=== PATIENT | male | born 1940 | race Caucasian/White ===

== ENCOUNTER → 2017-06-17 12:11 | Outpatient (CLI) | payer MEDICARE, OTHER, SELFPAY ==
--- NOTE | 2017-06-17 12:16 | RAD_ITS ---
STUDY: X-RAY - RIGHT HAND REASON FOR EXAM: Male, 76 years old. Swelling, redness TECHNIQUE: 3 view(s) of the hand. COMPARISON: None. FINDINGS: The bones are demineralized. Normal distal radioulnar joint. Normal visualized carpal bones. Normal carpal articulations Normal carpometacarpal articulation of the thumb. Normal second through fifth carpometacarpal joints. Normal metacarpi. There is soft tissue swelling at the metacarpal phalangeal joint of the thumb. Normal interphalangeal joint of the thumb. Normal proximal and distal phalanges of the thumb. Normal metacarpophalangeal joints of the second through fifth fingers. Normal proximal and distal interphalangeal joints of the second through fifth fingers. There is a small bony erosion at the base of the proximal third phalanx. There may be a small erosion along the radial and distal aspect of the proximal third phalanx. Mild joint space narrowing is seen within the interphalangeal joints. There is soft tissue swelling of the third digit. RAD/Hand Min 3 Views IMPRESSION: Osteopenia without acute fracture. Findings suggest erosive arthropathy within the third finger. Mild interphalangeal joint space narrowing. Electronically Signed: Trung Gonzalez DO at 11:37 EDT Tel , Service support ,
== END ==
PROVIDERS: Family Provider Internal Medicine; PCP Internal Medicine; Visit Provider Internal Medicine
DX: M79.641 Pain in right hand (principal)
CPT/HCPCS: 73130

== ENCOUNTER → 2017-06-24 09:52 | Outpatient (CLI) | payer MEDICARE, OTHER, SELFPAY ==
--- NOTE | 2017-06-24 09:54 | NM_ITS ---
CLINICAL: 76-year-old male with reported history of elevation of the serum parathyroid hormone level. 99m Tc SESTAMIBI DUAL PHASE PARATHYROID SCINTIGRAPHY COMPARISON: None available FINDINGS: Following the intravenous administration of 25.4 mCi of 99m Tc sestamibi, image acquisitions of the anterior neck at approximately 15 minutes and 2.0 hours post radiopharmaceutical provision reveal: 1. Immediate static blood pool acquisitions demonstrate visualization of the right-left thyroid colloid in a U-shaped thyroid gland. A focus of increased tracer concentration is noted in the region of the right superior mediastinum caudal to the thyroid isthmus. 2. Delayed images depict washout of the radiopharmaceutical from the previously defined right-left thyroid colloid. There is persistent uptake noted. NM/Parathyroid Scan IMPRESSION: 1. 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 2. No other definitive scintigraphic abnormalities are defined. Electronically Signed: Rickie Mcelroy DO at 11:28 EDT Tel , Service support ,
== END ==
PROVIDERS: Family Provider Internal Medicine; PCP Internal Medicine; Visit Provider Internal Medicine
DX: E34.9 Endocrine disorder, unspecified (principal)
CPT/HCPCS: 78070; A9500

== ENCOUNTER → 2017-07-21 15:19 | Outpatient (CLI) | payer MEDICARE, OTHER, SELFPAY ==
[2017-07-21 17:49] LABS: Absolute Neutrophil Count 6.5 X10^3/uL (2.0-7.7); Basophil# 0.03 X10^3/uL; Basophil% 0.3 % (0-1); Eosinophil# 0.19 X10^3/uL; Eosinophils% 2.1 % (0-5); Hematocrit 42.6 % (40-54); Hemoglobin 13.6 g/dl (13.0-16.5); Lymphocyte % 14.4 % (19-41); Mean Corp Hgb Conc 31.9 g/gl (32-36); Mean Corpuscular Hgb 29.3 pg (27.0-32.0); Mean Corpuscular Volume 91.8 fL (80-94); Monocyte# 0.92 X10^3/uL; Monocyte% 10.2 % (0-10); Neutrophil # 6.54 X10^3/uL (2.7-7.7); Neutrophil % 72.7 % (47-70); Platelet Count 221 K/mm3 (150-450); RBC Distribution Width CV 14.7 % (11.6-14.6); RBC Distribution Width SD 48.2 fl (35.1-43.9); Red Blood Count 4.64 M/mm3 (4.6-6.2)
[2017-07-21 17:56] LABS: POSITIVE COUNT NO; POSITIVE DIFFERENTIAL NO; POSITIVE MORPHOLOGY NO
[2017-07-21 18:12] LABS: ALB/GLOB Ratio 0.9 RATIO (0.9-2.4); AST(SGOT) 19 U/L (15-37); Alanine Aminotransfer ALT/SGPT 20 U/L (16-61); Albumin, Serum 3.6 g/dL (3.2-5.0); Alkaline Phosphatase 90 U/L (45-117); Anion Gap 9 (5-15); BUN 23 mg/dL (7-18); BUN/Creat Ratio 15.6 RATIO (10-20); Calcium,Total 8.8 mg/dL (8.5-10.1); Chloride 106 mmol/L (98-107); Creatinine, Serum 1.47 mg/dL (0.70-1.30); EST Glomerular Filtration Rate 50 mL/min (>60); Est Glom Filt Rate - Afr Amer 60 mL/min (>60); Globulin 3.9 g/dL (2.2-4.2); Glucose 104 mg/dL (74-106); Potassium 3.6 mmol/L (3.5-5.1); Protein, Total 7.5 g/dL (6.4-8.2); Rheumatoid Factor < 10.0 IU/mL (<15); Sodium Level 143 mmol/L (136-145); Uric Acid 10.7 mg/dL (3.5-7.2)
[2017-07-21 18:39] LABS: Erythrocyte Sedimentation Rate 18 mm/hr (0-20)
[2017-07-24 13:20] LABS: CCP IgG Antibodies 8 units (0-19); HEPATITIS B SURFACE AG Negative (Negative); Hep B Surface Antibodies Non Reactive (.); Hep C Antibodies <0.1 s/co ratio (0.0-0.9)
== END ==
PROVIDERS: Family Provider Internal Medicine; PCP Internal Medicine; Visit Provider Internal Medicine Rheumatology
DX: M06.4 Inflammatory polyarthropathy (principal); M1A.9XX1 Chronic gout, unspecified, with tophus (tophi); N18.9 Chronic kidney disease, unspecified; I25.10 Atherosclerotic heart disease of native coronary artery without angina pectoris; I50.20 Unspecified systolic (congestive) heart failure; I48.91 Unspecified atrial fibrillation; I12.9 Hypertensive chronic kidney disease with stage 1 through stage 4 chronic kidney disease, or unspecified chronic kidney disease; E78.5 Hyperlipidemia, unspecified; N40.1 Benign prostatic hyperplasia with lower urinary tract symptoms; I69.30 Unspecified sequelae of cerebral infarction; M15.9 Polyosteoarthritis, unspecified; M21.40 Flat foot [pes planus] (acquired), unspecified foot; Z95.1 Presence of aortocoronary bypass graft
CPT/HCPCS: 36415; 80053; 84550; 85025; 85652; 86140; 86200; 86431; 86706; 86803; 87340

== ENCOUNTER → 2017-08-20 15:21 | Outpatient (CLI) | payer MEDICARE, OTHER, SELFPAY ==
--- NOTE | 2017-08-20 15:25 | RAD_ITS ---
STUDY: X-RAY - RIGHT HAND REASON FOR EXAM: Male, 76 years old. Pain TECHNIQUE: 3 view(s) of the hand. COMPARISON: FINDINGS: The bones are demineralized. Normal distal radioulnar joint. Normal visualized carpal bones. Normal carpal articulations Normal carpometacarpal articulation of the thumb. Normal second through fifth carpometacarpal joints. Normal metacarpi. There is soft tissue swelling at the metacarpal phalangeal joint of the thumb. Normal interphalangeal joint of the thumb. Normal proximal and distal phalanges of the thumb. Normal metacarpophalangeal joints of the second through fifth fingers. Normal proximal and distal interphalangeal joints of the second through fifth fingers. There is a small bony erosion at the base of the proximal third phalanx. There may be a small erosion along the radial and distal aspect of the proximal third phalanx. Mild joint space narrowing is seen within the interphalangeal joints. There is soft tissue swelling of the third digit. There is little significant interval change since the previous study. The degenerative changes are slightly more severe in the left hand and wrist than the right. RAD/Hand Min 3 Views IMPRESSION: Osteopenia without acute fracture. Findings suggest erosive arthropathy within the third finger. Mild interphalangeal joint space narrowing. Electronically Signed: Lalo Crisostomo MD at 10:08 EDT , Service support ,
--- NOTE | 2017-08-20 15:25 | RAD_ITS ---
STUDY: X-RAY - LEFT HAND REASON FOR EXAM: Male, 76 years old. Pain and swelling, decreased range of motion TECHNIQUE: 3 view(s) of the hand. COMPARISON: None. FINDINGS: There is joint space narrowing of the radiocarpal articulation consistent with degenerative arthrosis. Normal distal radioulnar joint. There is diffuse demineralization of the carpal bones. There is mild intracarpal arthrosis. There is degenerative arthrosis of the carpometacarpal (CMC) articulation of the thumb. Normal second through fifth carpometacarpal joints. Normal metacarpi. There is degenerative arthrosis of the metacarpophalangeal (MCP) joints. There is moderate arthrosis of the interphalangeal joint of the thumb with subchondral erosions on both the proximal and distal phalanges. Moderate to severe PIP and DIP joint arthrosis in the second to the fifth fingers. All joint spaces show subchondral erosions on both sides of the joint space, most affected joint spaces include the DIP joint of the third digit, and PIP joint of the fifth digit. No demonstrated fracture, or suspicious soft tissue swelling. RAD/Hand Min 3 Views IMPRESSION: Polyarticular arthrosis as described, most affected joint spaces include the interphalangeal joint of the thumb, the DIP joint of the third digit, and PIP joint of the fifth finger. Electronically Signed: Lalo Crisostomo MD at 10:07 EDT , Service support ,
--- NOTE | 2017-08-20 15:25 | RAD_ITS ---
STUDY: X-RAY - RIGHT KNEE REASON FOR EXAM: Male, 76 years old. Pain TECHNIQUE: 4 view(s) of the knee. COMPARISON: None. FINDINGS: There is demineralization of the visualized distal femur. There is demineralization of the tibia and fibula. Normal proximal tibiofibular articulation. There is severe degenerative arthrosis of the medial femorotibial compartment with severe joint space narrowing. There is mild degenerative arthrosis of the lateral femorotibial compartment. There is moderate degenerative arthrosis of the patellofemoral articulation. Postsurgical changes noted in the medial soft tissues, likely from vein harvest. RAD/Knee 4 or More Views IMPRESSION: Degenerative arthrosis. Electronically Signed: Lalo Crisostomo MD at 10:09 EDT , Service support ,
--- NOTE | 2017-08-20 15:25 | RAD_ITS ---
STUDY: X-RAY - LEFT KNEE REASON FOR EXAM: Male, 76 years old. Pain, decreased range of motion TECHNIQUE: 4 view(s) of the knee. COMPARISON: 12/08/2016 FINDINGS: Normal visualized distal femur. Normal visualized proximal tibia and fibula. Normal proximal tibiofibular articulation. There is moderate to severe degenerative arthrosis of the medial femorotibial compartment with moderate joint space narrowing. There is mild degenerative arthrosis of the lateral femorotibial compartment. There is moderate degenerative arthrosis of the patellofemoral articulation. Mild soft tissue swelling. RAD/Knee 4 or More Views IMPRESSION: Degenerative arthrosis. Electronically Signed: Lalo Crisostomo MD at 10:12 EDT , Service support ,
== END ==
PROVIDERS: Family Provider Internal Medicine; PCP Internal Medicine; Visit Provider Internal Medicine Rheumatology
DX: M06.4 Inflammatory polyarthropathy (principal); M1A.9XX1 Chronic gout, unspecified, with tophus (tophi); I25.10 Atherosclerotic heart disease of native coronary artery without angina pectoris; Z95.1 Presence of aortocoronary bypass graft; I50.20 Unspecified systolic (congestive) heart failure; I48.91 Unspecified atrial fibrillation; I10 Essential (primary) hypertension; E78.5 Hyperlipidemia, unspecified; N40.1 Benign prostatic hyperplasia with lower urinary tract symptoms; I69.30 Unspecified sequelae of cerebral infarction; M15.9 Polyosteoarthritis, unspecified; M21.40 Flat foot [pes planus] (acquired), unspecified foot
CPT/HCPCS: 73130; 73564

== ENCOUNTER → 2017-10-19 15:36 | Outpatient (CLI) | payer MEDICARE, OTHER, SELFPAY ==
[2017-10-19 18:08] LABS: Basophil# 0.04 X10^3/uL; Basophil% 0.6 % (0-1); Eosinophil# 0.24 X10^3/uL; Eosinophils% 3.7 % (0-5); Hematocrit 40.1 % (40-54); Hemoglobin 13.1 g/dl (13.0-16.5); Lymphocyte % 21.8 % (19-41); Mean Corp Hgb Conc 32.7 g/gl (32-36); Mean Corpuscular Volume 91.8 fL (80-94); Monocyte# 0.69 X10^3/uL; Monocyte% 10.7 % (0-10); Neutrophil # 4.04 X10^3/uL (2.7-7.7); Platelet Count 167 K/mm3 (150-450); RBC Distribution Width CV 13.5 % (11.6-14.6); RBC Distribution Width SD 44.5 fl (35.1-43.9); Red Blood Count 4.37 M/mm3 (4.6-6.2); White Blood Count 6.4 K/mm3 (4.4-11.0)
[2017-10-19 18:17] LABS: ALB/GLOB Ratio 0.9 RATIO (0.9-2.4); AST(SGOT) 21 U/L (15-37); Alanine Aminotransfer ALT/SGPT 23 U/L (16-61); Albumin, Serum 3.5 g/dL (3.2-5.0); Alkaline Phosphatase 97 U/L (45-117); Anion Gap 8 (5-15); BUN 26 mg/dL (7-18); BUN/Creat Ratio 15.3 RATIO (10-20); Calcium,Total 8.5 mg/dL (8.5-10.1); Chloride 102 mmol/L (98-107); EST Glomerular Filtration Rate 42 mL/min (>60); Est Glom Filt Rate - Afr Amer 51 mL/min (>60); Globulin 3.8 g/dL (2.2-4.2); Glucose 145 mg/dL (74-106); Potassium 3.7 mmol/L (3.5-5.1); Protein, Total 7.3 g/dL (6.4-8.2); Sodium Level 140 mmol/L (136-145); Uric Acid 9.1 mg/dL (3.5-7.2)
[2017-10-19 18:20] LABS: POSITIVE COUNT NO; POSITIVE DIFFERENTIAL NO; POSITIVE MORPHOLOGY NO
== END ==
PROVIDERS: Family Provider Internal Medicine; PCP Internal Medicine; Visit Provider Internal Medicine Rheumatology
DX: M06.4 Inflammatory polyarthropathy (principal); M1A.9XX1 Chronic gout, unspecified, with tophus (tophi); I13.0 Hypertensive heart and chronic kidney disease with heart failure and stage 1 through stage 4 chronic kidney disease, or unspecified chronic kidney disease; N18.9 Chronic kidney disease, unspecified; I50.20 Unspecified systolic (congestive) heart failure; I25.10 Atherosclerotic heart disease of native coronary artery without angina pectoris; I48.91 Unspecified atrial fibrillation; E78.5 Hyperlipidemia, unspecified; N40.1 Benign prostatic hyperplasia with lower urinary tract symptoms; I69.30 Unspecified sequelae of cerebral infarction; M15.9 Polyosteoarthritis, unspecified; M21.40 Flat foot [pes planus] (acquired), unspecified foot
CPT/HCPCS: 36415; 80053; 84550; 85025

== ENCOUNTER → 2017-12-02 15:45 | Outpatient (CLI) | payer MEDICARE, OTHER, SELFPAY ==
[2017-12-02 17:39] LABS: Absolute Lymphocyte Count 1.37 X10^3/ul (0.83-4.51); Absolute Neutrophil Count 4.9 X10^3/uL (2.0-7.7); Basophil# 0.03 X10^3/uL; Basophil% 0.4 % (0-1); Eosinophil# 0.21 X10^3/uL; Eosinophils% 2.9 % (0-5); Hematocrit 40.5 % (40-54); Hemoglobin 12.9 g/dl (13.0-16.5); Lymphocyte # 1.37 X10^3/ul (4.0); Lymphocyte % 19.2 % (19-41); Mean Corp Hgb Conc 31.9 g/gl (32-36); Mean Corpuscular Hgb 29.7 pg (27.0-32.0); Mean Corpuscular Volume 93.3 fL (80-94); Mean Platelet Vol. 10.7 fl (6.2-12.0); Monocyte# 0.65 X10^3/uL; Monocyte% 9.1 % (0-10); Neutrophil # 4.86 X10^3/uL (2.7-7.7); Neutrophil % 68.1 % (47-70); Platelet Count 179 K/mm3 (150-450); RBC Distribution Width CV 14.7 % (11.6-14.6); RBC Distribution Width SD 50.5 fl (35.1-43.9); Red Blood Count 4.34 M/mm3 (4.6-6.2); White Blood Count 7.1 K/mm3 (4.4-11.0)
[2017-12-02 17:49] LABS: POSITIVE COUNT NO; POSITIVE DIFFERENTIAL NO; POSITIVE MORPHOLOGY NO
[2017-12-02 18:09] LABS: ALB/GLOB Ratio 0.9 RATIO (0.9-2.4); AST(SGOT) 20 U/L (15-37); Alanine Aminotransfer ALT/SGPT 21 U/L (16-61); Albumin, Serum 3.6 g/dL (3.2-5.0); Alkaline Phosphatase 108 U/L (45-117); Anion Gap 12 (5-15); BUN 27 mg/dL (7-18); BUN/Creat Ratio 16.6 RATIO (10-20); Calcium,Total 8.7 mg/dL (8.5-10.1); Chloride 104 mmol/L (98-107); Creatinine, Serum 1.63 mg/dL (0.70-1.30); EST Glomerular Filtration Rate 44 mL/min (>60); Est Glom Filt Rate - Afr Amer 53 mL/min (>60); Globulin 3.8 g/dL (2.2-4.2); Glucose 108 mg/dL (74-106); Potassium 3.6 mmol/L (3.5-5.1); Protein, Total 7.4 g/dL (6.4-8.2); Sodium Level 142 mmol/L (136-145); Uric Acid 9.2 mg/dL (3.5-7.2)
== END ==
PROVIDERS: Family Provider Internal Medicine; PCP Internal Medicine; Visit Provider Internal Medicine Rheumatology
DX: M06.4 Inflammatory polyarthropathy (principal); M1A.9XX1 Chronic gout, unspecified, with tophus (tophi); I25.10 Atherosclerotic heart disease of native coronary artery without angina pectoris; I50.20 Unspecified systolic (congestive) heart failure; I48.91 Unspecified atrial fibrillation; I10 Essential (primary) hypertension; E78.5 Hyperlipidemia, unspecified; N40.1 Benign prostatic hyperplasia with lower urinary tract symptoms; I69.30 Unspecified sequelae of cerebral infarction; M21.40 Flat foot [pes planus] (acquired), unspecified foot
CPT/HCPCS: 36415; 80053; 84550; 85025

== ENCOUNTER → 2018-03-04 16:10 | Outpatient (CLI) | payer MEDICARE, OTHER, SELFPAY ==
[2018-03-04 17:11] LABS: Absolute Lymphocyte Count 0.99 X10^3/ul (0.83-4.51); Absolute Neutrophil Count 4.4 X10^3/uL (2.0-7.7); Basophil# 0.02 X10^3/uL; Basophil% 0.3 % (0-1); Eosinophil# 0.25 X10^3/uL; Hemoglobin 13.7 g/dl (13.0-16.5); Lymphocyte # 0.99 X10^3/ul (4.0); Lymphocyte % 15.8 % (19-41); Mean Corp Hgb Conc 31.9 g/gl (32-36); Mean Corpuscular Hgb 30.7 pg (27.0-32.0); Mean Corpuscular Volume 96.4 fL (80-94); Mean Platelet Vol. 10.8 fl (6.2-12.0); Monocyte# 0.61 X10^3/uL; Monocyte% 9.7 % (0-10); Neutrophil # 4.37 X10^3/uL (2.7-7.7); Neutrophil % 69.7 % (47-70); POSITIVE COUNT NO; POSITIVE DIFFERENTIAL NO; POSITIVE MORPHOLOGY NO; Platelet Count 202 K/mm3 (150-450); RBC Distribution Width CV 14.3 % (11.6-14.6); RBC Distribution Width SD 48.9 fl (35.1-43.9); Red Blood Count 4.46 M/mm3 (4.6-6.2); White Blood Count 6.3 K/mm3 (4.4-11.0)
[2018-03-04 17:28] LABS: AST(SGOT) 25 U/L (15-37); Alanine Aminotransfer ALT/SGPT 34 U/L (16-61); Albumin, Serum 3.6 g/dL (3.2-5.0); Alkaline Phosphatase 113 U/L (45-117); Anion Gap 9 (5-15); BUN 26 mg/dL (7-18); Calcium,Total 8.2 mg/dL (8.5-10.1); Chloride 102 mmol/L (98-107); Creatinine, Serum 1.53 mg/dL (0.70-1.30); EST Glomerular Filtration Rate 47 mL/min (>60); Est Glom Filt Rate - Afr Amer 57 mL/min (>60); Globulin 3.7 g/dL (2.2-4.2); Glucose 147 mg/dL (74-106); Potassium 3.3 mmol/L (3.5-5.1); Protein, Total 7.3 g/dL (6.4-8.2); Sodium Level 141 mmol/L (136-145); Uric Acid 7.7 mg/dL (3.5-7.2)
[2018-03-04 17:31] LABS: PTHIN 156.2 pg/mL (18.4-80.1)
[2018-03-04 17:32] LABS: Vitamin D,25 Hydroxy 22.6 ng/mL (29.95-100.01)
--- OUTSIDE RECORDS SUMMARY | 2018-04-29 15:44 | XMS RPT_ITS | Continuity of Care Document ---
:1940 Author Organization [facility] Address [facility] [address] [place] [address] Phone Care Team Providers Name Role Phone Neil DO Vicki Unavailable Milagro PHAN, Dr. Mohsen Mckenna Unavailable Physical [facility], [facility] Unavailable Lesa Alvarado Unavailable Dr. Juan Sin DO Unavailable [facility] Unavailable Kimo Roger MD Unavailable Mata Leonard Unavailable [facility] Unavailable Kamaljit PHAN, Dr. Joan Arechiga Unavailable CARYL Fonseca Unavailable Unavailable Long Minda HUTSON Unavailable Unavailable Israel Nelson Unavailable Unavailable Michel Heredia Unavailable Unavailable Unavailable Unavailable Problems Name Dates Details Abnormal brain MRI (793.0) Comments: possible aneurysm // also possible TIA-- pt on BB watch blood pressure diaries Status: Active Abnormal lung sounds (R09.89, 786.7) Status: Active Actinic keratosis (L57.0, 702.0) Status: Active Acute on chronic systolic heart failure (I50.23, 428.23) Comments: with anasarcaCheck daily weights.I/O on fluiddry weight 220 lbs at homeweight is 223 lbs today, was 219 lbs 2 days ago(Per pt he was not weighed) Status: Active Acute systolic congestive heart failure (I50.21, 428.21) Comments: echo 04/20 -- EF 40% and mild mitral insufficiency Status: Active AK (actinic keratosis) (L57.0, 702.0) Status: Active Annual Medicare Phyiscal WITHOUT abnormal findings (Renamed from Encounter for general adult medical examination without abnormal findings) (Z00.00, V70.9) Status: Active Annual Medicare Physical WITH abnormal findings (Renamed from Encounter for general adult medical examination with abnormal findings) (Z00.01, V70.0) Status: Active Apnea (R06.81, 786.03) Status: Active Atherosclerosis of [place] coronary artery without angina pectoris, unspecified whether [place] or transplanted heart (I25.10, 414.01) Status: Active Atrial fibrillation, chronic (I48.2, 427.31) Comments: rate controlled Status: Active Atrial fibrillation, unspecified type (I48.91, 427.31) Comments: rate controlledCABGX3, dx 04/20, Admitted in hospital july for 2 weeks for Afib., Gin: cardiovereted X1 in 07/19 for fluid on legs. 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) Comments: 10/17 last visit with surgeon and stents doing well-- took him off plavix Status: Active BMI 32.0-32.9,adult (Z68.32, V85.32) Status: Active BMI 34.0-34.9,adult (Z68.34, V85.34) Status: Active BMI 35.0-35.9,adult (Z68.35, V85.35) Status: Active BMI 35.0-35.9,adult (Z68.35, V85.35) Status: Active BPH (benign prostatic hyperplasia) (600.90) Status: Active BPH associated with nocturia (N40.1, 600.01) Status: Active Bronchitis (J40, 490) Status: Active Calculus of kidney (N20.0, 592.0) Status: Active Chronic anticoagulation (Z79.01, V58.61) Status: Active Chronic kidney disease, stage 3 (N18.3, 585.3) Status: Active 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, without long-term current use of insulin (E11.8, 250.90) Status: Active COPD, 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, 496) Comments: alpha one antitrypin defic screened 02/18 Status: Active Coronary artery disease, occlusive (I25.10, 414.00) Status: Active CVA (cerebral infarction) (434.91) Status: Active Diabetes mellitus without complication (Renamed from Diabetes mellitus with no complication) (E11.9, 250.00) Status: Active 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, 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) Status: Active Edema (R60.9, 782.3) Status: Active Edema extremities (R60.0, 782.3) Status: Active Elevated parathyroid hormone (E34.9, 259.9) Status: Active Elevated PSA (R97.20, 790.93) Status: Active Elevated PSA (R97.20, 790.93) Status: Active Encounter for Medicare annual wellness exam (Z00.00, V70.0) Status: Active Encounter for routine history and physical exam for male (Z00.00, V70.0) Status: Active Encounter for screening for malignant neoplasm of colon (Renamed from Special screening for malignant neoplasms, colon) (Z12.11, V76.51) Status: Active 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 (I13.0, 403.00) Status: Active Memory impairment (R41.3, 780.93) Comments: pt didnt want medication to slow progression Status: Active Mixed hyperlipidemia (E78.2, 272.2) Comments: past h/o not tolerating statins so doenst want to try another Status: Active Need for prophylactic vaccination and inoculation against influenza (Renamed from Need for immunization against influenza) (Z23, V04.81) Status: Active Need for vaccination against Streptococcus pneumoniae (Z23, V03.82) Status: Active Non morbid obesity, unspecified obesity type (E66.9, 278.00) Status: Active Nonsmoker (Z78.9, V49.89) Status: Active Nonsmoker (Z78.9, V49.89) Status: Active Nutritional counseling (Z71.3, V65.3) Status: Active Obesity, morbid (E66.01, 278.01) Status: Active Osteoarthritis of both knees, unspecified osteoarthritis type (M17.0, 715.96) Status: Active Other specified abnormal findings of blood chemistry (R79.89, 790.6) Comments: abn chemistry Status: Active Other urinary incontinence (N39.498, 788.39) Status: Active Pain in both knees, unspecified chronicity (M25.561, 719.46) Status: Active 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 not sure if dx valid -- dry tap and erosive oa on x-raydx yrs ago on tap it was dry -- no crystals to confirm but family h/o and dr told him they were going to make assumptions since dry tap Status: Active Renal insufficiency (N28.9, 593.9) Comments: stable for his chronic Status: Active Screening for prostate cancer (Z12.5, V76.44) Comments: due to see urology - dr mast/celine-- due jan 2018 Status: Active Shortness of breath on exertion (R06.02, 786.05) Status: Active Snores (R06.83, 786.09) Status: Active Swollen joint (M25.40, 719.00) Status: Active Therapeutic drug monitoring (Z51.81, V58.83) Status: Active Tonsillectomy Status: Active Unspecified Diagnosis Status: Active Unspecified Diagnosis Status: Active Unspecified Diagnosis Status: Active URI, acute (J06.9, 465.9) Status: Active Ventricular tachycardia (I47.2, 427.1) Status: Active Vitamin D deficiency (E55.9, 268.9) Comments: take vit D with K2 Status: Active Vitamin D deficiency, unspecified (E55.9, 268.9) 31-Jul-2010 Status: Active Medications Name Dates Details Bethanechol Chloride 50 MG Oral Tablet 2 (two) Tablet bid for 30 days Refills: 0 Ordered:02-Dec-2015 Fabiola Styles DO, DO, Kathleen Start : 02-Dec-2015 Active Cardizem CD 180 MG Oral Capsule Extended Release 24 Hour 1 (one) Capsule ER 24HR bid for 0 days Quantity: 180 {Capsule} Refills: 3 Ordered:28-Dec-2017 Fabiola Styles DO, DO, Kathleen Start : 28-Dec-2017 Active Cardizem CD 180 MG Oral Capsule Extended Release 24 Hour 1 (one) Capsule ER 24HR bid for 0 days Quantity: 60 {Capsule} Refills: 2 Ordered:28-Dec-2017 Fabiola Styles DO, DO, Kathleen Start : 28-Dec-2017 Active Citrical one daily Active Colchicine 0.5 MG Oral Tablet one daily (0.5 MG) Active Eliquis 2.5 MG Oral Tablet 1 (one) Tablet bid for 90 days Quantity: 180 {Tablet} Refills: 0 Ordered:30-Nov-2016 Fabiola Styles DO, DO, Kathleen Start : 30-Nov-2016 Active Fluticasone Propionate 50 MCG/ACT Nasal Suspension 2 (two) Sprays Sprays each nostril qd for 0 days Quantity: 1 {Container} Refills: 3 Ordered:02-Dec-2015 Fabiola Styles DO, DO, Kathleen Start : 02-Dec-2015 Active Lasix 40 MG Oral Tablet 1 (one) Tablet bid for 90 days Quantity: 180 {Tablet} Refills: 3 Ordered:28-Feb-2018 Fabiola Styles DO, DO, Kathleen Start : 28-Feb-2018 Active Lasix 40 MG Oral Tablet 1 (one) Tablet bid for 7 days Quantity: 14 {Tablet} Refills: 0 Ordered:28-Feb-2018 Fabiola Styles DO, DO, Kathleen Start : 28-Feb-2018 Active Lopressor 100 MG Oral Tablet 1 Tablet bid for 90 days Quantity: 180 {Tablet} Refills: 2 Ordered:28-Feb-2018 Jennyfer Arcos Start : 28-Feb-2018 Active Lopressor 100 MG Oral Tablet 1 Tablet bid for 0 days Quantity: 60 {Tablet} Refills: 3 Ordered:28-Feb-2018 Jennyfer Arcos Start : 28-Feb-2018 Active MetFORMIN HCl ER 500 MG Oral Tablet Extended Release 24 Hour 1 Tablet ER 24HR bid for 0 days Quantity: 60 {Tablet} Refills: 3 Ordered:17-Jun-2017 Fabiola Styles DO, DO, Kathleen Start : 17-Jun-2017 Active PROSCAR, 5MG (Oral Tablet) 1 (one) Tablet qd for 30 days Refills: 0 Ordered:24-Apr-2015 Fabiola Styles DO, DO, Kathleen Start : 24-Apr-2015 Active Tamsulosin HCl 0.4 MG Oral Capsule one daily (0.4 MG) Active Comments:[facility] AUGMENTIN, 875-125MG (Oral Tablet) 1 (one) Tablet bid for 0 days Quantity: 20 {Tablet} Refills: 0 Ordered:24-Apr-2015 Leora Fonseca LPN Start : 18-Apr-2015 End : 24-Apr-2015 Inactive MARINA, 10-40MG (Oral Tablet) 1 Tablet qd for 0 days Quantity: 90 {Tablet} Refills: 3 Ordered:23-Sep-2015 Fide Bell Start : 03-Sep-2014 End : 23-Sep-2015 Inactive MARINA, 10-40MG (Oral Tablet) 1 Tablet qd for 0 days Quantity: 30 {Tablet} Refills: 6 Ordered:23-Sep-2015 Fide Bell Start : 03-Sep-2014 End : 23-Sep-2015 Inactive BETHANECHOL CHLORIDE, 25MG (Oral Tablet) 1 (one) Tablet tid for 30 days Refills: 0 Ordered:24-Apr-2015 Leora Fonseca LPN Start : 23-Nov-2013 End : 24-Apr-2015 Inactive BYSTOLIC, 20MG (Oral Tablet) 1 Tablet qd for 90 days Quantity: 90 {Tablet} Refills: 3 Ordered:22-Aug-2015 Leora Fonseca LPN Start : 06-May-2015 End : 22-Aug-2015 Inactive Cardura XL 4 MG Oral Tablet Extended Release 24 Hour 1 Tablet ER 24HR qd for 30 days Quantity: 30 {Tablet} Refills: 6 Ordered:17-Jun-2017 Fabiola Styles DO, DO, Kathleen Start : 17-Jun-2017 End : 17-Jun-2017 Inactive Comments:on national back order DRISDOL, [id number] (Oral Capsule) 1 Capsule uad for 0 days Quantity: 8 {Capsule} Refills: 4 Ordered:21-Jan-2012 Leora Fonseca LPN Start : 31-Jul-2010 End : 21-Jan-2012 Inactive Comments:2 tabs q week x 4 mo and then 1 tab weekly ERGOCALCIFEROL, [id number] (Oral Capsule) 1 (one) Capsule tad for 0 days Quantity: 12 {Capsule} Refills: 1 Ordered:16-Oct-2009 Crystal Reyes Start : 28-Dec-2007 Inactive Comments:1 tab 2 x week for 2 weeks then 1 tab weekly for 8 weeks FLOMAX, 0.4MG (Oral Capsule) 1 Capsule bid for 30 days Quantity: 60 {Capsule} Refills: 3 Ordered:22-Aug-2015 Leora Fonseca LPN Start : 31-May-2015 End : 22-Aug-2015 Inactive GUAIATUSSIN AC, 100-10MG/5ML (Oral Syrup) 1 Syrup QHS / HS for 0 days Quantity: 90 {Syrup} Refills: 0 Ordered:24-Mar-2007 Crystal Reyes Start : 24-Mar-2007 End : 04-May-2007 Inactive HYDRALAZINE-HCTZ, 25-25MG (PO Tab) for 0 days Refills: 0 Ordered:16-May-2008 Crystal Reyes End : 27-Jan-2007 Inactive GORDO, 0.5-0.4MG (Oral Capsule) 1 Capsule qd for 0 days Quantity: 30 {Capsule} Refills: 6 Ordered:24-Apr-2015 Leora Fonseca LPN Start : 14-Feb-2013 End : 24-Apr-2015 Inactive LASIX, 20MG (Oral Tablet) 1 Tablet qd prn only for 0 days Quantity: 15 {Tablet} Refills: 0 Ordered:18-Apr-2015 Leora Fonseca LPN Start : 15-May-2013 End : 18-Apr-2015 Inactive LEVAQUIN, 500MG (Oral Tablet) 1 Tablet daily for 0 days Quantity: 10 {Tablet} Refills: 0 Ordered:19-Oct-2013 Minda Rojas LPN Start : 24-Aug-2013 End : 19-Oct-2013 Inactive LEVAQUIN, 750MG (Oral Tablet) 1 (one) Tablet Daily for 0 days Quantity: 5 {Tablet} Refills: 0 Ordered:19-Mar-2009 Leora Fonseca LPN Start : 19-Mar-2009 End : 25-Mar-2009 Inactive LOSARTAN POTASSIUM, 100MG (Oral Tablet) 1 (one) Tablet qd for 30 days Refills: 0 Ordered:22-Aug-2015 Leora Fonseca LPN Start : 24-Apr-2015 End : 22-Aug-2015 Inactive NASONEX, 50MCG/ACT (Nasal Suspension) 2 (two) Suspension each nostril daily for 0 days Quantity: 1 {Container} Refills: 0 Ordered:26-Jun-2015 Yoly Whitfield MD Start : 26-Jun-2015 End : 26-Jun-2015 Inactive NORVASC, 10MG (Oral Tablet) 1 (one) Tablet daily for 0 days Quantity: 30 {Tablet} Refills: 3 Ordered:14-Feb-2013 REILLY Moya Start : 21-Jan-2012 End : 14-Feb-2013 Inactive PLAVIX, 75MG (Oral Tablet) 1 Tablet qd for 0 days Quantity: 30 {Tablet} Refills: 6 Ordered:18-Apr-2015 Leora Fonseca LPN Start : 20-Mar-2013 End : 18-Apr-2015 Inactive PredniSONE 20 MG Oral Tablet 1 Tablet uad for 0 days Quantity: 9 {Tablet} Refills: 0 Ordered:09-Jul-2017 Leora Fonseca LPN Start : 21-Jun-2017 End : 09-Jul-2017 Inactive Comments:1 bid x 3 days and then 1 qd PROVENTIL HFA, 108 (90 Base)MCG/ACT (Inhalation Aerosol Solution) 2 (two) Aerosol Soln Twice daily for 0 days Quantity: 1 {Inhaler} Refills: 0 Ordered:24-Apr-2015 Leora Fonseca LPN Start : 24-Aug-2013 End : 24-Apr-2015 Inactive TEKTURNA, 150MG (Oral Tablet) 1 (one) Tablet Daily for 0 days Quantity: 30 {Tablet} Refills: 3 Ordered:16-Oct-2009 Crystal Reyes Start : 28-Dec-2007 Inactive TOPROL XL, 100MG (Oral Tablet Extended Release 24 Hour) 1 (one) Tablet ER 24HR QD for 0 days Quantity: 30 {Tablet_ER_24HR} Refills: 3 Ordered:19-Mar-2008 Crystal Reyes Start : 19-Mar-2008 End : 14-May-2008 Inactive VICODIN, 5-500MG (Oral Tablet) 1 Tablet q4-6 for 0 days Refills: 0 Ordered:21-Aug-2008 REILLY Moya Start : 21-Aug-2008 Inactive VITAMIN D3, [id number] (Oral Capsule) 1 Capsule 2 x week for 2 months then qweek for 0 days Quantity: 8 {Capsule} Refills: 5 Ordered:18-Apr-2015 Leora Fonseca LPN Start : 24-Aug-2013 End : 18-Apr-2015 Inactive WELCHOL, 625MG (Oral Tablet) 3 (three) Tablet bid for 0 days Quantity: 180 {Tablet} Refills: 3 Ordered:14-Feb-2013 REILLY Moya Start : 21-Jan-2012 End : 14-Feb-2013 Inactive ZETIA, 10MG (Oral Tablet) 1 (one) Tablet daily for 0 days Quantity: 30 {Tablet} Refills: 6 Ordered:18-Apr-2015 Leora Fonseca LPN Start : 20-Mar-2013 End : 18-Apr-2015 Inactive Dispense as Written ZOCOR, 20MG (Oral Tablet) 1 (one) Tablet QD for 0 days Quantity: 30 {Tablet} Refills: 0 Ordered:14-Feb-2013 REILLY Moya Start : 18-Jul-2012 End : 14-Feb-2013 Inactive Advair HFA 115-21 MCG/ACT Inhalation Aerosol 1 (one) Aerosol Aerosol bid for 0 days Quantity: 1 {Inhaler} Refills: 3 Ordered:04-Jun-2017 Sharon Wong Start : 04-Mar-2016 End : 04-Jun-2017 Discontinued ATORVASTATIN CALCIUM, 80MG (Oral Tablet) 1 Tablet qd for 0 days Quantity: 30 {Tablet} Refills: 6 Ordered:20-Mar-2013 Fabiola Styles DO, DO, Kathleen Start : 20-Mar-2013 End : 20-Mar-2013 Discontinued Comments:muscle aches AVAPRO, 300MG (Oral Tablet) 1 (one) Tablet QD for 0 days Refills: 0 Ordered:16-May-2008 Crystal Reyes Start : 01-Jan-2006 End : 27-Jan-2007 Discontinued Cordarone 200 MG Oral Tablet 1 (one) Tablet Tablet qd for 30 days Quantity: 30 {Tablet} Refills: 3 Ordered:04-Mar-2016 Fabiola Styles DO, DO, Kathleen Start : 04-Mar-2016 End : 04-Jun-2017 Discontinued Comments:This order discontinued per [facility]. DIOVAN HCT, 320-25MG (Oral Tablet) 1 (one) Tablet daily for 0 days Quantity: 30 {Tablet} Refills: 3 Ordered:05-Aug-2011 Fabiola Styles DO, DO, Kathleen Start : 05-Aug-2011 End : 05-Aug-2011 Discontinued Comments:jt pain ELIQUIS, 5MG (Oral Tablet) 1 (one) Tablet bid for 30 days Refills: 0 Ordered:25-Jul-2015 Fabiola Styles DO, DO, Kathleen Start : 25-Jul-2015 End : 25-Jul-2015 Discontinued GlipiZIDE ER 2.5 MG Oral Tablet Extended Release 24 Hour 1 (one) Tablet ER 24HR Tablet ER 24HR qd for 0 days Quantity: 90 {Tablet} Refills: 3 Ordered:04-Jun-2017 Sharon Wong Start : 30-Apr-2016 End : 04-Jun-2017 Discontinued HYDROCHLOROTHIAZIDE, 25MG (Oral Tablet) 1 (one) Tablet daily for 0 days Quantity: 30 {Tablet} Refills: 6 Ordered:20-Mar-2013 Fabiola Styles DO, DO, Kathleen Start : 20-Mar-2013 End : 20-Mar-2013 Discontinued Jardiance 10 MG Oral Tablet 1 (one) Tablet qd for 0 days Quantity: 30 {Tablet} Refills: 3 Ordered:17-Jun-2017 Neil Fabiola NG DO, Kathleen Start : 17-Jun-2017 End : 17-Jun-2017 Discontinued K-DUR, 10MEQ (Oral Tablet Extended Release) 1 (one) Tablet ER Daily for 0 days Quantity: 30 {Tablet_ER} Refills: 6 Ordered:04-Jul-2015 Leora Fonseca LPN Start : 04-Jul-2015 End : 22-Aug-2015 Discontinued Comments:This order discontinued per [facility]. LOTREL, 10-20MG (Oral Capsule) 1 (one) Capsule QD for 0 days Refills: 0 Ordered:16-May-2008 Crystal Reyes Start : 11-Oct-2006 End : 27-Jan-2007 Discontinued Comments:hold for assessing cough LOVAZA, 1GM (Oral Capsule) 4 Capsule Daily for 0 days Quantity: 120 {Capsule} Refills: 4 Ordered:11-Jul-2009 Mast Darling KING Start : 11-Jul-2009 End : 11-Jul-2009 Discontinued MetOLazone 2.5 MG Oral Tablet 1 (one) Tablet Tablet qd for 0 days Quantity: 3 {Tablet} Refills: 0 Ordered:07-Jan-2016 Chely Smith LPN Start : 10-Oct-2015 End : 07-Jan-2016 Discontinued Comments:take 1/2 hr prior to lasix Nystatin [id number] UNIT/ML Mouth/Throat Suspension 5 cc cc swish and swallow 5times a day for 0 days Quantity: 250 {Milliliter} Refills: 0 Ordered:04-Jun-2017 Sharon Wong Start : 17-Jan-2016 End : 04-Jun-2017 Discontinued Spiriva Respimat 2.5 MCG/ACT Inhalation Aerosol Solution 1 (one) Aerosol Soln Aerosol Soln qd for 0 days Quantity: 1 {Inhaler} Refills: 3 Ordered:04-Jun-2017 Sharon Wong Start : 04-Mar-2016 End : 04-Jun-2017 Discontinued Allergies and Adverse Reactions Name Dates Details Aspirin (Salicylates) (Allergy) Status: Active Sulfa Drugs (Allergy) Status: Active Comments: joint pain, chills, fever, flu like sx. Vicodin-rash (Allergy) Status: Active Past Medical History Name Dates Details Abnormal blood chemistry (R79.9, 790.6) Comments: improving Status: Inactive as of 04-Mar-2016 Acute on chronic diastolic congestive heart failure (I50.33, 428.33) Status: Inactive as of 04-Mar-2016 Ascites (R18.8, 789.59) Status: Inactive as of 04-Jun-2016 Atrial fibrillation (I48.91, 427.31) Comments: rate controlled Status: Resolved as of 21-Jan-2012 Bilateral edema of lower extremity (R60.0, 782.3) Comments: chronic 0- wax and wane Status: Inactive as of 09-Nov-2016 BMI 33.0-33.9,adult (Z68.33, V85.33) Status: Inactive as of 09-Nov-2016 BMI 35.0-35.9,adult (Z68.35, V85.35) Status: Inactive as of 17-Jun-2017 BMI 36.0-36.9,adult (Z68.36, V85.36) Status: Inactive as of 09-Nov-2016 BMI 37.0-37.9, adult (Z68.37, V85.37) Status: Inactive as of 09-Nov-2016 Bradycardia (R00.1, 427.89) Status: Inactive as of 09-Nov-2016 Bronchitis, acute (J20.9, 466.0) Status: Resolved as of 17-Aug-2008 Calf pain (M79.669, 729.5) Comments: foot pain and swelling Status: Resolved as of 17-Aug-2008 Chest pain (R07.9, 786.59) Comments: sounds MS Status: Resolved as of 27-Sep-2006 Chronic obstructive pulmonary disease (J44.9, 496) Comments: 6 min walk test already set up for dec or january Status: Inactive as of 04-Mar-2016 Coronary atherosclerosis of [place]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 (I25.10, 414.01) Comments: other stent to be placed 6 mo after first one so that would be 10/16 Status: Inactive as of 04-Mar-2016 Cough (R05, 786.2) Status: Resolved as of 17-Aug-2008 Diabetes mellitus type 2, uncontrolled, without complications (E11.65, 250.02) Status: Inactive as of 04-Mar-2016 Elbow mass, left (R22.32, 719.62) Comments: Consider MRI left elbow,, pt is seeing Dr CANALES 10/25/15mass in left elbowX 10 years, getting bigger slightly.Doesnt hurt.Per pt has been evaluated by orthopedics 9 years ago and was told it bur sitis Status: Inactive as of 04-Jun-2016 Fluid overload (E87.70, 276.69) Status: Inactive as of 09-Nov-2016 Gout, unspecified (M10.9, 274.9) Status: Inactive as of 22-Apr-2012 Hand pain, right (M79.641, 729.5) Status: Inactive as of 06-Sep-2017 Hyperlipidemia (E78.5, 272.4) Status: Inactive as of 04-Mar-2016 Hypernatremia (E87.0, 276.0) Status: Inactive as of 09-Nov-2016 Hypertensive heart disease (I11.9, 402.90) Status: Inactive as of 18-Jul-2012 Irregular heart beat (I49.9, 427.9) Status: Inactive as of 09-Nov-2016 Knee pain (M25.569, 719.46) 07-Jan-2010 Status: Inactive as of 22-Apr-2012 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 (I13.0, 401.0) Comments: gave catapress today Status: Inactive as of 18-Apr-2015 Myalgia and myositis (729.1) Comments: THINKS SECONDARY TO ZOCORI THINK 2 PROB MAYBE ZOCOR AND OA WITH REACTIVE MUSCLE PULL- KNOWN KNEE PROBLEMS Status: Resolved as of 17-Aug-2008 Neoplasm of uncertain behavior of skin (D48.5, 238.2) Status: Inactive as of 22-Apr-2012 Pain of hand, unspecified laterality (M79.643, 729.5) Status: Inactive as of 14-Jun-2009 Post-nasal drainage (R09.82, 473.9) Status: Inactive as of 09-Nov-2016 Short of breath on exertion (R06.02, 786.05) Status: Inactive as of 09-Nov-2016 Shortness of breath at rest (R06.02, 786.05) Status: Inactive as of 22-Apr-2012 Therapeutic drug monitoring (Z51.81, V58.83) Status: Inactive as of 09-Nov-2016 Thrush (B37.0, 112.0) Status: Inactive as of 09-Nov-2016 Wheezing (R06.2, 786.07) Comments: reactive airways Status: Resolved as of 17-Aug-2008 Procedures Procedure Dates Details stent placement Completed Comments: 11/16 Date Value Details 13-Jan-2018 Cardiology Visit Report Result: Comments: See Note; NOTES: [facility] [address] [place] [address]. [address] [place] [address] OFFICE VISIT Date of Service: 01/13/18 MR#: [id number] Acct: [id number] Name: RAMU DEWITT Rep #: [id number] : 1940 Provider: Jimi Greenfield MD Age/Sex: 77/M Location: [facility] [place] Status: Signed HPI HPI Chief Complaint: Follow up visit Details: RAMU DEWITT, is a 77 M who presents to the [facility] today for a cardiovascular outpatient follow-up. Patient has a history of coronary artery disease with bypass surgery 2003. He had a VILLEDA to LAD, SVG to circumflex, and SVG to posterior descending artery. He also has a history of atrial fibrillation s/p unsuccessful cardioversion in 2016, ischemic cardiomyopathy, pulmonary hypertension, hyperlipidemia, congestive heart failure, and sleep apnea. H khoi says that overall this year he has been doing quite well his major problem is related to arthritis. He has had no neck arm or jaw discomfort suggest angina no dizziness or diaphoresis no near syncope or syncope. He has been compliant with all his medications. And his physical exam demonstrates clear lung mccann irregular regular heart rate and no pedal edema his blood pressure is under good control. Intake Vital Signs01/13/18 Height 5 ft 6 in 01/13/18 Weight: 224 lb 01/13/18 Body Mass Index (BMI) 36.1 01/13/18 Blood Pressure 128/70 H 01/13/18 Blood Pressure Location Lt brachial Intake Visit Re asons: 6 M FU Desk Top Publisher Required: No Accompanied by: none Is patient in pain?: No Allergies aspirin Allergy (Intermediate, Verified 01/13/18 09:57) Swelling around eyes acetaminophen [From Vicodin] Adverse Reaction (Severe, Verified 01/13/18 09:57) Rash hydrocodone [From Vicodin] Adverse Reaction (Severe, Verified 01/13/18 09:57) Rash pseudoephedrine [From Sudafed] Adverse Reaction (Severe, Verifi ed 01/13/18 09:57) Myalgias AND flu like symptoms simvastatin [From Zocor] Adverse Reaction (Severe, Verified 01/13/18 09:57) Myalgias Sulfa (Sulfonamide Antibiotics) Adverse Reaction (Mild, Verified 09:57) Severe Pain in joints Medications Finasteride [Proscar] 5 mg PO DAILY 04/18/15 [History Confirmed 06/14/17] Furosemide [Lasix] 40 mg PO BID 07/09/15 [History Confirmed 01/13/18] Acetami nophen [Tylenol Tablet] 650 mg PO Q6H PRN PRN #20 tab 07/16/15 [Rx Confirmed 01/13/18] Bethanechol Chloride [Urecholine] 50 mg PO BID 12/08/16 [History Confirmed 01/13/18] Metoprolol Tartrate [Lopressor (beta evelin)] 100 mg PO BID 12/08/16 [History Confirmed 01/13/18] Diltiazem CD [Cardizem CD] 180 mg PO Q12 #90 cap 12/12/16 [Rx Confirmed 01/13/18] apixaban 2.5 mg tablet 2.5 mg PO BID #14 tab [Rx Confirmed 01/13/18] allopurinol 300 mg tablet 300 mg PO DAILY 01/13/18 [History Confirmed 01/13/18] colchicine 0.6 mg tablet 0.6 mg PO .mwf tab 01/13/18 [History Confirmed 01/13/18] doxazosin 4 m g tablet 4 mg PO DAILY 01/13/18 [History Confirmed 01/13/18] PFSH Medical History Atherosclerosis of [place] coronary artery of [place] heart without ang hernán pectoris (Chronic) Mitral valve insufficiency (Chronic) Localized edema (Resolved) Bilateral pleural effusion (Resolved) History of stroke (Chronic) Acute on chronic systolic (congestive) heart fail ure (Chronic) Hyperlipidemia (Chronic) 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) Ischemic cardiomyopathy (Chronic) FH: sudden cardiac (SCD) (Chronic) 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 of premature coronary heart disease (Blogs Manager akhil) BPH with urinary obstruction (Chronic) Noncompliance (Chronic) Diabetes mellitus type 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 (Chronic) Venous insufficiency (Chronic) HTN (hypertension) (Chronic) Atrial fibrillation (Chronic) Cardiomyopathy, ischemic (Chronic) AUDRA (obstructive sleep apnea) (Chronic) Mitral regurgitation (Chronic) Morbid obesity (Chronic) Chronic renal failure, stage 3 (moderate) (Chronic) Left knee pain (Res olved) Old myocardial infarction (Resolved) Surgical History S/P CABG (coronary artery bypass graft) (Chronic) Family History (Reviewed 01/13/18 @ 10: 17 by Jimi Greenfield MD) Father Sudden cardiac Sister Heart disease Sudden cardiac Father Sudden cardiac Social History Smoking Status: Never smoker alcohol intake: current alcohol int rosalva frequency: a few times a week Alcohol type: beer, wine, hard liquor substance use type: does not use caffeine: Yes Type: coffee what type of physical activity do you participate in: none seatbelt us e: sometimes do you feel safe at home: Yes ROS Const Const: Negative for fatigue, weakness, night sweats, excessive sweating, frequent falls, headache(s) or daytime sleepiness Eyes Eyes: Negative fo r loss of peripheral vision, transient loss of vision, blind spots, double vision or blurry vision ENT ENT: Negative for headache(s), dizziness, balance problems, Nosebleed/epistaxis, tongue swelling or lip swelling Cardio Chest Pain: No Palpitations: No Edema: None Muscle aches with walking: None Resp Respiratory: Negative for SOB at rest, SOB orthopnea\SOB lying down, Cough, paroxysmal nocturnal dys pnea or SOB with activity GI GI: Negative nausea, vomiting, heartburn, black,tarry stools or bright, red blood in stools : Negative for hematuria Musc Musc: Negative for balance problems, muscle ac hes/ myalgia, muscle weakness or joint pain Skin Skin: Negative non-healing lesions, unusual bruising or rash Neuro Neuro: Negative for weakness, frequent falls, headache(s), double vision, dizziness, l ightheadedness, orthostatic symptoms, blurry vision or lack of coordination Chau Hematologic/Lymphatic: Negative for easy bruising or easy bleeding Endo Endo: Negative for fatigue, excessive sweating, c old intolerance, heat intolerance, increased thirst/drinking or hair loss Psych Psych: Negative for anxiety or depression Allergy Allergy/Immunology: Negative for throat swelling, Negative for tongue sw elling, Negative for hives, Negative for rash, Negative for lip swelling Cardiology Exam Const Appearance: cooperative, healthy appearing, well developed, well groomed and no acute distress Nutritiona l Appearance: well nourished and average body habitus Orientation: alert, awake and oriented x3 Head Head: normal to inspection, normocephalic and atraumatic Ears: hearing grossly normal bilaterally and external ears normal Nose: external nose normal, nasal mucous membranes and turbinates normal, nares normal, septum normal, no nasal discharge Face and Sinus: face symmetric Mouth: oral mucosae normal, tongue normal, oropharynx normal and moist mucous membranes Teeth and gingiva: dentition normal Throat: posterior oropharynx normal, tonsils normal and uvula midline Eyes General: appearance normal, scott th eyes and all related structures Eyelids: eyelids normal Conjunctivae: conjunctivae normal Pupils: PERRL, normal by confrontation and accommodation normal EOM: EOM intact bilaterally Neck Neck: normal visual inspection, trachea midline and no JVD JVD: +5 Carotids: normal carotid upstroke and bounding pulses Chest Chest inspection: normal inspection of the chest, symmetric chest movement and normal r espiratory effort Auscultation: Bilateral: Clear to Auscultation Cardio Palpation: normal PMI Rhythm: irregular rhythm Heart sounds: S1 normal and S2 normal GI GI: normal to inspection, soft, no hepatos plenomegaly and bowel sounds present Neuro General: alert, awake, oriented x3, no focal sensory deficit, gait normal and moves all extremities Skin Skin: no rashes or lesions noted Extremities Pulses: N ormal: Right Femoral Pulse, Left Femoral Pulse, Right Dorsalis Pedis Pulse, Left Dorsalis Pedis Pulse, Right Posterior Tibial Pulse, Left Posterior Tibial Pulse, Right Radial Pulse, Left Radial Pulse Lo wer Extremity Edema: None: Bilateral Musculoskel Musculoskeletal: No joint tenderness Psych Psychological: normal affect Assessment AND Plan 1. Ischemic cardiomyopathy I25.5 Plan He does have a histor y of ischemic cardiomyopathy with his last ejection fraction estimated at 40%. He does not appear to be in as much heart failure he remains on the beta- evelin as well as the diuretic which he seems to be tolerating quite well. No changes will be made. 2. Essential hypertension I10 Plan He does have a history of essential hypertension which appears to be well controlled on his current medical therapy I do not think that we need to make any changes at this particular time. 3. S/P CABG (coronary artery bypass graft) Z95.1 CABG X 3, VILLEDA to LAD, SVG to lateral CX, SVG to right PDA; Plan He is status post carotid bypass surgery. His most recent stress test in May 2015 was negative for stress-induced ischemia. My recommendation will be for us to continue him on the same medications without gina ng any changes. 4. Persistent atrial fibrillation I48.1 Plan He does have chronic persistent atrial for ablation with a controlled ventricular response rate he remains on beta-evelin and calcium chann el evelin which appears to be keeping him at an average heart rate and preventing him from going to heart failure. He remains anticoagulated on his factor X inhibitor. 5. Mixed hyperlipidemia E78.2 Pl an He does have a history of hyperlipidemia and will remain on no medications at this time. We will continue to monitor his lipid profile carefully. Plan Detail 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 (r) Coding Level of Care Code Off vis,est,level 3 Diagnoses Ischemic cardiomyopathy I25.5 Essential hypertension I10 Hypertension type: essential hypertension S/P CABG (coronary artery bypass graft) Z95.1 Persistent at rial fibrillation I48.1 Atrial fibrillation type: persistent Mixed hyperlipidemia E78.2 Hyperlipidemia type: mixed hyperlipidemia Coding Level of Care Code Off vis,est,level 3 Diagnoses Ischemic card iomyopathy I25.5 Essential hypertension I10 Hypertension type: essential hypertension S/P CABG (coronary artery bypass graft) Z95.1 Persistent atrial fibrillation I48.1 Atrial fibrillation type: persist ent Mixed hyperlipidemia E78.2 Hyperlipidemia type: mixed hyperlipidemia 01/13/18 1021 <Electronically signed by Jimi Greenfield MD> Date C marcie Greenfield MD Cosigner Signature: Date (if applicable) CC: Vicki Styles DO 20-Aug-2017 Hand Min 3 Views Result: Comments: See Note; NOTES: [facility] Imaging Services [address] [place] [address] Hand Min 3 Views MR#: [id number] Acct: [id number] Name: RAMU DEWITT Rep #: [id number] DO B: 1940 M 76 From: Andre Crisostomo MD PCP: Vicki Styles DO Status: REG CLI Study: Hand Min 3 Views Date of Exam: 08/20/17 Exam# [id number] Ordering Dr: Lesa Alvarado MD STUDY: X-RAY - LEFT HAND REASON FOR EXAM: Male, 76 years old. Pain and swelling, decreased range of motion TECHNIQUE: 3 view(s) of the hand. COMPARISON: None. FINDINGS: There is joint sp kameron narrowing of the radiocarpal articulation consistent with degenerative arthrosis. Normal distal radioulnar joint. There is diffuse demineralization of the carpal bones. There is mild intracarpal ar throsis. There is degenerative arthrosis of the carpometacarpal (CMC) articulation of the thumb. Normal second through fifth carpometacarpal joints. Normal metacarpi. There is degenerative arthrosis of the metacarpophalangeal (MCP) joints. There is moderate arthrosis of the interphalangeal joint of the thumb with subchondral erosions on both the proximal and distal phalanges. Moderate to severe PI P and DIP joint arthrosis in the second to the fifth fingers. All joint spaces show subchondral erosions on both sides of the joint space, most affected joint spaces include the DIP joint of the third d igit, and PIP joint of the fifth digit. No demonstrated fracture, or suspicious soft tissue swelling. RAD/Hand Min 3 Views IMPRESSION: Polyartic ular arthrosis as described, most affected joint spaces include the interphalangeal joint of the thumb, the DIP joint of the third digit, and PIP joint of the fifth finger. Electronically Signed: Daniel Crisostomo MD at 10:07 EDT , Service support , CC: Vicki Styles DO; Lesa Alvarado MD Hearing Aid Fitter: Signed 20-Aug-2017 Hand Min 3 Views Result: Comments: See Note; NOTES: [facility] Imaging Services [address] [place] [address] Hand Min 3 Views MR#: [id number] Acct: [id number] Name: RAMU DEWITT Rep #: [id number] DO B: 1940 M 76 From: Andre Crisostomo MD PCP: Vicki Styles DO Status: REG CLI Study: Hand Min 3 Views Date of Exam: 08/20/17 Exam# [id number] Ordering Dr: Lesa Alvarado MD STUDY: X-RAY - RIGHT CANO D REASON FOR EXAM: Male, 76 years old. Pain TECHNIQUE: 3 view(s) of the hand. COMPARISON: FINDINGS: The bones are demineralized. Normal distal radioulnar j oint. Normal visualized carpal bones. Normal carpal articulations Normal carpometacarpal articulation of the thumb. Normal second through fifth carpometacarpal joints. Normal metacarpi. There is sof t tissue swelling at the metacarpal phalangeal joint of the thumb. Normal interphalangeal joint of the thumb. Normal proximal and distal phalanges of the thumb. Normal metacarpophalangeal joints of the second through fifth fingers. Normal proximal and distal interphalangeal joints of the second through fifth fingers. There is a small bony erosion at the base of the proximal third phalanx. There may b e a small erosion along the radial and distal aspect of the proximal third phalanx. Mild joint space narrowing is seen within the interphalangeal joints. There is soft tissue swelling of the third digi t. There is little significant interval change since the previous study. The degenerative changes are slightly more severe in the left hand and wrist than the right. __ RAD/Hand Min 3 Views IMPRESSION: Osteopenia without acute fracture. Findings suggest erosive arthropathy within the third finger. Mild interphalangeal joint space narrowing. El ectronically Signed: Lalo Crisostomo MD at 10:08 EDT , Service support , CC: Vicki Styles DO; Lesa Alvarado MD Hearing Aid Fitter: Signed 20-Aug-2017 Knee 4 or More Views Result: Comments: See Note; NOTES: [facility] Imaging Services [address] [place] [address] Knee 4 or More Views MR#: [id number] Acct: [id number] Name: RAMU DEWITT Rep #: [id number] : 1940 [facility] From: Andre Crisostomo MD PCP: Vicki Styles DO Status: REG CLI Study: Knee 4 or More Views Date of Exam: 08/20/17 Exam# [id number] Ordering Dr: Lesa Alvarado MD STUDY: X-RAY - R IGHT KNEE REASON FOR EXAM: Male, 76 years old. Pain TECHNIQUE: 4 view(s) of the knee. COMPARISON: None. FINDINGS: There is demineralization of the visualized dist al femur. There is demineralization of the tibia and fibula. Normal proximal tibiofibular articulation. There is severe degenerative arthrosis of the medial femorotibial compartment with severe joint s pace narrowing. There is mild degenerative arthrosis of the lateral femorotibial compartment. There is moderate degenerative arthrosis of the patellofemoral articulation. Postsurgical changes noted in the medial soft tissues, likely from vein harvest. RAD/Knee 4 or More Views IMPRESSION: Degenerative arthrosis. Electronically Signed: Lalo Crisostomo MD at 10:09 EDT , Service support , CC: Vicki Styles DO; Lesa Alvarado MD Hearing Aid Fitter: Signed 20-Aug-2017 Knee 4 or More Views Result: Comments: See Note; NOTES: [facility] Imaging Services [address] [place] [address] Knee 4 or More Views MR#: [id number] Acct: [id number] Name: RAMU DEWITT Rep #: [id number] : 1940 M 76 From: Andre Crisostomo MD PCP: Vicki Styles DO Status: REG CLI Study: Knee 4 or More Views Date of Exam: 08/20/17 Exam# [id number] Ordering Dr: Lesa Alvarado MD STUDY: X-RAY - L EFT KNEE REASON FOR EXAM: Male, 76 years old. Pain, decreased range of motion TECHNIQUE: 4 view(s) of the knee. COMPARISON: 12/08/2016 FINDINGS: Normal visualized d istal femur. Normal visualized proximal tibia and fibula. Normal proximal tibiofibular articulation. There is moderate to severe degenerative arthrosis of the medial femorotibial compartment with moder ate joint space narrowing. There is mild degenerative arthrosis of the lateral femorotibial compartment. There is moderate degenerative arthrosis of the patellofemoral articulation. Mild soft tissue sw elling. RAD/Knee 4 or More Views IMPRESSION: Degenerative arthrosis. Electronically Signed: Lalo Crisostomo MD at 10:12 EDT Tel , Service support , CC: Vicki Styles DO; Lesa Alvarado MD Hearing Aid Fitter: Signed 24-Jun-2017 Parathyroid Scan Result: Comments: See Note; NOTES: [facility] Imaging Services [address] [place] [address] Parathyroid Scan MR#: [id number] Acct: [id number] Name: RAMU DEWITT Rep #: [id number] DO B: 1940 M 76 From: Rickie Mcelroy DO PCP: Vicki Styles DO Status: REG CLI Study: Parathyroid Scan Date of Exam: 06/24/17 Exam# [id number] Ordering Dr: Vicki Styles DO CLINICAL: 76-year-old male with reported history of elevation of the serum parathyroid hormone level. 99m Tc SESTAMIBI DUAL PHASE PARATHYROID SCINTIGRAPHY COMPARISON: None available FINDINGS: Following the intravenous ad ministration of 25.4 mCi of 99m Tc sestamibi, image acquisitions of the anterior neck at approximately 15 minutes and 2.0 hours post radiopharmaceutical provision reveal: 1. Immediate static blood pool acquisitions demonstrate visualization of the right-left thyroid colloid in a U-shaped thyroid gland. A focus of increased tracer concentration is noted in the region of the right superior mediastinum caudal to the thyroid isthmus. 2. Delayed images depict washout of the radiopharmaceutical from the previously defined right-left thyroid colloid. There is persistent uptake noted. NM/Parathyroid Scan IMPRESSION: 1. 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 2. No other d efinitive scintigraphic abnormalities are defined. Electronically Signed: Rickie Mcelroy DO at 11:28 EDT Tel , Service support , CC: Vicki Styles DO Hearing Aid Fitter: Signed 17-Jun-2017 Hand Min 3 Views Result: Comments: See Note; NOTES: [facility] Imaging Services [address] [place] [address] Hand Min 3 Views MR#: [id number] Acct: [id number] Name: DEWITTRAMU Rep #: [id number] DO B: 1940 M 76 From: Trung Gonzalez DO PCP: Vicki Styles DO Status: REG CLI Study: Hand Min 3 Views Date of Exam: 06/17/17 Exam# [id number] Ordering Dr: Vicki Styles DO STUDY: X-RAY - RIGH T HAND REASON FOR EXAM: Male, 76 years old. Swelling, redness TECHNIQUE: 3 view(s) of the hand. COMPARISON: None. FINDINGS: The bones are demineralized. Normal di stal radioulnar joint. Normal visualized carpal bones. Normal carpal articulations Normal carpometacarpal articulation of the thumb. Normal second through fifth carpometacarpal joints. Normal metacar pi. There is soft tissue swelling at the metacarpal phalangeal joint of the thumb. Normal interphalangeal joint of the thumb. Normal proximal and distal phalanges of the thumb. Normal metacarpophalang eal joints of the second through fifth fingers. Normal proximal and distal interphalangeal joints of the second through fifth fingers. There is a small bony erosion at the base of the proximal third pha lanx. There may be a small erosion along the radial and distal aspect of the proximal third phalanx. Mild joint space narrowing is seen within the interphalangeal joints. There is soft tissue swelling of the third digit. RAD/Hand Min 3 Views IMPRESSION: Osteopenia without acute fracture. Findings suggest erosive arthropathy within the third fi nger. Mild interphalangeal joint space narrowing. Electronically Signed: Trung Gonzalez DO at 11:37 EDT Tel , Service support , CC: Samira Styles DO Hearing Aid Fitter: Signed 16-Jun-2017 Cardiology Visit Report Result: Comments: See Note; NOTES: [facility] [address] [place] [address] OFFICE VISIT Date of Service: 06/16/17 MR#: [id number] Acct: [id number] Name: RAMU DEWITT Rep #: [id number] : 1940 Provider: LUIS Sanders Age/Sex: 76/M Location: [facility] [place] Status: Signed HPI HPI Details: RAMU DEWITT, is a 76 M who presents to the office today for a cardiovascular o utpatient follow-up. Patient has a history of coronary artery disease with bypass surgery 2003. He had a VILLEDA to LAD, SVG to circumflex, and SVG to posterior descending artery. He also has a history of atrial fibrillation s/p unsuccessful cardioversion in 2016, ischemic cardiomyopathy, pulmonary hypertension, hyperlipidemia, congestive heart failure, and sleep apnea. Pt. states he has been out of his cardura for the last two months d/t shortage of it from the pharmacy. Pt. denies chest, arm, jaw, or neck discomfort. His exercise tolerance is stable though limited d/t arthritis. Pt. denies symptoms of CHF, palpitations, lightheadedness, dizziness, near syncope, or syncopal episodes. Pt. denies edema or claudication issues. Pt. denies orthopnea, PND, fever, chills, blood in urine, blood in stool, myalgia, or unexplainable fatigue. He uses oxygen at night instead of CPAP and will be undergoing further evaluation by PCP for this. Intake Vital Signs06/16/17 Height 5 ft 6 in 06/16/17 Weight: 214 l b 06/16/17 Body Mass Index (BMI) 34.5 06/16/17 Blood Pressure 130/68 06/16/17 Blood Pressure Location Lt brachial Intake Visit Reasons: 3 M Desk Top Publisher Required: No Accompanied by: None Is patient in pain?: Yes (FELICITY hands, arthritis) Pain scale (1-10): 5 Allergies aspirin Allergy (Intermediate, Verified 06/16/17 09:18) Swelling around eyes acetaminophen [From Vicodin] Adverse Reaction (Severe, V erified 06/16/17 09:18) Rash hydrocodone [From Vicodin] Adverse Reaction (Severe, Verified 06/16/17 09:18) Rash pseudoephedrine [From Sudafed] Adverse Reaction (Severe, Verified 06/16/17 09:18) Myalgias AND flu like symptoms simvastatin [From Zocor] Adverse Reaction (Severe, Verified 06/16/17 09:18) Myalgias Sulfa (Sulfonamide Antibiotics) Adverse Reaction (Mild, Verified 06/16/17 09:18) Severe Pain i n joints Medications Finasteride [Proscar] 5 mg PO DAILY 04/18/15 [History Confirmed 06/14/17] Furosemide [Lasix] 40 mg PO BID 07/09/15 [History Confirmed 06/14/17] Acetaminophen [Tylenol Tablet] 650 mg PO Q6H PRN PRN #20 tab 07/16/15 [Rx Confirmed 06/14/17] Bethanechol Chloride [Urecholine] 50 mg PO BID 12/08/16 [History Confirmed 06/14/17] Metoprolol Tartrate [Lopressor (beta evelin)] 100 mg PO BID 12/08/16 [History Confirmed 06/14/17] Diltiazem CD [Cardizem CD] 180 mg PO Q12 #90 cap 12/12/16 [Rx Confirmed 06/14/17] Hydrocodone Bitart/Apap 5-325 [[place] 5/325] 1 tab PO Q6H PRN PRN #30 tab 12/12 [Rx Confirmed 06/14/17] apixaban 2.5 mg tablet 2.5 mg PO BID #14 tab 04/08/17 [Rx Confirmed 06/14/17] Ejection fraction %: 40 to 44 PFSH Medical History History of stroke (Chronic) Old myocardia l infarction (Chronic) Acute on chronic systolic (congestive) heart failure (Chronic) Hyperlipidemia (Chronic) retirement use of drug (Chronic) Ischemic cardiomyopathy (Chronic) FH: sudden cardiac (SCD) (Chronic) 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 of premature coronary heart disease (Chronic) Edema (Chronic) Pleural effusion (Chronic) Diabetes mellitus type 2 in obese (Chronic) Venous insufficiency (Chronic) HTN (hy pertension) (Chronic) CAD (coronary artery disease) (Chronic) Atrial fibrillation (Chronic) Cardiomyopathy, ischemic (Chronic) AUDRA (obstructive sleep apnea) (Chronic) Mitral regurgitation (Chronic) Morb id obesity (Chronic) Surgical History S/P CABG (coronary artery bypass graft) (Chronic) Family History Fa ther Sudden cardiac Sister Heart disease Sudden cardiac Father Sudden cardiac Social History Smoking Status: Never smoker alcohol intake: current alcohol intake frequency: a few jayjay es a week Alcohol type: beer, wine, hard liquor substance use type: does not use caffeine: Yes Type: coffee what type of physical activity do you participate in: none seatbelt use: sometimes do you feel safe at home: Yes ROS Const Const: Negative for fatigue, weakness, body ache, fever(s) or chills ENT ENT: Negative for dizziness Cardio Chest Pain: No Palpitations: No Edema: None Muscle ache s with walking: None Resp Respiratory: Negative for SOB with activity, SOB at rest, SOB orthopnea\SOB lying down or paroxysmal nocturnal dyspnea GI GI: Negative nausea, black,tarry stools, bright, red b lood in stools or vomiting blood/hematemesis : Positive for frequent nighttime urination/ nocturia; negative for hematuria Musc Musc: Negative for muscle aches/ myalgia Neuro Neuro: Negative for we akness, dizziness, lightheadedness, near syncope, syncope or orthostatic symptoms Endo Endo: Negative for fatigue Cardiology Exam Const Appearance: cooperative, healthy appearing, comfortable and no a cute distress Orientation: alert, awake and oriented x3 Head Head: normal to inspection Mouth: oral mucosae normal Neck Neck: no JVD and normal visual inspection Carotids: normal carotid upstroke Chest Chest inspection: normal inspection of the chest and normal respiratory effort Auscultation: Bilateral: Clear to Auscultation Cardio Rate: regular rate Rhythm: irregularly irregular Heart sounds: S1 nor mal and S2 normal; negative rub or gallop GI GI: normal to inspection Neuro General: alert, awake, oriented x3 and CN's II-XI intact bilaterally Skin Skin: no rashes or lesions noted Extremities Pulses: Normal: Right Posterior Tibial Pulse, Left Posterior Tibial Pulse, Right Radial Pulse, Left Radial Pulse Lower Extremity Edema: None: Bilateral Psych Psychological: normal affect Supplemental Info Ec hocardiogram from December 2016 showed an estimated ejection fraction of 40%, mild tricuspid valve insufficiency, moderately enlarged left atrium, moderately enlarged right atrium, and an RSVP of 26 mm Hg. Nuclear stress test from May 2015 was negative for stress-induced myocardial ischemia. Assessment AND Plan 1. Cardiomyopathy, ischemic I25.5 TF in November 2015 is 40%. Plan - LUIS Jay Patient's most recent echocardiogram from December 2016 showed an estimated ejection fraction of 40%. Patient denies any shortness of breath or worsening lower extremity pedal edema. Patient does no say improved edema since he has adjusted his diet. Patient will continue current medications which include beta-eveiln and diuretic. 2. Atherosclerosis of [place] coronary artery of [place] heart witho ut angina pectoris I25.10 S/P CABG in 2003 with VILLEDA to LAD, SVG to LXC, and SVG posterior descending; Plan - TARIQ Jay Patient's most recent stress test from May 2015 was negative for str ess-induced myocardial ischemia. Patient denies any chest pain, arm pain, jaw pain, neck pain, shortness of breath, or fatigue suggestive of angina at this time. We will continue to monitor this. We shadia l not make any medication regimen changes and will continue risk factor modification. 3. Persistent atrial fibrillation I48.1 Chidi - TARIQ Jay Patient states he has not been on amiodarone thera py since his discharge from hospital in December 2016. His heart rate is well- controlled today in office. He was asked to continue to monitor his heart rate at home and contact our office if he notices if it increases and at that time we can consider further adjustment with medication if needed. Patient will also continue with factor Xa inhibitor. 4. Essential hypertension I10 Plan - LUIS Jay Though patient has been out of his Cardura, his blood pressure been well controlled. If his blood pressure increases or remains elevated we can investigate if Cardura is available at a different dosa ge. Patient would like to stick to Cardura due to both blood pressure and prostate benefits. At this time we will not make any changes and patient was instructed to contact our office if any concerns re garding his blood pressure. 5. Mixed hyperlipidemia E78.2 Plan - TARIQ Jay This is being evaluated/monitored by primary care physician. Patient is not on any cholesterol lowering medication. 6 . 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 Plan Detail Other Medications Discontinued: Additional Comments - TARIQ Jay Discussed t he above patient with Dr. Greenfield, he agrees with the plan of care. Thank you for allowing us to participate in the patients plan of care, if you have any questions please do not hesitate to call. This note was generated using a voice recognition system and there may be incorrect words, spelling or punctuation that were not noted when reviewing the office note prior to saving. 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) Coding Level of Care Code Off vis,est,level 3 Diagnoses Cardiomyopathy, ischemic I25.5 Atherosclerosis of [place] coronary artery of [place] heart without angina pectoris I25.10 Persistent atrial fibr illation I48.1 Atrial fibrillation type: persistent Essential hypertension I10 Hypertension type: essential hypertension Mixed hyperlipidemia E78.2 Hyperlipidemia type: mixed hyperlipidemia lobsterman us e of drug Z79.899 Coding Level of Care Code Off vis,est,level 3 Diagnoses Cardiomyopathy, ischemic I25.5 Atherosclerosis of [place] coronary artery of [place] heart without angina pectoris I25.10 Persi stent atrial fibrillation I48.1 Atrial fibrillation type: persistent Essential hypertension I10 Hypertension type: essential hypertension Mixed hyperlipidemia E78.2 Hyperlipidemia type: mixed hyperlipid emia retirement use of drug Z79.899 06/16/17 1139 <Electronically signed by Ramu POTTER> Date Ramu POTTER 06/16/17 1417&am p;#60;Electronically signed by Jimi Greenfield MD> Cosigner Signature: Date (if applicable) Jimi Greenfield MD CC: Vicki Styles DO 08-Dec-2016 Emergency Department Summary Result: Comments: See Note; NOTES: [facility] Medical Records Department [address] [place] [address] Emergency Department Summary 12/08/16 1354 MR#: [id number] Acct: [id number] Name: RAMU DEWITT Rep #: [id number] : 1940 75 From: Robe Mary MD PCP: Vicki Styles DO Status: REG ER - ER Visit Summary Date of Service: 12/08/16 Chief Complaint: Shortness of breath, genera lized weakness and difficulty maneuvering his residence History of Present Illness: The patient is a 75 M who has history of A. fib, CHF, diabetes, hypertension, hypercholesteremia, end-stage renal dis ease, benign prostatic hypertrophy, gout and A. fib presents because of deterioration of status. He apparently had a mechanical fall on Wednesday. Is now been able to maneuver in his house. He does compl ain of palpitations and shortness of breath. He does complain of swelling of his extremities. He denies any fever, chills or night sweats. Denies any visual, ocular or auditory symptoms. He denies any c hest discomfort. He denies abdominal pain, nausea, vomiting or diarrhea. He denies any urologic symptoms. He does complain of myalgias arthralgias. He also complains of swelling and abrasion to his left knee. Does report generalized weakness. Physical Examination: Next field vital signs remarkable heart rate 145. Respiratory 24. He has a saturation 94% on oxygen. He is not well groomed he is obese. H ead is atraumatic normocephalic. Pupils are equal round reactive. Extraocular muscles are intact. TMs are pearly white with landmarks noted. Nares patent with no drainage. Posterior pharynx without eryt chau or exudate. Uvula is midline. There is no dysphonia or dysphasia. Trachea is midline. There is no stridor with auscultation of the neck. Heart is rapid and regular. Lungs reveal rales bilaterally. Abdomen distended slightly tympanitic nontender. He does have pitting edema of the lower extremities. There is swelling left knee compared to the right. He does have full active range of motion with dis comfort. There is no laxity varus valgus stress testing. Modified Noelle's test negative. Zenaida's test negative. There is an abrasion over the knee. He is alert and oriented 3. Test Results: EKG A. fib RVR with premature ventricular beats versus a [place] C. Computer is reading acute inferior [place]. I am in disagreement. Chest x-ray reveals CHF with mild cardiomegaly. X-ray of the knee reveals no frac ture. There is a small effusion with mild degenerative changes. Blood work is marked for an H AND H 10.0 and 33.1. Glucose is 144 with a BUN and creatinine at 24 1.38. Troponin 0 0.03. BNP 1319. Emerge ncy Department Course and Treatment: Initially patient received 5 metoprolol because he informed me that was his rate controlling that. After contact his PCP was determined he is also on Cardizem and he received a dose of Cardizem. Because he is fluid overloaded he did receive Lasix IV push. Treatment Plan: Patient will need further treatment in the hospital and hospitalist has been called for admiss ion Disposition: Admit to monitored unit Impression: 1. A. fib with RVR 2. Exacerbation of CHF secondary #1 3. Hyperglycemia type II diabetic 4. History of hypertension 5. History of hypercholesterole kulwinder 6. Anemia 7. End-stage renal disease, stage III ED Disposition - Plan for ED Patient: Chief Complaint: Weakness Referrals: Vicki Styles, [Primary Care Provider] - What to do if you have Problems For any increased pain, shortness of breath, bleeding, nausea or vomiting, chest pain, or any unexpected problems, contact your Primary Care Provider. Call [facility] ([phone]) or r bethanyrt to the closest Emergency Room. Call 911 if necessary. 12/08/16 1718 <Electronically signed by Robe Mary MD> Date Robe Mary MD Cosigner Signature (If Indicated): Date CC: Jimi Greenfield MD; Vicki Styles DO 08-Dec-2016 Knee 1 or 2 Views Result: Comments: See Note; NOTES: [facility] Imaging Services [address] [place] [address] Knee 1 or 2 Views MR#: [id number] Acct: [id number] Name: DEWITTRAMU Rep #: [id number] D OB: 1940 M 75 From: Shahab Carlos MD PCP: Vicki Styles DO Status: REG ER Study: Knee 1 or 2 Views Date of Exam: 12/08/16 Exam# [id number] Ordering Dr: Robe Mary MD STUDY: X-RAY - LEFT K NEE REASON FOR EXAM: Male, 75 years old. Pain. TECHNIQUE: AP and lateral view(s) of the knee. COMPARISON: None. FINDINGS: Normal visualized distal femur. Normal v isualized proximal tibia and fibula. Normal proximal tibiofibular articulation. There is severe degenerative arthrosis of the medial femorotibial compartment with severe joint space narrowing. Normal l ateral femorotibial compartment. There is moderate degenerative arthrosis of the patellofemoral articulation. Chondrocalcinosis. Soft tissue swelling. Small joint effusion. RAD/Knee 1 or 2 Views IMPRESSION: Degenerative arthrosis. Soft tissue swelling. Small joint effusion. Electronically Signed: Shahab Carlos MD at 12:57 EDT Tel [phone], Service support , CC: Vicki Styles DO; Robe Mary MD Hearing Aid Fitter: Signed 08-Dec-2016 Chest 1 View (Portable) Result: Comments: See Note; NOTES: [facility] Imaging Services [address] [place] [address] Chest 1 View (Portable) MR#: [id number] Acct: [id number] Name: RAMU DEWITT Rep #: [id number] : 1940 M 75 From: Shahab Carlos MD PCP: Vicki Styles DO Status: REG ER Study: Chest 1 View (Portable) Date of Exam: 12/08/16 Exam# [id number] Ordering Dr: Robe Mary MD STUDY: X- RAY CHEST REASON FOR EXAM: Male, 75 years old. Dyspnea. TECHNIQUE: Single AP portable view of the chest. COMPARISON: Comparison is made with prior study dated January 07, 2016. FINDINGS: EKG electrodes are seen. A mild degree of vascular congestion in keeping with mild degree of CHF. There is no demonstrated pleural abnormality. Sternal cerclage wires and vascu lar clips are present from a prior sternotomy and coronary artery bypass graft procedure (CABG). Moderate cardiomegaly. Normal mediastinum and kath. Normal visualized pulmonary arteries. There is athero sclerotic calcification of the aortic arch with tortuosity. There are diffuse degenerative changes of the visualized thoracic spine. Normal visualized ribs, clavicles, and shoulders. There is no demon strated abnormality of the visualized soft tissue structures of the upper abdomen. RAD/Chest 1 View (Portable) IMPRESSION: Megaly. Mild degree of CHF. Electronically Signed: Shahab Carlos MD at 12:58 EDT Tel [phone], Service support , CC: Vicki Styles DO; Robe Mary MD Hearing Aid Fitter: Signed 07-Jan-2016 Chest 1 View (Portable) Result: Comments: See Note; NOTES: [facility] Imaging Services [address] [place] [address] Verdana 4d Chest 1 View (Portable) MR#: [id number] Acct: [id number] Name: RAMU DEWITT Rep #: [id number] : 1940 M 75 From: Shahab Carlos MD PCP: Vicki Styles DO Status: [facility] Study: Chest 1 View (Portable) Date of Exam: 01/07/16 Exam# [id number] Ordering Dr: Ron Buchanan MD STUDY: X-RAY CHEST REASON FOR EXAM: Male, 75 years old. Shortness of breath with exertion. TECHNIQUE: Single AP portable view of the chest. COMPARISON: Comparison is made with prior study da vasiliy July 09, 2015. FINDINGS: There is evidence of vascular congestion and mild CHF. Small bilateral effusions worse on the right side with underlying atelectasis. Sternal cerclage wires and vascular clips are present from a prior sternotomy and coronary artery bypass graft procedure (CABG). Normal mediastinum and kath. Normal visualized pulmonary arteries. Normal visualized aortic arch and descending thoracic aorta. There are diffuse degenerative changes of the visualized thoracic spine. Mild dextroscoliosis. Normal visualized ribs, clavicles, and shoulders. There is no demonstrated abnormality of the visualized soft tissue structures of the upper abdomen. RAD/Chest 1 View (Portable) IMPRESSION: Mild CHF with small bilateral pleural effusions right greater than left and bibasilar atelectasis. Electronically Signed: Shahab Carlos MD at 15:38 EDT Tel [phone], Service support , CC: Vicki Styles DO; Jerle Buchanan MD Hearing Aid Fitter: Signed 13-Nov-2015 Echocardiogram Complete Result: Comments: See Note; NOTES: [facility] Cardiovascular Services [address] [place] [address] Echo Complete 11/13/15 1006 MR#: [id number] Acct: [id number] Name: RAMU DEWITT Rep #: [id number] : 1940 74 From: Jimi Greenfield MD Attending Dr: Precious Cole Status: REG CLI Ordering Dr: Precious Cole Date: 11/13/15 Location: [facility] Sex: M C Admitted: Reas on For Study: ASHD Procedure This was a 2D Doppler, Color Flow transthoracic echocardiogram. Exam performed in department. Left Ventricle Normal LV size. The estimated ejection fraction is 40 %. Mild to moderate segmental systolic dysfunction (see wall motion). Mid-Inferior: Hypokinetic. Infero-Basal: Hypokinetic. Mid- anteroseptal : Hypokinetic. Basal anteroseptal: Hypokinetic. Right Ventricle Nor mal RV size. Normal systolic function. Atria The left atrium is mildly enlarged. The right atrium is mildly enlarged. Mitral Valve Bileaflet diffuse mitral valve thickening. Mild-Moderate (1-2+) eccen tric mitral valve insufficiency. Tricuspid Valve Normal tricuspid valve. Aortic Valve The aortic valve is not well visualized. Pulmonic Valve The pulmonic valve is not well visualized. Great Vessels Normal aortic root. The pulmonary is not well visualized. Normal inferior vena cava. Pericardium/Pleural No pericardial effusion. MMode/2D Measurements & Calculations LVIDd: 5.0 cm IVSd: 1.2 c m Ao root diam: 3.3 cm LVIDs: 4.2 cm LVPWd: 1.2 cm LA dimension: 5.1 cm RVDd: 3.7 cm FS: 15.6 % LAV(MOD-bp): 96.8 ml LA A4 area: 23.9 cm2 RA A4 area: 22.0 cm2 LAV(MOD-bp) Indexed: 45.4 ml/m2 LAV(MOD- sp2): 110.8 ml LAV(MOD-sp4): 77.6 ml Doppler Measurements & Calculations MV E max dior: 133.3 cm/sec Ao V2 max: 141. 4 cm/sec LV V1 max: 98.5 cm/sec Ao max P.0 mmHg LV V1 max P.9 mmHg PA V2 max: 118.7 cm/sec Interpretation Summa ry Normal LV size. The estimated ejection fraction is 40 %. Mild to moderate segmental systolic dysfunction (see wall motion). Mild-Moderate (1-2+) eccentric mitral valve insufficiency. The left atrium is mildly enlarged. Compared to prior study, there is no significant change. Ordering Physician: Precious Romo/Jimi Greenfield Referring Physician: Vicki Styles M.D. Performed By: Karen Abernathy RDCS 11/13/15 1256 Date ___ Jimi Greenfield MD CC: Vicki Styles DO; Precious Cole Date Dictated: 11/13/15 1006 Date Transcribed: 11/13/15 1256 Hearing Aid Fitter: Signed 08-Oct-2015 ELECTROCARDIOGRAM, COMPLETE (ECG) ([id number]) Result: [MEASUREMENTS ANALYSIS] Date of Test: 10/08/2015 09:07:11; Heart Rate: 98; RI Interval: 0; QRS: 114; QT Interval: 372; Corrected QT Interval (QTc): 438; P Wave Union: -90; QRS Wave Union: -1; T Wave Union: -33; Blood Pressure: 142/86 [ECG DIAGNOSTIC STATEMENTS] Date of Test: 10/08/2015 09:07:11; Summary: Atrial fibrillation -Nonspecific ST depression + Nonspecific T-abnormality -Nondiagnostic. ABNORMAL 09-Jul-2015 Chest 1 View (Portable) Result: Comments: See Note; NOTES: [facility] Imaging Services [address] [place] [address] Verdana 4d Chest 1 View (Portable) MR#: [id number] Acct: [id number] Name: RAMU MARTIN Rep #: [id number] : 1940 M 74 From: Noa Buchanan MD PCP: Vicki Styles DO Status: REG ER Study: Chest 1 View (Portable) Date of Exam: 07/09/15 Exam# [id number] Ordering Dr: Jerel Buchanan MD STUDY: X-RAY CHEST REASON FOR EXAM: Male, 74 years old. edema in legs and groin TECHNIQUE: Single AP portable view of the chest. COMPARISON: April 18, 2015 FINDINGS: Small right-sided pleural effusion with adjacent compressive atelectasis noted. The remainder lungs are clear. There is severe cardiac enlargement. There is eviden ce of prior surgical intervention with sternal wire sutures. Normal mediastinum and kath. Normal visualized pulmonary arteries. Normal visualized aortic arch and descending thoracic aorta. There ar e diffuse degenerative changes of the visualized thoracic spine. Normal visualized ribs, clavicles, and shoulders. There is no demonstrated abnormality of the visualized soft tissue structures of th e upper abdomen. IMPRESSION: New small pleural effusion with right basilar lung consolidation. Persisting cardiomegaly. Electronically Signed: Noa Buchanan MD at 17:21 EDT Tel , Service support [phone], RAD/Chest 1 View (Portable) IMPRESSION: New small pleural effusion with right b asilar lung consolidation. Persisting cardiomegaly. Electronically Signed: Noa Buchanan MD at 17:21 EDT Tel , Service support [phone], C C: Vicki Styles DO; Jerel Buchanan MD Hearing Aid Fitter: Signed 24-May-2015 Nuclear Stress Test - Chemical Result: Comments: See Note; NOTES: [facility] Imaging Services [address] [place] [address] Lorie 4d Nuclear Stress Test - Chemical MR#: [id number] Acct: [id number] N ani: RAMU DEWITT Rep #: [id number] : 1940 74 From: Jimi Greenfield MD Primary Care: Vicki Styles DO Status: REG CLI Ordering Dr: Jimi Greenfield MD Sex: M C DATE OF SERVICE: A 74-year- old man with a history of ischemic cardiomyopathy, previous myocardial infarction and coronary artery bypass surgery and atrial fibrillation. The present stress test is undertaken to assess for any is chemia. Resting EKG demonstrates atrial fibrillation with a rate of 122 beats per minute. Resting blood pressure was 152/78. 0.4 mg of regadenoson was infused per usual protocol followed by rapid int ravenous saline flush injection. Continuous EKG monitoring was performed. The patient maintained atrial fibrillation throughout the recording. The maximum heart rate attained was 139 beats, which was 94% of maximum predicted heart rate. The maximum workload attained was 1 MET. At rest, there were no ST or T-wave changes noted to suggest abnormal flow reserve. At peak infusion, no ST or T-wave ynes nges noted to suggest abnormal flow reserve. Resting blood pressure was 152/78. Final blood pressure was 138/70. MYOCARDIAL PERFUSION PROTOCOL: 14.2 mCi of sestamibi was injected at rest. 0.4 mg of regadenoson was infused per usual protocol. At peak infusion 14.1 mCi of sestamibi was injected. Stress images were obtained. Stress and rest images were reconstructed and compared in the short axis, vertical long and horizontal long axes. Gated images were also obtained. PERFUSION SPECT ANALYSIS: Review of the images demonstrates a normal cardiac silhouette size. The septum, anterior wall, and lateral wall appear to be well perfused. The basal inferior wall has a defect at present extending to the inferolateral wall. This is present on the stress and resting images to a similar extent. The re is minimal improvement to suggest minimal/mild nilsa-infarct ischemia. No significant ischemia; however, is noted. GATED SPECT ANALYSIS: The gated ejection fraction could not be obtained due to th e atrial fibrillation. CONCLUSION: 1. Pharmacologic myocardial perfusion stress test with no obvious ischemia noted. 2. Atrial fibrillation present. Jimi Greenfield MD T: NTS JOB: [id number] <Electronically signed by Jimi Greenfield MD> Date Jimi Greenfield MD CC: Vicki Styles DO Date Dictated: 05/24/15 1253 D ate Transcribed: 05/24/151252 Hearing Aid Fitter: Signed 18-Apr-2015 Chest 1 View (Portable) Result: Comments: See Note; NOTES: [facility] Imaging Services [address] [place] [address] Verdana 4d Chest 1 View (Portable) MR#: [id number] Acct: [id number] Name: RAMU MARTIN Rep #: [id number] : 1940 M 74 From: Shahab Carlos MD PCP: Vicki Styles DO Status: REG ER Study: Chest 1 View (Portable) Date of Exam: 04/18/15 Exam# [id number] Ordering D r: Ros Zuniga STUDY: X-RAY CHEST REASON FOR EXAM: Male, 74 years old. Chest pain. Atrial fibrillation. TECHNIQUE: Single AP portable view of the chest. COMPARISON: Comparison is made with pr ior study dated August 29, 2013. FINDINGS: EKG electrodes are seen. There is evidence of vascular congestion in keeping with a mild degree of CHF. Mild increased markings at the lung bases suggestive of bibasilar atelectasis. There is focal pleural thickening along the lateral mid pleural space most likely secondary to prior injury. Sternal cerclage wires an d vascular clips are present from a prior sternotomy and coronary artery bypass graft procedure (CABG). Moderate cardiomegaly. Normal mediastinum and kath. Normal visualized pulmonary arteries. There is atherosclerotic tortuosity of the aortic arch and descending thoracic aorta. There are diffuse degenerative changes of the visualized thoracic spine. Normal visualized ribs, clavicles, and shoul ders. There is no demonstrated abnormality of the visualized soft tissue structures of the upper abdomen. IMPRESSION: Thyromegaly and mild degree of CHF with b ibasilar atelectasis. Electronically Signed: Shahab Carlos MD at 13:57 EST Tel [phone], Service support [phone], RAD/Chest 1 View (P ortable) IMPRESSION: Thyromegaly and mild degree of CHF with bibasilar atelectasis. Electronically Signed: Shahab Carlos MD at 13:57 EST Tel [phone], Service support [phone], CC: Ros Zuniga; Vicki Styles DO Hearing Aid Fitter: Signed 18-Apr-2015 EKG ([id number]) Comments: afib with RVR-- 150 -pt admits he hasnt taken bystolic >30 day Result: [MEASUREMENTS ANALYSIS] Date of Test: 04/18/2015 11:50:46; Heart Rate: 150; RI Interval: -612; QRS: 96; QT Interval: 302; Corrected QT Interval (QTc): 459; P Wave Union: 1; QRS Wave Union: 15; T Wave Union : -90; Blood Pressure: 124/82 [ECG DIAGNOSTIC STATEMENTS] Date of Test: 04/18/2015 11:50:46; Summary: Possible atrial fibrillation -Inferior infarct -age undetermined. -Nonspecific ST depression -Nondiagnostic. ABNORMAL -May-2014 Sleep Study Report Result: Comments: See Note; NOTES: [facility] [address] [place] [address] Polysomnography with NCPAP MR#: [id number] Acct: [id number] Name: RAMU DEWITT Rep #: [id number] : 1940 73 From: Cezar Escalante MD PCP: Vicki Styles DO Status: REG CLI Ordering Dr.: Dana Osborne NP-C Date: 05/01/14 Sex: M C REFERRING PHYSICIAN: COREY Shah SLEEP HISTORY: This is a CPAP titration study performed on this 73-year-old male with a body mass index of 36.5 and an [place] Sleepiness Scale score of 8. Diagnostic polysomnogram per formed March 08, 2014, and showed an overall AHI of 42.6/53.4 with a supine increase, but no REM sleep. MASK USED DURING THIS STUDY: AirFit F10 medium mask. Heated humidity was also used. SCORING RULES: Respiratory events were acquired and scored in accordance with the Recommended Standards and Specifications as outlined in the AASM Manual for the Scoring of Sleep and Associated Events (most recent version). Please note that a reference to [facility] AHI in this report is consistent with the current Hypopnea definition according to Medicare Criteria and an [facility] AHI reference is consistent with the current Hypopnea definition according to the AASM criteria. PROCEDURE: The study was attended continuously by a thermal technician. Monitored parameters included left and right EOG, frontal, cent ral, and occipital EEG, mental and submental EMG, left and right anterior tibialis EMG, signal ECG waveform, snore, continuous airflow with PAP device flow signal, chest and abdominal plethysmography efforts, oxygen saturation with heart rate, and body positioning with video monitoring. SUMMARY: Lights off occurred at 9:52 p.m. and lights on at 5:20 a.m. for a total recording time of 447.5 minut es and a total sleep time of 291.5 minutes. Calculated sleep efficiency was 65.1% and sleep latency was 4.4 minutes. There were 3 REM periods with a REM latency of 137.5 minutes. All sleep stages are identified during this study although slow wave sleep is under represented. RESPIRATORY DATA: The total AHI for the study was 32.3/39.5 with a REM index of 19.5/25.4 and a supine index of 53.3. The patient was supine for 2 hours and 33 minutes of sleep. Oxygen saturation ranged from 80% to 99% during sleep with a mean of 94.7% during sleep. Desaturations below 88% occurred for 1.3 minutes of total sleep time. Pulse rate ranged from 56-127 beats per minute with a mean of 77 beats per minute. An occasional PVC was identified. Leg movement index was 24.7 per hour, 1.9 per hour was associ ated with arousals. Nasal CPAP was initiated at 9 cm and titrated to 15 cm. Due to persistent apneic events, nasal BiPAP was initiated and titrated. The most efficacious setting appeared to be a BiP AP setting of 19/15, which was tested for 33 minutes of REM sleep and 31 minutes of nonREM sleep. This was associated with a total sleep time AHI of 9.2/17.5, supine AHI of 27.3/36.4 and REM AHI of 5.4 /10.7. Minimum oxygen saturation for this setting was 90%. IMPRESSION: Obstructive sleep apnea. RECOMMENDATIONS: 1. This setting appears to have suboptimally treated the patient's apneas. It is recommended that the patient be prescribed a bilevel setting of 19/15 with comfort controls as follows: Ti Max 1.0, Ti Min 0.3, Easy-Breathe on, trigger M , and cycle H. The patient should be acclimate d for approximately 2-4 weeks at this setting and then undergo repeat titration. The above described mask and heated humidity should be prescribed as well. 2. An occasional PVC was recorded during th is study. Further evaluation with formal electrocardiography is recommended if clinically indicated. 3. Periodic leg movements of sleep may improve with adequate CPAP therapy, however, if they persis t and are associated with excessive daytime somnolence, dopaminergic agents maybe of benefit. INTERPRETING PHYSICIAN: Cezar Escalante MD CC: Cezar Escalante MD 1210 DT: 5 1214 05/06/14 1231 <Electronically signed by Cezar Escalante MD > Date Cezar Escalante MD Co-signature (if applicable) Date Signed 13-Mar-2014 Sleep Study Report Result: Comments: See Note; NOTES: [facility] [address] [place] [address] Polysomnography MR#: [id number] Acct: [id number] Name: RAMU DEWITT Rep #: [id number] : 1940 73 From: Dillon Miner MD PCP: Vicki Styles DO Status: REG CLI Ordering Dr.: Vicki Styles DO Date: 03/08/14 Sex: M C REFERRING PHYSICIAN: Dr. Styles. SLEEP HIS TORY: The patient is a 73-year-old gentleman with a calculated body mass index of 36.5 and an [place] Sleepiness Scale score of 8/24. He complains of daytime sleepiness, dry mouth upon awaking, snorin g, nocturia, and is undergoing overnight polysomnogram to evaluate for possible sleep disordered breathing, or other primary sleep disorder. ADDITIONAL MEDICAL HISTORY: Significant for Gilbert dise ase, stroke, coronary artery disease status post bypass surgery in 2003, actinic keratosis, diabetes, COPD, obesity, hypokalemia. MEDICATIONS REPORTED AT TIME OF STUDY: Include Gordo, Marina, Plavix, Lasix, Cardura, vitamin D, Bystolic, Zetia, Proventil. SCORING RULES: Respiratory events were acquired and scored in accordance with the Recommended Standards and Specifications as outlined in the AASM Manual for the Scoring of Sleep and Associated Events (most recent version). Please note that a reference to [facility] AHI in this report is consistent with the current Hypopnea definition according t o Medicare Criteria and an AASM AHI reference is consistent with the current Hypopnea definition according to the AASM criteria. PROCEDURE: The study was attended continuously by a thermal technician. Monitored parameters included left and right EOG, frontal, central, and occipital EEG, mental and submental EMG, left and right anterior tibialis EMG, signal ECG waveform, snore, continuous airflow w ith thermistor and nasal pressure transducer, chest and abdominal plethysmography efforts, oxygen saturation with heart rate, and body positioning with video monitoring. SLEEP STUDY DATA: [facility] polysomnogram began at 0939:27 p.m. and ended at [id number] a.m. for a total recording time of 442.4 minutes of which the patient slept 307 minutes for a calculated sleep efficiency of 69.4%. Sleep lat ency was 3.9 minutes with a REM latency of 94 minutes. Sleep stage percentages were as follows: N1 27.9%, N2 66.9%, N3 0% and REM 5.2% of total sleep. There were a total of 232 arousals during the stephanie dy resulting in an overall arousal index of 45.3. Note the majority of arousals were secondary to respiratory events with a respiratory arousal index of 40.1. The spontaneous arousal index was 5.3. RESPIRATORY DATA: Snoring was present throughout the recording. The overall apnea/hypopnea index by CMS and AASM guidelines was 42.6 and 53.4 respectively. Note almost all respiratory events were of obstructive nature except for 5 central apneas recorded during the recording. This makes up less than 2% of total respiratory events. It should also be noted that during the recording the patient's bach pine index was worse than nonsupine with a supine index by AASM guidelines of 83.1 versus nonsupine of 52.0. However, REM sleep did not significantly influence the number of respiratory events that w ere occurring. However, REM sleep is when oxygen desaturations were at their worst. During REM sleep, desaturations fell as low as 80%. Mean oxygen saturation during the recording was 94.8% with a mi nimum of 80%. The patient spent 2.2 minutes with an oxygen saturation less than 88%. EKG DATA: Mean heart rate during sleep was 59 beats per minute with a range of 48-80 beats per minute. Note that PVCs were noted during the recording. LIMB MOVEMENT DATA: There were a total of 20 periodic limb movements during this recording resulting in a periodic limb movement index of 3.9. Note that none of these limb movements were associated with arousal. DIAGNOSIS: Obstructive sleep apnea syndrome. (327.23) IMPRESSION: 1. Severe obstructive sleep apnea syndrome that was further worse when the pa tient was supine. Respiratory events were associated with frequent arousal as well as oxygen desaturations as noted above. 2. Abnormal sleep architecture likely secondary to first night effect, possibl e medication effect, and respiratory events. RECOMMENDATIONS: 1. Due to subjective complaints, the patient having medical conditions that could be exacerbated by sleep disordered breathing including cardiac disease, diabetes, hypertension, and the findings of this recording, strongly recommend the patient be treated with positive airway pressure therapy. If this is the choice of therapy, the pa tient should undergo a positive airway pressure titration to determine appropriate positive airway pressure setting to normalize apnea/hypopnea index and attempt to maintain oxygen saturations greater than 90% . Due to medical history, this should be done in a sleep center/monitored setting. During the titration study, the patient should be encouraged to sleep in the supine position. 2. Encouraged weight loss to optimal body mass index. 3. Recommend the patient be advised to avoid activities or medications that could exacerbate sleep disorder breathing. 4. Recommend the patient be advised not to drive or operate heavy machinery when sleepy. INTERPRETING PHYSICIAN: Dillon Miner Jr., MD CC: Dillon Miner MD [id number] [id number] 03/13/14 1029 <Electronic ally signed by Dillon Miner MD> ELIAS Date Dillon Miner MD Co-signature (if applicable) Date Signed 28-Dec-2013 Spirometry (60883) Result: 29-Aug-2013 Chest PA and Lateral Result: Comments: See Note; NOTES: [facility] Imaging Services [address] [place] [id number] Radiology Report MR#: [id number] Acct: [id number] Name: RAMU DEWITT Rep #: [id number] : 1940 M 72 From: Shahab Carlos MD PCP: Vicki Styles DO Status: REG CLI Study: Chest PA and Lateral Date of Exam: 08/29/13 Exam# [id number] Ordering Dr: Vicki Styles DO STUDY: X-RAY CHEST REASON FOR EXAM: Male, 72 years old. Abnormal lung sounds. TECHNIQUE: PA and lateral views of the chest. COMPARISON: Comparison is made with prior study dated February 12, 2013. FINDINGS: The lungs are clear and expanded. Calcified old granulomatous disease. There is no demonstrated pleural abnormality. Sternal cerclage wires and vas cular clips are present from a prior sternotomy and coronary artery bypass graft procedure (CABG). Cardiomegaly. Normal mediastinum and kath. Normal visualized pulmonary arteries. There is atheroscle rotic calcification of the aortic arch with tortuosity. There are diffuse degenerative changes of the visualized thoracic spine. Normal visualized ribs, clavicles, and shoulders. There is no demons trated abnormality of the visualized soft tissue structures of the upper abdomen. IMPRESSION: Cardiomegaly. No acute abnormality is seen. Electronically Signed : Shahab Carlos MD at 15:06 EDT Tel [phone], Service support [phone], CC: Vicki Styles DO Hearing Aid Fitter: Signed 24-Aug-2013 Spirometry ([id number]) Comments: obstruction present Result: Social History Name Dates Details Alcohol Use Comments: Occasional alcohol use Status: Active Caffeine Use Comments: 6 - 8 Glasses per day Status: Active Non Smoker/No Tobacco Use Status: Active Tobacco use: Former smoker. Comments: 08/26/11 Status: Active Smoking Status Name Dates Details Former smoker Vital Signs Date Test Result Details [id number] Comments: [facility] and had a glaucoma test donehearing wn Pulse 50 /min Comments: Pattern: Regular Respiration Rate 18 /min Comments: Pattern: Unlabored O2 SAT 98 % Comments: Room air BP Systolic 124 mm[Hg] Comments: Patient Position: Sitting; Cuff Location: Left Arm; Cuff Size: Large BP Diastolic 78 mm[Hg] Comments: Patient Position: Sitting; Cuff Location: Left Arm; Cuff Size: Large Weight 219.375 lb Height 66 in Body Mass Index Calculated 35.41 kg/m2 Body Surface Area Calculated 2.08 m2 [id number] Pulse 68 /min Comments: Pattern: Regular Respiration Rate 18 /min Comments: Pattern: Unlabored O2 SAT 94 % Comments: Room air BP Systolic 118 mm[Hg] Comments: Patient Position: Sitting; Cuff Location: Left Arm; Cuff Size: Standard BP Diastolic 62 mm[Hg] Comments: Patient Position: Sitting; Cuff Location: Left Arm; Cuff Size: Standard Weight 220 lb Height 66 in Body Mass Index Calculated 35.51 kg/m2 Body Surface Area Calculated 2.08 m2 :08 Pulse 62 /min Comments: Pattern: Regular Respiration Rate 18 /min Comments: Pattern: Unlabored O2 SAT 95 % Comments: Room air BP Systolic 124 mm[Hg] Comments: Patient Position: Sitting; Cuff Location: Left Arm; Cuff Size: Large BP Diastolic 80 mm[Hg] Comments: Patient Position: Sitting; Cuff Location: Left Arm; Cuff Size: Large Weight 216 lb Height 66 in Body Mass Index Calculated 34.86 kg/m2 Body Surface Area Calculated 2.07 m2 :53 Pulse 73 /min Comments: Pattern: Regular Respiration Rate 18 /min Comments: Pattern: Unlabored O2 SAT 90 % Comments: Room air BP Systolic 122 mm[Hg] Comments: Patient Position: Sitting; Cuff Location: Left Arm; Cuff Size: Large BP Diastolic 76 mm[Hg] Comments: Patient Position: Sitting; Cuff Location: Left Arm; Cuff Size: Large Weight 214.5 lb Height 66 in Body Mass Index Calculated 34.62 kg/m2 Body Surface Area Calculated 2.06 m2 :20 Pulse 66 /min Comments: Pattern: Regular Respiration Rate 18 /min Comments: Pattern: Unlabored O2 SAT 98 % Comments: Room air BP Systolic 116 mm[Hg] Comments: Patient Position: Sitting; Cuff Location: Left Arm; Cuff Size: Standard BP Diastolic 82 mm[Hg] Comments: Patient Position: Sitting; Cuff Location: Left Arm; Cuff Size: Standard Weight 213 lb Height 66 in Body Mass Index Calculated 34.38 kg/m2 Body Surface Area Calculated 2.05 m2 :53 Pulse 57 /min Comments: Pattern: Regular Respiration Rate 18 /min Comments: Pattern: Unlabored O2 SAT 94 % Comments: Room air BP Systolic 128 mm[Hg] Comments: Patient Position: Sitting; Cuff Location: Left Arm; Cuff Size: Standard BP Diastolic 76 mm[Hg] Comments: Patient Position: Sitting; Cuff Location: Left Arm; Cuff Size: Standard Weight 218 lb Height 66 in Body Mass Index Calculated 35.19 kg/m2 Body Surface Area Calculated 2.07 m2 :58 Pulse 63 /min Comments: Pattern: Regular Respiration Rate 18 /min Comments: Pattern: Unlabored O2 SAT 97 % Comments: Room air BP Systolic 142 mm[Hg] Comments: Patient Position: Sitting; Cuff Location: Left Arm; Cuff Size: Standard BP Diastolic 80 mm[Hg] Comments: Patient Position: Sitting; Cuff Location: Left Arm; Cuff Size: Standard Weight 212.375 lb Height 66 in Body Mass Index Calculated 34.28 kg/m2 Body Surface Area Calculated 2.05 m2 :36 Comments: [facility] Pulse 62 /min Comments: Pattern: Regular Respiration Rate 18 /min Comments: Pattern: Unlabored O2 SAT 96 % Comments: Room air BP Systolic 122 mm[Hg] Comments: Patient Position: Sitting; Cuff Location: Left Arm; Cuff Size: Large BP Diastolic 68 mm[Hg] Comments: Patient Position: Sitting; Cuff Location: Left Arm; Cuff Size: Large Weight 221.125 lb Height 66 in Body Mass Index Calculated 35.69 kg/m2 Body Surface Area Calculated 2.09 m2 :21 Temperature 97.3 f Pulse 75 /min Comments: Pattern: Regular Respiration Rate 16 /min Comments: Pattern: Unlabored O2 SAT 98 % Comments: Room air BP Systolic 110 mm[Hg] Comments: Patient Position: Sitting; Cuff Location: Left Arm; Cuff Size: Standard BP Diastolic 76 mm[Hg] Comments: Patient Position: Sitting; Cuff Location: Left Arm; Cuff Size: Standard Weight 215.25 lb Height 66 in Body Mass Index Calculated 34.74 kg/m2 Body Surface Area Calculated 2.06 m2 :43 Pulse 61 /min Comments: Pattern: Regular Respiration Rate 18 /min Comments: Pattern: Unlabored O2 SAT 91 % Comments: Room air BP Systolic 108 mm[Hg] Comments: Patient Position: Sitting; Cuff Location: Left Arm; Cuff Size: Large BP Diastolic 68 mm[Hg] Comments: Patient Position: Sitting; Cuff Location: Left Arm; Cuff Size: Large Weight 209.25 lb Height 66 in Body Mass Index Calculated 33.77 kg/m2 Body Surface Area Calculated 2.04 m2 :17 Temperature 98 f Pulse 115 /min Comments: Pattern: Regular Respiration Rate 16 /min Comments: Pattern: Unlabored O2 SAT 92 % Comments: Room air BP Systolic 118 mm[Hg] Comments: Patient Position: Sitting; Cuff Location: Left Arm; Cuff Size: Standard BP Diastolic 64 mm[Hg] Comments: Patient Position: Sitting; Cuff Location: Left Arm; Cuff Size: Standard Weight 214 lb Height 66 in Body Mass Index Calculated 34.54 kg/m2 Body Surface Area Calculated 2.06 m2 :25 Pulse 104 /min Comments: Pattern: Regular Respiration Rate 18 /min Comments: Pattern: Unlabored O2 SAT 93 % Comments: Room air BP Systolic 106 mm[Hg] Comments: Patient Position: Sitting; Cuff Location: Left Arm; Cuff Size: Large BP Diastolic 72 mm[Hg] Comments: Patient Position: Sitting; Cuff Location: Left Arm; Cuff Size: Large Weight 224 lb Height 66 in Body Mass Index Calculated 36.15 kg/m2 Body Surface Area Calculated 2.1 m2 :05 Temperature 98.2 f Pulse 85 /min Comments: Pattern: Regular Respiration Rate 17 /min Comments: Pattern: Unlabored O2 SAT 94 % Comments: Room air BP Systolic 116 mm[Hg] Comments: Patient Position: Sitting; Cuff Location: Left Arm; Cuff Size: Standard BP Diastolic 76 mm[Hg] Comments: Patient Position: Sitting; Cuff Location: Left Arm; Cuff Size: Standard Weight 243.125 lb Height 66 in Body Mass Index Calculated 39.24 kg/m2 Body Surface Area Calculated 2.17 m2 :03 Pulse 61 /min Comments: Pattern: Regular Respiration Rate 18 /min Comments: Pattern: Unlabored O2 SAT 94 % Comments: Room air BP Systolic 118 mm[Hg] Comments: Patient Position: Sitting; Cuff Location: Left Arm; Cuff Size: Standard BP Diastolic 64 mm[Hg] Comments: Patient Position: Sitting; Cuff Location: Left Arm; Cuff Size: Standard Weight 231.375 lb Height 66 in Body Mass Index Calculated 37.34 kg/m2 Body Surface Area Calculated 2.13 m2 :47 Comments: [facility] had [facility] glaucoma test donehearing w[facility] Pulse 88 /min Comments: Pattern: Regular Respiration Rate 18 /min Comments: Pattern: Unlabored O2 SAT 89 % Comments: Room air BP Systolic 138 mm[Hg] Comments: Patient Position: Sitting; Cuff Location: Left Arm; Cuff Size: Large BP Diastolic 82 mm[Hg] Comments: Patient Position: Sitting; Cuff Location: Left Arm; Cuff Size: Large Weight 233.125 lb Height 66 in Body Mass Index Calculated 37.63 kg/m2 Body Surface Area Calculated 2.13 m2 [id number] Pulse 60 /min Comments: Pattern: Regular Respiration Rate 18 /min Comments: Pattern: Unlabored O2 SAT 89 % Comments: Room air BP Systolic 140 mm[Hg] Comments: Patient Position: Sitting; Cuff Location: Left Arm; Cuff Size: Large BP Diastolic 72 mm[Hg] Comments: Patient Position: Sitting; Cuff Location: Left Arm; Cuff Size: Large Weight 223 lb Height 66 in Body Mass Index Calculated 35.99 kg/m2 Body Surface Area Calculated 2.1 m2 :28 Temperature 98.1 f Comments: Method: Temporal Pulse 94 /min Comments: Pattern: Regular Respiration Rate 16 /min Comments: Pattern: Unlabored O2 SAT 97 % Comments: Room air BP Systolic 126 mm[Hg] Comments: Patient Position: Sitting; Cuff Location: Left Arm; Cuff Size: Standard BP Diastolic 76 mm[Hg] Comments: Patient Position: Sitting; Cuff Location: Left Arm; Cuff Size: Standard Weight 223 lb Height 66 in Body Mass Index Calculated 35.99 kg/m2 Body Surface Area Calculated 2.1 m2 :00 Pulse 116 /min Comments: Pattern: Irregular Respiration Rate 18 /min Comments: Pattern: Unlabored O2 SAT 96 % Comments: Room air BP Systolic 142 mm[Hg] Comments: Patient Position: Sitting; Cuff Location: Left Arm; Cuff Size: Standard BP Diastolic 86 mm[Hg] Comments: Patient Position: Sitting; Cuff Location: Left Arm; Cuff Size: Standard Weight 219.125 lb Height 66 in Body Mass Index Calculated 35.37 kg/m2 Body Surface Area Calculated 2.08 m2 :05 Temperature 98.4 f Comments: Method: Temporal Pulse 58 /min Comments: Pattern: Regular Respiration Rate 17 /min Comments: Pattern: Unlabored O2 SAT 92 % Comments: Room air BP Systolic 126 mm[Hg] Comments: Patient Position: Sitting; Cuff Location: Left Arm; Cuff Size: Standard BP Diastolic 78 mm[Hg] Comments: Patient Position: Sitting; Cuff Location: Left Arm; Cuff Size: Standard Weight 219.125 lb Height 66 in Body Mass Index Calculated 35.37 kg/m2 Body Surface Area Calculated 2.08 m2 :30 Pulse 53 /min Comments: Pattern: Regular Respiration Rate 18 /min Comments: Pattern: Unlabored O2 SAT 95 % Comments: Room air BP Systolic 128 mm[Hg] Comments: Patient Position: Sitting; Cuff Location: Left Arm; Cuff Size: Large BP Diastolic 82 mm[Hg] Comments: Patient Position: Sitting; Cuff Location: Left Arm; Cuff Size: Large Weight 213.125 lb Height 66 in Body Mass Index Calculated 34.4 kg/m2 Body Surface Area Calculated 2.06 m2 :20 Pulse 73 /min Comments: Pattern: Regular Respiration Rate 18 /min Comments: Pattern: Unlabored O2 SAT 96 % Comments: Room air BP Systolic 150 mm[Hg] Comments: Patient Position: Sitting; Cuff Location: Left Arm; Cuff Size: Large BP Diastolic 84 mm[Hg] Comments: Patient Position: Sitting; Cuff Location: Left Arm; Cuff Size: Large Weight 208.375 lb Height 66 in Body Mass Index Calculated 33.63 kg/m2 Body Surface Area Calculated 2.04 m2 :14 Pulse 92 /min Comments: Pattern: Regular Respiration Rate 20 /min Comments: Pattern: Unlabored O2 SAT 94 % Comments: Room air BP Systolic 122 mm[Hg] Comments: Patient Position: Sitting; Cuff Location: Left Arm; Cuff Size: Large BP Diastolic 76 mm[Hg] Comments: Patient Position: Sitting; Cuff Location: Left Arm; Cuff Size: Large Weight 240.5 lb Height 66 in Body Mass Index Calculated 38.82 kg/m2 Body Surface Area Calculated 2.16 m2 :47 Pulse 88 /min Comments: Pattern: Regular Respiration Rate 18 /min Comments: Pattern: Unlabored O2 SAT 94 % Comments: Room air BP Systolic 122 mm[Hg] Comments: Patient Position: Sitting; Cuff Location: Left Arm; Cuff Size: Large BP Diastolic 68 mm[Hg] Comments: Patient Position: Sitting; Cuff Location: Left Arm; Cuff Size: Large Weight 246.5 lb Height 66 in Body Mass Index Calculated 39.79 kg/m2 Body Surface Area Calculated 2.19 m2 :12 Pulse 117 /min Comments: Pattern: Regular Respiration Rate 18 /min Comments: Pattern: Unlabored O2 SAT 94 % Comments: Room air BP Systolic 100 mm[Hg] Comments: Patient Position: Sitting; Cuff Location: Left Arm; Cuff Size: Standard BP Diastolic 68 mm[Hg] Comments: Patient Position: Sitting; Cuff Location: Left Arm; Cuff Size: Standard Weight 248 lb Height 66 in Body Mass Index Calculated 40.03 kg/m2 Body Surface Area Calculated 2.19 m2 :01 Temperature 97.6 f Comments: Method: Temporal Pulse 81 /min Comments: Pattern: Regular Respiration Rate 16 /min Comments: Pattern: Unlabored O2 SAT 96 % Comments: Room air BP Systolic 102 mm[Hg] Comments: Patient Position: Sitting; Cuff Location: Left Arm; Cuff Size: Large BP Diastolic 58 mm[Hg] Comments: Patient Position: Sitting; Cuff Location: Left Arm; Cuff Size: Large Weight 248 lb Height 66 in Body Mass Index Calculated 40.03 kg/m2 Body Surface Area Calculated 2.19 m2 :28 Temperature 97.4 f Comments: Method: Tympanic Pulse 63 /min Comments: Pattern: Regular Respiration Rate 18 /min Comments: Pattern: Unlabored O2 SAT 90 % Comments: Room air BP Systolic 138 mm[Hg] Comments: Patient Position: Sitting; Cuff Location: Left Arm; Cuff Size: Standard BP Diastolic 78 mm[Hg] Comments: Patient Position: Sitting; Cuff Location: Left Arm; Cuff Size: Standard Weight 248 lb Height 66 in Body Mass Index Calculated 40.03 kg/m2 Body Surface Area Calculated 2.19 m2 :53 Pulse 68 /min Comments: Pattern: Regular Respiration Rate 20 /min Comments: Pattern: Unlabored O2 SAT 89 % Comments: Room air BP Systolic 142 mm[Hg] Comments: Patient Position: Sitting; Cuff Location: Left Arm; Cuff Size: Large BP Diastolic 60 mm[Hg] Comments: Patient Position: Sitting; Cuff Location: Left Arm; Cuff Size: Large Weight 244.8125 lb Height 66 in Body Mass Index Calculated 39.51 kg/m2 Body Surface Area Calculated 2.18 m2 :17 Pulse 77 /min Comments: Pattern: Regular Respiration Rate 20 /min Comments: Pattern: Unlabored O2 SAT 92 % Comments: Room air BP Systolic 122 mm[Hg] Comments: Patient Position: Sitting; Cuff Location: Left Arm; Cuff Size: Large BP Diastolic 70 mm[Hg] Comments: Patient Position: Sitting; Cuff Location: Left Arm; Cuff Size: Large Weight 239.125 lb Height 66 in Body Mass Index Calculated 38.6 kg/m2 Body Surface Area Calculated 2.16 m2 :07 Pulse 62 /min Comments: Pattern: Regular Respiration Rate 18 /min Comments: Pattern: Unlabored O2 SAT 97 % Comments: Room air BP Systolic 138 mm[Hg] Comments: Patient Position: Sitting; Cuff Location: Left Arm; Cuff Size: Large BP Diastolic 78 mm[Hg] Comments: Patient Position: Sitting; Cuff Location: Left Arm; Cuff Size: Large Weight 237.125 lb Height 66 in Body Mass Index Calculated 38.27 kg/m2 Body Surface Area Calculated 2.15 m2 :02 Pulse 62 /min Comments: Pattern: Regular Respiration Rate 20 /min Comments: Pattern: Unlabored O2 SAT 91 % Comments: Room air BP Systolic 122 mm[Hg] Comments: Patient Position: Sitting; Cuff Location: Left Arm; Cuff Size: Large BP Diastolic 62 mm[Hg] Comments: Patient Position: Sitting; Cuff Location: Left Arm; Cuff Size: Large Weight 245.125 lb Height 66 in Body Mass Index Calculated 39.56 kg/m2 Body Surface Area Calculated 2.18 m2 :15 Pulse 85 /min Comments: Pattern: Regular Respiration Rate 18 /min Comments: Pattern: Unlabored O2 SAT 93 % Comments: Room air BP Systolic 124 mm[Hg] Comments: Patient Position: Sitting; Cuff Location: Left Arm; Cuff Size: Large BP Diastolic 82 mm[Hg] Comments: Patient Position: Sitting; Cuff Location: Left Arm; Cuff Size: Large Weight 249.125 lb Height 66 in Body Mass Index Calculated 40.21 kg/m2 Body Surface Area Calculated 2.2 m2 :36 Pulse 67 /min Comments: Pattern: Regular Respiration Rate 18 /min Comments: Pattern: Unlabored O2 SAT 97 % Comments: Room air BP Systolic 124 mm[Hg] Comments: Patient Position: Sitting; Cuff Location: Left Arm; Cuff Size: Large BP Diastolic 78 mm[Hg] Comments: Patient Position: Sitting; Cuff Location: Left Arm; Cuff Size: Large Weight 236 lb Height 66 in Body Mass Index Calculated 38.09 kg/m2 Body Surface Area Calculated 2.15 m2 :17 Pulse 60 /min Comments: Pattern: Regular Respiration Rate 18 /min BP Systolic 118 mm[Hg] Comments: Patient Position: Sitting; Cuff Location: Left Arm; Cuff Size: Standard BP Diastolic 70 mm[Hg] Comments: Patient Position: Sitting; Cuff Location: Left Arm; Cuff Size: Standard Weight 236 lb Height 66 in Body Mass Index Calculated 38.09 kg/m2 Body Surface Area Calculated 2.15 m2 :45 Pulse 55 /min Comments: Pattern: Regular O2 SAT 98 % Comments: Room air BP Systolic 132 mm[Hg] Comments: Patient Position: Sitting; Cuff Location: Left Arm; Cuff Size: Standard BP Diastolic 82 mm[Hg] Comments: Patient Position: Sitting; Cuff Location: Left Arm; Cuff Size: Standard [id number] Temperature 97 f Comments: Method: Tympanic Pulse 71 /min Comments: Pattern: Regular Respiration Rate 18 /min Comments: Pattern: Unlabored O2 SAT 98 % Comments: Room air BP Systolic 162 mm[Hg] Comments: Patient Position: Sitting; Cuff Location: Left Arm; Cuff Size: Large BP Diastolic 90 mm[Hg] Comments: Patient Position: Sitting; Cuff Location: Left Arm; Cuff Size: Large Weight 236 lb Height 66 in Body Mass Index Calculated 38.09 kg/m2 Body Surface Area Calculated 2.15 m2 :27 Temperature 96.8 f Comments: Method: Temporal Pulse 71 /min Comments: Pattern: Regular Respiration Rate 16 /min Comments: Pattern: Unlabored O2 SAT 97 % Comments: Room air BP Systolic 130 mm[Hg] Comments: Patient Position: Sitting; Cuff Location: Left Arm; Cuff Size: Standard BP Diastolic 74 mm[Hg] Comments: Patient Position: Sitting; Cuff Location: Left Arm; Cuff Size: Standard Weight 233 lb Height 66 in Body Mass Index Calculated 37.61 kg/m2 Body Surface Area Calculated 2.13 m2 [id number] Temperature 96 f Comments: Method: Oral Pulse 62 /min Comments: Pattern: Regular Respiration Rate 20 /min Comments: Pattern: Wheezing O2 SAT 97 % Comments: Room air BP Systolic 140 mm[Hg] Comments: Patient Position: Sitting; Cuff Location: Left Arm; Cuff Size: Large BP Diastolic 82 mm[Hg] Comments: Patient Position: Sitting; Cuff Location: Left Arm; Cuff Size: Large Weight 229.125 lb Height 66 in Body Mass Index Calculated 36.98 kg/m2 Body Surface Area Calculated 2.12 m2 [id number] Pulse 58 /min Comments: Pattern: Regular Respiration Rate 18 /min Comments: Pattern: Unlabored O2 SAT 97 % Comments: Room air BP Systolic 128 mm[Hg] Comments: Patient Position: Sitting; Cuff Location: Left Arm; Cuff Size: Large BP Diastolic 84 mm[Hg] Comments: Patient Position: Sitting; Cuff Location: Left Arm; Cuff Size: Large Weight 231.1875 lb Height 66 in Body Mass Index Calculated 37.31 kg/m2 Body Surface Area Calculated 2.13 m2 :06 Pulse 72 /min Comments: Pattern: Regular Respiration Rate 20 /min Comments: Pattern: Unlabored BP Systolic 128 mm[Hg] Comments: Patient Position: Sitting; Cuff Location: Left Arm; Cuff Size: Large BP Diastolic 82 mm[Hg] Comments: Patient Position: Sitting; Cuff Location: Left Arm; Cuff Size: Large Weight 227.375 lb Height 66 in Body Mass Index Calculated 36.7 kg/m2 Body Surface Area Calculated 2.11 m2 :36 Temperature 97.5 f Comments: Method: Oral Pulse 64 /min Comments: Pattern: Regular Respiration Rate 20 /min Comments: Pattern: Unlabored BP Systolic 142 mm[Hg] Comments: Patient Position: Sitting; Cuff Location: Left Arm; Cuff Size: Standard BP Diastolic 82 mm[Hg] Comments: Patient Position: Sitting; Cuff Location: Left Arm; Cuff Size: Standard Weight 218.3125 lb Height 66 in Body Mass Index Calculated 35.24 kg/m2 Body Surface Area Calculated 2.08 m2 :34 Temperature 97.3 f Comments: Method: Oral Pulse 72 /min Comments: Pattern: Regular Respiration Rate 20 /min Comments: Pattern: Unlabored O2 SAT 96 % Comments: Room air BP Systolic 128 mm[Hg] Comments: Patient Position: Sitting; Cuff Location: Left Arm; Cuff Size: Large BP Diastolic 82 mm[Hg] Comments: Patient Position: Sitting; Cuff Location: Left Arm; Cuff Size: Large Weight 223.0625 lb Height 66 in Body Mass Index Calculated 36 kg/m2 Body Surface Area Calculated 2.1 m2 :48 Pulse 76 /min Comments: Pattern: Regular Respiration Rate 16 /min O2 SAT 97 % Comments: Room air BP Systolic 136 mm[Hg] Comments: Patient Position: Sitting; Cuff Location: Left Arm; Cuff Size: Standard BP Diastolic 80 mm[Hg] Comments: Patient Position: Sitting; Cuff Location: Left Arm; Cuff Size: Standard Weight 224.3125 lb Height 66 in Body Mass Index Calculated 36.2 kg/m2 Body Surface Area Calculated 2.1 m2 :48 Temperature 97.5 f Comments: Method: Oral Pulse 64 /min Comments: Pattern: Regular Respiration Rate 16 /min Comments: Pattern: Unlabored BP Systolic 130 mm[Hg] Comments: Patient Position: Sitting; Cuff Location: Left Arm; Cuff Size: Standard BP Diastolic 78 mm[Hg] Comments: Patient Position: Sitting; Cuff Location: Left Arm; Cuff Size: Standard Weight 224.3125 lb Height 66 in Body Mass Index Calculated 36.2 kg/m2 Body Surface Area Calculated 2.1 m2 :23 Temperature 97.6 f Comments: Method: Oral Pulse 72 /min Comments: Pattern: Regular Respiration Rate 18 /min Comments: Pattern: Unlabored BP Systolic 148 mm[Hg] Comments: Patient Position: Sitting; Cuff Location: Left Arm; Cuff Size: Large BP Diastolic 90 mm[Hg] Comments: Patient Position: Sitting; Cuff Location: Left Arm; Cuff Size: Large Weight 225.3125 lb Height 66 in Body Mass Index Calculated 36.37 kg/m2 Body Surface Area Calculated 2.1 m2 :56 Temperature 97.3 f Comments: Method: Oral Pulse 56 /min Comments: Pattern: Regular Respiration Rate 16 /min Comments: Pattern: Unlabored BP Systolic 132 mm[Hg] Comments: Patient Position: Sitting; Cuff Location: Left Arm; Cuff Size: Large BP Diastolic 78 mm[Hg] Comments: Patient Position: Sitting; Cuff Location: Left Arm; Cuff Size: Large Weight 223.4375 lb Height 66 in Body Mass Index Calculated 36.06 kg/m2 Body Surface Area Calculated 2.1 m2 :07 Pulse 60 /min Comments: Pattern: Regular Respiration Rate 20 /min Comments: Pattern: Unlabored BP Systolic 128 mm[Hg] Comments: Patient Position: Sitting; Cuff Location: Left Arm; Cuff Size: Large BP Diastolic 78 mm[Hg] Comments: Patient Position: Sitting; Cuff Location: Left Arm; Cuff Size: Large Weight 225.3125 lb Height 66 in Body Mass Index Calculated 36.37 kg/m2 Body Surface Area Calculated 2.1 m2 :26 Pulse 80 /min Comments: Pattern: Regular Respiration Rate 20 /min Comments: Pattern: Unlabored BP Systolic 142 mm[Hg] Comments: Patient Position: Sitting; Cuff Location: Left Arm; Cuff Size: Standard BP Diastolic 80 mm[Hg] Comments: Patient Position: Sitting; Cuff Location: Left Arm; Cuff Size: Standard Weight 223.125 lb Height 66 in Body Mass Index Calculated 36.01 kg/m2 Body Surface Area Calculated 2.1 m2 :08 Comments: rechecked bp 140/76 Temperature 97.8 f Comments: Method: Oral Pulse 64 /min Comments: Pattern: Regular Respiration Rate 20 /min Comments: Pattern: Unlabored BP Systolic 150 mm[Hg] Comments: Patient Position: Sitting; Cuff Location: Left Arm; Cuff Size: Large BP Diastolic 82 mm[Hg] Comments: Patient Position: Sitting; Cuff Location: Left Arm; Cuff Size: Large Weight 223.125 lb Height 66 in Body Mass Index Calculated 36.01 kg/m2 Body Surface Area Calculated 2.1 m2 :27 Pulse 68 /min Comments: Pattern: Regular Respiration Rate 20 /min Comments: Pattern: Unlabored BP Systolic 122 mm[Hg] Comments: Patient Position: Sitting; Cuff Location: Left Arm; Cuff Size: Large BP Diastolic 80 mm[Hg] Comments: Patient Position: Sitting; Cuff Location: Left Arm; Cuff Size: Large Weight 221.5 lb Height 66 in Body Mass Index Calculated 35.75 kg/m2 Body Surface Area Calculated 2.09 m2 :44 Pulse 60 /min Comments: Pattern: Regular Respiration Rate 20 /min Comments: Pattern: Unlabored BP Systolic 122 mm[Hg] Comments: Patient Position: Sitting; Cuff Location: Left Arm; Cuff Size: Large BP Diastolic 88 mm[Hg] Comments: Patient Position: Sitting; Cuff Location: Left Arm; Cuff Size: Large Weight 221.5 lb Height 66 in Body Mass Index Calculated 35.75 kg/m2 Body Surface Area Calculated 2.09 m2 :25 Temperature 97 f Pulse 56 /min Comments: Pattern: Regular Respiration Rate 16 /min Comments: Pattern: Unlabored BP Systolic 128 mm[Hg] Comments: Patient Position: Sitting; Cuff Location: Left Arm; Cuff Size: Large BP Diastolic 90 mm[Hg] Comments: Patient Position: Sitting; Cuff Location: Left Arm; Cuff Size: Large Weight 221.5 lb Height 66 in Body Mass Index Calculated 35.75 kg/m2 Body Surface Area Calculated 2.09 m2 :02 Temperature 97.6 f Comments: Method: Oral Pulse 68 /min Comments: Pattern: Regular Respiration Rate 20 /min Comments: Pattern: Unlabored BP Systolic 122 mm[Hg] Comments: Patient Position: Sitting; Cuff Location: Left Arm; Cuff Size: Large BP Diastolic 78 mm[Hg] Comments: Patient Position: Sitting; Cuff Location: Left Arm; Cuff Size: Large Weight 219 lb Height 66 in Body Mass Index Calculated 35.35 kg/m2 Body Surface Area Calculated 2.08 m2 :19 Comments: before- BP 142/89 Sp02- 98% M-[id number]-FY 150/84 Sp02 97% P-60 Temperature 97.9 f Pulse 58 /min Comments: Pattern: Regular Respiration Rate 18 /min Comments: Pattern: Unlabored O2 SAT 98 % Comments: Room air BP Systolic 142 mm[Hg] Comments: Patient Position: Sitting; Cuff Location: Left Arm; Cuff Size: Standard BP Diastolic 89 mm[Hg] Comments: Patient Position: Sitting; Cuff Location: Left Arm; Cuff Size: Standard Weight 217.0625 lb Height 66 in Body Mass Index Calculated 35.03 kg/m2 Body Surface Area Calculated 2.07 m2 :20 Pulse 68 /min Comments: Pattern: Regular Respiration Rate 20 /min Comments: Pattern: Unlabored BP Systolic 162 mm[Hg] Comments: Patient Position: Sitting; Cuff Location: Left Arm; Cuff Size: Standard BP Diastolic 98 mm[Hg] Comments: Patient Position: Sitting; Cuff Location: Left Arm; Cuff Size: Standard Weight 218.1875 lb Height 66 in Body Mass Index Calculated 35.22 kg/m2 Body Surface Area Calculated 2.08 m2 :28 Temperature 98.1 f Pulse 68 /min Comments: Pattern: Regular Respiration Rate 20 /min Comments: Pattern: Unlabored BP Systolic 122 mm[Hg] Comments: Patient Position: Sitting; Cuff Location: Left Arm; Cuff Size: Large BP Diastolic 70 mm[Hg] Comments: Patient Position: Sitting; Cuff Location: Left Arm; Cuff Size: Large Weight 218.1875 lb Height 66 in Body Mass Index Calculated 35.22 kg/m2 Body Surface Area Calculated 2.08 m2 :34 Pulse 68 /min Comments: Pattern: Regular Respiration Rate 20 /min Comments: Pattern: Unlabored BP Systolic 122 mm[Hg] Comments: Patient Position: Sitting; Cuff Location: Left Arm; Cuff Size: Large BP Diastolic 78 mm[Hg] Comments: Patient Position: Sitting; Cuff Location: Left Arm; Cuff Size: Large Weight 218.125 lb Height 66 in Body Mass Index Calculated 35.21 kg/m2 Body Surface Area Calculated 2.08 m2 :44 Pulse 60 /min Comments: Pattern: Regular Respiration Rate 20 /min Comments: Pattern: Unlabored BP Systolic 128 mm[Hg] Comments: Patient Position: Sitting; Cuff Location: Left Arm; Cuff Size: Large BP Diastolic 78 mm[Hg] Comments: Patient Position: Sitting; Cuff Location: Left Arm; Cuff Size: Large Weight 215.375 lb Height 66 in Body Mass Index Calculated 34.76 kg/m2 Body Surface Area Calculated 2.06 m2 :38 Pulse 60 /min Comments: Pattern: Regular Respiration Rate 20 /min Comments: Pattern: Unlabored BP Systolic 138 mm[Hg] Comments: Patient Position: Sitting; Cuff Location: Left Arm; Cuff Size: Large BP Diastolic 82 mm[Hg] Comments: Patient Position: Sitting; Cuff Location: Left Arm; Cuff Size: Large Weight 215.375 lb Height 66 in Body Mass Index Calculated 34.76 kg/m2 Body Surface Area Calculated 2.06 m2 :19 Temperature 96.7 f Comments: Method: Oral Pulse 68 /min Comments: Pattern: Regular Respiration Rate 17 /min Comments: Pattern: Unlabored BP Systolic 142 mm[Hg] Comments: Patient Position: Sitting; Cuff Location: Left Arm; Cuff Size: Standard BP Diastolic 84 mm[Hg] Comments: Patient Position: Sitting; Cuff Location: Left Arm; Cuff Size: Standard Weight 214.25 lb :24 Temperature 95.4 f Comments: Method: Oral Pulse 68 /min Comments: Pattern: Regular Respiration Rate 18 /min Comments: Pattern: Unlabored BP Systolic 134 mm[Hg] Comments: Patient Position: Sitting; Cuff Location: Left Arm; Cuff Size: Standard BP Diastolic 82 mm[Hg] Comments: Patient Position: Sitting; Cuff Location: Left Arm; Cuff Size: Standard Weight 213 lb Height 66 in Body Mass Index Calculated 34.38 kg/m2 Body Surface Area Calculated 2.05 m2 :59 Temperature 97.2 f Comments: Method: Oral Pulse 66 /min Comments: Pattern: Regular Respiration Rate 17 /min Comments: Pattern: Unlabored BP Systolic 130 mm[Hg] Comments: Patient Position: Sitting; Cuff Location: Left Arm; Cuff Size: Standard BP Diastolic 78 mm[Hg] Comments: Patient Position: Sitting; Cuff Location: Left Arm; Cuff Size: Standard Weight 213 lb Height 66 in Body Mass Index Calculated 34.38 kg/m2 Body Surface Area Calculated 2.05 m2 :28 Pulse 60 /min Comments: Pattern: Regular Respiration Rate 20 /min Comments: Pattern: Unlabored BP Systolic 122 mm[Hg] Comments: Patient Position: Sitting; Cuff Location: Left Arm; Cuff Size: Large BP Diastolic 78 mm[Hg] Comments: Patient Position: Sitting; Cuff Location: Left Arm; Cuff Size: Large Weight 213 lb Height 66 in Body Mass Index Calculated 34.38 kg/m2 Body Surface Area Calculated 2.05 m2 :41 Temperature 98.3 f Comments: Method: Oral Pulse 60 /min Comments: Pattern: Regular Respiration Rate 18 /min Comments: Pattern: Unlabored BP Systolic 138 mm[Hg] Comments: Patient Position: Sitting; Cuff Location: Left Arm; Cuff Size: Large BP Diastolic 84 mm[Hg] Comments: Patient Position: Sitting; Cuff Location: Left Arm; Cuff Size: Large Weight 217.375 lb :10 Temperature 97.2 f Comments: Method: Oral Pulse 60 /min Comments: Pattern: Regular Respiration Rate 16 /min Comments: Pattern: Unlabored BP Systolic 134 mm[Hg] Comments: Patient Position: Sitting; Cuff Location: Left Arm; Cuff Size: Standard BP Diastolic 84 mm[Hg] Comments: Patient Position: Sitting; Cuff Location: Left Arm; Cuff Size: Standard Weight 218 lb :40 Pulse 88 /min Comments: Pattern: Regular Respiration Rate 20 /min Comments: Pattern: Unlabored BP Systolic 142 mm[Hg] Comments: Patient Position: Sitting; Cuff Location: Left Arm; Cuff Size: Standard BP Diastolic 90 mm[Hg] Comments: Patient Position: Sitting; Cuff Location: Left Arm; Cuff Size: Standard Weight 218.4375 lb Height 66 in Body Mass Index Calculated 35.26 kg/m2 Body Surface Area Calculated 2.08 m2 :24 Pulse 88 /min Comments: Pattern: Regular Respiration Rate 20 /min Comments: Pattern: Unlabored BP Systolic 144 mm[Hg] Comments: Patient Position: Sitting; Cuff Location: Left Arm; Cuff Size: Large BP Diastolic 98 mm[Hg] Comments: Patient Position: Sitting; Cuff Location: Left Arm; Cuff Size: Large Weight 222.5625 lb Height 66 in Body Mass Index Calculated 35.92 kg/m2 Body Surface Area Calculated 2.09 m2 Head Circumference 0.00 cm :11 Temperature 99 f Comments: Method: Oral Pulse 64 /min Comments: Pattern: Regular Respiration Rate 20 /min Comments: Pattern: Unlabored O2 SAT 96 % Comments: Room air BP Systolic 140 mm[Hg] Comments: Patient Position: Sitting; Cuff Location: Right Arm; Cuff Size: Large BP Diastolic 82 mm[Hg] Comments: Patient Position: Sitting; Cuff Location: Right Arm; Cuff Size: Large Weight 0 lb Height 0 in Head Circumference 0.00 cm :45 Pulse 80 /min Comments: Pattern: Regular Respiration Rate 20 /min Comments: Pattern: Unlabored BP Systolic 132 mm[Hg] Comments: Patient Position: Sitting; Cuff Location: Left Arm; Cuff Size: Large BP Diastolic 78 mm[Hg] Comments: Patient Position: Sitting; Cuff Location: Left Arm; Cuff Size: Large Weight 222.5625 lb Height 66 in Body Mass Index Calculated 35.92 kg/m2 Body Surface Area Calculated 2.09 m2 Head Circumference 0.00 cm :08 Pulse 72 /min Comments: Pattern: Regular Respiration Rate 20 /min Comments: Pattern: Unlabored O2 SAT 96 % Comments: Room air BP Systolic 138 mm[Hg] Comments: Patient Position: Sitting; Cuff Location: Left Arm; Cuff Size: Large BP Diastolic 72 mm[Hg] Comments: Patient Position: Sitting; Cuff Location: Left Arm; Cuff Size: Large Weight 0 lb Height 0 in Head Circumference 0.00 cm :56 Temperature 97.8 f Comments: Method: Oral Pulse 64 /min Comments: Pattern: Regular Respiration Rate 18 /min Comments: Pattern: Unlabored O2 SAT 97 % Comments: Room air BP Systolic 118 mm[Hg] Comments: Patient Position: Sitting; Cuff Location: Left Arm; Cuff Size: Large BP Diastolic 68 mm[Hg] Comments: Patient Position: Sitting; Cuff Location: Left Arm; Cuff Size: Large Weight 0 lb Height 66 in Head Circumference 0.00 cm :55 Pulse 64 /min Comments: Pattern: Regular Respiration Rate 20 /min Comments: Pattern: Unlabored BP Systolic 122 mm[Hg] Comments: Patient Position: Sitting; Cuff Location: Left Arm; Cuff Size: Large BP Diastolic 80 mm[Hg] Comments: Patient Position: Sitting; Cuff Location: Left Arm; Cuff Size: Large Weight 218.375 lb Height 0 in Head Circumference 0.00 cm :08 Temperature 95.8 f Comments: Method: Oral Pulse 80 /min Comments: Pattern: Regular Respiration Rate 20 /min Comments: Pattern: Unlabored BP Systolic 130 mm[Hg] Comments: Patient Position: Sitting; Cuff Location: Left Arm; Cuff Size: Large BP Diastolic 82 mm[Hg] Comments: Patient Position: Sitting; Cuff Location: Left Arm; Cuff Size: Large Weight 218.375 lb Height 0 in Head Circumference 0.00 cm :39 Pulse 72 /min Comments: Pattern: Regular Respiration Rate 20 /min Comments: Pattern: Unlabored BP Systolic 138 mm[Hg] Comments: Patient Position: Sitting; Cuff Location: Left Arm; Cuff Size: Large BP Diastolic 90 mm[Hg] Comments: Patient Position: Sitting; Cuff Location: Left Arm; Cuff Size: Large Weight 218.375 lb Height 0 in Head Circumference 0.00 cm :30 Pulse 64 /min Comments: Pattern: Regular Respiration Rate 20 /min Comments: Pattern: Unlabored BP Systolic 132 mm[Hg] Comments: Patient Position: Sitting; Cuff Location: Left Arm; Cuff Size: Standard BP Diastolic 80 mm[Hg] Comments: Patient Position: Sitting; Cuff Location: Left Arm; Cuff Size: Standard Weight 220.25 lb Height 0 in Head Circumference 0.00 cm :00 Pulse 80 /min Comments: Pattern: Regular Respiration Rate 20 /min Comments: Pattern: Unlabored BP Systolic 118 mm[Hg] Comments: Patient Position: Sitting; Cuff Location: Right Arm; Cuff Size: Large BP Diastolic 78 mm[Hg] Comments: Patient Position: Sitting; Cuff Location: Right Arm; Cuff Size: Large Weight 220.4375 lb Height 0 in Head Circumference 0.00 cm :37 Pulse 72 /min Comments: Pattern: Regular Respiration Rate 16 /min Comments: Pattern: Unlabored BP Systolic 138 mm[Hg] Comments: Patient Position: Sitting; Cuff Location: Left Arm; Cuff Size: Large BP Diastolic 88 mm[Hg] Comments: Patient Position: Sitting; Cuff Location: Left Arm; Cuff Size: Large Weight 220.4375 lb Height 0 in Head Circumference 0.00 cm :22 Pulse 72 /min Comments: Pattern: Regular Respiration Rate 20 /min Comments: Pattern: Unlabored BP Systolic 148 mm[Hg] Comments: Patient Position: Sitting; Cuff Location: Right Arm; Cuff Size: Standard BP Diastolic 88 mm[Hg] Comments: Patient Position: Sitting; Cuff Location: Right Arm; Cuff Size: Standard Weight 220.5625 lb Height 0 in Head Circumference 0.00 cm :16 Pulse 80 /min Comments: Pattern: Regular Respiration Rate 20 /min Comments: Pattern: Unlabored BP Systolic 142 mm[Hg] Comments: Patient Position: Sitting; Cuff Location: Right Arm; Cuff Size: Large BP Diastolic 70 mm[Hg] Comments: Patient Position: Sitting; Cuff Location: Right Arm; Cuff Size: Large Weight 220.5625 lb Height 0 in Head Circumference 0.00 cm :48 Temperature 97.7 f Comments: Method: Oral Pulse 60 /min Comments: Pattern: Regular Respiration Rate 20 /min Comments: Pattern: Unlabored BP Systolic 128 mm[Hg] Comments: Patient Position: Sitting; Cuff Location: Left Arm; Cuff Size: Standard BP Diastolic 82 mm[Hg] Comments: Patient Position: Sitting; Cuff Location: Left Arm; Cuff Size: Standard Weight 220.5625 lb Height 0 in Head Circumference 0.00 cm :55 Pulse 88 /min Comments: Pattern: Regular Respiration Rate 20 /min Comments: Pattern: Unlabored BP Systolic 162 mm[Hg] Comments: Patient Position: Sitting; Cuff Location: Right Arm; Cuff Size: Standard BP Diastolic 90 mm[Hg] Comments: Patient Position: Sitting; Cuff Location: Right Arm; Cuff Size: Standard Weight 220.5625 lb Height 0 in Head Circumference 0.00 cm :04 Pulse 88 /min Comments: Pattern: Regular Respiration Rate 16 /min Comments: Pattern: Unlabored BP Systolic 158 mm[Hg] Comments: Patient Position: Sitting; Cuff Location: Left Arm; Cuff Size: Standard BP Diastolic 88 mm[Hg] Comments: Patient Position: Sitting; Cuff Location: Left Arm; Cuff Size: Standard Weight 220.5625 lb Height 0 in Head Circumference 0.00 cm :46 Pulse 64 /min Comments: Pattern: Regular Respiration Rate 20 /min Comments: Pattern: Unlabored BP Systolic 140 mm[Hg] Comments: Patient Position: Sitting; Cuff Location: Left Arm; Cuff Size: Large BP Diastolic 88 mm[Hg] Comments: Patient Position: Sitting; Cuff Location: Left Arm; Cuff Size: Large Weight 221.0625 lb Height 0 in Head Circumference 0.00 cm :20 Temperature 98.1 f Comments: Method: Oral Pulse 60 /min Comments: Pattern: Regular Respiration Rate 20 /min Comments: Pattern: Unlabored BP Systolic 144 mm[Hg] Comments: Patient Position: Sitting; Cuff Location: Left Arm; Cuff Size: Standard BP Diastolic 90 mm[Hg] Comments: Patient Position: Sitting; Cuff Location: Left Arm; Cuff Size: Standard Weight 223 lb Height 0 in Head Circumference 0.00 cm :34 Pulse 72 /min Comments: Pattern: Regular Respiration Rate 17 /min Comments: Pattern: Unlabored BP Systolic 142 mm[Hg] Comments: Patient Position: Sitting; Cuff Location: Left Arm; Cuff Size: Standard BP Diastolic 80 mm[Hg] Comments: Patient Position: Sitting; Cuff Location: Left Arm; Cuff Size: Standard Weight 223.0625 lb Height 0 in Head Circumference 0.00 cm :50 Temperature 97.9 f Comments: Method: Undefined Pulse 76 /min Comments: Pattern: Regular Respiration Rate 16 /min Comments: Pattern: Undefined BP Systolic 132 mm[Hg] Comments: Patient Position: Sitting; Cuff Location: Left Arm; Cuff Size: Standard BP Diastolic 70 mm[Hg] Comments: Patient Position: Sitting; Cuff Location: Left Arm; Cuff Size: Standard Weight 0 lb Height 0 in Head Circumference 0.00 cm :47 Temperature 98 f Comments: Method: Oral Pulse 72 /min Comments: Pattern: Regular Respiration Rate 18 /min Comments: Pattern: Unlabored BP Systolic 132 mm[Hg] Comments: Patient Position: Sitting; Cuff Location: Left Arm; Cuff Size: Standard BP Diastolic 76 mm[Hg] Comments: Patient Position: Sitting; Cuff Location: Left Arm; Cuff Size: Standard Weight 0 lb Height 0 in Head Circumference 0.00 cm Results Date Description Value Details :06 CBC W/Diff, Automated Comments: [facility] [id number] [place], [place], [id number] Absolute Lymph 1.37 {X10_3/ul} (Normal) Range: 0.83-4.51 Absolute Neut 4.9 {X10_3/uL} (Normal) Range: 2.0-7.7 IM GRAN % 0.300 % (Normal) Range: 0.0-0.9 Comments: IG% - Immature Granulocytes (promyelocytes, myelocytes andmetamyelocytes) > 1% indicates that a LEFT SHIFT is Present. BASO% 0.4 % (Normal) Range: 0-1 EO% 2.9 % (Normal) Range: 0-5 MONO% 9.1 % (Normal) Range: 0-10 LY% 19.2 % (Normal) Range: 19-41 NEUT% 68.1 % (Normal) Range: 47-70 MPV 10.7 fL (Normal) Range: 6.2-12.0 PLT 179 K/mm3 (Normal) Range: 150-450 RDW SD 50.5 fL (Abnormal) Range: 35.1-43.9 RDW CV 14.7 % (Abnormal) Range: 11.6-14.6 MCHC 31.9 {g/gl} (Abnormal) Range: 32-36 MCH 29.7 pg (Normal) Range: 27.0-32.0 MCV 93.3 fL (Normal) Range: 80-94 HCT 40.5 % (Normal) Range: 40-54 HGB 12.9 g/dL (Abnormal) Range: 13.0-16.5 RBC 4.34 {M/mm3} (Abnormal) Range: 4.6-6.2 WBC 7.1 K/mm3 (Normal) Range: 4.4-11.0 [id number] Comprehensive Metabolic Profil Comments: [facility] [id number] [place], [place], [id number] GAP 12 (Normal) Range: 5-15 CO2 26.0 mmol/L (Normal) Range: 21.0-32.0 CL 104 mmol/L (Normal) Range: 98-107 K 3.6 mmol/L (Normal) Range: 3.5-5.1 NA 142 mmol/L (Normal) Range: 136-145 T BILI 1.20 mg/dL (Abnormal) Range: 0.20-1.00 ALT 21 U/L (Normal) Range: 16-61 ALK P 108 U/L (Normal) Range: 45-117 AST 20 U/L (Normal) Range: 15-37 CA 8.7 mg/dL (Normal) Range: 8.5-10.1 A/G 0.9 {RATIO} (Normal) Range: 0.9-2.4 GLOB 3.8 g/dL (Normal) Range: 2.2-4.2 ALB 3.6 g/dL (Normal) Range: 3.2-5.0 T PROT 7.4 g/dL (Normal) Range: 6.4-8.2 BUN/CRE 16.6 {RATIO} (Normal) Range: 10-20 EST GFR - AA 53 mL/min (Abnormal) Comments: GFR Calc EST GFR 44 mL/min (Abnormal) Comments: Non- GFR Calc CREAT,SERUM 1.63 mg/dL (Abnormal) Range: 0.70-1.30 Comments: The validity of the calculated GFR AND GFRAA in patients over70 years has not been determined. Clinical correlation isessential. BUN 27 mg/dL (Abnormal) Range: 7-18 GLU 108 mg/dL (Abnormal) Range: 74-106 Comments: Fasting Glucose result from 100 to 125 mg/dLsuggests IMPAIRED HOMEOSTASIS per A.D.A. criteria.Please note revised GLUCOSE reference range [id number]. [id number] Uric Acid Comments: [facility] [id number] [facility]. [place], [place], [address] URIC 9.2 mg/dL (Abnormal) Range: 3.5-7.2 Comments: The drugs N-Acetylcysteine and Metamizole may falselydepress this assay. [id number] CBC W/Diff, Automated Comments: [facility] [address] [place], [place], [address] Absolute Lymph 1.40 {X10_3/ul} (Normal) Range: 0.83-4.51 Absolute Neut 4.0 {X10_3/uL} (Normal) Range: 2.0-7.7 IM GRAN % 0.200 % (Normal) Range: 0.0-0.9 Comments: IG% - Immature Granulocytes (promyelocytes, myelocytes andmetamyelocytes) > 1% indicates that a LEFT SHIFT is Present. BASO% 0.6 % (Normal) Range: 0-1 EO% 3.7 % (Normal) Range: 0-5 MONO% 10.7 % (Abnormal) Range: 0-10 LY% 21.8 % (Normal) Range: 19-41 NEUT% 63.0 % (Normal) Range: 47-70 MPV 11.0 fL (Normal) Range: 6.2-12.0 PLT 167 K/mm3 (Normal) Range: 150-450 RDW SD 44.5 fL (Abnormal) Range: 35.1-43.9 RDW CV 13.5 % (Normal) Range: 11.6-14.6 MCHC 32.7 {g/gl} (Normal) Range: 32-36 MCH 30.0 pg (Normal) Range: 27.0-32.0 MCV 91.8 fL (Normal) Range: 80-94 HCT 40.1 % (Normal) Range: 40-54 HGB 13.1 g/dL (Normal) Range: 13.0-16.5 RBC 4.37 {M/mm3} (Abnormal) Range: 4.6-6.2 WBC 6.4 K/mm3 (Normal) Range: 4.4-11.0 18-Kbq-254562:39 Comprehensive Metabolic Profil Comments: [facility] [address] [place], [place], [address] GAP 8 (Normal) Range: 5-15 CO2 30.0 mmol/L (Normal) Range: 21.0-32.0 CL 102 mmol/L (Normal) Range: 98-107 K 3.7 mmol/L (Normal) Range: 3.5-5.1 NA 140 mmol/L (Normal) Range: 136-145 T BILI 1.50 mg/dL (Abnormal) Range: 0.20-1.00 ALT 23 U/L (Normal) Range: 16-61 ALK P 97 U/L (Normal) Range: 45-117 AST 21 U/L (Normal) Range: 15-37 CA 8.5 mg/dL (Normal) Range: 8.5-10.1 A/G 0.9 {RATIO} (Normal) Range: 0.9-2.4 GLOB 3.8 g/dL (Normal) Range: 2.2-4.2 ALB 3.5 g/dL (Normal) Range: 3.2-5.0 T PROT 7.3 g/dL (Normal) Range: 6.4-8.2 BUN/CRE 15.3 {RATIO} (Normal) Range: 10-20 EST GFR - AA 51 mL/min (Abnormal) Comments: GFR Calc EST GFR 42 mL/min (Abnormal) Comments: Non- GFR Calc CREAT,SERUM 1.70 mg/dL (Abnormal) Range: 0.70-1.30 Comments: The validity of the calculated GFR AND GFRAA in patients over70 years has not been determined. Clinical correlation isessential. BUN 26 mg/dL (Abnormal) Range: 7-18 GLU 145 mg/dL (Abnormal) Range: 74-106 Comments: Fasting Glucose result greater than or equal to 126 mg/dLsuggests DIABETES MELLITUS per A.D.A. criteria.Please note revised GLUCOSE reference range /02/2018. 43-Scy-028632:39 Uric Acid Comments: [facility] [address] [place], [place], [id number] URIC 9.1 mg/dL (Abnormal) Range: 3.5-7.2 Comments: The drugs N-Acetylcysteine and Metamizole may falselydepress this assay. 9-Ahm-485915:57 HgA1C , Office (60942) HgA1C , Office 6.9 % (Normal) Range: 4.6 - 7.1 3-Cto-057977:57 Blood Glucose , Office (80404) Blood Glucose , Office 173 (Normal) 41-Jmz-611849:26 CBC W/Diff, Automated Comments: [facility] [address] [place], [place], [address] Absolute Lymph 1.30 {X10_3/ul} (Normal) Range: 0.83-4.51 Absolute Neut 6.5 {X10_3/uL} (Normal) Range: 2.0-7.7 IM GRAN % 0.300 % (Normal) Range: 0.0-0.9 Comments: IG% - Immature Granulocytes (promyelocytes, myelocytes andmetamyelocytes) > 1% indicates that a LEFT SHIFT is Present. BASO% 0.3 % (Normal) Range: 0-1 EO% 2.1 % (Normal) Range: 0-5 MONO% 10.2 % (Abnormal) Range: 0-10 LY% 14.4 % (Abnormal) Range: 19-41 NEUT% 72.7 % (Abnormal) Range: 47-70 MPV 11.0 fL (Normal) Range: 6.2-12.0 PLT 221 K/mm3 (Normal) Range: 150-450 RDW SD 48.2 fL (Abnormal) Range: 35.1-43.9 RDW CV 14.7 % (Abnormal) Range: 11.6-14.6 MCHC 31.9 {g/gl} (Abnormal) Range: 32-36 MCH 29.3 pg (Normal) Range: 27.0-32.0 MCV 91.8 fL (Normal) Range: 80-94 HCT 42.6 % (Normal) Range: 40-54 HGB 13.6 g/dL (Normal) Range: 13.0-16.5 RBC 4.64 {M/mm3} (Normal) Range: 4.6-6.2 WBC 9.0 K/mm3 (Normal) Range: 4.4-11.0 06-Ndw-580741:26 CCP IgG Antibodies Comments: [facility] (refer to report for specific site)refer to report for address and phone number ANTI-CCP 713410 8 {units} (Normal) Range: 0-19 Comments: Negative <20 Weak positive 20 - 39 Moderate positive 40 - 59 Strong positive >59 62-You-425969:26 Comprehensive Metabolic Profil Comments: [facility] [address] [place], [address] GAP 9 (Normal) Range: 5-15 CO2 28.0 mmol/L (Normal) Range: 21.0-32.0 CL 106 mmol/L (Normal) Range: 98-107 K 3.6 mmol/L (Normal) Range: 3.5-5.1 NA 143 mmol/L (Normal) Range: 136-145 T BILI 1.60 mg/dL (Abnormal) Range: 0.20-1.00 ALT 20 U/L (Normal) Range: 16-61 ALK P 90 U/L (Normal) Range: 45-117 AST 19 U/L (Normal) Range: 15-37 CA 8.8 mg/dL (Normal) Range: 8.5-10.1 A/G 0.9 {RATIO} (Normal) Range: 0.9-2.4 GLOB 3.9 g/dL (Normal) Range: 2.2-4.2 ALB 3.6 g/dL (Normal) Range: 3.2-5.0 T PROT 7.5 g/dL (Normal) Range: 6.4-8.2 BUN/CRE 15.6 {RATIO} (Normal) Range: 10-20 EST GFR - AA 60 mL/min (Normal) Comments: GFR Calc EST GFR 50 mL/min (Abnormal) Comments: Non- GFR Calc CREAT,SERUM 1.47 mg/dL (Abnormal) Range: 0.70-1.30 Comments: The validity of the calculated GFR AND GFRAA in patients over70 years has not been determined. Clinical correlation isessential. BUN 23 mg/dL (Abnormal) Range: 7-18 GLU 104 mg/dL (Normal) Range: 74-106 Comments: Fasting Glucose result from 100 to 125 mg/dLsuggests IMPAIRED HOMEOSTASIS per A.D.A. criteria.Please note revised GLUCOSE reference range zjmcooixs44/02/2018. 15-Pww-830718:26 CRP Comments: [facility] [address] [place], [address] C-REACTIVE PROT 8.60 mg/L (Abnormal) Range: 0.0-3.0 Comments: C-Reactive Protein (CRP) provides useful information for thediagnosis, therapy and monitoring of inflammatory processesand associated diseases. For the evaluation of Relative Riskfor Cardiovascular Dise ase, a High Sensitivity CRP (HSCRP)should be ordered. 29-Ond-886277:26 Erythrocyte Sed Rate Comments: [facility] [address] [place], [place], [address] SED RATE 18 mm/h (Normal) Range: 0-20 33-Iqs-665556:26 Hep B Surface Antibodies Comments: [facility] (refer to report for specific site)refer to report for address and phone number Hep B Patricia AB Non Reactive (Normal) Comments: Non Reactive: Inconsistent with immunity, less than 10 mIU/mL Reactive: Consistent with immunity, greater than 9.9 mIU/ mL 05-Czl-110322:26 Hepatitis B Surface Ag Comments: [facility] (refer to report for specific site)refer to report for address and phone number HB SURF AG Negative (Normal) Comments: Performed at: - [facility] [id number] Director: Christopher Molina PhD, Phone: [phone] at: [id number] Director: Dillon Falk MD, Phone: [phone] 06-Poo-603347:26 Hepatitis C Antibodies Comments: [facility] (refer to report for specific site)refer to report for address and phone number HEP C AB <0.1 {s/co_ratio} (Normal) Range: 0.0-0.9 Comments: Negative: < 0.8 Indeterminate: 0.8 - 0.9 Positive: > 0.9 The CDC recommends that a positive HCV antibody result be followed up with a HCV Nucleic Acid Amplification test (871505). 93-Zzv-052423:26 Rheumatoid Factor Comments: [facility] [address] [place], [place], [id number] RHEUMATOID FAC < 10.0 {IU/mL} (Normal) 83-Tca-006716:26 Uric Acid Comments: [facility] [address] [facility] [place], [place], [address] URIC 10.7 mg/dL (Abnormal) Range: 3.5-7.2 Comments: The drugs N-Acetylcysteine and Metamizole may falselydepress this assay. 59-Plv-467268:20 CCP ANTIBODY (69661) Comments: PATIENT NOT FASTINGPERFORMED BY: [employer] [id number] BY: [address] [id number] CCP Antibodies IgG/IgA 8 {units} (Normal) Range: 0-19 Comments: Negative <20 Weak positive 20 - 39 Moderate positive 40 - 59 Strong positive >59 11-Kch-740117:20 SED RATE ERYTHROCYTE Comments: PATIENT NOT FASTINGPERFORMED BY: [address] [id number] BY: [address] [id number] ([address]) Sedimentation Rate-Westergren 32 mm/h (Abnormal) Range: 0-30 83-Pla-188584:20 C-REACTIVE PROTEIN Comments: PATIENT NOT FASTINGPERFORMED BY: LabCoBristol-My[facility] Squibb Children's HospitalEnnsdh8341 [facility] Hospital[facility] [place] [id number] BY: [address] [id number] ([address]) C-Reactive Protein, Quant 24.6 mg/L (Abnormal) Range: 0.0-4.9 32-Grt-635242:20 RHEUMATOID FACTOR-QUANT Comments: PATIENT NOT FASTINGPERFORMED BY: CodeshipBristol-Myers Squibb Children's HospitalAeesje5186 [facility] [id number] BY: [address] [id number] (08[address]) RA Latex Turbid. <10.0 {IU/mL} (Normal) Range: 0.0-13.9 44-Azn-210912:20 THAIS (ANTINUCLEAR ANTIBODY) Comments: PATIENT NOT FASTINGPERFORMED BY: [employer] Rnxjww9944 [facility] [id number] BY: [address] [id number] (91733) THAIS Direct Negative (Normal) 7-Zng-789628:59 MAGNESIUM (28537) Comments: PATIENT WAS FASTINGPERFORMED BY: [facility] Cgtgca4567 [facility] [place] [id number] Magnesium, Serum 2.1 mg/dL (Normal) Range: 1.6-2.3 3-Nio-280938:59 PHOSPHORUS (19761) Comments: PATIENT WAS FASTINGPERFORMED BY: [facility] Lfjwyt9140 [facility] Hospital[facility] [place] [id number] Phosphorus, Serum 3.1 mg/dL (Normal) Range: 2.5-4.5 3-Pjs-545487:59 PARATHORMONE (68277) Comments: PATIENT WAS FASTINGPERFORMED BY: [facility] Dmomjf5760 [facility] Hospital[facility] [place] [id number] PTH, Intact 67 pg/mL (Abnormal) Range: 15-65 3-Mmh-582353:59 CALCIFEDIOL (77751) Comments: PATIENT WAS FASTINGPERFORMED BY: LabCoBristol-Myers Squibb Children's HospitalKvquov4372 [facility] [id number] Vitamin D, 25-Hydroxy 21.5 ng/mL (Abnormal) Range: 30.0-100.0 Comments: Vitamin D deficiency has been defined by the [place] ofTri[facility] Hospitalcine and an Endocrine Society practice guideline as alevel of serum 25-OH vitamin D less than 20 ng/mL (1,2).The Endocrine Society went on to further define vitamin Dinsufficiency as a level between 21 and 29 ng/mL (2).1. IOM ([place] of Medicine). 2010. Dietary reference intakes for calcium and D. [place]: The National Academies Press.2. Marcelle MF, Justin PURCELL, Amira ELIAS, et al. Evaluation, treatment, and prevention of vitamin D deficiency: an Endocrine Society clinical practice guideline. JCEM. 2010; 96(7):1911-30. 8-Wxp-593809:59 TSH (22932) Comments: PATIENT WAS FASTINGPERFORMED BY: [facility] Irglpp4411 [facility] [id number] TSH 3.200 {uIU/mL} (Normal) Range: 0.450-4.500 0-Huj-078205:59 METABOLIC PANEL, COMPREHENSIVE Comments: PATIENT WAS FASTINGPERFORMED BY: LabCoBristol-Myers Squibb Children's HospitalYorjmf9990 [facility] [id number] (95388) ALT (SGPT) 13 [iU]/L (Normal) Range: 0-44 AST (SGOT) 13 [iU]/L (Normal) Range: 0-40 Alkaline Phosphatase, S 87 [iU]/L (Normal) Range: 39-117 Bilirubin, Total 1.5 mg/dL (Abnormal) Range: 0.0-1.2 A/G Ratio 1.5 (Normal) Range: 1.2-2.2 Globulin, Total 2.7 g/dL (Normal) Range: 1.5-4.5 Albumin, Serum 4.1 g/dL (Normal) Range: 3.5-4.8 Protein, Total, Serum 6.8 g/dL (Normal) Range: 6.0-8.5 Calcium, Serum 9.2 mg/dL (Normal) Range: 8.6-10.2 Carbon Dioxide, Total 23 mmol/L (Normal) Range: 18-29 Chloride, Serum 101 mmol/L (Normal) Range: 96-106 Potassium, Serum 3.7 mmol/L (Normal) Range: 3.5-5.2 Sodium, Serum 144 mmol/L (Normal) Range: 134-144 BUN/Creatinine Ratio 15 (Normal) Range: 10-24 eGFR If Africn Am 58 mL/min/1.73 (Abnormal) eGFR If NonAfricn Am 51 mL/min/1.73 (Abnormal) Creatinine, Serum 1.36 mg/dL (Abnormal) Range: 0.76-1.27 BUN 21 mg/dL (Normal) Range: 8-27 Glucose, Serum 166 mg/dL (Abnormal) Range: 65-99 4-Wqe-349119:59 LIPID PANEL (28088) Comments: PATIENT WAS FASTINGPERFORMED BY: [employer] [place] [id number] LDL/HDL Ratio 2.4 {ratio_units} (Normal) Range: 0.0-3.6 Comments: LDL/HDL Ratio Men Women 1/2 Avg.Risk 1.0 1.5 Av g.Risk 3.6 3.2 2X Avg.Risk 6.2 5.0 3X Avg.Risk 8.0 6.1 LDL Cholesterol Calc 101 mg/dL (Abnormal) Range: 0-99 VLDL Cholesterol Bharat 28 mg/dL (Normal) Range: 5-40 HDL Cholesterol 42 mg/dL (Normal) Triglycerides 139 mg/dL (Normal) Range: 0-149 Cholesterol, Total 171 mg/dL (Normal) Range: 100-199 0-Djx-311502:59 CBC W/AUTO DIFF WBC (26100) Comments: PATIENT WAS FASTINGPERFORMED BY: [employer]70 [facility] [id number] Immature Grans (Abs) 0.0 {x10E3/uL} (Normal) Range: 0.0-0.1 Immature Granulocytes 0 % (Normal) Baso (Absolute) 0.0 {x10E3/uL} (Normal) Range: 0.0-0.2 Eos (Absolute) 0.2 {x10E3/uL} (Normal) Range: 0.0-0.4 Monocytes(Absolute) 1.1 {x10E3/uL} (Abnormal) Range: 0.1-0.9 Lymphs (Absolute) 1.5 {x10E3/uL} (Normal) Range: 0.7-3.1 Neutrophils (Absolute) 6.7 {x10E3/uL} (Normal) Range: 1.4-7.0 Basos 0 % (Normal) Eos 3 % (Normal) Monocytes 11 % (Normal) Lymphs 15 % (Normal) Neutrophils 71 % (Normal) Platelets 281 {x10E3/uL} (Normal) Range: 150-379 RDW 14.7 % (Normal) Range: 12.3-15.4 MCHC 32.7 g/dL (Normal) Range: 31.5-35.7 MCH 29.3 pg (Normal) Range: 26.6-33.0 MCV 90 fL (Normal) Range: 79-97 Hematocrit 44.0 % (Normal) Range: 37.5-51.0 Hemoglobin 14.4 g/dL (Normal) Range: 13.0-17.7 RBC 4.91 {x10E6/uL} (Normal) Range: 4.14-5.80 WBC 9.6 {x10E3/uL} (Normal) Range: 3.4-10.8 :51 HgA1C , Office (68029) HgA1C , Office 7.0 % (Normal) Range: 4.6 - 7.1 :51 Blood Glucose , Office (31635) Blood Glucose , Office 197 (Normal) 3-Ckp-808696:35 Basic Metabolic Profile (BMP) Comments: 'TROP' Serial specimen #1, #2, #3, or #4: [facility] [address] [place], [place], [address] GAP 11 (Normal) Range: 5-15 CO2 25.0 mmol/L (Normal) Range: 21.0-32.0 CL 103 mmol/L (Normal) Range: 98-107 K 3.3 mmol/L (Abnormal) Range: 3.5-5.1 NA 139 mmol/L (Normal) Range: 136-145 CA 9.2 mg/dL (Normal) Range: 8.5-10.1 BUN/CRE 17.4 {RATIO} (Normal) Range: 10-20 Estimated CRCL 37.80 ml/min (Normal) EST GFR - AA 65 mL/min (Normal) Comments: GFR Calc EST GFR 53 mL/min (Abnormal) Comments: Non- GFR Calc CREAT,SERUM 1.38 mg/dL (Abnormal) Range: 0.70-1.30 Comments: The validity of the calculated GFR AND GFRAA in patients over70 years has not been determined. Clinical correlation isessential. BUN 24 mg/dL (Abnormal) Range: 7-18 GLU 144 mg/dL (Abnormal) Range: 70-110 Comments: Fasting Glucose result greater than or equal to 126 mg/dLsuggests DIABETES MELLITUS per A.D.A. criteria. 6-Svd-121124:35 BNP,B-Type NATRIURETIC PEPTIDE Comments: [facility] [address] [place], [place], [address] B-TYPE KAE PEP 1319.4 pg/mL (Abnormal) Range: 0-100 :35 CBC W/Diff, Automated Comments: [facility] [address] [place], [place], [address] Absolute Lymph 0.87 {X10_3/ul} (Normal) Range: 0.83-4.51 Absolute Neut 10.2 {X10_3/uL} (Abnormal) Range: 2.0-7.7 IM GRAN % 0.200 % (Normal) Range: 0.0-0.9 Comments: IG% - Immature Granulocytes (promyelocytes, myelocytes andmetamyelocytes) > 1% indicates that a LEFT SHIFT is Present. BASO% 0.2 % (Normal) Range: 0-1 EO% 0.0 % (Normal) Range: 0-5 MONO% 11.8 % (Abnormal) Range: 0-10 LY% 6.9 % (Abnormal) Range: 19-41 NEUT% 80.9 % (Abnormal) Range: 47-70 MPV 10.4 fL (Normal) Range: 6.2-12.0 PLT 222 K/mm3 (Normal) Range: 150-450 RDW SD 45.0 fL (Abnormal) Range: 35.1-43.9 RDW CV 13.9 % (Normal) Range: 11.6-14.6 MCHC 32.3 {g/gl} (Normal) Range: 32-36 MCH 29.3 pg (Normal) Range: 27.0-32.0 MCV 90.6 fL (Normal) Range: 80-94 HCT 33.7 % (Abnormal) Range: 40-54 HGB 10.9 g/dL (Abnormal) Range: 13.0-16.5 RBC 3.72 {M/mm3} (Abnormal) Range: 4.6-6.2 WBC 12.7 K/mm3 (Abnormal) Range: 4.4-11.0 2-Kpe-871266:35 Troponin-I Comments: 'TROP' Serial specimen #1, #2, #3, or #4: [address] [place] [address] [address] [place], [place], [address] TROPONIN-I 0.03 ng/mL (Normal) Comments: TROPONIN-I EXPECTED VALUES <0.05 NEGATIVE 0.06 - 0.59 AT RISK OF [place] > OR = 0.60 SUGGEST [place] 4-Exm-549739:35 Microscopic Examination Comments: PATIENT WAS FASTINGPERFORMED BY: [email or web address].[facility] [id number] Bacteria Few (Normal) Mucus Threads Present (Normal) Cast Type Hyaline casts (Normal) Casts Present {/lpf} (Abnormal) Epithelial Cells (non renal) None seen {/hpf} (Normal) Range: 0 - 10 RBC 0-2 {/hpf} (Normal) Range: 0 - 2 WBC 0-5 {/hpf} (Normal) Range: 0 - 5 6-Yui-840200:00 PSA (PROSTATE SPECIFIC Comments: send copy to dr bianchi; PATIENT NOT FASTINGPERFORMED BY: [employer] [place] [facility] [id number] ANTIGEN) (V76.44) Prostate Specific Ag, 2.1 ng/mL (Normal) Range: 0.0-4.0 Serum Comments: Temo ECLIA methodology. .According to the [place] [employer], Serum PSA shoulddecrease and remain at undetectable levels after radicalprostatectomy. The AUA defines biochemical recurrence as an initialPSA value 0.2 ng/mL or greater followed by a subsequent confirmatoryPSA value 0.2 ng/mL or greater.Values obtained with d ifferent assay methods or kits cannot be usedinterchangeably. Results cannot be interpreted as absolute evidenceof the presence or absence of malignant disease. :35 TSH (84247) Comments: PATIENT WAS FASTINGPERFORMED BY: [facility] [id number] TSH 4.070 {uIU/mL} (Normal) Range: 0.450-4.500 :35 URINALYSIS, W/ MICRO (64918) Comments: PATIENT WAS FASTINGPERFORMED BY: [facility] [id number]; can review at next appt Microscopic Examination See below: (Normal) Comments: Microscopic was indicated and was performed. Nitrite, Urine Negative (Normal) Urobilinogen,Semi-Qn 1.0 mg/dL (Normal) Range: 0.2-1.0 Bilirubin Negative (Normal) Occult Blood Negative (Normal) Ketones Negative (Normal) Glucose Negative (Normal) Protein 1+ (Abnormal) WBC Esterase Negative (Normal) Appearance Clear (Normal) Urine-Color Yellow (Normal) pH 7.0 (Normal) Range: 5.0-7.5 Specific Twilight 1.013 (Normal) Range: 1.005-1.030 :35 MICROALBUMIN: CREATININE RATIO Comments: PATIENT WAS FASTINGPERFORMED BY: [facility] [id number] (35606) AND (84301) Microalb/Creat Ratio 136.1 {mg/g_creat} (Abnormal) Range: 0.0-30.0 Microalbumin, Urine 118.3 ug/mL (Normal) Creatinine, Urine 86.9 mg/dL (Normal) :35 METABOLIC PANEL, COMPREHENSIVE Comments: PATIENT WAS FASTINGPERFORMED BY: [facility] [id number] (16850) ALT (SGPT) 10 [iU]/L (Normal) Range: 0-44 AST (SGOT) 15 [iU]/L (Normal) Range: 0-40 Alkaline Phosphatase, S 80 [iU]/L (Normal) Range: 39-117 Bilirubin, Total 1.4 mg/dL (Abnormal) Range: 0.0-1.2 A/G Ratio 1.3 (Normal) Range: 1.2-2.2 Globulin, Total 2.9 g/dL (Normal) Range: 1.5-4.5 Albumin, Serum 3.7 g/dL (Normal) Range: 3.5-4.8 Protein, Total, Serum 6.6 g/dL (Normal) Range: 6.0-8.5 Calcium, Serum 8.9 mg/dL (Normal) Range: 8.6-10.2 Carbon Dioxide, Total 26 mmol/L (Normal) Range: 18-29 Chloride, Serum 100 mmol/L (Normal) Range: 96-106 Potassium, Serum 4.0 mmol/L (Normal) Range: 3.5-5.2 Sodium, Serum 144 mmol/L (Normal) Range: 134-144 BUN/Creatinine Ratio 15 (Normal) Range: 10-24 eGFR If Africn Am 58 mL/min/1.73 (Abnormal) eGFR If NonAfricn Am 50 mL/min/1.73 (Abnormal) Creatinine, Serum 1.37 mg/dL (Abnormal) Range: 0.76-1.27 BUN 21 mg/dL (Normal) Range: 8-27 Glucose, Serum 126 mg/dL (Abnormal) Range: 65-99 0-Lan-874036:35 LIPID PANEL (65096) Comments: PATIENT WAS FASTINGPERFORMED BY: [facility]Asc[facility]6370 [facility] [id number] LDL/HDL Ratio 2.4 {ratio_units} (Normal) Range: 0.0-3.6 Comments: LDL/HDL Ratio Men Women 1/2 Avg.Risk 1.0 1.5 Av g.Risk 3.6 3.2 2X Avg.Risk 6.2 5.0 3X Avg.Risk 8.0 6.1 LDL Cholesterol Calc 99 mg/dL (Normal) Range: 0-99 VLDL Cholesterol Bharat 25 mg/dL (Normal) Range: 5-40 HDL Cholesterol 41 mg/dL (Normal) Triglycerides 123 mg/dL (Normal) Range: 0-149 Cholesterol, Total 165 mg/dL (Normal) Range: 100-199 1-Dwi-436577:35 CBC W/AUTO DIFF WBC (24530) Comments: PATIENT WAS FASTINGPERFORMED BY: [employer] [facility] [id number] Immature Grans (Abs) 0.0 {x10E3/uL} (Normal) Range: 0.0-0.1 Immature Granulocytes 0 % (Normal) Baso (Absolute) 0.0 {x10E3/uL} (Normal) Range: 0.0-0.2 Eos (Absolute) 0.2 {x10E3/uL} (Normal) Range: 0.0-0.4 Monocytes(Absolute) 0.8 {x10E3/uL} (Normal) Range: 0.1-0.9 Lymphs (Absolute) 1.0 {x10E3/uL} (Normal) Range: 0.7-3.1 Neutrophils (Absolute) 4.7 {x10E3/uL} (Normal) Range: 1.4-7.0 Basos 1 % (Normal) Eos 4 % (Normal) Monocytes 12 % (Normal) Lymphs 14 % (Normal) Neutrophils 69 % (Normal) Platelets 181 {x10E3/uL} (Normal) Range: 150-379 RDW 14.4 % (Normal) Range: 12.3-15.4 MCHC 31.9 g/dL (Normal) Range: 31.5-35.7 MCH 29.0 pg (Normal) Range: 26.6-33.0 MCV 91 fL (Normal) Range: 79-97 Hematocrit 37.3 % (Abnormal) Range: 37.5-51.0 Hemoglobin 11.9 g/dL (Abnormal) Range: 12.6-17.7 RBC 4.11 {x10E6/uL} (Abnormal) Range: 4.14-5.80 WBC 6.7 {x10E3/uL} (Normal) Range: 3.4-10.8 4-Eox-261810:35 CALCIFIDIOL (18686) VIT D 25 Comments: PATIENT WAS FASTINGPERFORMED BY: [employer] Wsiamk1900 [facility] [id number] Vitamin D, 25-Hydroxy 37.2 ng/mL (Normal) Range: 30.0-100.0 Comments: Vitamin D deficiency has been defined by the [place] ofMedicine and an Endocrine Society practice guideline as alevel of serum 25-OH vitamin D less than 20 ng/mL (1,2).The Endocrine Society went on to further define vitamin Dinsufficiency as a level between 21 and 29 ng/mL (2).1. IOM ([place] of Medicine). 2010. Dietary reference intakes for calcium and D. [place]: The National Academies Press.2. Marcelle MF, Justin PURCELL, Amira ELIAS, et al. Evaluation, treatment, and prevention of vitamin D deficiency: an Endocrine Society clinical practice guideline. JCEM. 2010; 96(7):1911-30. 5-Dzu-236556:21 HgA1C , Office (83819) HgA1C , Office 6.2 % (Normal) Range: 4.6 - 7.1 :21 Blood Glucose , Office (90782) Blood Glucose , Office 162 (Normal) 5-Sva-289226:56 Microscopic Examination Comments: PATIENT WAS FASTINGPERFORMED BY: [employer] LabCoNir[facility]ix Ycrpmh8225 [facility] [place] [id number] Bacteria None seen (Normal) Mucus Threads Present (Normal) Cast Type Hyaline casts (Normal) Casts Present {/lpf} (Abnormal) Epithelial Cells (non renal) 0-10 {/hpf} (Normal) Range: 0 - 10 RBC 0-2 {/hpf} (Normal) Range: 0 - 2 WBC None seen {/hpf} (Normal) Range: 0 - 5 :56 CALCIFIDIOL ([id number]) VIT D 25 Comments: PATIENT WAS FASTINGPERFORMED BY: [facility] [employer] [facility] [id number] [facility] [place] [id number] Vitamin D, 25-Hydroxy 34.6 ng/mL (Normal) Range: 30.0-100.0 Comments: Vitamin D deficiency has been defined by the [place] of[place] and an Endocrine Society practice guideline as alevel of serum 25-OH vitamin D less than 20 ng/mL (1,2).The Endocrine Society went on to further define vitamin Dinsufficiency as a level between 21 and 29 ng/mL (2).1. IOM ([place] [employer]). 2010. Dietary reference intakes for calcium and D. [place]: The National Academies Press.2. Marcelle MF, Justin NC, Amira ELIAS, et al. Evaluation, treatment, and prevention of vitamin D deficiency: an Endocrine Society clinical practice guideline. JCEM. 2010; 96(7):1911-30. 5-Cbc-328000:56 TSH ([id number]) Comments: PATIENT WAS FASTINGPERFORMED BY: [employer] [facility] [id number] TSH 5.530 {uIU/mL} (Abnormal) Range: 0.450-4.500 :56 URINALYSIS, W/ MICRO ([id number]) Comments: PATIENT WAS FASTINGPERFORMED BY: [employer] [facility] [id number] Microscopic Examination See below: (Normal) Comments: Microscopic was indicated and was performed. Microscopic Examination MICRON (Normal) Comments: Microscopic follows if indicated. Nitrite, Urine Negative (Normal) Urobilinogen,Semi-Qn 1.0 mg/dL (Normal) Range: 0.2-1.0 Bilirubin Negative (Normal) Occult Blood Negative (Normal) Ketones Negative (Normal) Glucose Negative (Normal) Protein Negative (Normal) WBC Esterase Negative (Normal) Appearance Clear (Normal) Urine-Color Yellow (Normal) pH 7.0 (Normal) Range: 5.0-7.5 Specific Twilight 1.009 (Normal) Range: 1.005-1.030 :56 MICROALBUMIN: CREATININE RATIO Comments: PATIENT WAS FASTINGPERFORMED BY: [employer] [id number] [facility] [id number] ([id number]) AND ([id number]) Microalb/Creat Ratio <12.1 {mg/g_creat} (Normal) Range: 0.0-30.0 Microalbumin, Urine <3.0 ug/mL (Normal) Creatinine, Urine 24.7 mg/dL (Normal) :56 METABOLIC PANEL, COMPREHENSIVE Comments: PATIENT WAS FASTINGPERFORMED BY: [employer] Xaquwu1989 [facility] [id number] ([id number]) ALT (SGPT) 8 [iU]/L (Normal) Range: 0-44 AST (SGOT) 15 [iU]/L (Normal) Range: 0-40 Alkaline Phosphatase, S 85 [iU]/L (Normal) Range: 39-117 Bilirubin, Total 1.1 mg/dL (Normal) Range: 0.0-1.2 A/G Ratio 1.4 (Normal) Range: 1.1-2.5 Comments: Effective June 15, 2016 the reference interval for A/G Ratio will be changing to: Age Male Female 0 - 7 d ays 1.1 - 2.3 1.1 - 2.3 8 - 30 days 1.2 - 2.8 1.2 - 2.8 1 - 6 months 1.3 - 3.6 1.3 - 3.6 7 months - 5 years 1.5 - 2.6 1.5 - 2.6 > 5 years 1.2 - 2.2 1.2 - 2.2 Globulin, Total 2.9 g/dL (Normal) Range: 1.5-4.5 Albumin, Serum 4.1 g/dL (Normal) Range: 3.5-4.8 Protein, Total, Serum 7.0 g/dL (Normal) Range: 6.0-8.5 Calcium, Serum 9.1 mg/dL (Normal) Range: 8.6-10.2 Carbon Dioxide, Total 26 mmol/L (Normal) Range: 18-29 Chloride, Serum 98 mmol/L (Normal) Range: 96-106 Potassium, Serum 3.6 mmol/L (Normal) Range: 3.5-5.2 Sodium, Serum 146 mmol/L (Abnormal) Range: 134-144 BUN/Creatinine Ratio 15 (Normal) Range: 10-22 eGFR If Africn Am 51 mL/min/1.73 (Abnormal) eGFR If NonAfricn Am 44 mL/min/1.73 (Abnormal) Creatinine, Serum 1.53 mg/dL (Abnormal) Range: 0.76-1.27 BUN 23 mg/dL (Normal) Range: 8-27 Glucose, Serum 109 mg/dL (Abnormal) Range: 65-99 2-Tve-956341:56 CBC W/AUTO DIFF WBC (11026) Comments: PATIENT WAS FASTINGPERFORMED BY: [facility]CoB[facility] Children's HospitalXldivr0793 [facility] [id number] Immature Grans (Abs) 0.0 {x10E3/uL} (Normal) Range: 0.0-0.1 Immature Granulocytes 0 % (Normal) Baso (Absolute) 0.0 {x10E3/uL} (Normal) Range: 0.0-0.2 Eos (Absolute) 0.2 {x10E3/uL} (Normal) Range: 0.0-0.4 Monocytes(Absolute) 0.8 {x10E3/uL} (Normal) Range: 0.1-0.9 Lymphs (Absolute) 1.1 {x10E3/uL} (Normal) Range: 0.7-3.1 Neutrophils (Absolute) 4.7 {x10E3/uL} (Normal) Range: 1.4-7.0 Basos 0 % (Normal) Eos 3 % (Normal) Monocytes 12 % (Normal) Lymphs 16 % (Normal) Neutrophils 69 % (Normal) Platelets 230 {x10E3/uL} (Normal) Range: 150-379 RDW 14.4 % (Normal) Range: 12.3-15.4 MCHC 32.6 g/dL (Normal) Range: 31.5-35.7 MCH 29.2 pg (Normal) Range: 26.6-33.0 MCV 90 fL (Normal) Range: 79-97 Hematocrit 39.3 % (Normal) Range: 37.5-51.0 Hemoglobin 12.8 g/dL (Normal) Range: 12.6-17.7 RBC 4.39 {x10E6/uL} (Normal) Range: 4.14-5.80 WBC 6.9 {x10E3/uL} (Normal) Range: 3.4-10.8 6-Cvq-489612:56 LIPID PANEL (99901) Comments: PATIENT WAS FASTINGPERFORMED BY: [facility] Oacvyp7108 [facility] [id number] LDL/HDL Ratio 2.3 {ratio_units} (Normal) Range: 0.0-3.6 Comments: LDL/HDL Ratio Men Women 1/2 Avg.Risk 1.0 1.5 Av g.Risk 3.6 3.2 2X Avg.Risk 6.2 5.0 3X Avg.Risk 8.0 6.1 LDL Cholesterol Calc 106 mg/dL (Abnormal) Range: 0-99 VLDL Cholesterol Bharat 25 mg/dL (Normal) Range: 5-40 HDL Cholesterol 46 mg/dL (Normal) Triglycerides 127 mg/dL (Normal) Range: 0-149 Cholesterol, Total 177 mg/dL (Normal) Range: 100-199 :36 HgA1C , Office (51681) HgA1C , Office 6.4 % (Normal) Range: 4.6 - 7.1 :36 Blood Glucose , Office (35229) Blood Glucose , Office 129 (Normal) :20 Blood Glucose , Office (50342) Blood Glucose , Office 111 (Normal) 56-Aaj-304469:20 HgA1C , Office (57075) HgA1C , Office 6.4 % (Normal) Range: 4.6 - 7.1 :25 CBC W/AUTO DIFF WBC (11683) Comments: PATIENT NOT FASTINGPERFORMED BY: [facility]CoB[facility] Children's HospitalLwovld0167 [facility] [id number] Immature Grans (Abs) 0.0 {x10E3/uL} (Normal) Range: 0.0-0.1 Immature Granulocytes 0 % (Normal) Baso (Absolute) 0.0 {x10E3/uL} (Normal) Range: 0.0-0.2 Eos (Absolute) 0.2 {x10E3/uL} (Normal) Range: 0.0-0.4 Monocytes(Absolute) 0.7 {x10E3/uL} (Normal) Range: 0.1-0.9 Lymphs (Absolute) 0.8 {x10E3/uL} (Normal) Range: 0.7-3.1 Neutrophils (Absolute) 4.3 {x10E3/uL} (Normal) Range: 1.4-7.0 Basos 0 % (Normal) Eos 3 % (Normal) Monocytes 11 % (Normal) Lymphs 13 % (Normal) Neutrophils 73 % (Normal) Platelets 293 {x10E3/uL} (Normal) Range: 150-379 RDW 14.9 % (Normal) Range: 12.3-15.4 MCHC 30.3 g/dL (Abnormal) Range: 31.5-35.7 MCH 27.5 pg (Normal) Range: 26.6-33.0 MCV 91 fL (Normal) Range: 79-97 Hematocrit 42.2 % (Normal) Range: 37.5-51.0 Hemoglobin 12.8 g/dL (Normal) Range: 12.6-17.7 RBC 4.65 {x10E6/uL} (Normal) Range: 4.14-5.80 WBC 6.0 {x10E3/uL} (Normal) Range: 3.4-10.8 64-Gvs-087172:25 METABOLIC PANEL, COMPREHENSIVE Comments: PATIENT NOT FASTINGPERFORMED BY: [facility]CoB[facility] Children's HospitalUxbrfl0126 [facility] [id number] (70297) ALT (SGPT) 13 [iU]/L (Normal) Range: 0-44 AST (SGOT) 16 [iU]/L (Normal) Range: 0-40 Alkaline Phosphatase, S 82 [iU]/L (Normal) Range: 39-117 Bilirubin, Total 0.9 mg/dL (Normal) Range: 0.0-1.2 A/G Ratio 1.3 (Normal) Range: 1.1-2.5 Globulin, Total 2.7 g/dL (Normal) Range: 1.5-4.5 Albumin, Serum 3.6 g/dL (Normal) Range: 3.5-4.8 Protein, Total, Serum 6.3 g/dL (Normal) Range: 6.0-8.5 Calcium, Serum 9.2 mg/dL (Normal) Range: 8.6-10.2 Carbon Dioxide, Total 28 mmol/L (Normal) Range: 18-29 Chloride, Serum 98 mmol/L (Normal) Range: 97-108 Comments: Effective January 20, 2016 the reference interval for Chloride, Serum will be changing to: 97 - 106 Potassium, Serum 4.8 mmol/L (Normal) Range: 3.5-5.2 Comments: Effective January 20, 2016 the reference interval for Potassium, Serum will be changing to: 0 - 7 days 3.7 - 5.2 8 - 30 days 3.7 - 6.4 1 - 6 months 3.8 - 6.0 7 months - 1 year 3.8 - 5.3 >1 year 3.5 - 5.2 Sodium, Serum 146 mmol/L (Abnormal) Range: 134-144 Comments: Effective January 20, 2016 the reference interval for Sodium, Serum will be changing to: 136 - 144 BUN/Creatinine Ratio 14 (Normal) Range: 10-22 eGFR If Africn Am 45 mL/min/1.73 (Abnormal) eGFR If NonAfricn Am 39 mL/min/1.73 (Abnormal) Creatinine, Serum 1.70 mg/dL (Abnormal) Range: 0.76-1.27 BUN 23 mg/dL (Normal) Range: 8-27 Glucose, Serum 158 mg/dL (Abnormal) Range: 65-99 6-Bng-789612:03 Basic Metabolic Profile (BMP) Comments: 'TROP' Serial specimen #1, #2, #3, or #4: [facility] [address] [place], [address] GAP 6 (Normal) Range: 5-15 CO2 35.0 mmol/L (Abnormal) Range: 21.0-32.0 CL 104 mmol/L (Normal) Range: 98-107 K 3.6 mmol/L (Normal) Range: 3.5-5.1 NA 145 mmol/L (Normal) Range: 136-145 CA 8.6 mg/dL (Normal) Range: 8.5-10.1 BUN/CRE 12.6 {RATIO} (Normal) Range: 10-20 Estimated CRCL 36.78 ml/min (Normal) EST GFR - AA 55 mL/min (Abnormal) Comments: GFR Calc EST GFR 46 mL/min (Abnormal) Comments: Non- GFR Calc CREAT,SERUM 1.59 mg/dL (Abnormal) Range: 0.70-1.30 Comments: The validity of the calculated GFR AND GFRAA in patients over70 years has not been determined. Clinical correlation isessential. BUN 20 mg/dL (Abnormal) Range: 7-18 GLU 127 mg/dL (Abnormal) Range: 70-110 Comments: Fasting Glucose result greater than or equal to 126 mg/dLsuggests DIABETES MELLITUS per A.D.A. criteria. 3-Rxi-720320:03 BNP,B-Type NATRIURETIC PEPTIDE Comments: [facility] [address] [place], [address] B-TYPE KAE PEP 732.8 pg/mL (Abnormal) Range: 0-100 :03 CBC W/Diff, Automated Comments: [facility] [address] [place], [address] Absolute Lymph 0.93 {X10_3/ul} (Normal) Range: 0.83-4.51 Absolute Neut 4.9 {X10_3/uL} (Normal) Range: 2.0-7.7 IM GRAN % 0.300 % (Normal) Range: 0.0-0.9 Comments: IG% - Immature Granulocytes (promyelocytes, myelocytes andmetamyelocytes) > 1% indicates that a LEFT SHIFT is Present. BASO% 0.3 % (Normal) Range: 0-1 EO% 1.2 % (Normal) Range: 0-5 MONO% 11.8 % (Abnormal) Range: 0-10 LY% 13.8 % (Abnormal) Range: 19-41 NEUT% 72.6 % (Abnormal) Range: 47-70 MPV 10.3 fL (Normal) Range: 6.2-12.0 PLT 179 K/mm3 (Normal) Range: 150-450 RDW SD 50.8 fL (Abnormal) Range: 35.1-43.9 RDW CV 15.4 % (Abnormal) Range: 11.6-14.6 MCHC 31.2 {g/gl} (Abnormal) Range: 32-36 MCH 28.7 pg (Normal) Range: 27.0-32.0 MCV 91.8 fL (Normal) Range: 80-94 HCT 44.5 % (Normal) Range: 40-54 HGB 13.9 g/dL (Normal) Range: 13.0-16.5 RBC 4.85 {M/mm3} (Normal) Range: 4.6-6.2 WBC 6.8 K/mm3 (Normal) Range: 4.4-11.0 7-Huj-784764:03 Liver Profile Comments: 'TROP' Serial specimen #1, #2, #3, or #4: [facility] [address] [place], [place], [id number] D BILI 0.39 mg/dL (Abnormal) Range: 0.00-0.30 T BILI 1.40 mg/dL (Abnormal) Range: 0.20-1.00 ALT 16 U/L (Normal) Range: 12-78 ALK P 90 U/L (Normal) Range: 50-136 AST 18 U/L (Normal) Range: 15-37 GLOB 3.7 g/dL (Abnormal) Range: 2.3-3.5 ALB 3.4 g/dL (Normal) Range: 3.4-5.0 T PROT 7.1 g/dL (Normal) Range: 6.4-8.2 1-Wfm-057092:03 Troponin-I Comments: 'TROP' Serial specimen #1, #2, #3, or #4: [facility] [address] [place], [address] TROPONIN-I < 0.02 ng/mL (Normal) Comments: TROPONIN-I EXPECTED VALUES <0.05 NEGATIVE 0.06 - 0.59 AT RISK OF [place] > OR = 0.60 SUGGEST [place] 8-Dtp-367970:07 Urinalysis, Office (66975) UA - LEUKOCYTE ESTERASE Negative (Normal) UA - NITRITE Negative (Normal) URINE UROBILINGN KATELIN TIMED 4 mg/dL (Normal) UA - PROTEIN 30 mg/dL (Normal) UA - PH 7 (Normal) UA - BLOOD Negative (Normal) UA - SPECIFIC GRAVITY 1.020 (Normal) UA - KETONES Negative mg/dL (Normal) UA - BILIRUBIN Negative (Normal) UA - GLUCOSE Negative (Normal) 46-Jab-819193:59 HgA1C , Office (14226) HgA1C , Office 6.3 % (Normal) Range: 4.6 - 7.1 31-Odt-803280:59 Blood Glucose , Office (77492) Blood Glucose , Office 177 (Normal) 60-Ypt-83931:44 Basic Metabolic Profile (BMP) Comments: [facility] [address], [address] GAP 7 (Normal) Range: 5-15 CO2 32.0 mmol/L (Normal) Range: 21.0-32.0 CL 101 mmol/L (Normal) Range: 98-107 K 3.5 mmol/L (Normal) Range: 3.5-5.1 NA 140 mmol/L (Normal) Range: 136-145 CA 8.5 mg/dL (Normal) Range: 8.5-10.1 BUN/CRE 14.4 {RATIO} (Normal) Range: 10-20 EST GFR - AA 55 mL/min (Abnormal) Comments: GFR Calc EST GFR 45 mL/min (Abnormal) Comments: Non- GFR Calc CREAT,SERUM 1.60 mg/dL (Abnormal) Range: 0.70-1.30 Comments: The validity of the calculated GFR AND GFRAA in patients over70 years has not been determined. Clinical correlation isessential. BUN 23 mg/dL (Abnormal) Range: 7-18 GLU 138 mg/dL (Abnormal) Range: 70-110 Comments: Fasting Glucose result greater than or equal to 126 mg/dLsuggests DIABETES MELLITUS per A.D.A. criteria. 4-Hkv-420210:32 Microscopic Examination Comments: PATIENT NOT FASTINGPERFORMED BY: [employer] Ddjrjn7207 [facility] [id number] Bacteria None seen (Normal) Mucus Threads Present (Normal) Cast Type Hyaline casts (Normal) Casts Present {/lpf} (Abnormal) Epithelial Cells (non renal) 0-10 {/hpf} (Normal) Range: 0 - 10 RBC 0-2 {/hpf} (Normal) Range: 0 - 2 WBC 0-5 {/hpf} (Normal) Range: 0 - 5 8-Xhg-871351:32 CALCIFIDIOL (54649) VIT D 25 Comments: PATIENT NOT FASTINGPERFORMED BY: [facility] Hqimjv9317 [facility] [id number] Vitamin D, 25-Hydroxy 34.1 ng/mL (Normal) Range: 30.0-100.0 Comments: Vitamin D deficiency has been defined by the [place] of[place] and an Endocrine Society practice guideline as alevel of serum 25-OH vitamin D less than 20 ng/mL (1,2).The Endocrine Society went on to further define vitamin Dinsufficiency as a level between 21 and 29 ng/mL (2).1. IOM ([place] [employer]). 2010. Dietary reference intakes for calcium and D. [place]: The National Academies Press.2. Marcelle MF, Justin PURCELL, Amira ELIAS, et al. Evaluation, treatment, and prevention of vitamin D deficiency: an Endocrine Society clinical practice guideline. JCEM. 2010; 96(7):1911-30. :32 TSH (95424) Comments: PATIENT NOT FASTINGPERFORMED BY: [facility] Semi ConductorsAscension Borgess-Pipp Hospital6370 [facility] [id number] TSH 5.190 {uIU/mL} (Abnormal) Range: 0.450-4.500 :32 URINALYSIS, W/ MICRO (15597) Comments: PATIENT NOT FASTINGPERFORMED BY: [facility] Semi ConductorsAsc[facility] Hospital6370 [facility] [id number] Microscopic Examination See below: (Normal) Comments: Microscopic was indicated and was performed. Microscopic Examination MICRON (Normal) Comments: Microscopic follows if indicated. Nitrite, Urine Negative (Normal) Urobilinogen,Semi-Qn 1.0 mg/dL (Normal) Range: 0.2-1.0 Bilirubin Negative (Normal) Occult Blood Negative (Normal) Ketones Negative (Normal) Glucose Negative (Normal) Protein Trace (Normal) WBC Esterase Negative (Normal) Appearance Clear (Normal) Urine-Color Yellow (Normal) pH 6.5 (Normal) Range: 5.0-7.5 Specific Twilight 1.019 (Normal) Range: 1.005-1.030 :32 MICROALBUMIN: CREATININE RATIO Comments: PATIENT NOT FASTINGPERFORMED BY: [facility] ConductorsAsc[facility] Hospital6370 [facility] [id number] (42159) AND (57770) Microalb/Creat Ratio 43.8 {mg/g_creat} (Abnormal) Range: 0.0-30.0 Microalbumin, Urine 51.0 ug/mL (Normal) Creatinine, Urine 116.5 mg/dL (Normal) :32 METABOLIC PANEL, COMPREHENSIVE Comments: PATIENT NOT FASTINGPERFORMED BY: [facility] ConductorsAsc[facility] Hospital6370 [facility] [id number] (56134) ALT (SGPT) 13 [iU]/L (Normal) Range: 0-44 AST (SGOT) 17 [iU]/L (Normal) Range: 0-40 Alkaline Phosphatase, S 68 [iU]/L (Normal) Range: 39-117 Bilirubin, Total 1.3 mg/dL (Abnormal) Range: 0.0-1.2 A/G Ratio 1.7 (Normal) Range: 1.1-2.5 Globulin, Total 2.2 g/dL (Normal) Range: 1.5-4.5 Albumin, Serum 3.8 g/dL (Normal) Range: 3.5-4.8 Protein, Total, Serum 6.0 g/dL (Normal) Range: 6.0-8.5 Calcium, Serum 8.9 mg/dL (Normal) Range: 8.6-10.2 Carbon Dioxide, Total 27 mmol/L (Normal) Range: 18-29 Chloride, Serum 102 mmol/L (Normal) Range: 97-108 Potassium, Serum 4.1 mmol/L (Normal) Range: 3.5-5.2 Sodium, Serum 147 mmol/L (Abnormal) Range: 134-144 BUN/Creatinine Ratio 18 (Normal) Range: 10-22 eGFR If Africn Am 54 mL/min/1.73 (Abnormal) eGFR If NonAfricn Am 47 mL/min/1.73 (Abnormal) Creatinine, Serum 1.47 mg/dL (Abnormal) Range: 0.76-1.27 BUN 26 mg/dL (Normal) Range: 8-27 Glucose, Serum 122 mg/dL (Abnormal) Range: 65-99 8-Seb-726769:32 LIPID PANEL (28629) Comments: PATIENT NOT FASTINGPERFORMED BY: [facility]CoB[facility] Children's HospitalAjqxhs4445 [facility] [id number] LDL/HDL Ratio 1.9 {ratio_units} (Normal) Range: 0.0-3.6 Comments: LDL/HDL Ratio Men Women 1/2 Avg.Risk 1.0 1.5 Av g.Risk 3.6 3.2 2X Avg.Risk 6.2 5.0 3X Avg.Risk 8.0 6.1 LDL Cholesterol Calc 80 mg/dL (Normal) Range: 0-99 VLDL Cholesterol Bharat 22 mg/dL (Normal) Range: 5-40 HDL Cholesterol 43 mg/dL (Normal) Comments: According to ATP-III Guidelines, HDL-C >59 mg/dL is considered anegative risk factor for CHD. Triglycerides 108 mg/dL (Normal) Range: 0-149 Cholesterol, Total 145 mg/dL (Normal) Range: 100-199 9-Loi-593595:32 CBC W/AUTO DIFF WBC Comments: PATIENT NOT FASTINGPERFORMED BY: [employer] Ljvyvy9175 [facility] [id number] Information: [id number] (53726) Immature Grans (Abs) 0.0 {x10E3/uL} (Normal) Range: 0.0-0.1 Immature Granulocytes 0 % (Normal) Baso (Absolute) 0.0 {x10E3/uL} (Normal) Range: 0.0-0.2 Eos (Absolute) 0.1 {x10E3/uL} (Normal) Range: 0.0-0.4 Monocytes(Absolute) 0.8 {x10E3/uL} (Normal) Range: 0.1-0.9 Lymphs (Absolute) 1.1 {x10E3/uL} (Normal) Range: 0.7-3.1 Neutrophils (Absolute) 4.5 {x10E3/uL} (Normal) Range: 1.4-7.0 Basos 1 % (Normal) Eos 2 % (Normal) Monocytes 12 % (Normal) Lymphs 16 % (Normal) Neutrophils 69 % (Normal) Platelets 203 {x10E3/uL} (Normal) Range: 150-379 RDW 15.3 % (Normal) Range: 12.3-15.4 MCHC 30.5 g/dL (Abnormal) Range: 31.5-35.7 MCH 28.7 pg (Normal) Range: 26.6-33.0 MCV 94 fL (Normal) Range: 79-97 Hematocrit 41.6 % (Normal) Range: 37.5-51.0 Hemoglobin 12.7 g/dL (Normal) Range: 12.6-17.7 RBC 4.42 {x10E6/uL} (Normal) Range: 4.14-5.80 WBC 6.5 {x10E3/uL} (Normal) Range: 3.4-10.8 0-Trm-724167:32 PSA (PROSTATE SPECIFIC Comments: send copy to dr mast; PATIENT NOT FASTINGPERFORMED BY: [employer] Xemote0702 [facility] [id number] ANTIGEN) (V76.44) Prostate Specific Ag, 2.1 ng/mL (Normal) Range: 0.0-4.0 Serum Comments: Temo ECLIA methodology. .According to the [place] [employer], Serum PSA shoulddecrease and remain at undetectable levels after radicalprostatectomy. The AUA defines biochemical recurrence as an initialPSA value 0.2 ng/mL or greater followed by a subsequent confirmatoryPSA value 0.2 ng/mL or greater.Values obtained with d ifferent assay methods or kits cannot be usedinterchangeably. Results cannot be interpreted as absolute evidenceof the presence or absence of malignant disease. 71-Pti-436592:20 Metabolic Panel, Basic Comments: PATIENT NOT FASTINGPERFORMED BY: [facility]CoB[facility] Squ[facility] Children's HospitalTmgikt8054 [facility] [id number] Information: [id number] ([id number]) Calcium, Serum 9.0 mg/dL (Normal) Range: 8.6-10.2 Carbon Dioxide, Total 24 mmol/L (Normal) Range: 18-29 Chloride, Serum 96 mmol/L (Abnormal) Range: 97-108 Potassium, Serum 4.2 mmol/L (Normal) Range: 3.5-5.2 Sodium, Serum 139 mmol/L (Normal) Range: 134-144 BUN/Creatinine Ratio 14 (Normal) Range: 10-22 eGFR If Africn Am 62 mL/min/1.73 (Normal) eGFR If NonAfricn Am 54 mL/min/1.73 (Abnormal) Creatinine, Serum 1.31 mg/dL (Abnormal) Range: 0.76-1.27 BUN 18 mg/dL (Normal) Range: 8-27 Glucose, Serum 90 mg/dL (Normal) Range: 65-99 7-Wmz-595172:26 BNP,B-Type NATRIURETIC PEPTIDE Comments: [facility] [address] [place], [address] B-TYPE KAE PEP 247.5 pg/mL (Abnormal) Range: 0-100 2-Mxq-623991:26 CBC W/Diff, Automated Comments: [facility] [address] [place], [address] Absolute Lymph 0.87 {X10_3/ul} (Normal) Range: 0.83-4.51 Absolute Neut 6.4 {X10_3/uL} (Normal) Range: 2.0-7.7 IM GRAN % 0.100 % (Normal) Range: 0.0-0.9 Comments: IG% - Immature Granulocytes (promyelocytes, myelocytes andmetamyelocytes) > 1% indicates that a LEFT SHIFT is Present. BASO% 0.1 % (Normal) Range: 0-1 EO% 0.9 % (Normal) Range: 0-5 MONO% 10.3 % (Abnormal) Range: 0-10 LY% 10.6 % (Abnormal) Range: 19-41 NEUT% 78.0 % (Abnormal) Range: 47-70 MPV 11.8 fL (Normal) Range: 6.2-12.0 PLT 227 K/mm3 (Normal) Range: 150-450 RDW SD 48.9 fL (Abnormal) Range: 35.1-43.9 RDW CV 15.5 % (Abnormal) Range: 11.6-14.6 MCHC 31.9 {g/gl} (Abnormal) Range: 32-36 MCH 28.4 pg (Normal) Range: 27.0-32.0 MCV 89.2 fL (Normal) Range: 80-94 HCT 41.1 % (Normal) Range: 40-54 HGB 13.1 g/dL (Normal) Range: 13.0-16.5 RBC 4.61 {M/mm3} (Normal) Range: 4.6-6.2 WBC 8.2 K/mm3 (Normal) Range: 4.4-11.0 5-Wzy-377121:08 Basic Metabolic Profile (BMP) Comments: [facility] [address] [place], [address] GAP 11 (Normal) Range: 5-15 CO2 30.0 mmol/L (Normal) Range: 21.0-32.0 CL 100 mmol/L (Normal) Range: 98-107 K 3.5 mmol/L (Normal) Range: 3.5-5.1 NA 141 mmol/L (Normal) Range: 136-145 CA 9.0 mg/dL (Normal) Range: 8.5-10.1 BUN/CRE 18.2 {RATIO} (Normal) Range: 10-20 EST GFR - AA 34 mL/min (Abnormal) Comments: GFR Calc EST GFR 28 mL/min (Abnormal) Comments: Non- GFR Calc CREAT,SERUM 2.42 mg/dL (Abnormal) Range: 0.70-1.30 Comments: The validity of the calculated GFR AND GFRAA in patients over70 years has not been determined. Clinical correlation isessential. BUN 44 mg/dL (Abnormal) Range: 7-18 GLU 120 mg/dL (Abnormal) Range: 70-110 Comments: Fasting Glucose result from 110 to <126 mg/dLsuggests IMPAIRED HOMEOSTASIS per A.D.A. criteria. 4-Npg-070889:00 Basic Metabolic Profile (BMP) Comments: [facility] [address] [place], [place], [phone]([phone] GAP 12 (Normal) Range: 5-15 CO2 26.0 mmol/L (Normal) Range: 21.0-32.0 CL 101 mmol/L (Normal) Range: 98-107 K 3.7 mmol/L (Normal) Range: 3.5-5.1 NA 139 mmol/L (Normal) Range: 136-145 CA 8.8 mg/dL (Normal) Range: 8.5-10.1 BUN/CRE 14.4 {RATIO} (Normal) Range: 10-20 EST GFR - AA 27 mL/min (Abnormal) Comments: GFR Calc EST GFR 23 mL/min (Abnormal) Comments: Non- GFR Calc CREAT,SERUM 2.91 mg/dL (Abnormal) Range: 0.70-1.30 Comments: The validity of the calculated GFR AND GFRAA in patients over70 years has not been determined. Clinical correlation isessential. BUN 42 mg/dL (Abnormal) Range: 7-18 GLU 134 mg/dL (Abnormal) Range: 70-110 Comments: Fasting Glucose result greater than or equal to 126 mg/dLsuggests DIABETES MELLITUS per A.D.A. criteria. 72-Vco-485755:33 Basic Metabolic Profile (BMP) Comments: [facility] [address] [place], [place], [id number] GAP 5 (Normal) Range: 5-15 CO2 26.0 mmol/L (Normal) Range: 21.0-32.0 CL 105 mmol/L (Normal) Range: 98-107 K 3.8 mmol/L (Normal) Range: 3.5-5.1 NA 136 mmol/L (Normal) Range: 136-145 CA 8.9 mg/dL (Normal) Range: 8.5-10.1 BUN/CRE 14.8 {RATIO} (Normal) Range: 10-20 EST GFR - AA 34 mL/min (Abnormal) Comments: GFR Calc EST GFR 28 mL/min (Abnormal) Comments: Non- GFR Calc CREAT,SERUM 2.43 mg/dL (Abnormal) Range: 0.70-1.30 Comments: The validity of the calculated GFR AND GFRAA in patients over70 years has not been determined. Clinical correlation isessential. BUN 36 mg/dL (Abnormal) Range: 7-18 GLU 128 mg/dL (Abnormal) Range: 70-110 Comments: Fasting Glucose result greater than or equal to 126 mg/dLsuggests DIABETES MELLITUS per A.D.A. criteria. 22-Ozh-365015:07 Basic Metabolic Profile (BMP) Comments: [facility] [address] [facility] [place], [address] GAP 0 (Abnormal) Range: 5-15 CO2 30.0 mmol/L (Normal) Range: 21.0-32.0 CL 114 mmol/L (Abnormal) Range: 98-107 K 3.7 mmol/L (Normal) Range: 3.5-5.1 NA 144 mmol/L (Normal) Range: 136-145 CA 8.6 mg/dL (Normal) Range: 8.5-10.1 BUN/CRE 17.2 {RATIO} (Normal) Range: 10-20 EST GFR - AA 54 mL/min (Abnormal) Comments: GFR Calc EST GFR 44 mL/min (Abnormal) Comments: Non- GFR Calc CREAT,SERUM 1.63 mg/dL (Abnormal) Range: 0.70-1.30 Comments: The validity of the calculated GFR AND GFRAA in patients over70 years has not been determined. Clinical correlation isessential. BUN 28 mg/dL (Abnormal) Range: 7-18 GLU 101 mg/dL (Normal) Range: 70-110 28-Fef-616812:07 BNP,B-Type NATRIURETIC PEPTIDE Comments: [facility] [id number] [facility]. [place], [place], [id number] B-TYPE KAE PEP 560.9 pg/mL (Abnormal) Range: 0-100 :04 ALBUMIN SERUM (25190) Comments: PATIENT NOT FASTINGPERFORMED BY: [facility] HospitalIhwvue4989 [facility] [id number] Albumin, Serum 3.4 g/dL (Abnormal) Range: 3.5-4.8 24-Ufv-275765:04 BASIC METABOLIC w/Ionized Comments: PATIENT NOT FASTINGPERFORMED BY: [facility] HospitalYjzfcp3193 [facility] [id number] Information: [id number] Ca++ (03958) Calcium, Serum 8.5 mg/dL (Abnormal) Range: 8.6-10.2 Carbon Dioxide, Total 24 mmol/L (Normal) Range: 18-29 Chloride, Serum 102 mmol/L (Normal) Range: 97-108 Potassium, Serum 4.0 mmol/L (Normal) Range: 3.5-5.2 Sodium, Serum 144 mmol/L (Normal) Range: 134-144 BUN/Creatinine Ratio 16 (Normal) Range: 10-22 eGFR If Africn Am 48 mL/min/1.73 (Abnormal) eGFR If NonAfricn Am 42 mL/min/1.73 (Abnormal) Creatinine, Serum 1.61 mg/dL (Abnormal) Range: 0.76-1.27 BUN 25 mg/dL (Normal) Range: 8-27 Glucose, Serum 171 mg/dL (Abnormal) Range: 65-99 [id number]-Ywq-[id number]:34 Calcium Ionized Comments: [facility] (refer to report for specific site)refer to report for address [place] [address] Test not performed (Normal) Comments: Patient has been credited for testing not performed. Pleasehave patient return if testing is still required. :36 Anion Gap Comments: [facility] [id number] [place], [place], [id number] GAP 3 (Abnormal) Range: 5-15 1-Oye-141464:36 BUN 18 mg/dL (Normal) Comments: [facility] [id number]. [place], [place], [address] Range: 7-18 4-Pgk-105249:36 BUN/Creat Ratio Comments: [place] [address] [address] [id number] BUN/CRE 11.0 {RATIO} (Normal) Range: 10-20 6-Otk-727419:36 Carbon Dioxide Comments: [address] [address] CO2 30.0 mmol/L (Normal) Range: 21.0-32.0 6-Mvm-563317:36 Chloride Comments: [address] StreetCATHY Jackson [address] CL 109 mmol/L (Abnormal) Range: 98-107 :36 Creatinine, Serum Comments: [address] [address] CREAT,SERUM 1.64 mg/dL (Abnormal) Range: 0.70-1.30 Comments: The validity of the calculated GFR AND GFRAA in patients over70 years has not been determined. Clinical correlation isessential. :36 Glucose Comments: [address], [id number]([phone] GLU 157 mg/dL (Abnormal) Range: 70-110 Comments: Fasting Glucose result greater than or equal to 126 mg/dLsuggests DIABETES MELLITUS per A.D.A. criteria. :36 Potassium Comments: [address] [place] [id number] K 4.3 mmol/L (Normal) Range: 3.5-5.1 8-Htb-646410:36 Sodium Level Comments: [address], [id number](064 NA 142 mmol/L (Normal) Range: 136-145 01-Lcv-509947:36 Urinalysis, Office (35930) UA - LEUKOCYTE ESTERASE Negative (Normal) UA - NITRITE Negative (Normal) URINE UROBILINGN KATELIN TIMED Normal mg/dL (Normal) UA - PROTEIN Negative mg/dL (Normal) UA - PH 6.0 (Normal) Comments: 5.5 UA - BLOOD Hemolyzed Trace (Normal) UA - SPECIFIC GRAVITY 1.005 (Normal) UA - KETONES Negative mg/dL (Normal) UA - BILIRUBIN Negative (Normal) UA - GLUCOSE Negative (Normal) 74-Igl-623665:06 Metabolic Panel, Basic Comments: PATIENT NOT FASTINGPERFORMED BY: [employer] Live Zerply [facility] [id number] Information: [id number]; will review at next appt. (55148) Calcium, Serum 9.3 mg/dL (Normal) Range: 8.6-10.2 Carbon Dioxide, Total 26 mmol/L (Normal) Range: 18-29 Chloride, Serum 107 mmol/L (Normal) Range: 97-108 Potassium, Serum 4.5 mmol/L (Normal) Range: 3.5-5.2 Sodium, Serum 150 mmol/L (Abnormal) Range: 134-144 BUN/Creatinine Ratio 23 (Abnormal) Range: 10-22 eGFR If Africn Am 45 mL/min/1.73 (Abnormal) eGFR If NonAfricn Am 39 mL/min/1.73 (Abnormal) Creatinine, Serum 1.71 mg/dL (Abnormal) Range: 0.76-1.27 BUN 39 mg/dL (Abnormal) Range: 8-27 Glucose, Serum 111 mg/dL (Abnormal) Range: 65-99 14-Zko-229883:07 URINE DAWIT CULTURE-IDENTIFICATN Comments: PATIENT NOT FASTINGPERFORMED BY: [employer] Live [employer]erply [facility] [id number] ([id number]) Result 1 MUG (Normal) Comments: Mixed urogenital flora1,000 Colonies/mL Urine Culture,Comprehensive Final report (Normal) 79-Bti-732509:07 URINALYSIS (44696) Comments: PATIENT NOT FASTINGPERFORMED BY: CodeshipBristol-Myers Squibb Children's HospitalAigxft2725 [facility] [id number] Information: [id number] Microscopic Examination MICNIP (Normal) Comments: Microscopic not indicated and not performed. Nitrite, Urine Negative (Normal) Urobilinogen,Semi-Qn 0.2 mg/dL (Normal) Range: 0.2-1.0 Bilirubin Negative (Normal) Occult Blood Negative (Normal) Ketones Negative (Normal) Glucose Negative (Normal) Protein Negative (Normal) WBC Esterase Negative (Normal) Appearance Clear (Normal) Urine-Color Yellow (Normal) pH 6.0 (Normal) Range: 5.0-7.5 Specific Twilight 1.010 (Normal) Range: 1.005-1.030 6-Nzj-960028:02 Basic Metabolic Profile (BMP) Comments: [facility] [address] [place], [address] GAP 9 (Normal) Range: 5-15 CO2 33.0 mmol/L (Abnormal) Range: 21.0-32.0 CL 103 mmol/L (Normal) Range: 98-107 K 3.8 mmol/L (Normal) Range: 3.5-5.1 NA 145 mmol/L (Normal) Range: 136-145 CA 8.6 mg/dL (Normal) Range: 8.5-10.1 BUN/CRE 13.2 {RATIO} (Normal) Range: 10-20 EST GFR - AA 52 mL/min (Abnormal) Comments: GFR Calc EST GFR 43 mL/min (Abnormal) Comments: Non- GFR Calc CREAT,SERUM 1.67 mg/dL (Abnormal) Range: 0.70-1.30 Comments: The validity of the calculated GFR AND GFRAA in patients over70 years has not been determined. Clinical correlation isessential. BUN 22 mg/dL (Abnormal) Range: 7-18 GLU 143 mg/dL (Abnormal) Range: 70-110 Comments: Fasting Glucose result greater than or equal to 126 mg/dLsuggests DIABETES MELLITUS per A.D.A. criteria. 3-Vno-888313:02 BNP,B-Type NATRIURETIC PEPTIDE Comments: [facility] [address] [place], [address] B-TYPE KAE PEP 202.1 pg/mL (Abnormal) Range: 0-100 82-Gyr-254213:55 BNP,B-Type NATRIURETIC PEPTIDE Comments: [facility] [address] [place], [address] B-TYPE KAE PEP 288.3 pg/mL (Abnormal) Range: 0-100 89-Xzg-714310:48 BNP,B-Type NATRIURETIC PEPTIDE Comments: [facility] [address] [place], [place], [address] B-TYPE KAE PEP 231.4 pg/mL (Abnormal) Range: 0-100 92-Vtm-409216:33 ASSAY, NATIURETIC PEPTIDE Comments: PATIENT NOT FASTINGPERFORMED BY: [facility] Ywvldx6552 [facility] [id number] Information: [id number] (40903) B-Type Natriuretic Peptide 296.5 pg/mL (Abnormal) Range: 0.0-100.0 47-Kma-942172:15 Basic Metabolic Profile (BMP) Comments: Serial Specimen #1, #2 or #3? 1'TROP' Serial specimen #1, #2, #3, or #4: [facility] [address] [place], [place], [id number] GAP 7 (Normal) Range: 5-15 CO2 24.0 mmol/L (Normal) Range: 21.0-32.0 CL 111 mmol/L (Abnormal) Range: 98-107 K 3.8 mmol/L (Normal) Range: 3.5-5.1 NA 142 mmol/L (Normal) Range: 136-145 CA 8.3 mg/dL (Abnormal) Range: 8.5-10.1 BUN/CRE 10.6 {RATIO} (Normal) Range: 10-20 Estimated CRCL 44.98 ml/min (Normal) EST GFR - AA 68 mL/min (Normal) Comments: GFR Calc EST GFR 57 mL/min (Abnormal) Comments: Non- GFR Calc CREAT,SERUM 1.32 mg/dL (Abnormal) Range: 0.70-1.30 Comments: The validity of the calculated GFR AND GFRAA in patients over70 years has not been determined. Clinical correlation isessential. BUN 14 mg/dL (Normal) Range: 7-18 GLU 168 mg/dL (Abnormal) Range: 70-110 Comments: Fasting Glucose result greater than or equal to 126 mg/dLsuggests DIABETES MELLITUS per A.D.A. criteria. 30-Ict-843412:15 BNP,B-Type NATRIURETIC PEPTIDE Comments: [facility] [address] [place], [place], [id number] B-TYPE KAE PEP 200.1 pg/mL (Abnormal) Range: 0-100 29-Tih-038497:15 CBC W/Diff, Automated Comments: [facility] [address] [place], [place], [id number] Absolute Lymph 1.42 {X10_3/ul} (Normal) Range: 0.83-4.51 Absolute Neut 5.3 {X10_3/uL} (Normal) Range: 2.0-7.7 IM GRAN % 0.300 % (Normal) Range: 0.0-0.9 Comments: IG% - Immature Granulocytes (promyelocytes, myelocytes andmetamyelocytes) > 1% indicates that a LEFT SHIFT is Present. BASO% 0.3 % (Normal) Range: 0-1 EO% 1.1 % (Normal) Range: 0-5 MONO% 9.9 % (Normal) Range: 0-10 LY% 18.7 % (Abnormal) Range: 19-41 NEUT% 69.7 % (Normal) Range: 47-70 MPV 10.4 fL (Normal) Range: 6.2-12.0 PLT 221 K/mm3 (Normal) Range: 150-450 RDW SD 44.8 fL (Abnormal) Range: 35.1-43.9 RDW CV 13.6 % (Normal) Range: 11.6-14.6 MCHC 32.5 {g/gl} (Normal) Range: 32-36 MCH 29.2 pg (Normal) Range: 27.0-32.0 MCV 89.8 fL (Normal) Range: 80-94 HCT 43.1 % (Normal) Range: 40-54 HGB 14.0 g/dL (Normal) Range: 13.0-16.5 RBC 4.80 {M/mm3} (Normal) Range: 4.6-6.2 WBC 7.6 K/mm3 (Normal) Range: 4.4-11.0 27-Opw-184841:15 CK-MB Quantitative and Index Comments: Serial Specimen #1, #2 or #3? 1'TROP' Serial specimen #1, #2, #3, or #4: [address] [place] [address] [address] [place], [address] CKRI 1.6 % (Abnormal) Range: 0.0-1.4 Comments: RELATIVE INDEX >1.5% IS PRESUMPTIVELY POSITIVE CPKMB 3.3 ng/mL (Normal) Range: 0.0-5.0 Comments: CK-MB and RI Interpretation MB Relative Index Non-AMI <or= 5 NA Indeterminate > 5 <or= 4 AMI > 5 > 4 CPK TOTAL 208 U/L (Normal) Range: 39-308 22-Wya-826938:15 Troponin-I Comments: Serial Specimen #1, #2 or #3? 1'TROP' Serial specimen #1, #2, #3, or #4: [address] [place] [address] [address] [place], [address] TROPONIN-I 0.03 ng/mL (Normal) Comments: TROPONIN-I EXPECTED VALUES <0.05 NEGATIVE 0.06 - 0.59 AT RISK OF [place] > OR = 0.60 SUGGEST [place] 15-Lzx-083870:06 HgA1C , Office (74198) HgA1C , Office 8.0 % (Abnormal) Range: 4.6 - 7.1 29-Lqa-558575:06 Blood Glucose , Office (38022) Blood Glucose , Office 143 (Normal) 2-Fst-715405:12 BUN 15 mg/dL (Normal) Comments: Test performed at:[facility] [address] [place] [address] Range: 7-18 5-Hle-431987:12 Partial Thromboplast Time Comments: Test performed at:[facility] [address] [place] [address] PTT 25.9 s (Normal) Range: 24.1-36.2 6-Yqv-514896:12 Platelet Count Comments: Test performed at:[facility] [address] [place] [address] PLT 243 K/mm3 (Normal) Range: 150-450 2-Wod-128471:12 Prothrombin Time w/INR Comments: Test performed at:[facility] [address] [place] [address] INR 0.9 (Normal) PROTIME 12.3 s (Normal) Range: 11.7-14.9 6-Jmb-390996:12 Serum Creatinine AND GFR Comments: Test performed at:[facility] [address] [place] [address] CREAT,SERUM 1.3 mg/dL (Normal) Range: 0.8-1.3 :09 HgA1C , Office (12921) HgA1C , Office 7.1 % (Normal) Range: 4.6 - 7.1 :09 Blood Glucose , Office (84117) Blood Glucose , Office 141 (Normal) :43 BUN 14 mg/dL (Normal) Range: 7-18 :43 CRE CREAT 1.1 mg/dL (Normal) Range: 0.8-1.3 :43 PLT 184 K/mm3 (Normal) Range: 150-450 :43 PT INR 0.9 (Normal) PTP 12.4 s (Normal) Range: 11.7-14.9 Comments: Please note revised PROTIME reference range ehggmhwre57/14/15. :43 PTT 26.3 s (Normal) Range: 24.1-36.2 76-Elu-482628:25 HgA1C , Office (11419) HgA1C , Office 6.7 % (Normal) Range: 4.6 - 7.1 95-Aao-051182:25 Blood Glucose , Office (95690) Blood Glucose , Office 140 (Normal) 93-Mxh-858120:25 Microscopic Examination Comments: PATIENT WAS FASTINGPERFORMED BY: LabCoBristol-Myers Squibb Children's HospitalLqmbxq0080 [facility] [id number] Bacteria None seen (Normal) Mucus Threads Present (Normal) Epithelial Cells (non renal) None seen {/hpf} (Normal) Range: 0 - 10 RBC 0-3 {/hpf} (Normal) Range: 0 - 3 Comments: Effective September 04, 2013 the reference interval for RBC will be changing to: 0 - 2 /hpf. WBC 0-5 {/hpf} (Normal) Range: 0 - 5 89-Ikr-202482:47 LIPID PANEL (92789) Comments: PATIENT WAS FASTINGPERFORMED BY: [employer] Zerply [facility] [id number] LDL/HDL Ratio 2.7 {ratio_units} (Normal) Range: 0.0-3.6 LDL Cholesterol Calc 90 mg/dL (Normal) Range: 0-99 HDL Cholesterol 33 mg/dL (Abnormal) Comments: According to ATP-III Guidelines, HDL-C >59 mg/dL is considered anegative risk factor for CHD. VLDL Cholesterol Bharat 27 mg/dL (Normal) Range: 5-40 Triglycerides 133 mg/dL (Normal) Range: 0-149 Cholesterol, Total 150 mg/dL (Normal) Range: 100-199 :47 Vitamin D Hydroxy (97467) Comments: PATIENT WAS FASTINGPERFORMED BY: [employer] Ogzlhw1629 [facility] [id number] Vitamin D, 25-Hydroxy 28.7 ng/mL (Abnormal) Range: 30.0-100.0 Comments: Vitamin D deficiency has been defined by the [place] of[employer] and an Endocrine Society practice guideline as alevel of serum 25-OH vitamin D less than 20 ng/mL (1,2).The Endocrine Society went on to further define vitamin Dinsufficiency as a level between 21 and 29 ng/mL (2).1. IOM ([place] of [employer]). 2010. Dietary reference intakes for calcium and D. [place]: The National Academies Press.2. Marcelle MF, Justin NC, Amira ELIAS, et al. Evaluation, treatment, and prevention of vitamin D deficiency: an Endocrine Society clinical practice guideline. JCEM. 2010; 96(7):1911-30.; ADDENDA: appt 21-Aug-201311:47 TSH (43914) Comments: PATIENT WAS FASTINGPERFORMED BY: [employer] Mhjwkd2313 [facility] [id number] TSH 1.700 {uIU/mL} (Normal) Range: 0.450-4.500 61-Baw-657525:47 URINALYSIS, W/ MICRO (23376) Comments: PATIENT WAS FASTINGPERFORMED BY: CodeshipBristol-Myers Squib[facility] Children's HospitalTcwbtm9732 [facility] [id number] Microscopic Examination See below: (Normal) Microscopic Examination MICRON (Normal) Comments: Microscopic follows if indicated. Nitrite, Urine Negative (Normal) Urobilinogen,Semi-Qn 1.0 mg/dL (Normal) Range: 0.0-1.9 Bilirubin Negative (Normal) Occult Blood Negative (Normal) Ketones Negative (Normal) Glucose Negative (Normal) Protein Negative (Normal) WBC Esterase Negative (Normal) Appearance Clear (Normal) Urine-Color Yellow (Normal) pH 6.0 (Normal) Range: 5.0-7.5 Specific Twilight 1.019 (Normal) Range: 1.005-1.030 69-Zdo-861658:47 MICROALBUMIN: CREATININE RATIO Comments: PATIENT WAS FASTINGPERFORMED BY: Attune LiveBristol-Myers Squibb Children's HospitalFzjhwq8109 [facility] [id number] (03378) AND (55366) Microalb/Creat Ratio 5.9 {mg/g_creat} (Normal) Range: 0.0-30.0 Microalbumin, Urine 10.0 ug/mL (Normal) Range: 0.0-17.0 Creatinine, Urine 169.3 mg/dL (Normal) Range: 22.0-328.0 66-Lka-032523:47 METABOLIC PANEL, COMPREHENSIVE Comments: PATIENT WAS FASTINGPERFORMED BY: CodeshipBristol-Myers Squibb Children's HospitalRofupz9214 [facility] [id number] (90406) ALT (SGPT) 13 [iU]/L (Normal) Range: 0-44 AST (SGOT) 23 [iU]/L (Normal) Range: 0-40 Alkaline Phosphatase, S 57 [iU]/L (Normal) Range: 39-117 Bilirubin, Total 1.2 mg/dL (Normal) Range: 0.0-1.2 A/G Ratio 1.8 (Normal) Range: 1.1-2.5 Globulin, Total 2.1 g/dL (Normal) Range: 1.5-4.5 Albumin, Serum 3.8 g/dL (Normal) Range: 3.5-4.8 Protein, Total, Serum 5.9 g/dL (Abnormal) Range: 6.0-8.5 Calcium, Serum 8.8 mg/dL (Normal) Range: 8.6-10.2 Carbon Dioxide, Total 24 mmol/L (Normal) Range: 19-28 Chloride, Serum 103 mmol/L (Normal) Range: 97-108 Potassium, Serum 4.1 mmol/L (Normal) Range: 3.5-5.2 Sodium, Serum 141 mmol/L (Normal) Range: 134-144 BUN/Creatinine Ratio 13 (Normal) Range: 10-22 eGFR If Africn Am 74 mL/min/1.73 (Normal) eGFR If NonAfricn Am 64 mL/min/1.73 (Normal) Creatinine, Serum 1.15 mg/dL (Normal) Range: 0.76-1.27 BUN 15 mg/dL (Normal) Range: 8-27 Glucose, Serum 118 mg/dL (Abnormal) Range: 65-99 54-Xxw-891469:47 CBC WITH MANUAL DIFF Comments: PATIENT WAS FASTINGPERFORMED BY: [facility] Expjxm0109 [facility] [id number] Information: [id number] (86253) Immature Grans (Abs) 0.0 {x10E3/uL} (Normal) Range: 0.0-0.1 Immature Granulocytes 0 % (Normal) Range: 0-2 Baso (Absolute) 0.0 {x10E3/uL} (Normal) Range: 0.0-0.2 Eos (Absolute) 0.2 {x10E3/uL} (Normal) Range: 0.0-0.4 Monocytes(Absolute) 0.8 {x10E3/uL} (Normal) Range: 0.1-0.9 Lymphs (Absolute) 1.6 {x10E3/uL} (Normal) Range: 0.7-3.1 Neutrophils (Absolute) 4.4 {x10E3/uL} (Normal) Range: 1.4-7.0 Basos 1 % (Normal) Range: 0-3 Eos 3 % (Normal) Range: 0-5 Monocytes 11 % (Normal) Range: 4-12 Lymphs 22 % (Normal) Range: 14-46 Neutrophils 63 % (Normal) Range: 40-74 Platelets 233 {x10E3/uL} (Normal) Range: 155-379 RDW 14.1 % (Normal) Range: 12.3-15.4 MCHC 33.7 g/dL (Normal) Range: 31.5-35.7 MCH 28.7 pg (Normal) Range: 26.6-33.0 MCV 85 fL (Normal) Range: 79-97 Hematocrit 41.6 % (Normal) Range: 37.5-51.0 Hemoglobin 14.0 g/dL (Normal) Range: 12.6-17.7 RBC 4.87 {x10E6/uL} (Normal) Range: 4.14-5.80 WBC 7.0 {x10E3/uL} (Normal) Range: 3.4-10.8 :38 HgA1C , Office (65478) HgA1C , Office 6.2 % (Normal) Range: 4.6 - 7.1 23-Iey-965849:38 Blood Glucose , Office (08384) Blood Glucose , Office 119 (Normal) 48-Wzk-156905:28 HgA1C , Office (75335) HgA1C , Office 6.7 % (Normal) Range: 4.6 - 7.1 20-Nmj-447121:28 Blood Glucose , Office (15693) Blood Glucose , Office 131 (Normal) 16-Zyp-723354:08 MICROALBUMIN: CREATININE RATIO Comments: PATIENT WAS FASTINGPERFORMED BY: Xcelaero70 [facility] FeedD[facility] Hospital [id number] (58938) AND (37534) Microalb/Creat Ratio 14.3 {mg/g_creat} (Normal) Range: 0.0-30.0 Microalbumin, Urine 24.5 ug/mL (Abnormal) Range: 0.0-17.0 Creatinine, Urine 171.3 mg/dL (Normal) Range: 22.0-328.0 30-Zoe-889017:46 Microscopic Examination Comments: PATIENT NOT FASTINGPERFORMED BY: MailMeNetworkDuke [facility] Hospital [id number] Bacteria Few (Normal) Mucus Threads Present (Normal) Epithelial Cells (non renal) 0-10 {/hpf} (Normal) Range: 0 - 10 RBC 0-3 {/hpf} (Normal) Range: 0 - 3 WBC 0-5 {/hpf} (Normal) Range: 0 - 5 :46 TSH (89618) Comments: PATIENT NOT FASTINGPERFORMED BY: CodeshipArtesia General HospitalImhgxm2680 [facility] [id number] TSH 2.720 {uIU/mL} (Normal) Range: 0.450-4.500 :46 URINALYSIS, W/ MICRO (80363) Comments: PATIENT NOT FASTINGPERFORMED BY: [employer] Semi ConductorsAscension Borgess-Pipp Hospital6370 [facility] [id number] Microscopic Examination See below: (Normal) Microscopic Examination MICRON (Normal) Comments: Microscopic follows if indicated. Nitrite, Urine Negative (Normal) Urobilinogen,Semi-Qn 1.0 mg/dL (Normal) Range: 0.0-1.9 Bilirubin Negative (Normal) Occult Blood Negative (Normal) Ketones Negative (Normal) Glucose Negative (Normal) Protein Negative (Normal) WBC Esterase Negative (Normal) Appearance Clear (Normal) Urine-Color Yellow (Normal) pH 6.0 (Normal) Range: 5.0-7.5 Specific Twilight 1.015 (Normal) Range: 1.005-1.030 :46 MICROALBUMIN: CREATININE RATIO Comments: PATIENT NOT FASTINGPERFORMED BY: CodeshipBristol-Myers Squibb Children's HospitalKqogtb2530 [facility] [id number] (72570) AND (61117) Microalb/Creat Ratio 10.0 {mg/g_creat} (Normal) Range: 0.0-30.0 Microalbumin, Urine 12.6 ug/mL (Normal) Range: 0.0-17.0 Creatinine, Urine 125.8 mg/dL (Normal) Range: 22.0-328.0 :46 METABOLIC PANEL, COMPREHENSIVE Comments: PATIENT NOT FASTINGPERFORMED BY: CodeshipBristol-Myers Squibb Children's HospitalEtfqdz6808 [facility] [id number] (32505) ALT (SGPT) 18 [iU]/L (Normal) Range: 0-44 AST (SGOT) 20 [iU]/L (Normal) Range: 0-40 Alkaline Phosphatase, S 66 [iU]/L (Normal) Range: 25-160 Bilirubin, Total 1.6 mg/dL (Abnormal) Range: 0.0-1.2 A/G Ratio 1.6 (Normal) Range: 1.1-2.5 Globulin, Total 2.6 g/dL (Normal) Range: 1.5-4.5 Albumin, Serum 4.2 g/dL (Normal) Range: 3.5-4.8 Protein, Total, Serum 6.8 g/dL (Normal) Range: 6.0-8.5 Calcium, Serum 9.1 mg/dL (Normal) Range: 8.6-10.2 Carbon Dioxide, Total 22 mmol/L (Normal) Range: 20-32 Chloride, Serum 101 mmol/L (Normal) Range: 97-108 Potassium, Serum 3.9 mmol/L (Normal) Range: 3.5-5.2 Sodium, Serum 140 mmol/L (Normal) Range: 134-144 BUN/Creatinine Ratio 12 (Normal) Range: 10-22 eGFR If Africn Am 82 mL/min/1.73 (Normal) eGFR If NonAfricn Am 71 mL/min/1.73 (Normal) Creatinine, Serum 1.06 mg/dL (Normal) Range: 0.76-1.27 BUN 13 mg/dL (Normal) Range: 8-27 Glucose, Serum 116 mg/dL (Abnormal) Range: 65-99 86-Tze-720070:46 LIPID PANEL (39736) Comments: PATIENT NOT FASTINGPERFORMED BY: [employer]6370 [facility] FeedD[facility] [id number] LDL/HDL Ratio 2.1 {ratio_units} (Normal) Range: 0.0-3.6 LDL Cholesterol Calc 94 mg/dL (Normal) Range: 0-99 VLDL Cholesterol Bharat 31 mg/dL (Normal) Range: 5-40 HDL Cholesterol 44 mg/dL (Normal) Comments: According to ATP-III Guidelines, HDL-C >59 mg/dL is considered anegative risk factor for CHD. Triglycerides 155 mg/dL (Abnormal) Range: 0-149 Cholesterol, Total 169 mg/dL (Normal) Range: 100-199 23-Ktr-370274:46 CBC WITH MANUAL DIFF Comments: PATIENT NOT FASTINGPERFORMED BY: [employer]6370 [facility]SourceCritical [facility] hospital [id number] Information: [id number] (47851) Immature Grans (Abs) 0.0 {x10E3/uL} (Normal) Range: 0.0-0.1 Immature Granulocytes 0 % (Normal) Range: 0-2 Baso (Absolute) 0.1 {x10E3/uL} (Normal) Range: 0.0-0.2 Eos (Absolute) 0.3 {x10E3/uL} (Normal) Range: 0.0-0.4 Monocytes(Absolute) 0.8 {x10E3/uL} (Normal) Range: 0.1-1.0 Lymphs (Absolute) 2.2 {x10E3/uL} (Normal) Range: 0.7-4.5 Neutrophils (Absolute) 4.7 {x10E3/uL} (Normal) Range: 1.8-7.8 Basos 1 % (Normal) Range: 0-3 Eos 4 % (Normal) Range: 0-7 Monocytes 10 % (Normal) Range: 4-13 Lymphs 28 % (Normal) Range: 14-46 Neutrophils 57 % (Normal) Range: 40-74 Platelets 233 {x10E3/uL} (Normal) Range: 140-415 RDW 13.9 % (Normal) Range: 12.3-15.4 MCHC 32.6 g/dL (Normal) Range: 31.5-35.7 MCH 28.2 pg (Normal) Range: 26.6-33.0 MCV 87 fL (Normal) Range: 79-97 Hematocrit 49.1 % (Normal) Range: 37.5-51.0 Hemoglobin 16.0 g/dL (Normal) Range: 12.6-17.7 RBC 5.67 {x10E6/uL} (Normal) Range: 4.14-5.80 WBC 8.1 {x10E3/uL} (Normal) Range: 4.0-10.5 :38 HgA1C , Office (34243) HgA1C , Office 6.9 % (Normal) Range: 4.6 - 7.1 :38 Blood Glucose , Office (36804) Blood Glucose , Office 124 (Normal) :08 HgA1C , Office (03160) HgA1C , Office 6.5 % (Normal) Range: 4.6 - 7.1 :10 Blood Glucose , Office (05593) Blood Glucose , Office 129 (Normal) 32-Bvm-623737:08 LIPID PANEL (33341) Comments: PATIENT WAS FASTINGPERFORMED BY: CodeshipBristol-Myers Squibb Children's HospitalAskesp5041 [facility] [id number] LDL/HDL Ratio 2.2 {ratio_units} (Normal) Range: 0.0-3.6 LDL Cholesterol Calc 97 mg/dL (Normal) Range: 0-99 VLDL Cholesterol Bharat 28 mg/dL (Normal) Range: 5-40 HDL Cholesterol 45 mg/dL (Normal) Comments: According to ATP-III Guidelines, HDL-C >59 mg/dL is considered anegative risk factor for CHD. Triglycerides 140 mg/dL (Normal) Range: 0-149 Cholesterol, Total 170 mg/dL (Normal) Range: 100-199 99-Mrf-100053:08 HEPATIC FUNCTION PANEL Comments: PATIENT WAS FASTINGPERFORMED BY: X[employer] Semi ConductorsAscension Borgess-Pipp Hospital6370 [facility] [id number] Information: [id number] (31819) ALT (SGPT) 25 [iU]/L (Normal) Range: 0-55 Comments: Effective February 01, 2012 the reference interval for ALT (SGPT) will be changing to: Male Female 0 - 11 years 0 - 29 0 - 28 12 - 17 years 0 - 30 0 - 24 > 17 years 0 - 44 0 - 32 AST (SGOT) 22 [iU]/L (Normal) Range: 0-40 Alkaline Phosphatase, S 65 [iU]/L (Normal) Range: 25-160 Bilirubin, Direct 0.32 mg/dL (Normal) Range: 0.00-0.40 Bilirubin, Total 1.4 mg/dL (Abnormal) Range: 0.0-1.2 Albumin, Serum 4.0 g/dL (Normal) Range: 3.5-4.8 Protein, Total, Serum 6.1 g/dL (Normal) Range: 6.0-8.5 :55 HgA1C , Office (05135) HgA1C , Office 6.9 % (Normal) Range: 4.6 - 7.1 :55 Blood Glucose , Office (49422) Blood Glucose , Office 126 (Normal) 41-Dwz-842529:07 Hemoglobin Glyclated (HGB Comments: PATIENT NOT FASTINGPERFORMED BY: [place] 9137070 [facility] [id number] Information: [id number] A1C) (42921) Hemoglobin A1c 6.8 % (Abnormal) Range: 4.8-5.6 Comments: . Increased risk for diabetes: 5.7 - 6.4 Diabetes: >6.4 Glycemic control for adults with diabetes: <7.0 [id number] Microscopic Examination Comments: PATIENT WAS FASTINGPERFORMED BY: LabHe[place] [id number] [facility] [id number] Bacteria Few (Normal) Mucus Threads Present (Normal) Epithelial Cells (non renal) None seen {/hpf} (Normal) Range: 0 - 10 RBC 0-3 {/hpf} (Normal) Range: 0 - 3 WBC 0-5 {/hpf} (Normal) Range: 0 - 5 [id number] PSA Total+% Free Comments: PATIENT WAS FASTINGPERFORMED BY: [facility] [id number] Information: [id number] % Free PSA 16.3 % (Normal) Comments: The table below lists the probability of prostate cancer formen with non-suspicious COLTEN results and total PSA between4 and 10 ng/mL, by patient age (Prashant et al, CHUY 1998,279:1542). % Free PSA 50-64 yr 65-75 yr 0.00-10.00% 56% 55% 10.01-15.00% 24% 35% 15.01-20.00% 17% 23% 20.01-25.00% 10% 20% >25.00% 5% 9%Please note: Prashant et al did not make specific recommendations regarding the use of percent free PSA for any other population of men. PSA, Free 1.34 ng/mL Comments: [employer] ECLIA methodology. (Normal) Prostate Specific Ag, 8.2 ng/mL Range: 0.0-4.0 Serum (Abnormal) Comments: [employer] ECLIA methodology. .According to the [employer], Serum PSA shoulddecrease and remain at undetectable levels after radicalprostatectomy. The AUA defines biochemical recurrence as an initialPSA value 0.2 ng/mL or greater followed by a subsequent confirmatoryPSA value 0.2 ng/mL or greater.Values obtained with d ifferent assay methods or kits cannot be usedinterchangeably. Results cannot be interpreted as absolute evidenceof the presence or absence of malignant disease. Written Authorization WAR (Normal) Comments: PATIENT WAS FASTINGPERFORMED BY: [facility] [id number] [facility] [id number] 3:58 Comments: Written Authorization Received.Authorization received from DR. STYLES [id number] by Machelle Trejo [id number]-Tyq-[id number]:07 ASSAY, PSA, FREE ([id number]) Comments: PATIENT NOT FASTINGPERFORMED BY: [employer] Ilsgck0357 [place] [facility] [id number] Information: [id number],2ND ORDER NO DRAW F EE % Free PSA 17.6 % (Normal) Comments: The table below lists the probability of prostate cancer formen with non-suspicious COLTEN results and total PSA between4 and 10 ng/mL, by patient age (Catalona et al, CHUY 1998,279:1542). % Free PSA 50-64 yr 65-75 yr 0.00-10.00% 56% 55% 10.01-15.00% 24% 35% 15.01-20.00% 17% 23% 20.01-25.00% 10% 20% >25.00% 5% 9%Please note: Prashant et al did not make specific recommendations regarding the use of percent free PSA for any other population of men. PSA, Free 2.01 ng/mL (Normal) Comments: Temo Aeryon LabsIA methodology. Prostate Specific Ag, Serum 11.4 ng/mL (Abnormal) Range: 0.0-4.0 Comments: Temo ECLIA methodology. .According to the [place] [employer], Serum PSA shoulddecrease and remain at undetectable levels after radicalprostatectomy. The AUA defines biochemical recurrence as an initialPSA value 0.2 ng/mL or greater followed by a subsequent confirmatoryPSA value 0.2 ng/mL or greater.Values obtained with d ifferent assay methods or kits cannot be usedinterchangeably. Results cannot be interpreted as absolute evidenceof the presence or absence of malignant disease. :17 Bilirubin, Total/Direct, Serum Comments: PATIENT NOT FASTINGPERFORMED BY: [employer] Semi ConductorsCo Brazry6339 [facility] [id number] Bilirubin, Indirect 1.53 mg/dL (Abnormal) Range: 0.10-0.80 Bilirubin, Direct 0.37 mg/dL (Normal) Range: 0.00-0.40 Bilirubin, Total 1.9 mg/dL (Abnormal) Range: 0.0-1.2 :17 Prostate-Specific Ag, Serum Comments: PATIENT NOT FASTINGPERFORMED BY: [facility] Cbcmbc3791 [facility] [id number] Prostate Specific Ag, 11.5 ng/mL (Abnormal) Range: 0.0-4.0 Serum Comments: BergIA methodology. .According to the [place] [employer], Serum PSA shoulddecrease and remain at undetectable levels after radicalprostatectomy. The AUA defines biochemical recurrence as an initialPSA value 0.2 ng/mL or greater followed by a subsequent confirmatoryPSA value 0.2 ng/mL or greater.Values obtained with d ifferent assay methods or kits cannot be usedinterchangeably. Results cannot be interpreted as absolute evidenceof the presence or absence of malignant disease. :17 PSA Total+% Free Comments: PATIENT NOT FASTINGPERFORMED BY: [employer] Zfdvdb2522 [facility] [id number] % Free PSA 19.7 % (Normal) Comments: The table below lists the probability of prostate cancer formen with non-suspicious COLTEN results and total PSA between4 and 10 ng/mL, by patient age (Prashant et al, CHUY 1998,279:1542). % Free PSA 50-64 yr 65-75 yr 0.00-10.00% 56% 55% 10.01-15.00% 24% 35% 15.01-20.00% 17% 23% 20.01-25.00% 10% 20% >25.00% 5% 9%Please note: Prashant et al did not make specific recommendations regarding the use of percent free PSA for any other population of men. PSA, Free 2.27 ng/mL Comments: Temo ECLIA methodology. (Normal) Prostate Specific Ag, 11.5 ng/mL Range: 0.0-4.0 Serum (Abnormal) Comments: Temo ECLIA methodology. .According to the [place] [employer], Serum PSA shoulddecrease and remain at undetectable levels after radicalprostatectomy. The AUA defines biochemical recurrence as an initialPSA value 0.2 ng/mL or greater followed by a subsequent confirmatoryPSA value 0.2 ng/mL or greater.Values obtained with d ifferent assay methods or kits cannot be usedinterchangeably. Results cannot be interpreted as absolute evidenceof the presence or absence of malignant disease. Verbal Add-on SPRCS (Normal) Comments: PATIENT NOT FASTINGPERFORMED BY: Attune Liverp Xqaaoa9866 [place] [facility] [id number] :17 Comments: This report has been generated by your request for additional testing.The additional request may have required some testing to be repeated.Because of analytic variability, the results may not correspond exactly to the previous report. Interpret these results appropriately. Written Authorization WAR (Normal) Comments: PATIENT NOT FASTINGPERFORMED BY: [employer] [facility] Vusvqk7069 [place] NexantDublin [place] [id number] :17 Comments: Written Authorization Received.Authorization received from VICKI STYLES DO [id number] by Candi Salazar :01 Microscopic Examination Comments: PATIENT WAS FASTINGPERFORMED BY: CB [facility] Uphatq8287 [place] NexantDublin [place] [id number] Bacteria None seen (Normal) Mucus Threads Present (Normal) Epithelial Cells (non renal) None seen {/hpf} (Normal) Range: 0 - 10 RBC None seen {/hpf} (Normal) Range: 0 - 3 WBC 0-5 {/hpf} (Normal) Range: 0 - 5 :01 Vitamin D Hydroxy (67851) Comments: PATIENT WAS FASTINGPERFORMED BY: CB [facility] Lyltco0009 Madison RoadDublin [place] [id number] Vitamin D, 25-Hydroxy 17.2 ng/mL (Abnormal) Range: 30.0-100.0 Comments: Vitamin D deficiency has been defined by the [place] of[place]icine and an Endocrine Society practice guideline as alevel of serum 25-OH vitamin D less than 20 ng/mL (1,2).The Endocrine Society went on to further define vitamin Dinsufficiency as a level between 21 and 29 ng/mL (2).1. IOM ([place] of Medicine). 2010. Dietary reference intakes for calcium and D. [place]: The National Academies Press.2. Marcelle MF, Justin PURCELL, Amira ELIAS, et al. Evaluation, treatment, and prevention of vitamin D deficiency: an Endocrine Society clinical practice guideline. JCEM. 2010; 96(7):1911-30. :01 PSA (PROSTATE SPECIFIC Comments: PATIENT WAS FASTINGPERFORMED BY: ExtendCredit.comU[facility] [id number] ANTIGEN) (V76.44) Prostate Specific Ag, 7.6 ng/mL (Abnormal) Range: 0.0-4.0 Serum Comments: [email or web address] ECLIA methodology. .According to the [place] [employer], Serum PSA shoulddecrease and remain at undetectable levels after radicalprostatectomy. The AUA defines biochemical recurrence as an initialPSA value 0.2 ng/mL or greater followed by a subsequent confirmatoryPSA value 0.2 ng/mL or greater.Values obtained with d ifferent assay methods or kits cannot be usedinterchangeably. Results cannot be interpreted as absolute evidenceof the presence or absence of malignant disease. :01 TSH (52664) Comments: PATIENT WAS FASTINGPERFORMED BY: [employer]up Arts6370 [facility] [id number] TSH 2.530 {uIU/mL} (Normal) Range: 0.450-4.500 :01 URINALYSIS, W/ MICRO (59812) Comments: PATIENT WAS FASTINGPERFORMED BY: Xcelaero70 [facility] [id number] Microscopic Examination See below: (Normal) Microscopic Examination MICRON (Normal) Comments: Microscopic follows if indicated. Nitrite, Urine Negative (Normal) Urobilinogen,Semi-Qn 0.2 mg/dL (Normal) Range: 0.0-1.9 Bilirubin Negative (Normal) Occult Blood Negative (Normal) Ketones Negative (Normal) Glucose Negative (Normal) Protein Negative (Normal) WBC Esterase Negative (Normal) Appearance Clear (Normal) Urine-Color Yellow (Normal) pH 6.5 (Normal) Range: 5.0-7.5 Specific Twilight 1.015 (Normal) Range: 1.005-1.030 :01 MICROALBUMIN: CREATININE RATIO Comments: PATIENT WAS FASTINGPERFORMED BY: Attune Live Esthbg0938 [facility] [id number] (83555) AND (36498) Microalb/Creat Ratio 30.3 {mg/g_creat} (Abnormal) Range: 0.0-30.0 Microalbumin, Urine 33.5 ug/mL (Abnormal) Range: 0.0-17.0 Creatinine, Urine 110.7 mg/dL (Normal) Range: 22.0-328.0 : METABOLIC PANEL, COMPREHENSIVE Comments: PATIENT WAS FASTINGPERFORMED BY: [employer]6370 [facility] [id number] (80793) ALT (SGPT) 23 [iU]/L (Normal) Range: 0-55 AST (SGOT) 23 [iU]/L (Normal) Range: 0-40 Alkaline Phosphatase, S 72 [iU]/L (Normal) Range: 25-160 Bilirubin, Total 1.7 mg/dL (Abnormal) Range: 0.0-1.2 A/G Ratio 1.6 (Normal) Range: 1.1-2.5 Globulin, Total 2.5 g/dL (Normal) Range: 1.5-4.5 Albumin, Serum 4.1 g/dL (Normal) Range: 3.6-4.8 Protein, Total, Serum 6.6 g/dL (Normal) Range: 6.0-8.5 Calcium, Serum 8.9 mg/dL (Normal) Range: 8.6-10.2 Carbon Dioxide, Total 21 mmol/L (Normal) Range: 20-32 Chloride, Serum 104 mmol/L (Normal) Range: 97-108 Potassium, Serum 3.5 mmol/L (Normal) Range: 3.5-5.2 Sodium, Serum 143 mmol/L (Normal) Range: 134-144 BUN/Creatinine Ratio 12 (Normal) Range: 10-22 eGFR If Africn Am 92 mL/min/1.73 (Normal) Comments: Note: A persistent eGFR <60 mL/min/1.73 m2 (3 months or more) mayindicate chronic kidney disease. An eGFR >59 mL/min/1.73 m2 with anelevated urine protein also may indicate chronic kidney disease.Calculated using CKD-EPI formula. eGFR If NonAfricn Am 79 mL/min/1.73 (Normal) Creatinine, Serum 0.97 mg/dL (Normal) Range: 0.76-1.27 BUN 12 mg/dL (Normal) Range: 8-27 Glucose, Serum 133 mg/dL (Abnormal) Range: 65-99 :01 LIPID PANEL (43923) Comments: PATIENT WAS FASTINGPERFORMED BY: [facility] MagneticsI[facility] [id number] LDL/HDL Ratio 2.5 {ratio_units} (Normal) Range: 0.0-3.6 LDL Cholesterol Calc 103 mg/dL (Abnormal) Range: 0-99 VLDL Cholesterol Bharat 40 mg/dL (Normal) Range: 5-40 HDL Cholesterol 42 mg/dL (Normal) Comments: According to ATP-III Guidelines, HDL-C >59 mg/dL is considered anegative risk factor for CHD. Triglycerides 201 mg/dL (Abnormal) Range: 0-149 Cholesterol, Total 185 mg/dL (Normal) Range: 100-199 :01 CBC WITH MANUAL DIFF Comments: PATIENT WAS FASTINGPERFORMED BY: Xcelaero70 [facility] [id number] Information: [id number] (11327) Immature Grans (Abs) 0.0 {x10E3/uL} (Normal) Range: 0.0-0.1 Immature Granulocytes 0 % (Normal) Range: 0-2 Baso (Absolute) 0.0 {x10E3/uL} (Normal) Range: 0.0-0.2 Eos (Absolute) 0.2 {x10E3/uL} (Normal) Range: 0.0-0.4 Monocytes(Absolute) 0.8 {x10E3/uL} (Normal) Range: 0.1-1.0 Lymphs (Absolute) 1.7 {x10E3/uL} (Normal) Range: 0.7-4.5 Neutrophils (Absolute) 4.5 {x10E3/uL} (Normal) Range: 1.8-7.8 Basos 1 % (Normal) Range: 0-3 Eos 3 % (Normal) Range: 0-7 Monocytes 11 % (Normal) Range: 4-13 Lymphs 24 % (Normal) Range: 14-46 Neutrophils 61 % (Normal) Range: 40-74 Platelets 219 {x10E3/uL} (Normal) Range: 140-415 RDW 13.4 % (Normal) Range: 11.7-15.0 MCHC 34.9 g/dL (Normal) Range: 32.0-36.0 MCH 29.7 pg (Normal) Range: 27.0-34.0 MCV 85 fL (Normal) Range: 80-98 Hematocrit 47.6 % (Normal) Range: 36.0-50.0 Hemoglobin 16.6 g/dL (Normal) Range: 12.5-17.0 RBC 5.58 {x10E6/uL} (Normal) Range: 4.10-5.60 WBC 7.2 {x10E3/uL} (Normal) Range: 4.0-10.5 :24 HgA1C , Office (47633) HgA1C , Office 6.7 % (Normal) Range: 4.6 - 7.1 :24 Blood Glucose , Office (86634) Blood Glucose , Office 131 (Normal) :50 HgA1C , Office (90887) HgA1C , Office 6.3 % (Normal) Range: 4.6 - 7.1 :50 Blood Glucose , Office (85483) Blood Glucose , Office 116 (Normal) :05 HgA1C , Office (89662) HgA1C , Office 6.7 % (Normal) Range: 4.6 - 7.1 :58 URINALYSIS, W/ MICRO (42486) Comments: PATIENT WAS FASTINGPERFORMED BY: LabCoBristol-Myers Squibb Children's HospitalKepbfe0468 [facility] [id number] Microscopic Examination See below: (Normal) Microscopic Examination MICRON (Normal) Comments: Microscopic follows if indicated. Nitrite, Urine Negative (Normal) Urobilinogen,Semi-Qn 0.2 mg/dL (Normal) Range: 0.0-1.9 Bilirubin Negative (Normal) Occult Blood Negative (Normal) Ketones Negative (Normal) Glucose Negative (Normal) Protein Negative (Normal) WBC Esterase Negative (Normal) Appearance Clear (Normal) Urine-Color Yellow (Normal) pH 6.5 (Normal) Range: 5.0-7.5 Specific Twilight 1.015 (Normal) Range: 1.005-1.030 78-Lsr-506689:58 METABOLIC PANEL, COMPREHENSIVE Comments: PATIENT WAS FASTINGPERFORMED BY: [facility] Jnhydw6897 [facility] [id number] (65001) ALT (SGPT) 23 [iU]/L (Normal) Range: 0-55 AST (SGOT) 9 [iU]/L (Normal) Range: 0-40 Alkaline Phosphatase, S 67 [iU]/L (Normal) Range: 25-160 Bilirubin, Total 2.0 mg/dL (Abnormal) Range: 0.0-1.2 A/G Ratio 1.1 (Normal) Range: 1.1-2.5 Globulin, Total 3.2 g/dL (Normal) Range: 1.5-4.5 Albumin, Serum 3.4 g/dL (Abnormal) Range: 3.6-4.8 Protein, Total, Serum 6.6 g/dL (Normal) Range: 6.0-8.5 Calcium, Serum 9.1 mg/dL (Normal) Range: 8.6-10.2 Carbon Dioxide, Total 21 mmol/L (Normal) Range: 20-32 Chloride, Serum 103 mmol/L (Normal) Range: 97-108 Potassium, Serum 3.8 mmol/L (Normal) Range: 3.5-5.2 Sodium, Serum 140 mmol/L (Normal) Range: 134-144 BUN/Creatinine Ratio 12 (Normal) Range: 10-22 eGFR If Africn Am 83 mL/min/1.73 (Normal) eGFR If NonAfricn Am 72 mL/min/1.73 (Normal) Creatinine, Serum 1.05 mg/dL (Normal) Range: 0.76-1.27 BUN 13 mg/dL (Normal) Range: 8-27 Glucose, Serum 126 mg/dL (Abnormal) Range: 65-99 :58 CBC WITH MANUAL DIFF Comments: PATIENT WAS FASTINGPERFORMED BY: LabCoBristol-Myers Squibb Children's HospitalHommke8977 [facility] [id number] Information: [id number] (45165) Immature Grans (Abs) 0.0 {x10E3/uL} (Normal) Range: 0.0-0.1 Immature Granulocytes 0 % (Normal) Range: 0-2 Baso (Absolute) 0.0 {x10E3/uL} (Normal) Range: 0.0-0.2 Eos (Absolute) 0.2 {x10E3/uL} (Normal) Range: 0.0-0.4 Monocytes(Absolute) 0.9 {x10E3/uL} (Normal) Range: 0.1-1.0 Lymphs (Absolute) 2.1 {x10E3/uL} (Normal) Range: 0.7-4.5 Neutrophils (Absolute) 4.9 {x10E3/uL} (Normal) Range: 1.8-7.8 Basos 1 % (Normal) Range: 0-3 Eos 3 % (Normal) Range: 0-7 Monocytes 11 % (Normal) Range: 4-13 Lymphs 26 % (Normal) Range: 14-46 Neutrophils 59 % (Normal) Range: 40-74 Platelets 225 {x10E3/uL} (Normal) Range: 140-415 RDW 13.5 % (Normal) Range: 12.3-15.4 MCHC 34.0 g/dL (Normal) Range: 31.5-35.7 MCH 29.3 pg (Normal) Range: 26.6-33.0 MCV 86 fL (Normal) Range: 79-97 Hematocrit 48.0 % (Normal) Range: 37.5-51.0 Hemoglobin 16.3 g/dL (Normal) Range: 12.6-17.7 RBC 5.56 {x10E6/uL} (Normal) Range: 4.14-5.80 WBC 8.3 {x10E3/uL} (Normal) Range: 4.0-10.5 :58 LIPID PANEL (32436) Comments: PATIENT WAS FASTINGPERFORMED BY: [facility]6370 [facility] [id number] LDL/HDL Ratio 2.7 {ratio_units} (Normal) Range: 0.0-3.6 LDL Cholesterol Calc 116 mg/dL (Abnormal) Range: 0-99 VLDL Cholesterol Bharat 45 mg/dL (Abnormal) Range: 5-40 HDL Cholesterol 43 mg/dL (Normal) Comments: According to ATP-III Guidelines, HDL-C >59 mg/dL is considered anegative risk factor for CHD. Triglycerides 225 mg/dL (Abnormal) Range: 0-149 Cholesterol, Total 204 mg/dL (Abnormal) Range: 100-199 :58 MICROALBUMIN: CREATININE RATIO Comments: PATIENT WAS FASTINGPERFORMED BY: [place] 9137070 [facility] [id number] (21771) AND (28238) Microalb/Creat Ratio 16.0 {mg/g_creat} (Normal) Range: 0.0-30.0 Microalbumin, Urine 22.3 ug/mL (Abnormal) Range: 0.0-17.0 Creatinine, Urine 139.1 mg/dL (Normal) Range: 22.0-328.0 :58 TSH (10780) Comments: PATIENT WAS FASTINGPERFORMED BY: [facility]6370 [facility] [id number] TSH 3.200 {uIU/mL} (Normal) Range: 0.450-4.500 :44 TSH (62208) Comments: PATIENT WAS FASTINGPERFORMED BY: [facility]6370 [facility] [id number] TSH 2.540 {uIU/mL} (Normal) Range: 0.450-4.500 :44 MICROALBUMIN: CREATININE RATIO Comments: PATIENT WAS FASTINGPERFORMED BY: [place] 9137070 [facility] [id number] (18901) AND (84897) Microalb/Creat Ratio 22.8 {mg/g_creat} (Normal) Range: 0.0-30.0 Microalbumin, Urine 47.4 ug/mL (Abnormal) Range: 0.0-17.0 Creatinine, Urine 207.7 mg/dL (Normal) Range: 22.0-328.0 :44 CBC with manual diff Comments: PATIENT WAS FASTINGPERFORMED BY: LabCoBristol-Myers Squibb Children's HospitalZqtiry1470 [facility] [id number] Information: ADD [id number] AND DRAW FEE 99 6440 (61021) Immature Grans (Abs) 0.0 {x10E3/uL} (Normal) Range: 0.0-0.1 Immature Granulocytes 0 % (Normal) Range: 0-2 Comments: Please note reference interval change Baso (Absolute) 0.1 {x10E3/uL} (Normal) Range: 0.0-0.2 Eos (Absolute) 0.3 {x10E3/uL} (Normal) Range: 0.0-0.4 Monocytes(Absolute) 0.7 {x10E3/uL} (Normal) Range: 0.1-1.0 Lymphs (Absolute) 2.0 {x10E3/uL} (Normal) Range: 0.7-4.5 Neutrophils (Absolute) 3.9 {x10E3/uL} (Normal) Range: 1.8-7.8 Basos 1 % (Normal) Range: 0-3 Eos 4 % (Normal) Range: 0-7 Monocytes 10 % (Normal) Range: 4-13 Lymphs 28 % (Normal) Range: 14-46 Neutrophils 57 % (Normal) Range: 40-74 Platelets 266 {x10E3/uL} (Normal) Range: 140-415 RDW 13.3 % (Normal) Range: 11.7-15.0 MCHC 33.4 g/dL (Normal) Range: 32.0-36.0 MCH 29.3 pg (Normal) Range: 27.0-34.0 MCV 88 fL (Normal) Range: 80-98 Hematocrit 48.8 % (Normal) Range: 36.0-50.0 Hemoglobin 16.3 g/dL (Normal) Range: 12.5-17.0 RBC 5.56 {x10E6/uL} (Normal) Range: 4.10-5.60 WBC 6.9 {x10E3/uL} (Normal) Range: 4.0-10.5 :44 Metabolic Panel, Comprehensive Comments: PATIENT WAS FASTINGPERFORMED BY: [employer] Zerply [facility] [id number] (18750) ALT (SGPT) 22 [iU]/L (Normal) Range: 0-55 AST (SGOT) 19 [iU]/L (Normal) Range: 0-40 Alkaline Phosphatase, S 69 [iU]/L (Normal) Range: 25-160 Bilirubin, Total 1.9 mg/dL (Abnormal) Range: 0.0-1.2 A/G Ratio 1.6 (Normal) Range: 1.1-2.5 Globulin, Total 2.6 g/dL (Normal) Range: 1.5-4.5 Albumin, Serum 4.1 g/dL (Normal) Range: 3.6-4.8 Protein, Total, Serum 6.7 g/dL (Normal) Range: 6.0-8.5 Calcium, Serum 8.9 mg/dL (Normal) Range: 8.6-10.2 Carbon Dioxide, Total 24 mmol/L (Normal) Range: 20-32 Chloride, Serum 104 mmol/L (Normal) Range: 97-108 Potassium, Serum 3.5 mmol/L (Normal) Range: 3.5-5.2 Sodium, Serum 142 mmol/L (Normal) Range: 135-145 BUN/Creatinine Ratio 13 (Normal) Range: 10-22 eGFR If Africn Am 82 mL/min/1.73 (Normal) Comments: Note: A persistent eGFR <60 mL/min/1.73 m2 (3 months or more) mayindicate chronic kidney disease. An eGFR >59 mL/min/1.73 m2 with anelevated urine protein also may indicate chronic kidney disease.Calculated using CKD-EPI formula. eGFR If NonAfricn Am 71 mL/min/1.73 (Normal) Creatinine, Serum 1.07 mg/dL (Normal) Range: 0.76-1.27 BUN 14 mg/dL (Normal) Range: 8-27 Glucose, Serum 146 mg/dL (Abnormal) Range: 65-99 :44 Lipid Panel (92146) Comments: PATIENT WAS FASTINGPERFORMED BY: CodeshipArtesia General HospitalHtfdoa2102 [facility] [id number]; appt 11/26/10 LDL Cholesterol Calc 109 mg/dL (Abnormal) Range: 0-99 LDL/HDL Ratio 2.4 {ratio_units} (Normal) Range: 0.0-3.6 HDL Cholesterol 46 mg/dL (Normal) Comments: According to ATP-III Guidelines, HDL-C >59 mg/dL is considered anegative risk factor for CHD. VLDL Cholesterol Bharat 37 mg/dL (Normal) Range: 5-40 Triglycerides 183 mg/dL (Abnormal) Range: 0-149 Cholesterol, Total 192 mg/dL (Normal) Range: 100-199 44-Wuq-091699:56 Vitamin D Hydroxy Comments: PATIENT NOT FASTINGPERFORMED BY: [employer] Semi ConductorsAscension Borgess-Pipp Hospital6370 [facility] [id number] Information: [id number] (76883) Vitamin D, 25-Hydroxy 19.4 ng/mL (Abnormal) Range: 32.0-100.0 Comments: Recent studies consider the lower limit of 32.0 ng/mL to be athreshold for optimal health.Ashu JIMENEZ. J Nutr. 2004;135(2):317-22. :03 HEPATIC FUNCTION PANEL Comments: PATIENT WAS FASTINGPERFORMED BY: [facility] Semi ConductorsAscension Borgess-Pipp Hospital6370 [facility] [id number] Information: [id number] (49739) Alkaline Phosphatase, S 72 [iU]/L (Normal) Range: 25-160 ALT (SGPT) 24 [iU]/L (Normal) Range: 0-55 AST (SGOT) 21 [iU]/L (Normal) Range: 0-40 Bilirubin, Direct 0.38 mg/dL (Normal) Range: 0.00-0.40 Albumin, Serum 4.0 g/dL (Normal) Range: 3.6-4.8 Bilirubin, Total 1.6 mg/dL (Abnormal) Range: 0.0-1.2 Protein, Total, Serum 6.9 g/dL (Normal) Range: 6.0-8.5 :03 LIPID PANEL (99849) Comments: PATIENT WAS FASTINGPERFORMED BY: [facility]6370 [facility] [id number] LDL/HDL Ratio 1.7 {ratio_units} (Normal) Range: 0.0-3.6 LDL Cholesterol Calc 66 mg/dL (Normal) Range: 0-99 VLDL Cholesterol Bharat 36 mg/dL (Normal) Range: 5-40 Cholesterol, Total 141 mg/dL (Normal) Range: 100-199 HDL Cholesterol 39 mg/dL (Abnormal) Comments: According to ATP-III Guidelines, HDL-C >59 mg/dL is considered anegative risk factor for CHD. Triglycerides 179 mg/dL (Abnormal) Range: 0-149 83-Fkp-28775:55 CBC WITH MANUAL DIFF Comments: PATIENT NOT FASTINGPERFORMED BY: [facility] Wjhomj1166 [facility] [id number] Information: [id number] (51714) Immature Grans (Abs) 0.0 {x10E3/uL} (Normal) Range: 0.0-0.1 Immature Granulocytes 0 % (Normal) Range: 0-1 Baso (Absolute) 0.1 {x10E3/uL} (Normal) Range: 0.0-0.2 Eos (Absolute) 0.3 {x10E3/uL} (Normal) Range: 0.0-0.4 Monocytes(Absolute) 0.9 {x10E3/uL} (Normal) Range: 0.1-1.0 Lymphs (Absolute) 2.4 {x10E3/uL} (Normal) Range: 0.7-4.5 Neutrophils (Absolute) 5.2 {x10E3/uL} (Normal) Range: 1.8-7.8 Basos 1 % (Normal) Range: 0-3 Eos 4 % (Normal) Range: 0-7 Monocytes 10 % (Normal) Range: 4-13 Lymphs 27 % (Normal) Range: 14-46 Neutrophils 58 % (Normal) Range: 40-74 Platelets 227 {x10E3/uL} (Normal) Range: 140-415 RDW 14.0 % (Normal) Range: 11.7-15.0 MCH 30.4 pg (Normal) Range: 27.0-34.0 MCHC 34.6 g/dL (Normal) Range: 32.0-36.0 MCV 88 fL (Normal) Range: 80-98 Hematocrit 48.5 % (Normal) Range: 36.0-50.0 Hemoglobin 16.8 g/dL (Normal) Range: 12.5-17.0 RBC 5.52 {x10E6/uL} (Normal) Range: 4.10-5.60 WBC 9.0 {x10E3/uL} (Normal) Range: 4.0-10.5 :55 Magnesium (99150) Comments: PATIENT NOT FASTINGPERFORMED BY: [facility]NetworkD[facility] [id number] Magnesium, Serum 2.1 mg/dL (Normal) Range: 1.6-2.6 :55 Metabolic Panel, Basic (59371) Comments: PATIENT NOT FASTINGPERFORMED BY: [facility]NetworkD[facility] [id number] Calcium, Serum 9.3 mg/dL (Normal) Range: 8.6-10.2 Carbon Dioxide, Total 23 mmol/L (Normal) Range: 20-32 Chloride, Serum 102 mmol/L (Normal) Range: 97-108 Potassium, Serum 3.9 mmol/L (Normal) Range: 3.5-5.2 BUN/Creatinine Ratio 14 (Normal) Range: 10-22 eGFR >59 mL/min/1.73 (Normal) eGFR AfricanAmerican >59 mL/min/1.73 Comments: Note: Persistent reduction for 3 months or more in an eGFR<60 mL/min/1.73 m2 defines CKD. Patients with eGFR values>/=60 mL/min/1.73 m2 may also have CKD if evidence of persistentproteinuria is (Normal) present. Additional information may be found [email or web address]. Sodium, Serum 142 mmol/L (Normal) Range: 135-145 Creatinine, Serum 1.14 mg/dL (Normal) Range: 0.76-1.27 BUN 16 mg/dL (Normal) Range: 8-27 Glucose, Serum 115 mg/dL (Abnormal) Range: 65-99 :42 Microscopic Examination Comments: PATIENT WAS FASTINGPERFORMED BY: Xcelaero70 [facility] [id number] Bacteria None seen (Normal) Cast Type Hyaline casts (Normal) Casts Present {/lpf} (Abnormal) Epithelial Cells (non renal) 0-10 {/hpf} (Normal) Range: 0 - 10 Mucus Threads Present (Normal) RBC 0-3 {/hpf} (Normal) Range: 0 - 3 WBC 0-5 {/hpf} (Normal) Range: 0 - 5 :42 TSH (83066) Comments: PATIENT WAS FASTINGPERFORMED BY: [employer] Zerply [facility] [id number] TSH 3.120 {uIU/mL} (Normal) Range: 0.450-4.500 :42 URINALYSIS, W/ MICRO (43870) Comments: PATIENT WAS FASTINGPERFORMED BY: [employer] [facility] [id number] Microscopic Examination See below: (Normal) Bilirubin Negative (Normal) Glucose Negative (Normal) Ketones Negative (Normal) Nitrite, Urine Negative (Normal) Occult Blood Negative (Normal) Urobilinogen,Semi-Qn 0.2 mg/dL (Normal) Range: 0.0-1.9 Appearance Clear (Normal) pH 6.0 (Normal) Range: 5.0-7.5 Protein Negative (Normal) Urine-Color Yellow (Normal) WBC Esterase Trace (Abnormal) Specific Twilight 1.020 (Normal) Range: 1.005-1.030 :42 MICROALBUMIN: CREATININE RATIO Comments: PATIENT WAS FASTINGPERFORMED BY: [employer] [id number] [facility] [id number] ([id number]) AND ([id number]) Microalb/Creat Ratio 14.6 {mg/g_creat} (Normal) Range: 0.0-30.0 Microalbumin, Urine 26.0 ug/mL (Abnormal) Range: 0.0-17.0 Creatinine, Urine 178.3 mg/dL (Normal) Range: 22.0-328.0 :42 METABOLIC PANEL, COMPREHENSIVE Comments: PATIENT WAS FASTINGPERFORMED BY: [employer] [id number] [facility] [id number] ([id number]) Alkaline Phosphatase, S 68 [iU]/L (Normal) Range: 25-160 ALT (SGPT) 19 [iU]/L (Normal) Range: 0-55 AST (SGOT) 18 [iU]/L (Normal) Range: 0-40 A/G Ratio 1.6 (Normal) Range: 1.1-2.5 Bilirubin, Total 2.3 mg/dL (Abnormal) Range: 0.0-1.2 Globulin, Total 2.6 g/dL (Normal) Range: 1.5-4.5 Albumin, Serum 4.2 g/dL (Normal) Range: 3.6-4.8 Calcium, Serum 9.5 mg/dL (Normal) Range: 8.6-10.2 Carbon Dioxide, Total 27 mmol/L (Normal) Range: 20-32 Chloride, Serum 103 mmol/L (Normal) Range: 97-108 Protein, Total, Serum 6.8 g/dL (Normal) Range: 6.0-8.5 Potassium, Serum 3.4 mmol/L (Abnormal) Range: 3.5-5.2 Comments: Client Requested Flag Sodium, Serum 142 mmol/L (Normal) Range: 135-145 BUN/Creatinine Ratio 12 (Normal) Range: 10-22 eGFR AfricanAmerican >59 mL/min/1.73 Comments: Note: Persistent reduction for 3 months or more in an eGFR<60 mL/min/1.73 m2 defines CKD. Patients with eGFR values>/=60 mL/min/1.73 m2 may also have CKD if evidence of persistentproteinuria is (Normal) present. Additional information may be found [email or web address]. eGFR 55 mL/min/1.73 (Abnormal) Creatinine, Serum 1.30 mg/dL (Abnormal) Range: 0.76-1.27 BUN 16 mg/dL (Normal) Range: 8-27 Glucose, Serum 129 mg/dL (Abnormal) Range: 65-99 25-Doo-54202:42 LIPID PANEL ([id number]) Comments: PATIENT WAS FASTINGPERFORMED BY: [facility] Hpzsnm1695 [facility] [id number] LDL/HDL Ratio 2.5 {ratio_units} (Normal) Range: 0.0-3.6 LDL Cholesterol Calc 103 mg/dL (Abnormal) Range: 0-99 HDL Cholesterol 42 mg/dL (Normal) Comments: According to ATP-III Guidelines, HDL-C >59 mg/dL is considered anegative risk factor for CHD. Triglycerides 147 mg/dL (Normal) Range: 0-149 VLDL Cholesterol Bharat 29 mg/dL (Normal) Range: 5-40 Cholesterol, Total 174 mg/dL (Normal) Range: 100-199 17-Ojg-41889:42 CBC WITH MANUAL DIFF Comments: PATIENT WAS FASTINGPERFORMED BY: [facility]6370 [facility] [id number] Information: ADD [id number] AND DRAW FEE [id number] ([id number]) Immature Grans (Abs) 0.0 {x10E3/uL} (Normal) Range: 0.0-0.1 Baso (Absolute) 0.1 {x10E3/uL} (Normal) Range: 0.0-0.2 Eos (Absolute) 0.3 {x10E3/uL} (Normal) Range: 0.0-0.4 Immature Granulocytes 0 % (Normal) Range: 0-1 Monocytes(Absolute) 1.1 {x10E3/uL} (Abnormal) Range: 0.1-1.0 Lymphs (Absolute) 2.5 {x10E3/uL} (Normal) Range: 0.7-4.5 Neutrophils (Absolute) 5.3 {x10E3/uL} (Normal) Range: 1.8-7.8 Basos 1 % (Normal) Range: 0-3 Eos 3 % (Normal) Range: 0-7 Monocytes 12 % (Normal) Range: 4-13 Lymphs 27 % (Normal) Range: 14-46 MCHC 33.1 g/dL (Normal) Range: 32.0-36.0 Neutrophils 57 % (Normal) Range: 40-74 Platelets 273 {x10E3/uL} (Normal) Range: 140-415 RDW 14.1 % (Normal) Range: 11.7-15.0 Hematocrit 51.7 % (Abnormal) Range: 36.0-50.0 MCH 29.3 pg (Normal) Range: 27.0-34.0 MCV 89 fL (Normal) Range: 80-98 Hemoglobin 17.1 g/dL (Abnormal) Range: 12.5-17.0 RBC 5.84 {x10E6/uL} (Abnormal) Range: 4.10-5.60 WBC 9.2 {x10E3/uL} (Normal) Range: 4.0-10.5 :04 KNEE,4 OR MORE VIEWS (MT) Radiology See Note Comments: Exam Number: [id number] LINICAL:69-year-old man with pain in the left knee. X-RAY EXAMINATION LEFT KNEE TECHNIQUE:Four views of the knee. Weight-bearing. COMPARISON:None. FINDINGS:Normal visualized dista Report (Normal) l femur. Normal visualized proximal tibia. Normal visualized proximal fibula. Medial compartment moderate narrowing. Normal lateral femorotibial compartment. Normal patellofemoral articulation. Small ef fusion. Soft tissues are otherwise unremarkable. IMPRESSION:Moderate medial joint space narrowing. Small effusion may be present. ADDENDUM The study is 4 views, weight-bearing, of the left knee, not the right knee. The patient's symptoms are in the left knee. Reported By: KARMA MAN M.D. :32 LIPID HDL 36 mg/dL (Abnormal) Comments: Reference RangeHDL <40 mg/dL Low HDL CholesterolHDL >or= 60 mg/dL High HDL Cholesterol LDL 113 mg/dL (Normal) Range: 0-130 VLDL 45 mg/dL (Abnormal) Range: 5-40 TRIG 227 mg/dL (Abnormal) Comments: Serum Triglycerides Reference IntervalNormal <150 mg/dLBorderline high 150 - 199 mg/dLHigh 200 - 499 mg/ dLVery High > or = 500 mg/dL CHOL 194 mg/dL (Normal) Comments: <200 mg/dL Zkaxdnqcp316-057 mg/dL Borderline>240 mg/dL High Risk :32 PSA, SCREEN 6.3 ng/mL (Abnormal) Range: 0.0-4.0 :54 CBCD,SMEAR DIFF PLT EST SeeNote (Normal) Comments: Result: ADEQUATE RED CELL MORPH SeeNote {NORMAL} (Normal) Comments: Result: NORM C+C ABSOLUTE NEUT 4.4 3/uL (Normal) Range: 2.0-7.7 BAND 1 % (Normal) Range: 0-5 CELLS COUNTED 100 (Normal) EOS 7 % (Abnormal) Range: 0-5 HCT 45.9 % (Normal) Range: 40-54 HGB 15.4 g/dL (Normal) Range: 14.0-18.0 LYMPH 27 % (Normal) Range: 19-41 MCH 29.2 pg (Normal) Range: 27.0-32.0 MCHC 33.4 g/dL (Normal) Range: 32-36 MCV 87.3 fL (Normal) Range: 80-94 MONOCYTE 9 % (Normal) Range: 0-10 PLT 222 K/mm3 (Normal) Range: 150-450 RBC 5.26 {M/mm3} (Normal) Range: 4.6-6.2 RDW 12.9 % (Normal) Range: 11.6-14.6 SEGS 56 % (Normal) Range: 47-70 WBC 7.5 K/mm3 (Normal) Range: 4.4-11.0 :54 COMP METABOLIC A/G 0.9 {RATIO} (Normal) Range: 0.9-2.4 ALB 3.3 g/dL (Abnormal) Range: 3.4-5.0 ALK P 70 U/L (Normal) Range: 50-136 ALT 28 U/L (Normal) Range: 12-78 AST 13 U/L (Abnormal) Range: 15-37 CA 8.2 mg/dL (Abnormal) Range: 8.5-10.1 CL 106 mmol/L (Normal) Range: 98-107 CO2 25.0 mmol/L (Normal) Range: 21.0-32.0 GAP 9 (Normal) Range: 5-15 GLOB 3.7 g/dL (Normal) Range: 2.7-4.2 K 3.6 mmol/L (Normal) Range: 3.5-5.1 NA 140 mmol/L (Normal) Range: 136-145 T BILI 1.50 mg/dL (Abnormal) Range: 0.00-1.00 BUN 12 mg/dL (Normal) Range: 7-18 BUN/CRE 10.0 {RATIO} (Normal) Range: 10-20 CREAT,SERUM 1.2 mg/dL (Normal) Range: 0.8-1.3 EST GFR 64 mL/min (Normal) EST GFR - AA 78 mL/min (Normal) T PROT 7.0 g/dL (Normal) Range: 6.4-8.2 GLU 110 mg/dL (Normal) Range: 70-110 Comments: Fasting Glucose result from 110 to <126 mg/dLsuggests IMPAIRED HOMEOSTASIS per A.D.A. criteria. :54 LIPID HDL 35 mg/dL (Normal) Comments: Reference RangeHDL <40 mg/dL Low HDL CholesterolHDL >or= 60 mg/dL High HDL Cholesterol LDL 84 mg/dL (Normal) Range: 0-130 VLDL 38 mg/dL (Normal) Range: 5-40 TRIG 191 mg/dL (Normal) Comments: Serum Triglycerides Reference IntervalNormal <150 mg/dLBorderline high 150 - 199 mg/dLHigh 200 - 499 mg/ dLVery High > or = 500 mg/dL CHOL 157 mg/dL (Normal) Comments: <200 mg/dL Mxbmwawbm131-758 mg/dL Borderline>240 mg/dL High Risk :54 MICROALB:CRE UR MALB:CREAT 10.3 {mg/g_CRE} (Normal) MICROALBUMIN,UR 19.7 mg/L (Normal) UR CREAT 189.9 mg/dL (Normal) :54 TSH 2.03 {uIU/mL} (Normal) Range: 0.358-3.74 :57 WRIST,MIN 3 VIEWS Radiology Report See Note (Normal) Comments: Exam Number: [id number] LEFT HAND Three views of the left hand were obtained. There is good alignment. No acute abnormality is seen. LEFT WRIST Three views were obtained. There is good ali gnment. No significantabnormality is seen. Reported By: SHAHAB CARLOS :56 CHEST, PA AND LATERAL Radiology Report See Note (Normal) Comments: Exam Number: [id number] CHEST, PA AND LATERAL PA and lateral chest radiographs were obtained. Comparison is madewith the prior examination dated March 24, 2007. The patient is status-post midline amadou rnotomy and coronary arterybypass surgery. There is a mild degree of cardiomegaly. The lungs are clear. Thereis evidence of joint space narrowing with osteophyte formationthroughout the dorsal spine . IMPRESSION1. Cardiomegaly. 2. No acute infiltration. Reported By: SHAHAB CARLOS :56 HAND,MIN 3 VIEWS Radiology Report See Note (Normal) Comments: Exam Number: [id number] LEFT HAND Three views of the left hand were obtained. There is good alignment. No acute abnormality is seen. LEFT WRIST Three views were obtained. There is good ali gnment. No significantabnormality is seen. Reported By: SHAHAB CARLOS :41 BMP BUN 14 mg/dL (Normal) Range: 7-18 BUN/CRE 12.7 {RATIO} (Normal) Range: 10-20 CA 9.3 mg/dL (Normal) Range: 8.5-10.1 CL 103 mmol/L (Normal) Range: 98-107 CO2 28.0 mmol/L (Normal) Range: 21.0-32.0 CREAT,SERUM 1.1 mg/dL (Normal) Range: 0.8-1.3 EST GFR 71 mL/min (Normal) EST GFR - AA 86 mL/min (Normal) GAP 10 (Normal) Range: 5-15 GLU 125 mg/dL (Abnormal) Range: 70-110 Comments: Fasting Glucose result from 110 to <126 mg/dL suggests IMPAIRED HOMEOSTASIS per A.D.A. criteria. K 3.7 mmol/L (Normal) Range: 3.5-5.1 NA 141 mmol/L (Normal) Range: 136-145 71-Zym-121986:41 C-REACTIVE PROT 71.80 mg/L (Abnormal) Range: 0.0-3.0 Comments: C-Reactive Protein (CRP) provides useful information for thediagnosis, therapy and monitoring of inflammatory processesand associated diseases. For the evaluation of Relative Riskfor Cardiovascular Dise ase, a High Sensitivity CRP (HSCRP)should be ordered. :41 CBCD,SMEAR DIFF BAND 1 % (Normal) Range: 0-5 CELLS COUNTED 100 (Normal) EOS 4 % (Normal) Range: 0-5 HCT 50.1 % (Normal) Range: 40-54 HGB 16.5 g/dL (Normal) Range: 14.0-18.0 LYMPH 16 % (Abnormal) Range: 19-41 MCH 29.3 pg (Normal) Range: 27.0-32.0 MCHC 33.0 g/dL (Normal) Range: 32-36 MCV 88.8 fL (Normal) Range: 80-94 MONOCYTE 9 % (Normal) Range: 0-10 PLT 232 K/mm3 (Normal) Range: 150-450 PLT EST SeeNote (Normal) Comments: Result: ADEQUATE RBC 5.65 {M/mm3} (Normal) Range: 4.6-6.2 RDW 13.7 % (Normal) Range: 11.6-14.6 RED CELL MORPH SeeNote {NORMAL} (Normal) Comments: Result: NORM C+C SEGS 70 % (Normal) Range: 47-70 WBC 10.8 K/mm3 (Normal) Range: 4.4-11.0 :41 ESR SED RATE 7 mm/h (Normal) Range: 0-20 :41 URIC 8.8 mg/dL (Abnormal) Range: 3.5-7.2 :32 CBCD,SMEAR DIFF EOS 1 % (Normal) Range: 0-5 LYMPH 30 % (Normal) Range: 19-41 MONOCYTE 14 % (Abnormal) Range: 0-10 PLT EST SeeNote (Normal) Comments: Result: ADEQUATE RED CELL MORPH SeeNote {NORMAL} (Normal) Comments: Result: NORM C+C SEGS 55 % (Normal) Range: 47-70 CELLS COUNTED 100 (Normal) HCT 42.8 % (Normal) Range: 40-54 HGB 14.8 g/dL (Normal) Range: 14.0-18.0 MCH 29.5 pg (Normal) Range: 27.0-32.0 MCHC 34.6 g/dL (Normal) Range: 32-36 MCV 85.3 fL (Normal) Range: 80-94 PLT 229 K/mm3 (Normal) Range: 150-450 RBC 5.01 {M/mm3} (Normal) Range: 4.6-6.2 RDW 13.0 % (Normal) Range: 11.6-14.6 WBC 6.0 K/mm3 (Normal) Range: 4.4-11.0 :32 COMP METABOLIC A/G 1.0 {RATIO} (Normal) Range: 0.9-2.4 ALB 3.4 g/dL (Normal) Range: 3.4-5.0 ALK P 64 U/L (Normal) Range: 50-136 ALT 37 U/L (Normal) Range: 30-65 AST 20 U/L (Normal) Range: 15-37 BUN 15 mg/dL (Normal) Range: 7-18 BUN/CRE 12.5 {RATIO} (Normal) Range: 10-20 CA 8.7 mg/dL (Normal) Range: 8.5-10.1 CL 106 mmol/L (Normal) Range: 98-107 CO2 29.8 mmol/L (Normal) Range: 21.0-32.0 CREAT,SERUM 1.2 mg/dL (Normal) Range: 0.8-1.3 EST GFR 64 mL/min (Normal) EST GFR - AA 78 mL/min (Normal) GAP 6 (Normal) Range: 5-15 GLOB 3.3 g/dL (Normal) Range: 2.7-4.2 GLU 109 mg/dL (Normal) Range: 70-110 K 3.3 mmol/L (Abnormal) Range: 3.5-5.1 NA 142 mmol/L (Normal) Range: 136-145 T BILI 1.29 mg/dL (Abnormal) Range: 0.00-1.00 T PROT 6.7 g/dL (Normal) Range: 6.4-8.2 :32 MICROALB:CRE UR MALB:CREAT 7.8 {mg/g_CRE} (Normal) MICROALBUMIN,UR 12.0 mg/L (Normal) UR CREAT 153.1 mg/dL (Normal) :32 PSA,TOT SCREEN 9.85 ng/mL (Abnormal) Range: 0.00-4.00 Comments: This test was performed using the TPSA method for the[facility] chemistry system.Values obtained with different assay methods cannot be usedinterchangably.When changing PSA assays in the course of monito ring apatient, additional sequential testing should be carriedout to confirm baseline values. :32 TSH 1.81 {uIU/mL} (Normal) Range: 0.34-4.82 93-Wwu-894577:46 Vitamin D Hydroxy (70450) Comments: PATIENT NOT FASTINGClinical Information: ADD DRAW FEE [id number] ADD [id number] PERFORMED BY: [facility] [address] [id number] Vitamin D, 25-Hydroxy 56.3 ng/mL (Normal) Range: 32.0-100.0 Comments: Recent studies consider the lower limit of 32.0 ng/mL to be athreshold for optimal health.Ashu JIMENEZ. J Nutr. 2004;135(2):317-22. 90-Mvl-859006:46 VITAMIN D, 1, 25-DIHYDROXY Comments: PATIENT NOT FASTINGPERFORMED BY: better. [facility] [address] [id number] ([id number]) Vitamin D, 1,25 Dihydroxy 31.0 pg/mL (Normal) Range: 15.9-55.6 03-Dey-304132:28 CBCD,SMEAR DIFF Comments: GETS LIPID,LIVER,CBCMD,MICROAB.JOANNE VÁZQUEZ GETS CMP,PHOS,MG,VITD,CBC, BAND 1 % (Normal) Range: 0-5 CELLS COUNTED 100 (Normal) EOS 2 % (Normal) Range: 0-5 HCT 44.1 % (Normal) Range: 40-54 HGB 15.2 g/dL (Normal) Range: 14.0-18.0 LYMPH 33 % (Normal) Range: 19-41 MCH 30.0 pg (Normal) Range: 27.0-32.0 MCHC 34.5 g/dL (Normal) Range: 32-36 MCV 86.7 fL (Normal) Range: 80-94 MONOCYTE 11 % (Abnormal) Range: 0-10 PLT 247 K/mm3 (Normal) Range: 150-450 PLT EST SeeNote (Normal) Comments: Result: ADEQUATE RBC 5.08 {M/mm3} (Normal) Range: 4.6-6.2 RDW 12.8 % (Normal) Range: 11.6-14.6 RED CELL MORPH SeeNote {NORMAL} (Normal) Comments: Result: NORM C+C SEGS 53 % (Normal) Range: 47-70 WBC 7.3 K/mm3 (Normal) Range: 4.4-11.0 :28 COMP METABOLIC Comments: GETS LIPID,LIVER,CBCMD,MICROAB.JOANNE VÁZQUEZ GETS CMP,PHOS,MG,VITD,CBC, A/G 1.1 {RATIO} (Normal) Range: 0.9-2.4 ALB 3.7 g/dL (Normal) Range: 3.4-5.0 ALK P 62 U/L (Normal) Range: 50-136 ALT 40 U/L (Normal) Range: 30-65 AST 20 U/L (Normal) Range: 15-37 BUN 19 mg/dL (Abnormal) Range: 7-18 BUN/CRE 15.8 {RATIO} (Normal) Range: 10-20 CA 9.3 mg/dL (Normal) Range: 8.5-10.1 CL 102 mmol/L (Normal) Range: 98-107 CO2 29.8 mmol/L (Normal) Range: 21.0-32.0 CREAT,SERUM 1.2 mg/dL (Normal) Range: 0.8-1.3 GAP 9 (Normal) Range: 5-15 GLOB 3.5 g/dL (Normal) Range: 2.7-4.2 GLU 107 mg/dL (Normal) Range: 70-110 K 3.5 mmol/L (Normal) Range: 3.5-5.1 NA 141 mmol/L (Normal) Range: 136-145 T BILI 1.59 mg/dL (Abnormal) Range: 0.00-1.00 T PROT 7.2 g/dL (Normal) Range: 6.4-8.2 :28 D BILI 0.17 mg/dL (Normal) Comments: GETS LIPID,LIVER,CBCMD,MICROAB.JAZMIN VÁZQUEZ GETS CMP,PHOS,MG,VITD,CBC, Range: 0.00-0.30 :28 LIPID Comments: GETS LIPID,LIVER,CBCMD,MICROAB.JOANNE VÁZQUEZ GETS CMP,PHOS,MG,VITD,CBC, CHOL 158 mg/dL (Normal) Comments: <200 mg/dL Desirable 200-240 mg/dL Borderline >240 mg/dL High Risk HDL 35 mg/dL (Normal) Comments: Reference Range HDL <40 mg/dL Low HDL Cholesterol HDL >or= 60 mg/dL High HDL Cholesterol LDL 82 mg/dL (Normal) Range: 0-130 TRIG 204 mg/dL (Abnormal) Comments: Serum Triglycerides Reference Interval Normal <150 mg/dL Borderline high 150 - 199 mg/dL High 200 - 499 mg/dL Very High > or = 500 mg/dL VLDL 41 mg/dL (Abnormal) Range: 5-40 06-Gbz-821344:28 MG 1.7 mg/dL (Normal) Comments: GETS LIPID,LIVER,CBCMD,MICROAB.JOANNE VÁZQUEZ GETS CMP,PHOS,MG,VITD,CBC, Range: 1.5-2.2 69-Old-037044:28 MICROALBUMIN,UR 6.9 mg/L (Normal) Comments: GETS LIPID,LIVER,CBCMD,MICROAB.JOANNE VÁZQUEZ GETS CMP,PHOS,MG,VITD,CBC, 85-Hni-409654:28 PHOS 3.2 mg/dL (Normal) Comments: GETS LIPID,LIVER,CBCMD,MICROAB.JOANNE VÁZQUEZ GETS CMP,PHOS,MG,VITD,CBC, Range: 2.5-4.9 93-Lqi-142821:28 VIT D,25 33191 29.9 ng/mL (Abnormal) Comments: GETS LIPID,LIVER,CBCMD,MICROAB.JOANNE VÁZQUEZ GETS CMP,PHOS,MG,VITD,CBC, Range: 32.0-100.0 Comments: Recent studies consider the lower limit of 32.0 ng/mL to binta threshold for optimal health.Ashu JIMENEZ. J Nutr. 2004;135(2):317-22.Performed At: [facility] [place], [place] [id number] 05-Nzo-990481:57 VITAMIN D, 1, 25-DIHYDROXY Comments: PATIENT NOT FASTINGClinical Information: ADD DRAW FEE [id number] ADD J [id number] PERFORMED BY: [facility] [id number] ([id number]) Vitamin D, 1,25 Dihydroxy 38.4 pg/mL (Normal) Range: 15.9-55.6 98-Nos-232147:30 LIPID CHOL 176 mg/dL (Normal) Comments: <200 mg/dL Desirable 200-240 mg/dL Borderline >240 mg/dL High Risk HDL 34 mg/dL (Abnormal) Comments: Reference Range HDL <40 mg/dL Low HDL Cholesterol HDL >or= 60 mg/dL High HDL Cholesterol LDL 101 mg/dL (Normal) Range: 0-130 TRIG 207 mg/dL (Abnormal) Comments: Serum Triglycerides Reference Interval Normal <150 mg/dL Borderline high 150 - 199 mg/dL High 200 - 499 mg/dL Very High > or = 500 mg/dL VLDL 41 mg/dL (Abnormal) Range: 5-40 38-Amn-555741:30 LIVER ALB 3.7 g/dL (Normal) Range: 3.4-5.0 ALK P 57 U/L (Normal) Range: 50-136 ALT 41 U/L (Normal) Range: 30-65 AST 23 U/L (Normal) Range: 15-37 D BILI 0.16 mg/dL (Normal) Range: 0.00-0.30 T BILI 1.63 mg/dL (Abnormal) Range: 0.00-1.00 T PROT 6.9 g/dL (Normal) Range: 6.4-8.2 :46 CHEST, PA AND LATERAL Radiology Report See Note (Normal) Comments: Exam Number: [id number] PA AND LATERAL CHEST CLINICAL STATEMENTCough for 4 days. There is thickening of the pleural space along the right mid chestwall that is not visible on the previous portable of [employer]. There has been interval sternotomy and heart surgery.The overlying ribs show no lytic destruction. There is some inwardbowing of the lateral right 6th rib in the area. Most likely thi srelates to trauma or the surgery. Within the lungs the vasculature isnormal and no infiltrate is found. There is no pleural fluid in thesulci. Heart size is upper normal and stable from the previous study. IMPRESSIONPleural thickening along the lateral right chest wall is newsince 2003. Most likely this relates to interval trauma or heartsurgery, although extra pleural lesions such as lipoma or m yeloma in arib would not be excludable. Otherwise, no acute cardiopulmonaryabnormality is found. Reported By: RAMU CHRISTINE M.D. :52 LIPID Comments: PATIENT IS 10 HOURS FASTING CHOL 182 mg/dL (Normal) Comments: <200 mg/dL Desirable 200-240 mg/dL Borderline >240 mg/dL High Risk HDL 37 mg/dL (Normal) Comments: Reference Range HDL <40 mg/dL Low HDL Cholesterol HDL >or= 60 mg/dL High HDL Cholesterol LDL 110 mg/dL (Normal) Range: 0-130 TRIG 176 mg/dL (Normal) Comments: Serum Triglycerides Reference Interval Normal <150 mg/dL Borderline high 150 - 199 mg/dL High 200 - 499 mg/dL Very High > or = 500 mg/dL VLDL 35 mg/dL (Normal) Range: 5-40 :34 ALDOSTERON 4374 18.3 ng/dL (Abnormal) Comments: PLASMA ALDOSTERONE Range: 1.0-16.0 Comments: 0- 1 yr. 5.0 - 132.0 1- 3 yrs. 5.0 - 60.0 4- 7 yrs. 4.0 - 76.0 8-11 yrs. 3.0 - 28.0 12-16 yrs. 1.0 - 18.0 Adult ( Supine ) 1.0 - 16.0 Adult (Upright ) 4.0 - 31.0 :34 CBC HCT 46.2 % (Normal) Range: 40-54 HGB 15.9 g/dL (Normal) Range: 14.0-18.0 MCH 30.1 pg (Normal) Range: 27.0-32.0 MCHC 34.5 g/dL (Normal) Range: 32-36 MCV 87.3 fL (Normal) Range: 80-94 PLT 267 K/mm3 (Normal) Range: 150-450 RBC 5.29 {M/mm3} (Normal) Range: 4.6-6.2 RDW 13.3 % (Normal) Range: 11.6-14.6 WBC 6.8 K/mm3 (Normal) Range: 4.4-11.0 :34 COMP METABOLIC A/G 1.1 {RATIO} (Normal) Range: 0.9-2.4 ALB 3.7 g/dL (Normal) Range: 3.4-5.0 ALK P 71 U/L (Normal) Range: 50-136 ALT 38 [iU]/L (Normal) Range: 30-65 AST 18 U/L (Normal) Range: 15-37 BUN 17 mg/dL (Normal) Range: 7-18 BUN/CRE 15.5 {RATIO} (Normal) Range: 10-20 CA 8.6 mg/dL (Normal) Range: 8.5-10.1 CL 104 mmol/L (Normal) Range: 98-107 CO2 27.4 mmol/L (Normal) Range: 21.0-32.0 Comments: Please Note Reference Interval Change CREAT,SERUM 1.1 mg/dL (Normal) Range: 0.8-1.3 GAP 9 (Normal) Range: 5-15 GLOB 3.5 g/dL (Normal) Range: 2.7-4.2 Comments: Please Note Reference Interval Change GLU 100 mg/dL (Normal) Range: 70-110 K 3.7 mmol/L (Normal) Range: 3.5-5.1 NA 140 mmol/L (Normal) Range: 136-145 T BILI 1.22 mg/dL (Abnormal) Range: 0.00-1.00 T PROT 7.2 g/dL (Normal) Range: 6.4-8.2 :34 MICROALBUMIN,UR 14.3 mg/L (Normal) :34 PTH,[id number] Comments: PLASMA ALDOSTERONE PTH,Intact 63 pg/mL (Normal) Range: 12-65 Comments: Performed At: [address] [id number] At: [address] [id number] :34 RENIN,PL 2006 0.38 {ng/mL/hr} Comments: PLASMA ALDOSTERONE (Normal) Comments: Adult Normal Salt Intake: Upright 1.31 - 3.95 Supine 0.15 - 2. 33 . Salt Excretion (Na mEq/24 hr): Na= 0 - 30 8.82 - 23.86 Na= 30 - 75 4.09 - 7.73 Na= 75 - 150 1.44 - 2.80 Na= >150 0.39 - 1.31 :34 T3UP T3 UPTAKE 33 % (Normal) Range: 33-40 T7 (FTI) <TEST NOT PERFORMED> Range: 1.4-4.5 (Normal) :34 T4 FREE,DIRECT 1.5 ng/dL (Normal) Range: 0.89-1.76 :34 TSH 1.74 {uIU/mL} (Normal) Range: 0.34-4.82 :34 VIT D,25 73253 20.2 ng/mL (Abnormal) Comments: PLASMA ALDOSTERONE Range: 32.0-100.0 Comments: Recent studies consider the lower limit of 32.0 ng/mL to binta threshold for optimal health.Ashu JIMENEZ. J Nutr. 2004;135(2):317-22. 37-Hjc-50324:00 PROST BX P-PROSB (Normal) Comments: OPERATION Needle bx prostate PRE-OPERATIVE DIAGNOSIS Elevated PSA 5-7 POST-OPERATIVE DIAGNOSIS B-9 exam TISSUE SUBMITTED A- Right prostate, B- Left prostate MICROSCOPIC DIAGNOSIS A. Right prostate , core biopsy: Prostatic tissue, negative for malignancy in the available specimen. Focal chronic inflammation. B. Left prostate, core biopsy: Prostatic tissue, negative for malignancy in the avail able specimen. Focal acute and chronic inflammation. SJ:yanique 11/24/06 GROSS DESCRIPTION A - Received is one container designated right prostate. The specimen consists of four filamentous fragment s of light vázquez-white soft tissue. Each fragment has an average length of 2 cm and a maximal diameter of less than 0.1 cm. The specimen is totally submitted in two cassettes. B - Received is one con tainer designated left prostate. The specimen consists of four filamentous fragments of light vázquez-white soft tissue. Each fragment has an average length of 1.5 to 2 cm and a maximal diameter of le ss than 0.1 cm. The specimen is totally submitted in two cassettes. / RICCI:yanique 11/23/06 TC:3 REPORT SIGNED: TRINI DIAMOND 11/24/0623-Sep-200629-Jvr-157866:35 LIPID CHOL 135 mg/dL (Normal) Comments: <200 mg/dL Desirable 200-240 mg/dL Borderline >240 mg/dL High Risk HDL 33 mg/dL (Abnormal) Comments: Reference Range HDL <40 mg/dL Low HDL Cholesterol HDL >or= 60 mg/dL High HDL Cholesterol LDL 66 mg/dL (Normal) Range: 0-130 TRIG 180 mg/dL (Normal) Comments: Serum Triglycerides Reference Interval Normal <150 mg/dL Borderline high 150 - 199 mg/dL High 200 - 499 mg/dL Very High > or = 500 mg/dL VLDL 36 mg/dL (Normal) Range: 5-40 :35 LIVER ALB 3.5 g/dL (Normal) Range: 3.4-5.0 ALK P 65 U/L (Normal) Range: 50-136 ALT 40 [iU]/L (Normal) Range: 30-65 AST 25 U/L (Normal) Range: 15-37 D BILI 0.17 mg/dL (Normal) Range: 0.00-0.30 T BILI 1.83 mg/dL (Abnormal) Range: 0.00-1.00 T PROT 6.6 g/dL (Normal) Range: 6.4-8.2 :34 PSA, DIAGNOSTIC 5.3 ng/mL (Abnormal) Range: 0.0-4.0 Comments: This test was performed using the TPSA method for the[employer] chemistry system.Values obtained with different assay methods cannot be usedinterchangably.When changing PSA assays in the course of monito ring apatient, additionaly sequential testing should be carriedout to confirm baseline values. :54 BMP BUN 14 mg/dL (Normal) Range: 7-18 BUN/CRE 11.7 {RATIO} (Normal) Range: 10-20 CA 8.8 mg/dL (Normal) Range: 8.5-10.1 CL 101 mmol/L (Normal) Range: 98-107 CO2 26.2 mmol/L (Normal) Range: 22.0-29.0 CREAT,SERUM 1.2 mg/dL (Normal) Range: 0.8-1.3 GAP 10 (Normal) Range: 5-15 GLU 190 mg/dL (Abnormal) Range: 70-110 Comments: Fasting Glucose result greater than or equal to 126 mg/dL suggests DIABETES MELLITUS per A.D.A. criteria. K 3.5 mmol/L (Normal) Range: 3.5-5.1 NA 137 mmol/L (Normal) Range: 136-145 :14 PSA [id number] COMMENT Comment (Normal) Comments: The percent free PSA is performed on a reflex basis onlywhen the total PSA is between 4.0 and 10.0 ng/mL.Performed At: [address], [place] [id number] At: [facility] [place], [place] [id number] PSA, FREE 0.77 ng/mL (Normal) PSA, FREE % 17.5 % (Normal) Comments: The table below lists the probability of prostate cancer formen with non-suspicious COLTEN results and total PSA between4 and 10 ng/mL, by patient age (Prashant et al, CHUY 1998,[id number]). % Free PSA 50-64 yr 65-75 yr 0.00-10.00% 56% 55% 10.01-15.00% 24% 35% 15.01-20.00% 17% 23% 20.01-25.00% 10% 20% >25.00% 5% 9%Please note: Prashant et al did not make specific recommendations regarding the use of percent free PSA for any other population of men. PSA, TOTAL 4.4 ng/mL (Abnormal) Range: 0.0-4.0 Comments: [employer] (formerly [employer] [facility] methodology Plan of Care Name Dates Details Instructions Annual Medicare Physical WITH abnormal findings (Renamed from Encounter for general adult medical examination with abnormal findings) : fall reduction handout Indication: Annual Medicare Physical WITH abnormal findings (Renamed from Encounter for general adult medical examination with abnormal findings) Annual Medicare Physical WITH abnormal findings (Renamed from Encounter for general adult medical examination with abnormal findings) : elderly packet given Indication: Annual Medicare Physical WITH abnormal findings (Renamed from Encounter for general adult medical examination with abnormal findings) Annual Medicare Physical WITH abnormal findings (Renamed from Encounter for general adult medical examination with abnormal findings) : *Weight Loss Discussion Indication: Annual Medicare Physical WITH abnormal findings (Renamed from Encounter for general adult medical examination with abnormal findings) Annual Medicare Physical WITH abnormal findings (Renamed from Encounter for general adult medical examination with abnormal findings) : advance planning information Indication: Annual Medicare Physical WITH abnormal findings (Renamed from Encounter for general adult medical examination with abnormal findings) COPD, mild : Follow up in 6 weeks- repeat spiromettry Indication: COPD, 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 : HTN/CAD Red Flags Indication: 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 Elevated parathyroid hormone : Reviewed [employer]er Letter Indication: Elevated parathyroid hormone Elevated parathyroid hormone : Reviewed Diagnostic Tests Indication: Elevated parathyroid hormone 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, without long-term current use of insulin : Follow up in 3 months Indication: 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, without long- term current use of insulin 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 : Continue Current Prescription(s) Indication: 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 Coronary artery disease, occlusive : Reviewed [employer]er Letter Indication: Coronary artery disease, occlusive Coronary artery disease, occlusive : Continue Current Prescription(s) Indication: Coronary artery disease, occlusive Osteoarthritis of both knees, unspecified osteoarthritis type : Reviewed Lab Indication: Osteoarthritis of both knees, unspecified osteoarthritis type Osteoarthritis of both knees, unspecified osteoarthritis type : Reviewed Diagnostic Tests Indication: Osteoarthritis of both knees, unspecified osteoarthritis type Elevated parathyroid hormone : Reviewed Lab Indication: Elevated parathyroid hormone Parathyroid adenoma : Reviewed Diagnostic Tests Indication: Parathyroid adenoma Swollen joint : Reviewed Lab Indication: Swollen joint Hand pain, right : Reviewed Diagnostic Tests Indication: Hand pain, right Elevated parathyroid hormone : Reviewed Lab Indication: Elevated parathyroid hormone Mixed hyperlipidemia : Reviewed Lab Indication: Mixed hyperlipidemia Nonsmoker : Eprescribed prescriptions (G8553) Indication: Nonsmoker BPH associated with nocturia : Continue Current Prescription(s) Indication: BPH associated with nocturia Coronary artery disease, occlusive : Continue Current Prescription(s) Indication: Coronary artery disease, occlusive Coronary artery disease, occlusive : Reviewed [employer]er Letter Indication: Coronary artery disease, occlusive 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 : Continue Current Prescription(s) Indication: 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 : Diet, Exercise, and Wt loss Indication: 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 : HTN/CAD Red Flags Indication: 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 Mixed hyperlipidemia : Cholesterol mgmt Indication: Mixed hyperlipidemia Diabetes mellitus without complication (Renamed from Diabetes mellitus with no complication) : *Diabetes Education Indication: Diabetes mellitus without complication (Renamed from Diabetes mellitus with no complication) Diabetes mellitus without complication (Renamed from Diabetes mellitus with no complication) : Follow up in 3 months Indication: Diabetes mellitus without complication (Renamed from Diabetes mellitus with no complication) Diabetes mellitus without complication (Renamed from Diabetes mellitus with no complication) : Eprescribed prescriptions (G8553) Indication: Diabetes mellitus without complication (Renamed from Diabetes mellitus with no complication) Pain in both knees, unspecified chronicity : Reviewed Diagnostic Tests Indication: Pain in both knees, unspecified chronicity Pain in both knees, unspecified chronicity : Reviewed [employer]er Letter Indication: Pain in both knees, unspecified chronicity Annual Medicare Phyiscal WITHOUT abnormal findings (Renamed from Encounter for general adult medical examination without abnormal findings) : advance planning information Indication: Annual Medicare Phyiscal WITHOUT abnormal findings (Renamed from Encounter for general adult medical examination without abnormal findings) Annual Medicare Phyiscal WITHOUT abnormal findings (Renamed from Encounter for general adult medical examination without abnormal findings) : elderly packet given Indication: Annual Medicare Phyiscal WITHOUT abnormal findings (Renamed from Encounter for general adult medical examination without abnormal findings) Annual Medicare Phyiscal WITHOUT abnormal findings (Renamed from Encounter for general adult medical examination without abnormal findings) : fall reduction handout Indication: Annual Medicare Phyiscal WITHOUT abnormal findings (Renamed from Encounter for general adult medical examination without abnormal findings) Encounter for screening for malignant neoplasm of colon (Renamed from Special screening for malignant neoplasms, colon) : *Colon Cancer Screening Indication: Encounter for screening for malignant neoplasm of colon (Renamed from Special screening for malignant neoplasms, colon) 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, without long-term current use of insulin : Follow up in 3 months Indication: 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, without long- term current use of insulin Mixed hyperlipidemia : Cholesterol mgmt Indication: Mixed hyperlipidemia Coronary artery disease, occlusive : Reviewed [employer]er Letter Indication: Coronary artery disease, occlusive 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 : Diet, Exercise, and Wt loss Indication: 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 : HTN/CAD Red Flags Indication: 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, without long-term current use of insulin : Eprescribed prescriptions (G8553) Indication: 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, without long- term current use of insulin Coronary artery disease, occlusive : Reviewed [employer]er Letter Indication: Coronary artery disease, occlusive 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 : HTN/CAD Red Flags Indication: 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 Mixed hyperlipidemia : Cholesterol mgmt Indication: Mixed hyperlipidemia 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, without long-term current use of insulin : Follow up in 3 months Indication: 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, without long- term current use of insulin 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, without long-term current use of insulin : Eprescribed prescriptions (G8553) Indication: 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, without long- term current use of insulin 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, without long-term current use of insulin : Diabetes and Exercise: Preventing Low Blood Sugar: blood sugar Indication: 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, without long- term current use of insulin COPD, mild : Follow up in 1 month Indication: COPD, mild 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, without long-term current use of insulin : Follow up in 3 months Indication: 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, without long- term current use of insulin Mixed hyperlipidemia : Cholesterol mgmt Indication: Mixed hyperlipidemia 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 : Diet, Exercise, and Wt loss Indication: 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 : HTN/CAD Red Flags Indication: 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 Coronary artery disease, occlusive : Reviewed [employer]er Letter Indication: Coronary artery disease, occlusive 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, without long-term current use of insulin : Diet, Exercise, and Wt loss Indication: 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, without long- term current use of insulin 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, without long-term current use of insulin : *Diabetes Education Indication: 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, without long- term current use of insulin 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, without long-term current use of insulin : Reviewed Lab Indication: 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, without long- term current use of insulin Atrial fibrillation, unspecified type : Reviewed [employer]er Letter Indication: Atrial fibrillation, unspecified type Nonsmoker : Eprescribed prescriptions (G8553) Indication: Nonsmoker Acute on chronic diastolic congestive heart failure : Eprescribed prescriptions (G8553) Indication: Acute on chronic diastolic congestive heart failure Acute on chronic diastolic congestive heart failure : Reviewed Lab Indication: Acute on chronic diastolic congestive heart failure Acute on chronic diastolic congestive heart failure : Reviewed Diagnostic Tests Indication: Acute on chronic diastolic congestive heart failure Acute on chronic diastolic congestive heart failure : Reviewed [employer]er Letter Indication: Acute on chronic diastolic congestive heart failure Fluid overload : Reviewed Lab Indication: Fluid overload Fluid overload : Reviewed Diagnostic Tests Indication: Fluid overload Atrial fibrillation, unspecified type : Reviewed [employer]er Letter Indication: Atrial fibrillation, unspecified type Hypertensive heart disease : Continue Current Prescription(s) Indication: Hypertensive heart disease Diabetes mellitus type 2, uncontrolled, without complications : Diabetes and Exercise: Preventing Low Blood Sugar: blood sugar Indication: Diabetes mellitus type 2, uncontrolled, without complications Encounter for Medicare annual wellness exam : fall reduction handout Indication: Encounter for Medicare annual wellness exam Encounter for Medicare annual wellness exam : elderly packet given Indication: Encounter for Medicare annual wellness exam Encounter for Medicare annual wellness exam : advance planning information Indication: Encounter for Medicare annual wellness exam Encounter for screening for malignant neoplasm of colon (Renamed from Special screening for malignant neoplasms, colon) : *Colon Cancer Screening Indication: Encounter for screening for malignant neoplasm of colon (Renamed from Special screening for malignant neoplasms, colon) Hypertension with renal disease : BP MONITORING - SELF Indication: Hypertension with renal disease Hypertension with renal disease : Continue Current Prescription(s) Indication: Hypertension with renal disease Atrial fibrillation, unspecified type : Eprescribed prescriptions (G8553) Indication: Atrial fibrillation, unspecified type Atrial fibrillation, unspecified type : Follow up in 2 days Indication: Atrial fibrillation, unspecified type Irregular heart beat : Eprescribed prescriptions (G8553) Indication: Irregular heart beat AK (actinic keratosis) : Cryotherapy Indication: AK (actinic keratosis) Hypertension with renal disease : Continue Current Prescription(s) Indication: Hypertension with renal disease Hypertension with renal disease : Eprescribed prescriptions (G8553) Indication: Hypertension with renal disease Hypertension with renal disease : Follow up in 2-3 weeks- gen med visit Indication: Hypertension with renal disease Hypertension with renal disease : Continue Current Prescription(s) Indication: Hypertension with renal disease Hypertension with renal disease : HTN/CAD Red Flags Indication: Hypertension with renal disease Chronic kidney disease, stage 3 : Eprescribed prescriptions (G8553) Indication: Chronic kidney disease, stage 3 Chronic kidney disease, stage 3 : Eprescribed prescriptions (G8553) Indication: Chronic kidney disease, stage 3 Acute on chronic systolic heart failure : Follow up in 4 weeks- general medical Indication: Acute on chronic systolic heart failure Acute on chronic systolic heart failure : Reviewed Lab Indication: Acute on chronic systolic heart failure Acute on chronic systolic heart failure : Reviewed Diagnostic Tests Indication: Acute on chronic systolic heart failure Acute on chronic systolic heart failure : Reviewed [employer]er Letter Indication: Acute on chronic systolic heart failure Bilateral edema of lower extremity : Reviewed Lab Indication: Bilateral edema of lower extremity Acute on chronic systolic heart failure : Reviewed [employer]er Letter Indication: Acute on chronic systolic heart failure Renal insufficiency : Follow up in 1 week- one day after lab draw Indication: Renal insufficiency Renal insufficiency : Lymphedema: swelling Indication: Renal insufficiency Renal insufficiency : Eprescribed prescriptions (G8553) Indication: Renal insufficiency Bilateral edema of lower extremity : Follow up wednesday of next week Indication: Bilateral edema of lower extremity Short of breath on exertion : Follow up in 1 week- fu on lab and wt and sob Indication: Short of breath on exertion Therapeutic drug monitoring : Reviewed Lab Indication: Therapeutic drug monitoring Short of breath on exertion : Follow up next - yessenia Indication: Short of breath on exertion Coronary atherosclerosis of [place]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 : Reviewed [employer]er Letter Indication: Coronary atherosclerosis of [place]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 Coronary atherosclerosis of [place]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 : Reviewed Diagnostic Tests Indication: Coronary atherosclerosis of [place]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 Acute systolic congestive heart failure : Follow up in 3 weeks- fu on chf and edema and std process Indication: Acute systolic congestive heart failure Bilateral edema of lower extremity : Follow up in wednesday - quick yessenia Indication: Bilateral edema of lower extremity Coronary atherosclerosis of [place]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 : Eprescribed prescriptions (G8553) Indication: Coronary atherosclerosis of [place]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 Acute systolic congestive heart failure : Reviewed Diagnostic Tests Indication: Acute systolic congestive heart failure Acute systolic congestive heart failure : Continue Current Prescription(s) Indication: Acute systolic congestive heart failure Acute systolic congestive heart failure : Reviewed [employer]er Letter Indication: Acute systolic congestive heart failure Shortness of breath on exertion : Follow up wednesday for yessenia on lower extrem edema- and sob & lab Indication: Shortness of breath on exertion Atherosclerosis of [place] coronary artery without angina pectoris, unspecified whether [place] or transplanted heart : Reviewed [employer]er Letter Indication: Atherosclerosis of [place] coronary artery without angina pectoris, unspecified whether [place] or transplanted heart Mixed hyperlipidemia : Cholesterol mgmt Indication: Mixed hyperlipidemia Diabetes mellitus type 2, uncontrolled, without complications : Follow up in 3 months- gen med Indication: Diabetes mellitus type 2, uncontrolled, without complications Hypertension with renal disease : Diet, Exercise, and Wt loss Indication: Hypertension with renal disease Hypertension with renal disease : HTN/CAD Red Flags Indication: Hypertension with renal disease Diabetes mellitus type 2, uncontrolled, without complications : Eprescribed prescriptions (G8553) Indication: Diabetes mellitus type 2, uncontrolled, without complications Diabetes mellitus type 2, uncontrolled, without complications : Diabetes and Exercise: Preventing Low Blood Sugar: blood sugar Indication: Diabetes mellitus type 2, uncontrolled, without complications Hypoxia : Reviewed Diagnostic Tests Indication: Hypoxia Chronic obstructive pulmonary disease : Continue Current Prescription(s) Indication: Chronic obstructive pulmonary disease 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 : Follow up in 2 weeks 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 : HTN/CAD Red Flags 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 Hyperlipidemia : Cholesterol mgmt Indication: Hyperlipidemia Coronary atherosclerosis of [place]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 : Reviewed [employer]er Letter Indication: Coronary atherosclerosis of [place]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 Diabetes mellitus type 2, uncontrolled, without complications : Eprescribed prescriptions (G8553) Indication: Diabetes mellitus type 2, uncontrolled, without complications Diabetes mellitus type 2, uncontrolled, without complications : Diabetes and Exercise: Preventing Low Blood Sugar: blood sugar Indication: Diabetes mellitus type 2, uncontrolled, without complications Encounter for Medicare annual wellness exam : *Colon Cancer Screening Indication: Encounter for Medicare annual wellness exam Encounter for Medicare annual wellness exam : *Weight Loss Discussion Indication: Encounter for Medicare annual wellness exam Encounter for Medicare annual wellness exam : fall reduction handout Indication: Encounter for Medicare annual wellness exam Encounter for Medicare annual wellness exam : elderly packet given Indication: Encounter for Medicare annual wellness exam Encounter for Medicare annual wellness exam : advance planning information Indication: Encounter for Medicare annual wellness exam Encounter for Medicare annual wellness exam : Eprescribed prescriptions (G8553) Indication: Encounter for Medicare annual wellness exam Elevated PSA : Reviewed [employer]er Letter: milagro neal Indication: Elevated PSA 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 : Continue Current Prescription(s) 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 Coronary atherosclerosis of [place]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 : Reviewed Lab Indication: Coronary atherosclerosis of [place]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 Hyperlipidemia : Cholesterol mgmt Indication: Hyperlipidemia 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 : HTN/CAD Red Flags 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 Diabetes mellitus without complication (Renamed from Diabetes mellitus with no complication) : Follow up in 3 months Indication: Diabetes mellitus without complication (Renamed from Diabetes mellitus with no complication) Diabetes mellitus without complication (Renamed from Diabetes mellitus with no complication) : Diabetes and Exercise: Preventing Low Blood Sugar: blood sugar Indication: Diabetes mellitus without complication (Renamed from Diabetes mellitus with no complication) Diabetes mellitus without complication (Renamed from Diabetes mellitus with no complication) : Follow up in 3 months Indication: Diabetes mellitus without complication (Renamed from Diabetes mellitus with no complication) Hyperlipidemia : Cholesterol mgmt Indication: Hyperlipidemia 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 : Continue Current Prescription(s) 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 : HTN/CAD Red Flags 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 Coronary atherosclerosis of [place]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 : Reviewed [employer]er Letter Indication: Coronary atherosclerosis of [place]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 Diabetes mellitus without complication (Renamed from Diabetes mellitus with no complication) : Diabetes Mellitus: Type 2 *: diabetes type 2 Indication: Diabetes mellitus without complication (Renamed from Diabetes mellitus with no complication) CVA (cerebral infarction) : Reviewed [employer]er Letter: neuro wants to do a brain cath Indication: CVA (cerebral infarction) 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 : HTN/CAD Red Flags 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 Abnormal brain MRI : Follow up in 4 weeks: general med plus bl pressure ck and consulttant rev Indication: Abnormal brain MRI Abnormal brain MRI : Reviewed Diagnostic Tests Indication: Abnormal brain MRI Abnormal brain MRI : Reviewed [employer]er Letter Indication: Abnormal brain MRI 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 : HTN/CAD Red Flags 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 Encounter for routine history and physical exam for male : *Colon Cancer Screening Indication: Encounter for routine history and physical exam for male Encounter for routine history and physical exam for male : fall reduction handout Indication: Encounter for routine history and physical exam for male Encounter for routine history and physical exam for male : elderly packet given Indication: Encounter for routine history and physical exam for male Encounter for routine history and physical exam for male : advance planning information Indication: Encounter for routine history and physical exam for male Encounter for routine history and physical exam for male : *Weight Loss Discussion Indication: Encounter for routine history and physical exam for male Vitamin D deficiency, unspecified : Continue Current Prescription(s) Indication: Vitamin D deficiency, unspecified Coronary atherosclerosis of [place]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 : Reviewed [employer]er Letter Indication: Coronary atherosclerosis of [place]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 Hyperlipidemia : Cholesterol mgmt Indication: Hyperlipidemia 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 : HTN/CAD Red Flags 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 Diabetes mellitus without complication (Renamed from Diabetes mellitus with no complication) : Follow up in 3 months Indication: Diabetes mellitus without complication (Renamed from Diabetes mellitus with no complication) Diabetes mellitus without complication (Renamed from Diabetes mellitus with no complication) : Diabetes Overview (Living with Diabetes): diabetes mellitus Indication: Diabetes mellitus without complication (Renamed from Diabetes mellitus with no complication) Coronary atherosclerosis of [place]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 : Reviewed [employer]er Letter Indication: Coronary atherosclerosis of [place]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 Diabetes mellitus type 2, uncontrolled, without complications : Follow up in 3 months Indication: Diabetes mellitus type 2, uncontrolled, without complications Hyperlipidemia : Cholesterol mgmt Indication: Hyperlipidemia Diabetes mellitus type 2, uncontrolled, without complications : Follow up in 3 months gen med and combine with medicare physical Indication: Diabetes mellitus type 2, uncontrolled, without complications 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 : Diet, Exercise, and Wt loss 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 : HTN/CAD Red Flags 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 Diabetes mellitus type 2, uncontrolled, without complications : Diet, Exercise, and Wt loss Indication: Diabetes mellitus type 2, uncontrolled, without complications Diabetes mellitus type 2, uncontrolled, without complications : *Diabetes Education Indication: Diabetes mellitus type 2, uncontrolled, without complications Diabetes mellitus without complication (Renamed from Diabetes mellitus with no complication) : Follow up in 3 months Indication: Diabetes mellitus without complication (Renamed from Diabetes mellitus with no complication) Coronary atherosclerosis of [place]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 : Reviewed Rail Signal [employer]er Letter Indication: Coronary atherosclerosis of [place]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 : HTN/CAD Red Flags 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 Mixed hyperlipidemia : *Cholesterol - Nonprescription Treatment Indication: Mixed hyperlipidemia Mixed hyperlipidemia : Cholesterol mgmt Indication: Mixed hyperlipidemia Diabetes mellitus without complication (Renamed from Diabetes mellitus with no complication) : Diabetes Mellitus: Type 1 *: diabetes Indication: Diabetes mellitus without complication (Renamed from Diabetes mellitus with no complication) Diabetes mellitus type 2, uncontrolled, without complications : Follow up in 3 months Indication: Diabetes mellitus type 2, uncontrolled, without complications Coronary atherosclerosis of [place]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 : Reviewed Rail Signal Designer Letter Indication: Coronary atherosclerosis of [place]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 Hyperlipidemia : Cholesterol mgmt Indication: Hyperlipidemia Hypertension with renal disease : High Blood Pressure (Essential Hypertension) *: blood pressure problems Indication: Hypertension with renal disease Diabetes mellitus without complication (Renamed from Diabetes mellitus with no complication) : Follow up in 3 months Indication: Diabetes mellitus without complication (Renamed from Diabetes mellitus with no complication) Hyperlipidemia : Reviewed Lab Indication: Hyperlipidemia Hypertensive heart disease : Continue Current Prescription(s) Indication: Hypertensive heart disease Diabetes mellitus without complication (Renamed from Diabetes mellitus with no complication) : Diet, Exercise, and Wt loss Indication: Diabetes mellitus without complication (Renamed from Diabetes mellitus with no complication) Diabetes mellitus without complication (Renamed from Diabetes mellitus with no complication) : *Diabetes Education Indication: Diabetes mellitus without complication (Renamed from Diabetes mellitus with no complication) Hypertensive heart disease : HTN/CAD Red Flags Indication: Hypertensive heart disease Hyperlipidemia : *Cholesterol - Nonprescription Treatment Indication: Hyperlipidemia Hyperlipidemia : Cholesterol mgmt Indication: Hyperlipidemia Diabetes mellitus without complication (Renamed from Diabetes mellitus with no complication) : Diabetes Overview (Living with Diabetes): high blood sugar Indication: Diabetes mellitus without complication (Renamed from Diabetes mellitus with no complication) Hypertensive heart disease : High Blood Pressure (Essential Hypertension) *: blood Indication: Hypertensive heart disease Hypertension with renal disease : Follow up in 3 weeks Indication: Hypertension with renal disease Elevated PSA : Reviewed Lab Indication: Elevated PSA Hypertension with renal disease : Follow up in 1 month Indication: Hypertension with renal disease Hypertension with renal disease : BP MONITORING - SELF Indication: Hypertension with renal disease Elevated PSA : Reviewed [employer]er Letter Indication: Elevated PSA Vitamin D deficiency, unspecified : *ERGOCALCIFEROL DOSAGE PER [place] Indication: Vitamin D deficiency, unspecified Hypertension with renal disease : Continue Current Prescription(s) Indication: Hypertension with renal disease Diabetes mellitus without complication (Renamed from Diabetes mellitus with no complication) : Follow up in 3 months Indication: Diabetes mellitus without complication (Renamed from Diabetes mellitus with no complication) Mixed hyperlipidemia : *Cholesterol - Nonprescription Treatment Indication: Mixed hyperlipidemia Mixed hyperlipidemia : Cholesterol mgmt Indication: Mixed hyperlipidemia Coronary atherosclerosis of [place]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 : Reviewed Rail Signal [employer]er Letter Indication: Coronary atherosclerosis of [place]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 Hypertensive heart disease : Diet, Exercise, and Wt loss Indication: Hypertensive heart disease Hypertensive heart disease : HTN/CAD Red Flags Indication: Hypertensive heart disease Diabetes mellitus without complication (Renamed from Diabetes mellitus with no complication) : Diet, Exercise, and Wt loss Indication: Diabetes mellitus without complication (Renamed from Diabetes mellitus with no complication) Diabetes mellitus without complication (Renamed from Diabetes mellitus with no complication) : *Diabetes Education Indication: Diabetes mellitus without complication (Renamed from Diabetes mellitus with no complication) Diabetes mellitus without complication (Renamed from Diabetes mellitus with no complication) : Follow up in 3 months Indication: Diabetes mellitus without complication (Renamed from Diabetes mellitus with no complication) Mixed hyperlipidemia : *Cholesterol - Nonprescription Treatment Indication: Mixed hyperlipidemia Mixed hyperlipidemia : Cholesterol mgmt Indication: Mixed hyperlipidemia Coronary atherosclerosis of [place]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 : Reviewed [employer] Signal [employer]er Letter Indication: Coronary atherosclerosis of [place]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 Hypertensive heart disease : HTN/CAD Red Flags Indication: Hypertensive heart disease Hypertensive heart disease : Diet, Exercise, and Wt loss Indication: Hypertensive heart disease Diabetes mellitus without complication (Renamed from Diabetes mellitus with no complication) : Diet, Exercise, and Wt loss Indication: Diabetes mellitus without complication (Renamed from Diabetes mellitus with no complication) Diabetes mellitus without complication (Renamed from Diabetes mellitus with no complication) : *Diabetes Education Indication: Diabetes mellitus without complication (Renamed from Diabetes mellitus with no complication) Diabetes mellitus without complication (Renamed from Diabetes mellitus with no complication) : Follow up in 3 months Indication: Diabetes mellitus without complication (Renamed from Diabetes mellitus with no complication) Actinic keratosis : Cryotherapy Indication: Actinic keratosis Hypertensive heart disease : Follow up in 4 months Indication: Hypertensive heart disease Obesity, morbid : Diet, Exercise, and Wt loss Indication: Obesity, morbid Hypertensive heart disease : Diet, Exercise, and Wt loss Indication: Hypertensive heart disease Hypertensive heart disease : HTN/CAD Red Flags Indication: Hypertensive heart disease Hypertensive heart disease : Reviewed Lab Indication: Hypertensive heart disease Mixed hyperlipidemia : *Cholesterol - Nonprescription Treatment Indication: Mixed hyperlipidemia Mixed hyperlipidemia : Cholesterol mgmt Indication: Mixed hyperlipidemia Mixed hyperlipidemia : Reviewed Lab Indication: Mixed hyperlipidemia Mixed hyperlipidemia : FOLLOW UP IN 4 MONTHS Indication: Mixed hyperlipidemia Obesity, morbid : Diet, Exercise, and Wt loss Indication: Obesity, morbid Atherosclerosis of [place] coronary artery without angina pectoris, unspecified whether [place] or transplanted heart : Reviewed [employer]er Letter Indication: Atherosclerosis of [place] coronary artery without angina pectoris, unspecified whether [place] or transplanted heart Hypertensive heart disease : HTN/CAD Red Flags Indication: Hypertensive heart disease Hypertensive heart disease : Diet, Exercise, and Wt loss Indication: Hypertensive heart disease Mixed hyperlipidemia : *Cholesterol - Medication Side Effects Indication: Mixed hyperlipidemia Mixed hyperlipidemia : *Cholesterol - Nonprescription Treatment Indication: Mixed hyperlipidemia Mixed hyperlipidemia : CHOLESTEROL MGMT. Indication: Mixed hyperlipidemia Hypertensive heart disease : HTN/CAD Red Flags Indication: Hypertensive heart disease Mixed hyperlipidemia : CHOLESTEROL MGMT. Indication: Mixed hyperlipidemia Mixed hyperlipidemia : *Cholesterol - Nonprescription Treatment Indication: Mixed hyperlipidemia Hypertensive heart disease : Reviewed Lab Indication: Hypertensive heart disease Hypertensive heart disease : FOLLOW UP IN 6 MONTHS Indication: Hypertensive heart disease Hypertensive heart disease : FOLLOW UP IN 3 WEEKS Indication: Hypertensive heart disease Hypertensive heart disease : BP MONITORING - SELF Indication: Hypertensive heart disease Hyperlipidemia : *Cholesterol - Nonprescription Treatment Indication: Hyperlipidemia Hyperlipidemia : CHOLESTEROL MGMT. Indication: Hyperlipidemia Hypertensive heart disease : Diet, Exercise, and Wt loss Indication: Hypertensive heart disease Hypertensive heart disease : HTN/CAD Red Flags Indication: Hypertensive heart disease Knee pain : FOLLOW UP IN 4 WEEKS Indication: Knee pain Knee pain : FOLLOW UP IN 2 WEEKS [facility] Indication: Knee pain Obesity, morbid : Diet, Exercise, and Wt loss Indication: Obesity, morbid Mixed hyperlipidemia : CHOLESTEROL MGMT. Indication: Mixed hyperlipidemia Mixed hyperlipidemia : *Cholesterol - Nonprescription Treatment Indication: Mixed hyperlipidemia Hypertensive heart disease : FOLLOW UP IN 5 MONTHS for gen med Indication: Hypertensive heart disease Hyperlipidemia : CHOLESTEROL MGMT. Indication: Hyperlipidemia Hyperlipidemia : *Cholesterol - Medication Side Effects Indication: Hyperlipidemia Hyperlipidemia : *Cholesterol - Nonprescription Treatment Indication: Hyperlipidemia Coronary atherosclerosis of [place]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 : Reviewed [employer] Signal [employer]er Letter Indication: Coronary atherosclerosis of [place]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 Hypertensive heart disease : Diet, Exercise, and Wt loss Indication: Hypertensive heart disease Hypertensive heart disease : HTN/CAD Red Flags Indication: Hypertensive heart disease Hypertensive heart disease : Continue Current Prescription(s) Indication: Hypertensive heart disease Hypertensive heart disease : Diet, Exercise, and Wt loss Indication: Hypertensive heart disease Hypertensive heart disease : HTN/CAD Red Flags Indication: Hypertensive heart disease Hypertensive heart disease : Continue Current Prescription(s) Indication: Hypertensive heart disease Hyperlipidemia : Continue Current Prescription(s) Indication: Hyperlipidemia Hypertensive heart disease : FOLLOW UP IN 4 MONTHS gen med Indication: Hypertensive heart disease Hypertensive heart disease : FOLLOW UP IN 3 WEEKS yessenia bp and go over renal duplex Indication: Hypertensive heart disease Hypertensive heart disease : BP MONITORING - SELF Indication: Hypertensive heart disease Hyperlipidemia : CHOLESTEROL MGMT. Indication: Hyperlipidemia Hyperlipidemia : *Cholesterol - Nonprescription Treatment Indication: Hyperlipidemia Hyperlipidemia : *Cholesterol - Medication Side Effects Indication: Hyperlipidemia Hypertensive heart disease : Diet, Exercise, and Wt loss Indication: Hypertensive heart disease Hypertensive heart disease : HTN/CAD Red Flags Indication: Hypertensive heart disease Gout, unspecified : Reviewed Lab Indication: Gout, unspecified Shortness of breath at rest : FOLLOW UP IN 1 WEEK Indication: Shortness of breath at rest Coronary atherosclerosis of [place]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 : Reviewed [employer] Signal [employer]er Letter Indication: Coronary atherosclerosis of [place]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 Hypertensive heart disease : Diet, Exercise, and Wt loss Indication: Hypertensive heart disease Hypertensive heart disease : HTN/CAD Red Flags Indication: Hypertensive heart disease Hyperlipidemia : CHOLESTEROL MGMT. Indication: Hyperlipidemia Hyperlipidemia : Cholesterol - Medication Side Effects Indication: Hyperlipidemia Hyperlipidemia : Cholesterol - Nonprescription Treatment Indication: Hyperlipidemia Hypertensive heart disease : FOLLOW UP IN 4 MONTHS Indication: Hypertensive heart disease Hypertensive heart disease : Continue Current Prescription(s) Indication: Hypertensive heart disease Mixed hyperlipidemia : Cholesterol - Nonprescription Treatment Indication: Mixed hyperlipidemia Mixed hyperlipidemia : CHOLESTEROL MGMT. Indication: Mixed hyperlipidemia Mixed hyperlipidemia : Cholesterol - Medication Side Effects Indication: Mixed hyperlipidemia Hypertensive heart disease : Diet, Exercise, and Wt loss Indication: Hypertensive heart disease Hypertensive heart disease : HTN/CAD Red Flags Indication: Hypertensive heart disease Bronchitis : *URI Treatment Indication: Bronchitis Bronchitis : URI Symptoms Indication: Bronchitis Mixed hyperlipidemia : Continue Current Prescription(s) Indication: Mixed hyperlipidemia Mixed hyperlipidemia : Cholesterol - Nonprescription Treatment Indication: Mixed hyperlipidemia Mixed hyperlipidemia : CHOLESTEROL MGMT. Indication: Mixed hyperlipidemia Mixed hyperlipidemia : Cholesterol - Medication Side Effects Indication: Mixed hyperlipidemia Atherosclerosis of [place] coronary artery without angina pectoris, unspecified whether [place] or transplanted heart : Reviewed [employer] Signal [employer]er Letter Indication: Atherosclerosis of [place] coronary artery without angina pectoris, unspecified whether [place] or transplanted heart Hypertensive heart disease : Diet, Exercise, and Wt loss Indication: Hypertensive heart disease Hypertensive heart disease : HTN/CAD Red Flags Indication: Hypertensive heart disease Non morbid obesity, unspecified obesity type : Diet, Exercise, and Wt loss Indication: Non morbid obesity, unspecified obesity type Hypertensive heart disease : Diet, Exercise, and Wt loss Indication: Hypertensive heart disease Hypertensive heart disease : HTN/CAD Red Flags Indication: Hypertensive heart disease Hyperlipidemia : CHOLESTEROL MGMT. Indication: Hyperlipidemia Hyperlipidemia : Cholesterol - Nonprescription Treatment Indication: Hyperlipidemia Hyperlipidemia : Cholesterol - Medication Side Effects Indication: Hyperlipidemia Benign essential hypertension : Continue Current Prescription(s) Indication: Benign essential hypertension Benign essential hypertension : HTN/CAD Red Flags Indication: Benign essential hypertension Benign essential hypertension : Diet, Exercise, and Wt loss Indication: Benign essential hypertension Benign essential hypertension : FOLLOW UP IN 3 WEEKS Indication: Benign essential hypertension Benign essential hypertension : BP MONITORING - SELF Indication: Benign essential hypertension Vitamin D deficiency, unspecified : Reviewed Lab Indication: Vitamin D deficiency, unspecified Benign essential hypertension : FOLLOW UP IN 3 WEEKS Indication: Benign essential hypertension Hypertensive heart disease : BP MONITORING - SELF Indication: Hypertensive heart disease Non morbid obesity, unspecified obesity type : Diet, Exercise, and Wt loss Indication: Non morbid obesity, unspecified obesity type Hyperlipidemia : CHOLESTEROL MGMT. Indication: Hyperlipidemia Hyperlipidemia : Cholesterol - Nonprescription Treatment Indication: Hyperlipidemia Hyperlipidemia : Cholesterol - Medication Side Effects Indication: Hyperlipidemia Wheezing : Solu Medrol Injection/ Education Indication: Wheezing Bronchitis, acute : *URI Treatment Indication: Bronchitis, acute Bronchitis, acute : URI Symptoms Indication: Bronchitis, acute Calf pain : exercises Indication: Calf pain Hypertensive heart disease : FOLLOW UP IN 1 WEEK- 2week Indication: Hypertensive heart disease Hypertensive heart disease : BP MONITORING - SELF Indication: Hypertensive heart disease Chronic obstructive pulmonary disease : MDI Education Indication: Chronic obstructive pulmonary disease Elevated PSA : Reviewed [employer] Signal [employer]er Letter prostate bx negative Indication: Elevated PSA Hypertensive heart disease : Reviewed [employer] Signal [employer]er Letter Indication: Hypertensive heart disease Hyperlipidemia : CHOLESTEROL MGMT. Indication: Hyperlipidemia Hyperlipidemia : Cholesterol - Nonprescription Treatment Indication: Hyperlipidemia Hyperlipidemia : Cholesterol - Medication Side Effects Indication: Hyperlipidemia Hypertensive heart disease : FOLLOW UP IN 4 MONTHS gen med Indication: Hypertensive heart disease Cough : FOLLOW UP IN 3 WEEKS Indication: Cough Hypertensive heart disease : FOLLOW UP IN 3 WEEKS Indication: Hypertensive heart disease Hypertensive heart disease : BP MONITORING - SELF Indication: Hypertensive heart disease Hypertensive heart disease : BP MONITORING - SELF Indication: Hypertensive heart disease Hypertensive heart disease : HTN/CAD Red Flags Indication: Hypertensive heart disease Hyperlipidemia : Cholesterol - Nonprescription Treatment Indication: Hyperlipidemia Hyperlipidemia : Cholesterol - Medication Side Effects Indication: Hyperlipidemia Mixed hyperlipidemia : Diet and Exercise Indication: Mixed hyperlipidemia Ventricular tachycardia : Reviewed Diagnostic Tests: 24hr holter Indication: Ventricular tachycardia Planned Observations Cologuard - Strool Based DNA Test, CRC SCREEN ([id number])Indication: Encounter for screening for malignant neoplasm of colon (Renamed from Special screening for malignant neoplasms, colon) On: 43-Wde-996391:47 Request TSH ([id number])Indication: 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, without long-term current use of insulin On: 6-Tyv-904504:20 Request URINALYSIS, W/ MICRO ([id number])Indication: 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 On: 7-Uzw-350976:19 Request MICROALBUMIN: CREATININE RATIO ([id number]) AND ([id number])Indication: 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 On: 0-Jnn-878420:19 Request METABOLIC PANEL, COMPREHENSIVE ([id number])Indication: 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 On: :19 Request LIPID PANEL ([id number])Indication: 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 On: :19 Request CBC with auto diff ([id number])Indication: 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 On: :19 Request CALCIFEDIOL ([id number])Indication: Vitamin D deficiency On: :19 Request CALCIFEDIOL ([id number])Indication: Vitamin D deficiency On: 16-Dhr-395756:51 Request PARATHORMONE ([id number])Indication: Elevated parathyroid hormone On: 96-Fbx-520834:51 Request URINALYSIS, W/ MICRO ([id number])Indication: Diabetes mellitus without complication (Renamed from Diabetes mellitus with no complication) On: :17 Request MICROALBUMIN: CREATININE RATIO ([id number]) AND ([id number])Indication: Diabetes mellitus without complication (Renamed from Diabetes mellitus with no complication) On: :17 Request CALCIFIDIOL ([id number]) VIT D 25Indication: Vitamin D deficiency, unspecified On: :39 Request TSH ([id number])Indication: 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, without long-term current use of insulin On: :39 Request URINALYSIS, W/ MICRO ([id number])Indication: 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, without long-term current use of insulin On: :39 Request MICROALBUMIN: CREATININE RATIO ([id number]) AND ([id number])Indication: 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, without long-term current use of insulin On: :39 Request METABOLIC PANEL, COMPREHENSIVE ([id number])Indication: 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, without long-term current use of insulin On: :39 Request LIPID PANEL ([id number])Indication: 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, without long-term current use of insulin On: :39 Request CBC W/AUTO DIFF WBC ([id number])Indication: 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, without long-term current use of insulin On: :39 Request TSH ([id number])Indication: Diabetes mellitus type 2, uncontrolled, without complications On: 58-Qjr-292987:04 Request URINALYSIS, W/ MICRO ([id number])Indication: Diabetes mellitus type 2, uncontrolled, without complications On: 91-Ezf-275394:04 Request MICROALBUMIN: CREATININE RATIO ([id number]) AND ([id number])Indication: Diabetes mellitus type 2, uncontrolled, without complications On: 05-Pgy-426150:04 Request METABOLIC PANEL, COMPREHENSIVE ([id number])Indication: Diabetes mellitus type 2, uncontrolled, without complications On: :04 Request LIPID PANEL ([id number])Indication: Mixed hyperlipidemia On: : Request CBC W/AUTO DIFF WBC ([id number])Indication: Diabetes mellitus type 2, uncontrolled, without complications On: :03 Request FECAL OCCULT- Tubes sent home ([id number])Indication: Encounter for screening for malignant neoplasm of colon (Renamed from Special screening for malignant neoplasms, colon) On: 0-Afd-361536:21 Request Metabolic Panel, Basic ([id number])Indication: Renal insufficiency On: 2-Clt-635870:41 Request Comments: wednesday Metabolic Panel, Basic ([id number])Indication: Renal insufficiency On: 05-Jul-2015 Request Metabolic Panel, Basic ([id number])Indication: Renal insufficiency On: 47-Mcx-519279:41 Request BASIC METABOLIC w/Ionized Ca++ ([id number])Indication: Short of breath on exertion On: 5-Pxi-611375:31 Request METABOLIC PANEL, BASIC ([id number])Indication: Abnormal blood chemistry On: 3-Fax-982528:23 Request Metabolic Panel, Basic ([id number])Indication: Acute systolic congestive heart failure On: 1-Ood-410936:54 Request Metabolic Panel, Basic ([id number])Indication: Atrial fibrillation, unspecified type On: 06-Bhh-269071:04 Request ASSAY, NATIURETIC PEPTIDE ([id number])Indication: Atrial fibrillation, unspecified type On: 65-Ekd-580090:04 Request ASSAY, NATIURETIC PEPTIDE ([id number])Indication: Bilateral edema of lower extremity On: 95-Exs-235895:13 Request ASSAY, NATIURETIC PEPTIDE ([id number])Indication: Acute systolic congestive heart failure On: 96-Lmt-567632:39 Request Comments: re check in 1-2 weeks PSA (Medicare - [id number]) ([id number])Indication: Elevated PSA On: :17 Request TSH ([id number])Indication: Diabetes mellitus type 2, uncontrolled, without complications On: :16 Request URINALYSIS, W/ MICRO ([id number])Indication: Diabetes mellitus type 2, uncontrolled, without complications On: :16 Request MICROALBUMIN: CREATININE RATIO ([id number]) AND ([id number])Indication: Diabetes mellitus type 2, uncontrolled, without complications On: :16 Request METABOLIC PANEL, COMPREHENSIVE ([id number])Indication: Diabetes mellitus type 2, uncontrolled, without complications On: :16 Request LIPID PANEL ([id number])Indication: Diabetes mellitus type 2, uncontrolled, without complications On: :16 Request CBC with auto diff ([id number])Indication: Diabetes mellitus type 2, uncontrolled, without complications On: :16 Request CALCIFIDIOL ([id number]) VIT D 25Indication: Vitamin D deficiency, unspecified On: :16 Request Vitamin D Hydroxy ([id number])Indication: Vitamin D deficiency, unspecified On: 9-Tha-872060:05 Request URINALYSIS, W/ MICRO ([id number])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 On: 4-Tnu-138793:04 Request MICROALBUMIN: CREATININE RATIO ([id number]) AND ([id number])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 On: 4-Lhj-800527:04 Request METABOLIC PANEL, COMPREHENSIVE ([id number])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 On: 3-Lmd-877242:04 Request LIPID PANEL ([id number])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 On: :04 Request CBC WITH MANUAL DIFF ([id number])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 On: 5-Cbc-951824:04 Request FECAL OCCULT- Tubes sent home ([id number])Indication: Encounter for routine history and physical exam for male On: 86-Hlx-071304:09 Request CALCIFIDIOL ([id number]) VIT D 25Indication: Vitamin D deficiency, unspecified On: :11 Request PSA TOTAL +%FREE [id number] ([id number])Indication: Elevated PSA On: 6-Ojk-785991:14 Request BILIRUBIN, TOTAL & DIRECT ([id number])Indication: Other specified abnormal findings of blood chemistry On: 9-Ufr-882574:14 Request Glucose, PP/2 Hour ([id number])Indication: Other specified abnormal findings of blood chemistry On: 95-Ngv-984901:03 Request CALCIFIDIOL ([id number]) VIT D 25Indication: Vitamin D deficiency, unspecified On: 51-Sbq-601257:31 Request TSH ([id number])Indication: Hypertensive heart disease On: : Request URINALYSIS, W/ MICRO ([id number])Indication: Hypertensive heart disease On: :28 Request MICROALBUMIN: CREATININE RATIO ([id number]) AND ([id number])Indication: Hypertensive heart disease On: : Request METABOLIC PANEL, COMPREHENSIVE ([id number])Indication: Hypertensive heart disease On: : Request CBC WITH MANUAL DIFF ([id number])Indication: Hypertensive heart disease On: : Request PSA (PROSTATE SPECIFIC ANTIGEN) (V76.44)Indication: Elevated PSA On: :25 Request LIPID PANEL ([id number])Indication: Hyperlipidemia On: 12-Ubn-244440:23 Request Comments: do for next appt- 4mo Metabolic Panel, Basic ([id number])Indication: Pain of hand, unspecified laterality On: 29-Jgx-064129:42 Request URIC ACID BLOOD ([id number])Indication: Pain of hand, unspecified laterality On: 53-Ozv-092885:42 Request C-REACTIVE PROTEIN ([id number])Indication: Pain of hand, unspecified laterality On: 62-Mvi-513733:52 Request SED RATE ERYTHROCYTE ([id number])Indication: Pain of hand, unspecified laterality On: 41-Cwu-345920:52 Request CBC WITH MANUAL DIFF ([id number])Indication: Pain of hand, unspecified laterality On: 78-Wic-834915:51 Request Magnesium ([id number])Indication: Hypokalemia On: :25 Request Potassium Serum ([id number])Indication: Hypokalemia On: 41-Fik-989965:25 Request Comments: do in 2 weeks Vitamin D Hydroxy ([id number])Indication: Vitamin D deficiency, unspecified On: 64-Vjy-761001:23 Request Glucose, PP/2 Hour ([id number])Indication: Other specified abnormal findings of blood chemistry On: 60-Ahd-635901:18 Request LIPID PANEL ([id number])Indication: Hyperlipidemia On: 27-Wtx-879556:45 Request Comments: DO IN 3 MONTHS HEPATIC FUNCTION PANEL ([id number])Indication: Hyperlipidemia On: 45-Fqh-756107:45 Request HEPATIC FUNCTION PANEL ([id number])Indication: Hyperlipidemia On: 06-Lwl-647845:54 Request LIPID PANEL ([id number])Indication: Hyperlipidemia On: 13-Vzb-897979:54 Request Comments: do in 3 months PARATHORMONE ([id number])Indication: Vitamin D deficiency, unspecified On: 32-Ghg-465374:45 Request CALCIUM SERUM ([id number])Indication: Vitamin D deficiency, unspecified On: 41-Rry-661350:45 Request VITAMIN D, 1, 25-DIHYDROXY ([id number])Indication: Vitamin D deficiency, unspecified On: 59-Qhr-270975:45 Request VITAMIN D, 25-DIHYDROXY ([id number])Indication: Vitamin D deficiency, unspecified On: 17-Qwn-877160:45 Request LIPID PANEL ([id number])Indication: Hyperlipidemia On: 96-Dnw-325241:44 Request Planned Procedures INTENSIVE BEHAVIORAL THERAPY TO On: 15-Nov-2017 Intent REDUCE CARDIOVASCULAR DISEASE RISK, INDIVIDUAL, [id number]-[id number], ANNUAL, 15 MINUTES (G0446)By: Vicki Styles DO, DO, Kathleen [id number] BEHAVIORAL COUNSELING On: 15-Nov-2017 Intent FOR OBESITY, 15 MINUTES (G0447)By: Vicki Styles DO, DO, Kathleen Spirometry ([id number])By: Neil NG, On: 06-Sep-2017 Intent Vicki Nichols DO Comments: severe obsstyuction and good effort on curve-- addeed dulera - ELECTROCARDIOGRAM, COMPLETE (ECG) On: 06-Sep-2017 Intent ([id number])By: Vicki Styles DO Comments: a fib- rate controlled - no acute findings Vicki Styles DO X-RAY OF HAND, THREE VIEWS On: 17-Jun-2017 Intent ([id number])By: Vicki Styles DO Comments: Right hand Vicki Styles DO PARATHYROID SCAN ([id number])By: Neil On: 17-Jun-2017 Intent Vicki NG DO Vicki Overnight Pulse OX ([id number])By: On: 04-Jun-2017 Intent Vicki Styles DO DOVicki [id number] BEHAVIORAL COUNSELING On: 09-Nov-2016 Intent FOR OBESITY, 15 MINUTES (G0447)By: Vicki Styles DO NeilVicki santos DO INTENSIVE BEHAVIORAL THERAPY TO On: 09-Nov-2016 Intent REDUCE CARDIOVASCULAR DISEASE RISK, INDIVIDUAL, [id number], ANNUAL, 15 MINUTES (G0446)By: Vicki Styles DO, DO, Kathleen ELECTROCARDIOGRAM, COMPLETE (ECG) On: 10-Sep-2016 Intent ([id number])By: Vicki Styles DO Comments: chronic chg - afib/flutter - rate controlled Vicki Styles DO SIX MINUTE WALK TEST ([id number])By: On: 26-Mar-2016 Intent Vicki Styles DO DOVicki Overnight Pulse OX ([id number])By: On: 09-Mar-2016 Intent Vicki Styles DO DO, Vicki Overnight Pulse OX ([id number])By: On: 04-Mar-2016 Intent Vicki Styles DO, DO, Kathleen Spirometry ([id number])By: Neil NG, On: 04-Mar-2016 Intent Vicki Nichols DO Comments: pt admits not using inhalers - restrictive pattern - refilled inhalers - symbicort nad spiriva and will yessenia in one month INTENSIVE BEHAVIORAL THERAPY TO On: 07-Nov-2015 Intent REDUCE CARDIOVASCULAR DISEASE RISK, INDIVIDUAL, [id number]-DERP, ANNUAL, 15 MINUTES (G0446)By: Vicki Styles DO Neil DOVicki [id number] BEHAVIORAL COUNSELING On: 07-Nov-2015 Intent FOR OBESITY, 15 MINUTES (G0447)By: Vicki Styles DO, DO, Kathleen Radiology - Chest- PA and LatBy: On: 18-Apr-2015 Intent Vicki Styles DO, DO, Kathleen Echo CompleteBy: Neil NG, On: 18-Apr-2015 Intent Vicki Nichols DO Prevnar 13 ([id number])By: Neil NG, On: 16-Jan-2014 Intent Vicki Nichols DO Prevnar 13 ([id number])By: Neil NG, On: 16-Jan-2014 Intent Vicki Nichols DO Comments: 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, 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, 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 Overnight Pulse OX ([id number])By: On: 03-Jan-2014 Intent Vicki Styles DO, DO, Kathleen Six Minute Walk Assessment On: 28-Dec-2013 Intent ([id number])By: Vicki Styles DO DO, Vicki [id number] BEHAVIORAL COUNSELING On: 23-Nov-2013 Intent FOR OBESITY, 15 MINUTES (G0447)By: Vicki Styles DO, DO, Vicki INTENSIVE BEHAVIORAL THERAPY TO On: 19-Oct-2013 Intent REDUCE CARDIOVASCULAR DISEASE RISK, INDIVIDUAL, [id number]-GZHA, ANNUAL, 15 MINUTES (G0446)By: Vicki Styles DO, DO, Vicki UOND-MA-IWRV BEHAVIORAL COUNSELING On: 19-Oct-2013 Intent FOR OBESITY, 15 MINUTES (G0447)By: Vicki Styles DO, DO, Kathleen Radiology - Chest- PA and LatBy: On: 24-Aug-2013 Intent Vicki Styles DO, DO, Vicki Aerosol Treatment ([id number])By: On: 24-Aug-2013 Intent Vicki Styles DO Neil DO, Comments: no wheeze and much more a/e Vicki Eprescribed prescriptions On: 15-May-2013 Intent (G8553)By: Leora Fonseca LPN Eprescribed prescriptions On: 20-Mar-2013 Intent (G8553)By: Vicki Styles DO Neil DO, Vicki INTENSIVE BEHAVIORAL THERAPY TO On: 17-Oct-2012 Intent REDUCE CARDIOVASCULAR DISEASE RISK, INDIVIDUAL, [id number]-[id number], ANNUAL, 15 MINUTES (G0446)By: Vicki Styles DO DO, Vicki [id number]-[id number] BEHAVIORAL COUNSELING On: 17-Oct-2012 Intent FOR OBESITY, 15 MINUTES (G0447)By: Vicki Styles DO, DO, Kathleen EKG ([id number])By: Neil NG, On: 17-Oct-2012 Intent Vicki Neil DO, Vicki Eprescribed prescriptions On: 17-Oct-2012 Intent (G8553)By: Leora Fonseca LPN Six Minute Walk Assessment On: 28-Jul-2012 Intent ([id number])By: Aleksandr HUTSON, Gay Bio Z ([id number])By: Neil DO, On: 18-Jul-2012 Intent Vicki Neil DOJonathanVicki Comments: unable to connect and perform Six Minute Walk Assessment On: 18-Jul-2012 Intent ([id number])By: Vicki Styles DO Comments: set up Neil DO, Vicki Eprescribed prescriptions On: 22-Apr-2012 Intent (G8553)By: Leora Fonseca LPN Spirometry ([id number])By: Neil NG, On: 21-Jan-2012 Intent Vicki Neil DO Vicki Comments: poor effort Eprescribed prescriptions On: 21-Jan-2012 Intent (G8553)By: Leora Fonseca LPN PFT - CompleteBy: Neil NG, On: 21-Oct-2011 Intent Vicki Neil DO, Vicki EKG ([id number])By: Neil NG, On: 21-Oct-2011 Intent VickiVicki Jones DO Comments: nsr no acute chg Eprescribed prescriptions On: 05-Aug-2011 Intent (G8553)By: Leora Fonseca LPN Six Minute Walk Assessment On: 06-Feb-2011 Intent ([id number])By: Naomi Mendez Comments: see scanned documents Six Minute Walk Assessment On: 26-Nov-2010 Intent ([id number])By: Vicki Styles DO Comments: set up Neil DO, Vicki Bio Z ([id number])By: Neil NG, On: 26-Nov-2010 Intent VickiVicki Hernandez DO Comments: norrmal parameters no chg in rx EKG ([id number])By: Neil NG, On: 26-Nov-2010 Intent Vicki NeilVicki santos DO Comments: nsr no acute chgn TDAP VACCINE >7 IM ([id number])By: On: 30-Jul-2010 Intent Vicki Styles DO, DO, Comments: Lot:[id number]:06/26/12Amt:prefilledRoute:IMSite: left deltGiven By: CARYL Edwards Eprescribed prescriptions On: 30-Jul-2010 Intent (G8553)By: Vicki Styles DO, DO, Vicki Bio Z ([id number])By: Neil NG, On: 30-Jul-2010 Intent Vicki Nichols DO Comments: STABLE SEE SCANNED DOC -NO CHG IN MEDS EKG ([id number])By: Neil NG, On: 26-Mar-2010 Intent Vicki Styles DO, Vicki Bio Z ([id number])By: Neil NG, On: 26-Mar-2010 Intent Vicki Nichols DO PHYSICAL THERAPY EVALUATION On: 07-Jan-2010 Intent ([id number])By: Elisabet Matos CNP Radiology - Knee - Left - Weight On: 07-Jan-2010 Intent BearingBy: Elisabet Matos CNP Radiology - Knee - LeftBy: Ciesa On: 07-Jan-2010 Intent Elisabet HIRSCH Renal Duplex ScanBy: Neil NG, On: 14-Jun-2009 Intent Vicki Styles DO, Vicki Radiology - Wrist - LeftBy: Neil On: 19-Mar-2009 Intent DO, Vicki Neil DO, Vicki Radiology - Hand - LeftBy: Neil On: 19-Mar-2009 Intent DO, Vicki Styles DO, Vicki Radiology - Chest- PA and LatBy: On: 19-Mar-2009 Intent Vicki Styles DO Neil DO, Vicki Bio Z ([id number])By: Neil NG, On: 19-Mar-2009 Intent Vicki Nichols DO Comments: ok co and svr EKG ([id number])By: Neil NG, On: 19-Mar-2009 Intent Vicki Nichols DO Comments: nsr no acute changes Spirometry ([id number])By: Neil NG, On: 19-Mar-2009 Intent Vicki Nichols DO Comments: mild obstructive pattern - Pulse Oximetry ([id number])By: Mast RN, On: 19-Mar-2009 Intent Darling EKG ([id number])By: Neil NG, On: 25-Jul-2008 Intent Vicki Nichols DO Comments: no acute stable Bio Z ([id number])By: Neil NG, On: 25-Jul-2008 Intent Vicki Nichols DO Comments: stable no changes Six Minute Walk Assessment On: 16-May-2008 Intent ([id number])By: Crystal Reyes Six Minute Walk Assessment On: 23-Mar-2008 Intent ([id number])By: Vicki Styles DO, DO, Kathleen Bio Z ([id number])By: Neil NG, On: 23-Mar-2008 Intent Vicki Nichols DO Comments: normal svr and co Radiology - Knee - LeftBy: Neil On: 28-Dec-2007 Intent Vicki NG DO, Kathleen Radiology - Knee - RightBy: Neil On: 28-Dec-2007 Intent Vicki NG DO, Kathleen Bio Z ([id number])By: Neil NG, On: 28-Dec-2007 Intent Vicki Nichols DO Comments: normal svr and co Bio Z ([id number])By: Neil NG, On: 01-Sep-2007 Intent Vicki Nichols DO Comments: HYPERDYNAMIC HEART-- HI CO AND LO SVR Holter Moniter ([id number])By: Neil On: 04-May-2007 Intent Vicki NG DO, Kathleen Comments: set up Bio Z ([id number])By: Neil NG, On: 04-May-2007 Intent Vicki Nichols DO Comments: normal svr and co EKG ([id number])By: Neil NG, On: 04-May-2007 Intent Vicki Nichols DO Comments: nsr some pvc-- no acute ischemic changes Radiology - Chest- PA and LatBy: On: 24-Mar-2007 Intent Vicki Styles DO, DO, Kathleen Aerosol Treatment ([id number])By: On: 24-Mar-2007 Intent Vicki Styles DO, DO, Comments: better air exchange less wheeze and less irritability with cough Vicki Solu- Medrol Injection, 125mg On: 24-Mar-2007 Intent ([id number])By: Vicki Styles DO Comments: given in right hip, 125mg, lot#[id number], exp.-- Vicki Styles DO Spirometry ([id number])By: Neil NG, On: 24-Mar-2007 Intent Vicki Nichols DO Comments: severe airway obstruction Pulse Oximetry ([id number])By: Neil On: 24-Mar-2007 Vicki Coates DO, DO, Kathleen Comments: 94% Doppler Ultrasound OtherBy: Neil On: 02-Mar-2007 Vicki Coates DO, DO, Kathleen Comments: R Inhaler Demo ([id number])By: Neil NG, On: 27-Jan-2007 Intent Vicki Nichols DO Bio Z ([id number])By: Neil NG, On: 27-Jan-2007 Intent Vicki Nichols DO Comments: normal svr and co Spirometry ([id number])By: Neil NG, On: 27-Jan-2007 Intent Vciki Nichols DO Comments: mild obstruction Bio Z ([id number])By: Neil NG, On: 11-Oct-2006 Intent Vicki Nichols DO Comments: normal svr and co EKG ([id number])By: Neil NG, On: 26-Apr-2006 Intent Vicki Nichols DO Comments: nsr intraventricular conduction delay no acute ischemic changes Holter Moniter ([id number])By: On: 26-Mar-2006 Intent REILLY Moya Instructions Name Dates Details Coronary artery disease, occlusive : cardiovascular counseling Indication: Coronary artery disease, occlusive 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, without long-term current use of insulin : obesity counseling Indication: 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, without long- term current use of insulin Nonsmoker : How to access health information online Indication: Nonsmoker Nonsmoker : How to access health information online - Detail Indication: Nonsmoker Nonsmoker : Patient Instructions Indication: Nonsmoker 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, without long-term current use of insulin : How to access health information online Indication: 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, without long- term current use of insulin 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, without long-term current use of insulin : How to access health information online - Detail Indication: 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, without long- term current use of insulin 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, without long-term current use of insulin : Patient Instructions Indication: 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, without long- term current use of insulin BMI 34.0-34.9,adult : How to access health information online Indication: BMI 34.0-34.9,adult BMI 34.0-34.9,adult : How to access health information online - Detail Indication: BMI 34.0-34.9,adult BMI 34.0-34.9,adult : Patient Instructions Indication: BMI 34.0-34.9,adult Nonsmoker : Patient Instructions Indication: Nonsmoker Nonsmoker : How to access health information online - Detail Indication: Nonsmoker Nonsmoker : How to access health information online Indication: Nonsmoker Nonsmoker : How to access health information online Indication: Nonsmoker Nonsmoker : How to access health information online - Detail Indication: Nonsmoker Nonsmoker : Patient Instructions Indication: Nonsmoker Diabetes mellitus without complication (Renamed from Diabetes mellitus with no complication) : How to access health information online Indication: Diabetes mellitus without complication (Renamed from Diabetes mellitus with no complication) Diabetes mellitus without complication (Renamed from Diabetes mellitus with no complication) : How to access health information online - Detail Indication: Diabetes mellitus without complication (Renamed from Diabetes mellitus with no complication) Diabetes mellitus without complication (Renamed from Diabetes mellitus with no complication) : Patient Instructions Indication: Diabetes mellitus without complication (Renamed from Diabetes mellitus with no complication) Nonsmoker : How to access health information online Indication: Nonsmoker Nonsmoker : How to access health information online - Detail Indication: Nonsmoker Nonsmoker : Patient Instructions Indication: Nonsmoker 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, without long-term current use of insulin : obesity counseling Indication: 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, without long- term current use of insulin Coronary artery disease, occlusive : cardiovascular counseling Indication: Coronary artery disease, occlusive BMI 35.0-35.9,adult : How to access health information online Indication: BMI 35.0-35.9,adult BMI 35.0-35.9,adult : How to access health information online - Detail Indication: BMI 35.0-35.9,adult BMI 35.0-35.9,adult : Patient Instructions Indication: BMI 35.0-35.9,adult 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, without long-term current use of insulin : How to access health information online Indication: 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, without long- term current use of insulin 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, without long-term current use of insulin : How to access health information online - Detail Indication: 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, without long- term current use of insulin 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, without long-term current use of insulin : Patient Instructions Indication: 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, without long- term current use of insulin 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, without long-term current use of insulin : How to access health information online Indication: 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, without long- term current use of insulin 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, without long-term current use of insulin : How to access health information online - Detail Indication: 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, without long- term current use of insulin 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, without long-term current use of insulin : Patient Instructions Indication: 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, without long- term current use of insulin Nonsmoker : How to access health information online Indication: Nonsmoker Nonsmoker : How to access health information online - Detail Indication: Nonsmoker Nonsmoker : Patient Instructions Indication: Nonsmoker Acute on chronic diastolic congestive heart failure : How to access health information online Indication: Acute on chronic diastolic congestive heart failure Acute on chronic diastolic congestive heart failure : How to access health information online - Detail Indication: Acute on chronic diastolic congestive heart failure Diabetes mellitus type 2, uncontrolled, without complications : Patient Instructions Indication: Diabetes mellitus type 2, uncontrolled, without complications Diabetes mellitus type 2, uncontrolled, without complications : Patient Instructions Indication: Diabetes mellitus type 2, uncontrolled, without complications Acute systolic congestive heart failure : cardiovascular counseling Indication: Acute systolic congestive heart failure Diabetes mellitus type 2, uncontrolled, without complications : obesity counseling Indication: Diabetes mellitus type 2, uncontrolled, without complications Atrial fibrillation, unspecified type : How to access health information online Indication: Atrial fibrillation, unspecified type Atrial fibrillation, unspecified type : How to access health information online - Detail Indication: Atrial fibrillation, unspecified type Atrial fibrillation, unspecified type : Patient Instructions Indication: Atrial fibrillation, unspecified type Irregular heart beat : How to access health information online Indication: Irregular heart beat Irregular heart beat : How to access health information online - Detail Indication: Irregular heart beat Irregular heart beat : Patient Instructions Indication: Irregular heart beat Hypertension with renal disease : How to access health information online Indication: Hypertension with renal disease Hypertension with renal disease : How to access health information online - Detail Indication: Hypertension with renal disease Hypertension with renal disease : Patient Instructions Indication: Hypertension with renal disease Chronic kidney disease, stage 3 : How to access health information online Indication: Chronic kidney disease, stage 3 Chronic kidney disease, stage 3 : How to access health information online - Detail Indication: Chronic kidney disease, stage 3 Chronic kidney disease, stage 3 : Patient Instructions Indication: Chronic kidney disease, stage 3 Chronic kidney disease, stage 3 : How to access health information online Indication: Chronic kidney disease, stage 3 Chronic kidney disease, stage 3 : How to access health information online - Detail Indication: Chronic kidney disease, stage 3 Chronic kidney disease, stage 3 : Patient Instructions Indication: Chronic kidney disease, stage 3 Bilateral edema of lower extremity : Patient Instructions Indication: Bilateral edema of lower extremity Renal insufficiency : How to access health information online Indication: Renal insufficiency Renal insufficiency : How to access health information online - Detail Indication: Renal insufficiency Renal insufficiency : Patient Instructions Indication: Renal insufficiency Bilateral edema of lower extremity : How to access health information online Indication: Bilateral edema of lower extremity Bilateral edema of lower extremity : How to access health information online - Detail Indication: Bilateral edema of lower extremity Bilateral edema of lower extremity : Patient Instructions Indication: Bilateral edema of lower extremity Short of breath on exertion : How to access health information online - Detail Indication: Short of breath on exertion Short of breath on exertion : Patient Instructions Indication: Short of breath on exertion Short of breath on exertion : Patient Instructions Indication: Short of breath on exertion Acute systolic congestive heart failure : How to access health information online Indication: Acute systolic congestive heart failure Acute systolic congestive heart failure : How to access health information online - Detail Indication: Acute systolic congestive heart failure Acute systolic congestive heart failure : Patient Instructions Indication: Acute systolic congestive heart failure Coronary atherosclerosis of [place]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 : How to access health information online Indication: Coronary atherosclerosis of [place]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 Coronary atherosclerosis of [place]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 : How to access health information online - Detail Indication: Coronary atherosclerosis of [place]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 Bilateral edema of lower extremity : Patient Instructions Indication: Bilateral edema of lower extremity Diabetes mellitus type 2, uncontrolled, without complications : Patient Instructions Indication: Diabetes mellitus type 2, uncontrolled, without complications Diabetes mellitus type 2, uncontrolled, without complications : How to access health information online Indication: Diabetes mellitus type 2, uncontrolled, without complications Diabetes mellitus type 2, uncontrolled, without complications : How to access health information online - Detail Indication: Diabetes mellitus type 2, uncontrolled, without complications Diabetes mellitus type 2, uncontrolled, without complications : Patient Instructions Indication: Diabetes mellitus type 2, uncontrolled, without complications BMI 37.0-37.9, adult : obesity counseling Indication: BMI 37.0-37.9, adult Diabetes mellitus type 2, uncontrolled, without complications : Patient Instructions Indication: Diabetes mellitus type 2, uncontrolled, without complications Coronary atherosclerosis of [place]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 : cardiovascular counseling Indication: Coronary atherosclerosis of [place]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 BMI 37.0-37.9, adult : obesity counseling Indication: BMI 37.0-37.9, adult Encounter for Medicare annual wellness exam : Patient Instructions Indication: Encounter for Medicare annual wellness exam Diabetes mellitus without complication (Renamed from Diabetes mellitus with no complication) : Patient Instructions Indication: Diabetes mellitus without complication (Renamed from Diabetes mellitus with no complication) Diabetes mellitus without complication (Renamed from Diabetes mellitus with no complication) : Patient Instructions Indication: Diabetes mellitus without complication (Renamed from Diabetes mellitus with no complication) 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 : Patient Instructions 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 Abnormal brain MRI : Patient Instructions Indication: Abnormal brain MRI Coronary atherosclerosis of [place]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 : cardiovascular counseling Indication: Coronary atherosclerosis of [place]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 BMI 36.0-36.9,adult : obesity counseling Indication: BMI 36.0-36.9,adult Diabetes mellitus without complication (Renamed from Diabetes mellitus with no complication) : Patient Instructions Indication: Diabetes mellitus without complication (Renamed from Diabetes mellitus with no complication) Diabetes mellitus without complication (Renamed from Diabetes mellitus with no complication) : Patient Instructions Indication: Diabetes mellitus without complication (Renamed from Diabetes mellitus with no complication) Hypertension with renal disease : Patient Instructions Indication: Hypertension with renal disease Encounters Office Visit On: 15-Nov-2017 10:02 Encounter Reason: Annual Medicare Exam - The patient had reviewed and updated the family history, medication/s, past medical history and social history. Yes the patient did have a mini mental status exam done today. The End: 15-Nov-2017 11:45 activities of daily living the patient needs help with are none. The patient has driven in past 6 months, fallen in the past 6 months and put area rugs through house, but the patient has not had fecal i ncontinence, had urinary incontinence, missed or ran out of medications to soon, gotten lost, has a medalert necklace or bracelet or put handrails in bathroom. The patient has completed the following pr eventative measures: PSA testing (2016) and colonoscopy (2001). The patient does have durable power of employee benefits attorney and living will. The patient has noticed nothing from the geriatic depression scale. Other providers contributing to the patient's care are beef ribber, mechanic helper, urologist and other: (endo).Encounter Diagnosis: Nonsmoker, BMI 35.0-35.9,adult, Annual Medicare Physical WITH abnormal findings (Renamed from Encounter for general adult medical examination with abnormal findings), Encounter for screening for malignant neoplasm of colon (Renamed from Special screening for malignant neoplasms, colon), Screening for prostate cancer, 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, without long-term current use of insulin, Coronary artery disease, occlusive, Memory impairment, Nutritional counseling [facility] Office Visit On: 06-Sep-2017 10:54 Encounter Reason: Follow up for chronic medical issues - The medical issues the patient is following up for include All identified problems below, blood sugar issues, cardiac issues, COPD, high blood pressure, high cholesterol and kidney problems. 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, Elevated parathyroid hormone, Parathyroid adenoma, COPD, mild, Hypoxia, Mixed hyperlipidemia (272.2), Vitamin D deficiency [facility] Review On: 10-Aug-2017 10:08 [facility] Office Visit On: 09-Jul-2017 10:03 Encounter Reason: Follow up tests - Date: (06/21/17 scan and labs).Encounter Diagnosis: Nonsmoker, BMI 34.0-34.9,adult, Osteoarthritis of both knees, unspecified osteoarthritis type, Erosive osteoarthritis of hand, Pseudogout, Parathyroid adenoma, End: 09-Jul-2017 11:15 Elevated parathyroid hormone [facility] Office Visit On: 21-Jun-2017 10:49 Encounter Diagnosis: BMI 34.0-34.9,adult, Nonsmoker, Hand pain, right, Swollen joint, 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, without long-term current use of insulin, Nutritional counseling End: 21-Jun-2017 11:54 [facility] Office Visit On: 17-Jun-2017 10:55 Encounter Reason: Follow up tests - Date: (06/07/17 labs).Encounter Diagnosis: BMI 32.0-32.9,adult, Nonsmoker, Elevated parathyroid hormone, Vitamin D deficiency, Pseudogout, BPH associated with nocturia, Coronary artery disease, occlusive, End: 17-Jun-2017 12:05 Mixed hyperlipidemia (272.2), 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, without long-term current use of insulin, Hand pain, right [facility] Office Visit On: 04-Jun-2017 9:39 Encounter Reason: Follow up for chronic medical issues - The patient feels well with minor complaints, has good energy level and is sleeping well. Patient has been compliant with instructions. Current medication use: no End: 04-Jun-2017 10:30 side effects and compliant with dosing regimen. Patient sleeps 7 hours per night. Nutrition: balanced diet and no supplemental vitamins & iron. The medical issues the patient is following up for shelli davis All identified problems below, blood sugar issues, cardiac issues, high blood pressure and high cholesterol. 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, Coronary artery disease, occlusive, Hypoxia, BPH associated with nocturia, Pseudogout [facility] Office Visit On: 06-Jan-2017 9:56 Encounter Reason: Transition into care - The patient is transitioning into care from a hospital (I fell and messup knee and I could not move so I called squad and I was at [facility] and then I went to [facility] for End: 06-Jan-2017 11:01 heraphy) and a summary of care was reviewed.Encounter Diagnosis: BMI 34.0-34.9,adult, Nonsmoker, Chronic anticoagulation, Osteoarthritis of both knees, unspecified osteoarthritis type, Pain in both knees, unspecified chronicity, Atrial fibrillation, chronic, Nutritional counseling, Influenza vaccination declined (Renamed from Refused influenza vaccine) [facility] Office Visit On: 09-Nov-2016 10:26 Encounter Reason: Annual Medicare Exam - The patient had reviewed and updated the family history, medication/s, past medical history and social history. Yes the patient did have a mini mental status exam done today. The End: 09-Nov-2016 11:14 activities of daily living the patient needs help with are none. The patient has driven in past 6 months and put area rugs through house, but the patient has not had fecal incontinence, had urinary inco ntinence, missed or ran out of medications to soon, fallen in the past 6 months, gotten lost, has a medalert necklace or bracelet or put handrails in bathroom. The patient has completed the following pr eventative measures: PSA testing (2015) and colonoscopy (2001). The patient does have durable power of employee benefits attorney and living will. The patient has noticed nothing from the geriatic depression scale. Other providers contributing to the patient's care are beef ribber, urologist and other:.Encounter Diagnosis: Nonsmoker, BMI 35.0-35.9,adult, Annual Medicare Phyiscal WITHOUT abnormal findings (Renamed from Encounter for general adult medical examination without abnormal findings), Screening for prostate cancer, Encounter for screening for malignant neoplasm of colon (Renamed from Special screening for malignant neoplasms, colon), Coronary artery disease, occlusive, 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, without long-term current use of insulin [facility] Office Visit On: 10-Sep-2016 10:19 Encounter Reason: Follow up for chronic medical issues - The patient feels well with minor complaints, has good energy level and is sleeping well. Patient has been compliant with instructions. Current medication use: no End: 10-Sep-2016 15:01 side effects and compliant with dosing regimen. Patient sleeps 7 hours per night. Nutrition: balanced diet and no supplemental vitamins & iron. The medical issues the patient is following up for inc lude All identified problems below, blood sugar issues, cardiac issues, high blood pressure and high cholesterol. 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 Patient has been compliant with instructions. Current medication use: no End: 04-Jun-2016 11:23 side effects and compliant with dosing regimen. Patient sleeps 7 hours per night. Nutrition: balanced diet and no supplemental vitamins & iron. The medical issues the patient is following up for inc lude All identified problems below, blood sugar issues, cardiac issues, high blood pressure and high cholesterol. 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, 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, without long-term current use of insulin, Coronary artery disease, occlusive, Hypoxia, Vitamin D deficiency, unspecified, BPH (benign prostatic hyperplasia) (600.90) [facility] Annotation/Addendum On: 26-Mar-2016 12:22 Encounter Diagnosis: COPD, mild End: 26-Mar-2016 12:29 [facility] Office Visit On: 09-Mar-2016 13:27 Encounter Reason: Nurse procedure visit - Reason for visit: overnight pulse oximetry.Encounter Diagnosis: COPD, mild End: 09-Mar-2016 15:07 [facility] Office Visit On: 04-Mar-2016 10:09 Encounter Reason: Follow up for chronic medical issues - The patient feels well with minor complaints (came home from hospital with oxygen, but doesn't undestand why during the day he needs it because he doesn't need it, End: 04-Mar-2016 12:42 but he does use it at night.....may need a new rxwas on potassium but it ran out but do you want him on it still?), has good energy level and is sleeping well. Patient has been compliant with instructi ons. Current medication use: compliant with dosing regimen. Patient sleeps 7 hours per night. Nutrition: balanced diet. The medical issues the patient is following up for include blood sugar issues, high blood pressure and high cholesterol. weight :. 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, Mixed hyperlipidemia (272.2), 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, without long-term current use of insulin [facility] Office Visit On: 17-Jan-2016 13:20 Encounter Reason: Transition into care - The patient is transitioning into care from a hospital and a summary of care was reviewed .Encounter Diagnosis: Chronic kidney disease, stage 3, Fluid overload, Ascites, Atrial fibrillation, unspecified type, End: 17-Jan-2016 13:48 Nonsmoker, Acute on chronic diastolic congestive heart failure, BPH (benign prostatic hyperplasia) (600.90), Thrush, Therapeutic drug monitoring [facility] Office Visit On: 07-Jan-2016 9:55 Encounter Reason: Edema - Symptoms include edema and weight gain. The edema involves the entire body. Onset was gradual. The symptoms occur constantly. The episodes occur daily. The patient describes this as worsening. A End: 07-Jan-2016 10:50 ssociated symptoms include dyspnea and ascites. Previous presentation included bilateral lower extremity edema, scrotal edema, generalized edema, weight gain and dyspnea. Note for Edema: Was in hospit al around , had afib and wt gain. Only taking 40mg lasix bid. Noted increase abdominal girth, increased lower extremity edema, increase SOB. Recent trip to [place] Encounter Diagnosis: Edema extremities, Fluid overload, Atrial fibrillation, unspecified type, Ascites, Chronic kidney disease, stage 3 [facility] Office Visit On: 02-Dec-2015 10:55 Encounter Reason: Follow up tests - Date: (11/07/15 labs)., [ADDITIONAL REASON] Follow up for chronic medical issues - The patient does not feel well, has decre End: 02-Dec-2015 18:18 ased energy level and is sleeping poorly. Patient has been compliant with instructions. Current medication use: no side effects and compliant with dosing regimen. Patient sleeps 6 hours per night. Nutri tion: inappropriate diet and no supplemental vitamins & iron. The medical issues the patient is following up for include All identified problems below, blood sugar issues, cardiac issues, high blood pressure and high cholesterol. weight :. Encounter Diagnosis: Diabetes mellitus type 2, uncontrolled, without complications, Renal insufficiency, Bilateral carotid artery occlusion, Chronic anticoagulation, Mixed hyperlipidemia (272.2), Hypertensive heart disease (402.90), Atrial fibrillation, unspecified type, Nonsmoker, BMI 37.0-37.9, adult, Vitamin D deficiency, unspecified [facility] Office Visit On: 07-Nov-2015 10:47 Encounter Reason: Annual Medicare Exam - The patient had reviewed and updated the family history, medication/s, past medical history and social history. Yes the patient did have a mini mental status exam done today. The End: 07-Nov-2015 11:30 activities of daily living the patient needs help with are none. The patient has driven in past 6 months and put area rugs through house, but the patient has not had fecal incontinence, had urinary inco ntinence, missed or ran out of medications to soon, fallen in the past 6 months, gotten lost, has a medalert necklace or bracelet or put handrails in bathroom. The patient has completed the following pr eventative measures: PSA testing (1yr) and colonoscopy (1yr). The patient does have durable power of employee benefits attorney and living will. The patient has noticed lack of energy. Other providers contributing to the patient's care are beef ribber and urologist. Encounter Diagnosis: Encounter for Medicare annual wellness exam, Screening for prostate cancer, Encounter for screening for malignant neoplasm of colon (Renamed from Special screening for malignant neoplasms, colon), BMI 37.0-37.9, adult, Nonsmoker , Diabetes mellitus type 2, uncontrolled, without complications, Acute systolic congestive heart failure [facility] Office Visit On: 25-Oct-2015 10:01 Encounter Reason: Follow up Hypertension - blood pressure range : (120's to 130's /70's).Encounter Diagnosis: Hypertension with renal disease, Atrial fibrillation, unspecified type, Non morbid obesity, unspecified obesity type End: 25-Oct-2015 10:53 [facility] Office Visit On: 10-Oct-2015 7:26 Encounter Reason: Follow up for chronic medical issues - The patient does not feel well, has decreased energy level and is sleeping poorly. Patient has been compliant with instructions. Current medication use: no side ef End: 10-Oct-2015 15:38 fects and compliant with dosing regimen. Patient sleeps 6 hours per night. Nutrition: balanced diet and no supplemental vitamins & iron. The medical issues the patient is following up for include Al l identified problems below, blood sugar issues, cardiac issues, depression, high blood pressure and high cholesterol.Encounter Diagnosis: Atrial fibrillation, unspecified type, Hypertension with renal disease, Acute on chronic systolic heart failure , Elbow mass, left [facility] Office Visit On: 08-Oct-2015 8:55 Encounter Reason: Hypertension - Symptoms do not include headache, confusion, visual disturbance, dizziness or shortness of breath. Recent blood pressure has been mostly > 150. Associated symptoms do not include chest End: 09-Oct-2015 0:07 pain, claudication, near syncope, syncope, weakness, paresthesias or edema. Previous presentation included an elevated blood pressure during the examination and an elevated blood pressure from an outside reading.Encounter Diagnosis: Irregular heart beat, Atrial fibrillation, unspecified type, Acute on chronic systolic heart failure, Hypertension with renal disease [facility] Phone Encounter On: 23-Sep-2015 14:48 Encounter Diagnosis: Unspecified Diagnosis End: 23-Sep-2015 14:57 [facility] Office Visit On: 05-Sep-2015 10:04 Encounter Reason: Follow up Hypertension - blood pressure range : (I check them on/off and they seem to be in normal range for the most part).Encounter Diagnosis: Hypertension with renal disease, Atrial fibrillation, unspecified type, End: 05-Sep-2015 11:06 AK (actinic keratosis) [facility] Office Visit On: 22-Aug-2015 10:09 Encounter Reason: Follow up Hypertension - blood pressure range : (been good at home).Encounter Diagnosis: Chronic kidney disease, stage 3, Hypertension with renal disease, Bilateral edema of lower extremity End: 22-Aug-2015 11:18 [facility] Office Visit On: 25-Jul-2015 10:18 Encounter Reason: Transition into care - The patient is transitioning into care from a hospital and a summary of care was reviewed . Note for Transition into care: was in [facility] 2 weeks for fluid and afibEncounter Diagnosis: End: 25-Jul-2015 11:17 Atrial fibrillation, unspecified type, Bilateral edema of lower extremity, Acute on chronic systolic heart failure, Hypertension with renal disease, Coronary atherosclerosis of [place]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, Chronic kidney disease, stage 3 [facility] Office Visit On: 08-Jul-2015 15:00 Encounter Reason: Testicular Pain - No changes in management were made at the last visit. Symptoms include testicular pain, urinary frequency and dysuria. Pain is located in the symmetrically. The patient describes the p End: 08-Jul-2015 17:35 ain as aching. There is no known event that preceded symptom onset. The symptoms occur constantly., [ADDITIONAL REASON] Follow up tests - Date: (07/08/15). Encounter Diagnosis: Acute on chronic systolic heart failure, Short of breath on exertion, Bilateral edema of lower extremity, Atrial fibrillation, unspecified type [facility] Phone Encounter On: 05-Jul-2015 13:41 Encounter Diagnosis: Renal insufficiency End: 05-Jul-2015 13:42 [facility] Office Visit On: 04-Jul-2015 9:47 Encounter Reason: Urinary problems - The onset of the urinary problems has been sudden and they have been occurring in a persistent pattern for weeks. The course has been recurrent. The urinary problems are described as End: 04-Jul-2015 14:28 severe. The urinary problem is characterized as frequency, hesitancy and urgency., [ADDITIONAL REASON] Testicular Pain - No changes in management were made at the last visit. Symptoms include testicular pain, urinary frequency and dysuria. Pain is located in the symmetrically. The patient describes the pain as aching. There is no known event that preceded symptom onset. The symptoms occur constantly. Encounter Diagnosis: Hypertension with renal disease, Atrial fibrillation, unspecified type, Bilateral edema of lower extremity, Short of breath on exertion, Renal insufficiency, Acute on chronic systolic heart failure [facility] Phone Encounter On: 26-Jun-2015 14:12 Encounter Diagnosis: Hypertension with renal disease End: 26-Jun-2015 14:14 [facility] Office Visit On: 26-Jun-2015 11:12 Encounter Reason: Follow up tests - Date: (06/25/15 blood work).Encounter Diagnosis: Renal insufficiency, Short of breath on exertion, Bilateral edema of lower extremity, Atrial fibrillation, unspecified type, Hypotension due to drugs End: 26-Jun-2015 12:36 [facility] Refill Request On: 26-Jun-2015 9:09 Encounter Diagnosis: Post-nasal drainage End: 26-Jun-2015 9:21 [facility] Office Visit On: 13-Jun-2015 12:00 Encounter Reason: Follow up tests - Date: (06/12/15 labs).Encounter Diagnosis: Bilateral edema of lower extremity, Short of breath on exertion, Renal insufficiency, Hypernatremia, Post-nasal drainage End: 13-Jun-2015 12:33 [facility] Office Visit On: 07-Jun-2015 10:20 Encounter Reason: Follow up acute care visit - The patient feeling better since last seen. Patient has been compliant with instructions. Current medication use: no side effects and compliant with dosing regimen. Patient End: 07-Jun-2015 11:34 sleeps 7 hours per night. Nutrition: inadequate caloric intake (says decreased appitite)., [ADDITIONAL REASON] Follow up tests - Date: (05/31/15). Encounter Diagnosis: Short of breath on exertion, Therapeutic drug monitoring, Non morbid obesity, unspecified obesity type, Bilateral edema of lower extremity, Renal insufficiency, Hypernatremia [facility] Office Visit On: 31-May-2015 11:18 Encounter Reason: Incontinence - No changes in management were made at the last visit. Symptoms include urinary incontinence. The patient describes the incontinence as moderate volume. Onset was sudden week(s) ago. The p End: 31-May-2015 16:31 atient describes this as severe and worsening., [ADDITIONAL REASON] Difficulty breathing - The difficulty breathing has been occurring in a persistent pattern for weeks. The course has been recurrent. The difficulty breathing is mild to moderate. Th e difficulty breathing occurs when lying down. , [ADDITIONAL REASON] Sleep Disturbance - The onset of the sleep disturbance has been sudden and has b een occurring in a persistent pattern. The course has been constant. The sleep disturbance is described as moderate. The menstrual problem is characterized as restlessness and vivid dreams. Encounter Diagnosis: Coronary atherosclerosis of [place]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, Apnea, BPH (benign prostatic hyperplasia) (600.90), Other urinary incontinence, Bilateral edema of lower extremity, Short of breath on exertion, Non morbid obesity, unspecified obesity type, Therapeutic drug monitoring [facility] Office Visit On: 10-May-2015 10:16 Encounter Diagnosis: Atrial fibrillation, unspecified type, Coronary atherosclerosis of [place]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 (414.01), Acute systolic congestive heart failure, Bilateral edema of lower extremity, Abnormal blood chemistry, Renal insufficiency End: 10-May-2015 11:39 [facility] Phone Encounter On: 06-May-2015 16:20 Encounter Diagnosis: Abnormal blood chemistry End: 06-May-2015 16:23 [facility] Office Visit On: 06-May-2015 10:06 Encounter Diagnosis: Bilateral edema of lower extremity, Acute systolic congestive heart failure, Atrial fibrillation, unspecified type, Abnormal blood chemistry, Coronary atherosclerosis of [place]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 (414.01) End: 06-May-2015 10:58 [facility] Phone Encounter On: 03-May-2015 17:03 Encounter Diagnosis: Atrial fibrillation, unspecified type End: 03-May-2015 17:04 [facility] Phone Encounter On: 02-May-2015 15:12 Encounter Diagnosis: Bilateral edema of lower extremity End: 02-May-2015 15:13 [facility] Lab Order On: 25-Apr-2015 17:38 Encounter Diagnosis: Acute systolic congestive heart failure End: 25-Apr-2015 17:39 [facility] Office Visit On: 24-Apr-2015 10:54 Encounter Reason: Follow up hospital - Reason for ER visit: note: (afib and chf was there 2 days). The patient feels well with minor complaints, has decreased energy level and is sleeping well. Patient has been compliant End: 24-Apr-2015 15:15 with instructions. Current medication use: no side effects and compliant with dosing regimen. Patient sleeps 8 hours per night. Nutrition: poor nutrition.Encounter Diagnosis: Ventricular tachycardia (427.1), Bilateral edema of lower extremity, Atrial fibrillation, unspecified type, Chronic anticoagulation, Acute systolic congestive heart failure, Diabetes mellitus type 2, uncontrolled, without complications [facility] Office Visit On: 18-Apr-2015 10:05 Encounter Reason: Follow up for chronic medical issues - The patient does not feel well, has decreased energy level and is sleeping poorly. Patient has been compliant with instructions. Current medication use: no side ef End: 18-Apr-2015 12:15 fects and compliant with dosing regimen. Patient sleeps 6 hours per night. Nutrition: balanced diet and no supplemental vitamins & iron. The medical issues the patient is following up for include Al l identified problems below, blood sugar issues, cardiac issues, depression, high blood pressure and high cholesterol.Encounter Diagnosis: Diabetes mellitus type 2, uncontrolled, without complications, Hypertension with renal disease, Vitamin D deficiency, unspecified, Mixed hyperlipidemia (272.2), Atherosclerosis of [place] coronary artery without angina pectoris, unspecified whether [place] or transplanted heart, History of CVA in adulthood, Shortness of breath on exertion, Bilateral edema of lower extremity, Elevated PSA, Apnea, Bilateral carotid artery occlusion, URI, acute [facility] Office Visit On: 16-Jan-2014 10:50 Encounter Reason: Follow up tests - Date: (01/16/14 over night pusle ox).Encounter Diagnosis: Hypoxia, Snores, Apnea, Need for vaccination against Streptococcus pneumoniae End: 17-Jan-2014 21:02 [facility] Office Visit On: 03-Jan-2014 13:28 Encounter Diagnosis: COPD (496.) End: 08-Jan-2014 18:29 [facility] Office Visit On: 28-Dec-2013 8:37 Encounter Reason: Nurse procedure visit - Reason for visit: six minute walk test.Encounter Diagnosis: COPD (496.) End: 28-Dec-2013 10:40 [facility] Office Visit On: 23-Nov-2013 10:08 Encounter Reason: Follow up tests - Date: (10/23/13 labs)., [ADDITIONAL REASON] Follow up for chronic medical issues - The patient feels well with minor complai End: 23-Nov-2013 15:24 nts, has decreased energy level and is sleeping well. Patient has been compliant with instructions. Current medication use: no side effects and compliant with dosing regimen. Patient sleeps 6 hours per night. Nutrition: inappropriate diet and no supplemental vitamins & iron. The medical issues the patient is following up for include All identified problems below, blood sugar issues, cardiac issues , high blood pressure and high cholesterol. blood pressure range :, fasting blood sugars : and weight :. Encounter Diagnosis: Coronary atherosclerosis of [place]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 (414.01), BMI 37.0-37.9, ADULT (V85.37), Hypertension with Heart and Renal Disease (404.93), Hyperlipidemia (272.4), Diabetes type II,uncontrolled, no comp (250.02), Gilbert's disease (277.4), COPD (496.) [facility] Office Visit On: 19-Oct-2013 10:22 Encounter Reason: Annual Medicare Exam - The patient had reviewed and updated the family history, medication/s, past medical history and social history. Yes the patient did have a mini mental status exam done today. The End: 19-Oct-2013 11:11 patient would like education and information on weight loss and exercise programs. The activities of daily living the patient needs help with are none. The patient has had fecal incontinence, had urinar y incontinence, driven in past 6 months, fallen in the past 6 months (tripped on cat food) and put area rugs through house, but the patient has not missed or ran out of medications to soon, gotten lost, has a medalert necklace or bracelet or put handrails in bathroom. The patient has completed the following preventative measures: PSA testing (september 2012) and colonoscopy (around 10 years). The patient d oes have durable power of employee benefits attorney and living will. The patient has noticed feeling situation is hopeless (recently). Other providers contributing to the patient's care are [facility] (Dr. Greenfield), uro logist and other: ([facility] - [facility] - Dr Quezada).Encounter Diagnosis: Annual Medicare Physical (V70.0), BMI 37.0-37.9, ADULT (V85.37), Coronary atherosclerosis of [place]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 (414.01) [facility] Office Visit On: 24-Aug-2013 11:12 Encounter Reason: Follow up for chronic medical issues - The patient does not feel well, has decreased energy level and is sleeping poorly. Patient has been compliant with instructions. Current medication use: no side ef End: 24-Aug-2013 12:41 fects and compliant with dosing regimen. Patient sleeps 5 hours per night. Nutrition: inappropriate diet. The medical issues the patient is following up for include All identified problems below, cardia c issues, COPD, high blood pressure, high cholesterol and other., [ADDITIONAL REASON] Follow up tests - Date: (08/21/13 labs). Encounter Diagnosis: Diabetes mellitus without complication (Renamed from Diabetes mellitus with no complication), Coronary atherosclerosis of [place]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 (414.01), Hyperlipidemia (272.4), Hypertension with Heart and Renal Disease (404.93), BRONCHITIS, NOT SPECIFIED ACUTE OR CHRONIC (490.), Abnormal Lung Sounds/Rales (786.7), Gilbert's disease (277.4), Unspecified vitamin D deficiency (268.9), Elavated PSA (790.93) [facility] Office Visit On: 15-May-2013 10:10 Encounter Reason: Follow up for chronic medical issues - The patient feels well with minor complaints, has decreased energy level and is sleeping poorly. Patient has been compliant with instructions. Current medication u End: 15-May-2013 11:34 se: no side effects and compliant with dosing regimen. Patient sleeps 7 hours per night. Nutrition: balanced diet. The medical issues the patient is following up for include All identified problems belo w, blood sugar issues, high blood pressure and high cholesterol. blood pressure range :.Encounter Diagnosis: Coronary atherosclerosis of [place]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 (414.01), Hypertension with Heart and Renal Disease (404.93), Diabetes mellitus without complication (Renamed from Diabetes mellitus with no complication), Hyperlipidemia (272.4), Edema (782.3) [facility] Office Visit On: 20-Mar-2013 10:40 Encounter Diagnosis: Hypertension with Heart and Renal Disease (404.93), CVA (cerebral infarction) (434.91), Coronary atherosclerosis of [place]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 (414.01) End: 20-Mar-2013 11:53 [facility] Office Visit On: 15-Feb-2013 14:36 Encounter Reason: Transition into care - The patient most recently received care from a hospital (in hosp from 02/12/13 to 02/14/13 for a minor stroke.).Encounter Diagnosis: Abnormal brain MRI (793.0), End: 15-Feb-2013 15:50 Hypertension with Heart and Renal Disease (404.93), Coronary atherosclerosis of [place]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 (414.01), CVA (cerebral infarction) (434.91), Mixed hyperlipidemia (272.2), Diabetes mellitus without complication (250.00) [facility] Refill Request On: 14-Feb-2013 16:01 Encounter Diagnosis: CVA (cerebral infarction) (434.91), BPH (benign prostatic hyperplasia) (600.90), Hyperlipidemia (272.4) End: 14-Feb-2013 16:07 [facility] Office Visit On: 17-Oct-2012 10:28 Encounter Reason: Follow up for chronic medical issues - The patient feels well with minor complaints, has decreased energy level and is sleeping well. Patient has been compliant with instructions. Current medication use End: 17-Oct-2012 11:52 : no side effects and compliant with dosing regimen. Patient sleeps 6 hours per night. Nutrition: inappropriate diet and no supplemental vitamins & iron. The medical issues the patient is following up for include All identified problems below, blood sugar issues, high blood pressure and high cholesterol., [ADDITIONAL REASON] Annual Medicare Exam - The patient had reviewed and updated the family history, medication/s, past medical history and social history. Yes the patient did have a mini mental status exam done today. The patient would like education and information on weight loss and exercise program s. The activities of daily living the patient needs help with are none. The patient has had fecal incontinence, had urinary incontinence, driven in past 6 months and put area rugs through house, but the patient has not missed or ran out of medications to soon, fallen in the past 6 months, gotten lost, has a medalert necklace or bracelet or put handrails in bathroom. The patient has completed the [facility] preventative measures: PSA testing (september 2012) and colonoscopy (around 10 years). The patient does have durable power of employee benefits attorney and living will. The patient has noticed nothing from the geriatic depression scale. Other providers contributing to the patient's care are beef ribber (Dr. Greenfield) and urologist. 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 Patient has been compliant with instructions. Current medication use: no side effects. Patient sleeps 7 (not solid sl End: 18-Jul-2012 14:45 eep, cats wake him up ) hours per night. Impact of disease: no overall impact. 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 Patient has been compliant with instructions. Current End: 22-Apr-2012 10:10 medication use: no side effects and compliant with dosing regimen. Patient sleeps 7 hours per night. Nutrition: inappropriate diet and no supplemental vitamins & iron. 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 Patient has been compliant with instructions. Current medication use: no side ef End: 21-Jan-2012 14:35 fects and compliant with dosing regimen. Patient sleeps 6 hours per night. Nutrition: inadequate caloric intake and no supplemental vitamins & iron. The medical issues the patient is following up fo r include All identified problems below, blood sugar issues, high blood pressure and high cholesterol. blood pressure range : and weight :., [ADDITIONAL REASON] Follow up tests - Date: (01/18/12 labs). Encounter Diagnosis: Hyperlipidemia (272.4), Unspecified vitamin D deficiency (268.9), Hypertension with Renal Disease (403.90), Diabetes type II,uncontrolled, no comp (250.02), Coronary atherosclerosis of [place]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 (414.01), Atrial fibrillation (427.31), Benign essential hypertension (401.1), COPD (496.), Lesion-Unknown behavior (238.2) [facility] Office Visit On: 21-Oct-2011 15:05 Encounter Reason: Follow up for chronic medical issues - The patient feels well with minor complaints, has good energy level and is sleeping well. Patient has been compliant with instructions. Current medication use: no End: 23-Oct-2011 10:56 side effects and compliant with dosing regimen. Patient sleeps 7 hours per night. Nutrition: balanced diet and supplemental vitamins. The medical issues the patient is following up for include All ident ified problems below, blood sugar issues, high blood pressure and high cholesterol. blood pressure range :, fasting blood sugars : and weight :., [ADDITIONAL REASON] Follow up tests - Date: (10/15/11 labs). Encounter Diagnosis: Diabetes mellitus without complication (250.00), Hypertensive heart disease (402.90), Hypertension with Renal Disease (403.90), Benign essential hypertension (401.1), Gilbert's disease (277.4), Hyperlipidemia (272.4), Atrial fibrillation (427.31), COPD (496.), Coronary atherosclerosis of [place]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 (414.01) [facility] Phone Encounter On: 12-Oct-2011 16:58 Encounter Diagnosis: Well Male Exam (V70.0) End: 12-Oct-2011 17:00 [facility] Office Visit On: 26-Aug-2011 15:19 Encounter Reason: Follow up Hypertension - blood pressure range : (not checking at home)., [ADDITIONAL REASON] Follow up Meds - The patient feels well with minor complaints, has good energy l End: 26-Aug-2011 16:12 evel and is sleeping well. Patient has been compliant with instructions. Current medication use: no side effects and compliant with dosing regimen. Patient sleeps 7 hours per night. Nutrition: balanced diet. Encounter Diagnosis: Hypertensive heart disease (402.90), Obesity, unspecified (278.00) [facility] Office Visit On: 05-Aug-2011 15:02 Encounter Reason: Follow up Hypertension - The patient has experienced follow up hypertension for years.Encounter Diagnosis: Hypertension with Renal Disease (403.90) End: 05-Aug-2011 16:18 [facility] Office Visit On: 15-Jul-2011 15:10 Encounter Reason: Follow up tests - Date: (07/06/11 labs).Encounter Diagnosis: Elavated PSA (790.93), Gilbert's disease (277.4) End: 15-Jul-2011 15:55 [facility] Office Visit On: 06-Jul-2011 15:35 Encounter Reason: Follow up tests - Date: (06/24/11 labs).Encounter Diagnosis: Hypertension with Renal Disease (403.90), Elavated PSA (790.93), Unspecified vitamin D deficiency (268.9), Hyperglycemia (790.29) End: 06-Jul-2011 17:56 [facility] Office Visit On: 18-Jun-2011 11:17 Encounter Reason: Follow up for chronic medical issues - The patient feels well with minor complaints, has good energy level and is sleeping poorly. Patient has been compliant with instructions. Current medication use: n End: 18-Jun-2011 12:00 o side effects and compliant with dosing regimen. Patient sleeps 6 hours per night. Nutrition: inappropriate diet and no supplemental vitamins & iron. The medical issues the patient is following up for include All identified problems below, blood sugar issues, high blood pressure and high cholesterol.Encounter Diagnosis: Diabetes mellitus without complication (250.00), Atrial fibrillation (427.31), COPD (496.), Coronary atherosclerosis of [place]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 (414.01), Mixed hyperlipidemia (272.2), Hypertensive heart disease (402.90), SCREENING FOR CANCER OF THE PROSTATE (V76.44), Obesity, unspecified (278.00), Unspecified vitamin D deficiency (268.9) [facility] Office Visit On: 09-Mar-2011 15:48 Encounter Reason: Follow up for chronic medical issues - The patient feels well with minor complaints, has good energy level and is sleeping well. Patient has been compliant with instructions. Current medication use: no End: 09-Mar-2011 16:52 side effects and compliant with dosing regimen. Patient sleeps 6 hours per night. Nutrition: inappropriate diet and no supplemental vitamins & iron. The medical issues the patient is following up fo r include All identified problems below, blood sugar issues, high blood pressure and high cholesterol.Encounter Diagnosis: Diabetes mellitus without complication (250.00), Hypertensive heart disease (402.90), COPD (496.), Mixed hyperlipidemia (272.2) , Atrial fibrillation (427.31), Coronary atherosclerosis of [place]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 (414.01) [facility] Office Visit On: 06-Feb-2011 9:18 Encounter Reason: Nurse procedure visit - The symptoms have been associated with other (6 min walk assessment).Encounter Diagnosis: COPD (496.) End: 06-Feb-2011 13:21 [facility] Office Visit On: 03-Dec-2010 14:20 Encounter Diagnosis: Actinic keratosis (702.0), Diabetes mellitus without complication (250.00) End: 03-Dec-2010 15:21 [facility] Office Visit On: 26-Nov-2010 15:19 Encounter Reason: Follow up for chronic medical issues - The patient does not feel well, has decreased energy level and is sleeping poorly. Patient has been compliant with instructions. Current medication use: no side ef End: 27-Nov-2010 8:43 fects and compliant with dosing regimen. Patient sleeps 6 hours per night. Nutrition: inappropriate diet and no supplemental vitamins & iron. The medical issues the patient is following up for inclu de All identified problems below, high blood pressure and high cholesterol. blood pressure range : and weight :., [ADDITIONAL REASON] Follow up tests - Date: (11/24/10 labs). Encounter Diagnosis: Hypertensive heart disease (402.90), Mixed hyperlipidemia (272.2), Obesity, morbid (278.01), Atrial fibrillation (427.31), Coronary atherosclerosis of unspecified type of vessel, [place] or graft (414.00), COPD (496.), Hyperglycemia (790.29), 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 of diabetes mellitus (V18.0) [facility] Annotation/Addendum On: 24-Oct-2010 15:56 Encounter Diagnosis: Hypertensive heart disease (402.90) End: 24-Oct-2010 15:59 [facility] Phone Encounter On: 31-Jul-2010 15:30 Encounter Diagnosis: Unspecified vitamin D deficiency (268.9) End: 31-Jul-2010 15:33 [facility] Office Visit On: 30-Jul-2010 14:33 Encounter Reason: Follow up for chronic medical issues - The patient feels well with minor complaints, has decreased energy level and is sleeping poorly. Patient has been compliant with instructions. Current medication u End: 31-Jul-2010 7:52 se: no side effects and compliant with dosing regimen. Patient sleeps 7 hours per night. Nutrition: inappropriate diet and no supplemental vitamins & iron. The medical issues the patient is followin g up for include All identified problems below, COPD, high blood pressure and high cholesterol. blood pressure range : and weight :.Encounter Diagnosis: Benign essential hypertension (401.1), Hypertensive heart disease (402.90), Unspecified vitamin D deficiency (268.9), Coronary atherosclerosis of unspecified type of vessel, [place] or graft (414.00), Atrial fibrillation (427.31), Obesity, morbid (278.01), Mixed hyperlipidemia (272.2) [facility] Erroneous Entry On: 23-Jul-2010 9:02 Encounter Diagnosis: Mixed hyperlipidemia (272.2) End: 23-Jul-2010 9:03 [facility] Office Visit On: 01-May-2010 12:37 Encounter Reason: Follow up Hypertension, [ADDITIONAL REASON] Follow up, Laboratory Test Results - Lab results: other. Date: (apr 2010). Current symptoms/reason for visit include/s Follow up visit with no current symptoms. Encounter Diagnosis: End: 01-May-2010 13:29 Hypokalemia (276.8), Hypertensive heart disease (402.90), Mixed hyperlipidemia (272.2), Hyperglycemia (790.29) [facility] Office Visit On: 26-Mar-2010 10:35 Encounter Reason: Follow up for chronic medical issues - The patient feels well with minor complaints (feels a little off and not sure why), has decreased energy level and has good energy level. Patient has been complian End: 26-Mar-2010 11:18 t with instructions. Current medication use: no side effects and compliant with dosing regimen. Patient sleeps 6 hours per night. Nutrition: inappropriate diet and no supplemental vitamins & iron. T he medical issues the patient is following up for include All identified problems below, high blood pressure and high cholesterol.Encounter Diagnosis: Hyperlipidemia (272.4), Atrial fibrillation (427.31), Coronary atherosclerosis of unspecified type of vessel, [place] or graft (414.00), Hypertensive heart disease (402.90) [facility] Office Visit On: 25-Feb-2010 9:13 Encounter Reason: Follow up acute care visit - The patient feeling better since last seen and improving. Patient has been compliant (PT helped to strengthen but doesnt tell me what was going on) with instructions. Patien End: 25-Feb-2010 9:35 t sleeps 7 hours per night. The medical issues the patient is following up for include All identified problems below and other (knee pain).Encounter Diagnosis: Knee pain (719.46) [facility] Office Visit On: 20-Jan-2010 10:01 Encounter Reason: Follow up, Diagnostic Procedure Results - Diagnostic tests include X-Ray (knee). Date: (01/09/10). Follow up visit with no current symptoms. There is no family history of breast cancer, cardiovascular di End: 20-Jan-2010 10:46 sease, cystic fibrosis, Down's syndrome, mental retardation or myocardial infarction before age 55. Past medical history includes chronic obstructive lung disease, hypertension and other (cholesterol).Encounter Diagnosis: Knee pain (719.46) [facility] Office Visit On: 07-Jan-2010 8:52 Encounter Reason: Knee Pain - The onset of the knee pain has been sudden and has been occurring in a persistent pattern for 6 days. The course has been constant. The knee pain is moderate. The knee pain is characterized End: 07-Jan-2010 9:32 as a dull aching. The knee pain is described as being located in the entire knee. The knee pain is aggravated by physical activity and any movement. There were no relieving factors. The symptoms have be en associated with painful ROM ,warmth and difficulty arising from chair, while the symptoms have not been associated with pain under patella ,popping/crepitus or fever. There were no previous diagnosti c tests. There has been no previous physical therapy. Assistive devices include cane. Encounter Diagnosis: Knee pain (719.46) [facility] Office Visit On: 27-Nov-2009 11:27 Encounter Diagnosis: Mixed hyperlipidemia (272.2), Hypertensive heart disease (402.90), Obesity, morbid (278.01) End: 27-Nov-2009 11:38 [facility] Office Visit On: 16-Oct-2009 11:32 Encounter Reason: Follow up for chronic medical issues - The patient feels well with minor complaints (said he has a cold-) ,has decreased energy level and is sleeping poorly. Patient has been compliant with instructions End: 16-Oct-2009 12:32 . Current medication use: no side effects and non-compliant with dosing regimen (has not had his diovan for last couple of days per pt.). Patient sleeps 6 hours per night. Nutrition: inappropriate diet and no supplemental vitamins & iron. The medical issues the patient is following up for include All identified problems below ,cardiac issues ,COPD ,high blood pressure and high cholesterol. , [ADDITIONAL REASON] Follow up, Laboratory Test Results - Date: (10/11/11). Encounter Diagnosis: Hypertensive heart disease (402.90), Coronary atherosclerosis of [place]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 (414.01), Atrial fibrillation (427.31), Hyperlipidemia (272.4), COPD (496.) [facility] Office Visit On: 11-Jul-2009 11:02 Encounter Reason: Follow up tests - Diagnostic tests include other (renal dopplers). Date: (06/20/09). Follow up visit with no current symptoms. , [ADDITIONAL REASON] Follow up Hypertension - The patient has experienced follow up hypertension for End: 11-Jul-2009 11:35 25 years. The symptoms have been associated with excessive caffeine intake (coffee and iced tea) and family history of hypertension. Note for Follow up Hypertension: Pt does not keep home bp diaries Encounter Diagnosis: Hypertensive heart disease (402.90), Obesity, unspecified (278.00) [facility] Office Visit On: 14-Jun-2009 10:37 Encounter Reason: Follow up for chronic medical issues - The patient feels well with minor complaints ,has decreased energy level and is sleeping poorly. Patient has been compliant with instructions. Current medication u End: 14-Jun-2009 11:27 se: no side effects and compliant with dosing regimen. Patient sleeps 6 hours per night. Nutrition: inappropriate diet and no supplemental vitamins & iron. The medical issues the patient is followin g up for include All identified problems below ,cardiac issues ,COPD ,high blood pressure and high cholesterol. Encounter Diagnosis: Hyperlipidemia (272.4), Hypertensive heart disease (402.90), Coronary atherosclerosis of unspecified type of vessel, [place] or graft (414.00), Atrial fibrillation (427.31), Hypocalcemia (275.41), COPD (496.), Elavated PSA (790.93), Ventricular tachycardia (427.1), Grieving Reaction (309.0) [facility] Office Visit On: 25-Mar-2009 10:20 Encounter Reason: Follow up, Diagnostic Procedure Results - Diagnostic tests include chest X-ray (03-19-09). , [ADDITIONAL REASON] Follow up, Laboratory Test Results - Date: (03-19-09). , End: 25-Mar-2009 10:39 [ADDITIONAL REASON] Follow up acute care visit - The patient feeling better since last seen. Patient has been compliant with instructions. Current medication use: no side effects and compliant with dos ing regimen. Patient sleeps 7 hours per night. The medical issues the patient is following up for include All identified problems below. Encounter Diagnosis: Hand Pain (719.44), Gout, unspecified (274.9) [facility] Office Visit On: 19-Mar-2009 10:01 Encounter Reason: Hand Pain - The onset of the hand pain has been acute and has been occurring in a persistent pattern for 3 days. The course has been worsening. The hand pain is moderate to severe. The hand pain is joy End: 19-Mar-2009 12:43 acterized as a dull aching (when relaxed, but sharp pain when doing ADL's.). The hand pain is described as being located in the entire hand. The hand pain is aggravated by physical activity and any move ment. The pain has been relieved by medication (has tried Advil and Theragesic- both with minimal relief). The symptoms have been associated with muscle cramps. , [ADDITIONAL REASON] Shortness of breath - The onset of the shortness of breath has been acute and has been occurring in a persistent pattern for 4 days. The course has been recurrent. The shortness of breath is mild. The shortness of breath occurs with normal activities and occurs on exertion. There has been no associated coughing ,fever / chills ,mucoid/mucopurulent sputum or wheezing. Encounter Diagnosis: SHORTNESS OF BREATH (786.09), Hand Pain (719.44) [facility] Phone Encounter On: 21-Aug-2008 11:55 [facility] End: 21-Aug-2008 11:58 Historical Summary On: 17-Aug-2008 13:10 [facility] End: 17-Aug-2008 14:14 Office Visit On: 25-Jul-2008 9:42 Encounter Reason: Follow up for chronic medical issues - The patient feels well with minor complaints ,has decreased energy level and is sleeping well. Patient has been compliant with instructions. Current medication use End: 25-Jul-2008 12:39 : no side effects and compliant with dosing regimen. Patient sleeps 6 hours per night. Nutrition: inappropriate diet and no supplemental vitamins & iron. The medical issues the patient is following up for include All identified problems below ,gastric reflux ,high blood pressure and high cholesterol. Encounter Diagnosis: Hypertensive heart disease (402.90), Coronary atherosclerosis of [place]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 (414.01), Hyperlipidemia (272.4), COPD (496.), Atrial fibrillation (427.31), Calf pain (729.5), Unspecified vitamin D deficiency (268.9), Elavated PSA (790.93), Hypokalemia (276.8) [facility] Historical Summary On: 13-Jun-2008 12:21 [facility] End: 13-Jun-2008 12:22 Nurse Visit On: 16-May-2008 9:53 Encounter Diagnosis: COPD (496.) End: 16-May-2008 16:07 [facility] Historical Summary On: 14-May-2008 16:50 [facility] End: 14-May-2008 16:51 Office Visit On: 23-Mar-2008 9:55 Encounter Reason: Follow up for chronic medical issues - The patient feels well with minor complaints ,has good energy level and is sleeping well. Patient has been compliant with instructions. Current medication use: no End: 23-Mar-2008 10:30 side effects and compliant with dosing regimen. Patient sleeps 6 hours per night. Nutrition: inappropriate diet and supplemental vitamins. The medical issues the patient is following up for include All identified problems below ,high blood pressure and high cholesterol. Encounter Diagnosis: Hypertensive heart disease (402.90), Coronary atherosclerosis of unspecified type of vessel, [place] or graft (414.00), Atrial fibrillation (427.31), Mixed hyperlipidemia (272.2), COPD (496.) [facility] Office Visit On: 13-Mar-2008 10:08 Encounter Reason: Cough - The onset of the cough has been gradual and 2 weeks ago. The cough is characterized as productive of mucoid sputum. The amount of sputum produced is copious. The cough occurs all the time. The s End: 13-Mar-2008 13:17 ymptoms are aggravated by supine posture and particular position, but not by meals. The symptoms have been associated with headache ,hoarseness and runny nose, while the symptoms have not been associate d with fever ,sore throat or wheezing. the color of the sputum is clear. Encounter Diagnosis: BRONCHITIS, NOT SPECIFIED ACUTE OR CHRONIC (490.) [facility] Office Visit On: 28-Dec-2007 9:37 Encounter Reason: Follow up for chronic medical issues - The patient feels well with minor complaints (knee pain) ,has good energy level and is sleeping well. Patient has been compliant with instructions. Current medicat End: 28-Dec-2007 11:46 ion use: no side effects and compliant with dosing regimen. Patient sleeps 7 hours per night. Nutrition: inappropriate diet and supplemental vitamins. The medical issues the patient is following up for include All identified problems below ,high blood pressure and high cholesterol. blood pressure range : and weight :. Encounter Diagnosis: Hypertensive heart disease (402.90), Coronary atherosclerosis of unspecified type of vessel, [place] or graft (414.00), Atrial fibrillation (427.31), Mixed hyperlipidemia (272.2), Hyperglycemia (790.29), Unspecified vitamin D deficiency (268.9), Knee pain (719.46) [facility] Office Visit On: 01-Sep-2007 10:30 Encounter Reason: Follow up for chronic medical issues - The patient feels well with minor complaints ,has good energy level and is sleeping well. Patient has been compliant with instructions. Current medication use: no End: 01-Sep-2007 11:09 side effects and compliant with dosing regimen. Patient sleeps 6 hours per night. Nutrition: inappropriate diet and supplemental vitamins. The medical issues the patient is following up for include All identified problems below and high blood pressure. Encounter Diagnosis: Hypertensive heart disease (402.90), Hyperlipidemia (272.4), Coronary atherosclerosis of unspecified type of vessel, [place] or graft (414.00), Atrial fibrillation (427.31), Coronary atherosclerosis of [place]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 (414.01), Unspecified vitamin D deficiency (268.9), Obesity, unspecified (278.00), COPD (496.) [facility] Office Visit On: 13-Jul-2007 9:57 Encounter Reason: Follow up Hypertension - The symptoms have been associated with family history of hypertension and obesity, while the symptoms have not been associated with excessive caffeine intake. , End: 13-Jul-2007 10:40 [ADDITIONAL REASON] Muscle pain - The onset of the pain has been sudden and has been occurring in an intermittent pattern for hours. The course has been recurrent. The pain is described as a mild dull aching and cramping. The pain is located in the leg. The symptoms have no aggravating factors. The symptoms have been associated with arthralgia (STIFF--WALKING IT WILL GO AWAY BUT-- IN PAST WHEN STOPPED ZOCOR IT WENT AWAY). Encounter Diagnosis: Benign essential hypertension (401.1), Myalgia(729.1) [facility] Office Visit On: 22-Jun-2007 10:37 Encounter Reason: Follow up Meds - The patient feels well with minor complaints ,has good energy level and is sleeping well. Patient has been compliant with instructions. Current medication use: no side effects and compl End: 22-Jun-2007 11:07 iant with dosing regimen. Patient sleeps 6 hours per night. Nutrition: inadequate caloric intake ,inappropriate diet ,no supplemental vitamins & iron ,poor nutrition and supplemental vitamins. Encounter Diagnosis: Benign essential hypertension (401.1) [facility] Office Visit On: 25-May-2007 11:17 Encounter Reason: Follow up, Diagnostic Procedure Results - Diagnostic tests include other (holtor). Date: (05-16-07 on face sheet). Encounter Diagnosis: Benign essential hypertension (401.1), Unspecified vitamin D deficiency (268.9) End: 25-May-2007 11:59 [facility] Office Visit On: 04-May-2007 10:11 Encounter Reason: Follow up for chronic medical issues - The patient feels well with minor complaints ,has good energy level and is sleeping well. Patient has been compliant with instructions. Current medication use: no End: 04-May-2007 11:41 side effects and compliant with dosing regimen. Patient sleeps 7 hours per night. Nutrition: inappropriate diet and supplemental vitamins. The medical issues the patient is following up for include All identified problems below ,high blood pressure and high cholesterol. Encounter Diagnosis: Atrial fibrillation (427.31), Coronary atherosclerosis of [place]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 (414.01), Hypertensive heart disease (402.90), Unspecified vitamin D deficiency (268.9), Hyperlipidemia (272.4), COPD (496.), Ventricular tachycardia (427.1), Obesity, unspecified (278.00) [facility] Office Visit On: 24-Mar-2007 8:48 Encounter Reason: Cough - The onset of the cough has been sudden. The cough is characterized as productive of mucoid sputum. The amount of sputum produced is copious. The cough occurs all the time. The symptoms are aggra End: 24-Mar-2007 9:42 vated by supine posture and particular position, but not by meals. The symptoms have been associated with fever ,hoarseness ,runny nose and sore throat, while the symptoms have not been associated with headache. Encounter Diagnosis: Bronchitis,Acute (466.0), Wheezing (786.07), Cough (786.2) [facility] Office Visit On: 10-Mar-2007 14:55 Encounter Reason: Follow up Hypertension - blood pressure range : (130's/70's to 150's/80's). Encounter Diagnosis: Hypertensive heart disease (402.90), Calf pain (729.5) End: 10-Mar-2007 15:38 [facility] Office Visit On: 02-Mar-2007 14:04 Encounter Reason: Follow up Meds - The patient feels well with minor complaints. Patient has been compliant with instructions. Current medication use: no side effects and compliant with dosing regimen. Patient sleeps 7 h End: 02-Mar-2007 14:50 ours per night. Nutrition: balanced diet and supplemental vitamins. , [ADDITIONAL REASON] Follow up, Laboratory Test Results - Date: (02-12-07). Encounter Diagnosis: Hypertensive heart disease (402.90), Unspecified vitamin D deficiency (268.9), Calf pain (729.5), Edema (782.3) [facility] Office Visit On: 27-Jan-2007 10:46 Encounter Reason: Follow up for chronic medical issues - The patient feels well with minor complaints ,has decreased energy level and is sleeping well. Patient has been compliant with instructions. Current medication use End: 27-Jan-2007 13:25 : no side effects and experiencing side effects (a cough off and on with mucus). Patient sleeps 6 hours per night. Nutrition: balanced diet and no supplemental vitamins & iron. The medical issues th e patient is following up for include All identified problems below ,high blood pressure and high cholesterol. Encounter Diagnosis: Hypertensive heart disease (402.90), Atrial fibrillation (427.31), Coronary atherosclerosis of [place]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 (414.01), Hyperlipidemia (272.4), Cough (786.2), Unspecified vitamin D deficiency (268.9), Elavated PSA (790.93), COPD (496.) [facility] Office Visit On: 11-Oct-2006 11:20 Encounter Reason: Follow up Hypertension - The patient has experienced follow up hypertension for years. The symptoms have been associated with family history of hypertension. blood pressure range : (140/80). Encounter Diagnosis: End: 11-Oct-2006 12:07 Hypertensive heart disease (402.90) [facility] Office Visit On: 27-Sep-2006 13:29 Encounter Reason: Follow up for chronic medical issues - The patient feels well with no complaints and has good energy level (walked for hour this morning). Patient has been compliant with instructions. Current medicatio End: 27-Sep-2006 14:07 n use: experiencing side effects (edema, toprol/lotrel ?, zocor-muscle cramps) ,compliant with dosing regimen and considered effective by patient. Patient sleeps 7 hours per night. Impact of disease: no overall impact. Nutrition: balanced diet. The medical issues the patient is following up for include All identified problems below ,cardiac issues (A FIB) ,high blood pressure and high cholesterol. , [ADDITIONAL REASON] Follow up, Laboratory Test Results - Date: (09-23-06). Current symptoms/reason for visit include/s Follow up visit with no current symptoms. There is a family history of cardiovascul ar disease (father) and myocardial infarction before age 55 (father) , while there is no family history of breast cancer ,cystic fibrosis ,Down's syndrome or mental retardation. Past medical history inc ludes elevated cholesterol ,hypertension and other (AFIB). Encounter Diagnosis: Hypertensive heart disease (402.90), Coronary atherosclerosis of [place]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 (414.01), Atrial fibrillation (427.31), Hyperlipidemia (272.4), Low HDL (272.5) [facility] Office Visit On: 26-Apr-2006 10:50 Encounter Reason: Follow up, Laboratory Test Results - Current symptoms/reason for visit include/s Symptoms include chest pain (does not feel this is heart related feels like it is achey). Past medical history includes c End: 26-Apr-2006 11:58 ardiovascular disease and hypertension. , [ADDITIONAL REASON] Follow up, Diagnostic Procedure Results - Diagnostic tests include other (24 hour holter). , [ADDITIONAL REASON] Chest pain - The onset of the pain has been gradual and has been occurring in a recurrent pattern for days. The pain is described as a mild (ache -surface chest pain hand washed [place]iott ndry room and thats when pain started-- very postion related) dull ache. The pain is described as being located in the substernal area (incision area). The pain does not radiate. The pain is precipitate d by exercise. The symptoms are aggravated by exertion (movement involving chest wall or cleaning). Encounter Diagnosis: Hypertensive heart disease (402.90), Ventricular tachycardia (427.1), Chest pain (786.59), Mixed hyperlipidemia (272.2), Elavated PSA (790.93) [facility] Nurse Visit On: 26-Mar-2006 15:03 Encounter Diagnosis: Atrial fibrillation (427.31) End: 26-Mar-2006 15:48 [facility] Historical Summary On: 11-Mar-2006 12:35 Encounter Diagnosis: Unspecified Diagnosis End: 11-Mar-2006 12:36 [facility] Historical Summary On: 19-Jan-2006 21:56 [facility] End: 12-Feb-2006 15:55 Historical Summary On: 01-Jan-2006 12:08 [facility] End: 01-Jan-2006 12:10 Payers MedicareTRICARE FOR LIFE, [facility]; a guarantor
--- OUTSIDE RECORDS SUMMARY | 2018-04-29 15:47 | XMS RPT_ITS | Continuity of Care Document ---
:1940 Author Organization [facility] Address [facility]7 [facility] [address] [place] [address] Phone Care Team Providers Name Role Phone Neil DO Vicki Unavailable Milagro PHAN, Dr. Mohsen Mckenna Unavailable Physical Therapy, [facility] Unavailable Lesa Alvarado Unavailable Dr. Juan Sin DO Unavailable [facility], Diagnostic Services Unavailable Kimo Roger MD Unavailable Mata Leonard Unavailable [facility] Unavailable Kamaljit PHAN, Dr. 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) Status: Active Hypoxia (R09.02, 799.02) Comments: sleep related and wears at nightmanaged by [employer] Status: Active Influenza vaccination declined (Renamed from [...] 17-Jun-2017 Inactive Comments:on national back order DRISDOL, 66868HDZW (Oral Capsule) 1 Capsule uad for 0 days Quantity: 8 {Capsule} Refills: 4 Ordered:21-Jan-2012 Leora Fonseca LPN Start : 31-Jul-2010 End : 21-Jan-2012 Inactive Comments:2 tabs q week x 4 mo and then 1 tab weekly ERGOCALCIFEROL, 81914DOZL (Oral Capsule) 1 (one) Capsule tad for [...] Moya Start : 21-Aug-2008 Inactive VITAMIN D3, 28171YNNK (Oral Capsule) 1 Capsule 2 x week [...] : 04-Jun-2017 Discontinued Comments:This order discontinued per [facility]. DIOVAN HCT, 320-25MG (Oral Tablet) 1 (one) [...] Comments:take 1/2 hr prior to lasix Nystatin 579844 UNIT/ML Mouth/Throat Suspension 5 cc cc swish [...] Inactive as of 04-Mar-2016 Coronary atherosclerosis of hughes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 (I25.10, 414.01) Comments: other stent [...] Visit Report Result: Comments: See Note; NOTES: [facility] [address] [place] [address]. [address] [place] [address] OFFICE VISIT Date of Service: 01/13/18 MR#: [id number] Acct: [id number] Name: RAMU DEIWTT Rep #: [id number] : 1940 Provider: Jimi Greenfield MD Age/Sex: 77/M Location: [facility] Status: Signed HPI HPI Chief Complaint: Follow up visit Details: RAMU DEWITT, is a 77 M who presents to the [facility] today for a cardiovascular outpatient follow-up. 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..] CC: Vicki Styles DO; Lesa Alvarado MD Quill Reamer: Signed 20-Aug-2017 Hand Min 3 Views Result: Comments: See Note; NOTES: [facility] Imaging Services [address] [place] [address] Hand Min 3 Views MR#: [id number] Acct: [id number] Name: RAMU DEWITT Rep #: [id number] DO B: 1940 M 76 From: Andre Crisostomo MD PCP: Vicki Styles DO Status: REG CLI Study: Hand Min 3 Views Date of Exam: 08/20/17 Exam# [id number] Ordering Dr: Lesa Alvarado MD STUDY: X-RAY [...] CC: Vicki Styles DO; Lesa Alvarado MD Quill Reamer: Signed 20-Aug-2017 Knee 4 or More Views Result: Comments: See Note; NOTES: [facility] Imaging Services [address] [place] [address] Knee 4 or More Views MR#: [id number] Acct: [id number] Name: RAMU DEWITT Rep #: [id number] : 1940 [facility] From: Andre Crisostomo MD PCP: Vicki Styles DO Status: REG CLI Study: Knee 4 or More Views Date of Exam: 08/20/17 Exam# [id number] Ordering Dr: Lesa Alvarado MD STUDY: X-RAY [...] CC: Vicki Styles DO; Lesa Alvarado MD Quill Reamer: Signed 20-Aug-2017 Knee 4 or More Views Result: Comments: See Note; NOTES: [facility] Imaging Services [address] [address] Knee 4 or More Views MR#: [id number] Acct: [id number] Name: RAMU DEWITT Rep #: [id number] : 1940 M 76 From: Andre Crisostomo MD PCP: Vicki Styles DO Status: REG CLI Study: Knee 4 or More Views Date of Exam: 08/20/17 Exam# [id number] Ordering Dr: Lesa Alvarado MD STUDY: X-RAY [...] CC: Vicki Styles DO; Lesa Alvarado MD Quill Reamer: Signed 24-Jun-2017 Parathyroid Scan Result: Comments: See Note; NOTES: [facility] Imaging Services [address] [place] [address] Parathyroid Scan MR#: [id number] Acct: [id number] Name: RAMU DEWITT Rep #: [id number] DO B: 1940 M 76 From: Rickie Mcelroy DO PCP: Vicki Styles DO Status: REG CLI Study: Parathyroid Scan Date of Exam: 06/24/17 Exam# [id number] Ordering Dr: Vicki Styles DO CLINICAL: 76-year-old [...] Service support , CC: Vicki Styles DO Quill Reamer: Signed 17-Jun-2017 Hand Min 3 Views Result: Comments: See Note; NOTES: [facility] Imaging Services [address] [place] [address] Hand Min 3 Views MR#: [id number] Acct: [id number] Name: DEWITTRAMU Rep #: [id number] DO B: 1940 M 76 From: Trung Gonzalez DO PCP: Vicki Styles DO Status: REG CLI Study: Hand Min 3 Views Date of Exam: 06/17/17 Exam# [id number] Ordering Dr: Vicki Styles DO STUDY: X-RAY [...] Service support , CC: Samira Styles DO Quill Reamer: Signed 16-Jun-2017 Cardiology Visit Report Result: Comments: See Note; NOTES: [facility] [address] [place] [address] OFFICE VISIT Date of Service: 06/16/17 MR#: [id number] Acct: [id number] Name: RAMU DEWITT Rep #: [id number] : 1940 Provider: LUIS Sanders Age/Sex: 76/M Location: [facility] [place] Status: Signed HPI HPI Details: RAMU DEWITT, [...] Lt brachial Intake Visit Reasons: 3 M Oracle Architect Required: No Accompanied by: None Is patient [...] 12/12/16 [Rx Confirmed 06/14/17] Hydrocodone Bitart/Apap 5-325 [Parkman 5/325] 1 tab PO Q6H PRN PRN #30 tab 12/12 [Rx Confirmed 06/14/17] apixaban 2.5 mg tablet 2.5 mg PO BID #14 tab 04/08/17 [Rx Confirmed 06/14/17] Ejection fraction %: 40 to 44 PFSH Medical History History of stroke (Chronic) 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 2. Atherosclerosis of hughes coronary artery of hughes heart witho ut angina pectoris I25.10 S/P [...] on any cholesterol lowering medication. 6 . 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) Coding Level of Care Code Off vis,est,level 3 Diagnoses Cardiomyopathy, ischemic I25.5 Atherosclerosis of hughes coronary artery of hughes heart without angina pectoris I25.10 Persistent atrial fibr illation I48.1 Atrial fibrillation type: persistent Essential hypertension I10 Hypertension type: essential hypertension Mixed hyperlipidemia E78.2 Hyperlipidemia type: mixed hyperlipidemia adjunct faculty for medical terminology us e of drug Z79.899 Coding Level of Care Code Off vis,est,level 3 Diagnoses Cardiomyopathy, ischemic I25.5 Atherosclerosis of hughes coronary artery of hughes heart without angina pectoris I25.10 Persi stent atrial fibrillation I48.1 Atrial fibrillation type: persistent Essential hypertension I10 Hypertension type: essential hypertension Mixed hyperlipidemia E78.2 Hyperlipidemia type: mixed hyperlipid [facility] use of drug Z79.899 06/16/17 1139 <Electronically signed by Ramu POTTER> Date Ramu POTTER 06/16/17 1417&am p;#60;Electronically signed by Jimi Greenfield MD> Cosigner Signature: Date (if applicable) Jimi Greenfield MD CC: Vicki Styles DO 08-Dec-2016 Emergency Department Summary Result: Comments: See Note; NOTES: [facility] Medical Records Department [address] [place] [address] Emergency Department Summary 12/08/16 1354 MR#: [id number] Acct: [id number] Name: RAMU DEWITT Rep #: [id number] : 1940 75 From: Robe Mary MD [...] Angeles C. Computer is reading acute inferior ME. I am in disagreement. Chest x-ray reveals [...] problems, contact your Primary Care Provider. Call [facility] ([phone]) or r bethanyrt to the closest Emergency Room. Call 911 if necessary. 12/08/16 3721 <Electronically signed by Robe Mary MD> Date Robe Mary MD Cosigner Signature (If Indicated): Date CC: Jimi Greenfield MD; Vicki Styles DO 08-Dec-2016 Knee 1 or 2 Views Result: Comments: See Note; NOTES: [facility] Imaging Services [address] [place] [address] Knee 1 or 2 Views MR#: [id number] Acct: [id number] Name: DEWITTRAMU Rep #: [id number] D OB: 1940 M 75 From: Shahab Carlos MD PCP: Vicki Styles DO Status: REG ER Study: Knee 1 or 2 Views Date of Exam: 12/08/16 Exam# [id number] Ordering Dr: Robe Mary MD STUDY: X-RAY [...] Shahab Carlos MD at 12:57 EDT Tel [phone], Service support , CC: Vicki Styles DO; Robe Mary MD Quill Reamer: Signed 08-Dec-2016 Chest 1 View (Portable) Result: Comments: See Note; NOTES: [facility] Imaging Services [address] [place] [address] Chest 1 View (Portable) MR#: [id number] Acct: [id number] Name: RAMU DEWITT Rep #: [id number] : 1940 M 75 From: Shahab Carlos MD PCP: Vicki Styles DO Status: REG ER Study: Chest 1 View (Portable) Date of Exam: 12/08/16 Exam# [id number] Ordering Dr: Robe Mary MD STUDY: X- [...] Shahab Carlos MD at 12:58 EDT Tel [phone], Service support , CC: Vicki Styles DO; Robe Mary MD Quill Reamer: Signed 07-Jan-2016 Chest 1 View (Portable) Result: Comments: See Note; NOTES: [facility] Imaging Services [address] [place] [address] Verdana 4d Chest 1 View (Portable) MR#: [id number] Acct: [id number] Name: RAMU DEWITT Rep #: [id number] : 1940 M 75 From: Shahab Carlos MD PCP: Vicki Styles DO Status: [facility] Study: Chest 1 View (Portable) Date of Exam: 01/07/16 Exam# [id number] Ordering Dr: Ron Buchanan MD STUDY: X-RAY [...] Shahab Carlos MD at 15:38 EDT Tel [phone], Service support , CC: Vicki Styles DO; Jerel Buchanan MD Quill Reamer: Signed 13-Nov-2015 Echocardiogram Complete Result: Comments: See Note; NOTES: [facility] Cardiovascular Services [address] [place] [address] Echo Complete 11/13/15 1006 MR#: [id number] Acct: [id number] Name: RAMU DEWITT Rep #: [id number] : 1940 74 From: Jimi Greenfield MD Attending Dr: Precious Cloe Status: REG CLI Ordering Dr: Precious Cole Date: 11/13/15 Location: [facility] Sex: M C Admitted: Reas on For [...] Dictated: 11/13/15 1006 Date Transcribed: 11/13/15 1256 Quill Reamer: Signed 08-Oct-2015 ELECTROCARDIOGRAM, COMPLETE (ECG) (38591) Result: [MEASUREMENTS ANALYSIS] Date of Test: 10/08/2015 09:07:11; Heart Rate: 98; MI Interval: 0; QRS: 114; QT Interval: 372; Corrected QT Interval (QTc): 438; P Wave Kaufman: -90; QRS Wave Kaufman: -1; T Wave Kaufman: -33; Blood Pressure: 142/86 [ECG DIAGNOSTIC STATEMENTS] Date of Test: 10/08/2015 09:07:11; Summary: Atrial fibrillation -Nonspecific ST depression + Nonspecific T-abnormality -Nondiagnostic. ABNORMAL 09-Jul-2015 Chest 1 View (Portable) Result: Comments: See Note; NOTES: [facility] Imaging Services [address] [place] [address] Verdana 4d Chest 1 View (Portable) MR#: [id number] Acct: [id number] Name: RAMU MARTIN Rep #: [id number] : 1940 M 74 From: Noa Buchanan MD PCP: Vicki Styles DO Status: REG ER Study: Chest 1 View (Portable) Date of Exam: 07/09/15 Exam# [id number] Ordering Dr: Jerel Buchanan MD STUDY: X-RAY [...] at 17:21 EDT Tel , Service support [phone], RAD/Chest 1 View (Portable) IMPRESSION: New small pleural effusion with right b asilar lung consolidation. Persisting cardiomegaly. Electronically Signed: Noa Buchanan MD at 17:21 EDT Tel , Service support [phone], C C: Vicki Styles DO; Jerel Buchanan MD Quill Reamer: Signed 24-May-2015 Nuclear Stress Test - Chemical Result: Comments: See Note; NOTES: [facility] Imaging Services [address] [place] [address] Lorie 4d Nuclear Stress Test - Chemical MR#: [id number] Acct: [id number] N ani: RAMU DEWITT Rep #: [id number] : 1940 74 From: Jimi Greenfield MD [...] present. Jimi Greenfield MD T: NTS JOB: [id number] <Electronically signed by Jimi Greenfield MD> Date Jimi Greenfield MD CC: Vicki Styles DO Date Dictated: 05/24/15 1253 D ate Transcribed: 05/24/151252 Quill Reamer: Signed 18-Apr-2015 Chest 1 View (Portable) Result: Comments: See Note; NOTES: [facility] Imaging Services [address] [place] [address] Verdana 4d Chest 1 View (Portable) MR#: [id number] Acct: [id number] Name: RAMU MARTIN Rep #: [id number] : 1940 M 74 From: Shahab Carlos MD PCP: Vicki Styles DO Status: REG ER Study: Chest 1 View (Portable) Date of Exam: 04/18/15 Exam# [id number] Ordering D r: Ros Zuniga STUDY: X-RAY [...] Shahab Carlos MD at 13:57 EST Tel [phone], Service support [phone], RAD/Chest 1 View (P ortable) IMPRESSION: Thyromegaly and mild degree of CHF with bibasilar atelectasis. Electronically Signed: Shahab Carlos MD at 13:57 EST Tel [phone], Service support , CC: Ros Zuniga; Vicki Styles DO Quill Reamer: Signed 18-Apr-2015 EKG (96939) Comments: afib with RVR-- 150 -pt admits he hasnt taken bystolic >30 day Result: [MEASUREMENTS ANALYSIS] Date of Test: 04/18/2015 11:50:46; Heart Rate: 150; MI Interval: -612; QRS: 96; QT Interval: 302; Corrected QT Interval (QTc): 459; P Wave Kaufman: 1; QRS Wave Kaufman: 15; T Wave Kaufman : -90; Blood Pressure: 124/82 [ECG DIAGNOSTIC STATEMENTS] Date of Test: 04/18/2015 11:50:46; Summary: Possible atrial fibrillation -Inferior infarct -age undetermined. -Nonspecific ST depression -Nondiagnostic. ABNORMAL -May-2014 Sleep Study Report Result: Comments: See Note; NOTES: [facility] [address] [place] [address] Polysomnography with NCPAP MR#: [id number] Acct: [id number] Name: RAMU DEWITT Rep #: [id number] : 1940 73 From: Cezar Escalante MD PCP: Vicki Styles DO Status: REG CLI Ordering Dr.: Dana Osborne NP-C Date: 05/01/14 Sex: M C REFERRING PHYSICIAN: COREY Shah SLEEP HISTORY: This is a CPAP titration study performed on this 73-year-old male with a body mass index of 36.5 and an Crapo Sleepiness Scale score of 8. Diagnostic polysomnogram [...] version). Please note that a reference to [facility] AHI in this report is consistent with the current Hypopnea definition according to Medicare Criteria and an [facility] AHI reference is consistent with the current Hypopnea definition according to the AASM criteria. PROCEDURE: The study was attended continuously by a instructor adjunct surgical technician. Monitored parameters included left and right [...] Study Report Result: Comments: See Note; NOTES: [facility] [address] [place] [address] Polysomnography MR#: [id number] Acct: [id number] Name: RAMU DEWITT Rep #: [id number] : 1940 73 From: Dillon Miner MD PCP: Vicki Styles DO Status: REG CLI Ordering Dr.: Vikci Styles DO Date: 03/08/14 Sex: M C REFERRING PHYSICIAN: Dr. Styles. SLEEP HIS TORY: The patient is a 73-year-old gentleman with a calculated body mass index of 36.5 and an Crapo Sleepiness Scale score of 8/24. He complains [...] version). Please note that a reference to [facility] AHI in this report is consistent with the current Hypopnea definition according t o Medicare Criteria and an [facility]ASM AHI reference is consistent with the current Hypopnea definition according to the AASM criteria. PROCEDURE: The study was attended continuously by a instructor adjunct surgical technician. Monitored parameters included left and right EOG, frontal, central, and occipital EEG, mental and submental EMG, left and right anterior tibialis EMG, signal ECG waveform, snore, continuous airflow w ith thermistor and nasal pressure transducer, chest and abdominal plethysmography efforts, oxygen saturation with heart rate, and body positioning with video monitoring. SLEEP STUDY DATA: [facility] polysomnogram began at 0939:27 p.m. and ended at 554262 a.m. for a total recording time of [...] Co-signature (if applicable) Date Signed 28-Dec-2013 Spirometry (64138) Result: 29-Aug-2013 Chest PA and Lateral Result: Comments: See Note; NOTES: [facility] Imaging Services [address] [place] [address] Radiology Report MR#: [id number] Acct: [id number] Name: RAMU DEWITT Rep #: [id number] : 1940 M 72 From: Shahab Carlos MD PCP: Vicki Styles DO Status: REG CLI Study: Chest PA and Lateral Date of Exam: 08/29/13 Exam# [id number] Ordering Dr: Vicki Styles DO STUDY: X-RAY [...] Shahab Carlos MD at 15:06 EDT Tel [phone], Service support [phone], CC: Vicki Styles DO Quill Reamer: Signed 24-Aug-2013 Spirometry (44361) Comments: obstruction present Result: Social History Name Dates Details Alcohol Use Comments: Occasional alcohol use Status: Active Caffeine Use Comments: 6 - 8 Glasses per day Status: Active Non Smoker/No Tobacco Use Status: Active Tobacco use: Former smoker. Comments: 08/26/11 Status: Active Smoking Status Name Dates Details Former smoker Vital Signs Date Test Result Details 04-Kcf-516771:13 Comments: [facility] and had a glaucoma test donehearing wn [...] kg/m2 Body Surface Area Calculated 2.08 m2 1-Bqq-575707:19 Pulse 68 /min Comments: Pattern: Regular Respiration [...] Area Calculated 2.05 m2 :36 Comments: hearing [facility] and had glaucoma test done Pulse [...] kg/m2 Body Surface Area Calculated 2.13 m2 33-Ozw-014966:09 Pulse 60 /min Comments: Pattern: Regular Respiration [...] Cuff Location: Left Arm; Cuff Size: Standard 29-Fhi-344419:16 Temperature 97 f Comments: Method: Tympanic Pulse [...] kg/m2 Body Surface Area Calculated 2.13 m2 95-Qyb-311572:23 Temperature 96 f Comments: Method: Oral Pulse [...] kg/m2 Body Surface Area Calculated 2.12 m2 53-Mzk-172879:44 Pulse 58 /min Comments: Pattern: Regular Respiration [...] :19 Comments: before- BP 142/89 Sp02- 98% N-95yhfto-KI 150/84 Sp02 97% P-60 Temperature 97.9 f [...] Value Details :06 CBC W/Diff, Automated Comments: [facility] [address] [place], [place], [address] Absolute Lymph 1.37 {X10_3/ul} (Normal) Range: 0.83-4.51 [...] 4.6-6.2 WBC 7.1 K/mm3 (Normal) Range: 4.4-11.0 95-Ppo-831104:06 Comprehensive Metabolic Profil Comments: [facility] [address] [place], [place], [address] GAP 12 (Normal) Range: 5-15 CO2 26.0 [...] A.D.A. criteria.Please note revised GLUCOSE reference range shtjivstm59/02/2018. 87-Qkv-890348:06 Uric Acid Comments: [facility] [address] [facility] [place], [place], [address] URIC 9.2 mg/dL (Abnormal) Range: 3.5-7.2 Comments: The drugs N-Acetylcysteine and Metamizole may falselydepress this assay. 39-Fbi-519155:39 CBC W/Diff, Automated Comments: [facility] [address] [facility] [address] [place], [place], [address] Absolute Lymph 1.40 {X10_3/ul} (Normal) Range: 0.83-4.51 [...] 4.6-6.2 WBC 6.4 K/mm3 (Normal) Range: 4.4-11.0 19-Jrh-948874:39 Comprehensive Metabolic Profil Comments: [facility] [address] [place], [place], [address] GAP 8 (Normal) Range: 5-15 CO2 30.0 [...] A.D.A. criteria.Please note revised GLUCOSE reference range dnkmkuedx38/02/2018. 41-Svn-856085:39 Uric Acid Comments: [facility] [address] [place], [place], [address] URIC 9.1 mg/dL (Abnormal) Range: 3.5-7.2 Comments: The drugs N-Acetylcysteine and Metamizole may falselydepress this assay. 5-Gdp-148027:57 HgA1C , Office (77370) HgA1C , Office 6.9 % (Normal) Range: 4.6 - 7.1 5-Aus-830364:57 Blood Glucose , Office (00186) Blood Glucose , Office 173 (Normal) 18-Owu-017379:26 CBC W/Diff, Automated Comments: [facility] [address] [place], [place], [address] Absolute Lymph 1.30 {X10_3/ul} (Normal) Range: 0.83-4.51 [...] 4.6-6.2 WBC 9.0 K/mm3 (Normal) Range: 4.4-11.0 54-Umz-878105:26 CCP IgG Antibodies Comments: [facility] (refer to report for specific site)refer to report for address and phone number ANTI-CCP 256590 8 {units} (Normal) Range: 0-19 Comments: Negative <20 Weak positive 20 - 39 Moderate positive 40 - 59 Strong positive >59 35-Ohj-408680:26 Comprehensive Metabolic Profil Comments: [facility] [address] [place], [address] GAP 9 (Normal) Range: 5-15 CO2 28.0 [...] A.D.A. criteria.Please note revised GLUCOSE reference range ifnsraexe89/02/2018. 41-Nyj-540097:26 CRP Comments: [facility] [address] [facility] [place], [address] C-REACTIVE PROT 8.60 mg/L (Abnormal) Range: 0.0-3.0 Comments: C-Reactive Protein (CRP) provides useful information for thediagnosis, therapy and monitoring of inflammatory processesand associated diseases. For the evaluation of Relative Riskfor Cardiovascular Dise ase, a High Sensitivity CRP (HSCRP)should be ordered. 79-Peh-691344:26 Erythrocyte Sed Rate Comments: [facility] [address] [facility] [address] [place], [place], [address] SED RATE 18 mm/h (Normal) Range: 0-20 47-Tbu-306418:26 Hep B Surface Antibodies Comments: [facility] (refer to report for specific site)refer to report for address and phone number Hep B Patricia AB Non Reactive (Normal) Comments: Non Reactive: Inconsistent with immunity, less than 10 mIU/mL Reactive: Consistent with immunity, greater than 9.9 mIU/ mL 15-Vhe-989793:26 Hepatitis B Surface Ag Comments: [facility] (refer to report for specific site)refer to report for address and phone number HB SURF AG Negative (Normal) Comments: Performed at: - [facility] [id number] Director: Christopher Molina PhD, Phone: [phone] at: [address] [id number] Director: Dillon Falk MD, Phone: [phone] 04-Csv-531820:26 Hepatitis C Antibodies Comments: [facility] (refer to report for specific site)refer to report for address and phone number HEP C AB <0.1 {s/co_ratio} (Normal) Range: 0.0-0.9 Comments: Negative: < 0.8 Indeterminate: 0.8 - 0.9 Positive: > 0.9 The CDC recommends that a positive HCV antibody result be followed up with a HCV Nucleic Acid Amplification test (129915). 09-Jih-326955:26 Rheumatoid Factor Comments: [facility] [address] [facility] [address] [place], [place], [address] RHEUMATOID FAC < 10.0 {IU/mL} (Normal) 71-Fbl-403912:26 Uric Acid Comments: [facility] [address] [facility]. [place], [place], [address] URIC 10.7 mg/dL (Abnormal) Range: 3.5-7.2 Comments: The drugs N-Acetylcysteine and Metamizole may falselydepress this assay. 23-Ypa-811556:20 CCP ANTIBODY (77158) Comments: PATIENT NOT FASTINGPERFORMED BY: M[address] [id number] BY: [address] [id number] CCP Antibodies IgG/IgA 8 {units} (Normal) Range: 0-19 Comments: Negative <20 Weak positive 20 - 39 Moderate positive 40 - 59 Strong positive >59 85-Rvq-960351:20 SED RATE ERYTHROCYTE Comments: PATIENT NOT FASTINGPERFORMED BY: [address] [id number] BY: [address] [id number] (00907) Sedimentation Rate-Westergren 32 mm/h (Abnormal) Range: 0-30 55-Cyw-668106:20 C-REACTIVE PROTEIN Comments: PATIENT NOT FASTINGPERFORMED BY: LabCoKessler Institute for RehabilitationFythfe4929 [place] [facility] [place] [id number] BY: [address] [id number] (96096) C-Reactive Protein, Quant 24.6 mg/L (Abnormal) Range: 0.0-4.9 02-Ycy-303291:20 RHEUMATOID FACTOR-QUANT Comments: PATIENT NOT FASTINGPERFORMED BY: Global Data SolutionsKessler Institute for RehabilitationUmbllz8446 [place] [facility] [id number] BY: [address] [id number] (19234) RA Latex Turbid. <10.0 {IU/mL} (Normal) Range: 0.0-13.9 62-Sdu-861613:20 THAIS (ANTINUCLEAR ANTIBODY) Comments: PATIENT NOT FASTINGPERFORMED BY: [employer] Vnwskb3787 [place] [facility] [id number] BY: [address] [id number] (52800) THAIS Direct Negative (Normal) 3-Jgc-923697:59 MAGNESIUM (25903) Comments: PATIENT WAS FASTINGPERFORMED BY: [facility] Ydehqi8949 [place] [facility] [place] [id number] Magnesium, Serum 2.1 mg/dL (Normal) Range: 1.6-2.3 1-Phy-597129:59 PHOSPHORUS (79814) Comments: PATIENT WAS FASTINGPERFORMED BY: [facility] Vssfrv8291 [place] [facility] [place] [id number] Phosphorus, Serum 3.1 mg/dL (Normal) Range: 2.5-4.5 0-Jgt-234104:59 PARATHORMONE (90721) Comments: PATIENT WAS FASTINGPERFORMED BY: [facility] Xsdbsk0608 [place] [facility] [place] [id number] PTH, Intact 67 pg/mL (Abnormal) Range: 15-65 8-Ujq-359711:59 CALCIFEDIOL (01744) Comments: PATIENT WAS FASTINGPERFORMED BY: LabCoKessler Institute for RehabilitationZlnyap5978 [facility] [id number] Vitamin D, 25-Hydroxy 21.5 ng/mL (Abnormal) Range: 30.0-100.0 Comments: Vitamin D deficiency has been defined by the Kimberly ofGal[facility] Community Hospitalcine and an Endocrine Society practice guideline as alevel of serum 25-OH vitamin D less than 20 ng/mL (1,2).The Endocrine Society went on to further define vitamin Dinsufficiency as a level between 21 and 29 ng/mL (2).1. IOM (Kimberly of Medicine). 2010. Dietary reference intakes for calcium and D. [place]: The National Academies Press.2. Marcelle MF, Justin PURCELL, Amira ELIAS, et al. Evaluation, treatment, and prevention of vitamin D deficiency: an Endocrine Society clinical practice guideline. JCEM. 2010; 96(7):1911-30. 3-Adb-759580:59 TSH (84659) Comments: PATIENT WAS FASTINGPERFORMED BY: [facility] Vdzldg8324 [facility] [id number] TSH 3.200 {uIU/mL} (Normal) Range: 0.450-4.500 5-Ncp-046238:59 METABOLIC PANEL, COMPREHENSIVE Comments: PATIENT WAS FASTINGPERFORMED BY: LabCoKessler Institute for RehabilitationDojgqf7654 [facility] [id number] (96182) ALT (SGPT) 13 [iU]/L (Normal) Range: 0-44 [...] Glucose, Serum 166 mg/dL (Abnormal) Range: 65-99 2-Veq-825111:59 LIPID PANEL (79457) Comments: PATIENT WAS FASTINGPERFORMED BY: [employer] [employer] [place] [id number] LDL/HDL Ratio 2.4 {ratio_units} (Normal) Range: 0.0-3.6 Comments: LDL/HDL Ratio Men Women 1/2 Avg.Risk 1.0 1.5 Av g.Risk 3.6 3.2 2X Avg.Risk 6.2 5.0 3X Avg.Risk 8.0 6.1 LDL Cholesterol Calc 101 mg/dL (Abnormal) Range: 0-99 VLDL Cholesterol Bharat 28 mg/dL (Normal) Range: 5-40 HDL Cholesterol 42 mg/dL (Normal) Triglycerides 139 mg/dL (Normal) Range: 0-149 Cholesterol, Total 171 mg/dL (Normal) Range: 100-199 0-Zqz-291047:59 CBC W/AUTO DIFF WBC (47961) Comments: PATIENT WAS FASTINGPERFORMED BY: [employer]70 [facility]ible[facility]ainsAd[facility] [id number] Immature Grans (Abs) 0.0 {x10E3/uL} (Normal) Range: [...] (Normal) Range: 3.4-10.8 :51 HgA1C , Office (20671) HgA1C , Office 7.0 % (Normal) Range: 4.6 - 7.1 :51 Blood Glucose , Office (68848) Blood Glucose , Office 197 (Normal) 1-Yvu-637538:35 Basic Metabolic Profile (BMP) Comments: 'TROP' Serial specimen #1, #2, #3, or #4: [facility] Bddtcooviv10[address] [place], [place], [address] GAP 11 (Normal) Range: 5-15 CO2 25.0 [...] 126 mg/dLsuggests DIABETES MELLITUS per A.D.A. criteria. 8-Cuq-710915:35 BNP,B-Type NATRIURETIC PEPTIDE Comments: [facility] [address] [place], [place], [address] B-TYPE KAE PEP 1319.4 pg/mL (Abnormal) Range: 0-100 :35 CBC W/Diff, Automated Comments: [facility] [address] [place], [place], [address] Absolute Lymph 0.87 {X10_3/ul} (Normal) Range: 0.83-4.51 [...] 4.6-6.2 WBC 12.7 K/mm3 (Abnormal) Range: 4.4-11.0 9-Kox-420623:35 Troponin-I Comments: 'TROP' Serial specimen #1, #2, #3, or #4: [address] [place] [address] Mcndpwgfpb1195 [address] JackLaquita [place], [place], [address] TROPONIN-I 0.03 ng/mL (Normal) Comments: TROPONIN-I EXPECTED VALUES <0.05 NEGATIVE 0.06 - 0.59 AT RISK OF ME > OR = 0.60 SUGGEST ME 8-Dty-471303:35 Microscopic Examination Comments: PATIENT WAS FASTINGPERFORMED BY: [facility] [id number] Bacteria Few (Normal) Mucus Threads Present (Normal) Cast Type Hyaline casts (Normal) Casts Present {/lpf} (Abnormal) Epithelial Cells (non renal) None seen {/hpf} (Normal) Range: 0 - 10 RBC 0-2 {/hpf} (Normal) Range: 0 - 2 WBC 0-5 {/hpf} (Normal) Range: 0 - 5 0-Jql-979437:00 PSA (PROSTATE SPECIFIC Comments: send copy to dr bianchi; PATIENT NOT FASTINGPERFORMED BY: [employer] [place] [facility] GuardAdventHealth [facility]ville [id number] ANTIGEN) (V76.44) Prostate Specific Ag, 2.1 ng/mL (Normal) Range: 0.0-4.0 Serum Comments: Temo ECLIA methodology. .According to the [place] Urological Association, Serum PSA shoulddecrease and remain at undetectable levels after radicalprostatectomy. The AUA defines biochemical recurrence as an initialPSA value 0.2 ng/mL or greater followed by a subsequent confirmatoryPSA value 0.2 ng/mL or greater.Values obtained with d ifferent assay methods or kits cannot be usedinterchangeably. Results cannot be interpreted as absolute evidenceof the presence or absence of malignant disease. :35 TSH (61727) Comments: PATIENT WAS FASTINGPERFORMED BY: VarVeeCaroMont [facility] [id number] TSH 4.070 {uIU/mL} (Normal) Range: 0.450-4.500 :35 URINALYSIS, W/ MICRO (99105) Comments: PATIENT WAS FASTINGPERFORMED BY: Anywhere.FMAdventHealth Hendersonville [id number]; can review at next appt Microscopic Examination See below: (Normal) Comments: Microscopic was indicated and was performed. Nitrite, Urine Negative (Normal) Urobilinogen,Semi-Qn 1.0 mg/dL (Normal) Range: 0.2-1.0 Bilirubin Negative (Normal) Occult Blood Negative (Normal) Ketones Negative (Normal) Glucose Negative (Normal) Protein 1+ (Abnormal) WBC Esterase Negative (Normal) Appearance Clear (Normal) Urine-Color Yellow (Normal) pH 7.0 (Normal) Range: 5.0-7.5 Specific [place] 1.013 (Normal) Range: 1.005-1.030 :35 MICROALBUMIN: CREATININE RATIO Comments: PATIENT WAS FASTINGPERFORMED BY: VarVeeCaroMont [facility] [id number] (83817) AND (44076) Microalb/Creat Ratio 136.1 {mg/g_creat} (Abnormal) Range: 0.0-30.0 Microalbumin, Urine 118.3 ug/mL (Normal) Creatinine, Urine 86.9 mg/dL (Normal) :35 METABOLIC PANEL, COMPREHENSIVE Comments: PATIENT WAS FASTINGPERFORMED BY: VarVeeCaroMont [facility] [id number] (59325) ALT (SGPT) 10 [iU]/L (Normal) Range: 0-44 [...] Glucose, Serum 126 mg/dL (Abnormal) Range: 65-99 4-Zjt-301620:35 LIPID PANEL (54905) Comments: PATIENT WAS FASTINGPERFORMED BY: LabMary Free Bed Rehabilitation Hospital6370 [facility] [id number] LDL/HDL Ratio 2.4 {ratio_units} (Normal) Range: 0.0-3.6 Comments: LDL/HDL Ratio Men Women 1/2 Avg.Risk 1.0 1.5 Av g.Risk 3.6 3.2 2X Avg.Risk 6.2 5.0 3X Avg.Risk 8.0 6.1 LDL Cholesterol Calc 99 mg/dL (Normal) Range: 0-99 VLDL Cholesterol Bharat 25 mg/dL (Normal) Range: 5-40 HDL Cholesterol 41 mg/dL (Normal) Triglycerides 123 mg/dL (Normal) Range: 0-149 Cholesterol, Total 165 mg/dL (Normal) Range: 100-199 8-Ybz-237067:35 CBC W/AUTO DIFF WBC (37183) Comments: PATIENT WAS FASTINGPERFORMED BY: [employer] [facility] [id number] Immature Grans (Abs) 0.0 {x10E3/uL} (Normal) Range: [...] 4.14-5.80 WBC 6.7 {x10E3/uL} (Normal) Range: 3.4-10.8 2-Ctm-480324:35 CALCIFIDIOL (14057) VIT D 25 Comments: PATIENT WAS FASTINGPERFORMED BY: [employer] Bsyapv1039 [facility] [id number] Vitamin D, 25-Hydroxy 37.2 ng/mL (Normal) Range: 30.0-100.0 Comments: Vitamin D deficiency has been defined by the Kimberly ofMedicine and an Endocrine Society practice guideline as alevel of serum 25-OH vitamin D less than 20 ng/mL (1,2).The Endocrine Society went on to further define vitamin Dinsufficiency as a level between 21 and 29 ng/mL (2).1. IOM (Kimberly of Medicine). 2010. Dietary reference intakes for calcium and D. [place]: The National Academies Press.2. Marcelle MF, Justin PURCELL, Amira ELIAS, et al. Evaluation, treatment, and prevention of vitamin D deficiency: an Endocrine Society clinical practice guideline. JCEM. 2010; 96(7):1911-30. 9-Oeo-165071:21 HgA1C , Office (95591) HgA1C , Office 6.2 % (Normal) Range: 4.6 - 7.1 :21 Blood Glucose , Office (51748) Blood Glucose , Office 162 (Normal) 6-Aqy-376556:56 Microscopic Examination Comments: PATIENT WAS FASTINGPERFORMED BY: [employer] LabCoNewswired Kxjwks7972 [facility] [place] [id number] Bacteria None seen (Normal) Mucus Threads Present (Normal) Cast Type Hyaline casts (Normal) Casts Present {/lpf} (Abnormal) Epithelial Cells (non renal) 0-10 {/hpf} (Normal) Range: 0 - 10 RBC 0-2 {/hpf} (Normal) Range: 0 - 2 WBC None seen {/hpf} (Normal) Range: 0 - 5 :56 CALCIFIDIOL (80780) VIT D 25 Comments: PATIENT WAS FASTINGPERFORMED BY: [employer] LabCoNewswired Uhaswj5926 [place] [facility] [place] [id number] Vitamin D, 25-Hydroxy 34.6 ng/mL (Normal) Range: 30.0-100.0 Comments: Vitamin D deficiency has been defined by the Kimberly ofMedicine and an Endocrine Society practice guideline as alevel of serum 25-OH vitamin D less than 20 ng/mL (1,2).The Endocrine Society went on to further define vitamin Dinsufficiency as a level between 21 and 29 ng/mL (2).1. IOM (Kimberly of Medicine). 2010. Dietary reference intakes for calcium and D. [place]: The National Academies Press.2. Marcelle MF, Justin [place], Amira ELIAS, et al. Evaluation, treatment, and prevention of vitamin D deficiency: an Endocrine Society clinical practice guideline. JCEM. 2010; 96(7):1911-30. 4-Jcr-452266:56 TSH (94392) Comments: PATIENT WAS FASTINGPERFORMED BY: [employer] [facility] [id number] TSH 5.530 {uIU/mL} (Abnormal) Range: 0.450-4.500 :56 URINALYSIS, W/ MICRO (27250) Comments: PATIENT WAS FASTINGPERFORMED BY: [employer] [facility] [id number] Microscopic Examination See below: (Normal) Comments: Microscopic was indicated and was performed. Microscopic Examination MICRON (Normal) Comments: Microscopic follows if indicated. Nitrite, Urine Negative (Normal) Urobilinogen,Semi-Qn 1.0 mg/dL (Normal) Range: 0.2-1.0 Bilirubin Negative (Normal) Occult Blood Negative (Normal) Ketones Negative (Normal) Glucose Negative (Normal) Protein Negative (Normal) WBC Esterase Negative (Normal) Appearance Clear (Normal) Urine-Color Yellow (Normal) pH 7.0 (Normal) Range: 5.0-7.5 Specific [place] 1.009 (Normal) Range: 1.005-1.030 :56 MICROALBUMIN: CREATININE RATIO Comments: PATIENT WAS FASTINGPERFORMED BY: [employer] Pwbpiz9395 [facility] [id number] (61767) AND (48672) Microalb/Creat Ratio <12.1 {mg/g_creat} (Normal) Range: 0.0-30.0 Microalbumin, Urine <3.0 ug/mL (Normal) Creatinine, Urine 24.7 mg/dL (Normal) :56 METABOLIC PANEL, COMPREHENSIVE Comments: PATIENT WAS FASTINGPERFORMED BY: [employer] Txgkyp4696 [facility] [id number] (36179) ALT (SGPT) 8 [iU]/L (Normal) Range: 0-44 [...] Glucose, Serum 109 mg/dL (Abnormal) Range: 65-99 6-Jbk-067062:56 CBC W/AUTO DIFF WBC (20667) Comments: PATIENT WAS FASTINGPERFORMED BY: LabCoKessler Institute for RehabilitationPuzjfz5449 [facility] [id number] Immature Grans (Abs) 0.0 {x10E3/uL} (Normal) Range: [...] 4.14-5.80 WBC 6.9 {x10E3/uL} (Normal) Range: 3.4-10.8 7-Puq-043080:56 LIPID PANEL (12423) Comments: PATIENT WAS FASTINGPERFORMED BY: [facility] Dsgzaj1214 [facility] [id number] LDL/HDL Ratio 2.3 {ratio_units} (Normal) Range: 0.0-3.6 [...] (Normal) Range: 100-199 :36 HgA1C , Office (59642) HgA1C , Office 6.4 % (Normal) Range: 4.6 - 7.1 :36 Blood Glucose , Office (94105) Blood Glucose , Office 129 (Normal) :20 Blood Glucose , Office (12835) Blood Glucose , Office 111 (Normal) 57-Pzi-095786:20 HgA1C , Office (02046) HgA1C , Office 6.4 % (Normal) Range: 4.6 - 7.1 :25 CBC W/AUTO DIFF WBC (69195) Comments: PATIENT NOT FASTINGPERFORMED BY: LabCoKessler Institute for RehabilitationLbpoek5967 [facility] [id number] Immature Grans (Abs) 0.0 {x10E3/uL} (Normal) Range: [...] 4.14-5.80 WBC 6.0 {x10E3/uL} (Normal) Range: 3.4-10.8 11-Rbf-530646:25 METABOLIC PANEL, COMPREHENSIVE Comments: PATIENT NOT FASTINGPERFORMED BY: LabCoKessler Institute for RehabilitationDbofbl5541 [facility] [id number] (76402) ALT (SGPT) 13 [iU]/L (Normal) Range: 0-44 [...] Glucose, Serum 158 mg/dL (Abnormal) Range: 65-99 5-Aly-242482:03 Basic Metabolic Profile (BMP) Comments: 'TROP' Serial specimen #1, #2, #3, or #4: [facility] Ysrodcuxdq89[address] [place], [address] GAP 6 (Normal) Range: 5-15 [...] 126 mg/dLsuggests DIABETES MELLITUS per A.D.A. criteria. 1-Nug-070258:03 BNP,B-Type NATRIURETIC PEPTIDE Comments: [facility] Zqopvtdevl[address] [place], [address] B-TYPE KAE PEP 732.8 pg/mL (Abnormal) Range: 0-100 :03 CBC W/Diff, Automated Comments: [facility] Idedgnnfhb8190 [place], [address] Absolute Lymph 0.93 {X10_3/ul} (Normal) [...] 4.6-6.2 WBC 6.8 K/mm3 (Normal) Range: 4.4-11.0 0-Fnh-994016:03 Liver Profile Comments: 'TROP' Serial specimen #1, #2, #3, or #4: 1WTuscar[facility] Lwrfeekaqg8372 [address] [place], [place], [address] D BILI 0.39 mg/dL (Abnormal) Range: 0.00-0.30 T BILI 1.40 mg/dL (Abnormal) Range: 0.20-1.00 ALT 16 U/L (Normal) Range: 12-78 ALK P 90 U/L (Normal) Range: 50-136 AST 18 U/L (Normal) Range: 15-37 GLOB 3.7 g/dL (Abnormal) Range: 2.3-3.5 ALB 3.4 g/dL (Normal) Range: 3.4-5.0 T PROT 7.1 g/dL (Normal) Range: 6.4-8.2 5-Sul-108734:03 Troponin-I Comments: 'TROP' Serial specimen #1, #2, #3, or #4: 1WTuscar[facility] Lkrphemydf5655 [place], [address] TROPONIN-I < 0.02 ng/mL (Normal) Comments: TROPONIN-I EXPECTED VALUES <0.05 NEGATIVE 0.06 - 0.59 AT RISK OF ME > OR = 0.60 SUGGEST ME 1-Yuu-812376:07 Urinalysis, Office (72169) UA - LEUKOCYTE ESTERASE Negative (Normal) UA - NITRITE Negative (Normal) URINE UROBILINGN KATELIN TIMED 4 mg/dL (Normal) UA - PROTEIN 30 mg/dL (Normal) UA - PH 7 (Normal) UA - BLOOD Negative (Normal) UA - SPECIFIC GRAVITY 1.020 (Normal) UA - KETONES Negative mg/dL (Normal) UA - BILIRUBIN Negative (Normal) UA - GLUCOSE Negative (Normal) 37-Nhd-520197:59 HgA1C , Office (91629) HgA1C , Office 6.3 % (Normal) Range: 4.6 - 7.1 05-Wcx-847721:59 Blood Glucose , Office (94573) Blood Glucose , Office 177 (Normal) 91-Kbx-25910:44 Basic Metabolic Profile (BMP) Comments: [facility] Yjxgndliku[address] [place], [address] GAP 7 (Normal) Range: 5-15 [...] 126 mg/dLsuggests DIABETES MELLITUS per A.D.A. criteria. 1-Ndr-451307:32 Microscopic Examination Comments: PATIENT NOT FASTINGPERFORMED BY: [employer] Vztazx1526 [facility] [id number] Bacteria None seen (Normal) Mucus Threads Present (Normal) Cast Type Hyaline casts (Normal) Casts Present {/lpf} (Abnormal) Epithelial Cells (non renal) 0-10 {/hpf} (Normal) Range: 0 - 10 RBC 0-2 {/hpf} (Normal) Range: 0 - 2 WBC 0-5 {/hpf} (Normal) Range: 0 - 5 4-Lew-403678:32 CALCIFIDIOL (47210) VIT D 25 Comments: PATIENT NOT FASTINGPERFORMED BY: [facility] Dzdzyh9380 [facility] [id number] Vitamin D, 25-Hydroxy 34.1 ng/mL (Normal) Range: 30.0-100.0 Comments: Vitamin D deficiency has been defined by the Kimberly ofMedicine and an Endocrine Society practice guideline as alevel of serum 25-OH vitamin D less than 20 ng/mL (1,2).The Endocrine Society went on to further define vitamin Dinsufficiency as a level between 21 and 29 ng/mL (2).1. IOM (Kimberly of Medicine). 2010. Dietary reference intakes for calcium and D. [place]: The National Academies Press.2. Marcelle MF, Justin PURCELL, Amira ELIAS, et al. Evaluation, treatment, and prevention of vitamin D deficiency: an Endocrine Society clinical practice guideline. JCEM. 2010; 96(7):1911-30. :32 TSH (80899) Comments: PATIENT NOT FASTINGPERFORMED BY: M2GMary [facility] Hospital6370 [facility] [id number] TSH 5.190 {uIU/mL} (Abnormal) Range: 0.450-4.500 :32 URINALYSIS, W/ MICRO (06286) Comments: PATIENT NOT FASTINGPERFORMED BY: M2GMary [facility] Bed Rehabilitation Hospital6370 [facility] [id number] Microscopic Examination See below: (Normal) Comments: Microscopic was indicated and was performed. Microscopic Examination MICRON (Normal) Comments: Microscopic follows if indicated. Nitrite, Urine Negative (Normal) Urobilinogen,Semi-Qn 1.0 mg/dL (Normal) Range: 0.2-1.0 Bilirubin Negative (Normal) Occult Blood Negative (Normal) Ketones Negative (Normal) Glucose Negative (Normal) Protein Trace (Normal) WBC Esterase Negative (Normal) Appearance Clear (Normal) Urine-Color Yellow (Normal) pH 6.5 (Normal) Range: 5.0-7.5 Specific [place] 1.019 (Normal) Range: 1.005-1.030 :32 MICROALBUMIN: CREATININE RATIO Comments: PATIENT NOT FASTINGPERFORMED BY: M2GMary [facility] Hospital6370 [facility] [id number] (51612) AND (52936) Microalb/Creat Ratio 43.8 {mg/g_creat} (Abnormal) Range: 0.0-30.0 Microalbumin, Urine 51.0 ug/mL (Normal) Creatinine, Urine 116.5 mg/dL (Normal) :32 METABOLIC PANEL, COMPREHENSIVE Comments: PATIENT NOT FASTINGPERFORMED BY: M2GMary [facility]6370 [facility] [id number] (07296) ALT (SGPT) 13 [iU]/L (Normal) Range: 0-44 [...] Glucose, Serum 122 mg/dL (Abnormal) Range: 65-99 7-Auv-622173:32 LIPID PANEL (80360) Comments: PATIENT NOT FASTINGPERFORMED BY: LabCoKessler Institute for RehabilitationYbjdmo2083 [facility] [id number] LDL/HDL Ratio 1.9 {ratio_units} (Normal) Range: 0.0-3.6 [...] Cholesterol, Total 145 mg/dL (Normal) Range: 100-199 5-Hcg-623545:32 CBC W/AUTO DIFF WBC Comments: PATIENT NOT FASTINGPERFORMED BY: [employer] Hbmwsd2233 [facility] [id number] Information: [id number] (28785) Immature Grans (Abs) 0.0 {x10E3/uL} (Normal) Range: [...] 4.14-5.80 WBC 6.5 {x10E3/uL} (Normal) Range: 3.4-10.8 8-Tvu-160884:32 PSA (PROSTATE SPECIFIC Comments: send copy to dr mast; PATIENT NOT FASTINGPERFORMED BY: [employer] Nbekqc2827 [facility] [id number] ANTIGEN) (V76.44) Prostate Specific Ag, 2.1 ng/mL (Normal) Range: 0.0-4.0 Serum Comments: Temo ECLIA methodology. .According to the [place] U[employer] Association, Serum PSA shoulddecrease and remain at undetectable levels after radicalprostatectomy. The AUA defines biochemical recurrence as an initialPSA value 0.2 ng/mL or greater followed by a subsequent confirmatoryPSA value 0.2 ng/mL or greater.Values obtained with d ifferent assay methods or kits cannot be usedinterchangeably. Results cannot be interpreted as absolute evidenceof the presence or absence of malignant disease. 16-Zcr-422330:20 Metabolic Panel, Basic Comments: PATIENT NOT FASTINGPERFORMED BY: LabCoKessler Institute for RehabilitationInshol4743 [facility] [id number] Information: [id number] (93186) Calcium, Serum 9.0 mg/dL (Normal) Range: 8.6-10.2 [...] Glucose, Serum 90 mg/dL (Normal) Range: 65-99 8-Vwd-639921:26 BNP,B-Type NATRIURETIC PEPTIDE Comments: [facility] [address] [place], [address] B-TYPE KAE PEP 247.5 pg/mL (Abnormal) Range: 0-100 7-Cns-560002:26 CBC W/Diff, Automated Comments: [facility] [address] [place], [address] Absolute Lymph 0.87 {X10_3/ul} (Normal) [...] 4.6-6.2 WBC 8.2 K/mm3 (Normal) Range: 4.4-11.0 5-Ngf-194594:08 Basic Metabolic Profile (BMP) Comments: [facility] Fmpxcfhlfi5350 [place], [address] GAP 11 (Normal) Range: 5-15 CO2 30.0 [...] <126 mg/dLsuggests IMPAIRED HOMEOSTASIS per A.D.A. criteria. 9-Ylw-210893:00 Basic Metabolic Profile (BMP) Comments: [facility] [address] [place], [place], [phone]) GAP 12 (Normal) Range: 5-15 CO2 26.0 [...] 126 mg/dLsuggests DIABETES MELLITUS per A.D.A. criteria. 77-Uek-514216:33 Basic Metabolic Profile (BMP) Comments: [facility] [address] [place], [place], [address] GAP 5 (Normal) Range: 5-15 CO2 26.0 [...] 126 mg/dLsuggests DIABETES MELLITUS per A.D.A. criteria. 13-Rgr-113882:07 Basic Metabolic Profile (BMP) Comments: [facility] Zloejspghq9201 [facility] [place], [address] GAP 0 (Abnormal) Range: 5-15 CO2 30.0 [...] 7-18 GLU 101 mg/dL (Normal) Range: 70-110 64-Zqa-908760:07 BNP,B-Type NATRIURETIC PEPTIDE Comments: [facility] Rttzzypmap1883 [facility]. [place], [place], [address] B-TYPE KAE PEP 560.9 pg/mL (Abnormal) Range: 0-100 :04 ALBUMIN SERUM (48224) Comments: PATIENT NOT FASTINGPERFORMED BY: LabCoKessler Institute for RehabilitationCelmad7535 [facility] [id number] Albumin, Serum 3.4 g/dL (Abnormal) Range: 3.5-4.8 45-Xoo-235008:04 BASIC METABOLIC w/Ionized Comments: PATIENT NOT FASTINGPERFORMED BY: LabCoKessler Institute for RehabilitationEnskeu1033 [facility] [id number] Information: [id number] Ca++ (12804) Calcium, Serum 8.5 mg/dL (Abnormal) Range: 8.6-10.2 [...] Glucose, Serum 171 mg/dL (Abnormal) Range: 65-99 6-Xwi-782034:34 Calcium Ionized Comments: [facility] (refer to report for specific site)refer to report for address and phone number [place]ED [place] 4800 Test not performed (Normal) Comments: Patient has been credited for testing not performed. Pleasehave patient return if testing is still required. :36 Anion Gap Comments: [facility] B[address]ruhaovd[address] [place], [place], [address] GAP 3 (Abnormal) Range: 5-15 8-Dvt-727138:36 BUN 18 mg/dL (Normal) Comments: [facility] Eabdwexgll[address] [place], [place], [address] Range: 7-18 6-Nmu-307692:36 BUN/Creat Ratio Comments: [place] [address] [address] [id number] BUN/CRE 11.0 {RATIO} (Normal) Range: 10-20 1-Hfx-771905:[id number] Carbon Dioxide Comments: [address] [address] CO2 30.0 mmol/L (Normal) Range: 21.0-32.0 [id number]-[id number] Chloride Comments: [address] [address] CL 109 mmol/L (Abnormal) Range: 98-107 :36 Creatinine, Serum Comments: [address] [address] CREAT,SERUM 1.64 mg/dL (Abnormal) Range: 0.70-1.30 Comments: The validity of the calculated GFR AND GFRAA in patients over70 years has not been determined. Clinical correlation isessential. :36 Glucose Comments: [address], [id number](733 GLU 157 mg/dL (Abnormal) Range: 70-110 Comments: Fasting Glucose result greater than or equal to 126 mg/dLsuggests DIABETES MELLITUS per A.D.A. criteria. :36 Potassium Comments: [address] [place] [id number] K 4.3 mmol/L (Normal) Range: 3.5-5.1 3-Vwm-439392:36 Sodium Level Comments: [address] [place], [id number](210 NA 142 mmol/L (Normal) Range: 136-145 55-Hlw-817134:36 Urinalysis, Office (74151) UA - LEUKOCYTE ESTERASE Negative (Normal) UA - NITRITE Negative (Normal) URINE UROBILINGN KATELIN TIMED Normal mg/dL (Normal) UA - PROTEIN Negative mg/dL (Normal) UA - PH 6.0 (Normal) Comments: 5.5 UA - BLOOD Hemolyzed Trace (Normal) UA - SPECIFIC GRAVITY 1.005 (Normal) UA - KETONES Negative mg/dL (Normal) UA - BILIRUBIN Negative (Normal) UA - GLUCOSE Negative (Normal) 97-Aai-433202:06 Metabolic Panel, Basic Comments: PATIENT NOT FASTINGPERFORMED BY: [employer] [facility] [id number] Information: [id number]; will review at next appt. (61788) Calcium, Serum 9.3 mg/dL (Normal) Range: 8.6-10.2 [...] Glucose, Serum 111 mg/dL (Abnormal) Range: 65-99 38-Dly-010949:07 URINE DAWIT CULTURE-IDENTIFICATN Comments: PATIENT NOT FASTINGPERFORMED BY: [employer] [facility] [id number] (07809) Result 1 MUG (Normal) Comments: Mixed urogenital flora1,000 Colonies/mL Urine Culture,Comprehensive Final report (Normal) 48-Pjs-941678:07 URINALYSIS (90276) Comments: PATIENT NOT FASTINGPERFORMED BY: Global Data SolutionsKessler Institute for RehabilitationDwxqij0617 [facility] [id number] Information: [id number] Microscopic Examination MICNIP (Normal) Comments: Microscopic not indicated and not performed. Nitrite, Urine Negative (Normal) Urobilinogen,Semi-Qn 0.2 mg/dL (Normal) Range: 0.2-1.0 Bilirubin Negative (Normal) Occult Blood Negative (Normal) Ketones Negative (Normal) Glucose Negative (Normal) Protein Negative (Normal) WBC Esterase Negative (Normal) Appearance Clear (Normal) Urine-Color Yellow (Normal) pH 6.0 (Normal) Range: 5.0-7.5 Specific [place] 1.010 (Normal) Range: 1.005-1.030 4-Elm-258502:02 Basic Metabolic Profile (BMP) Comments: [facility] [address] [place], [address] GAP 9 (Normal) Range: 5-15 [...] 126 mg/dLsuggests DIABETES MELLITUS per A.D.A. criteria. 7-Bvg-952950:02 BNP,B-Type NATRIURETIC PEPTIDE Comments: [facility] [address] [place], [address] B-TYPE KAE PEP 202.1 pg/mL (Abnormal) Range: 0-100 53-Djb-479094:55 BNP,B-Type NATRIURETIC PEPTIDE Comments: [facility] [address] [place], [address] B-TYPE KAE PEP 288.3 pg/mL (Abnormal) Range: 0-100 44-Fek-324473:48 BNP,B-Type NATRIURETIC PEPTIDE Comments: [facility] [address] [place], [place], [address] B-TYPE KAE PEP 231.4 pg/mL (Abnormal) Range: 0-100 11-Zxa-072000:33 ASSAY, NATIURETIC PEPTIDE Comments: PATIENT NOT FASTINGPERFORMED BY: [facility] Qifpdq9255 [facility] [id number] Information: [id number] (40428) B-Type Natriuretic Peptide 296.5 pg/mL (Abnormal) Range: 0.0-100.0 21-Rqd-525677:15 Basic Metabolic Profile (BMP) Comments: Serial Specimen #1, #2 or #3? 1'TROP' Serial specimen #1, #2, #3, or #4: [facility] [address]mdnn[address] [place], [place], [address] GAP 7 (Normal) Range: 5-15 CO2 24.0 [...] 126 mg/dLsuggests DIABETES MELLITUS per A.D.A. criteria. 43-Ogw-036540:15 BNP,B-Type NATRIURETIC PEPTIDE Comments: [facility] [address] [place], [place], [address] B-TYPE KAE PEP 200.1 pg/mL (Abnormal) Range: 0-100 33-Qec-107979:15 CBC W/Diff, Automated Comments: [facility] [address] [place], [place], [id number] Absolute Lymph 1.42 {X10_3/ul} (Normal) Range: 0.83-4.51 [...] 4.6-6.2 WBC 7.6 K/mm3 (Normal) Range: 4.4-11.0 98-Psn-884240:15 CK-MB Quantitative and Index Comments: Serial Specimen #1, #2 or #3? 1'TROP' Serial specimen #1, #2, #3, or #4: [address] [place] [address] [address] [place], [address] CKRI 1.6 % (Abnormal) Range: 0.0-1.4 Comments: RELATIVE INDEX >1.5% IS PRESUMPTIVELY POSITIVE CPKMB 3.3 ng/mL (Normal) Range: 0.0-5.0 Comments: CK-MB and RI Interpretation MB Relative Index Non-AMI <or= 5 NA Indeterminate > 5 <or= 4 AMI > 5 > 4 CPK TOTAL 208 U/L (Normal) Range: 39-308 64-Ige-099723:15 Troponin-I Comments: Serial Specimen #1, #2 or #3? 1'TROP' Serial specimen #1, #2, #3, or #4: [address] [place] [address] [address] [place], [address] TROPONIN-I 0.03 ng/mL (Normal) Comments: TROPONIN-I EXPECTED VALUES <0.05 NEGATIVE 0.06 - 0.59 AT RISK OF ME > OR = 0.60 SUGGEST ME 74-Rma-626180:06 HgA1C , Office (03892) HgA1C , Office 8.0 % (Abnormal) Range: 4.6 - 7.1 47-Rog-762009:06 Blood Glucose , Office (25565) Blood Glucose , Office 143 (Normal) 4-Xby-154657:12 BUN 15 mg/dL (Normal) Comments: Test performed at:[facility] [address] [place] [address] Range: 7-18 5-Kdk-182771:12 Partial Thromboplast Time Comments: Test performed at:[facility] [address] [place] [address] PTT 25.9 s (Normal) Range: 24.1-36.2 1-Rbz-772072:12 Platelet Count Comments: Test performed at:[facility] [address] [place] [address] PLT 243 K/mm3 (Normal) Range: 150-450 8-Wyd-718589:12 Prothrombin Time w/INR Comments: Test performed at:[facility] [address] [place] [address] INR 0.9 (Normal) PROTIME 12.3 s (Normal) Range: 11.7-14.9 5-Pow-128704:12 Serum Creatinine AND GFR Comments: Test performed at:[facility] [address] [place] [address] CREAT,SERUM 1.3 mg/dL (Normal) Range: 0.8-1.3 :09 HgA1C , Office (58214) HgA1C , Office 7.1 % (Normal) Range: 4.6 - 7.1 :09 Blood Glucose , Office (05122) Blood Glucose , Office 141 (Normal) :43 BUN 14 mg/dL (Normal) Range: 7-18 :43 CRE CREAT 1.1 mg/dL (Normal) Range: 0.8-1.3 :43 PLT 184 K/mm3 (Normal) Range: 150-450 :43 PT INR 0.9 (Normal) PTP 12.4 s (Normal) Range: 11.7-14.9 Comments: Please note revised PROTIME reference range qohbnnjin20/14/15. :43 PTT 26.3 s (Normal) Range: 24.1-36.2 47-Osv-429408:25 HgA1C , Office (94232) HgA1C , Office 6.7 % (Normal) Range: 4.6 - 7.1 26-Ova-788004:25 Blood Glucose , Office (15164) Blood Glucose , Office 140 (Normal) 51-Jvd-293283:25 Microscopic Examination Comments: PATIENT WAS FASTINGPERFORMED BY: LabCoKessler Institute for RehabilitationThorac1025 [facility] [id number] Bacteria None seen (Normal) Mucus Threads Present (Normal) Epithelial Cells (non renal) None seen {/hpf} (Normal) Range: 0 - 10 RBC 0-3 {/hpf} (Normal) Range: 0 - 3 Comments: Effective September 04, 2013 the reference interval for RBC will be changing to: 0 - 2 /hpf. WBC 0-5 {/hpf} (Normal) Range: 0 - 5 43-Dqx-197306:47 LIPID PANEL (72985) Comments: PATIENT WAS FASTINGPERFORMED BY: [employer] [facility] [id number] LDL/HDL Ratio 2.7 {ratio_units} (Normal) Range: 0.0-3.6 LDL Cholesterol Calc 90 mg/dL (Normal) Range: 0-99 HDL Cholesterol 33 mg/dL (Abnormal) Comments: According to ATP-III Guidelines, HDL-C >59 mg/dL is considered anegative risk factor for CHD. VLDL Cholesterol Bharat 27 mg/dL (Normal) Range: 5-40 Triglycerides 133 mg/dL (Normal) Range: 0-149 Cholesterol, Total 150 mg/dL (Normal) Range: 100-199 :47 Vitamin D Hydroxy (95421) Comments: PATIENT WAS FASTINGPERFORMED BY: [employer] Ddmgdy5176 [facility] [id number] Vitamin D, 25-Hydroxy 28.7 ng/mL (Abnormal) Range: 30.0-100.0 Comments: Vitamin D deficiency has been defined by the Kimberly ofMedicine and an Endocrine Society practice guideline as alevel of serum 25-OH vitamin D less than 20 ng/mL (1,2).The Endocrine Society went on to further define vitamin Dinsufficiency as a level between 21 and 29 ng/mL (2).1. IOM (Kimberly of Medicine). 2010. Dietary reference intakes for calcium and D. [place]: The National Academies Press.2. Marcelle MF, Justin NC, Amira ELIAS, et al. Evaluation, treatment, and prevention of vitamin D deficiency: an Endocrine Society clinical practice guideline. JCEM. 2010; 96(7):1911-30.; ADDENDA: appt 21-Aug-201311:47 TSH (10193) Comments: PATIENT WAS FASTINGPERFORMED BY: [employer] Zdqjnv8779 [facility] [id number] TSH 1.700 {uIU/mL} (Normal) Range: 0.450-4.500 27-Yoi-387028:47 URINALYSIS, W/ MICRO (93224) Comments: PATIENT WAS FASTINGPERFORMED BY: Global Data SolutionsKessler Institute for RehabilitationVspkni1711 [facility] [id number] Microscopic Examination See below: (Normal) Microscopic Examination MICRON (Normal) Comments: Microscopic follows if indicated. Nitrite, Urine Negative (Normal) Urobilinogen,Semi-Qn 1.0 mg/dL (Normal) Range: 0.0-1.9 Bilirubin Negative (Normal) Occult Blood Negative (Normal) Ketones Negative (Normal) Glucose Negative (Normal) Protein Negative (Normal) WBC Esterase Negative (Normal) Appearance Clear (Normal) Urine-Color Yellow (Normal) pH 6.0 (Normal) Range: 5.0-7.5 Specific [place] 1.019 (Normal) Range: 1.005-1.030 59-Cbd-703853:47 MICROALBUMIN: CREATININE RATIO Comments: PATIENT WAS FASTINGPERFORMED BY: VoyageByMeKessler Institute for RehabilitationYdxioh4208 [facility] [id number] (66032) AND (82172) Microalb/Creat Ratio 5.9 {mg/g_creat} (Normal) Range: 0.0-30.0 Microalbumin, Urine 10.0 ug/mL (Normal) Range: 0.0-17.0 Creatinine, Urine 169.3 mg/dL (Normal) Range: 22.0-328.0 25-Cll-507961:47 METABOLIC PANEL, COMPREHENSIVE Comments: PATIENT WAS FASTINGPERFORMED BY: Global Data SolutionsKessler Institute for RehabilitationFaehri5125 [facility] [id number] (95476) ALT (SGPT) 13 [iU]/L (Normal) Range: 0-44 [...] Glucose, Serum 118 mg/dL (Abnormal) Range: 65-99 83-Wxh-625071:47 CBC WITH MANUAL DIFF Comments: PATIENT WAS FASTINGPERFORMED BY: LabMober[facility] Tonfed3769 [facility] [id number] Information: [id number] (94152) Immature Grans (Abs) 0.0 {x10E3/uL} (Normal) Range: [...] (Normal) Range: 3.4-10.8 :38 HgA1C , Office (53856) HgA1C , Office 6.2 % (Normal) Range: 4.6 - 7.1 60-Siz-389691:38 Blood Glucose , Office (69218) Blood Glucose , Office 119 (Normal) 52-Ojg-200092:28 HgA1C , Office (40490) HgA1C , Office 6.7 % (Normal) Range: 4.6 - 7.1 33-Fha-565504:28 Blood Glucose , Office (97034) Blood Glucose , Office 131 (Normal) 80-Via-834635:08 MICROALBUMIN: CREATININE RATIO Comments: PATIENT WAS FASTINGPERFORMED BY: Tour Desk70 [facility]ibleGainsAdvent[facility]ville [id number] (46531) AND (05417) Microalb/Creat Ratio 14.3 {mg/g_creat} (Normal) Range: 0.0-30.0 Microalbumin, Urine 24.5 ug/mL (Abnormal) Range: 0.0-17.0 Creatinine, Urine 171.3 mg/dL (Normal) Range: 22.0-328.0 28-Qlx-038092:46 Microscopic Examination Comments: PATIENT NOT FASTINGPERFORMED BY: Anywhere.FMAdventHealth [facility]ville [id number] Bacteria Few (Normal) Mucus Threads Present (Normal) Epithelial Cells (non renal) 0-10 {/hpf} (Normal) Range: 0 - 10 RBC 0-3 {/hpf} (Normal) Range: 0 - 3 WBC 0-5 {/hpf} (Normal) Range: 0 - 5 :46 TSH (33806) Comments: PATIENT NOT FASTINGPERFORMED BY: [employer] Data SolutionsMiners' Colfax Medical CenterGvrlat5850 [facility] [id number] TSH 2.720 {uIU/mL} (Normal) Range: 0.450-4.500 :46 URINALYSIS, W/ MICRO (12165) Comments: PATIENT NOT FASTINGPERFORMED BY: M2GMary [facility] Hospital6370 [facility] [id number] Microscopic Examination See below: (Normal) Microscopic Examination MICRON (Normal) Comments: Microscopic follows if indicated. Nitrite, Urine Negative (Normal) Urobilinogen,Semi-Qn 1.0 mg/dL (Normal) Range: 0.0-1.9 Bilirubin Negative (Normal) Occult Blood Negative (Normal) Ketones Negative (Normal) Glucose Negative (Normal) Protein Negative (Normal) WBC Esterase Negative (Normal) Appearance Clear (Normal) Urine-Color Yellow (Normal) pH 6.0 (Normal) Range: 5.0-7.5 Specific [place] 1.015 (Normal) Range: 1.005-1.030 :46 MICROALBUMIN: CREATININE RATIO Comments: PATIENT NOT FASTINGPERFORMED BY: Global Data SolutionsKessler Institute for RehabilitationNzyfvo6903 [facility] [id number] (02690) AND (19006) Microalb/Creat Ratio 10.0 {mg/g_creat} (Normal) Range: 0.0-30.0 Microalbumin, Urine 12.6 ug/mL (Normal) Range: 0.0-17.0 Creatinine, Urine 125.8 mg/dL (Normal) Range: 22.0-328.0 :46 METABOLIC PANEL, COMPREHENSIVE Comments: PATIENT NOT FASTINGPERFORMED BY: Global Data SolutionsKessler Institute for RehabilitationKnxnsy7432 [facility] [id number] (10293) ALT (SGPT) 18 [iU]/L (Normal) Range: 0-44 [...] Glucose, Serum 116 mg/dL (Abnormal) Range: 65-99 05-Uvo-677950:46 LIPID PANEL (78294) Comments: PATIENT NOT FASTINGPERFORMED BY: Arachnys6370 VisibleGainsAdventHealth Hendersonville [id number] LDL/HDL Ratio 2.1 {ratio_units} (Normal) Range: 0.0-3.6 LDL Cholesterol Calc 94 mg/dL (Normal) Range: 0-99 VLDL Cholesterol Bharat 31 mg/dL (Normal) Range: 5-40 HDL Cholesterol 44 mg/dL (Normal) Comments: According to ATP-III Guidelines, HDL-C >59 mg/dL is considered anegative risk factor for CHD. Triglycerides 155 mg/dL (Abnormal) Range: 0-149 Cholesterol, Total 169 mg/dL (Normal) Range: 100-199 24-Zie-691528:46 CBC WITH MANUAL DIFF Comments: PATIENT NOT FASTINGPERFORMED BY: Arachnys6370 [facility] BiomedicalCaroMont [facility] [id number] Information: [id number] (72178) Immature Grans (Abs) 0.0 {x10E3/uL} (Normal) Range: [...] (Normal) Range: 4.0-10.5 :38 HgA1C , Office (41344) HgA1C , Office 6.9 % (Normal) Range: 4.6 - 7.1 :38 Blood Glucose , Office (20259) Blood Glucose , Office 124 (Normal) :08 HgA1C , Office (92271) HgA1C , Office 6.5 % (Normal) Range: 4.6 - 7.1 :10 Blood Glucose , Office (67722) Blood Glucose , Office 129 (Normal) 48-Ltk-665103:08 LIPID PANEL (74836) Comments: PATIENT WAS FASTINGPERFORMED BY: Global Data SolutionsKessler Institute for RehabilitationRsdiqe8638 [facility] [id number] LDL/HDL Ratio 2.2 {ratio_units} (Normal) Range: 0.0-3.6 LDL Cholesterol Calc 97 mg/dL (Normal) Range: 0-99 VLDL Cholesterol Bharat 28 mg/dL (Normal) Range: 5-40 HDL Cholesterol 45 mg/dL (Normal) Comments: According to ATP-III Guidelines, HDL-C >59 mg/dL is considered anegative risk factor for CHD. Triglycerides 140 mg/dL (Normal) Range: 0-149 Cholesterol, Total 170 mg/dL (Normal) Range: 100-199 74-Jom-169690:08 HEPATIC FUNCTION PANEL Comments: PATIENT WAS FASTINGPERFORMED BY: M2GMary [facility] Hospital6370 [facility] [id number] Information: [id number] (35261) ALT (SGPT) 25 [iU]/L (Normal) Range: 0-55 [...] (Normal) Range: 6.0-8.5 :55 HgA1C , Office (30120) HgA1C , Office 6.9 % (Normal) Range: 4.6 - 7.1 :55 Blood Glucose , Office (15354) Blood Glucose , Office 126 (Normal) 79-Rms-260619:07 Hemoglobin Glyclated (HGB Comments: PATIENT NOT FASTINGPERFORMED BY: [place] 2807970 [facility] [id number] Information: [id number] A1C) (12018) Hemoglobin A1c 6.8 % (Abnormal) Range: 4.8-5.6 Comments: . Increased risk for diabetes: 5.7 - 6.4 Diabetes: >6.4 Glycemic control for adults with diabetes: <7.0 92-Vht-725982:58 Microscopic Examination Comments: PATIENT WAS FASTINGPERFORMED BY: LabPeter Ville 1722770 [facility] [id number] Bacteria Few (Normal) Mucus Threads Present (Normal) Epithelial Cells (non renal) None seen {/hpf} (Normal) Range: 0 - 10 RBC 0-3 {/hpf} (Normal) Range: 0 - 3 WBC 0-5 {/hpf} (Normal) Range: 0 - 5 11-Tct-705123:58 PSA Total+% Free Comments: PATIENT WAS FASTINGPERFORMED BY: LabMary [facility] Bed Rehabilitation Hospital6370 [facility] [id number] Information: [id number] % Free PSA 16.3 % (Normal) Comments: [...] Comments: Temo ECLIA methodology. .According to the [place] U[employer] Association, Serum PSA shoulddecrease and remain [...] WAR (Normal) Comments: PATIENT WAS FASTINGPERFORMED BY: [employer] Griwth9762 [place] SunpremeCaroMont [facility] [id number] 3:58 Comments: Written Authorization Received.Authorization received from DR. STYLES [id number] by Machelle Trejo 49-Xbx-009689:07 ASSAY, PSA, FREE (49116) Comments: PATIENT NOT FASTINGPERFORMED BY: [employer] Ztzwjz7315 [place] SunpremeCaroMont Regional [facility] [id number] Information: [id number],2ND ORDER NO DRAW F EE % Free [...] PSA, Free 2.01 ng/mL (Normal) Comments: Temo 3Pillar GlobalIA methodology. Prostate Specific Ag, Serum 11.4 ng/mL (Abnormal) Range: 0.0-4.0 Comments: Temo ECLIA methodology. .According to the [place] U[employer] Association, Serum PSA shoulddecrease and remain [...] Total/Direct, Serum Comments: PATIENT NOT FASTINGPERFORMED BY: M2GCo Sgnwli[address] [facility] [id number] Bilirubin, Indirect 1.53 mg/dL (Abnormal) Range: 0.10-0.80 Bilirubin, Direct 0.37 mg/dL (Normal) Range: 0.00-0.40 Bilirubin, Total 1.9 mg/dL (Abnormal) Range: 0.0-1.2 :17 Prostate-Specific Ag, Serum Comments: PATIENT NOT FASTINGPERFORMED BY: LabCo Gluyya5715 [facility] [id number] Prostate Specific Ag, 11.5 ng/mL (Abnormal) Range: 0.0-4.0 Serum Comments: Sherpa Digital MediaIA methodology. .According to the [place] Urological Association, Serum PSA shoulddecrease and remain [...] Total+% Free Comments: PATIENT NOT FASTINGPERFORMED BY: [employer] Iuvrou9132 [facility] [id number] % Free PSA 19.7 % (Normal) Comments: [...] Comments: Temo ECLIA methodology. .According to the [place] U[employer] Association, Serum PSA shoulddecrease and remain [...] SPRCS (Normal) Comments: PATIENT NOT FASTINGPERFORMED BY: [employer] Ojjpmt0636 [address] [place] [id number] :17 Comments: This report has been generated by your request for additional testing.The additional request may have required some testing to be repeated.Because of analytic variability, the results may not correspond exactly to the previous report. Interpret these results appropriately. Written Authorization WAR (Normal) Comments: PATIENT NOT FASTINGPERFORMED BY: [employer] [facility] Ptmvfy4482 [place] SunpremeDublin [place] [id number] :17 Comments: Written Authorization Received.Authorization received from VICKI STYLES DO [id number] by Candi Salazar :01 Microscopic Examination Comments: PATIENT WAS FASTINGPERFORMED BY: CB [facility] Bdfvtg9625 [address] SunpremeDublin [place] [id number] Bacteria None seen (Normal) Mucus Threads Present (Normal) Epithelial Cells (non renal) None seen {/hpf} (Normal) Range: 0 - 10 RBC None seen {/hpf} (Normal) Range: 0 - 3 WBC 0-5 {/hpf} (Normal) Range: 0 - 5 :01 Vitamin D Hydroxy (05385) Comments: PATIENT WAS FASTINGPERFORMED BY: CB [facility] Hkhqju6638 [address] RoadDublin [place] [id number] Vitamin D, 25-Hydroxy 17.2 ng/mL (Abnormal) Range: 30.0-100.0 Comments: Vitamin D deficiency has been defined by the Kimberly ofMedicine and an Endocrine Society practice guideline as alevel of serum 25-OH vitamin D less than 20 ng/mL (1,2).The Endocrine Society went on to further define vitamin Dinsufficiency as a level between 21 and 29 ng/mL (2).1. IOM (Kimberly of Medicine). 2010. Dietary reference intakes for calcium and D. [place]: The National Academies Press.2. Marcelle MF, Justin PURCELL, Amira ELAIS, et al. Evaluation, treatment, and prevention of vitamin D deficiency: an Endocrine Society clinical practice guideline. JCEM. 2010; 96(7):1911-30. :01 PSA (PROSTATE SPECIFIC Comments: PATIENT WAS FASTINGPERFORMED BY: [facility]aloUofL [facility] [id number] ANTIGEN) (V76.44) Prostate Specific Ag, 7.6 ng/mL (Abnormal) Range: 0.0-4.0 Serum Comments: [employer] ECLIA methodology. .According to the [place] Urological Association, Serum PSA shoulddecrease and remain at undetectable levels after radicalprostatectomy. The AUA defines biochemical recurrence as an initialPSA value 0.2 ng/mL or greater followed by a subsequent confirmatoryPSA value 0.2 ng/mL or greater.Values obtained with d ifferent assay methods or kits cannot be usedinterchangeably. Results cannot be interpreted as absolute evidenceof the presence or absence of malignant disease. :01 TSH (78025) Comments: PATIENT WAS FASTINGPERFORMED BY: Arachnys6370 VisibleGainsAdventHealth Hendersonville [id number] TSH 2.530 {uIU/mL} (Normal) Range: 0.450-4.500 :01 URINALYSIS, W/ MICRO (47611) Comments: PATIENT WAS FASTINGPERFORMED BY: Tour Desk70 VisibleGainsAdventHealth Hendersonville [id number] Microscopic Examination See below: (Normal) Microscopic Examination MICRON (Normal) Comments: Microscopic follows if indicated. Nitrite, Urine Negative (Normal) Urobilinogen,Semi-Qn 0.2 mg/dL (Normal) Range: 0.0-1.9 Bilirubin Negative (Normal) Occult Blood Negative (Normal) Ketones Negative (Normal) Glucose Negative (Normal) Protein Negative (Normal) WBC Esterase Negative (Normal) Appearance Clear (Normal) Urine-Color Yellow (Normal) pH 6.5 (Normal) Range: 5.0-7.5 Specific [place] 1.015 (Normal) Range: 1.005-1.030 :01 MICROALBUMIN: CREATININE RATIO Comments: PATIENT WAS FASTINGPERFORMED BY: [employer] Hwmthi6992 [facility] [id number] (90248) AND (08329) Microalb/Creat Ratio 30.3 {mg/g_creat} (Abnormal) Range: 0.0-30.0 Microalbumin, Urine 33.5 ug/mL (Abnormal) Range: 0.0-17.0 Creatinine, Urine 110.7 mg/dL (Normal) Range: 22.0-328.0 : METABOLIC PANEL, COMPREHENSIVE Comments: PATIENT WAS FASTINGPERFORMED BY: Arachnys6370 [facility] [id number] (12959) ALT (SGPT) 23 [iU]/L (Normal) Range: 0-55 [...] mg/dL (Abnormal) Range: 65-99 :01 LIPID PANEL (53472) Comments: PATIENT WAS FASTINGPERFORMED BY: [facility] [id number] LDL/HDL Ratio 2.5 {ratio_units} (Normal) Range: 0.0-3.6 [...] MANUAL DIFF Comments: PATIENT WAS FASTINGPERFORMED BY: Tour Desk70 [facility] [id number] Information: [id number] (39519) Immature Grans (Abs) 0.0 {x10E3/uL} (Normal) Range: [...] (Normal) Range: 4.0-10.5 :24 HgA1C , Office (85423) HgA1C , Office 6.7 % (Normal) Range: 4.6 - 7.1 :24 Blood Glucose , Office (55470) Blood Glucose , Office 131 (Normal) :50 HgA1C , Office (38582) HgA1C , Office 6.3 % (Normal) Range: 4.6 - 7.1 :50 Blood Glucose , Office (26884) Blood Glucose , Office 116 (Normal) :05 HgA1C , Office (79849) HgA1C , Office 6.7 % (Normal) Range: 4.6 - 7.1 :58 URINALYSIS, W/ MICRO (38208) Comments: PATIENT WAS FASTINGPERFORMED BY: LabCoKessler Institute for RehabilitationKcgcgs0460 [facility] [id number] Microscopic Examination See below: (Normal) Microscopic Examination MICRON (Normal) Comments: Microscopic follows if indicated. Nitrite, Urine Negative (Normal) Urobilinogen,Semi-Qn 0.2 mg/dL (Normal) Range: 0.0-1.9 Bilirubin Negative (Normal) Occult Blood Negative (Normal) Ketones Negative (Normal) Glucose Negative (Normal) Protein Negative (Normal) WBC Esterase Negative (Normal) Appearance Clear (Normal) Urine-Color Yellow (Normal) pH 6.5 (Normal) Range: 5.0-7.5 Specific [place] 1.015 (Normal) Range: 1.005-1.030 56-Xjf-498469:58 METABOLIC PANEL, COMPREHENSIVE Comments: PATIENT WAS FASTINGPERFORMED BY: [facility] Ppdqay4826 [facility] [id number] (20099) ALT (SGPT) 23 [iU]/L (Normal) Range: 0-55 [...] MANUAL DIFF Comments: PATIENT WAS FASTINGPERFORMED BY: LabCoKessler Institute for RehabilitationNjfmrt7908 [place] [facility] [id number] Information: [id number] (68395) Immature Grans (Abs) 0.0 {x10E3/uL} (Normal) Range: [...] {x10E3/uL} (Normal) Range: 4.0-10.5 :58 LIPID PANEL (78996) Comments: PATIENT WAS FASTINGPERFORMED BY: [facility]6370 [facility] [id number] LDL/HDL Ratio 2.7 {ratio_units} (Normal) Range: 0.0-3.6 [...] CREATININE RATIO Comments: PATIENT WAS FASTINGPERFORMED BY: [place] [id number] [facility] [id number] ([id number]) AND (30265) Microalb/Creat Ratio 16.0 {mg/g_creat} (Normal) Range: 0.0-30.0 Microalbumin, Urine 22.3 ug/mL (Abnormal) Range: 0.0-17.0 Creatinine, Urine 139.1 mg/dL (Normal) Range: 22.0-328.0 :58 TSH (80754) Comments: PATIENT WAS FASTINGPERFORMED BY: [facility] [id number] TSH 3.200 {uIU/mL} (Normal) Range: 0.450-4.500 :44 TSH (87094) Comments: PATIENT WAS FASTINGPERFORMED BY: [facility] [id number] TSH 2.540 {uIU/mL} (Normal) Range: 0.450-4.500 :44 MICROALBUMIN: CREATININE RATIO Comments: PATIENT WAS FASTINGPERFORMED BY: [place] [id number] [facility] [id number] (36291) AND (45172) Microalb/Creat Ratio 22.8 {mg/g_creat} (Normal) Range: 0.0-30.0 Microalbumin, Urine 47.4 ug/mL (Abnormal) Range: 0.0-17.0 Creatinine, Urine 207.7 mg/dL (Normal) Range: 22.0-328.0 :44 CBC with manual diff Comments: PATIENT WAS FASTINGPERFORMED BY: [facility]CoK[facility] RehabilitationRblojf6313 [facility]Ad[facility] [id number] Information: ADD [id number] AND DRAW FEE 99 1426 (68508) Immature Grans (Abs) 0.0 {x10E3/uL} (Normal) Range: [...] Panel, Comprehensive Comments: PATIENT WAS FASTINGPERFORMED BY: [employer] [facility] [id number] (35543) ALT (SGPT) 22 [iU]/L (Normal) Range: 0-55 [...] mg/dL (Abnormal) Range: 65-99 :44 Lipid Panel (98199) Comments: PATIENT WAS FASTINGPERFORMED BY: [employer] [facility] SolutionsMiners' Colfax Medical CenterIpvdlk8751 [facility] [id number]; appt 11/26/10 LDL Cholesterol Calc 109 mg/dL (Abnormal) Range: 0-99 LDL/HDL Ratio 2.4 {ratio_units} (Normal) Range: 0.0-3.6 HDL Cholesterol 46 mg/dL (Normal) Comments: According to ATP-III Guidelines, HDL-C >59 mg/dL is considered anegative risk factor for CHD. VLDL Cholesterol Bharat 37 mg/dL (Normal) Range: 5-40 Triglycerides 183 mg/dL (Abnormal) Range: 0-149 Cholesterol, Total 192 mg/dL (Normal) Range: 100-199 45-Pkc-420060:56 Vitamin D Hydroxy Comments: PATIENT NOT FASTINGPERFORMED BY: [facility] [id number] Information: [id number] (99034) Vitamin D, 25-Hydroxy 19.4 ng/mL (Abnormal) Range: 32.0-100.0 Comments: Recent studies consider the lower limit of 32.0 ng/mL to be athreshold for optimal health.Ashu JIMENEZ. J Nutr. 2004;135(2):317-22. :03 HEPATIC FUNCTION PANEL Comments: PATIENT WAS FASTINGPERFORMED BY: [facility]6370 [facility] [id number] Information: [id number] (76305) Alkaline Phosphatase, S 72 [iU]/L (Normal) Range: 25-160 ALT (SGPT) 24 [iU]/L (Normal) Range: 0-55 AST (SGOT) 21 [iU]/L (Normal) Range: 0-40 Bilirubin, Direct 0.38 mg/dL (Normal) Range: 0.00-0.40 Albumin, Serum 4.0 g/dL (Normal) Range: 3.6-4.8 Bilirubin, Total 1.6 mg/dL (Abnormal) Range: 0.0-1.2 Protein, Total, Serum 6.9 g/dL (Normal) Range: 6.0-8.5 :03 LIPID PANEL (30763) Comments: PATIENT WAS FASTINGPERFORMED BY: [facility] [id number] LDL/HDL Ratio 1.7 {ratio_units} (Normal) Range: 0.0-3.6 LDL Cholesterol Calc 66 mg/dL (Normal) Range: 0-99 VLDL Cholesterol Bharat 36 mg/dL (Normal) Range: 5-40 Cholesterol, Total 141 mg/dL (Normal) Range: 100-199 HDL Cholesterol 39 mg/dL (Abnormal) Comments: According to ATP-III Guidelines, HDL-C >59 mg/dL is considered anegative risk factor for CHD. Triglycerides 179 mg/dL (Abnormal) Range: 0-149 12-Svh-59172:55 CBC WITH MANUAL DIFF Comments: PATIENT NOT FASTINGPERFORMED BY: [facility] Potccj0533 [facility] [id number] Information: [id number] (45940) Immature Grans (Abs) 0.0 {x10E3/uL} (Normal) Range: [...] 9.0 {x10E3/uL} (Normal) Range: 4.0-10.5 :55 Magnesium (06059) Comments: PATIENT NOT FASTINGPERFORMED BY: [facility]MA[facility]vent[facility] [id number] Magnesium, Serum 2.1 mg/dL (Normal) Range: 1.6-2.6 :55 Metabolic Panel, Basic (29519) Comments: PATIENT NOT FASTINGPERFORMED BY: [facility]MA[facility] [id number] Calcium, Serum 9.3 mg/dL (Normal) Range: 8.6-10.2 [...] Microscopic Examination Comments: PATIENT WAS FASTINGPERFORMED BY: [employer]70 [employer] BiomedicalCaroMont [facility] [id number] Bacteria None seen (Normal) Cast Type Hyaline casts (Normal) Casts Present {/lpf} (Abnormal) Epithelial Cells (non renal) 0-10 {/hpf} (Normal) Range: 0 - 10 Mucus Threads Present (Normal) RBC 0-3 {/hpf} (Normal) Range: 0 - 3 WBC 0-5 {/hpf} (Normal) Range: 0 - 5 :42 TSH (11673) Comments: PATIENT WAS FASTINGPERFORMED BY: [employer] [facility] [id number] TSH 3.120 {uIU/mL} (Normal) Range: 0.450-4.500 :42 URINALYSIS, W/ MICRO (86456) Comments: PATIENT WAS FASTINGPERFORMED BY: [employer] [facility] [id number] Microscopic Examination See below: (Normal) Bilirubin Negative (Normal) Glucose Negative (Normal) Ketones Negative (Normal) Nitrite, Urine Negative (Normal) Occult Blood Negative (Normal) Urobilinogen,Semi-Qn 0.2 mg/dL (Normal) Range: 0.0-1.9 Appearance Clear (Normal) pH 6.0 (Normal) Range: 5.0-7.5 Protein Negative (Normal) Urine-Color Yellow (Normal) WBC Esterase Trace (Abnormal) Specific [place] 1.020 (Normal) Range: 1.005-1.030 :42 MICROALBUMIN: CREATININE RATIO Comments: PATIENT WAS FASTINGPERFORMED BY: [employer] Zisnjq4750 [facility] [id number] (76008) AND (85190) Microalb/Creat Ratio 14.6 {mg/g_creat} (Normal) Range: 0.0-30.0 Microalbumin, Urine 26.0 ug/mL (Abnormal) Range: 0.0-17.0 Creatinine, Urine 178.3 mg/dL (Normal) Range: 22.0-328.0 :42 METABOLIC PANEL, COMPREHENSIVE Comments: PATIENT WAS FASTINGPERFORMED BY: [employer] Tdsryw9944 [facility] [id number] ([id number]) Alkaline Phosphatase, S 68 [iU]/L (Normal) Range: [...] Glucose, Serum 129 mg/dL (Abnormal) Range: 65-99 72-Wjk-08909:42 LIPID PANEL (61970) Comments: PATIENT WAS FASTINGPERFORMED BY: [employer] Fpoeyd6134 [facility] [id number] LDL/HDL Ratio 2.5 {ratio_units} (Normal) Range: 0.0-3.6 LDL Cholesterol Calc 103 mg/dL (Abnormal) Range: 0-99 HDL Cholesterol 42 mg/dL (Normal) Comments: According to ATP-III Guidelines, HDL-C >59 mg/dL is considered anegative risk factor for CHD. Triglycerides 147 mg/dL (Normal) Range: 0-149 VLDL Cholesterol Bharat 29 mg/dL (Normal) Range: 5-40 Cholesterol, Total 174 mg/dL (Normal) Range: 100-199 26-Yxj-44837:42 CBC WITH MANUAL DIFF Comments: PATIENT WAS FASTINGPERFORMED BY: [facility] [id number] Information: ADD [id number] AND DRAW FEE 99 3411 (40250) Immature Grans (Abs) 0.0 {x10E3/uL} (Normal) Range: [...] (MT) Radiology See Note Comments: Exam Number: [id number] LINICAL:69-year-old man with pain in the left [...] CHOL 194 mg/dL (Normal) Comments: <200 mg/dL Njzplphie495-140 mg/dL Borderline>240 mg/dL High Risk :32 PSA, [...] CHOL 157 mg/dL (Normal) Comments: <200 mg/dL Tlsxqlisy059-362 mg/dL Borderline>240 mg/dL High Risk :54 MICROALB:CRE UR MALB:CREAT 10.3 {mg/g_CRE} (Normal) MICROALBUMIN,UR 19.7 mg/L (Normal) UR CREAT 189.9 mg/dL (Normal) :54 TSH 2.03 {uIU/mL} (Normal) Range: 0.358-3.74 :57 WRIST,MIN 3 VIEWS Radiology Report See Note (Normal) Comments: Exam Number: [id number] LEFT HAND Three views of the left hand were obtained. There is good alignment. No acute abnormality is seen. LEFT WRIST Three views were obtained. There is good ali gnment. No significantabnormality is seen. Reported By: SHAHAB CARLOS :56 CHEST, PA AND LATERAL Radiology Report See Note (Normal) Comments: Exam Number: [id number] CHEST, PA AND LATERAL PA and lateral [...] Report See Note (Normal) Comments: Exam Number: [id number] LEFT HAND Three views of the left [...] 3.5-5.1 NA 141 mmol/L (Normal) Range: 136-145 90-Vkq-851882:41 C-REACTIVE PROT 71.80 mg/L (Abnormal) Range: 0.0-3.0 [...] was performed using the TPSA method for the[facility] chemistry system.Values obtained with different assay methods cannot be usedinterchangably.When changing PSA assays in the course of monito ring apatient, additional sequential testing should be carriedout to confirm baseline values. :32 TSH 1.81 {uIU/mL} (Normal) Range: 0.34-4.82 31-Dkq-621675:46 Vitamin D Hydroxy (06084) Comments: PATIENT NOT FASTINGClinical Information: ADD DRAW FEE 501001 ADD [id number] PERFORMED BY: [employer] [address] [id number] Vitamin D, 25-Hydroxy 56.3 ng/mL (Normal) Range: 32.0-100.0 Comments: Recent studies consider the lower limit of 32.0 ng/mL to be athreshold for optimal health.Ashu JIMENEZ. J Nutr. 2004;135(2):317-22. 49-Aqu-581454:46 VITAMIN D, 1, 25-DIHYDROXY Comments: PATIENT NOT FASTINGPERFORMED BY: [employer] [address] [id number] ([id number]) Vitamin D, 1,25 Dihydroxy 31.0 pg/mL (Normal) Range: 15.9-55.6 44-Efl-212852:28 CBCD,SMEAR DIFF Comments: GETS LIPID,LIVER,CBCMD,MICROAB.JOANNE VÁZQUEZ GETS [...] mg/dL VLDL 41 mg/dL (Abnormal) Range: 5-40 97-Imj-396952:28 MG 1.7 mg/dL (Normal) Comments: GETS LIPID,LIVER,CBCMD,MICROAB.JOANNE VÁZQUEZ GETS CMP,PHOS,MG,VITD,CBC, Range: 1.5-2.2 15-Vrj-769624:28 MICROALBUMIN,UR 6.9 mg/L (Normal) Comments: GETS LIPID,LIVER,CBCMD,MICROAB.JOANNE VÁZQUEZ GETS CMP,PHOS,MG,VITD,CBC, 51-Tfq-879648:28 PHOS 3.2 mg/dL (Normal) Comments: GETS LIPID,LIVER,CBCMD,MICROAB.JOANNE VÁZQUEZ GETS CMP,PHOS,MG,VITD,CBC, Range: 2.5-4.9 64-Otk-220482:28 VIT D,25 03543 29.9 ng/mL (Abnormal) Comments: GETS LIPID,LIVER,CBCMD,MICROAB.JOANNE VÁZQUEZ GETS CMP,PHOS,MG,VITD,CBC, Range: 32.0-100.0 Comments: Recent studies consider the lower limit of 32.0 ng/mL to binta threshold for optimal health.Ashu JIMENEZ. J Nutr. 2004;135(2):317-22.Performed At: [facility]6[address] [place], [place] [id number] 20-Jqb-565217:57 VITAMIN D, 1, 25-DIHYDROXY Comments: PATIENT NOT FASTINGClinical Information: ADD DRAW FEE [id number] ADD J [id number] PERFORMED BY: [facility] [id number] ([id number]) Vitamin D, 1,25 Dihydroxy 38.4 pg/mL (Normal) Range: 15.9-55.6 90-Tpl-660610:30 LIPID CHOL 176 mg/dL (Normal) Comments: <200 [...] mg/dL VLDL 41 mg/dL (Abnormal) Range: 5-40 53-Wcn-579780:30 LIVER ALB 3.7 g/dL (Normal) Range: 3.4-5.0 ALK P 57 U/L (Normal) Range: 50-136 ALT 41 U/L (Normal) Range: 30-65 AST 23 U/L (Normal) Range: 15-37 D BILI 0.16 mg/dL (Normal) Range: 0.00-0.30 T BILI 1.63 mg/dL (Abnormal) Range: 0.00-1.00 T PROT 6.9 g/dL (Normal) Range: 6.4-8.2 :46 CHEST, PA AND LATERAL Radiology Report See Note (Normal) Comments: Exam Number: [id number] PA AND LATERAL CHEST CLINICAL STATEMENTCough for [...] 6.4-8.2 :34 MICROALBUMIN,UR 14.3 mg/L (Normal) :34 PTH,[id number] Comments: PLASMA ALDOSTERONE PTH,Intact 63 pg/mL (Normal) Range: 12-65 Comments: Performed At: [address] [id number] At: [address] [id number] :34 RENIN,PL 2006 0.38 {ng/mL/hr} Comments: PLASMA [...] {uIU/mL} (Normal) Range: 0.34-4.82 :34 VIT D,25 69740 20.2 ng/mL (Abnormal) Comments: PLASMA ALDOSTERONE Range: 32.0-100.0 Comments: Recent studies consider the lower limit of 32.0 ng/mL to binta threshold for optimal health.Ashu JIMENEZ. J Nutr. 2004;135(2):317-22. 50-Kpo-45419:00 PROST BX P-PROSB (Normal) Comments: OPERATION Needle [...] RICCI:yanique 11/23/06 TC:3 REPORT SIGNED: TRINI DIAMOND 11/24/0623-Sep-200691-Ogo-514034:35 LIPID CHOL 135 mg/dL (Normal) Comments: <200 [...] was performed using the TPSA method for the[employer] chemistry system.Values obtained with different assay methods [...] 137 mmol/L (Normal) Range: 136-145 :14 PSA [id number] COMMENT Comment (Normal) Comments: The percent free PSA is performed on a reflex basis onlywhen the total PSA is between 4.0 and 10.0 ng/mL.Performed At: [address]ox [address]Dublin, [place] [id number] At: [facility]NL[facility] [place], [place] [id number] PSA, FREE 0.77 ng/mL (Normal) PSA, FREE [...] ng/mL (Abnormal) Range: 0.0-4.0 Comments: Alex (formerly [employer] [facility] methodology Plan of Care Name Dates [...] kidney disease Elevated parathyroid hormone : Reviewed Cook Fruit Letter Indication: Elevated parathyroid hormone Elevated parathyroid [...] disease Coronary artery disease, occlusive : Reviewed [employer] Letter Indication: Coronary artery disease, occlusive Coronary [...] occlusive Coronary artery disease, occlusive : Reviewed [employer] Fruit Letter Indication: Coronary artery disease, occlusive Malignant [...] in both knees, unspecified chronicity : Reviewed [employer] Letter Indication: Pain in both knees, unspecified [...] hyperlipidemia Coronary artery disease, occlusive : Reviewed [employer] Fruit Letter Indication: Coronary artery disease, occlusive Malignant [...] insulin Coronary artery disease, occlusive : Reviewed [employer] Fruit Letter Indication: Coronary artery disease, occlusive Malignant [...] disease Coronary artery disease, occlusive : Reviewed [employer] Fruit Letter Indication: Coronary artery disease, occlusive Controlled [...] insulin Atrial fibrillation, unspecified type : Reviewed [employer] Fruit Letter Indication: Atrial fibrillation, unspecified type Nonsmoker [...] chronic diastolic congestive heart failure : Reviewed [employer] Fruit Letter Indication: Acute on chronic diastolic congestive heart failure Fluid overload : Reviewed Lab Indication: Fluid overload Fluid overload : Reviewed Diagnostic Tests Indication: Fluid overload Atrial fibrillation, unspecified type : Reviewed Cook Fruit Letter Indication: Atrial fibrillation, unspecified type Hypertensive [...] on chronic systolic heart failure : Reviewed Cook Fruit Letter Indication: Acute on chronic systolic heart failure Bilateral edema of lower extremity : Reviewed Lab Indication: Bilateral edema of lower extremity Acute on chronic systolic heart failure : Reviewed Cook Fruit Letter Indication: Acute on chronic systolic heart [...] of breath on exertion Coronary atherosclerosis of hughes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 : Reviewed Cook Fruit Letter Indication: 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 : Reviewed Diagnostic Tests Indication: Coronary atherosclerosis of hughes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 Acute systolic congestive heart failure : Follow up in 3 weeks- fu on chf and edema and std process Indication: Acute systolic congestive heart failure Bilateral edema of lower extremity : Follow up in wednesday - quick yessenia Indication: Bilateral edema of lower extremity Coronary atherosclerosis of hughes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 : Eprescribed prescriptions (G8553) Indication: Coronary atherosclerosis of hughes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 Acute systolic congestive heart failure : Reviewed Diagnostic Tests Indication: Acute systolic congestive heart failure Acute systolic congestive heart failure : Continue Current Prescription(s) Indication: Acute systolic congestive heart failure Acute systolic congestive heart failure : Reviewed Cook Fruit Letter Indication: Acute systolic congestive heart failure Shortness of breath on exertion : Follow up wednesday for yessenia on lower extrem edema- and sob & lab Indication: Shortness of breath on exertion Atherosclerosis of hughes coronary artery without angina pectoris, unspecified whether hughes or transplanted heart : Reviewed [employer] Fruit Letter Indication: Atherosclerosis of hughes coronary artery without angina pectoris, unspecified whether hughes or transplanted heart Mixed hyperlipidemia : Cholesterol [...] Cholesterol mgmt Indication: Hyperlipidemia Coronary atherosclerosis of hughes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 : Reviewed Cook Fruit Letter Indication: Coronary atherosclerosis of hughes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 Diabetes mellitus type 2, uncontrolled, [...] annual wellness exam Elevated PSA : Reviewed Cook Fruit Letter: milagro neal Indication: Elevated PSA 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 : Continue Current Prescription(s) 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 : Reviewed Lab Indication: Coronary atherosclerosis of hughes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 Hyperlipidemia : Cholesterol mgmt Indication: [...] and congestive heart failure Coronary atherosclerosis of hughes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 : Reviewed Cook Fruit Letter Indication: Coronary atherosclerosis of hughes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 Diabetes mellitus without complication (Renamed from Diabetes mellitus with no complication) : Diabetes Mellitus: Type 2 *: diabetes type 2 Indication: Diabetes mellitus without complication (Renamed from Diabetes mellitus with no complication) CVA (cerebral infarction) : Reviewed Cook Fruit Letter: neuro wants to do a brain [...] brain MRI Abnormal brain MRI : Reviewed Cook Fruit Letter Indication: Abnormal brain MRI Malignant hypertension [...] Vitamin D deficiency, unspecified Coronary atherosclerosis of hughes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 : Reviewed Cook Fruit Letter Indication: Coronary atherosclerosis of hughes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 Hyperlipidemia : Cholesterol mgmt Indication: [...] mellitus with no complication) Coronary atherosclerosis of hughes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 : Reviewed Cook Fruit Letter Indication: Coronary atherosclerosis of hughes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 Diabetes mellitus type 2, uncontrolled, [...] mellitus with no complication) Coronary atherosclerosis of hughes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 : Reviewed Cook Fruit Letter Indication: Coronary atherosclerosis of hughes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 Malignant hypertension with renal disease [...] 2, uncontrolled, without complications Coronary atherosclerosis of hughes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 : Reviewed Cook Fruit Letter Indication: Coronary atherosclerosis of hughes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 Hyperlipidemia : Cholesterol mgmt Indication: [...] with renal disease Elevated PSA : Reviewed Cook Fruit Letter Indication: Elevated PSA Vitamin D deficiency, [...] mgmt Indication: Mixed 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 : Reviewed Cook Fruit Letter Indication: Coronary atherosclerosis of hughes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 Hypertensive heart disease : Diet, [...] mgmt Indication: Mixed 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 : Reviewed [employer] Fruit Letter Indication: Coronary atherosclerosis of hughes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 Hypertensive heart disease : HTN/CAD [...] Wt loss Indication: Obesity, morbid Atherosclerosis of hughes coronary artery without angina pectoris, unspecified whether hughes or transplanted heart : Reviewed Cook Fruit Letter Indication: Atherosclerosis of hughes coronary artery without angina pectoris, unspecified whether hughes or transplanted heart Hypertensive heart disease : [...] pain : FOLLOW UP IN 2 WEEKS [facility] Indication: Knee pain Obesity, morbid : [...] Nonprescription Treatment Indication: Hyperlipidemia Coronary atherosclerosis of hughes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 : Reviewed Cook Fruit Letter Indication: Coronary atherosclerosis of hughes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 Hypertensive heart disease : Diet, [...] of breath at rest Coronary atherosclerosis of hughes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 : Reviewed [employer] Letter Indication: Coronary atherosclerosis of hughes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 Hypertensive heart disease : Diet, [...] Side Effects Indication: Mixed hyperlipidemia Atherosclerosis of hughes coronary artery without angina pectoris, unspecified whether hughes or transplanted heart : Reviewed [employer] Letter Indication: Atherosclerosis of hughes coronary artery without angina pectoris, unspecified whether hughes or transplanted heart Hypertensive heart disease : [...] obstructive pulmonary disease Elevated PSA : Reviewed Cook Fruit Letter prostate bx negative Indication: Elevated PSA Hypertensive heart disease : Reviewed Cook Fruit Letter Indication: Hypertensive heart disease Hyperlipidemia : [...] - Strool Based DNA Test, CRC SCREEN (81973)Indication: Encounter for screening for malignant neoplasm of colon (Renamed from Special screening for malignant neoplasms, colon) On: 27-Gls-682867:47 Request TSH (23591)Indication: 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, without long-term current use of insulin On: 3-Gvm-741007:20 Request URINALYSIS, W/ MICRO (88958)Indication: 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 On: 2-Ggk-892783:19 Request MICROALBUMIN: CREATININE RATIO (07846) AND (38411)Indication: 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 On: 1-Rqa-978365:19 Request METABOLIC PANEL, COMPREHENSIVE (84460)Indication: 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 On: :19 Request LIPID PANEL (07801)Indication: 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 On: :19 Request CBC with auto diff (75614)Indication: 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 On: :19 Request CALCIFEDIOL (32638)Indication: Vitamin D deficiency On: :19 Request CALCIFEDIOL (55875)Indication: Vitamin D deficiency On: 51-Ikp-347476:51 Request PARATHORMONE (64418)Indication: Elevated parathyroid hormone On: 00-Bwf-435264:51 Request URINALYSIS, W/ MICRO (03662)Indication: Diabetes mellitus without complication (Renamed from Diabetes mellitus with no complication) On: :17 Request MICROALBUMIN: CREATININE RATIO (73760) AND (58348)Indication: Diabetes mellitus without complication (Renamed from Diabetes mellitus with no complication) On: :17 Request CALCIFIDIOL (91869) VIT D 25Indication: Vitamin D deficiency, unspecified On: :39 Request TSH (91498)Indication: 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, without long-term current use of insulin On: :39 Request URINALYSIS, W/ MICRO (22832)Indication: 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, without long-term current use of insulin On: :39 Request MICROALBUMIN: CREATININE RATIO (78431) AND (83590)Indication: 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, without long-term current use of insulin On: :39 Request METABOLIC PANEL, COMPREHENSIVE (02892)Indication: 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, without long-term current use of insulin On: :39 Request LIPID PANEL (38111)Indication: 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, without long-term current use of insulin On: :39 Request CBC W/AUTO DIFF WBC (83324)Indication: 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, without long-term current use of insulin On: :39 Request TSH (93393)Indication: Diabetes mellitus type 2, uncontrolled, without complications On: 76-Icq-863436:04 Request URINALYSIS, W/ MICRO (29621)Indication: Diabetes mellitus type 2, uncontrolled, without complications On: 54-Qea-048243:04 Request MICROALBUMIN: CREATININE RATIO (43479) AND (03238)Indication: Diabetes mellitus type 2, uncontrolled, without complications On: 01-Exf-576668:04 Request METABOLIC PANEL, COMPREHENSIVE (92604)Indication: Diabetes mellitus type 2, uncontrolled, without complications On: :04 Request LIPID PANEL (84045)Indication: Mixed hyperlipidemia On: : Request CBC W/AUTO DIFF WBC (41395)Indication: Diabetes mellitus type 2, uncontrolled, without complications On: :03 Request FECAL OCCULT- Tubes sent home (18076)Indication: Encounter for screening for malignant neoplasm of colon (Renamed from Special screening for malignant neoplasms, colon) On: 8-Yky-516394:21 Request Metabolic Panel, Basic (79385)Indication: Renal insufficiency On: 8-Dmh-712971:41 Request Comments: wednesday Metabolic Panel, Basic (78976)Indication: Renal insufficiency On: 05-Jul-2015 Request Metabolic Panel, Basic (38854)Indication: Renal insufficiency On: 03-Wta-096145:41 Request BASIC METABOLIC w/Ionized Ca++ (50950)Indication: Short of breath on exertion On: 9-Psu-274844:31 Request METABOLIC PANEL, BASIC (64970)Indication: Abnormal blood chemistry On: 9-Zqh-147562:23 Request Metabolic Panel, Basic (45426)Indication: Acute systolic congestive heart failure On: 6-Rqw-006771:54 Request Metabolic Panel, Basic (35721)Indication: Atrial fibrillation, unspecified type On: 46-Ffv-956044:04 Request ASSAY, NATIURETIC PEPTIDE ([id number])Indication: Atrial fibrillation, unspecified type On: 68-Ojg-661274:04 Request ASSAY, NATIURETIC PEPTIDE ([id number])Indication: Bilateral edema of lower extremity On: 11-Ogf-196738:13 Request ASSAY, NATIURETIC PEPTIDE ([id number])Indication: Acute systolic congestive heart failure On: 74-Sys-696595:39 Request Comments: re check in 1-2 weeks PSA (Medicare - G0103) ([id number])Indication: Elevated PSA On: :17 Request TSH ([id number])Indication: Diabetes mellitus type 2, uncontrolled, without complications On: :16 Request URINALYSIS, W/ MICRO ([id number])Indication: Diabetes mellitus type 2, uncontrolled, without complications On: :16 Request MICROALBUMIN: CREATININE RATIO ([id number]) AND ([id number])Indication: Diabetes mellitus type 2, uncontrolled, without complications On: :16 Request METABOLIC PANEL, COMPREHENSIVE ([id number])Indication: Diabetes mellitus type 2, uncontrolled, without complications On: :16 Request LIPID PANEL ([id number])Indication: Diabetes mellitus type 2, uncontrolled, without complications On: :16 Request CBC with auto diff ([id number])Indication: Diabetes mellitus type 2, uncontrolled, without complications On: :16 Request CALCIFIDIOL ([id number]) VIT D 25Indication: Vitamin D deficiency, unspecified On: :16 Request Vitamin D Hydroxy ([id number])Indication: Vitamin D deficiency, unspecified On: 5-Szg-454010:05 Request URINALYSIS, W/ MICRO ([id number])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 On: 3-Ybk-473829:04 Request MICROALBUMIN: CREATININE RATIO ([id number]) AND ([id number])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 On: 4-Uxv-812292:04 Request METABOLIC PANEL, COMPREHENSIVE ([id number])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 On: 9-Gfq-478125:04 Request LIPID PANEL ([id number])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 On: :04 Request CBC WITH MANUAL DIFF ([id number])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 On: 8-Fsh-471731:04 Request FECAL OCCULT- Tubes sent home ([id number])Indication: Encounter for routine history and physical exam for male On: 71-Cpe-394460:09 Request CALCIFIDIOL (44343) VIT D 25Indication: Vitamin D deficiency, unspecified On: :11 Request PSA TOTAL +%FREE [id number] ([id number])Indication: Elevated PSA On: 1-Iha-122052:14 Request BILIRUBIN, TOTAL & DIRECT ([id number])Indication: Other specified abnormal findings of blood chemistry On: 6-Ncd-990982:14 Request Glucose, PP/2 Hour (40034)Indication: Other specified abnormal findings of blood chemistry On: 65-Wei-754528:03 Request CALCIFIDIOL ([id number]) VIT D 25Indication: Vitamin D deficiency, unspecified On: 25-Cup-486504:31 Request TSH ([id number])Indication: Hypertensive heart disease On: : Request URINALYSIS, W/ MICRO ([id number])Indication: Hypertensive heart disease On: :28 Request MICROALBUMIN: CREATININE RATIO ([id number]) AND ([id number])Indication: Hypertensive heart disease On: : Request METABOLIC PANEL, COMPREHENSIVE ([id number])Indication: Hypertensive heart disease On: : Request CBC WITH MANUAL DIFF ([id number])Indication: Hypertensive heart disease On: : Request PSA (PROSTATE SPECIFIC ANTIGEN) (V76.44)Indication: Elevated PSA On: :25 Request LIPID PANEL ([id number])Indication: Hyperlipidemia On: 77-Kif-971257:23 Request Comments: do for next appt- 4mo Metabolic Panel, Basic ([id number])Indication: Pain of hand, unspecified laterality On: 46-Muq-912560:42 Request URIC ACID BLOOD (40049)Indication: Pain of hand, unspecified laterality On: 58-Yav-416456:42 Request C-REACTIVE PROTEIN ([id number])Indication: Pain of hand, unspecified laterality On: 63-Rfd-989122:52 Request SED RATE ERYTHROCYTE ([id number])Indication: Pain of hand, unspecified laterality On: 10-Lgs-047071:52 Request CBC WITH MANUAL DIFF ([id number])Indication: Pain of hand, unspecified laterality On: 33-Cmw-820960:51 Request Magnesium ([id number])Indication: Hypokalemia On: :25 Request Potassium Serum (99105)Indication: Hypokalemia On: 65-Oki-489089:25 Request Comments: do in 2 weeks Vitamin D Hydroxy ([id number])Indication: Vitamin D deficiency, unspecified On: 91-Kph-249037:23 Request Glucose, PP/2 Hour (01866)Indication: Other specified abnormal findings of blood chemistry On: 09-Nei-250309:18 Request LIPID PANEL ([id number])Indication: Hyperlipidemia On: 73-Jwm-656860:45 Request Comments: DO IN 3 MONTHS HEPATIC FUNCTION PANEL (22748)Indication: Hyperlipidemia On: 92-Qld-758063:45 Request HEPATIC FUNCTION PANEL (02612)Indication: Hyperlipidemia On: 46-Mqn-632365:54 Request LIPID PANEL ([id number])Indication: Hyperlipidemia On: 86-Ltu-438363:54 Request Comments: do in 3 months PARATHORMONE ([id number])Indication: Vitamin D deficiency, unspecified On: 96-Afq-467388:45 Request CALCIUM SERUM ([id number])Indication: Vitamin D deficiency, unspecified On: 43-Kwq-643620:45 Request VITAMIN D, 1, 25-DIHYDROXY ([id number])Indication: Vitamin D deficiency, unspecified On: 68-Tvj-817716:45 Request VITAMIN D, 25-DIHYDROXY ([id number])Indication: Vitamin D deficiency, unspecified On: 17-Hrk-049301:45 Request LIPID PANEL ([id number])Indication: Hyperlipidemia On: 02-Zys-242329:44 Request Planned Procedures INTENSIVE BEHAVIORAL THERAPY TO On: 15-Nov-2017 Intent REDUCE CARDIOVASCULAR DISEASE RISK, INDIVIDUAL, [id number], ANNUAL, 15 MINUTES ([id number])By: Vicki Styles DO, DO, Kathleen HJZE-JI-ZMJK BEHAVIORAL COUNSELING On: 15-Nov-2017 Intent FOR OBESITY, 15 MINUTES (G0447)By: Vicki Styles DO, DO, Kathleen Spirometry ([id number])By: Neil NG, On: 06-Sep-2017 Intent Vicki Nichols DO Comments: severe obsstyuction and good effort on curve-- addeed dulera - ELECTROCARDIOGRAM, COMPLETE (ECG) On: 06-Sep-2017 Intent ([id number])By: Vicki Styles DO Comments: a fib- rate controlled - no acute findings Vicki Styles DO X-RAY OF HAND, THREE VIEWS On: 17-Jun-2017 Intent ([id number])By: Vicki Styles DO Comments: Right hand Vicki Styles DO PARATHYROID SCAN ([id number])By: Neil On: 17-Jun-2017 Intent Vicki NG DO Vicki Overnight Pulse OX ([id number])By: On: 04-Jun-2017 Intent Vicki Styles DO DOVicki OGJC-IA-UVND BEHAVIORAL COUNSELING On: 09-Nov-2016 Intent FOR OBESITY, 15 MINUTES (G0447)By: Vicki Styles DO NeilVicki santos DO INTENSIVE BEHAVIORAL THERAPY TO On: 09-Nov-2016 Intent REDUCE CARDIOVASCULAR DISEASE RISK, INDIVIDUAL, [id number]-MC-[id number], ANNUAL, 15 MINUTES (G0446)By: Vicki Styles DO, DO, Kathleen ELECTROCARDIOGRAM, COMPLETE (ECG) On: 10-Sep-2016 Intent ([id number])By: Vicki Styles DO Comments: chronic chg - afib/flutter - rate controlled Vicki Styles DO SIX MINUTE WALK TEST ([id number])By: On: 26-Mar-2016 Intent Vicki Styles DO DOVicki Overnight Pulse OX ([id number])By: On: 09-Mar-2016 Intent Vicki Styles DO DO, Vicki Overnight Pulse OX ([id number])By: On: 04-Mar-2016 Intent Vicki Styles DO, DO, Kathleen Spirometry (24066)By: Neil NG, On: 04-Mar-2016 Intent Vicki Nichols DO Comments: pt admits not using inhalers - restrictive pattern - refilled inhalers - symbicort nad spiriva and will yessenia in one month INTENSIVE BEHAVIORAL THERAPY TO On: 07-Nov-2015 Intent REDUCE CARDIOVASCULAR DISEASE RISK, INDIVIDUAL, DARV-BC-UAYM, ANNUAL, 15 MINUTES (G0446)By: Vicki Styles DO Neil DOVicki RCFT-ZT-BMOD BEHAVIORAL COUNSELING On: 07-Nov-2015 Intent FOR OBESITY, 15 MINUTES (G0447)By: Vicki Styles DO, DO, Kathleen Radiology - Chest- PA and LatBy: On: 18-Apr-2015 Intent Vicki Styles DO, DO, Kathleen Echo CompleteBy: Neil NG, On: 18-Apr-2015 Intent Vicki Nichols DO Prevnar 13 ([id number])By: Neil NG, On: 16-Jan-2014 Intent Vicki Nichols DO Prevnar 13 ([id number])By: Neil NG, On: 16-Jan-2014 Intent Vicki Nichols DO Comments: [id number] arm, 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, 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 Overnight Pulse OX ([id number])By: On: 03-Jan-2014 Intent Vicki Styles DO, DO, Kathleen Six Minute Walk Assessment On: 28-Dec-2013 Intent ([id number])By: Vicki Styles DO DO, Vicki HUAL-CP-KGKY BEHAVIORAL COUNSELING On: 23-Nov-2013 Intent FOR OBESITY, 15 MINUTES (G0447)By: Vicki Styles DO, DO, Vicki INTENSIVE BEHAVIORAL THERAPY TO On: 19-Oct-2013 Intent REDUCE CARDIOVASCULAR DISEASE RISK, INDIVIDUAL, ZXSU-QF-[id number], ANNUAL, 15 MINUTES (G0446)By: Vicki Styles DO, DO, Vicki JKBZ-ZZ-NPCO BEHAVIORAL COUNSELING On: 19-Oct-2013 Intent FOR OBESITY, 15 MINUTES (G0447)By: Vicki Styles DO, DO, Kathleen Radiology - Chest- PA and LatBy: On: 24-Aug-2013 Intent Vicki Styles DO, DO, Vicki Aerosol Treatment ([id number])By: On: 24-Aug-2013 Intent Vicki Styles DO Neil DO, Comments: no wheeze and much more a/e Vicki Eprescribed prescriptions On: 15-May-2013 Intent (G8553)By: Leora Fnoseca LPN Eprescribed prescriptions On: 20-Mar-2013 Intent (G8553)By: Vicki Styles DO Neil DO, Vicki INTENSIVE BEHAVIORAL THERAPY TO On: 17-Oct-2012 Intent REDUCE CARDIOVASCULAR DISEASE RISK, INDIVIDUAL, [id number]-NF-XVGN, ANNUAL, 15 MINUTES (G0446)By: Vicki Styles DO DO, Vicki LLFN-HE-MFGI BEHAVIORAL COUNSELING On: 17-Oct-2012 Intent FOR OBESITY, 15 MINUTES (G0447)By: Vicki Styles DO, DO, Kathleen EKG ([id number])By: Neil NG, On: 17-Oct-2012 Intent Vicki Neil DO, Vicki Eprescribed prescriptions On: 17-Oct-2012 Intent (G8553)By: Leora Fonseca LPN Six Minute Walk Assessment On: 28-Jul-2012 Intent ([id number])By: Aleksandr HUTSON, Gay Bio Z (30184)By: Neil DO, On: 18-Jul-2012 Intent Vicki Neil DOJonathanVicki Comments: unable to connect and perform Six Minute Walk Assessment On: 18-Jul-2012 Intent ([id number])By: Vicki Styles DO Comments: set up Neil DO, Vicki Eprescribed prescriptions On: 22-Apr-2012 Intent (G8553)By: Leora Fonseca LPN Spirometry ([id number])By: Neil NG, On: 21-Jan-2012 Intent Vicki Neil DO Vicki Comments: poor effort Eprescribed prescriptions On: 21-Jan-2012 Intent (G8553)By: Leora Fonseca LPN PFT - CompleteBy: Neil NG, On: 21-Oct-2011 Intent Vicki Neil DO, Vicki EKG ([id number])By: Neil NG, On: 21-Oct-2011 Intent VickiVicki Jones DO Comments: nsr no acute chg Eprescribed prescriptions On: 05-Aug-2011 Intent (G8553)By: Leora Fonseca LPN Six Minute Walk Assessment On: 06-Feb-2011 Intent ([id number])By: Naomi Mendez Comments: see scanned documents Six Minute Walk Assessment On: 26-Nov-2010 Intent ([id number])By: Vicki Styles DO Comments: set up Neil DO, Vicki Bio Z ([id number])By: Neil NG, On: 26-Nov-2010 Intent VickiVicki Hernandez DO Comments: norrmal parameters no chg in rx EKG ([id number])By: Neil NG, On: 26-Nov-2010 Intent Vicki NeilVicki santos DO Comments: nsr no acute chgn TDAP VACCINE >7 IM ([id number])By: On: 30-Jul-2010 Intent Vicki Styles DO, DO, Comments: Lot:[id number]:06/26/12Amt:prefilledRoute:IMSite: left deltGiven By: CARYL Edwards Eprescribed prescriptions On: 30-Jul-2010 Intent (G8553)By: Vicki Styles DO, DO, Vicki Bio Z (27823)By: Neil NG, On: 30-Jul-2010 Intent Vicki Nichols DO Comments: STABLE SEE SCANNED DOC -NO CHG IN MEDS EKG ([id number])By: Neil NG, On: 26-Mar-2010 Intent Vicki Styles DO, Vicki Bio Z ([id number])By: Neil NG, On: 26-Mar-2010 Intent Vicki Nichols DO PHYSICAL THERAPY EVALUATION On: 07-Jan-2010 Intent ([id number])By: Elisabet Matos CNP Radiology - Knee - [...] Styles DO Neil DO, Vicki Bio Z ([id number])By: Neil NG, On: 19-Mar-2009 Intent Vicki Nichols DO Comments: ok co and svr EKG (06956)By: Neil NG, On: 19-Mar-2009 Intent Vicki Nichols DO Comments: nsr no acute changes Spirometry (42657)By: Neil NG, On: 19-Mar-2009 Intent Vicki Nichols DO Comments: mild obstructive pattern - Pulse Oximetry (52671)By: Mast RN, On: 19-Mar-2009 Intent Darling EKG (19511)By: Neil NG, On: 25-Jul-2008 Intent Vicki Nichols DO Comments: no acute stable Bio Z ([id number])By: Neil NG, On: 25-Jul-2008 Intent Vicki Nichols DO Comments: stable no changes Six Minute Walk Assessment On: 16-May-2008 Intent ([id number])By: Crystal Reyes Six Minute Walk Assessment On: 23-Mar-2008 Intent ([id number])By: Vicki Styles DO, DO, Kathleen Bio Z (65134)By: Neil NG, On: 23-Mar-2008 Intent Vicki Nichols DO Comments: normal svr and co Radiology - Knee - LeftBy: Neil On: 28-Dec-2007 Intent Vicki NG DO, Kathleen Radiology - Knee - RightBy: Neil On: 28-Dec-2007 Intent Vicki NG DO, Kathleen Bio Z ([id number])By: Neil NG, On: 28-Dec-2007 Intent Vicki Nichols DO Comments: normal svr and co Bio Z ([id number])By: Neil NG, On: 01-Sep-2007 Intent Vicki Nichols DO Comments: HYPERDYNAMIC HEART-- HI CO AND LO SVR Holter Moniter ([id number])By: Neil On: 04-May-2007 Intent Vicki NG DO, Kathleen Comments: set up Bio Z ([id number])By: Neil NG, On: 04-May-2007 Intent Vicki Nichols DO Comments: normal svr and co EKG ([id number])By: Neil NG, On: 04-May-2007 Intent Vicki Nichols DO Comments: nsr some pvc-- no acute ischemic changes Radiology - Chest- PA and LatBy: On: 24-Mar-2007 Intent Vicki Styles DO, DO, Kathleen Aerosol Treatment ([id number])By: On: 24-Mar-2007 Intent Vicki Styles DO, DO, Comments: better air exchange less wheeze and less irritability with cough Vicki Solu- Medrol Injection, 125mg On: 24-Mar-2007 Intent ([id number])By: Vicki Styles DO Comments: given in right hip, 125mg, lot#[id number], exp.-- Vicki Styles DO Spirometry (10273)By: Neil NG, On: 24-Mar-2007 Intent Vicki Nichols DO Comments: severe airway obstruction Pulse Oximetry ([id number])By: Neil On: 24-Mar-2007 Vicki Coates DO, DO, Kathleen Comments: 94% Doppler Ultrasound OtherBy: Neil On: 02-Mar-2007 Vicki Coates DO, DO, Kathleen Comments: R Inhaler Demo (40963)By: Neil NG, On: 27-Jan-2007 Intent Vicki Nichols DO Bio Z ([id number])By: Neil NG, On: 27-Jan-2007 Intent Vicki Nichols DO Comments: normal svr and co Spirometry (79025)By: Neil NG, On: 27-Jan-2007 Intent Vicki Nichols DO Comments: mild obstruction Bio Z (30554)By: Neil NG, On: 11-Oct-2006 Intent Vicki Nichols DO Comments: normal svr and co EKG (16508)By: Neil NG, On: 26-Apr-2006 Intent Vicki Nichols DO Comments: nsr intraventricular conduction delay no acute ischemic changes Holter Moniter ([id number])By: On: 26-Mar-2006 Intent REILLY Moya Instructions Name [...] systolic congestive heart failure Coronary atherosclerosis of hughes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 : How to access health information online Indication: 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 : How to access health information online - Detail Indication: Coronary atherosclerosis of hughes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 Bilateral edema of lower extremity [...] 2, uncontrolled, without complications Coronary atherosclerosis of hughes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 : cardiovascular counseling Indication: Coronary atherosclerosis of hughes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 BMI 37.0-37.9, adult : obesity [...] Indication: Abnormal brain MRI Coronary atherosclerosis of hughes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 : cardiovascular counseling Indication: Coronary atherosclerosis of hughes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 BMI 36.0-36.9,adult : obesity counseling [...] The patient does have durable power of sports attorney and living will. The patient has noticed nothing from the geriatic depression scale. Other providers contributing to the patient's care are elevator constructor electric, banana loader, urologist and other: (endo).Encounter Diagnosis: Nonsmoker, BMI [...] I called squad and I was at [facility] and then I went to [facility] for End: 06-Jan-2017 11:01 heraphy) and a [...] The patient does have durable power of sports attorney and living will. The patient has noticed nothing from the geriatic depression scale. Other providers contributing to the patient's care are elevator constructor electric, urologist and other:.Encounter Diagnosis: Nonsmoker, BMI 35.0-35.9,adult, [...] extremity edema, increase SOB. Recent trip to [place] Encounter Diagnosis: Edema extremities, Fluid overload, Atrial [...] The patient does have durable power of sports attorney and living will. The patient has noticed lack of energy. Other providers contributing to the patient's care are elevator constructor electric and urologist. Encounter Diagnosis: Encounter for Medicare [...] Hypertension with renal disease, Coronary atherosclerosis of hughes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, Chronic kidney disease, stage 3 [...] vivid dreams. Encounter Diagnosis: Coronary atherosclerosis of hughes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, Apnea, BPH (benign prostatic hyperplasia) (600.90), Other urinary incontinence, Bilateral edema of lower extremity, Short of breath on exertion, Non morbid obesity, unspecified obesity type, Therapeutic drug monitoring [facility] Office Visit On: 10-May-2015 10:16 Encounter Diagnosis: Atrial fibrillation, unspecified type, Coronary atherosclerosis of hughes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 (414.01), Acute systolic congestive heart [...] type, Abnormal blood chemistry, Coronary atherosclerosis of hughes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 (414.01) End: 06-May-2015 10:58 Comprehensive [...] deficiency, unspecified, Mixed hyperlipidemia (272.2), Atherosclerosis of hughes coronary artery without angina pectoris, unspecified whether hughes or transplanted heart, History of CVA in [...] weight :. Encounter Diagnosis: Coronary atherosclerosis of hughes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 (414.01), BMI 37.0-37.9, ADULT (V85.37), [...] patient d oes have durable power of sports attorney and living will. The patient has noticed feeling situation is hopeless (recently). Other providers contributing to the patient's care are elevator constructor electric (Dr. 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.93), Diabetes mellitus without complication (Renamed from Diabetes mellitus with no complication), Hyperlipidemia (272.4), Edema (782.3) [facility] Office Visit On: 20-Mar-2013 10:40 Encounter Diagnosis: Hypertension with Heart and Renal Disease (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 The patient has completed the [facility] preventative measures: PSA testing (september 2012) and colonoscopy (around 10 years). The patient does have durable power of sports attorney and living will. The patient has noticed nothing from the geriatic depression scale. Other providers contributing to the patient's care are elevator constructor electric (Dr. Greenfield) and urologist. 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), Hyperlipidemia (272.4), Coronary atherosclerosis of hughes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 (414.01), Unspecified vitamin D deficiency [...] disease (402.90), Hyperlipidemia (272.4), Coronary atherosclerosis of hughes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 (414.01), Edema (782.3) [facility] [...] mellitus without complication (250.00), Coronary atherosclerosis of hughes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 (414.01), Hypertension with Renal Disease [...] II,uncontrolled, no comp (250.02), Coronary atherosclerosis of hughes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 (414.01), Atrial fibrillation (427.31), Benign [...] fibrillation (427.31), COPD (496.), Coronary atherosclerosis of hughes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 (414.01) [facility] Phone [...] fibrillation (427.31), COPD (496.), Coronary atherosclerosis of hughes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 (414.01), Mixed hyperlipidemia (272.2), Hypertensive [...] , Atrial fibrillation (427.31), Coronary atherosclerosis of hughes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 (414.01) [facility] Office [...] Coronary atherosclerosis of unspecified type of vessel, hughes or graft (414.00), COPD (496.), Hyperglycemia (790.29), [...] Coronary atherosclerosis of unspecified type of vessel, hughes or graft (414.00), Atrial fibrillation (427.31), Obesity, [...] Coronary atherosclerosis of unspecified type of vessel, hughes or graft (414.00), Hypertensive heart disease (402.90) [...] Hypertensive heart disease (402.90), Coronary atherosclerosis of hughes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 (414.01), Atrial fibrillation (427.31), Hyperlipidemia [...] Coronary atherosclerosis of unspecified type of vessel, hughes or graft (414.00), Atrial fibrillation (427.31), Hypocalcemia [...] Hypertensive heart disease (402.90), Coronary atherosclerosis of hughes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 (414.01), Hyperlipidemia (272.4), COPD (496.), [...] Coronary atherosclerosis of unspecified type of vessel, hughes or graft (414.00), Atrial fibrillation (427.31), Mixed [...] Coronary atherosclerosis of unspecified type of vessel, hughes or graft (414.00), Atrial fibrillation (427.31), Mixed [...] Coronary atherosclerosis of unspecified type of vessel, hughes or graft (414.00), Atrial fibrillation (427.31), Coronary atherosclerosis of hughes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 (414.01), Unspecified vitamin D deficiency [...] Diagnosis: Atrial fibrillation (427.31), Coronary atherosclerosis of hughes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 (414.01), Hypertensive heart disease (402.90), [...] (402.90), Atrial fibrillation (427.31), Coronary atherosclerosis of hughes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 (414.01), Hyperlipidemia (272.4), Cough (786.2), [...] Hypertensive heart disease (402.90), Coronary atherosclerosis of hughes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 (414.01), Atrial fibrillation (427.31), Hyperlipidemia [...] End: 01-Jan-2006 12:10 Payers Medicare[facility]ICARE FOR LIFE, [facility] [employer]; a guarantor
--- OUTSIDE RECORDS SUMMARY | 2018-04-29 15:50 | XMS RPT_ITS | Continuity of Care Document ---
:1940 Author Organization [facility] Address [facility]7 [facility] [address] [place] [address] Phone Care Team Providers Name Role Phone Neil DO Vicki Unavailable Milagro PHAN, Dr. Mohsen Mckenna Unavailable Physical Therapy, [facility] Unavailable Lesa Alvarado Unavailable Dr. Juan Sin DO Unavailable [facility], Diagnostic Services Unavailable Kimo Roger MD Unavailable Mata Leonard Unavailable [facility] Unavailable Kamaljit PHAN, Dr. Joan Arechiga Unavailable [...] Apnea (R06.81, 786.03) Status: Active Atherosclerosis of [place] coronary artery without angina pectoris, unspecified whether [place] or transplanted heart (I25.10, 414.01) Status: Active [...] as advised by Gin.BP improved at home: 116-135/78-70403/88, 116/78, 125/76, 128/84, 129/77, 140/80.[facility] [employer] palpitations, LH, dizziness, chest pain. 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) Status: Active Hypoxia (R09.02, 799.02) Comments: sleep related and wears at nightmanaged by [employer] Status: Active Influenza vaccination declined (Renamed from [...] tid for 30 days Refills: 0 Ordered:24-Apr-2015 Loera Fonseca LPN Start : 23-Nov-2013 End : [...] 17-Jun-2017 Inactive Comments:on national back order DRISDOL, 85289WWPE (Oral Capsule) 1 Capsule uad for 0 days Quantity: 8 {Capsule} Refills: 4 Ordered:21-Jan-2012 Leora Fosneca LPN Start : 31-Jul-2010 End : 21-Jan-2012 Inactive Comments:2 tabs q week x 4 mo and then 1 tab weekly ERGOCALCIFEROL, 04656SMLP (Oral Capsule) 1 (one) Capsule tad for [...] Moya Start : 21-Aug-2008 Inactive VITAMIN D3, 71234OQPO (Oral Capsule) 1 Capsule 2 x week [...] : 04-Jun-2017 Discontinued Comments:This order discontinued per [facility]. DIOVAN HCT, 320-25MG (Oral Tablet) 1 (one) [...] Comments:take 1/2 hr prior to lasix Nystatin 281769 UNIT/ML Mouth/Throat Suspension 5 cc cc swish [...] Inactive as of 04-Mar-2016 Coronary atherosclerosis of [place]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 (I25.10, 414.01) Comments: other stent [...] Visit Report Result: Comments: See Note; NOTES: [facility] [address] [place] [address]. [address] [place] [address] OFFICE VISIT Date of Service: 01/13/18 MR#: [id number] Acct: [id number] Name: RAMU DEWITT Rep #: [id number] : 1940 Provider: Jimi Greenfield MD Age/Sex: 77/M Location: [facility] Status: Signed HPI HPI Chief Complaint: Follow up visit Details: RAMU DEWITT, is a 77 M who [facility] today for a cardiovascular outpatient follow-up. Patient [...] Intake Visit Re asons: 6 M FU Licensed Massage Therapist Required: No Accompanied by: none Is patient [...] Confirmed 01/13/18] PFSH Medical History Atherosclerosis of k[place] coronary artery of [place] heart without ang hernán pectoris (Chronic) Mitral valve insufficiency (Chronic) Localized edema (Resolved) Bilateral pleural effusion (Resolved) History of stroke (Chronic) Acute on chronic systolic (congestive) heart fail ure (Chronic) Hyperlipidemia (Chronic) terminal gauger use of drug (Chronic) Ischemic cardiomyopathy (Chronic) FH: sudden cardiac (SCD) (Chronic) 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 of premature coronary heart disease (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) BPH with urinary obstruction (Chronic) Noncompliance [...] 3 Views Result: Comments: See Note; NOTES: [facility] Imaging Services [address] [place] [address] Hand Min 3 Views MR#: [id number] Acct: [id number] Name: RAMU DEWITT Rep #: [id number] DO B: 1940 M 76 From: Andre Crisostomo MD PCP: Vicki Styles DO Status: REG CLI Study: Hand Min 3 Views Date of Exam: 08/20/17 Exam# [id number] Ordering Dr: Lesa Alvarado MD STUDY: X-RAY [...] CC: Vicki Styles DO; Lesa Alvarado MD Destination Specialist: Signed 20-Aug-2017 Hand Min 3 Views Result: Comments: See Note; NOTES: [facility] Imaging Services [address] [place] [address] Hand Min 3 Views MR#: [id number] Acct: [id number] Name: RAMU DEWITT Rep #: [id number] DO B: 1940 M 76 From: Andre Crisostomo MD PCP: Vicki Styles DO Status: REG CLI Study: Hand Min 3 Views Date of Exam: 08/20/17 Exam# [id number] Ordering Dr: Lesa Alvarado MD STUDY: X-RAY [...] CC: Vicki Styles DO; Lesa Alvarado MD Destination Specialist: Signed 20-Aug-2017 Knee 4 or More Views Result: Comments: See Note; NOTES: [facility] Imaging Services [address] [facility] [place] [address] Knee 4 or More Views MR#: [id number] Acct: [id number] Name: RAMU DEWITT Rep #: [id number] : 1940 [facility] From: Andre Crisostomo MD PCP: Vicki Styles DO Status: REG CLI Study: Knee 4 or More Views Date of Exam: 08/20/17 Exam# [id number] Ordering Dr: Lesa Alvarado MD STUDY: X-RAY [...] CC: Vicki Styles DO; Lesa Alvarado MD Destination Specialist: Signed 20-Aug-2017 Knee 4 or More Views Result: Comments: See Note; NOTES: [facility] Imaging Services [address] [address] Knee 4 or More Views MR#: [id number] Acct: [id number] Name: RAMU DEWITT Rep #: [id number] : 1940 M 76 From: Andre Crisostomo MD PCP: Vicki Styles DO Status: REG CLI Study: Knee 4 or More Views Date of Exam: 08/20/17 Exam# [id number] Ordering Dr: Lesa Alvarado MD STUDY: X-RAY [...] CC: Vicki Styles DO; Lesa Alvarado MD Destination Specialist: Signed 24-Jun-2017 Parathyroid Scan Result: Comments: See Note; NOTES: [facility] Imaging Services [address] [place] [address] Parathyroid Scan MR#: [id number] Acct: [id number] Name: RAMU DEWITT Rep #: [id number] DO B: 1940 M 76 From: Rickie Mcelroy DO PCP: Vicki Styles DO Status: REG CLI Study: Parathyroid Scan Date of Exam: 06/24/17 Exam# [id number] Ordering Dr: Vicki Styles DO CLINICAL: 76-year-old [...] efinitive scintigraphic abnormalities are defined. Electronically Signed: Rcikie Mcelroy DO at 11:28 EDT Tel , Service support , CC: Vicki Styles DO Destination Specialist: Signed 17-Jun-2017 Hand Min 3 Views Result: Comments: See Note; NOTES: [facility] Imaging Services [address] [place] [address] Hand Min 3 Views MR#: [id number] Acct: [id number] Name: DEWITTRAMU Rep #: [id number] DO B: 1940 M 76 From: Trung Gonzalez DO PCP: Vicki Styles DO Status: REG CLI Study: Hand Min 3 Views Date of Exam: 06/17/17 Exam# [id number] Ordering Dr: Vicki Styles DO STUDY: X-RAY [...] Service support , CC: Samira Styles DO Destination Specialist: Signed 16-Jun-2017 Cardiology Visit Report Result: Comments: See Note; NOTES: [facility] [place] [address] OFFICE VISIT Date of Service: 06/16/17 MR#: [id number] Acct: [id number] Name: RAMU DEWITT Rep #: [id number] : 1940 Provider: LUIS Sanders Age/Sex: 76/M Location: [facility] Status: Signed HPI HPI Details: RAMU [...] Lt brachial Intake Visit Reasons: 3 M Licensed Massage Therapist Required: No Accompanied by: None Is patient [...] 12/12/16 [Rx Confirmed 06/14/17] Hydrocodone Bitart/Apap 5-325 [[place] 5/325] 1 tab PO Q6H PRN PRN #30 tab 12/12 [Rx Confirmed 06/14/17] apixaban 2.5 mg tablet 2.5 mg PO BID #14 tab 04/08/17 [Rx Confirmed 06/14/17] Ejection fraction %: 40 to 44 PFSH Medical History History of stroke (Chronic) 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 2. Atherosclerosis of [place] coronary artery of [place] heart witho ut angina pectoris I25.10 S/P [...] on any cholesterol lowering medication. 6 . terminal gauger use of drug Z79.899 Plan - TARIQ [...] prior to saving. 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) Coding Level of Care Code Off vis,est,level 3 Diagnoses Cardiomyopathy, ischemic I25.5 Atherosclerosis of [place] coronary artery of [place] heart without angina pectoris I25.10 Persistent atrial fibr illation I48.1 Atrial fibrillation type: persistent Essential hypertension I10 Hypertension type: essential hypertension Mixed hyperlipidemia E78.2 Hyperlipidemia type: mixed hyperlipidemia terminal gauger us e of drug Z79.899 Coding Level of Care Code Off vis,est,level 3 Diagnoses Cardiomyopathy, ischemic I25.5 Atherosclerosis of [place] coronary artery of [place] heart without angina pectoris I25.10 Persi stent atrial fibrillation I48.1 Atrial fibrillation type: persistent Essential hypertension I10 Hypertension type: essential hypertension Mixed hyperlipidemia E78.2 Hyperlipidemia type: mixed hyperlipid emia MCFP use of drug Z79.899 06/16/17 1139 <Electronically signed by Ramu POTTER> Date Ramu POTTER 06/16/17 1417&am p;#60;Electronically signed by Jimi Greenfield MD> Cosigner Signature: Date (if applicable) Jimi Greenfield MD CC: Vicki Styles DO 08-Dec-2016 Emergency Department Summary Result: Comments: See Note; NOTES: [facility] Medical Records Department [address] [place] [address] Emergency Department Summary 12/08/16 1354 MR#: [id number] Acct: [id number] Name: RAMU DEWITT Rep #: [id number] : 1940 75 From: Robe Mary MD [...] [place] [employer] is reading acute inferior NH. I am in disagreement. Chest x-ray reveals [...] problems, contact your Primary Care Provider. Call [employer] [facility] ([phone]) or r bethanyrt to the closest Emergency Room. Call 911 if necessary. 12/08/16 4045 <Electronically signed by Robe Mary MD> Date Robe Mary MD Cosigner Signature (If Indicated): Date CC: Jimi Greenfield MD; Vicki Styles DO 08-Dec-2016 Knee 1 or 2 Views Result: Comments: See Note; NOTES: [facility] Imaging Services [address] [facility] [place] [address] Knee 1 or 2 Views MR#: [id number] Acct: [id number] Name: DEWITTRAMU Rep #: [id number] D OB: 1940 M 75 From: Shahab Carlos MD PCP: Vicki Sytles DO Status: REG ER Study: Knee 1 or 2 Views Date of Exam: 12/08/16 Exam# [id number] Ordering Dr: Robe Mary MD STUDY: X-RAY [...] Shahab Carlos MD at 12:57 EDT Tel [phone], Service support , CC: Vicki Styles DO; Robe Mary MD Destination Specialist: Signed 08-Dec-2016 Chest 1 View (Portable) Result: Comments: See Note; NOTES: [facility] Imaging Services [address] [place] [address] Chest 1 View (Portable) MR#: [id number] Acct: [id number] Name: RAMU DEWITT Rep #: [id number] : 1940 M 75 From: Shahab Carlos MD PCP: Vicki Styles DO Status: REG ER Study: Chest 1 View (Portable) Date of Exam: 12/08/16 Exam# [id number] Ordering Dr: Robe Mary MD STUDY: X- [...] Shahab Carlos MD at 12:58 EDT Tel [phone], Service support , CC: Vicki Styles DO; Robe Mary MD Destination Specialist: Signed 07-Jan-2016 Chest 1 View (Portable) Result: Comments: See Note; NOTES: [facility] Imaging Services [address] [place] [address] Verdana 4d Chest 1 View (Portable) MR#: [id number] Acct: [id number] Name: RAMU DEWITT Rep #: [id number] : 1940 M 75 From: Shahab Carlos MD PCP: Vicki Styles DO Status: [facility] Study: Chest 1 View (Portable) Date of Exam: 01/07/16 Exam# [id number] Ordering Dr: Ron Buchanan MD STUDY: X-RAY [...] Shahab Carlos MD at 15:38 EDT Tel [phone], Service support [phone], CC: Vicki Styles DO; Jerel Buchanan MD Destination Specialist: Signed 13-Nov-2015 Echocardiogram Complete Result: Comments: See Note; NOTES: [facility] Cardiovascular Services [address] [place] [address] Echo Complete 11/13/15 1006 MR#: [id number] Acct: [id number] Name: RAMU DEWITT Rep #: [id number] : 1940 74 From: Jimi Greenfield MD Attending Dr: Precious Cole Status: REG CLI Ordering Dr: Precious Cole Date: 11/13/15 Location: [facility] Sex: M C Admitted: Reas on For [...] Dictated: 11/13/15 1006 Date Transcribed: 11/13/15 1256 Destination Specialist: Signed 08-Oct-2015 ELECTROCARDIOGRAM, COMPLETE (ECG) (30803) Result: [MEASUREMENTS ANALYSIS] Date of Test: 10/08/2015 09:07:11; Heart Rate: 98; KS Interval: 0; QRS: 114; QT Interval: 372; Corrected QT Interval (QTc): 438; P [place]: -90; QRS [place]: -1; T [place]: -33; Blood Pressure: 142/86 [ECG DIAGNOSTIC STATEMENTS] Date of Test: 10/08/2015 09:07:11; Summary: Atrial fibrillation -Nonspecific ST depression + Nonspecific T-abnormality -Nondiagnostic. ABNORMAL 09-Jul-2015 Chest 1 View (Portable) Result: Comments: See Note; NOTES: [facility] Imaging Services [address] [place] [address] Verdana 4d Chest 1 View (Portable) MR#: [id number] Acct: [id number] Name: RAMU MARTIN Rep #: [id number] : 1940 M 74 From: Noa Buchanan MD PCP: Vicki Styles DO Status: REG ER Study: Chest 1 View (Portable) Date of Exam: 07/09/15 Exam# [id number] Ordering Dr: Jerel Buchanan MD STUDY: X-RAY [...] at 17:21 EDT Tel , Service support [phone], RAD/Chest 1 View (Portable) IMPRESSION: New small pleural effusion with right b asilar lung consolidation. Persisting cardiomegaly. Electronically Signed: Noa Buchanan MD at 17:21 EDT Tel , Service support [phone], C C: Vicki Styles DO; Jerel Buchanan MD Destination Specialist: Signed 24-May-2015 Nuclear Stress Test - Chemical Result: Comments: See Note; NOTES: [facility] Imaging Services [address] [place] [address] Lorie 4d Nuclear Stress Test - Chemical MR#: [id number] Acct: [id number] N ani: RAMU DEWITT Rep #: [id number] : 1940 74 From: Jimi Greenfield MD [...] present. Jimi Greenfield MD T: NTS JOB: [id number] <Electronically signed by Jimi Greenfield MD> Date iJmi Greenfield MD CC: Vicki Styles DO Date Dictated: 05/24/15 1253 D ate Transcribed: 05/24/151252 Destination Specialist: Signed 18-Apr-2015 Chest 1 View (Portable) Result: Comments: See Note; NOTES: [facility] Imaging Services [address] [place] [address] Verdana 4d Chest 1 View (Portable) MR#: [id number] Acct: [id number] Name: RAMU MARTIN Rep #: [id number] : 1940 M 74 From: Shahab Carlos MD PCP: Vicki Styles DO Status: REG ER Study: Chest 1 View (Portable) Date of Exam: 04/18/15 Exam# [id number] Ordering D r: Ros Zuniga STUDY: X-RAY [...] Shahab Carlos MD at 13:57 EST Tel [phone], Service support [phone], RAD/Chest 1 View (P ortable) IMPRESSION: Thyromegaly and mild degree of CHF with bibasilar atelectasis. Electronically Signed: Shahab Carlos MD at 13:57 EST Tel [phone], Service support , CC: Ros Zuniga; Vicki Styles DO Destination Specialist: Signed 18-Apr-2015 EKG (56133) Comments: afib with RVR-- 150 -pt admits he hasnt taken bystolic >30 day Result: [MEASUREMENTS ANALYSIS] Date of Test: 04/18/2015 11:50:46; Heart Rate: 150; KS Interval: -612; QRS: 96; QT Interval: 302; Corrected QT Interval (QTc): 459; P [place]: 1; QRS [place]: 15; T [place] : -90; Blood Pressure: 124/82 [ECG DIAGNOSTIC STATEMENTS] Date of Test: 04/18/2015 11:50:46; Summary: Possible atrial fibrillation -Inferior infarct -age undetermined. -Nonspecific ST depression -Nondiagnostic. ABNORMAL -May-2014 Sleep Study Report Result: Comments: See Note; NOTES: [facility] [address] [place] [address] Polysomnography with NCPAP MR#: [id number] Acct: [id number] Name: RAMU DEWITT Rep #: [id number] : 1940 73 From: Cezar Escalante MD PCP: Vicki Styles DO Status: REG CLI Ordering Dr.: Dana Osborne NP-C Date: 05/01/14 Sex: M C REFERRING PHYSICIAN: COREY Shah SLEEP HISTORY: This is a CPAP titration study performed on this 73-year-old male with a body mass index of 36.5 and an [place] Sleepiness Scale score of 8. Diagnostic polysomnogram [...] version). Please note that a reference to [facility] AHI in this report is consistent with the current Hypopnea definition according to Medicare Criteria and an [facility] AHI reference is consistent with the current Hypopnea definition according to the AASM criteria. PROCEDURE: The study was attended continuously by a vacuum technician. Monitored parameters included left and right [...] Study Report Result: Comments: See Note; NOTES: [facility] [address] [place] [address] Polysomnography MR#: [id number] Acct: [id number] Name: RAMU DEWITT Rep #: [id number] : 1940 73 From: Dillon Miner MD PCP: Vicki Styles DO Status: REG CLI Ordering Dr.: Vicki Styles DO Date: 03/08/14 Sex: M C REFERRING PHYSICIAN: Dr. Styles. SLEEP HIS TORY: The patient is a 73-year-old gentleman with a calculated body mass index of 36.5 and an [place] Sleepiness Scale score of 8/24. He complains [...] version). Please note that a reference to [facility] AHI in this report is consistent with the current Hypopnea definition according t o Medicare Criteria and an [facility] AHI reference is consistent with the current Hypopnea definition according to the AASM criteria. PROCEDURE: The study was attended continuously by a vacuum technician. Monitored parameters included left and right EOG, frontal, central, and occipital EEG, mental and submental EMG, left and right anterior tibialis EMG, signal ECG waveform, snore, continuous airflow w ith thermistor and nasal pressure transducer, chest and abdominal plethysmography efforts, oxygen saturation with heart rate, and body positioning with video monitoring. SLEEP STUDY DATA: [facility] began at 0939:27 p.m. and ended at 156634 a.m. for a total recording time of [...] Co-signature (if applicable) Date Signed 28-Dec-2013 Spirometry (23194) Result: 29-Aug-2013 Chest PA and Lateral Result: Comments: See Note; NOTES: [facility] Imaging Services [address] [place] [address] Radiology Report MR#: [id number] Acct: [id number] Name: RAMU DEWITT Rep #: [id number] : 1940 M 72 From: Shahab Carlos MD PCP: Vicki Styles DO Status: REG CLI Study: Chest PA and Lateral Date of Exam: 08/29/13 Exam# [id number] Ordering Dr: Vicki Styles DO STUDY: X-RAY [...] Shahab Carlos MD at 15:06 EDT Tel [phone], Service support [phone], CC: Vicki Styles DO Destination Specialist: Signed 24-Aug-2013 Spirometry (23720) Comments: obstruction present Result: Social History Name Dates Details Alcohol Use Comments: Occasional alcohol use Status: Active Caffeine Use Comments: 6 - 8 Glasses per day Status: Active Non Smoker/No Tobacco Use Status: Active Tobacco use: Former smoker. Comments: 08/26/11 Status: Active Smoking Status Name Dates Details Former smoker Vital Signs Date Test Result Details 36-Hay-384636:13 Comments: [facility] and had a glaucoma test donehearing wn [...] kg/m2 Body Surface Area Calculated 2.08 m2 8-Xjp-718413:19 Pulse 68 /min Comments: Pattern: Regular Respiration [...] Area Calculated 2.05 m2 :36 Comments: hearing [facility] and had glaucoma test done Pulse 62 [...] kg/m2 Body Surface Area Calculated 2.13 m2 88-Oju-353620:09 Pulse 60 /min Comments: Pattern: Regular Respiration [...] Cuff Location: Left Arm; Cuff Size: Standard 37-Bmd-070877:16 Temperature 97 f Comments: Method: Tympanic Pulse [...] kg/m2 Body Surface Area Calculated 2.13 m2 83-Mlz-788355:23 Temperature 96 f Comments: Method: Oral Pulse [...] kg/m2 Body Surface Area Calculated 2.12 m2 30-Rxc-118545:44 Pulse 58 /min Comments: Pattern: Regular Respiration [...] :19 Comments: before- BP 142/89 Sp02- 98% T-20qafwm-YM 150/84 Sp02 97% P-60 Temperature 97.9 f [...] Details :06 CBC W/Diff, Automated Comments: [facility] [address] [place], [place], [address] Absolute Lymph 1.37 {X10_3/ul} (Normal) Range: 0.83-4.51 [...] 4.6-6.2 WBC 7.1 K/mm3 (Normal) Range: 4.4-11.0 48-Rhm-805743:06 Comprehensive Metabolic Profil Comments: [facility] [address] [place], [place], [address] GAP 12 (Normal) Range: 5-15 CO2 26.0 [...] A.D.A. criteria.Please note revised GLUCOSE reference range qmvmtskod45/02/2018. 29-Aor-277279:06 Uric Acid Comments: [facility] [address] [facility] [place], [place], [address] URIC 9.2 mg/dL (Abnormal) Range: 3.5-7.2 Comments: The drugs N-Acetylcysteine and Metamizole may falselydepress this assay. 74-Nxv-318079:39 CBC W/Diff, Automated Comments: [facility] [address] [facility] [address] [place], [place], [address] Absolute Lymph 1.40 {X10_3/ul} (Normal) Range: 0.83-4.51 [...] 4.6-6.2 WBC 6.4 K/mm3 (Normal) Range: 4.4-11.0 75-Gho-216515:39 Comprehensive Metabolic Profil Comments: [facility] [address] [place], [place], [address] GAP 8 (Normal) Range: 5-15 CO2 30.0 [...] A.D.A. criteria.Please note revised GLUCOSE reference range ijjorzvea45/02/2018. 21-Lcs-832607:39 Uric Acid Comments: [facility] [address] [place], [place], [address] URIC 9.1 mg/dL (Abnormal) Range: 3.5-7.2 Comments: The drugs N-Acetylcysteine and Metamizole may falselydepress this assay. 8-Kqv-750906:57 HgA1C , Office (76985) HgA1C , Office 6.9 % (Normal) Range: 4.6 - 7.1 0-Knx-769106:57 Blood Glucose , Office (47774) Blood Glucose , Office 173 (Normal) 42-Woa-462254:26 CBC W/Diff, Automated Comments: [facility] [address] [place], [place], [address] Absolute Lymph 1.30 {X10_3/ul} (Normal) Range: 0.83-4.51 [...] 4.6-6.2 WBC 9.0 K/mm3 (Normal) Range: 4.4-11.0 35-Pew-780033:26 CCP IgG Antibodies Comments: [facility] (refer to report for specific site)refer to report for address and phone number ANTI-CCP 291926 8 {units} (Normal) Range: 0-19 Comments: Negative <20 Weak positive 20 - 39 Moderate positive 40 - 59 Strong positive >59 41-Xiv-178925:26 Comprehensive Metabolic Profil Comments: [facility] [address] [place], [address] GAP 9 (Normal) Range: 5-15 CO2 28.0 [...] A.D.A. criteria.Please note revised GLUCOSE reference range qfexuxdeq31/02/2018. 51-Jhc-390805:26 CRP Comments: [facility] [address] [facility] [place], [address] C-REACTIVE PROT 8.60 mg/L (Abnormal) Range: 0.0-3.0 Comments: C-Reactive Protein (CRP) provides useful information for thediagnosis, therapy and monitoring of inflammatory processesand associated diseases. For the evaluation of Relative Riskfor Cardiovascular Dise ase, a High Sensitivity CRP (HSCRP)should be ordered. 43-Flx-101240:26 Erythrocyte Sed Rate Comments: [facility] [address] [facility] [address] [place], [place], [address] SED RATE 18 mm/h (Normal) Range: 0-20 84-Yom-868537:26 Hep B Surface Antibodies Comments: [facility] (refer to report for specific site)refer to report for address and phone number Hep B Patricia AB Non Reactive (Normal) Comments: Non Reactive: Inconsistent with immunity, less than 10 mIU/mL Reactive: Consistent with immunity, greater than 9.9 mIU/ mL 60-Trp-682669:26 Hepatitis B Surface Ag Comments: [facility] (refer to report for specific site)refer to report for address and phone number HB SURF AG Negative (Normal) Comments: Performed at: - [facility] [id number] Director: Christopher Molina PhD, Phone: [phone] at: [address] [id number] Director: Dillon Falk MD, Phone: [phone] 23-Onw-497207:26 Hepatitis C Antibodies Comments: [facility] (refer to report for specific site)refer to report for address and phone number HEP C AB <0.1 {s/co_ratio} (Normal) Range: 0.0-0.9 Comments: Negative: < 0.8 Indeterminate: 0.8 - 0.9 Positive: > 0.9 The CDC recommends that a positive HCV antibody result be followed up with a HCV Nucleic Acid Amplification test (382323). 28-Rwn-366833:26 Rheumatoid Factor Comments: [facility] [address] [facility] [address] [place], [place], [id number] RHEUMATOID FAC < 10.0 {IU/mL} (Normal) 46-Jwo-917570:26 Uric Acid Comments: [facility] Woggjpmnwp2476 [facility]. [place], [place], [id number] URIC 10.7 mg/dL (Abnormal) Range: 3.5-7.2 Comments: The drugs N-Acetylcysteine and Metamizole may falselydepress this assay. 79-Egy-480370:20 CCP ANTIBODY (39482) Comments: PATIENT NOT FASTINGPERFORMED BY: Minted[address] [id number] BY: [address] [id number] CCP Antibodies IgG/IgA 8 {units} (Normal) Range: 0-19 Comments: Negative <20 Weak positive 20 - 39 Moderate positive 40 - 59 Strong positive >59 24-Iue-208078:20 SED RATE ERYTHROCYTE Comments: PATIENT NOT FASTINGPERFORMED BY: [address] [id number] BY: [address] [id number] (96575) Sedimentation Rate-Westergren 32 mm/h (Abnormal) Range: 0-30 31-Yxw-660036:20 C-REACTIVE PROTEIN Comments: PATIENT NOT FASTINGPERFORMED BY: LabCoClara [facility] CenterAlbpxp4416 [place] [facility] [place] [id number] BY: [address] [id number] (31097) C-Reactive Protein, Quant 24.6 mg/L (Abnormal) Range: 0.0-4.9 97-Ylu-598114:20 RHEUMATOID FACTOR-QUANT Comments: PATIENT NOT FASTINGPERFORMED BY: StrongSteamClara Maass Medical CenterBbsvxh3704 [place] [facility] [id number] BY: [address] [id number] (21130) RA Latex Turbid. <10.0 {IU/mL} (Normal) Range: 0.0-13.9 67-Jrn-853979:20 THAIS (ANTINUCLEAR ANTIBODY) Comments: PATIENT NOT FASTINGPERFORMED BY: [employer] Bhvqhw2884 [facility] [id number] BY: [address] [id number] (07748) THAIS Direct Negative (Normal) 3-Btz-378913:59 MAGNESIUM (57432) Comments: PATIENT WAS FASTINGPERFORMED BY: [facility] Fzkyak7556 [place] [facility] [place] [id number] Magnesium, Serum 2.1 mg/dL (Normal) Range: 1.6-2.3 1-Mwu-945754:59 PHOSPHORUS (45258) Comments: PATIENT WAS FASTINGPERFORMED BY: [facility] Prnzlc0774 [place] [facility] [place] [id number] Phosphorus, Serum 3.1 mg/dL (Normal) Range: 2.5-4.5 9-Xce-757334:59 PARATHORMONE (17318) Comments: PATIENT WAS FASTINGPERFORMED BY: [facility] Hbeklj0742 [place] [facility] [place] [id number] PTH, Intact 67 pg/mL (Abnormal) Range: 15-65 4-Qkq-222454:59 CALCIFEDIOL (66171) Comments: PATIENT WAS FASTINGPERFORMED BY: LabCoClara Maass Medical CenterWjxwkd5462 [facility] [id number] Vitamin D, 25-Hydroxy 21.5 ng/mL (Abnormal) Range: 30.0-100.0 Comments: Vitamin D deficiency has been defined by the [place] [facility] and an Endocrine Society practice guideline as alevel of serum 25-OH vitamin D less than 20 ng/mL (1,2).The Endocrine Society went on to further define vitamin Dinsufficiency as a level between 21 and 29 ng/mL (2).1. IOM ([place] of Medicine). 2010. Dietary reference intakes for calcium and D. [place]: The National Academies Press.2. Marcelle MF, Justin PURCELL, Amira ELIAS, et al. Evaluation, treatment, and prevention of vitamin D deficiency: an Endocrine Society clinical practice guideline. JCEM. 2010; 96(7):1911-30. 7-Bdj-567761:59 TSH (22548) Comments: PATIENT WAS FASTINGPERFORMED BY: [facility] Iwumnd8055 [facility] [id number] TSH 3.200 {uIU/mL} (Normal) Range: 0.450-4.500 0-Xvs-539949:59 METABOLIC PANEL, COMPREHENSIVE Comments: PATIENT WAS FASTINGPERFORMED BY: LabCoClara Maass Medical CenterIgcemk0717 [facility] [id number] (61013) ALT (SGPT) 13 [iU]/L (Normal) Range: 0-44 [...] Glucose, Serum 166 mg/dL (Abnormal) Range: 65-99 6-Kxp-204835:59 LIPID PANEL (92952) Comments: PATIENT WAS FASTINGPERFORMED BY: Avillion70 [employer] [place] [id number] LDL/HDL Ratio 2.4 {ratio_units} (Normal) Range: 0.0-3.6 Comments: LDL/HDL Ratio Men Women 1/2 Avg.Risk 1.0 1.5 Av g.Risk 3.6 3.2 2X Avg.Risk 6.2 5.0 3X Avg.Risk 8.0 6.1 LDL Cholesterol Calc 101 mg/dL (Abnormal) Range: 0-99 VLDL Cholesterol Bharat 28 mg/dL (Normal) Range: 5-40 HDL Cholesterol 42 mg/dL (Normal) Triglycerides 139 mg/dL (Normal) Range: 0-149 Cholesterol, Total 171 mg/dL (Normal) Range: 100-199 0-Lyl-807630:59 CBC W/AUTO DIFF WBC (62434) Comments: PATIENT WAS FASTINGPERFORMED BY: Avillion70 miCabAt[facility] Health [id number] Immature Grans (Abs) 0.0 {x10E3/uL} (Normal) Range: [...] (Normal) Range: 3.4-10.8 :51 HgA1C , Office (85250) HgA1C , Office 7.0 % (Normal) Range: 4.6 - 7.1 :51 Blood Glucose , Office (78516) Blood Glucose , Office 197 (Normal) 4-Nsx-285018:35 Basic Metabolic Profile (BMP) Comments: 'TROP' Serial specimen #1, #2, #3, or #4: [facility] Fbglcxonfl[address] [place], [place], [address] GAP 11 (Normal) Range: 5-15 CO2 25.0 [...] 126 mg/dLsuggests DIABETES MELLITUS per A.D.A. criteria. 8-Zii-084367:35 BNP,B-Type NATRIURETIC PEPTIDE Comments: [facility] [address] [place], [place], [address] B-TYPE KAE PEP 1319.4 pg/mL (Abnormal) Range: 0-100 :35 CBC W/Diff, Automated Comments: [facility] [address] [place], [place], [address] Absolute Lymph 0.87 {X10_3/ul} (Normal) Range: 0.83-4.51 [...] 4.6-6.2 WBC 12.7 K/mm3 (Abnormal) Range: 4.4-11.0 6-Lgj-197865:35 Troponin-I Comments: 'TROP' Serial specimen #1, #2, #3, or #4: [address] [place] [address] Dwpcsxoemd7787 [address] [place], [place], [address] TROPONIN-I 0.03 ng/mL (Normal) Comments: TROPONIN-I EXPECTED VALUES <0.05 NEGATIVE 0.06 - 0.59 AT RISK OF NH > OR = 0.60 SUGGEST NH 7-Tfh-801914:35 Microscopic Examination Comments: PATIENT WAS FASTINGPERFORMED BY: Prismic PharmaceuticalsKosair Children[facility] Hospital [id number] Bacteria Few (Normal) Mucus Threads Present (Normal) Cast Type Hyaline casts (Normal) Casts Present {/lpf} (Abnormal) Epithelial Cells (non renal) None seen {/hpf} (Normal) Range: 0 - 10 RBC 0-2 {/hpf} (Normal) Range: 0 - 2 WBC 0-5 {/hpf} (Normal) Range: 0 - 5 7-Vsk-392124:00 PSA (PROSTATE SPECIFIC Comments: send copy to dr bianchi; PATIENT NOT FASTINGPERFORMED BY: Hallspot [place] PearlChain.netAtrium Health [id number] ANTIGEN) (V76.44) Prostate Specific Ag, 2.1 ng/mL (Normal) Range: 0.0-4.0 Serum Comments: Temo ECLIA methodology. .According to the [place] [employer], Serum PSA shoulddecrease and remain at undetectable levels after radicalprostatectomy. The AUA defines biochemical recurrence as an initialPSA value 0.2 ng/mL or greater followed by a subsequent confirmatoryPSA value 0.2 ng/mL or greater.Values obtained with d ifferent assay methods or kits cannot be usedinterchangeably. Results cannot be interpreted as absolute evidenceof the presence or absence of malignant disease. :35 TSH (61112) Comments: PATIENT WAS FASTINGPERFORMED BY: MotionDSPFormerly [facility] [id number] TSH 4.070 {uIU/mL} (Normal) Range: 0.450-4.500 :35 URINALYSIS, W/ MICRO (68087) Comments: PATIENT WAS FASTINGPERFORMED BY: TotalHouseholdAtrium Health [id number]; can review at next appt Microscopic Examination See below: (Normal) Comments: Microscopic was indicated and was performed. Nitrite, Urine Negative (Normal) Urobilinogen,Semi-Qn 1.0 mg/dL (Normal) Range: 0.2-1.0 Bilirubin Negative (Normal) Occult Blood Negative (Normal) Ketones Negative (Normal) Glucose Negative (Normal) Protein 1+ (Abnormal) WBC Esterase Negative (Normal) Appearance Clear (Normal) Urine-Color Yellow (Normal) pH 7.0 (Normal) Range: 5.0-7.5 Specific [place] 1.013 (Normal) Range: 1.005-1.030 :35 MICROALBUMIN: CREATININE RATIO Comments: PATIENT WAS FASTINGPERFORMED BY: MotionDSPFormerly [facility] [id number] (69120) AND (83152) Microalb/Creat Ratio 136.1 {mg/g_creat} (Abnormal) Range: 0.0-30.0 Microalbumin, Urine 118.3 ug/mL (Normal) Creatinine, Urine 86.9 mg/dL (Normal) :35 METABOLIC PANEL, COMPREHENSIVE Comments: PATIENT WAS FASTINGPERFORMED BY: MotionDSPFormerly [facility] [id number] (08450) ALT (SGPT) 10 [iU]/L (Normal) Range: 0-44 [...] Glucose, Serum 126 mg/dL (Abnormal) Range: 65-99 2-Ena-898924:35 LIPID PANEL (43043) Comments: PATIENT WAS FASTINGPERFORMED BY: LabFormerly [facility]6370 [facility] [id number] LDL/HDL Ratio 2.4 {ratio_units} (Normal) Range: 0.0-3.6 Comments: LDL/HDL Ratio Men Women 1/2 Avg.Risk 1.0 1.5 Av g.Risk 3.6 3.2 2X Avg.Risk 6.2 5.0 3X Avg.Risk 8.0 6.1 LDL Cholesterol Calc 99 mg/dL (Normal) Range: 0-99 VLDL Cholesterol Bharat 25 mg/dL (Normal) Range: 5-40 HDL Cholesterol 41 mg/dL (Normal) Triglycerides 123 mg/dL (Normal) Range: 0-149 Cholesterol, Total 165 mg/dL (Normal) Range: 100-199 6-Qrt-768267:35 CBC W/AUTO DIFF WBC (63838) Comments: PATIENT WAS FASTINGPERFORMED BY: StrongSteam [employer] [facility] [id number] Immature Grans (Abs) 0.0 {x10E3/uL} (Normal) Range: [...] 4.14-5.80 WBC 6.7 {x10E3/uL} (Normal) Range: 3.4-10.8 6-Yxl-658396:35 CALCIFIDIOL (48350) VIT D 25 Comments: PATIENT WAS FASTINGPERFORMED BY: StrongSteam Bewgqt5772 [facility] [id number] Vitamin D, 25-Hydroxy 37.2 ng/mL (Normal) Range: 30.0-100.0 Comments: Vitamin D deficiency has been defined by the [place] of[place]icine and an Endocrine Society practice guideline as alevel of serum 25-OH vitamin D less than 20 ng/mL (1,2).The Endocrine Society went on to further define vitamin Dinsufficiency as a level between 21 and 29 ng/mL (2).1. IOM ([place] of Medicine). 2010. Dietary reference intakes for calcium and D. [place]: The National Academies Press.2. Marcelle MF, Justin PURCELL, Amira ELIAS, et al. Evaluation, treatment, and prevention of vitamin D deficiency: an Endocrine Society clinical practice guideline. JCEM. 2010; 96(7):1911-30. 4-Pwa-599336:21 HgA1C , Office (82055) HgA1C , Office 6.2 % (Normal) Range: 4.6 - 7.1 :21 Blood Glucose , Office (43935) Blood Glucose , Office 162 (Normal) 1-Epg-475851:56 Microscopic Examination Comments: PATIENT WAS FASTINGPERFORMED BY: Manomasa [facility] Yrgnhq5076 [facility] [place] [id number] Bacteria None seen (Normal) Mucus Threads Present (Normal) Cast Type Hyaline casts (Normal) Casts Present {/lpf} (Abnormal) Epithelial Cells (non renal) 0-10 {/hpf} (Normal) Range: 0 - 10 RBC 0-2 {/hpf} (Normal) Range: 0 - 2 WBC None seen {/hpf} (Normal) Range: 0 - 5 :56 CALCIFIDIOL (97700) VIT D 25 Comments: PATIENT WAS FASTINGPERFORMED BY: Manomasa [facility] Vobfdo0792 [place] [facility] [place] [id number] Vitamin D, 25-Hydroxy 34.6 ng/mL (Normal) Range: 30.0-100.0 Comments: Vitamin D deficiency has been defined by the [place] of[place]icine and an Endocrine Society practice guideline as alevel of serum 25-OH vitamin D less than 20 ng/mL (1,2).The Endocrine Society went on to further define vitamin Dinsufficiency as a level between 21 and 29 ng/mL (2).1. IOM ([place] of Medicine). 2010. Dietary reference intakes for calcium and D. [place]: The National Academies Press.2. Marcelle MF, Justin [place], Amira ELIAS, et al. Evaluation, treatment, and prevention of vitamin D deficiency: an Endocrine Society clinical practice guideline. JCEM. 2010; 96(7):1911-30. 6-Woa-185019:56 TSH (66196) Comments: PATIENT WAS FASTINGPERFORMED BY: StrongSteam [employer] [facility] [id number] TSH 5.530 {uIU/mL} (Abnormal) Range: 0.450-4.500 :56 URINALYSIS, W/ MICRO (25382) Comments: PATIENT WAS FASTINGPERFORMED BY: [employer]Ste[employer] [facility] [id number] Microscopic Examination See below: (Normal) Comments: Microscopic was indicated and was performed. Microscopic Examination MICRON (Normal) Comments: Microscopic follows if indicated. Nitrite, Urine Negative (Normal) Urobilinogen,Semi-Qn 1.0 mg/dL (Normal) Range: 0.2-1.0 Bilirubin Negative (Normal) Occult Blood Negative (Normal) Ketones Negative (Normal) Glucose Negative (Normal) Protein Negative (Normal) WBC Esterase Negative (Normal) Appearance Clear (Normal) Urine-Color Yellow (Normal) pH 7.0 (Normal) Range: 5.0-7.5 Specific [place] 1.009 (Normal) Range: 1.005-1.030 :56 MICROALBUMIN: CREATININE RATIO Comments: PATIENT WAS FASTINGPERFORMED BY: [employer]Steam Vxzgad2556 [facility] [id number] (54898) AND (33460) Microalb/Creat Ratio <12.1 {mg/g_creat} (Normal) Range: 0.0-30.0 Microalbumin, Urine <3.0 ug/mL (Normal) Creatinine, Urine 24.7 mg/dL (Normal) :56 METABOLIC PANEL, COMPREHENSIVE Comments: PATIENT WAS FASTINGPERFORMED BY: StrongSteam Ydibns9839 [facility] [id number] (06112) ALT (SGPT) 8 [iU]/L (Normal) Range: 0-44 [...] Glucose, Serum 109 mg/dL (Abnormal) Range: 65-99 7-Vae-785963:56 CBC W/AUTO DIFF WBC (04487) Comments: PATIENT WAS FASTINGPERFORMED BY: LabCoClara Maass Medical CenterHmwxpw6257 [facility] [id number] Immature Grans (Abs) 0.0 {x10E3/uL} (Normal) Range: [...] 4.14-5.80 WBC 6.9 {x10E3/uL} (Normal) Range: 3.4-10.8 7-Kll-541764:56 LIPID PANEL (43121) Comments: PATIENT WAS FASTINGPERFORMED BY: [facility] Yfnqns0295 [facility] [id number] LDL/HDL Ratio 2.3 {ratio_units} (Normal) Range: 0.0-3.6 [...] (Normal) Range: 100-199 :36 HgA1C , Office (92541) HgA1C , Office 6.4 % (Normal) Range: 4.6 - 7.1 :36 Blood Glucose , Office (79538) Blood Glucose , Office 129 (Normal) :20 Blood Glucose , Office (11531) Blood Glucose , Office 111 (Normal) 52-Cvw-896917:20 HgA1C , Office (54223) HgA1C , Office 6.4 % (Normal) Range: 4.6 - 7.1 :25 CBC W/AUTO DIFF WBC (21691) Comments: PATIENT NOT FASTINGPERFORMED BY: LabCoClara Maass Medical CenterFuozmn7836 [facility] [id number] Immature Grans (Abs) 0.0 {x10E3/uL} (Normal) Range: [...] 4.14-5.80 WBC 6.0 {x10E3/uL} (Normal) Range: 3.4-10.8 60-Drc-497373:25 METABOLIC PANEL, COMPREHENSIVE Comments: PATIENT NOT FASTINGPERFORMED BY: LabCoClara Maass Medical CenterLdvnjr0127 [facility] [id number] (34649) ALT (SGPT) 13 [iU]/L (Normal) Range: 0-44 [...] Glucose, Serum 158 mg/dL (Abnormal) Range: 65-99 3-Ntx-577851:03 Basic Metabolic Profile (BMP) Comments: 'TROP' Serial specimen #1, #2, #3, or #4: [facility] U[address]mpagiuz[address] [place], [address] GAP 6 (Normal) Range: 5-15 [...] 126 mg/dLsuggests DIABETES MELLITUS per A.D.A. criteria. 9-Grb-664440:03 BNP,B-Type NATRIURETIC PEPTIDE Comments: [facility] Udkxluppbp99[address] [place], [address] B-TYPE KAE PEP 732.8 pg/mL (Abnormal) Range: 0-100 :03 CBC W/Diff, Automated Comments: [facility] Kiwvxvosfc9076 [place], [address] Absolute Lymph 0.93 {X10_3/ul} (Normal) [...] 4.6-6.2 WBC 6.8 K/mm3 (Normal) Range: 4.4-11.0 8-Veu-203996:03 Liver Profile Comments: 'TROP' Serial specimen #1, #2, #3, or #4: [facility] Xrnjgckgil475[address] [place], [place], [address] D BILI 0.39 mg/dL (Abnormal) Range: 0.00-0.30 T BILI 1.40 mg/dL (Abnormal) Range: 0.20-1.00 ALT 16 U/L (Normal) Range: 12-78 ALK P 90 U/L (Normal) Range: 50-136 AST 18 U/L (Normal) Range: 15-37 GLOB 3.7 g/dL (Abnormal) Range: 2.3-3.5 ALB 3.4 g/dL (Normal) Range: 3.4-5.0 T PROT 7.1 g/dL (Normal) Range: 6.4-8.2 9-Ifs-785453:03 Troponin-I Comments: 'TROP' Serial specimen #1, #2, #3, or #4: [facility] [address]fnjdhshu[address] [place], [address] TROPONIN-I < 0.02 ng/mL (Normal) Comments: TROPONIN-I EXPECTED VALUES <0.05 NEGATIVE 0.06 - 0.59 AT RISK OF NH > OR = 0.60 SUGGEST NH 5-Ges-327746:07 Urinalysis, Office (48243) UA - LEUKOCYTE ESTERASE Negative (Normal) UA - NITRITE Negative (Normal) URINE UROBILINGN KATELIN TIMED 4 mg/dL (Normal) UA - PROTEIN 30 mg/dL (Normal) UA - PH 7 (Normal) UA - BLOOD Negative (Normal) UA - SPECIFIC GRAVITY 1.020 (Normal) UA - KETONES Negative mg/dL (Normal) UA - BILIRUBIN Negative (Normal) UA - GLUCOSE Negative (Normal) 16-Gwq-659127:59 HgA1C , Office (11276) HgA1C , Office 6.3 % (Normal) Range: 4.6 - 7.1 23-Lvq-399407:59 Blood Glucose , Office (64691) Blood Glucose , Office 177 (Normal) 30-Xnx-93006:44 Basic Metabolic Profile (BMP) Comments: [facility] [address] [place], [address] GAP 7 (Normal) Range: 5-15 [...] 126 mg/dLsuggests DIABETES MELLITUS per A.D.A. criteria. 2-Gns-519472:32 Microscopic Examination Comments: PATIENT NOT FASTINGPERFORMED BY: [employer]Ste[employer] Wwlwgb0281 [facility] [id number] Bacteria None seen (Normal) Mucus Threads Present (Normal) Cast Type Hyaline casts (Normal) Casts Present {/lpf} (Abnormal) Epithelial Cells (non renal) 0-10 {/hpf} (Normal) Range: 0 - 10 RBC 0-2 {/hpf} (Normal) Range: 0 - 2 WBC 0-5 {/hpf} (Normal) Range: 0 - 5 3-Uti-573987:32 CALCIFIDIOL (96953) VIT D 25 Comments: PATIENT NOT FASTINGPERFORMED BY: [facility] Kdhyxn8017 [facility] [id number] Vitamin D, 25-Hydroxy 34.1 ng/mL (Normal) Range: 30.0-100.0 Comments: Vitamin D deficiency has been defined by the [place] of[place]icine and an Endocrine Society practice guideline as alevel of serum 25-OH vitamin D less than 20 ng/mL (1,2).The Endocrine Society went on to further define vitamin Dinsufficiency as a level between 21 and 29 ng/mL (2).1. IOM ([place] of Medicine). 2010. Dietary reference intakes for calcium and D. [place]: The National Academies Press.2. Marcelle MF, Justin PURCELL, Amira ELIAS, et al. Evaluation, treatment, and prevention of vitamin D deficiency: an Endocrine Society clinical practice guideline. JCEM. 2010; 96(7):1911-30. :32 TSH (16014) Comments: PATIENT NOT FASTINGPERFORMED BY: MintedFormerly [facility]6370 [facility] [id number] TSH 5.190 {uIU/mL} (Abnormal) Range: 0.450-4.500 :32 URINALYSIS, W/ MICRO (48409) Comments: PATIENT NOT FASTINGPERFORMED BY: MintedFormerly [facility]6370 [facility] [id number] Microscopic Examination See below: (Normal) Comments: Microscopic was indicated and was performed. Microscopic Examination MICRON (Normal) Comments: Microscopic follows if indicated. Nitrite, Urine Negative (Normal) Urobilinogen,Semi-Qn 1.0 mg/dL (Normal) Range: 0.2-1.0 Bilirubin Negative (Normal) Occult Blood Negative (Normal) Ketones Negative (Normal) Glucose Negative (Normal) Protein Trace (Normal) WBC Esterase Negative (Normal) Appearance Clear (Normal) Urine-Color Yellow (Normal) pH 6.5 (Normal) Range: 5.0-7.5 Specific [place] 1.019 (Normal) Range: 1.005-1.030 :32 MICROALBUMIN: CREATININE RATIO Comments: PATIENT NOT FASTINGPERFORMED BY: MintedFormerly [facility]6370 [facility] [id number] (09868) AND (32861) Microalb/Creat Ratio 43.8 {mg/g_creat} (Abnormal) Range: 0.0-30.0 Microalbumin, Urine 51.0 ug/mL (Normal) Creatinine, Urine 116.5 mg/dL (Normal) :32 METABOLIC PANEL, COMPREHENSIVE Comments: PATIENT NOT FASTINGPERFORMED BY: MintedFormerly [facility]6370 [facility] [id number] (89972) ALT (SGPT) 13 [iU]/L (Normal) Range: 0-44 [...] Glucose, Serum 122 mg/dL (Abnormal) Range: 65-99 4-Iep-919281:32 LIPID PANEL (08160) Comments: PATIENT NOT FASTINGPERFORMED BY: LabCoClara Maass Medical CenterEjobig9946 [facility] [id number] LDL/HDL Ratio 1.9 {ratio_units} (Normal) Range: 0.0-3.6 [...] Cholesterol, Total 145 mg/dL (Normal) Range: 100-199 1-Mbq-545544:32 CBC W/AUTO DIFF WBC Comments: PATIENT NOT FASTINGPERFORMED BY: [employer] Qctdqu8307 [facility] [id number] Information: [id number] (67301) Immature Grans (Abs) 0.0 {x10E3/uL} (Normal) Range: [...] 4.14-5.80 WBC 6.5 {x10E3/uL} (Normal) Range: 3.4-10.8 1-Xlb-810127:32 PSA (PROSTATE SPECIFIC Comments: send copy to dr mast; PATIENT NOT FASTINGPERFORMED BY: [employer] Mjcdsn9903 [facility] [id number] ANTIGEN) (V76.44) Prostate Specific Ag, 2.1 ng/mL (Normal) Range: 0.0-4.0 Serum Comments: Temo ECLIA methodology. .According to the [place] [employer], Serum PSA shoulddecrease and remain at undetectable levels after radicalprostatectomy. The AUA defines biochemical recurrence as an initialPSA value 0.2 ng/mL or greater followed by a subsequent confirmatoryPSA value 0.2 ng/mL or greater.Values obtained with d ifferent assay methods or kits cannot be usedinterchangeably. Results cannot be interpreted as absolute evidenceof the presence or absence of malignant disease. 99-Bpr-588434:20 Metabolic Panel, Basic Comments: PATIENT NOT FASTINGPERFORMED BY: LabCoClara Maass Medical CenterBvlawh3551 [facility] [id number] Information: [id number] (87034) Calcium, Serum 9.0 mg/dL (Normal) Range: 8.6-10.2 [...] Glucose, Serum 90 mg/dL (Normal) Range: 65-99 2-Hri-511907:26 BNP,B-Type NATRIURETIC PEPTIDE Comments: [facility] [address] [place], [address] B-TYPE KAE PEP 247.5 pg/mL (Abnormal) Range: 0-100 9-Ags-915859:26 CBC W/Diff, Automated Comments: [facility] [address] [place], [address] Absolute Lymph 0.87 {X10_3/ul} (Normal) [...] 4.6-6.2 WBC 8.2 K/mm3 (Normal) Range: 4.4-11.0 7-Jjw-335514:08 Basic Metabolic Profile (BMP) Comments: [facility] [address]elxgiif[address] [place], [address] GAP 11 (Normal) Range: 5-15 CO2 30.0 [...] <126 mg/dLsuggests IMPAIRED HOMEOSTASIS per A.D.A. criteria. 8-Ivc-328858:00 Basic Metabolic Profile (BMP) Comments: [facility] [address] [facility] [address] [place], [place], [id number]) GAP 12 (Normal) Range: 5-15 CO2 26.0 [...] 126 mg/dLsuggests DIABETES MELLITUS per A.D.A. criteria. 11-Qxc-760170:33 Basic Metabolic Profile (BMP) Comments: [facility] [address] [place], [place], [address] GAP 5 (Normal) Range: 5-15 CO2 26.0 [...] 126 mg/dLsuggests DIABETES MELLITUS per A.D.A. criteria. 21-Chu-791365:07 Basic Metabolic Profile (BMP) Comments: [facility] Pthjlponfm2813 [facility] [place], [address] GAP 0 (Abnormal) Range: 5-15 CO2 30.0 [...] 7-18 GLU 101 mg/dL (Normal) Range: 70-110 22-Xcv-332744:07 BNP,B-Type NATRIURETIC PEPTIDE Comments: [facility] Ayrodkhler78[address] [facility] [place], [place], [address] B-TYPE KAE PEP 560.9 pg/mL (Abnormal) Range: 0-100 :04 ALBUMIN SERUM (85724) Comments: PATIENT NOT FASTINGPERFORMED BY: LabCoClara [facility] Medical CenterXpxwoz6072 [facility] [id number] Albumin, Serum 3.4 g/dL (Abnormal) Range: 3.5-4.8 29-Uln-752107:04 BASIC METABOLIC w/Ionized Comments: PATIENT NOT FASTINGPERFORMED BY: LabCoClara [facility] Medical CenterJnbmcf6233 [facility] [id number] Information: [id number] Ca++ (13912) Calcium, Serum 8.5 mg/dL (Abnormal) Range: 8.6-10.2 [...] Glucose, Serum 171 mg/dL (Abnormal) Range: 65-99 9-Bnn-869994:34 Calcium Ionized Comments: [facility] (refer to report for specific site)refer to report for address and phone number [place] [address] Test not performed (Normal) Comments: Patient has been credited for testing not performed. Pleasehave patient return if testing is still required. :36 Anion Gap Comments: [facility] [address]ds[address] [place], [place], [id number] GAP 3 (Abnormal) Range: 5-15 [id number] BUN 18 mg/dL (Normal) Comments: [facility] [id number] [place], [place], [address] Range: 7-18 [id number] BUN/Creat Ratio Comments: [place] [address] [address] [id number] BUN/CRE 11.0 {RATIO} (Normal) Range: 10-20 [id number] Carbon Dioxide Comments: [address] [address] CO2 30.0 mmol/L (Normal) Range: 21.0-32.0 5-Gbs-991699:36 Chloride Comments: [address] [address] CL 109 mmol/L (Abnormal) Range: 98-107 :36 Creatinine, Serum Comments: [address] [address] CREAT,SERUM 1.64 mg/dL (Abnormal) Range: 0.70-1.30 Comments: The validity of the calculated GFR AND GFRAA in patients over70 years has not been determined. Clinical correlation isessential. :36 Glucose Comments: [address] Jakcson, [id number](116 GLU 157 mg/dL (Abnormal) Range: 70-110 Comments: Fasting Glucose result greater than or equal to 126 mg/dLsuggests DIABETES MELLITUS per A.D.A. criteria. :36 Potassium Comments: [address] [place] [id number] K 4.3 mmol/L (Normal) Range: 3.5-5.1 9-Etr-611732:36 Sodium Level Comments: [address], [id number] NA 142 mmol/L (Normal) Range: 136-145 04-Mao-747501:36 Urinalysis, Office (30663) UA - LEUKOCYTE ESTERASE Negative (Normal) UA - NITRITE Negative (Normal) URINE UROBILINGN KATELIN TIMED Normal mg/dL (Normal) UA - PROTEIN Negative mg/dL (Normal) UA - PH 6.0 (Normal) Comments: 5.5 UA - BLOOD Hemolyzed Trace (Normal) UA - SPECIFIC GRAVITY 1.005 (Normal) UA - KETONES Negative mg/dL (Normal) UA - BILIRUBIN Negative (Normal) UA - GLUCOSE Negative (Normal) 54-Mrf-367035:06 Metabolic Panel, Basic Comments: PATIENT NOT FASTINGPERFORMED BY: Ulaola [employer] [facility] [id number] Information: [id number]; will review at next appt. (15091) Calcium, Serum 9.3 mg/dL (Normal) Range: 8.6-10.2 [...] Glucose, Serum 111 mg/dL (Abnormal) Range: 65-99 99-Flw-021556:07 URINE DAWIT CULTURE-IDENTIFICATN Comments: PATIENT NOT FASTINGPERFORMED BY: Ulaola [employer] [facility] [id number] (65910) Result 1 MUG (Normal) Comments: Mixed urogenital flora1,000 Colonies/mL Urine Culture,Comprehensive Final report (Normal) 46-Qps-203990:07 URINALYSIS (12170) Comments: PATIENT NOT FASTINGPERFORMED BY: StrongSteamClara Maass Medical CenterNbjago7447 [facility] [id number] Information: [id number] Microscopic Examination MICNIP (Normal) Comments: Microscopic not indicated and not performed. Nitrite, Urine Negative (Normal) Urobilinogen,Semi-Qn 0.2 mg/dL (Normal) Range: 0.2-1.0 Bilirubin Negative (Normal) Occult Blood Negative (Normal) Ketones Negative (Normal) Glucose Negative (Normal) Protein Negative (Normal) WBC Esterase Negative (Normal) Appearance Clear (Normal) Urine-Color Yellow (Normal) pH 6.0 (Normal) Range: 5.0-7.5 Specific [place] 1.010 (Normal) Range: 1.005-1.030 7-Ron-721477:02 Basic Metabolic Profile (BMP) Comments: [facility] [address] [place], [address] GAP 9 (Normal) Range: 5-15 [...] 126 mg/dLsuggests DIABETES MELLITUS per A.D.A. criteria. 4-Ife-725281:02 BNP,B-Type NATRIURETIC PEPTIDE Comments: [facility] [address] [place], [address] B-TYPE KAE PEP 202.1 pg/mL (Abnormal) Range: 0-100 24-Sjz-107152:55 BNP,B-Type NATRIURETIC PEPTIDE Comments: [facility] [address] [place], [address] B-TYPE KAE PEP 288.3 pg/mL (Abnormal) Range: 0-100 28-Xwx-623859:48 BNP,B-Type NATRIURETIC PEPTIDE Comments: [facility] [address] [place], [place], [address] B-TYPE KAE PEP 231.4 pg/mL (Abnormal) Range: 0-100 68-Dsx-706994:33 ASSAY, NATIURETIC PEPTIDE Comments: PATIENT NOT FASTINGPERFORMED BY: [facility] Alsrjm2708 [facility] [id number] Information: [id number] (23980) B-Type Natriuretic Peptide 296.5 pg/mL (Abnormal) Range: 0.0-100.0 42-Sbv-341293:15 Basic Metabolic Profile (BMP) Comments: Serial Specimen #1, #2 or #3? 1'TROP' Serial specimen #1, #2, #3, or #4: [facility] [address] [place], [place], [address] GAP 7 (Normal) Range: 5-15 CO2 24.0 [...] 126 mg/dLsuggests DIABETES MELLITUS per A.D.A. criteria. 08-Dej-746256:15 BNP,B-Type NATRIURETIC PEPTIDE Comments: [facility] [address] [place], [place], [id number] B-TYPE KAE PEP 200.1 pg/mL (Abnormal) Range: 0-100 20-Gkh-183287:15 CBC W/Diff, Automated Comments: [facility] [address] [place], [place], [address] Absolute Lymph 1.42 {X10_3/ul} (Normal) Range: 0.83-4.51 [...] 4.6-6.2 WBC 7.6 K/mm3 (Normal) Range: 4.4-11.0 96-Xdf-230411:15 CK-MB Quantitative and Index Comments: Serial Specimen #1, #2 or #3? 1'TROP' Serial specimen #1, #2, #3, or #4: [address] [place] [address] [address] [place], [address] CKRI 1.6 % (Abnormal) Range: 0.0-1.4 Comments: RELATIVE INDEX >1.5% IS PRESUMPTIVELY POSITIVE CPKMB 3.3 ng/mL (Normal) Range: 0.0-5.0 Comments: CK-MB and RI Interpretation MB Relative Index Non-AMI <or= 5 NA Indeterminate > 5 <or= 4 AMI > 5 > 4 CPK TOTAL 208 U/L (Normal) Range: 39-308 62-Zni-391966:15 Troponin-I Comments: Serial Specimen #1, #2 or #3? 1'TROP' Serial specimen #1, #2, #3, or #4: [address] [place] [address] [address] [place], [address] TROPONIN-I 0.03 ng/mL (Normal) Comments: TROPONIN-I EXPECTED VALUES <0.05 NEGATIVE 0.06 - 0.59 AT RISK OF NH > OR = 0.60 SUGGEST NH 94-Hxt-686851:06 HgA1C , Office (78917) HgA1C , Office 8.0 % (Abnormal) Range: 4.6 - 7.1 92-Bvj-390049:06 Blood Glucose , Office (00583) Blood Glucose , Office 143 (Normal) 8-Kzy-136582:12 BUN 15 mg/dL (Normal) Comments: Test performed at:[facility] [address] [place] [address] Range: 7-18 0-Kfe-490522:12 Partial Thromboplast Time Comments: Test performed at:[facility] [address] [place] [address] PTT 25.9 s (Normal) Range: 24.1-36.2 8-Rzv-657504:12 Platelet Count Comments: Test performed at:[facility] [address] [place] [address] PLT 243 K/mm3 (Normal) Range: 150-450 8-Vcp-174494:12 Prothrombin Time w/INR Comments: Test performed at:[facility] [address] [place] [address] INR 0.9 (Normal) PROTIME 12.3 s (Normal) Range: 11.7-14.9 6-Klc-907792:12 Serum Creatinine AND GFR Comments: Test performed at:[facility] [address] [place] [address] CREAT,SERUM 1.3 mg/dL (Normal) Range: 0.8-1.3 :09 HgA1C , Office (21838) HgA1C , Office 7.1 % (Normal) Range: 4.6 - 7.1 :09 Blood Glucose , Office (03190) Blood Glucose , Office 141 (Normal) :43 BUN 14 mg/dL (Normal) Range: 7-18 :43 CRE CREAT 1.1 mg/dL (Normal) Range: 0.8-1.3 :43 PLT 184 K/mm3 (Normal) Range: 150-450 :43 PT INR 0.9 (Normal) PTP 12.4 s (Normal) Range: 11.7-14.9 Comments: Please note revised PROTIME reference range rtweugcol57/14/15. :43 PTT 26.3 s (Normal) Range: 24.1-36.2 00-Cud-979924:25 HgA1C , Office (55289) HgA1C , Office 6.7 % (Normal) Range: 4.6 - 7.1 10-Vwo-646057:25 Blood Glucose , Office (07802) Blood Glucose , Office 140 (Normal) 53-Bpl-153621:25 Microscopic Examination Comments: PATIENT WAS FASTINGPERFORMED BY: LabCoClara Maass Medical CenterVlmrmz7123 [facility] [id number] Bacteria None seen (Normal) Mucus Threads Present (Normal) Epithelial Cells (non renal) None seen {/hpf} (Normal) Range: 0 - 10 RBC 0-3 {/hpf} (Normal) Range: 0 - 3 Comments: Effective September 04, 2013 the reference interval for RBC will be changing to: 0 - 2 /hpf. WBC 0-5 {/hpf} (Normal) Range: 0 - 5 60-Hzn-071868:47 LIPID PANEL (84888) Comments: PATIENT WAS FASTINGPERFORMED BY: [employer] [facility] [id number] LDL/HDL Ratio 2.7 {ratio_units} (Normal) Range: 0.0-3.6 LDL Cholesterol Calc 90 mg/dL (Normal) Range: 0-99 HDL Cholesterol 33 mg/dL (Abnormal) Comments: According to ATP-III Guidelines, HDL-C >59 mg/dL is considered anegative risk factor for CHD. VLDL Cholesterol Bharat 27 mg/dL (Normal) Range: 5-40 Triglycerides 133 mg/dL (Normal) Range: 0-149 Cholesterol, Total 150 mg/dL (Normal) Range: 100-199 :47 Vitamin D Hydroxy (22418) Comments: PATIENT WAS FASTINGPERFORMED BY: [employer] Tekaaz2394 [facility] [id number] Vitamin D, 25-Hydroxy 28.7 ng/mL (Abnormal) Range: 30.0-100.0 Comments: Vitamin D deficiency has been defined by the [place] of[place] and an Endocrine Society practice guideline as alevel of serum 25-OH vitamin D less than 20 ng/mL (1,2).The Endocrine Society went on to further define vitamin Dinsufficiency as a level between 21 and 29 ng/mL (2).1. IOM ([place] of [employer]). 2010. Dietary reference intakes for calcium and D. [place]: The National Academies Press.2. Marcelle MF, Justin NC, Amira ELIAS, et al. Evaluation, treatment, and prevention of vitamin D deficiency: an Endocrine Society clinical practice guideline. JCEM. 2010; 96(7):1911-30.; ADDENDA: appt 21-Aug-201311:47 TSH (35339) Comments: PATIENT WAS FASTINGPERFORMED BY: [employer] Bujyrd6852 [facility] [id number] TSH 1.700 {uIU/mL} (Normal) Range: 0.450-4.500 29-Drr-180637:47 URINALYSIS, W/ MICRO (24094) Comments: PATIENT WAS FASTINGPERFORMED BY: StrongSteamClara Maass Medical CenterVckfjm8758 [facility] [id number] Microscopic Examination See below: (Normal) Microscopic Examination MICRON (Normal) Comments: Microscopic follows if indicated. Nitrite, Urine Negative (Normal) Urobilinogen,Semi-Qn 1.0 mg/dL (Normal) Range: 0.0-1.9 Bilirubin Negative (Normal) Occult Blood Negative (Normal) Ketones Negative (Normal) Glucose Negative (Normal) Protein Negative (Normal) WBC Esterase Negative (Normal) Appearance Clear (Normal) Urine-Color Yellow (Normal) pH 6.0 (Normal) Range: 5.0-7.5 Specific [place] 1.019 (Normal) Range: 1.005-1.030 53-Dvx-664166:47 MICROALBUMIN: CREATININE RATIO Comments: PATIENT WAS FASTINGPERFORMED BY: UlaolaClara Maass Medical CenterSmogfr2771 [facility] [id number] (62270) AND (92201) Microalb/Creat Ratio 5.9 {mg/g_creat} (Normal) Range: 0.0-30.0 Microalbumin, Urine 10.0 ug/mL (Normal) Range: 0.0-17.0 Creatinine, Urine 169.3 mg/dL (Normal) Range: 22.0-328.0 84-Wdr-638476:47 METABOLIC PANEL, COMPREHENSIVE Comments: PATIENT WAS FASTINGPERFORMED BY: StrongSteamClara Maass Medical CenterIhveos6851 [facility] [id number] (77868) ALT (SGPT) 13 [iU]/L (Normal) Range: 0-44 [...] Glucose, Serum 118 mg/dL (Abnormal) Range: 65-99 83-Zrn-521981:47 CBC WITH MANUAL DIFF Comments: PATIENT WAS FASTINGPERFORMED BY: [facility] Cdsacr9495 [facility] [id number] Information: [id number] (84827) Immature Grans (Abs) 0.0 {x10E3/uL} (Normal) Range: [...] (Normal) Range: 3.4-10.8 :38 HgA1C , Office (44933) HgA1C , Office 6.2 % (Normal) Range: 4.6 - 7.1 88-Ohc-896636:38 Blood Glucose , Office (50497) Blood Glucose , Office 119 (Normal) 59-Mne-469812:28 HgA1C , Office (49354) HgA1C , Office 6.7 % (Normal) Range: 4.6 - 7.1 11-Mta-086604:28 Blood Glucose , Office (59754) Blood Glucose , Office 131 (Normal) 65-Qrk-309074:08 MICROALBUMIN: CREATININE RATIO Comments: PATIENT WAS FASTINGPERFORMED BY: Avillion70 miCabAtrium Health [id number] (72512) AND (87994) Microalb/Creat Ratio 14.3 {mg/g_creat} (Normal) Range: 0.0-30.0 Microalbumin, Urine 24.5 ug/mL (Abnormal) Range: 0.0-17.0 Creatinine, Urine 171.3 mg/dL (Normal) Range: 22.0-328.0 90-Tpx-589009:46 Microscopic Examination Comments: PATIENT NOT FASTINGPERFORMED BY: TotalHouseholdAtrium Health [id number] Bacteria Few (Normal) Mucus Threads Present (Normal) Epithelial Cells (non renal) 0-10 {/hpf} (Normal) Range: 0 - 10 RBC 0-3 {/hpf} (Normal) Range: 0 - 3 WBC 0-5 {/hpf} (Normal) Range: 0 - 5 :46 TSH (46002) Comments: PATIENT NOT FASTINGPERFORMED BY: StrongSteamRoosevelt General HospitalNucgvp3455 [facility] [id number] TSH 2.720 {uIU/mL} (Normal) Range: 0.450-4.500 :46 URINALYSIS, W/ MICRO (65065) Comments: PATIENT NOT FASTINGPERFORMED BY: MintedFormer[facility]6370 [facility] [id number] Microscopic Examination See below: (Normal) Microscopic Examination MICRON (Normal) Comments: Microscopic follows if indicated. Nitrite, Urine Negative (Normal) Urobilinogen,Semi-Qn 1.0 mg/dL (Normal) Range: 0.0-1.9 Bilirubin Negative (Normal) Occult Blood Negative (Normal) Ketones Negative (Normal) Glucose Negative (Normal) Protein Negative (Normal) WBC Esterase Negative (Normal) Appearance Clear (Normal) Urine-Color Yellow (Normal) pH 6.0 (Normal) Range: 5.0-7.5 Specific [place] 1.015 (Normal) Range: 1.005-1.030 :46 MICROALBUMIN: CREATININE RATIO Comments: PATIENT NOT FASTINGPERFORMED BY: StrongSteamClara Maass Medical CenterYyzqxy0705 [facility] [id number] (29243) AND (71941) Microalb/Creat Ratio 10.0 {mg/g_creat} (Normal) Range: 0.0-30.0 Microalbumin, Urine 12.6 ug/mL (Normal) Range: 0.0-17.0 Creatinine, Urine 125.8 mg/dL (Normal) Range: 22.0-328.0 :46 METABOLIC PANEL, COMPREHENSIVE Comments: PATIENT NOT FASTINGPERFORMED BY: StrongSteamClara Maass Medical CenterGjkoem9336 [facility] [id number] (68251) ALT (SGPT) 18 [iU]/L (Normal) Range: 0-44 [...] Glucose, Serum 116 mg/dL (Abnormal) Range: 65-99 88-Dcy-803318:46 LIPID PANEL (68386) Comments: PATIENT NOT FASTINGPERFORMED BY: Roamer6370 miCabAtrium Health [id number] LDL/HDL Ratio 2.1 {ratio_units} (Normal) Range: 0.0-3.6 LDL Cholesterol Calc 94 mg/dL (Normal) Range: 0-99 VLDL Cholesterol Bharta 31 mg/dL (Normal) Range: 5-40 HDL Cholesterol 44 mg/dL (Normal) Comments: According to ATP-III Guidelines, HDL-C >59 mg/dL is considered anegative risk factor for CHD. Triglycerides 155 mg/dL (Abnormal) Range: 0-149 Cholesterol, Total 169 mg/dL (Normal) Range: 100-199 77-Qcv-575692:46 CBC WITH MANUAL DIFF Comments: PATIENT NOT FASTINGPERFORMED BY: Roamer6370 WoldmeFormerly [facility] [id number] Information: [id number] (04589) Immature Grans (Abs) 0.0 {x10E3/uL} (Normal) Range: [...] (Normal) Range: 4.0-10.5 :38 HgA1C , Office (88337) HgA1C , Office 6.9 % (Normal) Range: 4.6 - 7.1 :38 Blood Glucose , Office (20714) Blood Glucose , Office 124 (Normal) :08 HgA1C , Office (33024) HgA1C , Office 6.5 % (Normal) Range: 4.6 - 7.1 :10 Blood Glucose , Office (42256) Blood Glucose , Office 129 (Normal) 73-Cte-607289:08 LIPID PANEL (37481) Comments: PATIENT WAS FASTINGPERFORMED BY: StrongSteamClara Maass Medical CenterMandvo2925 [facility] [id number] LDL/HDL Ratio 2.2 {ratio_units} (Normal) Range: 0.0-3.6 LDL Cholesterol Calc 97 mg/dL (Normal) Range: 0-99 VLDL Cholesterol Bharat 28 mg/dL (Normal) Range: 5-40 HDL Cholesterol 45 mg/dL (Normal) Comments: According to ATP-III Guidelines, HDL-C >59 mg/dL is considered anegative risk factor for CHD. Triglycerides 140 mg/dL (Normal) Range: 0-149 Cholesterol, Total 170 mg/dL (Normal) Range: 100-199 44-Hul-394215:08 HEPATIC FUNCTION PANEL Comments: PATIENT WAS FASTINGPERFORMED BY: MintedFormerly [facility]6370 [facility] [id number] Information: [id number] (26281) ALT (SGPT) 25 [iU]/L (Normal) Range: 0-55 [...] (Normal) Range: 6.0-8.5 :55 HgA1C , Office (49487) HgA1C , Office 6.9 % (Normal) Range: 4.6 - 7.1 :55 Blood Glucose , Office (00184) Blood Glucose , Office 126 (Normal) 04-Nez-319173:07 Hemoglobin Glyclated (HGB Comments: PATIENT NOT FASTINGPERFORMED BY: [place] 5222270 [facility] [id number] Information: [id number] A1C) (64026) Hemoglobin A1c 6.8 % (Abnormal) Range: 4.8-5.6 Comments: . Increased risk for diabetes: 5.7 - 6.4 Diabetes: >6.4 Glycemic control for adults with diabetes: <7.0 09-Uoq-314046:58 Microscopic Examination Comments: PATIENT WAS FASTINGPERFORMED BY: LabJose Ville 7824470 [facility] [id number] Bacteria Few (Normal) Mucus Threads Present (Normal) Epithelial Cells (non renal) None seen {/hpf} (Normal) Range: 0 - 10 RBC 0-3 {/hpf} (Normal) Range: 0 - 3 WBC 0-5 {/hpf} (Normal) Range: 0 - 5 17-Qtd-350243:58 PSA Total+% Free Comments: PATIENT WAS FASTINGPERFORMED BY: LabFormer[facility]6370 [facility] [id number] Information: [id number] % Free PSA 16.3 % (Normal) Comments: The table below lists the probability of prostate cancer formen with non-suspicious CLOTEN results and total PSA between4 and 10 [...] Comments: Temo ECLIA methodology. .According to the [place] [employer], Serum PSA shoulddecrease and remain [...] WAR (Normal) Comments: PATIENT WAS FASTINGPERFORMED BY: [employer]Ste[employer] Ykfsbb9252 [place] PlistenFormerly [facility] [id number] 3:58 Comments: Written Authorization Received.Authorization received from DR. STYLES [id number] by Machelle Trejo 82-Bkr-564672:07 ASSAY, PSA, FREE (80538) Comments: PATIENT NOT FASTINGPERFORMED BY: StrongSte[employer] Yjbptg5669 [place] PlistenFormerly [facility] [id number] Information: [id number],2ND ORDER NO DRAW F EE % Free [...] PSA, Free 2.01 ng/mL (Normal) Comments: Temo ZtailIA methodology. Prostate Specific Ag, Serum 11.4 ng/mL (Abnormal) Range: 0.0-4.0 Comments: Temo ECLIA methodology. .According to the [place] [employer], Serum PSA shoulddecrease and remain [...] Total/Direct, Serum Comments: PATIENT NOT FASTINGPERFORMED BY: [employer]intedCo Nintvw5600 MadisonMid [facility] [id number] Bilirubin, Indirect 1.53 mg/dL (Abnormal) Range: 0.10-0.80 Bilirubin, Direct 0.37 mg/dL (Normal) Range: 0.00-0.40 Bilirubin, Total 1.9 mg/dL (Abnormal) Range: 0.0-1.2 :17 Prostate-Specific Ag, Serum Comments: PATIENT NOT FASTINGPERFORMED BY: LabCo Ztzsxh3778 [facility] [id number] Prostate Specific Ag, 11.5 ng/mL (Abnormal) Range: 0.0-4.0 Serum Comments: ZokosIA methodology. .According to the [place] [employer], Serum PSA shoulddecrease and remain [...] Total+% Free Comments: PATIENT NOT FASTINGPERFORMED BY: StrongSteam Odjdqm5698 [facility] [id number] % Free PSA 19.7 % (Normal) Comments: [...] Comments: Temo ECLIA methodology. .According to the [place] [employer], Serum PSA shoulddecrease and remain [...] SPRCS (Normal) Comments: PATIENT NOT FASTINGPERFORMED BY: Ulaolarp Hemfgl0987 [address] PearlChain.netblin [place] [id number] :17 Comments: This report has been generated by your request for additional testing.The additional request may have required some testing to be repeated.Because of analytic variability, the results may not correspond exactly to the previous report. Interpret these results appropriately. Written Authorization WAR (Normal) Comments: PATIENT NOT FASTINGPERFORMED BY: Manomasa [facility] Fcelcp4544 [address] PlistenDublin [place] [id number] :17 Comments: Written Authorization Received.Authorization received from VICKI STYLES DO [id number] by Candi Salazar :01 Microscopic Examination Comments: PATIENT WAS FASTINGPERFORMED BY: CB [facility] Ukhpnq6198 [address] PlistenDublin [place] [id number] Bacteria None seen (Normal) Mucus Threads Present (Normal) Epithelial Cells (non renal) None seen {/hpf} (Normal) Range: 0 - 10 RBC None seen {/hpf} (Normal) Range: 0 - 3 WBC 0-5 {/hpf} (Normal) Range: 0 - 5 :01 Vitamin D Hydroxy (23413) Comments: PATIENT WAS FASTINGPERFORMED BY: CB [facility] Odzytb3412 Madison RoadDublin [place] [id number] Vitamin D, 25-Hydroxy 17.2 ng/mL (Abnormal) Range: 30.0-100.0 Comments: Vitamin D deficiency has been defined by the [place] of[place] and an Endocrine Society practice guideline as alevel of serum 25-OH vitamin D less than 20 ng/mL (1,2).The Endocrine Society went on to further define vitamin Dinsufficiency as a level between 21 and 29 ng/mL (2).1. IOM ([place] of [employer]). 2010. Dietary reference intakes for calcium and D. [place]: The National Academies Press.2. Marcelle MF, Justin PURCELL, Amira ELIAS, et al. Evaluation, treatment, and prevention of vitamin D deficiency: an Endocrine Society clinical practice guideline. JCEM. 2010; 96(7):1911-30. :01 PSA (PROSTATE SPECIFIC Comments: PATIENT WAS FASTINGPERFORMED BY: Prismic PharmaceuticalsKosair Children's Hospital [id number] ANTIGEN) (V76.44) Prostate Specific Ag, 7.6 ng/mL (Abnormal) Range: 0.0-4.0 Serum Comments: [employer] ECLIA methodology. .According to the [place] [employer], Serum PSA shoulddecrease and remain at undetectable levels after radicalprostatectomy. The AUA defines biochemical recurrence as an initialPSA value 0.2 ng/mL or greater followed by a subsequent confirmatoryPSA value 0.2 ng/mL or greater.Values obtained with d ifferent assay methods or kits cannot be usedinterchangeably. Results cannot be interpreted as absolute evidenceof the presence or absence of malignant disease. :01 TSH (39792) Comments: PATIENT WAS FASTINGPERFORMED BY: Roamer6370 miCabAtrium Health [id number] TSH 2.530 {uIU/mL} (Normal) Range: 0.450-4.500 :01 URINALYSIS, W/ MICRO (06066) Comments: PATIENT WAS FASTINGPERFORMED BY: Avillion70 miCabAtrium Health [id number] Microscopic Examination See below: (Normal) Microscopic Examination MICRON (Normal) Comments: Microscopic follows if indicated. Nitrite, Urine Negative (Normal) Urobilinogen,Semi-Qn 0.2 mg/dL (Normal) Range: 0.0-1.9 Bilirubin Negative (Normal) Occult Blood Negative (Normal) Ketones Negative (Normal) Glucose Negative (Normal) Protein Negative (Normal) WBC Esterase Negative (Normal) Appearance Clear (Normal) Urine-Color Yellow (Normal) pH 6.5 (Normal) Range: 5.0-7.5 Specific [place] 1.015 (Normal) Range: 1.005-1.030 :01 MICROALBUMIN: CREATININE RATIO Comments: PATIENT WAS FASTINGPERFORMED BY: Ulaola Anvdxi8635 [facility] [id number] (57117) AND (41422) Microalb/Creat Ratio 30.3 {mg/g_creat} (Abnormal) Range: 0.0-30.0 Microalbumin, Urine 33.5 ug/mL (Abnormal) Range: 0.0-17.0 Creatinine, Urine 110.7 mg/dL (Normal) Range: 22.0-328.0 : METABOLIC PANEL, COMPREHENSIVE Comments: PATIENT WAS FASTINGPERFORMED BY: Roamer6370 [facility] [id number] (26263) ALT (SGPT) 23 [iU]/L (Normal) Range: 0-55 [...] mg/dL (Abnormal) Range: 65-99 :01 LIPID PANEL (56792) Comments: PATIENT WAS FASTINGPERFORMED BY: Autology WorldMid [facility] [id number] LDL/HDL Ratio 2.5 {ratio_units} (Normal) Range: 0.0-3.6 [...] MANUAL DIFF Comments: PATIENT WAS FASTINGPERFORMED BY: Avillion70 [facility] [id number] Information: [id number] (81290) Immature Grans (Abs) 0.0 {x10E3/uL} (Normal) Range: [...] (Normal) Range: 4.0-10.5 :24 HgA1C , Office (77108) HgA1C , Office 6.7 % (Normal) Range: 4.6 - 7.1 :24 Blood Glucose , Office (31796) Blood Glucose , Office 131 (Normal) :50 HgA1C , Office (90362) HgA1C , Office 6.3 % (Normal) Range: 4.6 - 7.1 :50 Blood Glucose , Office (83863) Blood Glucose , Office 116 (Normal) :05 HgA1C , Office (39755) HgA1C , Office 6.7 % (Normal) Range: 4.6 - 7.1 :58 URINALYSIS, W/ MICRO (99652) Comments: PATIENT WAS FASTINGPERFORMED BY: LabCoClara Maass Medical CenterNusgll7947 [facility] [id number] Microscopic Examination See below: (Normal) Microscopic Examination MICRON (Normal) Comments: Microscopic follows if indicated. Nitrite, Urine Negative (Normal) Urobilinogen,Semi-Qn 0.2 mg/dL (Normal) Range: 0.0-1.9 Bilirubin Negative (Normal) Occult Blood Negative (Normal) Ketones Negative (Normal) Glucose Negative (Normal) Protein Negative (Normal) WBC Esterase Negative (Normal) Appearance Clear (Normal) Urine-Color Yellow (Normal) pH 6.5 (Normal) Range: 5.0-7.5 Specific [place] 1.015 (Normal) Range: 1.005-1.030 78-Eyp-799597:58 METABOLIC PANEL, COMPREHENSIVE Comments: PATIENT WAS FASTINGPERFORMED BY: [facility] Lvngmb8639 [facility] [id number] ([id number]) ALT (SGPT) 23 [iU]/L (Normal) Range: 0-55 [...] MANUAL DIFF Comments: PATIENT WAS FASTINGPERFORMED BY: [facility] CenterLzccbb8799 [facility] [id number] Information: [id number] ([id number]) Immature Grans (Abs) 0.0 {x10E3/uL} (Normal) Range: [...] {x10E3/uL} (Normal) Range: 4.0-10.5 :58 LIPID PANEL (32451) Comments: PATIENT WAS FASTINGPERFORMED BY: [facility]6370 [facility] [id number] LDL/HDL Ratio 2.7 {ratio_units} (Normal) Range: 0.0-3.6 LDL Cholesterol Calc 116 mg/dL (Abnormal) Range: 0-99 VLDL Cholesterol Bhraat 45 mg/dL (Abnormal) Range: 5-40 HDL Cholesterol 43 mg/dL (Normal) Comments: According to ATP-III Guidelines, HDL-C >59 mg/dL is considered anegative risk factor for CHD. Triglycerides 225 mg/dL (Abnormal) Range: 0-149 Cholesterol, Total 204 mg/dL (Abnormal) Range: 100-199 :58 MICROALBUMIN: CREATININE RATIO Comments: PATIENT WAS FASTINGPERFORMED BY: [place] [id number] [facility] [id number] ([id number]) AND (12889) Microalb/Creat Ratio 16.0 {mg/g_creat} (Normal) Range: 0.0-30.0 Microalbumin, Urine 22.3 ug/mL (Abnormal) Range: 0.0-17.0 Creatinine, Urine 139.1 mg/dL (Normal) Range: 22.0-328.0 :58 TSH (04535) Comments: PATIENT WAS FASTINGPERFORMED BY: [facility]6370 [facility] [id number] TSH 3.200 {uIU/mL} (Normal) Range: 0.450-4.500 :44 TSH (58646) Comments: PATIENT WAS FASTINGPERFORMED BY: [facility]6370 [facility] [id number] TSH 2.540 {uIU/mL} (Normal) Range: 0.450-4.500 :44 MICROALBUMIN: CREATININE RATIO Comments: PATIENT WAS FASTINGPERFORMED BY: [place] [id number] [facility] [id number] (90013) AND (90341) Microalb/Creat Ratio 22.8 {mg/g_creat} (Normal) Range: 0.0-30.0 Microalbumin, Urine 47.4 ug/mL (Abnormal) Range: 0.0-17.0 Creatinine, Urine 207.7 mg/dL (Normal) Range: 22.0-328.0 :44 CBC with manual diff Comments: PATIENT WAS FASTINGPERFORMED BY: [facility]CoCl[facility] CenterXlchwk1590 [facility] [id number] Information: ADD [id number] AND DRAW FEE [id number] (13810) Immature Grans (Abs) 0.0 {x10E3/uL} (Normal) Range: [...] Panel, Comprehensive Comments: PATIENT WAS FASTINGPERFORMED BY: [employer] [facility] [id number] (85315) ALT (SGPT) 22 [iU]/L (Normal) Range: 0-55 [...] mg/dL (Abnormal) Range: 65-99 :44 Lipid Panel (33158) Comments: PATIENT WAS FASTINGPERFORMED BY: [facility]amRo[facility] HospitalRfguob7359 [facility] [id number]; appt 11/26/10 LDL Cholesterol Calc 109 mg/dL (Abnormal) Range: 0-99 LDL/HDL Ratio 2.4 {ratio_units} (Normal) Range: 0.0-3.6 HDL Cholesterol 46 mg/dL (Normal) Comments: According to ATP-III Guidelines, HDL-C >59 mg/dL is considered anegative risk factor for CHD. VLDL Cholesterol Bharat 37 mg/dL (Normal) Range: 5-40 Triglycerides 183 mg/dL (Abnormal) Range: 0-149 Cholesterol, Total 192 mg/dL (Normal) Range: 100-199 63-Vga-590865:56 Vitamin D Hydroxy Comments: PATIENT NOT FASTINGPERFORMED BY: [facility]6370 [facility] [id number] Information: [id number] (39014) Vitamin D, 25-Hydroxy 19.4 ng/mL (Abnormal) Range: 32.0-100.0 Comments: Recent studies consider the lower limit of 32.0 ng/mL to be athreshold for optimal health.Ashu JIMENEZ. J Nutr. 2004;135(2):317-22. :03 HEPATIC FUNCTION PANEL Comments: PATIENT WAS FASTINGPERFORMED BY: [facility]6370 [facility] [id number] Information: [id number] (77469) Alkaline Phosphatase, S 72 [iU]/L (Normal) Range: 25-160 ALT (SGPT) 24 [iU]/L (Normal) Range: 0-55 AST (SGOT) 21 [iU]/L (Normal) Range: 0-40 Bilirubin, Direct 0.38 mg/dL (Normal) Range: 0.00-0.40 Albumin, Serum 4.0 g/dL (Normal) Range: 3.6-4.8 Bilirubin, Total 1.6 mg/dL (Abnormal) Range: 0.0-1.2 Protein, Total, Serum 6.9 g/dL (Normal) Range: 6.0-8.5 :03 LIPID PANEL (74362) Comments: PATIENT WAS FASTINGPERFORMED BY: [facility]6370 [facility] [id number] LDL/HDL Ratio 1.7 {ratio_units} (Normal) Range: 0.0-3.6 LDL Cholesterol Calc 66 mg/dL (Normal) Range: 0-99 VLDL Cholesterol Bharat 36 mg/dL (Normal) Range: 5-40 Cholesterol, Total 141 mg/dL (Normal) Range: 100-199 HDL Cholesterol 39 mg/dL (Abnormal) Comments: According to ATP-III Guidelines, HDL-C >59 mg/dL is considered anegative risk factor for CHD. Triglycerides 179 mg/dL (Abnormal) Range: 0-149 20-Gxg-72496:55 CBC WITH MANUAL DIFF Comments: PATIENT NOT FASTINGPERFORMED BY: [facility] Qxlbvv4482 [facility] [id number] Information: [id number] (80826) Immature Grans (Abs) 0.0 {x10E3/uL} (Normal) Range: [...] 9.0 {x10E3/uL} (Normal) Range: 4.0-10.5 :55 Magnesium (53780) Comments: PATIENT NOT FASTINGPERFORMED BY: [facility] [id number] Magnesium, Serum 2.1 mg/dL (Normal) Range: 1.6-2.6 :55 Metabolic Panel, Basic (38696) Comments: PATIENT NOT FASTINGPERFORMED BY: [facility] [id number] Calcium, Serum 9.3 mg/dL (Normal) Range: 8.6-10.2 [...] Microscopic Examination Comments: PATIENT WAS FASTINGPERFORMED BY: [employer]70 WoldmeFormerly [facility] [id number] Bacteria None seen (Normal) Cast Type Hyaline casts (Normal) Casts Present {/lpf} (Abnormal) Epithelial Cells (non renal) 0-10 {/hpf} (Normal) Range: 0 - 10 Mucus Threads Present (Normal) RBC 0-3 {/hpf} (Normal) Range: 0 - 3 WBC 0-5 {/hpf} (Normal) Range: 0 - 5 :42 TSH (50889) Comments: PATIENT WAS FASTINGPERFORMED BY: [employer] [facility] [id number] TSH 3.120 {uIU/mL} (Normal) Range: 0.450-4.500 :42 URINALYSIS, W/ MICRO (94859) Comments: PATIENT WAS FASTINGPERFORMED BY: [employer] [facility] [id number] Microscopic Examination See below: (Normal) Bilirubin Negative (Normal) Glucose Negative (Normal) Ketones Negative (Normal) Nitrite, Urine Negative (Normal) Occult Blood Negative (Normal) Urobilinogen,Semi-Qn 0.2 mg/dL (Normal) Range: 0.0-1.9 Appearance Clear (Normal) pH 6.0 (Normal) Range: 5.0-7.5 Protein Negative (Normal) Urine-Color Yellow (Normal) WBC Esterase Trace (Abnormal) Specific [place] 1.020 (Normal) Range: 1.005-1.030 :42 MICROALBUMIN: CREATININE RATIO Comments: PATIENT WAS FASTINGPERFORMED BY: Ulaola Ducjve8085 [facility] [id number] (46534) AND (94736) Microalb/Creat Ratio 14.6 {mg/g_creat} (Normal) Range: 0.0-30.0 Microalbumin, Urine 26.0 ug/mL (Abnormal) Range: 0.0-17.0 Creatinine, Urine 178.3 mg/dL (Normal) Range: 22.0-328.0 :42 METABOLIC PANEL, COMPREHENSIVE Comments: PATIENT WAS FASTINGPERFORMED BY: Ulaola Uabjvi0193 [facility] [id number] (97774) Alkaline Phosphatase, S 68 [iU]/L (Normal) Range: [...] Glucose, Serum 129 mg/dL (Abnormal) Range: 65-99 60-Kgz-23654:42 LIPID PANEL (43999) Comments: PATIENT WAS FASTINGPERFORMED BY: [facility] Cmuwke2494 [facility] [id number] LDL/HDL Ratio 2.5 {ratio_units} (Normal) Range: 0.0-3.6 LDL Cholesterol Calc 103 mg/dL (Abnormal) Range: 0-99 HDL Cholesterol 42 mg/dL (Normal) Comments: According to ATP-III Guidelines, HDL-C >59 mg/dL is considered anegative risk factor for CHD. Triglycerides 147 mg/dL (Normal) Range: 0-149 VLDL Cholesterol Bharat 29 mg/dL (Normal) Range: 5-40 Cholesterol, Total 174 mg/dL (Normal) Range: 100-199 75-Wgl-52293:42 CBC WITH MANUAL DIFF Comments: PATIENT WAS FASTINGPERFORMED BY: [facility]6370 [facility] [id number] Information: ADD [id number] AND DRAW FEE [id number] (45554) Immature Grans (Abs) 0.0 {x10E3/uL} (Normal) Range: [...] (MT) Radiology See Note Comments: Exam Number: [id number] LINICAL:69-year-old man with pain in the left [...] CHOL 194 mg/dL (Normal) Comments: <200 mg/dL Eoqvghpig030-698 mg/dL Borderline>240 mg/dL High Risk :32 PSA, [...] CHOL 157 mg/dL (Normal) Comments: <200 mg/dL Lfthrqdqe292-615 mg/dL Borderline>240 mg/dL High Risk :54 MICROALB:CRE UR MALB:CREAT 10.3 {mg/g_CRE} (Normal) MICROALBUMIN,UR 19.7 mg/L (Normal) UR CREAT 189.9 mg/dL (Normal) :54 TSH 2.03 {uIU/mL} (Normal) Range: 0.358-3.74 :57 WRIST,MIN 3 VIEWS Radiology Report See Note (Normal) Comments: Exam Number: [id number] LEFT HAND Three views of the left hand were obtained. There is good alignment. No acute abnormality is seen. LEFT WRIST Three views were obtained. There is good ali gnment. No significantabnormality is seen. Reported By: SHAHAB CARLOS :56 CHEST, PA AND LATERAL Radiology Report See Note (Normal) Comments: Exam Number: [id number] CHEST, PA AND LATERAL PA and lateral [...] Cardiomegaly. 2. No acute infiltration. Reported By: SHAAHB CARLOS :56 HAND,MIN 3 VIEWS Radiology Report See Note (Normal) Comments: Exam Number: [id number] LEFT HAND Three views of the left [...] 3.5-5.1 NA 141 mmol/L (Normal) Range: 136-145 26-Tkw-109980:41 C-REACTIVE PROT 71.80 mg/L (Abnormal) Range: 0.0-3.0 [...] was performed using the TPSA method for the[facility] chemistry system.Values obtained with different assay methods cannot be usedinterchangably.When changing PSA assays in the course of monito ring apatient, additional sequential testing should be carriedout to confirm baseline values. :32 TSH 1.81 {uIU/mL} (Normal) Range: 0.34-4.82 20-Lbs-858073:46 Vitamin D Hydroxy (58146) Comments: PATIENT NOT FASTINGClinical Information: ADD DRAW FEE [id number] ADD [id number] PERFORMED BY: [employer] [address] [id number] Vitamin D, 25-Hydroxy 56.3 ng/mL (Normal) Range: 32.0-100.0 Comments: Recent studies consider the lower limit of 32.0 ng/mL to be athreshold for optimal health.Ashu JIMENEZ. J Nutr. 2004;135(2):317-22. 38-Crk-039072:46 VITAMIN D, 1, 25-DIHYDROXY Comments: PATIENT NOT FASTINGPERFORMED BY: [employer] [facility] [address] [id number] ([id number]) Vitamin D, 1,25 Dihydroxy 31.0 pg/mL (Normal) Range: 15.9-55.6 14-Xgz-517036:28 CBCD,SMEAR DIFF Comments: GETS LIPID,LIVER,CBCMD,MICROAB.JOANNE VÁZQUEZ GETS [...] mg/dL VLDL 41 mg/dL (Abnormal) Range: 5-40 17-Nin-062871:28 MG 1.7 mg/dL (Normal) Comments: GETS LIPID,LIVER,CBCMD,MICROAB.JOANNE VÁZQUEZ GETS CMP,PHOS,MG,VITD,CBC, Range: 1.5-2.2 02-Flj-230264:28 MICROALBUMIN,UR 6.9 mg/L (Normal) Comments: GETS LIPID,LIVER,CBCMD,MICROAB.JOANNE VÁZQUEZ GETS CMP,PHOS,MG,VITD,CBC, 79-Zgw-221711:28 PHOS 3.2 mg/dL (Normal) Comments: GETS LIPID,LIVER,CBCMD,MICROAB.JOANNE VÁZQUEZ GETS CMP,PHOS,MG,VITD,CBC, Range: 2.5-4.9 24-Wln-624963:28 VIT D,25 94188 29.9 ng/mL (Abnormal) Comments: GETS LIPID,LIVER,CBCMD,MICROAB.JOANNE VÁZQUEZ GETS CMP,PHOS,MG,VITD,CBC, Range: 32.0-100.0 Comments: Recent studies consider the lower limit of 32.0 ng/mL to binta threshold for optimal health.Ashu JIMENEZ. J Nutr. 2004;135(2):317-22.Performed At: [facility]6[address] [place], [place] [id number] 12-Woc-720714:57 VITAMIN D, 1, 25-DIHYDROXY Comments: PATIENT NOT FASTINGClinical Information: ADD DRAW FEE [id number] ADD J [id number] PERFORMED BY: [facility] [id number] ([id number]) Vitamin D, 1,25 Dihydroxy 38.4 pg/mL (Normal) Range: 15.9-55.6 24-Lzw-477060:30 LIPID CHOL 176 mg/dL (Normal) Comments: <200 [...] mg/dL VLDL 41 mg/dL (Abnormal) Range: 5-40 56-Uac-009729:30 LIVER ALB 3.7 g/dL (Normal) Range: 3.4-5.0 ALK P 57 U/L (Normal) Range: 50-136 ALT 41 U/L (Normal) Range: 30-65 AST 23 U/L (Normal) Range: 15-37 D BILI 0.16 mg/dL (Normal) Range: 0.00-0.30 T BILI 1.63 mg/dL (Abnormal) Range: 0.00-1.00 T PROT 6.9 g/dL (Normal) Range: 6.4-8.2 :46 CHEST, PA AND LATERAL Radiology Report See Note (Normal) Comments: Exam Number: [id number] PA AND LATERAL CHEST CLINICAL STATEMENTCough for [...] 6.4-8.2 :34 MICROALBUMIN,UR 14.3 mg/L (Normal) :34 PTH,[id number] Comments: PLASMA ALDOSTERONE PTH,Intact 63 pg/mL (Normal) Range: 12-65 Comments: Performed At: [address] [id number] At: [address] [id number] :34 RENIN,PL 2006 0.38 {ng/mL/hr} Comments: PLASMA [...] {uIU/mL} (Normal) Range: 0.34-4.82 :34 VIT D,25 41949 20.2 ng/mL (Abnormal) Comments: PLASMA ALDOSTERONE Range: 32.0-100.0 Comments: Recent studies consider the lower limit of 32.0 ng/mL to binta threshold for optimal health.Ashu JIMENEZ. J Nutr. 2004;135(2):317-22. 79-Uss-03858:00 PROST BX P-PROSB (Normal) Comments: OPERATION Needle [...] RICCI:yanique 11/23/06 TC:3 REPORT SIGNED: TRINI DIAMOND 11/24/0623-Sep-200613-Yba-259961:35 LIPID CHOL 135 mg/dL (Normal) Comments: <200 [...] was performed using the TPSA method for the[employer] chemistry system.Values obtained with different assay methods [...] 137 mmol/L (Normal) Range: 136-145 :14 PSA [id number] COMMENT Comment (Normal) Comments: The percent free PSA is performed on a reflex basis onlywhen the total PSA is between 4.0 and 10.0 ng/mL.Performed At: [address]ox [address]Dublin, [place] [id number] At: [facility]NL[facility] [place], [place] [id number] PSA, FREE 0.77 ng/mL (Normal) PSA, FREE [...] ng/mL (Abnormal) Range: 0.0-4.0 Comments: [employer] FOR[facility]LY [facility] methodology Plan of Care Name Dates [...] kidney disease Elevated parathyroid hormone : Reviewed Pbx Manager Letter Indication: Elevated parathyroid hormone Elevated parathyroid [...] disease Coronary artery disease, occlusive : Reviewed Pbx Manager Letter Indication: Coronary artery disease, occlusive Coronary [...] occlusive Coronary artery disease, occlusive : Reviewed Pbx Manager Letter Indication: Coronary artery disease, occlusive Malignant [...] in both knees, unspecified chronicity : Reviewed Pbx Manager Letter Indication: Pain in both knees, unspecified [...] hyperlipidemia Coronary artery disease, occlusive : Reviewed Pbx Manager Letter Indication: Coronary artery disease, occlusive Malignant [...] insulin Coronary artery disease, occlusive : Reviewed Pbx Manager Letter Indication: Coronary artery disease, occlusive Malignant [...] disease Coronary artery disease, occlusive : Reviewed Pbx Manager Letter Indication: Coronary artery disease, occlusive Controlled [...] insulin Atrial fibrillation, unspecified type : Reviewed Pbx Manager Letter Indication: Atrial fibrillation, unspecified type Nonsmoker [...] chronic diastolic congestive heart failure : Reviewed Pbx Manager Letter Indication: Acute on chronic diastolic congestive heart failure Fluid overload : Reviewed Lab Indication: Fluid overload Fluid overload : Reviewed Diagnostic Tests Indication: Fluid overload Atrial fibrillation, unspecified type : Reviewed Pbx Manager Letter Indication: Atrial fibrillation, unspecified type Hypertensive [...] on chronic systolic heart failure : Reviewed Pbx Manager Letter Indication: Acute on chronic systolic heart failure Bilateral edema of lower extremity : Reviewed Lab Indication: Bilateral edema of lower extremity Acute on chronic systolic heart failure : Reviewed Pbx Manager Letter Indication: Acute on chronic systolic heart [...] of breath on exertion Coronary atherosclerosis of [place]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 : Reviewed Pbx Manager Letter Indication: 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 : Reviewed Diagnostic Tests Indication: Coronary atherosclerosis of [place]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 Acute systolic congestive heart failure : Follow up in 3 weeks- fu on chf and edema and std process Indication: Acute systolic congestive heart failure Bilateral edema of lower extremity : Follow up in wednesday - quick yessenia Indication: Bilateral edema of lower extremity Coronary atherosclerosis of [place]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 : Eprescribed prescriptions (G8553) Indication: Coronary atherosclerosis of [place]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 Acute systolic congestive heart failure : Reviewed Diagnostic Tests Indication: Acute systolic congestive heart failure Acute systolic congestive heart failure : Continue Current Prescription(s) Indication: Acute systolic congestive heart failure Acute systolic congestive heart failure : Reviewed Pbx Manager Letter Indication: Acute systolic congestive heart failure Shortness of breath on exertion : Follow up wednesday for yessenia on lower extrem edema- and sob & lab Indication: Shortness of breath on exertion Atherosclerosis of [place] coronary artery without angina pectoris, unspecified whether [place] or transplanted heart : Reviewed Pbx Manager Letter Indication: Atherosclerosis of [place] coronary artery without angina pectoris, unspecified whether [place] or transplanted heart Mixed hyperlipidemia : Cholesterol [...] Cholesterol mgmt Indication: Hyperlipidemia Coronary atherosclerosis of [place]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 : Reviewed Pbx Manager Letter Indication: Coronary atherosclerosis of [place]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 Diabetes mellitus type 2, uncontrolled, [...] annual wellness exam Elevated PSA : Reviewed Pbx Manager Letter: milagro neal Indication: Elevated PSA 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 : Continue Current Prescription(s) 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 : Reviewed Lab Indication: Coronary atherosclerosis of [place]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 Hyperlipidemia : Cholesterol mgmt Indication: [...] and congestive heart failure Coronary atherosclerosis of [place]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 : Reviewed Pbx Manager Letter Indication: Coronary atherosclerosis of [place]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 Diabetes mellitus without complication (Renamed from Diabetes mellitus with no complication) : Diabetes Mellitus: Type 2 *: diabetes type 2 Indication: Diabetes mellitus without complication (Renamed from Diabetes mellitus with no complication) CVA (cerebral infarction) : Reviewed Pbx Manager Letter: neuro wants to do a brain [...] brain MRI Abnormal brain MRI : Reviewed Pbx Manager Letter Indication: Abnormal brain MRI Malignant hypertension [...] Vitamin D deficiency, unspecified Coronary atherosclerosis of [place]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 : Reviewed Pbx Manager Letter Indication: Coronary atherosclerosis of [place]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 Hyperlipidemia : Cholesterol mgmt Indication: [...] mellitus with no complication) Coronary atherosclerosis of [place]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 : Reviewed Pbx Manager Letter Indication: Coronary atherosclerosis of [place]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 Diabetes mellitus type 2, uncontrolled, [...] mellitus with no complication) Coronary atherosclerosis of [place]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 : Reviewed Pbx Manager Letter Indication: Coronary atherosclerosis of [place]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 Malignant hypertension with renal disease [...] 2, uncontrolled, without complications Coronary atherosclerosis of [place]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 : Reviewed Pbx Manager Letter Indication: Coronary atherosclerosis of [place]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 Hyperlipidemia : Cholesterol mgmt Indication: [...] with renal disease Elevated PSA : Reviewed Pbx Manager Letter Indication: Elevated PSA Vitamin D deficiency, [...] mgmt Indication: Mixed hyperlipidemia Coronary atherosclerosis of [place]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 : Reviewed Pbx Manager Letter Indication: Coronary atherosclerosis of [place]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 Hypertensive heart disease : Diet, [...] mgmt Indication: Mixed hyperlipidemia Coronary atherosclerosis of [place]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 : Reviewed Pbx Manager Letter Indication: Coronary atherosclerosis of [place]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 Hypertensive heart disease : HTN/CAD [...] Wt loss Indication: Obesity, morbid Atherosclerosis of [place] coronary artery without angina pectoris, unspecified whether [place] or transplanted heart : Reviewed Pbx Manager Letter Indication: Atherosclerosis of [place] coronary artery without angina pectoris, unspecified whether [place] or transplanted heart Hypertensive heart disease : [...] pain : FOLLOW UP IN 2 WEEKS [facility] Indication: Knee pain Obesity, morbid : [...] Nonprescription Treatment Indication: Hyperlipidemia Coronary atherosclerosis of [place]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 : Reviewed Pbx Manager Letter Indication: Coronary atherosclerosis of [place]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 Hypertensive heart disease : Diet, [...] of breath at rest Coronary atherosclerosis of [place]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 : Reviewed Pbx Manager Letter Indication: Coronary atherosclerosis of [place]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 Hypertensive heart disease : Diet, [...] Side Effects Indication: Mixed hyperlipidemia Atherosclerosis of [place] coronary artery without angina pectoris, unspecified whether [place] or transplanted heart : Reviewed Pbx Manager Letter Indication: Atherosclerosis of [place] coronary artery without angina pectoris, unspecified whether [place] or transplanted heart Hypertensive heart disease : [...] obstructive pulmonary disease Elevated PSA : Reviewed Pbx Manager Letter prostate bx negative Indication: Elevated PSA Hypertensive heart disease : Reviewed Pbx Manager Letter Indication: Hypertensive heart disease Hyperlipidemia : [...] - Strool Based DNA Test, CRC SCREEN (32497)Indication: Encounter for screening for malignant neoplasm of colon (Renamed from Special screening for malignant neoplasms, colon) On: 50-Mjk-614052:47 Request TSH (64570)Indication: 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, without long-term current use of insulin On: 5-Ccl-383503:20 Request URINALYSIS, W/ MICRO (85138)Indication: 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 On: 0-Ijn-842421:19 Request MICROALBUMIN: CREATININE RATIO (52006) AND (53520)Indication: 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 On: 9-Gwr-713787:19 Request METABOLIC PANEL, COMPREHENSIVE (31724)Indication: 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 On: :19 Request LIPID PANEL (63462)Indication: 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 On: :19 Request CBC with auto diff (81511)Indication: 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 On: :19 Request CALCIFEDIOL (97133)Indication: Vitamin D deficiency On: :19 Request CALCIFEDIOL (98975)Indication: Vitamin D deficiency On: 34-Xdn-865617:51 Request PARATHORMONE (55349)Indication: Elevated parathyroid hormone On: 07-Gog-850325:51 Request URINALYSIS, W/ MICRO (95460)Indication: Diabetes mellitus without complication (Renamed from Diabetes mellitus with no complication) On: :17 Request MICROALBUMIN: CREATININE RATIO (78362) AND (80624)Indication: Diabetes mellitus without complication (Renamed from Diabetes mellitus with no complication) On: :17 Request CALCIFIDIOL (74768) VIT D 25Indication: Vitamin D deficiency, unspecified On: :39 Request TSH (19973)Indication: 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, without long-term current use of insulin On: :39 Request URINALYSIS, W/ MICRO (09672)Indication: 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, without long-term current use of insulin On: :39 Request MICROALBUMIN: CREATININE RATIO (93610) AND (97909)Indication: 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, without long-term current use of insulin On: :39 Request METABOLIC PANEL, COMPREHENSIVE (94872)Indication: 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, without long-term current use of insulin On: :39 Request LIPID PANEL (88356)Indication: 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, without long-term current use of insulin On: :39 Request CBC W/AUTO DIFF WBC (99623)Indication: 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, without long-term current use of insulin On: :39 Request TSH (44741)Indication: Diabetes mellitus type 2, uncontrolled, without complications On: 93-Hgh-673787:04 Request URINALYSIS, W/ MICRO (92595)Indication: Diabetes mellitus type 2, uncontrolled, without complications On: 17-Hsg-360540:04 Request MICROALBUMIN: CREATININE RATIO (42968) AND (47232)Indication: Diabetes mellitus type 2, uncontrolled, without complications On: 71-Eji-066827:04 Request METABOLIC PANEL, COMPREHENSIVE ([id number])Indication: Diabetes mellitus type 2, uncontrolled, without complications On: :04 Request LIPID PANEL ([id number])Indication: Mixed hyperlipidemia On: : Request CBC W/AUTO DIFF WBC ([id number])Indication: Diabetes mellitus type 2, uncontrolled, without complications On: :03 Request FECAL OCCULT- Tubes sent home ([id number])Indication: Encounter for screening for malignant neoplasm of colon (Renamed from Special screening for malignant neoplasms, colon) On: 2-Pwg-097215:21 Request Metabolic Panel, Basic (85294)Indication: Renal insufficiency On: 5-Mqb-689720:41 Request Comments: wednesday Metabolic Panel, Basic ([id number])Indication: Renal insufficiency On: 05-Jul-2015 Request Metabolic Panel, Basic ([id number])Indication: Renal insufficiency On: 70-Wtu-369154:41 Request BASIC METABOLIC w/Ionized Ca++ (80671)Indication: Short of breath on exertion On: 2-Pwo-117360:31 Request METABOLIC PANEL, BASIC (55525)Indication: Abnormal blood chemistry On: 8-Blk-890130:23 Request Metabolic Panel, Basic ([id number])Indication: Acute systolic congestive heart failure On: 3-Zcn-662646:54 Request Metabolic Panel, Basic ([id number])Indication: Atrial fibrillation, unspecified type On: 53-Nvg-237837:04 Request ASSAY, NATIURETIC PEPTIDE ([id number])Indication: Atrial fibrillation, unspecified type On: 58-Ucu-814219:04 Request ASSAY, NATIURETIC PEPTIDE ([id number])Indication: Bilateral edema of lower extremity On: 73-Chl-705943:13 Request ASSAY, NATIURETIC PEPTIDE ([id number])Indication: Acute systolic congestive heart failure On: 79-Quo-955915:39 Request Comments: re check in 1-2 weeks PSA (Medicare - G0103) ([id number])Indication: Elevated PSA On: :17 Request TSH ([id number])Indication: Diabetes mellitus type 2, uncontrolled, without complications On: :16 Request URINALYSIS, W/ MICRO ([id number])Indication: Diabetes mellitus type 2, uncontrolled, without complications On: :16 Request MICROALBUMIN: CREATININE RATIO ([id number]) AND ([id number])Indication: Diabetes mellitus type 2, uncontrolled, without complications On: :16 Request METABOLIC PANEL, COMPREHENSIVE ([id number])Indication: Diabetes mellitus type 2, uncontrolled, without complications On: :16 Request LIPID PANEL ([id number])Indication: Diabetes mellitus type 2, uncontrolled, without complications On: :16 Request CBC with auto diff ([id number])Indication: Diabetes mellitus type 2, uncontrolled, without complications On: :16 Request CALCIFIDIOL ([id number]) VIT D 25Indication: Vitamin D deficiency, unspecified On: :16 Request Vitamin D Hydroxy (00529)Indication: Vitamin D deficiency, unspecified On: 5-Qhv-568472:05 Request URINALYSIS, W/ MICRO ([id number])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 On: 2-Rui-226493:04 Request MICROALBUMIN: CREATININE RATIO ([id number]) AND ([id number])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 On: 1-Wfb-880556:04 Request METABOLIC PANEL, COMPREHENSIVE ([id number])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 On: 6-Edz-534641:04 Request LIPID PANEL ([id number])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 On: :04 Request CBC WITH MANUAL DIFF ([id number])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 On: 1-Rjv-523838:04 Request FECAL OCCULT- Tubes sent home ([id number])Indication: Encounter for routine history and physical exam for male On: 40-Uey-685231:09 Request CALCIFIDIOL ([id number]) VIT D 25Indication: Vitamin D deficiency, unspecified On: :11 Request PSA TOTAL +%FREE [id number] ([id number])Indication: Elevated PSA On: 1-Aff-874063:14 Request BILIRUBIN, TOTAL & DIRECT ([id number])Indication: Other specified abnormal findings of blood chemistry On: 8-Ojq-210448:14 Request Glucose, PP/2 Hour (60121)Indication: Other specified abnormal findings of blood chemistry On: 35-Ppk-099225:03 Request CALCIFIDIOL (52558) VIT D 25Indication: Vitamin D deficiency, unspecified On: 13-Rml-223787:31 Request TSH ([id number])Indication: Hypertensive heart disease On: : Request URINALYSIS, W/ MICRO ([id number])Indication: Hypertensive heart disease On: :28 Request MICROALBUMIN: CREATININE RATIO ([id number]) AND ([id number])Indication: Hypertensive heart disease On: : Request METABOLIC PANEL, COMPREHENSIVE ([id number])Indication: Hypertensive heart disease On: : Request CBC WITH MANUAL DIFF ([id number])Indication: Hypertensive heart disease On: : Request PSA (PROSTATE SPECIFIC ANTIGEN) (V76.44)Indication: Elevated PSA On: :25 Request LIPID PANEL ([id number])Indication: Hyperlipidemia On: 49-Wex-300824:23 Request Comments: do for next appt- 4mo Metabolic Panel, Basic ([id number])Indication: Pain of hand, unspecified laterality On: 56-Ypn-407568:42 Request URIC ACID BLOOD ([id number])Indication: Pain of hand, unspecified laterality On: 20-Vfc-352405:42 Request C-REACTIVE PROTEIN ([id number])Indication: Pain of hand, unspecified laterality On: 92-Eno-149798:52 Request SED RATE ERYTHROCYTE ([id number])Indication: Pain of hand, unspecified laterality On: 74-Dbb-981500:52 Request CBC WITH MANUAL DIFF ([id number])Indication: Pain of hand, unspecified laterality On: 28-Pwd-608770:51 Request Magnesium (05472)Indication: Hypokalemia On: :25 Request Potassium Serum (28616)Indication: Hypokalemia On: 35-Gnw-257512:25 Request Comments: do in 2 weeks Vitamin D Hydroxy (65321)Indication: Vitamin D deficiency, unspecified On: 53-Nik-996953:23 Request Glucose, PP/2 Hour (65674)Indication: Other specified abnormal findings of blood chemistry On: 94-Cfj-907645:18 Request LIPID PANEL (03875)Indication: Hyperlipidemia On: 76-Qre-013132:45 Request Comments: DO IN 3 MONTHS HEPATIC FUNCTION PANEL ([id number])Indication: Hyperlipidemia On: 73-Cmj-467264:45 Request HEPATIC FUNCTION PANEL ([id number])Indication: Hyperlipidemia On: 76-Fjs-833459:54 Request LIPID PANEL ([id number])Indication: Hyperlipidemia On: 50-Lkd-066254:54 Request Comments: do in 3 months PARATHORMONE (49062)Indication: Vitamin D deficiency, unspecified On: 06-Csj-898444:45 Request CALCIUM SERUM ([id number])Indication: Vitamin D deficiency, unspecified On: 06-Zks-491598:45 Request VITAMIN D, 1, 25-DIHYDROXY ([id number])Indication: Vitamin D deficiency, unspecified On: 37-Nrc-341807:45 Request VITAMIN D, 25-DIHYDROXY ([id number])Indication: Vitamin D deficiency, unspecified On: 08-Uet-874006:45 Request LIPID PANEL ([id number])Indication: Hyperlipidemia On: 97-Uhh-602338:44 Request Planned Procedures INTENSIVE BEHAVIORAL THERAPY TO On: 15-Nov-2017 Intent REDUCE CARDIOVASCULAR DISEASE RISK, INDIVIDUAL, [id number], ANNUAL, 15 MINUTES ([id number])By: Vicki Styles DO, DO, Kathleen [id number] BEHAVIORAL COUNSELING On: 15-Nov-2017 Intent FOR OBESITY, 15 MINUTES (G0447)By: Vicki Styles DO, DO, Kathleen Spirometry ([id number])By: Neil NG, On: 06-Sep-2017 Intent Vicki Nichols DO Comments: severe obsstyuction and good effort on curve-- addeed dulera - ELECTROCARDIOGRAM, COMPLETE (ECG) On: 06-Sep-2017 Intent ([id number])By: Vicki Styles DO Comments: a fib- rate controlled - no acute findings Vicki Styles DO X-RAY OF HAND, THREE VIEWS On: 17-Jun-2017 Intent ([id number])By: Vicki Styles DO Comments: Right hand Vicki Styles DO PARATHYROID SCAN ([id number])By: Neil On: 17-Jun-2017 Intent Vicki NG DO Vicki Overnight Pulse OX ([id number])By: On: 04-Jun-2017 Intent Vicki Styles DO DOVicki IJZL-VN-IRNC BEHAVIORAL COUNSELING On: 09-Nov-2016 Intent FOR OBESITY, 15 MINUTES (G0447)By: Vicki Styles DO NeilVicki santos DO INTENSIVE BEHAVIORAL THERAPY TO On: 09-Nov-2016 Intent REDUCE CARDIOVASCULAR DISEASE RISK, INDIVIDUAL, [id number], ANNUAL, 15 MINUTES (G0446)By: Vicki Styles DO, DO, Kathleen ELECTROCARDIOGRAM, COMPLETE (ECG) On: 10-Sep-2016 Intent (21441)By: Vicki Styles DO Comments: chronic chg - afib/flutter - rate controlled Vicki Styles DO SIX MINUTE WALK TEST (59001)By: On: 26-Mar-2016 Intent Vicki Styles DO DOVicki Overnight Pulse OX (54489)By: On: 09-Mar-2016 Intent Vicki Styles DO DO, Vicki Overnight Pulse OX (85781)By: On: 04-Mar-2016 Intent Vicki Styles DO, DO, Kathleen Spirometry ([id number])By: Neil NG, On: 04-Mar-2016 Intent Vicki Nichols DO Comments: pt admits not using inhalers - restrictive pattern - refilled inhalers - symbicort nad spiriva and will yessenia in one month INTENSIVE BEHAVIORAL THERAPY TO On: 07-Nov-2015 Intent REDUCE CARDIOVASCULAR DISEASE RISK, INDIVIDUAL, [id number]-[id number], ANNUAL, 15 MINUTES (G0446)By: Vicki Styles DO Neil DOVicki [id number] BEHAVIORAL COUNSELING On: 07-Nov-2015 Intent FOR OBESITY, 15 MINUTES (G0447)By: Vicki Styles DO, DO, Kathleen Radiology - Chest- PA and LatBy: On: 18-Apr-2015 Intent Vicki Styles DO, DO, Kathleen Echo CompleteBy: Neil NG, On: 18-Apr-2015 Intent Vicki Nichols DO Prevnar 13 ([id number])By: Neil NG, On: 16-Jan-2014 Intent Vicki Nichols DO Prevnar 13 (57210)By: Neil NG, On: 16-Jan-2014 Intent Vicki Nichols DO Comments: [id number] 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, 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, 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 Overnight Pulse OX ([id number])By: On: 03-Jan-2014 Intent Vicki Styles DO, DO, Kathleen Six Minute Walk Assessment On: 28-Dec-2013 Intent (53032)By: Vicki Styles DO DO, Vicki [id number] BEHAVIORAL COUNSELING On: 23-Nov-2013 Intent FOR OBESITY, 15 MINUTES (G0447)By: Vicki Styles DO, DO, Vicki INTENSIVE BEHAVIORAL THERAPY TO On: 19-Oct-2013 Intent REDUCE CARDIOVASCULAR DISEASE RISK, INDIVIDUAL, [id number], ANNUAL, 15 MINUTES (G0446)By: Vicki Styles DO, DO, Vicki [id number]-LP-[id number] BEHAVIORAL COUNSELING On: 19-Oct-2013 Intent FOR OBESITY, 15 MINUTES (G0447)By: Vicki Styles DO, DO, Kathleen Radiology - Chest- PA and LatBy: On: 24-Aug-2013 Intent Vicki Styles DO, DO, Vicki Aerosol Treatment ([id number])By: On: 24-Aug-2013 Intent Vicki Styles DO Neil DO, Comments: no wheeze and much more a/e Vicki Eprescribed prescriptions On: 15-May-2013 Intent (G8553)By: Leora Fonseca LPN Eprescribed prescriptions On: 20-Mar-2013 Intent (G8553)By: Vicki Styles DO Neil DO, Vicki INTENSIVE BEHAVIORAL THERAPY TO On: 17-Oct-2012 Intent REDUCE CARDIOVASCULAR DISEASE RISK, INDIVIDUAL, [id number], ANNUAL, 15 MINUTES (G0446)By: Vicki Styles DO DO, Vicki [id number]-[id number] BEHAVIORAL COUNSELING On: 17-Oct-2012 Intent FOR OBESITY, 15 MINUTES (G0447)By: Vicki Styles DO, DO, Kathleen EKG ([id number])By: Neli NG, On: 17-Oct-2012 Intent Vicki Neil DO, Vicki Eprescribed prescriptions On: 17-Oct-2012 Intent (G8553)By: Leora Fonseca LPN Six Minute Walk Assessment On: 28-Jul-2012 Intent ([id number])By: Aleksandr HUTSON, Gay Bio Z (51456)By: Neil DO, On: 18-Jul-2012 Intent Vicki Neil DOJonathanVicki Comments: unable to connect and perform Six Minute Walk Assessment On: 18-Jul-2012 Intent ([id number])By: Vicki Styles DO Comments: set up Neil DO, Vicki Eprescribed prescriptions On: 22-Apr-2012 Intent (G8553)By: Leora Fonseca LPN Spirometry (52594)By: Neil NG, On: 21-Jan-2012 Intent Vicki Neil DO Vicki Comments: poor effort Eprescribed prescriptions On: 21-Jan-2012 Intent (G8553)By: Leora Fonseca LPN PFT - CompleteBy: Neil NG, On: 21-Oct-2011 Intent Vicki Neil DO, Vicki EKG ([id number])By: Neil NG, On: 21-Oct-2011 Intent VickiVicki Jones DO Comments: nsr no acute chg Eprescribed prescriptions On: 05-Aug-2011 Intent (G8553)By: Leora Fonseca LPN Six Minute Walk Assessment On: 06-Feb-2011 Intent ([id number])By: Naomi Mendez Comments: see scanned documents Six Minute Walk Assessment On: 26-Nov-2010 Intent ([id number])By: Vicki Styles DO Comments: set up Neil DO, Vicki Bio Z (66222)By: Neil NG, On: 26-Nov-2010 Intent VickiVicki Hernandez DO Comments: norrmal parameters no chg in rx EKG ([id number])By: Neil NG, On: 26-Nov-2010 Intent Vicki NeilVicki santos DO Comments: nsr no acute chgn TDAP VACCINE >7 IM (16239)By: On: 30-Jul-2010 Intent Vicki Styles DO, DO, Comments: Lot:[id number]:06/26/12Amt:prefilledRoute:IMSite: left deltGiven By: CARYL Edwards Eprescribed prescriptions On: 30-Jul-2010 Intent (G8553)By: Vicki Styles DO, DO, Vicki Bio Z (01795)By: Neil NG, On: 30-Jul-2010 Intent Vicki Nichols DO Comments: STABLE SEE SCANNED DOC -NO CHG IN MEDS EKG (26120)By: Neil NG, On: 26-Mar-2010 Intent Vicki Styles DO, Vicki Bio Z ([id number])By: Neil NG, On: 26-Mar-2010 Intent Vicki Nichols DO PHYSICAL THERAPY EVALUATION On: 07-Jan-2010 Intent ([id number])By: Elisabet Matos CNP Radiology - Knee - [...] Styles DO Neil DO, Vicki Bio Z ([id number])By: Neil NG, On: 19-Mar-2009 Intent Vicki Nichols DO Comments: ok co and svr EKG (68627)By: Neil NG, On: 19-Mar-2009 Intent Vicki Nichols DO Comments: nsr no acute changes Spirometry (57668)By: Neil NG, On: 19-Mar-2009 Intent Vicki Nichols DO Comments: mild obstructive pattern - Pulse Oximetry (72211)By: Mast RN, On: 19-Mar-2009 Intent Darling EKG (60852)By: Neil NG, On: 25-Jul-2008 Intent Vicki Nichols DO Comments: no acute stable Bio Z ([id number])By: Neil NG, On: 25-Jul-2008 Intent Vicki Nichols DO Comments: stable no changes Six Minute Walk Assessment On: 16-May-2008 Intent (13229)By: Crystal Reyes Six Minute Walk Assessment On: 23-Mar-2008 Intent (23809)By: Vicki Styles DO, DO, Kathleen Bio Z (96132)By: Neil NG, On: 23-Mar-2008 Intent Vicki Nichols DO Comments: normal svr and co Radiology - Knee - LeftBy: Neil On: 28-Dec-2007 Intent Vicki NG DO, Kathleen Radiology - Knee - RightBy: Neil On: 28-Dec-2007 Intent Vicki NG DO, Kathleen Bio Z ([id number])By: Neil NG, On: 28-Dec-2007 Intent Vicki Nichols DO Comments: normal svr and co Bio Z ([id number])By: Neil NG, On: 01-Sep-2007 Intent Vicki Nichols DO Comments: HYPERDYNAMIC HEART-- HI CO AND LO SVR Holter Moniter (43792)By: Neil On: 04-May-2007 Intent Vicki NG DO, Kathleen Comments: set up Bio Z ([id number])By: Neil NG, On: 04-May-2007 Intent Vicki Nichols DO Comments: normal svr and co EKG (39240)By: Neil NG, On: 04-May-2007 Intent Vicki Nichols DO Comments: nsr some pvc-- no acute ischemic changes Radiology - Chest- PA and LatBy: On: 24-Mar-2007 Intent Vicki Styles DO, DO, Kathleen Aerosol Treatment (23734)By: On: 24-Mar-2007 Intent Vicki Styles DO, DO, Comments: better air exchange less wheeze and less irritability with cough Vicki Solu- Medrol Injection, 125mg On: 24-Mar-2007 Intent ([id number])By: Vicki Styles DO Comments: given in right hip, 125mg, lot#[id number], exp.-- Vicki Styles DO Spirometry (40158)By: Neil NG, On: 24-Mar-2007 Intent Vicki Nichols DO Comments: severe airway obstruction Pulse Oximetry (54412)By: Neil On: 24-Mar-2007 Vicki Coates DO, DO, Kathleen Comments: 94% Doppler Ultrasound OtherBy: Neil On: 02-Mar-2007 Vicki Coates DO, DO, Kathleen Comments: R Inhaler Demo (65213)By: Neil NG, On: 27-Jan-2007 Intent Vicki Nichols DO Bio Z (02437)By: Neil NG, On: 27-Jan-2007 Intent Vicki Nichols DO Comments: normal svr and co Spirometry (39428)By: Neil NG, On: 27-Jan-2007 Intent Vicki Nichols DO Comments: mild obstruction Bio Z ([id number])By: Neil NG, On: 11-Oct-2006 Intent Vicki Nichols DO Comments: normal svr and co EKG (42102)By: Neil NG, On: 26-Apr-2006 Intent Vicki Nichols DO Comments: nsr intraventricular conduction delay no acute ischemic changes Holter Moniter ([id number])By: On: 26-Mar-2006 Intent REILLY Moya Instructions Name [...] systolic congestive heart failure Coronary atherosclerosis of [place]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 : How to access health information online Indication: 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 : How to access health information online - Detail Indication: Coronary atherosclerosis of [place]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 Bilateral edema of lower extremity [...] 2, uncontrolled, without complications Coronary atherosclerosis of [place]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 : cardiovascular counseling Indication: Coronary atherosclerosis of [place]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 BMI 37.0-37.9, adult : obesity [...] Indication: Abnormal brain MRI Coronary atherosclerosis of [place]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 : cardiovascular counseling Indication: Coronary atherosclerosis of [place]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 BMI 36.0-36.9,adult : obesity counseling [...] The patient does have durable power of estate planning attorney and living will. The patient has noticed nothing from the geriatic depression scale. Other providers contributing to the patient's care are real estate services administrator, audio visual facilities engineer, urologist and other: (endo).Encounter Diagnosis: Nonsmoker, BMI [...] I called squad and I was at [facility] and then I went to [facility] for End: 06-Jan-2017 11:01 heraphy) and a [...] The patient does have durable power of estate planning attorney and living will. The patient has noticed nothing from the geriatic depression scale. Other providers contributing to the patient's care are real estate services administrator, urologist and other:.Encounter Diagnosis: Nonsmoker, BMI 35.0-35.9,adult, [...] extremity edema, increase SOB. Recent trip to [place] Encounter Diagnosis: Edema extremities, Fluid overload, Atrial [...] The patient does have durable power of estate planning attorney and living will. The patient has noticed lack of energy. Other providers contributing to the patient's care are real estate services administrator and urologist. Encounter Diagnosis: Encounter for Medicare [...] Hypertension with renal disease, Coronary atherosclerosis of [place]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, Chronic kidney disease, stage 3 [...] vivid dreams. Encounter Diagnosis: Coronary atherosclerosis of [place]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, Apnea, BPH (benign prostatic hyperplasia) (600.90), Other urinary incontinence, Bilateral edema of lower extremity, Short of breath on exertion, Non morbid obesity, unspecified obesity type, Therapeutic drug monitoring [facility] Visit On: 10-May-2015 10:16 Encounter Diagnosis: Atrial fibrillation, unspecified type, Coronary atherosclerosis of [place]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 (414.01), Acute systolic congestive heart [...] type, Abnormal blood chemistry, Coronary atherosclerosis of [place]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 (414.01) End: 06-May-2015 10:58 Comprehensive [...] deficiency, unspecified, Mixed hyperlipidemia (272.2), Atherosclerosis of [place] coronary artery without angina pectoris, unspecified whether [place] or transplanted heart, History of CVA in [...] weight :. Encounter Diagnosis: Coronary atherosclerosis of [place]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 (414.01), BMI 37.0-37.9, ADULT (V85.37), [...] patient d oes have durable power of estate planning attorney and living will. The patient has noticed feeling situation is hopeless (recently). Other providers contributing to the patient's care are real estate services administrator (Dr. 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), Diabetes mellitus without complication (Renamed from Diabetes mellitus with no complication), Hyperlipidemia (272.4), Edema (782.3) [facility] Office Visit On: 20-Mar-2013 10:40 Encounter Diagnosis: Hypertension with Heart and 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 The patient has completed the [facility], an acute care hospital preventative measures: PSA testing (september 2012) and colonoscopy (around 10 years). The patient does have durable power of estate planning attorney and living will. The patient has noticed nothing from the geriatic depression scale. Other providers contributing to the patient's care are real estate services administrator (Dr. Greenfield) and urologist. 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), Hyperlipidemia (272.4), Coronary atherosclerosis of [place]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 (414.01), Unspecified vitamin D deficiency [...] disease (402.90), Hyperlipidemia (272.4), Coronary atherosclerosis of [place]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 (414.01), Edema (782.3) [facility] [...] mellitus without complication (250.00), Coronary atherosclerosis of [place]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 (414.01), Hypertension with Renal Disease [...] II,uncontrolled, no comp (250.02), Coronary atherosclerosis of [place]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 (414.01), Atrial fibrillation (427.31), Benign [...] fibrillation (427.31), COPD (496.), Coronary atherosclerosis of [place]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 (414.01) [facility] Phone [...] fibrillation (427.31), COPD (496.), Coronary atherosclerosis of [place]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 (414.01), Mixed hyperlipidemia (272.2), Hypertensive [...] , Atrial fibrillation (427.31), Coronary atherosclerosis of [place]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 (414.01) [facility] Office [...] Coronary atherosclerosis of unspecified type of vessel, [place] or graft (414.00), COPD (496.), Hyperglycemia (790.29), [...] Coronary atherosclerosis of unspecified type of vessel, [place] or graft (414.00), Atrial fibrillation (427.31), Obesity, [...] Coronary atherosclerosis of unspecified type of vessel, [place] or graft (414.00), Hypertensive heart disease (402.90) [...] Hypertensive heart disease (402.90), Coronary atherosclerosis of [place]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 (414.01), Atrial fibrillation (427.31), Hyperlipidemia [...] Coronary atherosclerosis of unspecified type of vessel, [place] or graft (414.00), Atrial fibrillation (427.31), Hypocalcemia [...] Hypertensive heart disease (402.90), Coronary atherosclerosis of [place]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 (414.01), Hyperlipidemia (272.4), COPD (496.), [...] Coronary atherosclerosis of unspecified type of vessel, [place] or graft (414.00), Atrial fibrillation (427.31), Mixed [...] Coronary atherosclerosis of unspecified type of vessel, [place] or graft (414.00), Atrial fibrillation (427.31), Mixed [...] Coronary atherosclerosis of unspecified type of vessel, [place] or graft (414.00), Atrial fibrillation (427.31), Coronary atherosclerosis of [place]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 (414.01), Unspecified vitamin D deficiency [...] Diagnosis: Atrial fibrillation (427.31), Coronary atherosclerosis of [place]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 (414.01), Hypertensive heart disease (402.90), [...] (402.90), Atrial fibrillation (427.31), Coronary atherosclerosis of [place]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 (414.01), Hyperlipidemia (272.4), Cough (786.2), [...] Hypertensive heart disease (402.90), Coronary atherosclerosis of [place]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 (414.01), Atrial fibrillation (427.31), Hyperlipidemia [...] End: 01-Jan-2006 12:10 Payers MedicareTRICARE FOR LIFE, [facility] [employer]; a guarantor
--- OUTSIDE RECORDS SUMMARY | 2018-04-29 15:53 | XMS RPT_ITS | Continuity of Care Document ---
:1940 Author Organization [facility] Address [facility]7 [facility] [address] [place] [address] Phone Care Team Providers Name Role Phone Neil DO Vicki Unavailable Milagro PHAN, Dr. Mohsen Mckenna Unavailable Physical Therapy, [facility] Unavailable Lesa Alvarado Unavailable Dr. Juan Sin DO Unavailable [facility], Diagnostic Services Unavailable Kimo Roger MD Unavailable Mata Leonard Unavailable [facility] Unavailable Kamaljit PHAN, Dr. 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) Status: Active Hypoxia (R09.02, 799.02) Comments: sleep related and wears at nightmanaged by [employer] Status: Active Influenza vaccination declined (Renamed from [...] 90 days Quantity: 180 {Tablet} Refills: 3 Ordered:21-Feb-2018 Fabiola Styles DO, DO, Kathleen Start : 21-Feb-2018 Active Lopressor 100 MG Oral Tablet 1 Tablet bid for 90 days Quantity: 180 {Tablet} Refills: 2 Ordered:28-Feb-2018 Jennyefr Arcos Start : 28-Feb-2018 Active Lopressor 100 [...] 17-Jun-2017 Inactive Comments:on national back order DRISDOL, 02420ZTFJ (Oral Capsule) 1 Capsule uad for 0 days Quantity: 8 {Capsule} Refills: 4 Ordered:21-Jan-2012 Leora Fonseca LPN Start : 31-Jul-2010 End : 21-Jan-2012 Inactive Comments:2 tabs q week x 4 mo and then 1 tab weekly ERGOCALCIFEROL, 98919DLRN (Oral Capsule) 1 (one) Capsule tad for [...] Moya Start : 21-Aug-2008 Inactive VITAMIN D3, 67839JYSU (Oral Capsule) 1 Capsule 2 x week [...] : 04-Jun-2017 Discontinued Comments:This order discontinued per [facility]. DIOVAN HCT, 320-25MG (Oral Tablet) 1 (one) [...] days Quantity: 30 {Tablet} Refills: 3 Ordered:17-Jun-2017 Fabiola Styles DO, DO Vicki Start : 17-Jun-2017 End : 17-Jun-2017 Discontinued [...] Comments:take 1/2 hr prior to lasix Nystatin 237890 UNIT/ML Mouth/Throat Suspension 5 cc cc swish [...] Inactive as of 04-Mar-2016 Coronary atherosclerosis of [place]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 (I25.10, 414.01) Comments: other stent [...] Visit Report Result: Comments: See Note; NOTES: [facility] [place] [address] OFFICE VISIT Date of Service: 01/13/18 MR#: [id number] Acct: [id number] Name: RAMU DEWITT Rep #: [id number] : 1940 Provider: Jimi Greenfield MD Age/Sex: 77/M Location: [facility] Status: Signed HPI HPI Chief Complaint: Follow up visit Details: RAMU DEWITT, is a 77 M who presents to the [facility] today for a cardiovascular outpatient follow-up. Patient has a history of coronary artery disease with bypass surgery 2003. He had a VILLEDA to LAD, SVG to circumflex, and SVG to posterior descending artery. He also has a history of atrial fibrillation s/p unsuccessful cardioversion in 2015, ischemic cardiomyopathy, pulmonary hypertension, hyperlipidemia, congestive heart failure, and sleep apnea. 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 4. Persistent atrial fibrillation I48.1 [...] 3 Views Result: Comments: See Note; NOTES: [facility] Imaging Services [address] [place] [address] Hand Min 3 Views MR#: [id number] Acct: [id number] Name: RAMU DEWITT Rep #: [id number] DO B: 1940 M 76 From: Andre Crisostomo MD PCP: Vicki Styles DO Status: REG CLI Study: Hand Min 3 Views Date of Exam: 08/20/17 Exam# [id number] Ordering Dr: Lesa Alvarado MD STUDY: X-RAY [...] CC: Vicki Styles DO; Lesa Alvarado MD Trailer Driver: Signed 20-Aug-2017 Hand Min 3 Views Result: Comments: See Note; NOTES: [facility] Imaging Services [address] [place] [address] Hand Min 3 Views MR#: [id number] Acct: [id number] Name: RAMU DEWITT Rep #: [id number] DO B: 1940 M 76 From: Andre Crisostomo MD PCP: Vicki Styles DO Status: REG CLI Study: Hand Min 3 Views Date of Exam: 08/20/17 Exam# [id number] Ordering Dr: Lesa Alvarado MD STUDY: X-RAY [...] CC: Vicki Styles DO; Lesa Alvarado MD Trailer Driver: Signed 20-Aug-2017 Knee 4 or More Views Result: Comments: See Note; NOTES: [facility] Imaging Services [address] [place] [place] [address] Knee 4 or More Views MR#: [id number] Acct: [id number] Name: RAMU DEWITT Rep #: [id number] : 1940 76 From: Andre Crisostomo MD PCP: Vicki Styles DO Status: REG CLI Study: Knee 4 or More Views Date of Exam: 08/20/17 Exam# [id number] Ordering Dr: Lesa Alvarado MD STUDY: X-RAY [...] CC: Vicki Styles DO; Lesa Alvarado MD Trailer Driver: Signed 20-Aug-2017 Knee 4 or More Views Result: Comments: See Note; NOTES: [facility] Imaging Services [address] [place] [address] Knee 4 or More Views MR#: [id number] Acct: [id number] Name: RAMU DEWITT Rep #: [id number] : 1940 M 76 From: Andre Crisostomo MD PCP: Vicki Styles DO Status: REG CLI Study: Knee 4 or More Views Date of Exam: 08/20/17 Exam# [id number] Ordering Dr: Lesa Alvarado MD STUDY: X-RAY [...] CC: Vicki Styles DO; Lesa Alvarado MD Trailer Driver: Signed 24-Jun-2017 Parathyroid Scan Result: Comments: See Note; NOTES: [facility] Imaging Services [address] [place] [address] Parathyroid Scan MR#: [id number] Acct: [id number] Name: RAMU DEWITT Rep #: [id number] DO B: 1940 M 76 From: Rickie Navi NG PCP: Vicki Styles DO Status: REG CLI Study: Parathyroid Scan Date of Exam: 06/24/17 Exam# [id number] Ordering Dr: Vicki Styles DO CLINICAL: 76-year-old [...] Service support , CC: Vicki Styles DO Trailer Driver: Signed 17-Jun-2017 Hand Min 3 Views Result: Comments: See Note; NOTES: [facility] Imaging Services [address] [place] [address] Hand Min 3 Views MR#: [id number] Acct: [id number] Name: RAMU DEWITT Rep #: [id number] DO B: 1940 M 76 From: Trung Gonzalez DO PCP: Vicki Styles DO Status: REG CLI Study: Hand Min 3 Views Date of Exam: 06/17/17 Exam# [id number] Ordering Dr: Vicki Styles DO STUDY: X-RAY [...] Service support , CC: Samira Styles DO Trailer Driver: Signed 16-Jun-2017 Cardiology Visit Report Result: Comments: See Note; NOTES: [facility] [address] [place], [place] [address] [place] [address] OFFICE VISIT Date of Service: 06/16/17 MR#: [id number] Acct: [id number] Name: RAMU DEWITT Rep #: [id number] : 1940 Provider: LUIS Sanders Age/Sex: 76/M [place] [facility] Status: Signed HPI HPI Details: [...] Lt brachial Intake Visit Reasons: 3 M FU Application Software Developer Required: No Accompanied by: None Is patient [...] 12/12/16 [Rx Confirmed 06/14/17] Hydrocodone Bitart/Apap 5-325 [Half Way 5/325] 1 tab PO Q6H PRN PRN #30 tab 12/12 [Rx Confirmed 06/14/17] apixaban 2.5 mg tablet 2.5 mg PO BID #14 tab 04/08/17 [Rx Confirmed 06/14/17] Ejection fraction %: 40 to 44 PFSH Medical History History of stroke (Chronic) 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 2. Atherosclerosis of [place] coronary artery of [place] heart witho ut angina pectoris I25.10 S/P [...] on any cholesterol lowering medication. 6 . termite control technician use of drug Z79.899 Plan - TARIQ [...] prior to saving. 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) Coding Level of Care Code Off vis,est,level 3 Diagnoses Cardiomyopathy, ischemic I25.5 Atherosclerosis of [place] coronary artery of [place] heart without angina pectoris I25.10 Persistent atrial fibr illation I48.1 Atrial fibrillation type: persistent Essential hypertension I10 Hypertension type: essential hypertension Mixed hyperlipidemia E78.2 Hyperlipidemia type: mixed hyperlipidemia MCFP us e of drug Z79.899 Coding Level of Care Code Off vis,est,level 3 Diagnoses Cardiomyopathy, ischemic I25.5 Atherosclerosis of [place] coronary artery of [place] heart without angina pectoris I25.10 Persi stent atrial fibrillation I48.1 Atrial fibrillation type: persistent Essential hypertension I10 Hypertension type: essential hypertension Mixed hyperlipidemia E78.2 Hyperlipidemia type: mixed hyperlipid emia MCFP use of drug Z79.899 06/16/17 1139 <Electronically signed by Ramu POTTER> Date Ramu Sanders NP-C 06/16/17 1417&am p;#60;Electronically signed by Jimi Greenfield MD> Cosigner Signature: Date (if applicable) Jimi Greenfield MD CC: Vicki Styles DO 08-Dec-2016 Emergency Department Summary Result: Comments: See Note; NOTES: [facility] Medical Records Department [address] [place] [address] Emergency Department Summary 12/08/16 1354 MR#: [id number] Acct: [id number] Name: RAMU DEWITT Rep #: [id number] : 1940 75 From: Robe Mary MD [...] [place] C. Computer is reading acute inferior IA. I am in disagreement. Chest x-ray reveals [...] ED Patient: Chief Complaint: Weakness Referrals: Vicki Styles DO [Primary Care Provider] - What to do if you have Problems For any increased pain, shortness of breath, bleeding, nausea or vomiting, chest pain, or any unexpected problems, contact your Primary Care Provider. Call [facility] ([phone]) or r bethanyrt to the closest Emergency Room. Call 911 if necessary. 12/08/16 1359 <Electronically signed by Robe Mary MD> Date Robe Mary MD Cosigner Signature (If Indicated): Date CC: Jimi Greenfield MD; Vicki Styles DO 08-Dec-2016 Knee 1 or 2 Views Result: Comments: See Note; NOTES: [facility] Imaging Services [address] [place] [address] Knee 1 or 2 Views MR#: [id number] Acct: [id number] Name: RAMU DEWITT Rep #: [id number] D OB: 1940 M 75 From: Shahab Carlos MD PCP: Vicki Styles DO Status: REG ER Study: Knee 1 or 2 Views Date of Exam: 12/08/16 Exam# [id number] Ordering Dr: Robe Mary MD STUDY: X-RAY [...] Shahab Carlos MD at 12:57 EDT Tel [phone], Service support , CC: Vicki Styles DO; Robe Mary MD Trailer Driver: Signed 08-Dec-2016 Chest 1 View (Portable) Result: Comments: See Note; NOTES: [facility] Imaging Services [address] [place] [address] Chest 1 View (Portable) MR#: [id number] Acct: [id number] Name: RAMU DEWITT Rep #: [id number] : 1940 75 From: Shahab Carlos MD PCP: Vicki Styles DO Status: [facility] ER Study: Chest 1 View (Portable) Date of Exam: 12/08/16 Exam# [id number] Ordering Dr: Robe Mary MD STUDY: X- [...] Shahab Carlos MD at 12:58 EDT Tel [phone], Service support , CC: Vicki Styles DO; Robe Mary MD Trailer Driver: Signed 07-Jan-2016 Chest 1 View (Portable) Result: Comments: See Note; NOTES: [facility] Imaging Services [address] [place] [address] Verda 4d Chest 1 View (Portable) MR#: [id number] Acct: [id number] Name: RAMU DEWITT Rep #: [id number] : 1940 75 From: Shahab Carlos MD PCP: Vicki Styles DO Status: REG ER Study: Chest 1 View (Portable) Date of Exam: 01/07/16 Exam# [id number] Ordering Dr: Ron Buchanan MD STUDY: X-RAY CHEST REASON FOR EXAM: Male, 75 years old. Shortness of breath with exertion. TECHNIQUE: Single AP portable view of the chest. COMPARISON: Comparison is made with prior study donald amanda July 09, 2015. FINDINGS: There is evidence [...] Shahab Carlos MD at 15:38 EDT Tel [phone], Service support [phone], CC: Vicki Styles DO; Jerel Buchanan MD Trailer Driver: Signed 13-Nov-2015 Echocardiogram Complete Result: Comments: See Note; NOTES: [facility] Cardiovascular Services [address] [place] [address] Echo Complete 11/13/15 1006 MR#: [id number] Acct: [id number] Name: RAMU DEWITT Rep #: [id number] : 1940 74 From: Jimi Greenfield MD Attending Dr: Precious Cole Status: REG I Ordering Dr: Precious Cole Date: 11/13/15 Location: [facility] Sex: M C Admitted: Reas on For [...] Dictated: 11/13/15 1006 Date Transcribed: 11/13/15 1256 Trailer Driver: Signed 08-Oct-2015 ELECTROCARDIOGRAM, COMPLETE (ECG) (84251) Result: [MEASUREMENTS ANALYSIS] Date of Test: 10/08/2015 09:07:11; Heart Rate: 98; IA Interval: 0; QRS: 114; QT Interval: 372; Corrected QT Interval (QTc): 438; P Wave [place]: -90; QRS [place]: -1; T Wave [place]: -33; Blood Pressure: 142/86 [ECG DIAGNOSTIC STATEMENTS] Date of Test: 10/08/2015 09:07:11; Summary: Atrial fibrillation -Nonspecific ST depression + Nonspecific T-abnormality -Nondiagnostic. ABNORMAL 09-Jul-2015 Chest 1 View (Portable) Result: Comments: See Note; NOTES: [facility] Imaging Services [address] [place] [address] Verdana 4d Chest 1 View (Portable) MR#: [id number] Acct: [id number] Name: RAMU MARTIN Rep #: [id number] : 1940 M 74 From: Noa Buchanan MD PCP: Vicki Styles DO Status: REG ER Study: Chest 1 View (Portable) Date of Exam: 07/09/15 Exam# [id number] Ordering Dr: Jerel Buchanan MD STUDY: X-RAY [...] at 17:21 EDT Tel , Service support [phone], RAD/Chest 1 View (Portable) IMPRESSION: New small pleural effusion with right b asilar lung consolidation. Persisting cardiomegaly. Electronically Signed: Noa Buchanan MD at 17:21 EDT Tel , Service support [phone], C C: Vicki Styles DO; Jerel Buchanan MD Trailer Driver: Signed 24-May-2015 Nuclear Stress Test - Chemical Result: Comments: See Note; NOTES: [facility] Imaging Services [address] [place] [address] Verdana 4d Nuclear Stress Test - Chemical MR#: [id number] Acct: [id number] N ani: RAMU DEWITT Rep #: [id number] : 1940 74 From: Jiim Greenfield MD Primary Care: Neil NGVicki Status: REG CLI Ordering Dr: Jimi Greenfield [...] present. Jimi Greenfield MD T: NTS JOB: [id number] <Electronically signed by Jimi Greenfield MD> Date Jimi Greenfield MD CC: Vicki Styles DO Date Dictated: 05/24/15 1253 D ate Transcribed: 05/24/153 Trailer Driver: Signed 18-Apr-2015 Chest 1 View (Portable) Result: Comments: See Note; NOTES: [facility] Imaging Services [address] [place] [address] Verdana 4d Chest 1 View (Portable) MR#: [id number] Acct: [id number] Name: RAMU MARTIN Rep #: [id number] : 1940 74 From: Shahab Carlos MD PCP: Vicki Styles DO Status: REG ER Study: Chest 1 View (Portable) Date of Exam: 04/18/15 Exam# [id number] Ordering D r: Ros Zuniga STUDY: X-RAY [...] Shahab Carlos MD at 13:57 EST Tel [phone], Service support [phone], RAD/Chest 1 View (P ortable) IMPRESSION: Thyromegaly and mild degree of CHF with bibasilar atelectasis. Electronically Signed: Shahab Carlos MD at 13:57 EST Tel [phone], Service support , CC: Ros Zuniga; Vicki Styles DO Trailer Driver: Signed 18-Apr-2015 EKG (79432) Comments: afib with RVR-- 150 -pt admits he hasnt taken bystolic >30 day Result: [MEASUREMENTS ANALYSIS] Date of Test: 04/18/2015 11:50:46; Heart Rate: 150; IA Interval: -612; QRS: 96; QT Interval: 302; Corrected QT Interval (QTc): 459; P Wave [place]: 1; QRS Wave [place]: 15; T Wave [place] : -90; Blood Pressure: 124/82 [ECG DIAGNOSTIC STATEMENTS] Date of Test: 04/18/2015 11:50:46; Summary: Possible atrial fibrillation -Inferior infarct -age undetermined. -Nonspecific ST depression -Nondiagnostic. ABNORMAL 06-May-2014 Sleep Study Report Result: Comments: See Note; NOTES: [facility] [address] [place] [address] Polysomnography with NCPAP MR#: [id number] Acct: [id number] Name: RAMU DEWITT Rep #: [id number] : 1940 73 From: Cezar Escalante MD PCP: Vicki Styles DO Status: REG CLI Ordering DrLaquita: Dana Osborne CROP PEST CONTROL SPECIALIST-C Date: 05/01/14 Sex: M C REFERRING PHYSICIAN: COREY Shah SLEEP HISTORY: This is a CPAP titration study performed on this 73-year-old male with a body mass index of 36.5 and an [place] Sleepiness Scale score of 8. Diagnostic polysomnogram [...] version). Please note that a reference to [facility] AHI in this report is consistent with the current Hypopnea definition according to Medicare Criteria and an AAS AHI reference is consistent with the current Hypopnea definition according to the AASM criteria. PROCEDURE: The study was attended continuously by a injection mold technician. Monitored parameters included left and right [...] patient be prescribed a bilevel setting of /15 with comfort controls as follows: Ti Max [...] <Electronically signed by Cezar Escalante MD > ELIAS Date Cezar Escalante MD Co-signature (if applicable) Date Signed 13-Mar-2014 Sleep Study Report Result: Comments: See Note; NOTES: [facility] [address] [facility] [place] [address] Polysomnography MR#: [id number] Acct: [id number] Name: RAMU DEWITT Rep #: [id number] : 1940 73 From: Dillon Miner MD PCP: Vicki Styles DO Status: REG CLI Ordering Dr.: Vicki Styles DO Date: 03/08/14 Sex: M C REFERRING PHYSICIAN: Dr. Styles. SLEEP HIS TORY: The patient is a 73-year-old gentleman with a calculated body mass index of 36.5 and an [place] Sleepiness Scale score of 8/24. He complains [...] version). Please note that a reference to [facility] AHI in this report is consistent with the current Hypopnea definition according t o Medicare Criteria and an AASM AHI reference is consistent with the current Hypopnea definition according to the AASM criteria. PROCEDURE: The study was attended continuously by a injection mold technician. Monitored parameters included left and right EOG, frontal, central, and occipital EEG, mental and submental EMG, left and right anterior tibialis EMG, signal ECG waveform, snore, continuous airflow w ith thermistor and nasal pressure transducer, chest and abdominal plethysmography efforts, oxygen saturation with heart rate, and body positioning with video monitoring. SLEEP STUDY DATA: The [facility] polysomnogram began at 0939:27 p.m. and ended at 567922 a.m. for a total recording time of [...] Co-signature (if applicable) Date Signed 28-Dec-2013 Spirometry (17615) Result: 29-Aug-2013 Chest PA and Lateral Result: Comments: See Note; NOTES: [facility] Imaging Services [address] [place] [address] Radiology Report MR#: [id number] Acct: [id number] Name: RAMU DEWITT Rep #: [id number] : 1940 M 72 From: Shahab Carlos MD PCP: Vicki Styles DO Status: [facility] CLI Study: Chest PA and Lateral Date of Exam: 08/29/13 Exam# [id number] Ordering Dr: Vicki Styles DO STUDY: X-RAY [...] Shahab Carlos MD at 15:06 EDT Tel [phone], Service support [phone], CC: Vicki Styles DO Trailer Driver: Signed 24-Aug-2013 Spirometry (10804) Comments: obstruction present Result: Social History Name Dates Details Alcohol Use Comments: Occasional alcohol use Status: Active Caffeine Use Comments: 6 - 8 Glasses per day Status: Active Non Smoker/No Tobacco Use Status: Active Tobacco use: Former smoker. Comments: 08/26/11 Status: Active Smoking Status Name Dates Details Former smoker Vital Signs Date Test Result Details 07-Nbx-410008:13 Comments: [facility] and had a glaucoma test donehearing wn [...] kg/m2 Body Surface Area Calculated 2.08 m2 4-Drg-438741:19 Pulse 68 /min Comments: Pattern: Regular Respiration [...] kg/m2 Body Surface Area Calculated 2.08 m2 7-Vvl-485470:08 Pulse 62 /min Comments: Pattern: Regular Respiration [...] Area Calculated 2.05 m2 :36 Comments: hearing [facility] and had glaucoma test done Pulse [...] kg/m2 Body Surface Area Calculated 2.13 m2 :09 Pulse 60 /min Comments: Pattern: Regular Respiration [...] kg/m2 Body Surface Area Calculated 2.18 m2 57-Bzk-607848:15 Pulse 85 /min Comments: Pattern: Regular Respiration [...] kg/m2 Body Surface Area Calculated 2.2 m2 57-Dzv-140637:36 Pulse 67 /min Comments: Pattern: Regular Respiration [...] Cuff Location: Left Arm; Cuff Size: Standard 05-Ozo-502499:16 Temperature 97 f Comments: Method: Tympanic Pulse [...] kg/m2 Body Surface Area Calculated 2.13 m2 :23 Temperature 96 f Comments: Method: Oral Pulse [...] kg/m2 Body Surface Area Calculated 2.12 m2 :44 Pulse 58 /min Comments: Pattern: Regular Respiration [...] kg/m2 Body Surface Area Calculated 2.13 m2 07-Mex-399914:06 Pulse 72 /min Comments: Pattern: Regular Respiration [...] kg/m2 Body Surface Area Calculated 2.1 m2 77-Glo-421301:26 Pulse 80 /min Comments: Pattern: Regular Respiration [...] :19 Comments: before- BP 142/89 Sp02- 98% H-10zwnuu-RU 150/84 Sp02 97% P-60 Temperature 97.9 f [...] 0.00 cm Results Date Description Value Details 80-Ojk-432411:06 CBC W/Diff, Automated Comments: [facility] [address] [place], [address] Absolute Lymph 1.37 {X10_3/ul} (Normal) Range: 0.83-4.51 [...] 4.6-6.2 WBC 7.1 K/mm3 (Normal) Range: 4.4-11.0 32-Olb-529975:06 Comprehensive Metabolic Profil Comments: [facility] [address] [place], [place], [address] GAP 12 (Normal) Range: 5-15 CO2 26.0 [...] A.D.A. criteria.Please note revised GLUCOSE reference range ayhiakxtm73/02/2018. 42-Fnr-138322:06 Uric Acid Comments: [facility] [address] [place], [address] URIC 9.2 mg/dL (Abnormal) Range: 3.5-7.2 Comments: The drugs N-Acetylcysteine and Metamizole may falselydepress this assay. 04-Zkf-193357:39 CBC W/Diff, Automated Comments: [facility] [address] [place], [place], [address](366) Absolute Lymph 1.40 {X10_3/ul} (Normal) Range: 0.83-4.51 [...] 4.6-6.2 WBC 6.4 K/mm3 (Normal) Range: 4.4-11.0 53-Ubb-383918:39 Comprehensive Metabolic Profil Comments: [facility] [address] [place], [place], [address] GAP 8 (Normal) Range: 5-15 CO2 30.0 [...] A.D.A. criteria.Please note revised GLUCOSE reference range nlnublclt80/02/2018. 63-Eij-448179:39 Uric Acid Comments: [facility] [address] [place], [place], [address] URIC 9.1 mg/dL (Abnormal) Range: 3.5-7.2 Comments: The drugs N-Acetylcysteine and Metamizole may falselydepress this assay. 6-Kfz-683946:57 HgA1C , Office (02809) HgA1C , Office 6.9 % (Normal) Range: 4.6 - 7.1 7-Blt-996164:57 Blood Glucose , Office (87415) Blood Glucose , Office 173 (Normal) 52-Own-334732:26 CBC W/Diff, Automated Comments: [facility] [address] [place], [place], [address] Absolute Lymph 1.30 {X10_3/ul} (Normal) Range: 0.83-4.51 [...] 4.6-6.2 WBC 9.0 K/mm3 (Normal) Range: 4.4-11.0 :26 CCP IgG Antibodies Comments: [facility] (refer to report for specific site)refer to report for address and phone number ANTI-CCP 204743 8 {units} (Normal) Range: 0-19 Comments: Negative <20 Weak positive 20 - 39 Moderate positive 40 - 59 Strong positive >59 39-Ozk-733562:26 Comprehensive Metabolic Profil Comments: [facility] [address] [place], [place], [address] GAP 9 (Normal) Range: 5-15 CO2 28.0 [...] A.D.A. criteria.Please note revised GLUCOSE reference range iexwxtfkh82/02/2018. 09-Kme-432981:26 CRP Comments: [facility] [address] [facility] [address] [place], [place], [id number]([phone] C-REACTIVE PROT 8.60 mg/L (Abnormal) Range: 0.0-3.0 Comments: C-Reactive Protein (CRP) provides useful information for thediagnosis, therapy and monitoring of inflammatory processesand associated diseases. For the evaluation of Relative Riskfor Cardiovascular Dise ase, a High Sensitivity CRP (HSCRP)should be ordered. 81-Osd-197783:26 Erythrocyte Sed Rate Comments: [facility] [address] [place], [place], [address] SED RATE 18 mm/h (Normal) Range: 0-20 83-Mep-595428:26 Hep B Surface Antibodies Comments: [facility] (refer to report for specific site)refer to report for address and phone number Hep B Patricia AB Non Reactive (Normal) Comments: Non Reactive: Inconsistent with immunity, less than 10 mIU/mL Reactive: Consistent with immunity, greater than 9.9 mIU/ mL 93-Nvw-295533:26 Hepatitis B Surface Ag Comments: [facility] (refer to report for specific site)refer to report for address and phone number HB SURF AG Negative (Normal) Comments: Performed at: - [facility] [id number] Director: Christopher Molina PhD, Phone: [phone] at: BN - [facility] [id number] Director: Dillon Falk MD, Phone: [phone] 31-Oqt-597789:26 Hepatitis C Antibodies Comments: [facility] (refer to report for specific site)refer to report for address and phone number HEP C AB <0.1 {s/co_ratio} (Normal) Range: 0.0-0.9 Comments: Negative: < 0.8 Indeterminate: 0.8 - 0.9 Positive: > 0.9 The CDC recommends that a positive HCV antibody result be followed up with a HCV Nucleic Acid Amplification test (768613). 15-Ujr-707480:26 Rheumatoid Factor Comments: [facility] [address] [facility]. [place], [place], [address] RHEUMATOID FAC < 10.0 {IU/mL} (Normal) 95-Wsu-208919:26 Uric Acid Comments: [facility] K[address]ui[address] [facility] [place], [place], [address] URIC 10.7 mg/dL (Abnormal) Range: 3.5-7.2 Comments: The drugs N-Acetylcysteine and Metamizole may falselydepress this assay. 44-Ejn-234288:20 CCP ANTIBODY (90696) Comments: PATIENT NOT FASTINGPERFORMED BY: [facility] Fytioc3897 [facility] [id number] BY: IMedExchange[address] [id number] CCP Antibodies IgG/IgA 8 {units} (Normal) Range: 0-19 Comments: Negative <20 Weak positive 20 - 39 Moderate positive 40 - 59 Strong positive >59 56-Tta-649954:20 SED RATE ERYTHROCYTE Comments: PATIENT NOT FASTINGPERFORMED BY: [employer] [address] [place] [address] [id number] BY: [facility]VPN[address] [id number] (50839) Sedimentation Rate-Westergren 32 mm/h (Abnormal) Range: 0-30 56-Kpp-611657:20 C-REACTIVE PROTEIN Comments: PATIENT NOT FASTINGPERFORMED BY: [facility] [facility] Hospital[facility] [place] [id number] BY: [address] [id number] ([address]) C-Reactive Protein, Quant 24.6 mg/L (Abnormal) Range: 0.0-4.9 52-Piw-567360:20 RHEUMATOID FACTOR-QUANT Comments: PATIENT NOT FASTINGPERFORMED BY: [place] [address]75[address] [facility] Hospital[facility] [place] [id number] BY: [address] [id number] (92971) RA Latex Turbid. <10.0 {IU/mL} (Normal) Range: 0.0-13.9 47-Pep-684791:20 THAIS (ANTINUCLEAR ANTIBODY) Comments: PATIENT NOT FASTINGPERFORMED BY: [facility] [facility] Hospitalbl[facility] [place] [id number] BY: [address] [id number] (67484) THAIS Direct Negative (Normal) 9-Hld-531267:59 MAGNESIUM (21402) Comments: PATIENT WAS FASTINGPERFORMED BY: [facility] [facility] Hospital[facility] [place] [id number] Magnesium, Serum 2.1 mg/dL (Normal) Range: 1.6-2.3 0-Bdi-036515:59 PHOSPHORUS (55569) Comments: PATIENT WAS FASTINGPERFORMED BY: [facility] [facility] Hospital[facility] [place] [id number] Phosphorus, Serum 3.1 mg/dL (Normal) Range: 2.5-4.5 8-Qxk-859688:59 PARATHORMONE (09944) Comments: PATIENT WAS FASTINGPERFORMED BY: [facility] [facility] Hospital[facility] [place] [id number] PTH, Intact 67 pg/mL (Abnormal) Range: 15-65 8-Qvu-757529:59 CALCIFEDIOL (39369) Comments: PATIENT WAS FASTINGPERFORMED BY: [facility] [facility] Hospital[facility] [place] [id number] Vitamin D, 25-Hydroxy 21.5 ng/mL (Abnormal) Range: 30.0-100.0 Comments: Vitamin D deficiency has been defined by the Mobile ofMedicine and an Endocrine Society practice guideline as alevel of serum 25-OH vitamin D less than 20 ng/mL (1,2).The Endocrine Society went on to further define vitamin Dinsufficiency as a level between 21 and 29 ng/mL (2).1. IOM (Mobile of Medicine). 2010. Dietary reference intakes for calcium and D. [place]: The National Academies Press.2. Marcelle MF, Justin PURCELL, Amira ELIAS, et al. Evaluation, treatment, and prevention of vitamin D deficiency: an Endocrine Society clinical practice guideline. JCEM. 2010; 96(7):1911-30. 9-Pvn-582467:59 TSH (17489) Comments: PATIENT WAS FASTINGPERFORMED BY: [employer] LabSoldAlbuquerque Indian Health CenterUjsyvc4041 [facility] [id number] TSH 3.200 {uIU/mL} (Normal) Range: 0.450-4.500 4-Usd-406844:59 METABOLIC PANEL, COMPREHENSIVE Comments: PATIENT WAS FASTINGPERFORMED BY: [employer] LabSoldHunterdon Medical CenterKagxer5311 [facility] [id number] (26860) ALT (SGPT) 13 [iU]/L (Normal) Range: 0-44 [...] Glucose, Serum 166 mg/dL (Abnormal) Range: 65-99 4-Awr-416744:59 LIPID PANEL (78601) Comments: PATIENT WAS FASTINGPERFORMED BY: LawPalCaroMont [facility] [id number] LDL/HDL Ratio 2.4 {ratio_units} (Normal) Range: 0.0-3.6 Comments: LDL/HDL Ratio Men Women 1/2 Avg.Risk 1.0 1.5 Av g.Risk 3.6 3.2 2X Avg.Risk 6.2 5.0 3X Avg.Risk 8.0 6.1 LDL Cholesterol Calc 101 mg/dL (Abnormal) Range: 0-99 VLDL Cholesterol Bharat 28 mg/dL (Normal) Range: 5-40 HDL Cholesterol 42 mg/dL (Normal) Triglycerides 139 mg/dL (Normal) Range: 0-149 Cholesterol, Total 171 mg/dL (Normal) Range: 100-199 0-Bjj-491007:59 CBC W/AUTO DIFF WBC (98273) Comments: PATIENT WAS FASTINGPERFORMED BY: [facility]ero6370 [facility] [id number] Immature Grans (Abs) 0.0 {x10E3/uL} (Normal) Range: [...] (Normal) Range: 3.4-10.8 :51 HgA1C , Office (10918) HgA1C , Office 7.0 % (Normal) Range: 4.6 - 7.1 :51 Blood Glucose , Office (62875) Blood Glucose , Office 197 (Normal) 7-Ldn-303759:35 Basic Metabolic Profile (BMP) Comments: 'TROP' Serial specimen #1, #2, #3, or #4: 1[facility] [address] [place], [address] GAP 11 (Normal) Range: 5-15 CO2 25.0 [...] 126 mg/dLsuggests DIABETES MELLITUS per A.D.A. criteria. 7-Emx-833913:35 BNP,B-Type NATRIURETIC PEPTIDE Comments: [facility] Off[address]igs[address] [place], [place], [address] B-TYPE KAE PEP 1319.4 pg/mL (Abnormal) Range: 0-100 :35 CBC W/Diff, Automated Comments: [facility] [address] [place], [place], [address] Absolute Lymph 0.87 {X10_3/ul} (Normal) Range: 0.83-4.51 [...] 4.6-6.2 WBC 12.7 K/mm3 (Abnormal) Range: 4.4-11.0 0-Xad-104289:35 Troponin-I Comments: 'TROP' Serial specimen #1, #2, #3, or #4: [address] [place] [address] [address] [place], [place], [address] TROPONIN-I 0.03 ng/mL (Normal) Comments: TROPONIN-I EXPECTED VALUES <0.05 NEGATIVE 0.06 - 0.59 AT RISK OF IA > OR = 0.60 SUGGEST IA 9-Qcm-408935:35 Microscopic Examination Comments: PATIENT WAS FASTINGPERFORMED BY: swabr70 [facility]erN[facility] [id number] Bacteria Few (Normal) Mucus Threads Present (Normal) Cast Type Hyaline casts (Normal) Casts Present {/lpf} (Abnormal) Epithelial Cells (non renal) None seen {/hpf} (Normal) Range: 0 - 10 RBC 0-2 {/hpf} (Normal) Range: 0 - 2 WBC 0-5 {/hpf} (Normal) Range: 0 - 5 3-Vqs-903447:00 PSA (PROSTATE SPECIFIC Comments: send copy to dr bianchi; PATIENT NOT FASTINGPERFORMED BY: swabr70 [facility] [id number] ANTIGEN) (V76.44) Prostate Specific Ag, 2.1 ng/mL (Normal) Range: 0.0-4.0 Serum Comments: Temo ECLIA methodology. .According to the [place] [employer] Association, Serum PSA shoulddecrease and remain at undetectable levels after radicalprostatectomy. The AUA defines biochemical recurrence as an initialPSA value 0.2 ng/mL or greater followed by a subsequent confirmatoryPSA value 0.2 ng/mL or greater.Values obtained with d ifferent assay methods or kits cannot be usedinterchangeably. Results cannot be interpreted as absolute evidenceof the presence or absence of malignant disease. :35 TSH (57869) Comments: PATIENT WAS FASTINGPERFORMED BY: OpenVPNAlbuquerque Indian Health CenterObbajv1487 [facility] [id number] TSH 4.070 {uIU/mL} (Normal) Range: 0.450-4.500 :35 URINALYSIS, W/ MICRO (47145) Comments: PATIENT WAS FASTINGPERFORMED BY: OpenVPNAlbuquerque Indian Health CenterAdofej6591 [facility] [id number]; can review at next appt Microscopic Examination See below: (Normal) Comments: Microscopic was indicated and was performed. Nitrite, Urine Negative (Normal) Urobilinogen,Semi-Qn 1.0 mg/dL (Normal) Range: 0.2-1.0 Bilirubin Negative (Normal) Occult Blood Negative (Normal) Ketones Negative (Normal) Glucose Negative (Normal) Protein 1+ (Abnormal) WBC Esterase Negative (Normal) Appearance Clear (Normal) Urine-Color Yellow (Normal) pH 7.0 (Normal) Range: 5.0-7.5 Specific [place] 1.013 (Normal) Range: 1.005-1.030 :35 MICROALBUMIN: CREATININE RATIO Comments: PATIENT WAS FASTINGPERFORMED BY: OpenVPNAlbuquerque Indian Health CenterSdzccg5478 [facility] [id number] (85048) AND (11036) Microalb/Creat Ratio 136.1 {mg/g_creat} (Abnormal) Range: 0.0-30.0 Microalbumin, Urine 118.3 ug/mL (Normal) Creatinine, Urine 86.9 mg/dL (Normal) :35 METABOLIC PANEL, COMPREHENSIVE Comments: PATIENT WAS FASTINGPERFORMED BY: PayUsLessRx.comHeartland Behavioral Health ServicesRfprap1882 [facility] [id number] (29139) ALT (SGPT) 10 [iU]/L (Normal) Range: 0-44 [...] Glucose, Serum 126 mg/dL (Abnormal) Range: 65-99 7-Dpi-300660:35 LIPID PANEL (23578) Comments: PATIENT WAS FASTINGPERFORMED BY: [employer] [facility] [id number] LDL/HDL Ratio 2.4 {ratio_units} (Normal) Range: 0.0-3.6 Comments: LDL/HDL Ratio Men Women 1/2 Avg.Risk 1.0 1.5 Av g.Risk 3.6 3.2 2X Avg.Risk 6.2 5.0 3X Avg.Risk 8.0 6.1 LDL Cholesterol Calc 99 mg/dL (Normal) Range: 0-99 VLDL Cholesterol Bharat 25 mg/dL (Normal) Range: 5-40 HDL Cholesterol 41 mg/dL (Normal) Triglycerides 123 mg/dL (Normal) Range: 0-149 Cholesterol, Total 165 mg/dL (Normal) Range: 100-199 7-Try-806388:35 CBC W/AUTO DIFF WBC (23419) Comments: PATIENT WAS FASTINGPERFORMED BY: [employer] [facility] [place] [id number] Immature Grans (Abs) 0.0 {x10E3/uL} (Normal) Range: [...] 4.14-5.80 WBC 6.7 {x10E3/uL} (Normal) Range: 3.4-10.8 8-Ghc-331515:35 CALCIFIDIOL (92099) VIT D 25 Comments: PATIENT WAS FASTINGPERFORMED BY: [facility] Joldbn9790 [facility] [id number] Vitamin D, 25-Hydroxy 37.2 ng/mL (Normal) Range: 30.0-100.0 Comments: Vitamin D deficiency has been defined by the Mobile ofMedicine and an Endocrine Society practice guideline as alevel of serum 25-OH vitamin D less than 20 ng/mL (1,2).The Endocrine Society went on to further define vitamin Dinsufficiency as a level between 21 and 29 ng/mL (2).1. IOM (Mobile of Medicine). 2010. Dietary reference intakes for calcium and D. [place]: The National Academies Press.2. Justin Berkowitz, Amira ELIAS, et al. Evaluation, treatment, and prevention of vitamin D deficiency: an Endocrine Society clinical practice guideline. JCEM. 2010; 96(7):1911-30. 4-Grg-224755:21 HgA1C , Office (91997) HgA1C , Office 6.2 % (Normal) Range: 4.6 - 7.1 :21 Blood Glucose , Office (22409) Blood Glucose , Office 162 (Normal) :56 Microscopic Examination Comments: PATIENT WAS FASTINGPERFORMED BY: [employer] Rvvnir9617 [facility] [id number] Bacteria None seen (Normal) Mucus Threads Present (Normal) Cast Type Hyaline casts (Normal) Casts Present {/lpf} (Abnormal) Epithelial Cells (non renal) 0-10 {/hpf} (Normal) Range: 0 - 10 RBC 0-2 {/hpf} (Normal) Range: 0 - 2 WBC None seen {/hpf} (Normal) Range: 0 - 5 :56 CALCIFIDIOL (54668) VIT D 25 Comments: PATIENT WAS FASTINGPERFORMED BY: [employer] LabSold Mqdext8710 [facility] [id number] Vitamin D, 25-Hydroxy 34.6 ng/mL (Normal) Range: 30.0-100.0 Comments: Vitamin D deficiency has been defined by the Mobile ofMedicine and an Endocrine Society practice guideline as alevel of serum 25-OH vitamin D less than 20 ng/mL (1,2).The Endocrine Society went on to further define vitamin Dinsufficiency as a level between 21 and 29 ng/mL (2).1. IOM (Mobile of Medicine). 2010. Dietary reference intakes for calcium and D. [place]: The National Academies Press.2. Justin Berkowitz, Amira ELIAS, et al. Evaluation, treatment, and prevention of vitamin D deficiency: an Endocrine Society clinical practice guideline. JCEM. 2010; 96(7):1911-30. 3-Apo-004207:56 TSH (93965) Comments: PATIENT WAS FASTINGPERFORMED BY: OpenVPNAlbuquerque Indian Health CenterXbisrh3795 [facility] [id number] TSH 5.530 {uIU/mL} (Abnormal) Range: 0.450-4.500 0-Fgx-253726:56 URINALYSIS, W/ MICRO (97613) Comments: PATIENT WAS FASTINGPERFORMED BY: [employer] Krkxda7549 [facility] [id number] Microscopic Examination See below: (Normal) Comments: Microscopic was indicated and was performed. Microscopic Examination MICRON (Normal) Comments: Microscopic follows if indicated. Nitrite, Urine Negative (Normal) Urobilinogen,Semi-Qn 1.0 mg/dL (Normal) Range: 0.2-1.0 Bilirubin Negative (Normal) Occult Blood Negative (Normal) Ketones Negative (Normal) Glucose Negative (Normal) Protein Negative (Normal) WBC Esterase Negative (Normal) Appearance Clear (Normal) Urine-Color Yellow (Normal) pH 7.0 (Normal) Range: 5.0-7.5 Specific [place] 1.009 (Normal) Range: 1.005-1.030 9-Tln-467680:56 MICROALBUMIN: CREATININE RATIO Comments: PATIENT WAS FASTINGPERFORMED BY: [employer] Zhxcye8695 [facility] [id number] (97975) AND (95278) Microalb/Creat Ratio <12.1 {mg/g_creat} (Normal) Range: 0.0-30.0 Microalbumin, Urine <3.0 ug/mL (Normal) Creatinine, Urine 24.7 mg/dL (Normal) :56 METABOLIC PANEL, COMPREHENSIVE Comments: PATIENT WAS FASTINGPERFORMED BY: OpenV[employer] Five9 [facility] [id number] (04590) ALT (SGPT) 8 [iU]/L (Normal) Range: 0-44 [...] Glucose, Serum 109 mg/dL (Abnormal) Range: 65-99 3-Rpt-273120:56 CBC W/AUTO DIFF WBC (47815) Comments: PATIENT WAS FASTINGPERFORMED BY: LabCoHunterdon Medical CenterGmibky0838 [facility] [id number] Immature Grans (Abs) 0.0 {x10E3/uL} (Normal) Range: [...] 4.14-5.80 WBC 6.9 {x10E3/uL} (Normal) Range: 3.4-10.8 3-Nsg-934696:56 LIPID PANEL (11759) Comments: PATIENT WAS FASTINGPERFORMED BY: LabVeterans Affairs Medical Center6370 [facility] [id number] LDL/HDL Ratio 2.3 {ratio_units} (Normal) Range: 0.0-3.6 [...] (Normal) Range: 100-199 :36 HgA1C , Office (39446) HgA1C , Office 6.4 % (Normal) Range: 4.6 - 7.1 :36 Blood Glucose , Office (24686) Blood Glucose , Office 129 (Normal) :20 Blood Glucose , Office (13793) Blood Glucose , Office 111 (Normal) 82-Rer-846362:20 HgA1C , Office (97392) HgA1C , Office 6.4 % (Normal) Range: 4.6 - 7.1 :25 CBC W/AUTO DIFF WBC (99918) Comments: PATIENT NOT FASTINGPERFORMED BY: LabCoHunterdon Medical CenterRbvteq6690 [facility] [id number] Immature Grans (Abs) 0.0 {x10E3/uL} (Normal) Range: [...] 4.14-5.80 WBC 6.0 {x10E3/uL} (Normal) Range: 3.4-10.8 75-Dyf-935426:25 METABOLIC PANEL, COMPREHENSIVE Comments: PATIENT NOT FASTINGPERFORMED BY: TERRIE [facility] Ushick4448 [facility] [id number] (45862) ALT (SGPT) 13 [iU]/L (Normal) Range: 0-44 [...] Glucose, Serum 158 mg/dL (Abnormal) Range: 65-99 3-Grg-286534:03 Basic Metabolic Profile (BMP) Comments: 'TROP' Serial specimen #1, #2, #3, or #4: 1[facility] [address] [place], [address] GAP 6 (Normal) Range: 5-15 [...] 126 mg/dLsuggests DIABETES MELLITUS per A.D.A. criteria. 4-Ubr-358827:03 BNP,B-Type NATRIURETIC PEPTIDE Comments: [facility] [address] [place], [address] B-TYPE KAE PEP 732.8 pg/mL (Abnormal) Range: 0-100 4-Aur-237340:03 CBC W/Diff, Automated Comments: [facility] [address] [place], [address] Absolute Lymph 0.93 {X10_3/ul} (Normal) [...] 4.6-6.2 WBC 6.8 K/mm3 (Normal) Range: 4.4-11.0 0-Gau-365506:03 Liver Profile Comments: 'TROP' Serial specimen #1, #2, #3, or #4: [facility] [address]orbpa[address] [place], [address] D BILI 0.39 mg/dL (Abnormal) Range: 0.00-0.30 T BILI 1.40 mg/dL (Abnormal) Range: 0.20-1.00 ALT 16 U/L (Normal) Range: 12-78 ALK P 90 U/L (Normal) Range: 50-136 AST 18 U/L (Normal) Range: 15-37 GLOB 3.7 g/dL (Abnormal) Range: 2.3-3.5 ALB 3.4 g/dL (Normal) Range: 3.4-5.0 T PROT 7.1 g/dL (Normal) Range: 6.4-8.2 5-Kzp-422413:03 Troponin-I Comments: 'TROP' Serial specimen #1, #2, #3, or #4: 1[facility] Mzznmndrid[address] [facility] [address] [place], [place], [address] TROPONIN-I < 0.02 ng/mL (Normal) Comments: TROPONIN-I EXPECTED VALUES <0.05 NEGATIVE 0.06 - 0.59 AT RISK OF IA > OR = 0.60 SUGGEST IA 0-Svc-895426:07 Urinalysis, Office (68080) UA - LEUKOCYTE ESTERASE Negative (Normal) UA - NITRITE Negative (Normal) URINE UROBILINGN KATELIN TIMED 4 mg/dL (Normal) UA - PROTEIN 30 mg/dL (Normal) UA - PH 7 (Normal) UA - BLOOD Negative (Normal) UA - SPECIFIC GRAVITY 1.020 (Normal) UA - KETONES Negative mg/dL (Normal) UA - BILIRUBIN Negative (Normal) UA - GLUCOSE Negative (Normal) 87-Vka-319617:59 HgA1C , Office (64641) HgA1C , Office 6.3 % (Normal) Range: 4.6 - 7.1 93-Vtp-489806:59 Blood Glucose , Office (00382) Blood Glucose , Office 177 (Normal) 03-Eey-91242:44 Basic Metabolic Profile (BMP) Comments: [facility] Amnolhadmc[address] [facility] [address] [place], [place], [address] GAP 7 (Normal) Range: 5-15 CO2 32.0 [...] 126 mg/dLsuggests DIABETES MELLITUS per A.D.A. criteria. 1-Hgz-133732:32 Microscopic Examination Comments: PATIENT NOT FASTINGPERFORMED BY: LawPalCaroMont [facility] Medical Center [id number] Bacteria None seen (Normal) Mucus Threads Present (Normal) Cast Type Hyaline casts (Normal) Casts Present {/lpf} (Abnormal) Epithelial Cells (non renal) 0-10 {/hpf} (Normal) Range: 0 - 10 RBC 0-2 {/hpf} (Normal) Range: 0 - 2 WBC 0-5 {/hpf} (Normal) Range: 0 - 5 :32 CALCIFIDIOL (97394) VIT D 25 Comments: PATIENT NOT FASTINGPERFORMED BY: [employer] Uulzwz5070 [facility] [id number] Vitamin D, 25-Hydroxy 34.1 ng/mL (Normal) Range: 30.0-100.0 Comments: Vitamin D deficiency has been defined by the Mobile ofMedicine and an Endocrine Society practice guideline as alevel of serum 25-OH vitamin D less than 20 ng/mL (1,2).The Endocrine Society went on to further define vitamin Dinsufficiency as a level between 21 and 29 ng/mL (2).1. IOM (Mobile of Medicine). 2010. Dietary reference intakes for calcium and D. [place]: The National Academies Press.2. Marcelle MF, Justin NC, Amira ELIAS, et al. Evaluation, treatment, and prevention of vitamin D deficiency: an Endocrine Society clinical practice guideline. JCEM. 2010; 96(7):1911-30. :32 TSH (42127) Comments: PATIENT NOT FASTINGPERFORMED BY: [facility]6370 [facility] [id number] TSH 5.190 {uIU/mL} (Abnormal) Range: 0.450-4.500 5-Css-648269:32 URINALYSIS, W/ MICRO (83511) Comments: PATIENT NOT FASTINGPERFORMED BY: [facility]6370 [facility] [id number] Microscopic Examination See below: (Normal) Comments: Microscopic was indicated and was performed. Microscopic Examination MICRON (Normal) Comments: Microscopic follows if indicated. Nitrite, Urine Negative (Normal) Urobilinogen,Semi-Qn 1.0 mg/dL (Normal) Range: 0.2-1.0 Bilirubin Negative (Normal) Occult Blood Negative (Normal) Ketones Negative (Normal) Glucose Negative (Normal) Protein Trace (Normal) WBC Esterase Negative (Normal) Appearance Clear (Normal) Urine-Color Yellow (Normal) pH 6.5 (Normal) Range: 5.0-7.5 Specific [place] 1.019 (Normal) Range: 1.005-1.030 2-Fxm-267711:32 MICROALBUMIN: CREATININE RATIO Comments: PATIENT NOT FASTINGPERFORMED BY: [place] [id number] [facility] [id number] (68124) AND (79427) Microalb/Creat Ratio 43.8 {mg/g_creat} (Abnormal) Range: 0.0-30.0 Microalbumin, Urine 51.0 ug/mL (Normal) Creatinine, Urine 116.5 mg/dL (Normal) 8-Dac-155300:32 METABOLIC PANEL, COMPREHENSIVE Comments: PATIENT NOT FASTINGPERFORMED BY: [facility]6370 [facility] [id number] (52736) ALT (SGPT) 13 [iU]/L (Normal) Range: 0-44 [...] Glucose, Serum 122 mg/dL (Abnormal) Range: 65-99 3-Oqm-647690:32 LIPID PANEL (05420) Comments: PATIENT NOT FASTINGPERFORMED BY: [employer]ero6370 [facility] [id number] LDL/HDL Ratio 1.9 {ratio_units} (Normal) Range: 0.0-3.6 [...] Cholesterol, Total 145 mg/dL (Normal) Range: 100-199 3-Qht-421719:32 CBC W/AUTO DIFF WBC Comments: PATIENT NOT FASTINGPERFORMED BY: swabr70 [facility] [id number] Information: [id number] (05252) Immature Grans (Abs) 0.0 {x10E3/uL} (Normal) Range: [...] 4.14-5.80 WBC 6.5 {x10E3/uL} (Normal) Range: 3.4-10.8 5-Igu-362598:32 PSA (PROSTATE SPECIFIC Comments: send copy to dr mast; PATIENT NOT FASTINGPERFORMED BY: LabVeterans Affairs [facility] Center6370 [facility] [id number] ANTIGEN) (V76.44) Prostate Specific Ag, 2.1 ng/mL (Normal) Range: 0.0-4.0 Serum Comments: AppsFlyerIA methodology. .According to the [place] [employer], Serum PSA shoulddecrease and remain at undetectable levels after radicalprostatectomy. The AUA defines biochemical recurrence as an initialPSA value 0.2 ng/mL or greater followed by a subsequent confirmatoryPSA value 0.2 ng/mL or greater.Values obtained with d ifferent assay methods or kits cannot be usedinterchangeably. Results cannot be interpreted as absolute evidenceof the presence or absence of malignant disease. 48-Yas-343494:20 Metabolic Panel, Basic Comments: PATIENT NOT FASTINGPERFORMED BY: LabCoHunterdon Medical CenterXcycwu4142 [facility] [id number] Information: [id number] (56551) Calcium, Serum 9.0 mg/dL (Normal) Range: 8.6-10.2 [...] Glucose, Serum 90 mg/dL (Normal) Range: 65-99 5-Leg-332537:26 BNP,B-Type NATRIURETIC PEPTIDE Comments: [facility] [address] [facility] [place], [address] B-TYPE KAE PEP 247.5 pg/mL (Abnormal) Range: 0-100 2-Fir-156274:26 CBC W/Diff, Automated Comments: [facility] [address]ulfxcy[address] [place], [address] Absolute Lymph 0.87 {X10_3/ul} (Normal) [...] 4.6-6.2 WBC 8.2 K/mm3 (Normal) Range: 4.4-11.0 6-Qdh-504772:08 Basic Metabolic Profile (BMP) Comments: [facility] [address] [place], [address] GAP 11 (Normal) Range: 5-15 CO2 30.0 [...] <126 mg/dLsuggests IMPAIRED HOMEOSTASIS per A.D.A. criteria. 8-Ipd-658629:00 Basic Metabolic Profile (BMP) Comments: [facility] [address]ph[address] [place], [place], [id number]) GAP 12 (Normal) Range: 5-15 CO2 26.0 [...] 126 mg/dLsuggests DIABETES MELLITUS per A.D.A. criteria. 96-Vbs-498847:33 Basic Metabolic Profile (BMP) Comments: [facility] [address]rg[address] [place], [place], [id number](054) GAP 5 (Normal) Range: 5-15 CO2 26.0 [...] 126 mg/dLsuggests DIABETES MELLITUS per A.D.A. criteria. 48-Kvj-599743:07 Basic Metabolic Profile (BMP) Comments: [facility] [address] [facility] [place], [place], [id number] GAP 0 (Abnormal) Range: 5-15 CO2 30.0 [...] 7-18 GLU 101 mg/dL (Normal) Range: 70-110 49-Uyv-454840:07 BNP,B-Type NATRIURETIC PEPTIDE Comments: [facility] [address] [place], [place], [id number] B-TYPE KAE PEP 560.9 pg/mL (Abnormal) Range: 0-100 22-Vcz-513447:04 ALBUMIN SERUM (14271) Comments: PATIENT NOT FASTINGPERFORMED BY: LabCoHunterdon Medical CenterDikisi1800 [facility] [id number] Albumin, Serum 3.4 g/dL (Abnormal) Range: 3.5-4.8 49-Oym-326076:04 BASIC METABOLIC w/Ionized Comments: PATIENT NOT FASTINGPERFORMED BY: LabCoHunterdon Medical CenterJqsypf3322 [facility] [id number] Information: [id number] Ca++ (53742) Calcium, Serum 8.5 mg/dL (Abnormal) Range: 8.6-10.2 [...] Glucose, Serum 171 mg/dL (Abnormal) Range: 65-99 9-Ylh-468325:34 Calcium Ionized Comments: [facility] (refer to report for specific site)refer to report for address and phone [place] [address] Test not performed (Normal) Comments: Patient has been credited for testing not performed. Pleasehave patient return if testing is still required. 0-Whg-939773:36 Anion Gap Comments: [facility] [address] [place], [place], [address] GAP 3 (Abnormal) Range: 5-15 2-Ljo-676547:36 BUN 18 mg/dL (Normal) Comments: [facility] [address] [place], [place], [address] Range: 7-18 8-Gyy-131890:36 BUN/Creat Ratio Comments: [facility] [address] [place], [place], [address](239) BUN/CRE 11.0 {RATIO} (Normal) Range: 10-20 0-Wdh-224180:36 Carbon Dioxide Comments: [address] [place], [id number] CO2 30.0 mmol/L (Normal) Range: 21.0-32.0 6-Lat-925574:36 Chloride Comments: [address] [place], [address] CL 109 mmol/L (Abnormal) Range: 98-107 :36 Creatinine, Serum Comments: [address] [place] [address] CREAT,SERUM 1.64 mg/dL (Abnormal) Range: 0.70-1.30 Comments: The validity of the calculated GFR AND GFRAA in patients over70 years has not been determined. Clinical correlation isessential. :36 Glucose Comments: [address] [place], [phone] GLU 157 mg/dL (Abnormal) Range: 70-110 Comments: Fasting Glucose result greater than or equal to 126 mg/dLsuggests DIABETES MELLITUS per A.D.A. criteria. :36 Potassium Comments: [address] [place], [id number] K 4.3 mmol/L (Normal) Range: 3.5-5.1 4-Bwl-573003:36 Sodium Level Comments: [address] [place], [id number] NA 142 mmol/L (Normal) Range: 136-145 72-Tsp-860468:36 Urinalysis, Office (32500) UA - LEUKOCYTE ESTERASE Negative (Normal) UA - NITRITE Negative (Normal) URINE UROBILINGN KATELIN TIMED Normal mg/dL (Normal) UA - PROTEIN Negative mg/dL (Normal) UA - PH 6.0 (Normal) Comments: 5.5 UA - BLOOD Hemolyzed Trace (Normal) UA - SPECIFIC GRAVITY 1.005 (Normal) UA - KETONES Negative mg/dL (Normal) UA - BILIRUBIN Negative (Normal) UA - GLUCOSE Negative (Normal) 01-Wgf-085754:06 Metabolic Panel, Basic Comments: PATIENT NOT FASTINGPERFORMED BY: PayUsLessRx.comFrederick Ville [id number] [facility] [id number] Information: [id number]; will review at next appt. (14099) Calcium, Serum 9.3 mg/dL (Normal) Range: 8.6-10.2 [...] Glucose, Serum 111 mg/dL (Abnormal) Range: 65-99 23-Doo-337001:07 URINE DAWIT CULTURE-IDENTIFICATN Comments: PATIENT NOT FASTINGPERFORMED BY: PayUsLessRx.comVeterans Affairs Medical Center6370 [facility] [id number] (56598) Result 1 MUG (Normal) Comments: Mixed urogenital flora1,000 Colonies/mL Urine Culture,Comprehensive Final report (Normal) 54-Cmc-137223:07 URINALYSIS (15046) Comments: PATIENT NOT FASTINGPERFORMED BY: [place] [id number] [facility] [id number] Information: [id number] Microscopic Examination MICNIP (Normal) Comments: Microscopic not indicated and not performed. Nitrite, Urine Negative (Normal) Urobilinogen,Semi-Qn 0.2 mg/dL (Normal) Range: 0.2-1.0 Bilirubin Negative (Normal) Occult Blood Negative (Normal) Ketones Negative (Normal) Glucose Negative (Normal) Protein Negative (Normal) WBC Esterase Negative (Normal) Appearance Clear (Normal) Urine-Color Yellow (Normal) pH 6.0 (Normal) Range: 5.0-7.5 Specific [place] 1.010 (Normal) Range: 1.005-1.030 3-Bxv-543032:02 Basic Metabolic Profile (BMP) Comments: [facility] [address] [place], [place], [address] GAP 9 (Normal) Range: 5-15 CO2 33.0 [...] 126 mg/dLsuggests DIABETES MELLITUS per A.D.A. criteria. 2-Wcu-353209:02 BNP,B-Type NATRIURETIC PEPTIDE Comments: [facility] [address] [place], [place], [phone] B-TYPE KAE PEP 202.1 pg/mL (Abnormal) Range: 0-100 53-Jqf-417955:55 BNP,B-Type NATRIURETIC PEPTIDE Comments: [facility] [address] [place], [place], [address] B-TYPE KAE PEP 288.3 pg/mL (Abnormal) Range: 0-100 34-Pji-366969:48 BNP,B-Type NATRIURETIC PEPTIDE Comments: [facility] [address] [place], [place], [address] B-TYPE KAE PEP 231.4 pg/mL (Abnormal) Range: 0-100 87-Wya-503250:33 ASSAY, NATIURETIC PEPTIDE Comments: PATIENT NOT FASTINGPERFORMED BY: [facility] [address]wa[address] [place] [id number] Information: [id number] (01148) B-Type Natriuretic Peptide 296.5 pg/mL (Abnormal) Range: 0.0-100.0 10-Zzo-422528:15 Basic Metabolic Profile (BMP) Comments: Serial Specimen #1, #2 or #3? 1'TROP' Serial specimen #1, #2, #3, or #4: 1[facility] [address] [place], [address] GAP 7 (Normal) Range: 5-15 CO2 24.0 [...] 126 mg/dLsuggests DIABETES MELLITUS per A.D.A. criteria. 53-Mlq-902964:15 BNP,B-Type NATRIURETIC PEPTIDE Comments: [facility] [address] [place], [address] B-TYPE KAE PEP 200.1 pg/mL (Abnormal) Range: 0-100 84-Ujp-919383:15 CBC W/Diff, Automated Comments: [facility] [address] [place], [address] Absolute Lymph 1.42 {X10_3/ul} (Normal) Range: 0.83-4.51 [...] 4.6-6.2 WBC 7.6 K/mm3 (Normal) Range: 4.4-11.0 58-Tdx-717395:15 CK-MB Quantitative and Index Comments: Serial Specimen #1, #2 or #3? 1'TROP' Serial specimen #1, #2, #3, or #4: [facility] [address] [place], [address] CKRI 1.6 % (Abnormal) Range: 0.0-1.4 Comments: RELATIVE INDEX >1.5% IS PRESUMPTIVELY POSITIVE CPKMB 3.3 ng/mL (Normal) Range: 0.0-5.0 Comments: CK-MB and RI Interpretation MB Relative Index Non-AMI <or= 5 NA Indeterminate > 5 <or= 4 AMI > 5 > 4 CPK TOTAL 208 U/L (Normal) Range: 39-308 47-Xaz-482428:15 Troponin-I Comments: Serial Specimen #1, #2 or #3? 1'TROP' Serial specimen #1, #2, #3, or #4: [facility] [address]hma[address] [place], [address] TROPONIN-I 0.03 ng/mL (Normal) Comments: TROPONIN-I EXPECTED VALUES <0.05 NEGATIVE 0.06 - 0.59 AT RISK OF IA > OR = 0.60 SUGGEST IA 77-Xpd-010795:06 HgA1C , Office (10590) HgA1C , Office 8.0 % (Abnormal) Range: 4.6 - 7.1 09-Cww-464589:06 Blood Glucose , Office (51862) Blood Glucose , Office 143 (Normal) 8-Rpo-376049:12 BUN 15 mg/dL (Normal) Comments: Test performed at:[facility] [address] [place] [address] Range: 7-18 5-Lgt-959287:12 Partial Thromboplast Time Comments: Test performed at:[facility] [address] [place] [address] PTT 25.9 s (Normal) Range: 24.1-36.2 0-Zwa-146449:12 Platelet Count Comments: Test performed at:[facility] [address] [place] [address] PLT 243 K/mm3 (Normal) Range: 150-450 9-Bhf-073151:12 Prothrombin Time w/INR Comments: Test performed at:[facility] [address] [place] [address] INR 0.9 (Normal) PROTIME 12.3 s (Normal) Range: 11.7-14.9 9-Jho-656250:12 Serum Creatinine AND GFR Comments: Test performed at:[facility] [address] [place], [place] [address] CREAT,SERUM 1.3 mg/dL (Normal) Range: 0.8-1.3 59-Akw-228022:09 HgA1C , Office (57843) HgA1C , Office 7.1 % (Normal) Range: 4.6 - 7.1 48-Ryg-514276:09 Blood Glucose , Office (83829) Blood Glucose , Office 141 (Normal) :43 BUN 14 mg/dL (Normal) Range: 7-18 :43 CRE CREAT 1.1 mg/dL (Normal) Range: 0.8-1.3 :43 PLT 184 K/mm3 (Normal) Range: 150-450 :43 PT INR 0.9 (Normal) PTP 12.4 s (Normal) Range: 11.7-14.9 Comments: Please note revised PROTIME reference range mxuncqnhb19/14/15. :43 PTT 26.3 s (Normal) Range: 24.1-36.2 15-Prq-672200:25 HgA1C , Office (33654) HgA1C , Office 6.7 % (Normal) Range: 4.6 - 7.1 42-Vmw-628811:25 Blood Glucose , Office (25024) Blood Glucose , Office 140 (Normal) 29-Sxg-176838:25 Microscopic Examination Comments: PATIENT WAS FASTINGPERFORMED BY: swabr70 MadisonMomentCamCaroMont [facility] [id number] Bacteria None seen (Normal) Mucus Threads Present (Normal) Epithelial Cells (non renal) None seen {/hpf} (Normal) Range: 0 - 10 RBC 0-3 {/hpf} (Normal) Range: 0 - 3 Comments: Effective September 04, 2013 the reference interval for RBC will be changing to: 0 - 2 /hpf. WBC 0-5 {/hpf} (Normal) Range: 0 - 5 10-Nkp-497721:47 LIPID PANEL (34258) Comments: PATIENT WAS FASTINGPERFORMED BY: [employer] [facility] [id number] LDL/HDL Ratio 2.7 {ratio_units} (Normal) Range: 0.0-3.6 LDL Cholesterol Calc 90 mg/dL (Normal) Range: 0-99 HDL Cholesterol 33 mg/dL (Abnormal) Comments: According to ATP-III Guidelines, HDL-C >59 mg/dL is considered anegative risk factor for CHD. VLDL Cholesterol Bharat 27 mg/dL (Normal) Range: 5-40 Triglycerides 133 mg/dL (Normal) Range: 0-149 Cholesterol, Total 150 mg/dL (Normal) Range: 100-199 21-Ezs-125273:47 Vitamin D Hydroxy (23191) Comments: PATIENT WAS FASTINGPERFORMED BY: [employer] Twlojg7828 [facility] [id number] Vitamin D, 25-Hydroxy 28.7 ng/mL (Abnormal) Range: 30.0-100.0 Comments: Vitamin D deficiency has been defined by the Mobile ofFisher-Titus Medical Centercine and an Endocrine Society practice guideline as alevel of serum 25-OH vitamin D less than 20 ng/mL (1,2).The Endocrine Society went on to further define vitamin Dinsufficiency as a level between 21 and 29 ng/mL (2).1. IOM (Mobile of Medicine). 2010. Dietary reference intakes for calcium and D. [place]: The National Academies Press.2. Marcelle MF, Justin PURCELL, Amira ELIAS, et al. Evaluation, treatment, and prevention of vitamin D deficiency: an Endocrine Society clinical practice guideline. JCEM. 2010; 96(7):1911-30.; ADDENDA: appt 21-Aug-201311:47 TSH (42985) Comments: PATIENT WAS FASTINGPERFORMED BY: [facility] Qjgkca4537 [facility] [id number] TSH 1.700 {uIU/mL} (Normal) Range: 0.450-4.500 24-Fdd-453838:47 URINALYSIS, W/ MICRO (16658) Comments: PATIENT WAS FASTINGPERFORMED BY: [facility] Ynmtmf1105 [facility] [id number] Microscopic Examination See below: (Normal) Microscopic Examination MICRON (Normal) Comments: Microscopic follows if indicated. Nitrite, Urine Negative (Normal) Urobilinogen,Semi-Qn 1.0 mg/dL (Normal) Range: 0.0-1.9 Bilirubin Negative (Normal) Occult Blood Negative (Normal) Ketones Negative (Normal) Glucose Negative (Normal) Protein Negative (Normal) WBC Esterase Negative (Normal) Appearance Clear (Normal) Urine-Color Yellow (Normal) pH 6.0 (Normal) Range: 5.0-7.5 Specific [place] 1.019 (Normal) Range: 1.005-1.030 23-Swb-836497:47 MICROALBUMIN: CREATININE RATIO Comments: PATIENT WAS FASTINGPERFORMED BY: weave energyAlbuquerque Indian Health CenterZvuuhu[address] [facility] HospitalEncisionCaroMont [facility] Center [id number] (13096) AND (45243) Microalb/Creat Ratio 5.9 {mg/g_creat} (Normal) Range: 0.0-30.0 Microalbumin, Urine 10.0 ug/mL (Normal) Range: 0.0-17.0 Creatinine, Urine 169.3 mg/dL (Normal) Range: 22.0-328.0 09-Kmg-497433:47 METABOLIC PANEL, COMPREHENSIVE Comments: PATIENT WAS FASTINGPERFORMED BY: weave energyAlbuquerque Indian Health CenterWphzgj5077 [address] [facility] [id number] (15552) ALT (SGPT) 13 [iU]/L (Normal) Range: 0-44 [...] Glucose, Serum 118 mg/dL (Abnormal) Range: 65-99 95-Sot-694640:47 CBC WITH MANUAL DIFF Comments: PATIENT WAS FASTINGPERFORMED BY: LabCoHunterdon Medical CenterLwoocv2078 [facility] [id number] Information: [id number] (50324) Immature Grans (Abs) 0.0 {x10E3/uL} (Normal) Range: [...] (Normal) Range: 3.4-10.8 :38 HgA1C , Office (77223) HgA1C , Office 6.2 % (Normal) Range: 4.6 - 7.1 36-Sai-819935:38 Blood Glucose , Office (75874) Blood Glucose , Office 119 (Normal) :28 HgA1C , Office (92297) HgA1C , Office 6.7 % (Normal) Range: 4.6 - 7.1 59-Slq-112610:28 Blood Glucose , Office (97558) Blood Glucose , Office 131 (Normal) 28-Woi-943593:08 MICROALBUMIN: CREATININE RATIO Comments: PATIENT WAS FASTINGPERFORMED BY: swabr70 COCCCaroMont Regional Medical Center [id number] (61655) AND (43822) Microalb/Creat Ratio 14.3 {mg/g_creat} (Normal) Range: 0.0-30.0 Microalbumin, Urine 24.5 ug/mL (Abnormal) Range: 0.0-17.0 Creatinine, Urine 171.3 mg/dL (Normal) Range: 22.0-328.0 24-Iby-832233:46 Microscopic Examination Comments: PATIENT NOT FASTINGPERFORMED BY: swabr70 [facility] [id number] Bacteria Few (Normal) Mucus Threads Present (Normal) Epithelial Cells (non renal) 0-10 {/hpf} (Normal) Range: 0 - 10 RBC 0-3 {/hpf} (Normal) Range: 0 - 3 WBC 0-5 {/hpf} (Normal) Range: 0 - 5 :46 TSH (02409) Comments: PATIENT NOT FASTINGPERFORMED BY: swabr70 [facility] [id number] TSH 2.720 {uIU/mL} (Normal) Range: 0.450-4.500 :46 URINALYSIS, W/ MICRO (49469) Comments: PATIENT NOT FASTINGPERFORMED BY: PayUsLessRx.comVeterans Affairs Medical Center6370 [facility] [id number] Microscopic Examination See below: (Normal) Microscopic Examination MICRON (Normal) Comments: Microscopic follows if indicated. Nitrite, Urine Negative (Normal) Urobilinogen,Semi-Qn 1.0 mg/dL (Normal) Range: 0.0-1.9 Bilirubin Negative (Normal) Occult Blood Negative (Normal) Ketones Negative (Normal) Glucose Negative (Normal) Protein Negative (Normal) WBC Esterase Negative (Normal) Appearance Clear (Normal) Urine-Color Yellow (Normal) pH 6.0 (Normal) Range: 5.0-7.5 Specific [place] 1.015 (Normal) Range: 1.005-1.030 :46 MICROALBUMIN: CREATININE RATIO Comments: PATIENT NOT FASTINGPERFORMED BY: PayUsLessRx.comVeterans Affairs Medical Center6370 [facility] [id number] (54218) AND (12140) Microalb/Creat Ratio 10.0 {mg/g_creat} (Normal) Range: 0.0-30.0 Microalbumin, Urine 12.6 ug/mL (Normal) Range: 0.0-17.0 Creatinine, Urine 125.8 mg/dL (Normal) Range: 22.0-328.0 :46 METABOLIC PANEL, COMPREHENSIVE Comments: PATIENT NOT FASTINGPERFORMED BY: PayUsLessRx.comVeterans Affairs Medical Center6370 [facility] [id number] (33660) ALT (SGPT) 18 [iU]/L (Normal) Range: 0-44 [...] Glucose, Serum 116 mg/dL (Abnormal) Range: 65-99 31-Hhz-648627:46 LIPID PANEL (09598) Comments: PATIENT NOT FASTINGPERFORMED BY: [employer] [facility] [id number] LDL/HDL Ratio 2.1 {ratio_units} (Normal) Range: 0.0-3.6 LDL Cholesterol Calc 94 mg/dL (Normal) Range: 0-99 VLDL Cholesterol Bharat 31 mg/dL (Normal) Range: 5-40 HDL Cholesterol 44 mg/dL (Normal) Comments: According to ATP-III Guidelines, HDL-C >59 mg/dL is considered anegative risk factor for CHD. Triglycerides 155 mg/dL (Abnormal) Range: 0-149 Cholesterol, Total 169 mg/dL (Normal) Range: 100-199 86-Tns-398794:46 CBC WITH MANUAL DIFF Comments: PATIENT NOT FASTINGPERFORMED BY: weave energyHunterdon Medical CenterSbxlbf0212 [facility] [id number] Information: [id number] (84862) Immature Grans (Abs) 0.0 {x10E3/uL} (Normal) Range: [...] (Normal) Range: 4.0-10.5 :38 HgA1C , Office (38617) HgA1C , Office 6.9 % (Normal) Range: 4.6 - 7.1 :38 Blood Glucose , Office (67744) Blood Glucose , Office 124 (Normal) 32-Vtu-612364:08 HgA1C , Office (06304) HgA1C , Office 6.5 % (Normal) Range: 4.6 - 7.1 :10 Blood Glucose , Office (85482) Blood Glucose , Office 129 (Normal) 10-Gbs-628434:08 LIPID PANEL (80707) Comments: PATIENT WAS FASTINGPERFORMED BY: Lab79 Underwood StreetDublin [place] [id number] LDL/HDL Ratio 2.2 {ratio_units} (Normal) Range: 0.0-3.6 LDL Cholesterol Calc 97 mg/dL (Normal) Range: 0-99 VLDL Cholesterol Bharat 28 mg/dL (Normal) Range: 5-40 HDL Cholesterol 45 mg/dL (Normal) Comments: According to ATP-III Guidelines, HDL-C >59 mg/dL is considered anegative risk factor for CHD. Triglycerides 140 mg/dL (Normal) Range: 0-149 Cholesterol, Total 170 mg/dL (Normal) Range: 100-199 07-Roh-852940:08 HEPATIC FUNCTION PANEL Comments: PATIENT WAS FASTINGPERFORMED BY: TERRIE [facility]6370 [facility] [id number] Information: [id number] (56082) ALT (SGPT) 25 [iU]/L (Normal) Range: 0-55 [...] (Normal) Range: 6.0-8.5 :55 HgA1C , Office (69756) HgA1C , Office 6.9 % (Normal) Range: 4.6 - 7.1 :55 Blood Glucose , Office (86275) Blood Glucose , Office 126 (Normal) 40-Qwp-704398:07 Hemoglobin Glyclated (HGB Comments: PATIENT NOT FASTINGPERFORMED BY: [facility]6370 [facility] [id number] Information: [id number] A1C) (99696) Hemoglobin A1c 6.8 % (Abnormal) Range: 4.8-5.6 Comments: . Increased risk for diabetes: 5.7 - 6.4 Diabetes: >6.4 Glycemic control for adults with diabetes: <7.0 :58 Microscopic Examination Comments: PATIENT WAS FASTINGPERFORMED BY: [facility] Tnusqm6862 [facility] [id number] Bacteria Few (Normal) Mucus Threads Present (Normal) Epithelial Cells (non renal) None seen {/hpf} (Normal) Range: 0 - 10 RBC 0-3 {/hpf} (Normal) Range: 0 - 3 WBC 0-5 {/hpf} (Normal) Range: 0 - 5 :58 PSA Total+% Free Comments: PATIENT WAS FASTINGPERFORMED BY: [facility] Jfefcj4472 [facility] [id number] Information: [id number] % Free PSA 16.3 % (Normal) Comments: [...] Comments: Temo ECLIA methodology. .According to the [place] [employer], Serum PSA shoulddecrease and remain [...] WAR (Normal) Comments: PATIENT WAS FASTINGPERFORMED BY: [employer] Hfvhsy5816 [facility] [id number] 3:58 Comments: Written Authorization Received.Authorization received from DR. STYLES [id number] by Machelle Trejo 56-Kux-956368:07 ASSAY, PSA, FREE (22924) Comments: PATIENT NOT FASTINGPERFORMED BY: [employer] Ebczlz8134 [facility] [id number] Information: [id number],2ND ORDER NO DRAW F EE % Free [...] PSA, Free 2.01 ng/mL (Normal) Comments: Temo ECLIA methodology. Prostate Specific Ag, Serum 11.4 ng/mL (Abnormal) Range: 0.0-4.0 Comments: Temo ECLIA methodology. .According to the [place] [employer], Serum PSA shoulddecrease and remain at undetectable levels after radicalprostatectomy. The AUA defines biochemical recurrence as an initialPSA value 0.2 ng/mL or greater followed by a subsequent confirmatoryPSA value 0.2 ng/mL or greater.Values obtained with d ifferent assay methods or kits cannot be usedinterchangeably. Results cannot be interpreted as absolute evidenceof the presence or absence of malignant disease. 6-Gzv-290251:17 Bilirubin, Total/Direct, Serum Comments: PATIENT NOT FASTINGPERFORMED BY: [facility]6370 [facility] [id number] Bilirubin, Indirect 1.53 mg/dL (Abnormal) Range: 0.10-0.80 Bilirubin, Direct 0.37 mg/dL (Normal) Range: 0.00-0.40 Bilirubin, Total 1.9 mg/dL (Abnormal) Range: 0.0-1.2 :17 Prostate-Specific Ag, Serum Comments: PATIENT NOT FASTINGPERFORMED BY: [facility]6370 [facility] [id number] Prostate Specific Ag, 11.5 ng/mL (Abnormal) Range: 0.0-4.0 Serum Comments: Temo AmorelieIA methodology. .According to the [place] [employer], Serum PSA shoulddecrease and remain [...] Total+% Free Comments: PATIENT NOT FASTINGPERFORMED BY: [facility]6370 [facility] [id number] % Free PSA 19.7 % (Normal) Comments: [...] Comments: Temo ECLIA methodology. .According to the [place] [employer], Serum PSA shoulddecrease and remain [...] SPRCS (Normal) Comments: PATIENT NOT FASTINGPERFORMED BY: [employer] LabSoldrp Ayckch5637 [address] RoadDublin [place] [id number] :17 Comments: This report has been generated by your request for additional testing.The additional request may have required some testing to be repeated.Because of analytic variability, the results may not correspond exactly to the previous report. Interpret these results appropriately. Written Authorization WAR (Normal) Comments: PATIENT NOT FASTINGPERFORMED BY: [employer] [facility] Cgxohm7262 [address] RoadDublin [place] [id number] :17 Comments: Written Authorization Received.Authorization received from VICKI STYLES DO [id number] by Candi Salazar :01 Microscopic Examination Comments: PATIENT WAS FASTINGPERFORMED BY: [facility] Rsvwsh2094 [address] RoadDublin [place] [id number] Bacteria None seen (Normal) Mucus Threads Present (Normal) Epithelial Cells (non renal) None seen {/hpf} (Normal) Range: 0 - 10 RBC None seen {/hpf} (Normal) Range: 0 - 3 WBC 0-5 {/hpf} (Normal) Range: 0 - 5 :01 Vitamin D Hydroxy (35417) Comments: PATIENT WAS FASTINGPERFORMED BY: [facility] Zngfcx6182 [address] RoadDublin [place] [id number] Vitamin D, 25-Hydroxy 17.2 ng/mL (Abnormal) Range: 30.0-100.0 Comments: Vitamin D deficiency has been defined by the Mobile ofMedicine and an Endocrine Society practice guideline as alevel of serum 25-OH vitamin D less than 20 ng/mL (1,2).The Endocrine Society went on to further define vitamin Dinsufficiency as a level between 21 and 29 ng/mL (2).1. IOM (Mobile of Medicine). 2010. Dietary reference intakes for calcium and D. [place]: The National Academies Press.2. Marcelle MF, Justin PURCELL, Amira ELIAS, et al. Evaluation, treatment, and prevention of vitamin D deficiency: an Endocrine Society clinical practice guideline. JCEM. 2010; 96(7):1911-30. :01 PSA (PROSTATE SPECIFIC Comments: PATIENT WAS FASTINGPERFORMED BY: [employer] [place] [id number] ANTIGEN) (V76.44) Prostate Specific Ag, 7.6 ng/mL (Abnormal) Range: 0.0-4.0 Serum Comments: AppsFlyerIA methodology. .According to the [place] [employer], Serum PSA shoulddecrease and remain at undetectable levels after radicalprostatectomy. The AUA defines biochemical recurrence as an initialPSA value 0.2 ng/mL or greater followed by a subsequent confirmatoryPSA value 0.2 ng/mL or greater.Values obtained with d ifferent assay methods or kits cannot be usedinterchangeably. Results cannot be interpreted as absolute evidenceof the presence or absence of malignant disease. :01 TSH (50440) Comments: PATIENT WAS FASTINGPERFORMED BY: [employer] [place] [id number] TSH 2.530 {uIU/mL} (Normal) Range: 0.450-4.500 :01 URINALYSIS, W/ MICRO (90036) Comments: PATIENT WAS FASTINGPERFORMED BY: [employer] [place] [id number] Microscopic Examination See below: (Normal) Microscopic Examination MICRON (Normal) Comments: Microscopic follows if indicated. Nitrite, Urine Negative (Normal) Urobilinogen,Semi-Qn 0.2 mg/dL (Normal) Range: 0.0-1.9 Bilirubin Negative (Normal) Occult Blood Negative (Normal) Ketones Negative (Normal) Glucose Negative (Normal) Protein Negative (Normal) WBC Esterase Negative (Normal) Appearance Clear (Normal) Urine-Color Yellow (Normal) pH 6.5 (Normal) Range: 5.0-7.5 Specific [place] 1.015 (Normal) Range: 1.005-1.030 : MICROALBUMIN: CREATININE RATIO Comments: PATIENT WAS FASTINGPERFORMED BY: OpenVPNHunterdon Medical CenterYlvhfu2047 [facility] [id number] (43631) AND (05456) Microalb/Creat Ratio 30.3 {mg/g_creat} (Abnormal) Range: 0.0-30.0 Microalbumin, Urine 33.5 ug/mL (Abnormal) Range: 0.0-17.0 Creatinine, Urine 110.7 mg/dL (Normal) Range: 22.0-328.0 : METABOLIC PANEL, COMPREHENSIVE Comments: PATIENT WAS FASTINGPERFORMED BY: OpenVPNAlbuquerque Indian Health CenterCuzrps7251 [facility] [id number] (19501) ALT (SGPT) 23 [iU]/L (Normal) Range: 0-55 [...] mg/dL (Abnormal) Range: 65-99 :01 LIPID PANEL (08160) Comments: PATIENT WAS FASTINGPERFORMED BY: weave energyHunterdon Medical CenterXdywqb7070 [facility] [id number] LDL/HDL Ratio 2.5 {ratio_units} (Normal) Range: 0.0-3.6 [...] MANUAL DIFF Comments: PATIENT WAS FASTINGPERFORMED BY: weave energyHunterdon Medical CenterBfdmom4995 [facility] [id number] Information: [id number] (73891) Immature Grans (Abs) 0.0 {x10E3/uL} (Normal) Range: [...] (Normal) Range: 4.0-10.5 :24 HgA1C , Office (44563) HgA1C , Office 6.7 % (Normal) Range: 4.6 - 7.1 :24 Blood Glucose , Office (51434) Blood Glucose , Office 131 (Normal) :50 HgA1C , Office (61638) HgA1C , Office 6.3 % (Normal) Range: 4.6 - 7.1 :50 Blood Glucose , Office (25411) Blood Glucose , Office 116 (Normal) :05 HgA1C , Office (70973) HgA1C , Office 6.7 % (Normal) Range: 4.6 - 7.1 :58 URINALYSIS, W/ MICRO (69270) Comments: PATIENT WAS FASTINGPERFORMED BY: LabCoHunterdon Medical CenterGfwlhw5729 [facility] [id number] Microscopic Examination See below: (Normal) Microscopic Examination MICRON (Normal) Comments: Microscopic follows if indicated. Nitrite, Urine Negative (Normal) Urobilinogen,Semi-Qn 0.2 mg/dL (Normal) Range: 0.0-1.9 Bilirubin Negative (Normal) Occult Blood Negative (Normal) Ketones Negative (Normal) Glucose Negative (Normal) Protein Negative (Normal) WBC Esterase Negative (Normal) Appearance Clear (Normal) Urine-Color Yellow (Normal) pH 6.5 (Normal) Range: 5.0-7.5 Specific [place] 1.015 (Normal) Range: 1.005-1.030 :58 METABOLIC PANEL, COMPREHENSIVE Comments: PATIENT WAS FASTINGPERFORMED BY: [employer] [facility] [id number] (28770) ALT (SGPT) 23 [iU]/L (Normal) Range: 0-55 [...] Glucose, Serum 126 mg/dL (Abnormal) Range: 65-99 12-Qrb-598582:58 CBC WITH MANUAL DIFF Comments: PATIENT WAS FASTINGPERFORMED BY: Advanced Cardiac TherapeuticsDublin [place] [id number] Information: [id number] (84346) Immature Grans (Abs) 0.0 {x10E3/uL} (Normal) Range: [...] {x10E3/uL} (Normal) Range: 4.0-10.5 :58 LIPID PANEL (25752) Comments: PATIENT WAS FASTINGPERFORMED BY: TERRIE LabCoHunterdon Medical CenterDaswcg8526 [facility] [id number] LDL/HDL Ratio 2.7 {ratio_units} (Normal) Range: 0.0-3.6 [...] CREATININE RATIO Comments: PATIENT WAS FASTINGPERFORMED BY: OpenVPNHunterdon Medical CenterGmnzmn4787 [facility] [id number] (51703) AND (31963) Microalb/Creat Ratio 16.0 {mg/g_creat} (Normal) Range: 0.0-30.0 Microalbumin, Urine 22.3 ug/mL (Abnormal) Range: 0.0-17.0 Creatinine, Urine 139.1 mg/dL (Normal) Range: 22.0-328.0 :58 TSH (48375) Comments: PATIENT WAS FASTINGPERFORMED BY: PayUsLessRx.comVeterans Affairs Medical Center6370 [facility] [id number] TSH 3.200 {uIU/mL} (Normal) Range: 0.450-4.500 :44 TSH (62608) Comments: PATIENT WAS FASTINGPERFORMED BY: PayUsLessRx.comVeterans Affairs Medical Center6370 [facility] [id number] TSH 2.540 {uIU/mL} (Normal) Range: 0.450-4.500 :44 MICROALBUMIN: CREATININE RATIO Comments: PATIENT WAS FASTINGPERFORMED BY: PayUsLessRx.comVeterans Affairs Medical Center6370 [facility] [id number] (24854) AND (57192) Microalb/Creat Ratio 22.8 {mg/g_creat} (Normal) Range: 0.0-30.0 Microalbumin, Urine 47.4 ug/mL (Abnormal) Range: 0.0-17.0 Creatinine, Urine 207.7 mg/dL (Normal) Range: 22.0-328.0 :44 CBC with manual diff Comments: PATIENT WAS FASTINGPERFORMED BY: TERRIE LabCo Mwwfsc9884 [facility] [id number] Information: ADD [id number] AND DRAW FEE 99 [id number] (42660) Immature Grans (Abs) 0.0 {x10E3/uL} (Normal) Range: [...] 4.10-5.60 WBC 6.9 {x10E3/uL} (Normal) Range: 4.0-10.5 14-Gyx-64870:44 Metabolic Panel, Comprehensive Comments: PATIENT WAS FASTINGPERFORMED BY: LabCoHunterdon Medical CenterCmugxd6455 [facility] [id number] (43618) ALT (SGPT) 22 [iU]/L (Normal) Range: 0-55 [...] Glucose, Serum 146 mg/dL (Abnormal) Range: 65-99 32-Mwr-33346:44 Lipid Panel (19075) Comments: PATIENT WAS FASTINGPERFORMED BY: LabCoHunterdon Medical CenterBpxroo1578 [facility] [id number]; appt 11/26/10 LDL Cholesterol Calc 109 mg/dL (Abnormal) Range: 0-99 LDL/HDL Ratio 2.4 {ratio_units} (Normal) Range: 0.0-3.6 HDL Cholesterol 46 mg/dL (Normal) Comments: According to ATP-III Guidelines, HDL-C >59 mg/dL is considered anegative risk factor for CHD. VLDL Cholesterol Bharat 37 mg/dL (Normal) Range: 5-40 Triglycerides 183 mg/dL (Abnormal) Range: 0-149 Cholesterol, Total 192 mg/dL (Normal) Range: 100-199 20-Dty-961568:56 Vitamin D Hydroxy Comments: PATIENT NOT FASTINGPERFORMED BY: swabr70 [facility] [id number] Information: [id number] (10715) Vitamin D, 25-Hydroxy 19.4 ng/mL (Abnormal) Range: 32.0-100.0 Comments: Recent studies consider the lower limit of 32.0 ng/mL to be athreshold for optimal health.Ashu JIMENEZ. J Nutr. 2004;135(2):317-22. :03 HEPATIC FUNCTION PANEL Comments: PATIENT WAS FASTINGPERFORMED BY: swabr70 [facility] [id number] Information: [id number] (55968) Alkaline Phosphatase, S 72 [iU]/L (Normal) Range: 25-160 ALT (SGPT) 24 [iU]/L (Normal) Range: 0-55 AST (SGOT) 21 [iU]/L (Normal) Range: 0-40 Bilirubin, Direct 0.38 mg/dL (Normal) Range: 0.00-0.40 Albumin, Serum 4.0 g/dL (Normal) Range: 3.6-4.8 Bilirubin, Total 1.6 mg/dL (Abnormal) Range: 0.0-1.2 Protein, Total, Serum 6.9 g/dL (Normal) Range: 6.0-8.5 :03 LIPID PANEL (24628) Comments: PATIENT WAS FASTINGPERFORMED BY: swabr70 [facility] [id number] LDL/HDL Ratio 1.7 {ratio_units} (Normal) Range: 0.0-3.6 LDL Cholesterol Calc 66 mg/dL (Normal) Range: 0-99 VLDL Cholesterol Bharat 36 mg/dL (Normal) Range: 5-40 Cholesterol, Total 141 mg/dL (Normal) Range: 100-199 HDL Cholesterol 39 mg/dL (Abnormal) Comments: According to ATP-III Guidelines, HDL-C >59 mg/dL is considered anegative risk factor for CHD. Triglycerides 179 mg/dL (Abnormal) Range: 0-149 :55 CBC WITH MANUAL DIFF Comments: PATIENT NOT FASTINGPERFORMED BY: LabCoHunterdon Medical CenterReonzj6878 [facility] [id number] Information: [id number] (50070) Immature Grans (Abs) 0.0 {x10E3/uL} (Normal) Range: [...] 9.0 {x10E3/uL} (Normal) Range: 4.0-10.5 :55 Magnesium (91583) Comments: PATIENT NOT FASTINGPERFORMED BY: [facility]6370 [facility] [id number] Magnesium, Serum 2.1 mg/dL (Normal) Range: 1.6-2.6 :55 Metabolic Panel, Basic (58099) Comments: PATIENT NOT FASTINGPERFORMED BY: [facility]6370 [facility] [id number] Calcium, Serum 9.3 mg/dL (Normal) Range: 8.6-10.2 [...] Microscopic Examination Comments: PATIENT WAS FASTINGPERFORMED BY: [facility]6370 [facility] [id number] Bacteria None seen (Normal) Cast Type Hyaline casts (Normal) Casts Present {/lpf} (Abnormal) Epithelial Cells (non renal) 0-10 {/hpf} (Normal) Range: 0 - 10 Mucus Threads Present (Normal) RBC 0-3 {/hpf} (Normal) Range: 0 - 3 WBC 0-5 {/hpf} (Normal) Range: 0 - 5 :42 TSH (85055) Comments: PATIENT WAS FASTINGPERFORMED BY: [facility]6370 [facility] [id number] TSH 3.120 {uIU/mL} (Normal) Range: 0.450-4.500 :42 URINALYSIS, W/ MICRO (27542) Comments: PATIENT WAS FASTINGPERFORMED BY: [facility]6370 [facility] [id number] Microscopic Examination See below: (Normal) Bilirubin Negative (Normal) Glucose Negative (Normal) Ketones Negative (Normal) Nitrite, Urine Negative (Normal) Occult Blood Negative (Normal) Urobilinogen,Semi-Qn 0.2 mg/dL (Normal) Range: 0.0-1.9 Appearance Clear (Normal) pH 6.0 (Normal) Range: 5.0-7.5 Protein Negative (Normal) Urine-Color Yellow (Normal) WBC Esterase Trace (Abnormal) Specific [place] 1.020 (Normal) Range: 1.005-1.030 :42 MICROALBUMIN: CREATININE RATIO Comments: PATIENT WAS FASTINGPERFORMED BY: [facility]6370 [facility] [id number] (33631) AND (65020) Microalb/Creat Ratio 14.6 {mg/g_creat} (Normal) Range: 0.0-30.0 Microalbumin, Urine 26.0 ug/mL (Abnormal) Range: 0.0-17.0 Creatinine, Urine 178.3 mg/dL (Normal) Range: 22.0-328.0 :42 METABOLIC PANEL, COMPREHENSIVE Comments: PATIENT WAS FASTINGPERFORMED BY: [facility]6370 [facility] [id number] (15552) Alkaline Phosphatase, S 68 [iU]/L (Normal) Range: [...] Glucose, Serum 129 mg/dL (Abnormal) Range: 65-99 60-Xbu-68852:42 LIPID PANEL (42058) Comments: PATIENT WAS FASTINGPERFORMED BY: LabCoHunterdon Medical CenterBgvfpj0555 [facility] [id number] LDL/HDL Ratio 2.5 {ratio_units} (Normal) Range: 0.0-3.6 LDL Cholesterol Calc 103 mg/dL (Abnormal) Range: 0-99 HDL Cholesterol 42 mg/dL (Normal) Comments: According to ATP-III Guidelines, HDL-C >59 mg/dL is considered anegative risk factor for CHD. Triglycerides 147 mg/dL (Normal) Range: 0-149 VLDL Cholesterol Bharat 29 mg/dL (Normal) Range: 5-40 Cholesterol, Total 174 mg/dL (Normal) Range: 100-199 :42 CBC WITH MANUAL DIFF Comments: PATIENT WAS FASTINGPERFORMED BY: LabCoHunterdon Medical CenterHxcvwa8024 [facility] [id number] Information: ADD [id number] AND DRAW FEE 99 [id number] (87062) Immature Grans (Abs) 0.0 {x10E3/uL} (Normal) Range: [...] (MT) Radiology See Note Comments: Exam Number: [id number] LINICAL:69-year-old man with pain in the left [...] CHOL 194 mg/dL (Normal) Comments: <200 mg/dL Dkhkqisib575-052 mg/dL Borderline>240 mg/dL High Risk :32 PSA, [...] CHOL 157 mg/dL (Normal) Comments: <200 mg/dL Aplolaqho540-164 mg/dL Borderline>240 mg/dL High Risk :54 MICROALB:CRE UR MALB:CREAT 10.3 {mg/g_CRE} (Normal) MICROALBUMIN,UR 19.7 mg/L (Normal) UR CREAT 189.9 mg/dL (Normal) :54 TSH 2.03 {uIU/mL} (Normal) Range: 0.358-3.74 90-Fni-589670:57 WRIST,MIN 3 VIEWS Radiology Report See Note (Normal) Comments: Exam Number: [id number] LEFT HAND Three views of the left hand were obtained. There is good alignment. No acute abnormality is seen. LEFT WRIST Three views were obtained. There is good ali gnment. No significantabnormality is seen. Reported By: SHAHAB CARLOS 79-Lgg-668913:56 CHEST, PA AND LATERAL Radiology Report See Note (Normal) Comments: Exam Number: [id number] CHEST, PA AND LATERAL PA and lateral [...] Report See Note (Normal) Comments: Exam Number: [id number] LEFT HAND Three views of the left [...] 3.5-5.1 NA 141 mmol/L (Normal) Range: 136-145 :41 C-REACTIVE PROT 71.80 mg/L (Abnormal) Range: 0.0-3.0 [...] was performed using the TPSA method for the[facility] chemistry system.Values obtained with different assay methods cannot be usedinterchangably.When changing PSA assays in the course of monito ring apatient, additional sequential testing should be carriedout to confirm baseline values. :32 TSH 1.81 {uIU/mL} (Normal) Range: 0.34-4.82 :46 Vitamin D Hydroxy (17993) Comments: PATIENT NOT FASTINGClinical Information: ADD DRAW FEE [id number] ADD [id number] PERFORMED BY: [address] [id number] Vitamin D, 25-Hydroxy 56.3 ng/mL (Normal) Range: 32.0-100.0 Comments: Recent studies consider the lower limit of 32.0 ng/mL to be athreshold for optimal health.[place] TONY. J Nutr. 2004;135(2):317-22. 23-Nzo-525995:46 VITAMIN D, 1, 25-DIHYDROXY Comments: PATIENT NOT FASTINGPERFORMED BY: [facility] Jfjxtnwfkd4198 [facility] [id number] (75439) Vitamin D, 1,25 Dihydroxy 31.0 pg/mL (Normal) Range: 15.9-55.6 69-Zfh-066985:28 CBCD,SMEAR DIFF Comments: GETS LIPID,LIVER,CBCMD,MICROAB.JOANNE VÁZQUEZ GETS [...] 47-70 WBC 7.3 K/mm3 (Normal) Range: 4.4-11.0 52-Keq-446489:28 COMP METABOLIC Comments: GETS LIPID,LIVER,CBCMD,MICROAB.JOANNE VÁZQUEZ GETS [...] T PROT 7.2 g/dL (Normal) Range: 6.4-8.2 91-Xbo-730329:28 D BILI 0.17 mg/dL (Normal) Comments: GETS LIPID,LIVER,CBCMD,MICROAB.JOANNE VÁZQUEZ GETS CMP,PHOS,MG,VITD,CBC, Range: 0.00-0.30 63-Hwp-044011:28 LIPID Comments: GETS LIPID,LIVER,CBCMD,MICROAB.JOANNE VÁZQUEZ GETS CMP,PHOS,MG,VITD,CBC, [...] mg/dL VLDL 41 mg/dL (Abnormal) Range: 5-40 34-Ysl-372952:28 MG 1.7 mg/dL (Normal) Comments: GETS LIPID,LIVER,CBCMD,MICROAB.JOANNE VÁZQUEZ GETS CMP,PHOS,MG,VITD,CBC, Range: 1.5-2.2 30-Hnv-719635:28 MICROALBUMIN,UR 6.9 mg/L (Normal) Comments: GETS LIPID,LIVER,CBCMD,MICROAB.JOANNE VÁZQUEZ GETS CMP,PHOS,MG,VITD,CBC, 73-Zrf-598123:28 PHOS 3.2 mg/dL (Normal) Comments: GETS LIPID,LIVER,CBCMD,MICROAB.JOANNE VÁZQUEZ GETS CMP,PHOS,MG,VITD,CBC, Range: 2.5-4.9 49-Hrp-943694:28 VIT D,25 86187 29.9 ng/mL (Abnormal) Comments: GETS LIPID,LIVER,CBCMD,MICROAB.JOANNE VÁZQUEZ GETS CMP,PHOS,MG,VITD,CBC, Range: 32.0-100.0 Comments: Recent studies consider the lower limit of 32.0 ng/mL to binta threshold for optimal health.Ashu JIMENEZ. J Nutr. 2004;135(2):317-22.Performed At: [facility]6[address] [place], [place] [id number] 76-Dom-899862:57 VITAMIN D, 1, 25-DIHYDROXY Comments: PATIENT NOT FASTINGClinical Information: ADD DRAW FEE [id number] ADD J 96710 PERFORMED BY: [facility] [address] [id number] (68016) Vitamin D, 1,25 Dihydroxy 38.4 pg/mL (Normal) Range: 15.9-55.6 57-Wua-065212:30 LIPID CHOL 176 mg/dL (Normal) Comments: <200 [...] mg/dL VLDL 41 mg/dL (Abnormal) Range: 5-40 59-Jzc-519300:30 LIVER ALB 3.7 g/dL (Normal) Range: 3.4-5.0 ALK P 57 U/L (Normal) Range: 50-136 ALT 41 U/L (Normal) Range: 30-65 AST 23 U/L (Normal) Range: 15-37 D BILI 0.16 mg/dL (Normal) Range: 0.00-0.30 T BILI 1.63 mg/dL (Abnormal) Range: 0.00-1.00 T PROT 6.9 g/dL (Normal) Range: 6.4-8.2 :46 CHEST, PA AND LATERAL Radiology Report See Note (Normal) Comments: Exam Number: [id number] PA AND LATERAL CHEST CLINICAL STATEMENTCough for [...] 6.4-8.2 :34 MICROALBUMIN,UR 14.3 mg/L (Normal) :34 PTH,[id number] Comments: PLASMA ALDOSTERONE PTH,Intact 63 pg/mL (Normal) Range: 12-65 Comments: Performed At: [facility] [id number] At: [address] [phone] RENIN,PL 2006 0.38 {ng/mL/hr} Comments: PLASMA [...] {uIU/mL} (Normal) Range: 0.34-4.82 :34 VIT D,25 41446 20.2 ng/mL (Abnormal) Comments: PLASMA ALDOSTERONE Range: 32.0-100.0 Comments: Recent studies consider the lower limit of 32.0 ng/mL to binta threshold for optimal health.Ashu JIMENEZ. J Nutr. 2004;135(2):317-22. 12-Epi-22840:00 PROST BX P-PROSB (Normal) Comments: OPERATION Needle [...] RICCI:yanique 11/23/06 TC:3 REPORT SIGNED: TRINI DIAMOND 11/24/0623-Sep-200640-Ixq-166776:35 LIPID CHOL 135 mg/dL (Normal) Comments: <200 [...] mg/dL VLDL 36 mg/dL (Normal) Range: 5-40 23-Kga-675387:35 LIVER ALB 3.5 g/dL (Normal) Range: 3.4-5.0 [...] was performed using the TPSA method for theVIAP chemistry system.Values obtained with different assay methods [...] 137 mmol/L (Normal) Range: 136-145 :14 PSA [id number] COMMENT Comment (Normal) Comments: The percent free PSA is performed on a reflex basis onlywhen the total PSA is between 4.0 and 10.0 ng/mL.Performed At: [facility] [place], [place] [id number] At: [address] [phone] PSA, FREE 0.77 ng/mL (Normal) PSA, FREE [...] ng/mL (Abnormal) Range: 0.0-4.0 Comments: Alex (formerly Gabrielle) [facility] methodology Plan of Care Name Dates [...] kidney disease Elevated parathyroid hormone : Reviewed Student Success Advisor Letter Indication: Elevated parathyroid hormone Elevated parathyroid [...] disease Coronary artery disease, occlusive : Reviewed Student Success Advisor Letter Indication: Coronary artery disease, occlusive Coronary [...] occlusive Coronary artery disease, occlusive : Reviewed Student Success Advisor Letter Indication: Coronary artery disease, occlusive Malignant [...] in both knees, unspecified chronicity : Reviewed Student Success Advisor Letter Indication: Pain in both knees, unspecified [...] hyperlipidemia Coronary artery disease, occlusive : Reviewed Student Success Advisor Letter Indication: Coronary artery disease, occlusive Malignant [...] insulin Coronary artery disease, occlusive : Reviewed Student Success Advisor Letter Indication: Coronary artery disease, occlusive Malignant [...] disease Coronary artery disease, occlusive : Reviewed Student Success Advisor Letter Indication: Coronary artery disease, occlusive Controlled [...] insulin Atrial fibrillation, unspecified type : Reviewed Student Success Advisor Letter Indication: Atrial fibrillation, unspecified type Nonsmoker [...] chronic diastolic congestive heart failure : Reviewed Student Success Advisor Letter Indication: Acute on chronic diastolic congestive heart failure Fluid overload : Reviewed Lab Indication: Fluid overload Fluid overload : Reviewed Diagnostic Tests Indication: Fluid overload Atrial fibrillation, unspecified type : Reviewed Student Success Advisor Letter Indication: Atrial fibrillation, unspecified type Hypertensive [...] on chronic systolic heart failure : Reviewed Student Success Advisor Letter Indication: Acute on chronic systolic heart failure Bilateral edema of lower extremity : Reviewed Lab Indication: Bilateral edema of lower extremity Acute on chronic systolic heart failure : Reviewed Student Success Advisor Letter Indication: Acute on chronic systolic heart [...] of breath on exertion : Follow up - yessenia Indication: Short of breath on exertion Coronary atherosclerosis of [place]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 : Reviewed Student Success Advisor Letter Indication: 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 : Reviewed Diagnostic Tests Indication: Coronary atherosclerosis of [place]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 Acute systolic congestive heart failure : Follow up in 3 weeks- fu on chf and edema and std process Indication: Acute systolic congestive heart failure Bilateral edema of lower extremity : Follow up in wednesday - quick yessenia Indication: Bilateral edema of lower extremity Coronary atherosclerosis of [place]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 : Eprescribed prescriptions (G8553) Indication: Coronary atherosclerosis of [place]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 Acute systolic congestive heart failure : Reviewed Diagnostic Tests Indication: Acute systolic congestive heart failure Acute systolic congestive heart failure : Continue Current Prescription(s) Indication: Acute systolic congestive heart failure Acute systolic congestive heart failure : Reviewed Student Success Advisor Letter Indication: Acute systolic congestive heart failure Shortness of breath on exertion : Follow up wednesday for yessenia on lower extrem edema- and sob & lab Indication: Shortness of breath on exertion Atherosclerosis of [place] coronary artery without angina pectoris, unspecified whether [place] or transplanted heart : Reviewed Student Success Advisor Letter Indication: Atherosclerosis of [place] coronary artery without angina pectoris, unspecified whether [place] or transplanted heart Mixed hyperlipidemia : Cholesterol [...] Cholesterol mgmt Indication: Hyperlipidemia Coronary atherosclerosis of [place]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 : Reviewed Student Success Advisor Letter Indication: Coronary atherosclerosis of [place]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 Diabetes mellitus type 2, uncontrolled, [...] annual wellness exam Elevated PSA : Reviewed Student Success Advisor Letter: milagro neal Indication: Elevated PSA 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 : Continue Current Prescription(s) 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 : Reviewed Lab Indication: Coronary atherosclerosis of [place]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 Hyperlipidemia : Cholesterol mgmt Indication: [...] and congestive heart failure Coronary atherosclerosis of [place]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 : Reviewed Student Success Advisor Letter Indication: Coronary atherosclerosis of [place]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 Diabetes mellitus without complication (Renamed from Diabetes mellitus with no complication) : Diabetes Mellitus: Type 2 *: diabetes type 2 Indication: Diabetes mellitus without complication (Renamed from Diabetes mellitus with no complication) CVA (cerebral infarction) : Reviewed Student Success Advisor Letter: neuro wants to do a brain [...] brain MRI Abnormal brain MRI : Reviewed Student Success Advisor Letter Indication: Abnormal brain MRI Malignant hypertension [...] Vitamin D deficiency, unspecified Coronary atherosclerosis of [place]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 : Reviewed Student Success Advisor Letter Indication: Coronary atherosclerosis of [place]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 Hyperlipidemia : Cholesterol mgmt Indication: [...] mellitus with no complication) Coronary atherosclerosis of [place]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 : Reviewed Student Success Advisor Letter Indication: Coronary atherosclerosis of [place]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 Diabetes mellitus type 2, uncontrolled, [...] mellitus with no complication) Coronary atherosclerosis of [place]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 : Reviewed Student Success Advisor Letter Indication: Coronary atherosclerosis of [place]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 Malignant hypertension with renal disease [...] 2, uncontrolled, without complications Coronary atherosclerosis of [place]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 : Reviewed Student Success Advisor Letter Indication: Coronary atherosclerosis of [place] coronary vessel Hyperlipidemia : Cholesterol mgmt Indication: [...] with renal disease Elevated PSA : Reviewed Student Success Advisor Letter Indication: Elevated PSA Vitamin D deficiency, [...] mgmt Indication: Mixed hyperlipidemia Coronary atherosclerosis of [place] coronary vessel : Reviewed Student Success Advisor Letter Indication: Coronary atherosclerosis of [place] coronary vessel Hypertensive heart disease : Diet, [...] mgmt Indication: Mixed hyperlipidemia Coronary atherosclerosis of [place] coronary vessel : Reviewed Student Success Advisor Letter Indication: Coronary atherosclerosis of [place] coronary vessel Hypertensive heart disease : HTN/CAD [...] Wt loss Indication: Obesity, morbid Atherosclerosis of [place] coronary artery without angina pectoris, unspecified whether [place] or transplanted heart : Reviewed Student Success Advisor Letter Indication: Atherosclerosis of [place] coronary artery without angina pectoris, unspecified whether [place] or transplanted heart Hypertensive heart disease : [...] FOLLOW UP IN 2 WEEKS [facility] Indication: Knee pain Obesity, morbid : Diet, [...] Nonprescription Treatment Indication: Hyperlipidemia Coronary atherosclerosis of [place] coronary vessel : Reviewed Student Success Advisor Letter Indication: Coronary atherosclerosis of [place] coronary vessel Hypertensive heart disease : Diet, [...] of breath at rest Coronary atherosclerosis of [place] coronary vessel : Reviewed Student Success Advisor Letter Indication: Coronary atherosclerosis of [place] coronary vessel Hypertensive heart disease : Diet, [...] Side Effects Indication: Mixed hyperlipidemia Atherosclerosis of [place] coronary artery without angina pectoris, unspecified whether [place] or transplanted heart : Reviewed Student Success Advisor Letter Indication: Atherosclerosis of [place] coronary artery without angina pectoris, unspecified whether [place] or transplanted heart Hypertensive heart disease : [...] obstructive pulmonary disease Elevated PSA : Reviewed Student Success Advisor Letter prostate bx negative Indication: Elevated PSA Hypertensive heart disease : Reviewed Student Success Advisor Letter Indication: Hypertensive heart disease Hyperlipidemia : [...] - Strool Based DNA Test, CRC SCREEN ([id number])Indication: Encounter for screening for malignant neoplasm of colon (Renamed from Special screening for malignant neoplasms, colon) On: 30-Djk-266811:47 Request TSH ([id number])Indication: 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, without long-term current use of insulin On: 8-Ogd-231580:20 Request URINALYSIS, W/ MICRO ([id number])Indication: 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 On: 6-Gls-962187:19 Request MICROALBUMIN: CREATININE RATIO ([id number]) AND ([id number])Indication: 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 On: 4-Gxn-320197:19 Request METABOLIC PANEL, COMPREHENSIVE ([id number])Indication: 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 On: 5-Pzy-996796:19 Request LIPID PANEL ([id number])Indication: 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 On: 2-Sbw-753397:19 Request CBC with auto diff ([id number])Indication: 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 On: :19 Request CALCIFEDIOL ([id number])Indication: Vitamin D deficiency On: 1-Fqc-836216:19 Request CALCIFEDIOL ([id number])Indication: Vitamin D deficiency On: 25-Sya-140433:51 Request PARATHORMONE ([id number])Indication: Elevated parathyroid hormone On: 82-Nyn-074578:51 Request URINALYSIS, W/ MICRO ([id number])Indication: Diabetes mellitus without complication (Renamed from Diabetes mellitus with no complication) On: 7-Ugz-564107:17 Request MICROALBUMIN: CREATININE RATIO ([id number]) AND ([id number])Indication: Diabetes mellitus without complication (Renamed from Diabetes mellitus with no complication) On: :17 Request CALCIFIDIOL ([id number]) VIT D 25Indication: Vitamin D deficiency, unspecified On: :39 Request TSH ([id number])Indication: 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, without long-term current use of insulin On: :39 Request URINALYSIS, W/ MICRO ([id number])Indication: 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, without long-term current use of insulin On: :39 Request MICROALBUMIN: CREATININE RATIO ([id number]) AND ([id number])Indication: 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, without long-term current use of insulin On: :39 Request METABOLIC PANEL, COMPREHENSIVE ([id number])Indication: 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, without long-term current use of insulin On: :39 Request LIPID PANEL ([id number])Indication: 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, without long-term current use of insulin On: :39 Request CBC W/AUTO DIFF WBC ([id number])Indication: 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, without long-term current use of insulin On: :39 Request TSH ([id number])Indication: Diabetes mellitus type 2, uncontrolled, without complications On: :04 Request URINALYSIS, W/ MICRO ([id number])Indication: Diabetes mellitus type 2, uncontrolled, without complications On: :04 Request MICROALBUMIN: CREATININE RATIO ([id number]) AND ([id number])Indication: Diabetes mellitus type 2, uncontrolled, without complications On: 56-Hzz-160945:04 Request METABOLIC PANEL, COMPREHENSIVE (94751)Indication: Diabetes mellitus type 2, uncontrolled, without complications On: :04 Request LIPID PANEL ([id number])Indication: Mixed hyperlipidemia On: :04 Request CBC W/AUTO DIFF WBC ([id number])Indication: Diabetes mellitus type 2, uncontrolled, without complications On: :03 Request FECAL OCCULT- Tubes sent home ([id number])Indication: Encounter for screening for malignant neoplasm of colon (Renamed from Special screening for malignant neoplasms, colon) On: 6-Aqg-467184:21 Request Metabolic Panel, Basic ([id number])Indication: Renal insufficiency On: 8-Xrb-288614:41 Request Comments: wednesday Metabolic Panel, Basic ([id number])Indication: Renal insufficiency On: 05-Jul-2015 Request Metabolic Panel, Basic ([id number])Indication: Renal insufficiency On: 28-Psy-539391:41 Request BASIC METABOLIC w/Ionized Ca++ (30438)Indication: Short of breath on exertion On: 0-Fqo-177572:31 Request METABOLIC PANEL, BASIC ([id number])Indication: Abnormal blood chemistry On: 5-Ere-401831:23 Request Metabolic Panel, Basic ([id number])Indication: Acute systolic congestive heart failure On: 6-Vtp-503678:54 Request Metabolic Panel, Basic ([id number])Indication: Atrial fibrillation, unspecified type On: 13-Ynf-836820:04 Request ASSAY, NATIURETIC PEPTIDE ([id number])Indication: Atrial fibrillation, unspecified type On: 06-Odo-975827:04 Request ASSAY, NATIURETIC PEPTIDE ([id number])Indication: Bilateral edema of lower extremity On: 71-Amv-825514:13 Request ASSAY, NATIURETIC PEPTIDE ([id number])Indication: Acute systolic congestive heart failure On: 41-Bcp-237500:39 Request Comments: re check in 1-2 weeks PSA (Medicare - G0103) ([id number])Indication: Elevated PSA On: 26-Kqn-973330:17 Request TSH ([id number])Indication: Diabetes mellitus type 2, uncontrolled, without complications On: 33-Dmg-495829:16 Request URINALYSIS, W/ MICRO ([id number])Indication: Diabetes mellitus type 2, uncontrolled, without complications On: :16 Request MICROALBUMIN: CREATININE RATIO ([id number]) AND ([id number])Indication: Diabetes mellitus type 2, uncontrolled, without complications On: :16 Request METABOLIC PANEL, COMPREHENSIVE ([id number])Indication: Diabetes mellitus type 2, uncontrolled, without complications On: :16 Request LIPID PANEL ([id number])Indication: Diabetes mellitus type 2, uncontrolled, without complications On: : Request CBC with auto diff ([id number])Indication: Diabetes mellitus type 2, uncontrolled, without complications On: :16 Request CALCIFIDIOL ([id number]) VIT D 25Indication: Vitamin D deficiency, unspecified On: :16 Request Vitamin D Hydroxy ([id number])Indication: Vitamin D deficiency, unspecified On: 5-Vux-255320:05 Request URINALYSIS, W/ MICRO ([id number])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 On: :04 Request MICROALBUMIN: CREATININE RATIO ([id number]) AND ([id number])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 On: 2-Xak-823560:04 Request METABOLIC PANEL, COMPREHENSIVE ([id number])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 On: :04 Request LIPID PANEL ([id number])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 On: :04 Request CBC WITH MANUAL DIFF ([id number])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 On: 2-Yis-140070:04 Request FECAL OCCULT- Tubes sent home ([id number])Indication: Encounter for routine history and physical exam for male On: :09 Request CALCIFIDIOL (32053) VIT D 25Indication: Vitamin D deficiency, unspecified On: 4-Qxq-715963:11 Request PSA TOTAL +%FREE 790117 ([id number])Indication: Elevated PSA On: :14 Request BILIRUBIN, TOTAL & DIRECT ([id number])Indication: Other specified abnormal findings of blood chemistry On: :14 Request Glucose, PP/2 Hour (87061)Indication: Other specified abnormal findings of blood chemistry On: 33-Xqx-158245:03 Request CALCIFIDIOL ([id number]) VIT D 25Indication: Vitamin D deficiency, unspecified On: 61-Duq-766832:31 Request TSH ([id number])Indication: Hypertensive heart disease On: :28 Request URINALYSIS, W/ MICRO ([id number])Indication: Hypertensive heart disease On: :28 Request MICROALBUMIN: CREATININE RATIO ([id number]) AND ([id number])Indication: Hypertensive heart disease On: :28 Request METABOLIC PANEL, COMPREHENSIVE ([id number])Indication: Hypertensive heart disease On: : Request CBC WITH MANUAL DIFF ([id number])Indication: Hypertensive heart disease On: : Request PSA (PROSTATE SPECIFIC ANTIGEN) (V76.44)Indication: Elevated PSA On: 39-Iam-935742:25 Request LIPID PANEL ([id number])Indication: Hyperlipidemia On: 20-Vcc-349092:23 Request Comments: do for next appt- 4mo Metabolic Panel, Basic ([id number])Indication: Pain of hand, unspecified laterality On: 76-Wlf-534974:42 Request URIC ACID BLOOD ([id number])Indication: Pain of hand, unspecified laterality On: 47-Zcs-454476:42 Request C-REACTIVE PROTEIN ([id number])Indication: Pain of hand, unspecified laterality On: 57-Htq-617028:52 Request SED RATE ERYTHROCYTE ([id number])Indication: Pain of hand, unspecified laterality On: 94-Xqb-163835:52 Request CBC WITH MANUAL DIFF ([id number])Indication: Pain of hand, unspecified laterality On: 83-Wjd-002114:51 Request Magnesium ([id number])Indication: Hypokalemia On: 26-Ltk-334504:25 Request Potassium Serum (82149)Indication: Hypokalemia On: 61-Kmd-973387:25 Request Comments: do in 2 weeks Vitamin D Hydroxy (74614)Indication: Vitamin D deficiency, unspecified On: 14-Rcd-505085:23 Request Glucose, PP/2 Hour (14631)Indication: Other specified abnormal findings of blood chemistry On: 50-Lrx-252098:18 Request LIPID PANEL ([id number])Indication: Hyperlipidemia On: 46-Kvn-510664:45 Request Comments: DO IN 3 MONTHS HEPATIC FUNCTION PANEL (79809)Indication: Hyperlipidemia On: 13-Dtb-167338:45 Request HEPATIC FUNCTION PANEL ([id number])Indication: Hyperlipidemia On: 33-Jly-153081:54 Request LIPID PANEL ([id number])Indication: Hyperlipidemia On: 50-Pnv-708942:54 Request Comments: do in 3 months PARATHORMONE ([id number])Indication: Vitamin D deficiency, unspecified On: 23-Znt-399005:45 Request CALCIUM SERUM ([id number])Indication: Vitamin D deficiency, unspecified On: 17-Bst-832241:45 Request VITAMIN D, 1, 25-DIHYDROXY (32106)Indication: Vitamin D deficiency, unspecified On: 95-Wqa-395486:45 Request VITAMIN D, 25-DIHYDROXY ([id number])Indication: Vitamin D deficiency, unspecified On: 93-Ana-898258:45 Request LIPID PANEL ([id number])Indication: Hyperlipidemia On: 53-Mnf-355660:44 Request Planned Procedures INTENSIVE BEHAVIORAL THERAPY TO On: 15-Nov-2017 Intent REDUCE CARDIOVASCULAR DISEASE RISK, INDIVIDUAL, [id number], ANNUAL, 15 MINUTES (G0446)By: Vicki Styles DO, DO, Kathleen [id number] BEHAVIORAL COUNSELING On: 15-Nov-2017 Intent FOR OBESITY, 15 MINUTES (G0447)By: Vicki Styles DO, DO, Kathleen Spirometry (25301)By: Neil NG, On: 06-Sep-2017 Intent Vicki Nichols DO Comments: severe obsstyuction and good effort on curve-- addeed dulera - ELECTROCARDIOGRAM, COMPLETE (ECG) On: 06-Sep-2017 Intent ([id number])By: Vicki Styles DO Comments: a fib- rate controlled - no acute findings Vicki Styles DO X-RAY OF HAND, THREE VIEWS On: 17-Jun-2017 Intent ([id number])By: Vicki Styles DO Comments: Right hand Vicki Styles DO PARATHYROID SCAN ([id number])By: Neil On: 17-Jun-2017 Vicki Coates DO, DO, Kathleen Overnight Pulse OX ([id number])By: On: 04-Jun-2017 Intent Vicki Styles DO, DO, Kathleen GFMV-KJ-YXDE BEHAVIORAL COUNSELING On: 09-Nov-2016 Intent FOR OBESITY, 15 MINUTES (G0447)By: Vicki Styles DO, DO, Kathleen INTENSIVE BEHAVIORAL THERAPY TO On: 09-Nov-2016 Intent REDUCE CARDIOVASCULAR DISEASE RISK, INDIVIDUAL, NRBN-IV-NZNT, ANNUAL, 15 MINUTES (G0446)By: Vicki Styles DO, DO, Kathleen ELECTROCARDIOGRAM, COMPLETE (ECG) On: 10-Sep-2016 Intent ([id number])By: Vicki Styles DO Comments: chronic chg - afib/flutter - rate controlled Vicki Styles DO SIX MINUTE WALK TEST ([id number])By: On: 26-Mar-2016 Intent Vicki Styles DO, DO, Kathleen Overnight Pulse OX (46558)By: On: 09-Mar-2016 Intent Vicki Styles DO, DO, Kathleen Overnight Pulse OX ([id number])By: On: 04-Mar-2016 Intent Vicki Styles DO, DO, Kathleen Spirometry (43662)By: Neil NG, On: 04-Mar-2016 Intent Vicki Nichols DO Comments: pt admits not using inhalers - restrictive pattern - refilled inhalers - symbicort nad spiriva and will yessenia in one month INTENSIVE BEHAVIORAL THERAPY TO On: 07-Nov-2015 Intent REDUCE CARDIOVASCULAR DISEASE RISK, INDIVIDUAL, [id number], ANNUAL, 15 MINUTES (G0446)By: Vicki Styles DO, DO, Kathleen [id number]-[id number] BEHAVIORAL COUNSELING On: 07-Nov-2015 Intent FOR OBESITY, 15 MINUTES (G0447)By: Vicki Styles DO, DO, Kathleen Radiology - Chest- PA and LatBy: On: 18-Apr-2015 Intent Vicki Styles DO, DO, Kathleen Echo CompleteBy: Neil NG, On: 18-Apr-2015 Intent Vicki Styles DOJonathanVicki Prevnar 13 ([id number])By: Neil NG, On: 16-Jan-2014 Intent Vicki Styles DO, Vicki Prevnar 13 ([id number])By: Neil NG, On: 16-Jan-2014 Intent Vicki Neil DO, Vicki Comments: [id number] arm, 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, FELTER TENNIS [employer]ALLS Overnight Pulse OX ([id number])By: On: 03-Jan-2014 Intent Jonathan Styles DOeen Neil DO, Vicki Six Minute Walk Assessment On: 28-Dec-2013 Intent ([id number])By: Neil DO, Vicki Neil DO, Vicki CCHE-YX-JETM BEHAVIORAL COUNSELING On: 23-Nov-2013 Intent FOR OBESITY, 15 MINUTES (G0447)By: Neil DO, Vicki Neil DO, Vicki INTENSIVE BEHAVIORAL THERAPY TO On: 19-Oct-2013 Intent REDUCE CARDIOVASCULAR DISEASE RISK, INDIVIDUAL, [id number]-[id number], ANNUAL, 15 MINUTES (G0446)By: Neil DO, Vicki Neil DO, Vicki [id number] BEHAVIORAL COUNSELING On: 19-Oct-2013 Intent FOR OBESITY, 15 MINUTES (G0447)By: Samira Styles DOhleen Neil DO, Vicki Radiology - Chest- PA and LatBy: On: 24-Aug-2013 Intent Neil DO, Vicki Neil DO, Vicki Aerosol Treatment ([id number])By: On: 24-Aug-2013 Intent Neil DO, Vicki Neil DO, Comments: no wheeze and much more a/e Vicki Eprescribed prescriptions On: 15-May-2013 Intent (G8553)By: Leora Fonseca LPN Eprescribed prescriptions On: 20-Mar-2013 Intent (G8553)By: Neil DO, Vicki Neil DO, Vicki INTENSIVE BEHAVIORAL THERAPY TO On: 17-Oct-2012 Intent REDUCE CARDIOVASCULAR DISEASE RISK, INDIVIDUAL, QMCV-GK-[id number], ANNUAL, 15 MINUTES (G0446)By: Neil DO, Vicki Neil DO, Vicki [id number]-TX-[id number] BEHAVIORAL COUNSELING On: 17-Oct-2012 Intent FOR OBESITY, 15 MINUTES (G0447)By: Vicki Styles DO Neil DO, Vicki EKG ([id number])By: Neil NG, On: 17-Oct-2012 Intent Vicki Neil DO, Vicki Eprescribed prescriptions On: 17-Oct-2012 Intent (G8553)By: Leora Fonseca LPN Six Minute Walk Assessment On: 28-Jul-2012 Intent ([id number])By: Gay Brandon LPN Bio Z (03490)By: Neil , On: 18-Jul-2012 Intent Vicki Nichols DO Comments: unable to connect and perform Six Minute Walk Assessment On: 18-Jul-2012 Intent (38158)By: Vicki Styles DO Comments: set up Neil DO Vicki Eprescribed prescriptions On: 22-Apr-2012 Intent (G8553)By: Leora Fonseca LPN Spirometry ([id number])By: Neil NG, On: 21-Jan-2012 Intent Vicki Nichols DO Comments: poor effort Eprescribed prescriptions On: 21-Jan-2012 Intent (G8553)By: Leora Fonseca LPN PFT - CompleteBy: Neil NG, On: 21-Oct-2011 Intent Vicki Nichols DO EKG ([id number])By: Neil NG, On: 21-Oct-2011 Intent Vicki Nichols DO Comments: nsr no acute chg Eprescribed prescriptions On: 05-Aug-2011 Intent (G8553)By: Leora Fonseca LPN Six Minute Walk Assessment On: 06-Feb-2011 Intent ([id number])By: Naomi Mendez Comments: see scanned documents Six Minute Walk Assessment On: 26-Nov-2010 Intent ([id number])By: Vicki Styles DO Comments: set up Neil DO, Vicki Bio Z ([id number])By: Neil NG, On: 26-Nov-2010 Intent Vicki Nichols DO Comments: norrmal parameters no chg in rx EKG ([id number])By: Neil NG, On: 26-Nov-2010 Intent VickiVicki Jones DO Comments: nsr no acute chgn TDAP VACCINE >7 IM (73057)By: On: 30-Jul-2010 Intent Vicki Styles DO, DO, Comments: Lot:[id number]:06/26/12Amt:prefilledRoute:IMSite: left deltGiven By: CARYL Edwards Vicki Eprescribed prescriptions On: 30-Jul-2010 Intent (G8553)By: Neil DO, Vicki Neil DO, Vicki Bio Z ([id number])By: Neil DO, On: 30-Jul-2010 Intent Vicki Styles DOVicki Comments: STABLE SEE SCANNED DOC -NO CHG IN MEDS EKG (30533)By: Neil DO, On: 26-Mar-2010 Intent Vicki Neil DO, Vicki Bio Z ([id number])By: Neil DO, On: 26-Mar-2010 Intent Vicki Styles DOVicki PHYSICAL THERAPY EVALUATION On: 07-Jan-2010 Intent ([id number])By: Elisabet Matos CNP Radiology - Knee - Left - Weight On: 07-Jan-2010 Intent BearingBy: Ciesa Elisabet HIRSCH E Radiology - Knee - LeftBy: Ciesa On: 07-Jan-2010 Intent Elisabet HIRSCH E Renal Duplex ScanBy: Neil NG, On: 14-Jun-2009 Intent Vicki Neil DO, Vicki Radiology - Wrist - LeftBy: Neil On: 19-Mar-2009 Intent DO, Vicki Neil DO, Vicki Radiology - Hand - LeftBy: Neil On: 19-Mar-2009 Intent DO, Vicki Neil DO, Vicki Radiology - Chest- PA and LatBy: On: 19-Mar-2009 Intent Neil DO, Vicki Neil DO, Vicki Bio Z ([id number])By: Neil DO, On: 19-Mar-2009 Intent Vicki Neil DOVicki Comments: ok co and svr EKG ([id number])By: Neil NG, On: 19-Mar-2009 Intent Vicki Neil DOVicki Comments: nsr no acute changes Spirometry (98457)By: Neil NG, On: 19-Mar-2009 Intent Vicki Nichols DO Comments: mild obstructive pattern - Pulse Oximetry (74143)By: Mast RN, On: 19-Mar-2009 Intent Darling EKG (14213)By: Neil NG, On: 25-Jul-2008 Intent Vicki Neil DOVicki Comments: no acute stable Bio Z ([id number])By: Neil DO, On: 25-Jul-2008 Intent Vicki Nichols DO Comments: stable no changes Six Minute Walk Assessment On: 16-May-2008 Intent ([id number])By: Crystal Reyes Six Minute Walk Assessment On: 23-Mar-2008 Intent (50623)By: Vicki Styles DO, DO, Kathleen Bio Z (10532)By: Neil NG, On: 23-Mar-2008 Intent Vicki Nichols DO Comments: normal svr and co Radiology - Knee - LeftBy: Neil On: 28-Dec-2007 Intent DO, Vicki Neil DO, Vicki Radiology - Knee - RightBy: Neil On: 28-Dec-2007 Intent DO, Vicki Neil DO Vicki Bio Z ([id number])By: Neil NG, On: 28-Dec-2007 Intent Vicki Nichols DO Comments: normal svr and co Bio Z ([id number])By: Neil NG, On: 01-Sep-2007 Intent Vicki Nichols DO Comments: HYPERDYNAMIC HEART-- HI CO AND LO SVR Holter Moniter ([id number])By: Neil On: 04-May-2007 Intent Vicki NG DO, Kathleen Comments: set up Bio Z ([id number])By: Neil NG, On: 04-May-2007 Intent Vicki Nichols DO Comments: normal svr and co EKG (13212)By: Neil NG, On: 04-May-2007 Intent Vicki iNchols DO Comments: nsr some pvc-- no acute ischemic changes Radiology - Chest- PA and LatBy: On: 24-Mar-2007 Intent Vicki Styles DO, DO, Kathleen Aerosol Treatment (34472)By: On: 24-Mar-2007 Intent Vicki Styles DO, DO, Comments: better air exchange less wheeze and less irritability with cough Vicki Solu- Medrol Injection, 125mg On: 24-Mar-2007 Intent ([id number])By: Vicki Styles DO Comments: given in right hip, 125mg, lot#[id number], exp.--WF Vicki Styles DO Spirometry ([id number])By: Neil NG, On: 24-Mar-2007 Intent Vicki Nichols DO Comments: severe airway obstruction Pulse Oximetry ([id number])By: Neil On: 24-Mar-2007 Intent Vicki NG DO, Kathleen Comments: 94% Doppler Ultrasound OtherBy: Neil On: 02-Mar-2007 Intent Vicki NG DO, Kathleen Comments: R Inhaler Demo ([id number])By: Neil NG, On: 27-Jan-2007 Intent Vicki Nichols DO Bio Z ([id number])By: Neil NG, On: 27-Jan-2007 Intent Vicki Nichols DO Comments: normal svr and co Spirometry (10540)By: Neil NG, On: 27-Jan-2007 Intent Vicki Nichols DO Comments: mild obstruction Bio Z ([id number])By: Neil NG, On: 11-Oct-2006 Intent Vicki Nichols DO Comments: normal svr and co EKG ([id number])By: Neil NG, On: 26-Apr-2006 Intent Vicki Nichols DO Comments: nsr intraventricular conduction delay no acute ischemic changes Holter Moniter ([id number])By: On: 26-Mar-2006 Intent REILLY Moya Instructions Name [...] systolic congestive heart failure Coronary atherosclerosis of [place] coronary vessel : How to access health information online Indication: 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 : How to access health information online - Detail Indication: Coronary atherosclerosis of [place] coronary vessel Bilateral edema of lower extremity [...] 2, uncontrolled, without complications Coronary atherosclerosis of [place] coronary vessel : cardiovascular counseling Indication: Coronary atherosclerosis of [place] coronary vessel BMI 37.0-37.9, adult : obesity [...] Indication: Abnormal brain MRI Coronary atherosclerosis of [place] coronary vessel : cardiovascular counseling Indication: Coronary atherosclerosis of [place] coronary vessel BMI 36.0-36.9,adult : obesity counseling [...] The patient does have durable power of immigration attorney and living will. The patient has noticed nothing from the geriatic depression scale. Other providers contributing to the patient's care are manager application, forest fire fighters dispatcher, urologist and other: (endo).Encounter Diagnosis: Nonsmoker, BMI [...] the patient is following up for inc susan All identified problems below, blood sugar issues, [...] I called squad and I was at [facility] and then I went to [facility] for End: 06-Jan-2017 11:01 heraphy) and a [...] The patient does have durable power of immigration attorney and living will. The patient has noticed nothing from the geriatic depression scale. Other providers contributing to the patient's care are manager application, urologist and other:.Encounter Diagnosis: Nonsmoker, BMI 35.0-35.9,adult, [...] extremity edema, increase SOB. Recent trip to [place] Encounter Diagnosis: Edema extremities, Fluid overload, Atrial [...] The patient does have durable power of immigration attorney and living will. The patient has noticed lack of energy. Other providers contributing to the patient's care are manager application and urologist. Encounter Diagnosis: Encounter for Medicare [...] Hypertension with renal disease, Coronary atherosclerosis of [place] coronary vessel, Chronic kidney disease, stage 3 [...] vivid dreams. Encounter Diagnosis: Coronary atherosclerosis of [place] coronary vessel, Apnea, BPH (benign prostatic hyperplasia) (600.90), Other urinary incontinence, Bilateral edema of lower extremity, Short of breath on exertion, Non morbid obesity, unspecified obesity type, Therapeutic drug monitoring [facility] Office Visit On: 10-May-2015 10:16 Encounter Diagnosis: Atrial fibrillation, unspecified type, Coronary atherosclerosis of [place] coronary vessel (414.01), Acute systolic congestive heart [...] type, Abnormal blood chemistry, Coronary atherosclerosis of [place] coronary vessel (414.01) End: 06-May-2015 10:58 Comprehensive [...] deficiency, unspecified, Mixed hyperlipidemia (272.2), Atherosclerosis of [place] coronary artery without angina pectoris, unspecified whether [place] or transplanted heart, History of CVA in [...] weight :. Encounter Diagnosis: Coronary atherosclerosis of [place] coronary vessel (414.01), BMI 37.0-37.9, ADULT (V85.37), [...] patient d oes have durable power of immigration attorney and living will. The patient has noticed feeling situation is hopeless (recently). Other providers contributing to the patient's care are manager application (Dr. Greenfield), uro logist and other: ([facility] - [facility] - Dr Quezada).Encounter Diagnosis: Annual Medicare Physical (V70.0), BMI 37.0-37.9, ADULT (V85.37), Coronary atherosclerosis of [place] coronary vessel (414.01) [facility] [...] mellitus with no complication), Coronary atherosclerosis of [place] coronary vessel (414.01), Hyperlipidemia (272.4), Hypertension with [...] pressure range :.Encounter Diagnosis: Coronary atherosclerosis of [place] coronary vessel (414.01), Hypertension with Heart and Renal Disease (404.93), Diabetes mellitus without complication (Renamed from Diabetes mellitus with no complication), Hyperlipidemia (272.4), Edema (782.3) [facility] Office Visit On: 20-Mar-2013 10:40 Encounter Diagnosis: Hypertension with Heart and Renal Disease (404.93), CVA (cerebral infarction) (434.91), Coronary atherosclerosis of [place] coronary vessel (414.01) End: 20-Mar-2013 11:53 [facility] Office Visit On: 15-Feb-2013 14:36 Encounter Reason: Transition into care - The patient most recently received care from a hospital (in hosp from 02/12/13 to 02/14/13 for a minor stroke.).Encounter Diagnosis: Abnormal brain MRI (793.0), End: 15-Feb-2013 15:50 Hypertension with Heart and Renal Disease (404.93), Coronary atherosclerosis of [place] coronary vessel (414.01), CVA (cerebral infarction) (434.91), [...] in bathroom. The patient has completed the [facility] preventative measures: PSA testing (september 2012) and colonoscopy (around 10 years). The patient does have durable power of immigration attorney and living will. The patient has noticed nothing from the geriatic depression scale. Other providers contributing to the patient's care are manager application (Dr. Greenfield) and urologist. 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), Hyperlipidemia (272.4), Coronary atherosclerosis of [place] coronary vessel (414.01), Unspecified vitamin D deficiency [...] disease (402.90), Hyperlipidemia (272.4), Coronary atherosclerosis of [place] coronary vessel (414.01), Edema (782.3) [facility] [...] mellitus without complication (250.00), Coronary atherosclerosis of [place] coronary vessel (414.01), Hypertension with Renal Disease [...] II,uncontrolled, no comp (250.02), Coronary atherosclerosis of [place] coronary vessel (414.01), Atrial fibrillation (427.31), Benign [...] fibrillation (427.31), COPD (496.), Coronary atherosclerosis of [place] coronary vessel (414.01) [facility] Phone [...] fibrillation (427.31), COPD (496.), Coronary atherosclerosis of [place] coronary vessel (414.01), Mixed hyperlipidemia (272.2), Hypertensive [...] , Atrial fibrillation (427.31), Coronary atherosclerosis of [place] coronary vessel (414.01) [facility] Office [...] Coronary atherosclerosis of unspecified type of vessel, [place] or graft (414.00), COPD (496.), Hyperglycemia (790.29), [...] Coronary atherosclerosis of unspecified type of vessel, [place] or graft (414.00), Atrial fibrillation (427.31), Obesity, [...] Coronary atherosclerosis of unspecified type of vessel, [place] or graft (414.00), Hypertensive heart disease (402.90) [...] Hypertensive heart disease (402.90), Coronary atherosclerosis of [place] coronary vessel (414.01), Atrial fibrillation (427.31), Hyperlipidemia [...] Coronary atherosclerosis of unspecified type of vessel, [place] or graft (414.00), Atrial fibrillation (427.31), Hypocalcemia [...] Hypertensive heart disease (402.90), Coronary atherosclerosis of [place] coronary vessel (414.01), Hyperlipidemia (272.4), COPD (496.), [...] Coronary atherosclerosis of unspecified type of vessel, [place] or graft (414.00), Atrial fibrillation (427.31), Mixed [...] Coronary atherosclerosis of unspecified type of vessel, [place] or graft (414.00), Atrial fibrillation (427.31), Mixed [...] Coronary atherosclerosis of unspecified type of vessel, [place] or graft (414.00), Atrial fibrillation (427.31), Coronary atherosclerosis of [place] coronary vessel (414.01), Unspecified vitamin D deficiency [...] Diagnosis: Atrial fibrillation (427.31), Coronary atherosclerosis of [place] coronary vessel (414.01), Hypertensive heart disease (402.90), [...] (402.90), Atrial fibrillation (427.31), Coronary atherosclerosis of [place] coronary vessel (414.01), Hyperlipidemia (272.4), Cough (786.2), [...] Hypertensive heart disease (402.90), Coronary atherosclerosis of [place] coronary vessel (414.01), Atrial fibrillation (427.31), Hyperlipidemia [...] End: 01-Jan-2006 12:10 Payers MedicareTRICARE FOR LIFE, [facility] [employer]; a guarantor
--- OUTSIDE RECORDS SUMMARY | 2018-04-29 15:56 | XMS RPT_ITS | Continuity of Care Document ---
:1940 Author Organization [facility] Address [facility] [place] [address] Phone Care Team Providers Name Role Phone Neil DO Vicki Unavailable Milagro PHAN, Dr. Mohsen Mckenna Unavailable Physical Therapy, [facility] Unavailable Lesa Alvarado Unavailable Dr. Juan Sin DO Unavailable [facility], Diagnostic Services Unavailable Kimo Roger MD Unavailable Mata Leonard Unavailable [facility] Unavailable Kamaljit PHAN, Dr. Joan Arechiga Unavailable [...] Apnea (R06.81, 786.03) Status: Active Atherosclerosis of andreafski coronary artery without angina pectoris, unspecified whether andreafski or transplanted heart (I25.10, 414.01) Status: Active [...] as advised by Gin.BP improved at home: 116-135/78-57276/88, 116/78, 125/76, 128/84, 129/77, 140/80.Digital Marketing Intern palpitations, LH, dizziness, chest pain. 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) Status: Active Hypoxia (R09.02, 799.02) Comments: sleep related and wears at nightmanaged by [employer] Status: Active Influenza vaccination declined (Renamed from [...] 90 days Quantity: 180 {Tablet} Refills: 2 Ordered:31-May-2017 Fabiola Styels DO, DO, Kathleen Start : 31-May-2017 Active Lopressor 100 MG Oral Tablet 1 Tablet bid for 0 days Quantity: 60 {Tablet} Refills: 3 Ordered:31-May-2017 Fabiola Styles DO, DO, Kathleen Start : 31-May-2017 Active MetFORMIN HCl ER 500 MG Oral [...] 17-Jun-2017 Inactive Comments:on national back order DRISDOL, 48671VECH (Oral Capsule) 1 Capsule uad for 0 days Quantity: 8 {Capsule} Refills: 4 Ordered:21-Jan-2012 Leora Fonseca LPN Start : 31-Jul-2010 End : 21-Jan-2012 Inactive Comments:2 tabs q week x 4 mo and then 1 tab weekly ERGOCALCIFEROL, 15612SAOV (Oral Capsule) 1 (one) Capsule tad for [...] Moya Start : 21-Aug-2008 Inactive VITAMIN D3, 30350VELS (Oral Capsule) 1 Capsule 2 x week [...] Comments:take 1/2 hr prior to lasix Nystatin 021080 UNIT/ML Mouth/Throat Suspension 5 cc cc swish [...] Inactive as of 04-Mar-2016 Coronary atherosclerosis of andreafski coronary vessel (I25.10, 414.01) Comments: other stent [...] Visit Report Result: Comments: See Note; NOTES: [facility] [address] [place] [address] OFFICE VISIT Date of Service: 01/13/18 MR#: [id number] Acct: [id number] Name: RAMU DEWITT Rep #: [id number] : 1940 Provider: Jimi Greenfield MD Age/Sex: 77/M Location: [facility] Status: Signed HPI HPI Chief Complaint: Follow up visit Details: RAMU DEWITT, is a 77 M who presents to the [facility] today for a cardiovascular outpatient follow-up. [...] Intake Visit Re asons: 6 M FU Liquor Commissioner Required: No Accompanied by: none Is patient [...] mg PO DAILY 01/13/18 [History Confirmed 01/13/18] PFS Medical History Atherosclerosis of andreafski coronary artery of andreafski heart without ang hernán pectoris (Chronic) Mitral valve insufficiency (Chronic) Localized edema (Resolved) Bilateral pleural effusion (Resolved) History of stroke (Chronic) Acute on chronic systolic (congestive) heart fail ure (Chronic) Hyperlipidemia (Chronic) group home use of drug (Chronic) Ischemic cardiomyopathy (Chronic) FH: sudden cardiac (SCD) (Chronic) 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 of premature coronary heart disease (Director 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 Plan Detail 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 ([facility]) Coding Level of Care Code Off vis,est,level [...] Greenfield MD> Date C marcie Greenfield MD [facility] Signature: Date (if applicable) CC: Vicki Styles DO 20-Aug-2017 Hand Min 3 Views Result: Comments: See Note; NOTES: [facility] Imaging Services [address] [place] [address] Hand Min 3 Views MR#: [id number] Acct: [id number] Name: RAMU DEWITT Rep #: [id number] B: 1940 M 76 From: Andre Crisostomo MD PCP: Vicki Styles DO Status: REG CLI Study: Hand Min 3 Views Date of Exam: 08/20/17 Exam# [id number] Ordering Dr: Lesa Alvarado MD STUDY: X-RAY [...] CC: Vicki Styles DO; Lesa Alvarado MD Casting Room Operator: Signed 20-Aug-2017 Hand Min 3 Views Result: Comments: See Note; NOTES: [facility] Imaging Services [address] [place] [address] Hand Min 3 Views MR#: [id number] Acct: [id number] Name: RAMU DEWITT Rep #: [id number] DO B: 1940 M 76 From: Andre Crisostomo MD PCP: Vicki Styles DO Status: REG CLI Study: Hand Min 3 Views Date of Exam: 08/20/17 Exam# [id number] Ordering Dr: Lesa Alavrado MD STUDY: X-RAY - RIGHT CANO D [...] CC: Vicki Styles DO; Lesa Alvarado MD Casting Room Operator: Signed 20-Aug-2017 Knee 4 or More Views Result: Comments: See Note; NOTES: [facility] Imaging Services [address] [place] [address] Knee 4 or More Views MR#: [id number] Acct: [id number] Name: RAMU DEWITT Rep #: [id number] : 1940 M 76 From: Andre Crisostomo MD PCP: Vicki Styles DO Status: REG CLI Study: Knee 4 or More Views Date of Exam: 08/20/17 Exam# [id number] Ordering Dr: Lesa Alvarado MD STUDY: X-RAY [...] CC: Vicki Styles DO; Lesa Alvarado MD Casting Room Operator: Signed 20-Aug-2017 Knee 4 or More Views Result: Comments: See Note; NOTES: [facility] Imaging Services [address] [place] [address] Knee 4 or More Views MR#: [id number] Acct: [id number] Name: RAMU DEWITT Rep #: [id number] : 1940 M 76 From: Andre Crisostomo MD PCP: Vicki Styles DO Status: REG CLI Study: Knee 4 or More Views Date of Exam: 08/20/17 Exam# [id number] Ordering Dr: Lesa Alvarado MD STUDY: X-RAY [...] CC: Vicki Styles DO; Lesa Alvarado MD Casting Room Operator: Signed 24-Jun-2017 Parathyroid Scan Result: Comments: See Note; NOTES: [facility] Imaging Services [address] [place] [address] Parathyroid Scan MR#: [id number] Acct: [id number] Name: RAMU DEWITT Rep #: [id number] DO B: 1940 M 76 From: Rickie Mcelroy PCP: Vicki Styles DO Status: REG CLI Study: Parathyroid Scan Date of Exam: 06/24/17 Exam# [id number] Ordering Dr: Vicki Styles DO CLINICAL: 76-year-old [...] Service support , CC: Vicki Styles DO Casting Room Operator: Signed 17-Jun-2017 Hand Min 3 Views Result: Comments: See Note; NOTES: [facility] Imaging Services [address] [place] [address] Hand Min 3 Views MR#: [id number] Acct: [id number] Name: RAMU DEWITT Rep #: [id number] DO B: 1940 M 76 From: Trung Gonzalez DO PCP: Vicki Styles DO Status: REG CLI Study: Hand Min 3 Views Date of Exam: 06/17/17 Exam# [id number] Ordering Dr: Vicki Styles DO STUDY: X-RAY [...] Service support , CC: Samira Styles DO Casting Room Operator: Signed 16-Jun-2017 Cardiology Visit Report Result: Comments: See Note; NOTES: [facility] [address] [place] [address] OFFICE VISIT Date of Service: 06/16/17 MR#: [id number] Acct: [id number] Name: RAMU DEWITT Rep #: [id number] : 1940 Provider: LUIS Sanders Age/Sex: 76/M Location: [facility] Status: Signed HPI HPI Details: RAMU [...] brachial Intake Visit Reasons: 3 M FU Liquor Commissioner Required: No Accompanied by: None Is patient [...] 12/12/16 [Rx Confirmed 06/14/17] Hydrocodone Bitart/Apap 5-325 [Latah 5/325] 1 tab PO Q6H PRN PRN #30 tab 12/12 [Rx Confirmed 06/14/17] apixaban 2.5 mg tablet 2.5 mg PO BID #14 tab 04/08/17 [Rx Confirmed 06/14/17] Ejection fraction %: 40 to 44 PFSH Medical History History of stroke (Chronic) 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 2. Atherosclerosis of andreafski coronary artery of andreafski heart witho ut angina pectoris I25.10 S/P [...] on any cholesterol lowering medication. 6 . section maintainer use of drug Z79.899 Plan - TARIQ [...] prior to saving. 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 COUNSELOR) Coding Level of Care Code Off vis,est,level 3 Diagnoses Cardiomyopathy, ischemic I25.5 Atherosclerosis of andreafski coronary artery of andreafski heart without angina pectoris I25.10 Persistent atrial fibr illation I48.1 Atrial fibrillation type: persistent Essential hypertension I10 Hypertension type: essential hypertension Mixed hyperlipidemia E78.2 Hyperlipidemia type: mixed hyperlipidemia group home us e of drug Z79.899 Coding Level of Care Code Off vis,est,level 3 Diagnoses Cardiomyopathy, ischemic I25.5 Atherosclerosis of andreafski coronary artery of andreafski heart without angina pectoris I25.10 Persi stent atrial fibrillation I48.1 Atrial fibrillation type: persistent Essential hypertension I10 Hypertension type: essential hypertension Mixed hyperlipidemia E78.2 Hyperlipidemia type: mixed hyperlipid emia section maintainer use of drug Z79.899 06/16/17 1139 <Electronically signed by Ramu NUNNC> Date Ramu Sanders NP-C 06/16/17 1417&am p;#60;Electronically signed by Jimi Greenfield MD> Cosigner Signature: Date (if applicable) Jimi Greenfield MD CC: Vicki Styles DO 08-Dec-2016 Emergency Department Summary Result: Comments: See Note; NOTES: [facility] Medical Records Department [address] [place] [address] Emergency Department Summary 12/08/16 1354 MR#: [id number] Acct: [id number] Name: RAMU DEWITT Rep #: [id number] : 1940 75 From: Robe Mary MD [...] problems, contact your Primary Care Provider. Call [facility] ([phone]) or r mayur to the closest Emergency Room. Call 911 if necessary. 12/08/16 1359 <Electronically signed by Robe Mary MD> Date Robe Mary MD Cosigner Signature (If Indicated): Date CC: Jimi Greenfield MD; Vicki Styles DO 08-Dec-2016 Knee 1 or 2 Views Result: Comments: See Note; NOTES: [facility] Imaging Services [address] [place] [address] Knee 1 or 2 Views MR#: [id number] Acct: [id number] Name: RAMU DEWITT Rep #: [id number] D OB: 1940 M 75 From: Shahab Carlos MD PCP: Vicki Styles DO Status: REG ER Study: Knee 1 or 2 Views Date of Exam: 12/08/16 Exam# [id number] Ordering Dr: Robe Mary MD STUDY: X-RAY [...] Shahab Carlos MD at 12:57 EDT Tel [phone], Service support , CC: Vicki Styles DO; Robe Mary MD Casting Room Operator: Signed 08-Dec-2016 Chest 1 View (Portable) Result: Comments: See Note; NOTES: [facility] Imaging Services [address] [place] [address] Chest 1 View (Portable) MR#: [id number] Acct: [id number] Name: RAMU DEWITT Rep #: [id number] : 1940 M 75 From: Shahab Carlos MD PCP: Vicki Styles DO Status: [facility] ER Study: Chest 1 View (Portable) Date of Exam: 12/08/16 Exam# [id number] Ordering Dr: Robe Mary MD STUDY: X- [...] Shahab Carlos MD at 12:58 EDT Tel [phone], Service support , CC: Vicki Styles DO; Robe Mary MD Casting Room Operator: Signed 07-Jan-2016 Chest 1 View (Portable) Result: Comments: See Note; NOTES: [facility] Imaging Services [address] [place] [address] Verdana 4d Chest 1 View (Portable) MR#: [id number] Acct: [id number] Name: RAMU DEWITT Rep #: [id number] : 1940 75 From: Shahab Carlos MD PCP: Vicki Styles DO Status: REG ER Study: Chest 1 View (Portable) Date of Exam: 01/07/16 Exam# [id number] Ordering Dr: Ron Buchanan MD STUDY: X-RAY [...] Shahab Carlos MD at 15:38 EDT Tel [phone], Service support [phone], CC: Vicki Styles DO; Jerel Buchanan MD Casting Room Operator: Signed 13-Nov-2015 Echocardiogram Complete Result: Comments: See Note; NOTES: [facility] Cardiovascular Services [address] [place] [address] Echo Complete 11/13/15 1006 MR#: [id number] Acct: [id number] Name: RAMU DEWITT Rep #: [id number] : 1940 74 From: Jimi Greenfield MD Attending Dr: Precious Cole Status: REG CLI Ordering Dr: Precious Cole Date: 11/13/15 Location: [facility] Sex: M C Admitted: Reas on For [...] Dictated: 11/13/15 1006 Date Transcribed: 11/13/15 1256 Casting Room Operator: Signed 08-Oct-2015 ELECTROCARDIOGRAM, COMPLETE (ECG) (87277) Result: [MEASUREMENTS ANALYSIS] Date of Test: 10/08/2015 09:07:11; Heart Rate: 98; [place] Interval: 0; QRS: 114; QT Interval: 372; Corrected QT Interval (QTc): 438; P Wave [place]: -90; QRS Wave [place]: -1; T Wave [place]: -33; Blood Pressure: 142/86 [ECG DIAGNOSTIC STATEMENTS] Date of Test: 10/08/2015 09:07:11; Summary: Atrial fibrillation -Nonspecific ST depression + Nonspecific T-abnormality -Nondiagnostic. ABNORMAL 09-Jul-2015 Chest 1 View (Portable) Result: Comments: See Note; NOTES: [facility] Imaging Services [address] [place] [address] Verdana 4d Chest 1 View (Portable) MR#: [id number] Acct: [id number] Name: RAMU MARTIN Rep #: [id number] : 1940 M 74 From: Noa Buchanan MD PCP: Vicki Styles DO Status: REG ER Study: Chest 1 View (Portable) Date of Exam: 07/09/15 Exam# [id number] Ordering Dr: Jerel Buchanan MD STUDY: X-RAY [...] at 17:21 EDT Tel , Service support [phone], RAD/Chest 1 View (Portable) IMPRESSION: New small pleural effusion with right b asilar lung consolidation. Persisting cardiomegaly. Electronically Signed: Noa Buchanan MD at 17:21 EDT Tel , Service support [phone], C C: Vicki Styles DO; Jerel Buchanan MD Casting Room Operator: Signed 24-May-2015 Nuclear Stress Test - Chemical Result: Comments: See Note; NOTES: [facility] Imaging Services [address] [place] [address] Verdana 4d Nuclear Stress Test - Chemical MR#: [id number] Acct: [id number] N ani: RAMU DEWITT Rep #: [id number] : 1940 74 From: Jimi Greenfield MD [...] present. Jimi Greenfield MD T: NTS JOB: [id number] <Electronically signed by Jimi Greenfield MD> Date Jimi Greenfield MD CC: Vicki Neil NG Date Dictated: 05/24/15 1253 D ate Transcribed: 05/24/15 1253 Casting Room Operator: Signed 18-Apr-2015 Chest 1 View (Portable) Result: Comments: See Note; NOTES: [facility] Imaging Services [address] [place] [address] Verdana 4d Chest 1 View (Portable) MR#: [id number] Acct: [id number] Name: RAMU MARTIN Rep #: [id number] : 1940 M 74 From: Shahab Carlos MD PCP: Vicki Styles DO Status: REG ER Study: Chest 1 View (Portable) Date of Exam: 04/18/15 Exam# [id number] Ordering D r: Ros Zuniga STUDY: X-RAY [...] Shahab Carlos MD at 13:57 EST Tel [phone], Service support [phone], RAD/Chest 1 View (P ortable) IMPRESSION: Thyromegaly and mild degree of CHF with bibasilar atelectasis. Electronically Signed: Shahab Carlos MD at 13:57 EST Tel [phone], Service support [phone], CC: Ros Zuniga; Vicki Styles DO Casting Room Operator: Signed 18-Apr-2015 EKG (33469) Comments: afib with RVR-- 150 -pt admits he hasnt taken bystolic >30 day Result: [MEASUREMENTS ANALYSIS] Date of Test: 04/18/2015 11:50:46; Heart Rate: 150; [place] Interval: -612; QRS: 96; QT Interval: 302; Corrected QT Interval (QTc): 459; P Wave [place]: 1; QRS Wave [place]: 15; T Wave [place] : -90; Blood Pressure: 124/82 [ECG DIAGNOSTIC STATEMENTS] Date of Test: 04/18/2015 11:50:46; Summary: Possible atrial fibrillation -Inferior infarct -age undetermined. -Nonspecific ST depression -Nondiagnostic. ABNORMAL -May-2014 Sleep Study Report Result: Comments: See Note; NOTES: [facility] SLEEP DISORDER CENTER [address] [place] [address] Polysomnography with NCPAP MR#: [id number] Acct: [id number] Name: RAMU DEWITT Rep #: [id number] : 1940 73 From: Cezar Escalante MD PCP: Vicki Styles DO Status: REG CLI Ordering DrLaquita: Dana Osborne VARNISH DIPPER-C Date: 05/01/14 Sex: M C REFERRING PHYSICIAN: COREY Shah SLEEP HISTORY: This is a CPAP titration study performed on this 73-year-old male with a body mass index of 36.5 and an [place] Sleepiness Scale score of 8. Diagnostic polysomnogram [...] version). Please note that a reference to [facility] AHI in this report is consistent with the current Hypopnea definition according to Medicare Criteria and an [facility] AHI reference is consistent with the current Hypopnea definition according to the AASM criteria. PROCEDURE: The study was attended continuously by a certification technician. Monitored parameters included left and right [...] Study Report Result: Comments: See Note; NOTES: [facility] SLEEP DISORDER CENTER [address] [place] [address] Polysomnography MR#: [id number] Acct: [id number] Name: RAMU DEWITT Rep #: [id number] : 1940 73 From: Dillon Miner MD PCP: Vicki Styles DO Status: REG CLI Ordering DrLaquita: Vicki Styles DO Date: 03/08/14 Sex: M C REFERRING PHYSICIAN: Dr. Styles. SLEEP HIS TORY: The patient is a 73-year-old gentleman with a calculated body mass index of 36.5 and an [place] Sleepiness Scale score of 8/24. He complains [...] version). Please note that a reference to [facility] AHI in this report is consistent with the current Hypopnea definition according t o Medicare Criteria and an [facility]AS AHI reference is consistent with the current Hypopnea definition according to the AASM criteria. PROCEDURE: The study was attended continuously by a certification technician. Monitored parameters included left and right EOG, frontal, central, and occipital EEG, mental and submental EMG, left and right anterior tibialis EMG, signal ECG waveform, snore, continuous airflow w ith thermistor and nasal pressure transducer, chest and abdominal plethysmography efforts, oxygen saturation with heart rate, and body positioning with video monitoring. SLEEP STUDY DATA: The [facility] polysomnogram began at 0939:27 p.m. and ended at 147719 a.m. for a total recording time of [...] Co-signature (if applicable) Date Signed 28-Dec-2013 Spirometry (28861) Result: 29-Aug-2013 Chest PA and Lateral Result: Comments: See Note; NOTES: [facility] Imaging Services [address] [place] [address] Radiology Report MR#: [id number] Acct: [id number] Name: RAMU DEWITT Rep #: [id number] : 1940 M 72 From: Shahab Carlos MD PCP: Vicki Styles DO Status: [facility] CLI Study: Chest PA and Lateral Date of Exam: 08/29/13 Exam# [id number] Ordering Dr: Vicki Styles DO STUDY: X-RAY [...] Shahab Carlos MD at 15:06 EDT Tel [phone], Service support [phone], CC: Vicki Styles DO Casting Room Operator: Signed 24-Aug-2013 Spirometry (74735) Comments: obstruction present Result: Social History Name Dates Details Alcohol Use Comments: Occasional alcohol use Status: Active Caffeine Use Comments: 6 - 8 Glasses per day Status: Active Non Smoker/No Tobacco Use Status: Active Tobacco use: Former smoker. Comments: 08/26/11 Status: Active Smoking Status Name Dates Details Former smoker Vital Signs Date Test Result Details 81-Ygb-916556:13 Comments: [facility] and had a glaucoma test donehearing wnl Pulse 50 /min Comments: Pattern: Regular Respiration [...] kg/m2 Body Surface Area Calculated 2.08 m2 1-Uri-391163:19 Pulse 68 /min Comments: Pattern: Regular Respiration [...] kg/m2 Body Surface Area Calculated 2.08 m2 3-Kxk-540681:08 Pulse 62 /min Comments: Pattern: Regular Respiration [...] kg/m2 Body Surface Area Calculated 2.06 m2 08-Uqx-525923:25 Pulse 104 /min Comments: Pattern: Regular Respiration [...] kg/m2 Body Surface Area Calculated 2.17 m2 25-Lep-996965:03 Pulse 61 /min Comments: Pattern: Regular Respiration [...] Surface Area Calculated 2.13 m2 :47 Comments: [facility] and had a glaucoma test [...] kg/m2 Body Surface Area Calculated 2.13 m2 61-Lnw-718712:09 Pulse 60 /min Comments: Pattern: Regular Respiration [...] kg/m2 Body Surface Area Calculated 2.18 m2 86-Urg-314905:15 Pulse 85 /min Comments: Pattern: Regular Respiration [...] Cuff Location: Left Arm; Cuff Size: Standard :16 Temperature 97 f Comments: Method: Tympanic Pulse [...] :19 Comments: before- BP 142/89 Sp02- 98% X-65vbrpy-OT 150/84 Sp02 97% P-60 Temperature 97.9 f [...] 0.00 cm Results Date Description Value Details 96-Ven-510168:06 CBC W/Diff, Automated Comments: [facility] [address] [place], [place], [id number] Absolute Lymph 1.37 {X10_3/ul} (Normal) Range: 0.83-4.51 [...] 4.6-6.2 WBC 7.1 K/mm3 (Normal) Range: 4.4-11.0 43-Srt-815192:06 Comprehensive Metabolic Profil Comments: [facility] [address] [place], [address] GAP 12 (Normal) Range: 5-15 CO2 26.0 [...] A.D.A. criteria.Please note revised GLUCOSE reference range zgoqyhgad11/02/2018. 28-Zzm-978304:06 Uric Acid Comments: [facility] [address] [place], [place], [address] URIC 9.2 mg/dL (Abnormal) Range: 3.5-7.2 Comments: The drugs N-Acetylcysteine and Metamizole may falselydepress this assay. 49-Lvs-119457:39 CBC W/Diff, Automated Comments: [facility] [address] [place], [place], [address] Absolute Lymph 1.40 {X10_3/ul} (Normal) Range: 0.83-4.51 [...] 4.6-6.2 WBC 6.4 K/mm3 (Normal) Range: 4.4-11.0 74-Zjv-866684:39 Comprehensive Metabolic Profil Comments: [facility] [address], [place], [address] GAP 8 (Normal) Range: 5-15 CO2 30.0 [...] A.D.A. criteria.Please note revised GLUCOSE reference range kghraoxau15/02/2018. 47-Xgg-553059:39 Uric Acid Comments: [facility] [address] [place], [place], [address] URIC 9.1 mg/dL (Abnormal) Range: 3.5-7.2 Comments: The drugs N-Acetylcysteine and Metamizole may falselydepress this assay. 2-Fsd-315748:57 HgA1C , Office (87688) HgA1C , Office 6.9 % (Normal) Range: 4.6 - 7.1 9-Jpe-918929:57 Blood Glucose , Office (48808) Blood Glucose , Office 173 (Normal) 66-Ebf-447668:26 CBC W/Diff, Automated Comments: [facility] [address] [place], [place], [address] Absolute Lymph 1.30 {X10_3/ul} (Normal) Range: 0.83-4.51 [...] 4.6-6.2 WBC 9.0 K/mm3 (Normal) Range: 4.4-11.0 62-Inx-303265:26 CCP IgG Antibodies Comments: [facility] (refer to report for specific site)refer to report for address and phone number ANTI-CCP 295722 8 {units} (Normal) Range: 0-19 Comments: Negative <20 Weak positive 20 - 39 Moderate positive 40 - 59 Strong positive >59 98-Mne-032794:26 Comprehensive Metabolic Profil Comments: [facility] [address] [place], [place], [address] GAP 9 (Normal) Range: 5-15 CO2 28.0 [...] A.D.A. criteria.Please note revised GLUCOSE reference range fjxmzeqbo39/02/2018. 90-Fgb-481711:26 CRP Comments: [facility] [address] [place], [place], [address] C-REACTIVE PROT 8.60 mg/L (Abnormal) Range: 0.0-3.0 Comments: C-Reactive Protein (CRP) provides useful information for thediagnosis, therapy and monitoring of inflammatory processesand associated diseases. For the evaluation of Relative Riskfor Cardiovascular Dise ase, a High Sensitivity CRP (HSCRP)should be ordered. 89-Tbl-384180:26 Erythrocyte Sed Rate Comments: [facility] [address] [place], [place], [address] SED RATE 18 mm/h (Normal) Range: 0-20 48-Sbl-654529:26 Hep B Surface Antibodies Comments: [facility] (refer to report for specific site)refer to report for address and phone number Hep B Patricia AB Non Reactive (Normal) Comments: Non Reactive: Inconsistent with immunity, less than 10 mIU/mL Reactive: Consistent with immunity, greater than 9.9 mIU/ mL 71-Pqz-452247:26 Hepatitis B Surface Ag Comments: [facility] (refer to report for specific site)refer to report for address and phone number HB SURF AG Negative (Normal) Comments: Performed at: [facility] [address] [id number] Director: Christopher Molina PhD, Phone: [phone] at: [address] [address]Edw Director: Dillon Falk MD, Phone: [phone] 64-Ovd-543922:26 Hepatitis C Antibodies Comments: [facility] (refer to report for specific site)refer to report for address and phone number HEP C AB <0.1 {s/co_ratio} (Normal) Range: 0.0-0.9 Comments: Negative: < 0.8 Indeterminate: 0.8 - 0.9 Positive: > 0.9 The CDC recommends that a positive HCV antibody result be followed up with a HCV Nucleic Acid Amplification test (768977). 71-Glj-481325:26 Rheumatoid Factor Comments: [facility] Nmhfonukpk5614 [place], [place], [address] RHEUMATOID FAC < 10.0 {IU/mL} (Normal) 61-Cja-846401:26 Uric Acid Comments: [facility] Ksjyrhqcni0423 [place], [place], [address] URIC 10.7 mg/dL (Abnormal) Range: 3.5-7.2 Comments: The drugs N-Acetylcysteine and Metamizole may falselydepress this assay. 48-Bou-782459:20 CCP ANTIBODY (79798) Comments: PATIENT NOT FASTINGPERFORMED BY: [facility] Aalchf5487 [facility] [id number] BY: [address] [id number] CCP Antibodies IgG/IgA 8 {units} (Normal) Range: 0-19 Comments: Negative <20 Weak positive 20 - 39 Moderate positive 40 - 59 Strong positive >59 14-Vnk-992346:20 SED RATE ERYTHROCYTE Comments: PATIENT NOT FASTINGPERFORMED BY: [facility] [place] [address] [id number] BY: [address] [id number] (51158) Sedimentation Rate-Westergren 32 mm/h (Abnormal) Range: 0-30 39-Xxm-002870:20 C-REACTIVE PROTEIN Comments: PATIENT NOT FASTINGPERFORMED BY: [place] 0848270 [facility] [id number] BY: [address] [id number] (16324) C-Reactive Protein, Quant 24.6 mg/L (Abnormal) Range: 0.0-4.9 98-Iox-460363:20 RHEUMATOID FACTOR-QUANT Comments: PATIENT NOT FASTINGPERFORMED BY: [place] 0848270 [facility] [place] [id number] BY: [address] [id number] ([id number]) RA Latex Turbid. <10.0 {IU/mL} (Normal) Range: 0.0-13.9 99-Ept-166735:20 THAIS (ANTINUCLEAR ANTIBODY) Comments: PATIENT NOT FASTINGPERFORMED BY: [address] [id number] BY: [address] [id number] (76583) THAIS Direct Negative (Normal) 7-Vay-643954:59 MAGNESIUM (56626) Comments: PATIENT WAS FASTINGPERFORMED BY: [place] 0848270 [facility] [id number] Magnesium, Serum 2.1 mg/dL (Normal) Range: 1.6-2.3 5-Msf-568990:59 PHOSPHORUS (63404) Comments: PATIENT WAS FASTINGPERFORMED BY: [facility]6370 [facility] [id number] Phosphorus, Serum 3.1 mg/dL (Normal) Range: 2.5-4.5 6-Jbz-863585:59 PARATHORMONE (97506) Comments: PATIENT WAS FASTINGPERFORMED BY: [facility]6370 [facility] [id number] PTH, Intact 67 pg/mL (Abnormal) Range: 15-65 6-Bse-115193:59 CALCIFEDIOL (45205) Comments: PATIENT WAS FASTINGPERFORMED BY: [facility]6370 [facility] [id number] Vitamin D, 25-Hydroxy 21.5 ng/mL (Abnormal) Range: 30.0-100.0 Comments: Vitamin D deficiency has been defined by the [place] of[place]icine and an Endocrine Society practice guideline as alevel of serum 25-OH vitamin D less than 20 ng/mL (1,2).The Endocrine Society went on to further define vitamin Dinsufficiency as a level between 21 and 29 ng/mL (2).1. IOM ([place] of [employer]). 2010. Dietary reference intakes for calcium and D. [place]: The National Academies Press.2. Marcelle MF, Justin NC, Amira ELIAS, et al. Evaluation, treatment, and prevention of vitamin D deficiency: an Endocrine Society clinical practice guideline. JCEM. 2010; 96(7):1911-30. 1-Jth-642696:59 TSH (48549) Comments: PATIENT WAS FASTINGPERFORMED BY: [employer] Sqkecp5531 [facility] [id number] TSH 3.200 {uIU/mL} (Normal) Range: 0.450-4.500 9-Pks-104052:59 METABOLIC PANEL, COMPREHENSIVE Comments: PATIENT WAS FASTINGPERFORMED BY: iStorezBristol-Myers Squibb Children's HospitalHcpzzq4056 [facility] [id number] (52509) ALT (SGPT) 13 [iU]/L (Normal) Range: 0-44 [...] Glucose, Serum 166 mg/dL (Abnormal) Range: 65-99 8-Krz-017926:59 LIPID PANEL (94410) Comments: PATIENT WAS FASTINGPERFORMED BY: [facility] Chic70 [facility]Car[facility] [id number] LDL/HDL Ratio 2.4 {ratio_units} (Normal) Range: 0.0-3.6 Comments: LDL/HDL Ratio Men Women 1/2 Avg.Risk 1.0 1.5 Av g.Risk 3.6 3.2 2X Avg.Risk 6.2 5.0 3X Avg.Risk 8.0 6.1 LDL Cholesterol Calc 101 mg/dL (Abnormal) Range: 0-99 VLDL Cholesterol Bharat 28 mg/dL (Normal) Range: 5-40 HDL Cholesterol 42 mg/dL (Normal) Triglycerides 139 mg/dL (Normal) Range: 0-149 Cholesterol, Total 171 mg/dL (Normal) Range: 100-199 0-Upz-242993:59 CBC W/AUTO DIFF WBC (71361) Comments: PATIENT WAS FASTINGPERFORMED BY: [facility]ic70 [facility]CowUNC Health [facility] [id number] Immature Grans (Abs) 0.0 {x10E3/uL} (Normal) Range: [...] (Normal) Range: 3.4-10.8 :51 HgA1C , Office (99245) HgA1C , Office 7.0 % (Normal) Range: 4.6 - 7.1 :51 Blood Glucose , Office (97630) Blood Glucose , Office 197 (Normal) 7-Fxz-592781:35 Basic Metabolic Profile (BMP) Comments: 'TROP' Serial specimen #1, #2, #3, or #4: 1[facility] Enowsibxkf0088 [place], [place], [address] GAP 11 (Normal) Range: 5-15 CO2 25.0 [...] 126 mg/dLsuggests DIABETES MELLITUS per A.D.A. criteria. 8-Fea-657530:35 BNP,B-Type NATRIURETIC PEPTIDE Comments: [facility] Fcigmpircd3272 [facility] [place], [place], [address] B-TYPE KAE PEP 1319.4 pg/mL (Abnormal) Range: 0-100 :35 CBC W/Diff, Automated Comments: [facility] Crbofgilji9918 [facility] [place], [place], [address] Absolute Lymph 0.87 {X10_3/ul} (Normal) Range: 0.83-4.51 [...] 4.6-6.2 WBC 12.7 K/mm3 (Abnormal) Range: 4.4-11.0 6-Vrl-410361:35 Troponin-I Comments: 'TROP' Serial specimen #1, #2, #3, or #4: [address] [place] [address] [address]qz[address] [place], [address] TROPONIN-I 0.03 ng/mL (Normal) Comments: TROPONIN-I EXPECTED VALUES <0.05 NEGATIVE 0.06 - 0.59 AT RISK OF ME > OR = 0.60 SUGGEST ME 7-Mhf-506040:35 Microscopic Examination Comments: PATIENT WAS FASTINGPERFORMED BY: [facility] Chic70 [facility]sterCar[facility] [id number] Bacteria Few (Normal) Mucus Threads Present (Normal) Cast Type Hyaline casts (Normal) Casts Present {/lpf} (Abnormal) Epithelial Cells (non renal) None seen {/hpf} (Normal) Range: 0 - 10 RBC 0-2 {/hpf} (Normal) Range: 0 - 2 WBC 0-5 {/hpf} (Normal) Range: 0 - 5 9-Jdn-282562:00 PSA (PROSTATE SPECIFIC Comments: send copy to dr bianchi; PATIENT NOT FASTINGPERFORMED BY: [facility] Chic70 PurpleCowUNC Health Southeastern [id number] ANTIGEN) (V76.44) Prostate Specific Ag, 2.1 ng/mL (Normal) Range: 0.0-4.0 Serum Comments: Temo ECLIA methodology. .According to the [place] [employer], Serum PSA shoulddecrease and remain at undetectable levels after radicalprostatectomy. The AUA defines biochemical recurrence as an initialPSA value 0.2 ng/mL or greater followed by a subsequent confirmatoryPSA value 0.2 ng/mL or greater.Values obtained with shun lentzent assay methods or kits cannot be usedinterchangeably. Results cannot be interpreted as absolute evidenceof the presence or absence of malignant disease. :35 TSH (96036) Comments: PATIENT WAS FASTINGPERFORMED BY: [facility]etAsp[facility] Hospital6370 [facility] [id number] TSH 4.070 {uIU/mL} (Normal) Range: 0.450-4.500 :35 URINALYSIS, W/ MICRO (91434) Comments: PATIENT WAS FASTINGPERFORMED BY: iStorezBristol-Myers Squibb Children's HospitalTpxmyo4101 [facility] [id number]; can review at next appt Microscopic Examination See below: (Normal) Comments: Microscopic was indicated and was performed. Nitrite, Urine Negative (Normal) Urobilinogen,Semi-Qn 1.0 mg/dL (Normal) Range: 0.2-1.0 Bilirubin Negative (Normal) Occult Blood Negative (Normal) Ketones Negative (Normal) Glucose Negative (Normal) Protein 1+ (Abnormal) WBC Esterase Negative (Normal) Appearance Clear (Normal) Urine-Color Yellow (Normal) pH 7.0 (Normal) Range: 5.0-7.5 Specific [place] 1.013 (Normal) Range: 1.005-1.030 :35 MICROALBUMIN: CREATININE RATIO Comments: PATIENT WAS FASTINGPERFORMED BY: iStorezCHRISTUS St. Vincent Physicians Medical CenterEjrewu8525 [facility] [id number] (49015) AND (09416) Microalb/Creat Ratio 136.1 {mg/g_creat} (Abnormal) Range: 0.0-30.0 Microalbumin, Urine 118.3 ug/mL (Normal) Creatinine, Urine 86.9 mg/dL (Normal) :35 METABOLIC PANEL, COMPREHENSIVE Comments: PATIENT WAS FASTINGPERFORMED BY: iStorezBristol-Myers Squibb Children's HospitalUvlrso2283 [facility] [id number] (92482) ALT (SGPT) 10 [iU]/L (Normal) Range: 0-44 [...] Glucose, Serum 126 mg/dL (Abnormal) Range: 65-99 8-Qfi-170935:35 LIPID PANEL (97730) Comments: PATIENT WAS FASTINGPERFORMED BY: LabCoBristol-Myers Squibb Children's HospitalKrdttd0240 [facility] [id number] LDL/HDL Ratio 2.4 {ratio_units} (Normal) Range: 0.0-3.6 Comments: LDL/HDL Ratio Men Women 1/2 Avg.Risk 1.0 1.5 Av g.Risk 3.6 3.2 2X Avg.Risk 6.2 5.0 3X Avg.Risk 8.0 6.1 LDL Cholesterol Calc 99 mg/dL (Normal) Range: 0-99 VLDL Cholesterol Bharat 25 mg/dL (Normal) Range: 5-40 HDL Cholesterol 41 mg/dL (Normal) Triglycerides 123 mg/dL (Normal) Range: 0-149 Cholesterol, Total 165 mg/dL (Normal) Range: 100-199 3-Aqj-023235:35 CBC W/AUTO DIFF WBC (79726) Comments: PATIENT WAS FASTINGPERFORMED BY: [facility] Hhcewb2071 [facility] [id number] Immature Grans (Abs) 0.0 {x10E3/uL} (Normal) Range: [...] 4.14-5.80 WBC 6.7 {x10E3/uL} (Normal) Range: 3.4-10.8 7-Jgi-966547:35 CALCIFIDIOL (90549) VIT D 25 Comments: PATIENT WAS FASTINGPERFORMED BY: LabCoBristol-Myers Squibb Children's HospitalZnnxda2724 [facility] [id number] Vitamin D, 25-Hydroxy 37.2 ng/mL (Normal) Range: 30.0-100.0 Comments: Vitamin D deficiency has been defined by the [place] of[place] and an Endocrine Society practice guideline as alevel of serum 25-OH vitamin D less than 20 ng/mL (1,2).The Endocrine Society went on to further define vitamin Dinsufficiency as a level between 21 and 29 ng/mL (2).1. IOM ([place] [employer]). 2010. Dietary reference intakes for calcium and D. [place]: The National [employer] Press.2. Justin Berkowitz, Amira ELIAS, et al. Evaluation, treatment, and prevention of vitamin D deficiency: an Endocrine Society clinical practice guideline. JCEM. 2010; 96(7):1911-30. 2-Nmy-975861:21 HgA1C , Office (01572) HgA1C , Office 6.2 % (Normal) Range: 4.6 - 7.1 :21 Blood Glucose , Office (53137) Blood Glucose , Office 162 (Normal) :56 Microscopic Examination Comments: PATIENT WAS FASTINGPERFORMED BY: [employer]6370 [facility] [id number] Bacteria None seen (Normal) Mucus Threads Present (Normal) Cast Type Hyaline casts (Normal) Casts Present {/lpf} (Abnormal) Epithelial Cells (non renal) 0-10 {/hpf} (Normal) Range: 0 - 10 RBC 0-2 {/hpf} (Normal) Range: 0 - 2 WBC None seen {/hpf} (Normal) Range: 0 - 5 :56 CALCIFIDIOL (97066) VIT D 25 Comments: PATIENT WAS FASTINGPERFORMED BY: Prestodiag Dzhidy0733 [facility] [id number] Vitamin D, 25-Hydroxy 34.6 ng/mL (Normal) Range: 30.0-100.0 Comments: Vitamin D deficiency has been defined by the [place] of[place] and an Endocrine Society practice guideline as alevel of serum 25-OH vitamin D less than 20 ng/mL (1,2).The Endocrine Society went on to further define vitamin Dinsufficiency as a level between 21 and 29 ng/mL (2).1. IOM ([place] [employer]). 2010. Dietary reference intakes for calcium and D. [place]: The National Academies Press.2. Justin Berkowitz, Maxim-Yong ELIAS, et al. Evaluation, treatment, and prevention of vitamin D deficiency: an Endocrine Society clinical practice guideline. JCEM. 2010; 96(7):5591-30. 1-Ffm-609613:56 TSH (97987) Comments: PATIENT WAS FASTINGPERFORMED BY: CourtanetSsm Saint Mary'S Health CenterWdznuv4355 [facility] [place] [id number] TSH 5.530 {uIU/mL} (Abnormal) Range: 0.450-4.500 2-Axc-935541:56 URINALYSIS, W/ MICRO (55875) Comments: PATIENT WAS FASTINGPERFORMED BY: [facility]etAsp[facility] Hospital6370 [facility] [id number] Microscopic Examination See below: (Normal) Comments: Microscopic was indicated and was performed. Microscopic Examination MICRON (Normal) Comments: Microscopic follows if indicated. Nitrite, Urine Negative (Normal) Urobilinogen,Semi-Qn 1.0 mg/dL (Normal) Range: 0.2-1.0 Bilirubin Negative (Normal) Occult Blood Negative (Normal) Ketones Negative (Normal) Glucose Negative (Normal) Protein Negative (Normal) WBC Esterase Negative (Normal) Appearance Clear (Normal) Urine-Color Yellow (Normal) pH 7.0 (Normal) Range: 5.0-7.5 Specific [place] 1.009 (Normal) Range: 1.005-1.030 5-Tsx-838854:56 MICROALBUMIN: CREATININE RATIO Comments: PATIENT WAS FASTINGPERFORMED BY: [facility] Zkzdow5911 [facility] [id number] (93467) AND (07869) Microalb/Creat Ratio <12.1 {mg/g_creat} (Normal) Range: 0.0-30.0 Microalbumin, Urine <3.0 ug/mL (Normal) Creatinine, Urine 24.7 mg/dL (Normal) :56 METABOLIC PANEL, COMPREHENSIVE Comments: PATIENT WAS FASTINGPERFORMED BY: [employer] Utcdlx8053 [facility] [id number] (34757) ALT (SGPT) 8 [iU]/L (Normal) Range: 0-44 [...] Glucose, Serum 109 mg/dL (Abnormal) Range: 65-99 1-Gzv-351214:56 CBC W/AUTO DIFF WBC (67750) Comments: PATIENT WAS FASTINGPERFORMED BY: LabCoBristol-Myers Squibb Children's HospitalIpmvzr7233 [facility] [id number] Immature Grans (Abs) 0.0 {x10E3/uL} (Normal) Range: [...] 4.14-5.80 WBC 6.9 {x10E3/uL} (Normal) Range: 3.4-10.8 4-Mrv-388139:56 LIPID PANEL (13727) Comments: PATIENT WAS FASTINGPERFORMED BY: LabCoBristol-Myers Squibb Children's HospitalWixlkv9324 [facility] [id number] LDL/HDL Ratio 2.3 {ratio_units} (Normal) Range: 0.0-3.6 [...] (Normal) Range: 100-199 :36 HgA1C , Office (48400) HgA1C , Office 6.4 % (Normal) Range: 4.6 - 7.1 :36 Blood Glucose , Office (33089) Blood Glucose , Office 129 (Normal) :20 Blood Glucose , Office (61006) Blood Glucose , Office 111 (Normal) 13-Fir-159133:20 HgA1C , Office (39521) HgA1C , Office 6.4 % (Normal) Range: 4.6 - 7.1 :25 CBC W/AUTO DIFF WBC (21165) Comments: PATIENT NOT FASTINGPERFORMED BY: [facility] Blfcpw1107 [facility] [id number] Immature Grans (Abs) 0.0 {x10E3/uL} (Normal) Range: [...] 4.14-5.80 WBC 6.0 {x10E3/uL} (Normal) Range: 3.4-10.8 08-Eke-817497:25 METABOLIC PANEL, COMPREHENSIVE Comments: PATIENT NOT FASTINGPERFORMED BY: LabCoBristol-Myers Squib[facility] Children's HospitalHzsgjm0384 [facility] [id number] (64201) ALT (SGPT) 13 [iU]/L (Normal) Range: 0-44 [...] Glucose, Serum 158 mg/dL (Abnormal) Range: 65-99 5-Pyh-623060:03 Basic Metabolic Profile (BMP) Comments: 'TROP' Serial specimen #1, #2, #3, or #4: 1[facility] Eofumppsrb[address] [place], [address] GAP 6 (Normal) Range: 5-15 [...] 126 mg/dLsuggests DIABETES MELLITUS per A.D.A. criteria. 2-Ebb-574543:03 BNP,B-Type NATRIURETIC PEPTIDE Comments: [facility] J[address] [place], [address] B-TYPE KAE PEP 732.8 pg/mL (Abnormal) Range: 0-100 0-Lpj-191456:03 CBC W/Diff, Automated Comments: [facility] Objnulctuk[address] [place], [place], [address] Absolute Lymph 0.93 {X10_3/ul} (Normal) Range: 0.83-4.51 [...] 4.6-6.2 WBC 6.8 K/mm3 (Normal) Range: 4.4-11.0 8-Vjl-295871:03 Liver Profile Comments: 'TROP' Serial specimen #1, #2, #3, or #4: 1[facility] Iiipatrfhi[address] [place], [place], [address] D BILI 0.39 mg/dL (Abnormal) Range: 0.00-0.30 T BILI 1.40 mg/dL (Abnormal) Range: 0.20-1.00 ALT 16 U/L (Normal) Range: 12-78 ALK P 90 U/L (Normal) Range: 50-136 AST 18 U/L (Normal) Range: 15-37 GLOB 3.7 g/dL (Abnormal) Range: 2.3-3.5 ALB 3.4 g/dL (Normal) Range: 3.4-5.0 T PROT 7.1 g/dL (Normal) Range: 6.4-8.2 8-Cmf-332436:03 Troponin-I Comments: 'TROP' Serial specimen #1, #2, #3, or #4: 1[facility] Ozpvxfwpyo7270 [facility] [place], [place], [address] TROPONIN-I < 0.02 ng/mL (Normal) Comments: TROPONIN-I EXPECTED VALUES <0.05 NEGATIVE 0.06 - 0.59 AT RISK OF ME > OR = 0.60 SUGGEST ME 9-Bdv-194914:07 Urinalysis, Office (31270) UA - LEUKOCYTE ESTERASE Negative (Normal) UA - NITRITE Negative (Normal) URINE UROBILINGN KATELIN TIMED 4 mg/dL (Normal) UA - PROTEIN 30 mg/dL (Normal) UA - PH 7 (Normal) UA - BLOOD Negative (Normal) UA - SPECIFIC GRAVITY 1.020 (Normal) UA - KETONES Negative mg/dL (Normal) UA - BILIRUBIN Negative (Normal) UA - GLUCOSE Negative (Normal) 54-Vgc-317861:59 HgA1C , Office (07437) HgA1C , Office 6.3 % (Normal) Range: 4.6 - 7.1 00-Sbr-455171:59 Blood Glucose , Office (26733) Blood Glucose , Office 177 (Normal) 32-Zed-75215:44 Basic Metabolic Profile (BMP) Comments: [facility] Ebufrhemyv0892 [facility] [place], [address] GAP 7 (Normal) Range: 5-15 [...] 126 mg/dLsuggests DIABETES MELLITUS per A.D.A. criteria. 6-Uap-448885:32 Microscopic Examination Comments: PATIENT NOT FASTINGPERFORMED BY: Prestodiag Etfzwa4999 [facility] [id number] Bacteria None seen (Normal) Mucus Threads Present (Normal) Cast Type Hyaline casts (Normal) Casts Present {/lpf} (Abnormal) Epithelial Cells (non renal) 0-10 {/hpf} (Normal) Range: 0 - 10 RBC 0-2 {/hpf} (Normal) Range: 0 - 2 WBC 0-5 {/hpf} (Normal) Range: 0 - 5 7-Lod-797206:32 CALCIFIDIOL (40226) VIT D 25 Comments: PATIENT NOT FASTINGPERFORMED BY: [employer] Arqoma9319 [facility] [id number] Vitamin D, 25-Hydroxy 34.1 ng/mL (Normal) Range: 30.0-100.0 Comments: Vitamin D deficiency has been defined by the [place] of[place] and an Endocrine Society practice guideline as alevel of serum 25-OH vitamin D less than 20 ng/mL (1,2).The Endocrine Society went on to further define vitamin Dinsufficiency as a level between 21 and 29 ng/mL (2).1. IOM ([place] of [employer]). 2010. Dietary reference intakes for calcium and D. [place]: The National Academies Press.2. Marcelle SEQUEIRA, Justin PURCELL, Amira ELIAS, et al. Evaluation, treatment, and prevention of vitamin D deficiency: an Endocrine Society clinical practice guideline. JCEM. 2010; 96(7):1911-30. 8-Xct-179082:32 TSH (36985) Comments: PATIENT NOT FASTINGPERFORMED BY: [facility]6370 [facility] [id number] TSH 5.190 {uIU/mL} (Abnormal) Range: 0.450-4.500 0-Vsh-669981:32 URINALYSIS, W/ MICRO (27825) Comments: PATIENT NOT FASTINGPERFORMED BY: [facility]6370 [facility] [id number] Microscopic Examination See below: (Normal) Comments: Microscopic was indicated and was performed. Microscopic Examination MICRON (Normal) Comments: Microscopic follows if indicated. Nitrite, Urine Negative (Normal) Urobilinogen,Semi-Qn 1.0 mg/dL (Normal) Range: 0.2-1.0 Bilirubin Negative (Normal) Occult Blood Negative (Normal) Ketones Negative (Normal) Glucose Negative (Normal) Protein Trace (Normal) WBC Esterase Negative (Normal) Appearance Clear (Normal) Urine-Color Yellow (Normal) pH 6.5 (Normal) Range: 5.0-7.5 Specific [place] 1.019 (Normal) Range: 1.005-1.030 :32 MICROALBUMIN: CREATININE RATIO Comments: PATIENT NOT FASTINGPERFORMED BY: [facility]6370 [facility] [id number] (62850) AND (11152) Microalb/Creat Ratio 43.8 {mg/g_creat} (Abnormal) Range: 0.0-30.0 Microalbumin, Urine 51.0 ug/mL (Normal) Creatinine, Urine 116.5 mg/dL (Normal) :32 METABOLIC PANEL, COMPREHENSIVE Comments: PATIENT NOT FASTINGPERFORMED BY: [facility]6370 [facility] [id number] (02879) ALT (SGPT) 13 [iU]/L (Normal) Range: 0-44 [...] Glucose, Serum 122 mg/dL (Abnormal) Range: 65-99 3-Cre-558642:32 LIPID PANEL (76139) Comments: PATIENT NOT FASTINGPERFORMED BY: LabCoBristol-Myers Squibb Children's HospitalFquevl9169 [facility] [id number] LDL/HDL Ratio 1.9 {ratio_units} (Normal) Range: 0.0-3.6 [...] Cholesterol, Total 145 mg/dL (Normal) Range: 100-199 :32 CBC W/AUTO DIFF WBC Comments: PATIENT NOT FASTINGPERFORMED BY: [facility]6370 [facility] [id number] Information: [id number] (85272) Immature Grans (Abs) 0.0 {x10E3/uL} (Normal) Range: [...] 4.14-5.80 WBC 6.5 {x10E3/uL} (Normal) Range: 3.4-10.8 1-Sba-033142:32 PSA (PROSTATE SPECIFIC Comments: send copy to dr mast; PATIENT NOT FASTINGPERFORMED BY: [facility]6370 [facility] [id number] ANTIGEN) (V76.44) Prostate Specific Ag, 2.1 ng/mL (Normal) Range: 0.0-4.0 Serum Comments: Temo ECLIA methodology. .According to the [place] [employer], Serum PSA shoulddecrease and remain at undetectable levels after radicalprostatectomy. The AUA defines biochemical recurrence as an initialPSA value 0.2 ng/mL or greater followed by a subsequent confirmatoryPSA value 0.2 ng/mL or greater.Values obtained with d ifferent assay methods or kits cannot be usedinterchangeably. Results cannot be interpreted as absolute evidenceof the presence or absence of malignant disease. 22-Tlc-483628:20 Metabolic Panel, Basic Comments: PATIENT NOT FASTINGPERFORMED BY: LabCoBristol-Myers Squibb Children's HospitalZmqhgh0697 [facility] [id number] Information: [id number] (09465) Calcium, Serum 9.0 mg/dL (Normal) Range: 8.6-10.2 [...] Glucose, Serum 90 mg/dL (Normal) Range: 65-99 8-Snz-941855:26 BNP,B-Type NATRIURETIC PEPTIDE Comments: [facility] Tbcsirnhuo[address] [facility] [address] [place], [place], [address] B-TYPE KAE PEP 247.5 pg/mL (Abnormal) Range: 0-100 0-Ruf-606084:26 CBC W/Diff, Automated Comments: [facility] Bkajtgqnfg[address] [facility] [place], [address] Absolute Lymph 0.87 {X10_3/ul} (Normal) [...] 4.6-6.2 WBC 8.2 K/mm3 (Normal) Range: 4.4-11.0 3-Qis-035890:08 Basic Metabolic Profile (BMP) Comments: [facility] Thuwpwtpsv3033 [place], [place], [address] GAP 11 (Normal) Range: 5-15 CO2 30.0 [...] <126 mg/dLsuggests IMPAIRED HOMEOSTASIS per A.D.A. criteria. 0-Mob-816974:00 Basic Metabolic Profile (BMP) Comments: [facility] [address]ex[address]ueuuv[address] [place], [place], [address] GAP 12 (Normal) Range: 5-15 CO2 26.0 [...] 126 mg/dLsuggests DIABETES MELLITUS per A.D.A. criteria. 79-Zyw-692407:33 Basic Metabolic Profile (BMP) Comments: [facility] [address] [place], [place], [address] GAP 5 (Normal) Range: 5-15 CO2 26.0 [...] 126 mg/dLsuggests DIABETES MELLITUS per A.D.A. criteria. 12-Fne-641218:07 Basic Metabolic Profile (BMP) Comments: [facility] S[address]ucdktkp[address] [facility] [address] [place], [place], [address] GAP 0 (Abnormal) Range: 5-15 CO2 30.0 [...] 7-18 GLU 101 mg/dL (Normal) Range: 70-110 42-Oux-384292:07 BNP,B-Type NATRIURETIC PEPTIDE Comments: [facility] E[address]je[address] [place], [place], [id number] B-TYPE KAE PEP 560.9 pg/mL (Abnormal) Range: 0-100 [id number]-Wyf-[id number]:04 ALBUMIN SERUM (58753) Comments: PATIENT NOT FASTINGPERFORMED BY: [facility] Hospital[facility]nysnl7821 [facility] [id number] Albumin, Serum 3.4 g/dL (Abnormal) Range: 3.5-4.8 85-Qcn-287258:04 BASIC METABOLIC w/Ionized Comments: PATIENT NOT FASTINGPERFORMED BY: [facility] HospitalXtxgss9921 [facility] [id number] Information: [id number] Ca++ (13565) Calcium, Serum 8.5 mg/dL (Abnormal) Range: 8.6-10.2 [...] Glucose, Serum 171 mg/dL (Abnormal) Range: 65-99 5-Ero-466573:34 Calcium Ionized Comments: [facility] (refer to report for specific site)refer to report for address and phone number [place] [address] Test not performed (Normal) Comments: Patient has been credited for testing not performed. Pleasehave patient return if testing is still required. 5-Tou-034801:36 Anion Gap Comments: [facility] [address] [place], [place], [id number] GAP 3 (Abnormal) Range: 5-15 9-Rrl-172096:36 BUN 18 mg/dL (Normal) Comments: [facility] [address] [place], [place], [id number] Range: 7-18 0-Dxc-880205:36 BUN/Creat Ratio Comments: [place] [place], [id number] BUN/CRE 11.0 {RATIO} (Normal) Range: 10-20 2-Jhw-939519:36 Carbon Dioxide Comments: [address] [place], [address] CO2 30.0 mmol/L (Normal) Range: 21.0-32.0 8-Cte-885386:36 Chloride Comments: [address] [place], [address] CL 109 mmol/L (Abnormal) Range: 98-107 :36 Creatinine, Serum Comments: [address] [place], [address] CREAT,SERUM 1.64 mg/dL (Abnormal) Range: 0.70-1.30 Comments: The validity of the calculated GFR AND GFRAA in patients over70 years has not been determined. Clinical correlation isessential. 6-Oir-800025:36 Glucose Comments: [address] [place], [address] GLU 157 mg/dL (Abnormal) Range: 70-110 Comments: Fasting Glucose result greater than or equal to 126 mg/dLsuggests DIABETES MELLITUS per A.D.A. criteria. :36 Potassium Comments: [address] [place] [address] FloresRember[address] [place], [id number] K 4.3 mmol/L (Normal) Range: 3.5-5.1 1-Kja-343560:36 Sodium Level Comments: [address] [place], [id number]71 NA 142 mmol/L (Normal) Range: 136-145 44-Lvl-767828:36 Urinalysis, Office (79934) UA - LEUKOCYTE ESTERASE Negative (Normal) UA - NITRITE Negative (Normal) URINE UROBILINGN KATELIN TIMED Normal mg/dL (Normal) UA - PROTEIN Negative mg/dL (Normal) UA - PH 6.0 (Normal) Comments: 5.5 UA - BLOOD Hemolyzed Trace (Normal) UA - SPECIFIC GRAVITY 1.005 (Normal) UA - KETONES Negative mg/dL (Normal) UA - BILIRUBIN Negative (Normal) UA - GLUCOSE Negative (Normal) 60-Jcn-483096:06 Metabolic Panel, Basic Comments: PATIENT NOT FASTINGPERFORMED BY: iStorezBristol-My[facility] Squib[facility] Children's HospitalKdllgd9117 [facility] [id number] Information: [id number]; will review at next appt. (10274) Calcium, Serum 9.3 mg/dL (Normal) Range: 8.6-10.2 [...] Glucose, Serum 111 mg/dL (Abnormal) Range: 65-99 27-Aip-296864:07 URINE DAWIT CULTURE-IDENTIFICATN Comments: PATIENT NOT FASTINGPERFORMED BY: iStorezCar[place] [id number] [facility] [id number] (90806) Result 1 MUG (Normal) Comments: Mixed urogenital flora1,000 Colonies/mL Urine Culture,Comprehensive Final report (Normal) 07-Znj-801699:07 URINALYSIS (88528) Comments: PATIENT NOT FASTINGPERFORMED BY: [place] [id number] [facility] [id number] Information: [id number] Microscopic Examination MICNIP (Normal) Comments: Microscopic not indicated and not performed. Nitrite, Urine Negative (Normal) Urobilinogen,Semi-Qn 0.2 mg/dL (Normal) Range: 0.2-1.0 Bilirubin Negative (Normal) Occult Blood Negative (Normal) Ketones Negative (Normal) Glucose Negative (Normal) Protein Negative (Normal) WBC Esterase Negative (Normal) Appearance Clear (Normal) Urine-Color Yellow (Normal) pH 6.0 (Normal) Range: 5.0-7.5 Specific [place] 1.010 (Normal) Range: 1.005-1.030 7-Uvf-360149:02 Basic Metabolic Profile (BMP) Comments: [facility] [address] [place], [place], [address] GAP 9 (Normal) Range: 5-15 CO2 33.0 [...] 126 mg/dLsuggests DIABETES MELLITUS per A.D.A. criteria. 1-Not-559919:02 BNP,B-Type NATRIURETIC PEPTIDE Comments: [facility] [address] [place], [place], [id number] B-TYPE KAE PEP 202.1 pg/mL (Abnormal) Range: 0-100 95-Scq-119534:55 BNP,B-Type NATRIURETIC PEPTIDE Comments: [facility] [address] [place], [place], [id number] B-TYPE KAE PEP 288.3 pg/mL (Abnormal) Range: 0-100 47-Hpl-412031:48 BNP,B-Type NATRIURETIC PEPTIDE Comments: [facility] K[address]9638 [facility] [place], [address] B-TYPE KAE PEP 231.4 pg/mL (Abnormal) Range: 0-100 91-Hej-424262:33 ASSAY, NATIURETIC PEPTIDE Comments: PATIENT NOT FASTINGPERFORMED BY: [facility] Gnaysa6172 [facility]UNC [facility] [id number] Information: [id number] (63802) B-Type Natriuretic Peptide 296.5 pg/mL (Abnormal) Range: 0.0-100.0 89-Adq-576131:15 Basic Metabolic Profile (BMP) Comments: Serial Specimen #1, #2 or #3? 1'TROP' Serial specimen #1, #2, #3, or #4: 1[facility] Jysmbdzyzz9688 [facility] [place], [address] GAP 7 (Normal) Range: 5-15 [...] 126 mg/dLsuggests DIABETES MELLITUS per A.D.A. criteria. 28-Ojd-773487:15 BNP,B-Type NATRIURETIC PEPTIDE Comments: [facility] Nmbquclhap3376 [facility] [place], [address] B-TYPE KAE PEP 200.1 pg/mL (Abnormal) Range: 0-100 45-Akx-971629:15 CBC W/Diff, Automated Comments: [facility] [address] [place], [address] Absolute Lymph 1.42 {X10_3/ul} (Normal) [...] 4.6-6.2 WBC 7.6 K/mm3 (Normal) Range: 4.4-11.0 34-Own-943129:15 CK-MB Quantitative and Index Comments: Serial Specimen #1, #2 or #3? 1'TROP' Serial specimen #1, #2, #3, or #4: [facility] [address]sts[address] [place], [address] CKRI 1.6 % (Abnormal) Range: 0.0-1.4 Comments: RELATIVE INDEX >1.5% IS PRESUMPTIVELY POSITIVE CPKMB 3.3 ng/mL (Normal) Range: 0.0-5.0 Comments: CK-MB and RI Interpretation MB Relative Index Non-AMI <or= 5 NA Indeterminate > 5 <or= 4 AMI > 5 > 4 CPK TOTAL 208 U/L (Normal) Range: 39-308 95-Jnr-075259:15 Troponin-I Comments: Serial Specimen #1, #2 or #3? 1'TROP' Serial specimen #1, #2, #3, or #4: 1[facility] [address] [place], [address] TROPONIN-I 0.03 ng/mL (Normal) Comments: TROPONIN-I EXPECTED VALUES <0.05 NEGATIVE 0.06 - 0.59 AT RISK OF ME > OR = 0.60 SUGGEST ME 93-Zuc-398420:06 HgA1C , Office (90271) HgA1C , Office 8.0 % (Abnormal) Range: 4.6 - 7.1 40-Wmk-967312:06 Blood Glucose , Office (66746) Blood Glucose , Office 143 (Normal) 1-Apo-226947:12 BUN 15 mg/dL (Normal) Comments: Test performed at:[facility] [address] [place] [address] Range: 7-18 9-Xuf-305547:12 Partial Thromboplast Time Comments: Test performed at:[facility] [address] [place], [place] [address] PTT 25.9 s (Normal) Range: 24.1-36.2 7-Grj-983122:12 Platelet Count Comments: Test performed at:[facility] [address] [place] [address] PLT 243 K/mm3 (Normal) Range: 150-450 3-Byk-058445:12 Prothrombin Time w/INR Comments: Test performed at:[facility] [address] [place] [address] INR 0.9 (Normal) PROTIME 12.3 s (Normal) Range: 11.7-14.9 1-Ntw-644281:12 Serum Creatinine AND GFR Comments: Test performed at:[facility] [address] [place], [place] [address] CREAT,SERUM 1.3 mg/dL (Normal) Range: 0.8-1.3 :09 HgA1C , Office (41352) HgA1C , Office 7.1 % (Normal) Range: 4.6 - 7.1 16-Guk-224029:09 Blood Glucose , Office (13700) Blood Glucose , Office 141 (Normal) :43 BUN 14 mg/dL (Normal) Range: 7-18 :43 CRE CREAT 1.1 mg/dL (Normal) Range: 0.8-1.3 :43 PLT 184 K/mm3 (Normal) Range: 150-450 :43 PT INR 0.9 (Normal) PTP 12.4 s (Normal) Range: 11.7-14.9 Comments: Please note revised PROTIME reference range lknsnijgb44/14/15. :43 PTT 26.3 s (Normal) Range: 24.1-36.2 99-Lnt-613846:25 HgA1C , Office (30698) HgA1C , Office 6.7 % (Normal) Range: 4.6 - 7.1 12-Nil-106883:25 Blood Glucose , Office (42051) Blood Glucose , Office 140 (Normal) 47-Gpn-560232:25 Microscopic Examination Comments: PATIENT WAS FASTINGPERFORMED BY: LabCoBristol-My[facility] Squ[facility] Children's HospitalZkktxc9314 [facility] [id number] Bacteria None seen (Normal) Mucus Threads Present (Normal) Epithelial Cells (non renal) None seen {/hpf} (Normal) Range: 0 - 10 RBC 0-3 {/hpf} (Normal) Range: 0 - 3 Comments: Effective September 04, 2013 the reference interval for RBC will be changing to: 0 - 2 /hpf. WBC 0-5 {/hpf} (Normal) Range: 0 - 5 75-Khn-923782:47 LIPID PANEL (21352) Comments: PATIENT WAS FASTINGPERFORMED BY: [facility] Bdzzps5029 [facility] [id number] LDL/HDL Ratio 2.7 {ratio_units} (Normal) Range: 0.0-3.6 LDL Cholesterol Calc 90 mg/dL (Normal) Range: 0-99 HDL Cholesterol 33 mg/dL (Abnormal) Comments: According to ATP-III Guidelines, HDL-C >59 mg/dL is considered anegative risk factor for CHD. VLDL Cholesterol Bharat 27 mg/dL (Normal) Range: 5-40 Triglycerides 133 mg/dL (Normal) Range: 0-149 Cholesterol, Total 150 mg/dL (Normal) Range: 100-199 32-Mha-241826:47 Vitamin D Hydroxy (42112) Comments: PATIENT WAS FASTINGPERFORMED BY: [facility] Lwwfgv5495 [facility] [id number] Vitamin D, 25-Hydroxy 28.7 ng/mL (Abnormal) Range: 30.0-100.0 Comments: Vitamin D deficiency has been defined by the [place] [employer] and an Endocrine Society practice guideline as alevel of serum 25-OH vitamin D less than 20 ng/mL (1,2).The Endocrine Society went on to further define vitamin Dinsufficiency as a level between 21 and 29 ng/mL (2).1. IOM ([place] [employer]). 2010. Dietary reference intakes for calcium and D. [place]: The National Academies Press.2. Marcelle MF, Justin NC, Amira ELIAS, et al. Evaluation, treatment, and prevention of vitamin D deficiency: an Endocrine Society clinical practice guideline. JCEM. 2010; 96(7):1911-30.; ADDENDA: appt 21-Aug-201311:47 TSH (97054) Comments: PATIENT WAS FASTINGPERFORMED BY: [facility] Ppoohj6190 [facility] [id number] TSH 1.700 {uIU/mL} (Normal) Range: 0.450-4.500 52-Eyo-788309:47 URINALYSIS, W/ MICRO (84451) Comments: PATIENT WAS FASTINGPERFORMED BY: [facility] Rqwkdp4648 [facility] [id number] Microscopic Examination See below: (Normal) Microscopic Examination MICRON (Normal) Comments: Microscopic follows if indicated. Nitrite, Urine Negative (Normal) Urobilinogen,Semi-Qn 1.0 mg/dL (Normal) Range: 0.0-1.9 Bilirubin Negative (Normal) Occult Blood Negative (Normal) Ketones Negative (Normal) Glucose Negative (Normal) Protein Negative (Normal) WBC Esterase Negative (Normal) Appearance Clear (Normal) Urine-Color Yellow (Normal) pH 6.0 (Normal) Range: 5.0-7.5 Specific [place] 1.019 (Normal) Range: 1.005-1.030 :47 MICROALBUMIN: CREATININE RATIO Comments: PATIENT WAS FASTINGPERFORMED BY: [facility]70 [facility] [id number] (65830) AND (50663) Microalb/Creat Ratio 5.9 {mg/g_creat} (Normal) Range: 0.0-30.0 Microalbumin, Urine 10.0 ug/mL (Normal) Range: 0.0-17.0 Creatinine, Urine 169.3 mg/dL (Normal) Range: 22.0-328.0 10-Rjr-084615:47 METABOLIC PANEL, COMPREHENSIVE Comments: PATIENT WAS FASTINGPERFORMED BY: [facility]70 [facility] [id number] (04312) ALT (SGPT) 13 [iU]/L (Normal) Range: 0-44 [...] Glucose, Serum 118 mg/dL (Abnormal) Range: 65-99 29-Ixf-953756:47 CBC WITH MANUAL DIFF Comments: PATIENT WAS FASTINGPERFORMED BY: [facility]CoBristol-My[facility] Squ[facility] Children's HospitalYfkcdz1007 [facility] [id number] Information: [id number] (29391) Immature Grans (Abs) 0.0 {x10E3/uL} (Normal) Range: [...] 4.14-5.80 WBC 7.0 {x10E3/uL} (Normal) Range: 3.4-10.8 98-Zbu-388879:38 HgA1C , Office (51385) HgA1C , Office 6.2 % (Normal) Range: 4.6 - 7.1 12-Llp-438899:38 Blood Glucose , Office (32956) Blood Glucose , Office 119 (Normal) 71-Jze-356233:28 HgA1C , Office (12271) HgA1C , Office 6.7 % (Normal) Range: 4.6 - 7.1 40-Ukf-156441:28 Blood Glucose , Office (51022) Blood Glucose , Office 131 (Normal) 28-Knu-458243:08 MICROALBUMIN: CREATININE RATIO Comments: PATIENT WAS FASTINGPERFORMED BY: Prestodiag Mtjmcd7960 [facility] [id number] (78405) AND (01603) Microalb/Creat Ratio 14.3 {mg/g_creat} (Normal) Range: 0.0-30.0 Microalbumin, Urine 24.5 ug/mL (Abnormal) Range: 0.0-17.0 Creatinine, Urine 171.3 mg/dL (Normal) Range: 22.0-328.0 44-Gga-588895:46 Microscopic Examination Comments: PATIENT NOT FASTINGPERFORMED BY: iStorezBristol-My[facility] Squ[facility] Children's HospitalUimmnr6296 [facility] [id number] Bacteria Few (Normal) Mucus Threads Present (Normal) Epithelial Cells (non renal) 0-10 {/hpf} (Normal) Range: 0 - 10 RBC 0-3 {/hpf} (Normal) Range: 0 - 3 WBC 0-5 {/hpf} (Normal) Range: 0 - 5 55-Mfn-404852:46 TSH (69441) Comments: PATIENT NOT FASTINGPERFORMED BY: [facility]6370 [facility] [id number] TSH 2.720 {uIU/mL} (Normal) Range: 0.450-4.500 :46 URINALYSIS, W/ MICRO (60168) Comments: PATIENT NOT FASTINGPERFORMED BY: [facility]6370 [facility] [id number] Microscopic Examination See below: (Normal) Microscopic Examination MICRON (Normal) Comments: Microscopic follows if indicated. Nitrite, Urine Negative (Normal) Urobilinogen,Semi-Qn 1.0 mg/dL (Normal) Range: 0.0-1.9 Bilirubin Negative (Normal) Occult Blood Negative (Normal) Ketones Negative (Normal) Glucose Negative (Normal) Protein Negative (Normal) WBC Esterase Negative (Normal) Appearance Clear (Normal) Urine-Color Yellow (Normal) pH 6.0 (Normal) Range: 5.0-7.5 Specific [place] 1.015 (Normal) Range: 1.005-1.030 :46 MICROALBUMIN: CREATININE RATIO Comments: PATIENT NOT FASTINGPERFORMED BY: [facility]6370 [facility] [id number] (54686) AND (02272) Microalb/Creat Ratio 10.0 {mg/g_creat} (Normal) Range: 0.0-30.0 Microalbumin, Urine 12.6 ug/mL (Normal) Range: 0.0-17.0 Creatinine, Urine 125.8 mg/dL (Normal) Range: 22.0-328.0 37-Idt-764349:46 METABOLIC PANEL, COMPREHENSIVE Comments: PATIENT NOT FASTINGPERFORMED BY: [facility]6370 [facility] [id number] (12238) ALT (SGPT) 18 [iU]/L (Normal) Range: 0-44 [...] Glucose, Serum 116 mg/dL (Abnormal) Range: 65-99 00-Qqs-320243:46 LIPID PANEL (29280) Comments: PATIENT NOT FASTINGPERFORMED BY: [facility]Finderly70 [facility] [id number] LDL/HDL Ratio 2.1 {ratio_units} (Normal) Range: 0.0-3.6 LDL Cholesterol Calc 94 mg/dL (Normal) Range: 0-99 VLDL Cholesterol Bharat 31 mg/dL (Normal) Range: 5-40 HDL Cholesterol 44 mg/dL (Normal) Comments: According to ATP-III Guidelines, HDL-C >59 mg/dL is considered anegative risk factor for CHD. Triglycerides 155 mg/dL (Abnormal) Range: 0-149 Cholesterol, Total 169 mg/dL (Normal) Range: 100-199 :46 CBC WITH MANUAL DIFF Comments: PATIENT NOT FASTINGPERFORMED BY: LabCoBristol-My[facility] Squ[facility] Children's HospitalPhfmfm9146 [facility] [id number] Information: [id number] (82353) Immature Grans (Abs) 0.0 {x10E3/uL} (Normal) Range: [...] (Normal) Range: 4.0-10.5 :38 HgA1C , Office (08797) HgA1C , Office 6.9 % (Normal) Range: 4.6 - 7.1 :38 Blood Glucose , Office (85113) Blood Glucose , Office 124 (Normal) :08 HgA1C , Office (14440) HgA1C , Office 6.5 % (Normal) Range: 4.6 - 7.1 :10 Blood Glucose , Office (41216) Blood Glucose , Office 129 (Normal) 88-Vgn-472479:08 LIPID PANEL (99751) Comments: PATIENT WAS FASTINGPERFORMED BY: TERRIE iStorezBristol-Myers Squibb Children's HospitalOsnftr8126 [facility] [id number] LDL/HDL Ratio 2.2 {ratio_units} (Normal) Range: 0.0-3.6 LDL Cholesterol Calc 97 mg/dL (Normal) Range: 0-99 VLDL Cholesterol Bharat 28 mg/dL (Normal) Range: 5-40 HDL Cholesterol 45 mg/dL (Normal) Comments: According to ATP-III Guidelines, HDL-C >59 mg/dL is considered anegative risk factor for CHD. Triglycerides 140 mg/dL (Normal) Range: 0-149 Cholesterol, Total 170 mg/dL (Normal) Range: 100-199 43-Mde-101642:08 HEPATIC FUNCTION PANEL Comments: PATIENT WAS FASTINGPERFORMED BY: TERRIE [employer]70 [facility] [id number] Information: [id number] (09647) ALT (SGPT) 25 [iU]/L (Normal) Range: 0-55 [...] (Normal) Range: 6.0-8.5 :55 HgA1C , Office (02234) HgA1C , Office 6.9 % (Normal) Range: 4.6 - 7.1 :55 Blood Glucose , Office (29746) Blood Glucose , Office 126 (Normal) 63-Fmk-444782:07 Hemoglobin Glyclated (HGB Comments: PATIENT NOT FASTINGPERFORMED BY: [facility]6370 [facility] [id number] Information: [id number] A1C) (53801) Hemoglobin A1c 6.8 % (Abnormal) Range: 4.8-5.6 Comments: . Increased risk for diabetes: 5.7 - 6.4 Diabetes: >6.4 Glycemic control for adults with diabetes: <7.0 92-Fzi-047947:58 Microscopic Examination Comments: PATIENT WAS FASTINGPERFORMED BY: [facility]6370 [facility] [id number] Bacteria Few (Normal) Mucus Threads Present (Normal) Epithelial Cells (non renal) None seen {/hpf} (Normal) Range: 0 - 10 RBC 0-3 {/hpf} (Normal) Range: 0 - 3 WBC 0-5 {/hpf} (Normal) Range: 0 - 5 :58 PSA Total+% Free Comments: PATIENT WAS FASTINGPERFORMED BY: [facility]6370 [facility] [id number] Information: [id number] % Free PSA 16.3 % (Normal) Comments: [...] Comments: Temo ECLIA methodology. .According to the [place] [employer], Serum PSA shoulddecrease and remain [...] WAR (Normal) Comments: PATIENT WAS FASTINGPERFORMED BY: [facility] Unlmui0925 [address] SpinPunchFormerly [facility] [id number] 3:58 Comments: Written Authorization Received.Authorization received from DR. STYLES [id number] by Machelle Trejo 34-Iby-127518:07 ASSAY, PSA, FREE (52875) Comments: PATIENT NOT FASTINGPERFORMED BY: [facility] Zorgni1443 [facility] [id number] Information: [id number],2ND ORDER NO DRAW F EE % Free [...] Comments: Temo ECLIA methodology. .According to the [place] [employer], Serum PSA shoulddecrease and remain at undetectable levels after radicalprostatectomy. The AUA defines biochemical recurrence as an initialPSA value 0.2 ng/mL or greater followed by a subsequent confirmatoryPSA value 0.2 ng/mL or greater.Values obtained with d ifferent assay methods or kits cannot be usedinterchangeably. Results cannot be interpreted as absolute evidenceof the presence or absence of malignant disease. 3-Zho-625402:17 Bilirubin, Total/Direct, Serum Comments: PATIENT NOT FASTINGPERFORMED BY: [facility]6370 [facility] [id number] Bilirubin, Indirect 1.53 mg/dL (Abnormal) Range: 0.10-0.80 Bilirubin, Direct 0.37 mg/dL (Normal) Range: 0.00-0.40 Bilirubin, Total 1.9 mg/dL (Abnormal) Range: 0.0-1.2 2-Swe-434992:17 Prostate-Specific Ag, Serum Comments: PATIENT NOT FASTINGPERFORMED BY: [facility]6370 [facility] [id number] Prostate Specific Ag, 11.5 ng/mL (Abnormal) Range: 0.0-4.0 Serum Comments: NetIQIA methodology. .According to the [place] [employer], Serum PSA shoulddecrease and remain at undetectable levels after radicalprostatectomy. The AUA defines biochemical recurrence as an initialPSA value 0.2 ng/mL or greater followed by a subsequent confirmatoryPSA value 0.2 ng/mL or greater.Values obtained with d ifferent assay methods or kits cannot be usedinterchangeably. Results cannot be interpreted as absolute evidenceof the presence or absence of malignant disease. 5-Nya-463305:17 PSA Total+% Free Comments: PATIENT NOT FASTINGPERFORMED BY: [facility]6370 [facility] [id number] % Free PSA 19.7 % (Normal) Comments: [...] of men. PSA, Free 2.27 ng/mL Comments: Musicshake ECLIA methodology. (Normal) Prostate Specific Ag, 11.5 ng/mL Range: 0.0-4.0 Serum (Abnormal) Comments: Temo ECLIA methodology. .According to the [place] [employer], Serum PSA shoulddecrease and remain [...] SPRCS (Normal) Comments: PATIENT NOT FASTINGPERFORMED BY: [facility] [employer] Hjigda3835 [address] SpinPunchDublin [place] [id number] :17 Comments: This report has been generated by your request for additional testing.The additional request may have required some testing to be repeated.Because of analytic variability, the results may not correspond exactly to the previous report. Interpret these results appropriately. Written Authorization WAR (Normal) Comments: PATIENT NOT FASTINGPERFORMED BY: CB [facility] Vdktwk3037 Madison RoadDublin [place] [id number] :17 Comments: Written Authorization Received.Authorization received from VICKI STYLES DO [id number] by Candi Salazar :01 Microscopic Examination Comments: PATIENT WAS FASTINGPERFORMED BY: [facility] Bxnwlq1537 Madison RoadDublin [place] [id number] Bacteria None seen (Normal) Mucus Threads Present (Normal) Epithelial Cells (non renal) None seen {/hpf} (Normal) Range: 0 - 10 RBC None seen {/hpf} (Normal) Range: 0 - 3 WBC 0-5 {/hpf} (Normal) Range: 0 - 5 :01 Vitamin D Hydroxy (45054) Comments: PATIENT WAS FASTINGPERFORMED BY: [facility] Lzujkb9447 Madison RoadDublin [place] [id number] Vitamin D, 25-Hydroxy 17.2 ng/mL (Abnormal) Range: 30.0-100.0 Comments: Vitamin D deficiency has been defined by the [place] [employer] and an Endocrine Society practice guideline as alevel of serum 25-OH vitamin D less than 20 ng/mL (1,2).The Endocrine Society went on to further define vitamin Dinsufficiency as a level between 21 and 29 ng/mL (2).1. IOM ([place] [employer]). 2010. Dietary reference intakes for calcium and D. [place]: The National Academies Press.2. Marcelle MF, Justin PURCELL, Amira ELIAS, et al. Evaluation, treatment, and prevention of vitamin D deficiency: an Endocrine Society clinical practice guideline. JCEM. 2010; 96(7):1911-30. :01 PSA (PROSTATE SPECIFIC Comments: PATIENT WAS FASTINGPERFORMED BY: [employer] [place] [id number] ANTIGEN) (V76.44) Prostate Specific Ag, 7.6 ng/mL (Abnormal) Range: 0.0-4.0 Serum Comments: Mus[employer] ECLIA methodology. .According to the [place] [employer], Serum PSA shoulddecrease and remain at undetectable levels after radicalprostatectomy. The AUA defines biochemical recurrence as an initialPSA value 0.2 ng/mL or greater followed by a subsequent confirmatoryPSA value 0.2 ng/mL or greater.Values obtained with d ifferent assay methods or kits cannot be usedinterchangeably. Results cannot be interpreted as absolute evidenceof the presence or absence of malignant disease. :01 TSH (65783) Comments: PATIENT WAS FASTINGPERFORMED BY: [employer]6370 [facility]UNC [facility] [id number] TSH 2.530 {uIU/mL} (Normal) Range: 0.450-4.500 :01 URINALYSIS, W/ MICRO (68123) Comments: PATIENT WAS FASTINGPERFORMED BY: [employer]6370 [facility]CowUNC [facility] [id number] Microscopic Examination See below: (Normal) Microscopic Examination MICRON (Normal) Comments: Microscopic follows if indicated. Nitrite, Urine Negative (Normal) Urobilinogen,Semi-Qn 0.2 mg/dL (Normal) Range: 0.0-1.9 Bilirubin Negative (Normal) Occult Blood Negative (Normal) Ketones Negative (Normal) Glucose Negative (Normal) Protein Negative (Normal) WBC Esterase Negative (Normal) Appearance Clear (Normal) Urine-Color Yellow (Normal) pH 6.5 (Normal) Range: 5.0-7.5 Specific [place] 1.015 (Normal) Range: 1.005-1.030 : MICROALBUMIN: CREATININE RATIO Comments: PATIENT WAS FASTINGPERFORMED BY: Prest[employer]ag Wxkeeb0308 [facility] [id number] (87380) AND (17789) Microalb/Creat Ratio 30.3 {mg/g_creat} (Abnormal) Range: 0.0-30.0 Microalbumin, Urine 33.5 ug/mL (Abnormal) Range: 0.0-17.0 Creatinine, Urine 110.7 mg/dL (Normal) Range: 22.0-328.0 : METABOLIC PANEL, COMPREHENSIVE Comments: PATIENT WAS FASTINGPERFORMED BY: [employer]6370 [facility] [id number] (55812) ALT (SGPT) 23 [iU]/L (Normal) Range: 0-55 [...] mg/dL (Abnormal) Range: 65-99 :01 LIPID PANEL (67898) Comments: PATIENT WAS FASTINGPERFORMED BY: [employer] [facility] [id number] LDL/HDL Ratio 2.5 {ratio_units} (Normal) Range: 0.0-3.6 [...] MANUAL DIFF Comments: PATIENT WAS FASTINGPERFORMED BY: [facility] LabRoamler6370 [facility] [id number] Information: [id number] (67533) Immature Grans (Abs) 0.0 {x10E3/uL} (Normal) Range: [...] (Normal) Range: 4.0-10.5 :24 HgA1C , Office (39691) HgA1C , Office 6.7 % (Normal) Range: 4.6 - 7.1 :24 Blood Glucose , Office (79455) Blood Glucose , Office 131 (Normal) :50 HgA1C , Office (83841) HgA1C , Office 6.3 % (Normal) Range: 4.6 - 7.1 :50 Blood Glucose , Office (07514) Blood Glucose , Office 116 (Normal) :05 HgA1C , Office (75962) HgA1C , Office 6.7 % (Normal) Range: 4.6 - 7.1 :58 URINALYSIS, W/ MICRO (14096) Comments: PATIENT WAS FASTINGPERFORMED BY: [facility]CoB[facility] HospitalUmlijw0467 [facility] [id number] Microscopic Examination See below: (Normal) Microscopic Examination MICRON (Normal) Comments: Microscopic follows if indicated. Nitrite, Urine Negative (Normal) Urobilinogen,Semi-Qn 0.2 mg/dL (Normal) Range: 0.0-1.9 Bilirubin Negative (Normal) Occult Blood Negative (Normal) Ketones Negative (Normal) Glucose Negative (Normal) Protein Negative (Normal) WBC Esterase Negative (Normal) Appearance Clear (Normal) Urine-Color Yellow (Normal) pH 6.5 (Normal) Range: 5.0-7.5 Specific [place] 1.015 (Normal) Range: 1.005-1.030 :58 METABOLIC PANEL, COMPREHENSIVE Comments: PATIENT WAS FASTINGPERFORMED BY: [facility]Co[facility] HospitalHjggni9473 [facility] [id number] (17252) ALT (SGPT) 23 [iU]/L (Normal) Range: 0-55 [...] PATIENT WAS FASTINGPERFORMED BY: [facility]CoB[facility] Children's HospitalJetcfn3799 [facility] [id number] Information: [id number] (08188) Immature Grans (Abs) 0.0 {x10E3/uL} (Normal) Range: [...] {x10E3/uL} (Normal) Range: 4.0-10.5 :58 LIPID PANEL (06706) Comments: PATIENT WAS FASTINGPERFORMED BY: [facility] HospitalUqjfij5781 [facility] [id number] LDL/HDL Ratio 2.7 {ratio_units} (Normal) Range: 0.0-3.6 [...] CREATININE RATIO Comments: PATIENT WAS FASTINGPERFORMED BY: [facility]6370 [facility] [id number] (74904) AND (89404) Microalb/Creat Ratio 16.0 {mg/g_creat} (Normal) Range: 0.0-30.0 Microalbumin, Urine 22.3 ug/mL (Abnormal) Range: 0.0-17.0 Creatinine, Urine 139.1 mg/dL (Normal) Range: 22.0-328.0 :58 TSH (35765) Comments: PATIENT WAS FASTINGPERFORMED BY: [facility]6370 [facility] [id number] TSH 3.200 {uIU/mL} (Normal) Range: 0.450-4.500 :44 TSH (06751) Comments: PATIENT WAS FASTINGPERFORMED BY: [facility]6370 [facility] [id number] TSH 2.540 {uIU/mL} (Normal) Range: 0.450-4.500 :44 MICROALBUMIN: CREATININE RATIO Comments: PATIENT WAS FASTINGPERFORMED BY: [facility]6370 [facility] [id number] (98340) AND (28616) Microalb/Creat Ratio 22.8 {mg/g_creat} (Normal) Range: 0.0-30.0 Microalbumin, Urine 47.4 ug/mL (Abnormal) Range: 0.0-17.0 Creatinine, Urine 207.7 mg/dL (Normal) Range: 22.0-328.0 :44 CBC with manual diff Comments: PATIENT WAS FASTINGPERFORMED BY: TERRIE iStorezscottie RodriguezRqazsq4413 [facility] [id number] Information: ADD [id number] AND DRAW FEE 99 0120 (25626) Immature Grans (Abs) 0.0 {x10E3/uL} (Normal) Range: [...] Panel, Comprehensive Comments: PATIENT WAS FASTINGPERFORMED BY: TERRIE [facility]Co[facility] HospitalZnfvun3172 [facility] [id number] (49479) ALT (SGPT) 22 [iU]/L (Normal) Range: 0-55 [...] Glucose, Serum 146 mg/dL (Abnormal) Range: 65-99 17-Kvw-56751:44 Lipid Panel (70718) Comments: PATIENT WAS FASTINGPERFORMED BY: TERRIE [facility]CoB[facility]'s HospitalLjkpmv9819 [facility] [id number]; appt 11/26/10 LDL Cholesterol Calc 109 mg/dL (Abnormal) Range: 0-99 LDL/HDL Ratio 2.4 {ratio_units} (Normal) Range: 0.0-3.6 HDL Cholesterol 46 mg/dL (Normal) Comments: According to ATP-III Guidelines, HDL-C >59 mg/dL is considered anegative risk factor for CHD. VLDL Cholesterol Bharat 37 mg/dL (Normal) Range: 5-40 Triglycerides 183 mg/dL (Abnormal) Range: 0-149 Cholesterol, Total 192 mg/dL (Normal) Range: 100-199 68-Asc-577858:56 Vitamin D Hydroxy Comments: PATIENT NOT FASTINGPERFORMED BY: [employer]6370 [facility] [id number] Information: [id number] (05546) Vitamin D, 25-Hydroxy 19.4 ng/mL (Abnormal) Range: 32.0-100.0 Comments: Recent studies consider the lower limit of 32.0 ng/mL to be athreshold for optimal health.Ashu JIMENEZ. J Nutr. 2004;135(2):317-22. :03 HEPATIC FUNCTION PANEL Comments: PATIENT WAS FASTINGPERFORMED BY: [employer]6370 [facility] [id number] Information: [id number] (07485) Alkaline Phosphatase, S 72 [iU]/L (Normal) Range: 25-160 ALT (SGPT) 24 [iU]/L (Normal) Range: 0-55 AST (SGOT) 21 [iU]/L (Normal) Range: 0-40 Bilirubin, Direct 0.38 mg/dL (Normal) Range: 0.00-0.40 Albumin, Serum 4.0 g/dL (Normal) Range: 3.6-4.8 Bilirubin, Total 1.6 mg/dL (Abnormal) Range: 0.0-1.2 Protein, Total, Serum 6.9 g/dL (Normal) Range: 6.0-8.5 :03 LIPID PANEL (61955) Comments: PATIENT WAS FASTINGPERFORMED BY: Prestodiag Goczvi9089 [facility] [id number] LDL/HDL Ratio 1.7 {ratio_units} (Normal) Range: 0.0-3.6 LDL Cholesterol Calc 66 mg/dL (Normal) Range: 0-99 VLDL Cholesterol Bharat 36 mg/dL (Normal) Range: 5-40 Cholesterol, Total 141 mg/dL (Normal) Range: 100-199 HDL Cholesterol 39 mg/dL (Abnormal) Comments: According to ATP-III Guidelines, HDL-C >59 mg/dL is considered anegative risk factor for CHD. Triglycerides 179 mg/dL (Abnormal) Range: 0-149 53-Fcy-27929:55 CBC WITH MANUAL DIFF Comments: PATIENT NOT FASTINGPERFORMED BY: TERRIE [facility] Iiblen2690 [facility] [id number] Information: [id number] (00541) Immature Grans (Abs) 0.0 {x10E3/uL} (Normal) Range: [...] 9.0 {x10E3/uL} (Normal) Range: 4.0-10.5 :55 Magnesium (16312) Comments: PATIENT NOT FASTINGPERFORMED BY: [facility]6370 [facility] [id number] Magnesium, Serum 2.1 mg/dL (Normal) Range: 1.6-2.6 :55 Metabolic Panel, Basic (04918) Comments: PATIENT NOT FASTINGPERFORMED BY: [facility] [place] [address] [id number] Calcium, Serum 9.3 mg/dL (Normal) Range: 8.6-10.2 [...] Microscopic Examination Comments: PATIENT WAS FASTINGPERFORMED BY: [facility]6370 [facility] [id number] Bacteria None seen (Normal) Cast Type Hyaline casts (Normal) Casts Present {/lpf} (Abnormal) Epithelial Cells (non renal) 0-10 {/hpf} (Normal) Range: 0 - 10 Mucus Threads Present (Normal) RBC 0-3 {/hpf} (Normal) Range: 0 - 3 WBC 0-5 {/hpf} (Normal) Range: 0 - 5 :42 TSH (63119) Comments: PATIENT WAS FASTINGPERFORMED BY: [facility]6370 [facility] [id number] TSH 3.120 {uIU/mL} (Normal) Range: 0.450-4.500 :42 URINALYSIS, W/ MICRO (44011) Comments: PATIENT WAS FASTINGPERFORMED BY: [address] [id number] Microscopic Examination See below: (Normal) Bilirubin Negative (Normal) Glucose Negative (Normal) Ketones Negative (Normal) Nitrite, Urine Negative (Normal) Occult Blood Negative (Normal) Urobilinogen,Semi-Qn 0.2 mg/dL (Normal) Range: 0.0-1.9 Appearance Clear (Normal) pH 6.0 (Normal) Range: 5.0-7.5 Protein Negative (Normal) Urine-Color Yellow (Normal) WBC Esterase Trace (Abnormal) Specific [place] 1.020 (Normal) Range: 1.005-1.030 :42 MICROALBUMIN: CREATININE RATIO Comments: PATIENT WAS FASTINGPERFORMED BY: [place] [id number] [facility] [id number] (38635) AND (64612) Microalb/Creat Ratio 14.6 {mg/g_creat} (Normal) Range: 0.0-30.0 Microalbumin, Urine 26.0 ug/mL (Abnormal) Range: 0.0-17.0 Creatinine, Urine 178.3 mg/dL (Normal) Range: 22.0-328.0 :42 METABOLIC PANEL, COMPREHENSIVE Comments: PATIENT WAS FASTINGPERFORMED BY: [place] [id number] [facility] [id number] (18428) Alkaline Phosphatase, S 68 [iU]/L (Normal) Range: [...] Glucose, Serum 129 mg/dL (Abnormal) Range: 65-99 08-Hjb-17840:42 LIPID PANEL (99919) Comments: PATIENT WAS FASTINGPERFORMED BY: [facility]Co[facility]'s HospitalLgrbto4794 [facility] [id number] LDL/HDL Ratio 2.5 {ratio_units} (Normal) Range: 0.0-3.6 [...] PATIENT WAS FASTINGPERFORMED BY: [facility]CoB[facility]'s HospitalIgnene8953 [facility] [id number] Information: ADD [id number] AND DRAW FEE 99 5446 (68874) Immature Grans (Abs) 0.0 {x10E3/uL} (Normal) Range: [...] 4.10-5.60 WBC 9.2 {x10E3/uL} (Normal) Range: 4.0-10.5 0-Hsa-667799:04 KNEE,4 OR MORE VIEWS (MT) Radiology See Note Comments: Exam Number: [id number] LINICAL:69-year-old man with pain in the left [...] CHOL 194 mg/dL (Normal) Comments: <200 mg/dL Vfydsfsyo322-255 mg/dL Borderline>240 mg/dL High Risk :32 PSA, [...] CHOL 157 mg/dL (Normal) Comments: <200 mg/dL Wufswdfcx457-774 mg/dL Borderline>240 mg/dL High Risk :54 MICROALB:CRE UR MALB:CREAT 10.3 {mg/g_CRE} (Normal) MICROALBUMIN,UR 19.7 mg/L (Normal) UR CREAT 189.9 mg/dL (Normal) :54 TSH 2.03 {uIU/mL} (Normal) Range: 0.358-3.74 12-Dlv-835530:57 WRIST,MIN 3 VIEWS Radiology Report See Note (Normal) Comments: Exam Number: [id number] LEFT HAND Three views of the left hand were obtained. There is good alignment. No acute abnormality is seen. LEFT WRIST Three views were obtained. There is good ali gnment. No significantabnormality is seen. Reported By: SHAHAB CARLOS 98-Jdk-004123:56 CHEST, PA AND LATERAL Radiology Report See Note (Normal) Comments: Exam Number: [id number] CHEST, PA AND LATERAL PA and lateral [...] Report See Note (Normal) Comments: Exam Number: [id number] LEFT HAND Three views of the left [...] was performed using the TPSA method for theCommunities for CausebTendo chemistry system.Values obtained with different assay methods cannot be usedinterchangably.When changing PSA assays in the course of monito ring apatient, additional sequential testing should be carriedout to confirm baseline values. :32 TSH 1.81 {uIU/mL} (Normal) Range: 0.34-4.82 :46 Vitamin D Hydroxy (33982) Comments: PATIENT NOT FASTINGClinical Information: ADD DRAW FEE [id number] ADD [id number] PERFORMED BY: [facility] Tevikhrtpb9394 [facility] [id number] Vitamin D, 25-Hydroxy 56.3 ng/mL (Normal) Range: 32.0-100.0 Comments: Recent studies consider the lower limit of 32.0 ng/mL to be athreshold for optimal health.[place] TONY. J Nutr. 2004;135(2):317-22. 36-Nad-335016:46 VITAMIN D, 1, 25-DIHYDROXY Comments: PATIENT NOT FASTINGPERFORMED BY: [facility] Wlpwfddpiw4009 [facility] [id number] (58597) Vitamin D, 1,25 Dihydroxy 31.0 pg/mL (Normal) Range: 15.9-55.6 21-Dmc-806213:28 CBCD,SMEAR DIFF Comments: GETS LIPID,LIVER,CBCMD,MICROAB.JOANNE VÁZQUEZ GETS [...] 47-70 WBC 7.3 K/mm3 (Normal) Range: 4.4-11.0 15-Qao-824379:28 COMP METABOLIC Comments: GETS LIPID,LIVER,CBCMD,MICROAB.JOANNE VÁZQUEZ GETS [...] T PROT 7.2 g/dL (Normal) Range: 6.4-8.2 86-Mtb-683616:28 D BILI 0.17 mg/dL (Normal) Comments: GETS LIPID,LIVER,CBCMD,MICROAB.JOANNE VÁZQUEZ GETS CMP,PHOS,MG,VITD,CBC, Range: 0.00-0.30 57-Sjh-574818:28 LIPID Comments: GETS LIPID,LIVER,CBCMD,MICROAB.JOANNE VÁZQUEZ GETS CMP,PHOS,MG,VITD,CBC, [...] mg/dL VLDL 41 mg/dL (Abnormal) Range: 5-40 02-Jan-314781:28 MG 1.7 mg/dL (Normal) Comments: GETS LIPID,LIVER,CBCMD,MICROAB.JOANNE VÁZQUEZ GETS CMP,PHOS,MG,VITD,CBC, Range: 1.5-2.2 55-Mgn-922980:28 MICROALBUMIN,UR 6.9 mg/L (Normal) Comments: GETS LIPID,LIVER,CBCMD,MICROAB.JOANNE VÁZQUEZ GETS CMP,PHOS,MG,VITD,CBC, 94-Rrs-656158:28 PHOS 3.2 mg/dL (Normal) Comments: GETS LIPID,LIVER,CBCMD,MICROAB.JOANNE VÁZQUEZ GETS CMP,PHOS,MG,VITD,CBC, Range: 2.5-4.9 41-Ljl-381909:28 VIT D,25 17379 29.9 ng/mL (Abnormal) Comments: GETS LIPID,LIVER,CBCMD,MICROAB.JOANNE ÁVZQUEZ GETS CMP,PHOS,MG,VITD,CBC, Range: 32.0-100.0 Comments: Recent studies consider the lower limit of 32.0 ng/mL to binta threshold for optimal health.Ashu JIMENEZ. J Nutr. 2004;135(2):317-22.Performed At: [address] [id number] [address]-286885:57 VITAMIN D, 1, 25-DIHYDROXY Comments: PATIENT NOT FASTINGClinical Information: ADD DRAW FEE [id number] ADD J 28041 PERFORMED BY: [facility] [address] [id number] (19311) Vitamin D, 1,25 Dihydroxy 38.4 pg/mL (Normal) Range: 15.9-55.6 57-Epg-163904:30 LIPID CHOL 176 mg/dL (Normal) Comments: <200 [...] mg/dL VLDL 41 mg/dL (Abnormal) Range: 5-40 10-Xle-448458:30 LIVER ALB 3.7 g/dL (Normal) Range: 3.4-5.0 ALK P 57 U/L (Normal) Range: 50-136 ALT 41 U/L (Normal) Range: 30-65 AST 23 U/L (Normal) Range: 15-37 D BILI 0.16 mg/dL (Normal) Range: 0.00-0.30 T BILI 1.63 mg/dL (Abnormal) Range: 0.00-1.00 T PROT 6.9 g/dL (Normal) Range: 6.4-8.2 :46 CHEST, PA AND LATERAL Radiology Report See Note (Normal) Comments: Exam Number: [id number] PA AND LATERAL CHEST CLINICAL STATEMENTCough for [...] 6.4-8.2 :34 MICROALBUMIN,UR 14.3 mg/L (Normal) :34 PTH,[id number] Comments: PLASMA ALDOSTERONE PTH,Intact 63 pg/mL (Normal) Range: 12-65 Comments: Performed At: [facility] [id number] At: [address] [id number] RENIN,PL 2005 0.38 {ng/mL/hr} Comments: PLASMA ALDOSTERONE (Normal) Comments: [...] {uIU/mL} (Normal) Range: 0.34-4.82 :34 VIT D,25 69565 20.2 ng/mL (Abnormal) Comments: PLASMA ALDOSTERONE Range: 32.0-100.0 Comments: Recent studies consider the lower limit of 32.0 ng/mL to binta threshold for optimal health.Ashu JIMENEZ. J Nutr. 2004;135(2):317-22. :00 PROST BX P-PROSB (Normal) Comments: OPERATION Needle [...] is totally submitted in two cassettes. / RICCI: 11/23/06 TC:3 REPORT SIGNED: TRINI DIAMOND 11/24/0623-Sep-200655-Zjc-056117:35 LIPID CHOL 135 mg/dL (Normal) Comments: <200 [...] mg/dL VLDL 36 mg/dL (Normal) Range: 5-40 12-Imd-462487:35 LIVER ALB 3.5 g/dL (Normal) Range: 3.4-5.0 ALK P 65 U/L (Normal) Range: 50-136 ALT 40 [iU]/L (Normal) Range: 30-65 AST 25 U/L (Normal) Range: 15-37 D BILI 0.17 mg/dL (Normal) Range: 0.00-0.30 T BILI 1.83 mg/dL (Abnormal) Range: 0.00-1.00 T PROT 6.6 g/dL (Normal) Range: 6.4-8.2 70-Dfj-153927:34 PSA, DIAGNOSTIC 5.3 ng/mL (Abnormal) Range: 0.0-4.0 Comments: This test was performed using the TPSA method for theEasyaula chemistry system.Values obtained with different assay methods cannot be usedinterchangably.When changing PSA assays in the course of monito ring apatient, additionaly sequential testing should be carriedout to confirm baseline values. 97-Baz-994075:54 BMP BUN 14 mg/dL (Normal) Range: 7-18 [...] 3.5-5.1 NA 137 mmol/L (Normal) Range: 136-145 15-Sdf-904901:14 PSA [id number] COMMENT Comment (Normal) Comments: The percent free PSA is performed on a reflex basis onlywhen the total PSA is between 4.0 and 10.0 ng/mL.Performed At: [facility]6[address] [place], [place] [id number] At: [address] [id number] PSA, FREE 0.77 ng/mL (Normal) PSA, FREE % 17.5 % (Normal) Comments: The table below lists the probability of prostate cancer formen with non-suspicious COLTEN results and total PSA between4 and 10 ng/mL, by patient age (Prashant et jennifer, CHUY 1998,279:1542). % Free PSA 50-64 yr 65-75 yr 0.00-10.00% 56% 55% 10.01-15.00% 24% 35% 15.01-20.00% 17% 23% 20.01-25.00% 10% 20% >25.00% 5% 9%Please note: Prashant et al did not make specific recommendations regarding the use of percent free PSA for any other population of men. PSA, TOTAL 4.4 ng/mL (Abnormal) Range: 0.0-4.0 Comments: [facility]formerly [employer] Plan of Care Name Dates Details [...] kidney disease Elevated parathyroid hormone : Reviewed Executive Pastry [employer] Letter Indication: Elevated parathyroid hormone Elevated parathyroid [...] disease Coronary artery disease, occlusive : Reviewed [employer] Letter Indication: Coronary artery disease, occlusive Coronary [...] occlusive Coronary artery disease, occlusive : Reviewed [employer] Letter Indication: Coronary artery disease, occlusive Malignant [...] in both knees, unspecified chronicity : Reviewed [employer] Letter Indication: Pain in both knees, unspecified [...] hyperlipidemia Coronary artery disease, occlusive : Reviewed [employer] Letter Indication: Coronary artery disease, occlusive Malignant [...] insulin Coronary artery disease, occlusive : Reviewed [employer] Letter Indication: Coronary artery disease, occlusive Malignant [...] disease Coronary artery disease, occlusive : Reviewed [employer] Letter Indication: Coronary artery disease, occlusive Controlled [...] insulin Atrial fibrillation, unspecified type : Reviewed [employer] Letter Indication: Atrial fibrillation, unspecified type Nonsmoker [...] chronic diastolic congestive heart failure : Reviewed Executive [employer] Chef Letter Indication: Acute on chronic diastolic congestive heart failure Fluid overload : Reviewed Lab Indication: Fluid overload Fluid overload : Reviewed Diagnostic Tests Indication: Fluid overload Atrial fibrillation, unspecified type : Reviewed [employer] Letter Indication: Atrial fibrillation, unspecified type Hypertensive [...] on chronic systolic heart failure : Reviewed Executive [employer] Letter Indication: Acute on chronic systolic heart failure Bilateral edema of lower extremity : Reviewed Lab Indication: Bilateral edema of lower extremity Acute on chronic systolic heart failure : Reviewed [employer] Letter Indication: Acute on chronic systolic heart [...] breath on exertion : Follow up - Indication: Short of breath on exertion Coronary atherosclerosis of andreafski coronary vessel : Reviewed Executive [employer] Letter Indication: 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 : Reviewed Diagnostic Tests Indication: Coronary atherosclerosis of andreafski coronary vessel Acute systolic congestive heart failure : Follow up in 3 weeks- fu on chf and edema and std process Indication: Acute systolic congestive heart failure Bilateral edema of lower extremity : Follow up in wednesday - yessenia Indication: Bilateral edema of lower extremity Coronary atherosclerosis of andreafski coronary vessel : Eprescribed prescriptions ([id number]) Indication: Coronary atherosclerosis of andreafski coronary vessel Acute systolic congestive heart failure : Reviewed Diagnostic Tests Indication: Acute systolic congestive heart failure Acute systolic congestive heart failure : Continue Current Prescription(s) Indication: Acute systolic congestive heart failure Acute systolic congestive heart failure : Reviewed Executive [employer] Letter Indication: Acute systolic congestive heart failure Shortness of breath on exertion : Follow up wednesday for yessenia on lower extrem edema- and sob & lab Indication: Shortness of breath on exertion Atherosclerosis of andreafski coronary artery without angina pectoris, unspecified whether andreafski or transplanted heart : Reviewed Executive [employer] Letter Indication: Atherosclerosis of andreafski coronary artery without angina pectoris, unspecified whether andreafski or transplanted heart Mixed hyperlipidemia : Cholesterol [...] Cholesterol mgmt Indication: Hyperlipidemia Coronary atherosclerosis of andreafski coronary vessel : Reviewed Executive [employer] Letter Indication: Coronary atherosclerosis of andreafski coronary vessel Diabetes mellitus type 2, uncontrolled, [...] annual wellness exam Elevated PSA : Reviewed Executive [employer]ry Chef Letter: milagro neal Indication: Elevated PSA 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 : Continue Current Prescription(s) 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 : Reviewed Lab Indication: Coronary atherosclerosis of andreafski coronary vessel Hyperlipidemia : Cholesterol mgmt Indication: [...] and congestive heart failure Coronary atherosclerosis of andreafski coronary vessel : Reviewed Executive [employer] Letter Indication: Coronary atherosclerosis of andreafski coronary vessel Diabetes mellitus without complication (Renamed from Diabetes mellitus with no complication) : Diabetes Mellitus: Type 2 *: diabetes type 2 Indication: Diabetes mellitus without complication (Renamed from Diabetes mellitus with no complication) CVA (cerebral infarction) : Reviewed [employer] Letter: neuro wants to do a brain [...] brain MRI Abnormal brain MRI : Reviewed [employer] Letter Indication: Abnormal brain MRI Malignant hypertension [...] Vitamin D deficiency, unspecified Coronary atherosclerosis of andreafski coronary vessel : Reviewed Executive [employer] Chef Letter Indication: Coronary atherosclerosis of andreafski coronary vessel Hyperlipidemia : Cholesterol mgmt Indication: [...] mellitus with no complication) Coronary atherosclerosis of andreafski coronary vessel : Reviewed [employer] Letter Indication: Coronary atherosclerosis of andreafski coronary vessel Diabetes mellitus type 2, uncontrolled, [...] mellitus with no complication) Coronary atherosclerosis of andreafski coronary vessel : Reviewed Executive [employer] Chef Letter Indication: Coronary atherosclerosis of andreafski coronary vessel Malignant hypertension with renal disease [...] 2, uncontrolled, without complications Coronary atherosclerosis of andreafski coronary vessel : Reviewed Executive [employer]ry Chef Letter Indication: Coronary atherosclerosis of andreafski coronary vessel Hyperlipidemia : Cholesterol mgmt Indication: [...] with renal disease Elevated PSA : Reviewed Executive [employer] Letter Indication: Elevated PSA Vitamin D deficiency, [...] mgmt Indication: Mixed hyperlipidemia Coronary atherosclerosis of andreafski coronary vessel : Reviewed [employer] Letter Indication: Coronary atherosclerosis of andreafski coronary vessel Hypertensive heart disease : Diet, [...] mgmt Indication: Mixed hyperlipidemia Coronary atherosclerosis of andreafski coronary vessel : Reviewed Executive [employer]ry Chef Letter Indication: Coronary atherosclerosis of andreafski coronary vessel Hypertensive heart disease : HTN/CAD [...] Wt loss Indication: Obesity, morbid Atherosclerosis of andreafski coronary artery without angina pectoris, unspecified whether andreafski or transplanted heart : Reviewed Executive [employer] Chef Letter Indication: Atherosclerosis of andreafski coronary artery without angina pectoris, unspecified whether andreafski or transplanted heart Hypertensive heart disease : [...] pain : FOLLOW UP IN 2 WEEKS [facility] Indication: Knee pain Obesity, morbid : Diet, [...] Nonprescription Treatment Indication: Hyperlipidemia Coronary atherosclerosis of andreafski coronary vessel : Reviewed Executive [employer]ry Chef Letter Indication: Coronary atherosclerosis of andreafski coronary vessel Hypertensive heart disease : Diet, [...] of breath at rest Coronary atherosclerosis of andreafski coronary vessel : Reviewed Executive [employer] Chef Letter Indication: Coronary atherosclerosis of andreafski coronary vessel Hypertensive heart disease : Diet, [...] Side Effects Indication: Mixed hyperlipidemia Atherosclerosis of andreafski coronary artery without angina pectoris, unspecified whether andreafski or transplanted heart : Reviewed Executive [employer]ry Chef Letter Indication: Atherosclerosis of andreafski coronary artery without angina pectoris, unspecified whether andreafski or transplanted heart Hypertensive heart disease : [...] obstructive pulmonary disease Elevated PSA : Reviewed Executive [employer] Chef Letter prostate bx negative Indication: Elevated PSA Hypertensive heart disease : Reviewed Executive [employer] Chef Letter Indication: Hypertensive heart disease Hyperlipidemia : [...] - Strool Based DNA Test, CRC SCREEN (06654)Indication: Encounter for screening for malignant neoplasm of colon (Renamed from Special screening for malignant neoplasms, colon) On: 70-Osh-267902:47 Request TSH (52379)Indication: 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, without long-term current use of insulin On: 1-Jec-608657:20 Request URINALYSIS, W/ MICRO ([id number])Indication: 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 On: 3-Mcb-331258:19 Request MICROALBUMIN: CREATININE RATIO ([id number]) AND (39152)Indication: 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 On: 1-Kyf-073892:19 Request METABOLIC PANEL, COMPREHENSIVE (94473)Indication: 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 On: 1-Sus-039610:19 Request LIPID PANEL (80872)Indication: 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 On: 4-Rwv-883556:19 Request CBC with auto diff (93781)Indication: 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 On: 5-Vat-514428:19 Request CALCIFEDIOL (06044)Indication: Vitamin D deficiency On: :19 Request CALCIFEDIOL (64568)Indication: Vitamin D deficiency On: 86-Vgn-584221:51 Request PARATHORMONE (40515)Indication: Elevated parathyroid hormone On: 53-Lic-603431:51 Request URINALYSIS, W/ MICRO (99888)Indication: Diabetes mellitus without complication (Renamed from Diabetes mellitus with no complication) On: 3-Psw-615065:17 Request MICROALBUMIN: CREATININE RATIO (62989) AND (32081)Indication: Diabetes mellitus without complication (Renamed from Diabetes mellitus with no complication) On: 3-Nzt-250044:17 Request CALCIFIDIOL (54557) VIT D 25Indication: Vitamin D deficiency, unspecified On: :39 Request TSH ([id number])Indication: 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, without long-term current use of insulin On: :39 Request URINALYSIS, W/ MICRO (06711)Indication: 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, without long-term current use of insulin On: :39 Request MICROALBUMIN: CREATININE RATIO (88225) AND ([id number])Indication: 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, without long-term current use of insulin On: :39 Request METABOLIC PANEL, COMPREHENSIVE (39114)Indication: 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, without long-term current use of insulin On: :39 Request LIPID PANEL (88562)Indication: 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, without long-term current use of insulin On: :39 Request CBC W/AUTO DIFF WBC ([id number])Indication: 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, without long-term current use of insulin On: :39 Request TSH (40386)Indication: Diabetes mellitus type 2, uncontrolled, without complications On: 71-Zts-962976:04 Request URINALYSIS, W/ MICRO (47907)Indication: Diabetes mellitus type 2, uncontrolled, without complications On: 92-Boq-952149:04 Request MICROALBUMIN: CREATININE RATIO (12138) AND (35802)Indication: Diabetes mellitus type 2, uncontrolled, without complications On: :04 Request METABOLIC PANEL, COMPREHENSIVE ([id number])Indication: Diabetes mellitus type 2, uncontrolled, without complications On: 74-Emo-272310:04 Request LIPID PANEL (44354)Indication: Mixed hyperlipidemia On: :04 Request CBC W/AUTO DIFF WBC (99604)Indication: Diabetes mellitus type 2, uncontrolled, without complications On: 31-Ppt-845143:03 Request FECAL OCCULT- Tubes sent home (21915)Indication: Encounter for screening for malignant neoplasm of colon (Renamed from Special screening for malignant neoplasms, colon) On: 9-Ddr-156254:21 Request Metabolic Panel, Basic (24047)Indication: Renal insufficiency On: 0-Jln-942102:41 Request Comments: wednesday Metabolic Panel, Basic (35463)Indication: Renal insufficiency On: 05-Jul-2015 Request Metabolic Panel, Basic (49994)Indication: Renal insufficiency On: 00-Swj-196983:41 Request BASIC METABOLIC w/Ionized Ca++ (19352)Indication: Short of breath on exertion On: 8-Rqk-182040:31 Request METABOLIC PANEL, BASIC (73832)Indication: Abnormal blood chemistry On: 7-Pal-375796:23 Request Metabolic Panel, Basic (64718)Indication: Acute systolic congestive heart failure On: 2-Rbe-310610:54 Request Metabolic Panel, Basic (47687)Indication: Atrial fibrillation, unspecified type On: 04-Kdt-087236:04 Request ASSAY, NATIURETIC PEPTIDE (04975)Indication: Atrial fibrillation, unspecified type On: 43-Eop-090754:04 Request ASSAY, NATIURETIC PEPTIDE (77115)Indication: Bilateral edema of lower extremity On: 66-Aau-353530:13 Request ASSAY, NATIURETIC PEPTIDE (11662)Indication: Acute systolic congestive heart failure On: 49-Nsi-186199:39 Request Comments: re check in 1-2 weeks PSA (Medicare - G0103) (14098)Indication: Elevated PSA On: 94-Kqj-213401:17 Request TSH ([id number])Indication: Diabetes mellitus type 2, uncontrolled, without complications On: 86-Lde-678090:16 Request URINALYSIS, W/ MICRO (99123)Indication: Diabetes mellitus type 2, uncontrolled, without complications On: :16 Request MICROALBUMIN: CREATININE RATIO ([id number]) AND (35054)Indication: Diabetes mellitus type 2, uncontrolled, without complications On: :16 Request METABOLIC PANEL, COMPREHENSIVE (27083)Indication: Diabetes mellitus type 2, uncontrolled, without complications On: :16 Request LIPID PANEL ([id number])Indication: Diabetes mellitus type 2, uncontrolled, without complications On: :16 Request CBC with auto diff (86505)Indication: Diabetes mellitus type 2, uncontrolled, without complications On: :16 Request CALCIFIDIOL (39644) VIT D 25Indication: Vitamin D deficiency, unspecified On: :16 Request Vitamin D Hydroxy (30207)Indication: Vitamin D deficiency, unspecified On: 9-Ruh-531315:05 Request URINALYSIS, W/ MICRO (91587)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 On: 2-Mon-398446:04 Request MICROALBUMIN: CREATININE RATIO (93691) AND ([id number])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 On: :04 Request METABOLIC PANEL, COMPREHENSIVE (22782)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 On: 1-Rli-261971:04 Request LIPID PANEL ([id number])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 On: : Request CBC WITH MANUAL DIFF ([id number])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 On: 9-Npy-624712:04 Request FECAL OCCULT- Tubes sent home ([id number])Indication: Encounter for routine history and physical exam for male On: :09 Request CALCIFIDIOL (40316) VIT D 25Indication: Vitamin D deficiency, unspecified On: 7-Qpk-866885:11 Request PSA TOTAL +%FREE 926011 (86206)Indication: Elevated PSA On: 5-Ekc-230341:14 Request BILIRUBIN, TOTAL & DIRECT (75214)Indication: Other specified abnormal findings of blood chemistry On: 8-Iot-974782:14 Request Glucose, PP/2 Hour (48307)Indication: Other specified abnormal findings of blood chemistry On: 63-Zot-126614:03 Request CALCIFIDIOL (04361) VIT D 25Indication: Vitamin D deficiency, unspecified On: 01-Tze-310986:31 Request TSH ([id number])Indication: Hypertensive heart disease On: :28 Request URINALYSIS, W/ MICRO ([id number])Indication: Hypertensive heart disease On: : Request MICROALBUMIN: CREATININE RATIO (39356) AND ([id number])Indication: Hypertensive heart disease On: :28 Request METABOLIC PANEL, COMPREHENSIVE (16676)Indication: Hypertensive heart disease On: : Request CBC WITH MANUAL DIFF (52458)Indication: Hypertensive heart disease On: : Request PSA (PROSTATE SPECIFIC ANTIGEN) (V76.44)Indication: Elevated PSA On: 23-Ryw-451107:25 Request LIPID PANEL (87884)Indication: Hyperlipidemia On: 90-Tpn-592282:23 Request Comments: do for next appt- 4mo Metabolic Panel, Basic (00577)Indication: Pain of hand, unspecified laterality On: 98-Obw-230633:42 Request URIC ACID BLOOD (75027)Indication: Pain of hand, unspecified laterality On: 08-Zzg-198989:42 Request C-REACTIVE PROTEIN (26755)Indication: Pain of hand, unspecified laterality On: 05-Eko-986844:52 Request SED RATE ERYTHROCYTE (79491)Indication: Pain of hand, unspecified laterality On: 35-Xrh-979488:52 Request CBC WITH MANUAL DIFF ([id number])Indication: Pain of hand, unspecified laterality On: 49-Roq-816849:51 Request Magnesium (49481)Indication: Hypokalemia On: 60-Noi-609558:25 Request Potassium Serum (10753)Indication: Hypokalemia On: 07-Bfu-583125:25 Request Comments: do in 2 weeks Vitamin D Hydroxy (12333)Indication: Vitamin D deficiency, unspecified On: 24-Wmu-934423:23 Request Glucose, PP/2 Hour (56289)Indication: Other specified abnormal findings of blood chemistry On: 06-Mil-235654:18 Request LIPID PANEL (07904)Indication: Hyperlipidemia On: 31-Wct-980464:45 Request Comments: DO IN 3 MONTHS HEPATIC FUNCTION PANEL (87010)Indication: Hyperlipidemia On: 94-Dxh-122635:45 Request HEPATIC FUNCTION PANEL (41539)Indication: Hyperlipidemia On: 38-Huo-341496:54 Request LIPID PANEL (93447)Indication: Hyperlipidemia On: 93-Jwq-662833:54 Request Comments: do in 3 months PARATHORMONE (23695)Indication: Vitamin D deficiency, unspecified On: 93-Fkx-043151:45 Request CALCIUM SERUM (95925)Indication: Vitamin D deficiency, unspecified On: 40-Kvs-183772:45 Request VITAMIN D, 1, 25-DIHYDROXY (46648)Indication: Vitamin D deficiency, unspecified On: 82-Bec-784889:45 Request VITAMIN D, 25-DIHYDROXY (07260)Indication: Vitamin D deficiency, unspecified On: 71-Skb-192335:45 Request LIPID PANEL (67401)Indication: Hyperlipidemia On: 47-Okb-335559:44 Request Planned Procedures INTENSIVE BEHAVIORAL THERAPY TO On: 15-Nov-2017 Intent REDUCE CARDIOVASCULAR DISEASE RISK, INDIVIDUAL, WENN-YM-NQIH, ANNUAL, 15 MINUTES (G0446)By: Vicki Styles DO, DO, Kathleen POGW-ZT-FIQC BEHAVIORAL COUNSELING On: 15-Nov-2017 Intent FOR OBESITY, 15 MINUTES (G0447)By: Vicki Styles DO, DO, Kathleen Spirometry (68323)By: Neil NG, On: 06-Sep-2017 Intent Vicki Nichols DO Comments: severe obsstyuction and good effort on curve-- addeed dulera - ELECTROCARDIOGRAM, COMPLETE (ECG) On: 06-Sep-2017 Intent (97647)By: Vicki Styles DO Comments: a fib- rate controlled - no acute findings Vicki Styels DO X-RAY OF HAND, THREE VIEWS On: 17-Jun-2017 Intent (94123)By: Vicki Styles DO Comments: Right hand Vicki Styles DO PARATHYROID SCAN (71594)By: Neil On: 17-Jun-2017 Vicki Coates DO, DO, Kathleen Overnight Pulse OX (34417)By: On: 04-Jun-2017 Intent Vicki Styles DO, DO, Kathleen CDYY-UA-XQBJ BEHAVIORAL COUNSELING On: 09-Nov-2016 Intent FOR OBESITY, 15 MINUTES (G0447)By: Vicki Styles DO, DO, Kathleen INTENSIVE BEHAVIORAL THERAPY TO On: 09-Nov-2016 Intent REDUCE CARDIOVASCULAR DISEASE RISK, INDIVIDUAL, [id number]-JF-MUKD, ANNUAL, 15 MINUTES (G0446)By: Vicki Styles DO, DO, Kathleen ELECTROCARDIOGRAM, COMPLETE (ECG) On: 10-Sep-2016 Intent (17977)By: Vicki Styles DO Comments: chronic chg - afib/flutter - rate controlled Vicki Styles DO SIX MINUTE WALK TEST (46807)By: On: 26-Mar-2016 Intent Vicki Styles DO, DO, Kathleen Overnight Pulse OX (43468)By: On: 09-Mar-2016 Intent Vicki Styles DO, DO, Kathleen Overnight Pulse OX (04813)By: On: 04-Mar-2016 Intent Vicki Styles DO, DO, Kathleen Spirometry ([id number])By: Neil NG, On: 04-Mar-2016 Intent Vicki Nichols DO Comments: pt admits not using inhalers - restrictive pattern - refilled inhalers - symbicort nad spiriva and will yessenia in one month INTENSIVE BEHAVIORAL THERAPY TO On: 07-Nov-2015 Intent REDUCE CARDIOVASCULAR DISEASE RISK, INDIVIDUAL, DCOW-KL-LVST, ANNUAL, 15 MINUTES (G0446)By: Vicki Styles DO, DO, Kathleen OAMG-UW-CJQL BEHAVIORAL COUNSELING On: 07-Nov-2015 Intent FOR OBESITY, 15 MINUTES (G0447)By: Vicki Styles DO, DO, Kathleen Radiology - Chest- PA and LatBy: On: 18-Apr-2015 Intent Vicki Styles DO, DO, Kathleen Echo CompleteBy: Neil NG, On: 18-Apr-2015 Intent Vicki Styles DOVicki Prevnar 13 (20650)By: Neil NG, On: 16-Jan-2014 Intent Vicki Styles DOVicki Prevnar 13 ([id number])By: Neil NG, On: 16-Jan-2014 Intent Vicki Nichols DO Comments: [id number] arm, 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, [employer] Overnight Pulse OX ([id number])By: On: 03-Jan-2014 Intent Vicki Styles DO Neil DO, Vicki Six Minute Walk Assessment On: 28-Dec-2013 Intent (21817)By: Neil NG, Vicki Neil DO, Vicki SPAL-FF-ENZR BEHAVIORAL COUNSELING On: 23-Nov-2013 Intent FOR OBESITY, 15 MINUTES (G0447)By: Vicki Styles DO Neil DO, Vicki INTENSIVE BEHAVIORAL THERAPY TO On: 19-Oct-2013 Intent REDUCE CARDIOVASCULAR DISEASE RISK, INDIVIDUAL, ERVD-KF-MPIF, ANNUAL, 15 MINUTES (G0446)By: Neil NG, Vicki Niel DO, Vicki OOAV-KT-OQXO BEHAVIORAL COUNSELING On: 19-Oct-2013 Intent FOR OBESITY, 15 MINUTES (G0447)By: Vicki Styles DO, DO, Vicki Radiology - Chest- PA and LatBy: On: 24-Aug-2013 Intent Neil NG, Vicki Neil DO, Vicki Aerosol Treatment ([id number])By: On: 24-Aug-2013 Intent Neil NG, Vicki Styles DO, Comments: no wheeze and much more a/e Vicki Eprescribed prescriptions On: 15-May-2013 Intent (G8553)By: Leora Fonseca LPN Eprescribed prescriptions On: 20-Mar-2013 Intent (G8553)By: Vicik Styles DO Neil DO, Vicki INTENSIVE BEHAVIORAL THERAPY TO On: 17-Oct-2012 Intent REDUCE CARDIOVASCULAR DISEASE RISK, INDIVIDUAL, DLEJ-CO-BQCM, ANNUAL, 15 MINUTES (G0446)By: Vicki Styles DO Neil DO, Vicki ENIN-OO-DNTV BEHAVIORAL COUNSELING On: 17-Oct-2012 Intent FOR OBESITY, 15 MINUTES (G0447)By: Vicki Styles DO DO, Vicki EKG (03851)By: Neil NG, On: 17-Oct-2012 Intent Vicki Neil DO, Vicki Eprescribed prescriptions On: 17-Oct-2012 Intent (G8553)By: Leora Fonseca LPN Six Minute Walk Assessment On: 28-Jul-2012 Intent (15792)By: Gay Brandon LPN Bio Z (38452)By: Neil DO, On: 18-Jul-2012 Intent Vicki Nichols DO Comments: unable to connect and perform Six Minute Walk Assessment On: 18-Jul-2012 Intent (96442)By: Vicki Styles DO Comments: set up Neil DOVicki Eprescribed prescriptions On: 22-Apr-2012 Intent (G8553)By: Leora Fonseca LPN Spirometry (23555)By: Neil DO, On: 21-Jan-2012 Intent Vicki Nichols DO Comments: poor effort Eprescribed prescriptions On: 21-Jan-2012 Intent (G8553)By: Leora Fonseca LPN PFT - CompleteBy: Neil NG, On: 21-Oct-2011 Intent Vicki Nichols DO EKG ([id number])By: Neil NG, On: 21-Oct-2011 Intent Vicki Nichols DO Comments: nsr no acute chg Eprescribed prescriptions On: 05-Aug-2011 Intent (G8553)By: Leora Fonseca LPN Six Minute Walk Assessment On: 06-Feb-2011 Intent (46038)By: Naomi Mendez Comments: see scanned documents Six Minute Walk Assessment On: 26-Nov-2010 Intent (44548)By: Vicki Styles DO Comments: set up Neil DO, Vicki Bio Z (92236)By: Neil NG, On: 26-Nov-2010 Intent Vicki Nichols DO Comments: norrmal parameters no chg in rx EKG (83164)By: Neil NG, On: 26-Nov-2010 Intent Vicki Nichols DO Comments: nsr no acute chgn TDAP VACCINE >7 IM (73253)By: On: 30-Jul-2010 Intent Vicki Styles DO, DO, Comments: Lot:[id number]:06/26/12Amt:prefilledRoute:IMSite: left deltGiven By: CARYL Edwards Eprescribed prescriptions On: 30-Jul-2010 Intent (G8553)By: Neil DO, Vicki Neil , Vicki Bio Z (60209)By: Neil , On: 30-Jul-2010 Intent Vicki Nichols DO Comments: STABLE SEE SCANNED DOC -NO CHG IN MEDS EKG (16210)By: Neil NG, On: 26-Mar-2010 Intent Vicki Neil DO Vicki Bio Z (57612)By: Neil DO, On: 26-Mar-2010 Intent Vicki Nichols DO PHYSICAL THERAPY EVALUATION On: 07-Jan-2010 Intent ([id number])By: Elisabet Matos CNP Radiology - Knee - [...] DO, Vicki Neil DO, Vicki Bio Z (23552)By: Neil NG, On: 19-Mar-2009 Intent Vicki Nichols DO Comments: ok co and svr EKG (22600)By: Neil DO, On: 19-Mar-2009 Intent Vicki Neil DOVicki Comments: nsr no acute changes Spirometry (71474)By: Neil NG, On: 19-Mar-2009 Intent Vicki Nichols DO Comments: mild obstructive pattern - Pulse Oximetry (39120)By: Mast RN, On: 19-Mar-2009 Intent Darling EKG (54465)By: Neil NG, On: 25-Jul-2008 Intent Vicki Nichols DO Comments: no acute stable Bio Z ([id number])By: Neil NG, On: 25-Jul-2008 Intent Vicki Nichols DO Comments: stable no changes Six Minute Walk Assessment On: 16-May-2008 Intent (52087)By: Crystal Reyes Six Minute Walk Assessment On: 23-Mar-2008 Intent (08694)By: Vicki Styles DO, DO, Kathleen Bio Z (01858)By: Neil NG, On: 23-Mar-2008 Intent Vicki Nichols DO Comments: normal svr and co Radiology - Knee - LeftBy: Neil On: 28-Dec-2007 Intent Vicki NG Neil DO, Vicki Radiology - Knee - RightBy: Neil On: 28-Dec-2007 Intent Vicki NG DO, Kathleen Bio Z (48161)By: Neil NG, On: 28-Dec-2007 Intent Vicki Nichols DO Comments: normal svr and co Bio Z (95109)By: Neil NG, On: 01-Sep-2007 Intent Vicki Nichols DO Comments: HYPERDYNAMIC HEART-- HI CO AND LO SVR Holter Moniter (59974)By: Neil On: 04-May-2007 Intent Vicki NG DO, Kathleen Comments: set up Bio Z (79005)By: Neil NG, On: 04-May-2007 Intent Vicki Nichols DO Comments: normal svr and co EKG (91195)By: Neil NG, On: 04-May-2007 Intent Vicki Nichols DO Comments: nsr some pvc-- no acute ischemic changes Radiology - Chest- PA and LatBy: On: 24-Mar-2007 Intent Vicki Styles DO, DO, Kathleen Aerosol Treatment (93350)By: On: 24-Mar-2007 Intent Vicki Styles DO, DO, Comments: better air exchange less wheeze and less irritability with cough Vicki Solu- Medrol Injection, 125mg On: 24-Mar-2007 Intent ([id number])By: Vicki Styles DO Comments: given in right hip, 125mg, lot#[id number], exp.5.2010--WF Vicki Styles DO Spirometry (86709)By: Neil NG, On: 24-Mar-2007 Intent Vicki Nichols DO Comments: severe airway obstruction Pulse Oximetry (50807)By: Neil On: 24-Mar-2007 Vicki Coates DO, DO, Kathleen Comments: 94% Doppler Ultrasound OtherBy: Neil On: 02-Mar-2007 Vicki Coates DO, DO, Kathleen Comments: R Inhaler Demo (30125)By: Neil NG, On: 27-Jan-2007 Intent Vicki Nichols DO Bio Z (03313)By: Neil NG, On: 27-Jan-2007 Intent Vicki Nichols DO Comments: normal svr and co Spirometry (75592)By: Neil NG, On: 27-Jan-2007 Intent Vicki Nichols DO Comments: mild obstruction Bio Z (86172)By: Neil NG, On: 11-Oct-2006 Intent Vicki Nichols DO Comments: normal svr and co EKG (57188)By: Neil NG, On: 26-Apr-2006 Intent Vicki Nichols DO Comments: nsr intraventricular conduction delay no acute ischemic changes Holter Moniter (31654)By: On: 26-Mar-2006 Intent REILLY Moya Instructions Name [...] systolic congestive heart failure Coronary atherosclerosis of andreafski coronary vessel : How to access health information online Indication: 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 : How to access health information online - Detail Indication: Coronary atherosclerosis of andreafski coronary vessel Bilateral edema of lower extremity [...] 2, uncontrolled, without complications Coronary atherosclerosis of andreafski coronary vessel : cardiovascular counseling Indication: Coronary atherosclerosis of andreafski coronary vessel BMI 37.0-37.9, adult : obesity [...] Indication: Abnormal brain MRI Coronary atherosclerosis of andreafski coronary vessel : cardiovascular counseling Indication: Coronary atherosclerosis of andreafski coronary vessel BMI 36.0-36.9,adult : obesity counseling [...] medications to soon, gotten lost, [facility] or put handrails in bathroom. The patient has completed the following pr eventative measures: PSA testing (2016) and colonoscopy (2001). The patient does have durable power of senior attorney and living will. The patient has noticed nothing from the geriatic depression scale. Other providers contributing to the patient's care are psychologist experimental, air compressor mechanic, urologist and other: (endo).Encounter Diagnosis: Nonsmoker, BMI [...] I could not move so I called [facility] and I was at [facility] and then I went to [facility] for End: 06-Jan-2017 11:01 heraphy) and a [...] The patient does have durable power of senior attorney and living will. The patient has noticed nothing from the geriatic depression scale. Other providers contributing to the patient's care are psychologist experimental, urologist and other:.Encounter Diagnosis: Nonsmoker, BMI 35.0-35.9,adult, [...] extremity edema, increase SOB. Recent trip to [place] Encounter Diagnosis: Edema extremities, Fluid overload, Atrial [...] The patient does have durable power of senior attorney and living will. The patient has noticed lack of energy. Other providers contributing to the patient's care are psychologist experimental and urologist. Encounter Diagnosis: Encounter for Medicare [...] Hypertension with renal disease, Coronary atherosclerosis of andreafski coronary vessel, Chronic kidney disease, stage 3 [...] vivid dreams. Encounter Diagnosis: Coronary atherosclerosis of andreafski coronary vessel, Apnea, BPH (benign prostatic hyperplasia) (600.90), Other urinary incontinence, Bilateral edema of lower extremity, Short of breath on exertion, Non morbid obesity, unspecified obesity type, Therapeutic drug monitoring [facility] Office Visit On: 10-May-2015 10:16 Encounter Diagnosis: Atrial fibrillation, unspecified type, Coronary atherosclerosis of andreafski coronary vessel (414.01), Acute systolic congestive heart [...] type, Abnormal blood chemistry, Coronary atherosclerosis of andreafski coronary vessel (414.01) End: 06-May-2015 10:58 Comprehensive [...] deficiency, unspecified, Mixed hyperlipidemia (272.2), Atherosclerosis of andreafski coronary artery without angina pectoris, unspecified whether andreafski or transplanted heart, History of CVA in [...] weight :. Encounter Diagnosis: Coronary atherosclerosis of andreafski coronary vessel (414.01), BMI 37.0-37.9, ADULT (V85.37), [...] patient d oes have durable power of senior attorney and living will. The patient has noticed feeling situation is hopeless (recently). Other providers contributing to the patient's care are psychologist experimental (Dr. Greenfield), uro logist and other: ([facility] - Dr Quezada).Encounter Diagnosis: Annual Medicare Physical (V70.0), BMI 37.0-37.9, ADULT (V85.37), Coronary atherosclerosis of andreafski coronary vessel (414.01) [facility] [...] mellitus with no complication), Coronary atherosclerosis of andreafski coronary vessel (414.01), Hyperlipidemia (272.4), Hypertension with [...] pressure range :.Encounter Diagnosis: Coronary atherosclerosis of andreafski coronary vessel (414.01), Hypertension with Heart and Renal Disease (404.93), Diabetes mellitus without complication (Renamed from Diabetes mellitus with no complication), Hyperlipidemia (272.4), Edema (782.3) [facility] Office Visit On: 20-Mar-2013 10:40 Encounter Diagnosis: Hypertension with Heart and Renal Disease (404.93), CVA (cerebral infarction) (434.91), Coronary atherosclerosis of andreafski coronary vessel (414.01) End: 20-Mar-2013 11:53 [facility] Office Visit On: 15-Feb-2013 14:36 Encounter Reason: Transition into care - The patient most recently received care from a hospital (in hosp from 02/12/13 to 02/14/13 for a minor stroke.).Encounter Diagnosis: Abnormal brain MRI (793.0), End: 15-Feb-2013 15:50 Hypertension with Heart and Renal Disease (404.93), Coronary atherosclerosis of andreafski coronary vessel (414.01), CVA (cerebral infarction) (434.91), [...] in bathroom. The patient has completed the [facility] preventative measures: PSA testing (september 2012) and colonoscopy (around 10 years). The patient does have durable power of senior attorney and living will. The patient has noticed nothing from the geriatic depression scale. Other providers contributing to the patient's care are psychologist experimental (Dr. Greenfield) and urologist. 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), Hyperlipidemia (272.4), Coronary atherosclerosis of andreafski coronary vessel (414.01), Unspecified vitamin D deficiency [...] disease (402.90), Hyperlipidemia (272.4), Coronary atherosclerosis of andreafski coronary vessel (414.01), Edema (782.3) [facility] [...] mellitus without complication (250.00), Coronary atherosclerosis of andreafski coronary vessel (414.01), Hypertension with Renal Disease [...] II,uncontrolled, no comp (250.02), Coronary atherosclerosis of andreafski coronary vessel (414.01), Atrial fibrillation (427.31), Benign [...] fibrillation (427.31), COPD (496.), Coronary atherosclerosis of andreafski coronary vessel (414.01) [facility] Phone [...] fibrillation (427.31), COPD (496.), Coronary atherosclerosis of [place] coronary vessel (414.01), Mixed hyperlipidemia (272.2), Hypertensive [...] , Atrial fibrillation (427.31), Coronary atherosclerosis of [place] coronary vessel (414.01) [facility] [...] Coronary atherosclerosis of unspecified type of vessel, [place] or graft (414.00), COPD (496.), Hyperglycemia (790.29), [...] Coronary atherosclerosis of unspecified type of vessel, [place] or graft (414.00), Atrial fibrillation (427.31), Obesity, [...] Coronary atherosclerosis of unspecified type of vessel, [place] or graft (414.00), Hypertensive heart disease (402.90) [...] Hypertensive heart disease (402.90), Coronary atherosclerosis of [place] coronary vessel (414.01), Atrial fibrillation (427.31), Hyperlipidemia [...] Coronary atherosclerosis of unspecified type of vessel, [place] or graft (414.00), Atrial fibrillation (427.31), Hypocalcemia [...] Hypertensive heart disease (402.90), Coronary atherosclerosis of [place] coronary vessel (414.01), Hyperlipidemia (272.4), COPD (496.), [...] Coronary atherosclerosis of unspecified type of vessel, [place] or graft (414.00), Atrial fibrillation (427.31), Mixed [...] Coronary atherosclerosis of unspecified type of vessel, [place] or graft (414.00), Atrial fibrillation (427.31), Mixed [...] Coronary atherosclerosis of unspecified type of vessel, [place] or graft (414.00), Atrial fibrillation (427.31), Coronary atherosclerosis of [place] coronary vessel (414.01), Unspecified vitamin D deficiency [...] Diagnosis: Atrial fibrillation (427.31), Coronary atherosclerosis of [place] coronary vessel (414.01), Hypertensive heart disease (402.90), [...] (402.90), Atrial fibrillation (427.31), Coronary atherosclerosis of [place] coronary vessel (414.01), Hyperlipidemia (272.4), Cough (786.2), [...] Hypertensive heart disease (402.90), Coronary atherosclerosis of [place] coronary vessel (414.01), Atrial fibrillation (427.31), Hyperlipidemia [...] End: 01-Jan-2006 12:10 Payers MedicareTRICARE FOR LIFE, S/JUAN PABLO Dewitt; a guarantor
--- OUTSIDE RECORDS SUMMARY | 2018-04-29 15:59 | XMS RPT_ITS | Continuity of Care Document ---
:1940 Author Organization [facility] Address [facility] [facility] [address] [place] [address] Phone Care Team Providers Name Role Phone Neil DO Vicki Unavailable Milagro PHAN, Dr. Mohsen Mckenna Unavailable Physical Therapy, [facility] Unavailable Lesa Alvarado Unavailable Dr. Juan Sin DO Unavailable [facility], Diagnostic Services Unavailable Kimo Roger MD Unavailable Mata Leonard Unavailable [facility] Unavailable Kamaljit PHAN, Dr. 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) Status: Active Hypoxia (R09.02, 799.02) Comments: sleep related and wears at nightmanaged by [email or web address] Status: Active Influenza vaccination declined (Renamed from [...] DO, DO, Kathleen Start : 28-Dec-2017 Active Cardura XL 4 MG Oral Tablet Extended Release 24 Hour 1 Tablet ER 24HR qd for 0 days Quantity: 90 {Tablet} Refills: 0 Ordered:16-Mar-2018 Fabiola Styles DO, DO, Kathleen Start : 16-Mar-2018 End : 17-Jun-2017 Active Cardura XL 4 MG Oral Tablet Extended Release 24 Hour 1 Tablet ER 24HR qd for 30 days Quantity: 30 {Tablet} Refills: 6 Ordered:16-Mar-2018 Fabiola Styles DO, DO, Kathleen Start : 16-Mar-2018 End : 17-Jun-2017 Active Comments:on national back order Citrical one daily Active Colchicine 0.5 MG [...] Start : 06-May-2015 End : 22-Aug-2015 Inactive DRISDOL, 10179SIXR (Oral Capsule) 1 Capsule uad for 0 days Quantity: 8 {Capsule} Refills: 4 Ordered:21-Jan-2012 Leora Fonseca LPN Start : 31-Jul-2010 End : 21-Jan-2012 Inactive Comments:2 tabs q week x 4 mo and then 1 tab weekly ERGOCALCIFEROL, 31378PLIP (Oral Capsule) 1 (one) Capsule tad for [...] Quantity: 1 {Inhaler} Refills: 0 Ordered:24-Apr-2015 Leora Fonscea LPN Start : 24-Aug-2013 End : 24-Apr-2015 [...] Moya Start : 21-Aug-2008 Inactive VITAMIN D3, 63904NUTH (Oral Capsule) 1 Capsule 2 x week [...] Comments:take 1/2 hr prior to lasix Nystatin 546031 UNIT/ML Mouth/Throat Suspension 5 cc cc swish [...] Inactive as of 04-Mar-2016 Coronary 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 (I25.10, 414.01) Comments: other stent [...] Visit Report Result: Comments: See Note; NOTES: [facility] [address] [place] [address] OFFICE VISIT Date of Service: 01/13/18 MR#: [id number] Acct: [id number] Name: RAMU DEWITT Rep #: [id number] : 1940 Provider: Jimi Greenfield MD Age/Sex: 77/M Location: [facility] Status: Signed HPI HPI Chief Complaint: Follow up visit Details: RAMU DEWITT, is a 77 M who presents to the [facility] today for a cardiovascular outpatient follow-up. 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) Ischemic cardiomyopathy (Chronic) FH: sudden cardiac (SCD) (Chronic) 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 of premature coronary heart disease (Environmental Director akhil) BPH with urinary obstruction (Chronic) Noncompliance [...] 3 Views Result: Comments: See Note; NOTES: [facility] Imaging Services [address] [place] [address] Hand Min 3 Views MR#: [id number] Acct: [id number] Name: RAMU DEWITT Rep #: [id number] DO B: 1940 M 76 From: Andre Crisostomo MD PCP: Vicki Styles DO Status: REG CLI Study: Hand Min 3 Views Date of Exam: 08/20/17 Exam# [id number] Ordering Dr: Lesa Alvarado MD STUDY: X-RAY [...] CC: Vicki Styles DO; Lesa Alvarado MD Recycle Worker: Signed 20-Aug-2017 Hand Min 3 Views Result: Comments: See Note; NOTES: [facility] Imaging Services [address] [place] [address] Hand Min 3 Views MR#: [id number] Acct: [id number] Name: RAMU DEWITT Rep #: [id number] DO B: 1940 [facility] From: Andre Crisostomo MD PCP: Vicki Styles DO Status: REG CLI Study: Hand Min 3 Views Date of Exam: 08/20/17 Exam# [id number] Ordering Dr: Lesa Alvarado MD STUDY: X-RAY [...] CC: Vicki Styles DO; Lesa Alvarado MD Recycle Worker: Signed 20-Aug-2017 Knee 4 or More Views Result: Comments: See Note; NOTES: [facility] Imaging Services [address] [place] [address] Knee 4 or More Views MR#: [id number] Acct: [id number] Name: RAMU DEWITT Rep #: [id number] : 1940 76 From: Andre Crisostomo MD PCP: Vicki Styles DO Status: REG CLI Study: Knee 4 or More Views Date of Exam: 08/20/17 Exam# [id number] Ordering Dr: Lesa Alvarado MD STUDY: X-RAY [...] CC: Vicki Styles DO; Lesa Alvarado MD Recycle Worker: Signed 20-Aug-2017 Knee 4 or More Views Result: Comments: See Note; NOTES: [facility] Imaging Services [address] [place] [address] Knee 4 or More Views MR#: [id number] Acct: [id number] Name: RAMU DEWITT Rep #: [id number] : 1940 [facility] From: Andre Crisostomo MD PCP: Vicki Styles DO Status: REG CLI Study: Knee 4 or More Views Date of Exam: 08/20/17 Exam# [id number] Ordering Dr: Lesa Alvarado MD STUDY: X-RAY [...] CC: Vicki Styles DO; Lesa Alvarado MD Recycle Worker: Signed 24-Jun-2017 Parathyroid Scan Result: Comments: See Note; NOTES: [facility] Imaging Services [address] [place] [address] Parathyroid Scan MR#: [id number] Acct: [id number] Name: RAMU DEWITT Rep #: [id number] DO B: 1940 M 76 From: Rickie Mcelroy DO PCP: Vicki Styles DO Status: REG CLI Study: Parathyroid Scan Date of Exam: 06/24/17 Exam# [id number] Ordering Dr: Vicki Styles DO CLINICAL: 76-year-old [...] Service support , CC: Vicki Styles DO Recycle Worker: Signed 17-Jun-2017 Hand Min 3 Views Result: Comments: See Note; NOTES: [facility] Imaging Services [address] [place] [address] Hand Min 3 Views MR#: [id number] Acct: [id number] Name: RAMU DEWITT Rep #: [id number] DO B: 1940 M 76 From: Trung Gonzalez DO PCP: Vicki Styles DO Status: REG CLI Study: Hand Min 3 Views Date of Exam: 06/17/17 Exam# [id number] Ordering Dr: Vicki Styles DO STUDY: X-RAY [...] Tel , Service support , CC: Samira soloriojuan Styles Recycle Worker: Signed 16-Jun-2017 Cardiology Visit Report Result: Comments: See Note; NOTES: [facility] [address] [place] [address] OFFICE VISIT Date of Service: 06/16/17 MR#: [id number] Acct: [id number] Name: RAMU DEWITT Rep #: [id number] : 1940 Provider: LUIS Sanders Age/Sex: 76/M Location: [facility] Status: Signed HPI HPI Details: RAMU DEWITT, [...] brachial Intake Visit Reasons: 3 M FU Arts Administrator Or Manager Required: No Accompanied by: None Is patient [...] 12/12/16 [Rx Confirmed 06/14/17] Hydrocodone Bitart/Apap 5-325 [[place] 5/325] 1 tab PO Q6H PRN PRN #30 tab 12/12 [Rx Confirmed 06/14/17] apixaban 2.5 mg tablet 2.5 mg PO BID #14 tab 04/08/17 [Rx Confirmed 06/14/17] Ejection fraction %: 40 to 44 PFSH Medical History History of stroke (Chronic) 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 LUIS Benavides Patient's most recent echocardiogram from December 2016 showed an estimated ejection fraction of 40%. Patient denies any shortness of breath or worsening lower extremity pedal edema. Patient does no say improved edema since he has adjusted his diet. Patient will continue current medications which include beta-evelin and diuretic. 2. Atherosclerosis of [place] coronary artery of [place] heart witho ut angina pectoris I25.10 S/P CABG in 2003 with VILLEDA to LAD, SVG to LXC, and SVG posterior descending; TARIQ Benavides Patient's most recent stress test from May 2015 was negative for str ess-induced myocardial ischemia. Patient denies any chest pain, arm pain, jaw pain, neck pain, shortness of breath, or fatigue suggestive of angina at this time. We will continue to monitor this. We shadia l not make any medication regimen changes and will continue risk factor modification. 3. Persistent atrial fibrillation I48.1 TARIQ Benavides Patient states he has not been on [...] factor Xa inhibitor. 4. Essential hypertension I10 LUIS Benavides Though patient has been out of his [...] his blood pressure. 5. Mixed hyperlipidemia E78.2 TARIQ Benavides This is being evaluated/monitored by primary care physician. Patient is not on any cholesterol lowering medication. 6 . 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 [...] prior to saving. 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) Coding Level of Care Code Off vis,est,level 3 Diagnoses Cardiomyopathy, ischemic I25.5 Atherosclerosis of [place] coronary artery of [place] heart without angina pectoris I25.10 Persistent atrial fibr illation I48.1 Atrial fibrillation type: persistent Essential hypertension I10 Hypertension type: essential hypertension Mixed hyperlipidemia E78.2 Hyperlipidemia type: mixed hyperlipidemia termite exterminator us e of drug Z79.899 Coding Level of Care Code Off vis,est,level 3 Diagnoses Cardiomyopathy, ischemic I25.5 Atherosclerosis of [place] coronary artery of [place] heart without angina pectoris I25.10 Persi stent atrial fibrillation I48.1 Atrial fibrillation type: persistent Essential hypertension I10 Hypertension type: essential hypertension Mixed hyperlipidemia E78.2 Hyperlipidemia type: mixed hyperlipid emia residential use of drug Z79.899 06/16/17 1139 <Electronically signed by Ramu POTTER> Date Ramu POTTER 06/16/17 1417&am p;#60;Electronically signed by Jimi Greenfield MD> Cosigner Signature: Date (if applicable) Jimi Greenfield MD CC: Vickicaroline Styles DO 08-Dec-2016 Emergency Department Summary Result: Comments: See Note; NOTES: [facility] Medical Records Department [address] [address] Emergency Department Summary 12/08/16 1354 MR#: [id number] Acct: [id number] Name: RAMU DEWITT Rep #: [id number] : 1940 75 From: Robe Mary MD [...] [place] C. Computer is reading acute inferior MS. I am in disagreement. Chest x-ray reveals [...] your Primary Care Provider. Call [facility] ([phone]) or jignesh merchant to the closest Emergency Room. Call 911 if necessary. 12/08/16 2560 <Electronically signed by Robe Mary MD> Date Robe Mary MD Cosigner Signature (If Indicated): Date CC: Jimi Greenfield MD; Vicki Styles DO 08-Dec-2016 Knee 1 or 2 Views Result: Comments: See Note; NOTES: [facility] Imaging Services [address] [place] [address] Knee 1 or 2 Views MR#: [id number] Acct: [id number] Name: RAMU DEWITT Rep #: [id number] D OB: 1940 M 75 From: Shahab Carlos MD PCP: Vicki Styles DO Status: REG ER Study: Knee 1 or 2 Views Date of Exam: 12/08/16 Exam# [id number] Ordering Dr: Robe Mary MD STUDY: X-RAY [...] Shahab Carlos MD at 12:57 EDT Tel [phone], Service support , CC: Vicki Styles DO; Robe Mary MD Recycle Worker: Signed 08-Dec-2016 Chest 1 View (Portable) Result: Comments: See Note; NOTES: [facility] Imaging Services [address] [place] [address] Chest 1 View (Portable) MR#: [id number] Acct: [id number] Name: RAMU DEWITT Rep #: [id number] : 1940 M 75 From: Shahab Carlos MD PCP: Vicki Styles DO Status: REG ER Study: Chest 1 View (Portable) Date of Exam: 12/08/16 Exam# [id number] Ordering Dr: Robe Mary MD STUDY: X- [...] Shahab Carlos MD at 12:58 EDT Tel [phone], Service support , CC: Vicki Styles DO; Robe Mary MD Recycle Worker: Signed 07-Jan-2016 Chest 1 View (Portable) Result: Comments: See Note; NOTES: [facility] Imaging Services [address] [place] [address] Verdajose alejandro 4d Chest 1 View (Portable) MR#: [id number] Acct: [id number] Name: RAMU DEWITT Rep #: [id number] : 1940 M 75 From: Shahab Carlos MD PCP: Vicki Styles DO Status: REG ER Study: Chest 1 View (Portable) Date of Exam: 01/07/16 Exam# [id number] Ordering Dr: Ron Buchanan MD STUDY: X-RAY [...] Shahab Carlos MD at 15:38 EDT Tel [phone], Service support [phone], CC: Vicki Styles DO; Jerel Buchanan MD Recycle Worker: Signed 13-Nov-2015 Echocardiogram Complete Result: Comments: See Note; NOTES: [facility] Cardiovascular Services [address] [place] [address] Echo Complete 11/13/15 1006 MR#: [id number] Acct: [id number] Name: RAMU DEWITT Rep #: [id number] : 1940 74 From: Jimi Greenfield MD Attending Dr: Precious Cole Status: REG CLI Ordering Dr: Precious Cole Date: 11/13/15 Location: [facility] Sex: M C Admitted: Reas on [...] Dictated: 11/13/15 1006 Date Transcribed: 11/13/15 1256 Recycle Worker: Signed 08-Oct-2015 ELECTROCARDIOGRAM, COMPLETE (ECG) (56555) Result: [MEASUREMENTS ANALYSIS] Date of Test: 10/08/2015 09:07:11; Heart Rate: 98; AK Interval: 0; QRS: 114; QT Interval: 372; Corrected QT Interval (QTc): 438; P Wave [place]: -90; QRS [place]: -1; T Wave [place]: -33; Blood Pressure: 142/86 [ECG DIAGNOSTIC STATEMENTS] Date of Test: 10/08/2015 09:07:11; Summary: Atrial fibrillation -Nonspecific ST depression + Nonspecific T-abnormality -Nondiagnostic. ABNORMAL 09-Jul-2015 Chest 1 View (Portable) Result: Comments: See Note; NOTES: [facility] Imaging Services [address] [place] [address] Verdana 4d Chest 1 View (Portable) MR#: [id number] Acct: [id number] Name: RAMU MARTIN Rep #: [id number] : 1940 M 74 From: Noa Buchanan MD PCP: Vicki Styles DO Status: REG ER Study: Chest 1 View (Portable) Date of Exam: 07/09/15 Exam# [id number] Ordering Dr: Jerel Buchanan MD STUDY: X-RAY [...] with sternal wire sutures. Normal mediastinum and kaht. Normal visualized pulmonary arteries. Normal visualized aortic [...] at 17:21 EDT Tel , Service support [phone], RAD/Chest 1 View (Portable) IMPRESSION: New small pleural effusion with right b asilar lung consolidation. Persisting cardiomegaly. Electronically Signed: Noa Buchanan MD at 17:21 EDT Tel , Service support [phone], C C: Vicki Styles DO; Jerel Buchanan MD Recycle Worker: Signed 24-May-2015 Nuclear Stress Test - Chemical Result: Comments: See Note; NOTES: [facility] Imaging Services [address] [place] [address] Lorie 4d Nuclear Stress Test - Chemical MR#: [id number] Acct: [id number] N ani: RAMU DEWITT Rep #: [id number] : 1940 74 From: Jimi Greenfield MD [...] present. Jimi Greenfield MD T: NTS JOB: [id number] <Electronically signed by Jimi Greenfield MD> Date Jimi Greenfield MD CC: Vicki Styles DO Date Dictated: 05/24/15 1253 D ate Transcribed: 05/24/15 1253 Recycle Worker: Signed 18-Apr-2015 Chest 1 View (Portable) Result: Comments: See Note; NOTES: [facility] Imaging Services [address] [place] [address] Verdana 4d Chest 1 View (Portable) MR#: [id number] Acct: [id number] Name: RAMU MARTIN Rep #: [id number] : 1940 74 From: Shahab Carlos MD PCP: Vicki Styles DO Status: REG ER Study: Chest 1 View (Portable) Date of Exam: 04/18/15 Exam# [id number] Ordering D r: Ros Zuniga STUDY: X-RAY [...] Shahab Carlos MD at 13:57 EST Tel [phone], Service support [phone], RAD/Chest 1 View (P ortable) IMPRESSION: Thyromegaly and mild degree of CHF with bibasilar atelectasis. Electronically Signed: Shahab Carlos MD at 13:57 EST Tel [phone], Service support , CC: Ros Zuniga; Vicki Styles DO Recycle Worker: Signed 18-Apr-2015 EKG (83376) Comments: afib with RVR-- 150 -pt admits he hasnt taken bystolic >30 day Result: [MEASUREMENTS ANALYSIS] Date of Test: 04/18/2015 11:50:46; Heart Rate: 150; AK Interval: -612; QRS: 96; QT Interval: 302; Corrected QT Interval (QTc): 459; P Wave [place]: 1; QRS [place]: 15; T Wave [place] : -90; Blood Pressure: 124/82 [ECG DIAGNOSTIC STATEMENTS] Date of Test: 04/18/2015 11:50:46; Summary: Possible atrial fibrillation -Inferior infarct -age undetermined. -Nonspecific ST depression -Nondiagnostic. ABNORMAL 06-May-2014 Sleep Study Report Result: Comments: See Note; NOTES: [facility] [place] [address] Polysomnography with NCPAP MR#: [id number] Acct: [id number] Name: RAMU DEWITT Rep #: [id number] : 1940 73 From: Cezar Escalante MD PCP: Vicki Styles DO Status: REG CLI Ordering Dr.: Dana Osborne NP-C Date: 05/01/14 Sex: M C REFERRING PHYSICIAN: COREY Shah SLEEP HISTORY: This is a CPAP titration study performed on this 73-year-old male with a body mass index of 36.5 and an [place] Sleepiness Scale score of 8. Diagnostic polysomnogram [...] version). Please note that a reference to [facility] AHI in this report is consistent with the current Hypopnea definition according to Medicare Criteria and an AAS AHI reference is consistent with the current Hypopnea definition according to the AASM criteria. PROCEDURE: The study was attended continuously by a rim technician. Monitored parameters included left and right [...] Study Report Result: Comments: See Note; NOTES: [facility] [address] [place] [address] Polysomnography MR#: [id number] Acct: [id number] Name: RAMU DEWITT Rep #: [id number] : 1940 73 From: Dillon Miner MD PCP: Vicki Styles DO Status: REG CLI Ordering Dr.: Vicki Styles DO Date: 03/08/14 Sex: M C REFERRING PHYSICIAN: Dr. Styles. SLEEP HIS TORY: The patient is a 73-year-old gentleman with a calculated body mass index of 36.5 and an [place] Sleepiness Scale score of 8/24. He complains [...] version). Please note that a reference to [facility] AHI in this report is consistent with the current Hypopnea definition according t o Medicare Criteria and an AASM AHI reference is consistent with the current Hypopnea definition according to the AASM criteria. PROCEDURE: The study was attended continuously by a rim technician. Monitored parameters included left and right EOG, frontal, central, and occipital EEG, mental and submental EMG, left and right anterior tibialis EMG, signal ECG waveform, snore, continuous airflow w ith thermistor and nasal pressure transducer, chest and abdominal plethysmography efforts, oxygen saturation with heart rate, and body positioning with video monitoring. SLEEP STUDY DATA: [facility] polysomnogram began at 0939:27 p.m. and ended at 152841 a.m. for a total recording time of [...] Co-signature (if applicable) Date Signed 28-Dec-2013 Spirometry (44593) Result: 29-Aug-2013 Chest PA and Lateral Result: Comments: See Note; NOTES: [facility] Imaging Services [address] [place] [address] Radiology Report MR#: [id number] Acct: [id number] Name: RAMU DEWITT Rep #: [id number] : 1940 M 72 From: Shahab Carlos MD PCP: Vicki Styles DO Status: [facility] CLI Study: Chest PA and Lateral Date of Exam: 08/29/13 Exam# [id number] Ordering Dr: Vicki Styles DO STUDY: X-RAY [...] Shahab Carlos MD at 15:06 EDT Tel [phone], Service support [phone], CC: Vicki Styles DO Recycle Worker: Signed 24-Aug-2013 Spirometry (49900) Comments: obstruction present Result: Social History Name Dates Details Alcohol Use Comments: Occasional alcohol use Status: Active Caffeine Use Comments: 6 - 8 Glasses per day Status: Active Non Smoker/No Tobacco Use Status: Active Tobacco use: Former smoker. Comments: 08/26/11 Status: Active Smoking Status Name Dates Details Former smoker Vital Signs Date Test Result Details 23-Ecn-352594:13 Comments: [facility] and had a glaucoma test donehearing [...] kg/m2 Body Surface Area Calculated 2.08 m2 8-Tlw-512817:19 Pulse 68 /min Comments: Pattern: Regular Respiration [...] Area Calculated 2.05 m2 :36 Comments: hearing [facility] and had glaucoma test done [...] Surface Area Calculated 2.13 m2 :47 Comments: [facility] had a glaucoma test [...] kg/m2 Body Surface Area Calculated 2.15 m2 50-Xfh-992937:45 Pulse 55 /min Comments: Pattern: Regular O2 [...] kg/m2 Body Surface Area Calculated 2.12 m2 28-Pzd-723007:44 Pulse 58 /min Comments: Pattern: Regular Respiration [...] :19 Comments: before- BP 142/89 Sp02- 98% L-94darqk-IF 150/84 Sp02 97% P-60 Temperature 97.9 f [...] 0.00 cm Results Date Description Value Details 58-Cll-892161:16 CBC W/Diff, Automated Comments: [place] [facility] [address] [place], [place], [id number] Absolute Lymph 0.99 {X10_3/ul} (Normal) Range: 0.83-4.51 Absolute Neut 4.4 {X10_3/uL} (Normal) Range: 2.0-7.7 IM GRAN % 0.500 % (Normal) Range: 0.0-0.9 Comments: IG% - Immature Granulocytes (promyelocytes, myelocytes andmetamyelocytes) > 1% indicates that a LEFT SHIFT is Present. BASO% 0.3 % (Normal) Range: 0-1 EO% 4.0 % (Normal) Range: 0-5 MONO% 9.7 % (Normal) Range: 0-10 LY% 15.8 % (Abnormal) Range: 19-41 NEUT% 69.7 % (Normal) Range: 47-70 MPV 10.8 fL (Normal) Range: 6.2-12.0 PLT 202 K/mm3 (Normal) Range: 150-450 RDW SD 48.9 fL (Abnormal) Range: 35.1-43.9 RDW CV 14.3 % (Normal) Range: 11.6-14.6 MCHC 31.9 {g/gl} (Abnormal) Range: 32-36 MCH 30.7 pg (Normal) Range: 27.0-32.0 MCV 96.4 fL (Abnormal) Range: 80-94 HCT 43.0 % (Normal) Range: 40-54 HGB 13.7 g/dL (Normal) Range: 13.0-16.5 RBC 4.46 {M/mm3} (Abnormal) Range: 4.6-6.2 WBC 6.3 K/mm3 (Normal) Range: 4.4-11.0 85-Akj-059995:16 Comprehensive Metabolic Profil Comments: DR. ALVARADO ORDERED CMP CBCD URICDRLaquita GALLEGO ORDERED CMP [facility]TH [facility] [address] [place], [place], [id number] GAP 9 (Normal) Range: 5-15 CO2 30.0 mmol/L (Normal) Range: 21.0-32.0 CL 102 mmol/L (Normal) Range: 98-107 K 3.3 mmol/L (Abnormal) Range: 3.5-5.1 NA 141 mmol/L (Normal) Range: 136-145 T BILI 1.70 mg/dL (Abnormal) Range: 0.20-1.00 ALT 34 U/L (Normal) Range: 16-61 ALK P 113 U/L (Normal) Range: 45-117 AST 25 U/L (Normal) Range: 15-37 CA 8.2 mg/dL (Abnormal) Range: 8.5-10.1 A/G 1.0 {RATIO} (Normal) Range: 0.9-2.4 GLOB 3.7 g/dL (Normal) Range: 2.2-4.2 ALB 3.6 g/dL (Normal) Range: 3.2-5.0 T PROT 7.3 g/dL (Normal) Range: 6.4-8.2 BUN/CRE 17.0 {RATIO} (Normal) Range: 10-20 EST GFR - AA 57 mL/min (Abnormal) Comments: GFR Calc EST GFR 47 mL/min (Abnormal) Comments: Non- GFR Calc CREAT,SERUM 1.53 mg/dL (Abnormal) Range: 0.70-1.30 Comments: The validity of the calculated GFR AND GFRAA in patients over70 years has not been determined. Clinical correlation isessential. BUN 26 mg/dL (Abnormal) Range: 7-18 GLU 147 mg/dL (Abnormal) Range: 74-106 Comments: Fasting Glucose result greater than or equal to 126 mg/dLsuggests DIABETES MELLITUS per A.D.A. criteria.Please note revised GLUCOSE reference range pyembzeky41/02/2018. 74-Uhi-498396:16 PTHIN 156.2 pg/mL (Abnormal) Comments: [facility] [address] [place], [place], [id number] Range: 18.4-80.1 81-Fql-669700:16 Uric Acid Comments: DR. ALVARADO ORDERED CMP CBCD URICDR. LASHONDA ORDERED CMP PTH [facility] [address] [place], [place], [id number] URIC 7.7 mg/dL (Abnormal) Range: 3.5-7.2 Comments: The drugs N-Acetylcysteine and Metamizole may falselydepress this assay. 53-Jdj-912587:16 Vitamin D,25 Hydroxy Comments: [facility] [address] [place], [id number] Vitamin D 25-OH 22.6 ng/mL (Abnormal) Range: 29.95-100.01 Comments: Vitamin D 25(OH) Status Range Deficiency <20 ng/mL (50nmol/L) Insuffciency 20 - 30 ng/mL (50 - 75 nmol/L) Sufficiency 30 - 100 ng/mL (75 - 250 nmol/L) Toxicity >100 ng/mL (>250 nmol/L) 25-Yxn-479659:06 CBC W/Diff, Automated Comments: [facility] [address] [place], [id number] Absolute Lymph 1.37 {X10_3/ul} (Normal) Range: 0.83-4.51 [...] 4.6-6.2 WBC 7.1 K/mm3 (Normal) Range: 4.4-11.0 36-Cvb-652875:06 Comprehensive Metabolic Profil Comments: [facility] [address] [place], [address] GAP 12 (Normal) Range: 5-15 CO2 26.0 [...] A.D.A. criteria.Please note revised GLUCOSE reference range sqotfdcoo13/02/2018. 29-Kgg-911251:06 Uric Acid Comments: [facility] [address] [place], [address] URIC 9.2 mg/dL (Abnormal) Range: 3.5-7.2 Comments: The drugs N-Acetylcysteine and Metamizole may falselydepress this assay. :39 CBC W/Diff, Automated Comments: [facility] [address] [place], [id number] Absolute Lymph 1.40 {X10_3/ul} (Normal) Range: 0.83-4.51 [...] 4.6-6.2 WBC 6.4 K/mm3 (Normal) Range: 4.4-11.0 :39 Comprehensive Metabolic Profil Comments: [facility] [address] [place], [place], [address] GAP 8 (Normal) Range: 5-15 CO2 30.0 [...] A.D.A. criteria.Please note revised GLUCOSE reference range uukxsigcj92/02/2018. 18-Orx-394753:39 Uric Acid Comments: [facility] [address] [place], [place], [address] URIC 9.1 mg/dL (Abnormal) Range: 3.5-7.2 Comments: The drugs N-Acetylcysteine and Metamizole may falselydepress this assay. 1-Wvy-805840:57 HgA1C , Office (09140) HgA1C , Office 6.9 % (Normal) Range: 4.6 - 7.1 1-Omd-162413:57 Blood Glucose , Office (32909) Blood Glucose , Office 173 (Normal) 28-Fvi-194535:26 CBC W/Diff, Automated Comments: [facility] [address]so[address] [place], [address] Absolute Lymph 1.30 {X10_3/ul} (Normal) Range: 0.83-4.51 [...] 4.6-6.2 WBC 9.0 K/mm3 (Normal) Range: 4.4-11.0 12-Yav-770240:26 CCP IgG Antibodies Comments: [facility] (refer to report for specific site)refer to report for address and phone number ANTI-CCP 178718 8 {units} (Normal) Range: 0-19 Comments: Negative <20 Weak positive 20 - 39 Moderate positive 40 - 59 Strong positive >59 20-Ime-635655:26 Comprehensive Metabolic Profil Comments: [facility] [address] [place], [place], [address] GAP 9 (Normal) Range: 5-15 CO2 28.0 [...] criteria.Please note revised GLUCOSE reference range /02/2018. 39-Uid-279866:26 CRP Comments: [facility] [address]fe[address] [place], [place], [address] C-REACTIVE PROT 8.60 mg/L (Abnormal) Range: 0.0-3.0 Comments: C-Reactive Protein (CRP) provides useful information for thediagnosis, therapy and monitoring of inflammatory processesand associated diseases. For the evaluation of Relative Riskfor Cardiovascular Dise ase, a High Sensitivity CRP (HSCRP)should be ordered. :26 Erythrocyte Sed Rate Comments: [facility] [address] [place], [address] SED RATE 18 mm/h (Normal) Range: 0-20 94-Huc-680097:26 Hep B Surface Antibodies Comments: [facility] (refer to report for specific site)refer to report for address and phone number Hep B Patricia AB Non Reactive (Normal) Comments: Non Reactive: Inconsistent with immunity, less than 10 mIU/mL Reactive: Consistent with immunity, greater than 9.9 mIU/ mL 72-Bec-342272:26 Hepatitis B Surface Ag Comments: [facility] (refer to report for specific site)refer to report for address and phone number HB SURF AG Negative (Normal) Comments: Performed at: - [facility] [id number] Director: Christopher Molina PhD, Phone: [phone] at: [facility] [id number] Director: Dillon Falk MD, Phone: [phone] 42-Jia-469859:26 Hepatitis C Antibodies Comments: [facility] (refer to report for specific site)refer to report for address and phone number HEP C AB <0.1 {s/co_ratio} (Normal) Range: 0.0-0.9 Comments: Negative: < 0.8 Indeterminate: 0.8 - 0.9 Positive: > 0.9 The CDC recommends that a positive HCV antibody result be followed up with a HCV Nucleic Acid Amplification test (429048). 89-Onq-050755:26 Rheumatoid Factor Comments: [facility] [address] [place], [place], [phone] RHEUMATOID FAC < 10.0 {IU/mL} (Normal) 18-Tvb-720541:26 Uric Acid Comments: [facility] [address] [place], [address] URIC 10.7 mg/dL (Abnormal) Range: 3.5-7.2 Comments: The drugs N-Acetylcysteine and Metamizole may falselydepress this assay. 02-Ecu-208113:20 CCP ANTIBODY (83680) Comments: PATIENT NOT FASTINGPERFORMED BY: [address] [employer] Tiogur3707 [facility] [id number] BY: [address] [id number] CCP Antibodies IgG/IgA 8 {units} (Normal) Range: 0-19 Comments: Negative <20 Weak positive 20 - 39 Moderate positive 40 - 59 Strong positive >59 53-Ryp-356694:20 SED RATE ERYTHROCYTE Comments: PATIENT NOT FASTINGPERFORMED BY: [address] [employer] [address] [place] [address] [id number] BY: [address] [id number] (03370) Sedimentation Rate-Westergren 32 mm/h (Abnormal) Range: 0-30 06-Oeq-539310:20 C-REACTIVE PROTEIN Comments: PATIENT NOT FASTINGPERFORMED BY: [address] [employer] Ikrmxv5149 [facility] [id number] BY: [address] [id number] (96024) C-Reactive Protein, Quant 24.6 mg/L (Abnormal) Range: 0.0-4.9 53-Nkr-114310:20 RHEUMATOID FACTOR-QUANT Comments: PATIENT NOT FASTINGPERFORMED BY: [address] Food RestaurantsJames V[place] 6580270 [facility] [id number] BY: [address] [id number] (57534) RA Latex Turbid. <10.0 {IU/mL} (Normal) Range: 0.0-13.9 40-Ecv-544585:20 THAIS (ANTINUCLEAR ANTIBODY) Comments: PATIENT NOT FASTINGPERFORMED BY: [address] [employer] RestaurantsJames V[place] 65[address]270 [facility] [id number] BY: [facility]1447 [facility] [id number] (09449) THAIS Direct Negative (Normal) 9-Vzg-022615:59 MAGNESIUM (79359) Comments: PATIENT WAS FASTINGPERFORMED BY: [facility] Vlrjau1669 [address] RoadDublin [place] [id number] Magnesium, Serum 2.1 mg/dL (Normal) Range: 1.6-2.3 6-Qzs-004034:59 PHOSPHORUS (73953) Comments: PATIENT WAS FASTINGPERFORMED BY: [facility] Reagnc2195 [address] RoadDublin [place] [id number] Phosphorus, Serum 3.1 mg/dL (Normal) Range: 2.5-4.5 6-Hmh-610715:59 PARATHORMONE (72849) Comments: PATIENT WAS FASTINGPERFORMED BY: [facility] Bngswm6689 [address] RoadDublin [place] [id number] PTH, Intact 67 pg/mL (Abnormal) Range: 15-65 6-Omb-146727:59 CALCIFEDIOL (82201) Comments: PATIENT WAS FASTINGPERFORMED BY: [facility] Zrnfqg5111 [address] RoadDublin [place] [id number] Vitamin D, 25-Hydroxy 21.5 ng/mL (Abnormal) Range: 30.0-100.0 Comments: Vitamin D deficiency has been defined by the [place] ofMedicine and an Endocrine Society practice guideline as alevel of serum 25-OH vitamin D less than 20 ng/mL (1,2).The Endocrine Society went on to further define vitamin Dinsufficiency as a level between 21 and 29 ng/mL (2).1. IOM ([place] of Medicine). 2010. Dietary reference intakes for calcium and D. [place]: The National Academies Press.2. Marcelle MF, Justin NC, Amira ELIAS, et al. Evaluation, treatment, and prevention of vitamin D deficiency: an Endocrine Society clinical practice guideline. JCEM. 2010; 96(7):1911-30. 0-Ksk-571828:59 TSH (35656) Comments: PATIENT WAS FASTINGPERFORMED BY: [facility] Mlbqbl0462 [address] RoadDublin [place] [id number] TSH 3.200 {uIU/mL} (Normal) Range: 0.450-4.500 8-Lsn-250156:59 METABOLIC PANEL, COMPREHENSIVE Comments: PATIENT WAS FASTINGPERFORMED BY: [address] Food RestaurantsGallup Indian Medical CenterTzfrai4057 [facility] [id number] (37479) ALT (SGPT) 13 [iU]/L (Normal) Range: 0-44 [...] Glucose, Serum 166 mg/dL (Abnormal) Range: 65-99 5-Nyy-079910:59 LIPID PANEL (98094) Comments: PATIENT WAS FASTINGPERFORMED BY: [address] Food RestaurantsKindred Hospital at WayneVwzcnl9237 [facility] [id number] LDL/HDL Ratio 2.4 {ratio_units} (Normal) Range: 0.0-3.6 Comments: LDL/HDL Ratio Men Women 1/2 Avg.Risk 1.0 1.5 Av g.Risk 3.6 3.2 2X Avg.Risk 6.2 5.0 3X Avg.Risk 8.0 6.1 LDL Cholesterol Calc 101 mg/dL (Abnormal) Range: 0-99 VLDL Cholesterol Bharat 28 mg/dL (Normal) Range: 5-40 HDL Cholesterol 42 mg/dL (Normal) Triglycerides 139 mg/dL (Normal) Range: 0-149 Cholesterol, Total 171 mg/dL (Normal) Range: 100-199 1-Nrs-242567:59 CBC W/AUTO DIFF WBC (01154) Comments: PATIENT WAS FASTINGPERFORMED BY: [facility] Lcixuy9518 [facility] [id number] Immature Grans (Abs) 0.0 {x10E3/uL} (Normal) Range: [...] (Normal) Range: 3.4-10.8 :51 HgA1C , Office (70975) HgA1C , Office 7.0 % (Normal) Range: 4.6 - 7.1 :51 Blood Glucose , Office (52543) Blood Glucose , Office 197 (Normal) 8-Vhi-742200:35 Basic Metabolic Profile (BMP) Comments: 'TROP' Serial specimen #1, #2, #3, or #4: 1[facility] [address] [place], [place], [address] GAP 11 (Normal) Range: 5-15 CO2 25.0 [...] 126 mg/dLsuggests DIABETES MELLITUS per A.D.A. criteria. :35 BNP,B-Type NATRIURETIC PEPTIDE Comments: [facility] [address] [place], [place], [address] B-TYPE KAE PEP 1319.4 pg/mL (Abnormal) Range: 0-100 :35 CBC W/Diff, Automated Comments: [facility] [address] [place], [address] Absolute Lymph 0.87 {X10_3/ul} (Normal) [...] 4.6-6.2 WBC 12.7 K/mm3 (Abnormal) Range: 4.4-11.0 8-Qxn-787276:35 Troponin-I Comments: 'TROP' Serial specimen #1, #2, #3, or #4: [address] [place] [address] [address] [place], [address] TROPONIN-I 0.03 ng/mL (Normal) Comments: TROPONIN-I EXPECTED VALUES <0.05 NEGATIVE 0.06 - 0.59 AT RISK OF MS > OR = 0.60 SUGGEST MS 8-Nnb-010810:35 Microscopic Examination Comments: PATIENT WAS FASTINGPERFORMED BY: CB [facility] Ifzcdz[address] CartivaUn[facility] [place] [place] [id number] Bacteria Few (Normal) Mucus Threads Present (Normal) Cast Type Hyaline casts (Normal) Casts Present {/lpf} (Abnormal) Epithelial Cells (non renal) None seen {/hpf} (Normal) Range: 0 - 10 RBC 0-2 {/hpf} (Normal) Range: 0 - 2 WBC 0-5 {/hpf} (Normal) Range: 0 - 5 6-Bzm-434804:00 PSA (PROSTATE SPECIFIC Comments: send copy to dr bianchi; PATIENT NOT FASTINGPERFORMED BY: [employer] Qmnqtt8351 [facility] [id number] ANTIGEN) (V76.44) Prostate Specific Ag, 2.1 ng/mL (Normal) Range: 0.0-4.0 Serum Comments: [employer] ECLIA methodology. .According to the [place] [employer], Serum PSA shoulddecrease and remain at undetectable levels after radicalprostatectomy. The AUA defines biochemical recurrence as an initialPSA value 0.2 ng/mL or greater followed by a subsequent confirmatoryPSA value 0.2 ng/mL or greater.Values obtained with d ifferent assay methods or kits cannot be usedinterchangeably. Results cannot be interpreted as absolute evidenceof the presence or absence of malignant disease. 3-Vlg-758881:35 TSH (92477) Comments: PATIENT WAS FASTINGPERFORMED BY: [employer] Dwhvqh9672 [facility] [id number] TSH 4.070 {uIU/mL} (Normal) Range: 0.450-4.500 8-Oim-349648:35 URINALYSIS, W/ MICRO (15034) Comments: PATIENT WAS FASTINGPERFORMED BY: [employer] Weekva0111 [facility] [id number]; can review at next appt Microscopic Examination See below: (Normal) Comments: Microscopic was indicated and was performed. Nitrite, Urine Negative (Normal) Urobilinogen,Semi-Qn 1.0 mg/dL (Normal) Range: 0.2-1.0 Bilirubin Negative (Normal) Occult Blood Negative (Normal) Ketones Negative (Normal) Glucose Negative (Normal) Protein 1+ (Abnormal) WBC Esterase Negative (Normal) Appearance Clear (Normal) Urine-Color Yellow (Normal) pH 7.0 (Normal) Range: 5.0-7.5 Specific [place] 1.013 (Normal) Range: 1.005-1.030 1-Uvk-726098:35 MICROALBUMIN: CREATININE RATIO Comments: PATIENT WAS FASTINGPERFORMED BY: [address] Food RestaurantsKindred Hospital at WayneGgogah8937 [facility] [id number] (69767) AND (62558) Microalb/Creat Ratio 136.1 {mg/g_creat} (Abnormal) Range: 0.0-30.0 Microalbumin, Urine 118.3 ug/mL (Normal) Creatinine, Urine 86.9 mg/dL (Normal) 5-Ryy-021150:35 METABOLIC PANEL, COMPREHENSIVE Comments: PATIENT WAS FASTINGPERFORMED BY: [facility]CoKindred Hospital at WayneLcjvtj2125 [facility] [id number] (93018) ALT (SGPT) 10 [iU]/L (Normal) Range: 0-44 [...] Glucose, Serum 126 mg/dL (Abnormal) Range: 65-99 :35 LIPID PANEL (46007) Comments: PATIENT WAS FASTINGPERFORMED BY: [employer]70 [facility] [id number] LDL/HDL Ratio 2.4 {ratio_units} (Normal) Range: 0.0-3.6 Comments: LDL/HDL Ratio Men Women 1/2 Avg.Risk 1.0 1.5 Av g.Risk 3.6 3.2 2X Avg.Risk 6.2 5.0 3X Avg.Risk 8.0 6.1 LDL Cholesterol Calc 99 mg/dL (Normal) Range: 0-99 VLDL Cholesterol Bharat 25 mg/dL (Normal) Range: 5-40 HDL Cholesterol 41 mg/dL (Normal) Triglycerides 123 mg/dL (Normal) Range: 0-149 Cholesterol, Total 165 mg/dL (Normal) Range: 100-199 7-Zqv-782814:35 CBC W/AUTO DIFF WBC (27358) Comments: PATIENT WAS FASTINGPERFORMED BY: Blekkolin6370 [facility] [id number] Immature Grans (Abs) 0.0 {x10E3/uL} (Normal) Range: [...] 4.14-5.80 WBC 6.7 {x10E3/uL} (Normal) Range: 3.4-10.8 6-Pvb-701076:35 CALCIFIDIOL (21678) VIT D 25 Comments: PATIENT WAS FASTINGPERFORMED BY: [employer] [facility]At[facility] [id number] Vitamin D, 25-Hydroxy 37.2 ng/mL (Normal) Range: 30.0-100.0 Comments: Vitamin D deficiency has been defined by the [place] ofMedicine and an Endocrine Society practice guideline as alevel of serum 25-OH vitamin D less than 20 ng/mL (1,2).The Endocrine Society went on to further define vitamin Dinsufficiency as a level between 21 and 29 ng/mL (2).1. IOM ([place] of Medicine). 2010. Dietary reference intakes for calcium and D. [place]: The National Academies Press.2. Marcelle MF, Justin NC, Amira ELIAS, et al. Evaluation, treatment, and prevention of vitamin D deficiency: an Endocrine Society clinical practice guideline. JCEM. 2010; 96(7):1911-30. 0-Rqi-758347:21 HgA1C , Office (22613) HgA1C , Office 6.2 % (Normal) Range: 4.6 - 7.1 2-Qba-738306:21 Blood Glucose , Office (32544) Blood Glucose , Office 162 (Normal) 8-Bmx-417000:56 Microscopic Examination Comments: PATIENT WAS FASTINGPERFORMED BY: [facility] Klqulw8640 [facility] [id number] Bacteria None seen (Normal) Mucus Threads Present (Normal) Cast Type Hyaline casts (Normal) Casts Present {/lpf} (Abnormal) Epithelial Cells (non renal) 0-10 {/hpf} (Normal) Range: 0 - 10 RBC 0-2 {/hpf} (Normal) Range: 0 - 2 WBC None seen {/hpf} (Normal) Range: 0 - 5 :56 CALCIFIDIOL (83938) VIT D 25 Comments: PATIENT WAS FASTINGPERFORMED BY: [employer]70 [facility] [id number] Vitamin D, 25-Hydroxy 34.6 ng/mL (Normal) Range: 30.0-100.0 Comments: Vitamin D deficiency has been defined by the [place] ofMain Campus Medical Centercine and an Endocrine Society practice guideline as alevel of serum 25-OH vitamin D less than 20 ng/mL (1,2).The Endocrine Society went on to further define vitamin Dinsufficiency as a level between 21 and 29 ng/mL (2).1. IOM ([place] of Medicine). 2010. Dietary reference intakes for calcium and D. [place]: The National Academies Press.2. Marcelle MF, Justin NC, Amira ELIAS, et al. Evaluation, treatment, and prevention of vitamin D deficiency: an Endocrine Society clinical practice guideline. JCEM. 2010; 96(7):1911-30. :56 TSH (72939) Comments: PATIENT WAS FASTINGPERFORMED BY: [employer] Ettyor3[address] [facility] [id number] TSH 5.530 {uIU/mL} (Abnormal) Range: 0.450-4.500 :56 URINALYSIS, W/ MICRO (93317) Comments: PATIENT WAS FASTINGPERFORMED BY: [employer] Pqemds0506 [facility] [id number] Microscopic Examination See below: (Normal) Comments: Microscopic was indicated and was performed. Microscopic Examination MICRON (Normal) Comments: Microscopic follows if indicated. Nitrite, Urine Negative (Normal) Urobilinogen,Semi-Qn 1.0 mg/dL (Normal) Range: 0.2-1.0 Bilirubin Negative (Normal) Occult Blood Negative (Normal) Ketones Negative (Normal) Glucose Negative (Normal) Protein Negative (Normal) WBC Esterase Negative (Normal) Appearance Clear (Normal) Urine-Color Yellow (Normal) pH 7.0 (Normal) Range: 5.0-7.5 Specific [place] 1.009 (Normal) Range: 1.005-1.030 6-Vas-889357:56 MICROALBUMIN: CREATININE RATIO Comments: PATIENT WAS FASTINGPERFORMED BY: [employer] Dyahnv8290 [facility] [id number] (73528) AND (61856) Microalb/Creat Ratio <12.1 {mg/g_creat} (Normal) Range: 0.0-30.0 Microalbumin, Urine <3.0 ug/mL (Normal) Creatinine, Urine 24.7 mg/dL (Normal) 6-Jqq-314562:56 METABOLIC PANEL, COMPREHENSIVE Comments: PATIENT WAS FASTINGPERFORMED BY: [address] [employer] Bjhgtw6004 [facility] [id number] (89843) ALT (SGPT) 8 [iU]/L (Normal) Range: 0-44 [...] Glucose, Serum 109 mg/dL (Abnormal) Range: 65-99 2-Vzq-261730:56 CBC W/AUTO DIFF WBC (71757) Comments: PATIENT WAS FASTINGPERFORMED BY: [facility]CoKindred Hospital at WayneUjwfbd5899 [facility] [id number] Immature Grans (Abs) 0.0 {x10E3/uL} (Normal) Range: [...] 4.14-5.80 WBC 6.9 {x10E3/uL} (Normal) Range: 3.4-10.8 :56 LIPID PANEL (06055) Comments: PATIENT WAS FASTINGPERFORMED BY: [facility]CoKindred Hospital at WayneLmrdte0702 [facility] [id number] LDL/HDL Ratio 2.3 {ratio_units} (Normal) Range: 0.0-3.6 Comments: LDL/HDL Ratio Men Women 1/2 Avg.Risk 1.0 1.5 Av g.Risk 3.6 3.2 2X Avg.Risk 6.2 5.0 3X Avg.Risk 8.0 6.1 LDL Cholesterol Calc 106 mg/dL (Abnormal) Range: 0-99 VLDL Cholesterol Bharat 25 mg/dL (Normal) Range: 5-40 HDL Cholesterol 46 mg/dL (Normal) Triglycerides 127 mg/dL (Normal) Range: 0-149 Cholesterol, Total 177 mg/dL (Normal) Range: 100-199 7-Tqq-444857:36 HgA1C , Office (98502) HgA1C , Office 6.4 % (Normal) Range: 4.6 - 7.1 :36 Blood Glucose , Office (85201) Blood Glucose , Office 129 (Normal) 82-Ulu-512373:20 Blood Glucose , Office (61004) Blood Glucose , Office 111 (Normal) 96-Lcg-021684:20 HgA1C , Office (11112) HgA1C , Office 6.4 % (Normal) Range: 4.6 - 7.1 :25 CBC W/AUTO DIFF WBC (61776) Comments: PATIENT NOT FASTINGPERFORMED BY: [facility] Adkgto9539 [facility] [id number] Immature Grans (Abs) 0.0 {x10E3/uL} (Normal) Range: [...] 4.14-5.80 WBC 6.0 {x10E3/uL} (Normal) Range: 3.4-10.8 89-Tal-283255:25 METABOLIC PANEL, COMPREHENSIVE Comments: PATIENT NOT FASTINGPERFORMED BY: [facility]CoKindred Hospital at WayneKobyey2033 [facility] [id number] (01629) ALT (SGPT) 13 [iU]/L (Normal) Range: 0-44 [...] Glucose, Serum 158 mg/dL (Abnormal) Range: 65-99 4-Jhh-815648:03 Basic Metabolic Profile (BMP) Comments: 'TROP' Serial specimen #1, #2, #3, or #4: 1[facility] [address]gccqm[address] [place], [place], [address] GAP 6 (Normal) Range: 5-15 CO2 35.0 [...] 126 mg/dLsuggests DIABETES MELLITUS per A.D.A. criteria. 9-Vyw-117650:03 BNP,B-Type NATRIURETIC PEPTIDE Comments: [facility] Qrqbndupry[address] [facility] [address] [place], [place], [address] B-TYPE KAE PEP 732.8 pg/mL (Abnormal) Range: 0-100 1-Jam-186837:03 CBC W/Diff, Automated Comments: [facility] [address] [place], [place], [address] Absolute Lymph 0.93 {X10_3/ul} (Normal) Range: 0.83-4.51 [...] 4.6-6.2 WBC 6.8 K/mm3 (Normal) Range: 4.4-11.0 9-Sfo-953701:03 Liver Profile Comments: 'TROP' Serial specimen #1, #2, #3, or #4: [address] [place] [address] [address] [place], [address] D BILI 0.39 mg/dL (Abnormal) Range: 0.00-0.30 T BILI 1.40 mg/dL (Abnormal) Range: 0.20-1.00 ALT 16 U/L (Normal) Range: 12-78 ALK P 90 U/L (Normal) Range: 50-136 AST 18 U/L (Normal) Range: 15-37 GLOB 3.7 g/dL (Abnormal) Range: 2.3-3.5 ALB 3.4 g/dL (Normal) Range: 3.4-5.0 T PROT 7.1 g/dL (Normal) Range: 6.4-8.2 6-Asl-221502:03 Troponin-I Comments: 'TROP' Serial specimen #1, #2, #3, or #4: [address] [place] [address] Qbodulansh[address] [place], [address] TROPONIN-I < 0.02 ng/mL (Normal) Comments: TROPONIN-I EXPECTED VALUES <0.05 NEGATIVE 0.06 - 0.59 AT RISK OF MS > OR = 0.60 SUGGEST MS 2-Vqk-551354:07 Urinalysis, Office (42293) UA - LEUKOCYTE ESTERASE Negative (Normal) UA - NITRITE Negative (Normal) URINE UROBILINGN KATELIN TIMED 4 mg/dL (Normal) UA - PROTEIN 30 mg/dL (Normal) UA - PH 7 (Normal) UA - BLOOD Negative (Normal) UA - SPECIFIC GRAVITY 1.020 (Normal) UA - KETONES Negative mg/dL (Normal) UA - BILIRUBIN Negative (Normal) UA - GLUCOSE Negative (Normal) 49-Ukc-458105:59 HgA1C , Office (82845) HgA1C , Office 6.3 % (Normal) Range: 4.6 - 7.1 63-Edv-286769:59 Blood Glucose , Office (48002) Blood Glucose , Office 177 (Normal) :44 Basic Metabolic Profile (BMP) Comments: [facility] [address]agl[address] [place], [place], [address] GAP 7 (Normal) Range: 5-15 CO2 32.0 [...] 126 mg/dLsuggests DIABETES MELLITUS per A.D.A. criteria. 4-Zlo-614781:32 Microscopic Examination Comments: PATIENT NOT FASTINGPERFORMED BY: [facility] Etnnmm1804 [facility] [id number] Bacteria None seen (Normal) Mucus Threads Present (Normal) Cast Type Hyaline casts (Normal) Casts Present {/lpf} (Abnormal) Epithelial Cells (non renal) 0-10 {/hpf} (Normal) Range: 0 - 10 RBC 0-2 {/hpf} (Normal) Range: 0 - 2 WBC 0-5 {/hpf} (Normal) Range: 0 - 5 :32 CALCIFIDIOL (49668) VIT D 25 Comments: PATIENT NOT FASTINGPERFORMED BY: [facility]RShrin[facility] Huriao2144 [facility] [id number] Vitamin D, 25-Hydroxy 34.1 ng/mL (Normal) Range: 30.0-100.0 Comments: Vitamin D deficiency has been defined by the [place] ofMedicine and an Endocrine Society practice guideline as alevel of serum 25-OH vitamin D less than 20 ng/mL (1,2).The Endocrine Society went on to further define vitamin Dinsufficiency as a level between 21 and 29 ng/mL (2).1. IOM ([place] of Medicine). 2010. Dietary reference intakes for calcium and D. [place]: The National Academies Press.2. Marcelle MF, Justin NC, Amira ELIAS, et al. Evaluation, treatment, and prevention of vitamin D deficiency: an Endocrine Society clinical practice guideline. JCEM. 2010; 96(7):1911-30. 9-Njj-534577:32 TSH (13532) Comments: PATIENT NOT FASTINGPERFORMED BY: modulRCorewell Health [facility] Hospital6370 [facility] [id number] TSH 5.190 {uIU/mL} (Abnormal) Range: 0.450-4.500 :32 URINALYSIS, W/ MICRO (10327) Comments: PATIENT NOT FASTINGPERFORMED BY: [facility]6370 [facility] [id number] Microscopic Examination See below: (Normal) Comments: Microscopic was indicated and was performed. Microscopic Examination MICRON (Normal) Comments: Microscopic follows if indicated. Nitrite, Urine Negative (Normal) Urobilinogen,Semi-Qn 1.0 mg/dL (Normal) Range: 0.2-1.0 Bilirubin Negative (Normal) Occult Blood Negative (Normal) Ketones Negative (Normal) Glucose Negative (Normal) Protein Trace (Normal) WBC Esterase Negative (Normal) Appearance Clear (Normal) Urine-Color Yellow (Normal) pH 6.5 (Normal) Range: 5.0-7.5 Specific [place] 1.019 (Normal) Range: 1.005-1.030 :32 MICROALBUMIN: CREATININE RATIO Comments: PATIENT NOT FASTINGPERFORMED BY: Anelletti [address] Food RestaurantsKindred Hospital at [id number] [facility] [id number] ([id number]) AND ([id number]) Microalb/Creat Ratio 43.8 {mg/g_creat} (Abnormal) Range: 0.0-30.0 Microalbumin, Urine 51.0 ug/mL (Normal) Creatinine, Urine 116.5 mg/dL (Normal) :32 METABOLIC PANEL, COMPREHENSIVE Comments: PATIENT NOT FASTINGPERFORMED BY: Anelletti [address] [employer] Hzivvq8645 [facility] [id number] (49371) ALT (SGPT) 13 [iU]/L (Normal) Range: 0-44 [...] Glucose, Serum 122 mg/dL (Abnormal) Range: 65-99 3-Dce-501560:32 LIPID PANEL (95337) Comments: PATIENT NOT FASTINGPERFORMED BY: [facility] [id number] LDL/HDL Ratio 1.9 {ratio_units} (Normal) Range: 0.0-3.6 [...] Cholesterol, Total 145 mg/dL (Normal) Range: 100-199 9-Khm-038151:32 CBC W/AUTO DIFF WBC Comments: PATIENT NOT FASTINGPERFORMED BY: [facility]6370 [facility] [id number] Information: [id number] (02967) Immature Grans (Abs) 0.0 {x10E3/uL} (Normal) Range: [...] 4.14-5.80 WBC 6.5 {x10E3/uL} (Normal) Range: 3.4-10.8 :32 PSA (PROSTATE SPECIFIC Comments: send copy to dr mast; PATIENT NOT FASTINGPERFORMED BY: [employer] [place] [id number] ANTIGEN) (V76.44) Prostate Specific Ag, 2.1 ng/mL (Normal) Range: 0.0-4.0 Serum Comments: [employer] ECLIA methodology. .According to the [place] U[employer] Association, Serum PSA shoulddecrease and remain at undetectable levels after radicalprostatectomy. The AUA defines biochemical recurrence as an initialPSA value 0.2 ng/mL or greater followed by a subsequent confirmatoryPSA value 0.2 ng/mL or greater.Values obtained with d ifferent assay methods or kits cannot be usedinterchangeably. Results cannot be interpreted as absolute evidenceof the presence or absence of malignant disease. 31-Bbd-758347:20 Metabolic Panel, Basic Comments: PATIENT NOT FASTINGPERFORMED BY: [employer]6370 [facility] [id number] Information: [id number] (12902) Calcium, Serum 9.0 mg/dL (Normal) Range: 8.6-10.2 [...] Glucose, Serum 90 mg/dL (Normal) Range: 65-99 :26 BNP,B-Type NATRIURETIC PEPTIDE Comments: [facility] Dhcfqyvlwo1108 [facility] [place], [place], [id number] B-TYPE KAE PEP 247.5 pg/mL (Abnormal) Range: 0-100 :26 CBC W/Diff, Automated Comments: [facility] Whqnrtxfga3970 [facility] [place], [place], [phone] Absolute Lymph 0.87 {X10_3/ul} (Normal) Range: 0.83-4.51 [...] 4.6-6.2 WBC 8.2 K/mm3 (Normal) Range: 4.4-11.0 4-Xrt-751081:08 Basic Metabolic Profile (BMP) Comments: [facility] [address] [place], [place], [phone](397) GAP 11 (Normal) Range: 5-15 CO2 30.0 [...] <126 mg/dLsuggests IMPAIRED HOMEOSTASIS per A.D.A. criteria. 8-Efi-035697:00 Basic Metabolic Profile (BMP) Comments: [facility] [address] [place], [place], [phone] GAP 12 (Normal) Range: 5-15 CO2 26.0 [...] 126 mg/dLsuggests DIABETES MELLITUS per A.D.A. criteria. 34-Bou-324420:33 Basic Metabolic Profile (BMP) Comments: [facility] Is[address]qcdrh[address] [facility] [place], [place], [phone] GAP 5 (Normal) Range: 5-15 CO2 26.0 [...] 126 mg/dLsuggests DIABETES MELLITUS per A.D.A. criteria. 03-Jbx-133298:07 Basic Metabolic Profile (BMP) Comments: [facility] [address] [place], [place], [phone] GAP 0 (Abnormal) Range: 5-15 CO2 30.0 [...] 7-18 GLU 101 mg/dL (Normal) Range: 70-110 09-Mhm-060109:07 BNP,B-Type NATRIURETIC PEPTIDE Comments: [facility] [address] [place], [address] B-TYPE KAE PEP 560.9 pg/mL (Abnormal) Range: 0-100 51-Rjj-011036:04 ALBUMIN SERUM (53313) Comments: PATIENT NOT FASTINGPERFORMED BY: [employer] Hlqxfn6044 [facility] [id number] Albumin, Serum 3.4 g/dL (Abnormal) Range: 3.5-4.8 04-Xvr-781422:04 BASIC METABOLIC w/Ionized Comments: PATIENT NOT FASTINGPERFORMED BY: [employer] LabCoBioMedFlex [address] [id number] Information: [id number] Ca++ (43702) Calcium, Serum 8.5 mg/dL (Abnormal) Range: 8.6-10.2 [...] Glucose, Serum 171 mg/dL (Abnormal) Range: 65-99 4-Kjz-901564:34 Calcium Ionized Comments: [facility] (refer to report for specific site)refer to report for address and phone number [place] [address] Test not performed (Normal) Comments: Patient has been credited for testing not performed. Pleasehave patient return if testing is still required. :36 Anion Gap Comments: [facility] [address] [place], [address] GAP 3 (Abnormal) Range: 5-15 :36 BUN 18 mg/dL (Normal) Comments: [address] [place], [address] Range: 7-18 :36 BUN/Creat Ratio Comments: [address] [place], [address] BUN/CRE 11.0 {RATIO} (Normal) Range: 10-20 :36 Carbon Dioxide Comments: [address] [place], [address] CO2 30.0 mmol/L (Normal) Range: 21.0-32.0 :36 Chloride Comments: [place] [address] [place], [address] CL 109 mmol/L (Abnormal) Range: 98-107 :36 Creatinine, Serum Comments: [address], [address] CREAT,SERUM 1.64 mg/dL (Abnormal) Range: 0.70-1.30 Comments: The validity of the calculated GFR AND GFRAA in patients over70 years has not been determined. Clinical correlation isessential. :36 Glucose Comments: [facility] [address] [place], [place], [address] GLU 157 mg/dL (Abnormal) Range: 70-110 Comments: Fasting Glucose result greater than or equal to 126 mg/dLsuggests DIABETES MELLITUS per A.D.A. criteria. :36 Potassium Comments: [facility] [address] [place], [place], [phone] K 4.3 mmol/L (Normal) Range: 3.5-5.1 :36 Sodium Level Comments: [facility] [address] [place], [place], [phone] NA 142 mmol/L (Normal) Range: 136-145 :36 Urinalysis, Office (17115) UA - LEUKOCYTE ESTERASE Negative (Normal) UA - NITRITE Negative (Normal) URINE UROBILINGN KATELIN TIMED Normal mg/dL (Normal) UA - PROTEIN Negative mg/dL (Normal) UA - PH 6.0 (Normal) Comments: 5.5 UA - BLOOD Hemolyzed Trace (Normal) UA - SPECIFIC GRAVITY 1.005 (Normal) UA - KETONES Negative mg/dL (Normal) UA - BILIRUBIN Negative (Normal) UA - GLUCOSE Negative (Normal) :06 Metabolic Panel, Basic Comments: PATIENT NOT FASTINGPERFORMED BY: [facility]CoKindred Hospital at WayneNbvzdh8127 [facility] [id number] Information: [id number]; will review at next appt. (19173) Calcium, Serum 9.3 mg/dL (Normal) Range: 8.6-10.2 [...] Glucose, Serum 111 mg/dL (Abnormal) Range: 65-99 75-Ddi-697472:07 URINE DAWIT CULTURE-IDENTIFICATN Comments: PATIENT NOT FASTINGPERFORMED BY: LabCoKindred Hospital at WayneCugtms3178 [facility] [id number] (83060) Result 1 MUG (Normal) Comments: Mixed urogenital flora1,000 Colonies/mL Urine Culture,Comprehensive Final report (Normal) 18-Leb-543202:07 URINALYSIS (74865) Comments: PATIENT NOT FASTINGPERFORMED BY: LabCoKindred Hospital at WayneBbpcmt1214 [facility] [id number] Information: [id number] Microscopic Examination MICNIP (Normal) Comments: Microscopic not indicated and not performed. Nitrite, Urine Negative (Normal) Urobilinogen,Semi-Qn 0.2 mg/dL (Normal) Range: 0.2-1.0 Bilirubin Negative (Normal) Occult Blood Negative (Normal) Ketones Negative (Normal) Glucose Negative (Normal) Protein Negative (Normal) WBC Esterase Negative (Normal) Appearance Clear (Normal) Urine-Color Yellow (Normal) pH 6.0 (Normal) Range: 5.0-7.5 Specific [place] 1.010 (Normal) Range: 1.005-1.030 1-Mgd-365318:02 Basic Metabolic Profile (BMP) Comments: [facility] [address] [place], [address] GAP 9 (Normal) Range: 5-15 CO2 33.0 [...] 126 mg/dLsuggests DIABETES MELLITUS per A.D.A. criteria. 7-Gri-358251:02 BNP,B-Type NATRIURETIC PEPTIDE Comments: [facility] [address] [place], [address] B-TYPE KAE PEP 202.1 pg/mL (Abnormal) Range: 0-100 51-Rds-989782:55 BNP,B-Type NATRIURETIC PEPTIDE Comments: [facility] [address] [place], [address] B-TYPE KAE PEP 288.3 pg/mL (Abnormal) Range: 0-100 51-Ylm-660393:48 BNP,B-Type NATRIURETIC PEPTIDE Comments: [facility] [address] [place], [address] B-TYPE KAE PEP 231.4 pg/mL (Abnormal) Range: 0-100 29-Xvh-033114:33 ASSAY, NATIURETIC PEPTIDE Comments: PATIENT NOT FASTINGPERFORMED BY: LabCoKindred Hospital at WayneVyiahg1156 [facility] [id number] Information: [id number] (80178) B-Type Natriuretic Peptide 296.5 pg/mL (Abnormal) Range: 0.0-100.0 82-Uwd-407439:15 Basic Metabolic Profile (BMP) Comments: Serial Specimen #1, #2 or #3? 1'TROP' Serial specimen #1, #2, #3, or #4: [facility] [address] [place], [address] GAP 7 (Normal) Range: 5-15 [...] 126 mg/dLsuggests DIABETES MELLITUS per A.D.A. criteria. 98-Ier-517191:15 BNP,B-Type NATRIURETIC PEPTIDE Comments: [facility] Grsrtptnkg3865 [facility]. [place], [place], [phone] B-TYPE KAE PEP 200.1 pg/mL (Abnormal) Range: 0-100 52-Akp-673416:15 CBC W/Diff, Automated Comments: [facility] Fzgcvuwhqg2413 [facility] [place], [place], [address](392) Absolute Lymph 1.42 {X10_3/ul} (Normal) Range: 0.83-4.51 [...] 4.6-6.2 WBC 7.6 K/mm3 (Normal) Range: 4.4-11.0 77-Eft-017436:15 CK-MB Quantitative and Index Comments: Serial Specimen #1, #2 or #3? 1'TROP' Serial specimen #1, #2, #3, or #4: [address] [place] [address] Zmw[address]qqutb5812 [place], [address] CKRI 1.6 % (Abnormal) Range: 0.0-1.4 Comments: RELATIVE INDEX >1.5% IS PRESUMPTIVELY POSITIVE CPKMB 3.3 ng/mL (Normal) Range: 0.0-5.0 Comments: CK-MB and RI Interpretation MB Relative Index Non-AMI <or= 5 NA Indeterminate > 5 <or= 4 AMI > 5 > 4 CPK TOTAL 208 U/L (Normal) Range: 39-308 45-Exc-103788:15 Troponin-I Comments: Serial Specimen #1, #2 or #3? 1'TROP' Serial specimen #1, #2, #3, or #4: [address] [place] [address] Enogtv[address]chv7164 [place], [address] TROPONIN-I 0.03 ng/mL (Normal) Comments: TROPONIN-I EXPECTED VALUES <0.05 NEGATIVE 0.06 - 0.59 AT RISK OF MS > OR = 0.60 SUGGEST MS 00-Dwc-478451:06 HgA1C , Office (58515) HgA1C , Office 8.0 % (Abnormal) Range: 4.6 - 7.1 65-Iqh-021831:06 Blood Glucose , Office (88162) Blood Glucose , Office 143 (Normal) 0-Ufi-731803:12 BUN 15 mg/dL (Normal) Comments: Test performed at:[facility] [address] [place] [address] Range: 7-18 0-Smu-461976:12 Partial Thromboplast Time Comments: Test performed at:[facility] [address] [place] [address] PTT 25.9 s (Normal) Range: 24.1-36.2 5-Zzc-433948:12 Platelet Count Comments: Test performed at:[facility] [address] [place] [address] PLT 243 K/mm3 (Normal) Range: 150-450 7-Pnm-228092:12 Prothrombin Time w/INR Comments: Test performed at:[facility] [address] [place] [address] INR 0.9 (Normal) PROTIME 12.3 s (Normal) Range: 11.7-14.9 0-Rkh-295061:12 Serum Creatinine AND GFR Comments: Test performed at:[facility] [address] [place], [place] [address] CREAT,SERUM 1.3 mg/dL (Normal) Range: 0.8-1.3 57-Ire-247905:09 HgA1C , Office (72778) HgA1C , Office 7.1 % (Normal) Range: 4.6 - 7.1 44-Vri-778230:09 Blood Glucose , Office (00980) Blood Glucose , Office 141 (Normal) :43 BUN 14 mg/dL (Normal) Range: 7-18 :43 CRE CREAT 1.1 mg/dL (Normal) Range: 0.8-1.3 :43 PLT 184 K/mm3 (Normal) Range: 150-450 :43 PT INR 0.9 (Normal) PTP 12.4 s (Normal) Range: 11.7-14.9 Comments: Please note revised PROTIME reference range ennxhucbo10/14/15. 73-Jml-23235:43 PTT 26.3 s (Normal) Range: 24.1-36.2 65-Nuh-557541:25 HgA1C , Office (15609) HgA1C , Office 6.7 % (Normal) Range: 4.6 - 7.1 76-Fyw-872771:25 Blood Glucose , Office (13678) Blood Glucose , Office 140 (Normal) 00-Mvb-675502:25 Microscopic Examination Comments: PATIENT WAS FASTINGPERFORMED BY: [employer] [facility] [id number] Bacteria None seen (Normal) Mucus Threads Present (Normal) Epithelial Cells (non renal) None seen {/hpf} (Normal) Range: 0 - 10 RBC 0-3 {/hpf} (Normal) Range: 0 - 3 Comments: Effective September 04, 2013 the reference interval for RBC will be changing to: 0 - 2 /hpf. WBC 0-5 {/hpf} (Normal) Range: 0 - 5 64-Vke-464160:47 LIPID PANEL (60074) Comments: PATIENT WAS FASTINGPERFORMED BY: [employer] [facility] [id number] LDL/HDL Ratio 2.7 {ratio_units} (Normal) Range: 0.0-3.6 LDL Cholesterol Calc 90 mg/dL (Normal) Range: 0-99 HDL Cholesterol 33 mg/dL (Abnormal) Comments: According to ATP-III Guidelines, HDL-C >59 mg/dL is considered anegative risk factor for CHD. VLDL Cholesterol Bharat 27 mg/dL (Normal) Range: 5-40 Triglycerides 133 mg/dL (Normal) Range: 0-149 Cholesterol, Total 150 mg/dL (Normal) Range: 100-199 14-Zyr-236090:47 Vitamin D Hydroxy (83386) Comments: PATIENT WAS FASTINGPERFORMED BY: [employer]6370 [facility] [id number] Vitamin D, 25-Hydroxy 28.7 ng/mL (Abnormal) Range: 30.0-100.0 Comments: Vitamin D deficiency has been defined by the [place] ofMedicine and an Endocrine Society practice guideline as alevel of serum 25-OH vitamin D less than 20 ng/mL (1,2).The Endocrine Society went on to further define vitamin Dinsufficiency as a level between 21 and 29 ng/mL (2).1. IOM ([place] of Medicine). 2010. Dietary reference intakes for calcium and D. [place]: The National AcademTrendingGames Press.2. Marcelle MF, Justin NC, Amira ELIAS, et al. Evaluation, treatment, and prevention of vitamin D deficiency: an Endocrine Society clinical practice guideline. JCEM. 2010; 96(2):1911-30.; ADDENDA: appt 21-Aug-201311:47 TSH (02806) Comments: PATIENT WAS FASTINGPERFORMED BY: [facility]irc[facility] HoldingsH[facility] [id number] TSH 1.700 {uIU/mL} (Normal) Range: 0.450-4.500 62-Pxp-379105:47 URINALYSIS, W/ MICRO (62214) Comments: PATIENT WAS FASTINGPERFORMED BY: [facility] [id number] Microscopic Examination See below: (Normal) Microscopic Examination MICRON (Normal) Comments: Microscopic follows if indicated. Nitrite, Urine Negative (Normal) Urobilinogen,Semi-Qn 1.0 mg/dL (Normal) Range: 0.0-1.9 Bilirubin Negative (Normal) Occult Blood Negative (Normal) Ketones Negative (Normal) Glucose Negative (Normal) Protein Negative (Normal) WBC Esterase Negative (Normal) Appearance Clear (Normal) Urine-Color Yellow (Normal) pH 6.0 (Normal) Range: 5.0-7.5 Specific [place] 1.019 (Normal) Range: 1.005-1.030 29-Swu-793323:47 MICROALBUMIN: CREATININE RATIO Comments: PATIENT WAS FASTINGPERFORMED BY: [facility] [id number] (13902) AND (04236) Microalb/Creat Ratio 5.9 {mg/g_creat} (Normal) Range: 0.0-30.0 Microalbumin, Urine 10.0 ug/mL (Normal) Range: 0.0-17.0 Creatinine, Urine 169.3 mg/dL (Normal) Range: 22.0-328.0 19-Qfw-122279:47 METABOLIC PANEL, COMPREHENSIVE Comments: PATIENT WAS FASTINGPERFORMED BY: [address] Food RestaurantsGallup Indian Medical CenterLiqmmf6655 [facility] [id number] (96354) ALT (SGPT) 13 [iU]/L (Normal) Range: 0-44 [...] Glucose, Serum 118 mg/dL (Abnormal) Range: 65-99 78-Wcx-708626:47 CBC WITH MANUAL DIFF Comments: PATIENT WAS FASTINGPERFORMED BY: [address] Food RestaurantsKindred Hospital at WayneDsejdn7310 [facility] [id number] Information: [id number] (71744) Immature Grans (Abs) 0.0 {x10E3/uL} (Normal) Range: [...] 4.14-5.80 WBC 7.0 {x10E3/uL} (Normal) Range: 3.4-10.8 01-Upv-538427:38 HgA1C , Office (58404) HgA1C , Office 6.2 % (Normal) Range: 4.6 - 7.1 84-Zid-516703:38 Blood Glucose , Office (09889) Blood Glucose , Office 119 (Normal) 90-Ayh-602711:28 HgA1C , Office (00389) HgA1C , Office 6.7 % (Normal) Range: 4.6 - 7.1 24-Rym-337251:28 Blood Glucose , Office (29878) Blood Glucose , Office 131 (Normal) 01-Bqv-433853:08 MICROALBUMIN: CREATININE RATIO Comments: PATIENT WAS FASTINGPERFORMED BY: [facility]6370 [facility] [id number] (35933) AND (56811) Microalb/Creat Ratio 14.3 {mg/g_creat} (Normal) Range: 0.0-30.0 Microalbumin, Urine 24.5 ug/mL (Abnormal) Range: 0.0-17.0 Creatinine, Urine 171.3 mg/dL (Normal) Range: 22.0-328.0 :46 Microscopic Examination Comments: PATIENT NOT FASTINGPERFORMED BY: [facility]6370 [facility] [id number] Bacteria Few (Normal) Mucus Threads Present (Normal) Epithelial Cells (non renal) 0-10 {/hpf} (Normal) Range: 0 - 10 RBC 0-3 {/hpf} (Normal) Range: 0 - 3 WBC 0-5 {/hpf} (Normal) Range: 0 - 5 :46 TSH (94929) Comments: PATIENT NOT FASTINGPERFORMED BY: [facility]6370 [facility] [id number] TSH 2.720 {uIU/mL} (Normal) Range: 0.450-4.500 :46 URINALYSIS, W/ MICRO (89052) Comments: PATIENT NOT FASTINGPERFORMED BY: [facility]6370 [facility] [id number] Microscopic Examination See below: (Normal) Microscopic Examination MICRON (Normal) Comments: Microscopic follows if indicated. Nitrite, Urine Negative (Normal) Urobilinogen,Semi-Qn 1.0 mg/dL (Normal) Range: 0.0-1.9 Bilirubin Negative (Normal) Occult Blood Negative (Normal) Ketones Negative (Normal) Glucose Negative (Normal) Protein Negative (Normal) WBC Esterase Negative (Normal) Appearance Clear (Normal) Urine-Color Yellow (Normal) pH 6.0 (Normal) Range: 5.0-7.5 Specific [place] 1.015 (Normal) Range: 1.005-1.030 :46 MICROALBUMIN: CREATININE RATIO Comments: PATIENT NOT FASTINGPERFORMED BY: modulRCoKindred Hospital at WayneZtcqiy8696 [facility] [id number] (03146) AND (66473) Microalb/Creat Ratio 10.0 {mg/g_creat} (Normal) Range: 0.0-30.0 Microalbumin, Urine 12.6 ug/mL (Normal) Range: 0.0-17.0 Creatinine, Urine 125.8 mg/dL (Normal) Range: 22.0-328.0 51-Fkq-017465:46 METABOLIC PANEL, COMPREHENSIVE Comments: PATIENT NOT FASTINGPERFORMED BY: [facility] Ejixnh1075 [facility] [id number] (18185) ALT (SGPT) 18 [iU]/L (Normal) Range: 0-44 [...] Glucose, Serum 116 mg/dL (Abnormal) Range: 65-99 09-Iga-822658:46 LIPID PANEL (67236) Comments: PATIENT NOT FASTINGPERFORMED BY: modulRCoKindred Hospital at WayneUutltc4975 [facility] [id number] LDL/HDL Ratio 2.1 {ratio_units} (Normal) Range: 0.0-3.6 [...] MANUAL DIFF Comments: PATIENT NOT FASTINGPERFORMED BY: [facility] Trcuhb7385 [facility] [id number] Information: [id number] (22890) Immature Grans (Abs) 0.0 {x10E3/uL} (Normal) Range: [...] (Normal) Range: 4.0-10.5 :38 HgA1C , Office (88877) HgA1C , Office 6.9 % (Normal) Range: 4.6 - 7.1 :38 Blood Glucose , Office (28632) Blood Glucose , Office 124 (Normal) 44-Ekd-451425:08 HgA1C , Office (09000) HgA1C , Office 6.5 % (Normal) Range: 4.6 - 7.1 18-Txf-59523:10 Blood Glucose , Office (43961) Blood Glucose , Office 129 (Normal) 61-Uti-085439:08 LIPID PANEL (42311) Comments: PATIENT WAS FASTINGPERFORMED BY: [employer] [facility] [id number] LDL/HDL Ratio 2.2 {ratio_units} (Normal) Range: 0.0-3.6 LDL Cholesterol Calc 97 mg/dL (Normal) Range: 0-99 VLDL Cholesterol Bharat 28 mg/dL (Normal) Range: 5-40 HDL Cholesterol 45 mg/dL (Normal) Comments: According to ATP-III Guidelines, HDL-C >59 mg/dL is considered anegative risk factor for CHD. Triglycerides 140 mg/dL (Normal) Range: 0-149 Cholesterol, Total 170 mg/dL (Normal) Range: 100-199 43-Jlz-915839:08 HEPATIC FUNCTION PANEL Comments: PATIENT WAS FASTINGPERFORMED BY: [address] Food RestaurantsKindred Hospital at WayneTddprv5235 [facility] [id number] Information: [id number] (26103) ALT (SGPT) 25 [iU]/L (Normal) Range: 0-55 [...] (Normal) Range: 6.0-8.5 :55 HgA1C , Office (11171) HgA1C , Office 6.9 % (Normal) Range: 4.6 - 7.1 :55 Blood Glucose , Office (20638) Blood Glucose , Office 126 (Normal) 01-Rwi-377666:07 Hemoglobin Glyclated (HGB Comments: PATIENT NOT FASTINGPERFORMED BY: [employer] [facility] [id number] Information: [id number] A1C) (86463) Hemoglobin A1c 6.8 % (Abnormal) Range: 4.8-5.6 Comments: . Increased risk for diabetes: 5.7 - 6.4 Diabetes: >6.4 Glycemic control for adults with diabetes: <7.0 :58 Microscopic Examination Comments: PATIENT WAS FASTINGPERFORMED BY: [employer] Yjryzv3274 [facility] [id number] Bacteria Few (Normal) Mucus Threads Present (Normal) Epithelial Cells (non renal) None seen {/hpf} (Normal) Range: 0 - 10 RBC 0-3 {/hpf} (Normal) Range: 0 - 3 WBC 0-5 {/hpf} (Normal) Range: 0 - 5 :58 PSA Total+% Free Comments: PATIENT WAS FASTINGPERFORMED BY: [employer] [facility] [id number] Information: [id number] % Free PSA 16.3 % (Normal) Comments: [...] Comments: [employer] ECLIA methodology. .According to the [place] U[employer], Serum PSA shoulddecrease and remain [...] WAR (Normal) Comments: PATIENT WAS FASTINGPERFORMED BY: [employer]70 [facility]At[facility] [id number] 3:58 Comments: Written Authorization Received.Authorization received from DR. STYLES [id number] by Machelle Trejo 43-Zng-293413:07 ASSAY, PSA, FREE (32189) Comments: PATIENT NOT FASTINGPERFORMED BY: [employer]6370 SportsBeepDavis [facility] [id number] Information: [id number],2ND ORDER NO DRAW F EE % Free [...] Comments: [employer] ECLIA methodology. .According to the [place] U[employer] Association, Serum PSA shoulddecrease and remain at undetectable levels after radicalprostatectomy. The AUA defines biochemical recurrence as an initialPSA value 0.2 ng/mL or greater followed by a subsequent confirmatoryPSA value 0.2 ng/mL or greater.Values obtained with d ifferent assay methods or kits cannot be usedinterchangeably. Results cannot be interpreted as absolute evidenceof the presence or absence of malignant disease. 2-Cpq-561141:17 Bilirubin, Total/Direct, Serum Comments: PATIENT NOT FASTINGPERFORMED BY: [employer]6370 SportsBeepDavis [facility] Center [id number] Bilirubin, Indirect 1.53 mg/dL (Abnormal) Range: 0.10-0.80 Bilirubin, Direct 0.37 mg/dL (Normal) Range: 0.00-0.40 Bilirubin, Total 1.9 mg/dL (Abnormal) Range: 0.0-1.2 6-Ekx-386630:17 Prostate-Specific Ag, Serum Comments: PATIENT NOT FASTINGPERFORMED BY: [employer]6370 SportsBeepDavis [facility] Center [id number] Prostate Specific Ag, 11.5 ng/mL (Abnormal) Range: 0.0-4.0 Serum Comments: [employer] ECLIA methodology. .According to the [place] [employer], Serum PSA shoulddecrease and remain [...] Total+% Free Comments: PATIENT NOT FASTINGPERFORMED BY: TERRIE [address] [employer] Elvhyp6032 [facility] [id number] % Free PSA 19.7 % (Normal) Comments: [...] Comments: [employer] ECLIA methodology. .According to the [place] [employer], Serum PSA shoulddecrease and remain [...] SPRCS (Normal) Comments: PATIENT NOT FASTINGPERFORMED BY: [address] [employer] Toxvra0275 [facility] [id number] :17 Comments: This report has been generated by your request for additional testing.The additional request may have required some testing to be repeated.Because of analytic variability, the results may not correspond exactly to the previous report. Interpret these results appropriately. Written Authorization WAR (Normal) Comments: PATIENT NOT FASTINGPERFORMED BY: [address]el[address] Food RestaurantsKindred Hospital at WayneUcpypm8682 Madison RoadDublin [place] [id number] :17 Comments: Written Authorization Received.Authorization received from VICKI STYLES DO [id number] by Candi Salazar :01 Microscopic Examination Comments: PATIENT WAS FASTINGPERFORMED BY: [facility] Ffevrp0813 Madison RoadDublin [place] [id number] Bacteria None seen (Normal) Mucus Threads Present (Normal) Epithelial Cells (non renal) None seen {/hpf} (Normal) Range: 0 - 10 RBC None seen {/hpf} (Normal) Range: 0 - 3 WBC 0-5 {/hpf} (Normal) Range: 0 - 5 :01 Vitamin D Hydroxy (97120) Comments: PATIENT WAS FASTINGPERFORMED BY: [facility] Wcdchi0009 [address] RoadDublin [place] [id number] Vitamin D, 25-Hydroxy 17.2 ng/mL (Abnormal) Range: 30.0-100.0 Comments: Vitamin D deficiency has been defined by the [place] of[employer] and an Endocrine Society practice guideline as alevel of serum 25-OH vitamin D less than 20 ng/mL (1,2).The Endocrine Society went on to further define vitamin Dinsufficiency as a level between 21 and 29 ng/mL (2).1. IOM ([place] of Medicine). 2010. Dietary reference intakes for calcium and D. [place]: The National Academies Press.2. Marcelle MF, Justin NC, Amira ELIAS, et al. Evaluation, treatment, and prevention of vitamin D deficiency: an Endocrine Society clinical practice guideline. JCEM. 2010; 96(7):1911-30. :01 PSA (PROSTATE SPECIFIC Comments: PATIENT WAS FASTINGPERFORMED BY: [facility] Amzetr[address]ublin [place] [id number] ANTIGEN) (V76.44) Prostate Specific Ag, 7.6 ng/mL (Abnormal) Range: 0.0-4.0 Serum Comments: Temo ECLIA methodology. .According to the [place] [employer], Serum PSA shoulddecrease and remain at undetectable levels after radicalprostatectomy. The AUA defines biochemical recurrence as an initialPSA value 0.2 ng/mL or greater followed by a subsequent confirmatoryPSA value 0.2 ng/mL or greater.Values obtained with d ifferent assay methods or kits cannot be usedinterchangeably. Results cannot be interpreted as absolute evidenceof the presence or absence of malignant disease. TSH (68020) Comments: PATIENT WAS FASTINGPERFORMED BY: [facility] [id number] TSH 2.530 {uIU/mL} (Normal) Range: 0.450-4.500 URINALYSIS, W/ MICRO (74279) Comments: PATIENT WAS FASTINGPERFORMED BY: [employer] [place] [facility] [id number] Microscopic Examination See below: (Normal) Microscopic Examination MICRON (Normal) Comments: Microscopic follows if indicated. Nitrite, Urine Negative (Normal) Urobilinogen,Semi-Qn 0.2 mg/dL (Normal) Range: 0.0-1.9 Bilirubin Negative (Normal) Occult Blood Negative (Normal) Ketones Negative (Normal) Glucose Negative (Normal) Protein Negative (Normal) WBC Esterase Negative (Normal) Appearance Clear (Normal) Urine-Color Yellow (Normal) pH 6.5 (Normal) Range: 5.0-7.5 Specific [place] 1.015 (Normal) Range: 1.005-1.030 MICROALBUMIN: CREATININE RATIO Comments: PATIENT WAS FASTINGPERFORMED BY: [employer] [place] [facility] [id number] ([id number]) AND (98448) Microalb/Creat Ratio 30.3 {mg/g_creat} (Abnormal) Range: 0.0-30.0 Microalbumin, Urine 33.5 ug/mL (Abnormal) Range: 0.0-17.0 Creatinine, Urine 110.7 mg/dL (Normal) Range: 22.0-328.0 : METABOLIC PANEL, COMPREHENSIVE Comments: PATIENT WAS FASTINGPERFORMED BY: [employer] MadisonArthaY[facility]Davis [facility] [id number] (54058) ALT (SGPT) 23 [iU]/L (Normal) Range: 0-55 [...] Glucose, Serum 133 mg/dL (Abnormal) Range: 65-99 67-Igg-43596:01 LIPID PANEL (27297) Comments: PATIENT WAS FASTINGPERFORMED BY: [facility]Co[facility] at WayneHdmquf8966 [facility] [id number] LDL/HDL Ratio 2.5 {ratio_units} (Normal) Range: 0.0-3.6 LDL Cholesterol Calc 103 mg/dL (Abnormal) Range: 0-99 VLDL Cholesterol Bharat 40 mg/dL (Normal) Range: 5-40 HDL Cholesterol 42 mg/dL (Normal) Comments: According to ATP-III Guidelines, HDL-C >59 mg/dL is considered anegative risk factor for CHD. Triglycerides 201 mg/dL (Abnormal) Range: 0-149 Cholesterol, Total 185 mg/dL (Normal) Range: 100-199 05-Oxz-15743:01 CBC WITH MANUAL DIFF Comments: PATIENT WAS FASTINGPERFORMED BY: [facility]6370 [facility] [id number] Information: [id number] (94601) Immature Grans (Abs) 0.0 {x10E3/uL} (Normal) Range: [...] (Normal) Range: 4.0-10.5 :24 HgA1C , Office (70956) HgA1C , Office 6.7 % (Normal) Range: 4.6 - 7.1 :24 Blood Glucose , Office (35590) Blood Glucose , Office 131 (Normal) :50 HgA1C , Office (09962) HgA1C , Office 6.3 % (Normal) Range: 4.6 - 7.1 :50 Blood Glucose , Office (69031) Blood Glucose , Office 116 (Normal) :05 HgA1C , Office (59173) HgA1C , Office 6.7 % (Normal) Range: 4.6 - 7.1 :58 URINALYSIS, W/ MICRO (39686) Comments: PATIENT WAS FASTINGPERFORMED BY: [employer]70 [facility] [id number] Microscopic Examination See below: (Normal) Microscopic Examination MICRON (Normal) Comments: Microscopic follows if indicated. Nitrite, Urine Negative (Normal) Urobilinogen,Semi-Qn 0.2 mg/dL (Normal) Range: 0.0-1.9 Bilirubin Negative (Normal) Occult Blood Negative (Normal) Ketones Negative (Normal) Glucose Negative (Normal) Protein Negative (Normal) WBC Esterase Negative (Normal) Appearance Clear (Normal) Urine-Color Yellow (Normal) pH 6.5 (Normal) Range: 5.0-7.5 Specific [place] 1.015 (Normal) Range: 1.005-1.030 :58 METABOLIC PANEL, COMPREHENSIVE Comments: PATIENT WAS FASTINGPERFORMED BY: [employer] Xyyfkq3890 [facility] [id number] (36550) ALT (SGPT) 23 [iU]/L (Normal) Range: 0-55 [...] Glucose, Serum 126 mg/dL (Abnormal) Range: 65-99 96-Feh-566850:58 CBC WITH MANUAL DIFF Comments: PATIENT WAS FASTINGPERFORMED BY: [facility]CoKindred Hospital at WayneEdkags4065 [facility] [id number] Information: [id number] (93042) Immature Grans (Abs) 0.0 {x10E3/uL} (Normal) Range: [...] 4.14-5.80 WBC 8.3 {x10E3/uL} (Normal) Range: 4.0-10.5 56-Lzy-429989:58 LIPID PANEL (79718) Comments: PATIENT WAS FASTINGPERFORMED BY: [employer]70 [facility] [id number] LDL/HDL Ratio 2.7 {ratio_units} (Normal) Range: 0.0-3.6 LDL Cholesterol Calc 116 mg/dL (Abnormal) Range: 0-99 VLDL Cholesterol Bharat 45 mg/dL (Abnormal) Range: 5-40 HDL Cholesterol 43 mg/dL (Normal) Comments: According to ATP-III Guidelines, HDL-C >59 mg/dL is considered anegative risk factor for CHD. Triglycerides 225 mg/dL (Abnormal) Range: 0-149 Cholesterol, Total 204 mg/dL (Abnormal) Range: 100-199 07-Swm-255330:58 MICROALBUMIN: CREATININE RATIO Comments: PATIENT WAS FASTINGPERFORMED BY: [facility]areKindred [facility] at WayneBelqyd6146 [facility] [id number] ([id number]) AND (98768) Microalb/Creat Ratio 16.0 {mg/g_creat} (Normal) Range: 0.0-30.0 Microalbumin, Urine 22.3 ug/mL (Abnormal) Range: 0.0-17.0 Creatinine, Urine 139.1 mg/dL (Normal) Range: 22.0-328.0 93-Ksh-282526:58 TSH (12989) Comments: PATIENT WAS FASTINGPERFORMED BY: [facility] Gvymus8498 [facility] [id number] TSH 3.200 {uIU/mL} (Normal) Range: 0.450-4.500 :44 TSH (04681) Comments: PATIENT WAS FASTINGPERFORMED BY: [facility]6370 [facility] [id number] TSH 2.540 {uIU/mL} (Normal) Range: 0.450-4.500 :44 MICROALBUMIN: CREATININE RATIO Comments: PATIENT WAS FASTINGPERFORMED BY: [facility]6370 [facility] [id number] (18147) AND (17681) Microalb/Creat Ratio 22.8 {mg/g_creat} (Normal) Range: 0.0-30.0 Microalbumin, Urine 47.4 ug/mL (Abnormal) Range: 0.0-17.0 Creatinine, Urine 207.7 mg/dL (Normal) Range: 22.0-328.0 :44 CBC with manual diff Comments: PATIENT WAS FASTINGPERFORMED BY: [facility]6370 [facility] [id number] Information: ADD [id number] AND DRAW FEE 99 2006 (11718) Immature Grans (Abs) 0.0 {x10E3/uL} (Normal) Range: [...] 4.10-5.60 WBC 6.9 {x10E3/uL} (Normal) Range: 4.0-10.5 79-Xmk-45335:44 Metabolic Panel, Comprehensive Comments: PATIENT WAS FASTINGPERFORMED BY: [facility]CoKind[facility] at WayneVldwvz2134 [facility] [id number] (72403) ALT (SGPT) 22 [iU]/L (Normal) Range: 0-55 [...] mg/dL (Abnormal) Range: 65-99 :44 Lipid Panel (22087) Comments: PATIENT WAS FASTINGPERFORMED BY: [employer] [id number]; appt 11/26/10 LDL Cholesterol Calc 109 mg/dL (Abnormal) Range: 0-99 LDL/HDL Ratio 2.4 {ratio_units} (Normal) Range: 0.0-3.6 HDL Cholesterol 46 mg/dL (Normal) Comments: According to ATP-III Guidelines, HDL-C >59 mg/dL is considered anegative risk factor for CHD. VLDL Cholesterol Bhaart 37 mg/dL (Normal) Range: 5-40 Triglycerides 183 mg/dL (Abnormal) Range: 0-149 Cholesterol, Total 192 mg/dL (Normal) Range: 100-199 81-Mxi-931193:56 Vitamin D Hydroxy Comments: PATIENT NOT FASTINGPERFORMED BY: [employer] LabPeela6370 [facility] [id number] Information: [id number] (22732) Vitamin D, 25-Hydroxy 19.4 ng/mL (Abnormal) Range: 32.0-100.0 Comments: Recent studies consider the lower limit of 32.0 ng/mL to be athreshold for optimal health.Ashu JIMENEZ. J Nutr. 2004;135(2):317-22. :03 HEPATIC FUNCTION PANEL Comments: PATIENT WAS FASTINGPERFORMED BY: [address] [employer] RestaurantsKindred Hospital at WayneLaervq2785 [facility] [id number] Information: [id number] (94332) Alkaline Phosphatase, S 72 [iU]/L (Normal) Range: 25-160 ALT (SGPT) 24 [iU]/L (Normal) Range: 0-55 AST (SGOT) 21 [iU]/L (Normal) Range: 0-40 Bilirubin, Direct 0.38 mg/dL (Normal) Range: 0.00-0.40 Albumin, Serum 4.0 g/dL (Normal) Range: 3.6-4.8 Bilirubin, Total 1.6 mg/dL (Abnormal) Range: 0.0-1.2 Protein, Total, Serum 6.9 g/dL (Normal) Range: 6.0-8.5 :03 LIPID PANEL (22735) Comments: PATIENT WAS FASTINGPERFORMED BY: [address] [employer] Chvpws3302 [facility] [id number] LDL/HDL Ratio 1.7 {ratio_units} (Normal) Range: 0.0-3.6 [...] MANUAL DIFF Comments: PATIENT NOT FASTINGPERFORMED BY: [address] Food RestaurantsKindred Hospital at WayneEhrkpq5325 [facility] [id number] Information: [id number] (17219) Immature Grans (Abs) 0.0 {x10E3/uL} (Normal) Range: [...] 9.0 {x10E3/uL} (Normal) Range: 4.0-10.5 :55 Magnesium (43027) Comments: PATIENT NOT FASTINGPERFORMED BY: [facility] Qipgfy6021 [facility] [id number] Magnesium, Serum 2.1 mg/dL (Normal) Range: 1.6-2.6 :55 Metabolic Panel, Basic (00683) Comments: PATIENT NOT FASTINGPERFORMED BY: [facility] Yimyun4110 [facility] [id number] Calcium, Serum 9.3 mg/dL (Normal) Range: 8.6-10.2 [...] Microscopic Examination Comments: PATIENT WAS FASTINGPERFORMED BY: [employer] [facility] [id number] Bacteria None seen (Normal) Cast Type Hyaline casts (Normal) Casts Present {/lpf} (Abnormal) Epithelial Cells (non renal) 0-10 {/hpf} (Normal) Range: 0 - 10 Mucus Threads Present (Normal) RBC 0-3 {/hpf} (Normal) Range: 0 - 3 WBC 0-5 {/hpf} (Normal) Range: 0 - 5 :42 TSH (44049) Comments: PATIENT WAS FASTINGPERFORMED BY: [employer]70 [facility] [id number] TSH 3.120 {uIU/mL} (Normal) Range: 0.450-4.500 :42 URINALYSIS, W/ MICRO (59695) Comments: PATIENT WAS FASTINGPERFORMED BY: [facility] [id number] Microscopic Examination See below: (Normal) Bilirubin Negative (Normal) Glucose Negative (Normal) Ketones Negative (Normal) Nitrite, Urine Negative (Normal) Occult Blood Negative (Normal) Urobilinogen,Semi-Qn 0.2 mg/dL (Normal) Range: 0.0-1.9 Appearance Clear (Normal) pH 6.0 (Normal) Range: 5.0-7.5 Protein Negative (Normal) Urine-Color Yellow (Normal) WBC Esterase Trace (Abnormal) Specific [place] 1.020 (Normal) Range: 1.005-1.030 :42 MICROALBUMIN: CREATININE RATIO Comments: PATIENT WAS FASTINGPERFORMED BY: [address] Food RestaurantsKindred Hospital at WayneVamwqr8381 [facility] [id number] (60870) AND (74451) Microalb/Creat Ratio 14.6 {mg/g_creat} (Normal) Range: 0.0-30.0 Microalbumin, Urine 26.0 ug/mL (Abnormal) Range: 0.0-17.0 Creatinine, Urine 178.3 mg/dL (Normal) Range: 22.0-328.0 :42 METABOLIC PANEL, COMPREHENSIVE Comments: PATIENT WAS FASTINGPERFORMED BY: [employer] Tnujar3204 [facility] [id number] (78231) Alkaline Phosphatase, S 68 [iU]/L (Normal) Range: [...] Glucose, Serum 129 mg/dL (Abnormal) Range: 65-99 :42 LIPID PANEL (71009) Comments: PATIENT WAS FASTINGPERFORMED BY: [employer] [facility] [id number] LDL/HDL Ratio 2.5 {ratio_units} (Normal) Range: 0.0-3.6 [...] MANUAL DIFF Comments: PATIENT WAS FASTINGPERFORMED BY: [employer]6370 [facility] [id number] Information: ADD [id number] AND DRAW FEE 99 3987 (03069) Immature Grans (Abs) 0.0 {x10E3/uL} (Normal) Range: [...] 4.10-5.60 WBC 9.2 {x10E3/uL} (Normal) Range: 4.0-10.5 2-Lrc-732007:04 KNEE,4 OR MORE VIEWS (MT) Radiology See Note Comments: Exam Number: [id number] LINICAL:69-year-old man with pain in the left [...] CHOL 194 mg/dL (Normal) Comments: <200 mg/dL Qzneqbnfe984-988 mg/dL Borderline>240 mg/dL High Risk :32 PSA, [...] CHOL 157 mg/dL (Normal) Comments: <200 mg/dL Bqjehhtgp869-433 mg/dL Borderline>240 mg/dL High Risk :54 MICROALB:CRE UR MALB:CREAT 10.3 {mg/g_CRE} (Normal) MICROALBUMIN,UR 19.7 mg/L (Normal) UR CREAT 189.9 mg/dL (Normal) :54 TSH 2.03 {uIU/mL} (Normal) Range: 0.358-3.74 :57 WRIST,MIN 3 VIEWS Radiology Report See Note (Normal) Comments: Exam Number: [id number] LEFT HAND Three views of the left hand were obtained. There is good alignment. No acute abnormality is seen. LEFT WRIST Three views were obtained. There is good ali gnment. No significantabnormality is seen. Reported By: SHAHAB CARLOS :56 CHEST, PA AND LATERAL Radiology Report See Note (Normal) Comments: Exam Number: [id number] CHEST, PA AND LATERAL PA and lateral [...] Report See Note (Normal) Comments: Exam Number: [id number] LEFT HAND Three views of the left [...] was performed using the TPSA method for [employer] chemistry system.Values obtained with different assay methods cannot be usedinterchangably.When changing PSA assays in the course of monito ring apatient, additional sequential testing should be carriedout to confirm baseline values. :32 TSH 1.81 {uIU/mL} (Normal) Range: 0.34-4.82 29-Spu-338336:46 Vitamin D Hydroxy (35433) Comments: PATIENT NOT FASTINGClinical Information: ADD DRAW FEE [id number] ADD [id number] PERFORMED BY: jslyhl[address] [id number] Vitamin D, 25-Hydroxy 56.3 ng/mL (Normal) Range: 32.0-100.0 Comments: Recent studies consider the lower limit of 32.0 ng/mL to be athreshold for optimal health.Ashu JIMENEZ. J Nutr. 2004;135(2):317-22. 57-Vfw-621903:46 VITAMIN D, 1, 25-DIHYDROXY Comments: PATIENT NOT FASTINGPERFORMED BY: [facility] [address] [id number] ([id number]) Vitamin D, 1,25 Dihydroxy 31.0 pg/mL (Normal) Range: 15.9-55.6 76-Fyj-256813:28 CBCD,SMEAR DIFF Comments: GETS LIPID,LIVER,CBCMD,MICROAB.JOANNE VÁZQUEZ GETS [...] 47-70 WBC 7.3 K/mm3 (Normal) Range: 4.4-11.0 90-Nao-023737:28 COMP METABOLIC Comments: GETS LIPID,LIVER,CBCMD,MICROAB.JOANNE VÁZQUEZ GETS [...] GETS LIPID,LIVER,CBCMD,MICROAB.JOANNE VÁZQUEZ GETS CMP,PHOS,MG,VITD,CBC, Range: 0.00-0.30 :28 LIPID Comments: GETS LIPID,LIVER,CBCMD,MICROAB.JAZMIN KATHIE GETS CMP,PHOS,MG,VITD,CBC, CHOL 158 mg/dL (Normal) Comments: [...] mg/dL VLDL 41 mg/dL (Abnormal) Range: 5-40 :28 MG 1.7 mg/dL (Normal) Comments: GETS LIPID,LIVER,CBCMD,MICROAB.JAZMIN KATHIE GETS CMP,PHOS,MG,VITD,CBC, Range: 1.5-2.2 :28 MICROALBUMIN,UR 6.9 mg/L (Normal) Comments: GETS LIPID,LIVER,CBCMD,MICROAB.JAZMIN VÁZQUEZ GETS CMP,PHOS,MG,VITD,CBC, :28 PHOS 3.2 mg/dL (Normal) Comments: GETS LIPID,LIVER,CBCMD,MICROAB.JAZMNI KATHIE GETS CMP,PHOS,MG,VITD,CBC, Range: 2.5-4.9 :28 VIT D,25 94116 29.9 ng/mL (Abnormal) Comments: GETS LIPID,LIVER,CBCMD,MICROAB.JOANNE VÁZQUEZ GETS CMP,PHOS,MG,VITD,CBC, Range: 32.0-100.0 Comments: Recent studies consider the lower limit of 32.0 ng/mL to binta threshold for optimal health.Ashu JIMENEZ. J Nutr. 2004;135(2):317-22.Performed At: [facility]6[address] [place], [place] [id number] 12-Oar-581743:57 VITAMIN D, 1, 25-DIHYDROXY Comments: PATIENT NOT FASTINGClinical Information: ADD DRAW FEE [id number] ADD J [id number] PERFORMED BY: [facility] [address] [id number] (18347) Vitamin D, 1,25 Dihydroxy 38.4 pg/mL (Normal) Range: 15.9-55.6 83-Tza-116162:30 LIPID CHOL 176 mg/dL (Normal) Comments: <200 [...] mg/dL VLDL 41 mg/dL (Abnormal) Range: 5-40 24-Ovw-868130:30 LIVER ALB 3.7 g/dL (Normal) Range: 3.4-5.0 ALK P 57 U/L (Normal) Range: 50-136 ALT 41 U/L (Normal) Range: 30-65 AST 23 U/L (Normal) Range: 15-37 D BILI 0.16 mg/dL (Normal) Range: 0.00-0.30 T BILI 1.63 mg/dL (Abnormal) Range: 0.00-1.00 T PROT 6.9 g/dL (Normal) Range: 6.4-8.2 62-Liy-69990:46 CHEST, PA AND LATERAL Radiology Report See Note (Normal) Comments: Exam Number: [id number] PA AND LATERAL CHEST CLINICAL STATEMENTCough for [...] 6.4-8.2 :34 MICROALBUMIN,UR 14.3 mg/L (Normal) :34 PTH,[id number] Comments: PLASMA ALDOSTERONE PTH,Intact 63 pg/mL (Normal) Range: 12-65 Comments: Performed At: [facility] [address] [id number] At: [place] [id number] [place], [place] [id number] :34 RENIN,PL 2006 0.38 {ng/mL/hr} Comments: PLASMA [...] {uIU/mL} (Normal) Range: 0.34-4.82 :34 VIT D,25 26726 20.2 ng/mL (Abnormal) Comments: PLASMA ALDOSTERONE Range: [...] is totally submitted in two cassettes. / SJ:yanique 11/23/06 TC:3 REPORT SIGNED: TRINI DIAMOND 11/24/06:35 LIPID CHOL 135 mg/dL (Normal) Comments: <200 [...] was performed using the TPSA method for theCCTV [facility] chemistry system.Values obtained with different assay methods [...] 3.5-5.1 NA 137 mmol/L (Normal) Range: 136-145 97-Niw-768926:14 PSA [id number] COMMENT Comment (Normal) Comments: The percent free PSA is performed on a reflex basis onlywhen the total PSA is between 4.0 and 10.0 ng/mL.Performed At: [facility]6[address] [place], [place] [id number] At: [place] [address] [place], [place] [id number] PSA, FREE 0.77 ng/mL (Normal) PSA, FREE [...] (Abnormal) Range: 0.0-4.0 Comments: Alex (formerly Gabrielle) COUNTS INCLUDE [facility] BEDS AT THE [facility] methodology Plan of Care Name Dates [...] kidney disease Elevated parathyroid hormone : Reviewed Licensed Weigher Letter Indication: Elevated parathyroid hormone Elevated parathyroid [...] disease Coronary artery disease, occlusive : Reviewed Licensed Weigher Letter Indication: Coronary artery disease, occlusive Coronary [...] occlusive Coronary artery disease, occlusive : Reviewed Licensed Weigher Letter Indication: Coronary artery disease, occlusive Malignant [...] in both knees, unspecified chronicity : Reviewed Licensed Weigher Letter Indication: Pain in both knees, unspecified [...] hyperlipidemia Coronary artery disease, occlusive : Reviewed Licensed Weigher Letter Indication: Coronary artery disease, occlusive Malignant [...] insulin Coronary artery disease, occlusive : Reviewed Licensed Weigher Letter Indication: Coronary artery disease, occlusive Malignant [...] disease Coronary artery disease, occlusive : Reviewed Licensed Weigher Letter Indication: Coronary artery disease, occlusive Controlled [...] insulin Atrial fibrillation, unspecified type : Reviewed Licensed Weigher Letter Indication: Atrial fibrillation, unspecified type Nonsmoker [...] chronic diastolic congestive heart failure : Reviewed Licensed Weigher Letter Indication: Acute on chronic diastolic congestive heart failure Fluid overload : Reviewed Lab Indication: Fluid overload Fluid overload : Reviewed Diagnostic Tests Indication: Fluid overload Atrial fibrillation, unspecified type : Reviewed Licensed Weigher Letter Indication: Atrial fibrillation, unspecified type Hypertensive [...] on chronic systolic heart failure : Reviewed Licensed Weigher Letter Indication: Acute on chronic systolic heart failure Bilateral edema of lower extremity : Reviewed Lab Indication: Bilateral edema of lower extremity Acute on chronic systolic heart failure : Reviewed Licensed Weigher Letter Indication: Acute on chronic systolic heart [...] of breath on exertion Coronary 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 : Reviewed Licensed Weigher Letter Indication: 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 : Reviewed Diagnostic Tests Indication: Coronary 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 Acute systolic congestive heart failure : Follow up in 3 weeks- fu on chf and edema and std process Indication: Acute systolic congestive heart failure Bilateral edema of lower extremity : Follow up in wednesday - yessenia Indication: Bilateral edema of lower extremity Coronary 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 : Eprescribed prescriptions (G8553) Indication: Coronary 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 Acute systolic congestive heart failure : Reviewed Diagnostic Tests Indication: Acute systolic congestive heart failure Acute systolic congestive heart failure : Continue Current Prescription(s) Indication: Acute systolic congestive heart failure Acute systolic congestive heart failure : Reviewed Licensed Weigher Letter Indication: Acute systolic congestive heart failure Shortness of breath on exertion : Follow up wednesday for yessenia on lower extrem edema- and sob & lab Indication: Shortness of breath on exertion Atherosclerosis of [place] coronary artery without angina pectoris, unspecified whether [place] or transplanted heart : Reviewed Licensed Weigher Letter Indication: Atherosclerosis of [place] coronary artery without angina pectoris, unspecified whether [place] or transplanted heart Mixed hyperlipidemia : Cholesterol [...] Cholesterol mgmt Indication: Hyperlipidemia Coronary 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 : Reviewed Licensed Weigher Letter Indication: Coronary 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 Diabetes mellitus type 2, uncontrolled, [...] annual wellness exam Elevated PSA : Reviewed Licensed Weigher Letter: milagro neal Indication: Elevated PSA 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 : Continue Current Prescription(s) 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 : Reviewed Lab Indication: Coronary 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 Hyperlipidemia : Cholesterol mgmt Indication: [...] and congestive heart failure Coronary 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 : Reviewed Licensed Weigher Letter Indication: Coronary 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 Diabetes mellitus without complication (Renamed from Diabetes mellitus with no complication) : Diabetes Mellitus: Type 2 *: diabetes type 2 Indication: Diabetes mellitus without complication (Renamed from Diabetes mellitus with no complication) CVA (cerebral infarction) : Reviewed Licensed Weigher Letter: neuro wants to do a brain [...] brain MRI Abnormal brain MRI : Reviewed Licensed Weigher Letter Indication: Abnormal brain MRI Malignant hypertension [...] Vitamin D deficiency, unspecified Coronary 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 : Reviewed Licensed Weigher Letter Indication: Coronary 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 Hyperlipidemia : Cholesterol mgmt Indication: [...] mellitus with no complication) Coronary 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 : Reviewed Licensed Weigher Letter Indication: Coronary 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 Diabetes mellitus type 2, uncontrolled, [...] mellitus with no complication) Coronary 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 : Reviewed Licensed Weigher Letter Indication: Coronary 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 Malignant hypertension with renal disease [...] 2, uncontrolled, without complications Coronary 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 : Reviewed Licensed Weigher Letter Indication: Coronary 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 Hyperlipidemia : Cholesterol mgmt Indication: [...] with renal disease Elevated PSA : Reviewed Licensed Weigher Letter Indication: Elevated PSA Vitamin D deficiency, [...] mgmt Indication: Mixed hyperlipidemia Coronary 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 : Reviewed Licensed Weigher Letter Indication: Coronary 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 Hypertensive heart disease : Diet, [...] mgmt Indication: Mixed hyperlipidemia Coronary 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 : Reviewed Licensed Weigher Letter Indication: Coronary 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 Hypertensive heart disease : HTN/CAD [...] Wt loss Indication: Obesity, morbid Atherosclerosis of [place] coronary artery without angina pectoris, unspecified whether [place] or transplanted heart : Reviewed Licensed Weigher Letter Indication: Atherosclerosis of [place] coronary artery without angina pectoris, unspecified whether [place] or transplanted heart Hypertensive heart disease : [...] pain : FOLLOW UP IN 2 WEEKS [facility] Indication: Knee pain Obesity, morbid [...] Nonprescription Treatment Indication: Hyperlipidemia Coronary 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 : Reviewed Licensed Weigher Letter Indication: Coronary 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 Hypertensive heart disease : Diet, [...] of breath at rest Coronary 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 : Reviewed Licensed Weigher Letter Indication: Coronary 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 Hypertensive heart disease : Diet, [...] Side Effects Indication: Mixed hyperlipidemia Atherosclerosis of [place] coronary artery without angina pectoris, unspecified whether [place] or transplanted heart : Reviewed Licensed Weigher Letter Indication: Atherosclerosis of [place] coronary artery without angina pectoris, unspecified whether [place] or transplanted heart Hypertensive heart disease : [...] obstructive pulmonary disease Elevated PSA : Reviewed Licensed Weigher Letter prostate bx negative Indication: Elevated PSA Hypertensive heart disease : Reviewed Licensed Weigher Letter Indication: Hypertensive heart disease Hyperlipidemia : [...] - Strool Based DNA Test, CRC SCREEN (49561)Indication: Encounter for screening for malignant neoplasm of colon (Renamed from Special screening for malignant neoplasms, colon) On: 94-Aqv-133396:47 Request TSH ([id number])Indication: 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, without long-term current use of insulin On: 3-Pia-644885:20 Request URINALYSIS, W/ MICRO ([id number])Indication: 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 On: 6-Qwb-694873:19 Request MICROALBUMIN: CREATININE RATIO ([id number]) AND ([id number])Indication: 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 On: 4-Wbm-217539:19 Request METABOLIC PANEL, COMPREHENSIVE (99693)Indication: 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 On: 0-Txh-212182:19 Request LIPID PANEL (84105)Indication: 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 On: 2-Bne-924723:19 Request CBC with auto diff ([id number])Indication: 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 On: 6-Ngk-419367:19 Request CALCIFEDIOL (14442)Indication: Vitamin D deficiency On: 4-Lcx-565115:19 Request CALCIFEDIOL (17770)Indication: Vitamin D deficiency On: 23-Uvp-635318:51 Request PARATHORMONE (41290)Indication: Elevated parathyroid hormone On: 41-Hcv-278789:51 Request URINALYSIS, W/ MICRO ([id number])Indication: Diabetes mellitus without complication (Renamed from Diabetes mellitus with no complication) On: 4-Btp-046712:17 Request MICROALBUMIN: CREATININE RATIO (58742) AND ([id number])Indication: Diabetes mellitus without complication (Renamed from Diabetes mellitus with no complication) On: 6-Pcz-779272:17 Request CALCIFIDIOL (71047) VIT D 25Indication: Vitamin D deficiency, unspecified On: 82-Mwn-101888:39 Request TSH (60060)Indication: 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, without long-term current use of insulin On: :39 Request URINALYSIS, W/ MICRO ([id number])Indication: 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, without long-term current use of insulin On: :39 Request MICROALBUMIN: CREATININE RATIO (19927) AND (35637)Indication: 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, without long-term current use of insulin On: :39 Request METABOLIC PANEL, COMPREHENSIVE (84506)Indication: 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, without long-term current use of insulin On: :39 Request LIPID PANEL ([id number])Indication: 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, without long-term current use of insulin On: : Request CBC W/AUTO DIFF WBC (00004)Indication: 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, without long-term current use of insulin On: :39 Request TSH ([id number])Indication: Diabetes mellitus type 2, uncontrolled, without complications On: 09-Nnu-703933:04 Request URINALYSIS, W/ MICRO (01213)Indication: Diabetes mellitus type 2, uncontrolled, without complications On: 49-Nhq-299431:04 Request MICROALBUMIN: CREATININE RATIO (75864) AND (80323)Indication: Diabetes mellitus type 2, uncontrolled, without complications On: 29-Vbz-401926:04 Request METABOLIC PANEL, COMPREHENSIVE (75754)Indication: Diabetes mellitus type 2, uncontrolled, without complications On: 40-Yci-669487:04 Request LIPID PANEL (34349)Indication: Mixed hyperlipidemia On: : Request CBC W/AUTO DIFF WBC (29815)Indication: Diabetes mellitus type 2, uncontrolled, without complications On: 65-Yzw-628761:03 Request FECAL OCCULT- Tubes sent home (94885)Indication: Encounter for screening for malignant neoplasm of colon (Renamed from Special screening for malignant neoplasms, colon) On: 7-Qin-292729:21 Request Metabolic Panel, Basic ([id number])Indication: Renal insufficiency On: 9-Aeo-814032:41 Request Comments: wednesday morning Metabolic Panel, Basic (24908)Indication: Renal insufficiency On: 05-Jul-2015 Request Metabolic Panel, Basic (42366)Indication: Renal insufficiency On: :41 Request BASIC METABOLIC w/Ionized Ca++ (11292)Indication: Short of breath on exertion On: :31 Request METABOLIC PANEL, BASIC (77135)Indication: Abnormal blood chemistry On: :23 Request Metabolic Panel, Basic (70947)Indication: Acute systolic congestive heart failure On: :54 Request Metabolic Panel, Basic (67653)Indication: Atrial fibrillation, unspecified type On: :04 Request ASSAY, NATIURETIC PEPTIDE ([id number])Indication: Atrial fibrillation, unspecified type On: :04 Request ASSAY, NATIURETIC PEPTIDE ([id number])Indication: Bilateral edema of lower extremity On: :13 Request ASSAY, NATIURETIC PEPTIDE (39983)Indication: Acute systolic congestive heart failure On: 99-Noi-627340:39 Request Comments: re check in 1-2 weeks PSA (Medicare - G0103) (36353)Indication: Elevated PSA On: 84-Wqy-902446:17 Request TSH ([id number])Indication: Diabetes mellitus type 2, uncontrolled, without complications On: 57-Ads-400521:16 Request URINALYSIS, W/ MICRO ([id number])Indication: Diabetes mellitus type 2, uncontrolled, without complications On: 21-Lpg-125657:16 Request MICROALBUMIN: CREATININE RATIO (91091) AND ([id number])Indication: Diabetes mellitus type 2, uncontrolled, without complications On: 98-Gmm-150785:16 Request METABOLIC PANEL, COMPREHENSIVE (28078)Indication: Diabetes mellitus type 2, uncontrolled, without complications On: 41-Bjw-630533:16 Request LIPID PANEL (06927)Indication: Diabetes mellitus type 2, uncontrolled, without complications On: 77-Lzg-019051:16 Request CBC with auto diff (73090)Indication: Diabetes mellitus type 2, uncontrolled, without complications On: 88-Gmc-268130:16 Request CALCIFIDIOL (99340) VIT D 25Indication: Vitamin D deficiency, unspecified On: 28-Yan-447633:16 Request Vitamin D Hydroxy (57441)Indication: Vitamin D deficiency, unspecified On: 8-Zgt-234325:05 Request URINALYSIS, W/ MICRO ([id number])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 On: 3-Zmz-266585:04 Request MICROALBUMIN: CREATININE RATIO (60557) AND (45373)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 On: 1-Xei-885844:04 Request METABOLIC PANEL, COMPREHENSIVE (70071)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 On: 7-Owr-948543:04 Request LIPID PANEL (29082)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 On: : Request CBC WITH MANUAL DIFF ([id number])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 On: 1-Ojz-034351:04 Request FECAL OCCULT- Tubes sent home ([id number])Indication: Encounter for routine history and physical exam for male On: 56-Njw-095976:09 Request CALCIFIDIOL (62537) VIT D 25Indication: Vitamin D deficiency, unspecified On: 8-Wzb-768634:11 Request PSA TOTAL +%FREE 055280 (34282)Indication: Elevated PSA On: 7-Sif-880315:14 Request BILIRUBIN, TOTAL & DIRECT ([id number])Indication: Other specified abnormal findings of blood chemistry On: 8-Ozv-843894:14 Request Glucose, PP/2 Hour (68682)Indication: Other specified abnormal findings of blood chemistry On: 81-Dqs-237838:03 Request CALCIFIDIOL (20190) VIT D 25Indication: Vitamin D deficiency, unspecified On: 48-Kvc-169316:31 Request TSH ([id number])Indication: Hypertensive heart disease On: :28 Request URINALYSIS, W/ MICRO (50807)Indication: Hypertensive heart disease On: :28 Request MICROALBUMIN: CREATININE RATIO ([id number]) AND (36587)Indication: Hypertensive heart disease On: :28 Request METABOLIC PANEL, COMPREHENSIVE (69792)Indication: Hypertensive heart disease On: :28 Request CBC WITH MANUAL DIFF (25154)Indication: Hypertensive heart disease On: :28 Request PSA (PROSTATE SPECIFIC ANTIGEN) (V76.44)Indication: Elevated PSA On: 76-Wtr-251519:25 Request LIPID PANEL (16000)Indication: Hyperlipidemia On: 60-Xhh-529029:23 Request Comments: do for next appt- 4mo Metabolic Panel, Basic (59942)Indication: Pain of hand, unspecified laterality On: 48-Ssp-995744:42 Request URIC ACID BLOOD (02394)Indication: Pain of hand, unspecified laterality On: 66-Ofi-776892:42 Request C-REACTIVE PROTEIN (19982)Indication: Pain of hand, unspecified laterality On: 24-Mgx-539689:52 Request SED RATE ERYTHROCYTE (51060)Indication: Pain of hand, unspecified laterality On: 30-Awa-955927:52 Request CBC WITH MANUAL DIFF ([id number])Indication: Pain of hand, unspecified laterality On: 12-Jep-845259:51 Request Magnesium (43863)Indication: Hypokalemia On: 80-Zjf-411824:25 Request Potassium Serum (95258)Indication: Hypokalemia On: 22-Mau-334860:25 Request Comments: do in 2 weeks Vitamin D Hydroxy (21492)Indication: Vitamin D deficiency, unspecified On: 30-Trl-343974:23 Request Glucose, PP/2 Hour (07230)Indication: Other specified abnormal findings of blood chemistry On: 17-Fnc-558762:18 Request LIPID PANEL (99933)Indication: Hyperlipidemia On: 83-Oui-006563:45 Request Comments: DO IN 3 MONTHS HEPATIC FUNCTION PANEL (39312)Indication: Hyperlipidemia On: 91-Mrh-504712:45 Request HEPATIC FUNCTION PANEL (91406)Indication: Hyperlipidemia On: 59-Esr-164751:54 Request LIPID PANEL (38417)Indication: Hyperlipidemia On: 29-Cup-340071:54 Request Comments: do in 3 months PARATHORMONE (79810)Indication: Vitamin D deficiency, unspecified On: 85-Pyc-020681:45 Request CALCIUM SERUM (74694)Indication: Vitamin D deficiency, unspecified On: 07-Jbr-368701:45 Request VITAMIN D, 1, 25-DIHYDROXY (02849)Indication: Vitamin D deficiency, unspecified On: 59-Dtg-861176:45 Request VITAMIN D, 25-DIHYDROXY (17371)Indication: Vitamin D deficiency, unspecified On: 90-Yey-944162:45 Request LIPID PANEL (18227)Indication: Hyperlipidemia On: 47-Sgw-156466:44 Request Planned Procedures INTENSIVE BEHAVIORAL THERAPY TO On: 15-Nov-2017 Intent REDUCE CARDIOVASCULAR DISEASE RISK, INDIVIDUAL, [id number], ANNUAL, 15 MINUTES (G0446)By: Vicki Styles DO, DO, Kathleen VOVF-DS-ZCMV BEHAVIORAL COUNSELING On: 15-Nov-2017 Intent FOR OBESITY, 15 MINUTES (G0447)By: Vicki tSyles DO, DO, Kathleen Spirometry (17383)By: Neil NG, On: 06-Sep-2017 Intent Vicki Nichols DO Comments: severe obsstyuction and good effort on curve-- addeed dulera - ELECTROCARDIOGRAM, COMPLETE (ECG) On: 06-Sep-2017 Intent ([id number])By: Vicki Styles DO Comments: a fib- rate controlled - no acute findings Vicki Styles DO X-RAY OF HAND, THREE VIEWS On: 17-Jun-2017 Intent (03746)By: Vicki Styles DO Comments: Right hand Vicki Styles DO PARATHYROID SCAN (60480)By: Neil On: 17-Jun-2017 Intent Vicki NG DO, Vicki Overnight Pulse OX ([id number])By: On: 04-Jun-2017 Intent Vicki Styles DO DOVicki [id number] BEHAVIORAL COUNSELING On: 09-Nov-2016 Intent FOR OBESITY, 15 MINUTES (G0447)By: Vicki Styles DO, DO, Kathleen INTENSIVE BEHAVIORAL THERAPY TO On: 09-Nov-2016 Intent REDUCE CARDIOVASCULAR DISEASE RISK, INDIVIDUAL, [id number], ANNUAL, 15 MINUTES (G0446)By: Vicki Styles DO, DO, Kathleen ELECTROCARDIOGRAM, COMPLETE (ECG) On: 10-Sep-2016 Intent (55434)By: Vicki Styles DO Comments: chronic chg - afib/flutter - rate controlled Vicki Styles DO SIX MINUTE WALK TEST (59825)By: On: 26-Mar-2016 Intent Vicki Styles DO Neil DO, Vicki Overnight Pulse OX ([id number])By: On: 09-Mar-2016 Intent Vicki Styles DO Neil DO, Vicki Overnight Pulse OX (72693)By: On: 04-Mar-2016 Intent Vicki Styles DO, DO, Kathleen Spirometry ([id number])By: Neil NG, On: 04-Mar-2016 Intent Vicki Nichols DO Comments: pt admits not using inhalers - restrictive pattern - refilled inhalers - symbicort nad spiriva and will yessenia in one month INTENSIVE BEHAVIORAL THERAPY TO On: 07-Nov-2015 Intent REDUCE CARDIOVASCULAR DISEASE RISK, INDIVIDUAL, [id number], ANNUAL, 15 MINUTES (G0446)By: Vicki Styles DO DO, Vicki RITD-TG-FVIB BEHAVIORAL COUNSELING On: 07-Nov-2015 Intent FOR OBESITY, 15 MINUTES (G0447)By: Vicki Styles DO DO, Vicki Radiology - Chest- PA and LatBy: On: 18-Apr-2015 Intent Neil NG, Vicki Styles DO, Vicki Echo CompleteBy: Neil NG, On: 18-Apr-2015 Intent Vicki Styles DO, Vicki Prevnar 13 ([id number])By: Neil NG, On: 16-Jan-2014 Intent Vicki Rodriguezon DO, Vicki Prevnar 13 (70921)By: Neil NG, On: 16-Jan-2014 Intent Vicki Nichols DO Comments: [id number] arm, 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, AUTOMATIC BEAM WARPER TENDER Overnight Pulse OX ([id number])By: On: 03-Jan-2014 Intent Vicki Styles DO DOVicki Six Minute Walk Assessment On: 28-Dec-2013 Intent (25090)By: Vicki Styles DO DO, Vicki VTNQ-[id number] BEHAVIORAL COUNSELING On: 23-Nov-2013 Intent FOR OBESITY, 15 MINUTES (G0447)By: Vicki Styles DO DOVicki INTENSIVE BEHAVIORAL THERAPY TO On: 19-Oct-2013 Intent REDUCE CARDIOVASCULAR DISEASE RISK, INDIVIDUAL, [id number], ANNUAL, 15 MINUTES (G0446)By: Vicki Styles DO Neil DO, Vicki ANPL-PO-BZNA BEHAVIORAL COUNSELING On: 19-Oct-2013 Intent FOR OBESITY, 15 MINUTES (G0447)By: Vicki Styles DOon Vicki NG Radiology - Chest- PA and LatBy: On: 24-Aug-2013 Intent Neil DO, Vicki Neil DO, Vicki Aerosol Treatment ([id number])By: On: 24-Aug-2013 Intent Neil DOVicki Neil DO, Comments: no wheeze and much more a/e Vicki Eprescribed prescriptions On: 15-May-2013 Intent (G8553)By: Leora Fonseca LPN Eprescribed prescriptions On: 20-Mar-2013 Intent (G8553)By: Vicki Styles DO, DO, Kathleen INTENSIVE BEHAVIORAL THERAPY TO On: 17-Oct-2012 Intent REDUCE CARDIOVASCULAR DISEASE RISK, INDIVIDUAL, [id number], ANNUAL, 15 MINUTES (G0446)By: Vicki Styles DO DOVicki [id number] BEHAVIORAL COUNSELING On: 17-Oct-2012 Intent FOR OBESITY, 15 MINUTES (G0447)By: Vicki Styles DO Neil DOVicki EKG ([id number])By: Neil NG, On: 17-Oct-2012 Intent Vicki Neil DOSamiraVicki Eprescribed prescriptions On: 17-Oct-2012 Intent (G8553)By: Leora Fonseca LPN Six Minute Walk Assessment On: 28-Jul-2012 Intent (13794)By: Gay Brandon LPN Z (40246)By: Neil NG, On: 18-Jul-2012 Intent Vicki Neil DOJonathanVicki Comments: unable to connect and perform Six Minute Walk Assessment On: 18-Jul-2012 Intent ([id number])By: Vicki Styles DO Comments: set up Neil DOSamiraVicki Eprescribed prescriptions On: 22-Apr-2012 Intent (G8553)By: Leora Fonseca LPN Spirometry (50924)By: Neil NG, On: 21-Jan-2012 Intent Vicki Nichols DO Comments: poor effort Eprescribed prescriptions On: 21-Jan-2012 Intent (G8553)By: Leora Fonseca LPN PFT - CompleteBy: Neil NG, On: 21-Oct-2011 Intent Vicki Neil DOSamiraVicki EKG (32404)By: Neil NG, On: 21-Oct-2011 Intent Vicki Nichols DO Comments: nsr no acute chg Eprescribed prescriptions On: 05-Aug-2011 Intent (G8553)By: Leora Fonseca LPN Six Minute Walk Assessment On: 06-Feb-2011 Intent ([id number])By: Naomi Mendez Comments: see scanned documents Six Minute Walk Assessment On: 26-Nov-2010 Intent (47711)By: Vicki Styles DO Comments: set up Vicki Styles DO Bio Z ([id number])By: Neil NG, On: 26-Nov-2010 Intent Vicki Nichols DO Comments: norrmal parameters no chg in rx EKG (94285)By: Neil NG, On: 26-Nov-2010 Intent Vicki Nichols DO Comments: nsr no acute chgn TDAP VACCINE >7 IM ([id number])By: On: 30-Jul-2010 Intent Vicki Styles DO, DO, Comments: Lot:[id number]:06/26/12Amt:prefilledRoute:IMSite: left deltGiven By: CARYL Edwards Vicki Eprescribed prescriptions On: 30-Jul-2010 Intent (G8553)By: Vicki Styles DO, DO, Kathleen Bio Z (56051)By: Neil NG, On: 30-Jul-2010 Intent Vicki Nichols DO Comments: STABLE SEE SCANNED DOC -NO CHG IN MEDS EKG (77729)By: Neil NG, On: 26-Mar-2010 Intent Vicki Nichols DO Bio Z (32725)By: Neil NG, On: 26-Mar-2010 Intent Vicki Nichols DO PHYSICAL THERAPY EVALUATION On: 07-Jan-2010 Intent ([id number])By: Elisabet Matos CNP Radiology - Knee - Left - Weight On: 07-Jan-2010 Intent BearingBy: Elisabet Matos CNP Radiology - Knee - LeftBy: Shawna On: 07-Jan-2010 Intent Elisabet HIRSCH Renal Duplex ScanBy: Neil NG, On: 14-Jun-2009 Intent Vicki Neil DO, Vicki Radiology - Wrist - LeftBy: Neil On: 19-Mar-2009 Intent DO, Vicki Neil DO, Vicki Radiology - Hand - LeftBy: Neil On: 19-Mar-2009 Intent DO, Vicki Neil DO, Vicki Radiology - Chest- PA and LatBy: On: 19-Mar-2009 Intent Neil DO, Vicki Neil DO, Vicki Bio Z (07294)By: Neil DO, On: 19-Mar-2009 Intent Vicki Neil DO Vicki Comments: ok co and svr EKG (14960)By: Neil DO, On: 19-Mar-2009 Intent Vicki Neil DO Vicki Comments: nsr no acute changes Spirometry (68110)By: Neil DO, On: 19-Mar-2009 Intent Vicki Neil DO Vicki Comments: mild obstructive pattern - Pulse Oximetry (56311)By: Mast RN, On: 19-Mar-2009 Intent Darling EKG (27312)By: Neil DO, On: 25-Jul-2008 Intent Vicki Neil DOSamiraVicki Comments: no acute stable Bio Z (19893)By: Neil DO, On: 25-Jul-2008 Intent Vicki Neil DO Vicki Comments: stable no changes Six Minute Walk Assessment On: 16-May-2008 Intent (40903)By: Crystal Reyes Six Minute Walk Assessment On: 23-Mar-2008 Intent (18242)By: Neil DO, Vicki Neil DO, Vicki Bio Z ([id number])By: Neil DO, On: 23-Mar-2008 Intent Vicki Neil DO Vicki Comments: normal svr and co Radiology - Knee - LeftBy: Neil On: 28-Dec-2007 Intent DO, Vicki Neil DO, Vicki Radiology - Knee - RightBy: Neil On: 28-Dec-2007 Intent DO, Vicki Neil DO, Vicki Bio Z ([id number])By: Neil DO, On: 28-Dec-2007 Intent Vicki Neil DO, Vicki Comments: normal svr and co Bio Z (68126)By: Neil DO, On: 01-Sep-2007 Intent Vicki Nichols DO Comments: HYPERDYNAMIC HEART-- HI CO AND LO SVR Holter Moniter (11228)By: Neil On: 04-May-2007 Vicki Coates DO, DO, Kathleen Comments: set up Bio Z (40114)By: Neil NG, On: 04-May-2007 Intent Vicki Nichols DO Comments: normal svr and co EKG (97897)By: Neil NG, On: 04-May-2007 Intent Vicki Nichols DO Comments: nsr some pvc-- no acute ischemic changes Radiology - Chest- PA and LatBy: On: 24-Mar-2007 Intent Vicki Styles DO, DO, Kathleen Aerosol Treatment (25661)By: On: 24-Mar-2007 Vicki Laniez DO, DO, Comments: better air exchange less wheeze and less irritability with cough Vicki Solu- Medrol Injection, 125mg On: 24-Mar-2007 Intent ([id number])By: Vicki Styles DO Comments: given in right hip, 125mg, lot#[id number], exp.5--WF Vicki Styles DO Spirometry (38412)By: Neil NG, On: 24-Mar-2007 Intent Vicki Nichols DO Comments: severe airway obstruction Pulse Oximetry (94708)By: Neil On: 24-Mar-2007 Vicki Coates DO, DO, Kathleen Comments: 94% Doppler Ultrasound OtherBy: Neil On: 02-Mar-2007 Vicki Coates DO, DO, Kathleen Comments: R Inhaler Demo (33627)By: Neil NG, On: 27-Jan-2007 Intent Vicki Nichols DO Bio Z ([id number])By: Neil NG, On: 27-Jan-2007 Intent Vicki Nichols DO Comments: normal svr and co Spirometry (46359)By: Neil NG, On: 27-Jan-2007 Intent Vicki Nichols DO Comments: mild obstruction Bio Z ([id number])By: Neil NG, On: 11-Oct-2006 Intent Vicki Nichols DO Comments: normal svr and co EKG (14816)By: Neil NG, On: 26-Apr-2006 Intent Vicki Nichols DO Comments: nsr intraventricular conduction delay no acute ischemic changes Holter Moniter (29539)By: On: 26-Mar-2006 Intent REILLY Moya Instructions Name [...] systolic congestive heart failure Coronary 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 : How to access health information online Indication: 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 : How to access health information online - Detail Indication: Coronary 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 Bilateral edema of lower extremity [...] 2, uncontrolled, without complications Coronary 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 : cardiovascular counseling Indication: Coronary 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 BMI 37.0-37.9, adult : obesity [...] Indication: Abnormal brain MRI Coronary 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 : cardiovascular counseling Indication: Coronary 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 BMI 36.0-36.9,adult : obesity counseling [...] The patient does have durable power of civil litigation attorney and living will. The patient has noticed nothing from the geriatic depression scale. Other providers contributing to the patient's care are pack press operator, whiting machine operator, urologist and other: (endo).Encounter Diagnosis: Nonsmoker, BMI [...] (272.2), Vitamin D deficiency [facility] Office Visit On: 09-Jul-2017 [...] I called squad and I was at [facility] and then I went to [facility] for End: 06-Jan-2017 11:01 heraphy) and [...] The patient does have durable power of civil litigation attorney and living will. The patient has noticed nothing from the geriatic depression scale. Other providers contributing to the patient's care are pack press operator, urologist and other:.Encounter Diagnosis: Nonsmoker, BMI 35.0-35.9,adult, [...] extremity edema, increase SOB. Recent trip to [place] Encounter Diagnosis: Edema extremities, Fluid overload, Atrial [...] The patient does have durable power of civil litigation attorney and living will. The patient has noticed lack of energy. Other providers contributing to the patient's care are pack press operator and urologist. Encounter Diagnosis: Encounter for Medicare [...] Hypertension with renal disease, Coronary 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, Chronic kidney disease, stage 3 [...] vivid dreams. Encounter Diagnosis: Coronary 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, Apnea, BPH (benign prostatic hyperplasia) (600.90), Other urinary incontinence, Bilateral edema of lower extremity, Short of breath on exertion, Non morbid obesity, unspecified obesity type, Therapeutic drug monitoring [facility] Office Visit On: 10-May-2015 10:16 Encounter Diagnosis: Atrial fibrillation, unspecified type, Coronary 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 (414.01), Acute systolic congestive heart [...] type, Abnormal blood chemistry, Coronary 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 (414.01) End: 06-May-2015 10:58 Comprehensive [...] deficiency, unspecified, Mixed hyperlipidemia (272.2), Atherosclerosis of [place] coronary artery without angina pectoris, unspecified whether [place] or transplanted heart, History of CVA in [...] weight :. Encounter Diagnosis: Coronary 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 (414.01), BMI 37.0-37.9, ADULT (V85.37), [...] patient d oes have durable power of civil litigation attorney and living will. The patient has noticed feeling situation is hopeless (recently). Other providers contributing to the patient's care are pack press operator (Dr. Greenfield), uro logist and other: ([facility] - Dr Quezada).Encounter Diagnosis: Annual Medicare Physical (V70.0), BMI 37.0-37.9, ADULT (V85.37), Coronary 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 (414.01) [facility] Office [...] mellitus with no complication), Coronary 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 (414.01), Hyperlipidemia (272.4), Hypertension with [...] pressure range :.Encounter Diagnosis: Coronary 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 (414.01), Hypertension with Heart and Renal Disease (404.93), Diabetes mellitus without complication (Renamed from Diabetes mellitus with no complication), Hyperlipidemia (272.4), Edema (782.3) [facility] Office Visit On: 20-Mar-2013 10:40 Encounter Diagnosis: Hypertension with Heart and Renal Disease (404.93), CVA (cerebral infarction) (434.91), Coronary 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 (414.01) End: 20-Mar-2013 11:53 [facility] Office Visit On: 15-Feb-2013 14:36 Encounter Reason: Transition into care - The patient most recently received care from a hospital (in hosp from 02/12/13 to 02/14/13 for a minor stroke.).Encounter Diagnosis: Abnormal brain MRI (793.0), End: 15-Feb-2013 15:50 Hypertension with Heart and Renal Disease (404.93), Coronary 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 (414.01), CVA (cerebral infarction) (434.91), [...] in bathroom. The patient has completed the [facility] preventative measures: PSA testing (september 2012) and colonoscopy (around 10 years). The patient does have durable power of civil litigation attorney and living will. The patient has noticed nothing from the geriatic depression scale. Other providers contributing to the patient's care are pack press operator (Dr. Greenfield) and urologist. 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), Hyperlipidemia (272.4), Coronary 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 (414.01), Unspecified vitamin D deficiency [...] disease (402.90), Hyperlipidemia (272.4), Coronary 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 (414.01), Edema (782.3) [facility] [...] mellitus without complication (250.00), Coronary 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 (414.01), Hypertension with Renal Disease [...] II,uncontrolled, no comp (250.02), Coronary 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 (414.01), Atrial fibrillation (427.31), Benign [...] fibrillation (427.31), COPD (496.), Coronary 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 (414.01) [facility] Phone [...] fibrillation (427.31), COPD (496.), Coronary 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 (414.01), Mixed hyperlipidemia (272.2), Hypertensive [...] , Atrial fibrillation (427.31), Coronary 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 (414.01) [facility] Office [...] Coronary atherosclerosis of unspecified type of vessel, [place] or graft (414.00), COPD (496.), Hyperglycemia (790.29), [...] Coronary atherosclerosis of unspecified type of vessel, [place] or graft (414.00), Atrial fibrillation (427.31), Obesity, [...] Coronary atherosclerosis of unspecified type of vessel, [place] or graft (414.00), Hypertensive heart disease (402.90) [...] Hypertensive heart disease (402.90), Coronary 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 (414.01), Atrial fibrillation (427.31), Hyperlipidemia [...] Coronary atherosclerosis of unspecified type of vessel, [place] or graft (414.00), Atrial fibrillation (427.31), Hypocalcemia [...] Hypertensive heart disease (402.90), Coronary 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 (414.01), Hyperlipidemia (272.4), COPD (496.), [...] Coronary atherosclerosis of unspecified type of vessel, [place] or graft (414.00), Atrial fibrillation (427.31), Mixed [...] Coronary atherosclerosis of unspecified type of vessel, [place] or graft (414.00), Atrial fibrillation (427.31), Mixed [...] Coronary atherosclerosis of unspecified type of vessel, [place] or graft (414.00), Atrial fibrillation (427.31), Coronary 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 (414.01), Unspecified vitamin D deficiency [...] Diagnosis: Atrial fibrillation (427.31), Coronary 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 (414.01), Hypertensive heart disease (402.90), [...] (402.90), Atrial fibrillation (427.31), Coronary 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 (414.01), Hyperlipidemia (272.4), Cough (786.2), [...] Follow up, Laboratory Test Results - Date: (6-21-07). Current symptoms/reason for visit include/s Follow up [...] Hypertensive heart disease (402.90), Coronary 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 (414.01), Atrial fibrillation (427.31), Hyperlipidemia [...]
--- OUTSIDE RECORDS SUMMARY | 2018-04-29 16:01 | XMS RPT_ITS | Continuity of Care Document ---
:1940 Author Organization [facility] Address [facility] [place] [address] Phone Care Team Providers Name Role Phone Neil DO Vicki Unavailable Milagro PHAN, Dr. Mohsen Mckenna Unavailable Physical [facility], [facility] Unavailable Lesa Alvarado Unavailable Dr. Juan Sin DO Unavailable [facility], Diagnostic Services Unavailable Kimo Roger MD Unavailable Mata Leonard Unavailable [facility] Unavailable Kamaljit PHAN, Dr. Joan Arechiga Unavailable CARYL Fonseca Unavailable Unavailable Long Minda HUTSON Unavailable Unavailable Israel Nelson Unavailable Unavailable Michel Heerdia Unavailable Unavailable Unavailable Unavailable Problems Name Dates [...] Apnea (R06.81, 786.03) Status: Active Atherosclerosis of [place] coronary artery without angina pectoris, unspecified whether [place] or transplanted heart (I25.10, 414.01) Status: Active [...] as advised by Gin.BP improved at home: 116-135/78-42377/88, 116/78, 125/76, 128/84, 129/77, 140/80.Budget Report Clerk palpitations, LH, dizziness, chest pain. 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) Status: Active Hypoxia (R09.02, 799.02) Comments: sleep related and wears at nightmanaged by Hopper Status: Active Influenza vaccination declined (Renamed from [...] days Quantity: 20 {Tablet} Refills: 0 Ordered:24-Apr-2015 Leroa Fonseca LPN Start : 18-Apr-2015 End : [...] : 06-May-2015 End : 22-Aug-2015 Inactive DRISDOL, 94142LBFC (Oral Capsule) 1 Capsule uad for 0 days Quantity: 8 {Capsule} Refills: 4 Ordered:21-Jan-2012 Leora Fonseca LPN Start : 31-Jul-2010 End : 21-Jan-2012 Inactive Comments:2 tabs q week x 4 mo and then 1 tab weekly ERGOCALCIFEROL, 92813UXCZ (Oral Capsule) 1 (one) Capsule tad for [...] Moya Start : 21-Aug-2008 Inactive VITAMIN D3, 83626YNIT (Oral Capsule) 1 Capsule 2 x week [...] Comments:take 1/2 hr prior to lasix Nystatin 033329 UNIT/ML Mouth/Throat Suspension 5 cc cc swish [...] Inactive as of 04-Mar-2016 Coronary 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 (I25.10, 414.01) Comments: other stent [...] Visit Report Result: Comments: See Note; NOTES: [facility] [address] [place] [address] OFFICE VISIT Date of Service: 01/13/18 MR#: [id number] Acct: [id number] Name: RAMU DEWITT Rep #: [id number] : 1940 Provider: Jimi Greenfield MD Age/Sex: 77/M Location: [facility] Status: Signed HPI HPI Chief Complaint: Follow up visit Details: RAMU DEWITT, is a 77 M who presents to the [facility] today for a cardiovascular outpatient follow-up. 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) Ischemic cardiomyopathy (Chronic) FH: sudden cardiac (SCD) (Chronic) 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 of premature coronary heart disease (Marine 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) BPH with urinary obstruction (Chronic) Noncompliance [...] Views Result: Comments: See Note; NOTES: [facility] Imaging Services [address] [place] [address] Hand Min 3 Views MR#: [id number] Acct: [id number] Name: RAMU DEWITT Rep #: [id number] DO B: 1940 M 76 From: Andre Crisostomo MD PCP: Vicki Styles DO Status: REG CLI Study: Hand Min 3 Views Date of Exam: 08/20/17 Exam# [id number] Ordering Dr: Lesa Alvarado MD STUDY: X-RAY [...] 10:07 EDT , Service support , CC: Vicik Styles DO; Lesa Alvarado MD Child Guidance Counselor: Signed 20-Aug-2017 Hand Min 3 Views Result: Comments: See Note; NOTES: [facility] Imaging Services [address] [place] [address] Hand Min 3 Views MR#: [id number] Acct: [id number] Name: RAMU DEWITT Rep #: [id number] DO B: 1940 [facility] From: Andre Crisostomo MD PCP: Vicki Styles DO Status: REG CLI Study: Hand Min 3 Views Date of Exam: 08/20/17 Exam# [id number] Ordering Dr: Lesa Alvarado MD STUDY: X-RAY [...] CC: Vicki Styles DO; Lesa Alvarado MD Child Guidance Counselor: Signed 20-Aug-2017 Knee 4 or More Views Result: Comments: See Note; NOTES: [facility] Imaging Services [address] [place] [address] Knee 4 or More Views MR#: [id number] Acct: [id number] Name: RAMU DEWITT Rep #: [id number] : 1940 76 From: Andre Crisostomo MD PCP: Vicki Styles DO Status: REG CLI Study: Knee 4 or More Views Date of Exam: 08/20/17 Exam# [id number] Ordering Dr: Lesa Alvarado MD STUDY: X-RAY [...] CC: Vicki Styles DO; Lesa Alvarado MD Child Guidance Counselor: Signed 20-Aug-2017 Knee 4 or More Views Result: Comments: See Note; NOTES: [facility] Imaging Services [address] [address] Knee 4 or More Views MR#: [id number] Acct: [id number] Name: RAMU DEWITT Rep #: [id number] : 1940 [facility] From: Andre Crisostomo MD PCP: Vicki Styles DO Status: REG CLI Study: Knee 4 or More Views Date of Exam: 08/20/17 Exam# [id number] Ordering Dr: Lesa Alvarado MD STUDY: X-RAY [...] CC: Vicki Styles DO; Lesa Alvarado MD Child Guidance Counselor: Signed 24-Jun-2017 Parathyroid Scan Result: Comments: See Note; NOTES: [facility] Imaging Services [address] [place] [address] Parathyroid Scan MR#: [id number] Acct: [id number] Name: RAMU DEWITT Rep #: [id number] DO B: 1940 M 76 From: Rickie Mcelroy DO PCP: Vicki Styles DO Status: REG CLI Study: Parathyroid Scan Date of Exam: 06/24/17 Exam# [id number] Ordering Dr: Vicki Styles DO CLINICAL: 76-year-old [...] Service support , CC: Vicki Styles DO Child Guidance Counselor: Signed 17-Jun-2017 Hand Min 3 Views Result: Comments: See Note; NOTES: [facility] Imaging Services [address] [place] [address] Hand Min 3 Views MR#: [id number] Acct: [id number] Name: RAMU DEWITT Rep #: [id number] DO B: 1940 M 76 From: Trung Gonzalez DO PCP: Vicki Styles DO Status: REG CLI Study: Hand Min 3 Views Date of Exam: 06/17/17 Exam# [id number] Ordering Dr: Vicki Styles DO STUDY: X-RAY [...] Service support , CC: Samira soloriojuan Styles Child Guidance Counselor: Signed 16-Jun-2017 Cardiology Visit Report Result: Comments: See Note; NOTES: [facility] [address] [place] [address] OFFICE VISIT Date of Service: 06/16/17 MR#: [id number] Acct: [id number] Name: RAMU DEWITT Rep #: [id number] : 1940 Provider: LUIS Sanders Age/Sex: 76/M Location[facility] Status: Signed HPI HPI Details: RAMU [...] brachial Intake Visit Reasons: 3 M FU Mold Injector Required: No Accompanied by: None Is patient [...] 12/12/16 [Rx Confirmed 06/14/17] Hydrocodone Bitart/Apap 5-325 [Hood 5/325] 1 tab PO Q6H PRN PRN [...] include beta-evelin and diuretic. 2. Atherosclerosis of [place] coronary artery of [place] heart witho ut angina pectoris I25.10 S/P [...] on any cholesterol lowering medication. 6 . 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 [...] prior to saving. 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 Computer is reading acute inferior [place]. I am in disagreement. Chest x-ray reveals [...] your Primary Care Provider. Call [facility] ([phone]) or jignesh merchant to the closest Emergency Room. Call 911 if necessary. 12/08/16 0827 <Electronically signed by Robe Mary MD> Date Robe Mary MD Cosigner Signature (If Indicated): Date CC: Jimi Greenfield MD; Vicki Styles DO 08-Dec-2016 Knee 1 or 2 Views Result: Comments: See Note; NOTES: [facility] Imaging Services [address] [place] [address] Knee 1 or 2 Views MR#: [id number] Acct: [id number] Name: RAMU DEWITT Rep #: [id number] D OB: 1940 M 75 From: Shahab Carlos MD PCP: Vicki Styles DO Status: REG ER Study: Knee 1 or 2 Views Date of Exam: 12/08/16 Exam# [id number] Ordering Dr: Robe Mary MD STUDY: X-RAY [...] Shahab Carlos MD at 12:57 EDT Tel [phone], Service support , CC: Vicki Styles DO; Robe Mary MD Child Guidance Counselor: Signed 08-Dec-2016 Chest 1 View (Portable) Result: Comments: See Note; NOTES: [facility] Imaging Services [address] [place] [address] Chest 1 View (Portable) MR#: [id number] Acct: [id number] Name: RAMU DEWITT Rep #: [id number] : 1940 M 75 From: Shahab Carlos MD PCP: Vicki Styles DO Status: REG ER Study: Chest 1 View (Portable) Date of Exam: 12/08/16 Exam# [id number] Ordering Dr: Robe Mary MD STUDY: X- [...] Shahab Carlos MD at 12:58 EDT Tel [phone], Service support , CC: Vicki Styles DO; Robe Mary MD Child Guidance Counselor: Signed 07-Jan-2016 Chest 1 View (Portable) Result: Comments: See Note; NOTES: [facility] Imaging Services [address] [place] [address] Verdajose alejandro 4d Chest 1 View (Portable) MR#: [id number] Acct: [id number] Name: RAMU DEWITT Rep #: [id number] : 1940 M 75 From: Shahab Carlos MD PCP: Vicki Styles DO Status: REG ER Study: Chest 1 View (Portable) Date of Exam: 01/07/16 Exam# [id number] Ordering Dr: Ron Buchanan MD STUDY: X-RAY [...] Shahab Carlos MD at 15:38 EDT Tel [phone], Service support [phone], CC: Vicki Styles DO; Jerel Buchanan MD Child Guidance Counselor: Signed 13-Nov-2015 Echocardiogram Complete Result: Comments: See Note; NOTES: [facility] Cardiovascular Services [address] [place] [address] Echo Complete 11/13/15 1006 MR#: [id number] Acct: [id number] Name: RAMU DEWITT Rep #: [id number] : 1940 74 From: Jimi Greenfield MD Attending Dr: Precious Cole Status: REG CLI Ordering Dr: Precious Cole Date: 11/13/15 Location: [facility] Sex: M C Admitted: Reas on [...] Dictated: 11/13/15 1006 Date Transcribed: 11/13/15 1256 Child Guidance Counselor: Signed 08-Oct-2015 ELECTROCARDIOGRAM, COMPLETE (ECG) (14578) Result: [MEASUREMENTS ANALYSIS] Date of Test: 10/08/2015 09:07:11; Heart Rate: 98; IL Interval: 0; QRS: 114; QT Interval: 372; Corrected QT Interval (QTc): 438; P Wave [place]: -90; QRS Wave [place]: -1; T Wave [place]: -33; Blood Pressure: 142/86 [ECG DIAGNOSTIC STATEMENTS] Date of Test: 10/08/2015 09:07:11; Summary: Atrial fibrillation -Nonspecific ST depression + Nonspecific T-abnormality -Nondiagnostic. ABNORMAL 09-Jul-2015 Chest 1 View (Portable) Result: Comments: See Note; NOTES: [facility] Imaging Services [address] [place] [address] Verdana 4d Chest 1 View (Portable) MR#: [id number] Acct: [id number] Name: RAMU MARTIN Rep #: [id number] : 1940 M 74 From: Noa Buchanan MD PCP: Vicki Styles DO Status: REG ER Study: Chest 1 View (Portable) Date of Exam: 07/09/15 Exam# [id number] Ordering Dr: Jerel Buchanan MD STUDY: X-RAY [...] at 17:21 EDT Tel , Service support [phone], RAD/Chest 1 View (Portable) IMPRESSION: New small pleural effusion with right b asilar lung consolidation. Persisting cardiomegaly. Electronically Signed: Noa Buchanan MD at 17:21 EDT Tel , Service support [phone], C C: Vicki Styles DO; Jerel Buchanan MD Child Guidance Counselor: Signed 24-May-2015 Nuclear Stress Test - Chemical Result: Comments: See Note; NOTES: [facility] Imaging Services [address] [place] [address] Lorie 4d Nuclear Stress Test - Chemical MR#: [id number] Acct: [id number] N ani: RAMU DEWITT Rep #: [id number] : 1940 74 From: Jimi Greenfield MD [...] present. Jimi Greenfield MD T: NTS JOB: [id number] <Electronically signed by Jimi Greenfield MD> Date Jimi Greenfield MD CC: Vicki Styles DO Date Dictated: 05/24/15 1253 D ate Transcribed: 05/24/15 1253 Child Guidance Counselor: Signed 18-Apr-2015 Chest 1 View (Portable) Result: Comments: See Note; NOTES: [facility] Imaging Services [address] [place] [address] Verdana 4d Chest 1 View (Portable) MR#: [id number] Acct: [id number] Name: RAMU MARTIN Rep #: [id number] : 1940 74 From: Shahab Carlos MD PCP: Vicki Styles DO Status: REG ER Study: Chest 1 View (Portable) Date of Exam: 04/18/15 Exam# [id number] Ordering D r: Ros Zuniga STUDY: X-RAY [...] Shahab Carlos MD at 13:57 EST Tel [phone], Service support [phone], RAD/Chest 1 View (P ortable) IMPRESSION: Thyromegaly and mild degree of CHF with bibasilar atelectasis. Electronically Signed: Shahab Carlos MD at 13:57 EST Tel [phone], Service support , CC: Ros Zuniga; Vicki Styles DO Child Guidance Counselor: Signed 18-Apr-2015 EKG (52859) Comments: afib with RVR-- 150 -pt admits he hasnt taken bystolic >30 day Result: [MEASUREMENTS ANALYSIS] Date of Test: 04/18/2015 11:50:46; Heart Rate: 150; IL Interval: -612; QRS: 96; QT Interval: 302; Corrected QT Interval (QTc): 459; P Wave [place]: 1; QRS Wave [place]: 15; T Wave [place] : -90; Blood Pressure: 124/82 [ECG DIAGNOSTIC STATEMENTS] Date of Test: 04/18/2015 11:50:46; Summary: Possible atrial fibrillation -Inferior infarct -age undetermined. -Nonspecific ST depression -Nondiagnostic. ABNORMAL 06-May-2014 Sleep Study Report Result: Comments: See Note; NOTES: [facility] SLEEP DISORDER CENTER [facility] [place] [place] [address] Polysomnography with NCPAP MR#: [id number] Acct: [id number] Name: RAMU DEWITT Rep #: [id number] : 1940 73 From: Cezar Escalante MD PCP: Vicki Styles DO Status: REG CLI Ordering Dr.: Dana Osborne NP-C Date: 05/01/14 Sex: M C REFERRING PHYSICIAN: COREY Shah SLEEP HISTORY: This is a CPAP titration study performed on this 73-year-old male with a body mass index of 36.5 and an [place] Sleepiness Scale score of 8. Diagnostic polysomnogram [...] version). Please note that a reference to [facility] AHI in this report is consistent with the current Hypopnea definition according to Medicare Criteria and an AAS AHI reference is consistent with the current Hypopnea definition according to the AASM criteria. PROCEDURE: The study was attended continuously by a sales and service technician. Monitored parameters included left and right [...] Report Result: Comments: See Note; NOTES: [facility] SLEEP DISORDER CENTER [address] [place] [address] Polysomnography MR#: [id number] Acct: [id number] Name: RAMU DEWITT Rep #: [id number] : 1940 73 From: Dillon Miner MD PCP: Vicki Styles DO Status: REG CLI Ordering Dr.: Vicki Styles DO Date: 03/08/14 Sex: M C REFERRING PHYSICIAN: Dr. Styles. SLEEP HIS TORY: The patient is a 73-year-old gentleman with a calculated body mass index of 36.5 and an [place] Sleepiness Scale score of 8/24. He complains [...] version). Please note that a reference to [facility] AHI in this report is consistent with the current Hypopnea definition according t o Medicare Criteria and an AASM AHI reference is consistent with the current Hypopnea definition according to the AASM criteria. PROCEDURE: The study was attended continuously by a sales and service technician. Monitored parameters included left and right EOG, frontal, central, and occipital EEG, mental and submental EMG, left and right anterior tibialis EMG, signal ECG waveform, snore, continuous airflow w ith thermistor and nasal pressure transducer, chest and abdominal plethysmography efforts, oxygen saturation with heart rate, and body positioning with video monitoring. SLEEP STUDY DATA: The [facility] polysomnogram began at 0939:27 p.m. and ended at 162636 a.m. for a total recording time of [...] Co-signature (if applicable) Date Signed 28-Dec-2013 Spirometry (97336) Result: 29-Aug-2013 Chest PA and Lateral Result: Comments: See Note; NOTES: [facility] Imaging Services [address] [place] [address] Radiology Report MR#: [id number] Acct: [id number] Name: RAMU DEWITT Rep #: [id number] : 1940 M 72 From: Shahab Carlos MD PCP: Vicki Styles DO Status: [facility] CLI Study: Chest PA and Lateral Date of Exam: 08/29/13 Exam# [id number] Ordering Dr: Vicki Styles DO STUDY: X-RAY [...] Shahab Carlos MD at 15:06 EDT Tel [phone], Service support [phone], CC: Vicki Styles DO Child Guidance Counselor: Signed 24-Aug-2013 Spirometry (99274) Comments: obstruction present Result: Social History Name Dates Details Alcohol Use Comments: Occasional alcohol use Status: Active Caffeine Use Comments: 6 - 8 Glasses per day Status: Active Non Smoker/No Tobacco Use Status: Active Tobacco use: Former smoker. Comments: 08/26/11 Status: Active Smoking Status Name Dates Details Former smoker Vital Signs Date Test Result Details 15-Wph-983819:13 Comments: [facility] and had a glaucoma test donehearing wnl [...] kg/m2 Body Surface Area Calculated 2.08 m2 9-Ism-541825:19 Pulse 68 /min Comments: Pattern: Regular Respiration [...] Calculated 2.05 m2 :36 Comments: [facility] and had glaucoma test done Pulse [...] Surface Area Calculated 2.13 m2 :47 Comments: [facility] and had a glaucoma test [...] kg/m2 Body Surface Area Calculated 2.15 m2 78-Kvv-068454:45 Pulse 55 /min Comments: Pattern: Regular O2 [...] kg/m2 Body Surface Area Calculated 2.12 m2 30-Gxh-779902:44 Pulse 58 /min Comments: Pattern: Regular Respiration [...] :19 Comments: before- BP 142/89 Sp02- 98% Y-42ktfej-SJ 150/84 Sp02 97% P-60 Temperature 97.9 f [...] 0.00 cm Results Date Description Value Details 96-Axl-319485:16 CBC W/Diff, Automated Comments: [facility] [facility] [address] [place], [place], [address] Absolute Lymph 0.99 {X10_3/ul} (Normal) Range: 0.83-4.51 [...] 4.6-6.2 WBC 6.3 K/mm3 (Normal) Range: 4.4-11.0 19-Aog-070545:16 Comprehensive Metabolic Profil Comments: DR. ALVARADO ORDERED CMP CBCD URICDRLaquita GALLEGO ORDERED CMP [facility] [address] [place], [place], [address] GAP 9 (Normal) Range: 5-15 CO2 30.0 [...] A.D.A. criteria.Please note revised GLUCOSE reference range lsitykuhy22/02/2018. 14-Mha-479481:16 PTHIN 156.2 pg/mL (Abnormal) Comments: [facility] [address] [place], [place], [address] Range: 18.4-80.1 58-Adt-851046:16 Uric Acid Comments: DR. ALVARADO ORDERED CMP CBCD URICDR. LASHONDA ORDERED CMP PTH [facility] [address] [place], [place], [address] URIC 7.7 mg/dL (Abnormal) Range: 3.5-7.2 Comments: The drugs N-Acetylcysteine and Metamizole may falselydepress this assay. 51-Hpw-865167:16 Vitamin D,25 Hydroxy Comments: [facility] [address] [place], [address] Vitamin D 25-OH 22.6 ng/mL (Abnormal) Range: 29.95-100.01 Comments: Vitamin D 25(OH) Status Range Deficiency <20 ng/mL (50nmol/L) Insuffciency 20 - 30 ng/mL (50 - 75 nmol/L) Sufficiency 30 - 100 ng/mL (75 - 250 nmol/L) Toxicity >100 ng/mL (>250 nmol/L) 77-Qpr-096235:06 CBC W/Diff, Automated Comments: [facility] [address] [place], [address] Absolute Lymph 1.37 {X10_3/ul} (Normal) Range: 0.83-4.51 [...] 4.6-6.2 WBC 7.1 K/mm3 (Normal) Range: 4.4-11.0 16-Eya-444601:06 Comprehensive Metabolic Profil Comments: [facility] [address] [place], [address] GAP 12 (Normal) Range: 5-15 CO2 26.0 [...] A.D.A. criteria.Please note revised GLUCOSE reference range iimgvrfmx85/02/2018. 23-Axn-020417:06 Uric Acid Comments: [facility] [address] [place], [address] URIC 9.2 mg/dL (Abnormal) Range: 3.5-7.2 Comments: The drugs N-Acetylcysteine and Metamizole may falselydepress this assay. :39 CBC W/Diff, Automated Comments: [facility] [address] [place], [address] Absolute Lymph 1.40 {X10_3/ul} (Normal) Range: 0.83-4.51 [...] Range: 4.4-11.0 :39 Comprehensive Metabolic Profil Comments: [facility] [address] [place], [place], [address] GAP 8 (Normal) Range: 5-15 CO2 30.0 [...] A.D.A. criteria.Please note revised GLUCOSE reference range vjqcotkme80/02/2018. 83-Jgp-750033:39 Uric Acid Comments: [facility] [address] [place], [place], [address] URIC 9.1 mg/dL (Abnormal) Range: 3.5-7.2 Comments: The drugs N-Acetylcysteine and Metamizole may falselydepress this assay. 0-Uds-026681:57 HgA1C , Office (26461) HgA1C , Office 6.9 % (Normal) Range: 4.6 - 7.1 3-Uav-171710:57 Blood Glucose , Office (35161) Blood Glucose , Office 173 (Normal) 31-Imm-302761:26 CBC W/Diff, Automated Comments: [facility] [address] [place], [address] Absolute Lymph 1.30 {X10_3/ul} (Normal) Range: 0.83-4.51 [...] 4.6-6.2 WBC 9.0 K/mm3 (Normal) Range: 4.4-11.0 00-Rhs-095238:26 CCP IgG Antibodies Comments: [facility] (refer to report for specific site)refer to report for address and phone number ANTI-CCP 708516 8 {units} (Normal) Range: 0-19 Comments: Negative <20 Weak positive 20 - 39 Moderate positive 40 - 59 Strong positive >59 50-Zid-166879:26 Comprehensive Metabolic Profil Comments: [facility] [address] [place], [place], [address] GAP 9 (Normal) Range: 5-15 CO2 28.0 [...] A.D.A. criteria.Please note revised GLUCOSE reference range ykgotfndd30/02/2018. 11-Rfy-063198:26 CRP Comments: [facility] [address] [place], [place], [address] C-REACTIVE PROT 8.60 mg/L (Abnormal) Range: 0.0-3.0 Comments: C-Reactive Protein (CRP) provides useful information for thediagnosis, therapy and monitoring of inflammatory processesand associated diseases. For the evaluation of Relative Riskfor Cardiovascular Dise ase, a High Sensitivity CRP (HSCRP)should be ordered. :26 Erythrocyte Sed Rate Comments: [facility] [address] [place], [address] SED RATE 18 mm/h (Normal) Range: 0-20 70-Yyl-387469:26 Hep B Surface Antibodies Comments: [facility] (refer to report for specific site)refer to report for address and phone number Hep B Patricia AB Non Reactive (Normal) Comments: Non Reactive: Inconsistent with immunity, less than 10 mIU/mL Reactive: Consistent with immunity, greater than 9.9 mIU/ mL 44-Vzg-301133:26 Hepatitis B Surface Ag Comments: [facility] (refer to report for specific site)refer to report for address and phone number HB SURF AG Negative (Normal) Comments: Performed at: - [facility] [id number] Director: Christopher Molina PhD, Phone: [phone] at: [facility] [id number] Director: Dillon Falk MD, Phone: [phone] 11-Map-454433:26 Hepatitis C Antibodies Comments: [facility] (refer to report for specific site)refer to report for address and phone number HEP C AB <0.1 {s/co_ratio} (Normal) Range: 0.0-0.9 Comments: Negative: < 0.8 Indeterminate: 0.8 - 0.9 Positive: > 0.9 The CDC recommends that a positive HCV antibody result be followed up with a HCV Nucleic Acid Amplification test (609799). 74-Xfv-734045:26 Rheumatoid Factor Comments: [facility] [address] [place], [place], [address] RHEUMATOID FAC < 10.0 {IU/mL} (Normal) 14-Wds-705075:26 Uric Acid Comments: [facility] [address] [place], [address] URIC 10.7 mg/dL (Abnormal) Range: 3.5-7.2 Comments: The drugs N-Acetylcysteine and Metamizole may falselydepress this assay. 20-Opi-220337:20 CCP ANTIBODY (25892) Comments: PATIENT NOT FASTINGPERFORMED BY: Darudar Qadevn3533 [facility] [id number] BY: [address] [id number] CCP Antibodies IgG/IgA 8 {units} (Normal) Range: 0-19 Comments: Negative <20 Weak positive 20 - 39 Moderate positive 40 - 59 Strong positive >59 75-Mvh-367006:20 SED RATE ERYTHROCYTE Comments: PATIENT NOT FASTINGPERFORMED BY: Darudar Sydqtw[address] [place] [address] [id number] BY: [address] [id number] (60991) Sedimentation Rate-Westergren 32 mm/h (Abnormal) Range: 0-30 92-Uoj-436038:20 C-REACTIVE PROTEIN Comments: PATIENT NOT FASTINGPERFORMED BY: Darudar Nhsblt0640 [facility] [id number] BY: [address] [id number] (93873) C-Reactive Protein, Quant 24.6 mg/L (Abnormal) Range: 0.0-4.9 47-Ubb-373545:20 RHEUMATOID FACTOR-QUANT Comments: PATIENT NOT FASTINGPERFORMED BY: [place]ud[place]Chelsea [place] 2150070 [facility] [id number] BY: [address] [id number] (65079) RA Latex Turbid. <10.0 {IU/mL} (Normal) Range: 0.0-13.9 54-Cil-810369:20 THAIS (ANTINUCLEAR ANTIBODY) Comments: PATIENT NOT FASTINGPERFORMED BY: DarudarChelsea Ville 2150070 [facility] [id number] BY: [facility]1447 [facility] [id number] (84889) THAIS Direct Negative (Normal) 2-Dlh-774410:59 MAGNESIUM (91975) Comments: PATIENT WAS FASTINGPERFORMED BY: [facility] Eucaoh0666 [address] RoadDublin [place] [id number] Magnesium, Serum 2.1 mg/dL (Normal) Range: 1.6-2.3 2-Czd-109224:59 PHOSPHORUS (08096) Comments: PATIENT WAS FASTINGPERFORMED BY: [facility] Rvriap4411 [address] RoadDublin [place] [id number] Phosphorus, Serum 3.1 mg/dL (Normal) Range: 2.5-4.5 3-Mom-150647:59 PARATHORMONE (37080) Comments: PATIENT WAS FASTINGPERFORMED BY: [facility] Wvspwa8238 [address] RoadDublin [place] [id number] PTH, Intact 67 pg/mL (Abnormal) Range: 15-65 8-Zyc-813129:59 CALCIFEDIOL (40219) Comments: PATIENT WAS FASTINGPERFORMED BY: [facility] Tvbaxw0868 [address] RoadDublin [place] [id number] Vitamin D, 25-Hydroxy 21.5 ng/mL (Abnormal) Range: 30.0-100.0 Comments: Vitamin D deficiency has been defined by the [place] ofMedicine and an Endocrine Society practice guideline as alevel of serum 25-OH vitamin D less than 20 ng/mL (1,2).The Endocrine Society went on to further define vitamin Dinsufficiency as a level between 21 and 29 ng/mL (2).1. IOM ([place] of Medicine). 2010. Dietary reference intakes for calcium and D. [place]: The National Academies Press.2. Marcelle MF, Justin NC, Amira ELIAS, et al. Evaluation, treatment, and prevention of vitamin D deficiency: an Endocrine Society clinical practice guideline. JCEM. 2010; 96(7):1911-30. 0-Lze-014976:59 TSH (70803) Comments: PATIENT WAS FASTINGPERFORMED BY: [facility] Ulzxgt6854 [address] RoadDublin [place] [id number] TSH 3.200 {uIU/mL} (Normal) Range: 0.450-4.500 9-Nlw-307177:59 METABOLIC PANEL, COMPREHENSIVE Comments: PATIENT WAS FASTINGPERFORMED BY: DarudarFort Defiance Indian HospitalJeamyp6011 [facility] [id number] (66103) ALT (SGPT) 13 [iU]/L (Normal) Range: 0-44 [...] Glucose, Serum 166 mg/dL (Abnormal) Range: 65-99 1-Hzj-238339:59 LIPID PANEL (22807) Comments: PATIENT WAS FASTINGPERFORMED BY: DarudarSaint Barnabas Behavioral Health CenterNdhasi3357 [facility] [id number] LDL/HDL Ratio 2.4 {ratio_units} (Normal) Range: 0.0-3.6 Comments: LDL/HDL Ratio Men Women 1/2 Avg.Risk 1.0 1.5 Av g.Risk 3.6 3.2 2X Avg.Risk 6.2 5.0 3X Avg.Risk 8.0 6.1 LDL Cholesterol Calc 101 mg/dL (Abnormal) Range: 0-99 VLDL Cholesterol Bharat 28 mg/dL (Normal) Range: 5-40 HDL Cholesterol 42 mg/dL (Normal) Triglycerides 139 mg/dL (Normal) Range: 0-149 Cholesterol, Total 171 mg/dL (Normal) Range: 100-199 4-Arq-966818:59 CBC W/AUTO DIFF WBC (01805) Comments: PATIENT WAS FASTINGPERFORMED BY: [facility] Syjmzl3983 [facility] [id number] Immature Grans (Abs) 0.0 {x10E3/uL} (Normal) Range: [...] (Normal) Range: 3.4-10.8 :51 HgA1C , Office (77754) HgA1C , Office 7.0 % (Normal) Range: 4.6 - 7.1 :51 Blood Glucose , Office (37972) Blood Glucose , Office 197 (Normal) 8-Ynl-108753:35 Basic Metabolic Profile (BMP) Comments: 'TROP' Serial specimen #1, #2, #3, or #4: 1[facility] [address] [place], [place], [address] GAP 11 (Normal) Range: 5-15 CO2 25.0 [...] A.D.A. criteria. :35 BNP,B-Type NATRIURETIC PEPTIDE Comments: [facility] [address] [place], [place], [address] B-TYPE KAE PEP 1319.4 pg/mL (Abnormal) Range: 0-100 :35 CBC W/Diff, Automated Comments: [facility] [address] [place], [address] Absolute Lymph 0.87 {X10_3/ul} (Normal) [...] 4.6-6.2 WBC 12.7 K/mm3 (Abnormal) Range: 4.4-11.0 4-Vjs-209051:35 Troponin-I Comments: 'TROP' Serial specimen #1, #2, #3, or #4: [address] [place] [address] [address] [place], [address] TROPONIN-I 0.03 ng/mL (Normal) Comments: TROPONIN-I EXPECTED VALUES <0.05 NEGATIVE 0.06 - 0.59 AT RISK OF [place] > OR = 0.60 SUGGEST [place] 6-Fyv-642502:35 Microscopic Examination Comments: PATIENT WAS FASTINGPERFORMED BY: CB [facility] Tymdlz[address]99 [address] [place] [facility] CouncilAt[facility] [place] [id number] Bacteria Few (Normal) Mucus Threads Present (Normal) Cast Type Hyaline casts (Normal) Casts Present {/lpf} (Abnormal) Epithelial Cells (non renal) None seen {/hpf} (Normal) Range: 0 - 10 RBC 0-2 {/hpf} (Normal) Range: 0 - 2 WBC 0-5 {/hpf} (Normal) Range: 0 - 5 5-Lpj-049662:00 PSA (PROSTATE SPECIFIC Comments: send copy to dr bianchi; PATIENT NOT FASTINGPERFORMED BY: [employer] Ugucdr6806 [facility] [id number] ANTIGEN) (V76.44) Prostate Specific Ag, 2.1 ng/mL (Normal) Range: 0.0-4.0 Serum Comments: [facility] ECLIA methodology. .According to the [place] [employer] Association, Serum PSA shoulddecrease and remain at undetectable levels after radicalprostatectomy. The AUA defines biochemical recurrence as an initialPSA value 0.2 ng/mL or greater followed by a subsequent confirmatoryPSA value 0.2 ng/mL or greater.Values obtained with d ifferent assay methods or kits cannot be usedinterchangeably. Results cannot be interpreted as absolute evidenceof the presence or absence of malignant disease. 2-Zqs-851187:35 TSH (49623) Comments: PATIENT WAS FASTINGPERFORMED BY: [employer] Ifbhkk7106 [facility] [id number] TSH 4.070 {uIU/mL} (Normal) Range: 0.450-4.500 5-Xzz-833960:35 URINALYSIS, W/ MICRO (46565) Comments: PATIENT WAS FASTINGPERFORMED BY: [employer] Miorio3077 [facility] [id number]; can review at next appt Microscopic Examination See below: (Normal) Comments: Microscopic was indicated and was performed. Nitrite, Urine Negative (Normal) Urobilinogen,Semi-Qn 1.0 mg/dL (Normal) Range: 0.2-1.0 Bilirubin Negative (Normal) Occult Blood Negative (Normal) Ketones Negative (Normal) Glucose Negative (Normal) Protein 1+ (Abnormal) WBC Esterase Negative (Normal) Appearance Clear (Normal) Urine-Color Yellow (Normal) pH 7.0 (Normal) Range: 5.0-7.5 Specific [place] 1.013 (Normal) Range: 1.005-1.030 3-Cxc-280872:35 MICROALBUMIN: CREATININE RATIO Comments: PATIENT WAS FASTINGPERFORMED BY: DarudarSaint Barnabas Behavioral Health CenterFsirlq5810 [facility] [id number] (19945) AND (65556) Microalb/Creat Ratio 136.1 {mg/g_creat} (Abnormal) Range: 0.0-30.0 Microalbumin, Urine 118.3 ug/mL (Normal) Creatinine, Urine 86.9 mg/dL (Normal) 1-Enu-021914:35 METABOLIC PANEL, COMPREHENSIVE Comments: PATIENT WAS FASTINGPERFORMED BY: LabCoSaint Barnabas Behavioral Health CenterOtusod0726 [facility] [id number] (34054) ALT (SGPT) 10 [iU]/L (Normal) Range: 0-44 [...] mg/dL (Abnormal) Range: 65-99 :35 LIPID PANEL (49799) Comments: PATIENT WAS FASTINGPERFORMED BY: [employer]70 [facility] [id number] LDL/HDL Ratio 2.4 {ratio_units} (Normal) Range: 0.0-3.6 Comments: LDL/HDL Ratio Men Women 1/2 Avg.Risk 1.0 1.5 Av g.Risk 3.6 3.2 2X Avg.Risk 6.2 5.0 3X Avg.Risk 8.0 6.1 LDL Cholesterol Calc 99 mg/dL (Normal) Range: 0-99 VLDL Cholesterol Bharat 25 mg/dL (Normal) Range: 5-40 HDL Cholesterol 41 mg/dL (Normal) Triglycerides 123 mg/dL (Normal) Range: 0-149 Cholesterol, Total 165 mg/dL (Normal) Range: 100-199 2-Jwq-662042:35 CBC W/AUTO DIFF WBC (51821) Comments: PATIENT WAS FASTINGPERFORMED BY: Mijn AutoCoachlin6370 [facility] [id number] Immature Grans (Abs) 0.0 {x10E3/uL} (Normal) Range: [...] 4.14-5.80 WBC 6.7 {x10E3/uL} (Normal) Range: 3.4-10.8 7-Dim-892963:35 CALCIFIDIOL (41158) VIT D 25 Comments: PATIENT WAS FASTINGPERFORMED BY: [facility]First[facility] [id number] Vitamin D, 25-Hydroxy 37.2 ng/mL (Normal) Range: 30.0-100.0 Comments: Vitamin D deficiency has been defined by the [place] ofMedicine and an Endocrine Society practice guideline as alevel of serum 25-OH vitamin D less than 20 ng/mL (1,2).The Endocrine Society went on to further define vitamin Dinsufficiency as a level between 21 and 29 ng/mL (2).1. IOM ([place] of Medicine). 2010. Dietary reference intakes for calcium and D. [place]: The National Academies Press.2. Marcelle MF, Justin NC, Amira ELIAS, et al. Evaluation, treatment, and prevention of vitamin D deficiency: an Endocrine Society clinical practice guideline. JCEM. 2010; 96(7):1911-30. 6-Mxj-595269:21 HgA1C , Office (90705) HgA1C , Office 6.2 % (Normal) Range: 4.6 - 7.1 7-Skg-606137:21 Blood Glucose , Office (15118) Blood Glucose , Office 162 (Normal) 5-Vgk-692250:56 Microscopic Examination Comments: PATIENT WAS FASTINGPERFORMED BY: [facility] Ythxsf3507 [facility] [id number] Bacteria None seen (Normal) Mucus Threads Present (Normal) Cast Type Hyaline casts (Normal) Casts Present {/lpf} (Abnormal) Epithelial Cells (non renal) 0-10 {/hpf} (Normal) Range: 0 - 10 RBC 0-2 {/hpf} (Normal) Range: 0 - 2 WBC None seen {/hpf} (Normal) Range: 0 - 5 :56 CALCIFIDIOL (84589) VIT D 25 Comments: PATIENT WAS FASTINGPERFORMED BY: [employer]70 [facility]Rank[facility] [id number] Vitamin D, 25-Hydroxy 34.6 ng/mL (Normal) Range: 30.0-100.0 Comments: Vitamin D deficiency has been defined by the [place] ofOhio [facility] Medical Centercine and an Endocrine Society practice guideline as alevel of serum 25-OH vitamin D less than 20 ng/mL (1,2).The Endocrine Society went on to further define vitamin Dinsufficiency as a level between 21 and 29 ng/mL (2).1. IOM ([place] of Medicine). 2010. Dietary reference intakes for calcium and D. [place]: The National Academies Press.2. Marcelle MF, Justin NC, Amira ELIAS, et al. Evaluation, treatment, and prevention of vitamin D deficiency: an Endocrine Society clinical practice guideline. JCEM. 2010; 96(7):1911-30. :56 TSH (15417) Comments: PATIENT WAS FASTINGPERFORMED BY: [employer] Nenwjg4408 [address] [facility] [id number] TSH 5.530 {uIU/mL} (Abnormal) Range: 0.450-4.500 :56 URINALYSIS, W/ MICRO (99705) Comments: PATIENT WAS FASTINGPERFORMED BY: [employer] Hdywum1968 [facility] [id number] Microscopic Examination See below: (Normal) Comments: Microscopic was indicated and was performed. Microscopic Examination MICRON (Normal) Comments: Microscopic follows if indicated. Nitrite, Urine Negative (Normal) Urobilinogen,Semi-Qn 1.0 mg/dL (Normal) Range: 0.2-1.0 Bilirubin Negative (Normal) Occult Blood Negative (Normal) Ketones Negative (Normal) Glucose Negative (Normal) Protein Negative (Normal) WBC Esterase Negative (Normal) Appearance Clear (Normal) Urine-Color Yellow (Normal) pH 7.0 (Normal) Range: 5.0-7.5 Specific [place] 1.009 (Normal) Range: 1.005-1.030 6-Iel-187529:56 MICROALBUMIN: CREATININE RATIO Comments: PATIENT WAS FASTINGPERFORMED BY: [employer] Cdqcyk1408 [facility] [id number] (75548) AND (83864) Microalb/Creat Ratio <12.1 {mg/g_creat} (Normal) Range: 0.0-30.0 Microalbumin, Urine <3.0 ug/mL (Normal) Creatinine, Urine 24.7 mg/dL (Normal) 1-Aru-376155:56 METABOLIC PANEL, COMPREHENSIVE Comments: PATIENT WAS FASTINGPERFORMED BY: Darudar Cigqnj0215 [facility] [id number] (71147) ALT (SGPT) 8 [iU]/L (Normal) Range: 0-44 [...] Glucose, Serum 109 mg/dL (Abnormal) Range: 65-99 7-Gpv-905956:56 CBC W/AUTO DIFF WBC (14915) Comments: PATIENT WAS FASTINGPERFORMED BY: LabCoSaint Barnabas Behavioral Health CenterYzuhzt6963 [facility] [id number] Immature Grans (Abs) 0.0 {x10E3/uL} (Normal) Range: [...] {x10E3/uL} (Normal) Range: 3.4-10.8 :56 LIPID PANEL (92139) Comments: PATIENT WAS FASTINGPERFORMED BY: LabCoSaint Barnabas Behavioral Health CenterSlaess7949 [facility] [id number] LDL/HDL Ratio 2.3 {ratio_units} (Normal) Range: 0.0-3.6 Comments: LDL/HDL Ratio Men Women 1/2 Avg.Risk 1.0 1.5 Av g.Risk 3.6 3.2 2X Avg.Risk 6.2 5.0 3X Avg.Risk 8.0 6.1 LDL Cholesterol Calc 106 mg/dL (Abnormal) Range: 0-99 VLDL Cholesterol Bharat 25 mg/dL (Normal) Range: 5-40 HDL Cholesterol 46 mg/dL (Normal) Triglycerides 127 mg/dL (Normal) Range: 0-149 Cholesterol, Total 177 mg/dL (Normal) Range: 100-199 2-Uyl-100808:36 HgA1C , Office (42870) HgA1C , Office 6.4 % (Normal) Range: 4.6 - 7.1 :36 Blood Glucose , Office (76751) Blood Glucose , Office 129 (Normal) 63-Dqs-766889:20 Blood Glucose , Office (95878) Blood Glucose , Office 111 (Normal) 82-Gnx-907926:20 HgA1C , Office (31505) HgA1C , Office 6.4 % (Normal) Range: 4.6 - 7.1 :25 CBC W/AUTO DIFF WBC (22765) Comments: PATIENT NOT FASTINGPERFORMED BY: [facility] Glrhuk7745 [facility] [id number] Immature Grans (Abs) 0.0 {x10E3/uL} (Normal) Range: [...] 4.14-5.80 WBC 6.0 {x10E3/uL} (Normal) Range: 3.4-10.8 76-Zzx-102952:25 METABOLIC PANEL, COMPREHENSIVE Comments: PATIENT NOT FASTINGPERFORMED BY: LabCoSaint Barnabas Behavioral Health CenterIjrxwp8205 [facility] [id number] (24692) ALT (SGPT) 13 [iU]/L (Normal) Range: 0-44 [...] Glucose, Serum 158 mg/dL (Abnormal) Range: 65-99 9-Bgu-204138:03 Basic Metabolic Profile (BMP) Comments: 'TROP' Serial specimen #1, #2, #3, or #4: 1[facility] [address]aw[address] [place], [place], [address] GAP 6 (Normal) Range: 5-15 CO2 35.0 [...] 126 mg/dLsuggests DIABETES MELLITUS per A.D.A. criteria. 1-Nou-578720:03 BNP,B-Type NATRIURETIC PEPTIDE Comments: [facility] [address] [place], [place], [address] B-TYPE KAE PEP 732.8 pg/mL (Abnormal) Range: 0-100 7-Tpo-355607:03 CBC W/Diff, Automated Comments: [facility] [address] [place], [place], [address] Absolute Lymph 0.93 {X10_3/ul} (Normal) Range: 0.83-4.51 [...] 4.6-6.2 WBC 6.8 K/mm3 (Normal) Range: 4.4-11.0 6-Suf-183148:03 Liver Profile Comments: 'TROP' Serial specimen #1, #2, #3, or #4: [address] [place] [address] [address] [place], [address] D BILI 0.39 mg/dL (Abnormal) Range: 0.00-0.30 T BILI 1.40 mg/dL (Abnormal) Range: 0.20-1.00 ALT 16 U/L (Normal) Range: 12-78 ALK P 90 U/L (Normal) Range: 50-136 AST 18 U/L (Normal) Range: 15-37 GLOB 3.7 g/dL (Abnormal) Range: 2.3-3.5 ALB 3.4 g/dL (Normal) Range: 3.4-5.0 T PROT 7.1 g/dL (Normal) Range: 6.4-8.2 0-Qwo-500273:03 Troponin-I Comments: 'TROP' Serial specimen #1, #2, #3, or #4: [address] [place] [address] [address] [place], [address] TROPONIN-I < 0.02 ng/mL (Normal) Comments: TROPONIN-I EXPECTED VALUES <0.05 NEGATIVE 0.06 - 0.59 AT RISK OF [place] > OR = 0.60 SUGGEST [place] 6-Lgk-762200:07 Urinalysis, Office (87791) UA - LEUKOCYTE ESTERASE Negative (Normal) UA - NITRITE Negative (Normal) URINE UROBILINGN KATELIN TIMED 4 mg/dL (Normal) UA - PROTEIN 30 mg/dL (Normal) UA - PH 7 (Normal) UA - BLOOD Negative (Normal) UA - SPECIFIC GRAVITY 1.020 (Normal) UA - KETONES Negative mg/dL (Normal) UA - BILIRUBIN Negative (Normal) UA - GLUCOSE Negative (Normal) 72-Tmk-865653:59 HgA1C , Office (87540) HgA1C , Office 6.3 % (Normal) Range: 4.6 - 7.1 21-Usj-330501:59 Blood Glucose , Office (67133) Blood Glucose , Office 177 (Normal) :44 Basic Metabolic Profile (BMP) Comments: [facility] [address] [place], [place], [address] GAP 7 (Normal) Range: 5-15 CO2 32.0 [...] 126 mg/dLsuggests DIABETES MELLITUS per A.D.A. criteria. 3-Efl-243360:32 Microscopic Examination Comments: PATIENT NOT FASTINGPERFORMED BY: [facility] Dqrxdj0735 [facility] [id number] Bacteria None seen (Normal) Mucus Threads Present (Normal) Cast Type Hyaline casts (Normal) Casts Present {/lpf} (Abnormal) Epithelial Cells (non renal) 0-10 {/hpf} (Normal) Range: 0 - 10 RBC 0-2 {/hpf} (Normal) Range: 0 - 2 WBC 0-5 {/hpf} (Normal) Range: 0 - 5 :32 CALCIFIDIOL (87905) VIT D 25 Comments: PATIENT NOT FASTINGPERFORMED BY: [facility] Czjyho5393 [facility] [id number] Vitamin D, 25-Hydroxy 34.1 ng/mL (Normal) Range: 30.0-100.0 Comments: Vitamin D deficiency has been defined by the [place] ofMedicine and an Endocrine Society practice guideline as alevel of serum 25-OH vitamin D less than 20 ng/mL (1,2).The Endocrine Society went on to further define vitamin Dinsufficiency as a level between 21 and 29 ng/mL (2).1. IOM ([place] of Medicine). 2010. Dietary reference intakes for calcium and D. [place]: The National Academies Press.2. Marcelle MF, Justin NC, Amira ELIAS, et al. Evaluation, treatment, and prevention of vitamin D deficiency: an Endocrine Society clinical practice guideline. JCEM. 2010; 96(7):1911-30. 7-Aqc-486242:32 TSH (75689) Comments: PATIENT NOT FASTINGPERFORMED BY: [facility]6370 [facility] [id number] TSH 5.190 {uIU/mL} (Abnormal) Range: 0.450-4.500 :32 URINALYSIS, W/ MICRO (64275) Comments: PATIENT NOT FASTINGPERFORMED BY: [facility]6370 [facility] [id number] Microscopic Examination See below: (Normal) Comments: Microscopic was indicated and was performed. Microscopic Examination MICRON (Normal) Comments: Microscopic follows if indicated. Nitrite, Urine Negative (Normal) Urobilinogen,Semi-Qn 1.0 mg/dL (Normal) Range: 0.2-1.0 Bilirubin Negative (Normal) Occult Blood Negative (Normal) Ketones Negative (Normal) Glucose Negative (Normal) Protein Trace (Normal) WBC Esterase Negative (Normal) Appearance Clear (Normal) Urine-Color Yellow (Normal) pH 6.5 (Normal) Range: 5.0-7.5 Specific [place] 1.019 (Normal) Range: 1.005-1.030 :32 MICROALBUMIN: CREATININE RATIO Comments: PATIENT NOT FASTINGPERFORMED BY: DarudarSaint Barnabas Behavioral Health CenterYvdavn7532 [facility] [id number] (51415) AND (72582) Microalb/Creat Ratio 43.8 {mg/g_creat} (Abnormal) Range: 0.0-30.0 Microalbumin, Urine 51.0 ug/mL (Normal) Creatinine, Urine 116.5 mg/dL (Normal) :32 METABOLIC PANEL, COMPREHENSIVE Comments: PATIENT NOT FASTINGPERFORMED BY: Darudar Xjltrg7306 [facility] [id number] (03365) ALT (SGPT) 13 [iU]/L (Normal) Range: 0-44 [...] Glucose, Serum 122 mg/dL (Abnormal) Range: 65-99 9-Soq-858525:32 LIPID PANEL (24300) Comments: PATIENT NOT FASTINGPERFORMED BY: [facility]6370 [facility] [id number] LDL/HDL Ratio 1.9 {ratio_units} (Normal) Range: 0.0-3.6 [...] Cholesterol, Total 145 mg/dL (Normal) Range: 100-199 9-Yca-856502:32 CBC W/AUTO DIFF WBC Comments: PATIENT NOT FASTINGPERFORMED BY: [facility]6370 [facility] [id number] Information: [id number] (84892) Immature Grans (Abs) 0.0 {x10E3/uL} (Normal) Range: [...] to dr mast; PATIENT NOT FASTINGPERFORMED BY: [employer]6370 [employer] [place] [id number] ANTIGEN) (V76.44) Prostate Specific Ag, 2.1 ng/mL (Normal) Range: 0.0-4.0 Serum Comments: [facility] ECLIA methodology. .According to the [place] [employer], Serum PSA shoulddecrease and remain at undetectable levels after radicalprostatectomy. The AUA defines biochemical recurrence as an initialPSA value 0.2 ng/mL or greater followed by a subsequent confirmatoryPSA value 0.2 ng/mL or greater.Values obtained with d ifferent assay methods or kits cannot be usedinterchangeably. Results cannot be interpreted as absolute evidenceof the presence or absence of malignant disease. 32-Mnd-370719:20 Metabolic Panel, Basic Comments: PATIENT NOT FASTINGPERFORMED BY: [employer]6370 [facility] [id number] Information: [id number] (30494) Calcium, Serum 9.0 mg/dL (Normal) Range: 8.6-10.2 [...] Range: 65-99 :26 BNP,B-Type NATRIURETIC PEPTIDE Comments: [facility] Wvakkxkrbl0874 [facility]. [place], [place], [address] B-TYPE KAE PEP 247.5 pg/mL (Abnormal) Range: 0-100 :26 CBC W/Diff, Automated Comments: [facility] Ciztbogpas1705 [facility]. [place], [place], [address] Absolute Lymph 0.87 {X10_3/ul} (Normal) Range: 0.83-4.51 [...] 4.6-6.2 WBC 8.2 K/mm3 (Normal) Range: 4.4-11.0 6-Aqu-276633:08 Basic Metabolic Profile (BMP) Comments: [facility] [address] [place], [place], [address](204) GAP 11 (Normal) Range: 5-15 CO2 30.0 [...] <126 mg/dLsuggests IMPAIRED HOMEOSTASIS per A.D.A. criteria. 0-Utz-658980:00 Basic Metabolic Profile (BMP) Comments: [facility] [address] [place], [place], [address] GAP 12 (Normal) Range: 5-15 CO2 26.0 [...] 126 mg/dLsuggests DIABETES MELLITUS per A.D.A. criteria. 70-Fer-418888:33 Basic Metabolic Profile (BMP) Comments: [facility] Cqxmhabmfu7358 [facility] [place], [place], [address] GAP 5 (Normal) Range: 5-15 CO2 26.0 [...] 126 mg/dLsuggests DIABETES MELLITUS per A.D.A. criteria. 81-Qor-147854:07 Basic Metabolic Profile (BMP) Comments: [facility] [address] [place], [place], [id number] GAP 0 (Abnormal) Range: 5-15 CO2 30.0 [...] 7-18 GLU 101 mg/dL (Normal) Range: 70-110 [id number] BNP,B-Type NATRIURETIC PEPTIDE Comments: [facility] [id number] [place], [address] B-TYPE KAE PEP 560.9 pg/mL (Abnormal) Range: 0-100 [id number] ALBUMIN SERUM (13614) Comments: PATIENT NOT FASTINGPERFORMED BY: [employer] [employer] [id number] [facility] [id number] Albumin, Serum 3.4 g/dL (Abnormal) Range: 3.5-4.8 52-Guw-944923:04 BASIC METABOLIC w/Ionized Comments: PATIENT NOT FASTINGPERFORMED BY: [employer] [address] [id number] Information: [id number] Ca++ (39637) Calcium, Serum 8.5 mg/dL (Abnormal) Range: 8.6-10.2 [...] Glucose, Serum 171 mg/dL (Abnormal) Range: 65-99 8-Erx-401144:34 Calcium Ionized Comments: [facility] (refer to report for specific site)refer to report for address and phone number [place] [address] Test not performed (Normal) Comments: Patient has been credited for testing not performed. Pleasehave patient return if testing is still required. :36 Anion Gap Comments: [facility] [address] [place], [address] GAP 3 (Abnormal) Range: 5-15 :36 BUN 18 mg/dL (Normal) Comments: [address] [place], [address] Range: 7-18 :36 BUN/Creat Ratio Comments: [address] [place], [address] BUN/CRE 11.0 {RATIO} (Normal) Range: 10-20 :36 Carbon Dioxide Comments: [address] [place], [address] CO2 30.0 mmol/L (Normal) Range: 21.0-32.0 :36 Chloride Comments: [place] [address] [place], [address] CL 109 mmol/L (Abnormal) Range: 98-107 :36 Creatinine, Serum Comments: [address] [place], [address] CREAT,SERUM 1.64 mg/dL (Abnormal) Range: 0.70-1.30 Comments: The validity of the calculated GFR AND GFRAA in patients over70 years has not been determined. Clinical correlation isessential. :36 Glucose Comments: [facility] [address] [place], [place], [address] GLU 157 mg/dL (Abnormal) Range: 70-110 Comments: Fasting Glucose result greater than or equal to 126 mg/dLsuggests DIABETES MELLITUS per A.D.A. criteria. :36 Potassium Comments: [facility] [address] [place], [place], [id number] K 4.3 mmol/L (Normal) Range: 3.5-5.1 :36 Sodium Level Comments: [facility] [address] [place], [place], [id number] NA 142 mmol/L (Normal) Range: 136-145 :36 Urinalysis, Office (32447) UA - LEUKOCYTE ESTERASE Negative (Normal) UA [...] Panel, Basic Comments: PATIENT NOT FASTINGPERFORMED BY: LabCoSaint Barnabas Behavioral Health CenterUvacpb5453 [facility] [id number] Information: [id number]; will review at next appt. (26024) Calcium, Serum 9.3 mg/dL (Normal) Range: 8.6-10.2 [...] Glucose, Serum 111 mg/dL (Abnormal) Range: 65-99 75-Dqr-079227:07 URINE DAWIT CULTURE-IDENTIFICATN Comments: PATIENT NOT FASTINGPERFORMED BY: LabCoSaint Barnabas Behavioral Health CenterHahhay4090 [facility] [id number] (29211) Result 1 MUG (Normal) Comments: Mixed urogenital flora1,000 Colonies/mL Urine Culture,Comprehensive Final report (Normal) 27-Cgq-485887:07 URINALYSIS (35143) Comments: PATIENT NOT FASTINGPERFORMED BY: LabCoSaint Barnabas Behavioral Health CenterMpfeze2988 [facility] [id number] Information: [id number] Microscopic Examination MICNIP (Normal) Comments: Microscopic not indicated and not performed. Nitrite, Urine Negative (Normal) Urobilinogen,Semi-Qn 0.2 mg/dL (Normal) Range: 0.2-1.0 Bilirubin Negative (Normal) Occult Blood Negative (Normal) Ketones Negative (Normal) Glucose Negative (Normal) Protein Negative (Normal) WBC Esterase Negative (Normal) Appearance Clear (Normal) Urine-Color Yellow (Normal) pH 6.0 (Normal) Range: 5.0-7.5 Specific [place] 1.010 (Normal) Range: 1.005-1.030 7-Tau-936292:02 Basic Metabolic Profile (BMP) Comments: [facility] [address] [place], [address] GAP 9 (Normal) Range: 5-15 CO2 33.0 [...] 126 mg/dLsuggests DIABETES MELLITUS per A.D.A. criteria. 3-Rzr-541293:02 BNP,B-Type NATRIURETIC PEPTIDE Comments: [facility] [address] [place], [address] B-TYPE KAE PEP 202.1 pg/mL (Abnormal) Range: 0-100 48-Att-220662:55 BNP,B-Type NATRIURETIC PEPTIDE Comments: [facility] [address] [place], [address] B-TYPE KAE PEP 288.3 pg/mL (Abnormal) Range: 0-100 92-Mpi-335641:48 BNP,B-Type NATRIURETIC PEPTIDE Comments: [facility] [address] [place], [address] B-TYPE KAE PEP 231.4 pg/mL (Abnormal) Range: 0-100 30-Vgs-980007:33 ASSAY, NATIURETIC PEPTIDE Comments: PATIENT NOT FASTINGPERFORMED BY: LabCoSaint Barnabas Behavioral Health CenterQlkzqp6451 [facility] [id number] Information: [id number] (07082) B-Type Natriuretic Peptide 296.5 pg/mL (Abnormal) Range: 0.0-100.0 87-Dsm-328070:15 Basic Metabolic Profile (BMP) Comments: Serial Specimen #1, #2 or #3? 1'TROP' Serial specimen #1, #2, #3, or #4: [facility] [address] [place], [address] GAP 7 (Normal) Range: 5-15 [...] 126 mg/dLsuggests DIABETES MELLITUS per A.D.A. criteria. 24-Gvq-013642:15 BNP,B-Type NATRIURETIC PEPTIDE Comments: [facility] Aempddl[address]7206 [facility]. [place], [place], [phone] B-TYPE KAE PEP 200.1 pg/mL (Abnormal) Range: 0-100 47-Hcy-903113:15 CBC W/Diff, Automated Comments: [facility] [address] [facility]. [place], [place], [address](606) Absolute Lymph 1.42 {X10_3/ul} (Normal) Range: 0.83-4.51 [...] 4.6-6.2 WBC 7.6 K/mm3 (Normal) Range: 4.4-11.0 53-Stt-995407:15 CK-MB Quantitative and Index Comments: Serial Specimen #1, #2 or #3? 1'TROP' Serial specimen #1, #2, #3, or #4: [address] [place] [address] [address]61 [place], [address] CKRI 1.6 % (Abnormal) Range: 0.0-1.4 Comments: RELATIVE INDEX >1.5% IS PRESUMPTIVELY POSITIVE CPKMB 3.3 ng/mL (Normal) Range: 0.0-5.0 Comments: CK-MB and RI Interpretation MB Relative Index Non-AMI <or= 5 NA Indeterminate > 5 <or= 4 AMI > 5 > 4 CPK TOTAL 208 U/L (Normal) Range: 39-308 98-Bep-718228:15 Troponin-I Comments: Serial Specimen #1, #2 or #3? 1'TROP' Serial specimen #1, #2, #3, or #4: [address] [place] [address] A[address]eroigl5583 [place], [address] TROPONIN-I 0.03 ng/mL (Normal) Comments: TROPONIN-I EXPECTED VALUES <0.05 NEGATIVE 0.06 - 0.59 AT RISK OF [place] > OR = 0.60 SUGGEST [place] 33-Qmu-060266:06 HgA1C , Office (58341) HgA1C , Office 8.0 % (Abnormal) Range: 4.6 - 7.1 98-Sjg-142518:06 Blood Glucose , Office (80764) Blood Glucose , Office 143 (Normal) 0-Box-012226:12 BUN 15 mg/dL (Normal) Comments: Test performed at:[facility] [address] [place] [address] Range: 7-18 3-Twa-539642:12 Partial Thromboplast Time Comments: Test performed at:[facility] [address] [place] [address] PTT 25.9 s (Normal) Range: 24.1-36.2 3-Bot-483975:12 Platelet Count Comments: Test performed at:[facility] [address] [place] [address] PLT 243 K/mm3 (Normal) Range: 150-450 6-Ywk-180708:12 Prothrombin Time w/INR Comments: Test performed at:[facility] [address] [place] [address] INR 0.9 (Normal) PROTIME 12.3 s (Normal) Range: 11.7-14.9 2-Unv-452811:12 Serum Creatinine AND GFR Comments: Test performed at:[facility] [address] [place], [place] [address] CREAT,SERUM 1.3 mg/dL (Normal) Range: 0.8-1.3 94-Kox-039190:09 HgA1C , Office (60837) HgA1C , Office 7.1 % (Normal) Range: 4.6 - 7.1 27-Uat-077032:09 Blood Glucose , Office (54772) Blood Glucose , Office 141 (Normal) :43 BUN 14 mg/dL (Normal) Range: 7-18 :43 CRE CREAT 1.1 mg/dL (Normal) Range: 0.8-1.3 :43 PLT 184 K/mm3 (Normal) Range: 150-450 :43 PT INR 0.9 (Normal) PTP 12.4 s (Normal) Range: 11.7-14.9 Comments: Please note revised PROTIME reference range wuieqsoui19/14/15. 63-Dum-23777:43 PTT 26.3 s (Normal) Range: 24.1-36.2 35-Zxw-355625:25 HgA1C , Office (19052) HgA1C , Office 6.7 % (Normal) Range: 4.6 - 7.1 71-Fyc-497296:25 Blood Glucose , Office (76934) Blood Glucose , Office 140 (Normal) 21-Hph-954619:25 Microscopic Examination Comments: PATIENT WAS FASTINGPERFORMED BY: [facility] [id number] Bacteria None seen (Normal) Mucus Threads Present (Normal) Epithelial Cells (non renal) None seen {/hpf} (Normal) Range: 0 - 10 RBC 0-3 {/hpf} (Normal) Range: 0 - 3 Comments: Effective September 04, 2013 the reference interval for RBC will be changing to: 0 - 2 /hpf. WBC 0-5 {/hpf} (Normal) Range: 0 - 5 62-Obd-388548:47 LIPID PANEL (94289) Comments: PATIENT WAS FASTINGPERFORMED BY: [employer] [facility] [id number] LDL/HDL Ratio 2.7 {ratio_units} (Normal) Range: 0.0-3.6 LDL Cholesterol Calc 90 mg/dL (Normal) Range: 0-99 HDL Cholesterol 33 mg/dL (Abnormal) Comments: According to ATP-III Guidelines, HDL-C >59 mg/dL is considered anegative risk factor for CHD. VLDL Cholesterol Bharat 27 mg/dL (Normal) Range: 5-40 Triglycerides 133 mg/dL (Normal) Range: 0-149 Cholesterol, Total 150 mg/dL (Normal) Range: 100-199 20-Drx-635782:47 Vitamin D Hydroxy (73981) Comments: PATIENT WAS FASTINGPERFORMED BY: Imaging3lin6370 [facility] [id number] Vitamin D, 25-Hydroxy 28.7 ng/mL (Abnormal) Range: 30.0-100.0 Comments: Vitamin D deficiency has been defined by the [place] of[place]icine and an Endocrine Society practice guideline as alevel of serum 25-OH vitamin D less than 20 ng/mL (1,2).The Endocrine Society went on to further define vitamin Dinsufficiency as a level between 21 and 29 ng/mL (2).1. IOM ([place] of Medicine). 2010. Dietary reference intakes for calcium and D. [place]: The National AcademJoyme.com Press.2. Marcelle MF, Justin NC, Amira ELIAS, et al. Evaluation, treatment, and prevention of vitamin D deficiency: an Endocrine Society clinical practice guideline. JCEM. 2010; 96(0):1911-30.; ADDENDA: appt 21-Aug-201311:47 TSH (27914) Comments: PATIENT WAS FASTINGPERFORMED BY: [facility] [id number] TSH 1.700 {uIU/mL} (Normal) Range: 0.450-4.500 78-Jjn-374233:47 URINALYSIS, W/ MICRO (02755) Comments: PATIENT WAS FASTINGPERFORMED BY: [facility] [id number] Microscopic Examination See below: (Normal) Microscopic Examination MICRON (Normal) Comments: Microscopic follows if indicated. Nitrite, Urine Negative (Normal) Urobilinogen,Semi-Qn 1.0 mg/dL (Normal) Range: 0.0-1.9 Bilirubin Negative (Normal) Occult Blood Negative (Normal) Ketones Negative (Normal) Glucose Negative (Normal) Protein Negative (Normal) WBC Esterase Negative (Normal) Appearance Clear (Normal) Urine-Color Yellow (Normal) pH 6.0 (Normal) Range: 5.0-7.5 Specific [place] 1.019 (Normal) Range: 1.005-1.030 72-Pli-578019:47 MICROALBUMIN: CREATININE RATIO Comments: PATIENT WAS FASTINGPERFORMED BY: [facility] [id number] (30227) AND (57421) Microalb/Creat Ratio 5.9 {mg/g_creat} (Normal) Range: 0.0-30.0 Microalbumin, Urine 10.0 ug/mL (Normal) Range: 0.0-17.0 Creatinine, Urine 169.3 mg/dL (Normal) Range: 22.0-328.0 70-Dth-884003:47 METABOLIC PANEL, COMPREHENSIVE Comments: PATIENT WAS FASTINGPERFORMED BY: DarudarFort Defiance Indian HospitalCyfmmq2678 [facility] [id number] (03090) ALT (SGPT) 13 [iU]/L (Normal) Range: 0-44 [...] Glucose, Serum 118 mg/dL (Abnormal) Range: 65-99 71-Tjn-580634:47 CBC WITH MANUAL DIFF Comments: PATIENT WAS FASTINGPERFORMED BY: DarudarSaint Barnabas Behavioral Health CenterIzaydu5719 [facility] [id number] Information: [id number] (09007) Immature Grans (Abs) 0.0 {x10E3/uL} (Normal) Range: [...] 4.14-5.80 WBC 7.0 {x10E3/uL} (Normal) Range: 3.4-10.8 27-Ueh-892547:38 HgA1C , Office (32757) HgA1C , Office 6.2 % (Normal) Range: 4.6 - 7.1 24-Xtv-216919:38 Blood Glucose , Office (09735) Blood Glucose , Office 119 (Normal) 17-Nur-550187:28 HgA1C , Office (94255) HgA1C , Office 6.7 % (Normal) Range: 4.6 - 7.1 13-Wdg-824542:28 Blood Glucose , Office (41469) Blood Glucose , Office 131 (Normal) 10-Pqi-615639:08 MICROALBUMIN: CREATININE RATIO Comments: PATIENT WAS FASTINGPERFORMED BY: [facility]6370 [facility] [id number] (09104) AND (16595) Microalb/Creat Ratio 14.3 {mg/g_creat} (Normal) Range: 0.0-30.0 Microalbumin, Urine 24.5 ug/mL (Abnormal) Range: 0.0-17.0 Creatinine, Urine 171.3 mg/dL (Normal) Range: 22.0-328.0 :46 Microscopic Examination Comments: PATIENT NOT FASTINGPERFORMED BY: [facility]6370 [facility] [id number] Bacteria Few (Normal) Mucus Threads Present (Normal) Epithelial Cells (non renal) 0-10 {/hpf} (Normal) Range: 0 - 10 RBC 0-3 {/hpf} (Normal) Range: 0 - 3 WBC 0-5 {/hpf} (Normal) Range: 0 - 5 :46 TSH (44311) Comments: PATIENT NOT FASTINGPERFORMED BY: [facility]6370 [facility] [id number] TSH 2.720 {uIU/mL} (Normal) Range: 0.450-4.500 :46 URINALYSIS, W/ MICRO (40007) Comments: PATIENT NOT FASTINGPERFORMED BY: [facility]6370 [facility] [id number] Microscopic Examination See below: (Normal) Microscopic Examination MICRON (Normal) Comments: Microscopic follows if indicated. Nitrite, Urine Negative (Normal) Urobilinogen,Semi-Qn 1.0 mg/dL (Normal) Range: 0.0-1.9 Bilirubin Negative (Normal) Occult Blood Negative (Normal) Ketones Negative (Normal) Glucose Negative (Normal) Protein Negative (Normal) WBC Esterase Negative (Normal) Appearance Clear (Normal) Urine-Color Yellow (Normal) pH 6.0 (Normal) Range: 5.0-7.5 Specific [place] 1.015 (Normal) Range: 1.005-1.030 :46 MICROALBUMIN: CREATININE RATIO Comments: PATIENT NOT FASTINGPERFORMED BY: XpliantCoSaint Barnabas Behavioral Health CenterPdrqzd4201 [facility] [id number] (54136) AND (45255) Microalb/Creat Ratio 10.0 {mg/g_creat} (Normal) Range: 0.0-30.0 Microalbumin, Urine 12.6 ug/mL (Normal) Range: 0.0-17.0 Creatinine, Urine 125.8 mg/dL (Normal) Range: 22.0-328.0 80-Nnk-811924:46 METABOLIC PANEL, COMPREHENSIVE Comments: PATIENT NOT FASTINGPERFORMED BY: [facility] Zdggvn9494 [facility] [id number] (30719) ALT (SGPT) 18 [iU]/L (Normal) Range: 0-44 [...] Glucose, Serum 116 mg/dL (Abnormal) Range: 65-99 30-Pgc-292194:46 LIPID PANEL (90565) Comments: PATIENT NOT FASTINGPERFORMED BY: XpliantCoSaint Barnabas Behavioral Health CenterGnznjs8114 [facility] [id number] LDL/HDL Ratio 2.1 {ratio_units} (Normal) Range: 0.0-3.6 [...] DIFF Comments: PATIENT NOT FASTINGPERFORMED BY: [facility] Doukmh4628 [facility] [id number] Information: [id number] (59721) Immature Grans (Abs) 0.0 {x10E3/uL} (Normal) Range: [...] (Normal) Range: 4.0-10.5 :38 HgA1C , Office (12437) HgA1C , Office 6.9 % (Normal) Range: 4.6 - 7.1 :38 Blood Glucose , Office (98557) Blood Glucose , Office 124 (Normal) 21-Tkz-990082:08 HgA1C , Office (01830) HgA1C , Office 6.5 % (Normal) Range: 4.6 - 7.1 71-Sgh-34398:10 Blood Glucose , Office (26444) Blood Glucose , Office 129 (Normal) 96-Ykf-688910:08 LIPID PANEL (76142) Comments: PATIENT WAS FASTINGPERFORMED BY: [employer]70 [facility] [id number] LDL/HDL Ratio 2.2 {ratio_units} (Normal) Range: 0.0-3.6 LDL Cholesterol Calc 97 mg/dL (Normal) Range: 0-99 VLDL Cholesterol Bharat 28 mg/dL (Normal) Range: 5-40 HDL Cholesterol 45 mg/dL (Normal) Comments: According to ATP-III Guidelines, HDL-C >59 mg/dL is considered anegative risk factor for CHD. Triglycerides 140 mg/dL (Normal) Range: 0-149 Cholesterol, Total 170 mg/dL (Normal) Range: 100-199 79-Diw-953634:08 HEPATIC FUNCTION PANEL Comments: PATIENT WAS FASTINGPERFORMED BY: DarudarSaint Barnabas Behavioral Health CenterCpgtwh8466 [facility] [id number] Information: [id number] (26481) ALT (SGPT) 25 [iU]/L (Normal) Range: 0-55 [...] (Normal) Range: 6.0-8.5 :55 HgA1C , Office (91131) HgA1C , Office 6.9 % (Normal) Range: 4.6 - 7.1 :55 Blood Glucose , Office (84356) Blood Glucose , Office 126 (Normal) 33-Ewc-232562:07 Hemoglobin Glyclated (HGB Comments: PATIENT NOT FASTINGPERFORMED BY: [employer] [facility] [id number] Information: [id number] A1C) (73668) Hemoglobin A1c 6.8 % (Abnormal) Range: 4.8-5.6 Comments: . Increased risk for diabetes: 5.7 - 6.4 Diabetes: >6.4 Glycemic control for adults with diabetes: <7.0 :58 Microscopic Examination Comments: PATIENT WAS FASTINGPERFORMED BY: [employer] Fjmafn1832 [facility] [id number] Bacteria Few (Normal) Mucus Threads Present (Normal) Epithelial Cells (non renal) None seen {/hpf} (Normal) Range: 0 - 10 RBC 0-3 {/hpf} (Normal) Range: 0 - 3 WBC 0-5 {/hpf} (Normal) Range: 0 - 5 :58 PSA Total+% Free Comments: PATIENT WAS FASTINGPERFORMED BY: [employer] [facility] [id number] Information: [id number] % Free PSA 16.3 % (Normal) Comments: [...] Comments: Temo ECLIA methodology. .According to the [place] [employer], Serum PSA shoulddecrease and remain [...] WAR (Normal) Comments: PATIENT WAS FASTINGPERFORMED BY: Nano Think70 [facility] [id number] 3:58 Comments: Written Authorization Received.Authorization received from DR. STYLES [id number] by Machelle Trejo 04-Ans-729753:07 ASSAY, PSA, FREE (85850) Comments: PATIENT NOT FASTINGPERFORMED BY: [employer]6370 [employer] SystemsLifeBrite [facility] [id number] Information: [id number],2ND ORDER NO DRAW F EE % Free [...] Comments: Temo ECLIA methodology. .According to the [place] [employer], Serum PSA shoulddecrease and remain at undetectable levels after radicalprostatectomy. The AUA defines biochemical recurrence as an initialPSA value 0.2 ng/mL or greater followed by a subsequent confirmatoryPSA value 0.2 ng/mL or greater.Values obtained with d ifferent assay methods or kits cannot be usedinterchangeably. Results cannot be interpreted as absolute evidenceof the presence or absence of malignant disease. 2-Tor-065830:17 Bilirubin, Total/Direct, Serum Comments: PATIENT NOT FASTINGPERFORMED BY: [employer]6370 [employer] Control SystemsLifeBrite [facility] [id number] Bilirubin, Indirect 1.53 mg/dL (Abnormal) Range: 0.10-0.80 Bilirubin, Direct 0.37 mg/dL (Normal) Range: 0.00-0.40 Bilirubin, Total 1.9 mg/dL (Abnormal) Range: 0.0-1.2 6-Zcw-200000:17 Prostate-Specific Ag, Serum Comments: PATIENT NOT FASTINGPERFORMED BY: [employer]6370 [employer] Control SystemsLifeBrite [facility] [id number] Prostate Specific Ag, 11.5 ng/mL (Abnormal) Range: 0.0-4.0 Serum Comments: [employer] ECLIA methodology. .According to the [place] [employer], Serum PSA shoulddecrease and remain [...] Free Comments: PATIENT NOT FASTINGPERFORMED BY: TERRIE Darudar Xfszsh2064 [facility] [id number] % Free PSA 19.7 % (Normal) Comments: [...] Comments: Temo ECLIA methodology. .According to the [place] [employer], Serum PSA shoulddecrease and remain [...] SPRCS (Normal) Comments: PATIENT NOT FASTINGPERFORMED BY: Darudar Uhczdb7039 [facility] [id number] :17 Comments: This report has been generated by your request for additional testing.The additional request may have required some testing to be repeated.Because of analytic variability, the results may not correspond exactly to the previous report. Interpret these results appropriately. Written Authorization WAR (Normal) Comments: PATIENT NOT FASTINGPERFORMED BY: DarudarSaint Barnabas Behavioral Health CenterAkwhdd7951 [address] RoadDublin [place] [id number] :17 Comments: Written Authorization Received.Authorization received from VICKI STYLES DO [id number] by Candi Salazar :01 Microscopic Examination Comments: PATIENT WAS FASTINGPERFORMED BY: [facility] Ocalyf9459 [address] RoadDublin [place] [id number] Bacteria None seen (Normal) Mucus Threads Present (Normal) Epithelial Cells (non renal) None seen {/hpf} (Normal) Range: 0 - 10 RBC None seen {/hpf} (Normal) Range: 0 - 3 WBC 0-5 {/hpf} (Normal) Range: 0 - 5 :01 Vitamin D Hydroxy (01696) Comments: PATIENT WAS FASTINGPERFORMED BY: [facility] Vkzhpm3874 [address] RoadDublin [place] [id number] Vitamin D, 25-Hydroxy 17.2 ng/mL (Abnormal) Range: 30.0-100.0 Comments: Vitamin D deficiency has been defined by the [place] ofMedicine and an Endocrine Society practice guideline as alevel of serum 25-OH vitamin D less than 20 ng/mL (1,2).The Endocrine Society went on to further define vitamin Dinsufficiency as a level between 21 and 29 ng/mL (2).1. IOM ([place] of Medicine). 2010. Dietary reference intakes for calcium and D. [place]: The National Academies Press.2. Marcelle MF, Justin NC, Amira ELIAS, et al. Evaluation, treatment, and prevention of vitamin D deficiency: an Endocrine Society clinical practice guideline. JCEM. 2010; 96(7):1911-30. :01 PSA (PROSTATE SPECIFIC Comments: PATIENT WAS FASTINGPERFORMED BY: [facility] Zjyyru0034 [address] RoadDublin [place] [id number] ANTIGEN) (V76.44) Prostate Specific Ag, 7.6 ng/mL (Abnormal) Range: 0.0-4.0 Serum Comments: Temo ECLIA methodology. .According to the [place] [employer], Serum PSA shoulddecrease and remain at undetectable levels after radicalprostatectomy. The AUA defines biochemical recurrence as an initialPSA value 0.2 ng/mL or greater followed by a subsequent confirmatoryPSA value 0.2 ng/mL or greater.Values obtained with d ifferent assay methods or kits cannot be usedinterchangeably. Results cannot be interpreted as absolute evidenceof the presence or absence of malignant disease. TSH (07979) Comments: PATIENT WAS FASTINGPERFORMED BY: EvirxLifeBrite [facility] [id number] TSH 2.530 {uIU/mL} (Normal) Range: 0.450-4.500 URINALYSIS, W/ MICRO (97902) Comments: PATIENT WAS FASTINGPERFORMED BY: [employer] [facility] [id number] Microscopic Examination See below: (Normal) Microscopic Examination MICRON (Normal) Comments: Microscopic follows if indicated. Nitrite, Urine Negative (Normal) Urobilinogen,Semi-Qn 0.2 mg/dL (Normal) Range: 0.0-1.9 Bilirubin Negative (Normal) Occult Blood Negative (Normal) Ketones Negative (Normal) Glucose Negative (Normal) Protein Negative (Normal) WBC Esterase Negative (Normal) Appearance Clear (Normal) Urine-Color Yellow (Normal) pH 6.5 (Normal) Range: 5.0-7.5 Specific [place] 1.015 (Normal) Range: 1.005-1.030 MICROALBUMIN: CREATININE RATIO Comments: PATIENT WAS FASTINGPERFORMED BY: [employer]70 [facility] [id number] (22899) AND (05713) Microalb/Creat Ratio 30.3 {mg/g_creat} (Abnormal) Range: 0.0-30.0 Microalbumin, Urine 33.5 ug/mL (Abnormal) Range: 0.0-17.0 Creatinine, Urine 110.7 mg/dL (Normal) Range: 22.0-328.0 : METABOLIC PANEL, COMPREHENSIVE Comments: PATIENT WAS FASTINGPERFORMED BY: [employer] MadisonJingle NetworksLifeBrite [facility] [id number] (29916) ALT (SGPT) 23 [iU]/L (Normal) Range: 0-55 [...] Glucose, Serum 133 mg/dL (Abnormal) Range: 65-99 96-Meg-58837:01 LIPID PANEL (54314) Comments: PATIENT WAS FASTINGPERFORMED BY: LabCoSaint Barnabas Behavioral Health CenterQibjti9235 [facility] [id number] LDL/HDL Ratio 2.5 {ratio_units} (Normal) Range: 0.0-3.6 LDL Cholesterol Calc 103 mg/dL (Abnormal) Range: 0-99 VLDL Cholesterol Bharat 40 mg/dL (Normal) Range: 5-40 HDL Cholesterol 42 mg/dL (Normal) Comments: According to ATP-III Guidelines, HDL-C >59 mg/dL is considered anegative risk factor for CHD. Triglycerides 201 mg/dL (Abnormal) Range: 0-149 Cholesterol, Total 185 mg/dL (Normal) Range: 100-199 80-Hjq-87152:01 CBC WITH MANUAL DIFF Comments: PATIENT WAS FASTINGPERFORMED BY: [facility] [facility] [id number] Information: [id number] (35729) Immature Grans (Abs) 0.0 {x10E3/uL} (Normal) Range: [...] (Normal) Range: 4.0-10.5 :24 HgA1C , Office (78574) HgA1C , Office 6.7 % (Normal) Range: 4.6 - 7.1 :24 Blood Glucose , Office (54268) Blood Glucose , Office 131 (Normal) :50 HgA1C , Office (91324) HgA1C , Office 6.3 % (Normal) Range: 4.6 - 7.1 :50 Blood Glucose , Office (77800) Blood Glucose , Office 116 (Normal) :05 HgA1C , Office (85926) HgA1C , Office 6.7 % (Normal) Range: 4.6 - 7.1 :58 URINALYSIS, W/ MICRO (47142) Comments: PATIENT WAS FASTINGPERFORMED BY: [employer] [facility] [id number] Microscopic Examination See below: (Normal) Microscopic Examination MICRON (Normal) Comments: Microscopic follows if indicated. Nitrite, Urine Negative (Normal) Urobilinogen,Semi-Qn 0.2 mg/dL (Normal) Range: 0.0-1.9 Bilirubin Negative (Normal) Occult Blood Negative (Normal) Ketones Negative (Normal) Glucose Negative (Normal) Protein Negative (Normal) WBC Esterase Negative (Normal) Appearance Clear (Normal) Urine-Color Yellow (Normal) pH 6.5 (Normal) Range: 5.0-7.5 Specific [place] 1.015 (Normal) Range: 1.005-1.030 :58 METABOLIC PANEL, COMPREHENSIVE Comments: PATIENT WAS FASTINGPERFORMED BY: [employer] Qxxfxq1524 [facility] [id number] (71895) ALT (SGPT) 23 [iU]/L (Normal) Range: 0-55 [...] Glucose, Serum 126 mg/dL (Abnormal) Range: 65-99 43-Oji-028110:58 CBC WITH MANUAL DIFF Comments: PATIENT WAS FASTINGPERFORMED BY: LabCoSaint Barnabas Behavioral Health CenterAwcnnt3198 [facility] [id number] Information: [id number] (81015) Immature Grans (Abs) 0.0 {x10E3/uL} (Normal) Range: [...] 4.14-5.80 WBC 8.3 {x10E3/uL} (Normal) Range: 4.0-10.5 38-Fuc-917074:58 LIPID PANEL (48116) Comments: PATIENT WAS FASTINGPERFORMED BY: [employer] [facility] [id number] LDL/HDL Ratio 2.7 {ratio_units} (Normal) Range: 0.0-3.6 LDL Cholesterol Calc 116 mg/dL (Abnormal) Range: 0-99 VLDL Cholesterol Bharat 45 mg/dL (Abnormal) Range: 5-40 HDL Cholesterol 43 mg/dL (Normal) Comments: According to ATP-III Guidelines, HDL-C >59 mg/dL is considered anegative risk factor for CHD. Triglycerides 225 mg/dL (Abnormal) Range: 0-149 Cholesterol, Total 204 mg/dL (Abnormal) Range: 100-199 42-Dfi-436171:58 MICROALBUMIN: CREATININE RATIO Comments: PATIENT WAS FASTINGPERFORMED BY: Xifra BusinessSaint Barnabas Behavioral Health CenterOpwuhz8443 [facility] [id number] (05653) AND (77663) Microalb/Creat Ratio 16.0 {mg/g_creat} (Normal) Range: 0.0-30.0 Microalbumin, Urine 22.3 ug/mL (Abnormal) Range: 0.0-17.0 Creatinine, Urine 139.1 mg/dL (Normal) Range: 22.0-328.0 13-Jwd-415502:58 TSH (84982) Comments: PATIENT WAS FASTINGPERFORMED BY: LabCo Ptsofx3727 [facility] [id number] TSH 3.200 {uIU/mL} (Normal) Range: 0.450-4.500 :44 TSH (09864) Comments: PATIENT WAS FASTINGPERFORMED BY: [facility]6[address] [facility] [id number] TSH 2.540 {uIU/mL} (Normal) Range: 0.450-4.500 :44 MICROALBUMIN: CREATININE RATIO Comments: PATIENT WAS FASTINGPERFORMED BY: [facility]University [facility]6[address] [facility] [id number] (53167) AND (14743) Microalb/Creat Ratio 22.8 {mg/g_creat} (Normal) Range: 0.0-30.0 Microalbumin, Urine 47.4 ug/mL (Abnormal) Range: 0.0-17.0 Creatinine, Urine 207.7 mg/dL (Normal) Range: 22.0-328.0 :44 CBC with manual diff Comments: PATIENT WAS FASTINGPERFORMED BY: [facility] [facility] [id number] Information: ADD [id number] AND DRAW FEE [id number] (27803) Immature Grans (Abs) 0.0 {x10E3/uL} (Normal) Range: [...] 4.10-5.60 WBC 6.9 {x10E3/uL} (Normal) Range: 4.0-10.5 01-Are-61735:44 Metabolic Panel, Comprehensive Comments: PATIENT WAS FASTINGPERFORMED BY: LabCoSaint Barnabas Behavioral Health CenterKhkdji5850 [facility] [id number] (59953) ALT (SGPT) 22 [iU]/L (Normal) Range: 0-55 [...] mg/dL (Abnormal) Range: 65-99 :44 Lipid Panel (15797) Comments: PATIENT WAS FASTINGPERFORMED BY: [employer] [id number]; appt 11/26/10 LDL Cholesterol Calc 109 mg/dL (Abnormal) Range: 0-99 LDL/HDL Ratio 2.4 {ratio_units} (Normal) Range: 0.0-3.6 HDL Cholesterol 46 mg/dL (Normal) Comments: According to ATP-III Guidelines, HDL-C >59 mg/dL is considered anegative risk factor for CHD. VLDL Cholesterol Bharat 37 mg/dL (Normal) Range: 5-40 Triglycerides 183 mg/dL (Abnormal) Range: 0-149 Cholesterol, Total 192 mg/dL (Normal) Range: 100-199 31-Vol-245267:56 Vitamin D Hydroxy Comments: PATIENT NOT FASTINGPERFORMED BY: [employer] LabPointsHound6370 [facility] [id number] Information: [id number] (98720) Vitamin D, 25-Hydroxy 19.4 ng/mL (Abnormal) Range: 32.0-100.0 Comments: Recent studies consider the lower limit of 32.0 ng/mL to be athreshold for optimal health.Ashu JIMENEZ. J Nutr. 2004;135(2):317-22. :03 HEPATIC FUNCTION PANEL Comments: PATIENT WAS FASTINGPERFORMED BY: DarudarSaint Barnabas Behavioral Health CenterJroziu7891 [facility] [id number] Information: [id number] (46172) Alkaline Phosphatase, S 72 [iU]/L (Normal) Range: 25-160 ALT (SGPT) 24 [iU]/L (Normal) Range: 0-55 AST (SGOT) 21 [iU]/L (Normal) Range: 0-40 Bilirubin, Direct 0.38 mg/dL (Normal) Range: 0.00-0.40 Albumin, Serum 4.0 g/dL (Normal) Range: 3.6-4.8 Bilirubin, Total 1.6 mg/dL (Abnormal) Range: 0.0-1.2 Protein, Total, Serum 6.9 g/dL (Normal) Range: 6.0-8.5 :03 LIPID PANEL (50652) Comments: PATIENT WAS FASTINGPERFORMED BY: Darudar Ezwffg8725 [facility] [id number] LDL/HDL Ratio 1.7 {ratio_units} (Normal) Range: 0.0-3.6 [...] MANUAL DIFF Comments: PATIENT NOT FASTINGPERFORMED BY: DarudarSaint Barnabas Behavioral Health CenterZiesem3881 [facility] [id number] Information: [id number] (39047) Immature Grans (Abs) 0.0 {x10E3/uL} (Normal) Range: [...] 9.0 {x10E3/uL} (Normal) Range: 4.0-10.5 :55 Magnesium (04145) Comments: PATIENT NOT FASTINGPERFORMED BY: [facility] Bjnnww0385 [facility] [id number] Magnesium, Serum 2.1 mg/dL (Normal) Range: 1.6-2.6 :55 Metabolic Panel, Basic (28053) Comments: PATIENT NOT FASTINGPERFORMED BY: [facility] Gdpshg4680 [facility] [id number] Calcium, Serum 9.3 mg/dL (Normal) Range: 8.6-10.2 [...] Microscopic Examination Comments: PATIENT WAS FASTINGPERFORMED BY: [facility] Innov[facility] TechnologiesFirstHealth [id number] Bacteria None seen (Normal) Cast Type Hyaline casts (Normal) Casts Present {/lpf} (Abnormal) Epithelial Cells (non renal) 0-10 {/hpf} (Normal) Range: 0 - 10 Mucus Threads Present (Normal) RBC 0-3 {/hpf} (Normal) Range: 0 - 3 WBC 0-5 {/hpf} (Normal) Range: 0 - 5 :42 TSH (54864) Comments: PATIENT WAS FASTINGPERFORMED BY: [employer] [facility] [id number] TSH 3.120 {uIU/mL} (Normal) Range: 0.450-4.500 :42 URINALYSIS, W/ MICRO (94500) Comments: PATIENT WAS FASTINGPERFORMED BY: [facility] TechnologiesFirstHealth [id number] Microscopic Examination See below: (Normal) Bilirubin Negative (Normal) Glucose Negative (Normal) Ketones Negative (Normal) Nitrite, Urine Negative (Normal) Occult Blood Negative (Normal) Urobilinogen,Semi-Qn 0.2 mg/dL (Normal) Range: 0.0-1.9 Appearance Clear (Normal) pH 6.0 (Normal) Range: 5.0-7.5 Protein Negative (Normal) Urine-Color Yellow (Normal) WBC Esterase Trace (Abnormal) Specific [place] 1.020 (Normal) Range: 1.005-1.030 :42 MICROALBUMIN: CREATININE RATIO Comments: PATIENT WAS FASTINGPERFORMED BY: DarudarSaint Barnabas Behavioral Health CenterLtmnbw5067 [facility] [id number] (64543) AND (07569) Microalb/Creat Ratio 14.6 {mg/g_creat} (Normal) Range: 0.0-30.0 Microalbumin, Urine 26.0 ug/mL (Abnormal) Range: 0.0-17.0 Creatinine, Urine 178.3 mg/dL (Normal) Range: 22.0-328.0 :42 METABOLIC PANEL, COMPREHENSIVE Comments: PATIENT WAS FASTINGPERFORMED BY: [employer] Ccizso5429 [facility] [id number] (95506) Alkaline Phosphatase, S 68 [iU]/L (Normal) Range: [...] mg/dL (Abnormal) Range: 65-99 :42 LIPID PANEL (03913) Comments: PATIENT WAS FASTINGPERFORMED BY: [employer] [facility] [id number] LDL/HDL Ratio 2.5 {ratio_units} (Normal) Range: 0.0-3.6 [...] MANUAL DIFF Comments: PATIENT WAS FASTINGPERFORMED BY: [employer]6370 [facility] [id number] Information: ADD [id number] AND DRAW FEE [id number] (79528) Immature Grans (Abs) 0.0 {x10E3/uL} (Normal) Range: [...] 4.10-5.60 WBC 9.2 {x10E3/uL} (Normal) Range: 4.0-10.5 7-Hgc-489245:04 KNEE,4 OR MORE VIEWS (MT) Radiology See Note Comments: Exam Number: [id number] LINICAL:69-year-old man with pain in the left [...] CHOL 194 mg/dL (Normal) Comments: <200 mg/dL Bngutepqj937-956 mg/dL Borderline>240 mg/dL High Risk :32 PSA, [...] CHOL 157 mg/dL (Normal) Comments: <200 mg/dL Rmeqcziqa733-016 mg/dL Borderline>240 mg/dL High Risk :54 MICROALB:CRE UR MALB:CREAT 10.3 {mg/g_CRE} (Normal) MICROALBUMIN,UR 19.7 mg/L (Normal) UR CREAT 189.9 mg/dL (Normal) :54 TSH 2.03 {uIU/mL} (Normal) Range: 0.358-3.74 :57 WRIST,MIN 3 VIEWS Radiology Report See Note (Normal) Comments: Exam Number: [id number] LEFT HAND Three views of the left hand were obtained. There is good alignment. No acute abnormality is seen. LEFT WRIST Three views were obtained. There is good ali gnment. No significantabnormality is seen. Reported By: SHAHAB CARLOS :56 CHEST, PA AND LATERAL Radiology Report See Note (Normal) Comments: Exam Number: [id number] CHEST, PA AND LATERAL PA and lateral [...] Report See Note (Normal) Comments: Exam Number: [id number] LEFT HAND Three views of the left [...] was performed using the TPSA method for [employer] chemistry system.Values obtained with different assay methods cannot be usedinterchangably.When changing PSA assays in the course of monito ring apatient, additional sequential testing should be carriedout to confirm baseline values. :32 TSH 1.81 {uIU/mL} (Normal) Range: 0.34-4.82 39-Jyy-967954:46 Vitamin D Hydroxy (05653) Comments: PATIENT NOT FASTINGClinical Information: ADD DRAW FEE [id number] ADD [id number] PERFORMED BY: [employer] [id number] Vitamin D, 25-Hydroxy 56.3 ng/mL (Normal) Range: 32.0-100.0 Comments: Recent studies consider the lower limit of 32.0 ng/mL to be athreshold for optimal health.Ashu JIMENEZ. J Nutr. 2004;135(2):317-22. 03-Zdt-927984:46 VITAMIN D, 1, 25-DIHYDROXY Comments: PATIENT NOT FASTINGPERFORMED BY: [employer] [facility] [address] [id number] (72846) Vitamin D, 1,25 Dihydroxy 31.0 pg/mL (Normal) Range: 15.9-55.6 79-Plt-481975:28 CBCD,SMEAR DIFF Comments: GETS LIPID,LIVER,CBCMD,MICROAB.JOANNE VÁZQUEZ GETS [...] 47-70 WBC 7.3 K/mm3 (Normal) Range: 4.4-11.0 15-Jxw-048641:28 COMP METABOLIC Comments: GETS LIPID,LIVER,CBCMD,MICROAB.JOANNE VÁZQUEZ GETS [...] :28 PHOS 3.2 mg/dL (Normal) Comments: GETS LIPID,LIVER,CBCMD,MICROAB.JAZMIN KATHIE GETS CMP,PHOS,MG,VITD,CBC, Range: 2.5-4.9 :28 VIT D,25 81333 29.9 ng/mL (Abnormal) Comments: GETS LIPID,LIVER,CBCMD,MICROAB.JOANNE VÁZQUEZ GETS CMP,PHOS,MG,VITD,CBC, Range: 32.0-100.0 Comments: Recent studies consider the lower limit of 32.0 ng/mL to binta threshold for optimal health.Ashu JIMENEZ. J Nutr. 2004;135(2):317-22.Performed At: [facility] [place], [place] [id number] 54-Lqw-777223:57 VITAMIN D, 1, 25-DIHYDROXY Comments: PATIENT NOT FASTINGClinical Information: ADD DRAW FEE [id number] ADD J 42281 PERFORMED BY: [facility] [address] [id number] (34751) Vitamin D, 1,25 Dihydroxy 38.4 pg/mL (Normal) Range: 15.9-55.6 60-Hwr-604647:30 LIPID CHOL 176 mg/dL (Normal) Comments: <200 [...] mg/dL VLDL 41 mg/dL (Abnormal) Range: 5-40 88-Ren-669108:30 LIVER ALB 3.7 g/dL (Normal) Range: 3.4-5.0 ALK P 57 U/L (Normal) Range: 50-136 ALT 41 U/L (Normal) Range: 30-65 AST 23 U/L (Normal) Range: 15-37 D BILI 0.16 mg/dL (Normal) Range: 0.00-0.30 T BILI 1.63 mg/dL (Abnormal) Range: 0.00-1.00 T PROT 6.9 g/dL (Normal) Range: 6.4-8.2 44-Mks-32452:46 CHEST, PA AND LATERAL Radiology Report See Note (Normal) Comments: Exam Number: [id number] PA AND LATERAL CHEST CLINICAL STATEMENTCough for [...] 6.4-8.2 :34 MICROALBUMIN,UR 14.3 mg/L (Normal) :34 PTH,[id number] Comments: PLASMA ALDOSTERONE PTH,Intact 63 pg/mL (Normal) Range: 12-65 Comments: Performed At: [facility] [address] [id number] At: [place] [id number] [place], [place] [id number] :34 RENIN,PL 2006 0.38 {ng/mL/hr} Comments: PLASMA [...] {uIU/mL} (Normal) Range: 0.34-4.82 :34 VIT D,25 08259 20.2 ng/mL (Abnormal) Comments: PLASMA ALDOSTERONE Range: [...] was performed using the TPSA method for theUniversity [facility] chemistry system.Values obtained with different assay [...] 3.5-5.1 NA 137 mmol/L (Normal) Range: 136-145 31-Idv-079549:14 PSA [id number] COMMENT Comment (Normal) Comments: The percent free PSA is performed on a reflex basis onlywhen the total PSA is between 4.0 and 10.0 ng/mL.Performed At: [facility] [place], [place] [id number] At: [place] [address] [place], [place] [id number] PSA, FREE 0.77 ng/mL (Normal) PSA, FREE [...] (Abnormal) Range: 0.0-4.0 Comments: Alex (formerly Gabrielle) FORMERLY [facility], 1928–1983 methodology Plan of Care Name Dates Details [...] kidney disease Elevated parathyroid hormone : Reviewed Shoe Sticks Repairer Letter Indication: Elevated parathyroid hormone Elevated parathyroid [...] disease Coronary artery disease, occlusive : Reviewed Sh[employer] Sticks Repairer Letter Indication: Coronary artery disease, occlusive Coronary [...] occlusive Coronary artery disease, occlusive : Reviewed Sh[employer] Repairer Letter Indication: Coronary artery disease, occlusive Malignant [...] in both knees, unspecified chronicity : Reviewed [employer] Repairer Letter Indication: Pain in both knees, unspecified [...] hyperlipidemia Coronary artery disease, occlusive : Reviewed [employer] Repairer Letter Indication: Coronary artery disease, occlusive Malignant [...] insulin Coronary artery disease, occlusive : Reviewed Shoe Sticks Repairer Letter Indication: Coronary artery disease, occlusive Malignant [...] disease Coronary artery disease, occlusive : Reviewed Shoe Sticks Repairer Letter Indication: Coronary artery disease, occlusive Controlled [...] insulin Atrial fibrillation, unspecified type : Reviewed Sh[employer] Sticks Repairer Letter Indication: Atrial fibrillation, unspecified type Nonsmoker [...] chronic diastolic congestive heart failure : Reviewed Sh[employer]icks Repairer Letter Indication: Acute on chronic diastolic congestive heart failure Fluid overload : Reviewed Lab Indication: Fluid overload Fluid overload : Reviewed Diagnostic Tests Indication: Fluid overload Atrial fibrillation, unspecified type : Reviewed Sh[employer]icks Repairer Letter Indication: Atrial fibrillation, unspecified type Hypertensive [...] on chronic systolic heart failure : Reviewed Shoe [employer]icks Repairer Letter Indication: Acute on chronic systolic heart failure Bilateral edema of lower extremity : Reviewed Lab Indication: Bilateral edema of lower extremity Acute on chronic systolic heart failure : Reviewed Sh[employer] Repairer Letter Indication: Acute on chronic systolic heart [...] of breath on exertion Coronary 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 : Reviewed Sh[employer] Sticks Repairer Letter Indication: 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 : Reviewed Diagnostic Tests Indication: Coronary 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 Acute systolic congestive heart failure : Follow up in 3 weeks- fu on chf and edema and std process Indication: Acute systolic congestive heart failure Bilateral edema of lower extremity : Follow up in wednesday - yessenia Indication: Bilateral edema of lower extremity Coronary 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 : Eprescribed prescriptions (G8553) Indication: Coronary 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 Acute systolic congestive heart failure : Reviewed Diagnostic Tests Indication: Acute systolic congestive heart failure Acute systolic congestive heart failure : Continue Current Prescription(s) Indication: Acute systolic congestive heart failure Acute systolic congestive heart failure : Reviewed Shoe Sticks Repairer Letter Indication: Acute systolic congestive heart failure Shortness of breath on exertion : Follow up wednesday for yessenia on lower extrem edema- and sob & lab Indication: Shortness of breath on exertion Atherosclerosis of [place] coronary artery without angina pectoris, unspecified whether [place] or transplanted heart : Reviewed Shoe Sticks Repairer Letter Indication: Atherosclerosis of [place] coronary artery without angina pectoris, unspecified whether [place] or transplanted heart Mixed hyperlipidemia : Cholesterol [...] Cholesterol mgmt Indication: Hyperlipidemia Coronary 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 : Reviewed Shoe Sticks Repairer Letter Indication: Coronary 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 Diabetes mellitus type 2, uncontrolled, [...] annual wellness exam Elevated PSA : Reviewed Shoe Sticks Repairer Letter: milagro neal Indication: Elevated PSA 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 : Continue Current Prescription(s) 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 : Reviewed Lab Indication: Coronary 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 Hyperlipidemia : Cholesterol mgmt Indication: [...] and congestive heart failure Coronary 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 : Reviewed Shoe Sticks Repairer Letter Indication: Coronary 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 Diabetes mellitus without complication (Renamed from Diabetes mellitus with no complication) : Diabetes Mellitus: Type 2 *: diabetes type 2 Indication: Diabetes mellitus without complication (Renamed from Diabetes mellitus with no complication) CVA (cerebral infarction) : Reviewed Sh[employer] Sticks Repairer Letter: neuro wants to do a brain [...] brain MRI Abnormal brain MRI : Reviewed Shoe Sticks Repairer Letter Indication: Abnormal brain MRI Malignant hypertension [...] Vitamin D deficiency, unspecified Coronary 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 : Reviewed Shoe Sticks Repairer Letter Indication: Coronary 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 Hyperlipidemia : Cholesterol mgmt Indication: [...] mellitus with no complication) Coronary 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 : Reviewed Shoe Sticks Repairer Letter Indication: Coronary 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 Diabetes mellitus type 2, uncontrolled, [...] mellitus with no complication) Coronary 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 : Reviewed Shoe Sticks Repairer Letter Indication: Coronary 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 Malignant hypertension with renal disease [...] 2, uncontrolled, without complications Coronary 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 : Reviewed Shoe Sticks Repairer Letter Indication: Coronary 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 Hyperlipidemia : Cholesterol mgmt Indication: [...] with renal disease Elevated PSA : Reviewed Shoe Sticks Repairer Letter Indication: Elevated PSA Vitamin D deficiency, [...] mgmt Indication: Mixed hyperlipidemia Coronary 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 : Reviewed Shoe Sticks Repairer Letter Indication: Coronary 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 Hypertensive heart disease : Diet, [...] mgmt Indication: Mixed hyperlipidemia Coronary 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 : Reviewed Shoe Sticks Repairer Letter Indication: Coronary 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 Hypertensive heart disease : HTN/CAD [...] Wt loss Indication: Obesity, morbid Atherosclerosis of [place] coronary artery without angina pectoris, unspecified whether [place] or transplanted heart : Reviewed Shoe Sticks Repairer Letter Indication: Atherosclerosis of [place] coronary artery without angina pectoris, unspecified whether [place] or transplanted heart Hypertensive heart disease : [...] Nonprescription Treatment Indication: Hyperlipidemia Coronary 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 : Reviewed Shoe Sticks Repairer Letter Indication: Coronary 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 Hypertensive heart disease : Diet, [...] of breath at rest Coronary 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 : Reviewed Shoe Sticks Repairer Letter Indication: Coronary 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 Hypertensive heart disease : Diet, [...] Side Effects Indication: Mixed hyperlipidemia Atherosclerosis of [place] coronary artery without angina pectoris, unspecified whether [place] or transplanted heart : Reviewed Shoe Sticks Repairer Letter Indication: Atherosclerosis of [place] coronary artery without angina pectoris, unspecified whether [place] or transplanted heart Hypertensive heart disease : [...] obstructive pulmonary disease Elevated PSA : Reviewed Shoe Sticks Repairer Letter prostate bx negative Indication: Elevated PSA Hypertensive heart disease : Reviewed Shoe Sticks Repairer Letter Indication: Hypertensive heart disease Hyperlipidemia : [...] - Strool Based DNA Test, CRC SCREEN (03972)Indication: Encounter for screening for malignant neoplasm of colon (Renamed from Special screening for malignant neoplasms, colon) On: 34-Eyu-107717:47 Request TSH (60925)Indication: 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, without long-term current use of insulin On: 7-Omk-416400:20 Request URINALYSIS, W/ MICRO (27571)Indication: 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 On: 0-Ghd-479339:19 Request MICROALBUMIN: CREATININE RATIO (97382) AND (36741)Indication: 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 On: 9-Fzr-540826:19 Request METABOLIC PANEL, COMPREHENSIVE (12976)Indication: 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 On: 4-Vhr-624282:19 Request LIPID PANEL (24671)Indication: 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 On: 6-Ner-627049:19 Request CBC with auto diff (46278)Indication: 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 On: 4-Pfy-946771:19 Request CALCIFEDIOL (64804)Indication: Vitamin D deficiency On: 3-Zbu-272020:19 Request CALCIFEDIOL (44988)Indication: Vitamin D deficiency On: 49-Kmx-867370:51 Request PARATHORMONE (52500)Indication: Elevated parathyroid hormone On: 29-Jmu-129723:51 Request URINALYSIS, W/ MICRO (32018)Indication: Diabetes mellitus without complication (Renamed from Diabetes mellitus with no complication) On: 6-Yjc-456709:17 Request MICROALBUMIN: CREATININE RATIO (81874) AND (88719)Indication: Diabetes mellitus without complication (Renamed from Diabetes mellitus with no complication) On: 8-Qmj-666635:17 Request CALCIFIDIOL (87808) VIT D 25Indication: Vitamin D deficiency, unspecified On: 77-Qua-017864:39 Request TSH (66962)Indication: 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, without long-term current use of insulin On: :39 Request URINALYSIS, W/ MICRO (71591)Indication: 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, without long-term current use of insulin On: :39 Request MICROALBUMIN: CREATININE RATIO (21945) AND (86861)Indication: 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, without long-term current use of insulin On: :39 Request METABOLIC PANEL, COMPREHENSIVE ([id number])Indication: 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, without long-term current use of insulin On: :39 Request LIPID PANEL (98088)Indication: 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, without long-term current use of insulin On: : Request CBC W/AUTO DIFF WBC ([id number])Indication: 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, without long-term current use of insulin On: :39 Request TSH ([id number])Indication: Diabetes mellitus type 2, uncontrolled, without complications On: 66-Qfr-383429:04 Request URINALYSIS, W/ MICRO ([id number])Indication: Diabetes mellitus type 2, uncontrolled, without complications On: 39-Iqe-457540:04 Request MICROALBUMIN: CREATININE RATIO ([id number]) AND ([id number])Indication: Diabetes mellitus type 2, uncontrolled, without complications On: 59-Qmb-953060:04 Request METABOLIC PANEL, COMPREHENSIVE (30074)Indication: Diabetes mellitus type 2, uncontrolled, without complications On: 48-Ces-426320:04 Request LIPID PANEL ([id number])Indication: Mixed hyperlipidemia On: : Request CBC W/AUTO DIFF WBC (34086)Indication: Diabetes mellitus type 2, uncontrolled, without complications On: 46-Sgr-282399:03 Request FECAL OCCULT- Tubes sent home ([id number])Indication: Encounter for screening for malignant neoplasm of colon (Renamed from Special screening for malignant neoplasms, colon) On: 1-Vrj-592451:21 Request Metabolic Panel, Basic (22199)Indication: Renal insufficiency On: 6-Nnv-327901:41 Request Comments: wednesday morning Metabolic Panel, Basic (59862)Indication: Renal insufficiency On: 05-Jul-2015 Request Metabolic Panel, Basic (35243)Indication: Renal insufficiency On: :41 Request BASIC METABOLIC w/Ionized Ca++ (08570)Indication: Short of breath on exertion On: :31 Request METABOLIC PANEL, BASIC (50167)Indication: Abnormal blood chemistry On: :23 Request Metabolic Panel, Basic (50058)Indication: Acute systolic congestive heart failure On: :54 Request Metabolic Panel, Basic (08957)Indication: Atrial fibrillation, unspecified type On: :04 Request ASSAY, NATIURETIC PEPTIDE (22357)Indication: Atrial fibrillation, unspecified type On: :04 Request ASSAY, NATIURETIC PEPTIDE (68088)Indication: Bilateral edema of lower extremity On: :13 Request ASSAY, NATIURETIC PEPTIDE (31021)Indication: Acute systolic congestive heart failure On: 35-Fwo-732380:39 Request Comments: re check in 1-2 weeks PSA (Medicare - G0103) (43370)Indication: Elevated PSA On: 14-Fbi-628237:17 Request TSH ([id number])Indication: Diabetes mellitus type 2, uncontrolled, without complications On: 26-Elk-611333:16 Request URINALYSIS, W/ MICRO (57537)Indication: Diabetes mellitus type 2, uncontrolled, without complications On: 91-Jre-886776:16 Request MICROALBUMIN: CREATININE RATIO (39649) AND ([id number])Indication: Diabetes mellitus type 2, uncontrolled, without complications On: 15-Bon-709731:16 Request METABOLIC PANEL, COMPREHENSIVE (37648)Indication: Diabetes mellitus type 2, uncontrolled, without complications On: 71-Knk-591153:16 Request LIPID PANEL (05932)Indication: Diabetes mellitus type 2, uncontrolled, without complications On: 49-Wys-333566:16 Request CBC with auto diff (75497)Indication: Diabetes mellitus type 2, uncontrolled, without complications On: 88-Lny-577566:16 Request CALCIFIDIOL (84872) VIT D 25Indication: Vitamin D deficiency, unspecified On: 78-Zsd-198563:16 Request Vitamin D Hydroxy (69951)Indication: Vitamin D deficiency, unspecified On: 5-Xxo-935442:05 Request URINALYSIS, W/ MICRO (21870)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 On: 9-Vef-325197:04 Request MICROALBUMIN: CREATININE RATIO ([id number]) AND ([id number])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 On: 5-Mtb-423099:04 Request METABOLIC PANEL, COMPREHENSIVE (28058)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 On: 6-Gxq-219187:04 Request LIPID PANEL ([id number])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 On: : Request CBC WITH MANUAL DIFF ([id number])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 On: 5-Jpg-619987:04 Request FECAL OCCULT- Tubes sent home ([id number])Indication: Encounter for routine history and physical exam for male On: 77-Ysy-981813:09 Request CALCIFIDIOL (75823) VIT D 25Indication: Vitamin D deficiency, unspecified On: 8-Iyv-346106:11 Request PSA TOTAL +%FREE 637163 ([id number])Indication: Elevated PSA On: 1-Egh-609927:14 Request BILIRUBIN, TOTAL & DIRECT (71350)Indication: Other specified abnormal findings of blood chemistry On: 1-Ilw-465992:14 Request Glucose, PP/2 Hour (07472)Indication: Other specified abnormal findings of blood chemistry On: 43-Dbg-007369:03 Request CALCIFIDIOL (85907) VIT D 25Indication: Vitamin D deficiency, unspecified On: 20-Aqo-939592:31 Request TSH ([id number])Indication: Hypertensive heart disease On: :28 Request URINALYSIS, W/ MICRO ([id number])Indication: Hypertensive heart disease On: :28 Request MICROALBUMIN: CREATININE RATIO ([id number]) AND ([id number])Indication: Hypertensive heart disease On: :28 Request METABOLIC PANEL, COMPREHENSIVE (01515)Indication: Hypertensive heart disease On: :28 Request CBC WITH MANUAL DIFF ([id number])Indication: Hypertensive heart disease On: :28 Request PSA (PROSTATE SPECIFIC ANTIGEN) (V76.44)Indication: Elevated PSA On: 75-Gce-486411:25 Request LIPID PANEL ([id number])Indication: Hyperlipidemia On: 02-Pdc-741840:23 Request Comments: do for next appt- 4mo Metabolic Panel, Basic (83772)Indication: Pain of hand, unspecified laterality On: 14-Qiw-411972:42 Request URIC ACID BLOOD ([id number])Indication: Pain of hand, unspecified laterality On: 24-Ozm-252425:42 Request C-REACTIVE PROTEIN (81466)Indication: Pain of hand, unspecified laterality On: 68-Bgl-833180:52 Request SED RATE ERYTHROCYTE (65573)Indication: Pain of hand, unspecified laterality On: 01-Oyr-991860:52 Request CBC WITH MANUAL DIFF ([id number])Indication: Pain of hand, unspecified laterality On: 48-Ywp-218259:51 Request Magnesium (89631)Indication: Hypokalemia On: 51-Cgw-676466:25 Request Potassium Serum (22626)Indication: Hypokalemia On: 12-Euw-814594:25 Request Comments: do in 2 weeks Vitamin D Hydroxy (58974)Indication: Vitamin D deficiency, unspecified On: 84-Brd-962929:23 Request Glucose, PP/2 Hour (05436)Indication: Other specified abnormal findings of blood chemistry On: 23-Sxz-445227:18 Request LIPID PANEL ([id number])Indication: Hyperlipidemia On: 51-Cpj-713031:45 Request Comments: DO IN 3 MONTHS HEPATIC FUNCTION PANEL (22091)Indication: Hyperlipidemia On: 56-Egp-853580:45 Request HEPATIC FUNCTION PANEL (55558)Indication: Hyperlipidemia On: 67-Xzi-115617:54 Request LIPID PANEL (40348)Indication: Hyperlipidemia On: 10-Hpr-050819:54 Request Comments: do in 3 months PARATHORMONE (79509)Indication: Vitamin D deficiency, unspecified On: 66-Ghb-209983:45 Request CALCIUM SERUM (14484)Indication: Vitamin D deficiency, unspecified On: 95-Pht-971144:45 Request VITAMIN D, 1, 25-DIHYDROXY (58522)Indication: Vitamin D deficiency, unspecified On: 47-Ttb-806861:45 Request VITAMIN D, 25-DIHYDROXY ([id number])Indication: Vitamin D deficiency, unspecified On: 50-Vyh-527481:45 Request LIPID PANEL ([id number])Indication: Hyperlipidemia On: 21-Hgq-828624:44 Request Planned Procedures INTENSIVE BEHAVIORAL THERAPY TO On: 15-Nov-2017 Intent REDUCE CARDIOVASCULAR DISEASE RISK, INDIVIDUAL, MKPL-OG-TEHT, ANNUAL, 15 MINUTES (G0446)By: Vicki Styles DO, DO, Kathleen [id number]-UPHO BEHAVIORAL COUNSELING On: 15-Nov-2017 Intent FOR OBESITY, 15 MINUTES (G0447)By: Vicki Styles DO, DO, Kathleen Spirometry (05860)By: Neil NG, On: 06-Sep-2017 Intent Vicki Nichols DO Comments: severe obsstyuction and good effort on curve-- addeed dulera - ELECTROCARDIOGRAM, COMPLETE (ECG) On: 06-Sep-2017 Intent ([id number])By: Vicki Styles DO Comments: a fib- rate controlled - no acute findings Vicki Styles DO X-RAY OF HAND, THREE VIEWS On: 17-Jun-2017 Intent (15295)By: Vicki Styles DO Comments: Right hand Vicki Styles DO PARATHYROID SCAN ([id number])By: Neil On: 17-Jun-2017 Intent Vicki NG DO, Vicki Overnight Pulse OX ([id number])By: On: 04-Jun-2017 Intent Vicki Styles DO DOVicki [id number] BEHAVIORAL COUNSELING On: 09-Nov-2016 Intent FOR OBESITY, 15 MINUTES (G0447)By: Vicki Styles DO, DO, Kathleen INTENSIVE BEHAVIORAL THERAPY TO On: 09-Nov-2016 Intent REDUCE CARDIOVASCULAR DISEASE RISK, INDIVIDUAL, AGLB-RJ-TQVH, ANNUAL, 15 MINUTES (G0446)By: Vicki Styles DO, DO, Kathleen ELECTROCARDIOGRAM, COMPLETE (ECG) On: 10-Sep-2016 Intent (43576)By: Vicki Styles DO Comments: chronic chg - afib/flutter - rate controlled Vicki Styles DO SIX MINUTE WALK TEST (37595)By: On: 26-Mar-2016 Intent Vicki Styles DO Neil DO, Vicki Overnight Pulse OX ([id number])By: On: 09-Mar-2016 Intent Vicki Styles DO Neil DO, Vicki Overnight Pulse OX ([id number])By: On: 04-Mar-2016 Intent Vicki Styles DO, DO, Kathleen Spirometry (01581)By: Neil NG, On: 04-Mar-2016 Intent Vicki Nichols DO Comments: pt admits not using inhalers - restrictive pattern - refilled inhalers - symbicort nad spiriva and will yessenia in one month INTENSIVE BEHAVIORAL THERAPY TO On: 07-Nov-2015 Intent REDUCE CARDIOVASCULAR DISEASE RISK, INDIVIDUAL, POAD-XH-ITSI, ANNUAL, 15 MINUTES (G0446)By: Vicki Styles DO DO, Vicki [id number] BEHAVIORAL COUNSELING On: 07-Nov-2015 Intent FOR OBESITY, 15 MINUTES (G0447)By: Vicki Styles DO DO, Vicki Radiology - Chest- PA and LatBy: On: 18-Apr-2015 Intent Neil NG, Vicki Styles DO, Vicki Echo CompleteBy: Neil NG, On: 18-Apr-2015 Intent Vicki Styles DO, Vicki Prevnar 13 ([id number])By: Neil NG, On: 16-Jan-2014 Intent Vicki Rodriguezon DO, Vicki Prevnar 13 (82960)By: Neil NG, On: 16-Jan-2014 Intent Vicki Nichols DO Comments: [id number] arm, 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, SAFETY COUNSELOR Overnight Pulse OX ([id number])By: On: 03-Jan-2014 Intent Vicki Styles DO DOVicki Six Minute Walk Assessment On: 28-Dec-2013 Intent ([id number])By: Vicki Styles DO DO, Vicki [id number]-EE-RQOE BEHAVIORAL COUNSELING On: 23-Nov-2013 Intent FOR OBESITY, 15 MINUTES (G0447)By: Vicki Styles DO DOVicki INTENSIVE BEHAVIORAL THERAPY TO On: 19-Oct-2013 Intent REDUCE CARDIOVASCULAR DISEASE RISK, INDIVIDUAL, UBRQ-AL-MFLX, ANNUAL, 15 MINUTES (G0446)By: Vicki Styles DO Neil DO, Vicki [id number]-NW-KKOH BEHAVIORAL COUNSELING On: 19-Oct-2013 Intent FOR OBESITY, 15 MINUTES (G0447)By: Vicki Styles DOon Vicki NG Radiology - Chest- PA and LatBy: On: 24-Aug-2013 Intent Neil DO, Vicki Neil DO, Vicki Aerosol Treatment ([id number])By: On: 24-Aug-2013 Intent Neil DOVicki Neil DO, Comments: no wheeze and much more a/e Vciki Eprescribed prescriptions On: 15-May-2013 Intent (G8553)By: Leora Fonseca LPN Eprescribed prescriptions On: 20-Mar-2013 Intent (G8553)By: Vicki Styles DO, DO, Kathleen INTENSIVE BEHAVIORAL THERAPY TO On: 17-Oct-2012 Intent REDUCE CARDIOVASCULAR DISEASE RISK, INDIVIDUAL, [id number]-JK-[id number], ANNUAL, 15 MINUTES (G0446)By: Vicki Styles DO DOVicki OFNS-TQ-JSUD BEHAVIORAL COUNSELING On: 17-Oct-2012 Intent FOR OBESITY, 15 MINUTES (G0447)By: Vicki Styles DO Neil DOVicki EKG ([id number])By: Neil NG, On: 17-Oct-2012 Intent Vicki Neil DOSamiraVicki Eprescribed prescriptions On: 17-Oct-2012 Intent (G8553)By: Leora Fonseca LPN Six Minute Walk Assessment On: 28-Jul-2012 Intent ([id number])By: Gay Brandon LPN Z (71320)By: Neil NG, On: 18-Jul-2012 Intent Vicki Neil DOJonathanVicki Comments: unable to connect and perform Six Minute Walk Assessment On: 18-Jul-2012 Intent (08011)By: Vicki Styles DO Comments: set up Neil DOSamiraVicki Eprescribed prescriptions On: 22-Apr-2012 Intent (G8553)By: Leora Fonseca LPN Spirometry (76262)By: Neil GN, On: 21-Jan-2012 Intent Vicki Nichols DO Comments: poor effort Eprescribed prescriptions On: 21-Jan-2012 Intent (G8553)By: Leora Fonseca LPN PFT - CompleteBy: Neil NG, On: 21-Oct-2011 Intent Vicki Neil DOSamiraVicki EKG (34324)By: Neil NG, On: 21-Oct-2011 Intent Vicki Nichols DO Comments: nsr no acute chg Eprescribed prescriptions On: 05-Aug-2011 Intent (G8553)By: Leora Fonseca LPN Six Minute Walk Assessment On: 06-Feb-2011 Intent ([id number])By: Naomi Mendez Comments: see scanned documents Six Minute Walk Assessment On: 26-Nov-2010 Intent (86241)By: Vicki Styles DO Comments: set up Vicki Styles DO Bio Z ([id number])By: Neil NG, On: 26-Nov-2010 Intent Vicki Nichols DO Comments: norrmal parameters no chg in rx EKG (02971)By: Neil NG, On: 26-Nov-2010 Intent Vicki Nichols DO Comments: nsr no acute chgn TDAP VACCINE >7 IM (06304)By: On: 30-Jul-2010 Intent Vicki Styles DO, DO, Comments: Lot:[id number]:06/26/12Amt:prefilledRoute:IMSite: left deltGiven By: CARYL Edwards Vicki Eprescribed prescriptions On: 30-Jul-2010 Intent (G8553)By: Vicki Styles DO, DO, Kathleen Bio Z (14507)By: Neil NG, On: 30-Jul-2010 Intent Vicki Nichols DO Comments: STABLE SEE SCANNED DOC -NO CHG IN MEDS EKG (60206)By: Neil NG, On: 26-Mar-2010 Intent Vicki Nichols DO Bio Z ([id number])By: Neil GN, On: 26-Mar-2010 Intent Vicki Nichols DO PHYSICAL THERAPY EVALUATION On: 07-Jan-2010 Intent ([id number])By: Elisabet Matos CNP Radiology - Knee - [...] DO, Vicki Neil DO, Vicki Bio Z (21568)By: Neil DO, On: 19-Mar-2009 Intent Vicki Neil DO Vicki Comments: ok co and svr EKG (69902)By: Neil DO, On: 19-Mar-2009 Intent Vicki Neil DO Vicki Comments: nsr no acute changes Spirometry (73432)By: Neil DO, On: 19-Mar-2009 Intent Vicki Neil DO Vicki Comments: mild obstructive pattern - Pulse Oximetry (67900)By: Mast RN, On: 19-Mar-2009 Intent Darling EKG (94370)By: Neil DO, On: 25-Jul-2008 Intent Vicki Neil DOSamiraVicki Comments: no acute stable Bio Z ([id number])By: Neil DO, On: 25-Jul-2008 Intent Vicki Neil DO Vicki Comments: stable no changes Six Minute Walk Assessment On: 16-May-2008 Intent (47462)By: Crystal Reyes Six Minute Walk Assessment On: 23-Mar-2008 Intent ([id number])By: Neil DO, Vicki Neil DO, Vicki Bio Z ([id number])By: Neil DO, On: 23-Mar-2008 Intent Vicki Neil DO Vicki Comments: normal svr and co Radiology - Knee - LeftBy: Neil On: 28-Dec-2007 Intent DO, Vicki Neil DO, Vicki Radiology - Knee - RightBy: Neil On: 28-Dec-2007 Intent DO, Vicki Neil DO, Vicki Bio Z ([id number])By: Neil DO, On: 28-Dec-2007 Intent Vicki Neil DO, Vicki Comments: normal svr and co Bio Z ([id number])By: Neil DO, On: 01-Sep-2007 Intent Vicki Nichols DO Comments: HYPERDYNAMIC HEART-- HI CO AND LO SVR Holter Moniter ([id number])By: Neil On: 04-May-2007 Vicki Coates DO, DO, Kathleen Comments: set up Bio Z ([id number])By: Neil NG, On: 04-May-2007 Intent Vicki Nichols DO Comments: normal svr and co EKG (36083)By: Neil GN, On: 04-May-2007 Intent Vicki Nichols DO Comments: nsr some pvc-- no acute ischemic changes Radiology - Chest- PA and LatBy: On: 24-Mar-2007 Intent Vicki Styles DO, DO, Kathleen Aerosol Treatment ([id number])By: On: 24-Mar-2007 Vicki Lainez DO, DO, Comments: better air exchange less wheeze and less irritability with cough Vicki Solu- Medrol Injection, 125mg On: 24-Mar-2007 Intent ([id number])By: Vicki Styles DO Comments: given in right hip, 125mg, lot#[id number], exp.5--WF Vicki Styles DO Spirometry (52660)By: Neil NG, On: 24-Mar-2007 Intent Vicki Nichols DO Comments: severe airway obstruction Pulse Oximetry (17621)By: Neil On: 24-Mar-2007 Vicki Coates DO, DO, Kathleen Comments: 94% Doppler Ultrasound OtherBy: Neil On: 02-Mar-2007 Vicki Coates DO, DO, Kathleen Comments: R Inhaler Demo (73077)By: Neil NG, On: 27-Jan-2007 Intent Vicki Nichols DO Bio Z (71640)By: Neil NG, On: 27-Jan-2007 Intent Vicki Nichols DO Comments: normal svr and co Spirometry ([id number])By: Neil NG, On: 27-Jan-2007 Intent Vicki Nichols DO Comments: mild obstruction Bio Z (23823)By: Neil NG, On: 11-Oct-2006 Intent Vicki Nichols DO Comments: normal svr and co EKG (42259)By: Neil NG, On: 26-Apr-2006 Intent Vicki Nichols DO Comments: nsr intraventricular conduction delay no acute ischemic changes Holter Moniter (52029)By: On: 26-Mar-2006 Intent REILLY Moya Instructions Name [...] systolic congestive heart failure Coronary 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 : How to access health information online Indication: 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 : How to access health information online - Detail Indication: Coronary 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 Bilateral edema of lower extremity [...] 2, uncontrolled, without complications Coronary 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 : cardiovascular counseling Indication: Coronary 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 BMI 37.0-37.9, adult : obesity [...] Indication: Abnormal brain MRI Coronary 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 : cardiovascular counseling Indication: Coronary 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 BMI 36.0-36.9,adult : obesity counseling [...] The patient does have durable power of report clerk and living will. The patient has noticed nothing from the geriatic depression scale. Other providers contributing to the patient's care are roller picker, size worker, urologist and other: (endo).Encounter Diagnosis: Nonsmoker, BMI [...] I called squad and I was at [facility] and then I went to [facility] for End: 06-Jan-2017 11:01 heraphy) [...] The patient does have durable power of report clerk and living will. The patient has noticed nothing from the geriatic depression scale. Other providers contributing to the patient's care are roller picker, urologist and other:.Encounter Diagnosis: Nonsmoker, BMI 35.0-35.9,adult, [...] extremity edema, increase SOB. Recent trip to [place] Encounter Diagnosis: Edema extremities, Fluid overload, Atrial [...] The patient does have durable power of report clerk and living will. The patient has noticed lack of energy. Other providers contributing to the patient's care are roller picker and urologist. Encounter Diagnosis: Encounter for Medicare [...] Hypertension with renal disease, Coronary 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, Chronic kidney disease, stage 3 [...] vivid dreams. Encounter Diagnosis: Coronary 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, Apnea, BPH (benign prostatic hyperplasia) (600.90), Other urinary incontinence, Bilateral edema of lower extremity, Short of breath on exertion, Non morbid obesity, unspecified obesity type, Therapeutic drug monitoring [facility] Office Visit On: 10-May-2015 10:16 Encounter Diagnosis: Atrial fibrillation, unspecified type, Coronary 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 (414.01), Acute systolic congestive heart [...] type, Abnormal blood chemistry, Coronary 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 (414.01) End: 06-May-2015 10:58 Comprehensive [...] deficiency, unspecified, Mixed hyperlipidemia (272.2), Atherosclerosis of [place] coronary artery without angina pectoris, unspecified whether [place] or transplanted heart, History of CVA in [...] weight :. Encounter Diagnosis: Coronary 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 (414.01), BMI 37.0-37.9, ADULT (V85.37), [...] patient d oes have durable power of report clerk and living will. The patient has noticed feeling situation is hopeless (recently). Other providers contributing to the patient's care are roller picker (Dr. 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.93), Diabetes mellitus without complication (Renamed from Diabetes mellitus with no complication), Hyperlipidemia (272.4), Edema (782.3) [facility] Office Visit On: 20-Mar-2013 10:40 Encounter Diagnosis: Hypertension with Heart and Renal Disease (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 [facility]: PSA testing (september 2012) and colonoscopy (around 10 years). The patient does have durable power of report clerk and living will. The patient has noticed nothing from the geriatic depression scale. Other providers contributing to the patient's care are roller picker (Dr. Greenfield) and urologist. 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), Coronary 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 (414.01) [facility] Phone [...] fibrillation (427.31), COPD (496.), Coronary 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 (414.01), Mixed hyperlipidemia (272.2), Hypertensive [...] , Atrial fibrillation (427.31), Coronary 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 (414.01) [facility] Office [...] Coronary atherosclerosis of unspecified type of vessel, [place] or graft (414.00), COPD (496.), Hyperglycemia (790.29), [...] Coronary atherosclerosis of unspecified type of vessel, [place] or graft (414.00), Atrial fibrillation (427.31), Obesity, [...] Coronary atherosclerosis of unspecified type of vessel, [place] or graft (414.00), Hypertensive heart disease (402.90) [...] Hypertensive heart disease (402.90), Coronary 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 (414.01), Atrial fibrillation (427.31), Hyperlipidemia [...] Coronary atherosclerosis of unspecified type of vessel, [place] or graft (414.00), Atrial fibrillation (427.31), Hypocalcemia [...] Hypertensive heart disease (402.90), Coronary 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 (414.01), Hyperlipidemia (272.4), COPD (496.), [...] Coronary atherosclerosis of unspecified type of vessel, [place] or graft (414.00), Atrial fibrillation (427.31), Mixed [...] Coronary atherosclerosis of unspecified type of vessel, [place] or graft (414.00), Atrial fibrillation (427.31), Mixed [...] Coronary atherosclerosis of unspecified type of vessel, [place] or graft (414.00), Atrial fibrillation (427.31), Coronary 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 (414.01), Unspecified vitamin D deficiency [...] Diagnosis: Atrial fibrillation (427.31), Coronary 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 (414.01), Hypertensive heart disease (402.90), [...] (402.90), Atrial fibrillation (427.31), Coronary 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 (414.01), Hyperlipidemia (272.4), Cough (786.2), [...] Hypertensive heart disease (402.90), Coronary 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 (414.01), Atrial fibrillation (427.31), Hyperlipidemia [...]
--- OUTSIDE RECORDS SUMMARY | 2018-04-29 16:04 | XMS RPT_ITS | Continuity of Care Document ---
:1940 Author Organization [facility] Address [facility] [address] [place] [address] Phone Care Team Providers Name Role Phone Neil DO Vicki Unavailable Milagro PHAN, Dr. Mohsen Mckenna Unavailable Physical Therapy, [facility] Unavailable Lesa Alvarado Unavailable Dr. Juan Sin DO Unavailable [facility], [facility] Unavailable Kimo Roger MD Unavailable Mata Leonard Unavailable [facility] Unavailable Kamaljit PHAN, Dr. 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) Status: Active Hypoxia (R09.02, 799.02) Comments: sleep related and wears at nightmanaged by Equivalent DATA Status: Active Influenza vaccination declined (Renamed from [...] 17-Jun-2017 Inactive Comments:on national back order DRISDOL, 24470XJAZ (Oral Capsule) 1 Capsule uad for 0 days Quantity: 8 {Capsule} Refills: 4 Ordered:21-Jan-2012 Leora Fonseca LPN Start : 31-Jul-2010 End : 21-Jan-2012 Inactive Comments:2 tabs q week x 4 mo and then 1 tab weekly ERGOCALCIFEROL, 09991OYIE (Oral Capsule) 1 (one) Capsule tad for [...] Moya Start : 21-Aug-2008 Inactive VITAMIN D3, 93740XJBI (Oral Capsule) 1 Capsule 2 x week [...] : 04-Jun-2017 Discontinued Comments:This order discontinued per [facility]. DIOVAN HCT, 320-25MG (Oral Tablet) 1 (one) [...] Comments:take 1/2 hr prior to lasix Nystatin 727977 UNIT/ML Mouth/Throat Suspension 5 cc cc swish [...] Inactive as of 04-Mar-2016 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 (I25.10, 414.01) Comments: other stent [...] Visit Report Result: Comments: See Note; NOTES: [facility] [address] [place] [address]. [address] [place] [address] OFFICE VISIT Date of Service: 01/13/18 MR#: [id number] Acct: [id number] Name: RAMU DEWITT Rep #: [id number] : 1940 Provider: Jimi Greenfield MD Age/Sex: 77/M Location: [facility] Status: Signed HPI HPI Chief Complaint: Follow up visit Details: RAMU DEWITT, is a 77 M who presents to the [facility] today for a cardiovascular outpatient follow-up. 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) Ischemic cardiomyopathy (Chronic) FH: sudden cardiac (SCD) (Chronic) 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 of 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) BPH with urinary obstruction (Chronic) Noncompliance [...] 3 Views Result: Comments: See Note; NOTES: [facility] Imaging Services [address] [place] [address] Hand Min 3 Views MR#: [id number] Acct: [id number] Name: RAMU DEWITT Rep #: [id number] DO B: 1940 M 76 From: Andre Crisostomo MD PCP: Vicki Styles DO Status: REG CLI Study: Hand Min 3 Views Date of Exam: 08/20/17 Exam# [id number] Ordering Dr: Lesa Alvarado MD STUDY: X-RAY [...] CC: Vicki Styles DO; Lesa Alvarado MD Electrical And Radio Aircraft Mechanic: Signed 20-Aug-2017 Hand Min 3 Views Result: Comments: See Note; NOTES: [facility] Imaging Services [address] [place] [address] Hand Min 3 Views MR#: [id number] Acct: [id number] Name: RAMU DEWITT Rep #: [id number] DO B: 1940 M 76 From: Andre Crisostomo MD PCP: Vicki Styles DO Status: REG CLI Study: Hand Min 3 Views Date of Exam: 08/20/17 Exam# [id number] Ordering Dr: Lesa Alvarado MD STUDY: X-RAY [...] CC: Vicki Styles DO; Lesa Alvarado MD Electrical And Radio Aircraft Mechanic: Signed 20-Aug-2017 Knee 4 or More Views Result: Comments: See Note; NOTES: [facility] Imaging Services [address] [address] Knee 4 or More Views MR#: [id number] Acct: [id number] Name: RAMU DEWITT Rep #: [id number] : 1940 [facility] From: Andre Crisostomo MD PCP: Vicki Styles DO Status: REG CLI Study: Knee 4 or More Views Date of Exam: 08/20/17 Exam# [id number] Ordering Dr: Lesa Alvarado MD STUDY: X-RAY [...] CC: Vicki Styles DO; Lesa Alvarado MD Electrical And Radio Aircraft Mechanic: Signed 20-Aug-2017 Knee 4 or More Views Result: Comments: See Note; NOTES: [facility] Imaging Services [address] [place] [address] Knee 4 or More Views MR#: [id number] Acct: [id number] Name: RAMU DEWITT Rep #: [id number] : 1940 M 76 From: Andre Crisostomo MD PCP: Vicki Styles DO Status: REG CLI Study: Knee 4 or More Views Date of Exam: 08/20/17 Exam# [id number] Ordering Dr: Lesa Alvarado MD STUDY: X-RAY [...] CC: Vicki Styles DO; Lesa Alvarado MD Electrical And Radio Aircraft Mechanic: Signed 24-Jun-2017 Parathyroid Scan Result: Comments: See Note; NOTES: [facility] Imaging Services [address] [place] [address] Parathyroid Scan MR#: [id number] Acct: [id number] Name: RAMU DEWITT Rep #: [id number] DO B: 1940 M 76 From: Rickie Mcelroy DO PCP: Vicki Styles DO Status: REG CLI Study: Parathyroid Scan Date of Exam: 06/24/17 Exam# [id number] Ordering Dr: Vicki Styles DO CLINICAL: 76-year-old [...] Service support , CC: Vicki Styles DO Electrical And Radio Aircraft Mechanic: Signed 17-Jun-2017 Hand Min 3 Views Result: Comments: See Note; NOTES: [facility] Imaging Services [address] [place] [address] Hand Min 3 Views MR#: [id number] Acct: [id number] Name: DEWITTRAMU Rep #: [id number] DO B: 1940 M 76 From: Trung Gonzalez DO PCP: Vicki Styles DO Status: REG CLI Study: Hand Min 3 Views Date of Exam: 06/17/17 Exam# [id number] Ordering Dr: Vicki Styles DO STUDY: X-RAY [...] Service support , CC: Samira Styles DO Electrical And Radio Aircraft Mechanic: Signed 16-Jun-2017 Cardiology Visit Report Result: Comments: See Note; NOTES: [facility] [address] [place] [address] OFFICE VISIT Date of Service: 06/16/17 MR#: [id number] Acct: [id number] Name: RAMU DEWITT Rep #: [id number] : 1940 Provider: LUIS Sanders Age/Sex: 76/M Location: [facility] [place] Status: Signed HPI HPI Details: [...] Lt brachial Intake Visit Reasons: 3 M Medical Numerical Control Operator Required: No Accompanied by: None Is patient [...] 12/12/16 [Rx Confirmed 06/14/17] Hydrocodone Bitart/Apap 5-325 [[place] 5/325] 1 tab PO Q6H PRN PRN #30 tab 12/12 [Rx Confirmed 06/14/17] apixaban 2.5 mg tablet 2.5 mg PO BID #14 tab 04/08/17 [Rx Confirmed 06/14/17] Ejection fraction %: 40 to 44 PFSH Medical History History of stroke (Chronic) 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 2. Atherosclerosis of mary's igloo coronary artery of mary's igloo heart witho ut angina pectoris I25.10 S/P [...] prior to saving. 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) Coding Level of Care Code Off vis,est,level 3 Diagnoses Cardiomyopathy, ischemic I25.5 Atherosclerosis of mary's igloo coronary artery of mary's igloo heart without angina pectoris I25.10 Persistent atrial fibr illation I48.1 Atrial fibrillation type: persistent Essential hypertension I10 Hypertension type: essential hypertension Mixed hyperlipidemia E78.2 Hyperlipidemia type: mixed hyperlipidemia terminal gauger us e of drug Z79.899 Coding Level of Care Code Off vis,est,level 3 Diagnoses Cardiomyopathy, ischemic I25.5 Atherosclerosis of mary's igloo coronary artery of mary's igloo heart without angina pectoris I25.10 Persi stent atrial fibrillation I48.1 Atrial fibrillation type: persistent Essential hypertension I10 Hypertension type: essential hypertension Mixed hyperlipidemia E78.2 Hyperlipidemia type: mixed hyperlipid emia [facility] use of drug Z79.899 06/16/17 1139 <Electronically signed by Ramu POTTER> Date Ramu POTTER 06/16/17 1417&am p;#60;Electronically signed by Jimi Greenfield MD> Cosigner Signature: Date (if applicable) Jimi Greenfield MD CC: Vicki Styles DO 08-Dec-2016 Emergency Department Summary Result: Comments: See Note; NOTES: [facility] Medical Records Department [address] [place] [address] Emergency Department Summary 12/08/16 1354 MR#: [id number] Acct: [id number] Name: RAMU DEWITT Rep #: [id number] : 1940 75 From: Robe Mary MD [...] [place] C. Computer is reading acute inferior NE. I am in disagreement. Chest x-ray reveals [...] problems, contact your Primary Care Provider. Call [facility] ([phone]) or r bethanyrt to the closest Emergency Room. Call 911 if necessary. 12/08/16 3879 <Electronically signed by Robe Mary MD> Date Robe Mary MD Cosigner Signature (If Indicated): Date CC: Jimi Greenfield MD; Vicki Styles DO 08-Dec-2016 Knee 1 or 2 Views Result: Comments: See Note; NOTES: [facility] Imaging Services [address] [address] Knee 1 or 2 Views MR#: [id number] Acct: [id number] Name: DEWITTRAMU Rep #: [id number] D OB: 1940 M 75 From: Shahab Carlos MD PCP: Vicki Styles DO Status: REG ER Study: Knee 1 or 2 Views Date of Exam: 12/08/16 Exam# [id number] Ordering Dr: Robe Mary MD STUDY: X-RAY [...] Shahab Carlos MD at 12:57 EDT Tel [phone], Service support , CC: Vicki Styles DO; Robe Mary MD Electrical And Radio Aircraft Mechanic: Signed 08-Dec-2016 Chest 1 View (Portable) Result: Comments: See Note; NOTES: [facility] Imaging Services [address] [place] [address] Chest 1 View (Portable) MR#: [id number] Acct: [id number] Name: RAMU DEWITT Rep #: [id number] : 1940 M 75 From: Shahab Carlos MD PCP: Vicki Styles DO Status: REG ER Study: Chest 1 View (Portable) Date of Exam: 12/08/16 Exam# [id number] Ordering Dr: Robe Mary MD STUDY: X- [...] Shahab Carlos MD at 12:58 EDT Tel [phone], Service support , CC: Vicki Styles DO; Robe Mary MD Electrical And Radio Aircraft Mechanic: Signed 07-Jan-2016 Chest 1 View (Portable) Result: Comments: See Note; NOTES: [facility] Imaging Services [address] [place] [address] Verdana 4d Chest 1 View (Portable) MR#: [id number] Acct: [id number] Name: RAMU DEWITT Rep #: [id number] : 1940 M 75 From: Shahab Carlos MD PCP: Vicki Styles DO Status: [facility] Study: Chest 1 View (Portable) Date of Exam: 01/07/16 Exam# [id number] Ordering Dr: Ron Buchanan MD STUDY: X-RAY [...] Shahab Carlos MD at 15:38 EDT Tel [phone], Service support , CC: Vicki Styles DO; Jerel Buchanan MD Electrical And Radio Aircraft Mechanic: Signed 13-Nov-2015 Echocardiogram Complete Result: Comments: See Note; NOTES: [facility] Cardiovascular Services [address] [place] [address] Echo Complete 11/13/15 1006 MR#: [id number] Acct: [id number] Name: RAMU DEWITT Rep #: [id number] : 1940 74 From: Jimi Greenfield MD Attending Dr: Precious Cole Status: REG CLI Ordering Dr: Precious Cole Date: 11/13/15 Location: [facility] Sex: M C Admitted: Reas on [...] Dictated: 11/13/15 1006 Date Transcribed: 11/13/15 1256 Electrical And Radio Aircraft Mechanic: Signed 08-Oct-2015 ELECTROCARDIOGRAM, COMPLETE (ECG) (62503) Result: [MEASUREMENTS ANALYSIS] Date of Test: 10/08/2015 09:07:11; Heart Rate: 98; RI Interval: 0; QRS: 114; QT Interval: 372; Corrected QT Interval (QTc): 438; P Wave Mcdonald: -90; QRS Wave Mcdonald: -1; T Wave Mcdonald: -33; Blood Pressure: 142/86 [ECG DIAGNOSTIC STATEMENTS] Date of Test: 10/08/2015 09:07:11; Summary: Atrial fibrillation -Nonspecific ST depression + Nonspecific T-abnormality -Nondiagnostic. ABNORMAL 09-Jul-2015 Chest 1 View (Portable) Result: Comments: See Note; NOTES: [facility] Imaging Services [address] [place] [address] Verdana 4d Chest 1 View (Portable) MR#: [id number] Acct: [id number] Name: RAMU MARTIN Rep #: [id number] : 1940 M 74 From: Noa Buchanan MD PCP: Vicki Styles DO Status: REG ER Study: Chest 1 View (Portable) Date of Exam: 07/09/15 Exam# [id number] Ordering Dr: Jerel Buchanan MD STUDY: X-RAY [...] at 17:21 EDT Tel , Service support [phone], RAD/Chest 1 View (Portable) IMPRESSION: New small pleural effusion with right b asilar lung consolidation. Persisting cardiomegaly. Electronically Signed: Noa Buchanan MD at 17:21 EDT Tel , Service support [phone], C C: Vicki Styles DO; Jerel Buchanan MD Electrical And Radio Aircraft Mechanic: Signed 24-May-2015 Nuclear Stress Test - Chemical Result: Comments: See Note; NOTES: [facility] Imaging Services [address] [place] [address] Lorie 4d Nuclear Stress Test - Chemical MR#: [id number] Acct: [id number] N ani: RAMU DEWITT Rep #: [id number] : 1940 74 From: Jimi Greenfield MD [...] present. Jimi Greenfield MD T: NTS JOB: [id number] <Electronically signed by Jimi Greenfield MD> Date Jimi Greenfield MD CC: Vicki Styles DO Date Dictated: 05/24/15 1253 D ate Transcribed: 05/24/151252 Electrical And Radio Aircraft Mechanic: Signed 18-Apr-2015 Chest 1 View (Portable) Result: Comments: See Note; NOTES: [facility] Imaging Services [address] [place] [address] Verdana 4d Chest 1 View (Portable) MR#: [id number] Acct: [id number] Name: RAMU MARTIN Rep #: [id number] : 1940 M 74 From: Shahab Carlos MD PCP: Vicki Styles DO Status: REG ER Study: Chest 1 View (Portable) Date of Exam: 04/18/15 Exam# [id number] Ordering D r: Ros Zuniga STUDY: X-RAY [...] Shahab Carlos MD at 13:57 EST Tel [phone], Service support [phone], RAD/Chest 1 View (P ortable) IMPRESSION: Thyromegaly and mild degree of CHF with bibasilar atelectasis. Electronically Signed: Shahab Carlos MD at 13:57 EST Tel [phone], Service support , CC: Ros Zuniga; Vicki Styles DO Electrical And Radio Aircraft Mechanic: Signed 18-Apr-2015 EKG (32728) Comments: afib with RVR-- 150 -pt admits he hasnt taken bystolic >30 day Result: [MEASUREMENTS ANALYSIS] Date of Test: 04/18/2015 11:50:46; Heart Rate: 150; RI Interval: -612; QRS: 96; QT Interval: 302; Corrected QT Interval (QTc): 459; P Wave Mcdonald: 1; QRS Wave Mcdonald: 15; T Wave Mcdonald : -90; Blood Pressure: 124/82 [ECG DIAGNOSTIC STATEMENTS] Date of Test: 04/18/2015 11:50:46; Summary: Possible atrial fibrillation -Inferior infarct -age undetermined. -Nonspecific ST depression -Nondiagnostic. ABNORMAL -May-2014 Sleep Study Report Result: Comments: See Note; NOTES: [facility] [address] [place] [address] Polysomnography with NCPAP MR#: [id number] Acct: [id number] Name: RAMU DEWITT Rep #: [id number] : 1940 73 From: Cezar Escalante MD PCP: Vicki Styles DO Status: REG CLI Ordering Dr.: Dana Osborne NP-C Date: 05/01/14 Sex: M C REFERRING PHYSICIAN: COREY Shah SLEEP HISTORY: This is a CPAP titration study performed on this 73-year-old male with a body mass index of 36.5 and an [place] Sleepiness Scale score of 8. Diagnostic polysomnogram [...] version). Please note that a reference to [facility] AHI in this report is consistent with the current Hypopnea definition according to Medicare Criteria and an [facility] AHI reference is consistent with the current Hypopnea definition according to the AASM criteria. PROCEDURE: The study was attended continuously by a agriculture laboratory technician. Monitored parameters included left and right [...] Study Report Result: Comments: See Note; NOTES: [facility] [address] [place] [address] Polysomnography MR#: [id number] Acct: [id number] Name: RAMU DEWITT Rep #: [id number] : 1940 73 From: Dillon Mienr MD PCP: Vicki Styles DO Status: REG CLI Ordering Dr.: Vicki Styles DO Date: 03/08/14 Sex: M C REFERRING PHYSICIAN: Dr. Styles. SLEEP HIS TORY: The patient is a 73-year-old gentleman with a calculated body mass index of 36.5 and an [place] Sleepiness Scale score of 8/24. He complains [...] version). Please note that a reference to [facility] AHI in this report is consistent with the current Hypopnea definition according t o Medicare Criteria and an [facility] AHI reference is consistent with the current Hypopnea definition according to the AASM criteria. PROCEDURE: The study was attended continuously by a agriculture laboratory technician. Monitored parameters included left and right EOG, frontal, central, and occipital EEG, mental and submental EMG, left and right anterior tibialis EMG, signal ECG waveform, snore, continuous airflow w ith thermistor and nasal pressure transducer, chest and abdominal plethysmography efforts, oxygen saturation with heart rate, and body positioning with video monitoring. SLEEP STUDY DATA: The [facility] polysomnogram began at 0939:27 p.m. and ended at 435898 a.m. for a total recording time of [...] Co-signature (if applicable) Date Signed 28-Dec-2013 Spirometry (34544) Result: 29-Aug-2013 Chest PA and Lateral Result: Comments: See Note; NOTES: [facility] Imaging Services [address] [place] [address] Radiology Report MR#: [id number] Acct: [id number] Name: RAMU DEWITT Rep #: [id number] : 1940 M 72 From: Shahab Carlos MD PCP: Vicki Styles DO Status: REG CLI Study: Chest PA and Lateral Date of Exam: 08/29/13 Exam# [id number] Ordering Dr: Vicki Styles DO STUDY: X-RAY [...] Shahab Carlos MD at 15:06 EDT Tel [phone], Service support [phone], CC: Vicki Styles DO Electrical And Radio Aircraft Mechanic: Signed 24-Aug-2013 Spirometry (84074) Comments: obstruction present Result: Social History Name Dates Details Alcohol Use Comments: Occasional alcohol use Status: Active Caffeine Use Comments: 6 - 8 Glasses per day Status: Active Non Smoker/No Tobacco Use Status: Active Tobacco use: Former smoker. Comments: 08/26/11 Status: Active Smoking Status Name Dates Details Former smoker Vital Signs Date Test Result Details 73-Iaw-099443:13 Comments: [facility] and had a glaucoma test donehearing wn [...] kg/m2 Body Surface Area Calculated 2.08 m2 9-Ymo-146158:19 Pulse 68 /min Comments: Pattern: Regular Respiration [...] Area Calculated 2.05 m2 :36 Comments: hearing [facility] and had glaucoma test [...] kg/m2 Body Surface Area Calculated 2.13 m2 98-Syy-913776:09 Pulse 60 /min Comments: Pattern: Regular Respiration [...] Cuff Location: Left Arm; Cuff Size: Standard 31-Uow-062363:16 Temperature 97 f Comments: Method: Tympanic Pulse [...] kg/m2 Body Surface Area Calculated 2.13 m2 26-Hoc-732871:23 Temperature 96 f Comments: Method: Oral Pulse [...] kg/m2 Body Surface Area Calculated 2.12 m2 24-Irt-546274:44 Pulse 58 /min Comments: Pattern: Regular Respiration [...] :19 Comments: before- BP 142/89 Sp02- 98% M-70sylyb-XZ 150/84 Sp02 97% P-60 Temperature 97.9 f [...] Value Details :06 CBC W/Diff, Automated Comments: [facility] [address] [place], [place], [address] Absolute Lymph 1.37 {X10_3/ul} (Normal) Range: 0.83-4.51 [...] 4.6-6.2 WBC 7.1 K/mm3 (Normal) Range: 4.4-11.0 03-Nth-433419:06 Comprehensive Metabolic Profil Comments: [facility] [address] [place], [place], [address] GAP 12 (Normal) Range: 5-15 CO2 26.0 [...] A.D.A. criteria.Please note revised GLUCOSE reference range apvsdxkuv69/02/2018. 18-Bkb-616475:06 Uric Acid Comments: [facility] [address] [facility] [place], [place], [address] URIC 9.2 mg/dL (Abnormal) Range: 3.5-7.2 Comments: The drugs N-Acetylcysteine and Metamizole may falselydepress this assay. 30-Iub-586847:39 CBC W/Diff, Automated Comments: [facility] [address] [place], [place], [address] Absolute Lymph 1.40 {X10_3/ul} (Normal) Range: 0.83-4.51 [...] 4.6-6.2 WBC 6.4 K/mm3 (Normal) Range: 4.4-11.0 45-Abp-958153:39 Comprehensive Metabolic Profil Comments: [facility] [address] [place], [place], [address] GAP 8 (Normal) Range: 5-15 CO2 30.0 [...] A.D.A. criteria.Please note revised GLUCOSE reference range jedmkfidy06/02/2018. 91-Sny-820811:39 Uric Acid Comments: [facility] [address] [place], [place], [address] URIC 9.1 mg/dL (Abnormal) Range: 3.5-7.2 Comments: The drugs N-Acetylcysteine and Metamizole may falselydepress this assay. 6-Yps-508182:57 HgA1C , Office (63141) HgA1C , Office 6.9 % (Normal) Range: 4.6 - 7.1 8-Hvp-492595:57 Blood Glucose , Office (14059) Blood Glucose , Office 173 (Normal) 52-Nzq-881798:26 CBC W/Diff, Automated Comments: [facility] [address] [place], [place], [address] Absolute Lymph 1.30 {X10_3/ul} (Normal) Range: 0.83-4.51 [...] 4.6-6.2 WBC 9.0 K/mm3 (Normal) Range: 4.4-11.0 50-Kaa-221953:26 CCP IgG Antibodies Comments: [facility] (refer to report for specific site)refer to report for address and phone number ANTI-CCP 243441 8 {units} (Normal) Range: 0-19 Comments: Negative <20 Weak positive 20 - 39 Moderate positive 40 - 59 Strong positive >59 46-Svj-050899:26 Comprehensive Metabolic Profil Comments: [facility] [address] [place], [address] GAP 9 (Normal) Range: 5-15 CO2 28.0 [...] A.D.A. criteria.Please note revised GLUCOSE reference range brymhtdyd42/02/2018. 92-Qkr-074096:26 CRP Comments: [facility] [address] [place], [address] C-REACTIVE PROT 8.60 mg/L (Abnormal) Range: 0.0-3.0 Comments: C-Reactive Protein (CRP) provides useful information for thediagnosis, therapy and monitoring of inflammatory processesand associated diseases. For the evaluation of Relative Riskfor Cardiovascular Dise ase, a High Sensitivity CRP (HSCRP)should be ordered. 67-Waf-066047:26 Erythrocyte Sed Rate Comments: [facility] [address] [place], [place], [address] SED RATE 18 mm/h (Normal) Range: 0-20 23-Xqg-270823:26 Hep B Surface Antibodies Comments: [facility] (refer to report for specific site)refer to report for address and phone number Hep B Patricia AB Non Reactive (Normal) Comments: Non Reactive: Inconsistent with immunity, less than 10 mIU/mL Reactive: Consistent with immunity, greater than 9.9 mIU/ mL 75-Wtk-052375:26 Hepatitis B Surface Ag Comments: [facility] (refer to report for specific site)refer to report for address and phone number HB SURF AG Negative (Normal) Comments: Performed at: - [facility] [id number] Director: Christopher Molina PhD, Phone: [phone] at: [address] [address]Mky Director: Dillon Falk MD, Phone: [phone] 65-Pmm-882456:26 Hepatitis C Antibodies Comments: [facility] (refer to report for specific site)refer to report for address and phone number HEP C AB <0.1 {s/co_ratio} (Normal) Range: 0.0-0.9 Comments: Negative: < 0.8 Indeterminate: 0.8 - 0.9 Positive: > 0.9 The CDC recommends that a positive HCV antibody result be followed up with a HCV Nucleic Acid Amplification test (799588). 85-Dgl-085980:26 Rheumatoid Factor Comments: [facility] [address] [place], [place], [id number] RHEUMATOID FAC < 10.0 {IU/mL} (Normal) 55-Zer-634534:26 Uric Acid Comments: [facility] Zdbwnyvnqr5171 [facility]. [place], [place], [id number] URIC 10.7 mg/dL (Abnormal) Range: 3.5-7.2 Comments: The drugs N-Acetylcysteine and Metamizole may falselydepress this assay. 99-Zwj-543567:20 CCP ANTIBODY (36504) Comments: PATIENT NOT FASTINGPERFORMED BY: eVoter[address] [id number] BY: [address] [id number] CCP Antibodies IgG/IgA 8 {units} (Normal) Range: 0-19 Comments: Negative <20 Weak positive 20 - 39 Moderate positive 40 - 59 Strong positive >59 66-Dkg-044258:20 SED RATE ERYTHROCYTE Comments: PATIENT NOT FASTINGPERFORMED BY: [address] [id number] BY: [address] [id number] (87828) Sedimentation Rate-Westergren 32 mm/h (Abnormal) Range: 0-30 92-Ttq-136539:20 C-REACTIVE PROTEIN Comments: PATIENT NOT FASTINGPERFORMED BY: LabCoSt. Joseph's Regional Medical CenterDwaitf0499 [place] [facility] [place] [id number] BY: [address] [id number] (80531) C-Reactive Protein, Quant 24.6 mg/L (Abnormal) Range: 0.0-4.9 54-Qre-030165:20 RHEUMATOID FACTOR-QUANT Comments: PATIENT NOT FASTINGPERFORMED BY: Kiva SystemsSt. Joseph's Regional Medical CenterVqyrup6057 [facility] [id number] BY: [address] [id number] (39475) RA Latex Turbid. <10.0 {IU/mL} (Normal) Range: 0.0-13.9 78-Mrm-833766:20 THAIS (ANTINUCLEAR ANTIBODY) Comments: PATIENT NOT FASTINGPERFORMED BY: [employer] Fbvhip1962 [facility] [id number] BY: [address] [id number] (56326) THAIS Direct Negative (Normal) 2-Rdu-166667:59 MAGNESIUM (18145) Comments: PATIENT WAS FASTINGPERFORMED BY: [facility] Hrfnmi8387 [place] [facility]in [place] [id number] Magnesium, Serum 2.1 mg/dL (Normal) Range: 1.6-2.3 4-Ywz-397823:59 PHOSPHORUS (68595) Comments: PATIENT WAS FASTINGPERFORMED BY: [facility] Tcttil8810 [facility] Hospital[facility] [place] [id number] Phosphorus, Serum 3.1 mg/dL (Normal) Range: 2.5-4.5 9-Mip-873337:59 PARATHORMONE (65818) Comments: PATIENT WAS FASTINGPERFORMED BY: [facility] Zsaemc3869 [facility] Hospitalblin [place] [id number] PTH, Intact 67 pg/mL (Abnormal) Range: 15-65 1-Pbu-703603:59 CALCIFEDIOL (47801) Comments: PATIENT WAS FASTINGPERFORMED BY: LabCoSt. Joseph's Regional Medical CenterSxahti6880 [facility] [id number] Vitamin D, 25-Hydroxy 21.5 ng/mL (Abnormal) Range: 30.0-100.0 Comments: Vitamin D deficiency has been defined by the [place] of[facility] and an Endocrine Society practice guideline as alevel of serum 25-OH vitamin D less than 20 ng/mL (1,2).The Endocrine Society went on to further define vitamin Dinsufficiency as a level between 21 and 29 ng/mL (2).1. IOM ([place] of Medicine). 2010. Dietary reference intakes for calcium and D. [place]: The National Academies Press.2. Marcelle MF, Justin PURCELL, Amira ELIAS, et al. Evaluation, treatment, and prevention of vitamin D deficiency: an Endocrine Society clinical practice guideline. JCEM. 2010; 96(7):1911-30. 7-Mup-014047:59 TSH (71025) Comments: PATIENT WAS FASTINGPERFORMED BY: [facility] Jubqfq9003 [facility] [id number] TSH 3.200 {uIU/mL} (Normal) Range: 0.450-4.500 7-Rox-777916:59 METABOLIC PANEL, COMPREHENSIVE Comments: PATIENT WAS FASTINGPERFORMED BY: LabCoSt. Joseph's Regional Medical CenterFwnyut9390 [facility] [id number] (87281) ALT (SGPT) 13 [iU]/L (Normal) Range: 0-44 [...] Glucose, Serum 166 mg/dL (Abnormal) Range: 65-99 9-Gvf-449173:59 LIPID PANEL (77971) Comments: PATIENT WAS FASTINGPERFORMED BY: [employer] [place] [id number] LDL/HDL Ratio 2.4 {ratio_units} (Normal) Range: 0.0-3.6 Comments: LDL/HDL Ratio Men Women 1/2 Avg.Risk 1.0 1.5 Av g.Risk 3.6 3.2 2X Avg.Risk 6.2 5.0 3X Avg.Risk 8.0 6.1 LDL Cholesterol Calc 101 mg/dL (Abnormal) Range: 0-99 VLDL Cholesterol Bharat 28 mg/dL (Normal) Range: 5-40 HDL Cholesterol 42 mg/dL (Normal) Triglycerides 139 mg/dL (Normal) Range: 0-149 Cholesterol, Total 171 mg/dL (Normal) Range: 100-199 1-Azd-090968:59 CBC W/AUTO DIFF WBC (47125) Comments: PATIENT WAS FASTINGPERFORMED BY: Gaopeng70 [facility]bayHarris [facility] Hospital [id number] Immature Grans (Abs) 0.0 {x10E3/uL} (Normal) Range: [...] (Normal) Range: 3.4-10.8 :51 HgA1C , Office (95584) HgA1C , Office 7.0 % (Normal) Range: 4.6 - 7.1 :51 Blood Glucose , Office (55682) Blood Glucose , Office 197 (Normal) 5-Hge-026775:35 Basic Metabolic Profile (BMP) Comments: 'TROP' Serial specimen #1, #2, #3, or #4: [facility] Tysknoxsjp[address] [place], [place], [address] GAP 11 (Normal) Range: 5-15 CO2 25.0 [...] 126 mg/dLsuggests DIABETES MELLITUS per A.D.A. criteria. 3-Xka-368650:35 BNP,B-Type NATRIURETIC PEPTIDE Comments: [facility] [address] [place], [place], [address] B-TYPE KAE PEP 1319.4 pg/mL (Abnormal) Range: 0-100 :35 CBC W/Diff, Automated Comments: [facility] [address] [place], [place], [address] Absolute Lymph 0.87 {X10_3/ul} (Normal) Range: 0.83-4.51 [...] 4.6-6.2 WBC 12.7 K/mm3 (Abnormal) Range: 4.4-11.0 0-Kbg-430175:35 Troponin-I Comments: 'TROP' Serial specimen #1, #2, #3, or #4: [address] [place] [address] [address] [place], [place], [address] TROPONIN-I 0.03 ng/mL (Normal) Comments: TROPONIN-I EXPECTED VALUES <0.05 NEGATIVE 0.06 - 0.59 AT RISK OF NE > OR = 0.60 SUGGEST NE 4-Gok-070160:35 Microscopic Examination Comments: PATIENT WAS FASTINGPERFORMED BY: [facility]ariCardinal [facility] [id number] Bacteria Few (Normal) Mucus Threads Present (Normal) Cast Type Hyaline casts (Normal) Casts Present {/lpf} (Abnormal) Epithelial Cells (non renal) None seen {/hpf} (Normal) Range: 0 - 10 RBC 0-2 {/hpf} (Normal) Range: 0 - 2 WBC 0-5 {/hpf} (Normal) Range: 0 - 5 7-Zvh-464829:00 PSA (PROSTATE SPECIFIC Comments: send copy to dr bianchi; PATIENT NOT FASTINGPERFORMED BY: [employer] [place] JDCPhosphateHarris Regional Hospital [id number] ANTIGEN) (V76.44) Prostate Specific Ag, 2.1 ng/mL (Normal) Range: 0.0-4.0 Serum Comments: Temo ECLIA methodology. .According to the [place] [employer], Serum PSA shoulddecrease and remain at undetectable levels after radicalprostatectomy. The AUA defines biochemical recurrence as an initialPSA value 0.2 ng/mL or greater followed by a subsequent confirmatoryPSA value 0.2 ng/mL or greater.Values obtained with d ifferent assay methods or kits cannot be usedinterchangeably. Results cannot be interpreted as absolute evidenceof the presence or absence of malignant disease. :35 TSH (85637) Comments: PATIENT WAS FASTINGPERFORMED BY: [employer] [id number] TSH 4.070 {uIU/mL} (Normal) Range: 0.450-4.500 :35 URINALYSIS, W/ MICRO (58699) Comments: PATIENT WAS FASTINGPERFORMED BY: Iridian TechnologiesHarris Regional Hospital [id number]; can review at next appt Microscopic Examination See below: (Normal) Comments: Microscopic was indicated and was performed. Nitrite, Urine Negative (Normal) Urobilinogen,Semi-Qn 1.0 mg/dL (Normal) Range: 0.2-1.0 Bilirubin Negative (Normal) Occult Blood Negative (Normal) Ketones Negative (Normal) Glucose Negative (Normal) Protein 1+ (Abnormal) WBC Esterase Negative (Normal) Appearance Clear (Normal) Urine-Color Yellow (Normal) pH 7.0 (Normal) Range: 5.0-7.5 Specific [place] 1.013 (Normal) Range: 1.005-1.030 :35 MICROALBUMIN: CREATININE RATIO Comments: PATIENT WAS FASTINGPERFORMED BY: [employer] [id number] (48396) AND (19205) Microalb/Creat Ratio 136.1 {mg/g_creat} (Abnormal) Range: 0.0-30.0 Microalbumin, Urine 118.3 ug/mL (Normal) Creatinine, Urine 86.9 mg/dL (Normal) :35 METABOLIC PANEL, COMPREHENSIVE Comments: PATIENT WAS FASTINGPERFORMED BY: [employer] [id number] (12674) ALT (SGPT) 10 [iU]/L (Normal) Range: 0-44 [...] Glucose, Serum 126 mg/dL (Abnormal) Range: 65-99 1-Ibj-780336:35 LIPID PANEL (05053) Comments: PATIENT WAS FASTINGPERFORMED BY: LabAscension Borgess Lee Hospital6370 [facility] [id number] LDL/HDL Ratio 2.4 {ratio_units} (Normal) Range: 0.0-3.6 Comments: LDL/HDL Ratio Men Women 1/2 Avg.Risk 1.0 1.5 Av g.Risk 3.6 3.2 2X Avg.Risk 6.2 5.0 3X Avg.Risk 8.0 6.1 LDL Cholesterol Calc 99 mg/dL (Normal) Range: 0-99 VLDL Cholesterol Bharat 25 mg/dL (Normal) Range: 5-40 HDL Cholesterol 41 mg/dL (Normal) Triglycerides 123 mg/dL (Normal) Range: 0-149 Cholesterol, Total 165 mg/dL (Normal) Range: 100-199 1-Peo-483809:35 CBC W/AUTO DIFF WBC (34808) Comments: PATIENT WAS FASTINGPERFORMED BY: [employer] [facility] [id number] Immature Grans (Abs) 0.0 {x10E3/uL} (Normal) Range: [...] 4.14-5.80 WBC 6.7 {x10E3/uL} (Normal) Range: 3.4-10.8 6-Hsw-743955:35 CALCIFIDIOL (72209) VIT D 25 Comments: PATIENT WAS FASTINGPERFORMED BY: [employer] Hgyeyz7167 [facility] [id number] Vitamin D, 25-Hydroxy 37.2 ng/mL (Normal) Range: 30.0-100.0 Comments: Vitamin D deficiency has been defined by the [place] ofMedicine and an Endocrine Society practice guideline as alevel of serum 25-OH vitamin D less than 20 ng/mL (1,2).The Endocrine Society went on to further define vitamin Dinsufficiency as a level between 21 and 29 ng/mL (2).1. IOM ([place] of Medicine). 2010. Dietary reference intakes for calcium and D. [place]: The National Academies Press.2. Marcelle MF, Justin PURCELL, Amira ELIAS, et al. Evaluation, treatment, and prevention of vitamin D deficiency: an Endocrine Society clinical practice guideline. JCEM. 2010; 96(7):1911-30. 6-Eld-757776:21 HgA1C , Office (83817) HgA1C , Office 6.2 % (Normal) Range: 4.6 - 7.1 :21 Blood Glucose , Office (32074) Blood Glucose , Office 162 (Normal) 8-Hwz-216188:56 Microscopic Examination Comments: PATIENT WAS FASTINGPERFORMED BY: Kashmi LabCoWise Intervention Services Mgjjvg8711 [facility] [place] [id number] Bacteria None seen (Normal) Mucus Threads Present (Normal) Cast Type Hyaline casts (Normal) Casts Present {/lpf} (Abnormal) Epithelial Cells (non renal) 0-10 {/hpf} (Normal) Range: 0 - 10 RBC 0-2 {/hpf} (Normal) Range: 0 - 2 WBC None seen {/hpf} (Normal) Range: 0 - 5 :56 CALCIFIDIOL (56325) VIT D 25 Comments: PATIENT WAS FASTINGPERFORMED BY: Kashmi LabCoW[facility] Intervention Services Qxwmuc8342 [place] [facility] [place] [id number] Vitamin D, 25-Hydroxy 34.6 ng/mL (Normal) Range: 30.0-100.0 Comments: Vitamin D deficiency has been defined by the [place] ofMedicine and an Endocrine Society practice guideline as alevel of serum 25-OH vitamin D less than 20 ng/mL (1,2).The Endocrine Society went on to further define vitamin Dinsufficiency as a level between 21 and 29 ng/mL (2).1. IOM ([place] of Medicine). 2010. Dietary reference intakes for calcium and D. [place]: The National Academies Press.2. Marcelle MF, Justin [place], Amira ELIAS, et al. Evaluation, treatment, and prevention of vitamin D deficiency: an Endocrine Society clinical practice guideline. JCEM. 2010; 96(7):1911-30. 3-Wha-522354:56 TSH (22853) Comments: PATIENT WAS FASTINGPERFORMED BY: [employer] [facility] [id number] TSH 5.530 {uIU/mL} (Abnormal) Range: 0.450-4.500 :56 URINALYSIS, W/ MICRO (74617) Comments: PATIENT WAS FASTINGPERFORMED BY: [employer] [facility] [id number] Microscopic Examination See below: (Normal) Comments: Microscopic was indicated and was performed. Microscopic Examination MICRON (Normal) Comments: Microscopic follows if indicated. Nitrite, Urine Negative (Normal) Urobilinogen,Semi-Qn 1.0 mg/dL (Normal) Range: 0.2-1.0 Bilirubin Negative (Normal) Occult Blood Negative (Normal) Ketones Negative (Normal) Glucose Negative (Normal) Protein Negative (Normal) WBC Esterase Negative (Normal) Appearance Clear (Normal) Urine-Color Yellow (Normal) pH 7.0 (Normal) Range: 5.0-7.5 Specific [place] 1.009 (Normal) Range: 1.005-1.030 :56 MICROALBUMIN: CREATININE RATIO Comments: PATIENT WAS FASTINGPERFORMED BY: [employer] Vfkwoy6004 [facility] [id number] (96706) AND (42973) Microalb/Creat Ratio <12.1 {mg/g_creat} (Normal) Range: 0.0-30.0 Microalbumin, Urine <3.0 ug/mL (Normal) Creatinine, Urine 24.7 mg/dL (Normal) :56 METABOLIC PANEL, COMPREHENSIVE Comments: PATIENT WAS FASTINGPERFORMED BY: [employer] Ctrgku3723 [facility] [id number] (34410) ALT (SGPT) 8 [iU]/L (Normal) Range: 0-44 [...] Glucose, Serum 109 mg/dL (Abnormal) Range: 65-99 3-Ioe-281085:56 CBC W/AUTO DIFF WBC (46985) Comments: PATIENT WAS FASTINGPERFORMED BY: LabCoSt. Joseph's Regional Medical CenterBotaub0008 [facility] [id number] Immature Grans (Abs) 0.0 {x10E3/uL} (Normal) Range: [...] 4.14-5.80 WBC 6.9 {x10E3/uL} (Normal) Range: 3.4-10.8 7-Fyr-745620:56 LIPID PANEL (47471) Comments: PATIENT WAS FASTINGPERFORMED BY: [facility] Aerawf8857 [facility] [id number] LDL/HDL Ratio 2.3 {ratio_units} (Normal) Range: 0.0-3.6 [...] (Normal) Range: 100-199 :36 HgA1C , Office (80182) HgA1C , Office 6.4 % (Normal) Range: 4.6 - 7.1 :36 Blood Glucose , Office (02487) Blood Glucose , Office 129 (Normal) :20 Blood Glucose , Office (40707) Blood Glucose , Office 111 (Normal) 04-Nhz-910949:20 HgA1C , Office (97679) HgA1C , Office 6.4 % (Normal) Range: 4.6 - 7.1 :25 CBC W/AUTO DIFF WBC (87900) Comments: PATIENT NOT FASTINGPERFORMED BY: LabCoSt. Joseph's Regional Medical CenterKotnbr5402 [facility] [id number] Immature Grans (Abs) 0.0 {x10E3/uL} (Normal) Range: [...] 4.14-5.80 WBC 6.0 {x10E3/uL} (Normal) Range: 3.4-10.8 63-Rqv-585341:25 METABOLIC PANEL, COMPREHENSIVE Comments: PATIENT NOT FASTINGPERFORMED BY: LabCoSt. Joseph's Regional Medical CenterCabnyo0121 [facility] [id number] (26358) ALT (SGPT) 13 [iU]/L (Normal) Range: 0-44 [...] Glucose, Serum 158 mg/dL (Abnormal) Range: 65-99 5-Fcd-562625:03 Basic Metabolic Profile (BMP) Comments: 'TROP' Serial specimen #1, #2, #3, or #4: [facility] Qzapombeoc[address] [place], [address] GAP 6 (Normal) Range: 5-15 [...] 126 mg/dLsuggests DIABETES MELLITUS per A.D.A. criteria. 4-Lfw-166424:03 BNP,B-Type NATRIURETIC PEPTIDE Comments: [facility] [address]ygom[address] [place], [address] B-TYPE KAE PEP 732.8 pg/mL (Abnormal) Range: 0-100 :03 CBC W/Diff, Automated Comments: [facility] [address]kfunpa[address] [place], [address] Absolute Lymph 0.93 {X10_3/ul} (Normal) [...] 4.6-6.2 WBC 6.8 K/mm3 (Normal) Range: 4.4-11.0 1-Lta-631620:03 Liver Profile Comments: 'TROP' Serial specimen #1, #2, #3, or #4: [facility] [address]feqfhhltq[address] [place], [place], [address] D BILI 0.39 mg/dL (Abnormal) Range: 0.00-0.30 T BILI 1.40 mg/dL (Abnormal) Range: 0.20-1.00 ALT 16 U/L (Normal) Range: 12-78 ALK P 90 U/L (Normal) Range: 50-136 AST 18 U/L (Normal) Range: 15-37 GLOB 3.7 g/dL (Abnormal) Range: 2.3-3.5 ALB 3.4 g/dL (Normal) Range: 3.4-5.0 T PROT 7.1 g/dL (Normal) Range: 6.4-8.2 8-Lak-733976:03 Troponin-I Comments: 'TROP' Serial specimen #1, #2, #3, or #4: [facility] Apyafererh37[address] [place], [address] TROPONIN-I < 0.02 ng/mL (Normal) Comments: TROPONIN-I EXPECTED VALUES <0.05 NEGATIVE 0.06 - 0.59 AT RISK OF NE > OR = 0.60 SUGGEST NE 6-Yxk-645874:07 Urinalysis, Office (26366) UA - LEUKOCYTE ESTERASE Negative (Normal) UA - NITRITE Negative (Normal) URINE UROBILINGN KATELIN TIMED 4 mg/dL (Normal) UA - PROTEIN 30 mg/dL (Normal) UA - PH 7 (Normal) UA - BLOOD Negative (Normal) UA - SPECIFIC GRAVITY 1.020 (Normal) UA - KETONES Negative mg/dL (Normal) UA - BILIRUBIN Negative (Normal) UA - GLUCOSE Negative (Normal) 47-Igs-100545:59 HgA1C , Office (63654) HgA1C , Office 6.3 % (Normal) Range: 4.6 - 7.1 41-Jsq-324608:59 Blood Glucose , Office (74260) Blood Glucose , Office 177 (Normal) 43-Xvv-55267:44 Basic Metabolic Profile (BMP) Comments: [facility] Macsksovno[address] [place], [address] GAP 7 (Normal) Range: 5-15 [...] 126 mg/dLsuggests DIABETES MELLITUS per A.D.A. criteria. 6-Thg-316222:32 Microscopic Examination Comments: PATIENT NOT FASTINGPERFORMED BY: [employer] Hakvjm6673 [facility] [id number] Bacteria None seen (Normal) Mucus Threads Present (Normal) Cast Type Hyaline casts (Normal) Casts Present {/lpf} (Abnormal) Epithelial Cells (non renal) 0-10 {/hpf} (Normal) Range: 0 - 10 RBC 0-2 {/hpf} (Normal) Range: 0 - 2 WBC 0-5 {/hpf} (Normal) Range: 0 - 5 2-Dky-443099:32 CALCIFIDIOL (06534) VIT D 25 Comments: PATIENT NOT FASTINGPERFORMED BY: [facility] Tqlhdb4937 [facility] [id number] Vitamin D, 25-Hydroxy 34.1 ng/mL (Normal) Range: 30.0-100.0 Comments: Vitamin D deficiency has been defined by the [place] ofMedicine and an Endocrine Society practice guideline as alevel of serum 25-OH vitamin D less than 20 ng/mL (1,2).The Endocrine Society went on to further define vitamin Dinsufficiency as a level between 21 and 29 ng/mL (2).1. IOM ([place] of Medicine). 2010. Dietary reference intakes for calcium and D. [place]: The National Academies Press.2. Marcelle MF, Justin PURCELL, Amira ELIAS, et al. Evaluation, treatment, and prevention of vitamin D deficiency: an Endocrine Society clinical practice guideline. JCEM. 2010; 96(7):1911-30. :32 TSH (81231) Comments: PATIENT NOT FASTINGPERFORMED BY: eVoterAscension Borgess Lee Hospital6370 [facility] [id number] TSH 5.190 {uIU/mL} (Abnormal) Range: 0.450-4.500 :32 URINALYSIS, W/ MICRO (77154) Comments: PATIENT NOT FASTINGPERFORMED BY: eVoterAscension Borgess Lee Hospital6370 [facility] [id number] Microscopic Examination See below: (Normal) Comments: Microscopic was indicated and was performed. Microscopic Examination MICRON (Normal) Comments: Microscopic follows if indicated. Nitrite, Urine Negative (Normal) Urobilinogen,Semi-Qn 1.0 mg/dL (Normal) Range: 0.2-1.0 Bilirubin Negative (Normal) Occult Blood Negative (Normal) Ketones Negative (Normal) Glucose Negative (Normal) Protein Trace (Normal) WBC Esterase Negative (Normal) Appearance Clear (Normal) Urine-Color Yellow (Normal) pH 6.5 (Normal) Range: 5.0-7.5 Specific [place] 1.019 (Normal) Range: 1.005-1.030 :32 MICROALBUMIN: CREATININE RATIO Comments: PATIENT NOT FASTINGPERFORMED BY: eVoterAscension Borgess Lee Hospital6370 [facility] [id number] (04543) AND (70876) Microalb/Creat Ratio 43.8 {mg/g_creat} (Abnormal) Range: 0.0-30.0 Microalbumin, Urine 51.0 ug/mL (Normal) Creatinine, Urine 116.5 mg/dL (Normal) :32 METABOLIC PANEL, COMPREHENSIVE Comments: PATIENT NOT FASTINGPERFORMED BY: eVoterAscension Borgess Lee Hospital6370 [facility] [id number] (59539) ALT (SGPT) 13 [iU]/L (Normal) Range: 0-44 [...] Glucose, Serum 122 mg/dL (Abnormal) Range: 65-99 7-Aaa-531028:32 LIPID PANEL (35122) Comments: PATIENT NOT FASTINGPERFORMED BY: LabCoSt. Joseph's Regional Medical CenterKexpgs8190 [facility] [id number] LDL/HDL Ratio 1.9 {ratio_units} (Normal) Range: 0.0-3.6 [...] Cholesterol, Total 145 mg/dL (Normal) Range: 100-199 0-Njp-230008:32 CBC W/AUTO DIFF WBC Comments: PATIENT NOT FASTINGPERFORMED BY: [employer] Ahtyda4602 [facility] [id number] Information: [id number] (21308) Immature Grans (Abs) 0.0 {x10E3/uL} (Normal) Range: [...] 4.14-5.80 WBC 6.5 {x10E3/uL} (Normal) Range: 3.4-10.8 4-Wkt-407910:32 PSA (PROSTATE SPECIFIC Comments: send copy to dr mast; PATIENT NOT FASTINGPERFORMED BY: [employer] Jewhlz2276 [facility] [id number] ANTIGEN) (V76.44) Prostate Specific Ag, 2.1 ng/mL (Normal) Range: 0.0-4.0 Serum Comments: Temo ECLIA methodology. .According to the [place] [employer], Serum PSA shoulddecrease and remain at undetectable levels after radicalprostatectomy. The AUA defines biochemical recurrence as an initialPSA value 0.2 ng/mL or greater followed by a subsequent confirmatoryPSA value 0.2 ng/mL or greater.Values obtained with d ifferent assay methods or kits cannot be usedinterchangeably. Results cannot be interpreted as absolute evidenceof the presence or absence of malignant disease. 33-Rfh-439829:20 Metabolic Panel, Basic Comments: PATIENT NOT FASTINGPERFORMED BY: LabCoSt. Joseph's Regional Medical CenterHolyzt8097 [facility] [id number] Information: [id number] (43332) Calcium, Serum 9.0 mg/dL (Normal) Range: 8.6-10.2 [...] Glucose, Serum 90 mg/dL (Normal) Range: 65-99 5-Hkd-132487:26 BNP,B-Type NATRIURETIC PEPTIDE Comments: [facility] [address] [place], [address] B-TYPE KAE PEP 247.5 pg/mL (Abnormal) Range: 0-100 1-Ktw-359339:26 CBC W/Diff, Automated Comments: [facility] [address] [place], [address] Absolute Lymph 0.87 {X10_3/ul} (Normal) [...] 4.6-6.2 WBC 8.2 K/mm3 (Normal) Range: 4.4-11.0 6-Oew-739144:08 Basic Metabolic Profile (BMP) Comments: [facility] [address]gutxywh[address] [place], [address] GAP 11 (Normal) Range: 5-15 CO2 30.0 [...] <126 mg/dLsuggests IMPAIRED HOMEOSTASIS per A.D.A. criteria. 2-Wdr-815051:00 Basic Metabolic Profile (BMP) Comments: [facility] [address] [place], [place], [id number]) GAP 12 (Normal) Range: 5-15 CO2 26.0 [...] 126 mg/dLsuggests DIABETES MELLITUS per A.D.A. criteria. 25-Sse-299173:33 Basic Metabolic Profile (BMP) Comments: [facility] [address] [place], [place], [address] GAP 5 (Normal) Range: 5-15 CO2 26.0 [...] 126 mg/dLsuggests DIABETES MELLITUS per A.D.A. criteria. 46-Gpc-075553:07 Basic Metabolic Profile (BMP) Comments: [facility] Pkxyxrtkbs9946 [facility] [place], [address] GAP 0 (Abnormal) Range: 5-15 CO2 30.0 [...] 7-18 GLU 101 mg/dL (Normal) Range: 70-110 02-Bdm-183141:07 BNP,B-Type NATRIURETIC PEPTIDE Comments: [facility] Kvjwxayesm5504 [facility]. [place], [place], [address] B-TYPE KAE PEP 560.9 pg/mL (Abnormal) Range: 0-100 :04 ALBUMIN SERUM (37757) Comments: PATIENT NOT FASTINGPERFORMED BY: LabCoSt. Joseph's Regional Medical CenterHveptr5088 [facility] [id number] Albumin, Serum 3.4 g/dL (Abnormal) Range: 3.5-4.8 10-Jvd-106321:04 BASIC METABOLIC w/Ionized Comments: PATIENT NOT FASTINGPERFORMED BY: LabCoSt. Joseph's Regional Medical CenterShjzcw7127 [facility] [id number] Information: [id number] Ca++ (74089) Calcium, Serum 8.5 mg/dL (Abnormal) Range: 8.6-10.2 [...] Glucose, Serum 171 mg/dL (Abnormal) Range: 65-99 7-Mzw-145784:34 Calcium Ionized Comments: [facility] (refer to report for specific site)refer to report for address [place] phone [place] [address] Test not performed (Normal) Comments: Patient has been credited for testing not performed. Pleasehave patient return if testing is still required. :36 Anion Gap Comments: [facility] [id number] [place], [place], [id number] GAP 3 (Abnormal) Range: 5-15 1-Bhu-073735:36 BUN 18 mg/dL (Normal) Comments: [facility] [id number] [place], [place], [address] Range: 7-18 2-Fwa-734079:36 BUN/Creat Ratio Comments: [place] [address] [address]za [id number] BUN/CRE 11.0 {RATIO} (Normal) Range: 10-20 2-Rpb-101926:36 Carbon Dioxide Comments: [address] [address] CO2 30.0 mmol/L (Normal) Range: 21.0-32.0 1-Fel-358178:36 Chloride Comments: [address] [address] [address] mmol/L (Abnormal) Range: 98-107 :36 Creatinine, Serum Comments: [address] Jackson [address] CREAT,SERUM 1.64 mg/dL (Abnormal) Range: 0.70-1.30 Comments: The validity of the calculated GFR AND GFRAA in patients over70 years has not been determined. Clinical correlation isessential. :36 Glucose Comments: [address], [id number](952 GLU 157 mg/dL (Abnormal) Range: 70-110 Comments: Fasting Glucose result greater than or equal to 126 mg/dLsuggests DIABETES MELLITUS per A.D.A. criteria. :36 Potassium Comments: [address] [place] [id number] K 4.3 mmol/L (Normal) Range: 3.5-5.1 5-Ooj-472912:36 Sodium Level Comments: [address], [id number](926 NA 142 mmol/L (Normal) Range: 136-145 88-Ezi-946175:36 Urinalysis, Office (90677) UA - LEUKOCYTE ESTERASE Negative (Normal) UA - NITRITE Negative (Normal) URINE UROBILINGN KATELIN TIMED Normal mg/dL (Normal) UA - PROTEIN Negative mg/dL (Normal) UA - PH 6.0 (Normal) Comments: 5.5 UA - BLOOD Hemolyzed Trace (Normal) UA - SPECIFIC GRAVITY 1.005 (Normal) UA - KETONES Negative mg/dL (Normal) UA - BILIRUBIN Negative (Normal) UA - GLUCOSE Negative (Normal) 17-Xqy-083688:06 Metabolic Panel, Basic Comments: PATIENT NOT FASTINGPERFORMED BY: [employer] [facility] [id number] Information: [id number]; will review at next appt. (40564) Calcium, Serum 9.3 mg/dL (Normal) Range: 8.6-10.2 [...] Glucose, Serum 111 mg/dL (Abnormal) Range: 65-99 83-Oqf-469510:07 URINE DAWIT CULTURE-IDENTIFICATN Comments: PATIENT NOT FASTINGPERFORMED BY: [employer] [facility] [id number] (62124) Result 1 MUG (Normal) Comments: Mixed urogenital flora1,000 Colonies/mL Urine Culture,Comprehensive Final report (Normal) 37-Min-021552:07 URINALYSIS (17603) Comments: PATIENT NOT FASTINGPERFORMED BY: Kiva SystemsSt. Joseph's Regional Medical CenterPbmjiv5456 [facility] [id number] Information: [id number] Microscopic Examination MICNIP (Normal) Comments: Microscopic not indicated and not performed. Nitrite, Urine Negative (Normal) Urobilinogen,Semi-Qn 0.2 mg/dL (Normal) Range: 0.2-1.0 Bilirubin Negative (Normal) Occult Blood Negative (Normal) Ketones Negative (Normal) Glucose Negative (Normal) Protein Negative (Normal) WBC Esterase Negative (Normal) Appearance Clear (Normal) Urine-Color Yellow (Normal) pH 6.0 (Normal) Range: 5.0-7.5 Specific [place] 1.010 (Normal) Range: 1.005-1.030 4-Okh-474417:02 Basic Metabolic Profile (BMP) Comments: [facility] [address] [place], [address] GAP 9 (Normal) Range: 5-15 [...] 126 mg/dLsuggests DIABETES MELLITUS per A.D.A. criteria. 8-Euj-867035:02 BNP,B-Type NATRIURETIC PEPTIDE Comments: [facility] [address] [place], [address] B-TYPE KAE PEP 202.1 pg/mL (Abnormal) Range: 0-100 88-Zxn-478818:55 BNP,B-Type NATRIURETIC PEPTIDE Comments: [facility] [address] [place], [address] B-TYPE KAE PEP 288.3 pg/mL (Abnormal) Range: 0-100 17-Aae-223322:48 BNP,B-Type NATRIURETIC PEPTIDE Comments: [facility] [address] [place], [place], [address] B-TYPE KAE PEP 231.4 pg/mL (Abnormal) Range: 0-100 96-Ycr-195590:33 ASSAY, NATIURETIC PEPTIDE Comments: PATIENT NOT FASTINGPERFORMED BY: [facility] Ntbvzy2186 [facility] [id number] Information: [id number] (13927) B-Type Natriuretic Peptide 296.5 pg/mL (Abnormal) Range: 0.0-100.0 07-Mni-737243:15 Basic Metabolic Profile (BMP) Comments: Serial Specimen #1, #2 or #3? 1'TROP' Serial specimen #1, #2, #3, or #4: [facility] [address] [place], [place], [id number] GAP 7 (Normal) Range: 5-15 CO2 24.0 [...] 126 mg/dLsuggests DIABETES MELLITUS per A.D.A. criteria. 38-Sla-467988:15 BNP,B-Type NATRIURETIC PEPTIDE Comments: [facility] [address] [place], [place], [id number] B-TYPE KAE PEP 200.1 pg/mL (Abnormal) Range: 0-100 49-Ijb-851384:15 CBC W/Diff, Automated Comments: [facility] [address] [place], [place], [id number] Absolute Lymph 1.42 {X10_3/ul} (Normal) Range: 0.83-4.51 [...] 4.6-6.2 WBC 7.6 K/mm3 (Normal) Range: 4.4-11.0 85-Hcj-830046:15 CK-MB Quantitative and Index Comments: Serial Specimen #1, #2 or #3? 1'TROP' Serial specimen #1, #2, #3, or #4: [address] [place] [address] [address] [place], [address] CKRI 1.6 % (Abnormal) Range: 0.0-1.4 Comments: RELATIVE INDEX >1.5% IS PRESUMPTIVELY POSITIVE CPKMB 3.3 ng/mL (Normal) Range: 0.0-5.0 Comments: CK-MB and RI Interpretation MB Relative Index Non-AMI <or= 5 NA Indeterminate > 5 <or= 4 AMI > 5 > 4 CPK TOTAL 208 U/L (Normal) Range: 39-308 18-Vrq-306877:15 Troponin-I Comments: Serial Specimen #1, #2 or #3? 1'TROP' Serial specimen #1, #2, #3, or #4: [address] [place] [address] [address] [place], [address] TROPONIN-I 0.03 ng/mL (Normal) Comments: TROPONIN-I EXPECTED VALUES <0.05 NEGATIVE 0.06 - 0.59 AT RISK OF NE > OR = 0.60 SUGGEST NE 72-Amk-757854:06 HgA1C , Office (83597) HgA1C , Office 8.0 % (Abnormal) Range: 4.6 - 7.1 07-Fvl-227669:06 Blood Glucose , Office (33441) Blood Glucose , Office 143 (Normal) 1-Nsv-266737:12 BUN 15 mg/dL (Normal) Comments: Test performed at:[facility] [address] [place] [address] Range: 7-18 7-Eby-437417:12 Partial Thromboplast Time Comments: Test performed at:[facility] [address] [place] [address] PTT 25.9 s (Normal) Range: 24.1-36.2 6-Has-076792:12 Platelet Count Comments: Test performed at:[facility] [address] [place] [address] PLT 243 K/mm3 (Normal) Range: 150-450 2-Mpu-063737:12 Prothrombin Time w/INR Comments: Test performed at:[facility] [address] [place] [address] INR 0.9 (Normal) PROTIME 12.3 s (Normal) Range: 11.7-14.9 1-Egn-795862:12 Serum Creatinine AND GFR Comments: Test performed at:[facility] [address] [place] [address] CREAT,SERUM 1.3 mg/dL (Normal) Range: 0.8-1.3 :09 HgA1C , Office (49682) HgA1C , Office 7.1 % (Normal) Range: 4.6 - 7.1 :09 Blood Glucose , Office (87524) Blood Glucose , Office 141 (Normal) :43 BUN 14 mg/dL (Normal) Range: 7-18 :43 CRE CREAT 1.1 mg/dL (Normal) Range: 0.8-1.3 :43 PLT 184 K/mm3 (Normal) Range: 150-450 :43 PT INR 0.9 (Normal) PTP 12.4 s (Normal) Range: 11.7-14.9 Comments: Please note revised PROTIME reference range uhcmjmnbc74/14/15. :43 PTT 26.3 s (Normal) Range: 24.1-36.2 03-Jib-391651:25 HgA1C , Office (69798) HgA1C , Office 6.7 % (Normal) Range: 4.6 - 7.1 01-Qyw-564489:25 Blood Glucose , Office (29998) Blood Glucose , Office 140 (Normal) 33-Mvx-914182:25 Microscopic Examination Comments: PATIENT WAS FASTINGPERFORMED BY: LabCoSt. Joseph's Regional Medical CenterEpxovu1835 [facility] [id number] Bacteria None seen (Normal) Mucus Threads Present (Normal) Epithelial Cells (non renal) None seen {/hpf} (Normal) Range: 0 - 10 RBC 0-3 {/hpf} (Normal) Range: 0 - 3 Comments: Effective September 04, 2013 the reference interval for RBC will be changing to: 0 - 2 /hpf. WBC 0-5 {/hpf} (Normal) Range: 0 - 5 73-Ypf-418260:47 LIPID PANEL (09938) Comments: PATIENT WAS FASTINGPERFORMED BY: [employer] [facility] [id number] LDL/HDL Ratio 2.7 {ratio_units} (Normal) Range: 0.0-3.6 LDL Cholesterol Calc 90 mg/dL (Normal) Range: 0-99 HDL Cholesterol 33 mg/dL (Abnormal) Comments: According to ATP-III Guidelines, HDL-C >59 mg/dL is considered anegative risk factor for CHD. VLDL Cholesterol Bharat 27 mg/dL (Normal) Range: 5-40 Triglycerides 133 mg/dL (Normal) Range: 0-149 Cholesterol, Total 150 mg/dL (Normal) Range: 100-199 :47 Vitamin D Hydroxy (03984) Comments: PATIENT WAS FASTINGPERFORMED BY: [employer] Pynnpy5684 [facility] [id number] Vitamin D, 25-Hydroxy 28.7 ng/mL (Abnormal) Range: 30.0-100.0 Comments: Vitamin D deficiency has been defined by the [place] of[place]icine and an Endocrine Society practice guideline as alevel of serum 25-OH vitamin D less than 20 ng/mL (1,2).The Endocrine Society went on to further define vitamin Dinsufficiency as a level between 21 and 29 ng/mL (2).1. IOM ([place] of Medicine). 2010. Dietary reference intakes for calcium and D. [place]: The National Academies Press.2. Marcelle MF, Justin [place], Amira ELIAS, et al. Evaluation, treatment, and prevention of vitamin D deficiency: an Endocrine Society clinical practice guideline. JCEM. 2010; 96(7):1911-30.; ADDENDA: appt 21-Aug-201311:47 TSH (53348) Comments: PATIENT WAS FASTINGPERFORMED BY: [employer] Tqxaso4974 [facility] [id number] TSH 1.700 {uIU/mL} (Normal) Range: 0.450-4.500 16-Tke-514970:47 URINALYSIS, W/ MICRO (23309) Comments: PATIENT WAS FASTINGPERFORMED BY: Kiva SystemsSt. Joseph's Regional Medical CenterZdmqxn5771 [facility] [id number] Microscopic Examination See below: (Normal) Microscopic Examination MICRON (Normal) Comments: Microscopic follows if indicated. Nitrite, Urine Negative (Normal) Urobilinogen,Semi-Qn 1.0 mg/dL (Normal) Range: 0.0-1.9 Bilirubin Negative (Normal) Occult Blood Negative (Normal) Ketones Negative (Normal) Glucose Negative (Normal) Protein Negative (Normal) WBC Esterase Negative (Normal) Appearance Clear (Normal) Urine-Color Yellow (Normal) pH 6.0 (Normal) Range: 5.0-7.5 Specific [place] 1.019 (Normal) Range: 1.005-1.030 94-Oyn-891864:47 MICROALBUMIN: CREATININE RATIO Comments: PATIENT WAS FASTINGPERFORMED BY: Axigen MessagingSt. Joseph's Regional Medical CenterJwedml7230 [facility] [id number] (57238) AND (02274) Microalb/Creat Ratio 5.9 {mg/g_creat} (Normal) Range: 0.0-30.0 Microalbumin, Urine 10.0 ug/mL (Normal) Range: 0.0-17.0 Creatinine, Urine 169.3 mg/dL (Normal) Range: 22.0-328.0 82-Ipw-932533:47 METABOLIC PANEL, COMPREHENSIVE Comments: PATIENT WAS FASTINGPERFORMED BY: Kiva SystemsSt. Joseph's Regional Medical CenterMrmqyv9609 [facility] [id number] (57203) ALT (SGPT) 13 [iU]/L (Normal) Range: 0-44 [...] Glucose, Serum 118 mg/dL (Abnormal) Range: 65-99 22-Egt-986891:47 CBC WITH MANUAL DIFF Comments: PATIENT WAS FASTINGPERFORMED BY: [facility] Lzrhah9564 [facility] [id number] Information: [id number] (04495) Immature Grans (Abs) 0.0 {x10E3/uL} (Normal) Range: [...] (Normal) Range: 3.4-10.8 :38 HgA1C , Office (88392) HgA1C , Office 6.2 % (Normal) Range: 4.6 - 7.1 87-Lbt-304646:38 Blood Glucose , Office (42034) Blood Glucose , Office 119 (Normal) 54-Vrg-795177:28 HgA1C , Office (71523) HgA1C , Office 6.7 % (Normal) Range: 4.6 - 7.1 74-Uxo-753299:28 Blood Glucose , Office (24106) Blood Glucose , Office 131 (Normal) 31-Zhc-502717:08 MICROALBUMIN: CREATININE RATIO Comments: PATIENT WAS FASTINGPERFORMED BY: Gaopeng70 [facility]bayHarris [facility] Hospital [id number] (24134) AND (55812) Microalb/Creat Ratio 14.3 {mg/g_creat} (Normal) Range: 0.0-30.0 Microalbumin, Urine 24.5 ug/mL (Abnormal) Range: 0.0-17.0 Creatinine, Urine 171.3 mg/dL (Normal) Range: 22.0-328.0 04-Avf-694429:46 Microscopic Examination Comments: PATIENT NOT FASTINGPERFORMED BY: Iridian TechnologiesHarris Regional Hospital [id number] Bacteria Few (Normal) Mucus Threads Present (Normal) Epithelial Cells (non renal) 0-10 {/hpf} (Normal) Range: 0 - 10 RBC 0-3 {/hpf} (Normal) Range: 0 - 3 WBC 0-5 {/hpf} (Normal) Range: 0 - 5 :46 TSH (91587) Comments: PATIENT NOT FASTINGPERFORMED BY: Kiva SystemsRUSTBvyrct6137 [facility] [id number] TSH 2.720 {uIU/mL} (Normal) Range: 0.450-4.500 :46 URINALYSIS, W/ MICRO (20466) Comments: PATIENT NOT FASTINGPERFORMED BY: eVoterAscension Borgess Lee Hospital6370 [facility] [id number] Microscopic Examination See below: (Normal) Microscopic Examination MICRON (Normal) Comments: Microscopic follows if indicated. Nitrite, Urine Negative (Normal) Urobilinogen,Semi-Qn 1.0 mg/dL (Normal) Range: 0.0-1.9 Bilirubin Negative (Normal) Occult Blood Negative (Normal) Ketones Negative (Normal) Glucose Negative (Normal) Protein Negative (Normal) WBC Esterase Negative (Normal) Appearance Clear (Normal) Urine-Color Yellow (Normal) pH 6.0 (Normal) Range: 5.0-7.5 Specific [place] 1.015 (Normal) Range: 1.005-1.030 :46 MICROALBUMIN: CREATININE RATIO Comments: PATIENT NOT FASTINGPERFORMED BY: Kiva SystemsSt. Joseph's Regional Medical CenterHhjpgu6898 [facility] [id number] (36411) AND (95952) Microalb/Creat Ratio 10.0 {mg/g_creat} (Normal) Range: 0.0-30.0 Microalbumin, Urine 12.6 ug/mL (Normal) Range: 0.0-17.0 Creatinine, Urine 125.8 mg/dL (Normal) Range: 22.0-328.0 :46 METABOLIC PANEL, COMPREHENSIVE Comments: PATIENT NOT FASTINGPERFORMED BY: Kiva SystemsSt. Joseph's Regional Medical CenterLihdqf3960 [facility] [id number] (77846) ALT (SGPT) 18 [iU]/L (Normal) Range: 0-44 [...] Glucose, Serum 116 mg/dL (Abnormal) Range: 65-99 17-Vki-099170:46 LIPID PANEL (43344) Comments: PATIENT NOT FASTINGPERFORMED BY: Zuberance6370 [facility]irobayHarris Regional Hospital [id number] LDL/HDL Ratio 2.1 {ratio_units} (Normal) Range: 0.0-3.6 LDL Cholesterol Calc 94 mg/dL (Normal) Range: 0-99 VLDL Cholesterol Bharat 31 mg/dL (Normal) Range: 5-40 HDL Cholesterol 44 mg/dL (Normal) Comments: According to ATP-III Guidelines, HDL-C >59 mg/dL is considered anegative risk factor for CHD. Triglycerides 155 mg/dL (Abnormal) Range: 0-149 Cholesterol, Total 169 mg/dL (Normal) Range: 100-199 11-Hfd-414838:46 CBC WITH MANUAL DIFF Comments: PATIENT NOT FASTINGPERFORMED BY: Zuberance6370 GracenoteSentara Albem[facility] Center [id number] Information: [id number] (85552) Immature Grans (Abs) 0.0 {x10E3/uL} (Normal) Range: [...] (Normal) Range: 4.0-10.5 :38 HgA1C , Office (66207) HgA1C , Office 6.9 % (Normal) Range: 4.6 - 7.1 :38 Blood Glucose , Office (80612) Blood Glucose , Office 124 (Normal) :08 HgA1C , Office (60219) HgA1C , Office 6.5 % (Normal) Range: 4.6 - 7.1 :10 Blood Glucose , Office (06005) Blood Glucose , Office 129 (Normal) 11-Yer-758274:08 LIPID PANEL (22589) Comments: PATIENT WAS FASTINGPERFORMED BY: Kiva SystemsSt. Joseph's Regional Medical CenterJdpyel8907 [facility] [id number] LDL/HDL Ratio 2.2 {ratio_units} (Normal) Range: 0.0-3.6 LDL Cholesterol Calc 97 mg/dL (Normal) Range: 0-99 VLDL Cholesterol Bharat 28 mg/dL (Normal) Range: 5-40 HDL Cholesterol 45 mg/dL (Normal) Comments: According to ATP-III Guidelines, HDL-C >59 mg/dL is considered anegative risk factor for CHD. Triglycerides 140 mg/dL (Normal) Range: 0-149 Cholesterol, Total 170 mg/dL (Normal) Range: 100-199 37-Ndl-339356:08 HEPATIC FUNCTION PANEL Comments: PATIENT WAS FASTINGPERFORMED BY: eVoterAscension Borgess Lee Hospital6370 [facility] [id number] Information: [id number] (41631) ALT (SGPT) 25 [iU]/L (Normal) Range: 0-55 [...] (Normal) Range: 6.0-8.5 :55 HgA1C , Office (04369) HgA1C , Office 6.9 % (Normal) Range: 4.6 - 7.1 :55 Blood Glucose , Office (94680) Blood Glucose , Office 126 (Normal) 14-Yws-808876:07 Hemoglobin Glyclated (HGB Comments: PATIENT NOT FASTINGPERFORMED BY: [place] 3074670 [facility] [id number] Information: [id number] A1C) (54019) Hemoglobin A1c 6.8 % (Abnormal) Range: 4.8-5.6 Comments: . Increased risk for diabetes: 5.7 - 6.4 Diabetes: >6.4 Glycemic control for adults with diabetes: <7.0 80-Gtz-010072:58 Microscopic Examination Comments: PATIENT WAS FASTINGPERFORMED BY: LabWesley [place] 4749570 [facility] [id number] Bacteria Few (Normal) Mucus Threads Present (Normal) Epithelial Cells (non renal) None seen {/hpf} (Normal) Range: 0 - 10 RBC 0-3 {/hpf} (Normal) Range: 0 - 3 WBC 0-5 {/hpf} (Normal) Range: 0 - 5 86-Rwh-091480:58 PSA Total+% Free Comments: PATIENT WAS FASTINGPERFORMED BY: LabAscension Borgess Lee Hospital6370 [facility] [id number] Information: [id number] % Free PSA 16.3 % (Normal) Comments: [...] Comments: Temo ECLIA methodology. .According to the [place] [employer], Serum PSA shoulddecrease and remain [...] WAR (Normal) Comments: PATIENT WAS FASTINGPERFORMED BY: [employer] Fwczjv2906 [place] [facility] MedicalSent[facility] [id number] 3:58 Comments: Written Authorization Received.Authorization received from DR. STYLES [id number] by Machelle Trejo 26-Fcb-155208:07 ASSAY, PSA, FREE (26029) Comments: PATIENT NOT FASTINGPERFORMED BY: [employer] Affdvs2298 [place] Keller MedicalSent[facility] Alb[facility] [id number] Information: [id number],2ND ORDER NO DRAW F EE % Free [...] PSA, Free 2.01 ng/mL (Normal) Comments: [place] GeoOPIA methodology. Prostate Specific Ag, Serum 11.4 ng/mL (Abnormal) Range: 0.0-4.0 Comments: Temo ECLIA methodology. .According to the [place] [employer], Serum PSA shoulddecrease and remain [...] Total/Direct, Serum Comments: PATIENT NOT FASTINGPERFORMED BY: eVoterCo Fdqcrz7274 [facility] [id number] Bilirubin, Indirect 1.53 mg/dL (Abnormal) Range: 0.10-0.80 Bilirubin, Direct 0.37 mg/dL (Normal) Range: 0.00-0.40 Bilirubin, Total 1.9 mg/dL (Abnormal) Range: 0.0-1.2 :17 Prostate-Specific Ag, Serum Comments: PATIENT NOT FASTINGPERFORMED BY: LabCo Lxhwac8710 [facility] [id number] Prostate Specific Ag, 11.5 ng/mL (Abnormal) Range: 0.0-4.0 Serum Comments: SyncurityIA methodology. .According to the [place] [employer], Serum PSA shoulddecrease and remain [...] Total+% Free Comments: PATIENT NOT FASTINGPERFORMED BY: [employer] Zrxuxa9512 [facility] [id number] % Free PSA 19.7 % (Normal) Comments: [...] Comments: [place] ECLIA methodology. .According to the [place] [employer], Serum PSA shoulddecrease and remain [...] SPRCS (Normal) Comments: PATIENT NOT FASTINGPERFORMED BY: Axigen Messagingrp Nilplx1598 [place] JDCPhosphateblin [place] [id number] :17 Comments: This report has been generated by your request for additional testing.The additional request may have required some testing to be repeated.Because of analytic variability, the results may not correspond exactly to the previous report. Interpret these results appropriately. Written Authorization WAR (Normal) Comments: PATIENT NOT FASTINGPERFORMED BY: Kashmi [facility] Nbttjq6796 [place] Keller MedicalDublin [place] [id number] :17 Comments: Written Authorization Received.Authorization received from VICKI STYLES DO [id number] by Candi Salazar :01 Microscopic Examination Comments: PATIENT WAS FASTINGPERFORMED BY: CB [facility] Kodjwp8328 [place] Keller MedicalDublin [place] [id number] Bacteria None seen (Normal) Mucus Threads Present (Normal) Epithelial Cells (non renal) None seen {/hpf} (Normal) Range: 0 - 10 RBC None seen {/hpf} (Normal) Range: 0 - 3 WBC 0-5 {/hpf} (Normal) Range: 0 - 5 :01 Vitamin D Hydroxy (28153) Comments: PATIENT WAS FASTINGPERFORMED BY: CB [facility] Hufcil2060 [address] RoadDublin [place] [id number] Vitamin D, 25-Hydroxy 17.2 ng/mL (Abnormal) Range: 30.0-100.0 Comments: Vitamin D deficiency has been defined by the [place] of[place]icine and an Endocrine Society practice guideline as alevel of serum 25-OH vitamin D less than 20 ng/mL (1,2).The Endocrine Society went on to further define vitamin Dinsufficiency as a level between 21 and 29 ng/mL (2).1. IOM ([place] of Medicine). 2010. Dietary reference intakes for calcium and D. [place]: The National Academies Press.2. Marcelle MF, Justin PURCELL, Amira ELIAS, et al. Evaluation, treatment, and prevention of vitamin D deficiency: an Endocrine Society clinical practice guideline. JCEM. 2010; 96(7):1911-30. :01 PSA (PROSTATE SPECIFIC Comments: PATIENT WAS FASTINGPERFORMED BY: [facility]ariCardinal [facility] [id number] ANTIGEN) (V76.44) Prostate Specific Ag, 7.6 ng/mL (Abnormal) Range: 0.0-4.0 Serum Comments: StudyMax ECLIA methodology. .According to the [place] [employer], Serum PSA shoulddecrease and remain at undetectable levels after radicalprostatectomy. The AUA defines biochemical recurrence as an initialPSA value 0.2 ng/mL or greater followed by a subsequent confirmatoryPSA value 0.2 ng/mL or greater.Values obtained with d ifferent assay methods or kits cannot be usedinterchangeably. Results cannot be interpreted as absolute evidenceof the presence or absence of malignant disease. :01 TSH (83300) Comments: PATIENT WAS FASTINGPERFORMED BY: Zuberance6370 [facility]bayHarris [facility] Hospital [id number] TSH 2.530 {uIU/mL} (Normal) Range: 0.450-4.500 :01 URINALYSIS, W/ MICRO (14508) Comments: PATIENT WAS FASTINGPERFORMED BY: Gaopeng70 [facility]irobayHarris Regional Hospital [id number] Microscopic Examination See below: (Normal) Microscopic Examination MICRON (Normal) Comments: Microscopic follows if indicated. Nitrite, Urine Negative (Normal) Urobilinogen,Semi-Qn 0.2 mg/dL (Normal) Range: 0.0-1.9 Bilirubin Negative (Normal) Occult Blood Negative (Normal) Ketones Negative (Normal) Glucose Negative (Normal) Protein Negative (Normal) WBC Esterase Negative (Normal) Appearance Clear (Normal) Urine-Color Yellow (Normal) pH 6.5 (Normal) Range: 5.0-7.5 Specific [place] 1.015 (Normal) Range: 1.005-1.030 :01 MICROALBUMIN: CREATININE RATIO Comments: PATIENT WAS FASTINGPERFORMED BY: [employer] Ecdnux2944 [facility] [id number] (75616) AND (84096) Microalb/Creat Ratio 30.3 {mg/g_creat} (Abnormal) Range: 0.0-30.0 Microalbumin, Urine 33.5 ug/mL (Abnormal) Range: 0.0-17.0 Creatinine, Urine 110.7 mg/dL (Normal) Range: 22.0-328.0 : METABOLIC PANEL, COMPREHENSIVE Comments: PATIENT WAS FASTINGPERFORMED BY: Zuberance6370 [facility] [id number] (24063) ALT (SGPT) 23 [iU]/L (Normal) Range: 0-55 [...] mg/dL (Abnormal) Range: 65-99 :01 LIPID PANEL (09369) Comments: PATIENT WAS FASTINGPERFORMED BY: AyudarumCapital Region Medical Center [id number] LDL/HDL Ratio 2.5 {ratio_units} (Normal) Range: 0.0-3.6 [...] MANUAL DIFF Comments: PATIENT WAS FASTINGPERFORMED BY: Gaopeng70 [facility] [id number] Information: [id number] (97816) Immature Grans (Abs) 0.0 {x10E3/uL} (Normal) Range: [...] (Normal) Range: 4.0-10.5 :24 HgA1C , Office (08973) HgA1C , Office 6.7 % (Normal) Range: 4.6 - 7.1 :24 Blood Glucose , Office (50404) Blood Glucose , Office 131 (Normal) :50 HgA1C , Office (74074) HgA1C , Office 6.3 % (Normal) Range: 4.6 - 7.1 :50 Blood Glucose , Office (48339) Blood Glucose , Office 116 (Normal) :05 HgA1C , Office (10823) HgA1C , Office 6.7 % (Normal) Range: 4.6 - 7.1 :58 URINALYSIS, W/ MICRO (00647) Comments: PATIENT WAS FASTINGPERFORMED BY: LabCoSt. Joseph's Regional Medical CenterWtfqwi7838 [facility] [id number] Microscopic Examination See below: (Normal) Microscopic Examination MICRON (Normal) Comments: Microscopic follows if indicated. Nitrite, Urine Negative (Normal) Urobilinogen,Semi-Qn 0.2 mg/dL (Normal) Range: 0.0-1.9 Bilirubin Negative (Normal) Occult Blood Negative (Normal) Ketones Negative (Normal) Glucose Negative (Normal) Protein Negative (Normal) WBC Esterase Negative (Normal) Appearance Clear (Normal) Urine-Color Yellow (Normal) pH 6.5 (Normal) Range: 5.0-7.5 Specific [place] 1.015 (Normal) Range: 1.005-1.030 83-Ult-529227:58 METABOLIC PANEL, COMPREHENSIVE Comments: PATIENT WAS FASTINGPERFORMED BY: [facility] Wnutzw6198 [facility] [id number] (05554) ALT (SGPT) 23 [iU]/L (Normal) Range: 0-55 [...] MANUAL DIFF Comments: PATIENT WAS FASTINGPERFORMED BY: LabCoSt. Joseph's Regional Medical CenterGuuzlq4118 [place] [facility] [id number] Information: [id number] (08871) Immature Grans (Abs) 0.0 {x10E3/uL} (Normal) Range: [...] {x10E3/uL} (Normal) Range: 4.0-10.5 :58 LIPID PANEL (87041) Comments: PATIENT WAS FASTINGPERFORMED BY: [facility] [id number] LDL/HDL Ratio 2.7 {ratio_units} (Normal) Range: 0.0-3.6 [...] CREATININE RATIO Comments: PATIENT WAS FASTINGPERFORMED BY: [place] [id number] [facility] [id number] ([id number]) AND (08248) Microalb/Creat Ratio 16.0 {mg/g_creat} (Normal) Range: 0.0-30.0 Microalbumin, Urine 22.3 ug/mL (Abnormal) Range: 0.0-17.0 Creatinine, Urine 139.1 mg/dL (Normal) Range: 22.0-328.0 :58 TSH (01139) Comments: PATIENT WAS FASTINGPERFORMED BY: [facility] [id number] TSH 3.200 {uIU/mL} (Normal) Range: 0.450-4.500 :44 TSH (00960) Comments: PATIENT WAS FASTINGPERFORMED BY: [facility] [id number] TSH 2.540 {uIU/mL} (Normal) Range: 0.450-4.500 :44 MICROALBUMIN: CREATININE RATIO Comments: PATIENT WAS FASTINGPERFORMED BY: [place] [id number] [facility] [id number] ([id number]) AND (99253) Microalb/Creat Ratio 22.8 {mg/g_creat} (Normal) Range: 0.0-30.0 Microalbumin, Urine 47.4 ug/mL (Abnormal) Range: 0.0-17.0 Creatinine, Urine 207.7 mg/dL (Normal) Range: 22.0-328.0 :44 CBC with manual diff Comments: PATIENT WAS FASTINGPERFORMED BY: [facility]CoSt. [facility] CenterLbsntc4113 [facility] [id number] Information: ADD [id number] AND DRAW FEE 99 1911 (42872) Immature Grans (Abs) 0.0 {x10E3/uL} (Normal) Range: [...] Panel, Comprehensive Comments: PATIENT WAS FASTINGPERFORMED BY: [employer] [facility] [id number] (32390) ALT (SGPT) 22 [iU]/L (Normal) Range: 0-55 [...] mg/dL (Abnormal) Range: 65-99 :44 Lipid Panel (43582) Comments: PATIENT WAS FASTINGPERFORMED BY: [employer] SystemsRUSTZbmohu2545 [facility] [id number]; appt 11/26/10 LDL Cholesterol Calc 109 mg/dL (Abnormal) Range: 0-99 LDL/HDL Ratio 2.4 {ratio_units} (Normal) Range: 0.0-3.6 HDL Cholesterol 46 mg/dL (Normal) Comments: According to ATP-III Guidelines, HDL-C >59 mg/dL is considered anegative risk factor for CHD. VLDL Cholesterol Bharat 37 mg/dL (Normal) Range: 5-40 Triglycerides 183 mg/dL (Abnormal) Range: 0-149 Cholesterol, Total 192 mg/dL (Normal) Range: 100-199 38-Mmd-760783:56 Vitamin D Hydroxy Comments: PATIENT NOT FASTINGPERFORMED BY: [facility]Asc[facility] [id number] Information: [id number] (69657) Vitamin D, 25-Hydroxy 19.4 ng/mL (Abnormal) Range: 32.0-100.0 Comments: Recent studies consider the lower limit of 32.0 ng/mL to be athreshold for optimal health.Ashu JIMENEZ. J Nutr. 2004;135(2):317-22. :03 HEPATIC FUNCTION PANEL Comments: PATIENT WAS FASTINGPERFORMED BY: [facility]Asc[facility]6370 [facility] [id number] Information: [id number] (80392) Alkaline Phosphatase, S 72 [iU]/L (Normal) Range: 25-160 ALT (SGPT) 24 [iU]/L (Normal) Range: 0-55 AST (SGOT) 21 [iU]/L (Normal) Range: 0-40 Bilirubin, Direct 0.38 mg/dL (Normal) Range: 0.00-0.40 Albumin, Serum 4.0 g/dL (Normal) Range: 3.6-4.8 Bilirubin, Total 1.6 mg/dL (Abnormal) Range: 0.0-1.2 Protein, Total, Serum 6.9 g/dL (Normal) Range: 6.0-8.5 :03 LIPID PANEL (66852) Comments: PATIENT WAS FASTINGPERFORMED BY: [facility] [id number] LDL/HDL Ratio 1.7 {ratio_units} (Normal) Range: 0.0-3.6 LDL Cholesterol Calc 66 mg/dL (Normal) Range: 0-99 VLDL Cholesterol Bharat 36 mg/dL (Normal) Range: 5-40 Cholesterol, Total 141 mg/dL (Normal) Range: 100-199 HDL Cholesterol 39 mg/dL (Abnormal) Comments: According to ATP-III Guidelines, HDL-C >59 mg/dL is considered anegative risk factor for CHD. Triglycerides 179 mg/dL (Abnormal) Range: 0-149 24-Mdm-32810:55 CBC WITH MANUAL DIFF Comments: PATIENT NOT FASTINGPERFORMED BY: [facility] Piazob4334 [facility] [id number] Information: [id number] (72331) Immature Grans (Abs) 0.0 {x10E3/uL} (Normal) Range: [...] 9.0 {x10E3/uL} (Normal) Range: 4.0-10.5 :55 Magnesium (40766) Comments: PATIENT NOT FASTINGPERFORMED BY: [facility] [id number] Magnesium, Serum 2.1 mg/dL (Normal) Range: 1.6-2.6 :55 Metabolic Panel, Basic (43301) Comments: PATIENT NOT FASTINGPERFORMED BY: [facility] [id number] Calcium, Serum 9.3 mg/dL (Normal) Range: 8.6-10.2 [...] Microscopic Examination Comments: PATIENT WAS FASTINGPERFORMED BY: [employer]70 [facility]oteSent[facility] [id number] Bacteria None seen (Normal) Cast Type Hyaline casts (Normal) Casts Present {/lpf} (Abnormal) Epithelial Cells (non renal) 0-10 {/hpf} (Normal) Range: 0 - 10 Mucus Threads Present (Normal) RBC 0-3 {/hpf} (Normal) Range: 0 - 3 WBC 0-5 {/hpf} (Normal) Range: 0 - 5 :42 TSH (11111) Comments: PATIENT WAS FASTINGPERFORMED BY: [employer] [facility] [id number] TSH 3.120 {uIU/mL} (Normal) Range: 0.450-4.500 :42 URINALYSIS, W/ MICRO (21990) Comments: PATIENT WAS FASTINGPERFORMED BY: [employer] [facility] [id number] Microscopic Examination See below: (Normal) Bilirubin Negative (Normal) Glucose Negative (Normal) Ketones Negative (Normal) Nitrite, Urine Negative (Normal) Occult Blood Negative (Normal) Urobilinogen,Semi-Qn 0.2 mg/dL (Normal) Range: 0.0-1.9 Appearance Clear (Normal) pH 6.0 (Normal) Range: 5.0-7.5 Protein Negative (Normal) Urine-Color Yellow (Normal) WBC Esterase Trace (Abnormal) Specific [place] 1.020 (Normal) Range: 1.005-1.030 :42 MICROALBUMIN: CREATININE RATIO Comments: PATIENT WAS FASTINGPERFORMED BY: [employer] Qnbxux2584 [facility] [id number] (25723) AND (98153) Microalb/Creat Ratio 14.6 {mg/g_creat} (Normal) Range: 0.0-30.0 Microalbumin, Urine 26.0 ug/mL (Abnormal) Range: 0.0-17.0 Creatinine, Urine 178.3 mg/dL (Normal) Range: 22.0-328.0 :42 METABOLIC PANEL, COMPREHENSIVE Comments: PATIENT WAS FASTINGPERFORMED BY: [employer] [id number] [facility] [id number] (54795) Alkaline Phosphatase, S 68 [iU]/L (Normal) Range: [...] Glucose, Serum 129 mg/dL (Abnormal) Range: 65-99 55-Ylx-86052:42 LIPID PANEL (86339) Comments: PATIENT WAS FASTINGPERFORMED BY: [facility] Lvtbrg0645 [facility] [id number] LDL/HDL Ratio 2.5 {ratio_units} (Normal) Range: 0.0-3.6 LDL Cholesterol Calc 103 mg/dL (Abnormal) Range: 0-99 HDL Cholesterol 42 mg/dL (Normal) Comments: According to ATP-III Guidelines, HDL-C >59 mg/dL is considered anegative risk factor for CHD. Triglycerides 147 mg/dL (Normal) Range: 0-149 VLDL Cholesterol Bharat 29 mg/dL (Normal) Range: 5-40 Cholesterol, Total 174 mg/dL (Normal) Range: 100-199 97-Rbu-80688:42 CBC WITH MANUAL DIFF Comments: PATIENT WAS FASTINGPERFORMED BY: [facility] [id number] Information: ADD [id number] AND DRAW FEE [id number] (25402) Immature Grans (Abs) 0.0 {x10E3/uL} (Normal) Range: [...] (MT) Radiology See Note Comments: Exam Number: [id number] LINICAL:69-year-old man with pain in the left [...] CHOL 194 mg/dL (Normal) Comments: <200 mg/dL Qvapsbqif145-910 mg/dL Borderline>240 mg/dL High Risk :32 PSA, [...] CHOL 157 mg/dL (Normal) Comments: <200 mg/dL Ebfytvnrz288-804 mg/dL Borderline>240 mg/dL High Risk :54 MICROALB:CRE UR MALB:CREAT 10.3 {mg/g_CRE} (Normal) MICROALBUMIN,UR 19.7 mg/L (Normal) UR CREAT 189.9 mg/dL (Normal) :54 TSH 2.03 {uIU/mL} (Normal) Range: 0.358-3.74 :57 WRIST,MIN 3 VIEWS Radiology Report See Note (Normal) Comments: Exam Number: [id number] LEFT HAND Three views of the left hand were obtained. There is good alignment. No acute abnormality is seen. LEFT WRIST Three views were obtained. There is good ali gnment. No significantabnormality is seen. Reported By: SHAHAB CARLOS :56 CHEST, PA AND LATERAL Radiology Report See Note (Normal) Comments: Exam Number: [id number] CHEST, PA AND LATERAL PA and lateral [...] Report See Note (Normal) Comments: Exam Number: [id number] LEFT HAND Three views of the left [...] 3.5-5.1 NA 141 mmol/L (Normal) Range: 136-145 54-Qbm-796800:41 C-REACTIVE PROT 71.80 mg/L (Abnormal) Range: 0.0-3.0 [...] was performed using the TPSA method for the[facility] chemistry system.Values obtained with different assay methods cannot be usedinterchangably.When changing PSA assays in the course of monito ring apatient, additional sequential testing should be carriedout to confirm baseline values. :32 TSH 1.81 {uIU/mL} (Normal) Range: 0.34-4.82 77-Lbd-095775:46 Vitamin D Hydroxy (08571) Comments: PATIENT NOT FASTINGClinical Information: ADD DRAW FEE [id number] ADD [id number] PERFORMED BY: [employer] [address] [id number] Vitamin D, 25-Hydroxy 56.3 ng/mL (Normal) Range: 32.0-100.0 Comments: Recent studies consider the lower limit of 32.0 ng/mL to be athreshold for optimal health.Ashu JIMENEZ. J Nutr. 2004;135(2):317-22. 89-Qyk-491223:46 VITAMIN D, 1, 25-DIHYDROXY Comments: PATIENT NOT FASTINGPERFORMED BY: [employer] [facility] [address] [id number] ([id number]) Vitamin D, 1,25 Dihydroxy 31.0 pg/mL (Normal) Range: 15.9-55.6 23-Wie-983980:28 CBCD,SMEAR DIFF Comments: GETS LIPID,LIVER,CBCMD,MICROAB.JOANNE VÁZQUEZ GETS [...] mg/dL VLDL 41 mg/dL (Abnormal) Range: 5-40 37-Lhl-946762:28 MG 1.7 mg/dL (Normal) Comments: GETS LIPID,LIVER,CBCMD,MICROAB.JOANNE VÁZQUEZ GETS CMP,PHOS,MG,VITD,CBC, Range: 1.5-2.2 08-Krg-916076:28 MICROALBUMIN,UR 6.9 mg/L (Normal) Comments: GETS LIPID,LIVER,CBCMD,MICROAB.JOANNE VÁZQUEZ GETS CMP,PHOS,MG,VITD,CBC, 84-Bnd-247872:28 PHOS 3.2 mg/dL (Normal) Comments: GETS LIPID,LIVER,CBCMD,MICROAB.JOANNE VÁZQUEZ GETS CMP,PHOS,MG,VITD,CBC, Range: 2.5-4.9 76-Weh-962815:28 VIT D,25 62616 29.9 ng/mL (Abnormal) Comments: GETS LIPID,LIVER,CBCMD,MICROAB.JOANNE VÁZQUEZ GETS CMP,PHOS,MG,VITD,CBC, Range: 32.0-100.0 Comments: Recent studies consider the lower limit of 32.0 ng/mL to binta threshold for optimal health.Ashu JIMENEZ. J Nutr. 2004;135(2):317-22.Performed At: [facility]6[address] [place], [place] [id number] 89-Udt-551737:57 VITAMIN D, 1, 25-DIHYDROXY Comments: PATIENT NOT FASTINGClinical Information: ADD DRAW FEE [id number] ADD J [id number] PERFORMED BY: [facility] [id number] (86528) Vitamin D, 1,25 Dihydroxy 38.4 pg/mL (Normal) Range: 15.9-55.6 43-Rof-314995:30 LIPID CHOL 176 mg/dL (Normal) Comments: <200 [...] mg/dL VLDL 41 mg/dL (Abnormal) Range: 5-40 32-Pmw-774814:30 LIVER ALB 3.7 g/dL (Normal) Range: 3.4-5.0 ALK P 57 U/L (Normal) Range: 50-136 ALT 41 U/L (Normal) Range: 30-65 AST 23 U/L (Normal) Range: 15-37 D BILI 0.16 mg/dL (Normal) Range: 0.00-0.30 T BILI 1.63 mg/dL (Abnormal) Range: 0.00-1.00 T PROT 6.9 g/dL (Normal) Range: 6.4-8.2 :46 CHEST, PA AND LATERAL Radiology Report See Note (Normal) Comments: Exam Number: [id number] PA AND LATERAL CHEST CLINICAL STATEMENTCough for [...] 6.4-8.2 :34 MICROALBUMIN,UR 14.3 mg/L (Normal) :34 PTH,[id number] Comments: PLASMA ALDOSTERONE PTH,Intact 63 pg/mL (Normal) Range: 12-65 Comments: Performed At: [address] [id number] At: [address] [id number] RENIN,PL 2006 0.38 {ng/mL/hr} Comments: PLASMA [...] {uIU/mL} (Normal) Range: 0.34-4.82 :34 VIT D,25 52291 20.2 ng/mL (Abnormal) Comments: PLASMA ALDOSTERONE Range: 32.0-100.0 Comments: Recent studies consider the lower limit of 32.0 ng/mL to binat threshold for optimal health.Ashu JIMENEZ. J Nutr. 2004;135(2):317-22. 30-Xtp-22499:00 PROST BX P-PROSB (Normal) Comments: OPERATION Needle [...] RICCI:yanique 11/23/06 TC:3 REPORT SIGNED: TRINI DIAMOND 11/24/0623-Sep-200676-Ovh-521997:35 LIPID CHOL 135 mg/dL (Normal) Comments: <200 [...] was performed using the TPSA method for the[employer] chemistry system.Values obtained with different assay methods [...] 137 mmol/L (Normal) Range: 136-145 :14 PSA [id number] COMMENT Comment (Normal) Comments: The percent free PSA is performed on a reflex basis onlywhen the total PSA is between 4.0 and 10.0 ng/mL.Performed At: [address]Dublin, [place] [id number] At: [facility]NL[facility] [place], [place] [id number] PSA, FREE 0.77 ng/mL (Normal) PSA, FREE [...] ng/mL (Abnormal) Range: 0.0-4.0 Comments: Alex (formerly Cost Effective Data) [facility] methodology Plan of Care Name Dates Details [...] kidney disease Elevated parathyroid hormone : Reviewed Information Systems Consultant Letter Indication: Elevated parathyroid hormone Elevated parathyroid [...] disease Coronary artery disease, occlusive : Reviewed Information Systems Consultant Letter Indication: Coronary artery disease, occlusive Coronary [...] occlusive Coronary artery disease, occlusive : Reviewed Information Systems Consultant Letter Indication: Coronary artery disease, occlusive Malignant [...] in both knees, unspecified chronicity : Reviewed Information Systems Consultant Letter Indication: Pain in both knees, unspecified [...] hyperlipidemia Coronary artery disease, occlusive : Reviewed Information Systems Consultant Letter Indication: Coronary artery disease, occlusive Malignant [...] insulin Coronary artery disease, occlusive : Reviewed Information Systems Consultant Letter Indication: Coronary artery disease, occlusive Malignant [...] disease Coronary artery disease, occlusive : Reviewed Information Systems Consultant Letter Indication: Coronary artery disease, occlusive Controlled [...] insulin Atrial fibrillation, unspecified type : Reviewed Information Systems Consultant Letter Indication: Atrial fibrillation, unspecified type Nonsmoker [...] chronic diastolic congestive heart failure : Reviewed Information Systems Consultant Letter Indication: Acute on chronic diastolic congestive heart failure Fluid overload : Reviewed Lab Indication: Fluid overload Fluid overload : Reviewed Diagnostic Tests Indication: Fluid overload Atrial fibrillation, unspecified type : Reviewed Information Systems Consultant Letter Indication: Atrial fibrillation, unspecified type Hypertensive [...] on chronic systolic heart failure : Reviewed Information Systems Consultant Letter Indication: Acute on chronic systolic heart failure Bilateral edema of lower extremity : Reviewed Lab Indication: Bilateral edema of lower extremity Acute on chronic systolic heart failure : Reviewed Information Systems Consultant Letter Indication: Acute on chronic systolic heart [...] of breath on exertion 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 : Reviewed Information Systems Consultant Letter Indication: 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 : Reviewed Diagnostic Tests Indication: 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 Acute systolic congestive heart failure : Follow up in 3 weeks- fu on chf and edema and std process Indication: Acute systolic congestive heart failure Bilateral edema of lower extremity : Follow up in wednesday - quick yessenia Indication: Bilateral edema of lower extremity 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 : Eprescribed prescriptions (G8553) Indication: 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 Acute systolic congestive heart failure : Reviewed Diagnostic Tests Indication: Acute systolic congestive heart failure Acute systolic congestive heart failure : Continue Current Prescription(s) Indication: Acute systolic congestive heart failure Acute systolic congestive heart failure : Reviewed Information Systems Consultant Letter Indication: Acute systolic congestive heart failure Shortness of breath on exertion : Follow up wednesday for yessenia on lower extrem edema- and sob & lab Indication: Shortness of breath on exertion Atherosclerosis of [place] coronary artery without angina pectoris, unspecified whether mary[place] or transplanted heart : Reviewed Information Systems Consultant Letter Indication: Atherosclerosis of [place] coronary artery without angina pectoris, unspecified whether mary[place] or transplanted heart Mixed hyperlipidemia : Cholesterol [...] Cholesterol mgmt Indication: Hyperlipidemia 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 : Reviewed Information Systems Consultant Letter Indication: 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 Diabetes mellitus type 2, uncontrolled, [...] annual wellness exam Elevated PSA : Reviewed Information Systems Consultant Letter: milagro neal Indication: Elevated PSA 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 : Continue Current Prescription(s) 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 : Reviewed Lab Indication: 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 Hyperlipidemia : Cholesterol mgmt Indication: [...] and congestive heart failure 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 : Reviewed Information Systems Consultant Letter Indication: 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 Diabetes mellitus without complication (Renamed from Diabetes mellitus with no complication) : Diabetes Mellitus: Type 2 *: diabetes type 2 Indication: Diabetes mellitus without complication (Renamed from Diabetes mellitus with no complication) CVA (cerebral infarction) : Reviewed Information Systems Consultant Letter: neuro wants to do a brain [...] brain MRI Abnormal brain MRI : Reviewed Information Systems Consultant Letter Indication: Abnormal brain MRI Malignant hypertension [...] Vitamin D deficiency, unspecified 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 : Reviewed Information Systems Consultant Letter Indication: 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 Hyperlipidemia : Cholesterol mgmt Indication: [...] mellitus with no complication) 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 : Reviewed Information Systems Consultant Letter Indication: 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 Diabetes mellitus type 2, uncontrolled, [...] mellitus with no complication) 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 : Reviewed Information Systems Consultant Letter Indication: 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 Malignant hypertension with renal disease [...] 2, uncontrolled, without complications 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 : Reviewed Information Systems Consultant Letter Indication: 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 Hyperlipidemia : Cholesterol mgmt Indication: [...] with renal disease Elevated PSA : Reviewed Information Systems Consultant Letter Indication: Elevated PSA Vitamin D deficiency, [...] mgmt Indication: Mixed hyperlipidemia 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 : Reviewed Information Systems Consultant Letter Indication: 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 Hypertensive heart disease : Diet, [...] mgmt Indication: Mixed hyperlipidemia 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 Hypertensive heart disease : Diet, [...] Side Effects Indication: Mixed hyperlipidemia Atherosclerosis of mary[place] coronary artery without angina pectoris, unspecified whether [place]ary[place] or transplanted heart : Reviewed Information Systems Consultant Letter Indication: Atherosclerosis of [place]ary[place] coronary artery without angina pectoris, unspecified whether mary[place] or transplanted heart Hypertensive heart disease : [...] obstructive pulmonary disease Elevated PSA : Reviewed Information Systems Consultant Letter prostate bx negative Indication: Elevated PSA Hypertensive heart disease : Reviewed Information Systems Consultant Letter Indication: Hypertensive heart disease Hyperlipidemia : [...] - Strool Based DNA Test, CRC SCREEN (28023)Indication: Encounter for screening for malignant neoplasm of colon (Renamed from Special screening for malignant neoplasms, colon) On: 65-Pai-006226:47 Request TSH (43601)Indication: 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, without long-term current use of insulin On: 0-Ufy-671075:20 Request URINALYSIS, W/ MICRO (63708)Indication: 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 On: 2-Srk-427808:19 Request MICROALBUMIN: CREATININE RATIO (75587) AND (20102)Indication: 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 On: 6-Oyd-444069:19 Request METABOLIC PANEL, COMPREHENSIVE (50451)Indication: 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 On: :19 Request LIPID PANEL (07386)Indication: 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 On: :19 Request CBC with auto diff (82566)Indication: 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 On: :19 Request CALCIFEDIOL (31521)Indication: Vitamin D deficiency On: :19 Request CALCIFEDIOL (77292)Indication: Vitamin D deficiency On: 01-Gyb-147785:51 Request PARATHORMONE (94761)Indication: Elevated parathyroid hormone On: 80-Mfu-609665:51 Request URINALYSIS, W/ MICRO (63804)Indication: Diabetes mellitus without complication (Renamed from Diabetes mellitus with no complication) On: :17 Request MICROALBUMIN: CREATININE RATIO (51116) AND (57552)Indication: Diabetes mellitus without complication (Renamed from Diabetes mellitus with no complication) On: :17 Request CALCIFIDIOL (59558) VIT D 25Indication: Vitamin D deficiency, unspecified On: :39 Request TSH (41896)Indication: 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, without long-term current use of insulin On: :39 Request URINALYSIS, W/ MICRO (76921)Indication: 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, without long-term current use of insulin On: :39 Request MICROALBUMIN: CREATININE RATIO (08601) AND (23476)Indication: 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, without long-term current use of insulin On: :39 Request METABOLIC PANEL, COMPREHENSIVE (98238)Indication: 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, without long-term current use of insulin On: :39 Request LIPID PANEL (40530)Indication: 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, without long-term current use of insulin On: :39 Request CBC W/AUTO DIFF WBC (37886)Indication: 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, without long-term current use of insulin On: :39 Request TSH (70931)Indication: Diabetes mellitus type 2, uncontrolled, without complications On: 00-Qvh-191766:04 Request URINALYSIS, W/ MICRO (61149)Indication: Diabetes mellitus type 2, uncontrolled, without complications On: 26-Ttj-544746:04 Request MICROALBUMIN: CREATININE RATIO (01870) AND (59879)Indication: Diabetes mellitus type 2, uncontrolled, without complications On: 93-Shz-563433:04 Request METABOLIC PANEL, COMPREHENSIVE ([id number])Indication: Diabetes mellitus type 2, uncontrolled, without complications On: :04 Request LIPID PANEL ([id number])Indication: Mixed hyperlipidemia On: : Request CBC W/AUTO DIFF WBC ([id number])Indication: Diabetes mellitus type 2, uncontrolled, without complications On: :03 Request FECAL OCCULT- Tubes sent home ([id number])Indication: Encounter for screening for malignant neoplasm of colon (Renamed from Special screening for malignant neoplasms, colon) On: 7-Udk-154815:21 Request Metabolic Panel, Basic ([id number])Indication: Renal insufficiency On: 1-Xda-245170:41 Request Comments: wednesday Metabolic Panel, Basic ([id number])Indication: Renal insufficiency On: 05-Jul-2015 Request Metabolic Panel, Basic ([id number])Indication: Renal insufficiency On: 35-Pni-161355:41 Request BASIC METABOLIC w/Ionized Ca++ (65090)Indication: Short of breath on exertion On: 5-Owo-457968:31 Request METABOLIC PANEL, BASIC (06794)Indication: Abnormal blood chemistry On: 6-Scb-771126:23 Request Metabolic Panel, Basic ([id number])Indication: Acute systolic congestive heart failure On: 9-Deb-764103:54 Request Metabolic Panel, Basic ([id number])Indication: Atrial fibrillation, unspecified type On: 94-Bvf-550602:04 Request ASSAY, NATIURETIC PEPTIDE ([id number])Indication: Atrial fibrillation, unspecified type On: 37-Oor-387826:04 Request ASSAY, NATIURETIC PEPTIDE ([id number])Indication: Bilateral edema of lower extremity On: 96-Hqq-321925:13 Request ASSAY, NATIURETIC PEPTIDE ([id number])Indication: Acute systolic congestive heart failure On: 30-Ykc-005665:39 Request Comments: re check in 1-2 weeks PSA (Medicare - G0103) ([id number])Indication: Elevated PSA On: :17 Request TSH ([id number])Indication: Diabetes mellitus type 2, uncontrolled, without complications On: :16 Request URINALYSIS, W/ MICRO ([id number])Indication: Diabetes mellitus type 2, uncontrolled, without complications On: :16 Request MICROALBUMIN: CREATININE RATIO ([id number]) AND ([id number])Indication: Diabetes mellitus type 2, uncontrolled, without complications On: :16 Request METABOLIC PANEL, COMPREHENSIVE ([id number])Indication: Diabetes mellitus type 2, uncontrolled, without complications On: :16 Request LIPID PANEL ([id number])Indication: Diabetes mellitus type 2, uncontrolled, without complications On: :16 Request CBC with auto diff ([id number])Indication: Diabetes mellitus type 2, uncontrolled, without complications On: :16 Request CALCIFIDIOL ([id number]) VIT D 25Indication: Vitamin D deficiency, unspecified On: :16 Request Vitamin D Hydroxy ([id number])Indication: Vitamin D deficiency, unspecified On: 4-Saf-367509:05 Request URINALYSIS, W/ MICRO ([id number])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 On: 0-Tuv-813484:04 Request MICROALBUMIN: CREATININE RATIO ([id number]) AND ([id number])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 On: 6-Afn-367249:04 Request METABOLIC PANEL, COMPREHENSIVE ([id number])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 On: 3-Oth-709790:04 Request LIPID PANEL ([id number])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 On: :04 Request CBC WITH MANUAL DIFF ([id number])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 On: 3-Eom-830391:04 Request FECAL OCCULT- Tubes sent home ([id number])Indication: Encounter for routine history and physical exam for male On: 05-Vms-243344:09 Request CALCIFIDIOL ([id number]) VIT D 25Indication: Vitamin D deficiency, unspecified On: :11 Request PSA TOTAL +%FREE 677030 ([id number])Indication: Elevated PSA On: 3-Njr-851808:14 Request BILIRUBIN, TOTAL & DIRECT ([id number])Indication: Other specified abnormal findings of blood chemistry On: 4-Efd-851932:14 Request Glucose, PP/2 Hour (40453)Indication: Other specified abnormal findings of blood chemistry On: 62-Fut-673597:03 Request CALCIFIDIOL ([id number]) VIT D 25Indication: Vitamin D deficiency, unspecified On: 43-Iia-156378:31 Request TSH ([id number])Indication: Hypertensive heart disease On: : Request URINALYSIS, W/ MICRO ([id number])Indication: Hypertensive heart disease On: :28 Request MICROALBUMIN: CREATININE RATIO ([id number]) AND ([id number])Indication: Hypertensive heart disease On: : Request METABOLIC PANEL, COMPREHENSIVE ([id number])Indication: Hypertensive heart disease On: : Request CBC WITH MANUAL DIFF ([id number])Indication: Hypertensive heart disease On: : Request PSA (PROSTATE SPECIFIC ANTIGEN) (V76.44)Indication: Elevated PSA On: :25 Request LIPID PANEL ([id number])Indication: Hyperlipidemia On: 50-Odg-704954:23 Request Comments: do for next appt- 4mo Metabolic Panel, Basic ([id number])Indication: Pain of hand, unspecified laterality On: 72-Swi-607874:42 Request URIC ACID BLOOD ([id number])Indication: Pain of hand, unspecified laterality On: 95-Ezv-913318:42 Request C-REACTIVE PROTEIN ([id number])Indication: Pain of hand, unspecified laterality On: 08-Ugw-791981:52 Request SED RATE ERYTHROCYTE ([id number])Indication: Pain of hand, unspecified laterality On: 64-Dqw-136819:52 Request CBC WITH MANUAL DIFF ([id number])Indication: Pain of hand, unspecified laterality On: 31-Lwb-639497:51 Request Magnesium (58047)Indication: Hypokalemia On: :25 Request Potassium Serum (45082)Indication: Hypokalemia On: 64-Yec-430281:25 Request Comments: do in 2 weeks Vitamin D Hydroxy ([id number])Indication: Vitamin D deficiency, unspecified On: 48-Hrz-869177:23 Request Glucose, PP/2 Hour (22415)Indication: Other specified abnormal findings of blood chemistry On: 44-Wrw-092551:18 Request LIPID PANEL ([id number])Indication: Hyperlipidemia On: 19-Qjo-107292:45 Request Comments: DO IN 3 MONTHS HEPATIC FUNCTION PANEL (35291)Indication: Hyperlipidemia On: 93-Cis-031836:45 Request HEPATIC FUNCTION PANEL ([id number])Indication: Hyperlipidemia On: 72-Ijv-457926:54 Request LIPID PANEL ([id number])Indication: Hyperlipidemia On: 65-Wxo-807292:54 Request Comments: do in 3 months PARATHORMONE ([id number])Indication: Vitamin D deficiency, unspecified On: 87-Oox-868927:45 Request CALCIUM SERUM ([id number])Indication: Vitamin D deficiency, unspecified On: 35-Sqx-505872:45 Request VITAMIN D, 1, 25-DIHYDROXY (21720)Indication: Vitamin D deficiency, unspecified On: 21-Sjm-339326:45 Request VITAMIN D, 25-DIHYDROXY ([id number])Indication: Vitamin D deficiency, unspecified On: 68-Zth-511890:45 Request LIPID PANEL ([id number])Indication: Hyperlipidemia On: 04-Fia-701744:44 Request Planned Procedures INTENSIVE BEHAVIORAL THERAPY TO On: 15-Nov-2017 Intent REDUCE CARDIOVASCULAR DISEASE RISK, INDIVIDUAL, BJOP-TQ-[id number], ANNUAL, 15 MINUTES (G0446)By: Vicki Styles DO, DO, Kathleen [id number]-RQ-[id number] BEHAVIORAL COUNSELING On: 15-Nov-2017 Intent FOR OBESITY, 15 MINUTES (G0447)By: Vicki Styles DO, DO, Kathleen Spirometry ([id number])By: Neil NG, On: 06-Sep-2017 Intent Vicki Nichols DO Comments: severe obsstyuction and good effort on curve-- addeed dulera - ELECTROCARDIOGRAM, COMPLETE (ECG) On: 06-Sep-2017 Intent ([id number])By: Vicki Styles DO Comments: a fib- rate controlled - no acute findings Vicki Styles DO X-RAY OF HAND, THREE VIEWS On: 17-Jun-2017 Intent (03537)By: Vicki Styles DO Comments: Right hand Vicki Styles DO PARATHYROID SCAN ([id number])By: Neil On: 17-Jun-2017 Intent Vicki NG DO Vicki Overnight Pulse OX ([id number])By: On: 04-Jun-2017 Intent Vicki Styles DO DOVicki [id number] BEHAVIORAL COUNSELING On: 09-Nov-2016 Intent FOR OBESITY, 15 MINUTES (G0447)By: Vicki Styles DO NeilVicki santos DO INTENSIVE BEHAVIORAL THERAPY TO On: 09-Nov-2016 Intent REDUCE CARDIOVASCULAR DISEASE RISK, INDIVIDUAL, [id number]-FX-[id number], ANNUAL, 15 MINUTES (G0446)By: Vicki Styles DO, DO, Kathleen ELECTROCARDIOGRAM, COMPLETE (ECG) On: 10-Sep-2016 Intent ([id number])By: Vicki Styles DO Comments: chronic chg - afib/flutter - rate controlled Vicki Styles DO SIX MINUTE WALK TEST ([id number])By: On: 26-Mar-2016 Intent Vicki Styles DO DOVicki Overnight Pulse OX ([id number])By: On: 09-Mar-2016 Intent Vicki Styles DO DO, Vicki Overnight Pulse OX ([id number])By: On: 04-Mar-2016 Intent Vicki Styles DO, DO, Kathleen Spirometry ([id number])By: Neil NG, On: 04-Mar-2016 Intent Vicki Nichols DO Comments: pt admits not using inhalers - restrictive pattern - refilled inhalers - symbicort nad spiriva and will yessenia in one month INTENSIVE BEHAVIORAL THERAPY TO On: 07-Nov-2015 Intent REDUCE CARDIOVASCULAR DISEASE RISK, INDIVIDUAL, [id number]-[id number], ANNUAL, 15 MINUTES (G0446)By: Vicki Styles DO Neil DOVicki [id number] BEHAVIORAL COUNSELING On: 07-Nov-2015 Intent FOR OBESITY, 15 MINUTES (G0447)By: Vicki Styles DO, DO, Kathleen Radiology - Chest- PA and LatBy: On: 18-Apr-2015 Intent Vicki Styles DO, DO, Kathleen Echo CompleteBy: Neil NG, On: 18-Apr-2015 Intent Vicki Nichols DO Prevnar 13 (51154)By: Neil NG, On: 16-Jan-2014 Intent Vicki Nichols DO Prevnar 13 ([id number])By: Neil NG, On: 16-Jan-2014 Intent Vicki Nichols DO Comments: [id number] arm, 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, FURNITURE REPAIRER Overnight Pulse OX ([id number])By: On: 03-Jan-2014 Intent Vicki Styles DO, DO, Kathleen Six Minute Walk Assessment On: 28-Dec-2013 Intent ([id number])By: Vicki Styles DO DO, Vicki KSHZ-[id number]-HCQY BEHAVIORAL COUNSELING On: 23-Nov-2013 Intent FOR OBESITY, 15 MINUTES (G0447)By: Vicki Styles DO, DO, Vicki INTENSIVE BEHAVIORAL THERAPY TO On: 19-Oct-2013 Intent REDUCE CARDIOVASCULAR DISEASE RISK, INDIVIDUAL, ZZPE-DP-[id number], ANNUAL, 15 MINUTES (G0446)By: Vicki Styles DO, DO, Vicki OHAF-CI-PEIY BEHAVIORAL COUNSELING On: 19-Oct-2013 Intent FOR OBESITY, 15 MINUTES (G0447)By: Vicki Styles DO, DO, Kathleen Radiology - Chest- PA and LatBy: On: 24-Aug-2013 Intent Vicki Styles DO, DO, Vicki Aerosol Treatment ([id number])By: On: 24-Aug-2013 Intent Vicki Styles DO Neil DO, Comments: no wheeze and much more a/e Vicki Eprescribed prescriptions On: 15-May-2013 Intent (G8553)By: Leora Fonseca LPN Eprescribed prescriptions On: 20-Mar-2013 Intent (G8553)By: Vicki Styles DO Neil DO, Vicki INTENSIVE BEHAVIORAL THERAPY TO On: 17-Oct-2012 Intent REDUCE CARDIOVASCULAR DISEASE RISK, INDIVIDUAL, [id number]-HF-[id number], ANNUAL, 15 MINUTES (G0446)By: Vicki Styles DO DO, Vicki [id number]-PB-[id number] BEHAVIORAL COUNSELING On: 17-Oct-2012 Intent FOR OBESITY, 15 MINUTES (G0447)By: Vicki Styles DO, DO, Kathleen EKG ([id number])By: Neil NG, On: 17-Oct-2012 Intent Vicki Neil DO, Vicki Eprescribed prescriptions On: 17-Oct-2012 Intent (G8553)By: Leora Fonseca LPN Six Minute Walk Assessment On: 28-Jul-2012 Intent ([id number])By: Aleksandr HUTSON, Gay Bio Z ([id number])By: Neil DO, On: 18-Jul-2012 Intent Vicki Neil DOJonathanVicki Comments: unable to connect and perform Six Minute Walk Assessment On: 18-Jul-2012 Intent ([id number])By: Vicki Styles DO Comments: set up Neil DO, Vicki Eprescribed prescriptions On: 22-Apr-2012 Intent (G8553)By: Leora Fonseca LPN Spirometry ([id number])By: Neil NG, On: 21-Jan-2012 Intent Vicki Neil DO Vicki Comments: poor effort Eprescribed prescriptions On: 21-Jan-2012 Intent (G8553)By: Leora Fonseca LPN PFT - CompleteBy: Neil NG, On: 21-Oct-2011 Intent Vicki Neil DO, Vicki EKG (49665)By: Neil NG, On: 21-Oct-2011 Intent VickiVicki Jones DO Comments: nsr no acute chg Eprescribed prescriptions On: 05-Aug-2011 Intent (G8553)By: Leora Fonseca LPN Six Minute Walk Assessment On: 06-Feb-2011 Intent ([id number])By: Naomi Mendez Comments: see scanned documents Six Minute Walk Assessment On: 26-Nov-2010 Intent ([id number])By: Vicki Styles DO Comments: set up Neil DO, Vicki Bio Z ([id number])By: Neil NG, On: 26-Nov-2010 Intent VickiVicki Hernandez DO Comments: norrmal parameters no chg in rx EKG (09554)By: Neil NG, On: 26-Nov-2010 Intent Vicki NeilVicki santos DO Comments: nsr no acute chgn TDAP VACCINE >7 IM ([id number])By: On: 30-Jul-2010 Intent Vicki Styles DO, DO, Comments: Lot:[id number]:06/26/12Amt:prefilledRoute:IMSite: left deltGiven By: CARYL Edwards Eprescribed prescriptions On: 30-Jul-2010 Intent (G8553)By: Vicki Styles DO, DO, Vicki Bio Z ([id number])By: Neil NG, On: 30-Jul-2010 Intent Vicki Nichols DO Comments: STABLE SEE SCANNED DOC -NO CHG IN MEDS EKG ([id number])By: Neil NG, On: 26-Mar-2010 Intent Vicki Styles DO, Vicki Bio Z (64930)By: Neil NG, On: 26-Mar-2010 Intent Vicki Nichols DO PHYSICAL THERAPY EVALUATION On: 07-Jan-2010 Intent ([id number])By: Elisabet Matos CNP Radiology - Knee - Left - Weight On: 07-Jan-2010 Intent BearingBy: Elisabet Matos CNP Radiology - Knee - LeftBy: Ciesa On: 07-Jan-2010 Intent Elisabet HIRSCH Renal Duplex ScanBy: Neli NG, On: 14-Jun-2009 Intent Vicki Styles DO, Vicki Radiology - Wrist - LeftBy: Neil On: 19-Mar-2009 Intent DO, Vicki Neil DO, Vicki Radiology - Hand - LeftBy: Neil On: 19-Mar-2009 Intent DO, Vicki Styles DO, Vicki Radiology - Chest- PA and LatBy: On: 19-Mar-2009 Intent Vicki Styles DO Neil DO, Vicki Bio Z ([id number])By: Neil NG, On: 19-Mar-2009 Intent Vicki Nichols DO Comments: ok co and svr EKG ([id number])By: Neil NG, On: 19-Mar-2009 Intent Vicki Nichols DO Comments: nsr no acute changes Spirometry (06804)By: Neil NG, On: 19-Mar-2009 Intent Vicki Nichols DO Comments: mild obstructive pattern - Pulse Oximetry ([id number])By: Mast RN, On: 19-Mar-2009 Intent Darling EKG ([id number])By: Neil NG, On: 25-Jul-2008 Intent Vicki Nichols DO Comments: no acute stable Bio Z ([id number])By: Neil NG, On: 25-Jul-2008 Intent Vicki Nichols DO Comments: stable no changes Six Minute Walk Assessment On: 16-May-2008 Intent (35698)By: Crystal Reyes Six Minute Walk Assessment On: 23-Mar-2008 Intent (26241)By: Vicki Styles DO, DO, Kathleen Bio Z ([id number])By: Neil NG, On: 23-Mar-2008 Intent Vicki Nichols DO Comments: normal svr and co Radiology - Knee - LeftBy: Neil On: 28-Dec-2007 Intent Vicki NG DO, Kathleen Radiology - Knee - RightBy: Neil On: 28-Dec-2007 Intent Vicki NG DO, Kathleen Bio Z ([id number])By: Neil NG, On: 28-Dec-2007 Intent Vicki Nichols DO Comments: normal svr and co Bio Z ([id number])By: Neil NG, On: 01-Sep-2007 Intent Vicki Nichols DO Comments: HYPERDYNAMIC HEART-- HI CO AND LO SVR Holter Moniter ([id number])By: Neil On: 04-May-2007 Intent Vicki NG DO, Kathleen Comments: set up Bio Z ([id number])By: Neil NG, On: 04-May-2007 Intent Vicki Nichols DO Comments: normal svr and co EKG (27721)By: Neil NG, On: 04-May-2007 Intent Vicki Nichols DO Comments: nsr some pvc-- no acute ischemic changes Radiology - Chest- PA and LatBy: On: 24-Mar-2007 Intent Vicki Styles DO, DO, Kathleen Aerosol Treatment (08001)By: On: 24-Mar-2007 Intent Vicki Styles DO, DO, Comments: better air exchange less wheeze and less irritability with cough Vicki Solu- Medrol Injection, 125mg On: 24-Mar-2007 Intent ([id number])By: Vicki Styles DO Comments: given in right hip, 125mg, lot#[id number], exp.-- Vicki Styles DO Spirometry ([id number])By: Neil NG, On: 24-Mar-2007 Intent Vicki Nichols DO Comments: severe airway obstruction Pulse Oximetry ([id number])By: Neil On: 24-Mar-2007 Vicki Coates DO, DO, Kathleen Comments: 94% Doppler Ultrasound OtherBy: Neil On: 02-Mar-2007 Vicki Coates DO, DO, Kathleen Comments: R Inhaler Demo (77603)By: Neil NG, On: 27-Jan-2007 Intent Vicki Nichols DO Bio Z ([id number])By: Neil NG, On: 27-Jan-2007 Intent Vicki Nichols DO Comments: normal svr and co Spirometry (03336)By: Neil NG, On: 27-Jan-2007 Intent Vicki Nichols DO Comments: mild obstruction Bio Z ([id number])By: Neil NG, On: 11-Oct-2006 Intent Vicki Nichols DO Comments: normal svr and co EKG (91023)By: Neil NG, On: 26-Apr-2006 Intent iVcki Nichols DO Comments: nsr intraventricular conduction delay no acute ischemic changes Holter Moniter ([id number])By: On: 26-Mar-2006 Intent REILLY Moya Instructions Name [...] systolic congestive heart failure 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 : How to access health information online Indication: 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 : How to access health information online - Detail Indication: 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 Bilateral edema of lower extremity [...] 2, uncontrolled, without complications 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 : cardiovascular counseling Indication: 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 BMI 37.0-37.9, adult : obesity [...] Indication: Abnormal brain MRI 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 : cardiovascular counseling Indication: 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 BMI 36.0-36.9,adult : obesity counseling [...] The patient does have durable power of patent attorney and living will. The patient has noticed nothing from the geriatic depression scale. Other providers contributing to the patient's care are in home sales consultant, scrub technician, urologist and other: (endo).Encounter Diagnosis: Nonsmoker, BMI [...] I called squad and I was at [facility] and then I went to [facility] for End: 06-Jan-2017 11:01 heraphy) [...] The patient does have durable power of patent attorney and living will. The patient has noticed nothing from the geriatic depression scale. Other providers contributing to the patient's care are in home sales consultant, urologist and other:.Encounter Diagnosis: Nonsmoker, BMI 35.0-35.9,adult, [...] extremity edema, increase SOB. Recent trip to [place] Encounter Diagnosis: Edema extremities, Fluid overload, Atrial [...] The patient does have durable power of patent attorney and living will. The patient has noticed lack of energy. Other providers contributing to the patient's care are in home sales consultant and urologist. Encounter Diagnosis: Encounter for Medicare [...] Hypertension with renal disease, 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, Chronic kidney disease, stage 3 [...] vivid dreams. Encounter Diagnosis: 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, Apnea, BPH (benign prostatic hyperplasia) (600.90), Other urinary incontinence, Bilateral edema of lower extremity, Short of breath on exertion, Non morbid obesity, unspecified obesity type, Therapeutic drug monitoring [facility] Office Visit On: 10-May-2015 10:16 Encounter Diagnosis: Atrial fibrillation, unspecified type, 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 (414.01), Acute systolic congestive heart [...] type, Abnormal blood chemistry, 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 (414.01) End: 06-May-2015 10:58 Comprehensive [...] deficiency, unspecified, Mixed hyperlipidemia (272.2), Atherosclerosis of [place] coronary artery without angina pectoris, unspecified whether [place] or transplanted heart, History of CVA in [...] weight :. Encounter Diagnosis: 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 (414.01), BMI 37.0-37.9, ADULT (V85.37), [...] patient d oes have durable power of patent attorney and living will. The patient has noticed feeling situation is hopeless (recently). Other providers contributing to the patient's care are in home sales consultant (Dr. 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.93), Diabetes mellitus without complication (Renamed from Diabetes mellitus with no complication), Hyperlipidemia (272.4), Edema (782.3) [facility] Office Visit On: 20-Mar-2013 10:40 Encounter Diagnosis: Hypertension with Heart and Renal Disease (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 The patient has completed the [facility] preventative measures: PSA testing (september 2012) and colonoscopy (around 10 years). The patient does have durable power of patent attorney and living will. The patient has noticed nothing from the geriatic depression scale. Other providers contributing to the patient's care are in home sales consultant (Dr. Greenfield) and urologist. 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), Hyperlipidemia (272.4), 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 (414.01), Unspecified vitamin D deficiency [...] disease (402.90), Hyperlipidemia (272.4), 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 (414.01), Edema (782.3) [facility] [...] mellitus without complication (250.00), 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 (414.01), Hypertension with Renal Disease [...] II,uncontrolled, no comp (250.02), 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 (414.01), Atrial fibrillation (427.31), Benign [...] fibrillation (427.31), COPD (496.), 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 (414.01) [facility] Phone [...] fibrillation (427.31), COPD (496.), 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 (414.01), Mixed hyperlipidemia (272.2), Hypertensive [...] , Atrial fibrillation (427.31), 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 (414.01) [facility] Office [...] Coronary atherosclerosis of unspecified type of vessel, [place] or graft (414.00), COPD (496.), Hyperglycemia (790.29), [...] Coronary atherosclerosis of unspecified type of vessel, [place] or graft (414.00), Atrial fibrillation (427.31), Obesity, [...] Coronary atherosclerosis of unspecified type of vessel, [place] or graft (414.00), Hypertensive heart disease (402.90) [...] Hypertensive heart disease (402.90), 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 (414.01), Atrial fibrillation (427.31), Hyperlipidemia [...] Coronary atherosclerosis of unspecified type of vessel, [place] or graft (414.00), Atrial fibrillation (427.31), Hypocalcemia [...] Hypertensive heart disease (402.90), 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 (414.01), Hyperlipidemia (272.4), COPD (496.), [...] Coronary atherosclerosis of unspecified type of vessel, [place] or graft (414.00), Atrial fibrillation (427.31), Mixed [...] Coronary atherosclerosis of unspecified type of vessel, [place] or graft (414.00), Atrial fibrillation (427.31), Mixed [...] Coronary atherosclerosis of unspecified type of vessel, [place] or graft (414.00), Atrial fibrillation (427.31), 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 (414.01), Unspecified vitamin D deficiency [...] Diagnosis: Atrial fibrillation (427.31), 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 (414.01), Hypertensive heart disease (402.90), [...] (402.90), Atrial fibrillation (427.31), 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 (414.01), Hyperlipidemia (272.4), Cough (786.2), [...] Hypertensive heart disease (402.90), 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 (414.01), Atrial fibrillation (427.31), Hyperlipidemia [...] End: 01-Jan-2006 12:10 Payers MedicareTRICARE FOR LIFE, [facility] [employer]; a guarantor
--- OUTSIDE RECORDS SUMMARY | 2018-04-29 16:06 | XMS RPT_ITS | Continuity of Care Document ---
:1940 Author Organization [facility] Address [facility] [address] [place] [address] Phone Care Team Providers Name Role Phone Neil DO Vicki Unavailable Milagro PHAN, Dr. Mohsen Mckenna Unavailable Physical Therapy, [facility] Unavailable Lesa Alvarado Unavailable Dr. Juan Sin DO Unavailable [facility], Diagnostic [facility] Unavailable Kimo Roger MD Unavailable Mata Leonard Unavailable [facility] Unavailable Kamaljit PHAN, Dr. 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) Status: Active Hypoxia (R09.02, 799.02) Comments: sleep related and wears at nightmanaged by Spotsetter Status: Active Influenza vaccination declined (Renamed from [...] 17-Jun-2017 Inactive Comments:on national back order DRISDOL, 34360UDKQ (Oral Capsule) 1 Capsule uad for 0 days Quantity: 8 {Capsule} Refills: 4 Ordered:21-Jan-2012 Leora Fonseca LPN Start : 31-Jul-2010 End : 21-Jan-2012 Inactive Comments:2 tabs q week x 4 mo and then 1 tab weekly ERGOCALCIFEROL, 91521HINA (Oral Capsule) 1 (one) Capsule tad for [...] Moya Start : 21-Aug-2008 Inactive VITAMIN D3, 09171GSQI (Oral Capsule) 1 Capsule 2 x week [...] Comments:take 1/2 hr prior to lasix Nystatin 781077 UNIT/ML Mouth/Throat Suspension 5 cc cc swish [...] Inactive as of 04-Mar-2016 Coronary atherosclerosis of tetlin coronary vessel (I25.10, 414.01) Comments: other stent [...] Visit Report Result: Comments: See Note; NOTES: 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 ang hernán pectoris (Chronic) Mitral valve insufficiency (Chronic) Localized edema (Resolved) Bilateral pleural effusion (Resolved) History of stroke (Chronic) Acute on chronic systolic (congestive) heart fail ure (Chronic) Hyperlipidemia (Chronic) superintendent terminal use of drug (Chronic) Ischemic cardiomyopathy (Chronic) FH: sudden cardiac (SCD) (Chronic) 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 of premature coronary heart disease ([facility]) BPH with urinary obstruction (Chronic) Noncompliance [...] 3 Views Result: Comments: See Note; NOTES: [facility] [address] [place] [address] Hand Min 3 Views MR#: [id number] Acct: [id number] Name: RAMU DEWITT Rep #: [id number] DO B: 1940 M 76 From: Andre Crisostomo MD PCP: Vicki Styles DO Status: REG CLI Study: Hand Min 3 Views Date of Exam: 08/20/17 Exam# [id number] Ordering Dr: Lesa Alvarado MD STUDY: X-RAY [...] CC: Vicki Styles DO; Lesa Alvarado MD Market Development Specialist: Signed 20-Aug-2017 Hand Min 3 Views Result: Comments: See Note; NOTES: [facility] [address] [place] [address] Hand Min 3 Views MR#: [id number] Acct: [id number] Name: RAMU DEWITT Rep #: [id number] DO B: 1940 M 76 From: Andre Crisostomo MD PCP: Vicki Styles DO Status: REG CLI Study: Hand Min 3 Views Date of Exam: 08/20/17 Exam# [id number] Ordering Dr: Lesa Alvarado MD STUDY: X-RAY [...] CC: Vicki Styles DO; Lesa Alvarado MD Market Development Specialist: Signed 20-Aug-2017 Knee 4 or More Views Result: Comments: See Note; NOTES: [facility] [address] [place] [address] Knee 4 or More Views MR#: [id number] Acct: [id number] Name: RAMU DEWITT Rep #: [id number] : 1940 76 From: Andre Crisostomo MD PCP: Vicki Styles DO Status: REG CLI Study: Knee 4 or More Views Date of Exam: 08/20/17 Exam# [id number] Ordering Dr: Lesa Alvarado MD STUDY: X-RAY [...] CC: Vicki Styles DO; Lesa Alvarado MD Market Development Specialist: Signed 20-Aug-2017 Knee 4 or More Views Result: Comments: See Note; NOTES: [facility] [address] [place] [address] Knee 4 or More Views MR#: [id number] Acct: [id number] Name: RAMU DEWITT Rep #: [id number] : 1940 M 76 From: Andre Crisostomo MD PCP: Vicki Styles DO Status: REG CLI Study: Knee 4 or More Views Date of Exam: 08/20/17 Exam# [id number] Ordering Dr: Lesa Alvarado MD STUDY: X-RAY [...] CC: Vicki Styles DO; Lesa Alvarado MD Market Development Specialist: Signed 24-Jun-2017 Parathyroid Scan Result: Comments: See Note; NOTES: [facility] [address] [place] [address] Parathyroid Scan MR#: [id number] Acct: [id number] Name: RAMU DEWITT Rep #: [id number] DO B: 1940 M 76 From: Rickie Navi NG PCP: Vicki Styles DO Status: REG CLI Study: Parathyroid Scan Date of Exam: 06/24/17 Exam# [id number] Ordering Dr: Vicki Styles DO CLINICAL: 76-year-old [...] Service support , CC: Vicki Styles DO Market Development Specialist: Signed 17-Jun-2017 Hand Min 3 Views Result: Comments: See Note; NOTES: [facility] [address] [place] [address] Hand Min 3 Views MR#: [id number] Acct: [id number] Name: RAMU DEWITT Rep #: [id number] DO B: 1940 M 76 From: Trung Gonzalez DO PCP: Vicki Styles DO Status: REG CLI Study: Hand Min 3 Views Date of Exam: 06/17/17 Exam# [id number] Ordering Dr: Vicki Styles DO STUDY: X-RAY [...] Service support , CC: Samira Styles DO Market Development Specialist: Signed 16-Jun-2017 Cardiology Visit Report Result: Comments: See Note; NOTES: [facility] [address] [place], [place] [address] [place] [address] OFFICE VISIT Date of Service: 06/16/17 MR#: [id number] Acct: [id number] Name: RAMU DEWITT Rep #: [id number] : 1940 Provider: LUIS Sanders Age/Sex: 76/M Location: [facility] Status: Signed HPI HPI Details: RAMU DEWITT, [...] brachial Intake Visit Reasons: 3 M FU Gas Pit Worker Required: No Accompanied by: None Is patient [...] 12/12/16 [Rx Confirmed 06/14/17] Hydrocodone Bitart/Apap 5-325 [Cody 5/325] 1 tab PO Q6H PRN PRN #30 tab 12/12 [Rx Confirmed 06/14/17] apixaban 2.5 mg tablet 2.5 mg PO BID #14 tab 04/08/17 [Rx Confirmed 06/14/17] Ejection fraction %: 40 to 44 PFSH Medical History History of stroke (Chronic) 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 2. Atherosclerosis of tetlin coronary artery of tetlin heart witho ut angina pectoris I25.10 S/P [...] on any cholesterol lowering medication. 6 . superintendent terminal use of drug Z79.899 Plan - TARIQ [...] prior to saving. 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 (FAMILY MANAGER) Coding Level of Care Code Off vis,est,level 3 Diagnoses Cardiomyopathy, ischemic I25.5 Atherosclerosis of tetlin coronary artery of tetlin heart without angina pectoris I25.10 Persistent atrial fibr illation I48.1 Atrial fibrillation type: persistent Essential hypertension I10 Hypertension type: essential hypertension Mixed hyperlipidemia E78.2 Hyperlipidemia type: mixed hyperlipidemia prison us e of drug Z79.899 Coding Level of Care Code Off vis,est,level 3 Diagnoses Cardiomyopathy, ischemic I25.5 Atherosclerosis of tetlin coronary artery of tetlin heart without angina pectoris I25.10 Persi stent atrial fibrillation I48.1 Atrial fibrillation type: persistent Essential hypertension I10 Hypertension type: essential hypertension Mixed hyperlipidemia E78.2 Hyperlipidemia type: mixed hyperlipid [facility] use of drug Z79.899 06/16/17 1139 <Electronically signed by Ramu POTTER> Date Ramu Sanders NP-C 06/16/17 1417&am p;#60;Electronically signed by Jimi Greenfield MD> Cosigner Signature: Date (if applicable) Jimi Greenfield MD CC: Vicki Styles DO 08-Dec-2016 Emergency Department Summary Result: Comments: See Note; NOTES: [facility] Medical Records Department [address] [place] [address] Emergency Department Summary 12/08/16 1354 MR#: [id number] Acct: [id number] Name: RAMU DEWITT Rep #: [id number] : 1940 75 From: Robe Mary MD [...] [place] C. Computer is reading acute inferior NM. I am in disagreement. Chest x-ray reveals [...] problems, contact your Primary Care Provider. Call [facility] ([phone]) or r bethanyrt to the closest Emergency Room. Call 911 if necessary. 12/08/16 1359 <Electronically signed by Robe Mary MD> Date Robe Mary MD Cosigner Signature (If Indicated): Date CC: Jimi Greenfield MD; Vicki Styles DO 08-Dec-2016 Knee 1 or 2 Views Result: Comments: See Note; NOTES: [facility] [address] [place] [address] Knee 1 or 2 Views MR#: [id number] Acct: [id number] Name: RAMU DEWITT Rep #: [id number] D OB: 1940 M 75 From: Shahab Carlos MD PCP: Vicki Styles DO Status: REG ER Study: Knee 1 or 2 Views Date of Exam: 12/08/16 Exam# [id number] Ordering Dr: Robe Mary MD STUDY: X-RAY [...] Shahab Carlos MD at 12:57 EDT Tel [phone], Service support , CC: Vicki Styles DO; Robe Mary MD Market Development Specialist: Signed 08-Dec-2016 Chest 1 View (Portable) Result: Comments: See Note; NOTES: [facility] [address] [place] [address] Chest 1 View (Portable) MR#: [id number] Acct: [id number] Name: RAMU DEWITT Rep #: [id number] : 1940 75 From: Shahab Carlos MD PCP: Vicki Styles DO Status: [facility] ER Study: Chest 1 View (Portable) Date of Exam: 12/08/16 Exam# [id number] Ordering Dr: Robe Mary MD STUDY: X- [...] Megaly. Mild degree of CHF. Electronically Signed: hSahab Carlos MD at 12:58 EDT Tel [phone], Service support , CC: Vicki Styles DO; Robe Mary MD Market Development Specialist: Signed 07-Jan-2016 Chest 1 View (Portable) Result: Comments: See Note; NOTES: [facility] [address] [place] [address] Verda 4d Chest 1 View (Portable) MR#: [id number] Acct: [id number] Name: RAMU DEWITT Rep #: [id number] : 1940 75 From: Shahab Carlos MD PCP: Vicki Styles DO Status: REG ER Study: Chest 1 View (Portable) Date of Exam: 01/07/16 Exam# [id number] Ordering Dr: Ron Buchanan MD STUDY: X-RAY [...] Shahab Carlos MD at 15:38 EDT Tel [phone], Service support , CC: Vicki Styles DO; Jerel Buchanan MD Market Development Specialist: Signed 13-Nov-2015 Echocardiogram Complete Result: Comments: See Note; NOTES: [facility] [address] [place] [address] Echo Complete 11/13/15 1006 MR#: [id number] Acct: [id number] Name: RAMU DEWITT Rep #: [id number] : 1940 74 From: Jimi Greenfield MD Attending Dr: Precious Cole Status: REG I Ordering Dr: Precious Cole Date: 11/13/15 Location: [facility] Sex: M C Admitted: Reas [...] Dictated: 11/13/15 1006 Date Transcribed: 11/13/15 1256 Market Development Specialist: Signed 08-Oct-2015 ELECTROCARDIOGRAM, COMPLETE (ECG) (43811) Result: [MEASUREMENTS ANALYSIS] Date of Test: 10/08/2015 09:07:11; Heart Rate: 98; DE Interval: 0; QRS: 114; QT Interval: 372; Corrected QT Interval (QTc): 438; P Wave Shepherd: -90; QRS Wave Shepherd: -1; T Wave Shepherd: -33; Blood Pressure: 142/86 [ECG DIAGNOSTIC STATEMENTS] Date of Test: 10/08/2015 09:07:11; Summary: Atrial fibrillation -Nonspecific ST depression + Nonspecific T-abnormality -Nondiagnostic. ABNORMAL 09-Jul-2015 Chest 1 View (Portable) Result: Comments: See Note; NOTES: [facility] [address] [place] [address] Verdana 4d Chest 1 View (Portable) MR#: [id number] Acct: [id number] Name: RAMU MARTIN Rep #: [id number] : 1940 M 74 From: Noa Buchanan MD PCP: Vicki Styles DO Status: REG ER Study: Chest 1 View (Portable) Date of Exam: 07/09/15 Exam# [id number] Ordering Dr: Jerel Buchanan MD STUDY: X-RAY [...] at 17:21 EDT Tel , Service support [phone], RAD/Chest 1 View (Portable) IMPRESSION: New small pleural effusion with right b asilar lung consolidation. Persisting cardiomegaly. Electronically Signed: Noa Buchanan MD at 17:21 EDT Tel , Service support [phone], C C: Vicki Styles DO; Jerel Buchanan MD Market Development Specialist: Signed 24-May-2015 Nuclear Stress Test - Chemical Result: Comments: See Note; NOTES: [facility] [address] [place] [address] Verdana 4d Nuclear Stress Test - Chemical MR#: [id number] Acct: [id number] N ani: RAMU DEWITT Rep #: [id number] : 1940 74 From: Jimi Greenfield MD Primary Care: Neil NGVicki Status: [...] present. Jimi Greenfield MD T: NTS JOB: [id number] <Electronically signed by Jimi Greenfield MD> Date Jimi Greenfield MD CC: Vicki Styles DO Date Dictated: 05/24/15 1253 D ate Transcribed: 05/24/153 Market Development Specialist: Signed 18-Apr-2015 Chest 1 View (Portable) Result: Comments: See Note; NOTES: [facility] [address] [place] [address] Verdana 4d Chest 1 View (Portable) MR#: [id number] Acct: [id number] Name: RAMU MARTIN Rep #: [id number] : 1940 74 From: Shahab Carlos MD PCP: Vicki Styles DO Status: REG ER Study: Chest 1 View (Portable) Date of Exam: 04/18/15 Exam# [id number] Ordering D r: Ros Zuniga STUDY: X-RAY [...] Shahab Carlos MD at 13:57 EST Tel [phone], Service support [phone], RAD/Chest 1 View (P ortable) IMPRESSION: Thyromegaly and mild degree of CHF with bibasilar atelectasis. Electronically Signed: Shahab Carlos MD at 13:57 EST Tel [phone], Service support [phone], CC: Ros Zuniga; Vicki Styles DO Market Development Specialist: Signed 18-Apr-2015 EKG (15383) Comments: afib with RVR-- 150 -pt admits he hasnt taken bystolic >30 day Result: [MEASUREMENTS ANALYSIS] Date of Test: 04/18/2015 11:50:46; Heart Rate: 150; DE Interval: -612; QRS: 96; QT Interval: 302; Corrected QT Interval (QTc): 459; P Wave Shepherd: 1; QRS Wave Shepherd: 15; T Wave Shepherd : -90; Blood Pressure: 124/82 [ECG DIAGNOSTIC STATEMENTS] Date of Test: 04/18/2015 11:50:46; Summary: Possible atrial fibrillation -Inferior infarct -age undetermined. -Nonspecific ST depression -Nondiagnostic. ABNORMAL 06-May-2014 Sleep Study Report Result: Comments: See Note; NOTES: [facility] [address] [place] [address] Polysomnography with NCPAP MR#: [id number] Acct: [id number] Name: RAMU DEWITT Rep #: [id number] : 1940 73 From: Cezar Escalante MD PCP: Vicki Styles DO Status: REG CLI Ordering DrLaquita: Dana Osborne STONECUTTER APPRENTICE HAND-C Date: 05/01/14 Sex: M C REFERRING PHYSICIAN: COREY Shah SLEEP HISTORY: This is a CPAP titration study performed on this 73-year-old male with a body mass index of 36.5 and an [place] Sleepiness Scale score of 8. Diagnostic polysomnogram [...] reference to [facility] AHI in this report is consistent with the current Hypopnea definition according to Medicare Criteria and an AAS AHI reference is consistent with the current Hypopnea definition according to the AASM criteria. PROCEDURE: The study was attended continuously by a vtc technician. Monitored parameters included left and right [...] Study Report Result: Comments: See Note; NOTES: [facility] [address] [facility] [place] [address] Polysomnography MR#: [id number] Acct: [id number] Name: RMAU DEWITT Rep #: [id number] : 1940 73 From: Dillon Miner MD PCP: Vicki Styles DO Status: REG CLI Ordering Dr.: Vicki Styles DO Date: 03/08/14 Sex: M C REFERRING PHYSICIAN: Dr. Styles. SLEEP HIS TORY: The patient is a 73-year-old gentleman with a calculated body mass index of 36.5 and an [place] Sleepiness Scale score of 8/24. He complains [...] reference to [facility] AHI in this report is consistent with the current Hypopnea definition according t o Medicare Criteria and an AASM AHI reference is consistent with the current Hypopnea definition according to the AASM criteria. PROCEDURE: The study was attended continuously by a vtc technician. Monitored parameters included left and right EOG, frontal, central, and occipital EEG, mental and submental EMG, left and right anterior tibialis EMG, signal ECG waveform, snore, continuous airflow w ith thermistor and nasal pressure transducer, chest and abdominal plethysmography efforts, oxygen saturation with heart rate, and body positioning with video monitoring. SLEEP STUDY DATA: The [facility] polysomnogram began at 0939:27 p.m. and ended at 608972 a.m. for a total recording time of [...] Co-signature (if applicable) Date Signed 28-Dec-2013 Spirometry (48732) Result: 29-Aug-2013 Chest PA and Lateral Result: Comments: See Note; NOTES: [facility] [address] [place] [address] Radiology Report MR#: [id number] Acct: [id number] Name: RAMU DEWITT Rep #: [id number] : 1940 M 72 From: Shahab Carlos MD PCP: Vicki Styles DO Status: [facility] CLI Study: Chest PA and Lateral Date of Exam: 08/29/13 Exam# [id number] Ordering Dr: Vicki Styles DO STUDY: X-RAY [...] Shahab Carlos MD at 15:06 EDT Tel [phone], Service support [phone], CC: Vicki Styles DO Market Development Specialist: Signed 24-Aug-2013 Spirometry (40726) Comments: obstruction present Result: Social History Name Dates Details Alcohol Use Comments: Occasional alcohol use Status: Active Caffeine Use Comments: 6 - 8 Glasses per day Status: Active Non Smoker/No Tobacco Use Status: Active Tobacco use: Former smoker. Comments: 08/26/11 Status: Active Smoking Status Name Dates Details Former smoker Vital Signs Date Test Result Details 77-Wcn-703383:13 Comments: [facility] and had a glaucoma test donehearing wn [...] kg/m2 Body Surface Area Calculated 2.08 m2 4-Pna-068793:19 Pulse 68 /min Comments: Pattern: Regular Respiration [...] kg/m2 Body Surface Area Calculated 2.08 m2 4-Cxy-281262:08 Pulse 62 /min Comments: Pattern: Regular Respiration [...] Area Calculated 2.05 m2 :36 Comments: hearing [facility] and had glaucoma test done Pulse [...] kg/m2 Body Surface Area Calculated 2.18 m2 58-Xce-502883:15 Pulse 85 /min Comments: Pattern: Regular Respiration [...] kg/m2 Body Surface Area Calculated 2.2 m2 42-Pxc-249314:36 Pulse 67 /min Comments: Pattern: Regular Respiration [...] Cuff Location: Left Arm; Cuff Size: Standard 15-Fqq-305210:16 Temperature 97 f Comments: Method: Tympanic Pulse [...] kg/m2 Body Surface Area Calculated 2.13 m2 23-Wem-887567:06 Pulse 72 /min Comments: Pattern: Regular Respiration [...] kg/m2 Body Surface Area Calculated 2.1 m2 11-Qha-819465:26 Pulse 80 /min Comments: Pattern: Regular Respiration [...] :19 Comments: before- BP 142/89 Sp02- 98% X-89jfoxf-AH 150/84 Sp02 97% P-60 Temperature 97.9 f [...] 0.00 cm Results Date Description Value Details 27-Hfp-602032:06 CBC W/Diff, Automated Comments: [facility] [address] [place], [address] Absolute Lymph 1.37 {X10_3/ul} (Normal) [...] 4.6-6.2 WBC 7.1 K/mm3 (Normal) Range: 4.4-11.0 29-Xtu-429518:06 Comprehensive Metabolic Profil Comments: [facility] [address] [place], [place], [address] GAP 12 (Normal) Range: 5-15 CO2 26.0 [...] A.D.A. criteria.Please note revised GLUCOSE reference range dbnmkzazu95/02/2018. 10-Cwj-776844:06 Uric Acid Comments: [facility] [address] [place], [address] URIC 9.2 mg/dL (Abnormal) Range: 3.5-7.2 Comments: The drugs N-Acetylcysteine and Metamizole may falselydepress this assay. 14-Fny-891042:39 CBC W/Diff, Automated Comments: [facility] [address] [place], [place], [address](261) Absolute Lymph 1.40 {X10_3/ul} (Normal) Range: 0.83-4.51 [...] 4.6-6.2 WBC 6.4 K/mm3 (Normal) Range: 4.4-11.0 04-Len-824314:39 Comprehensive Metabolic Profil Comments: [facility] [address] [place], [place], [address] GAP 8 (Normal) Range: 5-15 CO2 30.0 [...] A.D.A. criteria.Please note revised GLUCOSE reference range zoatpwaip14/02/2018. 82-Sik-991602:39 Uric Acid Comments: [facility] [address] [place], [place], [address] URIC 9.1 mg/dL (Abnormal) Range: 3.5-7.2 Comments: The drugs N-Acetylcysteine and Metamizole may falselydepress this assay. 7-Gva-027606:57 HgA1C , Office (65176) HgA1C , Office 6.9 % (Normal) Range: 4.6 - 7.1 2-Zpv-740586:57 Blood Glucose , Office (42270) Blood Glucose , Office 173 (Normal) 70-Ris-327231:26 CBC W/Diff, Automated Comments: [facility] [address] [place], [place], [address] Absolute Lymph 1.30 {X10_3/ul} (Normal) Range: 0.83-4.51 [...] report for address and phone number ANTI-CCP 812387 8 {units} (Normal) Range: 0-19 Comments: Negative <20 Weak positive 20 - 39 Moderate positive 40 - 59 Strong positive >59 17-Gxm-607379:26 Comprehensive Metabolic Profil Comments: [facility] [address] [place], [place], [address] GAP 9 (Normal) Range: 5-15 CO2 28.0 [...] A.D.A. criteria.Please note revised GLUCOSE reference range ocbxcqjts81/02/2018. 46-Tyd-496919:26 CRP Comments: [facility] [address] [place], [place], [address]) C-REACTIVE PROT 8.60 mg/L (Abnormal) Range: 0.0-3.0 Comments: C-Reactive Protein (CRP) provides useful information for thediagnosis, therapy and monitoring of inflammatory processesand associated diseases. For the evaluation of Relative Riskfor Cardiovascular Dise ase, a High Sensitivity CRP (HSCRP)should be ordered. 28-Nvl-524097:26 Erythrocyte Sed Rate Comments: [facility] [address] [place], [place], [address] SED RATE 18 mm/h (Normal) Range: 0-20 32-Yqk-761659:26 Hep B Surface Antibodies Comments: [facility] (refer to report for specific site)refer to report for address and phone number Hep B Patricia AB Non Reactive (Normal) Comments: Non Reactive: Inconsistent with immunity, less than 10 mIU/mL Reactive: Consistent with immunity, greater than 9.9 mIU/ mL 05-Umc-305717:26 Hepatitis B Surface Ag Comments: [facility] (refer to report for specific site)refer to report for address and phone number HB SURF AG Negative (Normal) Comments: Performed at: - [facility] [id number] Director: Christopher Molina PhD, Phone: [phone] at: BN - [facility] [address]Fak Director: Dillon Falk MD, Phone: [phone] 35-Qgx-877915:26 Hepatitis C Antibodies Comments: [facility] (refer to report for specific site)refer to report for address and phone number HEP C AB <0.1 {s/co_ratio} (Normal) Range: 0.0-0.9 Comments: Negative: < 0.8 Indeterminate: 0.8 - 0.9 Positive: > 0.9 The CDC recommends that a positive HCV antibody result be followed up with a HCV Nucleic Acid Amplification test (894426). 79-Use-536456:26 Rheumatoid Factor Comments: [facility] [address] [facility]. [place], [place], [address] RHEUMATOID FAC < 10.0 {IU/mL} (Normal) 93-Tdj-705189:26 Uric Acid Comments: [facility] [address] [facility]. [place], [place], [address] URIC 10.7 mg/dL (Abnormal) Range: 3.5-7.2 Comments: The drugs N-Acetylcysteine and Metamizole may falselydepress this assay. 95-Szc-556961:20 CCP ANTIBODY (41705) Comments: PATIENT NOT FASTINGPERFORMED BY: [facility] [address]0640 [facility] [id number] BY: [facility] [id number] CCP Antibodies IgG/IgA 8 {units} (Normal) Range: 0-19 Comments: Negative <20 Weak positive 20 - 39 Moderate positive 40 - 59 Strong positive >59 63-Slv-135037:20 SED RATE ERYTHROCYTE Comments: PATIENT NOT FASTINGPERFORMED BY: Dindong Rq[address] [place] [address] [id number] BY: Informative[address] [id number] (75193) Sedimentation Rate-Westergren 32 mm/h (Abnormal) Range: 0-30 72-Dqt-518229:20 C-REACTIVE PROTEIN Comments: PATIENT NOT FASTINGPERFORMED BY: [facility] [facility] [place] [id number] BY: [address] [id number] (57075) C-Reactive Protein, Quant 24.6 mg/L (Abnormal) Range: 0.0-4.9 94-Ezw-357619:20 RHEUMATOID FACTOR-QUANT Comments: PATIENT NOT FASTINGPERFORMED BY: [place] [address]140[address] [facility] [place] [id number] BY: [address] [id number] (45363) RA Latex Turbid. <10.0 {IU/mL} (Normal) Range: 0.0-13.9 78-Jpx-497262:20 THAIS (ANTINUCLEAR ANTIBODY) Comments: PATIENT NOT FASTINGPERFORMED BY: [facility] [facility] [place] [id number] BY: [address] [id number] (14234) THAIS Direct Negative (Normal) 0-Zsq-167124:59 MAGNESIUM (05478) Comments: PATIENT WAS FASTINGPERFORMED BY: [facility] [facility] [place] [id number] Magnesium, Serum 2.1 mg/dL (Normal) Range: 1.6-2.3 4-Lhs-688930:59 PHOSPHORUS (93719) Comments: PATIENT WAS FASTINGPERFORMED BY: [facility] [facility] [place] [id number] Phosphorus, Serum 3.1 mg/dL (Normal) Range: 2.5-4.5 8-Wsh-817561:59 PARATHORMONE (51168) Comments: PATIENT WAS FASTINGPERFORMED BY: [facility] [facility] [place] [id number] PTH, Intact 67 pg/mL (Abnormal) Range: 15-65 6-Odu-067579:59 CALCIFEDIOL (71234) Comments: PATIENT WAS FASTINGPERFORMED BY: [facility] [facility] [place] [id number] Vitamin D, 25-Hydroxy 21.5 ng/mL (Abnormal) Range: 30.0-100.0 Comments: Vitamin D deficiency has been defined by the [place] of[place] and an Endocrine Society practice guideline as alevel of serum 25-OH vitamin D less than 20 ng/mL (1,2).The Endocrine Society went on to further define vitamin Dinsufficiency as a level between 21 and 29 ng/mL (2).1. IOM ([place] of Medicine). 2010. Dietary reference intakes for calcium and D. [place]: The National Academies Press.2. Marcelle MF, Justin PURCELL, Amira ELIAS, et al. Evaluation, treatment, and prevention of vitamin D deficiency: an Endocrine Society clinical practice guideline. JCEM. 2010; 96(7):1911-30. 0-Jde-793599:59 TSH (64617) Comments: PATIENT WAS FASTINGPERFORMED BY: 51.com LabNorthcore TechnologiesLovelace Women's HospitalPnbjip1273 [facility] [id number] TSH 3.200 {uIU/mL} (Normal) Range: 0.450-4.500 9-Vvf-234606:59 METABOLIC PANEL, COMPREHENSIVE Comments: PATIENT WAS FASTINGPERFORMED BY: 51.com LabNorthcore TechnologiesRutgers - University Behavioral HealthCareZheqtc1380 [facility] [id number] (77513) ALT (SGPT) 13 [iU]/L (Normal) Range: 0-44 [...] Glucose, Serum 166 mg/dL (Abnormal) Range: 65-99 8-Wml-905298:59 LIPID PANEL (88663) Comments: PATIENT WAS FASTINGPERFORMED BY: [facility] [id number] LDL/HDL Ratio 2.4 {ratio_units} (Normal) Range: 0.0-3.6 Comments: LDL/HDL Ratio Men Women 1/2 Avg.Risk 1.0 1.5 Av g.Risk 3.6 3.2 2X Avg.Risk 6.2 5.0 3X Avg.Risk 8.0 6.1 LDL Cholesterol Calc 101 mg/dL (Abnormal) Range: 0-99 VLDL Cholesterol Bharat 28 mg/dL (Normal) Range: 5-40 HDL Cholesterol 42 mg/dL (Normal) Triglycerides 139 mg/dL (Normal) Range: 0-149 Cholesterol, Total 171 mg/dL (Normal) Range: 100-199 2-Kfe-146368:59 CBC W/AUTO DIFF WBC (88867) Comments: PATIENT WAS FASTINGPERFORMED BY: [employer]6370 [facility] [id number] Immature Grans (Abs) 0.0 {x10E3/uL} (Normal) Range: [...] (Normal) Range: 3.4-10.8 :51 HgA1C , Office (27996) HgA1C , Office 7.0 % (Normal) Range: 4.6 - 7.1 :51 Blood Glucose , Office (87368) Blood Glucose , Office 197 (Normal) 2-Ytw-188853:35 Basic Metabolic Profile (BMP) Comments: 'TROP' Serial specimen #1, #2, #3, or #4: 1[facility] [address] [place], [address] GAP 11 (Normal) Range: 5-15 CO2 25.0 [...] 126 mg/dLsuggests DIABETES MELLITUS per A.D.A. criteria. 4-Fjk-215591:35 BNP,B-Type NATRIURETIC PEPTIDE Comments: [facility] Nf[address]serol[address] [facility] [address] [place], [place], [address] B-TYPE KAE PEP 1319.4 pg/mL (Abnormal) Range: 0-100 :35 CBC W/Diff, Automated Comments: [facility] [address] [place], [place], [address] Absolute Lymph 0.87 {X10_3/ul} (Normal) Range: 0.83-4.51 [...] 4.6-6.2 WBC 12.7 K/mm3 (Abnormal) Range: 4.4-11.0 4-Xec-290139:35 Troponin-I Comments: 'TROP' Serial specimen #1, #2, #3, or #4: [address] [place] [address] [address] [place], [place], [address] TROPONIN-I 0.03 ng/mL (Normal) Comments: TROPONIN-I EXPECTED VALUES <0.05 NEGATIVE 0.06 - 0.59 AT RISK OF NM > OR = 0.60 SUGGEST NM 1-Auj-902257:35 Microscopic Examination Comments: PATIENT WAS FASTINGPERFORMED BY: [facility]70 [place] [facility] IntegritySaint [facility] [id number] Bacteria Few (Normal) Mucus Threads Present (Normal) Cast Type Hyaline casts (Normal) Casts Present {/lpf} (Abnormal) Epithelial Cells (non renal) None seen {/hpf} (Normal) Range: 0 - 10 RBC 0-2 {/hpf} (Normal) Range: 0 - 2 WBC 0-5 {/hpf} (Normal) Range: 0 - 5 4-Dio-488456:00 PSA (PROSTATE SPECIFIC Comments: send copy to dr bianchi; PATIENT NOT FASTINGPERFORMED BY: [facility]70 [facility] [id number] ANTIGEN) (V76.44) Prostate Specific Ag, 2.1 ng/mL (Normal) Range: 0.0-4.0 Serum Comments: Temo ECLIA methodology. .According to the Indian Urological Association, Serum PSA shoulddecrease and remain at undetectable levels after radicalprostatectomy. The AUA defines biochemical recurrence as an initialPSA value 0.2 ng/mL or greater followed by a subsequent confirmatoryPSA value 0.2 ng/mL or greater.Values obtained with d ifferent assay methods or kits cannot be usedinterchangeably. Results cannot be interpreted as absolute evidenceof the presence or absence of malignant disease. :35 TSH (27156) Comments: PATIENT WAS FASTINGPERFORMED BY: InformativeLovelace Women's HospitalEkzfxy8918 [facility] [id number] TSH 4.070 {uIU/mL} (Normal) Range: 0.450-4.500 :35 URINALYSIS, W/ MICRO (88407) Comments: PATIENT WAS FASTINGPERFORMED BY: InformativeLovelace Women's HospitalLfyzsj5583 [facility] [id number]; can review at next appt Microscopic Examination See below: (Normal) Comments: Microscopic was indicated and was performed. Nitrite, Urine Negative (Normal) Urobilinogen,Semi-Qn 1.0 mg/dL (Normal) Range: 0.2-1.0 Bilirubin Negative (Normal) Occult Blood Negative (Normal) Ketones Negative (Normal) Glucose Negative (Normal) Protein 1+ (Abnormal) WBC Esterase Negative (Normal) Appearance Clear (Normal) Urine-Color Yellow (Normal) pH 7.0 (Normal) Range: 5.0-7.5 Specific [place] 1.013 (Normal) Range: 1.005-1.030 :35 MICROALBUMIN: CREATININE RATIO Comments: PATIENT WAS FASTINGPERFORMED BY: InformativeLovelace Women's HospitalJrqghl9145 [facility] [id number] (72979) AND (49963) Microalb/Creat Ratio 136.1 {mg/g_creat} (Abnormal) Range: 0.0-30.0 Microalbumin, Urine 118.3 ug/mL (Normal) Creatinine, Urine 86.9 mg/dL (Normal) :35 METABOLIC PANEL, COMPREHENSIVE Comments: PATIENT WAS FASTINGPERFORMED BY: VinoboCarondelet HealthProabo3253 [facility] [id number] (71918) ALT (SGPT) 10 [iU]/L (Normal) Range: 0-44 [...] Glucose, Serum 126 mg/dL (Abnormal) Range: 65-99 4-Wvi-742146:35 LIPID PANEL (86602) Comments: PATIENT WAS FASTINGPERFORMED BY: NicOx [facility] [id number] LDL/HDL Ratio 2.4 {ratio_units} (Normal) Range: 0.0-3.6 Comments: LDL/HDL Ratio Men Women 1/2 Avg.Risk 1.0 1.5 Av g.Risk 3.6 3.2 2X Avg.Risk 6.2 5.0 3X Avg.Risk 8.0 6.1 LDL Cholesterol Calc 99 mg/dL (Normal) Range: 0-99 VLDL Cholesterol Bharat 25 mg/dL (Normal) Range: 5-40 HDL Cholesterol 41 mg/dL (Normal) Triglycerides 123 mg/dL (Normal) Range: 0-149 Cholesterol, Total 165 mg/dL (Normal) Range: 100-199 5-Lra-645944:35 CBC W/AUTO DIFF WBC (01837) Comments: PATIENT WAS FASTINGPERFORMED BY: indeni [facility] [place] [id number] Immature Grans (Abs) 0.0 {x10E3/uL} (Normal) Range: [...] 4.14-5.80 WBC 6.7 {x10E3/uL} (Normal) Range: 3.4-10.8 7-Pgy-418543:35 CALCIFIDIOL (23126) VIT D 25 Comments: PATIENT WAS FASTINGPERFORMED BY: [facility] Itjawz1094 [facility] [id number] Vitamin D, 25-Hydroxy 37.2 ng/mL (Normal) Range: 30.0-100.0 Comments: Vitamin D deficiency has been defined by the [place] of[place] and an Endocrine Society practice guideline as alevel of serum 25-OH vitamin D less than 20 ng/mL (1,2).The Endocrine Society went on to further define vitamin Dinsufficiency as a level between 21 and 29 ng/mL (2).1. IOM ([place]). 2010. Dietary reference intakes for calcium and D. [place]: The National Academies Press.2. Justin Berkowitz, Amira ELIAS, et al. Evaluation, treatment, and prevention of vitamin D deficiency: an Endocrine Society clinical practice guideline. JCEM. 2010; 96(7):1911-30. 3-Tbh-229746:21 HgA1C , Office (26029) HgA1C , Office 6.2 % (Normal) Range: 4.6 - 7.1 :21 Blood Glucose , Office (31667) Blood Glucose , Office 162 (Normal) :56 Microscopic Examination Comments: PATIENT WAS FASTINGPERFORMED BY: FONU2 Dhiqjb0473 [facility] [id number] Bacteria None seen (Normal) Mucus Threads Present (Normal) Cast Type Hyaline casts (Normal) Casts Present {/lpf} (Abnormal) Epithelial Cells (non renal) 0-10 {/hpf} (Normal) Range: 0 - 10 RBC 0-2 {/hpf} (Normal) Range: 0 - 2 WBC None seen {/hpf} (Normal) Range: 0 - 5 :56 CALCIFIDIOL (80351) VIT D 25 Comments: PATIENT WAS FASTINGPERFORMED BY: 51.com LabNorthcore Technologies Ezjvka8115 [facility] [id number] Vitamin D, 25-Hydroxy 34.6 ng/mL (Normal) Range: 30.0-100.0 Comments: Vitamin D deficiency has been defined by the [place] and an Endocrine Society practice guideline as alevel of serum 25-OH vitamin D less than 20 ng/mL (1,2).The Endocrine Society went on to further define vitamin Dinsufficiency as a level between 21 and 29 ng/mL (2).1. IOM ([place]). 2010. Dietary reference intakes for calcium and D. [place]: The National Academies Press.2. Justin Berkowitz, Amira ELIAS, et al. Evaluation, treatment, and prevention of vitamin D deficiency: an Endocrine Society clinical practice guideline. JCEM. 2010; 96(7):1911-30. 6-Ero-577185:56 TSH (27240) Comments: PATIENT WAS FASTINGPERFORMED BY: InformativeLovelace Women's HospitalZoqogf7488 [facility] [id number] TSH 5.530 {uIU/mL} (Abnormal) Range: 0.450-4.500 6-Dgq-672722:56 URINALYSIS, W/ MICRO (05446) Comments: PATIENT WAS FASTINGPERFORMED BY: Informative Bwibko5952 [facility] [id number] Microscopic Examination See below: (Normal) Comments: Microscopic was indicated and was performed. Microscopic Examination MICRON (Normal) Comments: Microscopic follows if indicated. Nitrite, Urine Negative (Normal) Urobilinogen,Semi-Qn 1.0 mg/dL (Normal) Range: 0.2-1.0 Bilirubin Negative (Normal) Occult Blood Negative (Normal) Ketones Negative (Normal) Glucose Negative (Normal) Protein Negative (Normal) WBC Esterase Negative (Normal) Appearance Clear (Normal) Urine-Color Yellow (Normal) pH 7.0 (Normal) Range: 5.0-7.5 Specific [place] 1.009 (Normal) Range: 1.005-1.030 3-Zrs-533429:56 MICROALBUMIN: CREATININE RATIO Comments: PATIENT WAS FASTINGPERFORMED BY: Informative Yhbcwn7310 [facility] [id number] (04874) AND (25776) Microalb/Creat Ratio <12.1 {mg/g_creat} (Normal) Range: 0.0-30.0 Microalbumin, Urine <3.0 ug/mL (Normal) Creatinine, Urine 24.7 mg/dL (Normal) :56 METABOLIC PANEL, COMPREHENSIVE Comments: PATIENT WAS FASTINGPERFORMED BY: Informative [employer] [facility] [id number] (62258) ALT (SGPT) 8 [iU]/L (Normal) Range: 0-44 [...] Glucose, Serum 109 mg/dL (Abnormal) Range: 65-99 0-Byi-490836:56 CBC W/AUTO DIFF WBC (57799) Comments: PATIENT WAS FASTINGPERFORMED BY: LabCoRutgers - University Behavioral HealthCareBhsdnj0958 [facility] [id number] Immature Grans (Abs) 0.0 {x10E3/uL} (Normal) Range: [...] 4.14-5.80 WBC 6.9 {x10E3/uL} (Normal) Range: 3.4-10.8 8-Cjb-307485:56 LIPID PANEL (93137) Comments: PATIENT WAS FASTINGPERFORMED BY: [facility]Tr[facility] Hospital6370 [facility] [id number] LDL/HDL Ratio 2.3 {ratio_units} (Normal) Range: 0.0-3.6 [...] (Normal) Range: 100-199 :36 HgA1C , Office (89364) HgA1C , Office 6.4 % (Normal) Range: 4.6 - 7.1 :36 Blood Glucose , Office (34371) Blood Glucose , Office 129 (Normal) :20 Blood Glucose , Office (32905) Blood Glucose , Office 111 (Normal) 91-Hqu-201141:20 HgA1C , Office (78753) HgA1C , Office 6.4 % (Normal) Range: 4.6 - 7.1 :25 CBC W/AUTO DIFF WBC (39310) Comments: PATIENT NOT FASTINGPERFORMED BY: LabCoRutgers - University Behavioral HealthCareAfbpnp2901 [facility] [id number] Immature Grans (Abs) 0.0 {x10E3/uL} (Normal) Range: [...] 4.14-5.80 WBC 6.0 {x10E3/uL} (Normal) Range: 3.4-10.8 38-Yxj-498823:25 METABOLIC PANEL, COMPREHENSIVE Comments: PATIENT NOT FASTINGPERFORMED BY: TERRIE [facility] Pmfbcv3243 [facility] [id number] (34034) ALT (SGPT) 13 [iU]/L (Normal) Range: 0-44 [...] Glucose, Serum 158 mg/dL (Abnormal) Range: 65-99 7-Ssp-664427:03 Basic Metabolic Profile (BMP) Comments: 'TROP' Serial specimen #1, #2, #3, or #4: 1[facility] [address] [place], [address] GAP 6 (Normal) Range: 5-15 [...] 126 mg/dLsuggests DIABETES MELLITUS per A.D.A. criteria. 1-Dby-634737:03 BNP,B-Type NATRIURETIC PEPTIDE Comments: [facility] [address] [place], [address] B-TYPE KAE PEP 732.8 pg/mL (Abnormal) Range: 0-100 6-Wdi-082298:03 CBC W/Diff, Automated Comments: [facility] [address]bejqh[address] [place], [address] Absolute Lymph 0.93 {X10_3/ul} (Normal) [...] 4.6-6.2 WBC 6.8 K/mm3 (Normal) Range: 4.4-11.0 9-Gin-038975:03 Liver Profile Comments: 'TROP' Serial specimen #1, #2, #3, or #4: [facility] [address] [place], [address] D BILI 0.39 mg/dL (Abnormal) Range: 0.00-0.30 T BILI 1.40 mg/dL (Abnormal) Range: 0.20-1.00 ALT 16 U/L (Normal) Range: 12-78 ALK P 90 U/L (Normal) Range: 50-136 AST 18 U/L (Normal) Range: 15-37 GLOB 3.7 g/dL (Abnormal) Range: 2.3-3.5 ALB 3.4 g/dL (Normal) Range: 3.4-5.0 T PROT 7.1 g/dL (Normal) Range: 6.4-8.2 2-Dbs-355474:03 Troponin-I Comments: 'TROP' Serial specimen #1, #2, #3, or #4: 1[facility] Jowiiejyef24[address] [facility] [address] [place], [place], [address] TROPONIN-I < 0.02 ng/mL (Normal) Comments: TROPONIN-I EXPECTED VALUES <0.05 NEGATIVE 0.06 - 0.59 AT RISK OF NM > OR = 0.60 SUGGEST NM 5-Qcc-852114:07 Urinalysis, Office (38489) UA - LEUKOCYTE ESTERASE Negative (Normal) UA - NITRITE Negative (Normal) URINE UROBILINGN KATELIN TIMED 4 mg/dL (Normal) UA - PROTEIN 30 mg/dL (Normal) UA - PH 7 (Normal) UA - BLOOD Negative (Normal) UA - SPECIFIC GRAVITY 1.020 (Normal) UA - KETONES Negative mg/dL (Normal) UA - BILIRUBIN Negative (Normal) UA - GLUCOSE Negative (Normal) 61-Sxo-395536:59 HgA1C , Office (75254) HgA1C , Office 6.3 % (Normal) Range: 4.6 - 7.1 11-Jmr-961838:59 Blood Glucose , Office (55286) Blood Glucose , Office 177 (Normal) 73-Suh-30577:44 Basic Metabolic Profile (BMP) Comments: [facility] Cyglseacyg1154 [facility] [address] [place], [place], [address] GAP 7 (Normal) Range: 5-15 CO2 32.0 [...] 126 mg/dLsuggests DIABETES MELLITUS per A.D.A. criteria. 4-Vuw-939671:32 Microscopic Examination Comments: PATIENT NOT FASTINGPERFORMED BY: [facility] [id number] Bacteria None seen (Normal) Mucus Threads Present (Normal) Cast Type Hyaline casts (Normal) Casts Present {/lpf} (Abnormal) Epithelial Cells (non renal) 0-10 {/hpf} (Normal) Range: 0 - 10 RBC 0-2 {/hpf} (Normal) Range: 0 - 2 WBC 0-5 {/hpf} (Normal) Range: 0 - 5 :32 CALCIFIDIOL (04051) VIT D 25 Comments: PATIENT NOT FASTINGPERFORMED BY: Dindong Azlatt8582 [facility]EC[facility] [id number] Vitamin D, 25-Hydroxy 34.1 ng/mL (Normal) Range: 30.0-100.0 Comments: Vitamin D deficiency has been defined by the [place] of[place] and an Endocrine Society practice guideline as alevel of serum 25-OH vitamin D less than 20 ng/mL (1,2).The Endocrine Society went on to further define vitamin Dinsufficiency as a level between 21 and 29 ng/mL (2).1. IOM ([place]). 2010. Dietary reference intakes for calcium and D. [place]: The National Academies Press.2. Marcelle MF, Justin [place], Amira ELIAS, et al. Evaluation, treatment, and prevention of vitamin D deficiency: an Endocrine Society clinical practice guideline. JCEM. 2010; 96(7):1911-30. :32 TSH (68122) Comments: PATIENT NOT FASTINGPERFORMED BY: [facility]6370 [facility] [id number] TSH 5.190 {uIU/mL} (Abnormal) Range: 0.450-4.500 5-Icz-880676:32 URINALYSIS, W/ MICRO (66744) Comments: PATIENT NOT FASTINGPERFORMED BY: [facility]6370 [facility] [id number] Microscopic Examination See below: (Normal) Comments: Microscopic was indicated and was performed. Microscopic Examination MICRON (Normal) Comments: Microscopic follows if indicated. Nitrite, Urine Negative (Normal) Urobilinogen,Semi-Qn 1.0 mg/dL (Normal) Range: 0.2-1.0 Bilirubin Negative (Normal) Occult Blood Negative (Normal) Ketones Negative (Normal) Glucose Negative (Normal) Protein Trace (Normal) WBC Esterase Negative (Normal) Appearance Clear (Normal) Urine-Color Yellow (Normal) pH 6.5 (Normal) Range: 5.0-7.5 Specific [place] 1.019 (Normal) Range: 1.005-1.030 0-Prj-597868:32 MICROALBUMIN: CREATININE RATIO Comments: PATIENT NOT FASTINGPERFORMED BY: [place] 2140270 [facility] [id number] (92068) AND (51132) Microalb/Creat Ratio 43.8 {mg/g_creat} (Abnormal) Range: 0.0-30.0 Microalbumin, Urine 51.0 ug/mL (Normal) Creatinine, Urine 116.5 mg/dL (Normal) 2-Jzf-297025:32 METABOLIC PANEL, COMPREHENSIVE Comments: PATIENT NOT FASTINGPERFORMED BY: [facility]6370 [facility] [id number] (08974) ALT (SGPT) 13 [iU]/L (Normal) Range: 0-44 [...] Glucose, Serum 122 mg/dL (Abnormal) Range: 65-99 1-Jit-133031:32 LIPID PANEL (10925) Comments: PATIENT NOT FASTINGPERFORMED BY: [employer]6370 [facility] [id number] LDL/HDL Ratio 1.9 {ratio_units} (Normal) Range: 0.0-3.6 [...] Cholesterol, Total 145 mg/dL (Normal) Range: 100-199 8-Kdk-905400:32 CBC W/AUTO DIFF WBC Comments: PATIENT NOT FASTINGPERFORMED BY: [facility]70 [facility] [id number] Information: [id number] (02253) Immature Grans (Abs) 0.0 {x10E3/uL} (Normal) Range: [...] 4.14-5.80 WBC 6.5 {x10E3/uL} (Normal) Range: 3.4-10.8 9-Hun-477517:32 PSA (PROSTATE SPECIFIC Comments: send copy to dr mast; PATIENT NOT FASTINGPERFORMED BY: [facility]Tr[facility]6370 [facility] [id number] ANTIGEN) (V76.44) Prostate Specific Ag, 2.1 ng/mL (Normal) Range: 0.0-4.0 Serum Comments: Foomanchew.comIA methodology. .According to the [place] U[employer] Association, Serum PSA shoulddecrease and remain at undetectable levels after radicalprostatectomy. The AUA defines biochemical recurrence as an initialPSA value 0.2 ng/mL or greater followed by a subsequent confirmatoryPSA value 0.2 ng/mL or greater.Values obtained with d ifferent assay methods or kits cannot be usedinterchangeably. Results cannot be interpreted as absolute evidenceof the presence or absence of malignant disease. 98-Keb-905825:20 Metabolic Panel, Basic Comments: PATIENT NOT FASTINGPERFORMED BY: LabCoRutgers - University Behavioral HealthCareLzbxyx0925 [facility] [id number] Information: [id number] (01575) Calcium, Serum 9.0 mg/dL (Normal) Range: 8.6-10.2 [...] Glucose, Serum 90 mg/dL (Normal) Range: 65-99 7-Znt-522565:26 BNP,B-Type NATRIURETIC PEPTIDE Comments: [facility] F[address]dsfdzjf[address] [facility] [place], [address] B-TYPE KAE PEP 247.5 pg/mL (Abnormal) Range: 0-100 0-Wbb-108096:26 CBC W/Diff, Automated Comments: [facility] Atmlrxnnrj[address] [facility] [place], [address] Absolute Lymph 0.87 {X10_3/ul} (Normal) [...] 4.6-6.2 WBC 8.2 K/mm3 (Normal) Range: 4.4-11.0 3-Cbi-010102:08 Basic Metabolic Profile (BMP) Comments: [facility] [address] [place], [address] GAP 11 (Normal) Range: 5-15 CO2 30.0 [...] <126 mg/dLsuggests IMPAIRED HOMEOSTASIS per A.D.A. criteria. 5-Ikq-988025:00 Basic Metabolic Profile (BMP) Comments: [facility] Yne[address]pwgj[address] [place], [place], [phone](762) GAP 12 (Normal) Range: 5-15 CO2 26.0 [...] 126 mg/dLsuggests DIABETES MELLITUS per A.D.A. criteria. 57-Zsi-477790:33 Basic Metabolic Profile (BMP) Comments: [facility] Inuddutpyl[address] [place], [place], [phone](499) GAP 5 (Normal) Range: 5-15 CO2 26.0 [...] 126 mg/dLsuggests DIABETES MELLITUS per A.D.A. criteria. 56-Elc-729690:07 Basic Metabolic Profile (BMP) Comments: [facility] Ymvmbcbruj[address] [facility] [place], [place], [address] GAP 0 (Abnormal) Range: 5-15 CO2 30.0 [...] 7-18 GLU 101 mg/dL (Normal) Range: 70-110 48-Ntj-130193:07 BNP,B-Type NATRIURETIC PEPTIDE Comments: [facility] [address] [place], [place], [address] B-TYPE KAE PEP 560.9 pg/mL (Abnormal) Range: 0-100 03-Fkz-533478:04 ALBUMIN SERUM (98304) Comments: PATIENT NOT FASTINGPERFORMED BY: LabCoRutgers - University Behavioral HealthCareTecmvo3508 [facility] [id number] Albumin, Serum 3.4 g/dL (Abnormal) Range: 3.5-4.8 46-Zal-880035:04 BASIC METABOLIC w/Ionized Comments: PATIENT NOT FASTINGPERFORMED BY: LabCoR[facility] Behavioral HealthCareSzlgvz6910 [facility] [id number] Information: [id number] Ca++ (30926) Calcium, Serum 8.5 mg/dL (Abnormal) Range: 8.6-10.2 [...] Glucose, Serum 171 mg/dL (Abnormal) Range: 65-99 7-Myv-137443:34 Calcium Ionized Comments: [facility] (refer to report for specific site)refer to report for address [place] phone [place] [address] Test not performed (Normal) Comments: Patient has been credited for testing not performed. Pleasehave patient return if testing is still required. 0-Vcb-848001:36 Anion Gap Comments: [facility] [address] [place], [place], [address] GAP 3 (Abnormal) Range: 5-15 2-[id number] BUN 18 mg/dL (Normal) Comments: [facility] [id number] [place], [place], [address] Range: 7-18 [id number] BUN/Creat Ratio Comments: [facility] [id number] [place], [place], [address]([phone]) BUN/CRE 11.0 {RATIO} (Normal) Range: 10-20 [id number] Carbon Dioxide Comments: [address] [place], [id number] CO2 30.0 mmol/L (Normal) Range: 21.0-32.0 6-Xyb-597967:36 Chloride Comments: [address] [place], [address] CL 109 mmol/L (Abnormal) Range: 98-107 :36 Creatinine, Serum Comments: [address] [place] [address] CREAT,SERUM 1.64 mg/dL (Abnormal) Range: 0.70-1.30 Comments: The validity of the calculated GFR AND GFRAA in patients over70 years has not been determined. Clinical correlation isessential. :36 Glucose Comments: [address] [place], [id number] GLU 157 mg/dL (Abnormal) Range: 70-110 Comments: Fasting Glucose result greater than or equal to 126 mg/dLsuggests DIABETES MELLITUS per A.D.A. criteria. :36 Potassium Comments: [address] [place], [id number] K 4.3 mmol/L (Normal) Range: 3.5-5.1 2-Sct-963453:36 Sodium Level Comments: [address] [place], [id number] NA 142 mmol/L (Normal) Range: 136-145 00-Ejz-133078:36 Urinalysis, Office (69442) UA - LEUKOCYTE ESTERASE Negative (Normal) UA - NITRITE Negative (Normal) URINE UROBILINGN KATELIN TIMED Normal mg/dL (Normal) UA - PROTEIN Negative mg/dL (Normal) UA - PH 6.0 (Normal) Comments: 5.5 UA - BLOOD Hemolyzed Trace (Normal) UA - SPECIFIC GRAVITY 1.005 (Normal) UA - KETONES Negative mg/dL (Normal) UA - BILIRUBIN Negative (Normal) UA - GLUCOSE Negative (Normal) 69-Vvw-558215:06 Metabolic Panel, Basic Comments: PATIENT NOT FASTINGPERFORMED BY: VinoboSteven Ville 9593570 [facility] [id number] Information: [id number]; will review at next appt. (49031) Calcium, Serum 9.3 mg/dL (Normal) Range: 8.6-10.2 [...] Glucose, Serum 111 mg/dL (Abnormal) Range: 65-99 40-Ong-694538:07 URINE DAWIT CULTURE-IDENTIFICATN Comments: PATIENT NOT FASTINGPERFORMED BY: [facility]Tr[facility]6370 [facility] [id number] (71899) Result 1 MUG (Normal) Comments: Mixed urogenital flora1,000 Colonies/mL Urine Culture,Comprehensive Final report (Normal) 79-Xuj-891622:07 URINALYSIS (26625) Comments: PATIENT NOT FASTINGPERFORMED BY: [place] 2140270 [facility] [id number] Information: [id number] Microscopic Examination MICNIP (Normal) Comments: Microscopic not indicated and not performed. Nitrite, Urine Negative (Normal) Urobilinogen,Semi-Qn 0.2 mg/dL (Normal) Range: 0.2-1.0 Bilirubin Negative (Normal) Occult Blood Negative (Normal) Ketones Negative (Normal) Glucose Negative (Normal) Protein Negative (Normal) WBC Esterase Negative (Normal) Appearance Clear (Normal) Urine-Color Yellow (Normal) pH 6.0 (Normal) Range: 5.0-7.5 Specific [place] 1.010 (Normal) Range: 1.005-1.030 3-Wob-702709:02 Basic Metabolic Profile (BMP) Comments: [facility] R[address]hr[address] [place], [place], [id number] GAP 9 (Normal) Range: 5-15 CO2 33.0 [...] 126 mg/dLsuggests DIABETES MELLITUS per A.D.A. criteria. 1-Iuj-032997:02 BNP,B-Type NATRIURETIC PEPTIDE Comments: [facility] [address] [place], [place], [id number] B-TYPE KAE PEP 202.1 pg/mL (Abnormal) Range: 0-100 08-Ply-292607:55 BNP,B-Type NATRIURETIC PEPTIDE Comments: [facility] R[address]mvg[address] [place], [place], [address] B-TYPE KAE PEP 288.3 pg/mL (Abnormal) Range: 0-100 86-Szb-699127:48 BNP,B-Type NATRIURETIC PEPTIDE Comments: [facility] Nwuq[address]ium[address] [place], [place], [address] B-TYPE KAE PEP 231.4 pg/mL (Abnormal) Range: 0-100 81-Bkp-694395:33 ASSAY, NATIURETIC PEPTIDE Comments: PATIENT NOT FASTINGPERFORMED BY: [facility] Xarutx17[address] [place] [id number] Information: [id number] (50044) B-Type Natriuretic Peptide 296.5 pg/mL (Abnormal) Range: 0.0-100.0 61-Lkk-402984:15 Basic Metabolic Profile (BMP) Comments: Serial Specimen #1, #2 or #3? 1'TROP' Serial specimen #1, #2, #3, or #4: 1[facility] [address]zk[address] [place], [address] GAP 7 (Normal) Range: 5-15 [...] 126 mg/dLsuggests DIABETES MELLITUS per A.D.A. criteria. 63-Ssx-114723:15 BNP,B-Type NATRIURETIC PEPTIDE Comments: [facility] Op[address]wmbiil[address] [place], [address] B-TYPE KAE PEP 200.1 pg/mL (Abnormal) Range: 0-100 46-Ugi-683250:15 CBC W/Diff, Automated Comments: [facility] T[address] [place], [address] Absolute Lymph 1.42 {X10_3/ul} (Normal) [...] 4.6-6.2 WBC 7.6 K/mm3 (Normal) Range: 4.4-11.0 08-Nly-445718:15 CK-MB Quantitative and Index Comments: Serial Specimen #1, #2 or #3? 1'TROP' Serial specimen #1, #2, #3, or #4: [facility] [address]ix[address] [place], [address] CKRI 1.6 % (Abnormal) Range: 0.0-1.4 Comments: RELATIVE INDEX >1.5% IS PRESUMPTIVELY POSITIVE CPKMB 3.3 ng/mL (Normal) Range: 0.0-5.0 Comments: CK-MB and RI Interpretation MB Relative Index Non-AMI <or= 5 NA Indeterminate > 5 <or= 4 AMI > 5 > 4 CPK TOTAL 208 U/L (Normal) Range: 39-308 43-Jkr-917077:15 Troponin-I Comments: Serial Specimen #1, #2 or #3? 1'TROP' Serial specimen #1, #2, #3, or #4: 1[facility] [address]qw[address] [place], [address] TROPONIN-I 0.03 ng/mL (Normal) Comments: TROPONIN-I EXPECTED VALUES <0.05 NEGATIVE 0.06 - 0.59 AT RISK OF NM > OR = 0.60 SUGGEST NM 26-Asj-679653:06 HgA1C , Office (51175) HgA1C , Office 8.0 % (Abnormal) Range: 4.6 - 7.1 83-Cks-535201:06 Blood Glucose , Office (04562) Blood Glucose , Office 143 (Normal) 7-Vho-153705:12 BUN 15 mg/dL (Normal) Comments: Test performed at:[facility] [address] [place] [address] Range: 7-18 0-Mkz-924214:12 Partial Thromboplast Time Comments: Test performed at:[facility] [address] [place] [address] PTT 25.9 s (Normal) Range: 24.1-36.2 5-Wlv-060602:12 Platelet Count Comments: Test performed at:[facility] [address] [place] [address] PLT 243 K/mm3 (Normal) Range: 150-450 7-Ozn-778246:12 Prothrombin Time w/INR Comments: Test performed at:[facility] [address] [place] [address] INR 0.9 (Normal) PROTIME 12.3 s (Normal) Range: 11.7-14.9 7-Pcs-197582:12 Serum Creatinine AND GFR Comments: Test performed at:[facility] [address] [place], [place] [address] CREAT,SERUM 1.3 mg/dL (Normal) Range: 0.8-1.3 17-Jem-969464:09 HgA1C , Office (24981) HgA1C , Office 7.1 % (Normal) Range: 4.6 - 7.1 00-Xug-347599:09 Blood Glucose , Office (50802) Blood Glucose , Office 141 (Normal) :43 BUN 14 mg/dL (Normal) Range: 7-18 :43 CRE CREAT 1.1 mg/dL (Normal) Range: 0.8-1.3 :43 PLT 184 K/mm3 (Normal) Range: 150-450 :43 PT INR 0.9 (Normal) PTP 12.4 s (Normal) Range: 11.7-14.9 Comments: Please note revised PROTIME reference range uvkhtfqfh20/14/15. :43 PTT 26.3 s (Normal) Range: 24.1-36.2 41-Pmd-024541:25 HgA1C , Office (61748) HgA1C , Office 6.7 % (Normal) Range: 4.6 - 7.1 72-Jcl-260089:25 Blood Glucose , Office (39101) Blood Glucose , Office 140 (Normal) 00-Sim-687797:25 Microscopic Examination Comments: PATIENT WAS FASTINGPERFORMED BY: [facility]70 MadisonSANpulse TechnologiesFrye Regional Medical Center [id number] Bacteria None seen (Normal) Mucus Threads Present (Normal) Epithelial Cells (non renal) None seen {/hpf} (Normal) Range: 0 - 10 RBC 0-3 {/hpf} (Normal) Range: 0 - 3 Comments: Effective September 04, 2013 the reference interval for RBC will be changing to: 0 - 2 /hpf. WBC 0-5 {/hpf} (Normal) Range: 0 - 5 53-Wyn-056791:47 LIPID PANEL (06762) Comments: PATIENT WAS FASTINGPERFORMED BY: NicOx [facility] [id number] LDL/HDL Ratio 2.7 {ratio_units} (Normal) Range: 0.0-3.6 LDL Cholesterol Calc 90 mg/dL (Normal) Range: 0-99 HDL Cholesterol 33 mg/dL (Abnormal) Comments: According to ATP-III Guidelines, HDL-C >59 mg/dL is considered anegative risk factor for CHD. VLDL Cholesterol Bharat 27 mg/dL (Normal) Range: 5-40 Triglycerides 133 mg/dL (Normal) Range: 0-149 Cholesterol, Total 150 mg/dL (Normal) Range: 100-199 28-Emi-813661:47 Vitamin D Hydroxy (38434) Comments: PATIENT WAS FASTINGPERFORMED BY: Informative Mzncau4728 [facility] [id number] Vitamin D, 25-Hydroxy 28.7 ng/mL (Abnormal) Range: 30.0-100.0 Comments: Vitamin D deficiency has been defined by the [place] of[facility]cine and an Endocrine Society practice guideline as alevel of serum 25-OH vitamin D less than 20 ng/mL (1,2).The Endocrine Society went on to further define vitamin Dinsufficiency as a level between 21 and 29 ng/mL (2).1. IOM ([place] of Medicine). 2010. Dietary reference intakes for calcium and D. [place]: The National Academies Press.2. Marcelle MF, Justin PURCELL, Amira ELIAS, et al. Evaluation, treatment, and prevention of vitamin D deficiency: an Endocrine Society clinical practice guideline. JCEM. 2010; 96(7):1911-30.; ADDENDA: appt 21-Aug-201311:47 TSH (76826) Comments: PATIENT WAS FASTINGPERFORMED BY: [facility] Crbliu6268 [facility] [id number] TSH 1.700 {uIU/mL} (Normal) Range: 0.450-4.500 17-Tde-832662:47 URINALYSIS, W/ MICRO (02291) Comments: PATIENT WAS FASTINGPERFORMED BY: [facility] Blapxd1660 [facility] [id number] Microscopic Examination See below: (Normal) Microscopic Examination MICRON (Normal) Comments: Microscopic follows if indicated. Nitrite, Urine Negative (Normal) Urobilinogen,Semi-Qn 1.0 mg/dL (Normal) Range: 0.0-1.9 Bilirubin Negative (Normal) Occult Blood Negative (Normal) Ketones Negative (Normal) Glucose Negative (Normal) Protein Negative (Normal) WBC Esterase Negative (Normal) Appearance Clear (Normal) Urine-Color Yellow (Normal) pH 6.0 (Normal) Range: 5.0-7.5 Specific [place] 1.019 (Normal) Range: 1.005-1.030 28-Wxn-915404:47 MICROALBUMIN: CREATININE RATIO Comments: PATIENT WAS FASTINGPERFORMED BY: DindongLovelace Women's HospitalMbmfex[address] [facility] [facility] [address] [facility] HospitalApplied StemCellFrye Regional Medical Center [id number] (77992) AND (82180) Microalb/Creat Ratio 5.9 {mg/g_creat} (Normal) Range: 0.0-30.0 Microalbumin, Urine 10.0 ug/mL (Normal) Range: 0.0-17.0 Creatinine, Urine 169.3 mg/dL (Normal) Range: 22.0-328.0 19-Vrb-438975:47 METABOLIC PANEL, COMPREHENSIVE Comments: PATIENT WAS FASTINGPERFORMED BY: DindongLovelace Women's HospitalAjusyl8658 [address] [facility] [id number] (24225) ALT (SGPT) 13 [iU]/L (Normal) Range: 0-44 [...] Glucose, Serum 118 mg/dL (Abnormal) Range: 65-99 26-Zha-900279:47 CBC WITH MANUAL DIFF Comments: PATIENT WAS FASTINGPERFORMED BY: LabCoRutgers - University Behavioral HealthCareMelelc8513 [facility] [id number] Information: [id number] (23627) Immature Grans (Abs) 0.0 {x10E3/uL} (Normal) Range: [...] (Normal) Range: 3.4-10.8 :38 HgA1C , Office (91890) HgA1C , Office 6.2 % (Normal) Range: 4.6 - 7.1 38-Kkd-017873:38 Blood Glucose , Office (59846) Blood Glucose , Office 119 (Normal) :28 HgA1C , Office (64401) HgA1C , Office 6.7 % (Normal) Range: 4.6 - 7.1 92-Xyw-673674:28 Blood Glucose , Office (57173) Blood Glucose , Office 131 (Normal) 31-Mzq-043799:08 MICROALBUMIN: CREATININE RATIO Comments: PATIENT WAS FASTINGPERFORMED BY: [facility]70 TapFunderFrye Regional Medical Center [id number] (89466) AND (39978) Microalb/Creat Ratio 14.3 {mg/g_creat} (Normal) Range: 0.0-30.0 Microalbumin, Urine 24.5 ug/mL (Abnormal) Range: 0.0-17.0 Creatinine, Urine 171.3 mg/dL (Normal) Range: 22.0-328.0 43-Ccj-624928:46 Microscopic Examination Comments: PATIENT NOT FASTINGPERFORMED BY: [facility]70 [facility] [id number] Bacteria Few (Normal) Mucus Threads Present (Normal) Epithelial Cells (non renal) 0-10 {/hpf} (Normal) Range: 0 - 10 RBC 0-3 {/hpf} (Normal) Range: 0 - 3 WBC 0-5 {/hpf} (Normal) Range: 0 - 5 :46 TSH (81127) Comments: PATIENT NOT FASTINGPERFORMED BY: [facility]70 [facility] [id number] TSH 2.720 {uIU/mL} (Normal) Range: 0.450-4.500 :46 URINALYSIS, W/ MICRO (94069) Comments: PATIENT NOT FASTINGPERFORMED BY: [facility]oboTr[facility] Health [facility] Hospital6370 [facility] [id number] Microscopic Examination See below: (Normal) Microscopic Examination MICRON (Normal) Comments: Microscopic follows if indicated. Nitrite, Urine Negative (Normal) Urobilinogen,Semi-Qn 1.0 mg/dL (Normal) Range: 0.0-1.9 Bilirubin Negative (Normal) Occult Blood Negative (Normal) Ketones Negative (Normal) Glucose Negative (Normal) Protein Negative (Normal) WBC Esterase Negative (Normal) Appearance Clear (Normal) Urine-Color Yellow (Normal) pH 6.0 (Normal) Range: 5.0-7.5 Specific [place] 1.015 (Normal) Range: 1.005-1.030 :46 MICROALBUMIN: CREATININE RATIO Comments: PATIENT NOT FASTINGPERFORMED BY: [facility]oboTr[facility] Health [facility] Hospital6370 [facility] [id number] (65704) AND (47901) Microalb/Creat Ratio 10.0 {mg/g_creat} (Normal) Range: 0.0-30.0 Microalbumin, Urine 12.6 ug/mL (Normal) Range: 0.0-17.0 Creatinine, Urine 125.8 mg/dL (Normal) Range: 22.0-328.0 :46 METABOLIC PANEL, COMPREHENSIVE Comments: PATIENT NOT FASTINGPERFORMED BY: [facility]oboTr[facility] Hospital6370 [facility] [id number] (86180) ALT (SGPT) 18 [iU]/L (Normal) Range: 0-44 [...] Glucose, Serum 116 mg/dL (Abnormal) Range: 65-99 33-Bem-964390:46 LIPID PANEL (91069) Comments: PATIENT NOT FASTINGPERFORMED BY: NicOx [facility] [id number] LDL/HDL Ratio 2.1 {ratio_units} (Normal) Range: 0.0-3.6 LDL Cholesterol Calc 94 mg/dL (Normal) Range: 0-99 VLDL Cholesterol Bharat 31 mg/dL (Normal) Range: 5-40 HDL Cholesterol 44 mg/dL (Normal) Comments: According to ATP-III Guidelines, HDL-C >59 mg/dL is considered anegative risk factor for CHD. Triglycerides 155 mg/dL (Abnormal) Range: 0-149 Cholesterol, Total 169 mg/dL (Normal) Range: 100-199 58-Fdf-324907:46 CBC WITH MANUAL DIFF Comments: PATIENT NOT FASTINGPERFORMED BY: DindongRutgers - University Behavioral HealthCareMxubcf1375 [facility] [id number] Information: [id number] (84033) Immature Grans (Abs) 0.0 {x10E3/uL} (Normal) Range: [...] (Normal) Range: 4.0-10.5 :38 HgA1C , Office (87927) HgA1C , Office 6.9 % (Normal) Range: 4.6 - 7.1 :38 Blood Glucose , Office (93656) Blood Glucose , Office 124 (Normal) 63-Owd-774950:08 HgA1C , Office (60591) HgA1C , Office 6.5 % (Normal) Range: 4.6 - 7.1 :10 Blood Glucose , Office (49379) Blood Glucose , Office 129 (Normal) 28-Jdw-202269:08 LIPID PANEL (16381) Comments: PATIENT WAS FASTINGPERFORMED BY: Lab93 Nelson StreetDublin [place] [id number] LDL/HDL Ratio 2.2 {ratio_units} (Normal) Range: 0.0-3.6 LDL Cholesterol Calc 97 mg/dL (Normal) Range: 0-99 VLDL Cholesterol Bharat 28 mg/dL (Normal) Range: 5-40 HDL Cholesterol 45 mg/dL (Normal) Comments: According to ATP-III Guidelines, HDL-C >59 mg/dL is considered anegative risk factor for CHD. Triglycerides 140 mg/dL (Normal) Range: 0-149 Cholesterol, Total 170 mg/dL (Normal) Range: 100-199 13-Wif-431283:08 HEPATIC FUNCTION PANEL Comments: PATIENT WAS FASTINGPERFORMED BY: TERRIE [facility]6370 [facility] [id number] Information: [id number] (19520) ALT (SGPT) 25 [iU]/L (Normal) Range: 0-55 [...] (Normal) Range: 6.0-8.5 :55 HgA1C , Office (04614) HgA1C , Office 6.9 % (Normal) Range: 4.6 - 7.1 :55 Blood Glucose , Office (26641) Blood Glucose , Office 126 (Normal) 03-Pjg-242145:07 Hemoglobin Glyclated (HGB Comments: PATIENT NOT FASTINGPERFORMED BY: [facility]6370 [facility] [id number] Information: [id number] A1C) (20987) Hemoglobin A1c 6.8 % (Abnormal) Range: 4.8-5.6 Comments: . Increased risk for diabetes: 5.7 - 6.4 Diabetes: >6.4 Glycemic control for adults with diabetes: <7.0 :58 Microscopic Examination Comments: PATIENT WAS FASTINGPERFORMED BY: [facility] Erlqmj0956 [facility] [id number] Bacteria Few (Normal) Mucus Threads Present (Normal) Epithelial Cells (non renal) None seen {/hpf} (Normal) Range: 0 - 10 RBC 0-3 {/hpf} (Normal) Range: 0 - 3 WBC 0-5 {/hpf} (Normal) Range: 0 - 5 :58 PSA Total+% Free Comments: PATIENT WAS FASTINGPERFORMED BY: [facility] Mdnrpt4046 [facility] [id number] Information: [id number] % Free PSA 16.3 % (Normal) Comments: [...] Comments: Temo ECLIA methodology. .According to the Indian U[employer] Association, Serum PSA shoulddecrease and remain [...] WAR (Normal) Comments: PATIENT WAS FASTINGPERFORMED BY: Informative Njdyrc1316 [facility]EC[facility] [id number] 3:58 Comments: Written Authorization Received.Authorization received from DR. STYLES [id number] by Machelle Trejo 28-Dww-475282:07 ASSAY, PSA, FREE (15530) Comments: PATIENT NOT FASTINGPERFORMED BY: Informative Idnury9615 [facility] [id number] Information: [id number],2ND ORDER NO DRAW F EE % Free [...] Comments: Temo ECLIA methodology. .According to the [employer] U[employer], Serum PSA shoulddecrease and remain at undetectable levels after radicalprostatectomy. The AUA defines biochemical recurrence as an initialPSA value 0.2 ng/mL or greater followed by a subsequent confirmatoryPSA value 0.2 ng/mL or greater.Values obtained with d ifferent assay methods or kits cannot be usedinterchangeably. Results cannot be interpreted as absolute evidenceof the presence or absence of malignant disease. 3-Qlq-751598:17 Bilirubin, Total/Direct, Serum Comments: PATIENT NOT FASTINGPERFORMED BY: [facility]6370 [facility] [id number] Bilirubin, Indirect 1.53 mg/dL (Abnormal) Range: 0.10-0.80 Bilirubin, Direct 0.37 mg/dL (Normal) Range: 0.00-0.40 Bilirubin, Total 1.9 mg/dL (Abnormal) Range: 0.0-1.2 :17 Prostate-Specific Ag, Serum Comments: PATIENT NOT FASTINGPERFORMED BY: [facility]6370 [facility] [id number] Prostate Specific Ag, 11.5 ng/mL (Abnormal) Range: 0.0-4.0 Serum Comments: Temo TCAS OnlineIA methodology. .According to the [employer] U[employer] Association, Serum PSA shoulddecrease and remain [...] Total+% Free Comments: PATIENT NOT FASTINGPERFORMED BY: [facility]6370 [facility] [id number] % Free PSA 19.7 % (Normal) Comments: [...] Comments: Temo ECLIA methodology. .According to the [employer] Association, Serum PSA shoulddecrease and remain [...] SPRCS (Normal) Comments: PATIENT NOT FASTINGPERFORMED BY: 51.[employer] LabNorthcore Technologiesrp Fnkdar8567 [address] RoadDublin [place] [id number] :17 Comments: This report has been generated by your request for additional testing.The additional request may have required some testing to be repeated.Because of analytic variability, the results may not correspond exactly to the previous report. Interpret these results appropriately. Written Authorization WAR (Normal) Comments: PATIENT NOT FASTINGPERFORMED BY: 51[employer] [facility] Fhoord0109 Madison RoadDublin [place] [id number] :17 Comments: Written Authorization Received.Authorization received from VICKI STYLES DO [id number] by Candi Salazar :01 Microscopic Examination Comments: PATIENT WAS FASTINGPERFORMED BY: [facility] Brgspv2002 [address] RoadDublin [place] [id number] Bacteria None seen (Normal) Mucus Threads Present (Normal) Epithelial Cells (non renal) None seen {/hpf} (Normal) Range: 0 - 10 RBC None seen {/hpf} (Normal) Range: 0 - 3 WBC 0-5 {/hpf} (Normal) Range: 0 - 5 :01 Vitamin D Hydroxy (31805) Comments: PATIENT WAS FASTINGPERFORMED BY: [facility] Ufqrez1260 [address] RoadDublin [place] [id number] Vitamin D, 25-Hydroxy 17.2 ng/mL (Abnormal) Range: 30.0-100.0 Comments: Vitamin D deficiency has been defined by the [place] of[place]icine and an Endocrine Society practice guideline as alevel of serum 25-OH vitamin D less than 20 ng/mL (1,2).The Endocrine Society went on to further define vitamin Dinsufficiency as a level between 21 and 29 ng/mL (2).1. IOM ([place] Medicine). 2010. Dietary reference intakes for calcium and D. [place]: The National Academies Press.2. Marcelle MF, Justin PURCELL, Amira ELIAS, et al. Evaluation, treatment, and prevention of vitamin D deficiency: an Endocrine Society clinical practice guideline. JCEM. 2010; 96(7):1911-30. :01 PSA (PROSTATE SPECIFIC Comments: PATIENT WAS FASTINGPERFORMED BY: [facility]Inst[facility] [place] [id number] ANTIGEN) (V76.44) Prostate Specific Ag, 7.6 ng/mL (Abnormal) Range: 0.0-4.0 Serum Comments: Foomanchew.comIA methodology. .According to the [place] [employer] Association, Serum PSA shoulddecrease and remain at undetectable levels after radicalprostatectomy. The AUA defines biochemical recurrence as an initialPSA value 0.2 ng/mL or greater followed by a subsequent confirmatoryPSA value 0.2 ng/mL or greater.Values obtained with d ifferent assay methods or kits cannot be usedinterchangeably. Results cannot be interpreted as absolute evidenceof the presence or absence of malignant disease. :01 TSH (55840) Comments: PATIENT WAS FASTINGPERFORMED BY: [employer]6370 TapFunderin [place] [id number] TSH 2.530 {uIU/mL} (Normal) Range: 0.450-4.500 :01 URINALYSIS, W/ MICRO (32947) Comments: PATIENT WAS FASTINGPERFORMED BY: [employer]6370 TapFunderin [place] [id number] Microscopic Examination See below: (Normal) Microscopic Examination MICRON (Normal) Comments: Microscopic follows if indicated. Nitrite, Urine Negative (Normal) Urobilinogen,Semi-Qn 0.2 mg/dL (Normal) Range: 0.0-1.9 Bilirubin Negative (Normal) Occult Blood Negative (Normal) Ketones Negative (Normal) Glucose Negative (Normal) Protein Negative (Normal) WBC Esterase Negative (Normal) Appearance Clear (Normal) Urine-Color Yellow (Normal) pH 6.5 (Normal) Range: 5.0-7.5 Specific [place] 1.015 (Normal) Range: 1.005-1.030 : MICROALBUMIN: CREATININE RATIO Comments: PATIENT WAS FASTINGPERFORMED BY: InformativeRutgers - University Behavioral HealthCareSmtrve0108 [facility] [id number] (35797) AND (18510) Microalb/Creat Ratio 30.3 {mg/g_creat} (Abnormal) Range: 0.0-30.0 Microalbumin, Urine 33.5 ug/mL (Abnormal) Range: 0.0-17.0 Creatinine, Urine 110.7 mg/dL (Normal) Range: 22.0-328.0 : METABOLIC PANEL, COMPREHENSIVE Comments: PATIENT WAS FASTINGPERFORMED BY: InformativeLovelace Women's HospitalKxqeie6218 [facility] [id number] (60598) ALT (SGPT) 23 [iU]/L (Normal) Range: 0-55 [...] mg/dL (Abnormal) Range: 65-99 :01 LIPID PANEL (60813) Comments: PATIENT WAS FASTINGPERFORMED BY: DindongRutgers - University Behavioral HealthCareSoublk0277 [facility] [id number] LDL/HDL Ratio 2.5 {ratio_units} (Normal) Range: 0.0-3.6 [...] MANUAL DIFF Comments: PATIENT WAS FASTINGPERFORMED BY: DindongRutgers - University Behavioral HealthCareOpqdzu4869 [facility] [id number] Information: [id number] (12020) Immature Grans (Abs) 0.0 {x10E3/uL} (Normal) Range: [...] (Normal) Range: 4.0-10.5 :24 HgA1C , Office (82286) HgA1C , Office 6.7 % (Normal) Range: 4.6 - 7.1 :24 Blood Glucose , Office (09854) Blood Glucose , Office 131 (Normal) :50 HgA1C , Office (22223) HgA1C , Office 6.3 % (Normal) Range: 4.6 - 7.1 :50 Blood Glucose , Office (99653) Blood Glucose , Office 116 (Normal) :05 HgA1C , Office (21292) HgA1C , Office 6.7 % (Normal) Range: 4.6 - 7.1 :58 URINALYSIS, W/ MICRO (28880) Comments: PATIENT WAS FASTINGPERFORMED BY: LabCoRutgers - University Behavioral HealthCareCqqlre0598 [facility] [id number] Microscopic Examination See below: (Normal) Microscopic Examination MICRON (Normal) Comments: Microscopic follows if indicated. Nitrite, Urine Negative (Normal) Urobilinogen,Semi-Qn 0.2 mg/dL (Normal) Range: 0.0-1.9 Bilirubin Negative (Normal) Occult Blood Negative (Normal) Ketones Negative (Normal) Glucose Negative (Normal) Protein Negative (Normal) WBC Esterase Negative (Normal) Appearance Clear (Normal) Urine-Color Yellow (Normal) pH 6.5 (Normal) Range: 5.0-7.5 Specific [place] 1.015 (Normal) Range: 1.005-1.030 :58 METABOLIC PANEL, COMPREHENSIVE Comments: PATIENT WAS FASTINGPERFORMED BY: indeni [facility] [id number] ([id number]) ALT (SGPT) 23 [iU]/L (Normal) Range: 0-55 [...] Glucose, Serum 126 mg/dL (Abnormal) Range: 65-99 02-Zyj-682321:58 CBC WITH MANUAL DIFF Comments: PATIENT WAS FASTINGPERFORMED BY: Videonetics TechnologiesDublin [place] [id number] Information: [id number] ([id number]) Immature Grans (Abs) 0.0 {x10E3/uL} (Normal) Range: [...] {x10E3/uL} (Normal) Range: 4.0-10.5 :58 LIPID PANEL (92461) Comments: PATIENT WAS FASTINGPERFORMED BY: TERRIE LabCoRutgers [facility] University Behavioral HealthCareTtleqx3711 [facility] [id number] LDL/HDL Ratio 2.7 {ratio_units} (Normal) Range: 0.0-3.6 [...] CREATININE RATIO Comments: PATIENT WAS FASTINGPERFORMED BY: InformativeRutgers - University Behavioral HealthCareOvnzkn5553 [facility] [id number] (85852) AND (87392) Microalb/Creat Ratio 16.0 {mg/g_creat} (Normal) Range: 0.0-30.0 Microalbumin, Urine 22.3 ug/mL (Abnormal) Range: 0.0-17.0 Creatinine, Urine 139.1 mg/dL (Normal) Range: 22.0-328.0 :58 TSH (75025) Comments: PATIENT WAS FASTINGPERFORMED BY: [facility]6370 [facility] [id number] TSH 3.200 {uIU/mL} (Normal) Range: 0.450-4.500 :44 TSH (54324) Comments: PATIENT WAS FASTINGPERFORMED BY: [facility]6370 [facility] [id number] TSH 2.540 {uIU/mL} (Normal) Range: 0.450-4.500 :44 MICROALBUMIN: CREATININE RATIO Comments: PATIENT WAS FASTINGPERFORMED BY: [facility]6370 [facility] [id number] (95457) AND (17775) Microalb/Creat Ratio 22.8 {mg/g_creat} (Normal) Range: 0.0-30.0 Microalbumin, Urine 47.4 ug/mL (Abnormal) Range: 0.0-17.0 Creatinine, Urine 207.7 mg/dL (Normal) Range: 22.0-328.0 :44 CBC with manual diff Comments: PATIENT WAS FASTINGPERFORMED BY: TERRIE [facility] Zfcpbz8433 [facility] [id number] Information: ADD [id number] AND DRAW FEE [id number] (43229) Immature Grans (Abs) 0.0 {x10E3/uL} (Normal) Range: [...] 4.10-5.60 WBC 6.9 {x10E3/uL} (Normal) Range: 4.0-10.5 86-Fqt-28230:44 Metabolic Panel, Comprehensive Comments: PATIENT WAS FASTINGPERFORMED BY: LabCoRutgers - [facility] Behavioral HealthCareFwpbof5419 [facility] [id number] (06057) ALT (SGPT) 22 [iU]/L (Normal) Range: 0-55 [...] Glucose, Serum 146 mg/dL (Abnormal) Range: 65-99 97-Bot-30860:44 Lipid Panel (02915) Comments: PATIENT WAS FASTINGPERFORMED BY: LabCoRutgers - [facility] Behavioral HealthCareDsetcm9069 [facility] [id number]; appt 11/26/10 LDL Cholesterol Calc 109 mg/dL (Abnormal) Range: 0-99 LDL/HDL Ratio 2.4 {ratio_units} (Normal) Range: 0.0-3.6 HDL Cholesterol 46 mg/dL (Normal) Comments: According to ATP-III Guidelines, HDL-C >59 mg/dL is considered anegative risk factor for CHD. VLDL Cholesterol Bharat 37 mg/dL (Normal) Range: 5-40 Triglycerides 183 mg/dL (Abnormal) Range: 0-149 Cholesterol, Total 192 mg/dL (Normal) Range: 100-199 02-Loa-196255:56 Vitamin D Hydroxy Comments: PATIENT NOT FASTINGPERFORMED BY: [facility]70 [facility] [id number] Information: [id number] (44055) Vitamin D, 25-Hydroxy 19.4 ng/mL (Abnormal) Range: 32.0-100.0 Comments: Recent studies consider the lower limit of 32.0 ng/mL to be athreshold for optimal health.Asuh JIMENEZ. J Nutr. 2004;135(2):317-22. :03 HEPATIC FUNCTION PANEL Comments: PATIENT WAS FASTINGPERFORMED BY: [facility]70 [facility] [id number] Information: [id number] (53792) Alkaline Phosphatase, S 72 [iU]/L (Normal) Range: 25-160 ALT (SGPT) 24 [iU]/L (Normal) Range: 0-55 AST (SGOT) 21 [iU]/L (Normal) Range: 0-40 Bilirubin, Direct 0.38 mg/dL (Normal) Range: 0.00-0.40 Albumin, Serum 4.0 g/dL (Normal) Range: 3.6-4.8 Bilirubin, Total 1.6 mg/dL (Abnormal) Range: 0.0-1.2 Protein, Total, Serum 6.9 g/dL (Normal) Range: 6.0-8.5 :03 LIPID PANEL (25732) Comments: PATIENT WAS FASTINGPERFORMED BY: [facility]70 [facility] [id number] LDL/HDL Ratio 1.7 {ratio_units} (Normal) Range: 0.0-3.6 [...] MANUAL DIFF Comments: PATIENT NOT FASTINGPERFORMED BY: LabCoRutgers - [facility] Behavioral HealthCareRhjgug3615 [facility] [id number] Information: [id number] (36203) Immature Grans (Abs) 0.0 {x10E3/uL} (Normal) Range: [...] 9.0 {x10E3/uL} (Normal) Range: 4.0-10.5 :55 Magnesium (89432) Comments: PATIENT NOT FASTINGPERFORMED BY: [facility]6370 [facility] [id number] Magnesium, Serum 2.1 mg/dL (Normal) Range: 1.6-2.6 :55 Metabolic Panel, Basic (43170) Comments: PATIENT NOT FASTINGPERFORMED BY: [facility]6370 [facility] [id number] Calcium, Serum 9.3 mg/dL (Normal) Range: 8.6-10.2 [...] Microscopic Examination Comments: PATIENT WAS FASTINGPERFORMED BY: [facility]6370 [facility] [id number] Bacteria None seen (Normal) Cast Type Hyaline casts (Normal) Casts Present {/lpf} (Abnormal) Epithelial Cells (non renal) 0-10 {/hpf} (Normal) Range: 0 - 10 Mucus Threads Present (Normal) RBC 0-3 {/hpf} (Normal) Range: 0 - 3 WBC 0-5 {/hpf} (Normal) Range: 0 - 5 :42 TSH (58231) Comments: PATIENT WAS FASTINGPERFORMED BY: [facility]6370 [facility] [id number] TSH 3.120 {uIU/mL} (Normal) Range: 0.450-4.500 :42 URINALYSIS, W/ MICRO (11356) Comments: PATIENT WAS FASTINGPERFORMED BY: [facility]6370 [facility] [id number] Microscopic Examination See below: (Normal) Bilirubin Negative (Normal) Glucose Negative (Normal) Ketones Negative (Normal) Nitrite, Urine Negative (Normal) Occult Blood Negative (Normal) Urobilinogen,Semi-Qn 0.2 mg/dL (Normal) Range: 0.0-1.9 Appearance Clear (Normal) pH 6.0 (Normal) Range: 5.0-7.5 Protein Negative (Normal) Urine-Color Yellow (Normal) WBC Esterase Trace (Abnormal) Specific [place] 1.020 (Normal) Range: 1.005-1.030 :42 MICROALBUMIN: CREATININE RATIO Comments: PATIENT WAS FASTINGPERFORMED BY: [facility]6370 [facility] [id number] (62101) AND (05192) Microalb/Creat Ratio 14.6 {mg/g_creat} (Normal) Range: 0.0-30.0 Microalbumin, Urine 26.0 ug/mL (Abnormal) Range: 0.0-17.0 Creatinine, Urine 178.3 mg/dL (Normal) Range: 22.0-328.0 :42 METABOLIC PANEL, COMPREHENSIVE Comments: PATIENT WAS FASTINGPERFORMED BY: [facility]6370 [facility] [id number] (83549) Alkaline Phosphatase, S 68 [iU]/L (Normal) Range: [...] Glucose, Serum 129 mg/dL (Abnormal) Range: 65-99 18-Hub-12519:42 LIPID PANEL (28270) Comments: PATIENT WAS FASTINGPERFORMED BY: LabCoRutgers - [facility] Behavioral HealthCareCpbwfv5909 [facility] [id number] LDL/HDL Ratio 2.5 {ratio_units} (Normal) Range: 0.0-3.6 [...] MANUAL DIFF Comments: PATIENT WAS FASTINGPERFORMED BY: LabCoRut[facility] - [facility] Behavioral HealthCareDfwavj0921 [facility] [id number] Information: ADD [id number] AND DRAW FEE [id number] (16022) Immature Grans (Abs) 0.0 {x10E3/uL} (Normal) Range: [...] (MT) Radiology See Note Comments: Exam Number: [id number] LINICAL:69-year-old man with pain in the left [...] CHOL 194 mg/dL (Normal) Comments: <200 mg/dL Gbluqvrwc599-380 mg/dL Borderline>240 mg/dL High Risk :32 PSA, [...] CHOL 157 mg/dL (Normal) Comments: <200 mg/dL Iqxozzqbe914-049 mg/dL Borderline>240 mg/dL High Risk :54 MICROALB:CRE UR MALB:CREAT 10.3 {mg/g_CRE} (Normal) MICROALBUMIN,UR 19.7 mg/L (Normal) UR CREAT 189.9 mg/dL (Normal) :54 TSH 2.03 {uIU/mL} (Normal) Range: 0.358-3.74 07-Kzx-040911:57 WRIST,MIN 3 VIEWS Radiology Report See Note (Normal) Comments: Exam Number: [id number] LEFT HAND Three views of the left hand were obtained. There is good alignment. No acute abnormality is seen. LEFT WRIST Three views were obtained. There is good ali gnment. No significantabnormality is seen. Reported By: SHAHAB CARLOS 36-Ozt-808328:56 CHEST, PA AND LATERAL Radiology Report See Note (Normal) Comments: Exam Number: [id number] CHEST, PA AND LATERAL PA and lateral [...] Report See Note (Normal) Comments: Exam Number: [id number] LEFT HAND Three views of the left [...] was performed using the TPSA method for the[facility] chemistry system.Values obtained with different assay methods cannot be usedinterchangably.When changing PSA assays in the course of monito ring apatient, additional sequential testing should be carriedout to confirm baseline values. :32 TSH 1.81 {uIU/mL} (Normal) Range: 0.34-4.82 :46 Vitamin D Hydroxy (68506) Comments: PATIENT NOT FASTINGClinical Information: ADD DRAW FEE [id number] ADD [id number] PERFORMED BY: [address] [id number] Vitamin D, 25-Hydroxy 56.3 ng/mL (Normal) Range: 32.0-100.0 Comments: Recent studies consider the lower limit of 32.0 ng/mL to be athreshold for optimal health.[place] TONY. J Nutr. 2004;135(2):317-22. 61-Ytf-184253:46 VITAMIN D, 1, 25-DIHYDROXY Comments: PATIENT NOT FASTINGPERFORMED BY: [facility] Qddgpagbkk2331 [facility] [id number] (58593) Vitamin D, 1,25 Dihydroxy 31.0 pg/mL (Normal) Range: 15.9-55.6 52-Onw-113487:28 CBCD,SMEAR DIFF Comments: GETS LIPID,LIVER,CBCMD,MICROAB.JOANNE VÁZQUEZ GETS [...] 47-70 WBC 7.3 K/mm3 (Normal) Range: 4.4-11.0 91-Odg-847060:28 COMP METABOLIC Comments: GETS LIPID,LIVER,CBCMD,MICROAB.JOANNE VÁZQUEZ GETS [...] T PROT 7.2 g/dL (Normal) Range: 6.4-8.2 63-Mbn-894897:28 D BILI 0.17 mg/dL (Normal) Comments: GETS LIPID,LIVER,CBCMD,MICROAB.JOANNE VÁZQUEZ GETS CMP,PHOS,MG,VITD,CBC, Range: 0.00-0.30 67-Bpr-552245:28 LIPID Comments: GETS LIPID,LIVER,CBCMD,MICROAB.JOANNE VÁZQUEZ GETS CMP,PHOS,MG,VITD,CBC, [...] mg/dL VLDL 41 mg/dL (Abnormal) Range: 5-40 87-Sru-285040:28 MG 1.7 mg/dL (Normal) Comments: GETS LIPID,LIVER,CBCMD,MICROAB.JOANNE VÁZQUEZ GETS CMP,PHOS,MG,VITD,CBC, Range: 1.5-2.2 45-Sqm-607308:28 MICROALBUMIN,UR 6.9 mg/L (Normal) Comments: GETS LIPID,LIVER,CBCMD,MICROAB.JOANNE VÁZQUEZ GETS CMP,PHOS,MG,VITD,CBC, 71-Amn-270716:28 PHOS 3.2 mg/dL (Normal) Comments: GETS LIPID,LIVER,CBCMD,MICROAB.JOANNE VÁZQUEZ GETS CMP,PHOS,MG,VITD,CBC, Range: 2.5-4.9 22-Mhq-402935:28 VIT D,25 93876 29.9 ng/mL (Abnormal) Comments: GETS LIPID,LIVER,CBCMD,MICROAB.JOANNE VÁZQUEZ GETS CMP,PHOS,MG,VITD,CBC, Range: 32.0-100.0 Comments: Recent studies consider the lower limit of 32.0 ng/mL to binta threshold for optimal health.Ashu JIMENEZ. J Nutr. 2004;135(2):317-22.Performed At: [facility]6[address] [place], [place] [id number] 30-Nvq-423158:57 VITAMIN D, 1, 25-DIHYDROXY Comments: PATIENT NOT FASTINGClinical Information: ADD DRAW FEE [id number] ADD J [id number] PERFORMED BY: [facility] [address] [id number] ([id number]) Vitamin D, 1,25 Dihydroxy 38.4 pg/mL (Normal) Range: 15.9-55.6 27-Qht-938953:30 LIPID CHOL 176 mg/dL (Normal) Comments: <200 [...] mg/dL VLDL 41 mg/dL (Abnormal) Range: 5-40 62-Pyf-774543:30 LIVER ALB 3.7 g/dL (Normal) Range: 3.4-5.0 ALK P 57 U/L (Normal) Range: 50-136 ALT 41 U/L (Normal) Range: 30-65 AST 23 U/L (Normal) Range: 15-37 D BILI 0.16 mg/dL (Normal) Range: 0.00-0.30 T BILI 1.63 mg/dL (Abnormal) Range: 0.00-1.00 T PROT 6.9 g/dL (Normal) Range: 6.4-8.2 :46 CHEST, PA AND LATERAL Radiology Report See Note (Normal) Comments: Exam Number: [id number] PA AND LATERAL CHEST CLINICAL STATEMENTCough for [...] 6.4-8.2 :34 MICROALBUMIN,UR 14.3 mg/L (Normal) :34 PTH,[id number] Comments: PLASMA ALDOSTERONE PTH,Intact 63 pg/mL (Normal) Range: 12-65 Comments: Performed At: [facility] [employer] [id number] At: [address] [id number] RENIN,PL 2006 0.38 {ng/mL/hr} Comments: PLASMA [...] {uIU/mL} (Normal) Range: 0.34-4.82 :34 VIT D,25 03960 20.2 ng/mL (Abnormal) Comments: PLASMA ALDOSTERONE Range: 32.0-100.0 Comments: Recent studies consider the lower limit of 32.0 ng/mL to binta threshold for optimal health.Ashu JIMENEZ. J Nutr. 2004;135(2):317-22. 93-Tza-82399:00 PROST BX P-PROSB (Normal) Comments: OPERATION Needle [...] RICCI:yanique 11/23/06 TC:3 REPORT SIGNED: TRINI DIAMOND 11/24/0623-Sep-200697-Zdx-190433:35 LIPID CHOL 135 mg/dL (Normal) Comments: <200 [...] mg/dL VLDL 36 mg/dL (Normal) Range: 5-40 27-Tos-949714:35 LIVER ALB 3.5 g/dL (Normal) Range: 3.4-5.0 [...] was performed using the TPSA method for the[employer] chemistry system.Values obtained with different assay methods [...] 137 mmol/L (Normal) Range: 136-145 :14 PSA [id number] COMMENT Comment (Normal) Comments: The percent free PSA is performed on a reflex basis onlywhen the total PSA is between 4.0 and 10.0 ng/mL.Performed At: [facility]6[address] [place], [place] [id number] At: [address] [id number] PSA, FREE 0.77 ng/mL (Normal) PSA, FREE [...] 20.01-25.00% 10% 20% >25.00% 5% 9%Please note: Prasahnt et al did not make specific recommendations regarding the use of percent free PSA for any other population of men. PSA, TOTAL 4.4 ng/mL (Abnormal) Range: 0.0-4.0 Comments: Alex (formerly Gabrielle) [facility] methodology Plan of Care Name Dates Details [...] kidney disease Elevated parathyroid hormone : Reviewed Director Of Counseling Letter Indication: Elevated parathyroid hormone Elevated parathyroid [...] disease Coronary artery disease, occlusive : Reviewed Director Of Counseling Letter Indication: Coronary artery disease, occlusive Coronary [...] occlusive Coronary artery disease, occlusive : Reviewed Director Of Counseling Letter Indication: Coronary artery disease, occlusive Malignant [...] in both knees, unspecified chronicity : Reviewed Director Of Counseling Letter Indication: Pain in both knees, unspecified [...] hyperlipidemia Coronary artery disease, occlusive : Reviewed Director Of Counseling Letter Indication: Coronary artery disease, occlusive Malignant [...] insulin Coronary artery disease, occlusive : Reviewed Director Of Counseling Letter Indication: Coronary artery disease, occlusive Malignant [...] disease Coronary artery disease, occlusive : Reviewed Director Of Counseling Letter Indication: Coronary artery disease, occlusive Controlled [...] insulin Atrial fibrillation, unspecified type : Reviewed Director Of Counseling Letter Indication: Atrial fibrillation, unspecified type Nonsmoker [...] chronic diastolic congestive heart failure : Reviewed Director Of Counseling Letter Indication: Acute on chronic diastolic congestive heart failure Fluid overload : Reviewed Lab Indication: Fluid overload Fluid overload : Reviewed Diagnostic Tests Indication: Fluid overload Atrial fibrillation, unspecified type : Reviewed Director Of Counseling Letter Indication: Atrial fibrillation, unspecified type Hypertensive [...] on chronic systolic heart failure : Reviewed Director Of Counseling Letter Indication: Acute on chronic systolic heart failure Bilateral edema of lower extremity : Reviewed Lab Indication: Bilateral edema of lower extremity Acute on chronic systolic heart failure : Reviewed Director Of Counseling Letter Indication: Acute on chronic systolic heart [...] of breath on exertion Coronary atherosclerosis of [place]lin coronary vessel : Reviewed Director Of Counseling Letter Indication: 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 : Reviewed Diagnostic Tests Indication: Coronary atherosclerosis of [place] coronary vessel Acute systolic congestive heart failure : Follow up in 3 weeks- fu on chf and edema and std process Indication: Acute systolic congestive heart failure Bilateral edema of lower extremity : Follow up in wednesday - quick yessenia Indication: Bilateral edema of lower extremity Coronary atherosclerosis of [place] coronary vessel : Eprescribed prescriptions (G8553) Indication: Coronary atherosclerosis of [place] coronary vessel Acute systolic congestive heart failure : Reviewed Diagnostic Tests Indication: Acute systolic congestive heart failure Acute systolic congestive heart failure : Continue Current Prescription(s) Indication: Acute systolic congestive heart failure Acute systolic congestive heart failure : Reviewed Director Of Counseling Letter Indication: Acute systolic congestive heart failure Shortness of breath on exertion : Follow up wednesday for yessenia on lower extrem edema- and sob & lab Indication: Shortness of breath on exertion Atherosclerosis of [place] coronary artery without angina pectoris, unspecified whether tetlin or transplanted heart : Reviewed Director Of Counseling Letter Indication: Atherosclerosis of [place] coronary artery without angina pectoris, unspecified whether [place] or transplanted heart Mixed hyperlipidemia : Cholesterol [...] Cholesterol mgmt Indication: Hyperlipidemia Coronary atherosclerosis of [place] coronary vessel : Reviewed Director Of Counseling Letter Indication: Coronary atherosclerosis of [place]lin coronary vessel Diabetes mellitus type 2, uncontrolled, [...] annual wellness exam Elevated PSA : Reviewed Director Of Counseling Letter: milagro neal Indication: Elevated PSA 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 : Continue Current Prescription(s) 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 Coronary atherosclerosis of tetlin coronary vessel : Reviewed Lab Indication: Coronary atherosclerosis of [place] coronary vessel Hyperlipidemia : Cholesterol mgmt Indication: [...] and congestive heart failure Coronary atherosclerosis of [place]lin coronary vessel : Reviewed Director Of Counseling Letter Indication: Coronary atherosclerosis of [place] coronary vessel Diabetes mellitus without complication (Renamed from Diabetes mellitus with no complication) : Diabetes Mellitus: Type 2 *: diabetes type 2 Indication: Diabetes mellitus without complication (Renamed from Diabetes mellitus with no complication) CVA (cerebral infarction) : Reviewed Director Of Counseling Letter: neuro wants to do a brain [...] brain MRI Abnormal brain MRI : Reviewed Director Of Counseling Letter Indication: Abnormal brain MRI Malignant hypertension [...] Vitamin D deficiency, unspecified Coronary atherosclerosis of tetlin coronary vessel : Reviewed Director Of Counseling Letter Indication: Coronary atherosclerosis of tetlin coronary vessel Hyperlipidemia : Cholesterol mgmt Indication: [...] mellitus with no complication) Coronary atherosclerosis of tetlin coronary vessel : Reviewed Director Of Counseling Letter Indication: Coronary atherosclerosis of [place] coronary vessel Diabetes mellitus type 2, uncontrolled, [...] mellitus with no complication) Coronary atherosclerosis of [place]lin coronary vessel : Reviewed Director Of Counseling Letter Indication: Coronary atherosclerosis of [place] coronary vessel Malignant hypertension with renal disease [...] 2, uncontrolled, without complications Coronary atherosclerosis of [place] coronary vessel : Reviewed Director Of Counseling Letter Indication: Coronary atherosclerosis of [place] coronary vessel Hyperlipidemia : Cholesterol mgmt Indication: [...] with renal disease Elevated PSA : Reviewed Director Of Counseling Letter Indication: Elevated PSA Vitamin D deficiency, [...] mgmt Indication: Mixed hyperlipidemia Coronary atherosclerosis of tetlin coronary vessel : Reviewed Director Of Counseling Letter Indication: Coronary atherosclerosis of tetlin coronary vessel Hypertensive heart disease : Diet, [...] mgmt Indication: Mixed hyperlipidemia Coronary atherosclerosis of [place]lin coronary vessel : Reviewed Director Of Counseling Letter Indication: Coronary atherosclerosis of tetlin coronary vessel Hypertensive heart disease : HTN/CAD [...] Wt loss Indication: Obesity, morbid Atherosclerosis of tetlin coronary artery without angina pectoris, unspecified whether tetlin or transplanted heart : Reviewed Director Of Counseling Letter Indication: Atherosclerosis of tetlin coronary artery without angina pectoris, unspecified whether tetlin or transplanted heart Hypertensive heart disease : [...] FOLLOW UP IN [address] [facility] Indication: Knee pain Obesity, morbid : Diet, [...] Nonprescription Treatment Indication: Hyperlipidemia Coronary atherosclerosis of tetlin coronary vessel : Reviewed Director Of Counseling Letter Indication: Coronary atherosclerosis of tetlin coronary vessel Hypertensive heart disease : Diet, [...] of breath at rest Coronary atherosclerosis of tetlin coronary vessel : Reviewed Director Of Counseling Letter Indication: Coronary atherosclerosis of tetlin coronary vessel Hypertensive heart disease : Diet, [...] Side Effects Indication: Mixed hyperlipidemia Atherosclerosis of [place]lin coronary artery without angina pectoris, unspecified whether tetlin or transplanted heart : Reviewed Director Of Counseling Letter Indication: Atherosclerosis of tetlin coronary artery without angina pectoris, unspecified whether tetlin or transplanted heart Hypertensive heart disease : [...] obstructive pulmonary disease Elevated PSA : Reviewed Director Of Counseling Letter prostate bx negative Indication: Elevated PSA Hypertensive heart disease : Reviewed Director Of Counseling Letter Indication: Hypertensive heart disease Hyperlipidemia : [...] - Strool Based DNA Test, CRC SCREEN (79763)Indication: Encounter for screening for malignant neoplasm of colon (Renamed from Special screening for malignant neoplasms, colon) On: 11-Cov-062458:47 Request TSH (07385)Indication: 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, without long-term current use of insulin On: 0-Zdy-126799:20 Request URINALYSIS, W/ MICRO (49285)Indication: 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 On: 1-Pal-950509:19 Request MICROALBUMIN: CREATININE RATIO (40131) AND (82530)Indication: 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 On: 7-Sol-770421:19 Request METABOLIC PANEL, COMPREHENSIVE (74715)Indication: 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 On: 7-Cjj-428315:19 Request LIPID PANEL (53123)Indication: 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 On: 0-Wku-463725:19 Request CBC with auto diff (94745)Indication: 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 On: :19 Request CALCIFEDIOL (94997)Indication: Vitamin D deficiency On: 5-Tdp-023730:19 Request CALCIFEDIOL (50867)Indication: Vitamin D deficiency On: 57-Xdy-631332:51 Request PARATHORMONE (96125)Indication: Elevated parathyroid hormone On: 90-Hsb-148880:51 Request URINALYSIS, W/ MICRO (04256)Indication: Diabetes mellitus without complication (Renamed from Diabetes mellitus with no complication) On: 7-Kac-304807:17 Request MICROALBUMIN: CREATININE RATIO (87043) AND (05782)Indication: Diabetes mellitus without complication (Renamed from Diabetes mellitus with no complication) On: :17 Request CALCIFIDIOL (59412) VIT D 25Indication: Vitamin D deficiency, unspecified On: :39 Request TSH (71339)Indication: 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, without long-term current use of insulin On: :39 Request URINALYSIS, W/ MICRO (59456)Indication: 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, without long-term current use of insulin On: :39 Request MICROALBUMIN: CREATININE RATIO (71655) AND (30117)Indication: 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, without long-term current use of insulin On: :39 Request METABOLIC PANEL, COMPREHENSIVE (10816)Indication: 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, without long-term current use of insulin On: :39 Request LIPID PANEL ([id number])Indication: 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, without long-term current use of insulin On: :39 Request CBC W/AUTO DIFF WBC ([id number])Indication: 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, without long-term current use of insulin On: :39 Request TSH ([id number])Indication: Diabetes mellitus type 2, uncontrolled, without complications On: :04 Request URINALYSIS, W/ MICRO ([id number])Indication: Diabetes mellitus type 2, uncontrolled, without complications On: :04 Request MICROALBUMIN: CREATININE RATIO ([id number]) AND ([id number])Indication: Diabetes mellitus type 2, uncontrolled, without complications On: 86-Imd-134723:04 Request METABOLIC PANEL, COMPREHENSIVE (07886)Indication: Diabetes mellitus type 2, uncontrolled, without complications On: :04 Request LIPID PANEL (40757)Indication: Mixed hyperlipidemia On: :04 Request CBC W/AUTO DIFF WBC ([id number])Indication: Diabetes mellitus type 2, uncontrolled, without complications On: :03 Request FECAL OCCULT- Tubes sent home ([id number])Indication: Encounter for screening for malignant neoplasm of colon (Renamed from Special screening for malignant neoplasms, colon) On: 5-Sxq-547786:21 Request Metabolic Panel, Basic ([id number])Indication: Renal insufficiency On: 4-Iyz-131519:41 Request Comments: wednesday Metabolic Panel, Basic ([id number])Indication: Renal insufficiency On: 05-Jul-2015 Request Metabolic Panel, Basic (68090)Indication: Renal insufficiency On: 29-Zlz-175373:41 Request BASIC METABOLIC w/Ionized Ca++ (59675)Indication: Short of breath on exertion On: 6-Hev-720667:31 Request METABOLIC PANEL, BASIC (56546)Indication: Abnormal blood chemistry On: 4-Dwx-429724:23 Request Metabolic Panel, Basic (12476)Indication: Acute systolic congestive heart failure On: 2-Yia-544568:54 Request Metabolic Panel, Basic ([id number])Indication: Atrial fibrillation, unspecified type On: 66-Vxe-949454:04 Request ASSAY, NATIURETIC PEPTIDE ([id number])Indication: Atrial fibrillation, unspecified type On: 08-Uda-629118:04 Request ASSAY, NATIURETIC PEPTIDE (29833)Indication: Bilateral edema of lower extremity On: 61-Hsk-278767:13 Request ASSAY, NATIURETIC PEPTIDE ([id number])Indication: Acute systolic congestive heart failure On: 17-Tgm-395379:39 Request Comments: re check in 1-2 weeks PSA (Medicare - G0103) ([id number])Indication: Elevated PSA On: 96-Rjr-366403:17 Request TSH ([id number])Indication: Diabetes mellitus type 2, uncontrolled, without complications On: 23-Qpt-877432:16 Request URINALYSIS, W/ MICRO ([id number])Indication: Diabetes mellitus type 2, uncontrolled, without complications On: :16 Request MICROALBUMIN: CREATININE RATIO ([id number]) AND ([id number])Indication: Diabetes mellitus type 2, uncontrolled, without complications On: :16 Request METABOLIC PANEL, COMPREHENSIVE ([id number])Indication: Diabetes mellitus type 2, uncontrolled, without complications On: :16 Request LIPID PANEL ([id number])Indication: Diabetes mellitus type 2, uncontrolled, without complications On: : Request CBC with auto diff ([id number])Indication: Diabetes mellitus type 2, uncontrolled, without complications On: :16 Request CALCIFIDIOL ([id number]) VIT D 25Indication: Vitamin D deficiency, unspecified On: :16 Request Vitamin D Hydroxy (07015)Indication: Vitamin D deficiency, unspecified On: 2-Ijs-747431:05 Request URINALYSIS, W/ MICRO ([id number])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 On: :04 Request MICROALBUMIN: CREATININE RATIO ([id number]) AND ([id number])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 On: 3-Cpd-497256:04 Request METABOLIC PANEL, COMPREHENSIVE ([id number])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 On: :04 Request LIPID PANEL ([id number])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 On: :04 Request CBC WITH MANUAL DIFF ([id number])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 On: 1-Ezz-343577:04 Request FECAL OCCULT- Tubes sent home ([id number])Indication: Encounter for routine history and physical exam for male On: :09 Request CALCIFIDIOL ([id number]) VIT D 25Indication: Vitamin D deficiency, unspecified On: 0-Pzj-629800:11 Request PSA TOTAL +%FREE [id number] ([id number])Indication: Elevated PSA On: :14 Request BILIRUBIN, TOTAL & DIRECT ([id number])Indication: Other specified abnormal findings of blood chemistry On: :14 Request Glucose, PP/2 Hour (68275)Indication: Other specified abnormal findings of blood chemistry On: 78-Qze-773775:03 Request CALCIFIDIOL ([id number]) VIT D 25Indication: Vitamin D deficiency, unspecified On: 16-Xmz-382345:31 Request TSH ([id number])Indication: Hypertensive heart disease On: :28 Request URINALYSIS, W/ MICRO ([id number])Indication: Hypertensive heart disease On: :28 Request MICROALBUMIN: CREATININE RATIO ([id number]) AND ([id number])Indication: Hypertensive heart disease On: :28 Request METABOLIC PANEL, COMPREHENSIVE ([id number])Indication: Hypertensive heart disease On: : Request CBC WITH MANUAL DIFF ([id number])Indication: Hypertensive heart disease On: : Request PSA (PROSTATE SPECIFIC ANTIGEN) (V76.44)Indication: Elevated PSA On: 90-Jox-292133:25 Request LIPID PANEL (02753)Indication: Hyperlipidemia On: 46-Evl-878437:23 Request Comments: do for next appt- 4mo Metabolic Panel, Basic ([id number])Indication: Pain of hand, unspecified laterality On: 30-Pii-965874:42 Request URIC ACID BLOOD ([id number])Indication: Pain of hand, unspecified laterality On: 54-Skj-639658:42 Request C-REACTIVE PROTEIN ([id number])Indication: Pain of hand, unspecified laterality On: 96-Xys-774128:52 Request SED RATE ERYTHROCYTE ([id number])Indication: Pain of hand, unspecified laterality On: 23-Zhw-343708:52 Request CBC WITH MANUAL DIFF ([id number])Indication: Pain of hand, unspecified laterality On: 29-Byc-205487:51 Request Magnesium (29207)Indication: Hypokalemia On: 51-Hbv-204690:25 Request Potassium Serum (37920)Indication: Hypokalemia On: 50-Ldb-068470:25 Request Comments: do in 2 weeks Vitamin D Hydroxy (77692)Indication: Vitamin D deficiency, unspecified On: 44-Jor-879319:23 Request Glucose, PP/2 Hour (02294)Indication: Other specified abnormal findings of blood chemistry On: 84-Bdj-322879:18 Request LIPID PANEL ([id number])Indication: Hyperlipidemia On: 87-Qvb-162820:45 Request Comments: DO IN 3 MONTHS HEPATIC FUNCTION PANEL (38987)Indication: Hyperlipidemia On: 69-Ocd-455268:45 Request HEPATIC FUNCTION PANEL (98472)Indication: Hyperlipidemia On: 20-Hkb-953361:54 Request LIPID PANEL ([id number])Indication: Hyperlipidemia On: 79-Ugw-669902:54 Request Comments: do in 3 months PARATHORMONE ([id number])Indication: Vitamin D deficiency, unspecified On: 91-Fyf-098258:45 Request CALCIUM SERUM ([id number])Indication: Vitamin D deficiency, unspecified On: 83-Duc-709929:45 Request VITAMIN D, 1, 25-DIHYDROXY (48906)Indication: Vitamin D deficiency, unspecified On: 54-Mdh-804592:45 Request VITAMIN D, 25-DIHYDROXY ([id number])Indication: Vitamin D deficiency, unspecified On: 01-Don-089390:45 Request LIPID PANEL ([id number])Indication: Hyperlipidemia On: 88-Wlj-548744:44 Request Planned Procedures INTENSIVE BEHAVIORAL THERAPY TO On: 15-Nov-2017 Intent REDUCE CARDIOVASCULAR DISEASE RISK, INDIVIDUAL, SLKH-DF-UULG, ANNUAL, 15 MINUTES ([id number])By: Vicki Styles DO, DO, Kathleen LZGY-QX-NIUX BEHAVIORAL COUNSELING On: 15-Nov-2017 Intent FOR OBESITY, 15 MINUTES (G0447)By: Vicki Styles DO, DO, Kathleen Spirometry (60555)By: Neil NG, On: 06-Sep-2017 Intent Vicki Nichols DO Comments: severe obsstyuction and good effort on curve-- addeed dulera - ELECTROCARDIOGRAM, COMPLETE (ECG) On: 06-Sep-2017 Intent ([id number])By: Vicki Styles DO Comments: a fib- rate controlled - no acute findings Vicki Styles DO X-RAY OF HAND, THREE VIEWS On: 17-Jun-2017 Intent ([id number])By: Vicki Styles DO Comments: Right hand Vicki Styles DO PARATHYROID SCAN ([id number])By: Neil On: 17-Jun-2017 Vicki Coates DO, DO, Kathleen Overnight Pulse OX ([id number])By: On: 04-Jun-2017 Intent Vicki Styles DO, DO, Kathleen LYQH-RE-ADYU BEHAVIORAL COUNSELING On: 09-Nov-2016 Intent FOR OBESITY, 15 MINUTES (G0447)By: Vicki Styles DO, DO, Kathleen INTENSIVE BEHAVIORAL THERAPY TO On: 09-Nov-2016 Intent REDUCE CARDIOVASCULAR DISEASE RISK, INDIVIDUAL, VQFQ-AU-ZLWT, ANNUAL, 15 MINUTES (G0446)By: Vicki Styles DO, DO, Kathleen ELECTROCARDIOGRAM, COMPLETE (ECG) On: 10-Sep-2016 Intent ([id number])By: Vicki Styles DO Comments: chronic chg - afib/flutter - rate controlled Vicki Styles DO SIX MINUTE WALK TEST ([id number])By: On: 26-Mar-2016 Intent Vicki Styles DO, DO, Kathleen Overnight Pulse OX ([id number])By: On: 09-Mar-2016 Intent Vicki Styles DO, DO, Kathleen Overnight Pulse OX ([id number])By: On: 04-Mar-2016 Intent Vicki Stlyes DO, DO, Kathleen Spirometry ([id number])By: Neil NG, On: 04-Mar-2016 Intent Vicki Nichols DO Comments: pt admits not using inhalers - restrictive pattern - refilled inhalers - symbicort nad spiriva and will yessenia in one month INTENSIVE BEHAVIORAL THERAPY TO On: 07-Nov-2015 Intent REDUCE CARDIOVASCULAR DISEASE RISK, INDIVIDUAL, OZHX-UD-EHEF, ANNUAL, 15 MINUTES (G0446)By: Vicki Styles DO, DO, Kathleen UYNC-HT-HPZH BEHAVIORAL COUNSELING On: 07-Nov-2015 Intent FOR OBESITY, 15 MINUTES (G0447)By: Vicki Styles DO, DO, Kathleen Radiology - Chest- PA and LatBy: On: 18-Apr-2015 Intent Vicki Styles DO, DO, Kathleen Echo CompleteBy: Neil NG, On: 18-Apr-2015 Intent Vicki Styles DOJonathanVicki Prevnar 13 ([id number])By: Neil NG, On: 16-Jan-2014 Intent Vicki Styles DO, Vicki Prevnar 13 (68178)By: Neil NG, On: 16-Jan-2014 Intent Vicki Neil DO, Vicki Comments: [id number] 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, 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, 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 Overnight Pulse OX ([id number])By: On: 03-Jan-2014 Intent Jonathan Styles DOeen Neil DO, Vicki Six Minute Walk Assessment On: 28-Dec-2013 Intent ([id number])By: Neil DO, Vicki Neil DO, Vicki OWJE-ZZ-OEAF BEHAVIORAL COUNSELING On: 23-Nov-2013 Intent FOR OBESITY, 15 MINUTES (G0447)By: Neil DO, Vicki Neil DO, Vicki INTENSIVE BEHAVIORAL THERAPY TO On: 19-Oct-2013 Intent REDUCE CARDIOVASCULAR DISEASE RISK, INDIVIDUAL, UGXO-XF-QBGH, ANNUAL, 15 MINUTES (G0446)By: Neil DO, Vicki Neil DO, Vicki ODRN-CC-IWSA BEHAVIORAL COUNSELING On: 19-Oct-2013 Intent FOR OBESITY, 15 MINUTES (G0447)By: Samira Styles DOhleen Neil DO, Vicki Radiology - Chest- PA and LatBy: On: 24-Aug-2013 Intent Neil DO, Vicki Neil DO, Vicki Aerosol Treatment ([id number])By: On: 24-Aug-2013 Intent Neil DO, Vicki Neil DO, Comments: no wheeze and much more a/e Vicki Eprescribed prescriptions On: 15-May-2013 Intent (G8553)By: Leora Fonseca LPN Eprescribed prescriptions On: 20-Mar-2013 Intent (G8553)By: Neil DO, Vicki Neil DO, Vicki INTENSIVE BEHAVIORAL THERAPY TO On: 17-Oct-2012 Intent REDUCE CARDIOVASCULAR DISEASE RISK, INDIVIDUAL, EJET-DM-KMGV, ANNUAL, 15 MINUTES (G0446)By: Neil DO, Vicki Neil DO, Vicki THON-LH-DTZG BEHAVIORAL COUNSELING On: 17-Oct-2012 Intent FOR OBESITY, 15 MINUTES (G0447)By: Vicki Styles DO Neil DO, Vicki EKG ([id number])By: Neil NG, On: 17-Oct-2012 Intent Vicki Neil DO, Vicki Eprescribed prescriptions On: 17-Oct-2012 Intent (G8553)By: Leora Fonseca LPN Six Minute Walk Assessment On: 28-Jul-2012 Intent (12014)By: Gay Brandon LPN Bio Z ([id number])By: Neil , On: 18-Jul-2012 Intent Vicki Nichols DO Comments: unable to connect and perform Six Minute Walk Assessment On: 18-Jul-2012 Intent ([id number])By: Vicki Styles DO Comments: set up Neil DO Vicki Eprescribed prescriptions On: 22-Apr-2012 Intent (G8553)By: Leora Fonseca LPN Spirometry ([id number])By: Neil NG, On: 21-Jan-2012 Intent Vicki Nichols DO Comments: poor effort Eprescribed prescriptions On: 21-Jan-2012 Intent (G8553)By: Leora Fonseca LPN PFT - CompleteBy: Neil NG, On: 21-Oct-2011 Intent Vicki Nichols DO EKG (11712)By: Neil NG, On: 21-Oct-2011 Intent Vicki Nichols DO Comments: nsr no acute chg Eprescribed prescriptions On: 05-Aug-2011 Intent (G8553)By: Leora Fonseca LPN Six Minute Walk Assessment On: 06-Feb-2011 Intent ([id number])By: Naomi Mendez Comments: see scanned documents Six Minute Walk Assessment On: 26-Nov-2010 Intent ([id number])By: Vicki Styles DO Comments: set up Neil DO, Vicki Bio Z ([id number])By: Neil NG, On: 26-Nov-2010 Intent Vicki Nichols DO Comments: norrmal parameters no chg in rx EKG (58535)By: Neil NG, On: 26-Nov-2010 Intent VickiVicki Jones DO Comments: nsr no acute chgn TDAP VACCINE >7 IM ([id number])By: On: 30-Jul-2010 Intent Vicki Styles DO, DO, Comments: Lot:[id number]:06/26/12Amt:prefilledRoute:IMSite: left deltGiven By: CARYL Edwards Vicki Eprescribed prescriptions On: 30-Jul-2010 Intent (G8553)By: Neil DO, Vicki Neil DO, Vicki Bio Z ([id number])By: Neil DO, On: 30-Jul-2010 Intent Vicki Styles DOVicki Comments: STABLE SEE SCANNED DOC -NO CHG IN MEDS EKG (89328)By: Neil DO, On: 26-Mar-2010 Intent Vicki Neil DO, Vicki Bio Z ([id number])By: Enil DO, On: 26-Mar-2010 Intent Vicki Styles DOVicki PHYSICAL THERAPY EVALUATION On: 07-Jan-2010 Intent ([id number])By: Elisabet Matos CNP Radiology - Knee - [...] DO, Vicki Neil DO, Vicki Bio Z (86129)By: Neil DO, On: 19-Mar-2009 Intent Vicki Neil DOVicki Comments: ok co and svr EKG (21057)By: Neil NG, On: 19-Mar-2009 Intent Vicki Neil DOVicki Comments: nsr no acute changes Spirometry ([id number])By: Neil NG, On: 19-Mar-2009 Intent Vicki Nichols DO Comments: mild obstructive pattern - Pulse Oximetry (69267)By: Mast RN, On: 19-Mar-2009 Intent Darling EKG (30400)By: Neil NG, On: 25-Jul-2008 Intent Vicki Neil DOVicki Comments: no acute stable Bio Z ([id number])By: Neil DO, On: 25-Jul-2008 Intent Vicki Nichols DO Comments: stable no changes Six Minute Walk Assessment On: 16-May-2008 Intent ([id number])By: Crystal Reyes Six Minute Walk Assessment On: 23-Mar-2008 Intent ([id number])By: Vicki Styles DO, DO, Kathleen Bio Z ([id number])By: Neil NG, On: 23-Mar-2008 Intent Vicki Nichols DO Comments: normal svr and co Radiology - Knee - LeftBy: Neil On: 28-Dec-2007 Intent DO, Vicki Neil DO, Vicki Radiology - Knee - RightBy: Neil On: 28-Dec-2007 Intent DO, Vicki Neil DO Vicki Bio Z ([id number])By: Neil NG, On: 28-Dec-2007 Intent Vicki Nichols DO Comments: normal svr and co Bio Z ([id number])By: eNil NG, On: 01-Sep-2007 Intent Vicki Nichols DO Comments: HYPERDYNAMIC HEART-- HI CO AND LO SVR Holter Moniter ([id number])By: Neil On: 04-May-2007 Intent Vicki NG DO, Kathleen Comments: set up Bio Z ([id number])By: Neil NG, On: 04-May-2007 Intent Vicki Nichols DO Comments: normal svr and co EKG ([id number])By: Neil NG, On: 04-May-2007 Intent Vicki Nichols DO Comments: nsr some pvc-- no acute ischemic changes Radiology - Chest- PA and LatBy: On: 24-Mar-2007 Intent Vicki Styles DO, DO, Kathleen Aerosol Treatment ([id number])By: On: 24-Mar-2007 Intent Vicki Styles DO, DO, Comments: better air exchange less wheeze and less irritability with cough Vicki Solu- Medrol Injection, 125mg On: 24-Mar-2007 Intent ([id number])By: Vicki Styles DO Comments: given in right hip, 125mg, lot#[id number], exp.--WF Vicki Styles DO Spirometry (25834)By: Neil NG, On: 24-Mar-2007 Intent Vicki Nichols DO Comments: severe airway obstruction Pulse Oximetry (52053)By: Neil On: 24-Mar-2007 Intent Vicki NG DO, Kathleen Comments: 94% Doppler Ultrasound OtherBy: Neil On: 02-Mar-2007 Intent Vicki NG DO, Kathleen Comments: R Inhaler Demo (52068)By: Neil NG, On: 27-Jan-2007 Intent Vicki Nichols DO Bio Z ([id number])By: Neil NG, On: 27-Jan-2007 Intent Vicki Nichols DO Comments: normal svr and co Spirometry ([id number])By: Neil NG, On: 27-Jan-2007 Intent Vicki Nichols DO Comments: mild obstruction Bio Z (77273)By: Neil NG, On: 11-Oct-2006 Intent Vicki Nichols DO Comments: normal svr and co EKG (36770)By: Neil NG, On: 26-Apr-2006 Intent Vicki Nichols DO Comments: nsr intraventricular conduction delay no acute ischemic changes Holter Moniter (18146)By: On: 26-Mar-2006 Intent REILLY Moya Instructions Name [...] systolic congestive heart failure Coronary atherosclerosis of tetlin coronary vessel : How to access health information online Indication: 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 : How to access health information online - Detail Indication: Coronary atherosclerosis of tetlin coronary vessel Bilateral edema of lower extremity [...] 2, uncontrolled, without complications Coronary atherosclerosis of tetlin coronary vessel : cardiovascular counseling Indication: Coronary atherosclerosis of tetlin coronary vessel BMI 37.0-37.9, adult : obesity [...] Indication: Abnormal brain MRI Coronary atherosclerosis of tetlin coronary vessel : cardiovascular counseling Indication: Coronary atherosclerosis of tetlin coronary vessel BMI 36.0-36.9,adult : obesity counseling [...] The patient does have durable power of environmental attorney and living will. The patient has noticed nothing from the geriatic depression scale. Other providers contributing to the patient's care are netbackup admin, entertainment manager, urologist and other: (endo).Encounter Diagnosis: Nonsmoker, BMI [...] I called squad and I was at [facility] and then I went to [facility] for End: 06-Jan-2017 11:01 heraphy) and [...] The patient does have durable power of environmental attorney and living will. The patient has noticed nothing from the geriatic depression scale. Other providers contributing to the patient's care are netbackup admin, urologist and other:.Encounter Diagnosis: Nonsmoker, BMI 35.0-35.9,adult, [...] extremity edema, increase SOB. Recent trip to [place] Encounter Diagnosis: Edema extremities, Fluid overload, Atrial [...] The patient does have durable power of environmental attorney and living will. The patient has noticed lack of energy. Other providers contributing to the patient's care are netbackup admin and urologist. Encounter Diagnosis: Encounter for Medicare [...] Hypertension with renal disease, Coronary atherosclerosis of tetlin coronary vessel, Chronic kidney disease, stage 3 [...] vivid dreams. Encounter Diagnosis: Coronary atherosclerosis of tetlin coronary vessel, Apnea, BPH (benign prostatic hyperplasia) (600.90), Other urinary incontinence, Bilateral edema of lower extremity, Short of breath on exertion, Non morbid obesity, unspecified obesity type, Therapeutic drug monitoring [facility] Office Visit On: 10-May-2015 10:16 Encounter Diagnosis: Atrial fibrillation, unspecified type, Coronary atherosclerosis of tetlin coronary vessel (414.01), Acute systolic congestive heart [...] type, Abnormal blood chemistry, Coronary atherosclerosis of tetlin coronary vessel (414.01) End: 06-May-2015 10:58 Comprehensive [...] deficiency, unspecified, Mixed hyperlipidemia (272.2), Atherosclerosis of tetlin coronary artery without angina pectoris, unspecified whether tetlin or transplanted heart, History of CVA in [...] weight :. Encounter Diagnosis: Coronary atherosclerosis of tetlin coronary vessel (414.01), BMI 37.0-37.9, ADULT (V85.37), [...] patient d oes have durable power of environmental attorney and living will. The patient has noticed feeling situation is hopeless (recently). Other providers contributing to the patient's care are netbackup admin (Dr. 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.93), Diabetes mellitus without complication (Renamed from Diabetes mellitus with no complication), Hyperlipidemia (272.4), Edema (782.3) [facility] Office Visit On: 20-Mar-2013 10:40 Encounter Diagnosis: Hypertension with Heart and Renal Disease (404.93), CVA (cerebral infarction) (434.91), Coronary atherosclerosis of tetlin coronary vessel (414.01) End: 20-Mar-2013 11:53 [facility] Office Visit On: 15-Feb-2013 14:36 Encounter Reason: Transition into care - The patient most recently received care from a hospital (in hosp from 02/12/13 to 02/14/13 for a minor stroke.).Encounter Diagnosis: Abnormal brain MRI (793.0), End: 15-Feb-2013 15:50 Hypertension with Heart and Renal Disease (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 The patient has completed the [facility] preventative measures: PSA testing (september 2012) and colonoscopy (around 10 years). The patient does have durable power of environmental attorney and living will. The patient has noticed nothing from the geriatic depression scale. Other providers contributing to the patient's care are netbackup admin (Dr. Greenfield) and urologist. 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), Hyperlipidemia (272.4), Coronary atherosclerosis of tetlin coronary vessel (414.01), Unspecified vitamin D deficiency [...] disease (402.90), Hyperlipidemia (272.4), Coronary atherosclerosis of tetlin coronary vessel (414.01), Edema (782.3) [facility] [...] mellitus without complication (250.00), Coronary atherosclerosis of tetlin coronary vessel (414.01), Hypertension with Renal Disease [...] II,uncontrolled, no comp (250.02), Coronary atherosclerosis of tetlin coronary vessel (414.01), Atrial fibrillation (427.31), Benign [...] fibrillation (427.31), COPD (496.), Coronary atherosclerosis of tetlin coronary vessel (414.01) [facility] Phone [...] fibrillation (427.31), COPD (496.), Coronary atherosclerosis of tetlin coronary vessel (414.01), Mixed hyperlipidemia (272.2), Hypertensive [...] , Atrial fibrillation (427.31), Coronary atherosclerosis of tetlin coronary vessel (414.01) [facility] Office [...] Coronary atherosclerosis of unspecified type of vessel, tetlin or graft (414.00), COPD (496.), Hyperglycemia (790.29), [...] Coronary atherosclerosis of unspecified type of vessel, tetlin or graft (414.00), Atrial fibrillation (427.31), Obesity, [...] Coronary atherosclerosis of unspecified type of vessel, tetlin or graft (414.00), Hypertensive heart disease (402.90) [...] Hypertensive heart disease (402.90), Coronary atherosclerosis of tetlin coronary vessel (414.01), Atrial fibrillation (427.31), Hyperlipidemia [...] Coronary atherosclerosis of unspecified type of vessel, tetlin or graft (414.00), Atrial fibrillation (427.31), Hypocalcemia [...] Hypertensive heart disease (402.90), Coronary atherosclerosis of tetlin coronary vessel (414.01), Hyperlipidemia (272.4), COPD (496.), [...] Coronary atherosclerosis of unspecified type of vessel, tetlin or graft (414.00), Atrial fibrillation (427.31), Mixed [...] Coronary atherosclerosis of unspecified type of vessel, tetlin or graft (414.00), Atrial fibrillation (427.31), Mixed [...] Coronary atherosclerosis of unspecified type of vessel, tetlin or graft (414.00), Atrial fibrillation (427.31), Coronary atherosclerosis of tetlin coronary vessel (414.01), Unspecified vitamin D deficiency [...] Diagnosis: Atrial fibrillation (427.31), Coronary atherosclerosis of tetlin coronary vessel (414.01), Hypertensive heart disease (402.90), [...] (402.90), Atrial fibrillation (427.31), Coronary atherosclerosis of tetlin coronary vessel (414.01), Hyperlipidemia (272.4), Cough (786.2), [...] Hypertensive heart disease (402.90), Coronary atherosclerosis of tetlin coronary vessel (414.01), Atrial fibrillation (427.31), Hyperlipidemia [...]
--- OUTSIDE RECORDS SUMMARY | 2018-04-29 16:07 | XMS RPT_ITS ---
:1940 Author Organization OHIP Care Team Providers Name Role Phone Ramu Sanders Attending Unavailable NeilVicki Referring Unavailable Ramu Sanders Aniya Attending Unavailable Neil, Vicki Referring Unavailable Neil, Vicki Attending Unavailable Neil, Vicki Primary Care Unavailable Neil, Vicki Attending Unavailable Neil, Vicki Referring Unavailable Neil, Vicki Primary Care Unavailable Lesa Alvarado Attending Unavailable Vellanmicheline, Lesa Referring Unavailable Neil, Vicki Primary Care Unavailable Lesa Alvarado Attending Unavailable Vellanki, Lesa Referring Unavailable Neil, Vicki Primary Care Unavailable Neil, Vicki Primary Care Unavailable Vellanki, Lesa Attending Unavailable Vellanki, Lesa Referring Unavailable Vellanki, Lesa Attending Unavailable Vellanki, Lesa Referring Unavailable Neil, Vicki Primary Care Unavailable G[place], [place] Attending Unavailable Neil, Vicki Referring Unavailable Vellanki, Lesa Attending Unavailable Vellanki, Lesa Referring Unavailable Neil, Vicki Primary Care Unavailable Skye Dacosta Consult[employer] Unavailable PROBLEMS PROBLEMS DATE TYPE CONDITION / CODE ATTENDING STATUS SOURCE 01/13/2018 Unknown I10 - Essential Gin, [place] Active [place] (primary) Community hypertension / Hospital I10(ICD-10) Repository 01/13/2018 Unknown I25.5 - Ischemic Gin, [place] Active [place] cardiomyopathy / Community I25.5(ICD-10) Hospital Repository 01/13/2018 Unknown Z95.1 - Presence of Gin, Jimi Active [place] aortocoronary bypass Community graft / Z95.1(ICD-10) Hospital Repository 01/13/2018 Unknown I48.1 - Persistent [place]in, [place] Active [place] atrial fibrillation / Community I48.1(ICD-10) Hospital Repository 01/13/2018 Unknown E78.2 - Mixed Gin, [place] Active [place] hyperlipidemia / Community E78.2(ICD-10) Hospital Repository 10/19/2017 Unknown M06.4 - Inflammatory Vellanki, 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 / Community M06.4(ICD-10) Hospital Repository 10/19/2017 Unknown M1A.9XX1 - Chronic Vellanki, 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, unspecified, Community with tophus (tophi) / Hospital M1A.9XX1(ICD-10) Repository 10/19/2017 Unknown I25.10 - Vellanki, Lesa Active [place] Atherosclerotic heart Community disease of [facility] coronary artery Repository without angina pectoris / I25.10(ICD-10) 10/19/2017 Unknown I50.20 - Unspecified Vellanki, Lesa Active [place] systolic (congestive) Community heart failure / Hospital I50.20(ICD-10) Repository 10/19/2017 Unknown E78.5 - Vellanki, Lesa Active [place] Hyperlipidemia, Community unspecified / Hospital E78.5(ICD-10) Repository 10/19/2017 Unknown N40.1 - Benign Lesa Alvarado Active [place] prostatic hyperplasia Community with lower urinary Hospital tract symptoms / Repository N40.1(ICD-10) 10/19/2017 Unknown I69.30 - Unspecified Lesa Alvarado Active [place] sequelae of cerebral Community infarction / Hospital I69.30(ICD-10) Repository 10/19/2017 Unknown 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, Community unspecified / Hospital M15.9(ICD-10) Repository 10/19/2017 Unknown M21.40 - Flat foot Lesa Alvarado Active [place] [pes planus] Community (acquired), Hospital unspecified foot / Repository M21.40(ICD-10) 10/19/2017 Unknown N18.9 - Chronic Lesa Alvarado Active [place] kidney disease, Community unspecified / Hospital N18.9(ICD-10) Repository 07/21/2017 Unknown I48.91 - Unspecified Lesa Alvarado Active [place] atrial fibrillation / Community I48.91(ICD-10) Hospital Repository PROCEDURES PROCEDURES No Procedure Records FoundRESULTS RESULTS CBC W/DIFF, AUTOMATED Collected: 03/04/2018 Status: F Source: [place] [facility] TYPE CODE TESTS RESULT OUT OF RANGE REFERENCE UNITS LAB L100.1000 4.4-11.0 K/mm3 Normal WBC 6.3 LAB L100.1200 4.6-6.2 M/mm3 Low RBC 4.46 LAB L100.1300 13.0-16.5 g/dl Normal HGB 13.7 LAB L100.1400 40-54 % Normal HCT 43.0 LAB L100.1500 80-94 fL High MCV 96.4 LAB L100.1600 27.0-32.0 pg Normal MCH 30.7 LAB L100.1700 32-36 g/gl Low MCHC 31.9 LAB L100.1810 11.6-14.6 % Normal RDW CV 14.3 LAB L100.1820 35.1-43.9 fl High RDW SD 48.9 LAB L100.1900 150-450 K/mm3 Normal PLT 202 LAB L100.2000 6.2-12.0 fl Normal MPV 10.8 LAB L100.2100 47-70 % Normal NEUT% 69.7 LAB L100.2200 19-41 % Low LY% 15.8 LAB L100.2300 0-10 % Normal MONO% 9.7 LAB L100.2400 0-5 % Normal EO% 4.0 LAB L100.2500 0-1 % Normal BASO% 0.3 LAB L100.2550 0.0-0.9 % Normal IM GRAN % 0.500 Result Comment: IG% - Immature Granulocytes (promyelocytes, myelocytes and metamyelocytes) > 1% indicates that a LEFT SHIFT is Present. LAB L100.2620 2.0-7.7 X10 3/uL Normal Absolute Neut 4.4 LAB L100.2720 0.83-4.51 X10 3/ul Normal Absolute Lymph 0.99 Performed By: #### L100.0100 #### [facility] [address] [place], [address] COMPREHENSIVE METABOLIC Collected: 03/04/2018 Status: F Source: [facility] 4:16 PM [facility] Order Comment: DR. ALVARADO ORDERED CMP CBCD URIC DR. GALLEGO ORDERED CMP PTH VITD TYPE CODE TESTS RESULT OUT OF RANGE REFERENCE UNITS LAB L501.0100 74-106 mg/dL High GLU 147 Result Comment: Fasting Glucose result greater than or equal to 126 mg/dL suggests DIABETES MELLITUS per A.D.A. criteria. Please note revised GLUCOSE reference range effective 2017. LAB L501.1000 7-18 mg/dL High BUN 26 LAB L501.1100 0.70-1.30 mg/dL High CREAT,SERUM 1.53 Result Comment: The validity of the calculated GFR AND GFRAA in patients over 70 years has not been determined. Clinical correlation is essential. LAB L501.1110 >60 mL/min Low EST GFR 47 Result Comment: Non- GFR Calc LAB L501.1115 >60 mL/min Low EST GFR - AA 57 Result Comment: GFR Calc LAB L501.1300 10-20 RATIO Normal BUN/CRE 17.0 LAB L501.1500 6.4-8.2 g/dL T Normal PROT 7.3 LAB L501.1800 3.2-5.0 g/dL Normal ALB 3.6 LAB L501.1950 2.2-4.2 g/dL Normal GLOB 3.7 LAB L501.2000 0.9-2.4 RATIO Normal A/G 1.0 LAB L501.2200 8.5-10.1 mg/dL Low CA 8.2 LAB L501.4100 15-37 U/L Normal AST 25 LAB L501.4305 45-117 U/L Normal ALK P 113 LAB L501.4405 16-61 U/L Normal ALT 34 LAB L501.4600 0.20-1.00 mg/dL High T BILI 1.70 LAB L501.5300 136-145 mmol/L NA Normal 141 LAB L501.5600 3.5-5.1 mmol/L Low K 3.3 LAB L501.5900 98-107 mmol/L CL Normal 102 LAB L501.6100 21.0-32.0 mmol/L Normal CO2 30.0 LAB L501.6200 5-15 Normal GAP 9 Performed By: #### L500.4050, L501.1400 #### [facility] [address] [place], [address] URIC ACID Collected: 03/04/2018 Status: F Source: [place] 4:16 PM [facility] Order Comment: DR. ALVARADO ORDERED CMP CBCD URIC DR. GALLEGO ORDERED CMP PTH VITD TYPE CODE TESTS RESULT OUT OF RANGE REFERENCE UNITS LAB L501.1400 3.5-7.2 mg/dL High URIC 7.7 Result Comment: The drugs N-Acetylcysteine and Metamizole may falsely depress this assay. Performed By: #### L500.4050, L501.1400 #### [facility] [address] [place], [address] PTHIN Collected: 03/04/2018 Status: F Source: [place] 4:16 PM [facility] REPOSIT[facility] TYPE CODE TESTS RESULT OUT OF RANGE REFERENCE UNITS LAB L509.1000 18.4-80.1 pg/mL High PTHIN 156.2 Performed By: #### L509.1000 #### [facility] [address] [place], [address] VITAMIN D,25 HYDROXY Collected: 03/04/2018 Status: F Source: [place] 4:16 PM [facility] REPOS[facility] TYPE CODE TESTS RESULT OUT OF REFERENCE UNITS RANGE LAB L506.1000 29.95-100.01 ng/mL Low Vitamin D 22.6 25-OH Result Comment: Vitamin D 25(OH) Status Range Deficiency <20 ng/mL (50nmol/L) Insuffciency 20 - 30 ng/mL (50 - 75 nmol/L) Sufficiency 30 - 100 ng/mL (75 - 250 nmol/L) Toxicity >100 ng/mL (>250 nmol/L) Performed By: #### L506.1000 #### [facility] [address] [place], [address] CARDIOLOGY VISIT Observed: 01/13/2018 Status: F Source: [place] RE[facility] 10:21 AM [facility] REPOSIT[facility] [address] [place] [address] OFFICE VISIT Date of Service: 01/13/18 MR#: [id number] Acct: [id number] Name: RAMU GONZALES Rep #: [id number] : 1940 Provider: Jimi Greenfield MD Age/Sex: 77/M Location[place] [facility] Status: Signed [facility] Chief Complaint: Follow up visit Details: RAMU GONZALES, is a 77 M who presents to the office today for a cardiovascular outpatient follow-up. Patient has a history of coronary artery disease with bypass surgery 2003. He had a VILLEDA to LAD, SVG to circumflex, and SVG to posterior descending artery. He also has a history of atrial fibrillation s/p unsuccessful cardioversion in 2016, ischemic cardiomyopathy, pulmonary hypertension, hyperlipidemia, congestive heart failure, and sleep apnea. He says that overall this year he has [...] ft 6 in 01/13/18 Weight: 224 lb 10/11/18 Body Mass Index (BMI) 36.1 01/13/18 Blood Pressure 128/70 H 01/13/18 Blood Pressure Location Lt brachial Intake Visit Reasons: 6 M FU [employer] Required: No Accompanied by: none Is patient in pain?: No Allergies aspirin Allergy (Intermediate, Verified 01/13/18 09:57) Swelling around eyes acetaminophen [From Vicodin] Adverse Reaction (Severe, Verified 01/13/18 09:57) Rash hydrocodone [From Vicodin] Adverse Reaction (Severe, Verified 01/13/18 09:57) Rash pseudoephedrine [From Sudafed] Adverse Reaction (Severe, Verified 01/13/18 09:57) Myalgias AND flu like symptoms simvastatin [From Zocor] Adverse Reaction (Severe, Verified 01/13/18 09:57) Myalgias Sulfa (Sulfonamide Antibiotics) Adverse Reaction (Mild, Verified 01/13/18 09:57) Severe Pain in joints Medications Finasteride [Proscar] 5 mg PO DAILY 04/18/15 [History Confirmed 06/14/17] Furosemide [Lasix] 40 mg PO BID 07/09/15 [History Confirmed 01/13/18] Acetaminophen [Tylenol Tablet] 650 mg PO Q6H [...] PO BID #14 tab 04/08/17 [Rx Confirmed 01/13/18] allopurinol 300 mg tablet 300 mg PO DAILY 01/13/18 [History Confirmed 01/13/18] colchicine 0.6 mg tablet 0.6 mg PO .mwf tab 01/13/18 [History Confirmed 01/13/18] doxazosin 4 mg tablet 4 mg PO DAILY 01/13/18 [History Confirmed 01/13/18] PFSH Medical History Atherosclerosis of [place] coronary artery of [place] heart without angina pectoris (Chronic) Mitral valve insufficiency (Chronic) Localized edema (Resolved) Bilateral pleural effusion (Resolved) History of stroke (Chronic) Acute on chronic systolic (congestive) heart failure (Chronic) Hyperlipidemia (Chronic) alf use of drug (Chronic) Ischemic cardiomyopathy (Chronic) FH: sudden cardiac (SCD) (Chronic) 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 of premature coronary heart disease (Chronic) BPH with urinary obstruction (Chronic) Noncompliance (Chronic) Diabetes mellitus type 2 in obese (Chronic) Venous insufficiency (Chronic) HTN (hypertension) (Chronic) Atrial fibrillation (Chronic) Cardiomyopathy, ischemic (Chronic) AUDRA (obstructive sleep apnea) (Chronic) Mitral regurgitation (Chronic) Morbid obesity (Chronic) Chronic renal failure, stage 3 (moderate) (Chronic) Left knee pain (Resolved) Old myocardial infarction (Resolved) Surgical History S/P CABG (coronary artery bypass graft) (Chronic) Family History Father Sudden cardiac Sister Heart disease Sudden cardiac Father Sudden cardiac Social History Smoking Status: Never smoker alcohol intake: current alcohol intake frequency: a few times a week Alcohol type: beer, wine, hard liquor substance use type: does not use caffeine: Yes Type: coffee what type of physical activity do you participate in: none seatbelt use: sometimes do you feel safe at home: Yes ROS Const Const: Negative for fatigue, weakness, night sweats, excessive sweating, frequent falls, headache(s) or daytime sleepiness Eyes Eyes: Negative for loss of peripheral vision, transient loss of vision, blind spots, double vision or blurry vision ENT ENT: Negative for headache(s), dizziness, balance problems, Nosebleed/epistaxis, tongue swelling or lip swelling Cardio Chest Pain: No Palpitations: No Edema: None Muscle aches with walking: None Resp Respiratory: Negative for SOB at rest, SOB orthopnea\SOB lying down, Cough, paroxysmal nocturnal dyspnea or SOB with activity GI GI: Negative nausea, vomiting, heartburn, black,tarry stools or bright, red blood in stools : Negative for hematuria Musc Musc: Negative for balance problems, muscle aches/ myalgia, muscle weakness or joint pain Skin Skin: Negative non-healing lesions, unusual bruising or rash Neuro Neuro: Negative for weakness, frequent falls, headache(s), double vision, dizziness, lightheadedness, orthostatic symptoms, blurry vision or lack of coordination Chau Hematologic/Lymphatic: Negative for easy bruising or easy bleeding Endo Endo: Negative for fatigue, excessive sweating, cold intolerance, heat intolerance, increased thirst/drinking or hair loss Psych Psych: Negative for anxiety or depression Allergy Allergy/Immunology: Negative for throat swelling, Negative for tongue swelling, Negative for hives, Negative for rash, Negative for lip swelling Cardiology Exam Const Appearance: cooperative, healthy appearing, well developed, well groomed and no acute distress Nutritional Appearance: well nourished and average body habitus [...] and uvula midline Eyes General: appearance normal, both eyes and all related structures Eyelids: eyelids normal Conjunctivae: conjunctivae normal Pupils: PERRL, normal by confrontation and accommodation normal EOM: EOM intact bilaterally Neck Neck: normal visual inspection, trachea midline and no JVD JVD: +5 Carotids: normal carotid upstroke and bounding pulses Chest Chest inspection: normal inspection of the chest, symmetric chest movement and normal respiratory effort Auscultation: Bilateral: Clear to Auscultation Cardio Palpation: normal PMI Rhythm: irregular rhythm Heart sounds: S1 normal and S2 normal GI GI: normal to inspection, soft, no hepatosplenomegaly and bowel sounds present Neuro General: alert, awake, oriented x3, no focal sensory deficit, gait normal and moves all extremities Skin Skin: no rashes or lesions noted Extremities Pulses: Normal: Right Femoral Pulse, Left Femoral Pulse, Right Dorsalis Pedis Pulse, Left Dorsalis Pedis Pulse, Right Posterior Tibial Pulse, Left Posterior Tibial Pulse, Right Radial Pulse, Left Radial Pulse Lower Extremity Edema: None: Bilateral Musculoskel Musculoskeletal: No joint tenderness Psych Psychological: normal affect Assessment AND Plan 1. Ischemic cardiomyopathy I25.5 Plan He does have a history of ischemic cardiomyopathy with his last ejection fraction estimated at 40%. He does not appear to be in as much heart failure he remains on the beta-evelin as well as the diuretic which he [...] continue him on the same medications without making any changes. 4. Persistent atrial fibrillation I48.1 Plan He does have chronic persistent atrial for ablation with a controlled ventricular response rate he remains on beta-evelin and calcium channel evelin which appears to be keeping him at an average heart rate and preventing him from going to heart failure. He remains anticoagulated on his factor X inhibitor. 5. Mixed hyperlipidemia E78.2 Plan He does have a history of hyperlipidemia [...] Persistent atrial fibrillation I48.1 Atrial fibrillation type: persistent Mixed hyperlipidemia E78.2 Hyperlipidemia type: mixed hyperlipidemia Coding Level of Care Code Off vis,est,level 3 Diagnoses Ischemic cardiomyopathy I25.5 Essential hypertension I10 Hypertension type: essential hypertension S/P CABG (coronary artery bypass graft) Z95.1 Persistent atrial fibrillation I48.1 Atrial fibrillation type: persistent Mixed hyperlipidemia E78.2 Hyperlipidemia type: mixed hyperlipidemia 01/13/18 1021 <Electronically signed by Jimi Greenfield MD> Date Jimi Greenfield MD Cosigner Signature: Date (if applicable) CC: Vicki Trejo DO CBC W/DIFF, AUTOMATED Collected: 12/02/2017 Status: F Source: [place] 4:06 PM [facility] REPOS[facility] TYPE CODE TESTS RESULT OUT OF RANGE REFERENCE UNITS LAB L100.1000 4.4-11.0 K/mm3 Normal WBC 7.1 LAB L100.1200 4.6-6.2 M/mm3 Low RBC 4.34 LAB L100.1300 13.0-16.5 g/dl Low HGB 12.9 LAB L100.1400 40-54 % Normal HCT 40.5 LAB L100.1500 80-94 fL Normal MCV 93.3 LAB L100.1600 27.0-32.0 pg Normal MCH 29.7 LAB L100.1700 32-36 g/gl Low MCHC 31.9 LAB L100.1810 11.6-14.6 % High RDW CV 14.7 LAB L100.1820 35.1-43.9 fl High RDW SD 50.5 LAB L100.1900 150-450 K/mm3 Normal PLT 179 LAB L100.2000 6.2-12.0 fl Normal MPV 10.7 LAB L100.2100 47-70 % Normal NEUT% 68.1 LAB L100.2200 19-41 % Normal LY% 19.2 LAB L100.2300 0-10 % Normal MONO% 9.1 LAB L100.2400 0-5 % Normal EO% 2.9 LAB L100.2500 0-1 % Normal BASO% 0.4 LAB L100.2550 0.0-0.9 % Normal IM GRAN % 0.300 Result Comment: IG% - Immature Granulocytes (promyelocytes, myelocytes and metamyelocytes) > 1% indicates that a LEFT SHIFT is Present. LAB L100.2620 2.0-7.7 X10 3/uL Normal Absolute Neut 4.9 LAB L100.2720 0.83-4.51 X10 3/ul Normal Absolute Lymph 1.37 Performed By: #### L100.0100 #### [facility] [address] [place], [address] COMPREHENSIVE METABOLIC Collected: 12/02/2017 Status: F Source: [place] 4:06 PM [facility] REPOSIT[facility] TYPE CODE TESTS RESULT OUT OF RANGE REFERENCE UNITS LAB L501.0100 74-106 mg/dL High GLU 108 Result Comment: Fasting Glucose result from 100 to 125 mg/dL suggests IMPAIRED HOMEOSTASIS per A.D.A. criteria. Please note revised GLUCOSE reference range effective 2017. LAB L501.1000 7-18 mg/dL High BUN 27 LAB L501.1100 0.70-1.30 mg/dL High CREAT,SERUM 1.63 Result Comment: The validity of the calculated GFR AND GFRAA in patients over 70 years has not been determined. Clinical correlation is essential. LAB L501.1110 >60 mL/min Low EST GFR 44 Result Comment: Non- GFR Calc LAB L501.1115 >60 mL/min Low EST GFR - AA 53 Result Comment: GFR Calc LAB L501.1300 10-20 RATIO Normal BUN/CRE 16.6 LAB L501.1500 6.4-8.2 g/dL T Normal PROT 7.4 LAB L501.1800 3.2-5.0 g/dL Normal ALB 3.6 LAB L501.1950 2.2-4.2 g/dL Normal GLOB 3.8 LAB L501.2000 0.9-2.4 RATIO Normal A/G 0.9 LAB L501.2200 8.5-10.1 mg/dL CA Normal 8.7 LAB L501.4100 15-37 U/L Normal AST 20 LAB L501.4305 45-117 U/L Normal ALK P 108 LAB L501.4405 16-61 U/L Normal ALT 21 LAB L501.4600 0.20-1.00 mg/dL High T BILI 1.20 LAB L501.5300 136-145 mmol/L NA Normal 142 LAB L501.5600 3.5-5.1 mmol/L K Normal 3.6 LAB L501.5900 98-107 mmol/L CL Normal 104 LAB L501.6100 21.0-32.0 mmol/L Normal CO2 26.0 LAB L501.6200 5-15 Normal GAP 12 Performed By: #### L500.4050, L501.1400 #### [facility] [address] [place], [address] URIC ACID Collected: 12/02/2017 Status: F Source: [place] 4:06 PM [facility] REPOSIT[facility] TYPE CODE TESTS RESULT OUT OF RANGE REFERENCE UNITS LAB L501.1400 3.5-7.2 mg/dL High URIC 9.2 Result Comment: The drugs N-Acetylcysteine and Metamizole may falsely depress this assay. Performed By: #### L500.4050, L501.1400 #### [facility] [address] [place], [address] COMPREHENSIVE METABOLIC Collected: 10/19/2017 Status: F Source: [place] [facility] 3:39 PM [facility] REPOSITORY TYPE CODE TESTS RESULT OUT OF RANGE REFERENCE UNITS LAB L501.0100 74-106 mg/dL High GLU 145 Result Comment: Fasting Glucose result greater than or equal to 126 mg/dL suggests DIABETES MELLITUS per A.D.A. criteria. Please note revised GLUCOSE reference range effective 2017. LAB L501.1000 7-18 mg/dL High BUN 26 LAB L501.1100 0.70-1.30 mg/dL High CREAT,SERUM 1.70 Result Comment: The validity of the calculated GFR AND GFRAA in patients over 70 years has not been determined. Clinical correlation is essential. LAB L501.1110 >60 mL/min Low EST GFR 42 Result Comment: Non- GFR Calc LAB L501.1115 >60 mL/min Low EST GFR - AA 51 Result Comment: GFR Calc LAB L501.1300 10-20 RATIO Normal BUN/CRE 15.3 LAB L501.1500 6.4-8.2 g/dL T Normal PROT 7.3 LAB L501.1800 3.2-5.0 g/dL Normal ALB 3.5 LAB L501.1950 2.2-4.2 g/dL Normal GLOB 3.8 LAB L501.2000 0.9-2.4 RATIO Normal A/G 0.9 LAB L501.2200 8.5-10.1 mg/dL CA Normal 8.5 LAB L501.4100 15-37 U/L Normal AST 21 LAB L501.4305 45-117 U/L Normal ALK P 97 LAB L501.4405 16-61 U/L Normal ALT 23 LAB L501.4600 0.20-1.00 mg/dL High T BILI 1.50 LAB L501.5300 136-145 mmol/L NA Normal 140 LAB L501.5600 3.5-5.1 mmol/L K Normal 3.7 LAB L501.5900 98-107 mmol/L CL Normal 102 LAB L501.6100 21.0-32.0 mmol/L Normal CO2 30.0 LAB L501.6200 5-15 Normal GAP 8 Performed By: #### L500.4050, L501.1400 #### [facility] [address] [place], [place], [address] URIC ACID Collected: 10/19/2017 Status: F Source: [place] 3:39 PM [facility] REPOSIT[facility] TYPE CODE TESTS RESULT OUT OF RANGE REFERENCE UNITS LAB L501.1400 3.5-7.2 mg/dL High URIC 9.1 Result Comment: The drugs N-Acetylcysteine and Metamizole may falsely depress this assay. Performed By: #### L500.4050, L501.1400 #### [facility] [address] [place], [place], [address] CBC W/DIFF, AUTOMATED Collected: 10/19/2017 Status: F Source: [place] 3:39 PM [facility] REPOSIT[facility] TYPE CODE TESTS RESULT OUT OF RANGE REFERENCE UNITS LAB L100.1000 4.4-11.0 K/mm3 Normal WBC 6.4 LAB L100.1200 4.6-6.2 M/mm3 Low RBC 4.37 LAB L100.1300 13.0-16.5 g/dl Normal HGB 13.1 LAB L100.1400 40-54 % Normal HCT 40.1 LAB L100.1500 80-94 fL Normal MCV 91.8 LAB L100.1600 27.0-32.0 pg Normal MCH 30.0 LAB L100.1700 32-36 g/gl Normal MCHC 32.7 LAB L100.1810 11.6-14.6 % Normal RDW CV 13.5 LAB L100.1820 35.1-43.9 fl High RDW SD 44.5 LAB L100.1900 150-450 K/mm3 Normal PLT 167 LAB L100.2000 6.2-12.0 fl Normal MPV 11.0 LAB L100.2100 47-70 % Normal NEUT% 63.0 LAB L100.2200 19-41 % Normal LY% 21.8 LAB L100.2300 0-10 % High MONO% 10.7 LAB L100.2400 0-5 % Normal EO% 3.7 LAB L100.2500 0-1 % Normal BASO% 0.6 LAB L100.2550 0.0-0.9 % Normal IM GRAN % 0.200 Result Comment: IG% - Immature Granulocytes (promyelocytes, myelocytes and metamyelocytes) > 1% indicates that a LEFT SHIFT is Present. LAB L100.2620 2.0-7.7 X10 3/uL Normal Absolute Neut 4.0 LAB L100.2720 0.83-4.51 X10 3/ul Normal Absolute Lymph 1.40 Performed By: #### L100.0100 #### [facility] [address] [place], [address] HAND MIN 3 VIEWS Observed: 08/20/2017 Status: F Source: [place] 3:27 PM [facility] REPOSITORY [facility] Imaging Services [address] [place] [address] Hand Min 3 Views MR#: [id number] Acct: [id number] Name: RAMU GONZALES Rep #: [id number] : 1940 M 76 From: Andre Crisostomo MD PCP: Vicki Trejo DO Status: REG CLI Study: Hand Min 3 Views Date of Exam: 08/20/17 Exam# [id number] Ordering Dr: Lesa Alvarado MD STUDY: X-RAY - LEFT HAND REASON FOR EXAM: Male, 76 years old. Pain and swelling, decreased range of motion TECHNIQUE: 3 view(s) of the hand. COMPARISON: None. FINDINGS: There is joint space narrowing of the radiocarpal articulation consistent with degenerative arthrosis. Normal distal radioulnar joint. There is diffuse demineralization of the carpal bones. There is mild intracarpal arthrosis. There is degenerative arthrosis of the carpometacarpal (CMC) articulation of the thumb. Normal second through fifth carpometacarpal joints. Normal metacarpi. There is degenerative arthrosis of the metacarpophalangeal (MCP) joints. There is moderate arthrosis of the interphalangeal joint of the thumb with subchondral erosions on both the proximal and distal phalanges. Moderate to severe PIP and DIP joint arthrosis in the second to the fifth fingers. All joint spaces show subchondral erosions on both sides of the joint space, most affected joint spaces include the DIP joint of the third digit, and PIP joint of the fifth digit. No demonstrated fracture, or suspicious soft tissue swelling. RAD/Hand Min 3 Views IMPRESSION: Polyarticular arthrosis as described, most affected joint spaces include the interphalangeal joint of the thumb, the DIP joint of the third digit, and PIP joint of the fifth finger. Electronically Signed: Lalo Crisostomo MD at 10:07 EDT , Service support , CC: Vicki Trejo DO; Lesa Alvarado MD Porcelain Enamel Repairer: Signed HAND MIN 3 VIEWS Observed: 08/20/2017 Status: F Source: [place] 3:27 PM [facility] REPOSITORY [facility] Imaging Services [address] [place] [address] Hand Min 3 Views MR#: [id number] Acct: [id number] Name: RAMU GONZALES Rep #: [id number] : 1940 M 76 From: Andre Crisostomo MD PCP: Vicki Trejo DO Status: REG CLI Study: Hand Min 3 Views Date of Exam: 08/20/17 Exam# [id number] Ordering Dr: Lesa Alvarado MD STUDY: X-RAY - RIGHT HAND REASON FOR EXAM: Male, 76 years old. Pain TECHNIQUE: 3 view(s) of the hand. COMPARISON: FINDINGS: The bones are demineralized. Normal distal radioulnar joint. Normal visualized carpal bones. Normal carpal articulations Normal carpometacarpal articulation of the thumb. Normal second through fifth carpometacarpal joints. Normal metacarpi. There is soft tissue swelling at the [...] of the proximal third phalanx. There may be a small erosion along the radial and distal aspect of the proximal third phalanx. Mild joint space narrowing is seen within the interphalangeal joints. There is soft tissue swelling of the third digit. There is little significant interval change since the previous study. The degenerative changes are slightly more severe in the left hand and wrist than the right. RAD/Hand Min 3 Views IMPRESSION: Osteopenia without acute fracture. Findings suggest erosive arthropathy within the third finger. Mild interphalangeal joint space narrowing. Electronically Signed: Lalo Crisostomo MD at 10:08 EDT , Service support , CC: Vicki Trejo DO; Lesa Alvarado MD Porcelain Enamel Repairer: Signed KNEE 4 OR MORE Observed: 08/20/2017 Status: F Source: [place] VIEWS 3:27 PM [facility] REPOSITORY [facility] Imaging Services [address] [place] [address] Knee 4 or More Views MR#: [id number] Acct: [id number] Name: RAMU GONZALES Rep #: [id number] : 1940 M 76 From: Andre Crisostomo MD PCP: Vicki Trejo DO Status: REG CLI Study: Knee 4 or More Views Date of Exam: 08/20/17 Exam# [id number] Ordering Dr: Lesa Alvarado MD STUDY: X-RAY - RIGHT KNEE REASON FOR EXAM: Male, 76 years old. Pain TECHNIQUE: 4 view(s) of the knee. COMPARISON: None. FINDINGS: There is demineralization of the visualized distal femur. There is demineralization of the tibia and fibula. Normal proximal tibiofibular articulation. There is severe degenerative arthrosis of the medial femorotibial compartment with severe joint space narrowing. There is mild degenerative arthrosis of the lateral femorotibial compartment. There is moderate degenerative arthrosis of the patellofemoral articulation. Postsurgical changes noted in the medial soft tissues, likely from vein harvest. RAD/Knee 4 or More Views IMPRESSION: Degenerative arthrosis. Electronically Signed: Lalo Crisostomo MD at 10:09 EDT , Service support , CC: Vicki Trejo DO; Lesa Alvarado MD Porcelain Enamel Repairer: Signed KNEE 4 OR MORE Observed: 08/20/2017 Status: F Source: [place] VIEWS 3:27 PM [facility] REPOSITORY [facility] Imaging Services [address] [place] [address] Knee 4 or More Views MR#: [id number] Acct: [id number] Name: RAMU GONZALES Rep #: [id number] : 1940 M 76 From: Andre Crisostomo MD PCP: Vicki Trejo DO Status: REG CLI Study: Knee 4 or More Views Date of Exam: 08/20/17 Exam# [id number] Ordering Dr: Lesa Alvarado MD STUDY: X-RAY - LEFT KNEE REASON FOR EXAM: Male, 76 years old. Pain, decreased range of motion TECHNIQUE: 4 view(s) of the knee. COMPARISON: 12/08/2016 FINDINGS: Normal visualized distal femur. Normal visualized proximal tibia and fibula. Normal proximal tibiofibular articulation. There is moderate to severe degenerative arthrosis of the medial femorotibial compartment with moderate joint space narrowing. There is mild degenerative arthrosis of the lateral femorotibial compartment. There is moderate degenerative arthrosis of the patellofemoral articulation. Mild soft tissue swelling. RAD/Knee 4 or More Views IMPRESSION: Degenerative arthrosis. Electronically Signed: Lalo Crisostomo MD at 10:12 EDT , Service support , CC: Vicki Trejo DO; Lesa Alvarado MD Porcelain Enamel Repairer: Signed CBC W/DIFF, AUTOMATED Collected: 07/21/2017 Status: F Source: [place] 3:26 PM [facility] REPOSITORY TYPE CODE TESTS RESULT OUT OF RANGE REFERENCE UNITS LAB L100.1000 4.4-11.0 K/mm3 Normal WBC 9.0 LAB L100.1200 4.6-6.2 M/mm3 Normal RBC 4.64 LAB L100.1300 13.0-16.5 g/dl Normal HGB 13.6 LAB L100.1400 40-54 % Normal HCT 42.6 LAB L100.1500 80-94 fL Normal MCV 91.8 LAB L100.1600 27.0-32.0 pg Normal MCH 29.3 LAB L100.1700 32-36 g/gl Low MCHC 31.9 LAB L100.1810 11.6-14.6 % High RDW CV 14.7 LAB L100.1820 35.1-43.9 fl High RDW SD 48.2 LAB L100.1900 150-450 K/mm3 Normal PLT 221 LAB L100.2000 6.2-12.0 fl Normal MPV 11.0 LAB L100.2100 47-70 % High NEUT% 72.7 LAB L100.2200 19-41 % Low LY% 14.4 LAB L100.2300 0-10 % High MONO% 10.2 LAB L100.2400 0-5 % Normal EO% 2.1 LAB L100.2500 0-1 % Normal BASO% 0.3 LAB L100.2550 0.0-0.9 % Normal IM GRAN % 0.300 Result Comment: IG% - Immature Granulocytes (promyelocytes, myelocytes and metamyelocytes) > 1% indicates that a LEFT SHIFT is Present. LAB L100.2620 2.0-7.7 X10 3/uL Normal Absolute Neut 6.5 LAB L100.2720 0.83-4.51 X10 3/ul Normal Absolute Lymph 1.30 Performed By: #### L100.0100, L101.9900 #### [facility] [address] [place], [place], [address] ERYTHROCYTE SED RATE Collected: 07/21/2017 Status: F Source: [place] 3:26 PM [facility] REPOSITORY TYPE CODE TESTS RESULT OUT OF RANGE REFERENCE UNITS LAB L102.0000 0-20 mm/hr Normal SED RATE 18 Performed By: #### L100.0100, L101.9900 #### [facility] [address] [place], [place], [address] COMPREHENSIVE METABOLIC Collected: 07/21/2017 Status: F Source: [facility] 3:26 PM [facility] REPOSITORY TYPE CODE TESTS RESULT OUT OF RANGE REFERENCE UNITS LAB L501.0100 74-106 mg/dL Normal GLU 104 Result Comment: Fasting Glucose result from 100 to 125 mg/dL suggests IMPAIRED HOMEOSTASIS per A.D.A. criteria. Please note revised GLUCOSE reference range effective 2017. LAB L501.1000 7-18 mg/dL High BUN 23 LAB L501.1100 0.70-1.30 mg/dL High CREAT,SERUM 1.47 Result Comment: The validity of the calculated GFR AND GFRAA in patients over 70 years has not been determined. Clinical correlation is essential. LAB L501.1110 >60 mL/min Low EST GFR 50 Result Comment: Non- GFR Calc LAB L501.1115 >60 mL/min Normal EST GFR - AA 60 Result Comment: GFR Calc LAB L501.1300 10-20 RATIO Normal BUN/CRE 15.6 LAB L501.1500 6.4-8.2 g/dL T Normal PROT 7.5 LAB L501.1800 3.2-5.0 g/dL Normal ALB 3.6 LAB L501.1950 2.2-4.2 g/dL Normal GLOB 3.9 LAB L501.2000 0.9-2.4 RATIO Normal A/G 0.9 LAB L501.2200 8.5-10.1 mg/dL CA Normal 8.8 LAB L501.4100 15-37 U/L Normal AST 19 LAB L501.4305 45-117 U/L Normal ALK P 90 LAB L501.4405 16-61 U/L Normal ALT 20 LAB L501.4600 0.20-1.00 mg/dL High T BILI 1.60 LAB L501.5300 136-145 mmol/L NA Normal 143 LAB L501.5600 3.5-5.1 mmol/L K Normal 3.6 LAB L501.5900 98-107 mmol/L CL Normal 106 LAB L501.6100 21.0-32.0 mmol/L Normal CO2 28.0 LAB L501.6200 5-15 Normal GAP 9 Performed By: #### L500.4050, L501.1400, L501.6710, L505.7010 #### [facility] [address] [place], [place], [address] URIC ACID Collected: 07/21/2017 Status: F Source: [place] 3:26 PM [facility] REPOSITORY TYPE CODE TESTS RESULT OUT OF RANGE REFERENCE UNITS LAB L501.1400 3.5-7.2 mg/dL High URIC 10.7 Result Comment: The drugs N-Acetylcysteine and Metamizole may falsely depress this assay. Performed By: #### L500.4050, L501.1400, L501.6710, L505.7010 #### [facility] [address] [place], [address] CRP Collected: 07/21/2017 Status: F Source: [place] 3:26 PM [facility] REPOSITORY TYPE CODE TESTS RESULT OUT OF RANGE REFERENCE UNITS LAB L501.6710 0.0-3.0 mg/L High 8.60 C-REACTIVE PROT Result Comment: C-Reactive Protein (CRP) provides useful information for the diagnosis, therapy and monitoring of inflammatory processes and associated diseases. For the evaluation of Relative Risk for Cardiovascular Disease, a High Sensitivity CRP (HSCRP) should be ordered. Performed By: #### L500.4050, L501.1400, L501.6710, L505.7010 #### [facility] [address] [place], [place], [address] RHEUMATOID FACTOR Collected: 07/21/2017 Status: F Source: [place] 3:26 PM [facility] REPOSITORY TYPE CODE TESTS RESULT OUT OF RANGE REFERENCE UNITS LAB L505.7010 <15 IU/mL Normal RHEUMATOID FAC < 10.0 Performed By: #### L500.4050, L501.1400, L501.6710, L505.7010 #### [facility] [address] [place], [place], [address] HEPATITIS B SURFACE Collected: 07/21/2017 Status: F Source: [place] [facility] 3:26 PM [facility] REPOSITORY TYPE CODE TESTS RESULT OUT OF RANGE REFERENCE UNITS LAB L3100.0400 Negative Normal HB Negative SURF AG Result Comment: Performed at: - [facility] [id number] Farmworker Vegetable: Christopher Molina PhD, Phone: [phone] Performed at: - [facility] [id number] Farmworker Vegetable: Dillon Falk MD, Phone: [phone] Performed By: #### L3100.0390, L3100.0528, L3100.0625, L4600.0100 #### [facility] (refer to report for specific site) refer to report for address and phone number HEP B SURFACE Collected: 07/21/2017 Status: F Source: [place] ANTIBODIES 3:26 PM [facility] REPOSITORY TYPE CODE TESTS RESULT OUT OF RANGE REFERENCE UNITS LAB L3100.0528 . Normal Hep B Non Reactive Patricia AB Result Comment: Non Reactive: Inconsistent with immunity, less than 10 mIU/mL Reactive: Consistent with immunity, greater than 9.9 mIU/mL Performed By: #### L3100.0390, L3100.0528, L3100.0625, L4600.0100 #### [facility] (refer to report for specific site) refer to report for address and phone number HEPATITIS C ANTIBODIES Collected: 07/21/2017 Status: F Source: [place] 3:26 PM [facility] REPOSITORY TYPE CODE TESTS RESULT OUT OF RANGE REFERENCE UNITS LAB L3100.0650 0.0-0.9 s/co ratio Normal HEP C AB <0.1 Result Comment: Negative: < 0.8 Indeterminate: 0.8 - 0.9 Positive: > 0.9 The CDC recommends that a positive HCV antibody result be followed up with a HCV Nucleic Acid Amplification test (739296). Performed By: #### L3100.0390, L3100.0528, L3100.0625, L4600.0100 #### [facility] (refer to report for specific site) refer to report for address and phone number CCP IGG ANTIBODIES Collected: 07/21/2017 Status: F Source: [place] 3:26 PM [facility] REPOSITORY TYPE CODE TESTS RESULT OUT OF RANGE REFERENCE UNITS LAB L4600.0100 0-19 units Normal ANTI-CCP 8 768223 Result Comment: Negative <20 Weak positive 20 - 39 Moderate positive 40 - 59 Strong positive >59 Performed By: #### L3100.0390, L3100.0528, L3100.0625, L4600.0100 #### [facility] (refer to report for specific site) refer to report for address and phone number PARATHYROID SCAN Observed: 06/24/2017 Status: F Source: [place] 9:54 AM [facility] REPOSITORY [facility] Imaging Services [address] [place] [address] Parathyroid Scan MR#: [id number] Acct: [id number] Name: JANETRAMU Kate Rep #: [id number] : 1940 M 76 From: Rickie Mcelroy DO PCP: Vicki Trejo DO Status: REG CLI Study: Parathyroid Scan Date of Exam: 06/24/17 Exam# [id number] Ordering Dr: Vicki Trejo DO CLINICAL: 76-year-old male with reported history of elevation of the serum parathyroid hormone level. 99m Tc SESTAMIBI DUAL PHASE PARATHYROID SCINTIGRAPHY COMPARISON: None available FINDINGS: Following the intravenous administration of 25.4 mCi of 99m Tc sestamibi, [...] a visualized parathyroid adenoma. 2. No other definitive scintigraphic abnormalities are defined. Electronically Signed: Rickie Mcelroy DO at 11:28 EDT Tel , Service support , CC: Vicki Trejo DO Porcelain Enamel Repairer: Signed HAND MIN 3 VIEWS Observed: 06/17/2017 Status: F Source: [place] 12:16 PM [facility] REPOSITORY [facility] Imaging Services [address] [place] [address] Hand Min 3 Views MR#: [id number] Acct: [id number] Name: RAMU GONZALES Rep #: [id number] : 1940 M 76 From: Trung Gonzalez DO PCP: Vicki Trejo DO Status: REG CLI Study: Hand Min 3 Views Date of Exam: 06/17/17 Exam# [id number] Ordering Dr: Vicki Trejo DO STUDY: X-RAY - RIGHT HAND REASON FOR EXAM: Male, 76 years old. Swelling, redness TECHNIQUE: 3 view(s) of the hand. COMPARISON: None. FINDINGS: The bones are demineralized. Normal distal radioulnar joint. Normal visualized carpal bones. Normal carpal articulations Normal carpometacarpal articulation of the thumb. Normal second through fifth carpometacarpal joints. Normal metacarpi. There is soft tissue swelling at the [...] of the proximal third phalanx. There may be a small erosion along the radial and distal aspect of the proximal third phalanx. Mild joint space narrowing is seen within the interphalangeal joints. There is soft tissue swelling of the third digit. RAD/Hand Min 3 Views IMPRESSION: Osteopenia without acute fracture. Findings suggest erosive arthropathy within the third finger. Mild interphalangeal joint space narrowing. Electronically Signed: Trung Gonzalez DO at 11:37 EDT Tel , Service support , CC: Vicki Trejo DO Porcelain Enamel Repairer: Signed CARDIOLOGY VISIT Observed: 06/16/2017 Status: F Source: [place] REPORT 2:17 PM [facility] REPOSITORY [facility] [address] [place] [address] OFFICE VISIT Date of Service: 06/16/17 MR#: [id number] Acct: [id number] Name: RAMU GONZALES Rep #: [id number] : 1940 Provider: LUIS Sanders Age/Sex: 76/M [place] [facility] [place]: Signed [facility] Details: RAMU GONZALES, is a 76 M who presents to the office today for a cardiovascular outpatient follow-up. 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 Required: No Accompanied by: None Is patient in pain?: Yes (FELICITY hands, arthritis) Pain scale (1-10): 5 Allergies aspirin Allergy (Intermediate, Verified 06/16/17 09:18) Swelling around eyes acetaminophen [From Vicodin] Adverse Reaction (Severe, Verified 06/16/17 09:18) Rash hydrocodone [From Vicodin] Adverse Reaction (Severe, Verified 06/16/17 09:18) Rash pseudoephedrine [From Sudafed] Adverse Reaction (Severe, Verified 06/16/17 09:18) Myalgias AND flu like symptoms simvastatin [From Zocor] Adverse Reaction (Severe, Verified 06/16/17 09:18) Myalgias Sulfa (Sulfonamide Antibiotics) Adverse Reaction (Mild, Verified 06/16/17 09:18) Severe Pain in joints Medications Finasteride [Proscar] [...] 12/12/16 [Rx Confirmed 06/14/17] Hydrocodone Bitart/Apap 5-325 [[place] 5/325] 1 tab PO Q6H PRN PRN #30 tab 12/12/16 [Rx Confirmed 06/14/17] apixaban 2.5 mg tablet 2.5 mg PO BID #14 tab 04/08/17 [Rx Confirmed 06/14/17] Ejection fraction %: 40 to 44 PFSH Medical History History of stroke (Chronic) Old myocardial infarction (Chronic) Acute on chronic systolic (congestive) heart failure (Chronic) Hyperlipidemia (Chronic) alf use of drug (Chronic) Ischemic cardiomyopathy (Chronic) FH: sudden cardiac (SCD) (Chronic) 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 of premature coronary heart disease (Chronic) Edema (Chronic) Pleural effusion (Chronic) Diabetes mellitus type 2 in obese (Chronic) Venous insufficiency (Chronic) HTN (hypertension) (Chronic) CAD (coronary artery disease) (Chronic) Atrial fibrillation (Chronic) Cardiomyopathy, ischemic (Chronic) AUDRA (obstructive sleep apnea) (Chronic) Mitral regurgitation (Chronic) Morbid obesity (Chronic) Surgical History S/P CABG (coronary artery bypass graft) (Chronic) Family History Father Sudden cardiac Sister Heart disease Sudden cardiac Father Sudden cardiac Social History Smoking Status: Never smoker alcohol intake: current alcohol intake frequency: a few times a week Alcohol [...] GI: Negative nausea, black,tarry stools, bright, red blood in stools or vomiting blood/hematemesis : Positive for frequent nighttime urination/ nocturia; negative for hematuria Musc Musc: Negative for muscle aches/ myalgia Neuro Neuro: Negative for weakness, dizziness, lightheadedness, near syncope, syncope or orthostatic symptoms Endo Endo: Negative for fatigue Cardiology Exam Const Appearance: cooperative, healthy appearing, comfortable and no acute distress Orientation: alert, awake and oriented x3 Head Head: normal to inspection Mouth: oral mucosae normal Neck Neck: no JVD and normal visual inspection Carotids: normal carotid upstroke Chest Chest inspection: normal inspection of the chest and normal respiratory effort Auscultation: Bilateral: Clear to Auscultation Cardio Rate: regular rate Rhythm: irregularly irregular Heart sounds: S1 normal and S2 normal; negative rub or gallop GI GI: normal to inspection Neuro General: alert, awake, oriented x3 and CN's II-XI intact bilaterally Skin Skin: no rashes or lesions noted Extremities Pulses: Normal: Right Posterior Tibial Pulse, Left Posterior Tibial Pulse, Right Radial Pulse, Left Radial Pulse Lower Extremity Edema: None: Bilateral Psych Psychological: normal affect Supplemental Info Echocardiogram from December 2016 showed an estimated ejection fraction of 40%, mild tricuspid valve insufficiency, moderately enlarged left atrium, moderately enlarged right atrium, and an RSVP of 26 mmHg. Nuclear stress test from May 2015 was negative for stress- induced myocardial ischemia. Assessment AND Plan 1. Cardiomyopathy, ischemic I25.5 TF in November 2015 is 40%. Plan - TARIQ Jay Patient's most recent echocardiogram from December 2016 showed an estimated ejection fraction of 40%. Patient denies any shortness of breath or worsening lower extremity pedal edema. Patient does notice improved edema since he has adjusted his diet. Patient will continue current medications which include beta-evelin and diuretic. 2. Atherosclerosis of [place] coronary artery of [place] heart without angina pectoris I25.10 S/P CABG in 2003 with VILLEDA to LAD, SVG to LXC, and SVG posterior descending; Plan - TARIQ Jay Patient's most recent stress test from May 2015 was negative for stress-induced myocardial ischemia. Patient denies any chest pain, arm pain, jaw pain, neck pain, shortness of breath, or fatigue suggestive of angina at this time. We will continue to monitor this. We will not make any medication regimen changes and will continue risk factor modification. 3. Persistent atrial fibrillation I48.1 Plan - TARIQ Jay Patient states he has not been on amiodarone therapy since his discharge from hospital in December 2016. His heart rate is well-controlled today in office. He was asked to continue to monitor his heart rate at home and contact our office if he notices if it increases and at that time we can consider further adjustment with medication if needed. Patient will also continue with factor Xa inhibitor. 4. Essential hypertension I10 Plan - TARIQ Jay Though patient has been out of his Cardura, his blood pressure been well controlled. If his blood pressure increases or remains elevated we can investigate if Cardura is available at a different dosage. Patient would like to stick to Cardura due to both blood pressure and prostate benefits. At this time we will not make any changes and patient was instructed to contact our office if any concerns regarding his blood pressure. 5. Mixed hyperlipidemia E78.2 Plan - TARIQ Jay This is being evaluated/monitored by primary care physician. Patient is not on any cholesterol lowering medication. 6. ferry terminal agent use of drug Z79.899 Plan - TARIQ Jay Patient will continue with factor Xa inhibitor. Plan Detail Other Medications Discontinued: Additional Comments - TARIQ Jay Discussed the above patient with Dr. Greenfield, he agrees [...] prior to saving. 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 (MANAGER PATHOLOGY) Coding Level of Care Code Off vis,est,level 3 Diagnoses Cardiomyopathy, ischemic I25.5 Atherosclerosis of [place] coronary artery of [place] heart without angina pectoris I25.10 Persistent atrial fibrillation I48.1 Atrial fibrillation type: persistent Essential hypertension I10 Hypertension type: essential hypertension Mixed hyperlipidemia E78.2 Hyperlipidemia type: mixed hyperlipidemia alf use of drug Z79.899 Coding Level of Care Code Off vis,est,level 3 Diagnoses Cardiomyopathy, ischemic I25.5 Atherosclerosis of [place] coronary artery of [place] heart without angina pectoris I25.10 Persistent atrial fibrillation I48.1 Atrial fibrillation type: persistent Essential hypertension I10 Hypertension type: essential hypertension Mixed hyperlipidemia E78.2 Hyperlipidemia type: mixed hyperlipidemia alf use of drug Z79.899 06/16/17 1139 <Electronically signed by Ramu Sanders COMPENSATION ADJUSTER-C> Date Ramu Sanders COMPENSATION ADJUSTER-C 06/16/17 1417<Electronically signed by Jimi Greenfield MD> Cosigner Signature: Date (if applicable) Jimi Greenfield MD CC: Vicki Trejo DO ALLERGIES ALLERGIES DATE TYPE / CODE NAME / CODE REACTION SEVERITY SOURCE 01/13/2018 Drug Sulfa Severe Pain in [facility] Allergy/4160 (Sulfonamide joints Hospital 62822(SNOMED Antibiotics)/ Repository CT) [id number](RX NORM) 01/13/2018 Drug hydrocodone/F Rash [facility] Allergy/4160 950513891(RXN Hospital 16840(SNOMED ORM) Repository CT) 01/13/2018 Drug aspirin/F0060 Swelling around MO [facility] Allergy/4160 49968(RXNORM) eyes Hospital 34162(SNOMED Repository CT) 01/13/2018 Drug acetaminophen Rash [facility] Allergy/4160 /[id number](R Hospital 38928(SNOMED XNORM) Repository CT) 01/13/2018 Drug pseudoephedri Myalgias flu [facility] Allergy/4160 ne/[id number] like symptoms Hospital 78098(SNOMED (RXNORM) Repository CT) 01/13/2018 Drug simvastatin/F MYALGIAS [facility] Allergy/4160 448413638(N Hospital 72977(SNOMED ORM) Repository CT) ENCOUNTERS ENCOUNTERS ADMIT/DISCHARGE ACCOUNT ADMITTING ENCOUNTER LOCATION SOURCE NUMBER CLASS 03/04/2018 [id number] Ambulatory [place] 3 [facility] HospitalBuild Hospital ing:MTLAB Repository 01/13/2018/ [id number] Ambulatory BMSBuilding:B [place] 8 1 [facility] Repository 12/02/2017 [id number] Ambulatory [place] 7 [facility] ing:MTLAB Repository 10/19/2017 [id number] Ambulatory [place] 3 [facility] ing:LAB.FUTUR Repository E 08/20/2017 [id number] Ambulatory [place] 0 [facility] ing:MTRAD Repository 07/21/2017 [id number] Amb[place] [facility] ing:MTLAB Repository 06/24/2017 [id number] Ambulatory [place] 9 [facility] ing:NM Repository 06/17/2017 [id number] Amb[place] [facility] ing:HPRAD Repository 06/16/2017/ [id number] Ambulatory BMSBuilding:B [place] 8 9 [facility] Repository 05/19/2017 [id number] Ambulatory B[facility]Building:B [place] 2 [facility] Repository PAYERS PAYERS ENCOUNTER GUARANTOR PAYER SUBSCRIBER SOURCE 03/04/2018 RAMU S Primary RAMU S [place] [id number] Insurance:MEDICARE COLEMANDOB: [facility] [id number] Number: Repository [id number]: 330 [id number] [phone] () Date:2018-03-04 03/04/2018 Secondary RAMU S [place] Insurance:[facility] COLEMANDOB: [facility] [id number] Hospital Number: Repository [id number] Date:[id number] [id number]: 03/04/2018 Tertiary NOT GIVENUNK [place] Insurance:SELF PAY [facility] Number: Effective Repository Date:2018-03-04 01/13/2018 RAMU S Primary RAMU S [place] [id number] Insurance:MEDICARE COLEMANDOB: [facility] PART A [facility] [id number] Number: Repository [address]Dju: 330 [id number] (HP) Date:2017-06-16 01/13/2018 Secondary RAMU S [place] Insurance:[employer] COLEMANDOB[facility] [id number] Hospital Number: Repository [id number] Date:0786-06-70[address] [address]GH: 01/13/2018 Tertiary NOT GIVENUNK Mick Insurance:SELF PAY [facility] Effective Repository Date:2018-01-13 12/02/2017 RAMU S Primary RAMU S Mick [id number] Insurance:MEDICARE COLEMANDOB: Community [facility] PART A [facility] [id number] Number: Repository [id number]: 330 [id number] [phone] () Date:2017-12-02 12/02/2017 Secondary RAMU S [place] Insurance:WPS COLEMANDOB: Community FOR [facility] [id number] Hospital Number: Repository [id number] Date:7415-70-92[address] [place] [address]HU: 12/02/2017 Tertiary NOT GIVENUNK [place] Insurance:SELF PAY [facility] Number: Effective Repository Date:2017-12-02 10/19/2017 RAMU S Primary RAMU S Mick [id number] Insurance:MEDICARE COLEMANDOB: Community DAVID PART A [facility] [id number] [place] Number: Repository [id number]: 330 [id number] [phone] () Date:2017-10-17 10/19/2017 Secondary RAMU S [place] Insurance:WPS COLEMANDOB: [facility] FOR [facility] [id number] Hospital Number: Repository [id number] Date:4944-69-91[address] [address]FD: 10/19/2017 Tertiary NOT GIVENUNK [place] Insurance:SELF PAY [facility] Number: Effective Repository Date:2017-10-17 08/20/2017 RAMU S Primary RAMU S [place] [id number] Insurance:MEDICARE COLEMANDOB: Community DAVID PART A [facility] [id number] [place] Number: Repository [id number]: 330 [id number] [phone] () Date:2017-08-20 08/20/2017 Secondary RAMU S [place] Insurance:WPS COLEMANDOB: [facility] FOR [facility] [id number] Hospital Number: Repository [id number] Date:7117-80-46[address] [place] [address]DP: 08/20/2017 Tertiary NOT GIVENUNK [place] Insurance:SELF PAY [facility] Number: Effective Repository Date:2017-08-20 07/21/2017 RAMU S Primary RAMU S Mick [id number] Insurance:MEDICARE COLEMANDOB: Community DAVID PART A [facility] [id number] [place] Number: Repository [id number]: 330 [id number] [phone] () Date:2017-07-21 07/21/2017 Secondary RAMU S [place] Insurance:WPS COLEMANDOB: [facility] [id number] Hospital Number: Repository [id number] Date:8395-36-30[address] [address]JT: 07/21/2017 Tertiary NOT GIVENUNK [place] Insurance:SELF PAY [facility] Number: Effective Repository Date:2017-07-21 06/24/2017 RAMU S Primary RAMU S [place] [id number] Insurance:MEDICARE COLEMANDOB: Community DVAID PART A [facility] [id number] [place] Number: Repository [id number]: 330 [id number] [phone] () Date:2017-06-18 06/24/2017 Secondary RAMU S [place] Insurance:WPS COLEMANDOB: [facility] [id number] Hospital Number: Repository [id number] Date:3948-93-53[address] [place] [address]LT: 06/24/2017 Tertiary NOT GIVENUNK [place] Insurance:SELF PAY [facility] Number: Effective Repository Date:2017-06-18 06/17/2017 RAMU S Primary RAMU [place] [id number] Insurance:MEDICARE COLEMANDOB: Community DAVID PART A [facility] [id number] [place] Number: Repository [id number]: 330 [id number] [phone] (HP) Date:2017-06-17 06/17/2017 Secondary RAMU S [place] Insurance:WPS COLEMANDOB: [facility] FOR [facility] [id number] Hospital Number: Repository [id number] Date:9916-43-83[address] [place] [address]XS: 06/17/2017 Tertiary NOT GIVENUNK [place] Insurance:SELF PAY [facility] Number: Effective Repository Date:2017-06-17 06/16/2017 RAMU S Primary RAMU [place] [id number] Insurance:MEDICARE COLEMANDOB: Community DAVID PART A [facility] [id number] [place] Number: Repository [address]Hon: 330 [id number] [phone] () Date:2017-05-18 06/16/2017 Secondary RAMU S [place] Insurance:WPS COLEMANDOB: [facility] FOR [facility] [id number] Hospital Number: Repository [id number] Date:3726-74-45[address] [place] [address]TY: 06/16/2017 Tertiary NOT GIVENUNK [place] Insurance:SELF PAY [facility] Number: Effective Repository Date:2017-05-18 05/19/2017 Ramu S Primary Ramu S [place] [id number] Insurance:MEDICARE ColemanDOB: Community David PART A [facility] [id number] Number: Repository [id number]: 330 [id number] [phone] () Date:2017-03-13 05/19/2017 Secondary Ramu [place] Insurance:WPS VIKTOR MacdonaldmanDOB: [facility] [id number] Hospital Number: Repository [id number] Date:6144-66-82NA [address] [address]AT: 05/19/2017 Tertiary NOT GIVENYOUSIF [place] Insurance:SELF PAY [facility] Number: Effective Repository Date:2017-03-13
== END ==
PROVIDERS: Family Provider Internal Medicine; PCP Internal Medicine; Referring Provider Internal Medicine Rheumatology; Visit Provider Internal Medicine Rheumatology
DX: M06.4 Inflammatory polyarthropathy (principal); E55.9 Vitamin D deficiency, unspecified
CPT/HCPCS: 36415; 80053; 82306; 83970; 84550; 85025

== ENCOUNTER → 2018-05-26 15:58 | Outpatient (CLI) | payer MEDICARE, OTHER, SELFPAY ==
[2018-01-13 09:56] VITALS: BMI 36.1
[2018-05-26 17:55] LABS: AST(SGOT) 18 U/L (15-37); Alanine Aminotransfer ALT/SGPT 21 U/L (16-61); Albumin, Serum 3.6 g/dL (3.2-5.0); Alkaline Phosphatase 86 U/L (45-117); Anion Gap 8 (5-15); BUN 26 mg/dL (7-18); BUN/Creat Ratio 15.5 RATIO (10-20); Calcium,Total 8.5 mg/dL (8.5-10.1); Chloride 105 mmol/L (98-107); Creatinine, Serum 1.68 mg/dL (0.70-1.30); EST Glomerular Filtration Rate 42 mL/min (>60); Est Glom Filt Rate - Afr Amer 51 mL/min (>60); Globulin 3.5 g/dL (2.2-4.2); Glucose 163 mg/dL (74-106); Potassium 3.7 mmol/L (3.5-5.1); Protein, Total 7.1 g/dL (6.4-8.2); Sodium Level 139 mmol/L (136-145)
[2018-05-26 18:01] LABS: Vitamin D,25 Hydroxy 20.8 ng/mL (29.95-100.01)
[2018-05-26 18:02] LABS: PTHIN 150.1 pg/mL (18.4-80.1)
== END ==
PROVIDERS: Family Provider Internal Medicine; PCP Internal Medicine; Referring Provider Internal Medicine Endocrinology, Diabetes & Metabolism; Visit Provider Internal Medicine Endocrinology, Diabetes & Metabolism
DX: E55.9 Vitamin D deficiency, unspecified (principal); N25.81 Secondary hyperparathyroidism of renal origin
CPT/HCPCS: 36415; 80053; 82306; 83970

== ENCOUNTER → 2018-06-20 16:35 | Outpatient (CLI) | payer MEDICARE, OTHER, SELFPAY ==
[2018-01-13 09:56] VITALS: BMI 36.1
[2018-06-20 17:30] LABS: Absolute Lymphocyte Count 1.28 X10^3/ul (0.83-4.51); Absolute Neutrophil Count 4.8 X10^3/uL (2.0-7.7); Basophil# 0.03 X10^3/uL; Basophil% 0.4 % (0-1); Eosinophil# 0.25 X10^3/uL; Eosinophils% 3.4 % (0-5); Hematocrit 44.8 % (40-54); Hemoglobin 14.3 g/dl (13.0-16.5); Lymphocyte # 1.28 X10^3/ul (4.0); Lymphocyte % 17.7 % (19-41); Mean Corp Hgb Conc 31.9 g/gl (32-36); Monocyte# 0.83 X10^3/uL; Monocyte% 11.4 % (0-10); Neutrophil # 4.83 X10^3/uL (2.7-7.7); Neutrophil % 66.7 % (47-70); POSITIVE COUNT NO; POSITIVE DIFFERENTIAL NO; POSITIVE MORPHOLOGY NO; Platelet Count 173 K/mm3 (150-450); RBC Distribution Width CV 14.5 % (11.6-14.6); RBC Distribution Width SD 49.2 fl (35.1-43.9); Red Blood Count 4.62 M/mm3 (4.6-6.2); White Blood Count 7.3 K/mm3 (4.4-11.0)
[2018-06-20 17:50] LABS: AST(SGOT) 21 U/L (15-37); Alanine Aminotransfer ALT/SGPT 22 U/L (16-61); Albumin, Serum 3.6 g/dL (3.2-5.0); Alkaline Phosphatase 107 U/L (45-117); Anion Gap 9 (5-15); BUN 23 mg/dL (7-18); BUN/Creat Ratio 13.8 RATIO (10-20); Calcium,Total 8.6 mg/dL (8.5-10.1); Chloride 106 mmol/L (98-107); Creatinine, Serum 1.67 mg/dL (0.70-1.30); EST Glomerular Filtration Rate 43 mL/min (>60); Est Glom Filt Rate - Afr Amer 52 mL/min (>60); Globulin 3.6 g/dL (2.2-4.2); Glucose 178 mg/dL (74-106); Potassium 3.7 mmol/L (3.5-5.1); Protein, Total 7.2 g/dL (6.4-8.2); Sodium Level 142 mmol/L (136-145); Uric Acid 8.2 mg/dL (3.5-7.2)
== END ==
LOC: LABSPEC 16:38 → LAB 16:38
PROVIDERS: Family Provider Internal Medicine; PCP Internal Medicine; Referring Provider Internal Medicine Rheumatology; Visit Provider Internal Medicine Rheumatology
DX: M06.4 Inflammatory polyarthropathy (principal); M1A.9XX1 Chronic gout, unspecified, with tophus (tophi); M15.9 Polyosteoarthritis, unspecified
CPT/HCPCS: 36415; 80053; 84550; 85025

== ENCOUNTER → 2018-07-15 10:03 | Outpatient (CLI) | payer MEDICARE, OTHER, SELFPAY ==
[2018-07-15 11:17] LABS: Anion Gap 7 (5-15); BUN 22 mg/dL (7-18); Calcium,Total 8.6 mg/dL (8.5-10.1); Chloride 104 mmol/L (98-107); Creatinine, Serum 1.83 mg/dL (0.70-1.30); EST Glomerular Filtration Rate 38 mL/min (>60); Est Glom Filt Rate - Afr Amer 46 mL/min (>60); Glucose 228 mg/dL (74-106); Potassium 3.8 mmol/L (3.5-5.1); Sodium Level 141 mmol/L (136-145)
== END ==
PROVIDERS: Family Provider Internal Medicine; PCP Internal Medicine; Referring Provider Internal Medicine Endocrinology, Diabetes & Metabolism; Visit Provider Internal Medicine Endocrinology, Diabetes & Metabolism
DX: N25.81 Secondary hyperparathyroidism of renal origin (principal)
CPT/HCPCS: 36415; 80048; 83970

== ENCOUNTER → 2018-09-15 11:31 | Outpatient (CLI) | payer MEDICARE, OTHER, SELFPAY ==
[2018-07-15 10:30] VITALS: BMI 37.8
[2018-09-15 14:16] LABS: ALB/GLOB Ratio 0.9 RATIO (0.9-2.4); AST(SGOT) 20 U/L (15-37); Alanine Aminotransfer ALT/SGPT 24 U/L (16-61); Albumin, Serum 3.4 g/dL (3.2-5.0); Alkaline Phosphatase 96 U/L (45-117); Anion Gap 9 (5-15); BUN 26 mg/dL (7-18); BUN/Creat Ratio 17.4 RATIO (10-20); Calcium,Total 9.6 mg/dL (8.5-10.1); Chloride 106 mmol/L (98-107); Creatinine, Serum 1.49 mg/dL (0.70-1.30); EST Glomerular Filtration Rate 49 mL/min (>60); Est Glom Filt Rate - Afr Amer 59 mL/min (>60); Globulin 3.8 g/dL (2.2-4.2); Glucose 163 mg/dL (74-106); Potassium 4.1 mmol/L (3.5-5.1); Protein, Total 7.2 g/dL (6.4-8.2); Sodium Level 144 mmol/L (136-145)
[2018-09-15 15:01] LABS: Vitamin D,25 Hydroxy 22.5 ng/mL (29.95-100.01)
[2018-09-15 15:03] LABS: PTHIN 82.1 pg/mL (18.4-80.1)
== END ==
PROVIDERS: Family Provider Internal Medicine; PCP Internal Medicine; Referring Provider Internal Medicine Endocrinology, Diabetes & Metabolism; Visit Provider Internal Medicine Endocrinology, Diabetes & Metabolism
DX: E55.9 Vitamin D deficiency, unspecified (principal); N25.81 Secondary hyperparathyroidism of renal origin
CPT/HCPCS: 36415; 80053; 82306; 83970

== ENCOUNTER → 2018-12-15 16:45 | Outpatient (CLI) | payer MEDICARE, OTHER, SELFPAY ==
[2018-07-15 10:30] VITALS: BMI 37.8
[2018-12-15 17:30] LABS: Absolute Lymphocyte Count 1.11 X10^3/uL (0.83-4.51); Absolute Neutrophil Count 5.4 X10^3/uL (2.0-7.7); Basophil# 0.04 X10^3/uL; Basophil% 0.5 % (0-1); Eosinophil# 0.22 X10^3/uL; Eosinophils% 2.9 % (0-5); Hematocrit 43.6 % (40-54); Hemoglobin 13.9 g/dL (13.0-16.5); Lymphocyte # 1.11 X10^3/ul (4.0); Lymphocyte % 14.5 % (19-41); Mean Corp Hgb Conc 31.9 g/dL (32-36); Mean Corpuscular Hgb 30.5 pg (27.0-32.0); Mean Corpuscular Volume 95.6 fL (80-94); Mean Platelet Vol. 10.7 fl (6.2-12.0); Monocyte# 0.82 X10^3/uL; Monocyte% 10.7 % (0-10); NRBC Flagged by Analyzer 0 % (0-5); Neutrophil # 5.43 X10^3/uL (2.7-7.7); Platelet Count 193 K/mm3 (150-450); RBC Distribution Width CV 12.9 % (11.6-14.6); RBC Distribution Width SD 45.6 fl (35.1-43.9); Red Blood Count 4.56 M/mm3 (4.6-6.2); White Blood Count 7.7 K/mm3 (4.4-11.0)
[2018-12-15 18:06] LABS: Vitamin D,25 Hydroxy 51.6 ng/mL (29.95-100.01)
[2018-12-15 18:13] LABS: ALB/GLOB Ratio 0.9 RATIO (0.9-2.4); AST(SGOT) 18 U/L (15-37); Alanine Aminotransfer ALT/SGPT 19 U/L (16-61); Albumin, Serum 3.4 g/dL (3.2-5.0); Alkaline Phosphatase 83 U/L (45-117); Anion Gap 6 (5-15); BUN 23 mg/dL (7-18); BUN/Creat Ratio 12.6 RATIO (10-20); Calcium,Total 8.7 mg/dL (8.5-10.1); Chloride 107 mmol/L (98-107); Creatinine, Serum 1.82 mg/dL (0.70-1.30); EST Glomerular Filtration Rate 39 mL/min (>60); Est Glom Filt Rate - Afr Amer 47 mL/min (>60); Globulin 3.6 g/dL (2.2-4.2); Glucose 156 mg/dL (74-106); Sodium Level 143 mmol/L (136-145); Uric Acid 10.1 mg/dL (3.5-7.2)
[2018-12-16 12:16] LABS: PTHIN 158.5 pg/mL (18.4-80.1)
== END ==
PROVIDERS: Family Provider Internal Medicine; PCP Internal Medicine; Referring Provider Internal Medicine Rheumatology; Visit Provider Internal Medicine Rheumatology
DX: M06.4 Inflammatory polyarthropathy (principal); M1A.9XX1 Chronic gout, unspecified, with tophus (tophi); N18.9 Chronic kidney disease, unspecified; I25.10 Atherosclerotic heart disease of native coronary artery without angina pectoris; Z95.1 Presence of aortocoronary bypass graft; I50.20 Unspecified systolic (congestive) heart failure; I48.91 Unspecified atrial fibrillation; E78.5 Hyperlipidemia, unspecified; N40.1 Benign prostatic hyperplasia with lower urinary tract symptoms; I69.30 Unspecified sequelae of cerebral infarction; M21.40 Flat foot [pes planus] (acquired), unspecified foot; I12.9 Hypertensive chronic kidney disease with stage 1 through stage 4 chronic kidney disease, or unspecified chronic kidney disease; N25.81 Secondary hyperparathyroidism of renal origin; E55.9 Vitamin D deficiency, unspecified
CPT/HCPCS: 80053; 82306; 83970; 84550; 85025

== ENCOUNTER → 2019-01-27 16:06 | Outpatient (CLI) | payer MEDICARE, OTHER, SELFPAY ==
[2018-07-15 10:30] VITALS: BMI 37.8
--- NOTE | 2019-01-27 16:09 | RAD_ITS ---
STUDY: X-RAY - RIGHT KNEE REASON FOR EXAM: Male, 78 years old. Knee pain. TECHNIQUE: 4 view(s) of the knee. COMPARISON: None. FINDINGS: There is demineralization of the visualized distal femur. There is demineralization of the tibia and fibula. There is arthrosis of the proximal tibiofibular articulation. There is no demonstrated fracture. There is severe degenerative arthrosis of the medial femorotibial compartment with severe joint space narrowing. There is mild to moderate degenerative arthrosis of the lateral femorotibial compartment. There is moderate degenerative arthrosis of the patellofemoral articulation. There is no demonstrated joint effusion. The soft tissue structures are unremarkable. Surgical clips along the medial joint compartment seen. RAD/Knee 4 or More Views IMPRESSION: Degenerative disease as described above. Electronically Signed: Briana Hernandez MD at 2:31 EDT , Service support ,
--- NOTE | 2019-01-27 16:09 | RAD_ITS ---
STUDY: X-RAY - LEFT KNEE REASON FOR EXAM: Male, 78 years old. Knee pain. TECHNIQUE: 4 view(s) of the knee. COMPARISON: None. FINDINGS: Diffuse osteopenia otherwise normal visualized distal femur. Normal visualized proximal tibia and fibula. There is arthrosis of the proximal tibiofibular articulation. There is no demonstrated fracture. There is mild to moderate degenerative arthrosis of the medial femorotibial compartment. There is mild degenerative arthrosis of the lateral femorotibial compartment. There is moderate degenerative arthrosis of the patellofemoral articulation. Minimal joint effusion. There are atherosclerotic calcifications. RAD/Knee 4 or More Views IMPRESSION: Diffuse osteopenia along with degenerative disease as described above. Electronically Signed: Briana Hernandez MD at 2:32 EDT , Service support ,
--- NOTE | 2019-01-27 16:10 | RAD_ITS ---
STUDY: X-RAY - RIGHT KNEE REASON FOR EXAM: Male, 78 years old. Knee pain TECHNIQUE: 3 view(s) of the knee. COMPARISON: 08/20/2017 FINDINGS: Normal visualized distal femur. Normal visualized proximal tibia and fibula. Normal proximal tibiofibular articulation. There is severe degenerative arthrosis of the medial femorotibial compartment with severe joint space narrowing. Normal lateral femorotibial compartment. There is moderate degenerative arthrosis of the patellofemoral articulation. There is a soft tissue prominence in the suprapatellar region suggesting a small volume joint effusion. Surgical neeru are noted. Vascular calcifications are present. RAD/Knee 3 Views IMPRESSION: Medial dominant degenerative changes, worse since 2018. Trace joint effusion. Electronically Signed: Leon Krishnamurthy MD (Brooks) at 17:16 EDT , Service support ,
--- NOTE | 2019-01-27 16:10 | RAD_ITS ---
STUDY: X-RAY - LEFT KNEE REASON FOR EXAM: Male, 78 years old. Left knee pain TECHNIQUE: 3 view(s) of the knee. COMPARISON: 08/20/2017 FINDINGS: Normal visualized distal femur. Normal visualized proximal tibia and fibula. Normal proximal tibiofibular articulation. There is moderate degenerative arthrosis of the medial femorotibial compartment with moderate joint space narrowing. Normal lateral femorotibial compartment. There is mild degenerative arthrosis of the patellofemoral articulation. There is no demonstrated joint effusion. There are atherosclerotic calcifications. RAD/Knee 3 Views IMPRESSION: Similar degenerative changes since 2018. Electronically Signed: Leon Krishnamurthy MD (Brooks) at 17:18 EDT , Service support ,
== END ==
PROVIDERS: Family Provider Internal Medicine; PCP Internal Medicine; Referring Provider Internal Medicine; Visit Provider Internal Medicine
DX: M25.562 Pain in left knee (principal); M25.561 Pain in right knee
CPT/HCPCS: 73562; 73564

== ENCOUNTER 2019-02-17 17:22 | Inpatient (IN) | payer MEDICARE, OTHER, SELFPAY ==
[2019-01-31 11:13] VITALS: BMI 37.3
[2019-02-17] VITALS (9 sets, daily range): BP systolic 110–130; BP diastolic 69–79; PULSE 63–115; RESP 16–24; TEMP 36.4–36.6; O2SAT 89–96; BMI 37.5; BMI 37.6
--- NOTE | 2019-02-17 17:43 | EKG12_ITS ---
Test Reason : SOB Blood Pressure : / mmHG Vent. Rate : 110 BPM Atrial Rate : 111 BPM P-R Int : 000 ms QRS Dur : 108 ms QT Int : 370 ms P-R-T Axes : 000 008 -85 degrees QTc Int : 500 ms Atrial fibrillation with rapid ventricular response with premature ventricular or aberrantly conducte d complexes Inferior infarct , age undetermined ST & T wave abnormality, consider lateral ischemia Abnormal ECG Confirmed by LIBERTAD PHAN, RENITA ([id number]), editorial assistant ELI LAMAS ([id number]) on 02/21/2019 11:09:50 AM Referred By: Sreekanth Bunn Confirmed By:RENITA MAURER MD
[2019-02-17 18:17] LABS: Absolute Lymphocyte Count 1.16 X10^3/uL (0.83-4.51); Absolute Neutrophil Count 6.4 X10^3/uL (2.0-7.7); Basophil# 0.03 X10^3/uL; Basophil% 0.4 % (0-1); Eosinophil# 0.06 X10^3/uL; Eosinophils% 0.7 % (0-5); Hematocrit 44.7 % (40-54); Hemoglobin 14.1 g/dL (13.0-16.5); Lymphocyte # 1.16 X10^3/ul (4.0); Lymphocyte % 13.8 % (19-41); Mean Corp Hgb Conc 31.5 g/dL (32-36); Mean Corpuscular Hgb 29.7 pg (27.0-32.0); Mean Corpuscular Volume 94.1 fL (80-94); Mean Platelet Vol. 11.2 fl (6.2-12.0); Monocyte# 0.74 X10^3/uL; Monocyte% 8.8 % (0-10); NRBC Flagged by Analyzer 0 % (0-5); Neutrophil # 6.35 X10^3/uL (2.7-7.7); Neutrophil % 75.5 % (47-70); Platelet Count 185 K/mm3 (150-450); RBC Distribution Width CV 13.3 % (11.6-14.6); RBC Distribution Width SD 46.1 fl (35.1-43.9); Red Blood Count 4.75 M/mm3 (4.6-6.2); White Blood Count 8.4 K/mm3 (4.4-11.0)
[2019-02-17 18:19] LABS: International Normalized Ratio 1.2; Prothrombin Time (Protime)PT. 15.2 SECONDS (11.7-14.9)
[2019-02-17 18:20] LABS: Partial Thromboplast Time 31.3 Seconds (24.1-36.2)
[2019-02-17 18:29] LABS: AST(SGOT) 51 U/L (15-37); Alanine Aminotransfer ALT/SGPT 58 U/L (16-61); Albumin, Serum 3.1 g/dL (3.2-5.0); Alkaline Phosphatase 63 U/L (45-117); Anion Gap 8 (5-15); BUN 52 mg/dL (7-18); BUN/Creat Ratio 27.2 RATIO (10-20); Bilirubin, Direct 0.53 mg/dL (0.00-0.30); Calcium,Total 8.8 mg/dL (8.5-10.1); Chloride 107 mmol/L (98-107); Creatinine, Serum 1.91 mg/dL (0.70-1.30); EST Glomerular Filtration Rate 37 mL/min (>60); Est Glom Filt Rate - Afr Amer 44 mL/min (>60); Estimated Creatinine Clearance 29.23 ml/min; Globulin 3.9 g/dL (2.2-4.2); Glucose 160 mg/dL (74-106); Potassium 3.7 mmol/L (3.5-5.1); Sodium Level 144 mmol/L (136-145)
--- NOTE | 2019-02-17 18:49 | ED.DCSUM_ITS ---
- ER Visit Summary Date of Service: 02/17/19 Chief Complaint: Shortness of breath History of Present Illness: The patient is a 78 M who has a previous medical history of paroxysmal atrial fibrillation, diabetes, hypertension, hypercholesterolemia, congestive heart failure, coronary artery disease/IA status post CABG (2003) and a prior stroke. Patient tells me for the past week he is felt like he had a little bit of a cold meeting some rhinorrhea little bit of a sore throat and a cough. He then developed some shortness of breath particularly with exertion. He denies any orthopnea. He states that it is now starting to interfere with his activities of daily living is is not able to cook very well due to his shortness of breath. He has been using his nighttime oxygen during the day which is difficult for him as his oxygen unit is in his bedroom. He notes his pulse ox occasionally has been around 85. She is Dr. Greenfield for cardiology Dr. Trejo for PCP. He is on anticoagulation. Physical Examination: Afebrile heart rate 110 respirations are 21 pulse ox 89% on room air at rest Gen: Well-nourished well-developed obese Head: Normocephalic atraumatic Eyes: Perrl EOMI ENT: TMs clear no rhinorrhea moist mucous membranes Neck: Supple no lymphadenopathy no JVD nontender CVS: Regular rate rhythm no murmurs normal S1-S2 Respiratory: Patient shows conversational dyspnea. He has rales at the bases chest nontender Abdomen: Soft nontender nondistended normal bowel sounds no masses Back: Nontender Extremity: Nontender no edema Skin: Normal color no rash Neuro: alert orientated ?3 CN II-XII intact normal strength sensation Psych: Normal affect normal mood Test Results: EKG shows A. fib at a rate of [address] elevation. CBC is normal. Chemistry showed a BUN of 52 with creatinine 1.91. Troponin 0 0.377 beta nitric peptide 1093. Emergency Department Course and Treatment: Patient was given supplemental oxygen. No aspirin was given due to allergy. He received Lasix IV. Impression: 1. Congestive heart failure acute exacerbation 2. Atrial fibrillation with RVR 3. Elevated troponin 4. Chronic kidney disease This note was generated with [employer] dictation software. It may contain incorrect words, spelling, and punctuation that were not noted in review of the chart prior to signing ED Disposition - Plan for ED Patient: Referrals: Vicki Trejo DO [Primary Care Provider] -
[2019-02-17 18:50] LABS: BNP,B-Type NATRIURETIC PEPTIDE 1093.5 pg/mL (0-100)
--- NOTE | 2019-02-17 18:50 | RAD_ITS ---
STUDY: X-RAY CHEST REASON FOR EXAM: Male, 78 years old. Shortness of breath TECHNIQUE: Frontal and lateral views of the chest COMPARISON: 12/08/2016 FINDINGS: There are mild congestive changes noted. The lungs are otherwise clear. There are no pleural effusions. There is no pneumothorax. The heart is enlarged, but stable in size. Again noted are sternotomy wires. The visualized osseous structures are within normal limits. RAD/Chest PA and Lateral IMPRESSION: Mild pulmonary vascular congestion. Electronically Signed: Madhav Arenas, at 19:10 EST Tel , Service support ,
[2019-02-17] MEDS: Furosemide 100 MG/10 ML Vial 60 MG IV (19:35)
--- NOTE | 2019-02-17 19:37 | HP.PCM_ITS ---
Problem List (1) HFrEF (heart failure with reduced ejection fraction) Status: Acute Qualifiers: Heart failure chronicity: acute Qualified Code(s): I50.21 - Acute systolic (congestive) heart failure (2) NSTEMI (non-ST elevated myocardial infarction) Status: Acute History of Present Illness Date of Admission: 02/17/19 Chief Complaint: shortness of breath The patient is a 78 year old M presents with shortness of breath. Several days ago, patient cut back on his Lasix because having issues with urinary incontinence. Noted that he was more short of breath and requiring oxygen. Patient usually just use oxygen at night but was using it during the day. Check his pulse ox and was 85% and put himself on oxygen. Just with the shortness of breath patient presented to the emergency room to be evaluated. In the emergency room, chest x-ray was consistent with pulmonary vascular congestion, troponin was elevated at 0.3 and BNP was over thousand. Patient did receive IV Lasix in the emergency room. Patient denies any chest pain. [] Past Medical History Past Medical History (Chronic Problems): Chronic Problems (Last Reviewed 01/31/19 @ 11:26 by Jimi Greenfield MD) Atherosclerosis of [place] coronary artery of [place] heart without angina pectoris (Chronic) CABG X 3: VILLEDA-LAD, SVG-LCx, SVG-RPDA 10/10/2003 Old inferior wall myocardial infarction (Chronic) Ischemic cardiomyopathy (Chronic) Longstanding persistent atrial fibrillation (Chronic) Acute on chronic systolic (congestive) heart failure (Chronic) CVA (cerebral vascular accident) (Chronic) lower left cerebellar hemisphere Essential (primary) hypertension (Chronic) Hyperlipidemia (Chronic) Medical History: Medical History (Last Reviewed 02/17/19 @ 19:39 by Sreekanth Bunn DO) Atherosclerosis of [place] coronary artery of [place] heart without angina pectoris (Chronic) I25.10 CABG X 3: VILLEDA-LAD, SVG-LCx, SVG-RPDA 10/10/2003 Old inferior wall myocardial infarction (Chronic) I25.2 Ischemic cardiomyopathy (Chronic) I25.5 Longstanding persistent atrial fibrillation (Chronic) I48.11 Acute on chronic systolic (congestive) heart failure (Chronic) I50.23 CVA (cerebral vascular accident) (Chronic) I63.9 lower left cerebellar hemisphere Essential (primary) hypertension (Chronic) I10 Hyperlipidemia (Chronic) E78.5 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, N13.8 Chronic renal failure, stage 3 (moderate) N18.3 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, E66.9 FH: sudden cardiac (SCD) Z82.41 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 of premature coronary heart disease Z82.49 Female < 65 & Male < 55 History of stroke Z86.73 Morbid obesity E66.01 AUDRA (obstructive sleep apnea) G47.33 Obesity E66.9 Venous insufficiency Bilateral pleural effusion (Resolved) J90 Left knee pain (Resolved) M25.562 Localized edema (Resolved) R60.0 Old myocardial infarction (Resolved) I25.2 Inferior MT Mitral regurgitation (Inactive) I34.0 Mild to moderate Noncompliance (Inactive) Z91.19 Paroxysmal atrial fibrillation (Inactive) I48.0 Allergies acetaminophen [From Vicodin] Allergy (Severe, Verified 02/17/19 19:35) Rash hydrocodone [From Vicodin] Allergy (Severe, Verified 02/17/19 19:35) Rash aspirin Allergy (Intermediate, Verified 02/17/19 17:22) Swelling around eyes pseudoephedrine [From Sudafed] Adverse Reaction (Severe, Verified 02/17/19 17:22) Myalgias & flu like symptoms simvastatin [From Zocor] Adverse Reaction (Severe, Verified 02/17/19 17:22) Myalgias Sulfa (Sulfonamide Antibiotics) Adverse Reaction (Mild, Verified 02/17/19 17:22) Severe Pain in joints Home Medications: Ambulatory Orders Medication Instructions Recorded Finasteride [Proscar] 5 mg PO DAILY 04/18/15 Acetaminophen [Tylenol Tablet] 650 mg PO Q6H PRN PRN #20 tab 07/16/15 Bethanechol Chloride [Urecholine] 50 mg PO BID 12/08/16 allopurinol 300 mg tablet 300 mg PO DAILY 01/13/18 colchicine 0.6 mg tablet 0.6 mg PO .mwf tab 01/13/18 doxazosin 4 mg tablet 4 mg PO DAILY 01/13/18 apixaban 2.5 mg tablet 2.5 mg PO BID #180 tab 01/31/19 diltiazem CD 180 mg 180 mg PO Q12 #180 cap 01/31/19 capsule,extended release 24 hr furosemide 40 mg tablet 40 mg PO BID #180 tab 01/31/19 metoprolol tartrate 100 mg tablet 100 mg PO BID #180 tab 01/31/19 potassium chloride ER 10 mEq 10 meq PO DAILY #90 tab 01/31/19 tablet,extended release Surgical History: Surgical History (Last Reviewed 02/17/19 @ 19:39 by Sreekanth Bunn DO) H/O coronary artery bypass surgery (Resolved) Onset Date: 10/10/03 Z95.1 CABG X 3: VILLEDA-LAD, SVG-LCx, SVG-RPDA 10/10/2003 History of cardioversion Onset Date: 2015 Z98.890 Surgical History: coronary bypass surgery, herniorrhaphy, - - Fractures Psychiatric History: No pertinent psych hx Smoking Status: Never smoker - *Family History Maternal Family History: Family History (Last Reviewed 02/17/19 @ 19:39 by Sreekanth Bunn DO) Father Sudden cardiac Sister Heart disease Sudden cardiac Father Sudden cardiac History Items: No pertinent history Paternal Family History: Family History (Last Reviewed 02/17/19 @ 19:39 by Sreekanth Bunn DO) Father Sudden cardiac Sister Heart disease Sudden cardiac Father Sudden cardiac History Items: No pertinent history Review of Systems Constitutional: Denies: Anorexia, Chills, Fever, Night Sweats Eyes: Denies: Blurred vision, Double vision HEENT: Denies: Head Aches, Sinus Congestion, Sinus Drainage Cardiovascular: Denies: Chest Pain, Palpitations Respiratory: Reports: Cough, Shortness of Breath. Denies: Sputum production Gastrointestinal: Denies: Abdominal Pain, Nausea, Vomiting Genitourinary: Denies: Dysuria Musculoskeletal: Reports: - - elbow tophi. Denies: Joint Pain, Joint Tenderness Skin: Denies: Rash, Wounds Neurological: Denies: Balance problems, Blurred vision, Double vision, Change in Speech Psychiatric: Denies: Anxiety, Depression Endocrine: Denies: Change in Body Habitus, Heat/ Cold Intolerance Hematologic/ Lymphatic: Denies: Easy Bruising, Easy Bleeding, Hx of blood clot Comment: All review of systems are otherwise negative except for as mentioned above in the ROS and in the HPI. VTE Information - Inpt Only VTE Present on Admission: No VTE Mechan Device Prophylaxis: None VTE Pharm Prophylaxis ordered?: No Reason prophylaxis not ordered:: Procedure Not Indicated Patient Problems: Active and Suspected Problems (Last Reviewed 01/31/19 @ 11:26 by Jimi Greenfield MD) HFrEF (heart failure with reduced ejection fraction) (Acute) NSTEMI (non-ST elevated myocardial infarction) (Acute) - Physical Exam Vitals/I&O's: Vital Signs Temp Pulse Resp BP Pulse Ox 36.4 C L 91 16 111/79 94 02/17/19 17:34 02/17/19 19:07 02/17/19 19:07 02/17/19 19:07 02/17/19 19:07 Oxygen Flow Rate (L/min) 2 Oxygen Delivery Method Nasal Cannula Weight: 105.687 kg Body Mass Index (BMI) 37.5 Finger Stick Blood Glucose 143 General: Alert, Cooperative, No apparent distress, - - Respiratory distress. No conversational dyspnea. 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 Skin: - - Find the elbows with some superficial abrasions particularly on the left elbow Musculoskeletal: No Tenderness to Palpation of Joints or Extremities, No Muscle Wasting Neurological: Deep Tendon Reflexes 2+/4 and Symmetrical, - - No clonus Psych/Mental Status: Normal Affect, Appropriate Laboratory Results 02/17/19 17:55: WBC 8.4, RBC 4.75, Hgb 14.1, Hct 44.7, MCV 94.1 H, MCH 29.7, MCHC 31.5 L, RDW Std Deviation 46.1 H, RDW Coeff of Francis 13.3, Plt Count 185, MPV 11.2, Immature Gran % (Auto) 0.800, Neut % (Auto) 75.5 H, Lymph % (Auto) 13.8 L , Centre % (Auto) 8.8, Eos % (Auto) 0.7, Baso % (Auto) 0.4, Absolute Neuts (auto) 6.4, Absolute Lymphs (auto) 1.16, Nucleated RBC % 0 02/17/19 17:55: PT 15.2 H, INR 1.2, APTT 31.3 02/17/19 17:55: Sodium 144, Potassium 3.7, Chloride 107, Carbon Dioxide 29.0, Anion Gap 8, BUN 52 H, Creatinine 1.91 H, Estim Creat Clear Calc 29.23, Est GFR (MDRD) Af Amer 44 L, Est GFR (MDRD) Non-Af 37 L, BUN/Creatinine Ratio 27.2 H, Glucose 160 H, Calcium 8.8, Total Bilirubin 1.40 H, Direct Bilirubin 0.53 H, AST 51 H, ALT 58, Alkaline Phosphatase 63, Troponin I 0.377 H, Total Protein 7.0, Albumin 3.1 L, Globulin 3.9 02/17/19 17:55: B-Natriuretic Peptide 1093.5 H Showed atrial fibrillation, rate controlled. Chest x-ray shows some mild palmar vascular congestion. Assessment/Plan All Active Problems (Last Reviewed 01/31/19 @ 11:26 by Jimi Greenfield MD) HFrEF (heart failure with reduced ejection fraction) (Acute) NSTEMI (non-ST elevated myocardial infarction) (Acute) H/O coronary artery bypass surgery (Resolved 10/10/03) Bilateral pleural effusion (Resolved) Left knee pain (Resolved) Localized edema (Resolved) Old myocardial infarction (Resolved) 1. Acute heart failure with a reduced ejection fraction * EF was a 40% from echocardiogram on April 19, 2015 * Plan is to diurese with furosemide. Patient received 60 mg IV in the ER and will continue with 40 mg IV twice daily * Check an echocardiogram * Fluid restriction 2. Non-STEMI * I suspect that type II given the CHF * Patient already anticoagulated on apixaban * Troponins * Consult cardiology for further input. No urgent need for cardiac catheterization at this time. 3. Chronic kidney disease stage 4 * Monitor closely while he is on furosemide 4. Diabetes mellitus type 2 * Not on any medications * sliding scale insulin * Check an A1c 5. atrial fibrillation * Rate controlled * Anticoagulated with apixaban * Tinea with diltiazem and metoprolol 6. BPH * Patient was having some urinary incontinence issues. Patient already on doxazosin and finasteride * Check postvoid residual * Follows with urology as outpatient * Consider tamsulosin 7. VTE prophylaxis: Low risk as patient is already anticoagulated 8. Advanced care planning: Comfort with the patient. Patient wished to be full CODE STATUS at this time. Code Visit Inpatient E&M: 26233 Init Hosp L3
--- NOTE | 2019-02-17 22:02 | CPS ---
Pt.'s oxygen was titrated from 2L - 3L; maintain SpO2 > 88%
[2019-02-17] MEDS: Calcitriol 0.25 MCG Capsule PO (22:29)
[2019-02-17] MEDS: APIXABAN 2.5 MG TABLET PO (22:29)
[2019-02-17] MEDS: dilTIAZem CD 180 MG Capsule PO (22:29)
[2019-02-17] MEDS: Doxazosin 4 MG Tablet PO (22:29)
[2019-02-17] MEDS: BETHANECHOL CHLORIDE 25 MG TABLET 50 MG PO (22:29)
[2019-02-17] MEDS: Finasteride 5 MG Tablet PO (22:29)
[2019-02-17 22:36] LABS: Bedside Glucose 129 mg/dL (70-110)
[2019-02-18] VITALS (15 sets, daily range): BP systolic 104–126; BP diastolic 44–60; PULSE 52–110; RESP 16–20; TEMP 36.4–36.9; O2SAT 91–95
[2019-02-18 01:18] LABS: Hemoglobin A1c 7.6 % (4.2-6.3)
[2019-02-18 06:41] LABS: Bedside Glucose 93 mg/dL (70-110)
[2019-02-18 07:16] LABS: Anion Gap 9 (5-15); BUN 50 mg/dL (7-18); BUN/Creat Ratio 31.2 RATIO (10-20); Calcium,Total 8.3 mg/dL (8.5-10.1); Chloride 107 mmol/L (98-107); EST Glomerular Filtration Rate 45 mL/min (>60); Est Glom Filt Rate - Afr Amer 54 mL/min (>60); Estimated Creatinine Clearance 34.89 ml/min; Glucose 91 mg/dL (74-106); Potassium 3.4 mmol/L (3.5-5.1); Sodium Level 147 mmol/L (136-145)
--- NOTE | 2019-02-18 08:28 | PN_ITS ---
Patient Problems: Active and Suspected Problems (Last Updated 02/18/19 @ 07:17 by Radhames Quach MD) HFrEF (heart failure with reduced ejection fraction) (Acute) NSTEMI (non-ST elevated myocardial infarction) (Acute) Subjective: Chief complaint: Follow-up after admission for acute on chronic systolic CHF. Patient seen and examined. No acute events overnight. Today, he mentioned that his breathing is getting better but still complaining of mild cough with minimal sputum. He complains of mild sinus congestion and sore throat. Denied chest pain, palpitation, dizziness or lightheadedness. He is afebrile, blood pressure and heart rate are stable, pulse ox is 95% on 2.5 L. - Physical Exam Vitals/I&O's: Vital Signs Temp Pulse Resp BP Pulse Ox 97.6 F L 98 16 120/55 L 95 02/18/19 08:18 02/18/19 08:18 02/18/19 08:18 02/18/19 08:18 02/18/19 08:18 Oxygen Flow Rate (L/min) 2.5 Oxygen Delivery Method Nasal Cannula Weight: 232 lb 9.403 oz Body Mass Index (BMI) 37.5 Finger Stick Blood Glucose 143 Intake and Output for Last 24 Hours 02/16/19 02/17/19 02/18/19 23:59 23:59 23:59 Intake Total 220 / 220 Output Total 550 / 550 400 / 400 Balance -330 / -330 -400 / -400 General: Alert, Oriented x3, Cooperative, - - Mildly short of breath. HEENT: Atraumatic, PERRLA, EOMI, Normocephalic Oral: Moist Mucosa, No Gingival or Mucosal Lesions/ Ulcerations Neck: Supple, No JVD, Negative Carotid Bruits, Trachea Midline, Thyroid Normal Size and Texture Lungs: Diminished, Rales, Rhonchi, Short of Breath, - - Decreased breath sounds bilateral, bilateral rhonchi, Rales. Transmitted sounds. Cardiovascular: Normal S1, Normal S2, PMI Normal, Irregular Rate Abdomen: Bowel Sounds Present, Soft, Non Tender, Non-Distended, No Hepato- splenomegaly, Obese Extremities: No clubbing, No cyanosis, No edema Skin: No rashes, No breakdown Lymphatic: No Cervical, Supraclavicular, or Inguinal Adenopathy Neurological: Cranial nerves II-XII grossly intact, Motor Exam 5/5 strength throughout Psych/Mental Status: Normal Affect, Appropriate, Alert and oriented to time, place, person, mood and affect Laboratory Results 02/17/19 17:55: WBC 8.4, RBC 4.75, Hgb 14.1, Hct 44.7, MCV 94.1 H, MCH 29.7, MCHC 31.5 L, RDW Std Deviation 46.1 H, RDW Coeff of Francis 13.3, Plt Count 185, MPV 11.2, Immature Gran % (Auto) 0.800, Neut % (Auto) 75.5 H, Lymph % (Auto) 13.8 L, Coles % (Auto) 8.8, Eos % (Auto) 0.7, Baso % (Auto) 0.4, Absolute Neuts (auto) 6.4, Absolute Lymphs (auto) 1.16, Nucleated RBC % 0 02/17/19 17:55: PT 15.2 H, INR 1.2, APTT 31.3 02/17/19 17:55: Sodium 144, Potassium 3.7, Chloride 107, Carbon Dioxide 29.0, Anion Gap 8, BUN 52 H, Creatinine 1.91 H, Estim Creat Clear Calc 29.23, Est GFR (MDRD) Af Amer 44 L, Est GFR (MDRD) Non-Af 37 L, BUN/Creatinine Ratio 27.2 H, Glucose 160 H, Calcium 8.8, Total Bilirubin 1.40 H, Direct Bilirubin 0.53 H, AST 51 H, ALT 58, Alkaline Phosphatase 63, Troponin I 0.377 H, Total Protein 7.0, Albumin 3.1 L, Globulin 3.9 02/17/19 17:55: B-Natriuretic Peptide 1093.5 H 02/17/19 21:32: POC Glucose 129 H 02/17/19 21:40: Troponin I 0.331 H 02/18/19 00:50: Hemoglobin A1c 7.6 H 02/18/19 00:50: Troponin I 0.343 H 02/18/19 06:32: Sodium 147 H, Potassium 3.4 L, Chloride 107, Carbon Dioxide 31.0, Anion Gap 9, BUN 50 H, Creatinine 1.60 H, Estim Creat Clear Calc 34.89, Est GFR (MDRD) Af Amer 54 L, Est GFR (MDRD) Non-Af 45 L, BUN/Creatinine Ratio 31.2 H, Glucose 91, Calcium 8.3 L 02/18/19 06:33: POC Glucose 93 Clinical Impression(s) from Imaging Studies Chest X-Ray 02/17/19 18:50 IMPRESSION: Mild pulmonary vascular congestion. Electronically Signed: Madhav Arenas, at 19:10 EST Tel , Service support , Current Medications Acetaminophen (Tylenol) 650 mg PO Q6H PRN PRN PRN Reason: Pain Score 1-3/Temp > 100.7 F [facility] Apixaban (Eliquis) 2.5 mg PO BID [facility] Last Admin: 02/17/19 22:29 Dose: 2.5 mg Documented by: Bethanechol Chloride (Bethanechol Chloride) 50 mg PO BID [facility] Last Admin: 02/17/19 22:29 Dose: 50 mg Documented by: Calcitriol (Rocaltrol) 0.25 mcg PO QHS [facility] Last Admin: 02/17/19 22:29 Dose: 0.25 mcg Documented by: Colchicine (Colchicine) 0.6 mg PO DAILY PRN PRN PRN Reason: gout flare Dextrose (D50w Syringe) 0 gm IV X1 PRN; Protocol PRN Reason: Hypoglycemia Diltiazem HCl (Cardizem Cd) 180 mg PO Q12 [facility] Last Admin: 02/17/19 22:29 Dose: 180 mg Documented by: Doxazosin Mesylate (Cardura) 4 mg PO QHS [facility] Last Admin: 02/17/19 22:29 Dose: 4 mg Documented by: Ergocalciferol (Vitamin D) 50,000 unit PO WE [facility] Finasteride (Proscar) 5 mg PO DAILY@2200 [facility] Last Admin: 02/17/19 22:29 Dose: 5 mg Documented by: Furosemide (Lasix) 40 mg IV BIDLX [facility] Glucagon () 1 mg IM .X1 PRN PRN Reason: Hypoglycemia Guaifenesin (Robitussin) 20 ml PO Q4H PRN PRN PRN Reason: COUGH Insulin Human Lispro (Humalog Kwikpen (Bkc)) 0 unit SC TIDAC [facility]; Protocol Last Admin: 02/18/19 06:38 Dose: Not Given Documented by: Melatonin (Melatonin) 3 mg PO QHS PRN PRN PRN Reason: INSOMNIA Metoprolol Succinate (Toprol Xl (Beta Fiordaliza)) 100 mg PO DAILY [facility] Nutritional Formula (Lactose Free) (Glucerna Shake) 60 ml PO TIDCM [facility] Ondansetron HCl (Zofran) 4 mg IV Q8H PRN PRN PRN Reason: NAUSEA/VOMITING Oxycodone HCl (Oxyir) 5 mg PO Q4H PRN PRN PRN Reason: Pain Score 4-10/10 Potassium Chloride (K-Dur) [facility] Medical Necessity - Tobacco Use Smoking Status: Never smoker Assessment/Plan All Active Problems (Last Updated 02/18/19 @ 07:17 by Radhames Quach MD) HFrEF (heart failure with reduced ejection fraction) (Acute) NSTEMI (non-ST elevated myocardial infarction) (Acute) This is a 78 years old male patient presented to the emergency room because of worsening shortness of breath, also complained of mild sinus congestion, rhinorrhea, cough and sore throat and he was admitted for acute on chronic systolic CHF. #1 acute on chronic systolic CHF: Likely due to noncompliance and probable URTI. Patient did admit that he misses some Lasix doses because of urinary incontinence. He is on IV Lasix, on metoprolol but he is not on DALE inhibitors because of CKD. EKG revealed A. fib, ST segment depression in leads V4, V5 and V6 which are chronic, no acute ischemic changes. Troponin is borderline elevated and flat. Patient had 2D echocardiogram back on December, that showed ejection fraction of 40%. Chest x-ray reviewed. Cardiology consulted. Plan: Respiratory panel for viruses, increase IV Lasix to every 8 hours, repeat CBC and BMP tomorrow morning, chest physiotherapy. #2 probable non-ST elevation SC: Secondary to #1. Troponin is borderline elevated and flat. Patient having chest pain. EKG showed no acute ischemic changes. 2D echocardiogram ordered. #3 CAD status post CABG: Plan as above, continue IV diuresis, continue Eliquis, metoprolol. #4 chronic atrial fibrillation: Rate is controlled, continue Cardizem and metoprolol for rate control, continue Eliquis for anticoagulation. #5 hypertension: Blood pressure stable, continue Lasix, metoprolol. #6 benign prostatic hypertrophy: Continue Cardura and Proscar. #7 stage III chronic kidney disease: Baseline creatinine has been around 1.3 to 1.8 mg/dL. Today's creatinine is 1.60, improved compared to yesterday. #8 chronic respiratory failure: On home oxygen mainly at night at 2 L. Plan as above. #9 DVT prophylaxis: Continue Eliquis. This note was generated with [employer] dictation software. It may contain incorrect words, spelling, and punctuation that were not noted in checking the note before signing. Code Visit Inpatient E&M: 80710 Subs Hosp L2
--- NOTE | 2019-02-18 09:10 | PCM.CONS.C ---
Problem List (1) HFrEF (heart failure with reduced ejection fraction) Status: Acute Qualifiers: Heart failure chronicity: acute Qualified Code(s): I50.21 - Acute systolic (congestive) heart failure (2) NSTEMI (non-ST elevated myocardial infarction) Status: Acute (3) Acute on chronic systolic (congestive) heart failure Status: Chronic (4) H/O coronary artery bypass surgery Status: Chronic Comment: CABG X 3: VILLEDA-LAD, SVG-LCx, SVG-RPDA 10/10/2003 (5) Ischemic cardiomyopathy Status: Chronic (6) Longstanding persistent atrial fibrillation Status: Chronic Reason for Consult Date of Consultation: 02/18/19 Reason for Consultation: CHF exacerbation History of Present Illness: The patient is a 78 year old M who is been seen by request of the hospitalist team. He is an individual who is an established patient of Dr. Higgins. He presented yesterday with complaints of worsening shortness of breath. This happened approximately a week or 2 ago. He stated that he had a trip to [place] and caught a cold, with symptoms such as sore throat, mild cough, productive of clear sputum. Subsequently, he started having issues with urinary incontinence therefore he cut back on his Lasix, since then, he noted worsening dyspnea, initially at moderate and then at mild physical exertion and subsequently at rest; he reports no orthopnea or paroxysmal nocturnal dyspnea. His past cardiac history significant for remote coronary artery bypass surgery, chronic atrial fibrillation on Eliquis, history of moderate ischemic cardiomyopathy with estimated left ventricular ejection fraction in the range of 40%. The patient was started on IV Lasix. Echocardiogram was ordered by primary services and was just performed. Pertinent laboratory data include substantially elevated BNP and borderline elevation of troponins. ECG upon presentation demonstrated atrial fibrillation with rapid ventricular response with premature ventricular contractions and nonspecific ST/T wave abnormalities in leads V4 through V6. Old Q waves are present in inferior leads. [] Past Medical History Allergies/Adverse Reactions: Allergies hydrocodone [From Vicodin] Allergy (Severe, Verified 02/17/19 19:35) Rash aspirin Allergy (Intermediate, Verified 02/17/19 17:22) Swelling around eyes pseudoephedrine [From Sudafed] Adverse Reaction (Severe, Verified 02/17/19 17:22) Myalgias & flu like symptoms simvastatin [From Zocor] Adverse Reaction (Severe, Verified 02/17/19 17:22) Myalgias Sulfa (Sulfonamide Antibiotics) Adverse Reaction (Mild, Verified 02/17/19 17:22) Severe Pain in joints Home Medications: Ambulatory Orders Medication Instructions Recorded Finasteride [Proscar] 5 mg PO QHS 04/18/15 Bethanechol Chloride [Urecholine] 50 mg PO BID 12/08/16 colchicine 0.6 mg tablet 0.6 mg PO QODAY tab 01/13/18 apixaban 2.5 mg tablet 2.5 mg PO BID #180 tab 01/31/19 furosemide 40 mg tablet 40 mg PO BID #180 tab 01/31/19 Allopurinol 300 mg PO DAILY 02/17/19 Calcitriol 0.25 mcg PO QHS 02/17/19 Calcitriol 0.5 mcg PO DAILY 02/17/19 Diltiazem HCl [Diltiazem 24Hr ER 180 mg PO Q12 02/17/19 (Cd)] Doxazosin Mesylate [Cardura Xl] 4 mg PO QHS 02/17/19 Ergocalciferol [Vitamin D] 50,000 unit PO WE 02/17/19 Metoprolol Succinate [Toprol Xl] 100 mg PO DAILY 02/17/19 Potassium Chloride 10 meq PO DAILY 02/17/19 Past Medical History (Chronic Problems): Chronic Problems (Last Updated 02/18/19 @ 08:31 by Radhames Quach MD) Atherosclerosis of [place] coronary artery of [place] heart without angina pectoris (Chronic) CABG X 3: VILLEDA-LAD, SVG-LCx, SVG-RPDA 10/10/2003 H/O coronary artery bypass surgery (Chronic 10/10/03) CABG X 3: VILLEDA-LAD, SVG-LCx, SVG-RPDA 10/10/2003 Old inferior wall myocardial infarction (Chronic) Ischemic cardiomyopathy (Chronic) Longstanding persistent atrial fibrillation (Chronic) Acute on chronic systolic (congestive) heart failure (Chronic) CVA (cerebral vascular accident) (Chronic) lower left cerebellar hemisphere Essential (primary) hypertension (Chronic) Hyperlipidemia (Chronic) Surgical History: coronary bypass surgery, herniorrhaphy, - - Fractures Psychiatric History: No pertinent psych hx - *Family History Maternal Family History: Family History (Last Reviewed 02/17/19 @ 19:39 by Sreekanth Bunn DO) Father Sudden cardiac Sister Heart disease Sudden cardiac Father Sudden cardiac History Items: No pertinent history Paternal Family History: Family History (Last Reviewed 02/17/19 @ 19:39 by Sreekanth Bunn DO) Father Sudden cardiac Sister Heart disease Sudden cardiac Father Sudden cardiac History Items: No pertinent history Smoking Status: Never smoker Tobacco Use: Cigarettes, Cigars Review of Systems - Review of Systems General: Denies: Fever, Night Sweats, Fatigue Cardiovascular: Denies: Chest Discomfort, Orthopnea, PND, Peripheral Edema, Palpitations, Lightheadedness, Dizziness, Near Syncope, Syncope Respiratory: Reports: Cough, Sputum Production Gastrointestinal: Denies: Hematemesis, Hematochezia, Melena Genitourinary: Reports: Incontinence Skin: Denies: Rash Objective: Vital Signs Temp Pulse Resp BP Pulse Ox 97.6 F L 98 16 120/55 L 91 02/18/19 08:18 02/18/19 08:18 02/18/19 08:18 02/18/19 08:18 02/18/19 08:45 Oxygen Flow Rate (L/min) 3 Oxygen Delivery Method Nasal Cannula Weight: 105.5 kg Body Mass Index (BMI) 37.5 Finger Stick Blood Glucose 143 Intake and Output for Last 24 Hours 02/16/19 02/17/19 02/18/19 23:59 23:59 23:59 Intake Total 220 / 220 Output Total 550 / 550 400 / 400 Balance -330 / -330 -400 / -400 General: Awake, Alert, Oriented x 3 HEENT: PERRL, EOMI, Sclera Non Icteric Neck: Supple, Good ROM, No Lymph Node Enlargement Lungs: Rales - Rolo Bases Cardiovascular: Irregular Rhythm Vascular: No Carotid Bruits, Normal Femoral Pulses, Normal Radial Pulses, Normal Dorsalis Pedal Pulse, Normal Posterior Tibial Pulses Abdomen: Bowel Sounds Present, Soft, Non Tender, No HSM, No Organomegaly, Obese Extremities: No Cyanosis, No Clubbing, No edema Neurological: No Focal Motor or Sensory Deficit 02/17/19 17:55: WBC 8.4, RBC 4.75, Hgb 14.1, Hct 44.7, MCV 94.1 H, MCH 29.7, MCHC 31.5 L, Plt Count 185, MPV 11.2, Immature Gran % (Auto) 0.800, Neut % (Auto) 75.5 H, Lymph % (Auto) 13.8 L, [place] % (Auto) 8.8, Eos % (Auto) 0.7, Baso % (Auto) 0.4, Absolute Neuts (auto) 6.4, Nucleated RBC % 0 02/17/19 17:55: PT 15.2 H, INR 1.2, APTT 31.3 02/17/19 17:55: Sodium 144, Potassium 3.7, Chloride 107, Carbon Dioxide 29.0, Anion Gap 8, BUN 52 H, Creatinine 1.91 H, Est GFR (MDRD) Af Amer 44 L, Est GFR (MDRD) Non-Af 37 L, BUN/Creatinine Ratio 27.2 H, Glucose 160 H, Calcium 8.8, Total Bilirubin 1.40 H, Direct Bilirubin 0.53 H, Troponin I 0.377 H 02/17/19 17:55: B-Natriuretic Peptide 1093.5 H 02/17/19 21:40: Troponin I 0.331 H 02/18/19 00:50: Hemoglobin A1c 7.6 H 02/18/19 00:50: Troponin I 0.343 H 02/18/19 06:32: Sodium 147 H, Potassium 3.4 L, Chloride 107, Carbon Dioxide 31.0, Anion Gap 9, BUN 50 H, Creatinine 1.60 H, Est GFR (MDRD) Af Amer 54 L, Est GFR (MDRD) Non-Af 45 L, BUN/Creatinine Ratio 31.2 H, Glucose 91, Calcium 8.3 L Rhythm: EKG: Above, new and old ECG reviewed personally ECHO: Stress Test: Cardiac Cath: PCI: CT Surgery: Holter monitor: EPS: PPM: CXR: Chest CT Scan: Assessment/Plan 1. Current presentation is consistent with acute on chronic congestive heart failure exacerbation. The most likely culprit is self discontinuation of diuretics; the last left ventricular ejection fraction assessment was in the range of 40%. Echocardiogram was just performed, will review. Patient appears hypervolemic by physical exam, therefore will need more diuresis. Will escalate dose of Lasix. 2. History of chronic atrial fibrillation. Ventricular response rate appears to be leniently controlled. Rate controlling agent adjustment will be based upon noninvasive assessment of left ventricular ejection fraction. On anticoagulation with Eliquis 3. History of coronary artery disease. No evidence of acute coronary syndrome. Troponin elevation is just borderline in the setting of acute CHF exacerbation. Adjustment of beta blockers may be necessary based on the echocardiogram result 4. History of COPD. The patient is on home oxygen. Seemingly there is issues with chronic hypoxemia. 5. Chronic renal insufficiency. A consideration may be given for small dose DALE inhibitor's under strict surveillance of creatinine clearance. Code Visit Inpatient E&M: 62654 Init Hosp L3
[2019-02-18] MEDS: Glucerna Shake 120 ML LIQUID 60 ML PO ×3 (09:59→17:27)
[2019-02-18] MEDS: Metoprolol(XL)Succ 100 MG Tablet PO (10:00)
[2019-02-18] MEDS: dilTIAZem CD 180 MG Capsule PO (10:00)
[2019-02-18] MEDS: Allopurinol 300 MG Tablet PO (10:00)
[2019-02-18] MEDS: BETHANECHOL CHLORIDE 25 MG TABLET 50 MG PO ×2 (10:00→21:27)
[2019-02-18] MEDS: Furosemide 100 MG/10 ML Vial 60 MG IV ×2 (10:00→17:29)
[2019-02-18] MEDS: APIXABAN 2.5 MG TABLET PO ×2 (10:00→21:27)
[2019-02-18 11:36] LABS: Bedside Glucose 169 mg/dL (70-110)
[2019-02-18] MEDS: Albuterol 2.5 MG/3 ML VIAL.NEB. INHALATION ×2 (13:23→18:58)
--- NOTE | 2019-02-18 14:27 | CM.UR ---
RN CM Assessment Introduced role of RN CM to patient. Patient is alert and able to participate in RN CM Assessment. Care providers, pharmacy, and demographics verified. Anyi Fair at bedside. Presentation: Shortness of breath Admit Dx: CHF Re-Admit: No Barriers/Issues: Motivation PCP: Neil Specialists: Gin, arthritis clinic, urology Preferred [facility]acy: [facility] Insurance: [employer], [employer] Benefit: yes denies problems paying for meds. LNOK: Anyi Dewitt, daughter LW/HPOA: States he as one somewhere but no idea where. No interest in doing a new one at this time. Living Arrangements: Lives alone in a house with 5 cats. ADL?s: Independent Transportation: drives self DME: o2 from [employer], walker, cane, grab bars. DME co: If needs something new--wants a company closer. HHC: states yes several times. States doesn't come to often when they do. SNF: [facility] Goal: Home. DC PLAN: TBD. Michelet Cuevas RN, CCM.
[2019-02-18 16:46] LABS: Bedside Glucose 183 mg/dL (70-110)
[2019-02-18] MEDS: Insulin Lispro 100 UNIT/ML INSULN.PEN SC (17:36)
[2019-02-18] MEDS: Finasteride 5 MG Tablet PO (21:27)
[2019-02-18] MEDS: Calcitriol 0.25 MCG Capsule PO (21:27)
[2019-02-18] MEDS: Doxazosin 4 MG Tablet PO (21:27)
[2019-02-18 22:10] LABS: Bedside Glucose 176 mg/dL (70-110)
[2019-02-19] VITALS (17 sets, daily range): BP systolic 107–135; BP diastolic 52–65; PULSE 55–116; RESP 16–18; TEMP 36.4–36.7; O2SAT 92–95
[2019-02-19] MEDS: Albuterol 2.5 MG/3 ML VIAL.NEB. INHALATION ×2 (00:26→07:09)
[2019-02-19] MEDS: guaiFENesin 10 ML UDC (200MG/10ML) 20 ML PO ×2 (02:26→21:15)
[2019-02-19 03:28] LABS: Red Blood Cells-Urine 0 SEEN /hpf (0-5); White Blood Cells 0 SEEN /hpf (0-5)
[2019-02-19 03:29] LABS: Color, Urine Yellow (Yellow); Glucose, Dipstick Normal (Normal); Ketone-Dipstick Negative (Negative); Leukocyte Esterase-Dipstick Negative /ul (Negative); Nitrite-Dipstick Negative (Negative); Occult Blood-Urine Negative /ul (Negative); Protein-Dipstick Negative (Negative); Specific Gravity, Urine 1.015 (1.002-1.030); Urine Bilirubin Dipstick Negative (Negative); Urine Clarity Clear (Clear); Urine Urobilinogen Normal (Normal)
[2019-02-19 03:49] LABS: Bacteria RARE /hpf (None Seen); Hyaline Cast 0-5 SEEN /lpf (0-5); Mucous, Urine RARE /hpf (<or=2+); Squamous Epithelial Cells - UA 0-5 SEEN /hpf (0-5)
[2019-02-19 06:06] LABS: Absolute Lymphocyte Count 1.19 X10^3/uL (0.83-4.51); Absolute Neutrophil Count 4.5 X10^3/uL (2.0-7.7); Basophil# 0.06 X10^3/uL; Basophil% 0.9 % (0-1); Eosinophil# 0.17 X10^3/uL; Eosinophils% 2.5 % (0-5); Hematocrit 41.3 % (40-54); Lymphocyte # 1.19 X10^3/ul (4.0); Lymphocyte % 17.6 % (19-41); Mean Corp Hgb Conc 31.5 g/dL (32-36); Mean Corpuscular Hgb 29.9 pg (27.0-32.0); Mean Corpuscular Volume 94.9 fL (80-94); Mean Platelet Vol. 10.8 fl (6.2-12.0); Monocyte# 0.73 X10^3/uL; Monocyte% 10.8 % (0-10); NRBC Flagged by Analyzer 0 % (0-5); Neutrophil # 4.49 X10^3/uL (2.7-7.7); Neutrophil % 66.6 % (47-70); Platelet Count 189 K/mm3 (150-450); RBC Distribution Width CV 13.2 % (11.6-14.6); RBC Distribution Width SD 46.4 fl (35.1-43.9); Red Blood Count 4.35 M/mm3 (4.6-6.2); White Blood Count 6.8 K/mm3 (4.4-11.0)
[2019-02-19 06:22] LABS: Anion Gap 8 (5-15); BUN 39 mg/dL (7-18); BUN/Creat Ratio 23.6 RATIO (10-20); Calcium,Total 8.5 mg/dL (8.5-10.1); Chloride 106 mmol/L (98-107); Creatinine, Serum 1.65 mg/dL (0.70-1.30); EST Glomerular Filtration Rate 43 mL/min (>60); Est Glom Filt Rate - Afr Amer 52 mL/min (>60); Estimated Creatinine Clearance 33.83 ml/min; Glucose 111 mg/dL (74-106); Potassium 3.1 mmol/L (3.5-5.1); Sodium Level 148 mmol/L (136-145)
[2019-02-19 06:51] LABS: Bedside Glucose 111 mg/dL (70-110)
--- NOTE | 2019-02-19 08:40 | RAD_ITS ---
STUDY: X-RAY CHEST REASON FOR EXAM: Male, 78 years old. Shortness of breath. TECHNIQUE: Single AP portable view of the chest. COMPARISON: 02/17/2017. FINDINGS: There are hypoventilatory changes in the right lung base. The markings are less prominent than the previous examination. There is no demonstrated pleural abnormality. Sternal cerclage wires and vascular clips are present from a prior sternotomy and coronary artery bypass graft procedure (CABG). The cardiac silhouette is borderline. Normal mediastinum and kath. Normal visualized pulmonary arteries. There is atherosclerotic tortuosity of the aortic arch and descending thoracic aorta. The bony structures are unchanged. There is no demonstrated abnormality of the visualized soft tissue structures of the upper abdomen. RAD/Chest 1 View (Portable) IMPRESSION: Improved pulmonary venous congestion. Mild hypoventilatory/atelectatic changes in the right lung base. Electronically Signed: Ole Poon MD at 11:07 EST Tel , Service support ,
--- NOTE | 2019-02-19 08:41 | PCM.PROGNOTE ---
Patient Problems: Active and Suspected Problems (Last Updated 02/18/19 @ 08:31 by Radhames Quach MD) HFrEF (heart failure with reduced ejection fraction) (Acute) NSTEMI (non-ST elevated myocardial infarction) (Acute) Subjective: Chief complaint: Follow-up after admission for acute on chronic systolic CHF. Patient seen and examined. No acute events overnight. He mentioned that his breathing almost the same, no significant improvement. Still complaining of cough with sputum as well as congestion and today, he is having audible wheezing. He is afebrile, blood pressure and heart rate are stable, pulse ox is 95% on 3 L. - Physical Exam Vitals/I&O's: Vital Signs Temp Pulse Resp BP Pulse Ox 98.0 F 97 16 107/52 L 95 02/19/19 02:30 02/19/19 07:13 02/19/19 07:09 02/19/19 02:30 02/19/19 07:09 Oxygen Flow Rate (L/min) 3 Oxygen Delivery Method Nasal Cannula Weight: 216 lb 7.903 oz Body Mass Index (BMI) 37.5 Finger Stick Blood Glucose 143 Intake and Output for Last 24 Hours 02/17/19 02/18/19 02/19/19 23:59 23:59 23:59 Intake Total 220 / 220 940 / 940 100 / 100 Output Total 550 / 550 1600 / 1600 300 / 300 Balance -330 / -330 -660 / -660 -200 / -200 General: Alert, Oriented x3, Cooperative, - - Mildly short of breath. HEENT: Atraumatic, PERRLA, EOMI, Normocephalic Oral: Moist Mucosa, No Gingival or Mucosal Lesions/ Ulcerations Neck: Supple, No JVD, Negative Carotid Bruits, Trachea Midline, Thyroid Normal Size and Texture Lungs: Diminished, Rales, Wheezes, - - Decreased breath sounds bilateral, bilateral expiratory wheezes, scattered rhonchi. Cardiovascular: Normal S1, Normal S2, PMI Normal, Irregular Rate Abdomen: Bowel Sounds Present, Soft, Non Tender, Non-Distended, No Hepato-splenomegaly, Obese Extremities: No clubbing, No cyanosis, No edema Skin: No rashes, No breakdown Lymphatic: No Cervical, Supraclavicular, or Inguinal Adenopathy Neurological: Cranial nerves II-XII grossly intact, Neuro grossly intact Psych/Mental Status: Normal Affect, Appropriate Microbiology Past 72 Hours 02/18/19 08:44 Mucosa - Nasopharyngeal Respiratory Panel (PCR) - Final Laboratory Results 02/18/19 11:26: POC Glucose 169 H 02/18/19 16:40: POC Glucose 183 H 02/18/19 21:31: POC Glucose 176 H 02/19/19 03:21: Urine Color Yellow, Urine Clarity Clear, Urine pH 5.0, Ur Specific [place] 1.015, Urine Protein Negative, Urine Glucose (UA) Normal, Urine Ketones Negative, Urine Occult Blood Negative, Urine Nitrite Negative, Urine Bilirubin Negative, Urine Urobilinogen Normal, Ur Leukocyte Esterase Negative, Urine RBC 0 SEEN, Urine WBC 0 SEEN, Ur Squamous Epith Cells 0-5 SEEN, Urine Bacteria RARE, Hyaline Casts 0-5 SEEN, Urine Mucus RARE 02/19/19 05:37: WBC 6.8, RBC 4.35 L, Hgb 13.0, Hct 41.3, MCV 94.9 H, MCH 29.9, MCHC 31.5 L, RDW Std Deviation 46.4 H, RDW Coeff of Francis 13.2, Plt Count 189, MPV 10.8, Immature Gran % (Auto) 1.600 H, Neut % (Auto) 66.6, Lymph % (Auto) 17.6 L, [place] % (Auto) 10.8 H, Eos % (Auto) 2.5, Baso % (Auto) 0.9, Absolute Neuts (auto) 4.5, Absolute Lymphs (auto) 1.19, Nucleated RBC % 0 02/19/19 05:37: Sodium 148 H, Potassium 3.1 L, Chloride 106, Carbon Dioxide 34.0 H, Anion Gap 8, BUN 39 H, Creatinine 1.65 H, Estim Creat Clear Calc 33.83, Est GFR (MDRD) Af Amer 52 L, Est GFR (MDRD) Non-Af 43 L, BUN/Creatinine Ratio 23.6 H, Glucose 111 H, Calcium 8.5 02/19/19 06:43: POC Glucose 111 H Current Medications Acetaminophen (Tylenol) 650 mg PO Q6H PRN PRN PRN Reason: Pain Score 1-3/Temp > 100.7 F Albuterol Sulfate (Ventolin Aerosols) 2.5 mg INHALATION Q4H PRN PRN PRN Reason: Shortness of breath, wheezing Albuterol/Ipratropium (Duoneb) 3 ml INHALATION Q4H.RT CELINA Allopurinol (Zyloprim) 300 mg PO DAILYCM [facility] Last Admin: 02/18/19 10:00 Dose: 300 mg Documented by: Apixaban (Eliquis) 2.5 mg PO BID [facility] Last Admin: 02/18/19 21:27 Dose: 2.5 mg Documented by: Bethanechol Chloride (Bethanechol Chloride) 50 mg PO BID [facility] Last Admin: 02/18/19 21:27 Dose: 50 mg Documented by: Calcitriol (Rocaltrol) 0.25 mcg PO QHS [facility] Last Admin: 02/18/19 21:27 Dose: 0.25 mcg Documented by: Colchicine (Colchicine) 0.6 mg PO DAILY PRN PRN PRN Reason: gout flare Dextrose (D50w Syringe) 0 gm IV X1 PRN; Protocol PRN Reason: Hypoglycemia Doxazosin Mesylate (Cardura) 4 mg PO QHS [facility] Last Admin: 02/18/19 21:27 Dose: 4 mg Documented by: Ergocalciferol (Vitamin D) 50,000 unit PO WE [facility] Finasteride (Proscar) 5 mg PO DAILY@2200 [facility] Last Admin: 02/18/19 21:27 Dose: 5 mg Documented by: Furosemide (Lasix) 60 mg IV BID@1000,1800 [facility] Last Admin: 02/18/19 17:29 Dose: 60 mg Documented by: Glucagon () 1 mg IM .X1 PRN PRN Reason: Hypoglycemia Guaifenesin (Robitussin) 20 ml PO Q4H PRN PRN PRN Reason: COUGH Last Admin: 02/19/19 02:26 Dose: 20 ml Documented by: Insulin Human Lispro (Humalog Kwikpen (Bkc)) 0 unit SC TIDAC [facility]; Protocol Last Admin: 02/19/19 06:48 Dose: Not Given Documented by: Lisinopril (Zestril) 2.5 mg PO DAILY [facility] Melatonin (Melatonin) 3 mg PO QHS PRN PRN PRN Reason: INSOMNIA Metoprolol Succinate (Toprol Xl (Beta Fiordaliza)) 100 mg PO DAILY [facility] Last Admin: 02/18/19 10:00 Dose: 100 mg Documented by: Nutritional Formula (Lactose Free) (Glucerna Shake) 60 ml PO TIDCM [facility] Last Admin: 02/18/19 17:27 Dose: 60 ml Documented by: Ondansetron HCl (Zofran) 4 mg IV Q8H PRN PRN PRN Reason: NAUSEA/VOMITING Oxycodone HCl (Oxyir) 5 mg PO Q4H PRN PRN PRN Reason: Pain Score 4-10/10 Potassium Chloride (K-Dur) 20 meq PO BIDCM [facility] Medical Necessity - Tobacco Use Smoking Status: Never smoker Tobacco Use: Cigarettes, Cigars Assessment/Plan All Active Problems (Last Updated 02/18/19 @ 08:31 by Radhames Quach MD) HFrEF (heart failure with reduced ejection fraction) (Acute) NSTEMI (non-ST elevated myocardial infarction) (Acute) This is a 78 years old male patient presented to the emergency room because of worsening shortness of breath, also complained of mild sinus congestion, rhinorrhea, cough and sore throat and he was admitted for acute on chronic systolic CHF. #1 acute on chronic systolic CHF: He is on IV Lasix, on metoprolol but he is not on DALE inhibitors because of CKD. He has a good urine output but patient reported no significant improvement. He is still having cough with phlegm and wheezing. Respiratory panel for viruses were negative. EKG revealed A. fib, ST segment depression in leads V4, V5 and V6 which are chronic, no acute ischemic changes. Troponin is borderline elevated and flat. 2D echocardiogram revealed ejection fraction of 30 to 35%, other findings reviewed. Cardiology on the case. Plan: Repeat chest x-ray, sputum culture, start DuoNeb every 4 hours, albuterol as needed, continue IV Lasix, replace potassium, repeat BMP tomorrow morning. #2 probable non-ST elevation [place]: Secondary to #1. Troponin is borderline elevated and flat. Patient having chest pain. EKG showed no acute ischemic changes. Echocardiogram reviewed as above. Continue Eliquis and metoprolol. #3 CAD status post CABG: Plan as above, continue IV diuresis, continue Eliquis, metoprolol. #4 chronic atrial fibrillation: Rate is controlled, continue Cardizem and metoprolol for rate control, continue Eliquis for anticoagulation. #5 hypertension: Blood pressure stable, continue Lasix, metoprolol. #6 benign prostatic hypertrophy: Continue Cardura and Proscar. #7 stage III chronic kidney disease: Baseline creatinine has been around 1.3 to 1.8 mg/dL. Today's creatinine is 1.65, improved compared to yesterday. #8 chronic respiratory failure: On home oxygen mainly at night at 2 L. At this time, he is on 3 L continuously. Plan as above. #9 DVT prophylaxis: Continue Eliquis. This note was generated with [employer] dictation software. It may contain incorrect words, spelling, and punctuation that were not noted in checking the note before signing. Code Visit Inpatient E&M: 48459 Subs Hosp L2
[2019-02-19] MEDS: Glucerna Shake 120 ML LIQUID 60 ML PO ×2 (09:51→11:44)
[2019-02-19] MEDS: BETHANECHOL CHLORIDE 25 MG TABLET 50 MG PO ×2 (09:52→21:15)
[2019-02-19] MEDS: Allopurinol 300 MG Tablet PO (09:52)
[2019-02-19] MEDS: APIXABAN 2.5 MG TABLET PO ×2 (09:53→21:15)
[2019-02-19] MEDS: Metoprolol(XL)Succ 100 MG Tablet PO (09:53)
[2019-02-19] MEDS: Furosemide 100 MG/10 ML Vial 60 MG IV ×2 (09:53→18:11)
--- NOTE | 2019-02-19 10:55 | PN.CARD_ITS ---
Subjectve: The patient states that he is doing better as far as shortness of breath, even though slightly orthopneic. Echocardiogram was performed, which showed decline in the left ventricular ejection fraction, which is now in the range of 30 to 35%. Low-dose lisinopril was initiated. Creatinine with borderline uptrend today. Objective: Vital Signs Temp Pulse Resp BP Pulse Ox 97.5 F L 87 18 119/64 93 02/19/19 08:30 02/19/19 09:53 02/19/19 08:30 02/19/19 09:53 02/19/19 08:30 Oxygen Flow Rate (L/min) 3 Oxygen Delivery Method Nasal Cannula Weight: 98.2 kg Body Mass Index (BMI) 37.5 Finger Stick Blood Glucose 143 Intake and Output for Last 24 Hours 02/17/19 02/18/19 02/19/19 23:59 23:59 23:59 Intake Total 220 / 220 940 / 940 100 / 100 Output Total 550 / 550 1600 / 1600 300 / 300 Balance -330 / -330 -660 / -660 -200 / -200 General: Awake, Alert, Oriented x 3 HEENT: PERRL, EOMI, Sclera Non Icteric Neck: Supple, Good ROM, No Lymph Node Enlargement Lungs: Rales - Rolo Bases Cardiovascular: Irregular Rhythm Vascular: No Carotid Bruits, Normal Femoral Pulses, Normal Radial Pulses, Normal Dorsalis Pedal Pulse, Normal Posterior Tibial Pulses Abdomen: Bowel Sounds Present, Soft, Non Tender, No HSM, No Organomegaly Extremities: No Cyanosis, No Clubbing, No edema, Trace RLE Edema, Trace LLE Edema Neurological: No Focal Motor or Sensory Deficit 02/19/19 03:21: Urine Color Yellow, Urine Clarity Clear, Urine pH 5.0, Ur Specific [place] 1.015, Urine Protein Negative, Urine Glucose (UA) Normal, Urine Ketones Negative, Urine Occult Blood Negative, Urine Nitrite Negative, Urine Rolo irubin Negative, Urine Urobilinogen Normal, Ur Leukocyte Esterase Negative, Urine RBC 0 SEEN, Urine WBC 0 SEEN 02/19/19 05:37: WBC 6.8, RBC 4.35 L, Hgb 13.0, Hct 41.3, MCV 94.9 H, MCH 29.9, MCHC 31.5 L, Plt Count 189, MPV 10.8, Immature Gran % (Auto) 1.600 H, Neut % (Auto) 66.6, Lymph % (Auto) 17.6 L, [place] % (Auto) 10.8 H, Eos % (Auto) 2.5, Baso % (Auto) 0.9, Absolute Neuts (auto) 4.5, Nucleated RBC % 0 02/19/19 05:37: Sodium 148 H, Potassium 3.1 L, Chloride 106, Carbon Dioxide 34.0 H, Anion Gap 8, BUN 39 H, Creatinine 1.65 H, Est GFR (MDRD) Af Amer 52 L, Est GFR (MDRD) Non-Af 43 L, BUN/Creatinine Ratio 23.6 H, Glucose 111 H, Calcium 8.5 Rhythm: EKG: ECHO: Reviewed personally Stress Test: Cardiac Cath: PCI: CT Surgery: Holter monitor: EPS: PPM: CXR: Chest CT Scan: Medical Necessity - Tobacco Use Smoking Status: Never smoker Tobacco Use: Cigarettes, Cigars Assessment/Plan 1. Acute on chronic congestive heart failure exacerbation. Echocardiogram showed evidence of decline in the left ventricular ejection fraction. The patient still appears slightly hypervolemic by physical exam, therefore needs more diuresis. Low-dose of lisinopril was initiated, monitor creatinine, if trends up, lisinopril may be stopped and the patient to be placed on hydralazine and nitrates for afterload reduction. Continue Toprol-XL. Possible culprits for depressed left ventricular ejection fraction might be progression of coronary atherosclerosis, or simply rate related cardiomyopathy in the setting of atrial fibrillation with suboptimally controlled ventricular response. Consider invasive assessment down the road. 2. History of chronic atrial fibrillation. Ventricular response rate appears to be leniently controlled, still; diltiazem was stopped, due to depressed left ventricular ejection fraction. I believe we may increase Toprol-XL to 200 mg once a day to achieve better rate control. On anticoagulation with Eliquis 3. History of coronary artery disease. No evidence of acute coronary syndrome. Troponin elevation is just borderline in the setting of acute CHF exacerbation. Adjustment of beta blockers. 4. History of COPD. The patient is on home oxygen. Seemingly there is issues with chronic hypoxemia. 5. Chronic renal insufficiency. We will continue DALE inhibitors for now, monitor renal profile. Code Visit Inpatient E&M: [id number] [facility] Hosp L3
[2019-02-19] MEDS: Ipratropium/Albuterol Sulfate 3 ML AMPUL.NEB INHALATION ×4 (11:02→22:41)
[2019-02-19] MEDS: Lisinopril 2.5 MG Tablet PO (11:45)
[2019-02-19 11:46] LABS: Bedside Glucose 201 mg/dL (70-110)
--- NOTE | 2019-02-19 13:04 | NURSING ---
Patient's daughter is here to see patient. Reports to RN that patient is a hoarder and his home is very unsanitary. Patient has 5 cats at home with several litter pans. She states that there are insects in the home, but didn't elaborate on what kind. Daughter would like to speak with CM about assisting with discharge due to living conditions. RN placed CM consult regarding same.
[2019-02-19 17:06] LABS: Bedside Glucose 126 mg/dL (70-110)
[2019-02-19] MEDS: Calcitriol 0.25 MCG Capsule PO (21:15)
[2019-02-19] MEDS: Finasteride 5 MG Tablet PO (21:15)
[2019-02-19] MEDS: Doxazosin 4 MG Tablet PO (21:15)
[2019-02-19] MEDS: MELATONIN 3 MG TABLET PO (21:15)
[2019-02-19 21:55] LABS: Bedside Glucose 162 mg/dL (70-110)
[2019-02-20] VITALS (37 sets, daily range): BP systolic 96–128; BP diastolic 36–91; PULSE 64–144; RESP 10–26; TEMP 36.3–36.7; O2SAT 92–98
[2019-02-20] MEDS: Metoprolol(XL)Succ 200 MG Tablet PO ×2 (02:52→11:01)
[2019-02-20] MEDS: dilTIAZem 25 MG/5 ML Vial 20 MG IV BOLUS (05:39)
[2019-02-20] MEDS: 0.9% Saline Lock 10 ML Syringe IV ×3 (05:40→17:31)
[2019-02-20 06:42] LABS: Anion Gap 8 (5-15); BUN 27 mg/dL (7-18); BUN/Creat Ratio 17.5 RATIO (10-20); Calcium,Total 8.6 mg/dL (8.5-10.1); Chloride 105 mmol/L (98-107); Creatinine, Serum 1.54 mg/dL (0.70-1.30); EST Glomerular Filtration Rate 47 mL/min (>60); Est Glom Filt Rate - Afr Amer 57 mL/min (>60); Estimated Creatinine Clearance 36.25 ml/min; Glucose 111 mg/dL (74-106); Potassium 3.2 mmol/L (3.5-5.1); Sodium Level 147 mmol/L (136-145)
[2019-02-20 06:50] LABS: Bedside Glucose 109 mg/dL (70-110)
[2019-02-20] MEDS: Ipratropium/Albuterol Sulfate 3 ML AMPUL.NEB INHALATION ×5 (07:09→23:40)
--- NOTE | 2019-02-20 08:58 | PCM.PN.HOSP ---
Patient Problems: Active and Suspected Problems (Last Updated 02/18/19 @ 08:31 by Radhames Quach MD) HFrEF (heart failure with reduced ejection fraction) (Acute) NSTEMI (non-ST elevated myocardial infarction) (Acute) Subjective: Patient gets short of breath on minimal exertion. Denies chest pain. Mild lower extremity edema. I was asked to talk to the daughter but when he went to the patient's room after 10 minutes she has left. Vitals/I&O's: Vital Signs Temp Pulse Resp BP Pulse Ox 97.8 F 103 H 16 117/73 95 02/20/19 04:30 02/20/19 07:03 02/20/19 07:03 02/20/19 07:00 02/20/19 07:03 Oxygen Flow Rate (L/min) 2 Oxygen Delivery Method Nasal Cannula Weight: 216 lb 0.848 oz Body Mass Index (BMI) 37.5 Finger Stick Blood Glucose 143 Intake and Output for Last 24 Hours 02/18/19 02/19/19 02/20/19 23:59 23:59 23:59 Intake Total 940 / 940 1200 / 1200 5.83 / 5.83 Output Total 1600 / 1600 2049 / 2049 75 / 75 Balance -660 / -660 -850 / -850 -69.17 / -69.17 General: Alert, Oriented x3, Cooperative HEENT: Atraumatic, PERRLA, EOMI, Normocephalic Neck: Supple, No JVD, Negative Carotid Bruits Lungs: Diminished - Air entry is diffusely diminished., Rhonchi, Short of Breath - On exertion Cardiovascular: Normal S1, Normal S2, No murmurs, Irregular Rate, Murmur - Systolic murmur present over aortic area and left lower sternal border. Abdomen: Bowel Sounds Present, Soft, Non Tender, Non-Distended Extremities: Capillary Refill Less than 3 Seconds, Edema Skin: No rashes, No breakdown Musculoskeletal: No Tenderness to Palpation of Joints or Extremities Neurological: Cranial nerves II-XII grossly intact Psych/Mental Status: Normal Affect, Appropriate Microbiology Past 72 Hours 02/18/19 08:44 Mucosa - Nasopharyngeal Respiratory Panel (PCR) - Final Laboratory Results 02/19/19 11:33: POC Glucose 201 H 02/19/19 16:58: POC Glucose 126 H 02/19/19 21:20: POC Glucose 162 H 02/20/19 05:25: Sodium 147 H, Potassium 3.2 L, Chloride 105, Carbon Dioxide 34.0 H, Anion Gap 8, BUN 27 H, Creatinine 1.54 H, Estim Creat Clear Calc 36.25, Est GFR (MDRD) Af Amer 57 L, Est GFR (MDRD) Non-Af 47 L, BUN/Creatinine Ratio 17.5, Glucose 111 H, Calcium 8.6 02/20/19 05:25: Magnesium Pending 02/20/19 06:39: POC Glucose 109 Current Medications Acetaminophen (Tylenol) 650 mg PO Q6H PRN PRN PRN Reason: Pain Score 1-3/Temp > 100.7 F Albuterol Sulfate (Ventolin Aerosols) 2.5 mg INHALATION Q4H PRN PRN PRN Reason: Shortness of breath, wheezing Albuterol/Ipratropium (Duoneb) 3 ml INHALATION Q4H.RT [facility] Last Admin: 02/20/19 07:09 Dose: 3 ml Documented by: Allopurinol (Zyloprim) 300 mg PO DAILYCM [facility] Last Admin: 02/19/19 09:52 Dose: 300 mg Documented by: Apixaban (Eliquis) 2.5 mg PO BID [facility] Last Admin: 02/19/19 21:15 Dose: 2.5 mg Documented by: Bethanechol Chloride (Bethanechol Chloride) 50 mg PO BID [facility] Last Admin: 02/19/19 21:15 Dose: 50 mg Documented by: Calcitriol (Rocaltrol) 0.25 mcg PO QHS [facility] Last Admin: 02/19/19 21:15 Dose: 0.25 mcg Documented by: Colchicine (Colchicine) 0.6 mg PO DAILY PRN PRN PRN Reason: gout flare Dextrose (D50w Syringe) 0 gm IV X1 PRN; Protocol PRN Reason: Hypoglycemia Doxazosin Mesylate (Cardura) 4 mg PO QHS [facility] Last Admin: 02/19/19 21:15 Dose: 4 mg Documented by: Ergocalciferol (Vitamin D) 50,000 unit PO WE [facility] Finasteride (Proscar) 5 mg PO DAILY@2200 [facility] Last Admin: 02/19/19 21:15 Dose: 5 mg Documented by: Furosemide (Lasix) 60 mg IV BID@1000,1800 [facility] Last Admin: 02/19/19 18:11 Dose: 60 mg Documented by: Glucagon () 1 mg IM .X1 PRN PRN Reason: Hypoglycemia Guaifenesin (Robitussin) 20 ml PO Q4H PRN PRN PRN Reason: COUGH Last Admin: 02/19/19 21:15 Dose: 20 ml Documented by: Diltiazem HCl 125 mg/ Dextrose 125 mls @ 5 mls/hr IV .Q25H [facility]; Protocol Last Titration: 02/20/19 07:00 Dose: 5 mg/hr, 5 mls/hr Documented by: Insulin Human Lispro (Humalog Kwikpen (Bkc)) 0 unit SC TIDAC [facility]; Protocol Last Admin: 02/20/19 06:45 Dose: Not Given Documented by: Lisinopril (Zestril) 2.5 mg PO DAILY [facility] Last Admin: 02/19/19 11:45 Dose: 2.5 mg Documented by: Melatonin (Melatonin) 3 mg PO QHS PRN PRN PRN Reason: INSOMNIA Last Admin: 02/19/19 21:15 Dose: 3 mg Documented by: Metoprolol Succinate (Toprol Xl (Beta Fiordaliza)) 200 mg PO DAILY [facility] Last Admin: 02/20/19 02:52 Dose: 200 mg Documented by: Nutritional Formula (Lactose Free) (Glucerna Shake) 60 ml PO TIDCM [facility] Last Admin: 02/19/19 18:10 Dose: Not Given Documented by: Ondansetron HCl (Zofran) 4 mg IV Q8H PRN PRN PRN Reason: NAUSEA/VOMITING Oxycodone HCl (Oxyir) 5 mg PO Q4H PRN PRN PRN Reason: Pain Score 4-10/10 Potassium Chloride (K-Dur) 20 meq PO BIDCM [facility] Last Admin: 02/19/19 18:10 Dose: 20 meq Documented by: Potassium Chloride (K-Dur) 40 meq PO Q3H [facility] Stop: 02/20/19 11:46 STROKE Vital Signs/Narrative: Vital Signs Pulse Resp BP BP Pulse Ox 02/20/19 07:03 103 H 16 95 02/20/19 07:00 84 16 117/73 95 02/20/19 06:52 95 02/20/19 06:45 100 18 112/57 L 98 02/20/19 06:30 112 H 16 109/60 02/20/19 06:15 97 16 122/73 H 95 02/20/19 06:05 116 H 16 112/59 L 96 02/20/19 05:50 120 H 02/20/19 05:36 144 H 20 H 125/71 H 96 Medical Necessity - Tobacco Use Smoking Status: Never smoker Tobacco Use: Cigarettes, Cigars Assessment/Plan All Active Problems (Last Updated 02/18/19 @ 08:31 by Radhames Quach MD) HFrEF (heart failure with reduced ejection fraction) (Acute) NSTEMI (non-ST elevated myocardial infarction) (Acute) This is a 78 years old male patient presented to the emergency room because of worsening shortness of breath, also complained of mild sinus congestion, rhinorrhea, cough and sore throat and he was admitted for acute on chronic systolic CHF. #1 acute on chronic systolic CHF: Patient is being admitted on PCU. Patient has good urine output. Patient feels improvement in shortness of breath and leg edema. Respiratory panel for viruses were negative. EKG revealed A. fib, ST segment depression in leads V4, V5 and V6 which are chronic, no acute ischemic changes. Troponin is borderline elevated and flat. 2D echocardiogram revealed ejection fraction of 30 to 35%. 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 On medical management. Lisinopril 2.5 mg daily. On hydralazine and isosorbide mononitrate. Recommended coronary invasive assessment in future when kidney function is stabilized and heart failure is optimized. #2 probable non-ST elevation [place]: Secondary to #1. Troponin is borderline elevated and flat. Patient having chest pain. EKG showed no acute ischemic changes. Continue Eliquis and metoprolol. #3 CAD status post CABG: continue IV diuresis, continue Eliquis, metoprolol. #4 chronic atrial fibrillation: Rate is controlled, continue Cardizem and metoprolol for rate control, continue Eliquis for anticoagulation. #5 hypertension: Blood pressure stable, continue Lasix, metoprolol. #6 benign prostatic hypertrophy: Continue Cardura and Proscar. #7 stage III chronic kidney disease with mild hypokalemia: Baseline creatinine has been around 1.3 to 1.8 mg/dL. BUN/creatinine shows slight improvement. Potassium replaced. #8 chronic respiratory failure: On home oxygen mainly at night at 2 L. Currently on 2 L #9 DVT prophylaxis: Continue Eliquis. Active Medications Acetaminophen (Tylenol) 650 mg PO Q6H PRN PRN PRN Reason: Pain Score 1-3/Temp > 100.7 F Albuterol Sulfate (Ventolin Aerosols) 2.5 mg INHALATION Q4H PRN PRN PRN Reason: Shortness of breath, wheezing Albuterol/Ipratropium (Duoneb) 3 ml INHALATION Q4H.RT [facility] Last Admin: 02/20/19 14:49 Dose: 3 ml Documented by: Allopurinol (Zyloprim) 300 mg PO DAILYCM [facility] Last Admin: 02/20/19 09:13 Dose: 300 mg Documented by: Apixaban (Eliquis) 2.5 mg PO BID [facility] Last Admin: 02/20/19 09:14 Dose: 2.5 mg Documented by: Bethanechol Chloride (Bethanechol Chloride) 50 mg PO BID [facility] Last Admin: 02/20/19 09:13 Dose: 50 mg Documented by: Calcitriol (Rocaltrol) 0.25 mcg PO QHS [facility] Last Admin: 02/19/19 21:15 Dose: 0.25 mcg Documented by: Colchicine (Colchicine) 0.6 mg PO DAILY PRN PRN PRN Reason: gout flare Dextrose (D50w Syringe) 0 gm IV X1 PRN; Protocol PRN Reason: Hypoglycemia Doxazosin Mesylate (Cardura) 4 mg PO QHS [facility] Last Admin: 02/19/19 21:15 Dose: 4 mg Documented by: Ergocalciferol (Vitamin D) 50,000 unit PO WE [facility] Finasteride (Proscar) 5 mg PO DAILY@2200 [facility] Last Admin: 02/19/19 21:15 Dose: 5 mg Documented by: Furosemide (Lasix) 60 mg IV BID@1000,1800 [facility] Last Admin: 02/20/19 17:31 Dose: 60 mg Documented by: Glucagon () 1 mg IM .X1 PRN PRN Reason: Hypoglycemia Guaifenesin (Robitussin) 20 ml PO Q4H PRN PRN PRN Reason: COUGH Last Admin: 02/19/19 21:15 Dose: 20 ml Documented by: Sodium Chloride () 250 mls @ 15 mls/hr IV .[id number] PRN PRN Reason: Saline Flush Insulin Human Lispro (Humalog Kwikpen (Bkc)) 0 unit SC TIDAC [facility]; Protocol Last Admin: 02/20/19 17:31 Dose: Not Given Documented by: Lisinopril (Zestril) 2.5 mg PO DAILY [facility] Last Admin: 02/20/19 11:01 Dose: Not Given Documented by: Melatonin (Melatonin) 3 mg PO QHS PRN PRN PRN Reason: INSOMNIA Last Admin: 02/19/19 21:15 Dose: 3 mg Documented by: Metoprolol Succinate (Toprol Xl (Beta Fiordaliza)) 200 mg PO DAILY [facility] Last Admin: 02/20/19 11:01 Dose: 200 mg Documented by: Nutritional Formula (Lactose Free) (Glucerna Shake) 60 ml PO TIDCM [facility] Last Admin: 02/20/19 17:31 Dose: Not Given Documented by: Ondansetron HCl (Zofran) 4 mg IV Q8H PRN PRN PRN Reason: NAUSEA/VOMITING Oxycodone HCl (Oxyir) 5 mg PO Q4H PRN PRN PRN Reason: Pain Score 4-10/10 Potassium Chloride (K-Dur) 20 meq PO BIDCM [facility] Last Admin: 02/20/19 17:31 Dose: 20 meq Documented by: Sodium Chloride () 10 - 40 ml IV UD PRN PRN Reason: SALINE FLUSH Last Admin: 02/20/19 17:31 Dose: 10 ml Documented by: Code Visit Inpatient E&M: 15298 Subs Hosp L2
[2019-02-20] MEDS: Glucerna Shake 120 ML LIQUID 60 ML PO ×2 (09:13→12:57)
[2019-02-20] MEDS: Allopurinol 300 MG Tablet PO (09:13)
[2019-02-20] MEDS: BETHANECHOL CHLORIDE 25 MG TABLET 50 MG PO ×2 (09:13→21:26)
[2019-02-20] MEDS: APIXABAN 2.5 MG TABLET PO ×2 (09:14→21:27)
[2019-02-20] MEDS: Furosemide 100 MG/10 ML Vial 60 MG IV ×2 (09:14→17:31)
[2019-02-20 09:22] LABS: Magnesium 1.9 mg/dL (1.6-2.6)
--- NOTE | 2019-02-20 11:30 | CASEMGMT ---
Patient's daughter asked to talk with YOUSUF. YOUSUF met with her, introduced self and role at [facility]. She said patient's home is a mess as he is a hoarder. She said she is concerned with him going home because of his home. SW asked what she is concerned about as far as him being at home. She said his dirty home is probably contributing to his health issues. YOUSUF told her that is possible, however if patient is alert and oriented we cannot force him to go somewhere or clean his home. He has the right to make decisions even if they are bad choices. YOUSUF told her about Adult Protective Services, but not sure they would do anything as he is alert and oriented. YOUSUF asked her if she has talked with him regarding his home. She said she has, but he doesn't see it and he thinks she is crazy. YOUSUF had reviewed therapy notes and yesterday therapy was not recommending further therapy at discharge. YOUSUF said we can look at his therapy notes from today. YOUSUF again explained to her that if he is not in agreement with home health or going to a prison we cannot make him. She was not happy with YOUSUF's answer as she threw her arms in the air and said thanks for the help. YOUSUF told her it is a frustrating situation she is in, but we cannot take away someone's rights. Sara SETHI
[2019-02-20 12:55] LABS: Bedside Glucose 168 mg/dL (70-110)
--- NOTE | 2019-02-20 13:56 | CASEMGMT ---
SW met with patient, introduced self and role at [facility]. Patient's daughter was also present. SW asked patient how he felt with therapy today. He said he is fine, but didn't walk in the halls as he had a bout of diarrhea. He feels he will be fine to go home. SW asked if he feels like home health would be helpful. He said he isn't sure. SW told him we will follow along to help assess for appropriate d/c plan. Sara NOLEN MSW
[2019-02-20 17:01] LABS: Bedside Glucose 119 mg/dL (70-110)
--- NOTE | 2019-02-20 18:25 | PN.CARD_ITS ---
Subjectve: Patient seen and evaluated. Appears to be doing fairly well. Still short of breath Objective: Vital Signs Temp Pulse Resp BP Pulse Ox 97.5 F L 106 H 18 100/55 L 94 02/20/19 17:00 02/20/19 17:00 02/20/19 17:00 02/20/19 17:00 02/20/19 17:00 Oxygen Flow Rate (L/min) 2 Oxygen Delivery Method Nasal Cannula Weight: 216 lb 0.848 oz Body Mass Index (BMI) 37.5 Finger Stick Blood Glucose 143 Intake and Output for Last 24 Hours 02/18/19 02/19/19 02/20/19 23:59 23:59 23:59 Intake Total 940 / 940 1200 / 1200 686.16 / 686.16 Output Total 1600 / 1600 2049 / 2049 1150 / 1150 Balance -660 / -660 -850 / -850 -463.84 / -463.84 General: Awake, Alert, Oriented x 3 HEENT: PERRL, EOMI, Sclera Non Icteric Neck: Supple, Good ROM, No Lymph Node Enlargement Lungs: Diminished Rolo Bases Cardiovascular: Irregular Rhythm, Normal S1, Normal S2, No Murmurs, No Rubs, No Gallops Vascular: No Carotid Bruits, Normal Femoral Pulses, Normal Radial Pulses, Normal Dorsalis Pedal Pulse, Normal Posterior Tibial Pulses Abdomen: Bowel Sounds Present, Soft, Non Tender, No HSM, No Organomegaly Extremities: No Cyanosis, No Clubbing, No edema Musculoskeletal: No Erythema Skin: No Rashes Lymphatic: No Lymph Node Enlargement Neurological: No Focal Motor or Sensory Deficit Psych/Mental Status: Appropriate 02/20/19 05:25: Sodium 147 H, Potassium 3.2 L, Chloride 105, Carbon Dioxide 34.0 H, Anion Gap 8, BUN 27 H, Creatinine 1.54 H, Est GFR (MDRD) Af Amer 57 L, Est GFR (MDRD) Non-Af 47 L, BUN/Creatinine Ratio 17.5, Glucose 111 H, Calcium 8.6 02/20/19 05:25: Magnesium 1.9 Rhythm: EKG: ECHO: Stress Test: Cardiac Cath: PCI: CT Surgery: Holter monitor: EPS: PPM: CXR: Chest CT Scan: Medical Necessity - Tobacco Use Smoking Status: Never smoker Tobacco Use: Cigarettes, Cigars Assessment/Plan 1. Acute on chronic congestive heart failure exacerbation. Echocardiogram showed evidence of decline in the left ventricular ejection fraction. His previous echocardiogram had demonstrated an ejection fraction of approximately 40% in its now down to the 35% range. The patient still appears slightly hypervolemic by physical exam, therefore needs more diuresis. Low-dose of lisinopril was initiated, monitor creatinine, if trends up, lisinopril may be stopped and the patient to be placed on hydralazine and nitrates for afterload reduction. Continue Toprol-XL. Possible culprits for depressed left ventricular ejection fraction might be progression of coronary atherosclerosis, or simply rate related cardiomyopathy in the setting of atrial fibrillation with suboptimally controlled ventricular response. * May eventually need evaluation of his coronary anatomy. 2. History of chronic atrial fibrillation. His ventricular response rate does not appear to be very well controlled. He has been chronically anticoagulated and he will remain on the Toprol and I would recommend adding amiodarone to his regimen for rate control but not cardioversion. He has failed to DC cardioversion in the past. On anticoagulation with Eliquis 3. History of coronary artery disease. No evidence of acute coronary syndrome. He does have a history of left internal mammary artery to the left anterior descending artery, saphenous vein graft to posterior descending artery, and saphenous vein graft to the circumflex artery. Troponin elevation is just borderline in the setting of acute CHF exacerbation. * We will continue with adjustment of beta blockers. * He did have a stress test about 2 years ago which did not demonstrate any evidence of ischemia. * 4. Hypertension * His blood pressure currently appears to be under good control and so I would not make any major changes. * * Thank you for allowing me to participate in the care of your patient. Please don't hesitate to call if any issues arise
[2019-02-20] MEDS: Calcitriol 0.25 MCG Capsule PO (21:27)
[2019-02-20] MEDS: Doxazosin 4 MG Tablet PO (21:28)
[2019-02-20] MEDS: Finasteride 5 MG Tablet PO (21:30)
[2019-02-20] MEDS: Amiodarone 200 MG Tablet PO (21:30)
[2019-02-20 21:51] LABS: Bedside Glucose 146 mg/dL (70-110)
[2019-02-20] MEDS: BENZOCAINE/MENTHOL 1 LOZENGE MUCOUS MEM (22:57)
[2019-02-20] MEDS: guaiFENesin 10 ML UDC (200MG/10ML) 20 ML PO (23:53)
[2019-02-20] MEDS: MELATONIN 3 MG TABLET PO (23:56)
[2019-02-21] VITALS (53 sets, daily range): BP systolic 80–137; BP diastolic 44–111; PULSE 82–155; RESP 11–25; TEMP 36.3–36.7; O2SAT 88–97
[2019-02-21] MEDS: metOLazone 5 MG Tablet PO (01:12)
[2019-02-21] MEDS: 0.9% Saline Lock 10 ML Syringe IV ×3 (04:49→17:35)
[2019-02-21 06:46] LABS: Bedside Glucose 158 mg/dL (70-110)
--- NOTE | 2019-02-21 07:15 | PN.CARD_ITS ---
Subjectve: Patient seen and evaluated. Appears to be doing somewhat better though ventricular response rate is still not controlled. He still short of breath Objective: Vital Signs Temp Pulse Resp BP Pulse Ox 97.8 F 126 H 23 H 115/95 H 92 02/21/19 05:00 02/21/19 07:01 02/21/19 07:01 02/21/19 07:01 02/21/19 07:01 Oxygen Flow Rate (L/min) 2 Oxygen Delivery Method Nasal Cannula Weight: 216 lb 0.848 oz Body Mass Index (BMI) 37.5 Finger Stick Blood Glucose 143 Intake and Output for Last 24 Hours 02/19/19 02/20/19 02/21/19 23:59 23:59 23:59 Intake Total 1200 / 1200 789.16 / 789.16 1241.17 / 1241.17 Output Total 2049 / 2049 1250 / 1250 400 / 400 Balance -850 / -850 -460.84 / -460.84 841.17 / 841.17 General: Awake, Alert, Oriented x 3 HEENT: PERRL, EOMI, Sclera Non Icteric Neck: Supple, Good ROM, No Lymph Node Enlargement Lungs: Diminished Orlo Bases Cardiovascular: Irregular Rhythm, Normal S1, Normal S2, No Murmurs, No Rubs, No Gallops Vascular: No Carotid Bruits, Normal Femoral Pulses, Normal Radial Pulses, Normal Dorsalis Pedal Pulse, Normal Posterior Tibial Pulses Abdomen: Bowel Sounds Present, Soft, Non Tender, No HSM, No Organomegaly Extremities: No Cyanosis, No Clubbing, No edema Musculoskeletal: No Erythema Skin: No Rashes Lymphatic: No Lymph Node Enlargement Neurological: No Focal Motor or Sensory Deficit Psych/Mental Status: Appropriate 02/20/19 05:25: Magnesium 1.9 Rhythm: EKG: ECHO: Stress Test: Cardiac Cath: PCI: CT Surgery: Holter monitor: EPS: PPM: CXR: Chest CT Scan: Medical Necessity - Tobacco Use Smoking Status: Never smoker Tobacco Use: Cigarettes, Cigars Assessment/Plan 1. Acute on chronic congestive heart failure exacerbation. Echocardiogram showed evidence of decline in the left ventricular ejection fraction. His previous echocardiogram had demonstrated an ejection fraction of approximately 40% in its now down to the 35% range. The patient still appears slightly hypervolemic by physical exam, therefore needs more diuresis. Low-dose of lisinopril was initiated, monitor creatinine, if trends up, lisinopril may be stopped and the patient to be placed on hydralazine and nitrates for afterload reduction. * We will switch from Toprol-XL to metoprolol twice daily. Possible culprits for depressed left ventricular ejection fraction might be progression of coronary atherosclerosis, or simply rate related cardiomyopathy in the setting of atrial fibrillation with suboptimally controlled ventricular response. * May eventually need evaluation of his coronary anatomy. 2. History of chronic atrial fibrillation. His ventricular response rate does not appear to be very well controlled. He has been chronically anticoagulated and he will remain on the metoprolol and I would recommend adding amiodarone to his regimen for rate control but not cardioversion. He has failed to DC cardioversion in the past. * We will also try and add p.o. diltiazem On anticoagulation with Eliquis 3. History of coronary artery disease. No evidence of acute coronary syndrome. He does have a history of left internal mammary artery to the left anterior descending artery, saphenous vein graft to posterior descending artery, and saphenous vein graft to the circumflex artery. Troponin elevation is just borderline in the setting of acute CHF exacerbation. * We will continue with adjustment of beta blockers. * He did have a stress test about 2 years ago which did not demonstrate any evidence of ischemia. * 4. Hypertension * His blood pressure currently appears to be under good control and so I would not make any major changes. * * Thank you for allowing me to participate in the care of your patient. Please don't hesitate to call if any issues arise
[2019-02-21 07:23] LABS: Anion Gap 7 (5-15); BUN 30 mg/dL (7-18); BUN/Creat Ratio 16.6 RATIO (10-20); Calcium,Total 8.8 mg/dL (8.5-10.1); Chloride 104 mmol/L (98-107); Creatinine, Serum 1.81 mg/dL (0.70-1.30); EST Glomerular Filtration Rate 39 mL/min (>60); Est Glom Filt Rate - Afr Amer 47 mL/min (>60); Estimated Creatinine Clearance 30.84 ml/min; Glucose 159 mg/dL (74-106); Potassium 4.7 mmol/L (3.5-5.1); Sodium Level 142 mmol/L (136-145)
--- NOTE | 2019-02-21 08:50 | US_ITS ---
STUDY: ABDOMINAL ULTRASOUND - RIGHT UPPER QUADRANT REASON FOR VISIT: Male, 78 years old. Ascites. Evaluate for cirrhosis. TECHNIQUE: Ultrasound evaluation of the right upper quadrant was performed with real-time and static santana-scale imaging. TECHNICAL QUALITY: Adequate. COMPARISON: None. FINDINGS: Liver: The liver measures 71 cm. There is normal echogenicity and contour of the liver. The bile ducts are within normal limits. There is hepatic color flow. The direction of portal flow is hepatopetal. There is no demonstrated mass lesion. Gallbladder: Normal distended gallbladder. The gallbladder wall measures 3 mm. There is a negative sonographic Hopkins's sign. There is no pericholecystic fluid. There is a gallstone within the gallbladder. Common Bile Duct (C.B.D.): The common bile duct measures 4 mm. Pancreas: There is nonvisualization of the pancreas. Right Kidney: The right kidney is hyperechoic. The right kidney measures 12.9 cm. There is thinning of the renal cortex. There is a 4.1 x 4.1 cm simple cyst in the upper pole of the right kidney. There is no right hydronephrosis. US/Abdomen Limited IMPRESSION: Normal sonographic appearance of the liver. No focal hepatic lesions identified. Cholelithiasis without sonographic evidence of cholecystitis. Simple cyst in the right kidney. Hyperechoic right kidney with cortical thinning which is consistent with medical renal disease. Electronically Signed: Madhav Arenas, at 14:55 EST Tel , Service support ,
[2019-02-21] MEDS: Allopurinol 300 MG Tablet PO (11:34)
[2019-02-21] MEDS: dilTIAZem CD 120 MG Capsule PO ×2 (11:34→21:35)
[2019-02-21] MEDS: APIXABAN 2.5 MG TABLET PO ×2 (11:34→21:36)
[2019-02-21] MEDS: BETHANECHOL CHLORIDE 25 MG TABLET 50 MG PO ×2 (11:34→21:36)
[2019-02-21] MEDS: Furosemide 100 MG/10 ML Vial 60 MG IV ×2 (11:35→17:34)
[2019-02-21] MEDS: Lisinopril 2.5 MG Tablet PO (11:35)
[2019-02-21] MEDS: Metoprolol Tartrate 100 MG Tablet PO ×2 (11:36→21:35)
[2019-02-21] MEDS: Ipratropium/Albuterol Sulfate 3 ML AMPUL.NEB INHALATION ×3 (11:44→19:26)
[2019-02-21 11:45] LABS: Bedside Glucose 147 mg/dL (70-110)
--- NOTE | 2019-02-21 13:07 | CON.PCM_ITS ---
Reason for Consult Date of Consultation: 02/21/19 Reason for Consultation: soledad History of Present Illness: The patient is a 78 year old M presented with shortness of breath. The patient decreased his Lasix at home because of urinary incontinence. After that he noticed that he became more and more short of breath. Usually uses oxygen only at night but he had to use it also during the day because of his shortness of breath and his pulse ox was 85%. He was found to be in pulmonary edema in the emergency room. The patient states that he had diarrhea for about 2 -3 days prior to admission but no abdominal pain no vomiting. He denies dysuria or hematuria. He denies taking NSAIDs at home. States his shortness of breath is better. 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 He has no other complaints. Scr baseline 1.5?1.8. 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 Essential (primary) hypertension (Chronic) Hyperlipidemia (Chronic) Medical History: Medical History (Last Updated 02/18/19 @ 08:31 by Radhames Quach MD) Atherosclerosis of kaw coronary artery of kaw heart without angina pecto ris (Chronic) I25.10 CABG X 3: VILLEDA-LAD, SVG-LCx, SVG-RPDA 10/10/2003 Old inferior wall myocardial infarction (Chronic) I25.2 Ischemic cardiomyopathy (Chronic) I25.5 Longstanding persistent atrial fibrillation (Chronic) I48.11 CVA (cerebral vascular accident) (Chronic) I63.9 lower left cerebellar hemisphere Essential (primary) hypertension (Chronic) I10 Hyperlipidemia (Chronic) E78.5 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, N13.8 Chronic renal failure, stage 3 (moderate) N18.3 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, E66.9 FH: sudden cardiac (SCD) Z82.41 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 of premature coronary heart disease Z82.49 Female < 65 & Male < 55 History of stroke Z86.73 AUDRA (obstructive sleep apnea) G47.33 Obesity E66.9 Venous insufficiency Noncompliance (Inactive) Z91.19 Allergies hydrocodone [From Vicodin] Allergy (Severe, Verified 02/17/19 19:35) Rash aspirin Allergy (Intermediate, Verified 02/17/19 17:22) Swelling around eyes pseudoephedrine [From Sudafed] Adverse Reaction (Severe, Verified 02/17/19 17:22) Myalgias & flu like symptoms simvastatin [From Zocor] Adverse Reaction (Severe, Verified 02/17/19 17:22) Myalgias Sulfa (Sulfonamide Antibiotics) Adverse Reaction (Mild, Verified 02/17/19 17:22) Severe Pain in joints Home Medications: Ambulatory Orders Medication Instructions Recorded Finasteride [Proscar] 5 mg PO QHS 04/18/15 Bethanechol Chloride [Urecholine] 50 mg PO BID 12/08/16 colchicine 0.6 mg tablet 0.6 mg PO QODAY tab 01/13/18 apixaban 2.5 mg tablet 2.5 mg PO BID #180 tab 01/31/19 furosemide 40 mg tablet 40 mg PO BID #180 tab 01/31/19 Allopurinol 300 mg PO DAILY 02/17/19 Calcitriol 0.25 mcg PO QHS 02/17/19 Calcitriol 0.5 mcg PO DAILY 02/17/19 Diltiazem HCl [Diltiazem 24Hr ER 180 mg PO Q12 02/17/19 (Cd)] Doxazosin Mesylate [Cardura Xl] 4 mg PO QHS 02/17/19 Ergocalciferol [Vitamin D] 50,000 unit PO WE 02/17/19 Metoprolol Succinate [Toprol Xl] 100 mg PO DAILY 02/17/19 Potassium Chloride 10 meq PO DAILY 02/17/19 Surgical History: Surgical History (Last Updated 02/18/19 @ 07:17 by Radhames Quach MD) H/O coronary artery bypass surgery (Chronic) Onset Date: 10/10/03 Z95.1 CABG X 3: VILLEDA-LAD, SVG-LCx, SVG-RPDA 10/10/2003 History of cardioversion Onset Date: 2015 Z98.890 Surgical History: coronary bypass surgery, herniorrhaphy, - - Fractures Psychiatric History: No pertinent psych hx Smoking Status: Never smoker Tobacco Use: Cigarettes, Cigars - *Family History Maternal Family History: Family History (Last Reviewed 02/17/19 @ 19:39 by Sreekanth Bunn DO) Father Sudden cardiac Sister Heart disease Sudden cardiac Father Sudden cardiac History Items: No pertinent history Paternal Family History: Family History (Last Reviewed 02/17/19 @ 19:39 by Sreekanth Bunn DO) Father Sudden cardiac Sister Heart disease Sudden cardiac Father Sudden cardiac History Items: No pertinent history Review of Systems Eyes: Reports: - - The review of systems is otherwise negative unless noted in the HPI. Patient Problems: Active and Suspected Problems (Last Updated 02/18/19 @ 08:31 by Radhames Quach MD) HFrEF (heart failure with reduced ejection fraction) (Acute) NSTEMI (non-ST elevated myocardial infarction) (Acute) - Physical Exam Vitals/I&O's: Vital Signs Temp Pulse Resp BP Pulse Ox 97.4 F L 107 H 18 106/62 91 02/21/19 10:00 02/21/19 11:44 02/21/19 11:44 02/21/19 11:00 02/21/19 10:30 Oxygen Flow Rate (L/min) 2 Oxygen Delivery Method Nasal Cannula Weight: 98.7 kg Body Mass Index (BMI) 37.5 Finger Stick Blood Glucose 143 Intake and Output for Last 24 Hours 02/19/19 02/20/19 02/21/19 23:59 23:59 23:59 Intake Total 1200 / 1200 789.16 / 789.16 1436.50 / 1436.50 Output Total 2049 / 2049 1250 / 1250 400 / 400 Balance -850 / -850 -460.84 / -460.84 1036.50 / 1036.50 General: Alert, Oriented x3, Cooperative HEENT: Atraumatic, PERRLA, EOMI, Normocephalic Neck: Supple, No JVD, Negative Carotid Bruits Lungs: Clear to auscultation, Normal air movement Cardiovascular: Regular rate, No murmurs Abdomen: Bowel Sounds Present, Soft, Non Tender, Obese Extremities: No edema, Capillary Refill Less than 3 Seconds Skin: No rashes, No breakdown Musculoskeletal: No Tenderness to Palpation of Joints or Extremities Neurological: Cranial nerves II-XII grossly intact Psych/Mental Status: Normal Affect, Appropriate Microbiology Past 72 Hours 02/19/19 14:33 Sputum, Expectorated/Coughed Gram Stain - Final 02/19/19 14:33 Sputum, Expectorated/Coughed Respiratory Culture - Final 02/18/19 08:44 Mucosa - Nasopharyngeal Respiratory Panel (PCR) - Final Laboratory Results 02/20/19 16:42: POC Glucose 119 H 02/20/19 21:37: POC Glucose 146 H 02/21/19 06:40: Sodium 142, Potassium 4.7, Chloride 104, Carbon Dioxide 31.0, Anion Gap 7, BUN 30 H, Creatinine 1.81 H, Estim Creat Clear Calc 30.84, Est GFR (MDRD) Af Amer 47 L, Est GFR (MDRD) Non-Af 39 L, BUN/Creatinine Ratio 16.6, Glucose 159 H, Calcium 8.8 02/21/19 06:40: POC Glucose 158 H 02/21/19 11:32: POC Glucose 147 H Current Medications Acetaminophen (Tylenol) 650 mg PO Q6H PRN PRN PRN Reason: Pain Score 1-3/Temp > 100.7 F Albuterol Sulfate (Ventolin Aerosols) 2.5 mg INHALATION Q4H PRN PRN PRN Reason: Shortness of breath, wheezing Albuterol/Ipratropium (Duoneb) 3 ml INHALATION Q4H.RT [facility] Last Admin: 02/21/19 11:44 Dose: 3 ml Documented by: [facility] Last Admin: 02/21/19 11:34 Dose: 300 mg Documented by: Apixaban (Eliquis) 2.5 mg PO BID [facility] Last Admin: 02/21/19 11:34 Dose: 2.5 mg Documented by: Bethanechol Chloride (Bethanechol Chloride) 50 mg PO BID [facility] Last Admin: 02/21/19 11:34 Dose: 50 mg Documented by: Calcitriol (Rocaltrol) 0.25 mcg PO QHS [facility] Last Admin: 02/20/19 21:27 Dose: 0.25 mcg Documented by: Colchicine (Colchicine) 0.6 mg PO DAILY PRN PRN PRN Reason: gout flare Dextrose (D50w Syringe) 0 gm IV X1 PRN; Protocol PRN Reason: Hypoglycemia Diltiazem HCl (Cardizem Cd) 120 mg PO Q12 [facility] Last Admin: 02/21/19 11:34 Dose: 120 mg Documented by: Doxazosin Mesylate (Cardura) 4 mg PO QHS [facility] Last Admin: 02/20/19 21:28 Dose: 4 mg Documented by: Ergocalciferol (Vitamin D) 50,000 unit PO [facility] Finasteride (Proscar) 5 mg PO DAILY@2200 [facility] Last Admin: 02/20/19 21:30 Dose: 5 mg Documented by: Furosemide (Lasix) 60 mg IV BID@1000,1800 [facility] Last Admin: 02/21/19 11:35 Dose: 60 mg Documented by: Glucagon () 1 mg IM .X1 PRN PRN Reason: Hypoglycemia Guaifenesin (Robitussin) 20 ml PO Q4H PRN PRN PRN Reason: COUGH Last Admin: 02/20/19 23:53 Dose: 20 ml Documented by: Sodium Chloride () 250 mls @ 15 mls/hr IV .[id number] PRN PRN Reason: Saline Flush Amiodarone HCl 360 mg/ (Dextrose) 200 mls @ 33.333 mls/hr CONT INF .Q6H [facility] Stop: 02/21/19 14:14 Last Infusion: 02/21/19 11:00 Dose: 1 mg/min, 33.3 mls/hr Documented by: Amiodarone HCl 360 mg/ (Dextrose) 200 mls @ 16.667 mls/hr CONT INF .Q12H [facility] Stop: 02/22/19 08:14 Insulin Human Lispro (Humalog Kwikpen (Bkc)) 0 unit SC TIDAC [facility]; Protocol Last Admin: 02/21/19 11:35 Dose: Not Given Documented by: Lisinopril (Zestril) 2.5 mg PO DAILY [facility] Last Admin: 02/21/19 11:35 Dose: 2.5 mg Documented by: Melatonin (Melatonin) 3 mg PO QHS PRN PRN PRN Reason: INSOMNIA Last Admin: 02/20/19 23:56 Dose: 3 mg Documented by: Metoprolol Tartrate (Lopressor (Beta Fiordaliza)) 100 mg PO BID [facility] Last Admin: 02/21/19 11:36 Dose: 100 mg Documented by: Nutritional Formula (Lactose Free) (Glucerna Shake) 60 ml PO TIDCM [facility] Last Admin: 02/21/19 11:35 Dose: Not Given Documented by: Nystatin (Mycostatin Powder) 1 applic TOPICAL BID [facility]; Protocol Ondansetron HCl (Zofran) 4 mg IV Q8H PRN PRN PRN Reason: NAUSEA/VOMITING Oxycodone HCl (Oxyir) 5 mg PO Q4H PRN PRN PRN Reason: Pain Score 4-10/10 Potassium Chloride (K-Dur) 20 meq PO BIDCM [facility] Last Admin: 02/21/19 11:33 Dose: 20 meq Documented by: Sodium Chloride () 10 - 40 ml IV UD PRN PRN Reason: SALINE FLUSH Last Admin: 02/21/19 11:35 Dose: 10 ml Documented by: Throat Lozenges (Cepacol Sore Throat Lozenge) 1 lozenge MUCOUS MEM Q2H PRN PRN PRN Reason: COUGH Last Admin: 02/20/19 22:57 Dose: 1 lozenge Documented by: Assessment/Plan All Active Problems (Last Updated 02/18/19 @ 08:31 by Radhames Quach MD) HFrEF (heart failure with reduced ejection fraction) (Acute) NSTEMI (non-ST elevated myocardial infarction) (Acute) CKD at baseline which is 1.5-1.8 HTN Heart failure Urine analysis is bland Check renal ultrasound Avoid nephrotoxins and overdiuresis bp controlled The above assessment and plan was discussed at length with the patient who voiced understanding. She was given the opportunity to ask questions and stated that those were answered to her satisfaction. Thank you very much for allowing me to participate in the care of this patient. Please do not hesitate to call if you have any questions or concerns.
--- NOTE | 2019-02-21 13:25 | US_ITS ---
STUDY: RENAL ULTRASOUND - COMPLETE REASON FOR EXAM: Male, 78 years old. JENNIFER TECHNIQUE: Ultrasound evaluation of the kidneys was performed with real-time and static singh-scale imaging. COMPARISON: None. FINDINGS: RIGHT KIDNEY: with mild renal hypertrophy. The right kidney measures 14.1 cm. There is diffuse thinning of the renal cortex. The renal cortex measures 0.8 cm. At least one anechoic cyst measuring 4 cm. Nonobstructing 8 mm mid pole calculus. There is no right hydronephrosis. Echogenic parenchyma. DISTAL RIGHT URETER: There is non-visualization of the distal right ureter. There is no demonstrated right ureterovesical junction calculus. There is no demonstrated right ureteral jet. LEFT KIDNEY: with mild renal hypertrophy. The left kidney measures 13.9 cm. There is a normal cortex of the left kidney. The renal cortex measures 1.3 cm. Anechoic cyst measuring 4.3 cm. There are no left renal calculi. There is no left hydronephrosis. Echogenic parenchyma. DISTAL LEFT URETER: There is non-visualization of the distal left ureter. There is no demonstrated left ureterovesical junction calculus. There is no demonstrated left ureteral jet. BLADDER: The distended urinary bladder has a volume of 134 ml. There is a normal wall thickness of the distended urinary bladder. There is no demonstrated mass within the urinary bladder. There are no demonstrated bladder calculi. US/Kidney and Bladder IMPRESSION: Mild hypertrophy of the kidneys with mild parenchymal thinning, particularly on the right. Echogenic renal cortex. Nonobstructing right renal nephrolith. Bilateral renal cysts. Electronically Signed: Doe Ashley DO at 21:40 EST Tel , Service support ,
--- NOTE | 2019-02-21 15:18 | PCM.PN.HOSP ---
Patient Problems: Active and Suspected Problems (Last Updated 02/18/19 @ 08:31 by Radhames Quach MD) HFrEF (heart failure with reduced ejection fraction) (Acute) NSTEMI (non-ST elevated myocardial infarction) (Acute) Subjective: Patient short of breath. Last night, patient had rapid ventricular response of A. fib. Initially started on Cardizem drip which is now discontinued and changed to amiodarone drip. Patient was admitted with anasarca, pulmonary edema ascites and lower extremity edema. Creatinine is gradually went up from 1.6-1.81. BUN is initially decreased to robert 27 and then went up to 30. Vitals/I&O's: Vital Signs Temp Pulse Resp BP Pulse Ox 97.8 F 82 12 95/44 L 96 02/21/19 14:00 02/21/19 14:49 02/21/19 14:00 02/21/19 14:00 02/21/19 14:00 Oxygen Flow Rate (L/min) 2 Oxygen Delivery Method Nasal Cannula Weight: 217 lb 9.54 oz Body Mass Index (BMI) 37.5 Finger Stick Blood Glucose 143 Intake and Output for Last 24 Hours 02/19/19 02/20/19 02/21/19 23:59 23:59 23:59 Intake Total 1200 / 1200 789.16 / 789.16 1556.50 / 1556.50 Output Total 2049 / 2049 1250 / 1250 500 / 500 Balance -850 / -850 -460.84 / -460.84 1056.50 / 1056.50 General: Alert, Oriented x3, Cooperative, - - Short of breath HEENT: Atraumatic, PERRLA, EOMI, Normocephalic Neck: Supple, No JVD, Negative Carotid Bruits Lungs: Diminished - Air entry is diminished more on bilateral lung bases., Rhonchi - Coarse rhonchi present, Short of Breath, Tachypneic Cardiovascular: No murmurs, Irregular Rate, Murmur, Tachycardic Abdomen: Bowel Sounds Present, Soft, Distended - With ascites. Extremities: No edema, Capillary Refill Less than 3 Seconds Skin: No rashes, No breakdown Musculoskeletal: No Tenderness to Palpation of Joints or Extremities, Arthritic Changes Neurological: Cranial nerves II-XII grossly intact, Neuro grossly intact Psych/Mental Status: Normal Affect, Appropriate Microbiology Past 72 Hours 02/19/19 14:33 Sputum, Expectorated/Coughed Gram Stain - Final 02/19/19 14:33 Sputum, Expectorated/Coughed Respiratory Culture - Final 02/18/19 08:44 Mucosa - Nasopharyngeal Respiratory Panel (PCR) - Final Laboratory Results 02/20/19 16:42: POC Glucose 119 H 02/20/19 21:37: POC Glucose 146 H 02/21/19 06:40: Sodium 142, Potassium 4.7, Chloride 104, Carbon Dioxide 31.0, Anion Gap 7, BUN 30 H, Creatinine 1.81 H, Estim Creat Clear Calc 30.84, Est GFR (MDRD) Af Amer 47 L, Est GFR (MDRD) Non-Af 39 L, BUN/Creatinine Ratio 16.6, Glucose 159 H, Calcium 8.8 02/21/19 06:40: POC Glucose 158 H 02/21/19 11:32: POC Glucose 147 H Current Medications Acetaminophen (Tylenol) 650 mg PO Q6H PRN PRN PRN Reason: Pain Score 1-3/Temp > 100.7 F Albuterol Sulfate (Ventolin Aerosols) 2.5 mg INHALATION Q4H PRN PRN PRN Reason: Shortness of breath, wheezing Albuterol/Ipratropium (Duoneb) 3 ml INHALATION Q4H.RT [facility] Last Admin: 02/21/19 11:44 Dose: 3 ml Documented by: Allopurinol (Zyloprim) 300 mg PO DAILYCM [facility] Last Admin: 02/21/19 11:34 Dose: 300 mg Documented by: Apixaban (Eliquis) 2.5 mg PO BID [facility] Last Admin: 02/21/19 11:34 Dose: 2.5 mg Documented by: Bethanechol Chloride (Bethanechol Chloride) 50 mg PO BID [facility] Last Admin: 02/21/19 11:34 Dose: 50 mg Documented by: Calcitriol (Rocaltrol) 0.25 mcg PO QHS [facility] Last Admin: 02/20/19 21:27 Dose: 0.25 mcg Documented by: Colchicine (Colchicine) 0.6 mg PO DAILY PRN PRN PRN Reason: gout flare Dextrose (D50w Syringe) 0 gm IV X1 PRN; Protocol PRN Reason: Hypoglycemia Diltiazem HCl (Cardizem Cd) 120 mg PO Q12 [facility] Last Admin: 02/21/19 11:34 Dose: 120 mg Documented by: Doxazosin Mesylate (Cardura) 4 mg PO QHS [facility] Last Admin: 02/20/19 21:28 Dose: 4 mg Documented by: Ergocalciferol (Vitamin D) 50,000 unit PO [facility] Finasteride (Proscar) 5 mg PO DAILY@2200 [facility] Last Admin: 02/20/19 21:30 Dose: 5 mg Documented by: Furosemide (Lasix) 60 mg IV BID@1000,1800 [facility] Last Admin: 02/21/19 11:35 Dose: 60 mg Documented by: Glucagon () 1 mg IM .X1 PRN PRN Reason: Hypoglycemia Guaifenesin (Robitussin) 20 ml PO Q4H PRN PRN PRN Reason: COUGH Last Admin: 02/20/19 23:53 Dose: 20 ml Documented by: Sodium Chloride () 250 mls @ 15 mls/hr IV .[id number] PRN PRN Reason: Saline Flush Amiodarone HCl 360 mg/ (Dextrose) 200 mls @ 16.667 mls/hr CONT INF .Q12H [facility] Stop: 02/22/19 08:14 Insulin Human Lispro (Humalog Kwikpen (Bkc)) 0 unit SC TIDAC [facility]; Protocol Last Admin: 02/21/19 11:35 Dose: Not Given Documented by: Lisinopril (Zestril) 2.5 mg PO DAILY [facility] Last Admin: 02/21/19 11:35 Dose: 2.5 mg Documented by: Melatonin (Melatonin) 3 mg PO QHS PRN PRN PRN Reason: INSOMNIA Last Admin: 02/20/19 23:56 Dose: 3 mg Documented by: Metoprolol Tartrate (Lopressor (Beta Fiordaliza)) 100 mg PO BID [facility] Last Admin: 02/21/19 11:36 Dose: 100 mg Documented by: Nutritional Formula (Lactose Free) (Glucerna Shake) 60 ml PO TIDCM [facility] Last Admin: 02/21/19 11:35 Dose: Not Given Documented by: Nystatin (Mycostatin Powder) 1 applic TOPICAL BID [facility]; Protocol Ondansetron HCl (Zofran) 4 mg IV Q8H PRN PRN PRN Reason: NAUSEA/VOMITING Oxycodone HCl (Oxyir) 5 mg PO Q4H PRN PRN PRN Reason: Pain Score 4-10/10 Potassium Chloride (K-Dur) 20 meq PO BIDCM [facility] Last Admin: 02/21/19 11:33 Dose: 20 meq Documented by: Sodium Chloride () 10 - 40 ml IV UD PRN PRN Reason: SALINE FLUSH Last Admin: 02/21/19 11:35 Dose: 10 ml Documented by: Throat Lozenges (Cepacol Sore Throat Lozenge) 1 lozenge MUCOUS MEM Q2H PRN PRN PRN Reason: COUGH Last Admin: 02/20/19 22:57 Dose: 1 lozenge Documented by: STROKE Vital Signs/Narrative: Vital Signs Temp Pulse Resp BP Pulse Ox 02/21/19 14:49 82 02/21/19 14:00 97.8 F 91 12 95/44 L 96 02/21/19 11:44 107 H 18 02/21/19 11:42 118 H 02/21/19 11:36 109 H Medical Necessity - Tobacco Use Smoking Status: Never smoker Tobacco Use: Cigarettes, Cigars Assessment/Plan All Active Problems (Last Updated 02/18/19 @ 08:31 by Radhames Quach MD) HFrEF (heart failure with reduced ejection fraction) (Acute) NSTEMI (non-ST elevated myocardial infarction) (Acute) This is a 78 years old male patient presented to the emergency room because of worsening shortness of breath, also complained of mild sinus congestion, rhinorrhea, cough and sore throat and he was admitted for acute on chronic systolic CHF. #1 acute on chronic systolic CHF: Patient is being admitted on PCU. Patient has good urine output. Patient feels improvement in shortness of breath and leg edema. Respiratory panel for viruses were negative. EKG revealed A. fib, ST segment depression in leads V4, V5 and V6 which are chronic, no acute ischemic changes. Troponin is borderline elevated and flat. 2D echocardiogram revealed ejection fraction of 30 to 35%. Patient was seen by carpet binder. On medical management. Lisinopril 2.5 mg daily. On hydralazine and isosorbide mononitrate. 02/21/2019: Patient is more short of breath. A. fib with RVR initially started on Cardizem drip which is changed to amiodarone drip by carpet binder. Rate is controlled. Abdominal right upper quadrant sonogram was done which shows normal echogenicity of contour of liver. Did not show up any ascites clinically it seems ascites. #2 probable non-ST elevation PR: Secondary to #1. Troponin is borderline elevated and flat. Patient having chest pain. EKG showed no acute ischemic changes. Continue Eliquis and metoprolol. Recommended coronary invasive assessment in future when kidney function is stabilized and heart failure is optimized. #3 CAD status post CABG: continue IV diuresis, continue Eliquis, metoprolol. #4 chronic atrial fibrillation: Rate is controlled, continue Cardizem and metoprolol for rate control, continue Eliquis for anticoagulation. 02/21: Patient went into A. fib with RVR. Rate is controlled. #5 hypertension: Blood pressure stable, continue Lasix, metoprolol. #6 benign prostatic hypertrophy: Continue Cardura and Proscar. #7 stage III chronic kidney disease with mild hypokalemia: Baseline creatinine has been around 1.3 to 1.8 mg/dL. Potassium replaced. 02/21/2029: CKD stage III: 18 is still at the baseline although went up to about 1.8. General Operations Agent has been consulted. Renal ultrasound ordered. Blood pressure controlled. Avoid nephrotoxins and overdiuresis. #8 chronic respiratory failure: On home oxygen mainly at night at 2 L. Currently on 2 L #9 DVT prophylaxis: Continue Eliquis. Active Medications Acetaminophen (Tylenol) 650 mg PO Q6H PRN PRN PRN Reason: Pain Score 1-3/Temp > 100.7 F Albuterol Sulfate (Ventolin Aerosols) 2.5 mg INHALATION Q4H PRN PRN PRN Reason: Shortness of breath, wheezing Albuterol/Ipratropium (Duoneb) 3 ml INHALATION Q4H.RT [facility] Last Admin: 02/21/19 15:17 Dose: 3 ml Documented by: [facility] Last Admin: 02/21/19 11:34 Dose: 300 mg Documented by: Apixaban (Eliquis) 2.5 mg PO BID [facility] Last Admin: 02/21/19 11:34 Dose: 2.5 mg Documented by: Bethanechol Chloride (Bethanechol Chloride) 50 mg PO BID [facility] Last Admin: 02/21/19 11:34 Dose: 50 mg Documented by: Calcitriol (Rocaltrol) 0.25 mcg PO QHS [facility] Last Admin: 02/20/19 21:27 Dose: 0.25 mcg Documented by: Colchicine (Colchicine) 0.6 mg PO DAILY PRN PRN PRN Reason: gout flare Dextrose (D50w Syringe) 0 gm IV X1 PRN; Protocol PRN Reason: Hypoglycemia Diltiazem HCl (Cardizem Cd) 120 mg PO Q12 [facility] Last Admin: 02/21/19 11:34 Dose: 120 mg Documented by: Doxazosin Mesylate (Cardura) 4 mg PO QHS [facility] Last Admin: 02/20/19 21:28 Dose: 4 mg Documented by: Ergocalciferol (Vitamin D) 50,000 unit PO [facility] Finasteride (Proscar) 5 mg PO DAILY@2200 [facility] Last Admin: 02/20/19 21:30 Dose: 5 mg Documented by: Furosemide (Lasix) 60 mg IV BID@1000,1800 [facility] Last Admin: 02/21/19 11:35 Dose: 60 mg Documented by: Glucagon () 1 mg IM .X1 PRN PRN Reason: Hypoglycemia Guaifenesin (Robitussin) 20 ml PO Q4H PRN PRN PRN Reason: COUGH Last Admin: 02/20/19 23:53 Dose: 20 ml Documented by: Sodium Chloride () 250 mls @ 15 mls/hr IV .[id number] PRN PRN Reason: Saline Flush Amiodarone HCl 360 mg/ (Dextrose) 200 mls @ 16.667 mls/hr CONT INF .Q12H [facility] Stop: 02/22/19 08:14 Insulin Human Lispro (Humalog Kwikpen (Bkc)) 0 unit SC TIDAC [facility]; Protocol Last Admin: 02/21/19 11:35 Dose: Not Given Documented by: Lisinopril (Zestril) 2.5 mg PO DAILY [facility] Last Admin: 02/21/19 11:35 Dose: 2.5 mg Documented by: Melatonin (Melatonin) 3 mg PO QHS PRN PRN PRN Reason: INSOMNIA Last Admin: 02/20/19 23:56 Dose: 3 mg Documented by: Metoprolol Tartrate (Lopressor (Beta Fiordaliza)) 100 mg PO BID [facility] Last Admin: 02/21/19 11:36 Dose: 100 mg Documented by: Nutritional Formula (Lactose Free) (Glucerna Shake) 60 ml PO TIDCM [facility] Last Admin: 02/21/19 11:35 Dose: Not Given Documented by: Nystatin (Mycostatin Powder) 1 applic TOPICAL BID [facility]; Protocol Ondansetron HCl (Zofran) 4 mg IV Q8H PRN PRN PRN Reason: NAUSEA/VOMITING Oxycodone HCl (Oxyir) 5 mg PO Q4H PRN PRN PRN Reason: Pain Score 4-10/10 Potassium Chloride (K-Dur) 20 meq PO BIDCM [facility] Last Admin: 02/21/19 11:33 Dose: 20 meq Documented by: Sodium Chloride () 10 - 40 ml IV UD PRN PRN Reason: SALINE FLUSH Last Admin: 02/21/19 11:35 Dose: 10 ml Documented by: Throat Lozenges (Cepacol Sore Throat Lozenge) 1 lozenge MUCOUS MEM Q2H PRN PRN PRN Reason: COUGH Last Admin: 02/20/19 22:57 Dose: 1 lozenge Documented by: Code Visit Inpatient E&M: 08226 Subs Hosp L3
[2019-02-21] MEDS: Nystatin Powder 15gm Bottle 1 APPLIC TOPICAL ×2 (16:05→21:37)
[2019-02-21 16:36] LABS: Bedside Glucose 130 mg/dL (70-110)
[2019-02-21] MEDS: Glucerna Shake 120 ML LIQUID 60 ML PO (17:36)
[2019-02-21] MEDS: Acetylcysteine 800 MG/4 ML VIAL.NEB. INHALATION (19:27)
--- NOTE | 2019-02-21 19:35 | CPS ---
pt refused pep therapy
[2019-02-21] MEDS: Doxazosin 4 MG Tablet PO (21:36)
[2019-02-21] MEDS: Finasteride 5 MG Tablet PO (21:36)
[2019-02-21] MEDS: Calcitriol 0.25 MCG Capsule PO (21:37)
[2019-02-21 23:11] LABS: Bedside Glucose 167 mg/dL (70-110)
[2019-02-22] VITALS (28 sets, daily range): BP systolic 89–126; BP diastolic 48–71; PULSE 71–95; RESP 14–22; TEMP 36.2–36.9; O2SAT 91–97
[2019-02-22] MEDS: Ipratropium/Albuterol Sulfate 3 ML AMPUL.NEB INHALATION ×4 (03:49→19:15)
[2019-02-22 06:55] LABS: Bedside Glucose 118 mg/dL (70-110)
[2019-02-22] MEDS: Allopurinol 300 MG Tablet PO (08:26)
[2019-02-22] MEDS: APIXABAN 2.5 MG TABLET PO ×2 (10:35→22:32)
[2019-02-22] MEDS: BETHANECHOL CHLORIDE 25 MG TABLET 50 MG PO ×2 (10:35→22:32)
[2019-02-22] MEDS: Nystatin Powder 15gm Bottle 1 APPLIC TOPICAL ×2 (10:36→22:32)
[2019-02-22] MEDS: Amiodarone 200 MG Tablet PO ×2 (10:38→22:32)
[2019-02-22 11:21] LABS: Bedside Glucose 139 mg/dL (70-110)
[2019-02-22 11:47] LABS: Anion Gap 6 (5-15); BUN 30 mg/dL (7-18); BUN/Creat Ratio 17.1 RATIO (10-20); Calcium,Total 8.8 mg/dL (8.5-10.1); Chloride 101 mmol/L (98-107); Creatinine, Serum 1.75 mg/dL (0.70-1.30); EST Glomerular Filtration Rate 40 mL/min (>60); Est Glom Filt Rate - Afr Amer 49 mL/min (>60); Glucose 121 mg/dL (74-106); Magnesium 1.9 mg/dL (1.6-2.6); Potassium 3.6 mmol/L (3.5-5.1); Sodium Level 140 mmol/L (136-145)
--- NOTE | 2019-02-22 12:02 | PCM.PROGNOTE ---
Patient Problems: Active and Suspected Problems (Last Updated 02/18/19 @ 08:31 by Radhames Quach MD) HFrEF (heart failure with reduced ejection fraction) (Acute) NSTEMI (non-ST elevated myocardial infarction) (Acute) Subjective: No more diarrhea today shortness of breath resolved no chest pain - Physical Exam Vitals/I&O's: Vital Signs Temp Pulse Resp BP Pulse Ox 97.7 F L 85 16 95/56 L 95 02/22/19 10:00 02/22/19 11:00 02/22/19 11:00 02/22/19 11:00 02/22/19 11:00 Oxygen Flow Rate (L/min) 2 Oxygen Delivery Method Nasal Cannula Weight: 95.1 kg Body Mass Index (BMI) 37.5 Finger Stick Blood Glucose 143 Intake and Output for Last 24 Hours 02/20/19 02/21/19 02/22/19 23:59 23:59 23:59 Intake Total 789.16 / 789.16 2038.47 / 2055.17 546.35 / 546.35 Output Total 1250 / 1250 1225 / 1225 1575 / 1575 Balance -460.84 / -460.84 813.47 / 830.17 -1028.65 / -1028.65 General: Alert, Oriented x3, Cooperative HEENT: Atraumatic, PERRLA, EOMI, Normocephalic Neck: Supple, No JVD, Negative Carotid Bruits Lungs: Clear to auscultation, Normal air movement Cardiovascular: Regular rate, No murmurs Abdomen: Bowel Sounds Present, Soft, Non Tender, Obese Extremities: No edema, Capillary Refill Less than 3 Seconds Skin: No rashes, No breakdown Musculoskeletal: No Tenderness to Palpation of Joints or Extremities Neurological: Cranial nerves II-XII grossly intact Psych/Mental Status: Normal Affect, Appropriate Microbiology Past 72 Hours 02/19/19 14:33 Sputum, Expectorated/Coughed Gram Stain - Final 02/19/19 14:33 Sputum, Expectorated/Coughed Respiratory Culture - Final Laboratory Results 02/21/19 16:22: POC Glucose 130 H 02/21/19 21:41: POC Glucose 167 H 02/22/19 06:47: POC Glucose 118 H 02/22/19 10:45: Sodium 140, Potassium 3.6, Chloride 101, Carbon Dioxide 33.0 H, Anion Gap 6, BUN 30 H, Creatinine 1.75 H, Estim Creat Clear Calc 31.90, Est GFR (MDRD) Af Amer 49 L, Est GFR (MDRD) Non-Af 40 L, BUN/Creatinine Ratio 17.1, Glucose 121 H, Calcium 8.8, Magnesium 1.9 02/22/19 11:16: POC Glucose 139 H Current Medications Acetaminophen (Tylenol) 650 mg PO Q6H PRN PRN PRN Reason: Pain Score 1-3/Temp > 100.7 F Acetylcysteine (Mucomyst) 800 mg INHALATION Q12H.RT [facility] Last Admin: 02/22/19 06:55 Dose: Not Given Documented by: Albuterol Sulfate (Ventolin Aerosols) 2.5 mg INHALATION Q4H PRN PRN PRN Reason: Shortness of breath, wheezing Albuterol/Ipratropium (Duoneb) 3 ml INHALATION Q4H.RT [facility] Last Admin: 02/22/19 06:55 Dose: 3 ml Documented by: Allopurinol (Zyloprim) 300 mg PO DAILYCM [facility] Last Admin: 02/22/19 08:26 Dose: 300 mg Documented by: Amiodarone HCl (Cordarone) 200 mg PO BID [facility] Last Admin: 02/22/19 10:38 Dose: 200 mg Documented by: Apixaban (Eliquis) 2.5 mg PO BID [facility] Last Admin: 02/22/19 10:35 Dose: 2.5 mg Documented by: Bethanechol Chloride (Bethanechol Chloride) 50 mg PO BID [facility] Last Admin: 02/22/19 10:35 Dose: 50 mg Documented by: Calcitriol (Rocaltrol) 0.25 mcg PO QHS [facility] Last Admin: 02/21/19 21:37 Dose: 0.25 mcg Documented by: Colchicine (Colchicine) 0.6 mg PO DAILY PRN PRN PRN Reason: gout flare Dextrose (D50w Syringe) 0 gm IV X1 PRN; Protocol PRN Reason: Hypoglycemia Diltiazem HCl (Cardizem Cd) 120 mg PO Q12 [facility] Last Admin: 02/22/19 10:39 Dose: Not Given Documented by: Doxazosin Mesylate (Cardura) 4 mg PO QHS [facility] Last Admin: 02/21/19 21:36 Dose: 4 mg Documented by: Ergocalciferol (Vitamin D) 50,000 unit PO WE [facility] Finasteride (Proscar) 5 mg PO DAILY@2200 [facility] Last Admin: 02/21/19 21:36 Dose: 5 mg Documented by: Furosemide (Lasix) 40 mg PO DAILY [facility] Glucagon () 1 mg IM .X1 PRN PRN Reason: Hypoglycemia Guaifenesin (Mucinex) 1,200 mg PO BID [facility] Sodium Chloride () 250 mls @ 15 mls/hr IV .[id number] PRN PRN Reason: Saline Flush Insulin Human Lispro (Humalog Kwikpen (Bkc)) 0 unit SC TIDAC [facility]; Protocol Last Admin: 02/22/19 11:24 Dose: Not Given Documented by: Lisinopril (Zestril) 2.5 mg PO DAILY [facility] Last Admin: 02/22/19 10:41 Dose: Not Given Documented by: Melatonin (Melatonin) 3 mg PO QHS PRN PRN PRN Reason: INSOMNIA Last Admin: 02/20/19 23:56 Dose: 3 mg Documented by: Metoprolol Tartrate (Lopressor (Beta Fiordaliza)) 100 mg PO BID [facility] Last Admin: 02/21/19 21:35 Dose: 100 mg Documented by: Nutritional Formula (Lactose Free) (Glucerna Shake) 60 ml PO TIDCM [facility] Last Admin: 02/22/19 11:24 Dose: Not Given Documented by: Nystatin (Mycostatin Powder) 1 applic TOPICAL BID [facility]; Protocol Last Admin: 02/22/19 10:36 Dose: 1 applicatio Documented by: Ondansetron HCl (Zofran) 4 mg IV Q8H PRN PRN PRN Reason: NAUSEA/VOMITING Oxycodone HCl (Oxyir) 5 mg PO Q4H PRN PRN PRN Reason: Pain Score 4-10/10 [facility] Last Admin: 02/22/19 08:26 Dose: 20 meq Documented by: Sodium Chloride () 10 - 40 ml IV UD PRN PRN Reason: SALINE FLUSH Last Admin: 02/21/19 17:35 Dose: 10 ml Documented by: Throat Lozenges (Cepacol Sore Throat Lozenge) 1 lozenge MUCOUS MEM Q2H PRN PRN PRN Reason: COUGH Last Admin: 02/20/19 22:57 Dose: 1 lozenge Documented by: Medical Necessity - Tobacco Use Smoking Status: Never smoker Tobacco Use: Cigarettes, Cigars Assessment/Plan All Active Problems (Last Updated 02/18/19 @ 08:31 by Radhames Quach MD) HFrEF (heart failure with reduced ejection fraction) (Acute) NSTEMI (non-ST elevated myocardial infarction) (Acute) CKD at baseline which is 1.5-1.8 HTN R renal cyst Nephrolithiasis asymptomatic Heart failure creatinine is 1.75 which is consistent with his baseline Avoid nephrotoxins and overdiuresis Okay from renal standpoint to continue the low-dose lisinopril as you are doing bp controlled
[2019-02-22] MEDS: Metoprolol Tartrate 100 MG Tablet PO ×2 (12:09→22:32)
[2019-02-22] MEDS: guaiFENesin 1,200 MG Tablet 1200 MG PO ×2 (12:09→22:32)
--- NOTE | 2019-02-22 13:19 | CASEMGMT ---
SW spoke with patient and discussed his discharge plan. He said he still feels like he is fine going home. SW asked if he felt he would benefit from going to a halfway. He said he is not doing that again. He said he only did it last time because he could not get around at all. SW asked him about his home being cluttered. He said it is and he has been sick so it is worse than normal. He said his daughter is okay if it is her clutter, but not someone else's clutter. SW then spoke with him about Palliative Care. He was open to talking with them and agreed to allow SW to make a referral. SW told him they would call him and set up a time to talk with him about the program. SW will make a referral to Palliative Care. Sara SETHI
--- NOTE | 2019-02-22 13:49 | CASEMGMT ---
Referral made to Palliative Care via phone call and fax. Sara NOLEN MSW
--- NOTE | 2019-02-22 14:17 | PN_ITS ---
Patient Problems: Active and Suspected Problems (Last Updated 02/18/19 @ 08:31 by Radhames Quach MD) HFrEF (heart failure with reduced ejection fraction) (Acute) NSTEMI (non-ST elevated myocardial infarction) (Acute) Subjective: CC: Follow-up for heart failure, acute kidney injury on CKD stage III and A. fib with RVR. Patient heart rate is controlled on amiodarone drip. Blood pressure is on lower side, systolic 90s. Antihypertensive medications were held, Cardizem CD and low-dose lisinopril and metoprolol but amiodarone continued. Shortness of breath is better but patient still has weak cough. Vitals/I&O's: Vital Signs Temp Pulse Resp BP Pulse Ox 97.2 F L 82 18 92/52 L 92 02/22/19 13:48 02/22/19 13:48 02/22/19 13:48 02/22/19 13:48 02/22/19 13:48 Oxygen Flow Rate (L/min) 2 Oxygen Delivery Method Nasal Cannula Weight: 209 lb 10.554 oz Body Mass Index (BMI) 37.5 Finger Stick Blood Glucose 143 Intake and Output for Last 24 Hours 02/20/19 02/21/19 02/22/19 23:59 23:59 23:59 Intake Total 789.16 / 789.16 2038.47 / 2055.17 796.35 / 796.35 Output Total 1250 / 1250 1225 / 1225 1675 / 1675 Balance -460.84 / -460.84 813.47 / 830.17 -878.65 / -878.65 General: Alert, Oriented x3, Cooperative HEENT: Atraumatic, PERRLA, EOMI, Normocephalic Neck: Supple, No JVD, Negative Carotid Bruits Lungs: Diminished - Air entry is diminished in bilateral lungs., Rhonchi Cardiovascular: Normal S1, Normal S2, Irregular Rate, Murmur Abdomen: Bowel Sounds Present, Soft, Non Tender, Distended - Since mild ascites Extremities: No edema, Capillary Refill Less than 3 Seconds Skin: No rashes, No breakdown Musculoskeletal: No Tenderness to Palpation of Joints or Extremities, Arthritic Changes Neurological: Cranial nerves II-XII grossly intact, Deep Tendon Reflexes 2+/4 and Symmetrical, Neuro grossly intact Psych/Mental Status: Normal Affect, Appropriate Microbiology Past 72 Hours 02/19/19 14:33 Sputum, Expectorated/Coughed Gram Stain - Final 02/19/19 14:33 Sputum, Expectorated/Coughed Respiratory Culture - Final Laboratory Results 02/21/19 16:22: POC Glucose 130 H 02/21/19 21:41: POC Glucose 167 H 02/22/19 06:47: POC Glucose 118 H 02/22/19 10:45: Sodium 140, Potassium 3.6, Chloride 101, Carbon Dioxide 33.0 H, Anion Gap 6, BUN 30 H, Creatinine 1.75 H, Estim Creat Clear Calc 31.90, Est GFR (MDRD) Af Amer 49 L, Est GFR (MDRD) Non-Af 40 L, BUN/Creatinine Ratio 17.1, Glucose 121 H, Calcium 8.8, Magnesium 1.9 02/22/19 11:16: POC Glucose 139 H Current Medications Acetaminophen (Tylenol) 650 mg PO Q6H PRN PRN PRN Reason: Pain Score 1-3/Temp > 100.7 F Acetylcysteine (Mucomyst) 800 mg INHALATION Q12H.RT [facility] Last Admin: 02/22/19 06:55 Dose: Not Given Documented by: Albuterol Sulfate (Ventolin Aerosols) 2.5 mg INHALATION Q4H PRN PRN PRN Reason: Shortness of breath, wheezing Albuterol/Ipratropium (Duoneb) 3 ml INHALATION Q4H.RT [facility] Last Admin: 02/22/19 11:20 Dose: Not Given Documented by: Allopurinol (Zyloprim) 300 mg PO DAILYCM [facility] Last Admin: 02/22/19 08:26 Dose: 300 mg Documented by: Amiodarone HCl (Cordarone) 200 mg PO BID [facility] Last Admin: 02/22/19 10:38 Dose: 200 mg Documented by: Apixaban (Eliquis) 2.5 mg PO BID [facility] Last Admin: 02/22/19 10:35 Dose: 2.5 mg Documented by: Bethanechol Chloride (Bethanechol Chloride) 50 mg PO BID [facility] Last Admin: 02/22/19 10:35 Dose: 50 mg Documented by: Calcitriol (Rocaltrol) 0.25 mcg PO QHS [facility] Last Admin: 02/21/19 21:37 Dose: 0.25 mcg Documented by: Colchicine (Colchicine) 0.6 mg PO DAILY PRN PRN PRN Reason: gout flare Dextrose (D50w Syringe) 0 gm IV X1 PRN; Protocol PRN Reason: Hypoglycemia Diltiazem HCl (Cardizem Cd) 120 mg PO Q12 [facility] Last Admin: 02/22/19 10:39 Dose: Not Given Documented by: Doxazosin Mesylate (Cardura) 4 mg PO QHS [facility] Last Admin: 02/21/19 21:36 Dose: 4 mg Documented by: Ergocalciferol (Vitamin D) 50,000 unit PO WE [facility] Finasteride (Proscar) 5 mg PO DAILY@2200 [facility] Last Admin: 02/21/19 21:36 Dose: 5 mg Documented by: Furosemide (Lasix) 40 mg PO DAILY [facility] Glucagon () 1 mg IM .X1 PRN PRN Reason: Hypoglycemia Guaifenesin (Mucinex) 1,200 mg PO BID [facility] Last Admin: 02/22/19 12:09 Dose: 1,200 mg Documented by: Sodium Chloride () 250 mls @ 15 mls/hr IV .[id number] PRN PRN Reason: Saline Flush Insulin Human Lispro (Humalog Kwikpen (Bkc)) 0 unit SC TIDAC [facility]; Protocol Last Admin: 02/22/19 11:24 Dose: Not Given Documented by: Lisinopril (Zestril) 2.5 mg PO DAILY [facility] Last Admin: 02/22/19 10:41 Dose: Not Given Documented by: Melatonin (Melatonin) 3 mg PO QHS PRN PRN PRN Reason: INSOMNIA Last Admin: 02/20/19 23:56 Dose: 3 mg Documented by: Metoprolol Tartrate (Lopressor (Beta Fiordaliza)) 100 mg PO BID [facility] Last Admin: 02/22/19 12:09 Dose: 100 mg Documented by: Nutritional Formula (Lactose Free) (Glucerna Shake) 60 ml PO TIDCM [facility] Last Admin: 02/22/19 11:24 Dose: Not Given Documented by: Nystatin (Mycostatin Powder) 1 applic TOPICAL BID [facility]; Protocol Last Admin: 02/22/19 10:36 Dose: 1 applicatio Documented by: Ondansetron HCl (Zofran) 4 mg IV Q8H PRN PRN PRN Reason: NAUSEA/VOMITING Oxycodone HCl (Oxyir) 5 mg PO Q4H PRN PRN PRN Reason: Pain Score 4-10/10 Potassium Chloride (K-Dur) 20 meq PO BIDCM [facility] Last Admin: 02/22/19 08:26 Dose: 20 meq Documented by: Sodium Chloride () 10 - 40 ml IV UD PRN PRN Reason: SALINE FLUSH Last Admin: 02/21/19 17:35 Dose: 10 ml Documented by: Throat Lozenges (Cepacol Sore Throat Lozenge) 1 lozenge MUCOUS MEM Q2H PRN PRN PRN Reason: COUGH Last Admin: 02/20/19 22:57 Dose: 1 lozenge Documented by: STROKE Vital Signs/Narrative: Vital Signs Temp Pulse Resp BP Pulse Ox 02/22/19 13:48 97.2 F L 82 18 92/52 L 92 02/22/19 12:09 84 02/22/19 12:00 97.3 F L 84 16 99/59 L 94 02/22/19 11:00 85 16 95/56 L 95 Medical Necessity - Tobacco Use Smoking Status: Never smoker Tobacco Use: Cigarettes, Cigars Assessment/Plan All Active Problems (Last Updated 02/18/19 @ 08:31 by Radhames Quach MD) HFrEF (heart failure with reduced ejection fraction) (Acute) NSTEMI (non-ST elevated myocardial infarction) (Acute) This is a 78 years old male patient presented to the emergency room because of worsening shortness of breath, also complained of mild sinus congestion, rhinorrhea, cough and sore throat and he was admitted for acute on chronic systolic CHF. #1 acute on chronic systolic CHF, biventricular systolic failure: Patient is being admitted on PCU. Patient has good urine output. Patient feels improvement in shortness of breath and leg edema. Respiratory panel for viruses were negative. EKG revealed A. fib, ST segment depression in leads V4, V5 and V6 which are chronic, no acute ischemic changes. Troponin is borderline elevated and flat. 2D echocardiogram revealed ejection fraction of 30 to 35%. Mildly dilated RV with moderate global right ventricle systolic dysfunction. LA moderately enlarged RA moderately enlarged. Patient was seen by electronic component processor. On medical management. Lisinopril 2.5 mg daily. On hydralazine and isosorbide mononitrate. 02/21/2019: Patient is more short of breath. A. fib with RVR initially started on Cardizem drip which is changed to amiodarone drip by electronic component processor. Rate is controlled. Abdominal right upper quadrant sonogram was done which shows normal echogenicity of contour of liver. Did not show up any ascites clinically it seems ascites. 02/22/2019: Shortness of breath is better. RVR is controlled on IV amiodarone drip which is being transitioned to oral amiodarone. Mild hypotension antihypertensive medications held. #2 probable non-ST elevation DC: Secondary to #1. Troponin is borderline elevated and flat. Patient having chest pain. EKG showed no acute ischemic changes. Continue Eliquis and metoprolol. Recommended coronary invasive assessment in future when kidney function is stabilized and heart failure is optimized. #3 CAD status post CABG: continue IV diuresis, continue Eliquis, metoprolol. #4 chronic atrial fibrillation: Rate is controlled, continue Cardizem and metoprolol for rate control, continue Eliquis for anticoagulation. 02/21: Patient went into A. fib with RVR. Rate is controlled. 02/22: Patient is still in A. fib. urban renewal manager PVCs and pulses bigeminy. #5 hypertension: Blood pressure stable, continue Lasix, metoprolol. 02/22: Blood pressure systolic in 90s. #6 benign prostatic hypertrophy: Continue Cardura and Proscar. #7 stage III chronic kidney disease with mild hypokalemia: Baseline creatinine has been around 1.3 to 1.8 mg/dL. Potassium replaced. 02/21/2029: CKD stage III: 18 is still at the baseline although went up to about 1.8. Rn Or Lpn has been consulted. Renal ultrasound ordered. Blood pressure controlled. Avoid nephrotoxins and overdiuresis. 02/22: BUN/creatinine 30/1.75: Creatinine is still on baseline. Okay for lisinopril but it is currently held for hypotension. #8 chronic respiratory failure, mainly secondary to biventricular heart failure: On home oxygen mainly at night at 2 L. Currently on 2 L. 02/22: Patient has mild bronchitis symptoms with cough unable to expectorate. Mucinex added. Respiratory panel is negative. Sputum culture shows 1+ gram- positive cocci in clusters consistent with mixed normal respiratory terra. repeat chest x-ray ordered #9 DVT prophylaxis: Continue Eliquis. Microbiology Past 72 Hours 02/19/19 14:33 Sputum, Expectorated/Coughed Gram Stain - Final 02/19/19 14:33 Sputum, Expectorated/Coughed Respiratory Culture - Final Laboratory Results 02/21/19 16:22: POC Glucose 130 H 02/21/19 21:41: POC Glucose 167 H 02/22/19 06:47: POC Glucose 118 H 02/22/19 10:45: Sodium 140, Potassium 3.6, Chloride 101, Carbon Dioxide 33.0 H, Anion Gap 6, BUN 30 H, Creatinine 1.75 H, Estim Creat Clear Calc 31.90, Est GFR (MDRD) Af Amer 49 L, Est GFR (MDRD) Non-Af 40 L, BUN/Creatinine Ratio 17.1, Glucose 121 H, Calcium 8.8, Magnesium 1.9 02/22/19 11:16: POC Glucose 139 H Active Medications Acetaminophen (Tylenol) 650 mg PO Q6H PRN PRN PRN Reason: Pain Score 1-3/Temp > 100.7 F Acetylcysteine (Mucomyst) 800 mg INHALATION Q12H.RT [facility] Last Admin: 02/22/19 06:55 Dose: Not Given Documented by: Albuterol Sulfate (Ventolin Aerosols) 2.5 mg INHALATION Q4H PRN PRN PRN Reason: Shortness of breath, wheezing Albuterol/Ipratropium (Duoneb) 3 ml INHALATION Q4H.RT [facility] Last Admin: 02/22/19 11:20 Dose: Not Given Documented by: Allopurinol (Zyloprim) 300 mg PO DAILYCM [facility] Last Admin: 02/22/19 08:26 Dose: 300 mg Documented by: Amiodarone HCl (Cordarone) 200 mg PO BID [facility] Last Admin: 02/22/19 10:38 Dose: 200 mg Documented by: Apixaban (Eliquis) 2.5 mg PO BID [facility] Last Admin: 02/22/19 10:35 Dose: 2.5 mg Documented by: Bethanechol Chloride (Bethanechol Chloride) 50 mg PO BID [facility] Last Admin: 02/22/19 10:35 Dose: 50 mg Documented by: Calcitriol (Rocaltrol) 0.25 mcg PO QHS [facility] Last Admin: 02/21/19 21:37 Dose: 0.25 mcg Documented by: Colchicine (Colchicine) 0.6 mg PO DAILY PRN PRN PRN Reason: gout flare Dextrose (D50w Syringe) 0 gm IV X1 PRN; Protocol PRN Reason: Hypoglycemia Diltiazem HCl (Cardizem Cd) 120 mg PO Q12 [facility] Last Admin: 02/22/19 10:39 Dose: Not Given Documented by: Doxazosin Mesylate (Cardura) 4 mg PO QHS [facility] Last Admin: 02/21/19 21:36 Dose: 4 mg Documented by: Ergocalciferol (Vitamin D) 50,000 unit PO WE [facility] Finasteride (Proscar) 5 mg PO DAILY@2200 [facility] Last Admin: 02/21/19 21:36 Dose: 5 mg Documented by: Furosemide (Lasix) 40 mg PO DAILY [facility] Glucagon () 1 mg IM .X1 PRN PRN Reason: Hypoglycemia Guaifenesin (Mucinex) 1,200 mg PO BID [facility] Last Admin: 02/22/19 12:09 Dose: 1,200 mg Documented by: Sodium Chloride () 250 mls @ 15 mls/hr IV .[id number] PRN PRN Reason: Saline Flush Insulin Human Lispro (Humalog Kwikpen (Bkc)) 0 unit SC TIDAC [facility]; Protocol Last Admin: 02/22/19 11:24 Dose: Not Given Documented by: Lisinopril (Zestril) 2.5 mg PO DAILY [facility] Last Admin: 02/22/19 10:41 Dose: Not Given Documented by: Melatonin (Melatonin) 3 mg PO QHS PRN PRN PRN Reason: INSOMNIA Last Admin: 02/20/19 23:56 Dose: 3 mg Documented by: Metoprolol Tartrate (Lopressor (Beta Fiordaliza)) 100 mg PO BID [facility] Last Admin: 02/22/19 12:09 Dose: 100 mg Documented by: Nutritional Formula (Lactose Free) (Glucerna Shake) 60 ml PO TIDCM [facility] Last Admin: 02/22/19 11:24 Dose: Not Given Documented by: Nystatin (Mycostatin Powder) 1 applic TOPICAL BID [facility]; Protocol Last Admin: 02/22/19 10:36 Dose: 1 applicatio Documented by: Ondansetron HCl (Zofran) 4 mg IV Q8H PRN PRN PRN Reason: NAUSEA/VOMITING Oxycodone HCl (Oxyir) 5 mg PO Q4H PRN PRN PRN Reason: Pain Score 4-10/10 Potassium Chloride (K-Dur) 20 meq PO BIDCM [facility] Last Admin: 02/22/19 08:26 Dose: 20 meq Documented by: Sodium Chloride () 10 - 40 ml IV UD PRN PRN Reason: SALINE FLUSH Last Admin: 02/21/19 17:35 Dose: 10 ml Documented by: Throat Lozenges (Cepacol Sore Throat Lozenge) 1 lozenge MUCOUS MEM Q2H PRN PRN PRN Reason: COUGH Last Admin: 02/20/19 22:57 Dose: 1 lozenge Documented by: Code Visit Inpatient E&M: [id number] Subs Hosp L3
--- NOTE | 2019-02-22 14:26 | RAD_ITS ---
STUDY: X-RAY CHEST REASON FOR EXAM: Male, 78 years old. Shortness of breath TECHNIQUE: PA and lateral views of the chest. COMPARISON: 02/19/2019. FINDINGS: Cardiac silhouette increased. Pulmonary vascularity is increased. Aorta unremarkable. Median sternotomy wires are noted. No focal airspace consolidation. No pleural effusions. Upper abdomen unremarkable. Osseous structures intact. No pneumothorax. RAD/Chest PA and Lateral IMPRESSION: CHF/fluid overload, similar to prior. Electronically Signed: Vito Stuart, at 20:39 EST Tel , Service support ,
[2019-02-22 17:16] LABS: Bedside Glucose 121 mg/dL (70-110)
[2019-02-22] MEDS: Doxazosin 4 MG Tablet PO (22:32)
[2019-02-22] MEDS: Finasteride 5 MG Tablet PO (22:32)
[2019-02-22] MEDS: Calcitriol 0.25 MCG Capsule PO (22:32)
[2019-02-22 22:41] LABS: Bedside Glucose 108 mg/dL (70-110)
[2019-02-23] VITALS (15 sets, daily range): BP systolic 92–112; BP diastolic 49–77; PULSE 60–116; RESP 16–22; TEMP 36.5–37.1; O2SAT 93–97
[2019-02-23 06:58] LABS: Absolute Lymphocyte Count 1.08 X10^3/uL (0.83-4.51); Absolute Neutrophil Count 7.1 X10^3/uL (2.0-7.7); Basophil# 0.03 X10^3/uL; Basophil% 0.3 % (0-1); Eosinophil# 0.13 X10^3/uL; Eosinophils% 1.4 % (0-5); Hematocrit 41.6 % (40-54); Hemoglobin 13.2 g/dL (13.0-16.5); Lymphocyte # 1.08 X10^3/ul (4.0); Lymphocyte % 11.4 % (19-41); Mean Corp Hgb Conc 31.7 g/dL (32-36); Mean Corpuscular Hgb 29.9 pg (27.0-32.0); Mean Corpuscular Volume 94.3 fL (80-94); Mean Platelet Vol. 10.6 fl (6.2-12.0); Monocyte% 10.5 % (0-10); NRBC Flagged by Analyzer 0 % (0-5); Neutrophil # 7.12 X10^3/uL (2.7-7.7); Neutrophil % 74.9 % (47-70); Platelet Count 220 K/mm3 (150-450); RBC Distribution Width CV 13.3 % (11.6-14.6); RBC Distribution Width SD 45.5 fl (35.1-43.9); Red Blood Count 4.41 M/mm3 (4.6-6.2); White Blood Count 9.5 K/mm3 (4.4-11.0)
[2019-02-23 07:05] LABS: Bedside Glucose 100 mg/dL (70-110)
[2019-02-23 07:27] LABS: Anion Gap 7 (5-15); BUN 28 mg/dL (7-18); BUN/Creat Ratio 16.6 RATIO (10-20); Calcium,Total 9.1 mg/dL (8.5-10.1); Chloride 102 mmol/L (98-107); Creatinine, Serum 1.69 mg/dL (0.70-1.30); EST Glomerular Filtration Rate 42 mL/min (>60); Est Glom Filt Rate - Afr Amer 51 mL/min (>60); Estimated Creatinine Clearance 33.03 ml/min; Glucose 106 mg/dL (74-106); Potassium 3.8 mmol/L (3.5-5.1); Sodium Level 141 mmol/L (136-145)
--- NOTE | 2019-02-23 08:51 | PN.CARD_ITS ---
Subjectve: Patient appears to be doing better this morning. Not as tachypneic. Objective: Vital Signs Temp Pulse Resp BP Pulse Ox 98.1 F 116 H 18 108/52 L 95 02/23/19 04:28 02/23/19 07:00 02/23/19 04:28 02/23/19 04:28 02/23/19 04:28 Oxygen Flow Rate (L/min) 2 Oxygen Delivery Method Nasal Cannula Weight: 208 lb 5.389 oz Body Mass Index (BMI) 37.5 Finger Stick Blood Glucose 143 Intake and Output for Last 24 Hours 02/21/19 02/22/19 02/23/19 23:59 23:59 23:59 Intake Total 2038.47 / 2054.17 1096.35 / 1216.35 120 / 120 Output Total 1225 / 1225 187 / 2049 475 / 475 Balance 813.47 / 830.17 -778.65 / -833.65 -355 / -355 General: Awake, Alert, Oriented x 3 HEENT: PERRL, EOMI, Sclera Non Icteric Neck: Supple, Good ROM, No Lymph Node Enlargement Lungs: Diminished Rolo Bases Cardiovascular: Irregular Rhythm, Normal S1, Normal S2, No Murmurs, No Rubs, No Gallops Vascular: No Carotid Bruits, Normal Femoral Pulses, Normal Radial Pulses, Normal Dorsalis Pedal Pulse, Normal Posterior Tibial Pulses Abdomen: Bowel Sounds Present, Soft, Non Tender, No HSM, No Organomegaly Extremities: No Cyanosis, No Clubbing, No edema Musculoskeletal: No Erythema Skin: No Rashes Lymphatic: No Lymph Node Enlargement Neurological: No Focal Motor or Sensory Deficit Psych/Mental Status: Appropriate 02/22/19 10:45: Sodium 140, Potassium 3.6, Chloride 101, Carbon Dioxide 33.0 H, Anion Gap 6, BUN 30 H, Creatinine 1.75 H, Est GFR (MDRD) Af Amer 49 L, Est GFR (MDRD) Non-Af 40 L, BUN/Creatinine Ratio 17.1, Glucose 121 H, Calcium 8.8, Magnesium 1.9 02/23/19 06:35: WBC 9.5, RBC 4.41 L, Hgb 13.2, Hct 41.6, MCV 94.3 H, MCH 29.9, MCHC 31.7 L, Plt Count 220, MPV 10.6, Immature Gran % (Auto) 1.500 H, Neut % (Auto) 74.9 H, Lymph % (Auto) 11.4 L, Rains % (Auto) 10.5 H, Eos % (Auto) 1.4, Baso % (Auto) 0.3, Absolute Neuts (auto) 7.1, Nucleated RBC % 0 02/23/19 06:35: Sodium 141, Potassium 3.8, Chloride 102, Carbon Dioxide 32.0, Anion Gap 7, BUN 28 H, Creatinine 1.69 H, Est GFR (MDRD) Af Amer 51 L, Est GFR (MDRD) Non-Af 42 L, BUN/Creatinine Ratio 16.6, Glucose 106, Calcium 9.1 Rhythm: EKG: ECHO: Stress Test: Cardiac Cath: PCI: CT Surgery: Holter monitor: EPS: PPM: CXR: Chest CT Scan: Medical Necessity - Tobacco Use Smoking Status: Never smoker Tobacco Use: Cigarettes, Cigars Assessment/Plan 1. Acute on chronic congestive heart failure exacerbation. Echocardiogram showed evidence of decline in the left ventricular ejection fraction. His previous echocardiogram had demonstrated an ejection fraction of approximately 40% in its now down to the 35% range. T * We will switch from Toprol-XL to metoprolol twice daily. Possible culprits for depressed left ventricular ejection fraction might be progression of coronary atherosclerosis, or simply rate related cardiomyopathy in the setting of atrial fibrillation with suboptimally controlled ventricular response. * May eventually need evaluation of his coronary anatomy. * He will need daily Lasix and appears to be doing much better 2. History of chronic atrial fibrillation. His ventricular response rate does not appear to be very well controlled. He has been chronically anticoagulated and he will remain on the metoprolol and I would recommend adding amiodarone to his regimen for rate control but not cardioversion. He has failed to DC cardioversion in the past. * We will also try and add p.o. diltiazem On anticoagulation with Eliquis 3. History of coronary artery disease. No evidence of acute coronary syndrome. He does have a history of left internal mammary artery to the left anterior descending artery, saphenous vein graft to posterior descending artery, and saphenous vein graft to the circumflex artery. Troponin elevation is just borderline in the setting of acute CHF exacerbation. * We will continue with adjustment of beta blockers. * He did have a stress test about 2 years ago which did not demonstrate any evidence of ischemia. * 4. Hypertension * His blood pressure currently appears to be under good control and so I would not make any major changes. * * * Overall he appears to be doing much better. The plan will be to continue his current medical therapy. He may require to be in a transitional care unit. * Thank you for allowing me to participate in the care of your patient. Please don't hesitate to call if any issues arise
[2019-02-23] MEDS: BETHANECHOL CHLORIDE 25 MG TABLET 50 MG PO ×2 (09:24→21:04)
[2019-02-23] MEDS: Metoprolol Tartrate 100 MG Tablet PO ×2 (09:24→21:04)
[2019-02-23] MEDS: guaiFENesin 1,200 MG Tablet 1200 MG PO ×2 (09:24→21:09)
[2019-02-23] MEDS: Furosemide 40 MG Tablet PO (09:25)
[2019-02-23] MEDS: Allopurinol 300 MG Tablet PO (09:25)
[2019-02-23] MEDS: Amiodarone 200 MG Tablet PO ×2 (09:25→21:04)
[2019-02-23] MEDS: Lisinopril 2.5 MG Tablet PO (09:26)
[2019-02-23] MEDS: dilTIAZem CD 120 MG Capsule PO (09:26)
[2019-02-23] MEDS: Nystatin Powder 15gm Bottle 1 APPLIC TOPICAL ×2 (09:27→21:04)
[2019-02-23] MEDS: APIXABAN 2.5 MG TABLET PO ×2 (09:27→21:04)
--- NOTE | 2019-02-23 10:35 | PCM.DC ---
- Discharge Diagnoses Current Active Problems: Current Active and Chronic Problems (Last Updated 02/18/19 @ 08:31 by Radhames Quach MD) HFrEF (heart failure with reduced ejection fraction) (Acute) NSTEMI (non-ST elevated myocardial infarction) (Acute) You will use the following diet at home:: Cardiac Your food should be the consistency of: Regular Your liquids should be the consistency of: Regular/Thin Discharge Activity: May Not Drive Weight Bearing Status: Weight bearing as tolerated Call your doctor if you observe: Fever of 101 or Higher, Inability to urinate, Inability to have a bowel movement, Shortness of breath, Dizziness, Fainting spells, Swelling in the ankles, Chest pain, Increased palpitations (irregular heartbeat), Uncontrolled pain Allergies/Adverse Reactions: Allergies hydrocodone [From Vicodin] Allergy (Severe, Verified 02/17/19 19:35) Rash aspirin Allergy (Intermediate, Verified 02/17/19 17:22) Swelling around eyes pseudoephedrine [From Sudafed] Adverse Reaction (Severe, Verified 02/17/19 17:22) Myalgias & flu like symptoms simvastatin [From Zocor] Adverse Reaction (Severe, Verified 02/17/19 17:22) Myalgias Sulfa (Sulfonamide Antibiotics) Adverse Reaction (Mild, Verified 02/17/19 17:22) Severe Pain in joints Medications to take at Discharge Finasteride [Proscar] 5 mg PO QHS 04/18/15 Bethanechol Chloride [Urecholine] 50 mg PO BID 12/08/16 colchicine 0.6 mg tablet 0.6 mg PO QODAY tab 01/13/18 apixaban 2.5 mg tablet 2.5 mg PO BID #180 tab 01/31/19 Allopurinol 300 mg PO DAILY 02/17/19 Calcitriol 0.25 mcg PO QHS 02/17/19 Calcitriol 0.5 mcg PO DAILY 02/17/19 Doxazosin Mesylate [Cardura Xl] 4 mg PO QHS 02/17/19 Ergocalciferol [Vitamin D] 50,000 unit PO WE 02/17/19 Amiodarone HCl [Cordarone] 200 mg PO BID #60 tab 02/23/19 Diltiazem CD [Cardizem CD] 120 mg PO Q12 #60 cap 11/21/19 Furosemide 40 mg PO DAILY #30 tab 02/23/19 Guaifenesin [Mucinex] 1,200 mg PO BID #14 tab 02/23/19 Lisinopril [Zestril] 2.5 mg PO DAILY #30 tab 02/23/19 Metoprolol Tartrate [Lopressor (beta evelin)] 100 mg PO BID #60 tab 02/23/19 Nystatin Powder [Mycostatin Powder] 1 applic TOPICAL BID #1 bottle 02/23/19 Potassium Chloride [K-Dur] 20 meq PO BIDCM #60 tab 02/23/19 The following prescriptions were given: Diltiazem CD [Cardizem CD] 120 mg PO Q12 #60 cap Transmission Status: Pending to [facility] [place] [address] Amiodarone HCl [Cordarone] 200 mg PO BID #60 tab Transmission Status: Pending to [facility] Furosemide 40 mg PO DAILY #30 tab Transmission Status: Pending to [facility] Potassium Chloride [K-Dur] 20 meq PO BIDCM #60 tab Transmission Status: Pending to [facility] Metoprolol Tartrate [Lopressor (beta evelin)] 100 mg PO BID #60 tab Transmission Status: Pending to [facility] [place] [address] Guaifenesin [Mucinex] 1,200 mg PO BID #14 tab Transmission Status: Pending to [facility] Nystatin Powder [Mycostatin Powder] 1 applic TOPICAL BID #1 bottle Transmission Status: Pending to [facility] [place] [address] Lisinopril [Zestril] 2.5 mg PO DAILY #30 tab Transmission Status: Pending to [facility] [place] [address] Primary Care Physician: Vicki Trejo DO [Primary Care Provider] - Please follow up with your Primary Care Physician in: in 1-2 weeks Test Results: Test results from this visit will be discussed in further detail at your follow-up appointment, if applicable. Please Follow Up With: Vicki Trejo DO Please Follow Up With: Jimi Greenfield MD When: in 2-3 weeks Please Follow Up With: Gonsalo Schneider MD When: in 2 weeks for follow up Kidney function
[2019-02-23] MEDS: Ipratropium/Albuterol Sulfate 3 ML AMPUL.NEB INHALATION ×2 (11:08→20:27)
--- NOTE | 2019-02-23 11:30 | DCINST_ITS ---
- Discharge Diagnoses Current Active Problems: Current Active and Chronic Problems (Last Updated 02/18/19 @ 08:31 by Radhames Quach MD) HFrEF (heart failure with reduced ejection fraction) (Acute) NSTEMI (non-ST elevated myocardial infarction) (Acute) Allergies/Adverse Reactions: Allergies hydrocodone [From Vicodin] Allergy (Severe, Verified 02/17/19 19:35) Rash aspirin Allergy (Intermediate, Verified 02/17/19 17:22) Swelling around eyes pseudoephedrine [From Sudafed] Adverse Reaction (Severe, Verified 02/17/19 17:22) Myalgias & flu like symptoms simvastatin [From Zocor] Adverse Reaction (Severe, Verified 02/17/19 17:22) Myalgias Sulfa (Sulfonamide Antibiotics) Adverse Reaction (Mild, Verified 02/17/19 17:22) Severe Pain in joints Medications to take at Discharge Finasteride [Proscar] 5 mg PO QHS 04/18/15 Bethanechol Chloride [Urecholine] 50 mg PO BID 12/08/16 colchicine 0.6 mg tablet 0.6 mg PO QODAY tab 01/13/18 apixaban 2.5 mg tablet 2.5 mg PO BID #180 tab 01/31/19 Allopurinol 300 mg PO DAILY 02/17/19 Calcitriol 0.25 mcg PO QHS 02/17/19 Calcitriol 0.5 mcg PO DAILY 02/17/19 Doxazosin Mesylate [Cardura Xl] 4 mg PO QHS 02/17/19 Ergocalciferol [Vitamin D] 50,000 unit PO WE 02/17/19 Amiodarone HCl [Cordarone] 200 mg PO BID #60 tab 02/23/19 Diltiazem CD [Cardizem CD] 120 mg PO Q12 #60 cap 02/23/19 Furosemide 40 mg PO DAILY #30 tab 02/23/19 Guaifenesin [Mucinex] 1,200 mg PO BID #14 tab 02/23/19 Lisinopril [Zestril] 2.5 mg PO DAILY #30 tab 02/23/19 Metoprolol Tartrate [Lopressor (beta evelin)] 100 mg PO BID #60 tab 02/23/19 Nystatin Powder [Mycostatin Powder] 1 applic TOPICAL BID #1 bottle 11/21/19 Potassium Chloride [K-Dur] 20 meq PO BIDCM #60 tab 02/23/19 The following prescriptions were given: Diltiazem CD [Cardizem CD] 120 mg PO Q12 #60 cap Transmission Status: Pending to [facility] [place] [address] Amiodarone HCl [Cordarone] 200 mg PO BID #60 tab Transmission Status: Pending to [facility] [place] [address] Furosemide 40 mg PO DAILY #30 tab Transmission Status: Pending to [facility] Potassium Chloride [K-Dur] 20 meq PO BIDCM #60 tab Transmission Status: Pending to [facility] [place] [address] Metoprolol Tartrate [Lopressor (beta evelin)] 100 mg PO BID #60 tab Transmission Status: Pending to [facility] [place] [address] Guaifenesin [Mucinex] 1,200 mg PO BID #14 tab Transmission Status: Pending to [facility] [place] [address] Nystatin Powder [Mycostatin Powder] 1 applic TOPICAL BID #1 bottle Transmission Status: Pending to [facility] [place] [address] Lisinopril [Zestril] 2.5 mg PO DAILY #30 tab Transmission Status: Pending to [facility] [place] [address] Primary Care Physician: Vicki Trejo DO [Primary Care Provider] - Test Results: Test results from this visit will be discussed in further detail at your follow- up appointment, if applicable. Please Follow Up With: Vicki Trejo DO Please Follow Up With: Jimi Greenfield MD
[2019-02-23 12:00] LABS: Bedside Glucose 120 mg/dL (70-110)
--- NOTE | 2019-02-23 12:11 | DS.PCM_ITS ---
Discharge Date and Diagnosis - Problem List Patient Problems: Active and Suspected Problems (Last Updated 02/18/19 @ 08:31 by Radhames Quach MD) HFrEF (heart failure with reduced ejection fraction) (Acute) NSTEMI (non-ST elevated myocardial infarction) (Acute) Date of Admission: 02/17/19 Date of Discharge: 02/23/19 - Primary Discharge Diagnosis Active and Suspected Problems (Last Updated 02/18/19 @ 08:31 by Radhames darby MD) HFrEF (heart failure with reduced ejection fraction) (Acute) NSTEMI (non-ST elevated myocardial infarction) (Acute) - Secondary Discharge Diagnosis Chronic Problems (Last Updated 02/18/19 @ 08:31 by Radhames Quach MD) 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) CABG X 3: VILLEDA-LAD, SVG-LCx, SVG-RPDA 10/10/2003 H/O coronary artery bypass surgery (Chronic 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/03) CABG X 3: VILLEDA-LAD, SVG-LCx, SVG-RPDA 10/10/2003 Old inferior wall myocardial infarction (Chronic) Ischemic cardiomyopathy (Chronic) Longstanding persistent atrial fibrillation (Chronic) Acute on chronic systolic (congestive) heart failure (Chronic) CVA (cerebral vascular accident) (Chronic) lower left cerebellar hemisphere Essential (primary) hypertension (Chronic) Hyperlipidemia (Chronic) Hospital Course and Treatment Operations: None Summary of Care Provided: The patient is a 78 year old M [] Patient Problems: Active and Suspected Problems (Last Updated 02/18/19 @ 08:31 by Radhames Quach MD) HFrEF (heart failure with reduced ejection fraction) (Acute) NSTEMI (non-ST elevated myocardial infarction) (Acute) - Physical Exam Vitals/I&O's: Vital Signs Temp Pulse Resp BP Pulse Ox 98.7 F 109 H 16 92/55 L 94 02/23/19 11:55 02/23/19 11:55 02/23/19 11:55 02/23/19 11:55 02/23/19 11:55 Oxygen Flow Rate (L/min) 2 Oxygen Delivery Method Nasal Cannula Weight: 208 lb 5.389 oz Body Mass Index (BMI) 37.5 Finger Stick Blood Glucose 143 Intake and Output for Last 24 Hours 02/21/19 02/22/19 02/23/19 23:59 23:59 23:59 Intake Total 8.47 / 2054.17 1096.35 / 1216.35 120 / 120 Output Total 1225 / 1225 1874 / 2049 675 / 675 Balance 813.47 / 830.17 -778.65 / -833.65 -555 / -555 Microbiology Past 72 Hours 02/19/19 14:33 Sputum, Expectorated/Coughed Gram Stain - Final 02/19/19 14:33 Sputum, Expectorated/Coughed Respiratory Culture - Final Laboratory Results 02/22/19 17:07: POC Glucose 121 H 02/22/19 22:27: POC Glucose 108 02/23/19 06:35: WBC 9.5, RBC 4.41 L, Hgb 13.2, Hct 41.6, MCV 94.3 H, MCH 29.9, MCHC 31.7 L, RDW Std Deviation 45.5 H, RDW Coeff of Francis 13.3, Plt Count 220, MPV 10.6, Immature Gran % (Auto) 1.500 H, Neut % (Auto) 74.9 H, Lymph % (Auto) 11.4 L, [place] % (Auto) 10.5 H, Eos % (Auto) 1.4, Baso % (Auto) 0.3, Absolute Neuts (auto) 7.1, Absolute Lymphs (auto) 1.08, Nucleated RBC % 0 02/23/19 06:35: Sodium 141, Potassium 3.8, Chloride 102, Carbon Dioxide 32.0, A nion Gap 7, BUN 28 H, Creatinine 1.69 H, Estim Creat Clear Calc 33.03, Est GFR (MDRD) Af Amer 51 L, Est GFR (MDRD) Non-Af 42 L, BUN/Creatinine Ratio 16.6, Glucose 106, Calcium 9.1 02/23/19 06:57: POC Glucose 100 02/23/19 11:53: POC Glucose 120 H Current Medications Acetaminophen (Tylenol) 650 mg PO Q6H PRN PRN PRN Reason: Pain Score 1-3/Temp > 100.7 F Acetylcysteine (Mucomyst) 800 mg INHALATION Q12H.RT [facility] Last Admin: 02/23/19 07:47 Dose: Not Given Documented by: Albuterol Sulfate (Ventolin Aerosols) 2.5 mg INHALATION Q4H PRN PRN PRN Reason: Shortness of breath, wheezing Albuterol/Ipratropium (Duoneb) 3 ml INHALATION Q4H.RT [facility] Last Admin: 02/23/19 11:08 Dose: 3 ml Documented by: Allopurinol (Zyloprim) 300 mg PO DAILYCM [facility] Last Admin: 02/23/19 09:25 Dose: 300 mg Documented by: Amiodarone HCl (Cordarone) 200 mg PO BID [facility] Last Admin: 02/23/19 09:25 Dose: 200 mg Documented by: Apixaban (Eliquis) 2.5 mg PO BID [facility] Last Admin: 02/23/19 09:27 Dose: 2.5 mg Documented by: Bethanechol Chloride (Bethanechol Chloride) 50 mg PO BID [facility] Last Admin: 02/23/19 09:24 Dose: 50 mg Documented by: Calcitriol (Rocaltrol) 0.25 mcg PO QHS [facility] Last Admin: 02/22/19 22:32 Dose: 0.25 mcg Documented by: Colchicine (Colchicine) 0.6 mg PO DAILY PRN PRN PRN Reason: gout flare Dextrose (D50w Syringe) 0 gm IV X1 PRN; Protocol PRN Reason: Hypoglycemia Diltiazem HCl (Cardizem Cd) 120 mg PO Q12 [facility] Last Admin: 02/23/19 09:26 Dose: 120 mg Documented by: Doxazosin Mesylate (Cardura) 4 mg PO QHS [facility] Last Admin: 02/22/19 22:32 Dose: 4 mg Documented by: Ergocalciferol (Vitamin D) 50,000 unit PO WE [facility] Last Admin: 02/22/19 22:43 Dose: 50,000 unit Documented by: Finasteride (Proscar) 5 mg PO DAILY@2200 [facility] Last Admin: 02/22/19 22:32 Dose: 5 mg Documented by: Furosemide (Lasix) 40 mg PO DAILY [facility] Last Admin: 02/23/19 09:25 Dose: 40 mg Documented by: Glucagon () 1 mg IM .X1 PRN PRN Reason: Hypoglycemia Guaifenesin (Mucinex) 1,200 mg PO BID [facility] Last Admin: 02/23/19 09:24 Dose: 1,200 mg Documented by: Sodium Chloride () 250 mls @ 15 mls/hr IV .[id number] PRN PRN Reason: Saline Flush Insulin Human Lispro (Humalog Francinepen (Bkc)) 0 unit SC TIDAC [facility]; Protocol Last Admin: 02/23/19 11:57 Dose: Not Given Documented by: Lisinopril (Zestril) 2.5 mg PO DAILY [facility] Last Admin: 02/23/19 09:26 Dose: 2.5 mg Documented by: Melatonin (Melatonin) 3 mg PO QHS PRN PRN PRN Reason: INSOMNIA Last Admin: 02/20/19 23:56 Dose: 3 mg Documented by: Metoprolol Tartrate (Lopressor (Beta Fiordaliza)) 100 mg PO BID [facility] Last Admin: 02/23/19 09:24 Dose: 100 mg Documented by: Nutritional Formula (Lactose Free) (Glucerna Shake) 60 ml PO TIDCM [facility] Last Admin: 02/23/19 11:57 Dose: Not Given Documented by: Nystatin (Mycostatin Powder) 1 applic TOPICAL BID [facility]; Protocol Last Admin: 02/23/19 09:27 Dose: 1 applicatio Documented by: Ondansetron HCl (Zofran) 4 mg IV Q8H PRN PRN PRN Reason: NAUSEA/VOMITING Oxycodone HCl (Oxyir) 5 mg PO Q4H PRN PRN PRN Reason: Pain Score 4-10/10 Potassium Chloride (K-Dur) 40 meq PO BIDCM [facility] Stop: 02/24/19 17:01 Last Admin: 02/23/19 09:26 Dose: 40 meq Documented by: Sodium Chloride () 10 - 40 ml IV UD PRN PRN Reason: SALINE FLUSH Last Admin: 02/21/19 17:35 Dose: 10 ml Documented by: Throat Lozenges (Cepacol Sore Throat Lozenge) 1 lozenge MUCOUS MEM Q2H PRN PRN PRN Reason: COUGH Last Admin: 02/20/19 22:57 Dose: 1 lozenge Documented by: Discharge Activity: May Not Drive Weight Bearing Status: Weight bearing as tolerated Call your doctor if you observe: Fever of 101 or Higher, Inability to urinate, Inability to have a bowel movement, Shortness of breath, Dizziness, Fainting spells, Swelling in the ankles, Chest pain, Increased palpitations (irregular heartbeat), Uncontrolled pain Home Medications: Medications to take at Discharge Finasteride [Proscar] 5 mg PO QHS 04/18/15 Bethanechol Chloride [Urecholine] 50 mg PO BID 12/08/16 colchicine 0.6 mg tablet 0.6 mg PO QODAY tab 01/13/18 apixaban 2.5 mg tablet 2.5 mg PO BID #180 tab 01/31/19 Allopurinol 300 mg PO DAILY 02/17/19 Calcitriol 0.25 mcg PO QHS 02/17/19 Calcitriol 0.5 mcg PO DAILY 02/17/19 Doxazosin Mesylate [Cardura Xl] 4 mg PO QHS 02/17/19 Ergocalciferol [Vitamin D] 50,000 unit PO WE 02/17/19 Amiodarone HCl [Cordarone] 200 mg PO BID #60 tab 02/23/19 Diltiazem CD [Cardizem CD] 120 mg PO Q12 #60 cap 02/23/19 Furosemide 40 mg PO DAILY #30 tab 02/23/19 Guaifenesin [Mucinex] 1,200 mg PO BID #14 tab 02/23/19 Lisinopril [Zestril] 2.5 mg PO DAILY #30 tab 02/23/19 Metoprolol Tartrate [Lopressor (beta fiordaliza)] 100 mg PO BID #60 tab 02/23/19 Nystatin Powder [Mycostatin Powder] 1 applic TOPICAL BID #1 bottle 02/23/19 Potassium Chloride [K-Dur] 20 meq PO BIDCM #60 tab 02/23/19 Following Prescrptions Were Given to Patient: Diltiazem CD [Cardizem CD] 120 mg PO Q12 #60 cap Transmission Status: Pending to [facility] Amiodarone HCl [Cordarone] 200 mg PO BID #60 tab Transmission Status: Pending to [facility] Furosemide 40 mg PO DAILY #30 tab Transmission Status: Pending to [facility] Potassium Chloride [K-Dur] 20 meq PO BIDCM #60 tab Transmission Status: Pending to [facility] Metoprolol Tartrate [Lopressor (beta fiordaliza)] 100 mg PO BID #60 tab Transmission Status: Pending to [facility] Guaifenesin [Mucinex] 1,200 mg PO BID #14 tab Transmission Status: Pending to [facility] Nystatin Powder [Mycostatin Powder] 1 applic TOPICAL BID #1 bottle Transmission Status: Pending to [facility] Lisinopril [Zestril] 2.5 mg PO DAILY #30 tab Transmission Status: Pending to [facility] Primary Care Physician: Vicki Trejo DO [Primary Care Provider] - Please follow up with your Primary Care Physician in: in 1-2 weeks Please Follow Up With: Vicki Trejo DO Please Follow Up With: Jimi Greenfield MD When: in 2-3 weeks Please Follow Up With: Gonsalo Schneider MD When: in 2 weeks for follow up Kidney function Medical Necessity - Tobacco Use Smoking Status: Never smoker Tobacco Use: Cigarettes, Cigars
--- NOTE | 2019-02-23 12:28 | CASEMGMT ---
This RN CM to room to discuss discharge planning with pt at this time. Pt is agreeable to [facility] and states he would like [facility] as he has had them in the past. Pt declined [facility] list at this time. Pt states that he would only like RN and not therapy at this time. Pt is also agreeable to [facility]N referral at this time and that they will not come in until [facility] complete, voices understanding. Call to Precious at [facility] and she states that they can take pt at this time and order placed for RN and SW at this time. Pt does state some concerns getting meals made and adamantly declines meals on wheels at this time. Brock TO aware , voices understanding. Pt states that he is currently on 2liters home oxygen at bedtime only at this time. Catracho KING aware that pt will need home oxygen testing prior to discharge. Call to [facility] to verify order at this time and per rep, she cannot find the order at this time but states that pt only has a concentrator at home and no portability. This RN CM to follow for home oxygen testing and new order to be faxed, if needed. Barbie KING CM
--- NOTE | 2019-02-23 13:24 | PCM.PROGNOTE ---
Patient Problems: Active and Suspected Problems (Last Updated 02/18/19 @ 08:31 by Radhames Quach MD) HFrEF (heart failure with reduced ejection fraction) (Acute) NSTEMI (non-ST elevated myocardial infarction) (Acute) Subjective: no c/o no sob/cp - Physical Exam Vitals/I&O's: Vital Signs Temp Pulse Resp BP Pulse Ox 98.7 F 109 H 16 92/55 L 94 02/23/19 11:55 02/23/19 11:55 02/23/19 11:55 02/23/19 11:55 02/23/19 11:55 Oxygen Flow Rate (L/min) 2 Oxygen Delivery Method Nasal Cannula Weight: 94.5 kg Body Mass Index (BMI) 37.5 Finger Stick Blood Glucose 143 Intake and Output for Last 24 Hours 02/21/19 02/22/19 02/23/19 23:59 23:59 23:59 Intake Total 8.47 / 2054. 1096.35 / 1216.35 120 / 120 Output Total 1225 / 1225 1874 / 0 675 / 675 Balance 813.47 / 830.17 -778.65 / -833.65 -555 / -555 General: Alert, Oriented x3, Cooperative HEENT: Atraumatic, PERRLA, EOMI, Normocephalic Neck: Supple, No JVD, Negative Carotid Bruits Lungs: Clear to auscultation, Normal air movement Cardiovascular: Regular rate, No murmurs Abdomen: Bowel Sounds Present, Soft, Non Tender, Obese Extremities: No edema, Capillary Refill Less than 3 Seconds Skin: No rashes, No breakdown Musculoskeletal: No Tenderness to Palpation of Joints or Extremities Neurological: Cranial nerves II-XII grossly intact Psych/Mental Status: Normal Affect, Appropriate Microbiology Past 72 Hours 02/19/19 14:33 Sputum, Expectorated/Coughed Gram Stain - Final 02/19/19 14:33 Sputum, Expectorated/Coughed Respiratory Culture - Final Laboratory Results 02/22/19 17:07: POC Glucose 121 H 02/22/19 22:27: POC Glucose 108 02/23/19 06:35: WBC 9.5, RBC 4.41 L, Hgb 13.2, Hct 41.6, MCV 94.3 H, MCH 29.9, MCHC 31.7 L, RDW Std Deviation 45.5 H, RDW Coeff of Francis 13.3, Plt Count 220, MPV 10.6, Immature Gran % (Auto) 1.500 H, Neut % (Auto) 74.9 H, Lymph % (Auto) 11.4 L, [place] % (Auto) 10.5 H, Eos % (Auto) 1.4, Baso % (Auto) 0.3, Absolute Neuts (auto) 7.1, Absolute Lymphs (auto) 1.08, Nucleated RBC % 0 02/23/19 06:35: Sodium 141, Potassium 3.8, Chloride 102, Carbon Dioxide 32.0, Anion Gap 7, BUN 28 H, Creatinine 1.69 H, Estim Creat Clear Calc 33.03, Est GFR (MDRD) Af Amer 51 L, Est GFR (MDRD) Non-Af 42 L, BUN/Creatinine Ratio 16.6, Glucose 106, Calcium 9.1 02/23/19 06:57: POC Glucose 100 02/23/19 11:53: POC Glucose 120 H Current Medications Acetaminophen (Tylenol) 650 mg PO Q6H PRN PRN PRN Reason: Pain Score 1-3/Temp > 100.7 F Acetylcysteine (Mucomyst) 800 mg INHALATION Q12H.RT [facility] Last Admin: 02/23/19 07:47 Dose: Not Given Documented by: Albuterol Sulfate (Ventolin Aerosols) 2.5 mg INHALATION Q4H PRN PRN PRN Reason: Shortness of breath, wheezing Albuterol/Ipratropium (Duoneb) 3 ml INHALATION Q4H.RT [facility] Last Admin: 02/23/19 11:08 Dose: 3 ml Documented by: Allopurinol (Zyloprim) 300 mg PO DAILYCM [facility] Last Admin: 02/23/19 09:25 Dose: 300 mg Documented by: Amiodarone HCl (Cordarone) 200 mg PO BID [facility] Last Admin: 02/23/19 09:25 Dose: 200 mg Documented by: Apixaban (Eliquis) 2.5 mg PO BID [facility] Last Admin: 02/23/19 09:27 Dose: 2.5 mg Documented by: Bethanechol Chloride (Bethanechol Chloride) 50 mg PO BID [facility] Last Admin: 02/23/19 09:24 Dose: 50 mg Documented by: Calcitriol (Rocaltrol) 0.25 mcg PO QHS [facility] Last Admin: 02/22/19 22:32 Dose: 0.25 mcg Documented by: Colchicine (Colchicine) 0.6 mg PO DAILY PRN PRN PRN Reason: gout flare Dextrose (D50w Syringe) 0 gm IV X1 PRN; Protocol PRN Reason: Hypoglycemia Diltiazem HCl (Cardizem Cd) 120 mg PO Q12 [facility] Last Admin: 02/23/19 09:26 Dose: 120 mg Documented by: Doxazosin Mesylate (Cardura) 4 mg PO QHS [facility] Last Admin: 02/22/19 22:32 Dose: 4 mg Documented by: Ergocalciferol (Vitamin D) 50,000 unit PO WE [facility] Last Admin: 02/22/19 22:43 Dose: 50,000 unit Documented by: Finasteride (Proscar) 5 mg PO DAILY@2200 [facility] Last Admin: 02/22/19 22:32 Dose: 5 mg Documented by: Furosemide (Lasix) 40 mg PO DAILY [facility] Last Admin: 02/23/19 09:25 Dose: 40 mg Documented by: Glucagon () 1 mg IM .X1 PRN PRN Reason: Hypoglycemia Guaifenesin (Mucinex) 1,200 mg PO BID [facility] Last Admin: 02/23/19 09:24 Dose: 1,200 mg Documented by: Sodium Chloride () 250 mls @ 15 mls/hr IV .[id number] PRN PRN Reason: Saline Flush Insulin Human Lispro (Humalog Kwikpen (Bkc)) 0 unit SC TIDAC [facility]; Protocol Last Admin: 02/23/19 11:57 Dose: Not Given Documented by: Lisinopril (Zestril) 2.5 mg PO DAILY [facility] Last Admin: 02/23/19 09:26 Dose: 2.5 mg Documented by: Melatonin (Melatonin) 3 mg PO QHS PRN PRN PRN Reason: INSOMNIA Last Admin: 02/20/19 23:56 Dose: 3 mg Documented by: Metoprolol Tartrate (Lopressor (Beta Fiordaliza)) 100 mg PO BID [facility] Last Admin: 02/23/19 09:24 Dose: 100 mg Documented by: Nutritional Formula (Lactose Free) (Glucerna Shake) 60 ml PO TIDCM [facility] Last Admin: 02/23/19 11:57 Dose: Not Given Documented by: Nystatin (Mycostatin Powder) 1 applic TOPICAL BID [facility]; Protocol Last Admin: 02/23/19 09:27 Dose: 1 applicatio Documented by: Ondansetron HCl (Zofran) 4 mg IV Q8H PRN PRN PRN Reason: NAUSEA/VOMITING Oxycodone HCl (Oxyir) 5 mg PO Q4H PRN PRN PRN Reason: Pain Score 4-10/10 Potassium Chloride (K-Dur) 40 meq PO BIDCM [facility] Stop: 02/24/19 17:01 Last Admin: 02/23/19 09:26 Dose: 40 meq Documented by: Sodium Chloride () 10 - 40 ml IV UD PRN PRN Reason: SALINE FLUSH Last Admin: 02/21/19 17:35 Dose: 10 ml Documented by: Throat Lozenges (Cepacol Sore Throat Lozenge) 1 lozenge MUCOUS MEM Q2H PRN PRN PRN Reason: COUGH Last Admin: 02/20/19 22:57 Dose: 1 lozenge Documented by: Medical Necessity - Tobacco Use Smoking Status: Never smoker Tobacco Use: Cigarettes, Cigars Assessment/Plan All Active Problems (Last Updated 02/18/19 @ 08:31 by Radhames Quach MD) HFrEF (heart failure with reduced ejection fraction) (Acute) NSTEMI (non-ST elevated myocardial infarction) (Acute) CKD at baseline which is 1.5-1.8 HTN R renal cyst Nephrolithiasis asymptomatic Heart failure creatinine is 1.69 which is consistent with his baseline Avoid nephrotoxins and overdiuresis Okay from renal standpoint to continue the low-dose lisinopril as you are doing
--- NOTE | 2019-02-23 13:26 | CASEMGMT ---
Patient is ready for discharge. [facility] faxed d/c instructions to Palliative Care. SW also called and left a voice mail for Palliative Care. [facility] also gave patient information on 3 different home delivered meal companies. Plan: Home with [facility], referral to Palliative Care and CCN. Sara NOLEN MSW
--- NOTE | 2019-02-23 15:55 | PCM.PN.HOSP ---
Patient Problems: Active and Suspected Problems (Last Updated 02/18/19 @ 08:31 by Radhames Quach MD) HFrEF (heart failure with reduced ejection fraction) (Acute) NSTEMI (non-ST elevated myocardial infarction) (Acute) Subjective: Patient was expected for discharge in the a.m. and was cleared by cardiology but he was still found tachycardic, heart rate 109 with blood pressure 92/55. Patient prefers to go home although he does not have any caregiver tonight therefore felt unsafe discharge along with tachycardia. His daughter will come tomorrow. Therefore, discharge canceled. Vitals/I&O's: Vital Signs Temp Pulse Resp BP Pulse Ox 98.6 F 88 18 98/56 L 93 02/23/19 14:00 02/23/19 14:00 02/23/19 14:00 02/23/19 14:00 02/23/19 14:00 Oxygen Flow Rate (L/min) 2 Oxygen Delivery Method Nasal Cannula Weight: 208 lb 5.389 oz Body Mass Index (BMI) 37.5 Finger Stick Blood Glucose 143 Intake and Output for Last 24 Hours 02/21/19 02/22/19 02/23/19 23:59 23:59 23:59 Intake Total 2038.47 / 2055.17 1096.35 / 1216.35 120 / 120 Output Total 1225 / 1225 187 / 0 675 / 675 Balance 813.47 / 830.17 -778.65 / -833.65 -555 / -555 General: Alert, Oriented x3, Cooperative HEENT: Atraumatic, PERRLA, EOMI, Normocephalic Neck: Supple, No JVD, Negative Carotid Bruits, - - Patient also cough while swallowing ice cream. Concern for oropharyngeal dysphagia Lungs: Diminished - Air entry diminished in bilateral lung bases, Rhonchi Cardiovascular: Normal S1, Normal S2, Irregular Rate, Murmur Abdomen: Bowel Sounds Present, Soft, Non Tender, Distended - Mild distention. Ascites improving. Extremities: Capillary Refill Less than 3 Seconds, Edema Skin: No rashes, No breakdown Musculoskeletal: No Tenderness to Palpation of Joints or Extremities, Arthritic Changes, Muscle Wasting Neurological: Cranial nerves II-XII grossly intact, Deep Tendon Reflexes 2+/4 and Symmetrical, Neuro grossly intact Psych/Mental Status: Normal Affect, Appropriate Microbiology Past 72 Hours 02/19/19 14:33 Sputum, Expectorated/Coughed Gram Stain - Final 02/19/19 14:33 Sputum, Expectorated/Coughed Respiratory Culture - Final Laboratory Results 02/22/19 17:07: POC Glucose 121 H 02/22/19 22:27: POC Glucose 108 02/23/19 06:35: WBC 9.5, RBC 4.41 L, Hgb 13.2, Hct 41.6, MCV 94.3 H, MCH 29.9, MCHC 31.7 L, RDW Std Deviation 45.5 H, RDW Coeff of Francis 13.3, Plt Count 220, MPV 10.6, Immature Gran % (Auto) 1.500 H, Neut % (Auto) 74.9 H, Lymph % (Auto) 11.4 L, [place] % (Auto) 10.5 H, Eos % (Auto) 1.4, Baso % (Auto) 0.3, Absolute Neuts (auto) 7.1, Absolute Lymphs (auto) 1.08, Nucleated RBC % 0 02/23/19 06:35: Sodium 141, Potassium 3.8, Chloride 102, Carbon Dioxide 32.0, Anion Gap 7, BUN 28 H, Creatinine 1.69 H, Estim Creat Clear Calc 33.03, Est GFR (MDRD) Af Amer 51 L, Est GFR (MDRD) Non-Af 42 L, BUN/Creatinine Ratio 16.6, Glucose 106, Calcium 9.1 02/23/19 06:57: POC Glucose 100 02/23/19 11:53: POC Glucose 120 H Current Medications Acetaminophen (Tylenol) 650 mg PO Q6H PRN PRN PRN Reason: Pain Score 1-3/Temp > 100.7 F Acetylcysteine (Mucomyst) 800 mg INHALATION Q12H.RT [facility] Last Admin: 02/23/19 07:47 Dose: Not Given Documented by: Albuterol Sulfate (Ventolin Aerosols) 2.5 mg INHALATION Q4H PRN PRN PRN Reason: Shortness of breath, wheezing Albuterol/Ipratropium (Duoneb) 3 ml INHALATION Q4H.RT [facility] Last Admin: 02/23/19 15:10 Dose: Not Given Documented by: Allopurinol (Zyloprim) 300 mg PO DAILYCM [facility] Last Admin: 02/23/19 09:25 Dose: 300 mg Documented by: Amiodarone HCl (Cordarone) 200 mg PO BID [facility] Last Admin: 02/23/19 09:25 Dose: 200 mg Documented by: Apixaban (Eliquis) 2.5 mg PO BID [facility] Last Admin: 02/23/19 09:27 Dose: 2.5 mg Documented by: Bethanechol Chloride (Bethanechol Chloride) 50 mg PO BID [facility] Last Admin: 02/23/19 09:24 Dose: 50 mg Documented by: Calcitriol (Rocaltrol) 0.25 mcg PO QHS [facility] Last Admin: 02/22/19 22:32 Dose: 0.25 mcg Documented by: Colchicine (Colchicine) 0.6 mg PO DAILY PRN PRN PRN Reason: gout flare Dextrose (D50w Syringe) 0 gm IV X1 PRN; Protocol PRN Reason: Hypoglycemia Diltiazem HCl (Cardizem Cd) 120 mg PO Q12 [facility] Last Admin: 02/23/19 09:26 Dose: 120 mg Documented by: Doxazosin Mesylate (Cardura) 4 mg PO QHS [facility] Last Admin: 02/22/19 22:32 Dose: 4 mg Documented by: Ergocalciferol (Vitamin D) 50,000 unit PO WE [facility] Last Admin: 02/22/19 22:43 Dose: 50,000 unit Documented by: Finasteride (Proscar) 5 mg PO DAILY@2200 [facility] Last Admin: 02/22/19 22:32 Dose: 5 mg Documented by: Furosemide (Lasix) 40 mg PO DAILY [facility] Last Admin: 02/23/19 09:25 Dose: 40 mg Documented by: Glucagon () 1 mg IM .X1 PRN PRN Reason: Hypoglycemia Guaifenesin (Mucinex) 1,200 mg PO BID [facility] Last Admin: 02/23/19 09:24 Dose: 1,200 mg Documented by: Sodium Chloride () 250 mls @ 15 mls/hr IV .[id number] PRN PRN Reason: Saline Flush Insulin Human Lispro (Humalog Kwikpen (Bkc)) 0 unit SC TIDAC [facility]; Protocol Last Admin: 02/23/19 11:57 Dose: Not Given Documented by: Lisinopril (Zestril) 2.5 mg PO DAILY [facility] Last Admin: 02/23/19 09:26 Dose: 2.5 mg Documented by: Melatonin (Melatonin) 3 mg PO QHS PRN PRN PRN Reason: INSOMNIA Last Admin: 02/20/19 23:56 Dose: 3 mg Documented by: Metoprolol Tartrate (Lopressor (Beta Fiordaliza)) 100 mg PO BID [facility] Last Admin: 02/23/19 09:24 Dose: 100 mg Documented by: Nutritional Formula (Lactose Free) (Glucerna Shake) 60 ml PO TIDCM [facility] Last Admin: 02/23/19 11:57 Dose: Not Given Documented by: Nystatin (Mycostatin Powder) 1 applic TOPICAL BID [facility]; Protocol Last Admin: 02/23/19 09:27 Dose: 1 applicatio Documented by: Ondansetron HCl (Zofran) 4 mg IV Q8H PRN PRN PRN Reason: NAUSEA/VOMITING Oxycodone HCl (Oxyir) 5 mg PO Q4H PRN PRN PRN Reason: Pain Score 4-10/10 Pot[facility]: 02/24/19 17:01 Last Admin: 02/23/19 09:26 Dose: 40 meq Documented by: Sodium Chloride () 10 - 40 ml IV UD PRN PRN Reason: SALINE FLUSH Last Admin: 02/21/19 17:35 Dose: 10 ml Documented by: Throat Lozenges (Cepacol Sore Throat Lozenge) 1 lozenge MUCOUS MEM Q2H PRN PRN PRN Reason: COUGH Last Admin: 02/20/19 22:57 Dose: 1 lozenge Documented by: STROKE Vital Signs/Narrative: Vital Signs Temp Pulse Resp BP Pulse Ox 02/23/19 14:00 98.6 F 88 18 98/56 L 93 Medical Necessity - Tobacco Use Smoking Status: Never smoker Tobacco Use: Cigarettes, Cigars Assessment/Plan All Active Problems (Last Updated 02/18/19 @ 08:31 by Radhames Quach MD) HFrEF (heart failure with reduced ejection fraction) (Acute) NSTEMI (non-ST elevated myocardial infarction) (Acute) This is a 78 years old male patient presented to the emergency room because of worsening shortness of breath, also complained of mild sinus congestion, rhinorrhea, cough and sore throat and he was admitted for acute on chronic systolic CHF. #1 acute on chronic systolic CHF, biventricular systolic failure: Patient is being admitted on PCU. Patient has good urine output. Patient feels improvement in shortness of breath and leg edema. Respiratory panel for viruses were negative. EKG revealed A. fib, ST segment depression in leads V4, V5 and V6 which are chronic, no acute ischemic changes. Troponin is borderline elevated and flat. 2D echocardiogram revealed ejection fraction of 30 to 35%. Mildly dilated RV with moderate global right ventricle systolic dysfunction. LA moderately enlarged RA moderately enlarged. Patient was seen by minister of religion. On medical management. Lisinopril 2.5 mg daily. On hydralazine and isosorbide mononitrate. 02/21/2019: Patient is more short of breath. A. fib with RVR initially started on Cardizem drip which is changed to amiodarone drip by minister of religion. Rate is controlled. Abdominal right upper quadrant sonogram was done which shows normal echogenicity of contour of liver. Did not show up any ascites clinically it seems ascites. 02/22/2019: Shortness of breath is better. RVR is controlled on IV amiodarone drip which is being transitioned to oral amiodarone. Mild hypotension antihypertensive medications held. 02/24: Overall shortness of breath is improved. Mild tachycardia with A. fib and hypotension. Patient was expected to be discharged today but discharge was canceled as patient still found tachycardic, heart rate 109 with blood pressure 92/55. Patient prefers to go home although he does not have any caregiver tonight therefore felt unsafe discharge along with tachycardia. His daughter will come tomorrow. Discharge medication reconciliation done and prescription sent to pharmacy. #2 Mild troponin elevation, in intermittent range possible secondary to demand ischemia/CHF exacerbation: Patient having chest pain. EKG showed no acute ischemic changes. Continue Eliquis and metoprolol. Recommended coronary invasive assessment in future when kidney function is stabilized and heart failure is optimized. #3 CAD status post CABG: continue IV diuresis, continue Eliquis, metoprolol. #4 chronic atrial fibrillation: Rate is controlled, continue Cardizem and metoprolol for rate control, continue Eliquis for anticoagulation. 02/21: Patient went into A. fib with RVR. Rate is controlled. 02/22: Patient is still in A. fib. monitor technician PVCs and pulses bigeminy. #5 hypertension: Blood pressure stable, continue Lasix, metoprolol. 02/22: Blood pressure systolic in 90s. #6 benign prostatic hypertrophy: Continue Cardura and Proscar. #7 stage III chronic kidney disease with mild hypokalemia: Baseline creatinine has been around 1.3 to 1.8 mg/dL. Potassium replaced. 02/21/2029: CKD stage III: 18 is still at the baseline although went up to about 1.8. Resident Doctor has been consulted. Renal ultrasound ordered. Blood pressure controlled. Avoid nephrotoxins and overdiuresis. 02/22: BUN/creatinine 30/1.75: Creatinine is still on baseline. Okay for lisinopril but it is currently held for hypotension. 02/23: Kidney function is stable. Lisinopril low-dose resumed. #8 chronic respiratory failure, mainly secondary to biventricular heart failure: On home oxygen mainly at night at 2 L. Currently on 2 L. 02/22: Patient has mild bronchitis symptoms with cough unable to expectorate. Mucinex added. Respiratory panel is negative. Sputum culture shows 1+ gram-positive cocci in clusters consistent with mixed normal respiratory terra. repeat chest x-ray ordered #9 DVT prophylaxis: Continue Eliquis. Signout: Discharge tomorrow a.m. patient wants to go home and refused SNF Code Visit Inpatient E&M: 24486 Subs Hosp L2
[2019-02-23 16:40] LABS: Bedside Glucose 135 mg/dL (70-110)
[2019-02-23] MEDS: Calcitriol 0.25 MCG Capsule PO (21:04)
[2019-02-23] MEDS: Finasteride 5 MG Tablet PO (21:04)
[2019-02-23] MEDS: Doxazosin 4 MG Tablet PO (21:04)
[2019-02-23 22:06] LABS: Bedside Glucose 99 mg/dL (70-110)
[2019-02-24] VITALS (15 sets, daily range): BP systolic 85–116; BP diastolic 40–74; PULSE 79–124; RESP 16–20; TEMP 36.5–36.8; O2SAT 91–97
[2019-02-24 06:48] LABS: Anion Gap 8 (5-15); BUN 32 mg/dL (7-18); BUN/Creat Ratio 16.7 RATIO (10-20); Calcium,Total 8.6 mg/dL (8.5-10.1); Chloride 102 mmol/L (98-107); Creatinine, Serum 1.92 mg/dL (0.70-1.30); EST Glomerular Filtration Rate 36 mL/min (>60); Est Glom Filt Rate - Afr Amer 44 mL/min (>60); Estimated Creatinine Clearance 29.08 ml/min; Glucose 97 mg/dL (74-106); Potassium 3.9 mmol/L (3.5-5.1); Sodium Level 142 mmol/L (136-145)
[2019-02-24] MEDS: Ipratropium/Albuterol Sulfate 3 ML AMPUL.NEB INHALATION ×3 (06:50→15:13)
[2019-02-24 07:00] LABS: Bedside Glucose 102 mg/dL (70-110)
--- NOTE | 2019-02-24 09:44 | CCN.REFER ---
Agrees to [facility].
[2019-02-24] MEDS: guaiFENesin 1,200 MG Tablet 1200 MG PO ×2 (10:18→21:03)
[2019-02-24] MEDS: Allopurinol 300 MG Tablet PO (10:18)
[2019-02-24] MEDS: Amiodarone 200 MG Tablet PO ×2 (10:18→22:56)
[2019-02-24] MEDS: Metoprolol Tartrate 100 MG Tablet PO (10:18)
[2019-02-24] MEDS: Lisinopril 2.5 MG Tablet PO (10:18)
[2019-02-24] MEDS: APIXABAN 2.5 MG TABLET PO ×2 (10:18→21:03)
[2019-02-24] MEDS: BETHANECHOL CHLORIDE 25 MG TABLET 50 MG PO ×2 (10:18→21:03)
[2019-02-24] MEDS: Furosemide 40 MG Tablet PO (10:18)
[2019-02-24] MEDS: Nystatin Powder 15gm Bottle 1 APPLIC TOPICAL ×2 (10:19→21:03)
--- NOTE | 2019-02-24 10:29 | PCM.PROGNOTE ---
Patient Problems: Active and Suspected Problems (Last Updated 02/18/19 @ 08:31 by Radhames Quach MD) HFrEF (heart failure with reduced ejection fraction) (Acute) NSTEMI (non-ST elevated myocardial infarction) (Acute) Subjective: He had 2 watery bowel movements yesterday nonbloody. Denies shortness of breath or chest pain. Discharge was canceled because of her arrhythmia. - Physical Exam Vitals/I&O's: Vital Signs Temp Pulse Resp BP Pulse Ox 97.9 F 106 H 16 107/47 L 96 02/24/19 10:14 02/24/19 10:18 02/24/19 10:14 02/24/19 10:14 02/24/19 10:14 Oxygen Flow Rate (L/min) 2 Oxygen Delivery Method Nasal Cannula Weight: 95.1 kg Body Mass Index (BMI) 37.5 Finger Stick Blood Glucose 143 Intake and Output for Last 24 Hours 02/22/19 02/23/19 02/24/19 23:59 23:59 23:59 Intake Total 1096.35 / 1216.35 240 / 240 Output Total 1874 / 2049 1325 / 1325 100 / 100 Balance -778.65 / -833.65 -1085 / -1085 -100 / -100 General: Alert, Oriented x3, Cooperative HEENT: Atraumatic, PERRLA, EOMI, Normocephalic Neck: Supple, No JVD, Negative Carotid Bruits Lungs: Clear to auscultation, Normal air movement Cardiovascular: Regular rate, No murmurs Abdomen: Bowel Sounds Present, Soft, Non Tender, Obese Extremities: No edema, Capillary Refill Less than 3 Seconds Skin: No rashes, No breakdown Musculoskeletal: No Tenderness to Palpation of Joints or Extremities Neurological: Cranial nerves II-XII grossly intact Psych/Mental Status: Normal Affect, Appropriate Microbiology Past 72 Hours 02/19/19 14:33 Sputum, Expectorated/Coughed Gram Stain - Final 02/19/19 14:33 Sputum, Expectorated/Coughed Respiratory Culture - Final Laboratory Results 02/23/19 11:53: POC Glucose 120 H 02/23/19 16:33: POC Glucose 135 H 02/23/19 21:07: POC Glucose 99 02/24/19 06:00: Sodium 142, Potassium 3.9, Chloride 102, Carbon Dioxide 32.0, Anion Gap 8, BUN 32 H, Creatinine 1.92 H, Estim Creat Clear Calc 29.08, Est GFR (MDRD) Af Amer 44 L, Est GFR (MDRD) Non-Af 36 L, BUN/Creatinine Ratio 16.7, Glucose 97, Calcium 8.6 02/24/19 06:42: POC Glucose 102 Current Medications Acetaminophen (Tylenol) 650 mg PO Q6H PRN PRN PRN Reason: Pain Score 1-3/Temp > 100.7 F Albuterol Sulfate (Ventolin Aerosols) 2.5 mg INHALATION Q4H PRN PRN PRN Reason: Shortness of breath, wheezing Albuterol/Ipratropium (Duoneb) 3 ml INHALATION Q4H.RT [facility] Last Admin: 02/24/19 06:50 Dose: 3 ml Documented by: Allopurinol (Zyloprim) 300 mg PO DAILYCM [facility] Last Admin: 02/24/19 10:18 Dose: 300 mg Documented by: Amiodarone HCl (Cordarone) 200 mg PO BID [facility] Last Admin: 02/24/19 10:18 Dose: 200 mg Documented by: Apixaban (Eliquis) 2.5 mg PO BID [facility] Last Admin: 02/24/19 10:18 Dose: 2.5 mg Documented by: Bethanechol Chloride (Bethanechol Chloride) 50 mg PO BID [facility] Last Admin: 02/24/19 10:18 Dose: 50 mg Documented by: Calcitriol (Rocaltrol) 0.25 mcg PO QHS [facility] Last Admin: 02/23/19 21:04 Dose: 0.25 mcg Documented by: Colchicine (Colchicine) 0.6 mg PO DAILY PRN PRN PRN Reason: gout flare Dextrose (D50w Syringe) 0 gm IV X1 PRN; Protocol PRN Reason: Hypoglycemia Diltiazem HCl (Cardizem Cd) 120 mg PO Q12 [facility] Last Admin: 02/24/19 10:17 Dose: Not Given Documented by: Doxazosin Mesylate (Cardura) 4 mg PO QHS [facility] Last Admin: 02/23/19 21:04 Dose: 4 mg Documented by: Ergocalciferol (Vitamin D) 50,000 unit PO WE [facility] Last Admin: 02/22/19 22:43 Dose: 50,000 unit Documented by: Finasteride (Proscar) 5 mg PO DAILY@2200 [facility] Last Admin: 02/23/19 21:04 Dose: 5 mg Documented by: Furosemide (Lasix) 40 mg PO DAILY [facility] Last Admin: 02/24/19 10:18 Dose: 40 mg Documented by: Glucagon () 1 mg IM .X1 PRN PRN Reason: Hypoglycemia Guaifenesin (Mucinex) 1,200 mg PO BID [facility] Last Admin: 02/24/19 10:18 Dose: 1,200 mg Documented by: Sodium Chloride () 250 mls @ 15 mls/hr IV .[id number] PRN PRN Reason: Saline Flush Insulin Human Lispro (Humalog Kwikpen (Bkc)) 0 unit SC TIDAC [facility]; Protocol Last Admin: 02/24/19 06:44 Dose: Not Given Documented by: Lisinopril (Zestril) 2.5 mg PO DAILY [facility] Last Admin: 02/24/19 10:18 Dose: 2.5 mg Documented by: Melatonin (Melatonin) 3 mg PO QHS PRN PRN PRN Reason: INSOMNIA Last Admin: 02/20/19 23:56 Dose: 3 mg Documented by: Metoprolol Tartrate (Lopressor (Beta Fiordaliza)) 100 mg PO BID [facility] Last Admin: 02/24/19 10:18 Dose: 100 mg Documented by: Nutritional Formula (Lactose Free) (Glucerna Shake) 60 ml PO TIDCM [facility] Last Admin: 02/24/19 10:16 Dose: Not Given Documented by: Nystatin (Mycostatin Powder) 1 applic TOPICAL BID [facility]; Protocol Last Admin: 02/24/19 10:19 Dose: 1 applicatio Documented by: Ondansetron HCl (Zofran) 4 mg IV Q8H PRN PRN PRN Reason: NAUSEA/VOMITING Oxycodone HCl (Oxyir) 5 mg PO Q4H PRN PRN PRN Reason: Pain Score 4-10/10 Pot[facility]: 02/24/19 17:01 Last Admin: 02/24/19 10:17 Dose: 40 meq Documented by: Sodium Chloride () 10 - 40 ml IV UD PRN PRN Reason: SALINE FLUSH Last Admin: 02/21/19 17:35 Dose: 10 ml Documented by: Throat Lozenges (Cepacol Sore Throat Lozenge) 1 lozenge MUCOUS MEM Q2H PRN PRN PRN Reason: COUGH Last Admin: 02/20/19 22:57 Dose: 1 lozenge Documented by: Medical Necessity - Tobacco Use Smoking Status: Never smoker Tobacco Use: Cigarettes, Cigars Assessment/Plan All Active Problems (Last Updated 02/18/19 @ 08:31 by Radhames Quach MD) HFrEF (heart failure with reduced ejection fraction) (Acute) NSTEMI (non-ST elevated myocardial infarction) (Acute) CKD at baseline which is 1.5-1.8 HTN R renal cyst Nephrolithiasis asymptomatic Heart failure creatinine is 1.9 worse w/hypotension.If creatinine continues to get worse will need to hold lisinopril and Lasix. Avoid nephrotoxins and overdiuresis Discharge was canceled because of tachycardia and hypotension yesterday.
[2019-02-24 12:05] LABS: Bedside Glucose 124 mg/dL (70-110)
[2019-02-24 16:15] LABS: Bedside Glucose 134 mg/dL (70-110)
--- NOTE | 2019-02-24 19:40 | PN_ITS ---
Patient Problems: Active and Suspected Problems (Last Updated 02/18/19 @ 08:31 by Radhames Quach MD) HFrEF (heart failure with reduced ejection fraction) (Acute) Subjective: She was seen and examined today, he remains tachycardic and atrial fib at this time. I do not feel comfortable with the patient going home with his heart rate sometimes going into the 130s. I discussed his care with cardiology today, it was recommended that his Cardizem dosage be increased. Patient is currently on a beta-fiordaliza and amiodarone. - Physical Exam Vitals/I&O's: Vital Signs Temp Pulse Resp BP Pulse Ox 98.2 F 124 H 16 116/74 97 02/24/19 16:07 02/24/19 18:55 02/24/19 16:07 02/24/19 16:07 02/24/19 16:07 Oxygen Flow Rate (L/min) [ 0 AMBULATING on Room Air] Oxygen Flow Rate (L/min) [At 0 REST on Room Air] Oxygen Flow Rate (L/min) 2 Oxygen Delivery Method Room Air Weight: 95.1 kg Body Mass Index (BMI) 37.5 Finger Stick Blood Glucose 143 Intake and Output for Last 24 Hours 02/22/19 02/23/19 02/24/19 23:59 23:59 23:59 Intake Total 1096.35 / 1216.35 240 / 240 Output Total 187 / 2050 1325 / 1325 500 / 500 Balance -778.65 / -833.65 -1085 / -1085 -500 / -500 General: Alert, Oriented x3, Cooperative, No apparent distress, Well developed, Well nourished HEENT: Atraumatic, PERRLA, EOMI, Normocephalic Oral: Moist Mucosa Neck: Supple, Trachea Midline, Thyroid Normal Size and Texture Lungs: Diminished, Rales - Inspiratory rales at the bases bilaterally Cardiovascular: PMI Normal, Irregular Rate, No rub noted Abdomen: Bowel Sounds Present, Soft, Non Tender, Non-Distended Extremities: No clubbing, No cyanosis, Capillary Refill Less than 3 Seconds Skin: No rashes, No breakdown Musculoskeletal: No Tenderness to Palpation of Joints or Extremities Neurological: Cranial nerves II-XII grossly intact, Neuro grossly intact, Sensory exam intact to light touch and pain Psych/Mental Status: Normal Affect, Appropriate, Alert and oriented to time, place, person, mood and affect Laboratory Results 02/23/19 21:07: POC Glucose 99 02/24/19 06:00: Sodium 142, Potassium 3.9, Chloride 102, Carbon Dioxide 32.0, Anion Gap 8, BUN 32 H, Creatinine 1.92 H, Estim Creat Clear Calc 29.08, Est GFR (MDRD) Af Amer 44 L, Est GFR (MDRD) Non-Af 36 L, BUN/Creatinine Ratio 16.7, Glucose 97, Calcium 8.6 02/24/19 06:42: POC Glucose 102 02/24/19 12:01: POC Glucose 124 H 02/24/19 16:07: POC Glucose 134 H Current Medications Acetaminophen (Tylenol) 650 mg PO Q6H PRN PRN PRN Reason: Pain Score 1-3/Temp > 100.7 F Albuterol Sulfate (Ventolin Aerosols) 2.5 mg INHALATION Q4H PRN PRN PRN Reason: Shortness of breath, wheezing Albuterol/Ipratropium (Duoneb) 3 ml INHALATION Q4H.RT [facility] Last Admin: 02/24/19 15:13 Dose: 3 ml Documented by: Allopurinol (Zyloprim) 300 mg PO DAILYCM [facility] Last Admin: 02/24/19 10:18 Dose: 300 mg Documented by: Amiodarone HCl (Cordarone) 200 mg PO BID [facility] Last Admin: 02/24/19 10:18 Dose: 200 mg Documented by: Apixaban (Eliquis) 2.5 mg PO BID [facility] Last Admin: 02/24/19 10:18 Dose: 2.5 mg Documented by: Bethanechol Chloride (Bethanechol Chloride) 50 mg PO BID [facility] Last Admin: 02/24/19 10:18 Dose: 50 mg Documented by: Calcitriol (Rocaltrol) 0.25 mcg PO QHS [facility] Last Admin: 02/23/19 21:04 Dose: 0.25 mcg Documented by: Colchicine (Colchicine) 0.6 mg PO DAILY PRN PRN PRN Reason: gout flare Dextrose (D50w Syringe) 0 gm IV X1 PRN; Protocol PRN Reason: Hypoglycemia Diltiazem HCl (Cardizem Cd) 180 mg PO Q12 [facility] Doxazosin Mesylate (Cardura) 4 mg PO QHS [facility] Last Admin: 02/23/19 21:04 Dose: 4 mg Documented by: Ergocalciferol (Vitamin D) 50,000 unit PO WE [facility] Last Admin: 02/22/19 22:43 Dose: 50,000 unit Documented by: Finasteride (Proscar) 5 mg PO DAILY@2200 [facility] Last Admin: 02/23/19 21:04 Dose: 5 mg Documented by: Furosemide (Lasix) 40 mg PO DAILY [facility] Last Admin: 02/24/19 10:18 Dose: 40 mg Documented by: Glucagon () 1 mg IM .X1 PRN PRN Reason: Hypoglycemia Guaifenesin (Mucinex) 1,200 mg PO BID [facility] Last Admin: 02/24/19 10:18 Dose: 1,200 mg Documented by: Sodium Chloride () 250 mls @ 15 mls/hr IV .[id number] PRN PRN Reason: Saline Flush Insulin Human Lispro (Humalog Kwikpen (Bkc)) 0 unit SC TIDAC [facility]; Protocol Last Admin: 02/24/19 16:08 Dose: Not Given Documented by: Lisinopril (Zestril) 2.5 mg PO DAILY [facility] Last Admin: 02/24/19 10:18 Dose: 2.5 mg Documented by: Melatonin (Melatonin) 3 mg PO QHS PRN PRN PRN Reason: INSOMNIA Last Admin: 02/20/19 23:56 Dose: 3 mg Documented by: Metoprolol Tartrate (Lopressor (Beta Fiordaliza)) 100 mg PO BID [facility] Last Admin: 02/24/19 10:18 Dose: 100 mg Documented by: Nystatin (Mycostatin Powder) 1 applic TOPICAL BID [facility]; Protocol Last Admin: 02/24/19 10:19 Dose: 1 applicatio Documented by: Ondansetron HCl (Zofran) 4 mg IV Q8H PRN PRN PRN Reason: NAUSEA/VOMITING Oxycodone HCl (Oxyir) 5 mg PO Q4H PRN PRN PRN Reason: Pain Score 4-10/10 Sodium Chloride () 10 - 40 ml IV UD PRN PRN Reason: SALINE FLUSH Last Admin: 02/21/19 17:35 Dose: 10 ml Documented by: Throat Lozenges (Cepacol Sore Throat Lozenge) 1 lozenge MUCOUS MEM Q2H PRN PRN PRN Reason: COUGH Last Admin: 02/20/19 22:57 Dose: 1 lozenge Documented by: Medical Necessity - Tobacco Use Smoking Status: Never smoker Tobacco Use: Cigarettes, Cigars Assessment/Plan All Active Problems (Last Updated 02/18/19 @ 08:31 by Radhames Quach MD) HFrEF (heart failure with reduced ejection fraction) (Acute) NSTEMI (non-ST elevated myocardial infarction) (Ruled-out) #1 acute on chronic congestive heart failure with reduced ejection fraction- continue present medication, cardiology is participating in his care #2 chronic atrial fibrillation with poor ventricular response-patient's Cardizem was increased today, we will monitor him on telemetry, patient is not able to be discharged home today #3 coronary artery disease #4 chronic hypoxic respiratory failure #5 chronic obstructive pulmonary disease #6 essential hypertension #7 chronic kidney disease stage III #8 elevated troponin not secondary to [id number] did not feel the patient had a non-STEMI Code Visit Inpatient E&M: 31608 Subs Hosp L2
[2019-02-24] MEDS: Calcitriol 0.25 MCG Capsule PO (21:03)
[2019-02-24] MEDS: Finasteride 5 MG Tablet PO (21:03)
[2019-02-24 22:40] LABS: Bedside Glucose 138 mg/dL (70-110)
[2019-02-25] VITALS (13 sets, daily range): BP systolic 88–110; BP diastolic 50–74; PULSE 79–130; RESP 16–20; TEMP 36.4–36.9; O2SAT 94–99
[2019-02-25] MEDS: Ipratropium/Albuterol Sulfate 3 ML AMPUL.NEB INHALATION (06:38)
[2019-02-25 06:46] LABS: Bedside Glucose 87 mg/dL (70-110)
[2019-02-25] MEDS: Allopurinol 300 MG Tablet PO (09:42)
[2019-02-25] MEDS: Metoprolol Tartrate 100 MG Tablet PO ×2 (09:42→21:29)
[2019-02-25] MEDS: Amiodarone 200 MG Tablet PO ×3 (09:42→21:29)
[2019-02-25] MEDS: APIXABAN 2.5 MG TABLET PO ×2 (09:43→21:29)
[2019-02-25] MEDS: BETHANECHOL CHLORIDE 25 MG TABLET 50 MG PO ×2 (09:43→21:29)
[2019-02-25] MEDS: Nystatin Powder 15gm Bottle 1 APPLIC TOPICAL ×2 (09:43→21:32)
[2019-02-25] MEDS: guaiFENesin 1,200 MG Tablet 1200 MG PO ×2 (09:43→21:30)
[2019-02-25 11:21] LABS: Bedside Glucose 123 mg/dL (70-110)
[2019-02-25] MEDS: dilTIAZem CD 180 MG Capsule PO ×2 (11:23→21:30)
--- NOTE | 2019-02-25 12:15 | PN.CARD_ITS ---
Subjectve: Patient seen and evaluated. Heart rate still seems to be uncontrolled and patient occasionally gets hypotensive Objective: Vital Signs Temp Pulse Resp BP Pulse Ox 97.5 F L 118 H 18 94/52 L 96 02/25/19 10:30 02/25/19 10:30 02/25/19 10:30 02/25/19 10:30 02/25/19 10:30 Oxygen Flow Rate (L/min) [ 0 AMBULATING on Room Air] Oxygen Flow Rate (L/min) [At 0 REST on Room Air] Oxygen Flow Rate (L/min) 2 Oxygen Delivery Method Nasal Cannula Weight: 211 lb 6.773 oz Body Mass Index (BMI) 37.5 Finger Stick Blood Glucose 143 Intake and Output for Last 24 Hours 02/23/19 02/24/19 02/25/19 23:59 23:59 23:59 Intake Total 240 / 240 120 / 120 720 / 720 Output Total 1325 / 1325 725 / 725 275 / 275 Balance -1085 / -1085 -605 / -605 445 / 445 General: Awake, Alert, Oriented x 3 HEENT: PERRL, EOMI, Sclera Non Icteric Neck: Supple, Good ROM, No Lymph Node Enlargement Lungs: Diminished Rolo Bases Cardiovascular: Irregular Rhythm, Normal S1, Normal S2, No Murmurs, No Rubs, No Gallops Vascular: No Carotid Bruits, Normal Femoral Pulses, Normal Radial Pulses, Normal Dorsalis Pedal Pulse, Normal Posterior Tibial Pulses Abdomen: Bowel Sounds Present, Soft, Non Tender, No HSM, No Organomegaly Extremities: No Cyanosis, No Clubbing, No edema Musculoskeletal: No Erythema Skin: No Rashes Lymphatic: No Lymph Node Enlargement Neurological: No Focal Motor or Sensory Deficit Psych/Mental Status: Appropriate Rhythm: EKG: ECHO: Stress Test: Cardiac Cath: PCI: CT Surgery: Holter monitor: EPS: PPM: CXR: Chest CT Scan: Medical Necessity - Tobacco Use Smoking Status: Never smoker Tobacco Use: Cigarettes, Cigars Assessment/Plan 1. Acute on chronic congestive heart failure exacerbation. * Echocardiogram showed evidence of decline in the left ventricular ejection fraction. His previous echocardiogram had demonstrated an ejection fraction of approximately 40% in its now down to the 35% range. * Currently on metoprolol twice daily. Possible culprits for depressed left ventricular ejection fraction might be progression of coronary atherosclerosis, or simply rate related cardiomyopathy in the setting of atrial fibrillation with suboptimally controlled ventricular response. * May eventually need evaluation of his coronary anatomy. * He will need daily Lasix and appears to be doing much better 2. History of chronic atrial fibrillation. His ventricular response rate does not appear to be very well controlled. He has been chronically anticoagulated and he will remain on the metoprolol and I would recommend adding amiodarone to his regimen for rate control but not cardioversion. He has failed to DC cardioversion in the past. * We will also try and add p.o. diltiazem * I have increased the amiodarone to 3 times a day. * If patient's heart rate still is uncontrolled by Wednesday would recommend DC cardioversion attempt On anticoagulation with Eliquis 3. History of coronary artery disease. No evidence of acute coronary syndrome. He does have a history of left internal mammary artery to the left anterior descending artery, saphenous vein graft to posterior descending artery, and saphenous vein graft to the circumflex artery. Troponin elevation is just borderline in the setting of acute CHF exacerbation. * We will continue with adjustment of beta blockers. * He did have a stress test about 2 years ago which did not demonstrate any evidence of ischemia. * 4. Hypertension * His blood pressure currently appears to be under good control and so I would not make any major changes. * Will discontinue other agents which may be causing hypotension like lisinopril and doxazosin temporarily * * Overall he appears to be doing much better. The plan will be to continue his current medical therapy. He may require to be in a transitional care unit. * Thank you for allowing me to participate in the care of your patient. Please don't hesitate to call if any issues arise
[2019-02-25 16:26] LABS: Bedside Glucose 155 mg/dL (70-110)
--- NOTE | 2019-02-25 17:51 | PCM.PROGNOTE ---
Patient Problems: Active and Suspected Problems (Last Updated 02/18/19 @ 08:31 by Radhames Quach MD) HFrEF (heart failure with reduced ejection fraction) (Acute) Subjective: Patient was seen and examined today, he does not complain of any increased shortness of breath, I talked briefly with cardiology about his care, cardiology has decided to increase the patient's amiodarone. At the time of this dictation, patient's rate is better controlled. - Physical Exam Vitals/I&O's: Vital Signs Temp Pulse Resp BP Pulse Ox 98.3 F 81 16 103/74 99 02/25/19 17:19 02/25/19 17:19 02/25/19 17:19 02/25/19 17:19 02/25/19 17:19 Oxygen Flow Rate (L/min) [ 0 AMBULATING on Room Air] Oxygen Flow Rate (L/min) [At 0 REST on Room Air] Oxygen Flow Rate (L/min) 2 Oxygen Delivery Method Nasal Cannula Weight: 95.9 kg Body Mass Index (BMI) 37.5 Finger Stick Blood Glucose 143 Intake and Output for Last 24 Hours 02/23/19 02/24/19 02/25/19 23:59 23:59 23:59 Intake Total 240 / 240 120 / 120 720 / 720 Output Total 1325 / 1325 725 / 725 275 / 275 Balance -1085 / -1085 -605 / -605 445 / 445 General: Alert, Oriented x3, Cooperative, No apparent distress HEENT: Atraumatic, PERRLA, EOMI, Normocephalic Oral: Moist Mucosa Neck: Supple, No JVD, Negative Carotid Bruits Lungs: Clear to auscultation, No rhonchi, No wheeze, Diminished Cardiovascular: No murmurs, PMI Normal, Irregular Rate, No rub noted Abdomen: Bowel Sounds Present, Soft, Non Tender, Non-Distended Extremities: No clubbing, No cyanosis, Capillary Refill Less than 3 Seconds Skin: No rashes, No breakdown Musculoskeletal: No Tenderness to Palpation of Joints or Extremities Neurological: Cranial nerves II-XII grossly intact, Neuro grossly intact, Sensory exam intact to light touch and pain Psych/Mental Status: Normal Affect, Appropriate, Alert and oriented to time, place, person, mood and affect Laboratory Results 02/24/19 21:07: POC Glucose 138 H 02/25/19 06:22: POC Glucose 87 02/25/19 11:13: POC Glucose 123 H 02/25/19 16:08: POC Glucose 155 H Current Medications Acetaminophen (Tylenol) 650 mg PO Q6H PRN PRN PRN Reason: Pain Score 1-3/Temp > 100.7 F Albuterol Sulfate (Ventolin Aerosols) 2.5 mg INHALATION Q4H PRN PRN PRN Reason: Shortness of breath, wheezing Albuterol/Ipratropium (Duoneb) 3 ml INHALATION Q4H.RT [facility] Last Admin: 02/25/19 10:33 Dose: Not Given Documented by: Allopurinol (Zyloprim) 300 mg PO DAILYCM [facility] Last Admin: 02/25/19 09:42 Dose: 300 mg Documented by: Amiodarone HCl (Cordarone) 200 mg PO TID [facility] Last Admin: 02/25/19 14:42 Dose: 200 mg Documented by: Apixaban (Eliquis) 2.5 mg PO BID [facility] Last Admin: 02/25/19 09:43 Dose: 2.5 mg Documented by: Bethanechol Chloride (Bethanechol Chloride) 50 mg PO BID [facility] Last Admin: 02/25/19 09:43 Dose: 50 mg Documented by: Calcitriol (Rocaltrol) 0.25 mcg PO QHS [facility] Last Admin: 02/24/19 21:03 Dose: 0.25 mcg Documented by: Colchicine (Colchicine) 0.6 mg PO DAILY PRN PRN PRN Reason: gout flare Dextrose (D50w Syringe) 0 gm IV X1 PRN; Protocol PRN Reason: Hypoglycemia Diltiazem HCl (Cardizem Cd) 180 mg PO Q12 [facility] Last Admin: 02/25/19 11:23 Dose: 180 mg Documented by: Ergocalciferol (Vitamin D) 50,000 unit PO WE [facility] Last Admin: 02/22/19 22:43 Dose: 50,000 unit Documented by: Finasteride (Proscar) 5 mg PO DAILY@2200 [facility] Last Admin: 02/24/19 21:03 Dose: 5 mg Documented by: Furosemide (Lasix) 40 mg PO DAILY [facility] Last Admin: 02/25/19 09:41 Dose: Not Given Documented by: Glucagon () 1 mg IM .X1 PRN PRN Reason: Hypoglycemia Guaifenesin (Mucinex) 1,200 mg PO BID [facility] Last Admin: 02/25/19 09:43 Dose: 1,200 mg Documented by: Sodium Chloride () 250 mls @ 15 mls/hr IV .[id number] PRN PRN Reason: Saline Flush Insulin Human Lispro (Humalog Kwikpen (Bkc)) 0 unit SC TIDAC [facility]; Protocol Last Admin: 02/25/19 17:10 Dose: Not Given Documented by: Lisinopril (Zestril) 2.5 mg PO DAILY [facility] Last Admin: 02/25/19 09:41 Dose: Not Given Documented by: Melatonin (Melatonin) 3 mg PO QHS PRN PRN PRN Reason: INSOMNIA Last Admin: 02/20/19 23:56 Dose: 3 mg Documented by: Metoprolol Tartrate (Lopressor (Beta Fiordaliza)) 100 mg PO BID [facility] Last Admin: 02/25/19 09:42 Dose: 100 mg Documented by: Nystatin (Mycostatin Powder) 1 applic TOPICAL BID [facility]; Protocol Last Admin: 02/25/19 09:43 Dose: 1 applicatio Documented by: Ondansetron HCl (Zofran) 4 mg IV Q8H PRN PRN PRN Reason: NAUSEA/VOMITING Oxycodone HCl (Oxyir) 5 mg PO Q4H PRN PRN PRN Reason: Pain Score 4-10/10 Sodium Chloride () 10 - 40 ml IV UD PRN PRN Reason: SALINE FLUSH Last Admin: 02/21/19 17:35 Dose: 10 ml Documented by: Throat Lozenges (Cepacol Sore Throat Lozenge) 1 lozenge MUCOUS MEM Q2H PRN PRN PRN Reason: COUGH Last Admin: 02/20/19 22:57 Dose: 1 lozenge Documented by: Medical Necessity - Tobacco Use Smoking Status: Never smoker Tobacco Use: Cigarettes, Cigars Assessment/Plan All Active Problems (Last Updated 02/18/19 @ 08:31 by Radhames Quach MD) HFrEF (heart failure with reduced ejection fraction) (Acute) NSTEMI (non-ST elevated myocardial infarction) (Ruled-out) #1 acute on chronic congestive heart failure with reduced ejection fraction-continue present medication, cardiology is participating in his care, Cordarone was increased today #2 chronic atrial fibrillation with poor ventricular response #3 coronary artery disease #4 chronic hypoxic respiratory failure #5 chronic obstructive pulmonary disease #6 essential hypertension #7 chronic kidney disease stage III #8 elevated troponin not secondary to [id number] did not feel the patient had a non-STEMI Code Visit Inpatient E&M: 05724 Subs Hosp L2
--- NOTE | 2019-02-25 18:14 | PCM.PN.REN ---
Patient Problems: Active and Suspected Problems (Last Updated 02/18/19 @ 08:31 by Radhames Quach MD) HFrEF (heart failure with reduced ejection fraction) (Acute) Subjective: No nausea No vomiting Breathing is stable at 2 l/m No CP - Physical Exam Vitals/I&O's: Vital Signs Temp Pulse Resp BP Pulse Ox 98.3 F 81 16 103/74 99 02/25/19 17:19 02/25/19 17:19 02/25/19 17:19 02/25/19 17:19 02/25/19 17:19 Oxygen Flow Rate (L/min) [ 0 AMBULATING on Room Air] Oxygen Flow Rate (L/min) [At 0 REST on Room Air] Oxygen Flow Rate (L/min) 2 Oxygen Delivery Method Nasal Cannula Weight: 95.9 kg Body Mass Index (BMI) 37.5 Finger Stick Blood Glucose 143 Intake and Output for Last 24 Hours 02/23/19 02/24/19 02/25/19 23:59 23:59 23:59 Intake Total 240 / 240 120 / 120 720 / 720 Output Total 1325 / 1325 725 / 725 275 / 275 Balance -1085 / -1085 -605 / -605 445 / 445 General: Alert, Oriented x3 HEENT: Atraumatic Oral: Moist Mucosa Neck: Supple, No JVD Lungs: Clear to auscultation, Normal air movement, No rhonchi Cardiovascular: Regular rate, Regular Rhythm, Normal S1 Abdomen: Bowel Sounds Present, Soft, Non Tender Extremities: Edema - trace Skin: No rashes Musculoskeletal: No Tenderness to Palpation of Joints or Extremities Lymphatic: No Cervical, Supraclavicular, or Inguinal Adenopathy Neurological: Cranial nerves II-XII grossly intact, Neuro grossly intact Psych/Mental Status: Appropriate Laboratory Results 02/24/19 21:07: POC Glucose 138 H 02/25/19 06:22: POC Glucose 87 02/25/19 11:13: POC Glucose 123 H 02/25/19 16:08: POC Glucose 155 H Current Medications Acetaminophen (Tylenol) 650 mg PO Q6H PRN PRN PRN Reason: Pain Score 1-3/Temp > 100.7 F Albuterol Sulfate (Ventolin Aerosols) 2.5 mg INHALATION Q4H PRN PRN PRN Reason: Shortness of breath, wheezing Albuterol/Ipratropium (Duoneb) 3 ml INHALATION Q4H.RT [facility] Last Admin: 02/25/19 10:33 Dose: Not Given Documented by: Allopurinol (Zyloprim) 300 mg PO DAILYCM [facility] Last Admin: 02/25/19 09:42 Dose: 300 mg Documented by: Amiodarone HCl (Cordarone) 200 mg PO TID [facility] Last Admin: 02/25/19 14:42 Dose: 200 mg Documented by: Apixaban (Eliquis) 2.5 mg PO BID [facility] Last Admin: 02/25/19 09:43 Dose: 2.5 mg Documented by: Bethanechol Chloride (Bethanechol Chloride) 50 mg PO BID [facility] Last Admin: 02/25/19 09:43 Dose: 50 mg Documented by: Calcitriol (Rocaltrol) 0.25 mcg PO QHS [facility] Last Admin: 02/24/19 21:03 Dose: 0.25 mcg Documented by: Colchicine (Colchicine) 0.6 mg PO DAILY PRN PRN PRN Reason: gout flare Dextrose (D50w Syringe) 0 gm IV X1 PRN; Protocol PRN Reason: Hypoglycemia Diltiazem HCl (Cardizem Cd) 180 mg PO Q12 [facility] Last Admin: 02/25/19 11:23 Dose: 180 mg Documented by: Ergocalciferol (Vitamin D) 50,000 unit PO WE [facility] Last Admin: 02/22/19 22:43 Dose: 50,000 unit Documented by: Finasteride (Proscar) 5 mg PO DAILY@2200 [facility] Last Admin: 02/24/19 21:03 Dose: 5 mg Documented by: Furosemide (Lasix) 40 mg PO DAILY [facility] Last Admin: 02/25/19 09:41 Dose: Not Given Documented by: Glucagon () 1 mg IM .X1 PRN PRN Reason: Hypoglycemia Guaifenesin (Mucinex) 1,200 mg PO BID [facility] Last Admin: 02/25/19 09:43 Dose: 1,200 mg Documented by: Sodium Chloride () 250 mls @ 15 mls/hr IV .[id number] PRN PRN Reason: Saline Flush Insulin Human Lispro (Humalog Kwikpen (Bkc)) 0 unit SC TIDAC [facility]; Protocol Last Admin: 02/25/19 17:10 Dose: Not Given Documented by: Lisinopril (Zestril) 2.5 mg PO DAILY [facility] Last Admin: 02/25/19 09:41 Dose: Not Given Documented by: Melatonin (Melatonin) 3 mg PO QHS PRN PRN PRN Reason: INSOMNIA Last Admin: 02/20/19 23:56 Dose: 3 mg Documented by: Metoprolol Tartrate (Lopressor (Beta Fiordaliza)) 100 mg PO BID [facility] Last Admin: 02/25/19 09:42 Dose: 100 mg Documented by: Nystatin (Mycostatin Powder) 1 applic TOPICAL BID [facility]; Protocol Last Admin: 02/25/19 09:43 Dose: 1 applicatio Documented by: Ondansetron HCl (Zofran) 4 mg IV Q8H PRN PRN PRN Reason: NAUSEA/VOMITING Oxycodone HCl (Oxyir) 5 mg PO Q4H PRN PRN PRN Reason: Pain Score 4-10/10 Sodium Chloride () 10 - 40 ml IV UD PRN PRN Reason: SALINE FLUSH Last Admin: 02/21/19 17:35 Dose: 10 ml Documented by: Throat Lozenges (Cepacol Sore Throat Lozenge) 1 lozenge MUCOUS MEM Q2H PRN PRN PRN Reason: COUGH Last Admin: 02/20/19 22:57 Dose: 1 lozenge Documented by: Medical Necessity - Tobacco Use Smoking Status: Never smoker Tobacco Use: Cigarettes, Cigars Assessment/Plan All Active Problems (Last Updated 02/18/19 @ 08:31 by Radhames Quach MD) HFrEF (heart failure with reduced ejection fraction) (Acute) NSTEMI (non-ST elevated myocardial infarction) (Ruled-out) CKD at baseline which is 1.5-1.8 mg/dL HTN R renal cyst Nephrolithiasis asymptomatic Heart failure SCr increased to 1.9 mg/dl on 02/24 . this is likely related to hemodynamic instability BP remains soft. please d/c lisinopril Continue lasix Check renal function in am Keep MAP > 65 Avoid nephrotoxins and overdiuresis
[2019-02-25] MEDS: Calcitriol 0.25 MCG Capsule PO (21:29)
[2019-02-25] MEDS: Finasteride 5 MG Tablet PO (21:29)
[2019-02-25 21:46] LABS: Bedside Glucose 147 mg/dL (70-110)
[2019-02-26] VITALS (16 sets, daily range): BP systolic 96–113; BP diastolic 44–71; PULSE 63–92; RESP 18–21; TEMP 36.8–37.1; O2SAT 85–98
[2019-02-26] MEDS: Ipratropium/Albuterol Sulfate 3 ML AMPUL.NEB INHALATION ×3 (02:05→15:09)
[2019-02-26] MEDS: Amiodarone 200 MG Tablet PO ×3 (06:37→21:32)
[2019-02-26 06:56] LABS: Bedside Glucose 123 mg/dL (70-110)
[2019-02-26] MEDS: Allopurinol 300 MG Tablet PO (09:09)
[2019-02-26] MEDS: BETHANECHOL CHLORIDE 25 MG TABLET 50 MG PO ×2 (09:09→21:32)
[2019-02-26] MEDS: dilTIAZem CD 180 MG Capsule PO ×2 (09:09→21:33)
[2019-02-26] MEDS: APIXABAN 2.5 MG TABLET PO ×2 (09:09→21:31)
[2019-02-26] MEDS: Nystatin Powder 15gm Bottle 1 APPLIC TOPICAL ×2 (09:10→21:36)
[2019-02-26] MEDS: Furosemide 40 MG Tablet PO (09:10)
[2019-02-26] MEDS: Metoprolol Tartrate 100 MG Tablet PO ×2 (09:10→21:30)
[2019-02-26] MEDS: guaiFENesin 1,200 MG Tablet 1200 MG PO ×2 (09:10→21:33)
--- NOTE | 2019-02-26 09:21 | PN.CARD_ITS ---
Subjectve: Patient seen and evaluated. Appears to be doing somewhat better. Still short of breath. Heart rate better controlled. Objective: Vital Signs Temp Pulse Resp BP Pulse Ox 98.2 F 85 18 113/55 L 96 02/26/19 09:07 02/26/19 09:10 02/26/19 09:07 02/26/19 09:10 02/26/19 09:07 Oxygen Flow Rate (L/min) [ 0 AMBULATING on Room Air] Oxygen Flow Rate (L/min) [At 0 REST on Room Air] Oxygen Flow Rate (L/min) 2 Oxygen Delivery Method Nasal Cannula Weight: 212 lb 11.937 oz Body Mass Index (BMI) 37.5 Finger Stick Blood Glucose 143 Intake and Output for Last 24 Hours 02/24/19 02/25/19 02/26/19 23:59 23:59 23:59 Intake Total 120 / 120 1440 / 1590 150 / 150 Output Total 725 / 725 375 / 500 275 / 275 Balance -605 / -605 1065 / 1090 -125 / -125 General: Awake, Alert, Oriented x 3 HEENT: PERRL, EOMI, Sclera Non Icteric Neck: Supple, Good ROM, No Lymph Node Enlargement Lungs: Diminished Rolo Bases Cardiovascular: Irregular Rhythm, Normal S1, Normal S2, No Murmurs, No Rubs, No Gallops Vascular: No Carotid Bruits, Normal Femoral Pulses, Normal Radial Pulses, Normal Dorsalis Pedal Pulse, Normal Posterior Tibial Pulses Abdomen: Bowel Sounds Present, Soft, Non Tender, No HSM, No Organomegaly Extremities: No Cyanosis, No Clubbing, No edema Musculoskeletal: No Erythema Skin: No Rashes Lymphatic: No Lymph Node Enlargement Neurological: No Focal Motor or Sensory Deficit Psych/Mental Status: Appropriate Rhythm: EKG: ECHO: Stress Test: Cardiac Cath: PCI: CT Surgery: Holter monitor: EPS: PPM: CXR: Chest CT Scan: Medical Necessity - Tobacco Use Smoking Status: Never smoker Tobacco Use: Cigarettes, Cigars Assessment/Plan 1. Acute on chronic congestive heart failure exacerbation. * Echocardiogram showed evidence of decline in the left ventricular ejection fraction. His previous echocardiogram had demonstrated an ejection fraction of approximately 40% in its now down to the 35% range. * Currently on metoprolol twice daily. Possible culprits for depressed left ventricular ejection fraction might be progression of coronary atherosclerosis, or simply rate related cardiomyopathy in the setting of atrial fibrillation with suboptimally controlled ventricular response. * May eventually need evaluation of his coronary anatomy. * He will need daily Lasix and appears to be doing much better 2. History of chronic atrial fibrillation. His ventricular response rate does not appear to be very well controlled. He has been chronically anticoagulated and he will remain on the metoprolol and I would recommend adding amiodarone to his regimen for rate control but not cardioversion. He has failed to DC cardioversion in the past. I will be willing to try DC cardioversion again on Wednesday and see how he responds. Patient is agreeable to the above * We will also try and add p.o. diltiazem * I have increased the amiodarone to 3 times a day. * If patient's heart rate still is uncontrolled by Wednesday would recommend DC cardioversion attempt On anticoagulation with Eliquis 3. History of coronary artery disease. No evidence of acute coronary syndrome. He does have a history of left internal mammary artery to the left anterior descending artery, saphenous vein graft to posterior descending artery, and saphenous vein graft to the circumflex artery. Troponin elevation is just borderline in the setting of acute CHF exacerbation. * We will continue with adjustment of beta blockers. * He did have a stress test about 2 years ago which did not demonstrate any evidence of ischemia. * 4. Hypertension * His blood pressure currently appears to be under good control and so I would not make any major changes. * Will discontinue other agents which may be causing hypotension like lisinopril and doxazosin temporarily * * Overall he appears to be doing much better. The plan will be to continue his current medical therapy. . * Thank you for allowing me to participate in the care of your patient. Please don't hesitate to call if any issues arise
[2019-02-26 11:30] LABS: Bedside Glucose 130 mg/dL (70-110)
--- NOTE | 2019-02-26 15:13 | CPS ---
Addendum entered and electronically signed by Ada Baker 02/26/19 15:15: Patient found not wearing nasal cannula,* Original Note: Patient would not wearing nasal cannula, SPO2 85%. Patient stated the oxygen makes him choke. Patient agreed to put 2LNC back on.
[2019-02-26 16:46] LABS: Bedside Glucose 150 mg/dL (70-110)
--- NOTE | 2019-02-26 17:34 | PCM.PROGNOTE ---
Patient Problems: Active and Suspected Problems (Last Updated 02/18/19 @ 08:31 by Radhames Quach MD) HFrEF (heart failure with reduced ejection fraction) (Acute) Subjective: Patient was seen and examined today, he does not complain of any chest discomfort or shortness of breath. His rate has been better controlled today in comparison with yesterday. Cardiology is planning on having the patient undergo cardioversion tomorrow. - Physical Exam Vitals/I&O's: Vital Signs Temp Pulse Resp BP Pulse Ox 98.7 F 92 18 101/44 L 94 02/26/19 14:55 02/26/19 15:09 02/26/19 15:09 02/26/19 14:55 02/26/19 15:13 Oxygen Flow Rate (L/min) [ 0 AMBULATING on Room Air] Oxygen Flow Rate (L/min) [At 0 REST on Room Air] Oxygen Flow Rate (L/min) 2 Oxygen Delivery Method Nasal Cannula Weight: 96.5 kg Body Mass Index (BMI) 37.5 Finger Stick Blood Glucose 143 Intake and Output for Last 24 Hours 02/24/19 02/25/19 02/26/19 23:59 23:59 23:59 Intake Total 120 / 120 1440 / 1590 630 / 630 Output Total 725 / 725 375 / 500 475 / 475 Balance -605 / -605 1065 / 1090 155 / 155 General: Alert, Oriented x3, Cooperative, No apparent distress, Well developed, Well nourished HEENT: Atraumatic, PERRLA, EOMI, Normocephalic Oral: Moist Mucosa Neck: Supple, Trachea Midline, Thyroid Normal Size and Texture Lungs: Clear to auscultation, No rhonchi, No wheeze, Diminished Cardiovascular: No murmurs, PMI Normal, Irregular Rate, No rub noted Abdomen: Bowel Sounds Present, Soft, Non Tender, Non-Distended, No hernias noted Extremities: No clubbing, No cyanosis, No edema, Capillary Refill Less than 3 Seconds Skin: No rashes, No breakdown Musculoskeletal: No Tenderness to Palpation of Joints or Extremities Neurological: Cranial nerves II-XII grossly intact, Neuro grossly intact, Sensory exam intact to light touch and pain, Coordination normal Psych/Mental Status: Normal Affect, Appropriate, Alert and oriented to time, place, person, mood and affect Laboratory Results 02/25/19 21:37: POC Glucose 147 H 02/26/19 06:33: POC Glucose 123 H 02/26/19 11:22: POC Glucose 130 H 02/26/19 16:37: POC Glucose 150 H Current Medications Acetaminophen (Tylenol) 650 mg PO Q6H PRN PRN PRN Reason: Pain Score 1-3/Temp > 100.7 F Albuterol Sulfate (Ventolin Aerosols) 2.5 mg INHALATION Q4H PRN PRN PRN Reason: Shortness of breath, wheezing Albuterol/Ipratropium (Duoneb) 3 ml INHALATION Q4H.RT [facility] Last Admin: 02/26/19 15:09 Dose: 3 ml Documented by: Allopurinol (Zyloprim) 300 mg PO DAILYCM [facility] Last Admin: 02/26/19 09:09 Dose: 300 mg Documented by: Amiodarone HCl (Cordarone) 200 mg PO TID [facility] Last Admin: 02/26/19 14:29 Dose: 200 mg Documented by: Apixaban (Eliquis) 2.5 mg PO BID [facility] Last Admin: 02/26/19 09:09 Dose: 2.5 mg Documented by: Bethanechol Chloride (Bethanechol Chloride) 50 mg PO BID [facility] Last Admin: 02/26/19 09:09 Dose: 50 mg Documented by: Calcitriol (Rocaltrol) 0.25 mcg PO QHS [facility] Last Admin: 02/25/19 21:29 Dose: 0.25 mcg Documented by: Colchicine (Colchicine) 0.6 mg PO DAILY PRN PRN PRN Reason: gout flare Diltiazem HCl (Cardizem Cd) 180 mg PO Q12 [facility] Last Admin: 02/26/19 09:09 Dose: 180 mg Documented by: Ergocalciferol (Vitamin D) 50,000 unit PO WE [facility] Last Admin: 02/22/19 22:43 Dose: 50,000 unit Documented by: Finasteride (Proscar) 5 mg PO DAILY@2200 [facility] Last Admin: 02/25/19 21:29 Dose: 5 mg Documented by: Furosemide (Lasix) 40 mg PO DAILY [facility] Last Admin: 02/26/19 09:10 Dose: 40 mg Documented by: Guaifenesin (Mucinex) 1,200 mg PO BID [facility] Last Admin: 02/26/19 09:10 Dose: 1,200 mg Documented by: Sodium Chloride () 250 mls @ 15 mls/hr IV .[id number] PRN PRN Reason: Saline Flush Sodium Chloride () 500 mls @ 0 mls/hr IV .Q0M [facility] Insulin Human Lispro (Humalog Kwikpen (Bkc)) 0 unit SC TIDAC [facility]; Protocol Last Admin: 02/26/19 11:30 Dose: Not Given Documented by: Melatonin (Melatonin) 3 mg PO QHS PRN PRN PRN Reason: INSOMNIA Last Admin: 02/20/19 23:56 Dose: 3 mg Documented by: Metoprolol Tartrate (Lopressor (Beta Fiordaliza)) 100 mg PO BID [facility] Last Admin: 02/26/19 09:10 Dose: 100 mg Documented by: Nystatin (Mycostatin Powder) 1 applic TOPICAL BID [facility]; Protocol Last Admin: 02/26/19 09:10 Dose: 1 applicatio Documented by: Ondansetron HCl (Zofran) 4 mg IV Q8H PRN PRN PRN Reason: NAUSEA/VOMITING Oxycodone HCl (Oxyir) 5 mg PO Q4H PRN PRN PRN Reason: Pain Score 4-10/10 Sodium Chloride () 10 - 40 ml IV UD PRN PRN Reason: SALINE FLUSH Last Admin: 02/21/19 17:35 Dose: 10 ml Documented by: Throat Lozenges (Cepacol Sore Throat Lozenge) 1 lozenge MUCOUS MEM Q2H PRN PRN PRN Reason: COUGH Last Admin: 02/20/19 22:57 Dose: 1 lozenge Documented by: Medical Necessity - Tobacco Use Smoking Status: Never smoker Tobacco Use: Cigarettes, Cigars Assessment/Plan All Active Problems (Last Updated 02/18/19 @ 08:31 by Radhames Quach MD) HFrEF (heart failure with reduced ejection fraction) (Acute) NSTEMI (non-ST elevated myocardial infarction) (Ruled-out) #1 acute on chronic congestive heart failure with reduced ejection fraction-continue present medication, cardiology is participating in his care, patient will undergo cardioversion tomorrow #2 chronic atrial fibrillation with poor ventricular response-patient's heart rate is better controlled today, he will undergo cardioversion tomorrow #3 coronary artery disease #4 chronic hypoxic respiratory failure #5 chronic obstructive pulmonary disease #6 essential hypertension #7 chronic kidney disease stage III #8 elevated troponin not secondary to [id number] did not feel the patient had a non-STEMI Code Visit Inpatient E&M: 52705 Subs Hosp L2
[2019-02-26] MEDS: Finasteride 5 MG Tablet PO (21:34)
[2019-02-26] MEDS: Calcitriol 0.25 MCG Capsule PO (21:50)
[2019-02-27] VITALS (20 sets, daily range): BP systolic 102–120; BP diastolic 47–65; PULSE 51–87; RESP 16–20; TEMP 36.3–36.7; O2SAT 85–98
--- NOTE | 2019-02-27 05:30 | EKG12_ITS ---
Test Reason : POST CARDIOVERSION Blood Pressure : / mmHG Vent. Rate : 061 BPM Atrial Rate : 061 BPM P-R Int : 198 ms QRS Dur : 108 ms QT Int : 442 ms P-R-T Axes : 076 002 253 degrees QTc Int : 444 ms Sinus rhythm with frequent Premature ventricular complexes ST & T wave abnormality, consider lateral ischemia Abnormal ECG When compared with ECG of 27-FEB-2019 05:29, MANUAL COMPARISON REQUIRED, DATA IS UNCONFIRMED Confirmed by SIMON GALEANO ([id number]), video effects editor ELI LAMAS ([id number]) on 03/03/2019 11:40:05 AM Referred By: Sreekanth Bunn Confirmed By:SIMON GALEANO
[2019-02-27] MEDS: Amiodarone 200 MG Tablet PO ×3 (05:32→21:45)
[2019-02-27 06:09] LABS: Anion Gap 8 (5-15); BUN 30 mg/dL (7-18); BUN/Creat Ratio 15.1 RATIO (10-20); Calcium,Total 8.9 mg/dL (8.5-10.1); Chloride 102 mmol/L (98-107); Creatinine, Serum 1.99 mg/dL (0.70-1.30); EST Glomerular Filtration Rate 35 mL/min (>60); Est Glom Filt Rate - Afr Amer 42 mL/min (>60); Estimated Creatinine Clearance 28.05 ml/min; Glucose 110 mg/dL (74-106); Potassium 3.3 mmol/L (3.5-5.1); Sodium Level 142 mmol/L (136-145)
[2019-02-27] MEDS: dilTIAZem CD 180 MG Capsule PO ×2 (09:12→21:45)
[2019-02-27] MEDS: Allopurinol 300 MG Tablet PO (09:12)
[2019-02-27] MEDS: BETHANECHOL CHLORIDE 25 MG TABLET 50 MG PO ×2 (09:12→21:45)
[2019-02-27] MEDS: Metoprolol Tartrate 100 MG Tablet PO ×2 (09:12→21:45)
[2019-02-27] MEDS: APIXABAN 2.5 MG TABLET PO ×2 (09:12→21:46)
[2019-02-27] MEDS: Furosemide 40 MG Tablet PO (09:12)
[2019-02-27] MEDS: guaiFENesin 1,200 MG Tablet 1200 MG PO ×2 (09:13→21:46)
[2019-02-27] MEDS: Nystatin Powder 15gm Bottle 1 APPLIC TOPICAL ×2 (09:13→21:46)
--- NOTE | 2019-02-27 11:04 | PCM.PN.REN ---
Patient Problems: Active and Suspected Problems (Last Updated 02/18/19 @ 08:31 by Radhames Quach MD) HFrEF (heart failure with reduced ejection fraction) (Acute) Objective: doing good no CP no SOB - Physical Exam Vitals/I&O's: Vital Signs Temp Pulse Resp BP Pulse Ox 97.8 F 60 18 118/52 L 95 02/27/19 08:25 02/27/19 09:12 02/27/19 08:25 02/27/19 08:25 02/27/19 08:45 Oxygen Flow Rate (L/min) [ 0 AMBULATING on Room Air] Oxygen Flow Rate (L/min) [At 0 REST on Room Air] Oxygen Flow Rate (L/min) 2 Oxygen Delivery Method Nasal Cannula Weight: 96.5 kg Body Mass Index (BMI) 37.5 Finger Stick Blood Glucose 143 Intake and Output for Last 24 Hours 02/25/19 02/26/19 02/27/19 23:59 23:59 23:59 Intake Total 1440 / 1590 1110 / 1590 720 / 720 Output Total 375 / 500 700 / 1100 600 / 600 Balance 1065 / 1090 410 / 490 120 / 120 Laboratory Results 02/26/19 11:22: POC Glucose 130 H 02/26/19 16:37: POC Glucose 150 H 02/27/19 05:15: Sodium 142, Potassium 3.3 L, Chloride 102, Carbon Dioxide 32.0, Anion Gap 8, BUN 30 H, Creatinine 1.99 H, Estim Creat Clear Calc 28.05, Est GFR (MDRD) Af Amer 42 L, Est GFR (MDRD) Non-Af 35 L, BUN/Creatinine Ratio 15.1, Glucose 110 H, Calcium 8.9 Current Medications Acetaminophen (Tylenol) 650 mg PO Q6H PRN PRN PRN Reason: Pain Score 1-3/Temp > 100.7 F Albuterol Sulfate (Ventolin Aerosols) 2.5 mg INHALATION Q4H PRN PRN PRN Reason: Shortness of breath, wheezing Albuterol/Ipratropium (Duoneb) 3 ml INHALATION Q4H.RT [facility] Last Admin: 02/27/19 07:25 Dose: Not Given Documented by: Allopurinol (Zyloprim) 300 mg PO DAILYCM [facility] Last Admin: 02/27/19 09:12 Dose: 300 mg Documented by: Amiodarone HCl (Cordarone) 200 mg PO TID [facility] Last Admin: 02/27/19 05:32 Dose: 200 mg Documented by: Apixaban (Eliquis) 2.5 mg PO BID [facility] Last Admin: 02/27/19 09:12 Dose: 2.5 mg Documented by: Bethanechol Chloride (Bethanechol Chloride) 50 mg PO BID [facility] Last Admin: 02/27/19 09:12 Dose: 50 mg Documented by: Calcitriol (Rocaltrol) 0.25 mcg PO QHS [facility] Last Admin: 02/26/19 21:50 Dose: 0.25 mcg Documented by: Colchicine (Colchicine) 0.6 mg PO DAILY PRN PRN PRN Reason: gout flare Diltiazem HCl (Cardizem Cd) 180 mg PO Q12 [facility] Last Admin: 02/27/19 09:12 Dose: 180 mg Documented by: Ergocalciferol (Vitamin D) 50,000 unit PO WE [facility] Last Admin: 02/22/19 22:43 Dose: 50,000 unit Documented by: Finasteride (Proscar) 5 mg PO DAILY@2200 [facility] Last Admin: 02/26/19 21:34 Dose: 5 mg Documented by: Furosemide (Lasix) 40 mg PO DAILY [facility] Last Admin: 02/27/19 09:12 Dose: 40 mg Documented by: Guaifenesin (Mucinex) 1,200 mg PO BID [facility] Last Admin: 02/27/19 09:13 Dose: 1,200 mg Documented by: Sodium Chloride () 250 mls @ 15 mls/hr IV .[id number] PRN PRN Reason: Saline Flush Sodium Chloride () 500 mls @ 0 mls/hr IV .Q0M [facility] Melatonin (Melatonin) 3 mg PO QHS PRN PRN PRN Reason: INSOMNIA Last Admin: 02/20/19 23:56 Dose: 3 mg Documented by: Metoprolol Tartrate (Lopressor (Beta Fiordaliza)) 100 mg PO BID [facility] Last Admin: 02/27/19 09:12 Dose: 100 mg Documented by: Nystatin (Mycostatin Powder) 1 applic TOPICAL BID [facility]; Protocol Last Admin: 02/27/19 09:13 Dose: 1 applicatio Documented by: Ondansetron HCl (Zofran) 4 mg IV Q8H PRN PRN PRN Reason: NAUSEA/VOMITING Oxycodone HCl (Oxyir) 5 mg PO Q4H PRN PRN PRN Reason: Pain Score 4-10/10 Sodium Chloride () 10 - 40 ml IV UD PRN PRN Reason: SALINE FLUSH Last Admin: 02/21/19 17:35 Dose: 10 ml Documented by: Throat Lozenges (Cepacol Sore Throat Lozenge) 1 lozenge MUCOUS MEM Q2H PRN PRN PRN Reason: COUGH Last Admin: 02/20/19 22:57 Dose: 1 lozenge Documented by: Medical Necessity - Tobacco Use Smoking Status: Never smoker Tobacco Use: Cigarettes, Cigars Assessment/Plan All Active Problems (Last Updated 02/18/19 @ 08:31 by Radhames Quach MD) HFrEF (heart failure with reduced ejection fraction) (Acute) NSTEMI (non-ST elevated myocardial infarction) (Ruled-out) CKD at baseline which is 1.5-1.8 mg/dL HTN R renal cyst Nephrolithiasis asymptomatic Heart failure SCr increased to 1.9 mg/dl on 02/24 . today 1.99 with mild contraction alkalosis -this is likely related to hemodynamic instability BP remains soft. hold lisinopril Continue lasix Check renal function in am Keep MAP > 65 Avoid nephrotoxins and overdiuresis
--- NOTE | 2019-02-27 13:02 | PN.CARD_ITS ---
Subjectve: Patient seen and evaluated. Appears to be doing better. Objective: Vital Signs Temp Pulse Resp BP Pulse Ox 97.4 F L 61 18 111/57 L 95 02/27/19 12:45 02/27/19 12:45 02/27/19 12:45 02/27/19 12:45 02/27/19 12:45 Oxygen Flow Rate (L/min) [ 0 AMBULATING on Room Air] Oxygen Flow Rate (L/min) [At 0 REST on Room Air] Oxygen Flow Rate (L/min) 2 Oxygen Delivery Method Nasal Cannula Weight: 212 lb 11.937 oz Body Mass Index (BMI) 37.5 Finger Stick Blood Glucose 143 Intake and Output for Last 24 Hours 02/25/19 02/26/19 02/27/19 23:59 23:59 23:59 Intake Total 1440 / 1590 1110 / 1590 720 / 720 Output Total 375 / 500 700 / 1100 600 / 600 Balance 1065 / 1090 410 / 490 120 / 120 General: Awake, Alert, Oriented x 3 HEENT: PERRL, EOMI, Sclera Non Icteric Neck: Supple, Good ROM, No Lymph Node Enlargement Lungs: Clear to auscultation Cardiovascular: Irregular Rhythm, Normal S1, Normal S2, No Murmurs, No Rubs, No Gallops Vascular: No Carotid Bruits, Normal Femoral Pulses, Normal Radial Pulses, Normal Dorsalis Pedal Pulse, Normal Posterior Tibial Pulses Abdomen: Bowel Sounds Present, Soft, Non Tender, No HSM, No Organomegaly Extremities: No Cyanosis, No Clubbing, No edema Skin: No Rashes Lymphatic: No Lymph Node Enlargement Neurological: No Focal Motor or Sensory Deficit Psych/Mental Status: Appropriate 02/27/19 05:15: Sodium 142, Potassium 3.3 L, Chloride 102, Carbon Dioxide 32.0, Anion Gap 8, BUN 30 H, Creatinine 1.99 H, Est GFR (MDRD) Af Amer 42 L, Est GFR (MDRD) Non-Af 35 L, BUN/Creatinine Ratio 15.1, Glucose 110 H, Calcium 8.9 Rhythm: EKG: ECHO: Stress Test: Cardiac Cath: PCI: CT Surgery: Holter monitor: EPS: PPM: CXR: Chest CT Scan: Medical Necessity - Tobacco Use Smoking Status: Never smoker Tobacco Use: Cigarettes, Cigars Assessment/Plan 1. Acute on chronic congestive heart failure exacerbation. * Echocardiogram showed evidence of decline in the left ventricular ejection fraction. His previous echocardiogram had demonstrated an ejection fraction of approximately 40% in its now down to the 35% range. * Currently on metoprolol twice daily. Possible culprits for depressed left ventricular ejection fraction might be progression of coronary atherosclerosis, or simply rate related cardiomyopathy in the setting of atrial fibrillation with suboptimally controlled ventricular response. * May eventually need evaluation of his coronary anatomy. * He will need daily Lasix and appears to be doing much better 2. History of chronic atrial fibrillation. His ventricular response rate does not appear to be very well controlled. He has been chronically anticoagulated and he will remain on the metoprolol and I would recommend adding amiodarone to his regimen for rate control but not cardioversion. He has failed to DC cardioversion in the past. Patient is agreeable to the above * He underwent DC cardioversion today successfully to sinus rhythm * Plan will be to continue amiodarone 3 times daily for 1 week * Then twice daily for 1 week * Then daily On anticoagulation with Eliquis 3. History of coronary artery disease. No evidence of acute coronary syndrome. He does have a history of left internal mammary artery to the left anterior descending artery, saphenous vein graft to posterior descending artery, and saphenous vein graft to the circumflex artery. Troponin elevation is just borderline in the setting of acute CHF exacerbation. * We will continue with adjustment of beta blockers. * He did have a stress test about 2 years ago which did not demonstrate any evidence of ischemia. * 4. Hypertension * His blood pressure currently appears to be under good control and so I would not make any major changes. * Will discontinue other agents which may be causing hypotension like lisinopril and doxazosin temporarily * * Overall he appears to be doing much better. The plan will be to continue his current medical therapy. . * Thank you for allowing me to participate in the care of your patient. Please don't hesitate to call if any issues arise
--- NOTE | 2019-02-27 13:04 | CARDIOVERS ---
Cardioversion Cardioversion: DC cardioversion Patient was noted to be in persistent atrial fibrillation symptomatic with heart failure. Was seen by Dr. Leonard of the critical care division. Informed consent was obtained. Anterior and posterior pads were applied. The patient was then administered 6 mg of intravenous etomidate. 200 J of synchronized DC cardioversion energy were applied and were not successful in maintaining sinus rhythm. 300 J of synchronized DC cardioversion energy were then applied with prompt reversal to sinus rhythm. Patient tolerated the procedure well. Conclusion: Successful DC cardioversion from atrial fibrillation to sinus rhythm.
--- NOTE | 2019-02-27 13:16 | PRO.PCM_ITS ---
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 (6) Ischemic cardiomyopathy Status: Chronic (7) Longstanding persistent atrial fibrillation Status: Chronic (8) Acute on chronic systolic (congestive) heart failure Status: Chronic (9) CVA (cerebral vascular accident) Status: Chronic Comment: lower left cerebellar hemisphere (10) Essential (primary) hypertension Status: Chronic (11) Hyperlipidemia Status: Chronic Qualifiers: Hyperlipidemia type: mixed hyperlipidemia Qualified Code(s): E78.2 - Mixed hyperlipidemia Procedure Report Date of Procedure: 02/27/19 - Conscious sedation CONSCIOUS SEDATION REPORT BRIEF HISTORY OF PRESENT ILLNESS: The patient is a 78-year-old [male] who presented to [facility] for congestive heart failure secondary to due to underlying atrial fibrillation. Dr. Greenfield has requested a cardioversion and has asked me to provide conscious sedation. The patient reports no PO intake since midnight. The patient does have a history of [obstructive sleep apnea], but is noncompliant. The patient reports [a] history of smoking but denies COPD. The patient denies any recent constitutional symptoms such as fevers, chills, nausea or vomiting. The patient denies previous anesthetic complications. PHYSICAL EXAMINATION: VITAL SIGNS: Reviewed and were acceptable. GENERAL: The patient is a [male], in no apparent distress, speaking in full sentences. HEENT: Normocephalic, atraumatic. Mucous membranes are moist and pink. Good mouth opening noted. Trachea is midline. Good neck mobility. MP III CHEST: S1, S2 irregularly irregular. No murmurs, rubs or gallops were noted. LUNGS: Clear to auscultation bilaterally without appreciable wheezes, rales or rhonchi. ABDOMEN: Soft, nontender, nondistended. Positive bowel sounds. EXTREMITIES: There is no clubbing, cyanosis or edema. ASA Class: II DESCRIPTION OF PROCEDURE: After confirmation of informed consent, the patient's anesthesia plan was reviewed in detail. [Etomidate] was chosen. Risks and benefits were reviewed and the patient agreed to proceed. At 12:06 PM, the patient was given [4 mg of etomidate]. [The patient required a total of] 6[mg of][etomidate] [throughout the procedure to achieve appropriate sedation.] The patient achieved an appropriate level of sedation and received 2 attempt[s] synchronized cardioversion, at 200 J and 300 J respectively by [Dr. Mariscal] at the bedside. This was [successful] in achieving normal sinus rhythm. The patient was monitored until 12:14 PM, at which time the patient reached their baseline mental status and function. The patient tolerated the procedure well. COMPLICATIONS: None ESTIMATED BLOOD LOSS: None RECOMMENDATIONS: Okay to recover in usual fashion. Code Visit [id number]: Other Procedure See Report - [id number]
--- NOTE | 2019-02-27 18:21 | PN_ITS ---
Patient Problems: Active and Suspected Problems (Last Updated 02/18/19 @ 08:31 by Radhames Quach MD) HFrEF (heart failure with reduced ejection fraction) (Acute) Subjective: Patient was seen and examined today, he underwent cardioversion today which was successful, he is now in sinus rhythm with a rate of approximately 70-75, he does have PVCs noted. Patient does not complain of any shortness of breath or chest discomfort. Patient states his daughter and sister will be here tomorrow to take him home, he does not feel comfortable going home today. - Physical Exam Vitals/I&O's: Vital Signs Temp Pulse Resp BP Pulse Ox 97.7 F L 69 18 107/47 L 95 02/27/19 17:10 02/27/19 17:10 02/27/19 17:10 02/27/19 17:10 02/27/19 17:10 Oxygen Flow Rate (L/min) [ 0 AMBULATING on Room Air] Oxygen Flow Rate (L/min) [At 0 REST on Room Air] Oxygen Flow Rate (L/min) 2 Oxygen Delivery Method Nasal Cannula Weight: 96.5 kg Body Mass Index (BMI) 37.5 Finger Stick Blood Glucose 143 Intake and Output for Last 24 Hours 02/25/19 02/26/19 02/27/19 23:59 23:59 23:59 Intake Total 1440 / 1590 1110 / 1590 920 / 920 Output Total 375 / 500 700 / 1100 875 / 875 Balance 1065 / 1090 410 / 490 45 / 45 General: Alert, Oriented x3, Cooperative, No apparent distress, Well developed HEENT: Atraumatic, PERRLA, EOMI, Normocephalic Oral: Moist Mucosa Neck: Supple, Trachea Midline, Thyroid Normal Size and Texture Lungs: Clear to auscultation, Normal air movement, No rhonchi, No wheeze, No rales Cardiovascular: Regular rate, Regular Rhythm, Normal S1, Normal S2, No murmurs, PMI Normal, No rub noted, No Gallop Abdomen: Bowel Sounds Present, Soft, Non Tender, Non-Distended Extremities: Capillary Refill Less than 3 Seconds Skin: No rashes, No breakdown Musculoskeletal: No Tenderness to Palpation of Joints or Extremities Neurological: Cranial nerves II-XII grossly intact, Neuro grossly intact, Sensory exam intact to light touch and pain Psych/Mental Status: Normal Affect, Appropriate, Alert and oriented to time, place, person, mood and affect Laboratory Results 02/27/19 05:15: Sodium 142, Potassium 3.3 L, Chloride 102, Carbon Dioxide 32.0, Anion Gap 8, BUN 30 H, Creatinine 1.99 H, Estim Creat Clear Calc 28.05, Est GFR (MDRD) Af Amer 42 L, Est GFR (MDRD) Non-Af 35 L, BUN/Creatinine Ratio 15.1, Glucose 110 H, Calcium 8.9 Current Medications Acetaminophen (Tylenol) 650 mg PO Q6H PRN PRN PRN Reason: Pain Score 1-3/Temp > 100.7 F Albuterol Sulfate (Ventolin Aerosols) 2.5 mg INHALATION Q4H PRN PRN PRN Reason: Shortness of breath, wheezing Albuterol/Ipratropium (Duoneb) 3 ml INHALATION Q4H.RT [facility] Last Admin: 02/27/19 15:30 Dose: Not Given Documented by: Allopurinol (Zyloprim) 300 mg PO DAILYCM [facility] Last Admin: 02/27/19 09:12 Dose: 300 mg Documented by: Amiodarone HCl (Cordarone) 200 mg PO TID [facility] Last Admin: 02/27/19 14:29 Dose: 200 mg Documented by: Apixaban (Eliquis) 2.5 mg PO BID [facility] Last Admin: 02/27/19 09:12 Dose: 2.5 mg Documented by: Bethanechol Chloride (Bethanechol Chloride) 50 mg PO BID [facility] Last Admin: 02/27/19 09:12 Dose: 50 mg Documented by: Calcitriol (Rocaltrol) 0.25 mcg PO QHS [facility] Last Admin: 02/26/19 21:50 Dose: 0.25 mcg Documented by: Colchicine (Colchicine) 0.6 mg PO DAILY PRN PRN PRN Reason: gout flare Diltiazem HCl (Cardizem Cd) 180 mg PO Q12 [facility] Last Admin: 02/27/19 09:12 Dose: 180 mg Documented by: Ergocalciferol (Vitamin D) 50,000 unit PO WE [facility] Last Admin: 02/22/19 22:43 Dose: 50,000 unit Documented by: Finasteride (Proscar) 5 mg PO DAILY@2200 [facility] Last Admin: 02/26/19 21:34 Dose: 5 mg Documented by: Furosemide (Lasix) 40 mg PO DAILY [facility] Last Admin: 02/27/19 09:12 Dose: 40 mg Documented by: Guaifenesin (Mucinex) 1,200 mg PO BID [facility] Last Admin: 02/27/19 09:13 Dose: 1,200 mg Documented by: Sodium Chloride () 250 mls @ 15 mls/hr IV .[id number] PRN PRN Reason: Saline Flush Sodium Chloride () 500 mls @ 0 mls/hr IV .Q0M [facility] Melatonin (Melatonin) 3 mg PO QHS PRN PRN PRN Reason: INSOMNIA Last Admin: 02/20/19 23:56 Dose: 3 mg Documented by: Metoprolol Tartrate (Lopressor (Beta Fiordaliza)) 100 mg PO BID [facility] Last Admin: 02/27/19 09:12 Dose: 100 mg Documented by: Nystatin (Mycostatin Powder) 1 applic TOPICAL BID [facility]; Protocol Last Admin: 02/27/19 09:13 Dose: 1 applicatio Documented by: Ondansetron HCl (Zofran) 4 mg IV Q8H PRN PRN PRN Reason: NAUSEA/VOMITING Oxycodone HCl (Oxyir) 5 mg PO Q4H PRN PRN PRN Reason: Pain Score 4-10/10 Sodium Chloride () 10 - 40 ml IV UD PRN PRN Reason: SALINE FLUSH Last Admin: 02/21/19 17:35 Dose: 10 ml Documented by: Throat Lozenges (Cepacol Sore Throat Lozenge) 1 lozenge MUCOUS MEM Q2H PRN PRN PRN Reason: COUGH Last Admin: 02/20/19 22:57 Dose: 1 lozenge Documented by: Medical Necessity - Tobacco Use Smoking Status: Never smoker Tobacco Use: Cigarettes, Cigars Assessment/Plan All Active Problems (Last Updated 02/18/19 @ 08:31 by Radahmes Quach MD) HFrEF (heart failure with reduced ejection fraction) (Acute) NSTEMI (non-ST elevated myocardial infarction) (Ruled-out) #1 acute on chronic congestive heart failure with reduced ejection fraction- continue present medication, cardiology is participating in his care, patient qualifies for continuous oxygen at rest at this time, and will be set up [facility] a portable tank for discharge. Patient already has an oxygen concentrator at home. #2 Atrial fibrillation-converted to normal sinus rhythm after cardioversion, patient will remain on his present medications #3 coronary artery disease #4 chronic hypoxic respiratory failure #5 chronic obstructive pulmonary disease #6 essential hypertension #7 chronic kidney disease stage III #8 elevated troponin not secondary to [id number] did not feel the patient had a non-STEMI Code Visit Inpatient E&M: 62057 Subs Hosp L2
[2019-02-27] MEDS: Ipratropium/Albuterol Sulfate 3 ML AMPUL.NEB INHALATION (20:05)
[2019-02-27] MEDS: Calcitriol 0.25 MCG Capsule PO (21:44)
[2019-02-27] MEDS: Finasteride 5 MG Tablet PO (21:45)
[2019-02-27 22:40] LABS: Bedside Glucose 152 mg/dL (70-110)
[2019-02-28] VITALS (8 sets, daily range): BP systolic 115–126; BP diastolic 48–60; PULSE 56–61; RESP 16–18; TEMP 36.6–36.8; O2SAT 95–97
[2019-02-28] MEDS: Amiodarone 200 MG Tablet PO ×2 (05:13→14:27)
[2019-02-28] MEDS: Ipratropium/Albuterol Sulfate 3 ML AMPUL.NEB INHALATION (07:29)
--- NOTE | 2019-02-28 08:16 | PN.CARD_ITS ---
Subjectve: Patient seen and evaluated. Appears to be doing better. Objective: Vital Signs Temp Pulse Resp BP Pulse Ox 98.0 F 57 L 16 119/56 L 97 02/28/19 03:45 02/28/19 07:29 02/28/19 07:29 02/28/19 03:45 02/28/19 07:29 Oxygen Flow Rate (L/min) [ 0 AMBULATING on Room Air] Oxygen Flow Rate (L/min) [At 0 REST on Room Air] Oxygen Flow Rate (L/min) 2 Oxygen Delivery Method Nasal Cannula Weight: 212 lb 11.937 oz Body Mass Index (BMI) 37.5 Finger Stick Blood Glucose 143 Intake and Output for Last 24 Hours 02/26/19 02/27/19 02/28/19 23:59 23:59 23:59 Intake Total 1110 / 1590 1270 / 1270 50 / 50 Output Total 700 / 1100 1560 / 1560 100 / 100 Balance 410 / 490 -290 / -290 -50 / -50 General: Awake, Alert, Oriented x 3 HEENT: PERRL, EOMI, Sclera Non Icteric Neck: Supple, Good ROM, No Lymph Node Enlargement Lungs: Clear to auscultation Cardiovascular: Regular Rhythm, Normal S1, Normal S2, No Murmurs, No Rubs, No Gallops Vascular: No Carotid Bruits, Normal Femoral Pulses, Normal Radial Pulses, Normal Dorsalis Pedal Pulse, Normal Posterior Tibial Pulses Abdomen: Bowel Sounds Present, Soft, Non Tender, No HSM, No Organomegaly Extremities: No Cyanosis, No Clubbing, No edema Musculoskeletal: No Erythema Skin: No Rashes Lymphatic: No Lymph Node Enlargement Neurological: No Focal Motor or Sensory Deficit Psych/Mental Status: Appropriate Rhythm: EKG: ECHO: Stress Test: Cardiac Cath: PCI: CT Surgery: Holter monitor: EPS: PPM: CXR: Chest CT Scan: Medical Necessity - Tobacco Use Smoking Status: Never smoker Tobacco Use: Cigarettes, Cigars Assessment/Plan 1. Acute on chronic congestive heart failure exacerbation. * Echocardiogram showed evidence of decline in the left ventricular ejection fraction. His previous echocardiogram had demonstrated an ejection fraction of approximately 40% in its now down to the 35% range. * Currently on metoprolol twice daily. Possible culprits for depressed left ventricular ejection fraction might be progression of coronary atherosclerosis, or simply rate related cardiomyopathy in the setting of atrial fibrillation with suboptimally controlled ventricular response. * May eventually need evaluation of his coronary anatomy. * He will need daily Lasix and appears to be doing much better 2. History of chronic atrial fibrillation. His ventricular response rate does not appear to be very well controlled. He has been chronically anticoagulated and he will remain on the metoprolol and I would recommend adding amiodarone to his regimen for rate control but not cardioversion. He has failed to DC cardioversion in the past. Patient is agreeable to the above * He underwent DC cardioversion successfully to sinus rhythm * Plan will be to continue amiodarone 3 times daily for 1 week * Then twice daily for 1 week * Then daily On anticoagulation with Eliquis 3. History of coronary artery disease. No evidence of acute coronary syndrome. He does have a history of left internal mammary artery to the left anterior descending artery, saphenous vein graft to posterior descending artery, and saphenous vein graft to the circumflex artery. Troponin elevation is just borderline in the setting of acute CHF exacerbation. * We will continue with adjustment of beta blockers. * He did have a stress test about 2 years ago which did not demonstrate any evidence of ischemia. * 4. Hypertension * His blood pressure currently appears to be under good control and so I would not make any major changes. * Will discontinue other agents which may be causing hypotension like lisinopril and doxazosin temporarily * * Overall he appears to be doing much better. The plan will be to continue his current medical therapy. * From my standpoint he can be discharged for outpatient follow-up he will see me in my office in 2 to 4 weeks.. * Thank you for allowing me to participate in the care of your patient. Please don't hesitate to call if any issues arise
[2019-02-28] MEDS: dilTIAZem CD 180 MG Capsule PO (09:31)
[2019-02-28] MEDS: APIXABAN 2.5 MG TABLET PO (09:31)
[2019-02-28] MEDS: BETHANECHOL CHLORIDE 25 MG TABLET 50 MG PO (09:31)
[2019-02-28] MEDS: Furosemide 40 MG Tablet PO (09:31)
[2019-02-28] MEDS: guaiFENesin 1,200 MG Tablet 1200 MG PO (09:31)
[2019-02-28] MEDS: Metoprolol Tartrate 100 MG Tablet PO (09:31)
[2019-02-28] MEDS: Allopurinol 300 MG Tablet PO (09:32)
[2019-02-28] MEDS: Nystatin Powder 15gm Bottle 1 APPLIC TOPICAL (09:32)
--- NOTE | 2019-02-28 10:24 | PCM.PN.REN ---
Patient Problems: Active and Suspected Problems (Last Updated 02/18/19 @ 08:31 by Radhames Quach MD) HFrEF (heart failure with reduced ejection fraction) (Acute) Subjective: doing well - Physical Exam Vitals/I&O's: Vital Signs Temp Pulse Resp BP Pulse Ox 97.9 F 60 18 126/60 H 95 02/28/19 09:29 02/28/19 09:31 02/28/19 09:29 02/28/19 09:29 02/28/19 09:29 Oxygen Flow Rate (L/min) [ 0 AMBULATING on Room Air] Oxygen Flow Rate (L/min) [At 0 REST on Room Air] Oxygen Flow Rate (L/min) 2 Oxygen Delivery Method Nasal Cannula Weight: 96.5 kg Body Mass Index (BMI) 37.5 Finger Stick Blood Glucose 143 Intake and Output for Last 24 Hours 02/26/19 02/27/19 02/28/19 23:59 23:59 23:59 Intake Total 1110 / 1590 1270 / 1270 50 / 50 Output Total 700 / 1100 1560 / 1560 100 / 100 Balance 410 / 490 -290 / -290 -50 / -50 General: Alert, Oriented x3, Cooperative HEENT: Atraumatic, PERRLA, EOMI, Normocephalic Neck: Supple, No JVD, Negative Carotid Bruits Lungs: Clear to auscultation, Normal air movement Cardiovascular: Regular rate, No murmurs Abdomen: Bowel Sounds Present, Soft, Non Tender Extremities: No edema, Capillary Refill Less than 3 Seconds Skin: No rashes, No breakdown Musculoskeletal: No Tenderness to Palpation of Joints or Extremities Neurological: Cranial nerves II-XII grossly intact Psych/Mental Status: Normal Affect, Appropriate Laboratory Results 02/27/19 22:01: POC Glucose 152 H Current Medications Acetaminophen (Tylenol) 650 mg PO Q6H PRN PRN PRN Reason: Pain Score 1-3/Temp > 100.7 F Albuterol Sulfate (Ventolin Aerosols) 2.5 mg INHALATION Q4H PRN PRN PRN Reason: Shortness of breath, wheezing Albuterol/Ipratropium (Duoneb) 3 ml INHALATION Q4H.RT [facility] Last Admin: 02/28/19 07:29 Dose: 3 ml Documented by: Allopurinol (Zyloprim) 300 mg PO DAILYCM [facility] Last Admin: 02/28/19 09:32 Dose: 300 mg Documented by: Amiodarone HCl (Cordarone) 200 mg PO TID [facility] Last Admin: 02/28/19 05:13 Dose: 200 mg Documented by: Apixaban (Eliquis) 2.5 mg PO BID [facility] Last Admin: 02/28/19 09:31 Dose: 2.5 mg Documented by: Bethanechol Chloride (Bethanechol Chloride) 50 mg PO BID [facility] Last Admin: 02/28/19 09:31 Dose: 50 mg Documented by: Calcitriol (Rocaltrol) 0.25 mcg PO QHS [facility] Last Admin: 02/27/19 21:44 Dose: 0.25 mcg Documented by: Colchicine (Colchicine) 0.6 mg PO DAILY PRN PRN PRN Reason: gout flare Diltiazem HCl (Cardizem Cd) 180 mg PO Q12 [facility] Last Admin: 02/28/19 09:31 Dose: 180 mg Documented by: Ergocalciferol (Vitamin D) 50,000 unit PO WE [facility] Last Admin: 02/22/19 22:43 Dose: 50,000 unit Documented by: Finasteride (Proscar) 5 mg PO DAILY@2200 [facility] Last Admin: 02/27/19 21:45 Dose: 5 mg Documented by: Furosemide (Lasix) 40 mg PO DAILY [facility] Last Admin: 02/28/19 09:31 Dose: 40 mg Documented by: Guaifenesin (Mucinex) 1,200 mg PO BID [facility] Last Admin: 02/28/19 09:31 Dose: 1,200 mg Documented by: Sodium Chloride () 250 mls @ 15 mls/hr IV .[id number] PRN PRN Reason: Saline Flush Sodium Chloride () 500 mls @ 0 mls/hr IV .Q0M [facility] Melatonin (Melatonin) 3 mg PO QHS PRN PRN PRN Reason: INSOMNIA Last Admin: 02/20/19 23:56 Dose: 3 mg Documented by: Metoprolol Tartrate (Lopressor (Beta Fiordaliza)) 100 mg PO BID [facility] Last Admin: 02/28/19 09:31 Dose: 100 mg Documented by: Nystatin (Mycostatin Powder) 1 applic TOPICAL BID [facility]; Protocol Last Admin: 02/28/19 09:32 Dose: 1 applicatio Documented by: Ondansetron HCl (Zofran) 4 mg IV Q8H PRN PRN PRN Reason: NAUSEA/VOMITING Oxycodone HCl (Oxyir) 5 mg PO Q4H PRN PRN PRN Reason: Pain Score 4-10/10 Sodium Chloride () 10 - 40 ml IV UD PRN PRN Reason: SALINE FLUSH Last Admin: 02/21/19 17:35 Dose: 10 ml Documented by: Throat Lozenges (Cepacol Sore Throat Lozenge) 1 lozenge MUCOUS MEM Q2H PRN PRN PRN Reason: COUGH Last Admin: 02/20/19 22:57 Dose: 1 lozenge Documented by: Medical Necessity - Tobacco Use Smoking Status: Never smoker Tobacco Use: Cigarettes, Cigars Assessment/Plan All Active Problems (Last Updated 02/18/19 @ 08:31 by Radhames Quach MD) HFrEF (heart failure with reduced ejection fraction) (Acute) NSTEMI (non-ST elevated myocardial infarction) (Ruled-out) CKD at baseline which is 1.5-1.8 mg/dL HTN R renal cyst Nephrolithiasis asymptomatic Heart failure SCr stable 1.99 with mild contraction alkalosis -this is likely related to hemodynamic instability BP remains soft. hold lisinopril Continue lasix Check renal function in am Keep MAP > 65 Avoid nephrotoxins and overdiuresis
--- NOTE | 2019-02-28 11:42 | DCINST_ITS ---
- Discharge Diagnoses Current Active Problems: Current Active and Chronic Problems (Last Updated 02/18/19 @ 08:31 by Radhames Quach MD) HFrEF (heart failure with reduced ejection fraction) (Acute) You will use the following diet at home:: No restrictions Your food should be the consistency of: Regular Your liquids should be the consistency of: Regular/Thin Discharge Activity: Return to Normal Activity Weight Bearing Status: Full weight bearing Additional Instructions: oxygen at 2 liters continously Allergies/Adverse Reactions: Allergies hydrocodone [From Vicodin] Allergy (Severe, Verified 02/17/19 19:35) Rash aspirin Allergy (Intermediate, Verified 02/17/19 17:22) Swelling around eyes pseudoephedrine [From Sudafed] Adverse Reaction (Severe, Verified 02/17/19 17:22) Myalgias & flu like symptoms simvastatin [From Zocor] Adverse Reaction (Severe, Verified 02/17/19 17:22) Myalgias Sulfa (Sulfonamide Antibiotics) Adverse Reaction (Mild, Verified 02/17/19 17:22) Severe Pain in joints Medications to take at Discharge Finasteride [Proscar] 5 mg PO QHS 04/18/15 Bethanechol Chloride [Urecholine] 50 mg PO BID 12/08/16 colchicine 0.6 mg tablet 0.6 mg PO QODAY tab 01/13/18 apixaban 2.5 mg tablet 2.5 mg PO BID #180 tab 01/31/19 Allopurinol 300 mg PO DAILY 02/17/19 Calcitriol 0.25 mcg PO QHS 02/17/19 Calcitriol 0.5 mcg PO DAILY 02/17/19 Doxazosin Mesylate [Cardura Xl] 4 mg PO QHS 02/17/19 Ergocalciferol [Vitamin D] 50,000 unit PO WE 02/17/19 Lisinopril [Zestril] 2.5 mg PO DAILY #30 tab 02/23/19 Metoprolol Tartrate [Lopressor (beta evelin)] 100 mg PO BID #60 tab 02/23/19 Nystatin Powder [Mycostatin Powder] 1 applic TOPICAL BID #1 bottle 02/23/19 Potassium Chloride [K-Dur] 20 meq PO BIDCM #60 tab 02/23/19 Amiodarone HCl [Cordarone] 200 mg PO TID #60 tab 02/28/19 Diltiazem CD [Cardizem CD] 180 mg PO BID #60 cap 02/28/19 Furosemide [Lasix] 40 mg PO DAILY #30 tab 02/28/19 The following prescriptions were given: Diltiazem CD [Cardizem CD] 180 mg PO BID #60 cap Transmission Status: Pending to [facility] Amiodarone HCl [Cordarone] 200 mg PO TID #60 tab Transmission Status: Pending to [facility] Potassium Chloride [K-Dur] 20 meq PO BIDCM #60 tab Transmission Status: Received by [facility] [place] [address] Furosemide [Lasix] 40 mg PO DAILY #30 tab Transmission Status: Pending to [facility] Metoprolol Tartrate [Lopressor (beta evelin)] 100 mg PO BID #60 tab [facility]: [facility] [place] [address] Nystatin Powder [Mycostatin Powder] 1 applic TOPICAL BID #1 bottle Transmission Status: [facility] [address] Lisinopril [Zestril] 2.5 mg PO DAILY #30 tab Transmission Status: Received by [address] Primary Care Physician: Vicki Trejo DO [Primary Care Provider] - Please follow up with your Primary Care Physician in: in 1-2 weeks Test Results: Test results from this visit will be discussed in further detail at your follow- up appointment, if applicable. Please Follow Up With: Vicki Trejo DO Please Follow Up With: Jimi Greenfield MD When: in 2-3 weeks Please Follow Up With: Gonsalo Schneider MD When: in 2 weeks for follow up Kidney function
--- NOTE | 2019-02-28 14:10 | CASEMGMT ---
Call to [facility] as pt still has not received portable oxygen tank and per Sreekanth in customer service, their bottom hoop driver texted them about 40 minutes ago and stated he was on his way at that time. This RN CM to room and pt/sister are upset at this time in delay of tank delivery as it has been about 4.5hrs since this RN CM notified [facility] of home oxygen need. This RN CM provided apologies at this time and answered all questions for pt/sister at this time. Pt then requested to have contact info for the local DME companies as he is frustrated with the delay and customer service at [facility]. This was provided to sister at this time. Pt/sister are now understanding at this time and voice no further questions/concerns/needs at this time. Barbie KING CM
--- NOTE | 2019-03-01 15:29 | PCM.DC.SUM ---
Discharge Date and Diagnosis Date of Admission: 02/17/19 Date of Discharge: 02/28/19 - Primary Discharge Diagnosis #1 acute on chronic congestive heart failure with reduced ejection fraction #2 Atrial fibrillation-converted to normal sinus rhythm after cardioversion #3 coronary artery disease #4 chronic hypoxic respiratory failure #5 chronic obstructive pulmonary disease #6 essential hypertension #7 chronic kidney disease stage III #8 elevated troponin not secondary to non-STEMI #9 hoarding disorder #10 ischemic cardiomyopathy - Secondary Discharge Diagnosis Chronic Problems (Last Updated 02/18/19 @ 08:31 by Radhames Quach MD) Atherosclerosis of [place] coronary artery of [place] heart without angina pectoris (Chronic) CABG X 3: VILLEDA-LAD, SVG-LCx, SVG-RPDA 10/10/2003 H/O coronary artery bypass surgery (Chronic 10/10/03) CABG X 3: VILLEDA-LAD, SVG-LCx, SVG-RPDA 10/10/2003 Old inferior wall myocardial infarction (Chronic) Ischemic cardiomyopathy (Chronic) Longstanding persistent atrial fibrillation (Chronic) Acute on chronic systolic (congestive) heart failure (Chronic) CVA (cerebral vascular accident) (Chronic) lower left cerebellar hemisphere Essential (primary) hypertension (Chronic) Hyperlipidemia (Chronic) Hospital Course and Treatment Operations: None Procedures: 2-D Echocardiogram, Cardioversion Summary of Care Provided: The patient is a 78 year old M was seen in the emergency room at [facility] with a chief complaint of shortness of breath. He had been using oxygen during the day-patient only had a prescription for oxygen use at night however. Work-up in the emergency room included an EKG which showed atrial fib at a rate of 110, PVCs were also noted. CBC was unremarkable, BUN was elevated at 52 and creatinine was 1.91. Troponin was elevated at 0.377, beta natruretic peptide was 1093. Chest x-ray showed evidence of CHF. Patient was admitted to PCU, he was seen in consultation by cardiology who did not feel that he had a heart attack, patient was seen in consultation by nephrology, patient's cardiac enzymes remained elevated in the intermediate range. Patient was put on rate limiting medications, he was treated for systolic congestive heart failure, echocardiogram was obtained which showed a reduced ejection fraction of 35%. Patient remained on supplemental oxygen which was not able to be weaned off entirely. On 02/27/2019, patient underwent a cardioversion which was successful and converted his rhythm into normal sinus rhythm. Patient was seen by PT and OT and at the time of discharge on 02/28/2019, he required home oxygen on a continuous basis, he was set up for portable tanks and was instructed to use them and expected to use them on ambulation. On 02/28/2019, patient was seen and examined: On examination he appeared in good health and spirits. Vital signs as documented. Skin warm and dry and without overt rashes. Neck without JVD. Lungs-breath sounds are distant bilaterally. Heart exam notable for regular rhythm, normal sounds and absence of murmurs, rubs or gallops. Abdomen unremarkable and without evidence of organomegaly, masses, or abdominal aortic enlargement. Extremities nonedematous. Neuro: Cranial nerves II through XII are grossly intact, no focal motor deficits were noted, sensation to light touch and pinprick intact. Psych: Patient is alert and oriented x3, he does not appear anxious or depressed On 02/28/2019, patient was seen and examined and was discharged in stable condition to home. - Physical Exam Vitals/I&O's: Vital Signs Temp Pulse Resp BP Pulse Ox 98.2 F 56 L 18 115/48 L 96 02/28/19 14:25 02/28/19 14:25 02/28/19 14:25 02/28/19 14:25 02/28/19 14:25 Oxygen Flow Rate (L/min) [ 0 AMBULATING on Room Air] Oxygen Flow Rate (L/min) [At 0 REST on Room Air] Oxygen Flow Rate (L/min) 2 Oxygen Delivery Method Nasal Cannula Weight: 96.5 kg Body Mass Index (BMI) 37.5 Finger Stick Blood Glucose 143 Intake and Output for Last 24 Hours 02/27/19 02/28/19 03/01/19 23:59 23:59 23:59 Intake Total 1270 / 1270 50 / 50 Output Total 1560 / 1560 100 / 100 Balance -290 / -290 -50 / -50 Discharge Activity: Return to Normal Activity Weight Bearing Status: Full weight bearing Home Medications: Medications to take at Discharge Finasteride [Proscar] 5 mg PO QHS 04/18/15 Bethanechol Chloride [Urecholine] 50 mg PO BID 12/08/16 colchicine 0.6 mg tablet 0.6 mg PO QODAY tab 01/13/18 apixaban 2.5 mg tablet 2.5 mg PO BID #180 tab 01/31/19 Allopurinol 300 mg PO DAILY 02/17/19 Calcitriol 0.25 mcg PO QHS 02/17/19 Calcitriol 0.5 mcg PO DAILY 02/17/19 Doxazosin Mesylate [Cardura Xl] 4 mg PO QHS 02/17/19 Ergocalciferol [Vitamin D] 50,000 unit PO WE 02/17/19 Lisinopril [Zestril] 2.5 mg PO DAILY #30 tab 02/23/19 Metoprolol Tartrate [Lopressor (beta evelin)] 100 mg PO BID #60 tab 02/23/19 Nystatin Powder [Mycostatin Powder] 1 applic TOPICAL BID #1 bottle 02/23/19 Potassium Chloride [K-Dur] 20 meq PO BIDCM #60 tab 02/23/19 Amiodarone HCl [Cordarone] 200 mg PO TID #60 tab 02/28/19 Diltiazem CD [Cardizem CD] 180 mg PO BID #60 cap 02/28/19 Furosemide [Lasix] 40 mg PO DAILY #30 tab 02/28/19 Following Prescrptions Were Given to Patient: Diltiazem CD [Cardizem CD] 180 mg PO BID #60 cap Transmission Status: Received by [facility] Amiodarone HCl [Cordarone] 200 mg PO TID #60 tab Transmission Status: Received by [facility] Potassium Chloride [K-Dur] 20 meq PO BIDCM #60 tab Transmission Status: Received by [facility] Furosemide [Lasix] 40 mg PO DAILY #30 tab Transmission Status: Received by [facility] Metoprolol Tartrate [Lopressor (beta evelin)] 100 mg PO BID #60 tab Transmission Status: Received by [facility] Nystatin Powder [Mycostatin Powder] 1 applic TOPICAL BID #1 bottle Transmission Status: Received by [facility] Lisinopril [Zestril] 2.5 mg PO DAILY #30 tab Transmission Status: Received by [facility] Primary Care Physician: Vicki Trejo DO [Primary Care Provider] - Please follow up with your Primary Care Physician in: in 1-2 weeks Please Follow Up With: Vicki Trejo DO Please Follow Up With: Jimi Greenfield MD When: in 2-3 weeks Please Follow Up With: Gonsalo Schneider MD When: in 2 weeks for follow up Kidney function Disposition: Home with Home Health Minutes spent on discharge:: 35 Patient Condition:: Stable Medical Necessity - Tobacco Use Smoking Status: Never smoker Tobacco Use: Cigarettes, Cigars Meaningful Use Info Meaningful Use Diagnoses (Choose all that apply): CHF - CHF DALE/ARB ordered at discharge?: Yes Documented LVEF (%): 35 Code Visit Inpatient E&M: 78882 Disch Hosp
--- NOTE | 2019-03-01 15:59 | CASEMGMT ---
CHRISTINE CM Discharge Follow-Up Phone Call. Lace: 13 Strata: 4 Discharge Date: 02/28/19 Adm Dx: CHF Exac. Attempted discharge follow-up phone call. No answer and no VM msg came on/not able to leave a message. Lawrence LON CHRISTINE CM
== END 2019-02-28 14:30 | disposition home or self-care (01) | DRG 291 ==
LOC: ED 18:10 → PCU 19:32
PROVIDERS: Family Medicine; Hospitalist; Internal Medicine; Internal Medicine Cardiovascular Disease; Emergency Provider Emergency Medicine; Family Provider Internal Medicine; PCP Internal Medicine; Visit Provider Internal Medicine
DX: I13.0 Hypertensive heart and chronic kidney disease with heart failure and stage 1 through stage 4 chronic kidney disease, or unspecified chronic kidney disease (principal); I50.23 Acute on chronic systolic (congestive) heart failure; N18.4 Chronic kidney disease, stage 4 (severe); J96.11 Chronic respiratory failure with hypoxia; I48.19 Other persistent atrial fibrillation; E11.22 Type 2 diabetes mellitus with diabetic chronic kidney disease; J44.9 Chronic obstructive pulmonary disease, unspecified; I48.0 Paroxysmal atrial fibrillation; I25.10 Atherosclerotic heart disease of native coronary artery without angina pectoris; N40.1 Benign prostatic hyperplasia with lower urinary tract symptoms; N39.498 Other specified urinary incontinence; I25.5 Ischemic cardiomyopathy; G47.33 Obstructive sleep apnea (adult) (pediatric); E87.6 Hypokalemia; N28.1 Cyst of kidney, acquired; I25.2 Old myocardial infarction; E66.01 Morbid (severe) obesity due to excess calories; Z82.41 Family history of sudden cardiac death; Z82.49 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 of ischemic heart disease and other diseases of the circulatory system; Z79.4 Long term (current) use of insulin; Z86.73 Personal history of transient ischemic attack (TIA), and cerebral infarction without residual deficits; Z79.899 Other long term (current) drug therapy; Z95.1 Presence of aortocoronary bypass graft; Z79.01 Long term (current) use of anticoagulants; Z99.81 Dependence on supplemental oxygen; Z11.9 Encounter for screening for infectious and parasitic diseases, unspecified; I50.82 Biventricular heart failure; F42.3 Hoarding disorder; Z68.37 Body mass index [BMI] 37.0-37.9, adult; B35.9 Dermatophytosis, unspecified; E78.2 Mixed hyperlipidemia; F17.210 Nicotine dependence, cigarettes, uncomplicated
CPT/HCPCS: 36415; 71045; 71046; 76705; 76770; 80048; 80076; 81001; 82962; 83036; 83735; 83880; 84484; 85025; 85610; 85730; 87070; 87205; 87633; 92507; 92610; 92960; 93005; 93306; 94640; 94667; 94668; 94762; 97110; 97116; 97161; 97165; 97530; 97535; 97802; 97803; 99251; 99285; J7040; Q9957; A4216; C8929; G0463; J1940

== ENCOUNTER → 2019-05-16 16:03 | Outpatient (CLI) | payer MEDICARE, OTHER, SELFPAY ==
[2019-04-14 14:53] VITALS: BMI 35.3
[2019-05-16 16:13] LABS: Bacteria 0 SEEN /hpf (None Seen); Red Blood Cells-Urine 0 SEEN /hpf (0-5)
[2019-05-16 18:08] LABS: Absolute Lymphocyte Count 1.29 X10^3/uL (0.83-4.51); Absolute Neutrophil Count 4.1 X10^3/uL (2.0-7.7); Basophil# 0.04 X10^3/uL; Basophil% 0.6 % (0-1); Eosinophil# 0.27 X10^3/uL; Eosinophils% 4.2 % (0-5); Hematocrit 40.9 % (40-54); Hemoglobin 13.1 g/dL (13.0-16.5); Lymphocyte # 1.29 X10^3/ul (4.0); Lymphocyte % 19.9 % (19-41); Mean Corpuscular Volume 96.7 fL (80-94); Mean Platelet Vol. 10.9 fl (6.2-12.0); Monocyte% 10.8 % (0-10); NRBC Flagged by Analyzer 0 % (0-5); Neutrophil # 4.12 X10^3/uL (2.7-7.7); Neutrophil % 63.7 % (47-70); Platelet Count 180 K/mm3 (150-450); RBC Distribution Width CV 15.8 % (11.6-14.6); RBC Distribution Width SD 55.9 fl (35.1-43.9); Red Blood Count 4.23 M/mm3 (4.6-6.2); White Blood Count 6.5 K/mm3 (4.4-11.0)
[2019-05-16 18:31] LABS: Color, Urine Yellow (Yellow); Glucose, Dipstick Normal (Normal); Ketone-Dipstick Negative (Negative); Leukocyte Esterase-Dipstick Negative /ul (Negative); Nitrite-Dipstick Negative (Negative); Occult Blood-Urine Negative /ul (Negative); Protein-Dipstick Negative (Negative); Specific Gravity, Urine 1.015 (1.002-1.030); Urine Bilirubin Dipstick Negative (Negative); Urine Clarity Clear (Clear); Urine Urobilinogen 1 mg/dl (Normal)
[2019-05-16 18:39] LABS: Albumin, Serum 3.6 g/dL (3.2-5.0); BUN 32 mg/dL (7-18); BUN/Creat Ratio 16.2 RATIO (10-20); Chloride 105 mmol/L (98-107); Creatinine, Serum 1.98 mg/dL (0.70-1.30); EST Glomerular Filtration Rate 35 mL/min (>60); Est Glom Filt Rate - Afr Amer 42 mL/min (>60); Glucose 105 mg/dL (74-106); Phosphorus 3.7 mg/dL (2.5-4.9); Potassium 3.8 mmol/L (3.5-5.1); Sodium Level 143 mmol/L (136-145)
[2019-05-16 18:43] LABS: Vitamin D,25 Hydroxy 75.1 ng/mL (29.95-100.01)
[2019-05-16 18:46] LABS: Protein, Urine (Random) 9.6 mg/dL (<11.9); Protein:Creat Ratio 81 mg/g CRE (0-200)
[2019-05-16 18:57] LABS: Hyaline Cast 0-5 SEEN /lpf (0-5); Mucous, Urine RARE /hpf (<or=2+); Squamous Epithelial Cells - UA 0-5 SEEN /hpf (0-5)
[2019-05-16 18:59] LABS: White Blood Cells 0-5 SEEN /hpf (0-5)
[2019-05-17 08:55] LABS: PTHIN 80.2 pg/mL (18.4-80.1)
== END ==
PROVIDERS: PCP Internal Medicine
DX: N18.3 Chronic kidney disease, stage 3 (moderate) (principal)
CPT/HCPCS: 36415; 80069; 81001; 82306; 82570; 83970; 84156; 85025

== ENCOUNTER → 2019-05-19 10:56 | Outpatient (CLI) | payer MEDICARE, OTHER, SELFPAY ==
[2019-04-14 14:53] VITALS: BMI 35.3
--- NOTE | 2019-05-19 10:58 | ECHOCS_ITS ---
Reason For Study: Eval EF S/P [facility] Procedure This was a 2D Doppler, Color Flow transthoracic echocardiogram. The study was technically difficult. Due to body habitus. Exam performed in department. Left Ventricle Normal LV size. Left ventricular systolic function is normal. The estimated ejection fraction is 65 %. Stage 2 diastolic dysfunction. No regional wall motion abnormalities noted. Right Ventricle Normal RV size. Normal systolic function. Atria The left atrium is mildly enlarged. Normal right atrium. Mitral Valve Mitral valve not well visualized. Tricuspid Valve Normal tricuspid valve. Aortic Valve Trisinus/trileaflet aortic valve. Pulmonic Valve The pulmonic valve is not well visualized. Great Vessels Normal aortic root. The pulmonary artery is normal size. Normal inferior vena cava. Pericardium/Pleural No pericardial effusion. Medication 22 gauge I.V. with prn adaptor inserted into right arm. Diluted definity 4.0ml given slow IV push to enhance endocardial definition. MMode/2D Measurements & Calculations LVIDd: 5.7 cm IVSd: 1.1 cm Ao root diam: 2.9 cm LVIDs: 4.1 cm LVPWd: 1.1 cm FS: 28.5 % LAV(MOD-bp): 96.5 ml LA A4 area: 26.6 cm2 LA dimension(2D): 5.7 cm LAV(MOD-bp) Indexed: 45.1 ml/m2 LAV(MOD-sp2): 99.6 ml LAV(MOD-sp4): 92.5 ml RA A4 area: 21.0 cm2 Time Measurements MV dec time: 0.20 sec Doppler Measurements & Calculations MV E max jeff: 131.8 cm/sec Lat Peak E' Jeff: 8.0 cm/sec Med Peak E' Jeff: 3.7 cm/sec MV A max jeff: 79.0 cm/sec E/E' lat: 16.5 E/E' med: 35.8 MV E/A: 1.7 Ao V2 max: 169.0 cm/sec LV V1 max: 103.9 cm/sec PA V2 max: 120.2 cm/sec Ao max P.4 mmHg LV V1 max P.3 mmHg Ao V2 mean: 129.3 cm/sec Ao mean P.2 mmHg Ao V2 VTI: 43.4 cm Interpretation Summary Normal LV size. Left ventricular systolic function is normal. The estimated ejection fraction is 65 %. Stage 2 diastolic dysfunction. Compared to previous study, the left ventricular systolic function has improved.. Ordering Physician: Durga Sanders Referring Physician: Vicki Trejo Performed By: Anais Dyer, KRISTY, RVT
== END ==
LOC: CVS 10:58
PROVIDERS: PCP Internal Medicine; Referring Provider Nurse Practitioner Family; Visit Provider Nurse Practitioner Family
DX: I50.20 Unspecified systolic (congestive) heart failure (principal); I48.0 Paroxysmal atrial fibrillation; I25.5 Ischemic cardiomyopathy; I25.10 Atherosclerotic heart disease of native coronary artery without angina pectoris; Z95.1 Presence of aortocoronary bypass graft
CPT/HCPCS: 93306; Q9957; A4216; C8929

== ENCOUNTER → 2019-06-12 16:23 | Outpatient (CLI) | payer MEDICARE, OTHER, SELFPAY ==
[2019-04-14 14:53] VITALS: BMI 35.3
[2019-06-12 18:00] LABS: Absolute Lymphocyte Count 1.25 X10^3/uL (0.83-4.51); Absolute Neutrophil Count 5.2 X10^3/uL (2.0-7.7); Basophil# 0.03 X10^3/uL; Basophil% 0.4 % (0-1); Eosinophil# 0.26 X10^3/uL; Eosinophils% 3.4 % (0-5); Hematocrit 39.7 % (40-54); Hemoglobin 12.8 g/dL (13.0-16.5); Lymphocyte # 1.25 X10^3/ul (4.0); Lymphocyte % 16.3 % (19-41); Mean Corp Hgb Conc 32.2 g/dL (32-36); Mean Corpuscular Hgb 31.8 pg (27.0-32.0); Mean Corpuscular Volume 98.5 fL (80-94); Mean Platelet Vol. 11.1 fl (6.2-12.0); Monocyte# 0.93 X10^3/uL; Monocyte% 12.1 % (0-10); NRBC Flagged by Analyzer 0 % (0-5); Neutrophil # 5.17 X10^3/uL (2.7-7.7); Neutrophil % 67.1 % (47-70); Platelet Count 172 K/mm3 (150-450); RBC Distribution Width CV 14.5 % (11.6-14.6); RBC Distribution Width SD 52.9 fl (35.1-43.9); Red Blood Count 4.03 M/mm3 (4.6-6.2); White Blood Count 7.7 K/mm3 (4.4-11.0)
[2019-06-12 18:14] LABS: ALB/GLOB Ratio 0.9 RATIO (0.9-2.4); AST(SGOT) 21 U/L (15-37); Alanine Aminotransfer ALT/SGPT 23 U/L (16-61); Albumin, Serum 3.5 g/dL (3.2-5.0); Alkaline Phosphatase 88 U/L (45-117); Anion Gap 6 (5-15); BUN 34 mg/dL (7-18); BUN/Creat Ratio 13.9 RATIO (10-20); Chloride 105 mmol/L (98-107); Creatinine, Serum 2.45 mg/dL (0.70-1.30); EST Glomerular Filtration Rate 27 mL/min (>60); Est Glom Filt Rate - Afr Amer 33 mL/min (>60); Globulin 3.7 g/dL (2.2-4.2); Glucose 85 mg/dL (74-106); Potassium 4.2 mmol/L (3.5-5.1); Protein, Total 7.2 g/dL (6.4-8.2); Sodium Level 144 mmol/L (136-145); Uric Acid 6.2 mg/dL (3.5-7.2)
== END ==
PROVIDERS: PCP Internal Medicine; Referring Provider Internal Medicine Rheumatology; Visit Provider Internal Medicine Rheumatology
DX: M06.4 Inflammatory polyarthropathy (principal); M1A.9XX1 Chronic gout, unspecified, with tophus (tophi); N18.9 Chronic kidney disease, unspecified; I25.10 Atherosclerotic heart disease of native coronary artery without angina pectoris; Z95.1 Presence of aortocoronary bypass graft; I50.20 Unspecified systolic (congestive) heart failure
CPT/HCPCS: 36415; 80053; 84550; 85025

== ENCOUNTER 2019-08-26 23:53 | Observation (INO) | payer MEDICARE, OTHER, SELFPAY ==
[2019-08-02 11:26] VITALS: BMI 37.5
[2019-08-26 23:54] VITALS: BP 127/79; PULSE 134; RESP 19; TEMP 36.3; O2SAT 96; BMI 38.1
--- NOTE | 2019-08-26 23:57 | EKG12_ITS ---
Test Reason : PALPITATIONS Blood Pressure : / mmHG Vent. Rate : 109 BPM Atrial Rate : 074 BPM P-R Int : 000 ms QRS Dur : 114 ms QT Int : 360 ms P-R-T Axes : 000 -11 262 degrees QTc Int : 484 ms Atrial fibrillation with premature ventricular or aberrantly conducted complexes Inferior infarct , age undetermined Abnormal ECG Confirmed by LIBERTAD PHAN, RENITA ([id number]), art editor ELI LAMAS ([id number]) on 08/29/2019 3:17:09 PM Referred By: SHANI Confirmed By:RENITA MAURER MD
--- NOTE | 2019-08-26 23:57 | RAD_ITS ---
STUDY: X-RAY CHEST REASON FOR EXAM: Male, 78 years old. CHEST PAIN TECHNIQUE: Single AP portable view of the chest. COMPARISON: 02/22/2019 FINDINGS: The lungs are clear and expanded. There is no demonstrated pleural abnormality. Sternal cerclage wires and vascular clips are present from a prior sternotomy and coronary artery bypass graft procedure (CABG). There is moderate cardiac enlargement. Normal mediastinum and kath. There is prominence of the pulmonary hilar arteries and peripheral pulmonary arteries, consistent with congestive heart failure (CHF). Normal visualized aortic arch and descending thoracic aorta. Normal visualized thoracic spine. There is degenerative osteoarthritis of the bilateral shoulders. There is no demonstrated abnormality of the visualized soft tissue structures of the upper abdomen. RAD/Chest 1 View (Portable) IMPRESSION: There is moderate cardiac enlargement. There is prominence of the pulmonary hilar arteries and peripheral pulmonary arteries, consistent with congestive heart failure (CHF). Electronically Signed: Roxana Zee, at 1:15 EDT Tel , Service support ,
[2019-08-27] VITALS (12 sets, daily range): BP systolic 108–143; BP diastolic 61–89; PULSE 64–97; RESP 13–18; TEMP 36.3–36.6; O2SAT 95–98; BMI 37.7
--- NOTE | 2019-08-27 00:12 | ED.VISSUMM ---
- ER Visit Summary Date of Service: 08/27/19 Chief Complaint: Palpitations with a history of prior A. fib History of Present Illness: The patient is a 78 M stents of past medical history of CAD, CO, and CHF. History of A. fib on Eliquis with a prior triple bypass. He also has renal insufficiency. Patient states that he has had palpitations for last 2 to 3 days consistent with his prior A. fib. Denies any chest pain. Denies any worsening shortness of breath. Denies any fever. Denies any nausea, vomiting or diarrhea. Patient states that accelerated heart rate seem to be getting worse and more sustained over the last 24 hours. Physical Examination: Older male vital signs are stable. Except he is in A. fib his heart rates going between 101 135. Pulse ox is 96%. Not hypoxic. H EENT exam unremarkable. Neck nontender. No JVD. Lungs clear to auscultation bilaterally. Heart tachycardic 1 10-1 30 consistent with A. fib on the monitor with PVCs. Prior sternotomy. Chest wall nontender. Abdomen soft nontender. Normal bowel sounds no peritoneal signs. Patient is moving all 4 extremities. His calves are nontender without edema no cords. Dorsi plantarflexion intact. 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 Neurologically is awake and alert with no focal motor deficits. 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 Test Results: EKG shows atrial fibrillation with rapid ventricular rate of 109 with PVCs. No acute signs of CO. Portable chest x-ray 1 view read by myself shows cardiomegaly. No significant signs of failure nor effusions. CBC shows white count of 6. Hemoglobin at 12 which is his baseline. Chemistries unremarkable except BUN of 42 creatinine 2.87 he has known renal insufficiency with 1 of his most recent creatinines of 2.45. Troponin is normal. Emergency Department Course and Treatment: Patient with recurrent A. fib with rapid ventricular rate. Being treated with IV Cardizem. He is already on the anticoagulant Eliquis. Treatment Plan: Ultimately repeat exams patient has responded well to 1 dose of IV Cardizem. He and I discussed treatment options such as admission versus discharge to home and outpatient follow-up. He has been symptomatic at home and has had frequent A. fib RVR over the last several days. 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 And patient is okay with admission. Disposition: Observation admission Impression: Recurrent A. fib RVR with a history of the same History of CAD, CO, CHF with a low ejection fraction Status post prior triple bypass. Anticoagulated on Eliquis History of renal insufficiency This note was generated with [employer] dictation software. It may contain incorrect words, spelling, and punctuation that were not noted in review of the chart prior to signing ED Disposition - Plan for ED Patient: Disposition: Acute Care Hospital [facility]
[2019-08-27 00:23] LABS: Absolute Lymphocyte Count 1.13 X10^3/uL (0.83-4.51); Absolute Neutrophil Count 4.8 X10^3/uL (2.0-7.7); Basophil# 0.06 X10^3/uL; Basophil% 0.9 % (0-1); Eosinophil# 0.22 X10^3/uL; Eosinophils% 3.2 % (0-5); Hematocrit 38.8 % (40-54); Hemoglobin 12.3 g/dL (13.0-16.5); Lymphocyte # 1.13 X10^3/ul (4.0); Lymphocyte % 16.3 % (19-41); Mean Corp Hgb Conc 31.7 g/dL (32-36); Mean Corpuscular Hgb 31.7 pg (27.0-32.0); Mean Platelet Vol. 10.9 fl (6.2-12.0); Monocyte# 0.61 X10^3/uL; Monocyte% 8.8 % (0-10); NRBC Flagged by Analyzer 0 % (0-5); Neutrophil # 4.82 X10^3/uL (2.7-7.7); Neutrophil % 69.5 % (47-70); Platelet Count 197 K/mm3 (150-450); RBC Distribution Width CV 14.2 % (11.6-14.6); RBC Distribution Width SD 51.5 fl (35.1-43.9); Red Blood Count 3.88 M/mm3 (4.6-6.2); White Blood Count 6.9 K/mm3 (4.4-11.0)
[2019-08-27] MEDS: dilTIAZem 25 MG/5 ML Vial IV BOLUS (00:32)
[2019-08-27 00:50] LABS: Anion Gap 7 (5-15); BUN 42 mg/dL (7-18); BUN/Creat Ratio 14.6 RATIO (10-20); Calcium,Total 9.2 mg/dL (8.5-10.1); Chloride 107 mmol/L (98-107); Creatinine, Serum 2.87 mg/dL (0.70-1.30); EST Glomerular Filtration Rate 23 mL/min (>60); Est Glom Filt Rate - Afr Amer 28 mL/min (>60); Estimated Creatinine Clearance 19.45 ml/min; Glucose 150 mg/dL (74-106); Potassium 3.9 mmol/L (3.5-5.1); Sodium Level 143 mmol/L (136-145)
--- NOTE | 2019-08-27 01:42 | PCM.HP.STD ---
Problem List (1) Paroxysmal atrial fibrillation Status: Acute Comment: [facility] on 02/27/2019; (2) NSTEMI (non-ST elevated myocardial infarction) Status: Chronic (3) Atherosclerosis of [place] coronary artery [place] heart without angina pectoris Status: Chronic Comment: CABG X 3: VILLEDA-LAD, SVG-LCx, SVG-RPDA 10/10/2003 (4) H/O coronary artery bypass surgery Status: Chronic Comment: CABG X 3: VILLEDA-LAD, SVG-LCx, SVG-RPDA 10/10/2003 (5) Old inferior wall myocardial infarction Status: Chronic (6) Ischemic cardiomyopathy Status: Chronic (7) Longstanding persistent atrial fibrillation Status: Chronic (8) Acute on chronic systolic (congestive) heart failure Status: Chronic (9) CVA (cerebral vascular accident) Status: Chronic Comment: lower left cerebellar hemisphere (10) Essential (primary) hypertension Status: Chronic (11) Hyperlipidemia Status: Chronic Qualifiers: Hyperlipidemia type: mixed hyperlipidemia Qualified Code(s): E78.2 - Mixed hyperlipidemia History of Present Illness Date of Admission: 08/27/19 Chief Complaint: irregular pulse The patient is a 78 year old M with a significant history of heart failure with reduced ejection fraction; CAD status post CABG; TIA status post bilateral carotid stents; gout and atrial fibrillation status post cardioversion who presents to the emergency department with fluctuating pulse. On the night of presentation his heart rate was fluctuating between 70s to 130s but predominantly more than 100s. Also he reported that 2 days before presentation he had a cataract surgery and at the surgery his was in A. fib with rates in the 80s. Patient reported that in the past his heart rate has been as low as 40s. He denies palpitations. He reports a mild shortness of breath with exertion. He reports fatigue. His A. fib medication has constantly been adjusted. Patient follows up with Dr. Greenfield, cardiology. On this presentation his heart rate was between 109-135 and he was in A. fib. He was given 25 mg IV Cardizem bolus which controlled his heart rate. Past Medical History Past Medical History (Chronic Problems): Chronic Problems (Last Reviewed 08/27/19 @ 03:[address] Blair Ochoa MD) NSTEMI (non-ST elevated myocardial infarction) (Chronic) Atherosclerosis [place] coronary artery of [place] heart without angina pectoris (Chronic) CABG X 3: VILLEDA-LAD, SVG-LCx, SVG-RPDA 10/10/2003 H/O coronary artery bypass surgery (Chronic 10/10/03) CABG X 3: VILLEDA-LAD, SVG-LCx, SVG-RPDA 10/10/2003 Old inferior wall myocardial infarction (Chronic) Ischemic cardiomyopathy (Chronic) Longstanding persistent atrial fibrillation (Chronic) Acute on chronic systolic (congestive) heart failure (Chronic) CVA (cerebral vascular accident) (Chronic) lower left cerebellar hemisphere Essential (primary) hypertension (Chronic) Hyperlipidemia (Chronic) Medical History: Medical History (Last Reviewed 08/27/19 @ 05:[address] Blair Ochoa MD) Atherosclerosis [place] coronary artery [place] heart without angina pectoris (Chronic) I25.10 CABG X 3: VILLEDA-LAD, SVG-LCx, SVG-RPDA 10/10/2003 Old inferior wall myocardial infarction (Chronic) I25.2 Ischemic cardiomyopathy (Chronic) I25.5 Longstanding persistent atrial fibrillation (Chronic) I48.11 CVA (cerebral vascular accident) (Chronic) I63.9 lower left cerebellar hemisphere Essential (primary) hypertension (Chronic) I10 Hyperlipidemia (Chronic) E78.5 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, N13.8 Chronic renal failure, stage 3 (moderate) N18.3 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, E66.9 FH: sudden cardiac (SCD) Z82.41 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 of premature coronary heart disease Z82.49 Female < 65 & Male < 55 History of stroke Z86.73 AUDRA (obstructive sleep apnea) G47.33 Obesity E66.9 Venous insufficiency Noncompliance (Inactive) Z91.19 Allergies hydrocodone [From Vicodin] Allergy (Severe, Verified 08/26/19 23:56) Rash aspirin Allergy (Intermediate, Verified 08/26/19 23:56) Swelling around eyes pseudoephedrine [From Sudafed] Adverse Reaction (Severe, Verified 08/26/19 23:56) Myalgias & flu like symptoms simvastatin [From Zocor] Adverse Reaction (Severe, Verified 08/26/19 23:56) Myalgias Sulfa (Sulfonamide Antibiotics) Adverse Reaction (Mild, Verified 08/26/19 23:56) Severe Pain in joints Home Medications: Ambulatory Orders Medication Instructions Recorded Finasteride [Proscar] 5 mg PO QHS 04/18/15 Bethanechol Chloride [Urecholine] 50 mg PO BID 12/08/16 colchicine 0.6 mg tablet 0.6 mg PO QODAY tab 01/13/18 apixaban 2.5 mg tablet 2.5 mg PO BID #180 tab 01/31/19 Allopurinol 300 mg PO DAILY 02/17/19 Calcitriol 0.25 mcg PO DAILY 02/17/19 Doxazosin Mesylate [Cardura Xl] 4 mg PO QHS 02/17/19 Ergocalciferol [Vitamin D] 50,000 unit PO WE 02/17/19 Furosemide [Lasix] 40 mg PO DAILY #30 tab 02/28/19 amiodarone 200 mg tablet 200 mg PO DAILY #90 tab 04/10/19 lisinopril 2.5 mg tablet 2.5 mg PO DAILY #90 tab 04/10/19 metoprolol tartrate 25 mg tablet 25 mg PO BID #180 tab 08/02/19 Potassium Chloride [K-Dur] 20 meq PO DAILY 08/27/19 Surgical History: Surgical History (Last Reviewed 08/27/19 @ 05:[address] Blair Ochoa MD) H/O coronary artery bypass surgery (Chronic) Onset Date: 10/10/03 Z95.1 CABG X 3: VILLEDA-LAD, SVG-LCx, SVG-RPDA 10/10/2003 History of cardioversion Onset Date: 2015 Z98.890 Surgical History: coronary bypass surgery, herniorrhaphy, - - Fractures Psychiatric History: No pertinent psych hx Smoking Status: Former smoker - *Family History Maternal Family History: Family History (Last Reviewed 08/27/19 @ 05:[address] Blair Ochoa MD) Father Sudden cardiac Sister Heart disease Sudden cardiac Father Sudden cardiac History Items: No pertinent history Paternal Family History: Family History (Last Reviewed 08/27/19 @ 05:[address] Blair Ochoa MD) Father Sudden cardiac Sister Heart disease Sudden cardiac Father Sudden cardiac History Items: No pertinent history Review of Systems Constitutional: Reports: Fatigue. Denies: Chills, Fever, Weight Change HEENT: Denies: Head Aches, Sinus Congestion, Sinus Drainage Cardiovascular: Denies: Chest Pain, Palpitations Respiratory: Reports: Shortness of breath upon exertion. Denies: Cough, Shortness of breath at rest, Sputum production Gastrointestinal: Denies: Abdominal Pain, Nausea, Vomiting Genitourinary: Denies: Dysuria Musculoskeletal: Denies: Joint Pain, Joint Tenderness Skin: Denies: Rash, Wounds Neurological: Denies: Numbness, Tingling, Focal weakness Psychiatric: Denies: Anxiety, Depression, Homicidal Ideations, Suicidal Ideations Hematologic/ Lymphatic: Denies: Easy Bruising, Easy Bleeding VTE Information - Inpt Only VTE Present on Admission: No VTE Mechan Device Prophylaxis: None VTE Pharm Prophylaxis ordered?: No Reason prophylaxis not ordered:: Treatment Not Indicated - Home Eliquis for A. fib continued. - Physical Exam Vitals/I&O's: Vital Signs Temp Pulse Resp BP Pulse Ox 97.8 F 92 13 108/62 98 08/27/19 01:15 08/27/19 01:15 08/27/19 01:15 08/27/19 01:15 08/27/19 01:15 Oxygen Delivery Method Room Air Weight: 107.2 kg Body Mass Index (BMI) 38.1 Finger Stick Blood Glucose 143 General: Alert, Oriented x3, Cooperative HEENT: Atraumatic, PERRLA, EOMI, Normocephalic Neck: Supple, No Nuchal Rigidity, Trachea Midline Lungs: Clear to auscultation, Normal air movement Cardiovascular: Regular rate, Normal S1, Normal S2 Abdomen: Bowel Sounds Present, Soft, Non Tender Extremities: No edema, Capillary Refill Less than 3 Seconds, Edema - Right ankle (chronic; attributes to harvesting of saphenous vein for CABG.) Skin: No rashes, No breakdown Musculoskeletal: No Tenderness to Palpation of Joints or Extremities Neurological: Cranial nerves II-XII grossly intact Psych/Mental Status: Normal Affect, Appropriate Laboratory Results 08/27/19 00:15: WBC 6.9, RBC 3.88 L, Hgb 12.3 L, Hct 38.8 L, MCV 100.0 H, MCH 31.7, MCHC 31.7 L, RDW Std Deviation 51.5 H, RDW Coeff of [place] 14.2, Plt Count 197, MPV 10.9, Immature Gran % (Auto) 1.300 H, Neut % (Auto) 69.5, Lymph % (Auto) 16.3 L, [place] % (Auto) 8.8, Eos % (Auto) 3.2, Baso % (Auto) 0.9, Absolute Neuts (auto) 4.8, Absolute Lymphs (auto) 1.13, Nucleated RBC % 0 08/27/19 00:15: Sodium 143, Potassium 3.9, Chloride 107, Carbon Dioxide 29.0, Anion Gap 7, BUN 42 H, Creatinine 2.87 H, Estim Creat Clear Calc 19.45, Est GFR (MDRD) Af Amer 28 L, Est GFR (MDRD) Non-Af 23 L, BUN/Creatinine Ratio 14.6, Glucose 150 H, Calcium 9.2, Troponin I < 0.015 Assessment/Plan All Active Problems (Last Reviewed 08/27/19 @ 03:[address] Blair Ochoa MD) Paroxysmal atrial fibrillation (Acute) The patient is a 78 year old M with a significant history of her heart failure (preserved ejection fraction); CAD status post CABG; TIA status post bilateral carotid stents; gout and atrial fibrillation s/p cardioversion who presents at the emergency department with fluctuating pulse and found to be in A. fib with RVR. A. fib with RVR Received Cardizem bolus at emergency department which made his heart rate controlled.. Placed at the PCU on telemetry Continue home Eliquis Continue patient on home on amiodarone; apixaban; metoprolol. Echocardiogram on 05/19/2019 showed ejection fraction of 65% and stage II diastolic dysfunction. Check TSH and magnesium level. His potassium level on presentation was 3.9. Continue home potassium 20 mEq twice daily. In addition given extra dose of potassium 10 mEq x 1. Patient follows up outpatient with Dr. Greenfield, cardiology. Cardiology consult. JENNIFER Creatinine presentation was 2.87. Review of old records shows creatinine baseline of less than 2. His BUN is slightly elevated above baseline. Likely pre-renal injury. Hold home Lasix and Lisinopril Because patient reports some shortness of breath with exertion will hold off IV fluids. Avoid nephrotoxins. Trend BMP. Diabetes mellitus Hyperglycemia on presentation. Hold metformin since it is too early in his admission. Accu-Chek QA CHS with correction scale insulin. History of gout Colchicine and allopurinol continued. Urinary retention Bethanechol continued. BPH On home Cardura and finasteride. Obesity: BMI 37.7. Complicates care. Recommend lifestyle modification. History of heart failure (reduced ejection fraction): Echocardiogram on 02/18/2019 showed an ejection fraction of 30 to 35%. Recent echocardiogram on 05/19/2019 showed ejection fraction of 65% with stage II diastolic dysfunction. Chest x-ray is consistent with CHF with does not look worsened than previous. Metoprolol continued. Lisinopril and Lasix held secondary to JENNIFER. DVT prophylaxis Not indicated since patient is on Eliquis. Eliquis continued. OBSV E&M: 52822 Initial observation care L3
[2019-08-27 03:59] LABS: Magnesium 2.1 mg/dL (1.6-2.6)
[2019-08-27 05:24] LABS: Absolute Lymphocyte Count 1.11 X10^3/uL (0.83-4.51); Absolute Neutrophil Count 5.5 X10^3/uL (2.0-7.7); Basophil# 0.04 X10^3/uL; Basophil% 0.5 % (0-1); Eosinophil# 0.21 X10^3/uL; Eosinophils% 2.8 % (0-5); Hematocrit 36.9 % (40-54); Hemoglobin 11.9 g/dL (13.0-16.5); Lymphocyte # 1.11 X10^3/ul (4.0); Lymphocyte % 14.7 % (19-41); Mean Corp Hgb Conc 32.2 g/dL (32-36); Mean Corpuscular Hgb 31.7 pg (27.0-32.0); Mean Corpuscular Volume 98.4 fL (80-94); Mean Platelet Vol. 10.4 fl (6.2-12.0); Monocyte# 0.66 X10^3/uL; Monocyte% 8.7 % (0-10); NRBC Flagged by Analyzer 0 % (0-5); Neutrophil # 5.47 X10^3/uL (2.7-7.7); Neutrophil % 72.4 % (47-70); Platelet Count 186 K/mm3 (150-450); RBC Distribution Width CV 14.2 % (11.6-14.6); RBC Distribution Width SD 50.7 fl (35.1-43.9); Red Blood Count 3.75 M/mm3 (4.6-6.2); White Blood Count 7.6 K/mm3 (4.4-11.0)
[2019-08-27 05:48] LABS: Anion Gap 7 (5-15); BUN 43 mg/dL (7-18); BUN/Creat Ratio 17.1 RATIO (10-20); Calcium,Total 9.1 mg/dL (8.5-10.1); Chloride 105 mmol/L (98-107); Creatinine, Serum 2.51 mg/dL (0.70-1.30); EST Glomerular Filtration Rate 27 mL/min (>60); Est Glom Filt Rate - Afr Amer 32 mL/min (>60); Estimated Creatinine Clearance 22.24 ml/min; Glucose 132 mg/dL (74-106); Potassium 3.8 mmol/L (3.5-5.1); Sodium Level 141 mmol/L (136-145); Thyroid Stim Hormone (TSH) 5.16 uIU/mL (0.358-3.74)
[2019-08-27 06:50] LABS: Bedside Glucose 127 mg/dL (70-110)
[2019-08-27 07:21] LABS: T4 Free Direct 1.41 ng/dL (0.76-1.46)
[2019-08-27] MEDS: BETHANECHOL CHLORIDE 25 MG TABLET 50 MG PO (08:58)
[2019-08-27] MEDS: Amiodarone 200 MG Tablet PO (08:59)
[2019-08-27] MEDS: APIXABAN 2.5 MG TABLET PO (09:00)
[2019-08-27] MEDS: Nystatin Powder 15gm Bottle 1 APPLIC TOPICAL (09:00)
[2019-08-27] MEDS: Metoprolol Tartrate 25 MG Tablet PO (09:00)
--- NOTE | 2019-08-27 09:00 | CON.PCM_ITS ---
Reason for Consult Date of Consultation: 08/27/19 Reason for Consultation: Morgan rios with RVR History of Present Illness: The patient is a 78 year old M who presented to the emergency room yesterday with an irregular heartbeat. He has a history of known coronary artery disease status post coronary artery bypass surgery in 2003. He had a left internal mammary artery to the left anterior descending artery, saphenous vein graft to the circumflex artery, and saphenous vein graft to the posterior descending artery. He has also had a history of atrial fibrillation and underwent an unsuccessful cardioversion in 2015 but successful amiodarone assisted cardioversion in February 2019. He did have an ischemic cardiomyopathy which resolved and his last echocardiogram in June of this year demonstrated improvement in his ejection fraction to 65%. He also has a history of mild pulmonary hypertension and hyperlipidemia. He had been managed on medical therapy and was not complaining of any cardiac symptoms. He however says that he felt his heart rate was a little low in the high 40s approximately a week ago. He successfully underwent cataract surgery last week without any problems. However over the weekend he felt his heart rate was going up and so he decided to present to the emergency room because he did not think he could be seen in the office. At this particular time he is asymptomatic. He denies any chest pain no paroxysmal nocturnal dyspnea. He still has his left olecranon bursa. His heart rate on the monitor is in the high 80s today. [] Past Medical History Allergies/Adverse Reactions: Allergies hydrocodone [From Vicodin] Allergy (Severe, Verified 08/27/19 03:26) Rash aspirin Allergy (Intermediate, Verified 08/27/19 03:26) Swelling around eyes pseudoephedrine [From Sudafed] Adverse Reaction (Severe, Verified 08/27/19 03:26) Myalgias & flu like symptoms simvastatin [From Zocor] Adverse Reaction (Severe, Verified 08/27/19 03:26) Myalgias Sulfa (Sulfonamide Antibiotics) Adverse Reaction (Mild, Verified 08/27/19 03:26) Severe Pain in joints Home Medications: Ambulatory Orders Medication Instructions Recorded Finasteride [Proscar] 5 mg PO QHS 04/18/15 Bethanechol Chloride [Urecholine] 50 mg PO BID 12/08/16 colchicine 0.6 mg tablet 0.6 mg PO QODAY tab 10/11/18 apixaban 2.5 mg tablet 2.5 mg PO BID #180 tab 01/31/19 Allopurinol 300 mg PO DAILY 02/17/19 Calcitriol 0.25 mcg PO QHS 02/17/19 Doxazosin Mesylate [Cardura Xl] 4 mg PO QHS 02/17/19 Ergocalciferol [Vitamin D] 50,000 unit PO WE 02/17/19 Furosemide [Lasix] 40 mg PO DAILY #30 tab 02/28/19 amiodarone 200 mg tablet 200 mg PO DAILY #90 tab 04/10/19 lisinopril 2.5 mg tablet 2.5 mg PO DAILY #90 tab 04/10/19 metoprolol tartrate 25 mg tablet 25 mg PO BID #180 tab 08/02/19 Nystatin [Mycostatin] 1 applic TOPICAL BID 08/27/19 Potassium Chloride [K-Dur] 20 meq PO DAILY 08/27/19 Tamsulosin HCl [Flomax] 0.4 mg PO DAILY 08/27/19 Past Medical History (Chronic Problems): Chronic Problems (Last Reviewed 08/27/19 @ 05:[address] Blair Ochoa MD) NSTEMI (non-ST elevated myocardial infarction) (Chronic) Atherosclerosis of [place] coronary artery of [place] heart without angina pectoris (Chronic) CABG X 3: VILLEDA-LAD, SVG-LCx, SVG-RPDA 10/10/2003 H/O coronary artery bypass surgery (Chronic 10/10/03) CABG X 3: VILLEDA-LAD, SVG-LCx, SVG-RPDA 10/10/2003 Old inferior wall myocardial infarction (Chronic) Ischemic cardiomyopathy (Chronic) Longstanding persistent atrial fibrillation (Chronic) Acute on chronic systolic (congestive) heart failure (Chronic) 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 Blair Ochoa MD) Father Sudden cardiac Sister Heart disease Sudden cardiac Father Sudden cardiac History Items: No pertinent history Paternal Family History: Family History (Last Reviewed 08/27/19 @ 05:[address] Blair Ochoa MD) Father Sudden cardiac Sister Heart disease Sudden cardiac Father Sudden cardiac History Items: No pertinent history Lives: Alone Smoking Status: Former smoker Alcohol: None Drugs: None Review of Systems - Review of Systems General: Reports: Weakness. Denies: Fever, Fatigue, Night Sweats HEENT: Denies: Vision Change Cardiovascular: Reports: Palpitations. Denies: Chest Discomfort, Shortness of Breath, Orthopnea, PND, Peripheral Edema, Lightheadedness, Dizziness, Near Syncope, Syncope Respiratory: Denies: Cough, Sputum Production, Hemoptysis Gastrointestinal: Denies: Hematemesis, Hematochezia, Melena Genitourinary: Denies: Dysuria, Hematuria Muscoloskeletal: Denies: Myalgias Skin: Denies: Rash Psychiatric: Reports: Anxiety Objective: Vital Signs Temp Pulse Resp BP Pulse Ox 97.4 F L 79 16 136/89 H 95 08/27/19 06:28 08/27/19 07:00 08/27/19 06:28 08/27/19 06:28 08/27/19 06:32 Oxygen Flow Rate (L/min) 2 Oxygen Delivery Method Nasal Cannula Weight: 234 lb 9.149 oz Body Mass Index (BMI) 37.7 Finger Stick Blood Glucose 143 Intake and Output for Last 24 Hours 08/25/19 08/26/19 08/27/19 23:59 23:59 23:59 Intake Total 120 / 120 Output Total 800 / 800 Balance -680 / -680 08/27/19 00:15: WBC 6.9, RBC 3.88 L, Hgb 12.3 L, Hct 38.8 L, MCV 100.0 H, MCH 31.7, MCHC 31.7 L, Plt Count 197, MPV 10.9, Immature Gran % (Auto) 1.300 H, Neut % (Auto) 69.5, Lymph % (Auto) 16.3 L, [place] % (Auto) 8.8, Eos % (Auto) 3.2, Baso % (Auto) 0.9, Absolute Neuts (auto) 4.8, Nucleated RBC % 0 08/27/19 00:15: Sodium 143, Potassium 3.9, Chloride 107, Carbon Dioxide 29.0, Anion Gap 7, BUN 42 H, Creatinine 2.87 H, Est GFR (MDRD) Af Amer 28 L, Est GFR (MDRD) Non-Af 23 L, BUN/Creatinine Ratio 14.6, Glucose 150 H, Calcium 9.2, Troponin I < 0.015 08/27/19 00:15: Magnesium 2.1 08/27/19 05:10: WBC 7.6, RBC 3.75 L, Hgb 11.9 L, Hct 36.9 L, MCV 98.4 H, MCH 31.7, MCHC 32.2, Plt Count 186, MPV 10.4, Immature Gran % (Auto) 0.900, Neut % (Auto) 72.4 H, Lymph % (Auto) 14.7 L, [place] % (Auto) 8.7, Eos % (Auto) 2.8, Baso % (Auto) 0.5, Absolute Neuts (auto) 5.5, Nucleated RBC % 0 08/27/19 05:10: Sodium 141, Potassium 3.8, Chloride 105, Carbon Dioxide 29.0, Anion Gap 7, BUN 43 H, Creatinine 2.51 H, Est GFR (MDRD) Af Amer 32 L, Est GFR (MDRD) Non-Af 27 L, BUN/Creatinine Ratio 17.1, Glucose 132 H, Calcium 9.1 Rhythm: EKG: Atrial fibrillation with a controlled ventricular response rate ECHO: Stress Test: Cardiac Cath: PCI: CT Surgery: Holter monitor: EPS: PPM: CXR: Chest CT Scan: Assessment/Plan 1.H/O coronary artery bypass surgery Z95.1 CABG X 3: VILLEDA-LAD, SVG-LCx, SVG-RPDA 10/10/2003 He does not appear to have any angina at this time so I would recommend we continue him on the current medical therapy 3. Ischemic cardiomyopathy I25.5 Plan His most recent echocardiogram showed ejection an ejection fraction of 65%. At this time we will continue following him. 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 Echo Complete 5 Weeks 3. Atrial fibrillation. * His ventricular response rate appears to be controlled. My recommendation would be for us to continue him on the current medical therapy with no changes. * His medication dosages will be adjusted at this visit. * At this time I do not think that there is a reason for him to be hospitalized. This can be followed up as an outpatient. * * Thank you for allowing me to participate in the care of your patient. Please don't hesitate to call if any issues arise.
[2019-08-27] MEDS: Allopurinol 300 MG Tablet PO (09:01)
--- NOTE | 2019-08-27 09:43 | PCM.DC ---
You will use the following diet at home:: Cardiac Discharge Activity: Return to Normal Activity Call your doctor if you observe: Shortness of breath, Dizziness, Fainting spells, Chest pain Allergies/Adverse Reactions: Allergies hydrocodone [From Vicodin] Allergy (Severe, Verified 08/27/19 03:26) Rash aspirin Allergy (Intermediate, Verified 08/27/19 03:26) Swelling around eyes pseudoephedrine [From Sudafed] Adverse Reaction (Severe, Verified 08/27/19 03:26) Myalgias & flu like symptoms simvastatin [From Zocor] Adverse Reaction (Severe, Verified 08/27/19 03:26) Myalgias Sulfa (Sulfonamide Antibiotics) Adverse Reaction (Mild, Verified 08/27/19 03:26) Severe Pain in joints Medications to take at Discharge Finasteride [Proscar] 5 mg PO QHS 04/18/15 Bethanechol Chloride [Urecholine] 50 mg PO BID 12/08/16 colchicine 0.6 mg tablet 0.6 mg PO QODAY tab 01/13/18 apixaban 2.5 mg tablet 2.5 mg PO BID #180 tab 01/31/19 Allopurinol 300 mg PO DAILY 02/17/19 Calcitriol 0.25 mcg PO QHS 02/17/19 Doxazosin Mesylate [Cardura Xl] 4 mg PO QHS 02/17/19 Ergocalciferol [Vitamin D] 50,000 unit PO WE 02/17/19 Furosemide [Lasix] 40 mg PO DAILY #30 tab 02/28/19 amiodarone 200 mg tablet 200 mg PO DAILY #90 tab 04/10/19 lisinopril 2.5 mg tablet 2.5 mg PO DAILY #90 tab 04/10/19 Metoprolol Tartrate [Lopressor (beta evelin)] 50 mg PO BID #60 tab 08/27/19 Nystatin [Mycostatin] 1 applic TOPICAL BID 08/27/19 Potassium Chloride [K-Dur] 20 meq PO DAILY 08/27/19 Tamsulosin HCl [Flomax] 0.4 mg PO DAILY 08/27/19 The following prescriptions were given: Metoprolol Tartrate [Lopressor (beta evelin)] 50 mg PO BID #60 tab Transmission Status: Pending to [facility] [place] Primary Care Physician: Vicki Trejo DO [Primary Care Provider] - Please follow up with your Primary Care Physician in: 1 Week Test Results: Test results from this visit will be discussed in further detail at your follow-up appointment, if applicable. Please Follow Up With: Jimi Greenfield MD When: 1 Week, may see [facility] [employer]/PA Please Follow Up With: Primary degree clerk When: Within 1 week Proposed Discharge Date: 08/27/19
--- NOTE | 2019-08-27 09:47 | DS.PCM_ITS ---
Discharge Date and Diagnosis Date of Admission: 08/27/19 Date of Discharge: 08/27/19 - Primary Discharge Diagnosis Acute Problems: 1. Atrial fibrillation with RVR 2. Ischemic cardiomyopathy 3. CAD with history of CABG x3 4. Chronic kidney disease stage III-IV 5. AUDRA with chronic nocturnal hypoxia 6. Type 2 diabetes mellitus 7. Hypertension 8. BPH/urinary retention 9. History of gout 10. Obesity - Secondary Discharge Diagnosis Chronic Problems: Chronic Problems (Last Reviewed 08/27/19 @ 05:[address] Blair Ochoa MD) NSTEMI (non-ST elevated myocardial infarction) (Chronic) Atherosclerosis of [place] coronary artery of [place] heart without angina pectoris (Chronic) CABG X 3: VILLEDA-LAD, SVG-LCx, SVG-RPDA 10/10/2003 H/O coronary artery bypass surgery (Chronic 10/10/03) CABG X 3: VILLEDA-LAD, SVG-LCx, SVG-RPDA 10/10/2003 Old inferior wall myocardial infarction (Chronic) Ischemic cardiomyopathy (Chronic) Longstanding persistent atrial fibrillation (Chronic) Acute on chronic systolic (congestive) heart failure (Chronic) CVA (cerebral vascular accident) (Chronic) lower left cerebellar hemisphere Essential (primary) hypertension (Chronic) Hyperlipidemia (Chronic) Hospital Course and Treatment Imaging Results: Diagnostic Data Chest X-Ray 08/26/19 23:57 IMPRESSION: There is moderate cardiac enlargement. There is prominence of the pulmonary hilar arteries and peripheral pulmonary arteries, consistent with congestive heart failure (CHF). Electronically Signed: Schmidt Saadia, at 1:15 EDT Tel , Service support , Dr. Greenfield- Cardiology Operations: None Procedures: None Summary of Care Provided: The patient is a 78 year old M admitted 08/27/2019 due to elevated heart rate. 1. Atrial fibrillation with RVR-patient asymptomatic however frequently monitors his heart rate via pulse oximeter at home and noted that his heart rate was in the 130s. He denies shortness of breath, chest pain or other associated symptoms. He received IV Cardizem bolus in ER and heart rate has since remained stable. Cardiology consulted during admission. Home metoprolol regimen increased to 50 mg twice daily. Patient is on amiodarone at baseline. Troponin negative. Chest x-ray unremarkable. Patient stable for discharge home with continued outpatient follow-up with cardiology. 2. Ischemic cardiomyopathy-previously with reduced ejection fraction however echocardiogram 06/05/2019 demonstrated an EF of 65%, stage II diastolic dysfunction. Continue medical management. 3. CAD with history of CABG x3-continue metoprolol, lisinopril, Eliquis. 4. Chronic kidney disease stage [id number] recently worsened. No acute kidney injury. Patient is following with nephrology. Continue close follow-up with nephrology. Recommend repeat BMP within 1 week. 5. AUDRA with chronic nocturnal hypoxia-continue home Pap and supplemental oxygen regimen. 6. Type 2 diabetes mellitus-diet controlled. Hemoglobin A1c February 2019 7.6%. 7. Hypertension-stable, continue current medication regimen. 8. BPH/urinary retention-follows with urology. Continue Flomax, Proscar, doxazosin, bethanechol regimen. 9. History of gout-continue allopurinol, colchicine. 10. Obesity-encouraged diet and lifestyle modifications. Patient seen and examined prior to discharge. Physical assessment as noted below. Patient is stable for discharge with follow up recommendations as noted above. This patient was seen by TARIQ Walker under the supervision of Dr. Sailnas. - Physical Exam Vitals/I&O's: Vital Signs Temp Pulse Resp BP Pulse Ox 97.6 F L 64 14 128/61 H 97 08/27/19 09:10 08/27/19 09:10 08/27/19 09:10 08/27/19 09:10 08/27/19 09:10 Oxygen Flow Rate (L/min) 2 Oxygen Delivery Method Room Air Weight: 234 lb 9.149 oz Body Mass Index (BMI) 37.7 Finger Stick Blood Glucose 143 Intake and Output for Last 24 Hours 08/25/19 08/26/19 08/27/19 23:59 23:59 23:59 Intake Total 120 / 120 Output Total 800 / 800 Balance -680 / -680 General: Alert, Oriented x3, Cooperative HEENT: Atraumatic, PERRLA, EOMI, Normocephalic Neck: Supple, No JVD, Negative Carotid Bruits Lungs: Clear to auscultation, Diminished Cardiovascular: - - Atrial fibrillation, rate controlled Abdomen: Bowel Sounds Present, Soft, Non Tender, Non-Distended, Obese Extremities: No clubbing, No cyanosis, No edema, Capillary Refill Less than 3 Seconds Skin: No rashes, No breakdown Musculoskeletal: No Tenderness to Palpation of Joints or Extremities Neurological: Cranial nerves II-XII grossly intact, Neuro grossly intact Psych/Mental Status: Normal Affect, Appropriate Laboratory Results 08/27/19 00:15: WBC 6.9, RBC 3.88 L, Hgb 12.3 L, Hct 38.8 L, MCV 100.0 H, MCH 31.7, MCHC 31.7 L, RDW Std Deviation 51.5 H, RDW Coeff of Francis 14.2, Plt Count 197, MPV 10.9, Immature Gran % (Auto) 1.300 H, Neut % (Auto) 69.5, Lymph % (Auto) 16.3 L, Cataño % (Auto) 8.8, Eos % (Auto) 3.2, Baso % (Auto) 0.9, Absolute Neuts (auto) 4.8, Absolute Lymphs (auto) 1.13, Nucleated RBC % 0 08/27/19 00:15: Sodium 143, Potassium 3.9, Chloride 107, Carbon Dioxide 29.0, Anion Gap 7, BUN 42 H, Creatinine 2.87 H, Estim Creat Clear Calc 19.45, Est GFR (MDRD) Af Amer 28 L, Est GFR (MDRD) Non-Af 23 L, BUN/Creatinine Ratio 14.6, Glucose 150 H, Calcium 9.2, Troponin I < 0.015 08/27/19 00:15: Magnesium 2.1 08/27/19 05:10: WBC 7.6, RBC 3.75 L, Hgb 11.9 L, Hct 36.9 L, MCV 98.4 H, MCH 31.7, MCHC 32.2, RDW Std Deviation 50.7 H, RDW Coeff of Francis 14.2, Plt Count 186, MPV 10.4, Immature Gran % (Auto) 0.900, Neut % (Auto) 72.4 H, Lymph % (Auto) 14.7 L, Cataño % (Auto) 8.7, Eos % (Auto) 2.8, Baso % (Auto) 0.5, Absolute Neuts (auto) 5.5, Absolute Lymphs (auto) 1.11, Nucleated RBC % 0 08/27/19 05:10: Sodium 141, Potassium 3.8, Chloride 105, Carbon Dioxide 29.0, Anion Gap 7, BUN 43 H, Creatinine 2.51 H, Estim Creat Clear Calc 22.24, Est GFR (MDRD) Af Amer 32 L, Est GFR (MDRD) Non-Af 27 L, BUN/Creatinine Ratio 17.1, Glucose 132 H, Calcium 9.1, TSH 5.16 H 08/27/19 05:10: Free T4 1.41 08/27/19 06:40: POC Glucose 127 H Current Medications Allopurinol (Zyloprim) 300 mg PO DAILY [facility] Last Admin: 08/27/19 09:01 Dose: 300 mg Documented by: Amiodarone HCl (Cordarone) 200 mg PO DAILY [facility] Last Admin: 08/27/19 08:59 Dose: 200 mg Documented by: Apixaban (Eliquis) 2.5 mg PO BID [facility] Last Admin: 08/27/19 09:00 Dose: 2.5 mg Documented by: Bethanechol Chloride (Bethanechol Chloride) 50 mg PO BID [facility] Last Admin: 08/27/19 08:58 Dose: 50 mg Documented by: Calcitriol (Rocaltrol) 0.25 mcg PO QHS [facility] Colchicine (Colchicine) 0.6 mg PO QODAY [facility] Last Admin: 08/27/19 08:59 Dose: 0.6 mg Documented by: Dextrose (D50w Syringe) 0 gm IV X1 PRN; Protocol PRN Reason: Hypoglycemia Ergocalciferol (Vitamin D) 50,000 unit PO [facility] Finasteride (Proscar) 5 mg PO QHS [facility] Glucagon () 1 mg IM .X1 PRN PRN Reason: Hypoglycemia Insulin Human Lispro (Humalog Kwikpen (Bkc)) 0 unit SC [facility]; Protocol Last Admin: 08/27/19 06:43 Dose: Not Given Documented by: Metoprolol Tartrate (Lopressor (Beta Fiordaliza)) 50 mg PO BID [facility] Non-Formulary Medication (Doxazosin Mesylate [Cardura Xl]) 4 mg PO QHS [facility] Nystatin (Mycostatin Powder) 1 applic TOPICAL BID [facility]; Protocol Last Admin: 08/27/19 09:00 Dose: 1 applicatio Documented by: [facility] Last Admin: 08/27/19 08:58 Dose: 20 meq Documented by: Sodium Chloride () 10 - 40 ml IV UD PRN PRN Reason: SALINE FLUSH Discharge Diet: Low fat/ Low Cholesterol, Carb Control Diet Discharge Activity: Return to Normal Activity Call your doctor if you observe: Shortness of breath, Dizziness, Fainting spells, Chest pain Home Medications: Medications to take at Discharge Finasteride [Proscar] 5 mg PO QHS 04/18/15 Bethanechol Chloride [Urecholine] 50 mg PO BID 12/08/16 colchicine 0.6 mg tablet 0.6 mg PO QODAY tab 01/13/18 apixaban 2.5 mg tablet 2.5 mg PO BID #180 tab 01/31/19 Allopurinol 300 mg PO DAILY 02/17/19 Calcitriol 0.25 mcg PO QHS 02/17/19 Doxazosin Mesylate [Cardura Xl] 4 mg PO QHS 02/17/19 Ergocalciferol [Vitamin D] 50,000 unit PO WE 02/17/19 Furosemide [Lasix] 40 mg PO DAILY #30 tab 02/28/19 amiodarone 200 mg tablet 200 mg PO DAILY #90 tab 04/10/19 lisinopril 2.5 mg tablet 2.5 mg PO DAILY #90 tab 04/10/19 Metoprolol Tartrate [Lopressor (beta fiordaliza)] 50 mg PO BID #60 tab 08/27/19 Nystatin [Mycostatin] 1 applic TOPICAL BID 08/27/19 Potassium Chloride [K-Dur] 20 meq PO DAILY 08/27/19 Tamsulosin HCl [Flomax] 0.4 mg PO DAILY 08/27/19 Following Prescrptions Were Given to Patient: Metoprolol Tartrate [Lopressor (beta fiordaliza)] 50 mg PO BID #60 tab Transmission Status: Pending to [facility] [facility] Primary Care Physician: Vicki Trejo DO [Primary Care Provider] - Please follow up with your Primary Care Physician in: 1 Week Please Follow Up With: Jimi Greenfield MD When: 1 Week, may see [employer]/PA Please Follow Up With: Primary cash application representative When: Within 1 week Disposition: Home Minutes spent on discharge:: 35 Patient Condition:: Stable Medical Necessity - Tobacco Use Smoking Status: Former smoker Meaningful Use Info Meaningful Use Diagnoses (Choose all that apply): None applicable
[2019-08-27] MEDS: Metoprolol Tartrate 50 MG Tablet PO (09:52)
== END 2019-08-27 09:45 | disposition home or self-care (01) ==
LOC: ED 08-27 01:06 → PCU 08-27 01:13
PROVIDERS: Admitting Provider Hospitalist; Emergency Provider Emergency Medicine; PCP Internal Medicine; Visit Provider Family Medicine
DX: I48.11 Longstanding persistent atrial fibrillation (principal); I25.5 Ischemic cardiomyopathy; N17.9 Acute kidney failure, unspecified; G47.33 Obstructive sleep apnea (adult) (pediatric); N18.4 Chronic kidney disease, stage 4 (severe); I25.10 Atherosclerotic heart disease of native coronary artery without angina pectoris; N40.1 Benign prostatic hyperplasia with lower urinary tract symptoms; R33.9 Retention of urine, unspecified; E11.22 Type 2 diabetes mellitus with diabetic chronic kidney disease; I25.2 Old myocardial infarction; E11.65 Type 2 diabetes mellitus with hyperglycemia; I13.0 Hypertensive heart and chronic kidney disease with heart failure and stage 1 through stage 4 chronic kidney disease, or unspecified chronic kidney disease; E66.9 Obesity, unspecified; I50.22 Chronic systolic (congestive) heart failure; E78.2 Mixed hyperlipidemia; M10.9 Gout, unspecified; Z95.1 Presence of aortocoronary bypass graft; Z79.899 Other long term (current) drug therapy; Z68.38 Body mass index [BMI] 38.0-38.9, adult; Z87.891 Personal history of nicotine dependence; D63.8 Anemia in other chronic diseases classified elsewhere
CPT/HCPCS: 36415; 71045; 80048; 82962; 83735; 84439; 84443; 84484; 85025; 93005; 96374; 99218; 99284; A4216; G0378

== ENCOUNTER → 2019-09-05 08:46 | Outpatient (CLI) | payer MEDICARE, OTHER, SELFPAY ==
[2019-08-30 14:49] VITALS: BMI 37.5
== END ==
PROVIDERS: PCP Internal Medicine; Referring Provider Nurse Practitioner Family; Visit Provider Nurse Practitioner Family
DX: I48.0 Paroxysmal atrial fibrillation (principal)
CPT/HCPCS: 93225; 93226

== ENCOUNTER → 2019-09-12 16:04 | Outpatient (CLI) | payer MEDICARE, OTHER, SELFPAY ==
[2019-08-30 14:49] VITALS: BMI 37.5
[2019-09-12 16:14] LABS: Bacteria 0 SEEN /hpf (None Seen); Mucous, Urine 0 SEEN /hpf (<or=2+); Red Blood Cells-Urine 0 SEEN /hpf (0-5); White Blood Cells 0 SEEN /hpf (0-5)
[2019-09-12 17:11] LABS: Color, Urine Yellow (Yellow); Glucose, Dipstick Normal (Normal); Ketone-Dipstick Negative (Negative); Leukocyte Esterase-Dipstick Negative /ul (Negative); Nitrite-Dipstick Negative (Negative); Occult Blood-Urine Negative /ul (Negative); Protein-Dipstick 100 mg/dl (Negative); Specific Gravity, Urine 1.015 (1.002-1.030); Urine Bilirubin Dipstick Negative (Negative); Urine Clarity Clear (Clear); Urine Urobilinogen 1 mg/dl (Normal); Urine pH 6.5 (5.0 - 8.0)
[2019-09-12 17:16] LABS: Protein:Creat Ratio 584 mg/g CRE (0-200)
[2019-09-12 17:46] LABS: Anion Gap 8 (5-15); BUN 33 mg/dL (7-18); BUN/Creat Ratio 12.1 RATIO (10-20); Calcium,Total 8.8 mg/dL (8.5-10.1); Chloride 108 mmol/L (98-107); Creatinine, Serum 2.72 mg/dL (0.70-1.30); EST Glomerular Filtration Rate 24 mL/min (>60); Est Glom Filt Rate - Afr Amer 29 mL/min (>60); Glucose 125 mg/dL (74-106); Potassium 4.1 mmol/L (3.5-5.1); Sodium Level 145 mmol/L (136-145)
[2019-09-12 17:57] LABS: PTHIN 106.3 pg/mL (18.4-80.1)
[2019-09-12 17:59] LABS: Hyaline Cast 10-25 SEEN /lpf (0-5); Squamous Epithelial Cells - UA 0-5 SEEN /hpf (0-5)
[2019-09-12 18:00] LABS: Vitamin D,25 Hydroxy 91.3 ng/mL
== END ==
PROVIDERS: PCP Internal Medicine; Referring Provider Internal Medicine; Visit Provider Internal Medicine
DX: N18.3 Chronic kidney disease, stage 3 (moderate) (principal); N25.81 Secondary hyperparathyroidism of renal origin
CPT/HCPCS: 36415; 80048; 81001; 82306; 82570; 83970; 84100; 84156

== ENCOUNTER → 2019-10-09 15:22 | Outpatient (CLI) | payer MEDICARE, OTHER, SELFPAY ==
[2019-08-30 14:49] VITALS: BMI 37.5
[2019-10-09 15:38] LABS: Bacteria 0 SEEN /hpf (None Seen); Mucous, Urine 0 SEEN /hpf (<or=2+); Red Blood Cells-Urine 0 SEEN /hpf (0-5); Squamous Epithelial Cells - UA 0 SEEN /hpf (0-5); White Blood Cells 0 SEEN /hpf (0-5)
--- NOTE | 2019-10-09 15:53 | US_ITS ---
STUDY: RENAL ULTRASOUND - COMPLETE REASON FOR EXAM: Male, 78 years old. Chronic renal failure. TECHNIQUE: Ultrasound evaluation of the kidneys was performed with real-time and static singh-scale imaging. COMPARISON: 02/21/2019. FINDINGS: RIGHT KIDNEY: Normal location of the right kidney, which is normal in size. The right kidney measures 12.7 x 4.9 x 5.1 cm. There is diffuse thinning of the renal cortex. The renal cortex measures 0.8 cm. There is diffuse increased echogenicity consistent with chronic medical renal disease. There are several simple cysts measuring as much as 4.4 cm. These are stable. Several possible nonobstructing stones are seen as much as 7 mm. There is no right hydronephrosis. LEFT KIDNEY: Normal location of the left kidney, which is normal in size. The left kidney measures 14.7 x 4.7 x 6.5 cm. There is diffuse thinning of the renal cortex. The renal cortex measures 0.8 cm. There is diffuse increased echogenicity consistent with chronic medical renal disease. There is a 4.4 cm cyst. There is suggestion of several nonobstructing renal stones as much as 7 mm. There is no left hydronephrosis. US/Kidney and Bladder IMPRESSION: No significant change. Evidence for chronic renal atrophy with cortical thinning and diffusely increased echogenicity. Probable nonobstructing stones. No evidence for hydronephrosis. Electronically Signed: Fred Coyne MD at 22:01 EDT , Service support ,
[2019-10-09 17:01] LABS: Protein, Urine (Random) 144.4 mg/dL (<11.9); Protein:Creat Ratio 1375 mg/g CRE (0-200)
[2019-10-09 17:06] LABS: Color, Urine Yellow (Yellow); Glucose, Dipstick Normal (Normal); Ketone-Dipstick Negative (Negative); Leukocyte Esterase-Dipstick Negative /ul (Negative); Nitrite-Dipstick Negative (Negative); Occult Blood-Urine Negative /ul (Negative); Protein-Dipstick 100 mg/dl (Negative); Urine Bilirubin Dipstick Negative (Negative); Urine Clarity Clear (Clear); Urine Urobilinogen 1 mg/dl (Normal)
[2019-10-09 17:10] LABS: BNP,B-Type NATRIURETIC PEPTIDE 1048.6 pg/mL (0-100)
[2019-10-09 17:14] LABS: Anion Gap 7 (5-15); BUN 35 mg/dL (7-18); Calcium,Total 8.7 mg/dL (8.5-10.1); Chloride 105 mmol/L (98-107); EST Glomerular Filtration Rate 27 mL/min (>60); Est Glom Filt Rate - Afr Amer 32 mL/min (>60); Glucose 130 mg/dL (74-106); Potassium 3.5 mmol/L (3.5-5.1); Sodium Level 142 mmol/L (136-145)
[2019-10-12 17:44] LABS: PROEL- A/G Ratio 1.1 (0.7-1.7); PROEL- Albumin 3.1 g/dL (2.9-4.4); PROEL- Alpha-1 Globulin 0.3 g/dL (0.0-0.4); PROEL- Alpha-2 Globulin 0.8 g/dL (0.4-1.0); PROEL- Beta Globulin 0.9 g/dL (0.7-1.3); PROEL- Gamma Globulin 0.9 g/dL (0.4-1.8); PROEL- Globulin, Total 2.9 g/dL (2.2-3.9); PROELU- Albumin, Urine 62.2 % (.); PROELU- Alpha-1-Globulin,Ur 6.3 % (.); PROELU- Alpha-2-Globulin,Ur 6.9 % (.); PROELU- Beta Globulin, Ur 13.6 % (.); Total Protein, Ur 153.4 mg/dL (Not Estab.)
== END ==
PROVIDERS: Nurse Practitioner Family; PCP Internal Medicine; Referring Provider Internal Medicine; Visit Provider Internal Medicine
DX: N18.3 Chronic kidney disease, stage 3 (moderate) (principal); R06.00 Dyspnea, unspecified
CPT/HCPCS: 36415; 76770; 80048; 81001; 82570; 83880; 84156; 84165; 84166

== ENCOUNTER → 2019-11-10 16:03 | Outpatient (CLI) | payer MEDICARE, OTHER, SELFPAY ==
[2019-08-30 14:49] VITALS: BMI 37.5
[2019-11-10 17:25] LABS: ALB/GLOB Ratio 0.9 RATIO (0.9-2.4); AST(SGOT) 19 U/L (15-37); Alanine Aminotransfer ALT/SGPT 19 U/L (16-61); Albumin, Serum 3.2 g/dL (3.2-5.0); Alkaline Phosphatase 71 U/L (45-117); Anion Gap 4 (5-15); BUN 31 mg/dL (7-18); BUN/Creat Ratio 13.4 RATIO (10-20); Calcium,Total 8.7 mg/dL (8.5-10.1); Chloride 110 mmol/L (98-107); Creatinine, Serum 2.32 mg/dL (0.70-1.30); EST Glomerular Filtration Rate 29 mL/min (>60); Est Glom Filt Rate - Afr Amer 35 mL/min (>60); Globulin 3.4 g/dL (2.2-4.2); Glucose 105 mg/dL (74-106); Potassium 3.3 mmol/L (3.5-5.1); Protein, Total 6.6 g/dL (6.4-8.2); Sodium Level 144 mmol/L (136-145)
[2019-11-10 17:30] LABS: Vitamin D,25 Hydroxy 104.3 ng/mL
[2019-11-13 16:44] LABS: Thyroglobulin Antibody < 1.0 IU/mL (0.0-0.9); Thyroid Peroxidase AB < 9 IU/mL (0-34)
[2019-11-14 12:14] LABS: PTHIN 117.1 pg/mL (18.4-80.1)
== END ==
PROVIDERS: PCP Internal Medicine; Referring Provider Internal Medicine Endocrinology, Diabetes & Metabolism; Visit Provider Internal Medicine Endocrinology, Diabetes & Metabolism
DX: E04.9 Nontoxic goiter, unspecified (principal); E55.9 Vitamin D deficiency, unspecified; N25.81 Secondary hyperparathyroidism of renal origin
CPT/HCPCS: 36415; 80053; 82306; 83970; 84443; 86376; 86800

== ENCOUNTER 2019-12-12 10:33 | Emergency (ER) | payer MEDICARE, OTHER, SELFPAY ==
[2019-08-30 14:49] VITALS: BMI 37.5
[2019-12-12 10:34] VITALS: BP 135/66; PULSE 110; RESP 16; TEMP 36.3; O2SAT 96; BMI 38.4
--- NOTE | 2019-12-12 10:49 | ED.VIS.GEN ---
History of Present Illness Chief Complaint: Cellulitis Narrative: Patient is a 78-year-old male who presents with redness and swelling of the right leg. He states he thinks he was bitten by his cat 1 week ago. He began to develop redness about 4 days ago. He denies any systemic symptoms such as fevers nausea vomiting. He states he is not a diabetic. He denies pain. Past Medical History - Allergies and Home Meds Allergies/Adverse Reactions: Allergies hydrocodone [From Vicodin] Allergy (Severe, Verified 12/12/19 10:34) Rash aspirin Allergy (Intermediate, Verified 12/12/19 10:34) Swelling around eyes pseudoephedrine [From Sudafed] Adverse Reaction (Severe, Verified 12/12/19 10:34) Myalgias & flu like symptoms simvastatin [From Zocor] Adverse Reaction (Severe, Verified 12/12/19 10:34) Myalgias Sulfa (Sulfonamide Antibiotics) Adverse Reaction (Mild, Verified 12/12/19 10:34) Severe Pain in joints Primary Care Physician: Vicki Trejo DO [Primary Care Provider] - Past Medical History: - - Atrial fibrillation, coronary artery disease, hypertension, hyperlipidemia Surgical History: coronary bypass surgery, herniorrhaphy, - - Fractures Smoking Status: Former smoker - Family History Maternal Family History: Family History (Last Reviewed 08/27/19 @ 05:[address] Blair Ochoa MD) Father Sudden cardiac Sister Heart disease Sudden cardiac Father Sudden cardiac Family History: Reports: No pertinent history Paternal Family History: Family History (Last Reviewed 08/27/19 @ 05:[address] Blair Ochoa MD) Father Sudden cardiac Sister Heart disease Sudden cardiac Father Sudden cardiac Family History: Reports: No pertinent history Review of Systems All systems negative except as indicated General: Denies: Fever Eyes: Denies: Visual changes - bilaterally Cardiovascular: Denies: Chest pain Respiratory: Denies: Dyspnea Gastrointestinal: Denies: Abdominal pain, Nausea, Vomiting Skin: Reports: Rash Neurological: Denies: Headache Allergy: Denies: Uticaria Physical Exam Vital Signs/Narrative: Vital Signs Temp Pulse Resp BP Pulse Ox 12/12/19 10:34 97.3 F L 110 H 16 135/66 H 96 Inital Vital Signs reviewed: Yes General: Obese Head: Normocephalic Eyes: EOMI ENT: Moist mucous membranes Neck: Supple Cardiovascular: Irregular, Tachycardia Respiratory: No distress Abdomen: Soft, Nontender Skin: - - Patient has a 2 cm open wound over the anterior lower right leg no abscess no fluctuance he has some clear weeping fluid related to edema no purulent discharge he does have erythema over the anterior lower leg and dorsum of the foot no lymphangitic streaking Neurological: Alert Psychological: Normal affect Diagnostic/Tx/Re-eval - Medical Decision Making I do believe the patient is a good candidate for outpatient treatment with oral antibiotics. However he was given clear instructions of specific signs and symptoms to monitor for and symptoms which should prompt return here to the emergency department including but not limited to development of any systemic symptoms such as fevers. He was advised to follow-up with his primary care physician. All questions answered at bedside. Patient agreeable to this plan. ED Disposition - Plan for ED Patient: Disposition: Home or Assisted Living Diagnosis: Cellulitis of right lower leg Instructions: ED Cellulitis Prescriptions: Clindamycin HCl [Cleocin] 300 mg PO Q6H #40 cap Prescription Printed Referrals: Vicki Trejo DO [Primary Care Provider] -
[2019-12-12 11:19] VITALS: PULSE 97; RESP 18; O2SAT 93
== END 2019-12-12 11:20 | disposition home or self-care (01) ==
LOC: ED 11:07
PROVIDERS: Emergency Provider Emergency Medicine; PCP Internal Medicine
DX: L03.115 Cellulitis of right lower limb (principal); I25.10 Atherosclerotic heart disease of native coronary artery without angina pectoris; I10 Essential (primary) hypertension; E78.5 Hyperlipidemia, unspecified; I48.91 Unspecified atrial fibrillation; Z82.49 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 of ischemic heart disease and other diseases of the circulatory system; Z87.891 Personal history of nicotine dependence; Z88.2 Allergy status to sulfonamides; Z88.5 Allergy status to narcotic agent; Z95.1 Presence of aortocoronary bypass graft
CPT/HCPCS: 99282

== ENCOUNTER 2020-02-15 13:45 | Outpatient (RCR) | payer MEDICARE, OTHER, SELFPAY ==
[2020-02-15 14:04] VITALS: BP 136/96; PULSE 83; RESP 18; TEMP 36.6; BMI 38.4
--- NOTE | 2020-02-15 16:42 | HP.PCM_ITS ---
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 (2) Nonhealing ulcer of right lower extremity with fat layer exposed Status: Acute Code(s): L97.912 - Non-pressure chronic ulcer of unspecified part of right lower leg with fat layer exposed (3) Cellulitis of both lower extremities Status: Acute Code(s): L03.115 - Cellulitis of right lower limb; L03.116 - Cellulitis of left lower limb (4) Acute on chronic systolic (congestive) heart failure Status: Chronic Code(s): I50.23 - Acute on chronic systolic (congestive) heart failure (5) Atherosclerosis of [place] coronary artery of [place] heart without angina pectoris Status: Chronic Code(s): I25.10 - Atherosclerotic heart disease of [place] coronary artery without angina pectoris Comment: CABG X 3: VILLEDA-LAD, SVG-LCx, SVG-RPDA 10/10/2003 (6) Essential (primary) hypertension Status: Chronic Code(s): I10 - Essential (primary) hypertension (7) H/O coronary artery bypass surgery Status: Chronic Code(s): Z95.1 - Presence of aortocoronary bypass graft Comment: CABG X 3: VILLEDA-LAD, SVG-LCx, SVG-RPDA 10/10/2003 (8) Hyperlipidemia Status: Chronic Qualifiers: Code(s): E78.5 - Hyperlipidemia, unspecified (9) Ischemic cardiomyopathy Status: Chronic Code(s): I25.5 - Ischemic cardiomyopathy (10) Longstanding persistent atrial fibrillation Status: Chronic Code(s): I48.11 - Longstanding persistent atrial fibrillation (11) NSTEMI (non-ST elevated myocardial infarction) Status: Chronic Code(s): I21.4 - Non-ST elevation (NSTEMI) myocardial infarction (12) CKD (chronic kidney disease) stage 4, GFR 15-29 ml/min Status: Chronic Code(s): N18.4 - Chronic kidney disease, stage 4 (severe) History of Present Illness Date of Service: 02/15/20 Chief Complaint: cat bite/scratches bilateral lower extremities History of Wound: This is a 79-year-old white male who presents to the wound healing center today for complaint of bilateral lower extremity traumatic wounds are not healing, these are said to have occurred approximately 2 months ago after his cat scratched and bit his bilateral lower extremities. He has a past medical history which is significant for CHF with reduced ejection fraction, atrial fibrillation, chronic lower extremity edema, and hypertension. He initially did go to the ER on 12/12/2019 and was diagnosed with cellulitis and started on clindamycin, he states that he only tolerated the clindamycin for couple days and has since discontinued. He does note that the redness has improved, however he states that his lower extremity edema has been worsening. He was unable to be weighed today but he states that he has noted a weight gain which has been significant. He states that the swelling has traveled up to his thighs, scrotum, and abdomen from his lower extremities. He does note that his swelling has been gradually worsening over the last couple months after his professor of sport management cut his Lasix dosage in half. He denies any shortness of breath or orthopnea at this time. For wound care he has been utilizing [id number] antibiotic ointment and covering with gauze. He has noted a significantly large amount of drainage from his wounds that is clear. On clinical exam his shoes were actually filled with drainage from his wounds. He denies any other acute concerns at this time. All other systems reviewed and negative with exception of those listed above. Past Medical History Past Medical History: Chronic Problems (Last Reviewed 08/27/19 @ 05:[address] Blair Ochoa MD) CKD (chronic kidney disease) stage 4, GFR 15-29 ml/min (Chronic) Paroxysmal atrial fibrillation (Chronic) DCCV on 02/27/2019; NSTEMI (non-ST elevated myocardial infarction) (Chronic) Atherosclerosis of [place] coronary artery of [place] heart without angina pectoris (Chronic) CABG X 3: VILLEDA-LAD, SVG-LCx, SVG-RPDA 10/10/2003 H/O coronary artery bypass surgery (Chronic 10/10/03) CABG X 3: VILLEDA-LAD, SVG-LCx, SVG-RPDA 10/10/2003 Old inferior wall myocardial infarction (Chronic) Ischemic cardiomyopathy (Chronic) Longstanding persistent atrial fibrillation (Chronic) Acute on chronic systolic (congestive) heart failure (Chronic) CVA (cerebral vascular accident) (Chronic) lower left cerebellar hemisphere Essential (primary) hypertension (Chronic) Hyperlipidemia (Chronic) Surgical History: coronary bypass surgery, herniorrhaphy, - - Fractures Allergies/Adverse Reactions: Allergies hydrocodone [From Vicodin] Allergy (Severe, Verified 02/15/20 14:31) Rash aspirin Allergy (Intermediate, Verified 02/15/20 14:31) Swelling around eyes pseudoephedrine [From Sudafed] Adverse Reaction (Severe, Verified 02/15/20 14: 31) Myalgias & flu like symptoms simvastatin [From Zocor] Adverse Reaction (Severe, Verified 02/15/20 14:31) Myalgias Sulfa (Sulfonamide Antibiotics) Adverse Reaction (Mild, Verified 02/15/20 14:31) Severe Pain in joints Home Medications: Ambulatory Orders Medication Instructions Recorded Finasteride [Proscar] 5 mg PO QHS 04/18/15 Bethanechol Chloride [Urecholine] 50 mg PO BID 12/08/16 colchicine 0.6 mg tablet 0.6 mg PO QODAY tab 01/13/18 apixaban 2.5 mg tablet 2.5 mg PO BID #180 tab 01/31/19 Allopurinol 300 mg PO DAILY 02/17/19 Doxazosin Mesylate [Cardura Xl] 4 mg PO QHS 02/17/19 Ergocalciferol [Vitamin D] 50,000 unit PO 02/17/19 amiodarone 200 mg tablet 200 mg PO DAILY #90 tab 04/10/19 lisinopril 2.5 mg tablet 2.5 mg PO DAILY #90 tab 04/10/19 Potassium Chloride [K-Dur] 20 meq PO BID 08/27/19 furosemide 40 mg tablet 40 mg PO BID tab 02/15/20 - Family History Maternal Family History: Family History (Last Reviewed 08/27/19 @ 05:[address] Blair Ochoa MD) Father Sudden cardiac Sister Heart disease Sudden cardiac Father Sudden cardiac No pertinent history Paternal Family History: Family History (Last Reviewed 08/27/19 @ 05:[address] Blair Ochoa MD) Father Sudden cardiac Sister Heart disease Sudden cardiac Father Sudden cardiac No pertinent history Smoking Status: Former smoker Review of Systems Constitutional: Denies: Chills, Fever, Weight Change Eyes: Denies: Pain, Vision Change HEENT: Denies: Difficulty Hearing, Difficulty Swallowing, Sinus Congestion Cardiovascular: Reports: Edema. Denies: Chest Pain, Palpitations Respiratory: Denies: Cough, Shortness of Breath Gastrointestinal: Denies: Diarrhea, Nausea, Vomiting Genitourinary: Denies: Dysuria, Hematuria Skin: Reports: Wounds - See HPI Endocrine: Denies: Heat/ Cold Intolerance, Polydipsia, Polyuria Hematologic/ Lymphatic: Denies: Easy Bruising, Easy Bleeding - Physical Exam Vital Signs Temp Pulse Resp BP 97.9 F 83 18 136/96 H 02/15/20 14:04 02/15/20 14:04 02/15/20 14:04 02/15/20 14:04 General: Alert, Oriented x3, Cooperative, No apparent distress HEENT: Atraumatic Oral: Moist Mucosa Neck: Supple Lungs: Clear to auscultation, Normal air movement Cardiovascular: Regular rate Abdomen: Soft, Non Tender, Obese Extremities: No clubbing, No cyanosis, Edema - 3-4+ pitting edema to bilateral lower extremities which extends to the upper thighs scrotum and lower abdomen Skin: Ulcer/ Wound - See nursing documentation, slough and devitalized tissue present, large amount of serous drainage present to bilateral lower extremity ulcers Wound Measurements and Assessment WC - Nurse 1 - General Ulcer Measurement Start: 02/15/20 14:03 Freq: Status: Active Protocol: Activity Type Activity Date Activity User E-Sign Co-Sign Detail Recorded Client Recorded Date Recorded By Document 02/15/20 14:04 [facility] [id number] 02/15/20 14:28 [facility] 02/15/20 14:04 Wound Center Nurse 1 [Ulcer Assessment] #3- R LAT BO -Combined with other wound No -Current Size (cm) - Length 0.3 -Current Size (cm) - Width 0.5 -Current Size (cm) - Depth 0.3 -Total Square Cm 0.15 -Date of Last Picture (Recall this 02/15/20 field) -Photo Taken Yes -Epithelialization None Present -Tunneling No -Undermining/Tunneling No -Circular Undermining No -Exudate Amt Medium -Exudate Type Serous -Wound Margin Distinct, Outline Attached -Granulation Amt None Present (0 %) -Slough/Fibrin Yes -Necrosis Amt Large (67-100%) -Necrotic Tissue Type Adherent Slough -Texture (Kim-wound Skin Appearance) Assessed, Scarring -Moisture (Kim-wound Skin Appearance Assessed, ) Weeping -Color (Kim-wound Skin Appearance) Assessed, Erythema -Temperature (Kim-wound Skin No Abnormality Appearance) (Pt Warm) -Tenderness on Palpation (Kim-wound No Skin Appearance) -Ulcer Cleansing SOAPY WATER -Foul Odor after Cleansing No -Anesthetic Used 4% Lidocaine Solution #2- R MED BO CLUSTER -Combined with other wound No -Current Size (cm) - Length 3.8 -Current Size (cm) - Width 3.3 -Current Size (cm) - Depth 0.2 -Total Square Cm 12.54 -Date of Last Picture (Recall this 02/15/20 field) -Photo Taken Yes -Epithelialization None Present -Tunneling No -Undermining/Tunneling No -Circular Undermining No -Exudate Amt Large -Exudate Type Serous -Wound Margin Distinct, Outline Attached -Granulation Amt Small (1-33%) -Granulation Quality Red -Slough/Fibrin Yes -Necrosis Amt Large (67-100%) -Necrotic Tissue Type Adherent Slough -Texture (Kim-wound Skin Appearance) Assessed, Scarring -Moisture (Kim-wound Skin Appearance Assessed, ) Maceration, Weeping -Color (Kim-wound Skin Appearance) Assessed, Erythema,Palor -Temperature (Kim-wound Skin No Abnormality Appearance) (Pt Warm) -Tenderness on Palpation (Kim-wound No Skin Appearance) -Ulcer Cleansing SOAPY WATER -Foul Odor after Cleansing No -Anesthetic Used 4% Lidocaine Solution #1- L BO -Combined with other wound No -Current Size (cm) - Length 0.3 -Current Size (cm) - Width 0.3 -Current Size (cm) - Depth 0.2 -Total Square Cm 0.09 -Date of Last Picture (Recall this 02/15/20 field) -Photo Taken Yes -Epithelialization None Present -Tunneling No -Undermining/Tunneling No -Circular Undermining No -Exudate Amt Medium -Exudate Type Serous -Wound Margin Distinct, Outline Attached -Granulation Amt None Present (0 %) -Slough/Fibrin Yes -Necrosis Amt Large (67-100%) -Necrotic Tissue Type Adherent Slough -Texture (Kim-wound Skin Appearance) Assessed -Moisture (Kim-wound Skin Appearance Assessed, ) Weeping -Color (Kim-wound Skin Appearance) Assessed -Temperature (Kim-wound Skin No Abnormality Appearance) (Pt Warm) -Tenderness on Palpation (Kim-wound No Skin Appearance) -Ulcer Cleansing SOAPY WATER -Foul Odor after Cleansing No -Anesthetic Used 4% Lidocaine Solution [Edema Assessment] -Lower Limb Edema Present Yes -Right Calf (cm) 45 -Right Ankle (cm) 34 -Left Calf (cm) 45 -Left Ankle (cm) 33.2 WC - Nurse 2 - General Ulcer CM Notes Start: 02/15/20 14:03 Freq: Status: Active Protocol: Activity Type Activity Date Activity User E-Sign Co-Sign Detail Recorded Client Recorded Date Recorded By Document 02/15/20 14:54 MW [id number] 02/15/20 15:05 MW 02/15/20 14:54 Wound Center Nurse 2 [Procedure/Treatment] #3- R LAT BO -Time 14:56 -Correct Patient Yes -Correct Side, Site, Position Yes -Correct Procedure Yes -Procedure Performed Yes -Type of Procedure Debridement -Clinical Debridement Subcutaneous -Tissue Removed Subcutaneous -Post Debridement (cm) - Length 0.5 -Post Debridement (cm) - Width 0.5 -Post Debridement (cm) - Depth 0.2 -Total Square (Post) (cm) 0.25 -Area of Debridement (cm) - Length 0.5 -Area of Debridement (cm) - Width 0.5 -Total Square (Area) (cm) 0.25 -Tunneling No -Undermining/Tunneling No -Circular Undermining No -Wound/Ulcer Outcome Not Healed -Ulcer Cleansing Rinsed/ Irrigated with Saline -Foul Odor after Cleansing No -Bioengineered Tissue No -Bleeding Controlled with Pressure -Offloading No -Debridement - Subq, 1st 20sq cm Yes #2- R MED BO CLUSTER -Time 15:02 -Correct Patient Yes -Correct Side, Site, Position Yes -Correct Procedure Yes -Procedure Performed Yes -Type of Procedure Debridement -Clinical Debridement Subcutaneous -Tissue Removed Subcutaneous -Post Debridement (cm) - Length 10.0 -Post Debridement (cm) - Width 4.0 -Post Debridement (cm) - Depth 0.2 -Total Square (Post) (cm) 40.00 -Area of Debridement (cm) - Length 10.0 -Area of Debridement (cm) - Width 4.0 -Total Square (Area) (cm) 40.00 -Tunneling No -Undermining/Tunneling No -Circular Undermining No -Wound/Ulcer Outcome Not Healed -Ulcer Cleansing Rinsed/ Irrigated with Saline -Foul Odor after Cleansing No -Bioengineered Tissue No -Bleeding Controlled with Pressure -Offloading No -Treatment Response Procedure Tolerated Well -Debridement - Subq, 1st 20sq cm No #1- L BO -Time 15:03 -Correct Patient Yes -Correct Side, Site, Position Yes -Correct Procedure Yes -Procedure Performed Yes -Type of Procedure Debridement -Clinical Debridement Subcutaneous -Tissue Removed Subcutaneous -Post Debridement (cm) - Length 4.2 -Post Debridement (cm) - Width 0.5 -Post Debridement (cm) - Depth 0.2 -Total Square (Post) (cm) 2.10 -Area of Debridement (cm) - Length 4.2 -Area of Debridement (cm) - Width 0.5 -Total Square (Area) (cm) 2.10 -Tunneling No -Undermining/Tunneling No -Circular Undermining No -Wound/Ulcer Outcome Not Healed -Ulcer Cleansing Rinsed/ Irrigated with Saline -Foul Odor after Cleansing No -Bioengineered Tissue No -Bleeding Controlled with Pressure -Offloading No -Treatment Response Procedure Tolerated Well -Debridement - Subq, 1st 20sq cm No [See Physician Procedure note for Specifics] Pain Scale: 0-10 Numeric [Pain] -Is Patient Pain Free? Yes WC - Nurse 3 - General Ulcer D/C NN Start: 02/15/20 14:03 Freq: Status: Active Protocol: Activity Type Activity Date Activity User E-Sign Co-Sign Detail Recorded Client Recorded Date Recorded By Document 02/15/20 15:19 [facility] [id number] 02/15/20 15:20 [facility] 02/15/20 15:19 Wound Care Nurse 3 [Wound Dressing] #3- R LAT BO -Ulcer Cleansing Rinsed/ Irrigated with Saline -Foul Odor after Cleansing No -Primary Dressing Applied Silvercel -Other Dressing SILVERCEL -Primary Dressing Covered/Secured Other with -Other Covering UNNA BOOT -Silvercel 1 #2- R MED BO CLUSTER -Ulcer Cleansing Rinsed/ Irrigated with Saline -Foul Odor after Cleansing No -Primary Dressing Applied Silvercel -Primary Dressing Covered/Secured Other with -Other Covering UNNA BOOT -Silvercel 0 #1- L BO -Ulcer Cleansing Rinsed/ Irrigated with Saline -Foul Odor after Cleansing No -Primary Dressing Applied Silvercel -Primary Dressing Covered/Secured Other with -Other Covering UNNA BOOT -Silvercel 0 [Compression Applied] Right -Multi-Layered Wrap Application Unna Boot - Bilateral ($) -Unna Boots (Bilat) ($) 0 -Other USED 1 UNNA FOR BOTH LEGS Left -Multi-Layered Wrap Application Unna Boot - Bilateral ($) -Unna Boots (Bilat) ($) 1 Pain Scale: 0-10 Numeric [Pain] -Is Patient Pain Free? Yes WC - Visit Discharge [Visit Discharge Information] -Discharge Condition Stable -Ambulatory Status Ambulatory,Cane -Transportation Private Auto Musculoskeletal: No Tenderness to Palpation of Joints or Extremities Neurological: Neuro grossly intact Psych/Mental Status: Normal Affect, Appropriate, Alert and oriented to time, place, person, mood and affect Debridement Note Post-Debridement Measurements/Treatment WC - Nurse 2 - General Ulcer CM Notes Start: 02/15/20 14:03 Freq: Status: Active Protocol: Activity Type Activity Date Activity User E-Sign Co-Sign Detail Recorded Client Recorded Date Recorded By Document 02/15/20 14:54 MW [id number] 02/15/20 15:05 MW 02/15/20 14:54 Wound Center Nurse 2 #3- R LAT BO -Time 14:56 -Correct Patient Yes -Correct Side, Site, Position Yes -Correct Procedure Yes -Procedure Performed Yes -Type of Procedure Debridement -Clinical Debridement Subcutaneous -Tissue Removed Subcutaneous -Post Debridement (cm) - Length 0.5 -Post Debridement (cm) - Width 0.5 -Post Debridement (cm) - Depth 0.2 -Total Square (Post) (cm) 0.25 -Area of Debridement (cm) - Length 0.5 -Area of Debridement (cm) - Width 0.5 -Total Square (Area) (cm) 0.25 -Tunneling No -Undermining/Tunneling No -Circular Undermining No -Wound/Ulcer Outcome Not Healed -Ulcer Cleansing Rinsed/ Irrigated with Saline -Foul Odor after Cleansing No -Bioengineered Tissue No -Bleeding Controlled with Pressure -Offloading No -Debridement - Subq, 1st 20sq cm Yes #2- R MED BO CLUSTER -Time 15:02 -Correct Patient Yes -Correct Side, Site, Position Yes -Correct Procedure Yes -Procedure Performed Yes -Type of Procedure Debridement -Clinical Debridement Subcutaneous -Tissue Removed Subcutaneous -Post Debridement (cm) - Length 10.0 -Post Debridement (cm) - Width 4.0 -Post Debridement (cm) - Depth 0.2 -Total Square (Post) (cm) 40.00 -Area of Debridement (cm) - Length 10.0 -Area of Debridement (cm) - Width 4.0 -Total Square (Area) (cm) 40.00 -Tunneling No -Undermining/Tunneling No -Circular Undermining No -Wound/Ulcer Outcome Not Healed -Ulcer Cleansing Rinsed/ Irrigated with Saline -Foul Odor after Cleansing No -Bioengineered Tissue No -Bleeding Controlled with Pressure -Offloading No -Treatment Response Procedure Tolerated Well -Debridement - Subq, 1st 20sq cm No #1- L BO -Time 15:03 -Correct Patient Yes -Correct Side, Site, Position Yes -Correct Procedure Yes -Procedure Performed Yes -Type of Procedure Debridement -Clinical Debridement Subcutaneous -Tissue Removed Subcutaneous -Post Debridement (cm) - Length 4.2 -Post Debridement (cm) - Width 0.5 -Post Debridement (cm) - Depth 0.2 -Total Square (Post) (cm) 2.10 -Area of Debridement (cm) - Length 4.2 -Area of Debridement (cm) - Width 0.5 -Total Square (Area) (cm) 2.10 -Tunneling No -Undermining/Tunneling No -Circular Undermining No -Wound/Ulcer Outcome Not Healed -Ulcer Cleansing Rinsed/ Irrigated with Saline -Foul Odor after Cleansing No -Bioengineered Tissue No -Bleeding Controlled with Pressure -Offloading No -Treatment Response Procedure Tolerated Well -Debridement - Subq, 1st 20sq cm No Pain Scale: 0-10 Numeric Is Patient Pain Free? Yes WC - Nurse 3 - General Ulcer D/C NN Start: 02/15/20 14:03 Freq: Status: Active Protocol: Activity Type Activity Date Activity User E-Sign Co-Sign Detail Recorded Client Recorded Date Recorded By Document 02/15/20 15:19 [facility] [id number] 02/15/20 15:20 [facility] 02/15/20 15:19 Wound Care Nurse 3 #3- R LAT BO -Ulcer Cleansing Rinsed/ Irrigated with Saline -Foul Odor after Cleansing No -Primary Dressing Applied Silvercel -Other Dressing SILVERCEL -Primary Dressing Covered/Secured with Other -Other Covering UNNA BOOT -Silvercel 1 #2- R MED BO CLUSTER -Ulcer Cleansing Rinsed/ Irrigated with Saline -Foul Odor after Cleansing No -Primary Dressing Applied Silvercel -Primary Dressing Covered/Secured with Other -Other Covering UNNA BOOT -Silvercel 0 #1- L BO -Ulcer Cleansing Rinsed/ Irrigated with Saline -Foul Odor after Cleansing No -Primary Dressing Applied Silvercel -Primary Dressing Covered/Secured with Other -Other Covering UNNA BOOT -Silvercel 0 Right -Multi-Layered Wrap Application Unna Boot - Bilateral ($) -Unna Boots (Bilat) ($) 0 -Other USED 1 UNNA FOR BOTH LEGS Left -Multi-Layered Wrap Application Unna Boot - Bilateral ($) -Unna Boots (Bilat) ($) 1 Pain Scale: 0-10 Numeric Is Patient Pain Free? Yes WC - Visit Discharge Discharge Condition Stable Ambulatory Status Ambulatory,Cane Transportation Private Auto Wound debrided: Venous leg ulcers bilateral lower extremities Type of Debridement: Excisional debridement Anesthesia Used: 5% Lidocaine Gel Depth: in the subcutaneous layer Percentage of wound debrided: 100 Instrument Used: 5mm curette Tissue Removed: Devitalized tissue Severity: Fat Layer Exposed Amount of bleeding with debridement: Mild Bleeding Controlled with: Pressure Patient tolerated procedure well Assessment/Plan Active Problems (Last Reviewed 08/27/19 @ 05:[address] Blair Ochoa MD) Cellulitis of both lower extremities (Acute) Nonhealing ulcer of right lower extremity with fat layer exposed (Acute) Nonhealing ulcer of left lower extremity with fat layer exposed (Acute) NSTEMI (non-ST elevated myocardial infarction) (Chronic) Atherosclerosis of [place] coronary artery of [place] heart without angina pectoris (Chronic) CABG X 3: VILLEDA-LAD, SVG-LCx, SVG-RPDA 10/10/2003 H/O coronary artery bypass surgery (Chronic 10/10/03) CABG X 3: VILLEDA-LAD, SVG-LCx, SVG-RPDA 10/10/2003 Ischemic cardiomyopathy (Chronic) Longstanding persistent atrial fibrillation (Chronic) Acute on chronic systolic (congestive) heart failure (Chronic) Essential (primary) hypertension (Chronic) Hyperlipidemia (Chronic) Assessment: See above diagnoses Plan: The patient was seen and examined at the wound center today and was updated on the plan of care. A subcutaneous debridement was performed today. The patient tolerated the procedure well. The patients wound care will consist of: Application of Aquacel silver with lightly wrapped in Unna boots for compression, do not want further compression due to his history of CHF. Baseline bloodwork reviewed. Vascular studies ordered. Patient educated on the importance of diet on wound healing and instructed to increase protein and vitamin C intake. Patient verbalized understanding. Did discuss with patient that I am very concerned about his swelling and fluid retention. Spoke to his cardiology office and updated them on patient's clinical exam and they recommended increasing Lasix to 40 mg twice a day and rechecking a BMP in 1 week. Discussed with patient that if any symptoms worsen such as shortness of breath, further weight gain, or orthopnea that he should go to the emergency department immediately. Patient does have a follow-up appointment with his cold header operator in 3 weeks. Patient will follow up at wound healing center in one week or sooner if needed. This note was generated with [employer] dictation software. It may contain incorrect words, spelling, and punctuation that were not noted in checking the note before signing. Office Visits / Consults: [id number] OV L4 Est [id number]: [id number] Lucinda subq tissue 20 sq cm/<
== END 2020-03-04 23:59 ==
LOC: WC 13:45
PROVIDERS: PCP Internal Medicine; Referring Provider Internal Medicine; Visit Provider Nurse Practitioner Family
DX: L97.922 Non-pressure chronic ulcer of unspecified part of left lower leg with fat layer exposed (principal); L97.912 Non-pressure chronic ulcer of unspecified part of right lower leg with fat layer exposed; L03.115 Cellulitis of right lower limb; L03.116 Cellulitis of left lower limb; I50.23 Acute on chronic systolic (congestive) heart failure; I25.10 Atherosclerotic heart disease of native coronary artery without angina pectoris; I13.0 Hypertensive heart and chronic kidney disease with heart failure and stage 1 through stage 4 chronic kidney disease, or unspecified chronic kidney disease; Z95.1 Presence of aortocoronary bypass graft; E78.5 Hyperlipidemia, unspecified; I25.5 Ischemic cardiomyopathy; I48.11 Longstanding persistent atrial fibrillation; N18.4 Chronic kidney disease, stage 4 (severe); I25.2 Old myocardial infarction; Z79.01 Long term (current) use of anticoagulants; Z79.899 Other long term (current) drug therapy; Z82.49 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 of ischemic heart disease and other diseases of the circulatory system; Z86.73 Personal history of transient ischemic attack (TIA), and cerebral infarction without residual deficits; Z88.2 Allergy status to sulfonamides; Z88.5 Allergy status to narcotic agent; W55.01XA Bitten by cat, initial encounter
CPT/HCPCS: 11042; 29580; 87070; 87075; 87077; 87186; 87205; 99213; G0463

== ENCOUNTER 2020-02-19 13:01 | Inpatient (IN) | payer MEDICARE, OTHER, SELFPAY ==
[2020-02-19] VITALS (20 sets, daily range): BP systolic 95–128; BP diastolic 63–98; PULSE 97–146; RESP 13–25; TEMP 36.4–36.9; O2SAT 92–97; BMI 37.9; BMI 37.6
--- NOTE | 2020-02-19 14:06 | EKG12_ITS ---
Test Reason : SOB Blood Pressure : / mmHG Vent. Rate : 134 BPM Atrial Rate : 082 BPM P-R Int : 000 ms QRS Dur : 102 ms QT Int : 310 ms P-R-T Axes : 000 001 193 degrees QTc Int : 462 ms Atrial fibrillation with rapid ventricular response Nonspecific ST abnormality Abnormal ECG Confirmed by FOSTER PHAN, MIRANDA ([id number]), photographic editor GUDELIA BAÑUELOS ([id number]) on 02/20/2020 1:05:13 PM Referred By: KATH Confirmed By:MIRANDA HUTCHISON MD
--- NOTE | 2020-02-19 14:09 | ED.DCSUM_ITS ---
History of Present Illness Chief Complaint: Edema Informant: Patient Onset: - - gradually worsening for awhile Context: Gradual Onset Quality: swollen, tight Location: BLE, abd Current Severity: Severe Maximum Severity: Severe Worsened by: unk Relieved by: nothing; taking Lasix but over past couple days, not urinating as a result Narrative: Patient states he has chronic wounds in both of his legs that seem to not be healing as he has been having increasing edema in both of his legs. Over the last 4 or 5 days he has had dyspnea with exertion. He is getting tired and having more difficulty getting around at home because of all the edema. He denies any fevers or chills. 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 He has a history of chronic renal problems, and sees nephrology. He is having trouble getting around now and as a result of all of this, was advised by his cardiology practice to come to the emergency department for further evaluation and treatment. Patient presents during the national coronavirus emergency declaration/pandemic. He denies any known contact with anyone infected with COVID-19. He denies traveling out of the immediate area recently. - Past Medical History (1) Atherosclerosis of [place] coronary artery of [place] heart without angina pectoris Status: Chronic Comment: CABG X 3: VILLEDA-LAD, SVG-LCx, SVG-RPDA 10/10/2003 (2) CKD (chronic kidney disease) stage 4, GFR 15-29 ml/min Status: Chronic (3) CVA (cerebral vascular accident) Status: Chronic Comment: lower left cerebellar hemisphere (4) Essential (primary) hypertension Status: Chronic (5) Hyperlipidemia Status: Chronic (6) Ischemic cardiomyopathy Status: Chronic (7) Longstanding persistent atrial fibrillation Status: Chronic (8) Old inferior wall myocardial infarction Status: Chronic (9) HFrEF (heart failure with reduced ejection fraction) Status: Inactive Past Medical History - Allergies and Home Meds Allergies/Adverse Reactions: Allergies hydrocodone [From Vicodin] Allergy (Severe, Verified 02/15/20 14:31) Rash aspirin Allergy (Intermediate, Verified 02/15/20 14:31) Swelling around eyes pseudoephedrine [From Sudafed] Adverse Reaction (Severe, Verified 02/15/20 14:31) Myalgias & flu like symptoms simvastatin [From Zocor] Adverse Reaction (Severe, Verified 02/15/20 14:31) Myalgias Sulfa (Sulfonamide Antibiotics) Adverse Reaction (Mild, Verified 02/15/20 14:31) Severe Pain in joints Primary Care Physician: Vicki Trejo DO [Primary Care Provider] - Doctors: cardiology - Dr. Greenfield; nephrology - [facility] Surgical History: coronary bypass surgery, herniorrhaphy, - - Fractures Lives: Alone Smoking Status: Former smoker - Family History Maternal Family History: Family History (Last Reviewed 08/27/19 @ 05:[address] Blair Ochoa MD) Father Sudden cardiac Sister Heart disease Sudden cardiac Father Sudden cardiac Family History: Reports: No pertinent history Paternal Family History: Family History (Last Reviewed 08/27/19 @ 05:[address] Blair Ochoa MD) Father Sudden cardiac Sister Heart disease Sudden cardiac Father Sudden cardiac Family History: Reports: No pertinent history Review of Systems General: Reports: Malaise. Denies: Chills, Fever, Sweats Eyes: Denies: Visual changes - bilaterally, Diplopia ENT: Denies: Bilateral ear pain, Rhinorrhea, Sore throat Cardiovascular: Reports: - - Has been checking heart rate and noticed that it is highly variable although he has no specific symptoms associated with it either way. Denies: Chest pain, Palpitations, Heart racing Respiratory: Reports: Dyspnea, Cough, Dyspnea on exertion, Orthopnea. Denies: Sputum Gastrointestinal: Denies: Abdominal pain, Nausea, Vomiting, Diarrhea, Melena, Hematochezia Genitourinary: Denies: Dysuria, Hematuria, Frequency Musculoskeletal: Reports: Extremity Pain - sore in legs/feet. Denies: Myalgias, Neck pain, Back pain, Swelling Skin: Reports: Rash, Wounds Neurological: Denies: Headache, Weakness, Numbness Physical Exam Vital Signs/Narrative: Vital Signs Temp Pulse Resp BP Pulse Ox 02/19/20 13:02 97.9 F 138 H 18 128/78 H 96 Inital Vital Signs reviewed: Yes General: Well nourished, Well developed, Obese, No Acute Distress Head: Normocephalic, Atraumatic Eyes: Perrl, EOMI ENT: Moist mucous membranes, No rhinorrhea Neck: Supple, Nontender, No lymphadenopathy Cardiovascular: No murmurs, Irregular, Tachycardia Respiratory: No distress, CTA bilaterally, Chest nontender Abdomen: Soft, Nontender, Nondistended, Normal bowel sounds Back: Nontender, Normal Inspection. Negative for: CVA tenderness Extremities: Tenderness - Throughout left lower leg erythema, mild. No subcutaneous emphysema palpable., Edema - Very edematous lower extremities, symmetric. Negative for: Calf Tenderness Skin: No rash, No Trauma, Rash - Erythema consistent with cellulitis that is increased in warmth compared with surrounding areas and contralateral side throughout the left lower extremity to the knee., - - Small superficial ulcerated wounds on both shins with no expressible purulent discharge or obvious infection. Neurological: Alert, Oriented x3, Cranial nerves II-XII grossly intact, Normal Strength, Normal Sensation Psychological: Normal affect, Normal Mood Diagnostic/Tx/Re-eval Clinical Impression(s) from Imaging Studies Chest X-Ray 02/19/20 15:22 IMPRESSION: Status post CABG. Cardiomegaly. Mild degree of vascular congestion and CHF. Electronically Signed: Shahab Thrasher, at 15:37 EST , Service support , Laboratory Tests 02/19/20 02/19/20 02/19/20 Range/Units 14:23 14:23 14:23 WBC (4.4-11.0) K/mm3 RBC (4.6-6.2) M/mm3 Hgb (13.0-16.5) g/dL Hct (40-54) % MCV (80-94) fL MCH (27.0-32.0) pg MCHC (32-36) g/dL RDW Std Deviation (35.1-43.9) fl RDW Coeff of Francis (11.6-14.6) % Plt Count (150-450) K/mm3 MPV (6.2-12.0) fl Immature Gran % (Auto) (0.0-0.9) % Neut % (Auto) (47-70) % Lymph % (Auto) (19-41) % [place] % (Auto) (0-10) % Eos % (Auto) (0-5) % Baso % (Auto) (0-1) % Absolute Neuts (auto) (2.0-7.7) X10^3/uL Absolute Lymphs (auto) (0.83-4.51) X10^3/uL Nucleated RBC % (0-5) % PT 16.6 H (11.7-14.9) SECONDS INR 1.4 APTT 35.2 (24.1-36.2) Seconds Sodium 145 (136-145) mmol/L Potassium 3.8 (3.5-5.1) mmol/L Chloride 105 (98-107) mmol/L Carbon Dioxide 32.0 (21.0-32.0) mmol/L Anion Gap 8 (5-15) BUN 34 H (7-18) mg/dL Creatinine 2.67 H (0.70-1.30) mg/dL Estim Creat Clear Calc 20.58 ml/min Est GFR (MDRD) Af Amer 30 L (>60) mL/min Est GFR (MDRD) Non-Af 25 L (>60) mL/min BUN/Creatinine Ratio 12.7 (10-20) RATIO Glucose 117 H (74-106) mg/dL Lactic Acid 2.3 H* (0.4-1.9) mmol/L Calcium 9.2 (8.5-10.1) mg/dL Total Bilirubin 4.80 H (0.20-1.00) mg/dL AST 18 (15-37) U/L ALT 19 (16-61) U/L Alkaline Phosphatase 83 (45-117) U/L Troponin I < 0.015 (<0.045) ng/mL Total Protein 6.9 (6.4-8.2) g/dL Albumin 3.1 L (3.2-5.0) g/dL Globulin 3.8 (2.2-4.2) g/dL Albumin/Globulin Ratio 0.8 L (0.9-2.4) RATIO 11/16/20 Range/Units 14:23 WBC 9.4 (4.4-11.0) K/mm3 RBC 4.19 L (4.6-6.2) M/mm3 Hgb 12.7 L (13.0-16.5) g/dL Hct 42.2 (40-54) % MCV 100.7 H (80-94) fL MCH 30.3 (27.0-32.0) pg MCHC 30.1 L (32-36) g/dL RDW Std Deviation 64.0 H (35.1-43.9) fl RDW Coeff of Francis 17.4 H (11.6-14.6) % Plt Count 151 (150-450) K/mm3 MPV 12.1 H (6.2-12.0) fl Immature Gran % (Auto) 0.300 (0.0-0.9) % Neut % (Auto) 79.8 H (47-70) % Lymph % (Auto) 8.6 L (19-41) % [place] % (Auto) 10.9 H (0-10) % Eos % (Auto) 0.2 (0-5) % Baso % (Auto) 0.2 (0-1) % Absolute Neuts (auto) 7.5 (2.0-7.7) X10^3/uL Absolute Lymphs (auto) 0.81 L (0.83-4.51) X10^3/uL Nucleated RBC % 0 (0-5) % PT (11.7-14.9) SECONDS INR APTT (24.1-36.2) Seconds Sodium (136-145) mmol/L Potassium (3.5-5.1) mmol/L Chloride (98-107) mmol/L Carbon Dioxide (21.0-32.0) mmol/L Anion Gap (5-15) BUN (7-18) mg/dL Creatinine (0.70-1.30) mg/dL Estim Creat Clear Calc ml/min Est GFR (MDRD) Af Amer (>60) mL/min Est GFR (MDRD) Non-Af (>60) mL/min BUN/Creatinine Ratio (10-20) RATIO Glucose (74-106) mg/dL Lactic Acid (0.4-1.9) mmol/L Calcium (8.5-10.1) mg/dL Total Bilirubin (0.20-1.00) mg/dL AST (15-37) U/L ALT (16-61) U/L Alkaline Phosphatase (45-117) U/L Troponin I (<0.045) ng/mL Total Protein (6.4-8.2) g/dL Albumin (3.2-5.0) g/dL Globulin (2.2-4.2) g/dL Albumin/Globulin Ratio (0.9-2.4) RATIO - Rhythm Strip Rhythm Strip: A-fib Rate: 130 Ectopy: None - EKG Initial EKG Interpretation: No Acute Injury Pattern, Atrial Fibrillation, S-T Depression - L aterally, 0.5-[address] elevation, - - Incomplete left bundle branch block Prior: Unchanged - Medical Decision Making Patient was given vancomycin empirically for what appears to be left lower extremity cellulitis. Blood cultures were obtained. He has no leukocytosis. His lactate is slightly elevated which is nonspecific. Chest x-ray confirms an exacerbation of CHF which is likely partially responsible for his symptoms. He is not septic clinically, but too weak to get around, most likely due to all of the edema. He lives alone. Plan is for admission at this time. ED Disposition - Plan for ED Patient: Disposition: Acute Care Hospital [facility] Diagnosis: Cellulitis of left lower extremity, Non-healing wound of lower extremity, Anasarca, CRF (chronic renal failure), Atrial fibrillation with RVR, Acute on chronic systolic (congestive) heart failure Referrals: Vicki Trejo DO [Primary Care Provider] -
[2020-02-19 14:54] LABS: Absolute Lymphocyte Count 0.81 X10^3/uL (0.83-4.51); Absolute Neutrophil Count 7.5 X10^3/uL (2.0-7.7); Basophil# 0.02 X10^3/uL; Basophil% 0.2 % (0-1); Eosinophil# 0.02 X10^3/uL; Eosinophils% 0.2 % (0-5); Hematocrit 42.2 % (40-54); Hemoglobin 12.7 g/dL (13.0-16.5); Lymphocyte # 0.81 X10^3/ul (4.0); Lymphocyte % 8.6 % (19-41); Mean Corp Hgb Conc 30.1 g/dL (32-36); Mean Corpuscular Hgb 30.3 pg (27.0-32.0); Mean Corpuscular Volume 100.7 fL (80-94); Mean Platelet Vol. 12.1 fl (6.2-12.0); Monocyte# 1.03 X10^3/uL; Monocyte% 10.9 % (0-10); NRBC Flagged by Analyzer 0 % (0-5); Neutrophil # 7.52 X10^3/uL (2.7-7.7); Neutrophil % 79.8 % (47-70); Platelet Count 151 K/mm3 (150-450); RBC Distribution Width CV 17.4 % (11.6-14.6); Red Blood Count 4.19 M/mm3 (4.6-6.2); White Blood Count 9.4 K/mm3 (4.4-11.0)
[2020-02-19 15:00] LABS: International Normalized Ratio 1.4; Prothrombin Time (Protime)PT. 16.6 SECONDS (11.7-14.9)
[2020-02-19 15:01] LABS: Partial Thromboplast Time 35.2 Seconds (24.1-36.2)
[2020-02-19 15:14] LABS: ALB/GLOB Ratio 0.8 RATIO (0.9-2.4); AST(SGOT) 18 U/L (15-37); Alanine Aminotransfer ALT/SGPT 19 U/L (16-61); Albumin, Serum 3.1 g/dL (3.2-5.0); Alkaline Phosphatase 83 U/L (45-117); Anion Gap 8 (5-15); BUN 34 mg/dL (7-18); BUN/Creat Ratio 12.7 RATIO (10-20); Calcium,Total 9.2 mg/dL (8.5-10.1); Chloride 105 mmol/L (98-107); Creatinine, Serum 2.67 mg/dL (0.70-1.30); EST Glomerular Filtration Rate 25 mL/min (>60); Est Glom Filt Rate - Afr Amer 30 mL/min (>60); Estimated Creatinine Clearance 20.58 ml/min; Globulin 3.8 g/dL (2.2-4.2); Glucose 117 mg/dL (74-106); Potassium 3.8 mmol/L (3.5-5.1); Protein, Total 6.9 g/dL (6.4-8.2); Sodium Level 145 mmol/L (136-145)
[2020-02-19 15:22] LABS: Lactic Acid 2.3 mmol/L (0.4-1.9)
--- NOTE | 2020-02-19 15:22 | RAD_ITS ---
STUDY: X-RAY CHEST REASON FOR EXAM: Male, 79 years old. BILATERAL LEG SWELLING, INTERMITTENT AFIB. TECHNIQUE: Single AP portable view of the chest. COMPARISON: Comparison is made with prior study dated 08/27/2019. FINDINGS: EKG electrodes are seen. Mild degree of vascular congestion and CHF. Blunting of both costophrenic angles and stable pleural thickening along the lateral aspect of the right hemithorax. Sternal cerclage wires and vascular clips are present from a prior sternotomy and coronary artery bypass graft procedure (CABG). Mild cardiomegaly. Normal mediastinum and kath. Normal visualized pulmonary arteries. Normal visualized aortic arch and descending thoracic aorta. There are diffuse degenerative changes of the visualized thoracic spine. Normal visualized ribs, clavicles, and shoulders. There is no demonstrated abnormality of the visualized soft tissue structures of the upper abdomen. RAD/Chest 1 View (Portable) IMPRESSION: Status post CABG. Cardiomegaly. Mild degree of vascular congestion and CHF. Electronically Signed: Shahab Thrasher, at 15:37 EST , Service support ,
--- NOTE | 2020-02-19 16:13 | NURSING ---
PCU EBERAM ANASARCA, CHF, CRF, CELLULITIS LLE
--- NOTE | 2020-02-19 16:32 | HP.PCM_ITS ---
History of Present Illness Date of Admission: 02/19/20 Chief Complaint: lower extremity swelling, abdominal distension The patient is a 79 year old M with an extensive past medical history as outlined which includes heart failure and chronic renal failure, CAD s/p CABG, hypertension and type 2 diabetes mellitus as well as chronic A. fib. He was admitted through the ED on 02/19/2020 with a complaint of lower extremity swelling as well as abdominal distention which were gradually worsening. He also had associated orthopnea but does use oxygen at night. Patient also said that his heart rate has been poorly controlled and at home sometimes went up in the 150s and 160s. Symptoms were worsening so he decided to come into the ED. He denied any fever, chills, palpitations or dizziness, nausea, shortness of breath, chest pain, abdominal pain, diarrhea vomiting. Review of symptoms otherwise negative. He however also complained of redness of his left lower extremity. He has been visiting the wound clinic for his lower extremity edema and some superficial ulcerations on his lower extremities and says his wounds were bandaged at his last visit to the wound clinic but he took out the bandages because he felt they were too tight a few days ago. Labs and vitals reviewed. In the ED, vitals showed temperature of 91.5 Fahrenheit with blood pressure 102/70, pulse rate of 139 and respiratory rate of 13. Was saturating at 96% on 2 L of oxygen. Chemistry showed sodium of 145 with potassium of 3.8, lactic acid of 2.3 and creatinine of 2.67 total bilirubin of 4.8. Troponin was negative. CBC showed hemoglobin of 12.7 and WBC of 9.4 as well as platelets of 151. EKG showed tach with RVR and probable evidence of subendocardial injury. He was started on IV vancomycin in the ED for cellulitis of the left lower extremity and is being admitted to be managed for acute on chronic exacerbation of heart failure with preserved ejection fraction as well as A. fib with RVR and lactic acidosis which is likely due to heart failure exacerbation. [] Past Medical History Past Medical History (Chronic Problems): Chronic Problems (Last Reviewed 08/27/19 @ 05:[address] Blair Ochoa MD) CKD (chronic kidney disease) stage 4, GFR 15-29 ml/min (Chronic) CRF (chronic renal failure) (Chronic) Paroxysmal atrial fibrillation (Chronic) DCCV on 02/27/2019; NSTEMI (non-ST elevated myocardial infarction) (Chronic) Atherosclerosis of [place] coronary artery of [place] heart without angina pectoris (Chronic) CABG X 3: VILLEDA-LAD, SVG-LCx, SVG-RPDA 10/10/2003 H/O coronary artery bypass surgery (Chronic 10/10/03) CABG X 3: VILLEDA-LAD, SVG-LCx, SVG-RPDA 10/10/2003 Old inferior wall myocardial infarction (Chronic) Ischemic cardiomyopathy (Chronic) Longstanding persistent atrial fibrillation (Chronic) Acute on chronic systolic (congestive) heart failure (Chronic) CVA (cerebral vascular accident) (Chronic) lower left cerebellar hemisphere Essential (primary) hypertension (Chronic) Hyperlipidemia (Chronic) Medical History: Medical History (Last Reviewed 08/27/19 @ 05:[address] Blair Ochoa MD) Atherosclerosis of [place] coronary artery of [place] heart without angina pectoris (Chronic) I25.10 CABG X 3: VILLEDA-LAD, SVG-LCx, SVG-RPDA 10/10/2003 Old inferior wall myocardial infarction (Chronic) I25.2 Ischemic cardiomyopathy (Chronic) I25.5 Longstanding persistent atrial fibrillation (Chronic) I48.11 CVA (cerebral vascular accident) (Chronic) I63.9 lower left cerebellar hemisphere Essential (primary) hypertension (Chronic) I10 Hyperlipidemia (Chronic) E78.5 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, N13.8 Chronic renal failure, stage 3 (moderate) N18.3 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, E66.9 FH: sudden cardiac (SCD) Z82.41 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 of premature coronary heart disease Z82.49 Female < 65 & Male < 55 History of stroke Z86.73 AUDRA (obstructive sleep apnea) G47.33 Obesity E66.9 Venous insufficiency Noncompliance (Inactive) Z91.19 Allergies hydrocodone [From Vicodin] Allergy (Severe, Verified 02/15/20 14:31) Rash aspirin Allergy (Intermediate, Verified 02/15/20 14:31) Swelling around eyes pseudoephedrine [From Sudafed] Adverse Reaction (Severe, Verified 02/15/20 14:31) Myalgias & flu like symptoms simvastatin [From Zocor] Adverse Reaction (Severe, Verified 11/12/20 14:31) Myalgias Sulfa (Sulfonamide Antibiotics) Adverse Reaction (Mild, Verified 02/15/20 14:31) Severe Pain in joints Home Medications: Ambulatory Orders Medication Instructions Recorded Finasteride [Proscar] 5 mg PO QHS 04/18/15 colchicine 0.6 mg tablet 0.6 mg PO QODAY tab 01/13/18 apixaban 2.5 mg tablet 2.5 mg PO BID #180 tab 01/31/19 Allopurinol 300 mg PO DAILY 02/17/19 Doxazosin Mesylate [Cardura Xl] 4 mg PO QHS 02/17/19 Ergocalciferol [Vitamin D] 50,000 unit PO QMONTH 02/17/19 lisinopril 2.5 mg tablet 2.5 mg PO DAILY #90 tab 04/10/19 Potassium Chloride [K-Dur] 20 meq PO BID 08/27/19 furosemide 40 mg tablet 40 mg PO BID tab 02/15/20 Amiodarone HCl [Cordarone] 200 mg PO DAILY 02/19/20 Bethanechol Chloride 25 mg PO BID 02/19/20 Calcitriol 0.25 mcg PO DINNER 02/19/20 Calcitriol [Rocaltrol] 0.5 mcg PO BREAKFAST 02/19/20 Levothyroxine Sodium [Synthroid] 25 mcg PO DAILY 02/19/20 Metoprolol Tartrate 50 mg PO DAILY 02/19/20 Surgical History: Surgical History (Last Reviewed 08/27/19 @ 05:[address] Blair Ochoa MD) H/O coronary artery bypass surgery (Chronic) Onset Date: 10/10/03 Z95.1 CABG X 3: VILLEDA-LAD, SVG-LCx, SVG-RPDA 10/10/2003 History of cardioversion Onset Date: 2015 Z98.890 Surgical History: coronary bypass surgery, herniorrhaphy, - - Fractures Psychiatric History: No pertinent psych hx Lives: Alone Smoking Status: Former smoker Tobacco Use: Cigarettes - *Family History Maternal Family History: Family History (Last Reviewed 08/27/19 @ 05:[address] Blair Ochoa MD) Father Sudden cardiac Sister Heart disease Sudden cardiac Father Sudden cardiac History Items: No pertinent history Paternal Family History: Family History (Last Reviewed 08/27/19 @ 05:[address] Blair Ochoa MD) Father Sudden cardiac Sister Heart disease Sudden cardiac Father Sudden cardiac History Items: No pertinent history Review of Systems Constitutional: Denies: Chills, Fever, Malaise, Weakness, Weight Change Eyes: Denies: Blurred vision HEENT: Denies: Head Aches, Sinus Congestion, Sinus Drainage Cardiovascular: Reports: Edema, Palpitations. Denies: Chest Pain, Chest Pressure, Chest Tightness, Heaviness, Light Headedness Respiratory: Denies: Shortness of Breath, Shortness of breath at rest, Shortness of breath upon exertion Gastrointestinal: Denies: Abdominal Pain, Nausea, Vomiting Genitourinary: Denies: Dysuria Musculoskeletal: Denies: Joint Pain, Joint Tenderness Skin: Reports: Wounds - on LEs. Denies: Rash Neurological: Denies: Numbness, Tingling, Focal weakness Psychiatric: Denies: Anxiety, Depression, Homicidal Ideations, Suicidal Ideations Hematologic/ Lymphatic: Denies: Easy Bruising, Easy Bleeding VTE Information - Inpt Only VTE Present on Admission: No VTE Pharm Prophylaxis ordered?: Yes Patient Problems: Active and Suspected Problems (Last Reviewed 08/27/19 @ 05:[address] Blair Ochoa MD) Cellulitis of left lower extremity (Acute) Non-healing wound of lower extremity (Acute) Anasarca (Acute) Atrial fibrillation with RVR (Acute) - Physical Exam Vitals/I&O's: Vital Signs Temp Pulse Resp BP Pulse Ox 98.4 F 146 H 20 H 102/70 96 02/19/20 16:21 02/19/20 16:21 02/19/20 16:21 02/19/20 16:21 02/19/20 16:21 Oxygen Delivery Method Room Air Weight: 234 lb 12.677 oz Body Mass Index (BMI) 37.9 Finger Stick Blood Glucose 143 General: Alert, Oriented x3, Cooperative, No apparent distress, - HEENT: Atraumatic, PERRLA, EOMI, Normocephalic, - - sclera jaundiced. Oral: Dry Mucosa Neck: Supple, No JVD, Negative Carotid Bruits Lungs: - - diminished breath sounds bibasally, no wheezes or crackles. Cardiovascular: Irregular Rate - afib with RVR, Tachycardic Abdomen: - - abdomen distended, positive fluid thrill. No tendnerness or organomegaly Extremities: No clubbing, No cyanosis, - - bilateral LE 3+ pitting edema, with superficial ulceration on the coronel of both legs. LLE is warm, erythematous, mildly tender to touch Musculoskeletal: No Tenderness to Palpation of Joints or Extremities Lymphatic: No Cervical, Supraclavicular, or Inguinal Adenopathy Neurological: Cranial nerves II-XII grossly intact, Neuro grossly intact, Motor Exam 5/5 strength throughout Psych/Mental Status: Normal Affect, Appropriate, Alert and oriented to time, place, person, mood and affect Laboratory Results 02/19/20 14:23: WBC 9.4, RBC 4.19 L, Hgb 12.7 L, Hct 42.2, MCV 100.7 H, MCH 30.3, MCHC 30.1 L, RDW Std Deviation 64.0 H, RDW Coeff of Francis 17.4 H, Plt Count 151, MPV 12.1 H, Immature Gran % (Auto) 0.300, Neut % (Auto) 79.8 H, Lymph % (Auto) 8.6 L, [place] % (Auto) 10.9 H, Eos % (Auto) 0.2, Baso % (Auto) 0.2, Absolute Neuts (auto) 7.5, Absolute Lymphs (auto) 0.81 L, Nucleated RBC % 0 02/19/20 14:23: PT 16.6 H, INR 1.4, APTT 35.2 02/19/20 14:23: Sodium 145, Potassium 3.8, Chloride 105, Carbon Dioxide 32.0, Anion Gap 8, BUN 34 H, Creatinine 2.67 H, Estim Creat Clear Calc 20.58, Est GFR (MDRD) Af Amer 30 L, Est GFR (MDRD) Non-Af 25 L, BUN/Creatinine Ratio 12.7, Glucose 117 H, Calcium 9.2, Total Bilirubin 4.80 H, AST 18, ALT 19, Alkaline Phosphatase 83, Troponin I < 0.015, Total Protein 6.9, Albumin 3.1 L, Globulin 3.8, Albumin/Globulin Ratio 0.8 L 02/19/20 14:23: Lactic Acid 2.3 H* Diagnostic Data Chest X-Ray 02/19/20 15:22 IMPRESSION: Status post CABG. Cardiomegaly. Mild degree of vascular congestion and CHF. Electronically Signed: Shahab Thrasher, at 15:37 EST , Service support , Current Medications Vancomycin HCl 1,500 mg/ (Sodium Chloride) 530 mls @ 250 mls/hr IV X1 ONE Stop: 02/19/20 16:37 Last Admin: 02/19/20 15:09 Dose: 250 mls/hr Documented by: Assessment/Plan All Active Problems (Last Reviewed 08/27/19 @ 05:[address] Blair Ochoa MD) Cellulitis of both lower extremities (Acute) Nonhealing ulcer of right lower extremity with fat layer exposed (Acute) Nonhealing ulcer of left lower extremity with fat layer exposed (Acute) Cellulitis of left lower extremity (Acute) Non-healing wound of lower extremity (Acute) Anasarca (Acute) Atrial fibrillation with RVR (Acute) 79 y/o male with no admitted with a complaint of palpitations and lower extremity swelling as well as abdominal distention. # Acute on chronic heart failure with preserved EF * admit to PCU with telemetry * previous 2D echo showed EF of 65%, with stage 2 diastolic dysfunction. * start lasix drip at 10mg/hr * insert Garcia catheter to monitor urine output * fluid restriction to 1500cc daily. * monitor intake and output * get 2D echo * consult cardiology- Dr Greenfield informed * # Afib with RVR * States his heart rate has been difficult to control. His heart rate was fluctuating between the 120s in the 150s at time of review in the ED. * Give IV Cardizem bolus x25 mg and give IV cardizem drip 10mg/hr, per discussion with Dr Greenfield * continue eliquis. * 2D echo ordered as above * #Hyperbilirubinemia * Bilirubin is 4.8. This is likely due to hepatic congestion from fluid overload due to acute on chronic heart failure. * Will trend bilirubin is expected to improve with diuresis. * get liver USG as well * lactic acidosis: * Lactic acid is 2.3. * This is likely due to heart failure. * No evidence of sepsis. * Trend lactic acid * #LLE cellulitis: will start on IV cefazolin. # CKD 4: Cr is 2.67, which is around his baseline. eGFR is 25. Monitor kidney function. If kidney function worsens, consult nephrology. #Benign Essential hypertension: On lisinopril and metoprolol. #Type 2 diabetes mellitus * Insulin sliding scale. Checks AC at bedtime. * #AUDRA: stable. States he wears oxygen at night. #Hyperlipidemia: Not on statin and of allergies. #CAD s/p CABG and ischemic cardiomyopathy * On metoprolol and lisinopril. * DVT prophylaxis; on eliquis Code status: full code * patient counseled extensively about different types of CODE STATUS including full code, DNR CCA and DNR CCA. Patient elects to be full code. * Total [id number] time 16 minutes. Inpatient E&M: 99777 Init Hosp L3 Procedures: 92371 Advncd Care Plan 30 Min
[2020-02-19] MEDS: dilTIAZem 25 MG/5 ML Vial IV BOLUS (18:19)
[2020-02-19 18:40] LABS: Bacteria 0 SEEN /hpf (None Seen); Mucous, Urine 0 SEEN /hpf (<or=2+); Red Blood Cells-Urine 0 SEEN /hpf (0-5); White Blood Cells 0 SEEN /hpf (0-5)
[2020-02-19 18:45] LABS: Reflex Lactate? Y
[2020-02-19 18:52] LABS: Color, Urine Yellow (Yellow); Glucose, Dipstick Normal (Normal); Ketone-Dipstick Negative (Negative); Leukocyte Esterase-Dipstick Negative /ul (Negative); Nitrite-Dipstick Negative (Negative); Occult Blood-Urine 50 /ul (Negative); Protein-Dipstick 30 mg/dl (Negative); Specific Gravity, Urine 1.015 (1.002-1.030); Urine Bilirubin Dipstick Negative (Negative); Urine Clarity Clear (Clear); Urine Urobilinogen 1 mg/dl (Normal)
[2020-02-19] MEDS: Furosemide 500 MG in Empty Viaflex 50 mL 1 EACH CONT INF (19:05)
[2020-02-19 19:11] LABS: Amorphous Sediment 1+; Squamous Epithelial Cells - UA 0-5 SEEN /hpf (0-5)
[2020-02-19 19:13] LABS: BNP,B-Type NATRIURETIC PEPTIDE 1940.4 pg/mL (0-100)
[2020-02-19 21:19] LABS: Lactic Acid 2.5 mmol/L (0.4-1.9)
[2020-02-19] MEDS: Doxazosin 1 MG Tablet 2 MG PO (21:43)
[2020-02-19] MEDS: APIXABAN 2.5 MG TABLET PO (21:43)
[2020-02-19] MEDS: BETHANECHOL CHLORIDE 25 MG TABLET PO (21:43)
[2020-02-19] MEDS: Cefazolin 1 GM/50 ML BAG IV (21:43)
[2020-02-19] MEDS: Finasteride 5 MG Tablet PO (21:43)
[2020-02-19 23:02] LABS: Magnesium 2.2 mg/dL (1.6-2.6)
[2020-02-20] VITALS (27 sets, daily range): BP systolic 91–118; BP diastolic 53–88; PULSE 78–105; RESP 12–20; TEMP 36.3–36.7; O2SAT 92–100
[2020-02-20 05:32] LABS: Absolute Lymphocyte Count 0.76 X10^3/uL (0.83-4.51); Absolute Neutrophil Count 5.2 X10^3/uL (2.0-7.7); Basophil# 0.03 X10^3/uL; Basophil% 0.4 % (0-1); Eosinophils% 1.4 % (0-5); Hematocrit 34.5 % (40-54); Hemoglobin 10.7 g/dL (13.0-16.5); Lymphocyte # 0.76 X10^3/ul (4.0); Lymphocyte % 10.8 % (19-41); Mean Corpuscular Hgb 31.1 pg (27.0-32.0); Mean Corpuscular Volume 100.3 fL (80-94); Mean Platelet Vol. 11.7 fl (6.2-12.0); Monocyte% 12.8 % (0-10); NRBC Flagged by Analyzer 0 % (0-5); Neutrophil # 5.21 X10^3/uL (2.7-7.7); Platelet Count 125 K/mm3 (150-450); RBC Distribution Width CV 17.2 % (11.6-14.6); RBC Distribution Width SD 64.4 fl (35.1-43.9); Red Blood Count 3.44 M/mm3 (4.6-6.2)
--- NOTE | 2020-02-20 05:55 | ECHOCS_ITS ---
Reason For Study: CHF Procedure This was a 2D Doppler, Color Flow transthoracic echocardiogram. The study was technically difficult. Contrast injection was performed. Exam performed portable in patient room. Left Ventricle Normal LV size. The estimated ejection fraction is 35 %. Diastolic function is indeterminate. Mid- anteroseptal : Severely Hypokinetic. There is moderate global hypokinesis of the left ventricle. Right Ventricle Normal RV size. Mild global right ventricular systolic dysfunction. Atria The left atrium is moderately enlarged. The right atrium is mildly enlarged. Mitral Valve Bileaflet diffuse mitral valve thickening. Mild-Moderate (1-2+) eccentric mitral valve insufficiency. Tricuspid Valve Normal tricuspid valve. Mild (1+) tricuspid valve insufficiency. Pulmonary artery systolic pressure is 50 mmHg. Moderate pulmonary hypertension. Aortic Valve Trisinus/trileaflet aortic valve. Pulmonic Valve The pulmonic valve is not well visualized. Great Vessels Normal aortic root. The pulmonary artery is normal size. The inferior vena cava is dilated. Pericardium/Pleural No pericardial effusion. Medication Diluted definity 4.0ml given slow IV push to enhance endocardial definition. MMode/2D Measurements & Calculations LVIDd: 5.6 cm IVSd: 0.99 cm LVOT diam: 2.0 cm LVIDs: 5.1 cm LVPWd: 0.99 cm RVDd: 4.1 cm FS: 9.3 % LVOT area: 3.1 cm2 Ao root diam: 2.8 cm LAV(MOD-bp): 107.0 ml LVAd ap4: 35.2 cm2 LAV(MOD-bp) Indexed: 50.1 ml/m2 EDV(MOD-sp4): 124.8 ml LAV(MOD-sp2): 101.4 ml EDV(sp4-el): 129.5 ml LAV(MOD-sp4): 101.1 ml LVAs ap4: 25.2 cm2 ESV(MOD-sp4): 75.4 ml ESV(sp4-el): 77.5 ml EF(MOD-sp4): 39.6 % EF(sp4-el): 40.2 % SV(MOD-sp4): 49.4 ml SV(sp4-el): 52.0 ml LA A4 area: 30.6 cm2 LA dimension(2D): 5.0 cm RA A4 area: 22.2 cm2 Time Measurements MV dec time: 0.16 sec Doppler Measurements & Calculations MV E max dior: 136.3 cm/sec MV V2 max: 128.1 cm/sec Ao V2 max: 128.9 cm/sec MV max P.6 mmHg Ao max P.7 mmHg MV V2 mean: 86.0 cm/sec Ao V2 mean: 97.5 cm/sec MV mean P.3 mmHg Ao mean P.1 mmHg MV V2 VTI: 23.0 cm Ao V2 VTI: 25.6 cm MVA(VTI): 1.9 cm2 YARELIS(I,D): 1.7 cm2 YARELIS(V,D): 1.9 cm2 LV V1 max: 79.4 cm/sec SV(LVOT): 44.4 ml TR max dior: 340.0 cm/sec LV V1 max P.6 mmHg TR max P.2 mmHg LV V1 mean P.5 mmHg LV V1 mean: 57.2 cm/sec LV V1 VTI: 14.1 cm Interpretation Summary Normal LV size. The estimated ejection fraction is 35 %. Diastolic function is indeterminate. Mild (1+) tricuspid valve insufficiency. Mild-Moderate (1-2+) eccentric mitral valve insufficiency. Pulmonary artery systolic pressure is 50 mmHg. Moderate pulmonary hypertension. Compared to previous study, the left ventricular systolic function has worsened.. Ordering Physician: Pilar Reid Referring Physician: FIOR STYLES Performed By: Yissel Curtis, KRISTY, RVT
[2020-02-20] MEDS: Levothyroxine 25 MCG TABLET PO (06:11)
[2020-02-20 06:12] LABS: ALB/GLOB Ratio 0.7 RATIO (0.9-2.4); AST(SGOT) 17 U/L (15-37); Alanine Aminotransfer ALT/SGPT 14 U/L (16-61); Albumin, Serum 2.3 g/dL (3.2-5.0); Alkaline Phosphatase 67 U/L (45-117); Anion Gap 6 (5-15); BUN 32 mg/dL (7-18); BUN/Creat Ratio 14.2 RATIO (10-20); Calcium,Total 7.8 mg/dL (8.5-10.1); Chloride 106 mmol/L (98-107); Creatinine, Serum 2.25 mg/dL (0.70-1.30); EST Glomerular Filtration Rate 30 mL/min (>60); Est Glom Filt Rate - Afr Amer 36 mL/min (>60); Estimated Creatinine Clearance 24.42 ml/min; Globulin 3.2 g/dL (2.2-4.2); Glucose 99 mg/dL (74-106); Potassium 2.9 mmol/L (3.5-5.1); Protein, Total 5.5 g/dL (6.4-8.2); Sodium Level 142 mmol/L (136-145)
--- NOTE | 2020-02-20 07:32 | CON.PCM_ITS ---
Reason for Consult Date of Consultation: 02/20/20 Reason for Consultation: Shortness of breath and pedal edema History of Present Illness: The patient is a 79 year old M with a history of coronary artery disease status post coronary bypass surgery in 2003. He had a left internal mammary artery to the left anterior descending artery, saphenous vein graft to circumflex artery, saphenous vein graft to posterior descending artery. He also has a history of atrial fibrillation status post cardioversion in 2016 as well as cardioversion in 2019. He also has a history of ischemic cardiomyopathy, pulmonary hypertension, hyperlipidemia and congestive heart failure. He presents this t todd with pedal edema as well as shortness of breath with orthopnea. His last admission to the hospital was in August 2019 when he was evaluated for atrial fibrillation with rapid ventricular response rate and his medications adjusted. It appears that he has been going downhill since then but for reasons that are not entirely clear he has not presented back to the hospital until yesterday when he presented and was noted to have significant bilateral pedal edema, atrial fibrillation with rapid ventricular response rate. I was consulted and instructions were given to place the patient on a Cardizem drip as well as a Lasix drip with a bolus. He appears to be doing better this morning. He denies any chest pain or paroxysmal nocturnal dyspnea. [] Past Medical History Allergies/Adverse Reactions: Allergies hydrocodone [From Vicodin] Allergy (Severe, Verified 02/15/20 14:31) Rash aspirin Allergy (Intermediate, Verified 02/15/20 14:31) Swelling around eyes pseudoephedrine [From Sudafed] Adverse Reaction (Severe, Verified 02/15/20 14:31) Myalgias & flu like symptoms simvastatin [From Zocor] Adverse Reaction (Severe, Verified 02/15/20 14:31) Myalgias Sulfa (Sulfonamide Antibiotics) Adverse Reaction (Mild, Verified 02/15/20 14:31) Severe Pain in joints Home Medications: Ambulatory Orders Medication Instructions Recorded Finasteride [Proscar] 5 mg PO QHS 04/18/15 colchicine 0.6 mg tablet 0.6 mg PO QODAY tab 01/13/18 apixaban 2.5 mg tablet 2.5 mg PO BID #180 tab 01/31/19 Allopurinol 300 mg PO DAILY 02/17/19 Doxazosin Mesylate [Cardura Xl] 4 mg PO QHS 02/17/19 Ergocalciferol [Vitamin D] 50,000 unit PO QMONTH 02/17/19 lisinopril 2.5 mg tablet 2.5 mg PO DAILY #90 tab 04/10/19 Potassium Chloride [K-Dur] 20 meq PO BID 08/27/19 furosemide 40 mg tablet 40 mg PO BID tab 02/15/20 Amiodarone HCl [Cordarone] 200 mg PO DAILY 02/19/20 Bethanechol Chloride 25 mg PO BID 02/19/20 Calcitriol 0.25 mcg PO DINNER 02/19/20 Calcitriol [Rocaltrol] 0.5 mcg PO BREAKFAST 02/19/20 Levothyroxine Sodium [Synthroid] 25 mcg PO DAILY 02/19/20 Metoprolol Tartrate 50 mg PO DAILY 02/19/20 Past Medical History (Chronic Problems): Chronic Problems (Last Reviewed 08/27/19 @ 05:[address] Blair Ochoa MD) CKD (chronic kidney disease) stage 4, GFR 15-29 ml/min (Chronic) CRF (chronic renal failure) (Chronic) Paroxysmal atrial fibrillation (Chronic) DCCV on 02/27/2019; NSTEMI (non-ST elevated myocardial infarction) (Chronic) Atherosclerosis of [place] coronary artery of [place]o heart without angina pectoris (Chronic) CABG X 3: VILLEDA-LAD, SVG-LCx, SVG-RPDA 10/10/2003 H/O coronary artery bypass surgery (Chronic 10/10/03) CABG X 3: VILLEDA-LAD, SVG-LCx, SVG-RPDA 10/10/2003 Old inferior wall myocardial infarction (Chronic) Ischemic cardiomyopathy (Chronic) Longstanding persistent atrial fibrillation (Chronic) Acute on chronic systolic (congestive) heart failure (Chronic) 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 Blair Ochoa MD) Father Sudden cardiac Sister Heart disease Sudden cardiac Father Sudden cardiac History Items: No pertinent history Paternal Family History: Family History (Last Reviewed 08/27/19 @ 05:[address] Blair Ochoa MD) Father Sudden cardiac Sister Heart disease Sudden cardiac Father Sudden cardiac History Items: No pertinent history Lives: Alone Smoking Status: Former smoker Tobacco Use: Cigarettes Alcohol: None Drugs: None Review of Systems - Review of Systems General: Reports: Fatigue. Denies: Fever, Night Sweats HEENT: Denies: Vision Change Cardiovascular: Reports: Shortness of Breath, Shortness of Breath at Rest, Shortness of Breath with Exertion, Orthopnea, Peripheral Edema, Palpitations. Denies: Chest Discomfort, PND, Lightheadedness, Dizziness, Near Syncope, Syncope Respiratory: Denies: Cough, Sputum Production, Hemoptysis Gastrointestinal: Denies: Hematemesis, Hematochezia, Melena Genitourinary: Denies: Dysuria, Hematuria Muscoloskeletal: Denies: Myalgias Skin: Denies: Rash Neurological: Reports: Weakness Psychiatric: Denies: Anxiety Endocrine: Denies: Excessive Sweating Hematologic/ Lymphatic: Denies: Anemia Subjectve: Pleasant gentleman in no distress Objective: Vital Signs Temp Pulse Resp BP Pulse Ox 98.1 F 92 15 108/88 H 99 02/20/20 05:00 02/20/20 07:09 02/20/20 07:00 02/20/20 07:00 02/20/20 07:00 Oxygen Flow Rate (L/min) 2 Oxygen Delivery Method Nasal Cannula Weight: 233 lb 7.512 oz Body Mass Index (BMI) 37.6 Finger Stick Blood Glucose 143 Intake and Output for Last 24 Hours 02/18/20 02/19/20 02/20/20 23:59 23:59 23:59 Intake Total 842.88 / 847.88 220 / 220 Output Total 450 / 450 Balance 392.88 / 397.88 220 / 220 General: Awake, Alert, Oriented x 3 HEENT: PERRL, EOMI, Sclera Non Icteric Neck: Supple, Good ROM, No Lymph Node Enlargement Lungs: Diminished Rolo Bases Cardiovascular: Irregular Rhythm, Normal S1, Normal S2, No Murmurs, No Rubs, No Gallops Vascular: No Carotid Bruits, Normal Femoral Pulses Abdomen: Bowel Sounds Present, Soft, Non Tender, No HSM, No Organomegaly Extremities: No Cyanosis, No Clubbing, Bilateral Edema +3 Musculoskeletal: No Erythema Skin: No Rashes Neurological: No Focal Motor or Sensory Deficit 02/19/20 14:23: WBC 9.4, RBC 4.19 L, Hgb 12.7 L, Hct 42.2, MCV 100.7 H, MCH 30.3, MCHC 30.1 L, Plt Count 151, MPV 12.1 H, Immature Gran % (Auto) 0.300, Neut % (Auto) 79.8 H, Lymph % (Auto) 8.6 L, [place] % (Auto) 10.9 H, Eos % (Auto) 0.2, Baso % (Auto) 0.2, Absolute Neuts (auto) 7.5, Nucleated RBC % 0 02/19/20 14:23: PT 16.6 H, INR 1.4, APTT 35.2 02/19/20 14:23: Sodium 145, Potassium 3.8, Chloride 105, Carbon Dioxide 32.0, Anion Gap 8, BUN 34 H, Creatinine 2.67 H, Est GFR (MDRD) Af Amer 30 L, Est GFR (MDRD) Non-Af 25 L, BUN/Creatinine Ratio 12.7, Glucose 117 H, Calcium 9.2, Total Bilirubin 4.80 H, Troponin I < 0.015 02/19/20 14:23: Lactic Acid 2.3 H* 02/19/20 14:23: B-Natriuretic Peptide 1940.4 H 02/19/20 18:36: Urine Color Yellow, Urine Clarity Clear, Urine pH 5.0, Ur Specific [place] 1.015, Urine Protein 30 H, Urine Glucose (UA) Normal, Urine Ketones Negative, Urine Occult Blood 50 H, Urine Nitrite Negative, Urine Bilirubin Negative, Urine Urobilinogen 1 H, Ur Leukocyte Esterase Negative, Urine RBC 0 SEEN, Urine WBC 0 SEEN 02/19/20 18:48: Troponin I 0.016 02/19/20 20:15: Lactic Acid 2.5 H* 02/19/20 21:00: Troponin I < 0.015 02/19/20 21:00: Magnesium 2.2 02/20/20 05:22: WBC 7.0, RBC 3.44 L, Hgb 10.7 L, Hct 34.5 L, MCV 100.3 H, MCH 31.1, MCHC 31.0 L, Plt Count 125 L, MPV 11.7, Immature Gran % (Auto) 0.600, Neut % (Auto) 74.0 H, Lymph % (Auto) 10.8 L, [place] % (Auto) 12.8 H, Eos % (Auto) 1.4, Baso % (Auto) 0.4, Absolute Neuts (auto) 5.2, Nucleated RBC % 0 02/20/20 05:22: Sodium 142, Potassium 2.9 L, Chloride 106, Carbon Dioxide 30.0, Anion Gap 6, BUN 32 H, Creatinine 2.25 H, Est GFR (MDRD) Af Amer 36 L, Est GFR (MDRD) Non-Af 30 L, BUN/Creatinine Ratio 14.2, Glucose 99, Calcium 7.8 L, Total Bilirubin 3.00 H 02/20/20 05:22: Lactic Acid 1.0 Rhythm: EKG: Atrial fibrillation with rapid ventricular response rate ECHO: Stress Test: Cardiac Cath: PCI: CT Surgery: Holter monitor: EPS: PPM: CXR: Chest CT Scan: Assessment/Plan 1. Atrial fibrillation with rapid ventricular response rate. * Patient presents with atrial fibrillation with rapid ventricular response rate. It is not clear whether he has been very compliant with his medications. * We will treat him with intravenous diltiazem for rate control * We will subsequently switch him to oral beta-evelin when he is less edematous. * He will continue with his amiodarone. * He will continue with Eliquis at the same dose. * An echocardiogram is being performed to reassess his ventricular function. * 2. Congestive heart failure with preserved ejection fraction * He appears to have developed recurrent congestive heart failure with preserved ejection fraction. The exact precipitating event is not clear at this time. * It may be related to diuretic resistance or dietary indiscretion. * Obtain echocardiogram to assess ventricular function * Continue intravenous diuresis * 3. Hypertension * Blood pressure under good control at this particular time * 4. Coronary artery disease * Patient is status post coronary artery bypass surgery. I do not have any indication that at this time that this is definitively secondary to further coronary ischemia. * Will review the echocardiographic findings to confirm the above. At this time there are no plans for any invasive therapy. * * Thank you for allowing me to participate in the care of your patient. Please don't hesitate to call if any issues arise.
[2020-02-20] MEDS: Metoprolol Tartrate 50 MG Tablet PO (09:42)
[2020-02-20] MEDS: Doxazosin 1 MG Tablet 2 MG PO ×2 (09:42→21:17)
[2020-02-20] MEDS: BETHANECHOL CHLORIDE 25 MG TABLET PO ×2 (09:42→21:17)
[2020-02-20] MEDS: APIXABAN 2.5 MG TABLET PO ×2 (09:42→21:17)
[2020-02-20] MEDS: Lisinopril 2.5 MG Tablet PO (09:43)
[2020-02-20] MEDS: Amiodarone 200 MG Tablet PO (09:43)
[2020-02-20] MEDS: Calcitriol 0.25 MCG Capsule 0.5 MCG PO (09:44)
[2020-02-20] MEDS: Allopurinol 300 MG Tablet PO (09:44)
--- NOTE | 2020-02-20 11:27 | PN_ITS ---
Patient Problems: Active and Suspected Problems (Last Reviewed 08/27/19 @ 05:[address] Blair Ochoa MD) Cellulitis of left lower extremity (Acute) Non-healing wound of lower extremity (Acute) Anasarca (Acute) Atrial fibrillation with RVR (Acute) Reason for Visit: edema Subjective: significant LE edema BL, abdominal swelling and groin swelling. Denies SOB. Lying in bed no SOB with O2 cannula laying on pillow next to him unused tho o2 is flowing. No fever/chills/cough. No CP/pressure/tightness. No palp. Vitals/I&O's: Vital Signs Temp Pulse Resp BP Pulse Ox 97.3 F L 95 18 110/72 93 02/20/20 10:00 02/20/20 10:00 02/20/20 10:00 02/20/20 10:00 02/20/20 10:00 Oxygen Flow Rate (L/min) 2 Oxygen Delivery Method Room Air Weight: 233 lb 7.512 oz Body Mass Index (BMI) 37.6 Finger Stick Blood Glucose 143 Intake and Output for Last 24 Hours 02/18/20 02/19/20 02/20/20 23:59 23:59 23:59 Intake Total 842.88 / 847.88 235 / 235 Output Total 450 / 450 Balance 392.88 / 397.88 235 / 235 General: Alert, Oriented x3, Cooperative HEENT: Atraumatic, PERRLA, EOMI, Normocephalic Neck: Supple, No JVD, Negative Carotid Bruits Lungs: Clear to auscultation, Normal air movement Cardiovascular: Regular rate, No murmurs Abdomen: Bowel Sounds Present, Soft, Non Tender, Distended, Obese Extremities: No edema, Capillary Refill Less than 3 Seconds, Edema - 3+ pitting edema BLE Skin: No rashes, No breakdown Musculoskeletal: No Tenderness to Palpation of Joints or Extremities Neurological: Cranial nerves II-XII grossly intact Psych/Mental Status: Normal Affect, Appropriate, Alert and oriented to time, place, person, mood and affect Laboratory Results 02/19/20 14:23: WBC 9.4, RBC 4.19 L, Hgb 12.7 L, Hct 42.2, MCV 100.7 H, MCH 30.3, MCHC 30.1 L, RDW Std Deviation 64.0 H, RDW Coeff of [place] 17.4 H, Plt Count 151, MPV 12.1 H, Immature Gran % (Auto) 0.300, Neut % (Auto) 79.8 H, Lymph % (Auto) 8.6 L, [place] % (Auto) 10.9 H, Eos % (Auto) 0.2, Baso % (Auto) 0.2, Absolute Neuts (auto) 7.5, Absolute Lymphs (auto) 0.81 L, Nucleated RBC % 0 02/19/20 14:23: PT 16.6 H, INR 1.4, APTT 35.2 02/19/20 14:23: Sodium 145, Potassium 3.8, Chloride 105, Carbon Dioxide 32.0, Anion Gap 8, BUN 34 H, Creatinine 2.67 H, Estim Creat Clear Calc 20.58, Est GFR (MDRD) Af Amer 30 L, Est GFR (MDRD) Non-Af 25 L, BUN/Creatinine Ratio 12.7, Glucose 117 H, Calcium 9.2, Total Bilirubin 4.80 H, AST 18, ALT 19, Alkaline Phosphatase 83, Troponin I < 0.015, Total Protein 6.9, Albumin 3.1 L, Globulin 3.8, Albumin/Globulin Ratio 0.8 L 02/19/20 14:23: Lactic Acid 2.3 H* 02/19/20 14:23: B-Natriuretic Peptide 1940.4 H 02/19/20 18:36: Urine Color Yellow, Urine Clarity Clear, Urine pH 5.0, Ur Specific [place] 1.015, Urine Protein 30 H, Urine Glucose (UA) Normal, Urine K etones Negative, Urine Occult Blood 50 H, Urine Nitrite Negative, Urine Bilirubin Negative, Urine Urobilinogen 1 H, Ur Leukocyte Esterase Negative, Ur ine RBC 0 SEEN, Urine WBC 0 SEEN, Ur Squamous Epith Cells 0-5 SEEN, Amorphous Sediment 1+, Urine Bacteria 0 SEEN, Urine Mucus 0 SEEN 02/19/20 18:48: Troponin I 0.016 02/19/20 20:15: Lactic Acid 2.5 H* 02/19/20 21:00: Troponin I < 0.015 02/19/20 21:00: Magnesium 2.2 02/20/20 05:22: WBC 7.0, RBC 3.44 L, Hgb 10.7 L, Hct 34.5 L, MCV 100.3 H, MCH 31.1, MCHC 31.0 L, RDW Std Deviation 64.4 H, RDW Coeff of [place] 17.2 H, Plt Count 125 L, MPV 11.7, Immature Gran % (Auto) 0.600, Neut % (Auto) 74.0 H, Lymph % (Auto) 10.8 L, [place] % (Auto) 12.8 H, Eos % (Auto) 1.4, Baso % (Auto) 0.4, Absolute Neuts (auto) 5.2, Absolute Lymphs (auto) 0.76 L, Nucleated RBC % 0 02/20/20 05:22: Sodium 142, Potassium 2.9 L, Chloride 106, Carbon Dioxide 30.0, Anion Gap 6, BUN 32 H, Creatinine 2.25 H, Estim Creat Clear Calc 24.42, Est GFR (MDRD) Af Amer 36 L, Est GFR (MDRD) Non-Af 30 L, BUN/Creatinine Ratio 14.2, Glucose 99, Calcium 7.8 L, Total Bilirubin 3.00 H, AST 17, ALT 14 L, Alkaline Phosphatase 67, Total Protein 5.5 L, Albumin 2.3 L, Globulin 3.2, Albumin/Globulin Ratio 0.7 L 02/20/20 05:22: Lactic Acid 1.0 Current Medications Allopurinol (Allopurinol 300 Mg Tablet) 300 mg PO DAILY@0800 [facility] Last Admin: 02/20/20 09:44 Dose: 300 mg Documented by: Amiodarone HCl (Amiodarone 200 Mg Tablet) 200 mg PO DAILY@0800 [facility] Last Admin: 02/20/20 09:43 Dose: 200 mg Documented by: Apixaban (Apixaban 2.5 Mg Tablet) 2.5 mg PO BID [facility] Last Admin: 02/20/20 09:42 Dose: 2.5 mg Documented by: Bethanechol Chloride (Bethanechol Chloride 25 Mg Tablet) 25 mg PO BID [facility] Last Admin: 02/20/20 09:42 Dose: 25 mg Documented by: Calcitriol (Calcitriol 0.25 Mcg Capsule) 0.25 mcg PO DINNER [facility] Calcitriol (Calcitriol 0.25 Mcg Capsule) 0.5 mcg PO BREAKFAST [facility] Last Admin: 02/20/20 09:44 Dose: 0.5 mcg Documented by: Colchicine (Colchicine 0.6 Mg Tablet) 0.6 mg PO QODAY@1000 [facility] Last Admin: 02/20/20 09:43 Dose: 0.6 mg Documented by: Doxazosin Mesylate (Doxazosin 1 Mg Tablet) 2 mg PO BID [facility] Last Admin: 02/20/20 09:42 Dose: 2 mg Documented by: Ergocalciferol (Ergocalciferol 50,000 Unit Capsule) 50,000 unit PO QMONTH@1000 [facility] Finasteride (Finasteride 5 Mg Tablet) 5 mg PO QHS [facility] Last Admin: 02/19/20 21:43 Dose: 5 mg Documented by: Furosemide 500 mg/ N/A 50 mls @ 1 mls/hr CONT INF .Q50H [facility]; Protocol Last Infusion: 02/19/20 22:03 Dose: 1 mls/hr Documented by: Diltiazem HCl 125 mg/ Dextrose 125 mls @ 10 mls/hr IV .[id number] [facility]; Protocol Last Titration: 02/20/20 10:00 Dose: 5 mg/hr, 5 mls/hr Documented by: Ceftriaxone Sodium 2 gm/ (Sodium Chloride) 50 mls @ 100 mls/hr IV Q24 [facility] Last Admin: 02/20/20 09:58 Dose: 100 mls/hr Documented by: Levothyroxine Sodium (Levothyroxine 25 Mcg Tablet) 25 mcg PO DAILY@0600 [facility] Last Admin: 02/20/20 06:11 Dose: 25 mcg Documented by: Lisinopril (Lisinopril 2.5 Mg Tablet) 2.5 mg PO DAILY [facility] Last Admin: 02/20/20 09:43 Dose: 2.5 mg Documented by: Metoprolol Tartrate (Metoprolol Tartrate 50 Mg Tablet) 50 mg PO DAILY [facility] Last Admin: 02/20/20 09:42 Dose: 50 mg Documented by: Nitroglycerin (Nitroglycerin (Inpatient Use) 0.4 Mg Tab.Subl) 0.4 mg SUBLINGUAL Q5M PRN PRN Reason: CARDIAC/CHEST PAIN Ondansetron HCl (Ondansetron 4 Mg/2 Ml Vial) 4 mg IV Q8H PRN PRN PRN Reason: NAUSEA/VOMITING Potassium Chloride (Potassium Chloride 20 Meq Tablet) 20 meq PO BIDCM [facility] Last Admin: 02/20/20 09:41 Dose: 20 meq Documented by: Sodium Chloride (0.9% Saline Lock 10 Ml Syringe) 10 - 40 ml IV UD PRN PRN Reason: SALINE FLUSH STROKE Vital Signs/Narrative: Vital Signs Temp Pulse Resp BP Pulse Ox 02/20/20 10:00 97.3 F L 95 18 110/72 93 02/20/20 09:42 105 H 115/62 02/20/20 09:00 91 15 106/67 100 02/20/20 08:00 93 13 105/62 100 Medical Necessity - Tobacco Use Smoking Status: Former smoker Tobacco Use: Cigarettes Assessment/Plan All Active Problems (Last Reviewed 08/27/19 @ 05:[address] Blair Ochoa MD) Cellulitis of both lower extremities (Acute) Nonhealing ulcer of right lower extremity with fat layer exposed (Acute) Nonhealing ulcer of left lower extremity with fat layer exposed (Acute) Cellulitis of left lower extremity (Acute) Non-healing wound of lower extremity (Acute) Anasarca (Acute) Atrial fibrillation with RVR (Acute) 1. Acute on chronic diastolic CHF - echo 05/25 shows EF 65% stage 2 diastolic dysfunction. On lasix drip, cardiology following. Replace K+ . Troponin negative x 3. Continue Na+ and fluid restriction, I/Os, DALE wraps daily. 2. Afib RVR - rate improved - continue eliquis, received cardizem bolus and on drip. 3. LLE cellulitis, also recent cat bite to right leg - cat bite was seen in wound center and felt not to be infectious. continue rocephin. No fever/leukocytosis. 4. CKD IV - trend with lasix drip 5. HTN 6. DMt2 with obesity 7. AUDAR - uses o2 at night 8. Hx CAD with prior CABG and ischemic CM - 9. Hypothyroidism - continue synthroid check tsh/ft4. 10. BPH - proscar DVT ppx: eliquis DC planning: PTOT, difficulty ambulating with severely swollen legs. This patient was seen by Doc Alanis PA-C under the supervision of Dr. Sood.
[2020-02-20 12:12] LABS: T4 Free Direct 1.61 ng/dL (0.76-1.46); Thyroid Stim Hormone (TSH) 3.21 uIU/mL (0.358-3.74)
--- NOTE | 2020-02-20 13:21 | CASEMGMT ---
CHRISTINE GRANADO assessment: Face to face for initial transition planning/care coordination assessment. RN LOY introduced self and role at [facility], pt voices understanding and consents to assessment at this time. Pt is A/Ox4 at this time and answers all questions appropriately at this time. Pt is sitting up in chair in no distress at this time. Care providers, pharmacy, and demographics verified at this time. PCP: Neil Specialists: Gin, cardio; Urologist; Public Health Officer-pt states cannot remember all names at this time. Preferred Pharmacy: [facility] Insurance: MCR A/B, Prescription Benefit: Living Will/HPOA: Pt states has LW/HPOA 'somewhere at home' and is aware that they are not on file at [facility] at this time. Pt states daughter, Anyi Dewitt, is HPOA. LNOK: Anyi Dewitt, daughter/HPOA; Emily Perez, sister Living Arrangements: Pt states lives with 4 cats in 1 story home with 2 steps in and states no concerns at home at this time. Pt states is independent with ADL's. Transportation: Pt states drives self and states no transportation concerns at this time. DME/HHC: Pt states has the following DME: cane, walker, grab bars, shower chair, and 2liters home oxygen at bedtime thru [facility]. Pt states if he qualifies for increased oxygen at discharge, he would like a local company and states no preference between [employer] at this time. Pt states has had HHC in the past and has been to [facility] in the past. Pt also had palliative referral sent last visit and CCN referral and states 'Those were not convenient at the time.' Pt states no concerns with going home at time of discharge. Pt states is retired. Pt states does not smoke cigarettes and drinks ETOH occasionally. Pt states no further concerns/needs at this time. CM to follow for home oxygen and any further discharge planning/needs. Advised pt to ask for CM if any further questions/concerns/needs arise, voices understanding. Pt Goal: Home Plan: Home, pending PT/OT evals, home oxygen qualification. [place] CHRISTINE GRANADO
--- NOTE | 2020-02-20 15:09 | NURSING ---
Unable to upload wound photos d/t counter server being down.
[2020-02-20] MEDS: Calcitriol 0.25 MCG Capsule PO (16:17)
[2020-02-20] MEDS: Finasteride 5 MG Tablet PO (21:17)
[2020-02-21] VITALS (25 sets, daily range): BP systolic 88–109; BP diastolic 50–78; PULSE 66–107; RESP 12–26; TEMP 36.5–36.9; O2SAT 93–100
[2020-02-21] MEDS: Furosemide 500 MG in Empty Viaflex 50 mL 1 EACH CONT INF (04:14)
[2020-02-21] MEDS: Levothyroxine 25 MCG TABLET PO (05:24)
[2020-02-21 05:57] LABS: Absolute Lymphocyte Count 0.62 X10^3/uL (0.83-4.51); Absolute Neutrophil Count 4.1 X10^3/uL (2.0-7.7); Basophil# 0.02 X10^3/uL; Basophil% 0.3 % (0-1); Eosinophil# 0.16 X10^3/uL; Eosinophils% 2.8 % (0-5); Hematocrit 36.7 % (40-54); Hemoglobin 11.2 g/dL (13.0-16.5); Lymphocyte # 0.62 X10^3/ul (4.0); Lymphocyte % 10.8 % (19-41); Mean Corp Hgb Conc 30.5 g/dL (32-36); Mean Corpuscular Hgb 30.6 pg (27.0-32.0); Mean Corpuscular Volume 100.3 fL (80-94); Mean Platelet Vol. 11.2 fl (6.2-12.0); Monocyte# 0.79 X10^3/uL; Monocyte% 13.7 % (0-10); NRBC Flagged by Analyzer 0 % (0-5); Neutrophil # 4.14 X10^3/uL (2.7-7.7); Neutrophil % 72.1 % (47-70); Platelet Count 141 K/mm3 (150-450); RBC Distribution Width SD 62.5 fl (35.1-43.9); Red Blood Count 3.66 M/mm3 (4.6-6.2); White Blood Count 5.8 K/mm3 (4.4-11.0)
[2020-02-21 06:31] LABS: ALB/GLOB Ratio 0.7 RATIO (0.9-2.4); AST(SGOT) 19 U/L (15-37); Alanine Aminotransfer ALT/SGPT 13 U/L (16-61); Albumin, Serum 2.3 g/dL (3.2-5.0); Alkaline Phosphatase 66 U/L (45-117); Anion Gap 5 (5-15); BUN 27 mg/dL (7-18); BUN/Creat Ratio 13.8 RATIO (10-20); Calcium,Total 8.3 mg/dL (8.5-10.1); Chloride 106 mmol/L (98-107); Creatinine, Serum 1.96 mg/dL (0.70-1.30); EST Glomerular Filtration Rate 35 mL/min (>60); Est Glom Filt Rate - Afr Amer 43 mL/min (>60); Estimated Creatinine Clearance 28.03 ml/min; Globulin 3.3 g/dL (2.2-4.2); Glucose 82 mg/dL (74-106); Potassium 3.2 mmol/L (3.5-5.1); Protein, Total 5.6 g/dL (6.4-8.2); Sodium Level 143 mmol/L (136-145)
--- NOTE | 2020-02-21 08:24 | PN.CARD_ITS ---
Objective: Vital Signs Temp Pulse Resp BP Pulse Ox 98.4 F 98 20 H 98/50 L 100 02/21/20 06:00 02/21/20 08:00 02/21/20 08:00 02/21/20 08:00 02/21/20 08:00 Oxygen Flow Rate (L/min) 2 Oxygen Delivery Method Room Air Weight: 233 lb 7.512 oz Body Mass Index (BMI) 37.6 Finger Stick Blood Glucose 143 Intake and Output for Last 24 Hours 02/19/20 02/20/20 02/21/20 23:59 23:59 23:59 Intake Total 842.88 / 847.88 1070.01 / 1315.01 460.18 / 460.18 Output Total 450 / 450 2800 / 3850 1875 / 1875 Balance 392.88 / 397.88 -1729.99 / -2534.99 -1414.82 / -1414.82 General: Awake, Alert, Oriented x 3 HEENT: PERRL, EOMI, Sclera Non Icteric Neck: Supple, Good ROM, No Lymph Node Enlargement Lungs: Clear to auscultation Cardiovascular: Irregular Rhythm, Normal S1, Normal S2, No Murmurs, No Rubs, No Gallops Vascular: No Carotid Bruits, Normal Femoral Pulses, Normal Radial Pulses, Normal Dorsalis Pedal Pulse, Normal Posterior Tibial Pulses Abdomen: Bowel Sounds Present, Soft, Non Tender, No HSM, No Organomegaly Extremities: No Cyanosis, No Clubbing, Bilateral Edema +2 Neurological: No Focal Motor or Sensory Deficit 02/21/20 05:20: WBC 5.8, RBC 3.66 L, Hgb 11.2 L, Hct 36.7 L, MCV 100.3 H, MCH 30.6, MCHC 30.5 L, Plt Count 141 L, MPV 11.2, Immature Gran % (Auto) 0.300, Neut % (Auto) 72.1 H, Lymph % (Auto) 10.8 L, [place] % (Auto) 13.7 H, Eos % (Auto) 2.8, Baso % (Auto) 0.3, Absolute Neuts (auto) 4.1, Nucleated RBC % 0 02/21/20 05:20: Sodium 143, Potassium 3.2 L, Chloride 106, Carbon Dioxide 32.0, Anion Gap 5, BUN 27 H, Creatinine 1.96 H, Est GFR (MDRD) Af Amer 43 L, Est GFR (MDRD) Non-Af 35 L, BUN/Creatinine Ratio 13.8, Glucose 82, Calcium 8.3 L, Total Bilirubin 2.00 H Rhythm: EKG: ECHO: Stress Test: Cardiac Cath: PCI: CT Surgery: Holter monitor: EPS: PPM: CXR: Chest CT Scan: Medical Necessity - Tobacco Use Smoking Status: Former smoker Tobacco Use: Cigarettes Assessment/Plan 1. Atrial fibrillation with rapid ventricular response rate. * Patient presents with atrial fibrillation with rapid ventricular response rate. It is not clear whether he has been very compliant with his medications. * We will treat him with intravenous diltiazem for rate control and switch today * We will subsequently switch him to oral beta-evelin when he is less edematous. * He will continue with his amiodarone. * He will continue with Eliquis at the same dose. * 2. Congestive heart failure with reduced ejection fraction * He appears to have developed recurrent congestive heart failure with reduced ejection fraction. The exact precipitating event is not clear at this time. * It may be related to diuretic resistance or dietary indiscretion. 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 Hypertension * Blood pressure under good control at this particular time * 4. Coronary artery disease * Patient is status post coronary artery bypass surgery. I do not have any indication that at this time that this is definitively secondary to further coronary ischemia. * Will review the echocardiographic findings to confirm the above. At this time there are no plans for any invasive therapy. * * Thank you for allowing me to participate in the care of your patient. Please don't hesitate to call if any issues arise.
[2020-02-21] MEDS: Calcitriol 0.25 MCG Capsule 0.5 MCG PO (09:04)
[2020-02-21] MEDS: Amiodarone 200 MG Tablet PO (09:04)
[2020-02-21] MEDS: Allopurinol 300 MG Tablet PO (09:05)
[2020-02-21] MEDS: BETHANECHOL CHLORIDE 25 MG TABLET PO ×2 (09:05→22:14)
[2020-02-21] MEDS: Metoprolol Tartrate 50 MG Tablet PO ×2 (09:06→22:14)
[2020-02-21] MEDS: Lisinopril 2.5 MG Tablet PO (09:06)
[2020-02-21] MEDS: APIXABAN 2.5 MG TABLET PO ×2 (09:06→22:14)
[2020-02-21 12:49] LABS: Phosphorus 2.7 mg/dL (2.5-4.9)
--- NOTE | 2020-02-21 13:14 | PN_ITS ---
Patient Problems: Active and Suspected Problems (Last Reviewed 08/27/19 @ 05:[address] Blair Ochoa MD) Cellulitis of left lower extremity (Acute) Non-healing wound of lower extremity (Acute) Anasarca (Acute) Atrial fibrillation with RVR (Acute) Reason for Visit: Edema, CHF, Afib Vitals/I&O's: Vital Signs Temp Pulse Resp BP Pulse Ox 97.8 F 89 12 88/52 L 96 02/21/20 13:00 02/21/20 13:00 02/21/20 13:00 02/21/20 13:00 02/21/20 13:00 Oxygen Flow Rate (L/min) 2 Oxygen Delivery Method Room Air Weight: 233 lb 7.512 oz Body Mass Index (BMI) 37.6 Finger Stick Blood Glucose 143 Intake and Output for Last 24 Hours 02/19/20 02/20/20 02/21/20 23:59 23:59 23:59 Intake Total 842.88 / 847.88 1070.01 / 1315.01 840.69 / 840.69 Output Total 450 / 450 2800 / 3850 2700 / 2700 Balance 392.88 / 397.88 -1729.99 / -2534.99 -1859.31 / -1859.31 General: Alert, Oriented x3, Cooperative HEENT: Atraumatic, PERRLA, EOMI, Normocephalic Neck: Supple, No JVD, Negative Carotid Bruits Lungs: Clear to auscultation, Diminished Cardiovascular: No murmurs, Irregular Rate Abdomen: Bowel Sounds Present, Soft, Non Tender, Distended Extremities: Capillary Refill Less than 3 Seconds, Edema Skin: No rashes, No breakdown Musculoskeletal: No Tenderness to Palpation of Joints or Extremities Neurological: Cranial nerves II-XII grossly intact Psych/Mental Status: Normal Affect, Appropriate, Alert and oriented to time, place, person, mood and affect Microbiology Past 72 Hours 02/19/20 18:36 Urine, Clean Catch Urine Culture - Final Culture exhibits no growth. Laboratory Results 02/21/20 05:20: WBC 5.8, RBC 3.66 L, Hgb 11.2 L, Hct 36.7 L, MCV 100.3 H, MCH 30.6, MCHC 30.5 L, RDW Std Deviation 62.5 H, RDW Coeff of Francis 17.0 H, Plt Count 141 L, MPV 11.2, Immature Gran % (Auto) 0.300, Neut % (Auto) 72.1 H, Lymph % (Auto) 10.8 L, [place] % (Auto) 13.7 H, Eos % (Auto) 2.8, Baso % (Auto) 0.3, Absolute Neuts (auto) 4.1, Absolute Lymphs (auto) 0.62 L, Nucleated RBC % 0 02/21/20 05:20: Sodium 143, Potassium 3.2 L, Chloride 106, Carbon Dioxide 32.0, Anion Gap 5, BUN 27 H, Creatinine 1.96 H, Estim Creat Clear Calc 28.03, Est GFR (MDRD) Af Amer 43 L, Est GFR (MDRD) Non-Af 35 L, BUN/Creatinine Ratio 13.8, Glucose 82, Calcium 8.3 L, Total Bilirubin 2.00 H, AST 19, ALT 13 L, Alkaline Phosphatase 66, Total Protein 5.6 L, Albumin 2.3 L, Globulin 3.3, Albumin/Globulin Ratio 0.7 L 02/21/20 05:20: Phosphorus 2.7 Current Medications Allopurinol (Allopurinol 300 Mg Tablet) 300 mg PO DAILY@0800 [facility] Last Admin: 02/21/20 09:05 Dose: 300 mg Documented by: Amiodarone HCl (Amiodarone 200 Mg Tablet) 200 mg PO DAILY@0800 [facility] Last Admin: 02/21/20 09:04 Dose: 200 mg Documented by: Apixaban (Apixaban 2.5 Mg Tablet) 2.5 mg PO BID [facility] Last Admin: 02/21/20 09:06 Dose: 2.5 mg Documented by: Bethanechol Chloride (Bethanechol Chloride 25 Mg Tablet) 25 mg PO BID [facility] Last Admin: 02/21/20 09:05 Dose: 25 mg Documented by: Calcitriol (Calcitriol 0.25 Mcg Capsule) 0.25 mcg PO DINNER [facility] Last Admin: 02/20/20 16:17 Dose: 0.25 mcg Documented by: Calcitriol (Calcitriol 0.25 Mcg Capsule) 0.5 mcg PO BREAKFAST [facility] Last Admin: 02/21/20 09:04 Dose: 0.5 mcg Documented by: Colchicine (Colchicine 0.6 Mg Tablet) 0.6 mg PO QODAY@1000 [facility] Last Admin: 02/20/20 09:43 Dose: 0.6 mg Documented by: Doxazosin Mesylate (Doxazosin 1 Mg Tablet) 2 mg PO QHS [facility] Ergocalciferol (Ergocalciferol 50,000 Unit Capsule) 50,000 unit PO QMONTH@1000 [facility] Finasteride (Finasteride 5 Mg Tablet) 5 mg PO QHS [facility] Last Admin: 02/20/20 21:17 Dose: 5 mg Documented by: Furosemide 500 mg/ N/A 50 mls @ 1 mls/hr CONT INF .Q50H [facility]; Protocol Last Infusion: 02/21/20 11:40 Dose: 1 mls/hr Documented by: Diltiazem HCl 125 mg/ Dextrose 125 mls @ 10 mls/hr IV .[id number] [facility]; Protocol Last Titration: 02/21/20 11:37 Dose: 0 mg/hr, 0 mls/hr Documented by: Ceftriaxone Sodium 2 gm/ (Sodium Chloride) 50 mls @ 100 mls/hr IV Q24 [facility] Last Infusion: 02/21/20 09:35 Dose: Infused Documented by: Levothyroxine Sodium (Levothyroxine 25 Mcg Tablet) 25 mcg PO DAILY@0600 [facility] Last Admin: 02/21/20 05:24 Dose: 25 mcg Documented by: Lisinopril (Lisinopril 2.5 Mg Tablet) 2.5 mg PO DAILY [facility] Last Admin: 02/21/20 09:06 Dose: 2.5 mg Documented by: Metoprolol Tartrate (Metoprolol Tartrate 50 Mg Tablet) 50 mg PO BID [facility] Last Admin: 02/21/20 09:06 Dose: 50 mg Documented by: Nitroglycerin (Nitroglycerin (Inpatient Use) 0.4 Mg Tab.Subl) 0.4 mg SUBLINGUAL Q5M PRN PRN Reason: CARDIAC/CHEST PAIN Ondansetron HCl (Ondansetron 4 Mg/2 Ml Vial) 4 mg IV Q8H PRN PRN PRN Reason: NAUSEA/VOMITING Potassium Chloride (Potassium Chloride 20 Meq Tablet) 20 meq PO BIDCM [facility] Last Admin: 02/21/20 09:04 Dose: 20 meq Documented by: Sodium Chloride (0.9% Saline Lock 10 Ml Syringe) 10 - 40 ml IV UD PRN PRN Reason: SALINE FLUSH STROKE Vital Signs/Narrative: Vital Signs Temp Pulse Resp BP BP Pulse Ox 02/21/20 13:00 97.8 F 89 12 88/52 L 96 02/21/20 12:00 98.0 F 80 25 H 90/59 L 95 02/21/20 11:37 98.0 F 76 15 99 02/21/20 11:00 85 16 89/50 L 97 02/21/20 10:00 96 15 92/50 L 93 Medical Necessity - Tobacco Use Smoking Status: Former smoker Tobacco Use: Cigarettes Assessment/Plan All Active Problems (Last Reviewed 08/27/19 @ 05:[address] Blair Ochoa MD) Cellulitis of both lower extremities (Acute) Nonhealing ulcer of right lower extremity with fat layer exposed (Acute) Nonhealing ulcer of left lower extremity with fat layer exposed (Acute) Cellulitis of left lower extremity (Acute) Non-healing wound of lower extremity (Acute) Anasarca (Acute) Atrial fibrillation with RVR (Acute) 1. Acute on chronic diastolic CHF - Significant urine output and decreased LE edema, however still edematous in the legs and abdomen. echo 05/25 shows EF 65% stage 2 diastolic dysfunction. On lasix drip, cardiology following. Replace K+ . Troponin negative x 3. Continue Na+ and fluid restriction, I/Os, DALE wraps daily. 2. Afib RVR - rate improved - continue eliquis, received cardizem bolus and on drip. per cardiology notes transition off drip and onto oral metoprolol. If his blood pressure will tolerate this. 3. LLE cellulitis, also recent cat bite to right leg - cat bite was seen in wound center and felt not to be infectious. continue rocephin. No fever/leukocytosis. Blood cultures pending. 4. CKD IV - trend with lasix drip - improving with diuresis. 5. HTN - trending low. 6. DMt2 with obesity 7. AUDRA - uses o2 at night 8. Hx CAD with prior CABG and ischemic CM - continue care as per cardiology. 9. Hypothyroidism - t4 slightly elevated however tsh normal. No changes at this time. 10. BPH - proscar DVT ppx: davide BUSTOS planning: walking is improving with the improvement in his LE edema. This patient was seen by Doc Alanis PA-C under the supervision of Dr. Sood.
[2020-02-21] MEDS: Calcitriol 0.25 MCG Capsule PO (16:55)
[2020-02-21] MEDS: Doxazosin 1 MG Tablet 2 MG PO (22:14)
[2020-02-21] MEDS: Finasteride 5 MG Tablet PO (22:14)
[2020-02-22] VITALS (15 sets, daily range): BP systolic 100–150; BP diastolic 51–64; PULSE 53–115; RESP 16–18; TEMP 36.5–37.3; O2SAT 88–100
[2020-02-22 05:17] LABS: Absolute Lymphocyte Count 0.76 X10^3/uL (0.83-4.51); Absolute Neutrophil Count 3.7 X10^3/uL (2.0-7.7); Basophil# 0.02 X10^3/uL; Basophil% 0.4 % (0-1); Eosinophil# 0.22 X10^3/uL; Hematocrit 37.2 % (40-54); Hemoglobin 11.4 g/dL (13.0-16.5); Lymphocyte # 0.76 X10^3/ul (4.0); Lymphocyte % 13.9 % (19-41); Mean Corp Hgb Conc 30.6 g/dL (32-36); Mean Corpuscular Hgb 30.8 pg (27.0-32.0); Mean Corpuscular Volume 100.5 fL (80-94); Monocyte# 0.75 X10^3/uL; Monocyte% 13.7 % (0-10); NRBC Flagged by Analyzer 0 % (0-5); Neutrophil # 3.71 X10^3/uL (2.7-7.7); Neutrophil % 67.6 % (47-70); Platelet Count 154 K/mm3 (150-450); RBC Distribution Width CV 16.7 % (11.6-14.6); RBC Distribution Width SD 61.9 fl (35.1-43.9); White Blood Count 5.5 K/mm3 (4.4-11.0)
[2020-02-22 05:38] LABS: ALB/GLOB Ratio 0.7 RATIO (0.9-2.4); AST(SGOT) 20 U/L (15-37); Alanine Aminotransfer ALT/SGPT 14 U/L (16-61); Albumin, Serum 2.3 g/dL (3.2-5.0); Alkaline Phosphatase 73 U/L (45-117); Anion Gap 4 (5-15); BUN 26 mg/dL (7-18); BUN/Creat Ratio 12.9 RATIO (10-20); Calcium,Total 8.4 mg/dL (8.5-10.1); Chloride 105 mmol/L (98-107); Creatinine, Serum 2.01 mg/dL (0.70-1.30); EST Glomerular Filtration Rate 34 mL/min (>60); Est Glom Filt Rate - Afr Amer 42 mL/min (>60); Estimated Creatinine Clearance 27.33 ml/min; Globulin 3.4 g/dL (2.2-4.2); Glucose 104 mg/dL (74-106); Potassium 3.4 mmol/L (3.5-5.1); Protein, Total 5.7 g/dL (6.4-8.2); Sodium Level 141 mmol/L (136-145)
[2020-02-22] MEDS: Levothyroxine 25 MCG TABLET PO (05:39)
--- NOTE | 2020-02-22 07:50 | PN.CARD_ITS ---
Subjectve: Patient seen and evaluated. Appears to be doing better this morning. Less edematous and is breathing better. Objective: Vital Signs Temp Pulse Resp BP Pulse Ox 97.7 F L 87 16 101/55 L 96 02/22/20 07:45 02/22/20 07:45 02/22/20 07:45 02/22/20 07:45 02/22/20 07:45 Oxygen Flow Rate (L/min) 2 Oxygen Delivery Method Nasal Cannula Weight: 222 lb 3.615 oz Body Mass Index (BMI) 37.6 Finger Stick Blood Glucose 143 Intake and Output for Last 24 Hours 02/20/20 02/21/20 02/22/20 23:59 23:59 23:59 Intake Total 1070.01 / 1315.01 1480.69 / 1480.69 120 / 120 Output Total 2800 / 3850 4700 / 4700 700 / 700 Balance -1729.99 / -2534.99 -3219.31 / -3219.31 -580 / -580 General: Awake, Alert, Oriented x 3 HEENT: PERRL, EOMI, Sclera Non Icteric Neck: Supple, Good ROM, No Lymph Node Enlargement Lungs: Clear to auscultation Cardiovascular: Irregular Rhythm, Normal S1, Normal S2, No Murmurs, No Rubs, No Gallops Vascular: No Carotid Bruits, Normal Femoral Pulses, Normal Radial Pulses, Normal Dorsalis Pedal Pulse, Normal Posterior Tibial Pulses Abdomen: Bowel Sounds Present, Soft, Non Tender, No HSM, No Organomegaly Extremities: No Cyanosis, No Clubbing, Bilateral Edema +2 Musculoskeletal: No Erythema Skin: No Rashes Lymphatic: No Lymph Node Enlargement Neurological: No Focal Motor or Sensory Deficit 02/21/20 05:20: Phosphorus 2.7 02/22/20 04:58: WBC 5.5, RBC 3.70 L, Hgb 11.4 L, Hct 37.2 L, MCV 100.5 H, MCH 30.8, MCHC 30.6 L, Plt Count 154, MPV 11.0, Immature Gran % (Auto) 0.400, Neut % (Auto) 67.6, Lymph % (Auto) 13.9 L, [place] % (Auto) 13.7 H, Eos % (Auto) 4.0, Baso % (Auto) 0.4, Absolute Neuts (auto) 3.7, Nucleated RBC % 0 02/22/20 04:58: Sodium 141, Potassium 3.4 L, Chloride 105, Carbon Dioxide 32.0, Anion Gap 4 L, BUN 26 H, Creatinine 2.01 H, Est GFR (MDRD) Af Amer 42 L, Est GFR (MDRD) Non-Af 34 L, BUN/Creatinine Ratio 12.9, Glucose 104, Calcium 8.4 L, Total Bilirubin 1.10 H Rhythm: EKG: ECHO: Stress Test: Cardiac Cath: PCI: CT Surgery: Holter monitor: EPS: PPM: CXR: Chest CT Scan: Medical Necessity - Tobacco Use Smoking Status: Former smoker Tobacco Use: Cigarettes Assessment/Plan 1. Atrial fibrillation with rapid ventricular response rate. * Patient presents with atrial fibrillation with rapid ventricular response rate. It is not clear whether he has been very compliant with his medications. * He has been switched to oral beta-evelin and appears to be tolerating this well. * He will continue with his amiodarone. * He will continue with Eliquis at the same dose. * At this time he probably will be relegated to rate control. I do not think that he is a candidate for ablation at this time. 2. Congestive heart failure with reduced ejection fraction * He appears to have developed recurrent congestive heart failure with reduced ejection fraction. The exact precipitating event is not clear at this time. * It may be related to diuretic resistance or dietary indiscretion. 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 We will repeat his echocardiogram when his rate is better controlled. If it is still reduced then he may be considered a candidate for an implantable defibrillator. 3. Hypertension * Blood pressure under good control at this particular time * 4. Coronary artery disease * Patient is status post coronary artery bypass surgery. I do not have any indication that at this time that this is definitively secondary to further coronary ischemia. * Echocardiographic findings demonstrate no segmental wall motion abnormalities present * Thank you for allowing me to participate in the care of your patient. Please don't hesitate to call if any issues arise.
[2020-02-22] MEDS: Amiodarone 200 MG Tablet PO (09:04)
[2020-02-22] MEDS: APIXABAN 2.5 MG TABLET PO ×2 (09:04→21:37)
[2020-02-22] MEDS: Lisinopril 2.5 MG Tablet PO (09:04)
[2020-02-22] MEDS: Allopurinol 300 MG Tablet PO (09:05)
[2020-02-22] MEDS: Calcitriol 0.25 MCG Capsule 0.5 MCG PO (09:05)
[2020-02-22] MEDS: Metoprolol Tartrate 50 MG Tablet PO ×2 (09:06→21:38)
[2020-02-22] MEDS: BETHANECHOL CHLORIDE 25 MG TABLET PO ×2 (09:06→21:37)
--- NOTE | 2020-02-22 09:23 | NURSING ---
wound photo: left lower leg
--- NOTE | 2020-02-22 09:25 | NURSING ---
wound photo: right lower leg
--- NOTE | 2020-02-22 09:26 | NURSING ---
wound photo: left elbow
--- NOTE | 2020-02-22 13:00 | PCM.PROGNOTE ---
Patient Problems: Active and Suspected Problems (Last Reviewed 08/27/19 @ 05:[address] Blair Ochoa MD) Cellulitis of left lower extremity (Acute) Non-healing wound of lower extremity (Acute) Anasarca (Acute) Atrial fibrillation with RVR (Acute) Subjective: Patient seen and examined. States abdominal and lower extremity swelling is improved. Shortness of breath improved as well. - Physical Exam Vitals/I&O's: Vital Signs Temp Pulse Resp BP Pulse Ox 97.7 F L 87 16 101/55 L 88 02/22/20 07:45 02/22/20 09:06 02/22/20 08:28 02/22/20 09:06 02/22/20 09:00 Oxygen Flow Rate (L/min) 2 Oxygen Delivery Method Room Air Weight: 222 lb 3.615 oz Body Mass Index (BMI) 37.6 Finger Stick Blood Glucose 143 Intake and Output for Last 24 Hours 02/20/20 02/21/20 02/22/20 23:59 23:59 23:59 Intake Total 1070.01 / 1315.01 1480.69 / 1480.69 170 / 170 Output Total 2800 / 3850 4700 / 4700 700 / 700 Balance -1729.99 / -2534.99 -3219.31 / -3219.31 -530 / -530 General: Alert, Oriented x3, Cooperative HEENT: Atraumatic, PERRLA, EOMI, Normocephalic Neck: Supple, No JVD, Negative Carotid Bruits Lungs: Clear to auscultation, Diminished Cardiovascular: - - Atrial fibrillation, rate controlled Abdomen: Bowel Sounds Present, Soft, Non Tender, Non-Distended Extremities: No clubbing, No cyanosis, Capillary Refill Less than 3 Seconds, Edema - Bilateral lower extremities, Serafin wraps in place Skin: - - Bilateral lower extremity ulcerations with left lower extremity redness. Left elbow skin abnormality, chronic Musculoskeletal: No Tenderness to Palpation of Joints or Extremities Neurological: Cranial nerves II-XII grossly intact, Neuro grossly intact Psych/Mental Status: Normal Affect, Appropriate Microbiology Past 72 Hours 02/19/20 14:25 Blood Culture (Wb) - Anticubital Right Blood Culture - Preliminary No growth in 48 hours. 02/19/20 14:20 Blood Culture (Wb) - Right Hand Blood Culture - Preliminary No growth in 48 hours. 02/19/20 18:36 Urine, Clean Catch Urine Culture - Final Culture exhibits no growth. Laboratory Results 02/22/20 04:58: WBC 5.5, RBC 3.70 L, Hgb 11.4 L, Hct 37.2 L, MCV 100.5 H, MCH 30.8, MCHC 30.6 L, RDW Std Deviation 61.9 H, RDW Coeff of Francis 16.7 H, Plt Count 154, MPV 11.0, Immature Gran % (Auto) 0.400, Neut % (Auto) 67.6, Lymph % (Auto) 13.9 L, [place] % (Auto) 13.7 H, Eos % (Auto) 4.0, Baso % (Auto) 0.4, Absolute Neuts (auto) 3.7, Absolute Lymphs (auto) 0.76 L, Nucleated RBC % 0 02/22/20 04:58: Sodium 141, Potassium 3.4 L, Chloride 105, Carbon Dioxide 32.0, Anion Gap 4 L, BUN 26 H, Creatinine 2.01 H, Estim Creat Clear Calc 27.33, Est GFR (MDRD) Af Amer 42 L, Est GFR (MDRD) Non-Af 34 L, BUN/Creatinine Ratio 12.9, Glucose 104, Calcium 8.4 L, Total Bilirubin 1.10 H, AST 20, ALT 14 L, Alkaline Phosphatase 73, Total Protein 5.7 L, Albumin 2.3 L, Globulin 3.4, Albumin/Globulin Ratio 0.7 L Current Medications Allopurinol (Allopurinol 300 Mg Tablet) 300 mg PO DAILY@0800 [facility] Last Admin: 02/22/20 09:05 Dose: 300 mg Documented by: Amiodarone HCl (Amiodarone 200 Mg Tablet) 200 mg PO DAILY@0800 [facility] Last Admin: 02/22/20 09:04 Dose: 200 mg Documented by: Apixaban (Apixaban 2.5 Mg Tablet) 2.5 mg PO BID [facility] Last Admin: 02/22/20 09:04 Dose: 2.5 mg Documented by: Bethanechol Chloride (Bethanechol Chloride 25 Mg Tablet) 25 mg PO BID [facility] Last Admin: 02/22/20 09:06 Dose: 25 mg Documented by: Calcitriol (Calcitriol 0.25 Mcg Capsule) 0.25 mcg PO DINNER [facility] Last Admin: 02/21/20 16:55 Dose: 0.25 mcg Documented by: Calcitriol (Calcitriol 0.25 Mcg Capsule) 0.5 mcg PO BREAKFAST [facility] Last Admin: 02/22/20 09:05 Dose: 0.5 mcg Documented by: Colchicine (Colchicine 0.6 Mg Tablet) 0.6 mg PO QODAY@1000 [facility] Last Admin: 02/22/20 09:07 Dose: 0.6 mg Documented by: Doxazosin Mesylate (Doxazosin 1 Mg Tablet) 2 mg PO QHS [facility] Last Admin: 02/21/20 22:14 Dose: 2 mg Documented by: Ergocalciferol (Ergocalciferol 50,000 Unit Capsule) 50,000 unit PO QMONTH@1000 [facility] Finasteride (Finasteride 5 Mg Tablet) 5 mg PO QHS [facility] Last Admin: 02/21/20 22:14 Dose: 5 mg Documented by: Furosemide 500 mg/ N/A 50 mls @ 1 mls/hr CONT INF .Q50H [facility]; Protocol Last Infusion: 02/21/20 11:40 Dose: 1 mls/hr Documented by: Ceftriaxone Sodium 2 gm/ (Sodium Chloride) 50 mls @ 100 mls/hr IV Q24 [facility] Last Infusion: 02/22/20 09:42 Dose: Infused Documented by: Levothyroxine Sodium (Levothyroxine 25 Mcg Tablet) 25 mcg PO DAILY@0600 [facility] Last Admin: 02/22/20 05:39 Dose: 25 mcg Documented by: Lisinopril (Lisinopril 2.5 Mg Tablet) 2.5 mg PO DAILY [facility] Last Admin: 02/22/20 09:04 Dose: 2.5 mg Documented by: Metoprolol Tartrate (Metoprolol Tartrate 50 Mg Tablet) 50 mg PO BID [facility] Last Admin: 02/22/20 09:06 Dose: 50 mg Documented by: Nitroglycerin (Nitroglycerin (Inpatient Use) 0.4 Mg Tab.Subl) 0.4 mg SUBLINGUAL Q5M PRN PRN Reason: CARDIAC/CHEST PAIN Ondansetron HCl (Ondansetron 4 Mg/2 Ml Vial) 4 mg IV Q8H PRN PRN PRN Reason: NAUSEA/VOMITING Potassium Chloride (Potassium Chloride 20 Meq Tablet) 20 meq PO BIDCM [facility] Last Admin: 02/22/20 09:07 Dose: 20 meq Documented by: Sodium Chloride (0.9% Saline Lock 10 Ml Syringe) 10 - 40 ml IV UD PRN PRN Reason: SALINE FLUSH Medical Necessity - Tobacco Use Smoking Status: Former smoker Tobacco Use: Cigarettes Assessment/Plan All Active Problems (Last Reviewed 08/27/19 @ 05:[address] Blair Ochoa MD) Cellulitis of both lower extremities (Acute) Nonhealing ulcer of right lower extremity with fat layer exposed (Acute) Nonhealing ulcer of left lower extremity with fat layer exposed (Acute) Cellulitis of left lower extremity (Acute) Non-healing wound of lower extremity (Acute) Anasarca (Acute) Atrial fibrillation with RVR (Acute) 1. Acute hypoxic respiratory insufficiency secondary to acute on chronic heart failure with reduced ejection fraction-BNP 1940. Chest x-ray consistent with mild CHF. Echocardiogram demonstrates an EF of 35%, mild tricuspid valve insufficiency, mild to moderate mitral valve insufficiency, pulmonary artery systolic pressure 50 mmHg. Continue Lasix drip. Strict I&O. Daily weight. Continue supplement oxygen to maintain O2 at or above 90%. Walking pulse ox prior to discharge. Patient does use supplemental oxygen at nighttime only due to AUDRA. 2. Atrial fibrillation with RVR-rate currently controlled. Continue Eliquis. Cardizem drip discontinued. Continue oral metoprolol, amiodarone. 3. Left lower extremity cellulitis-on IV Rocephin. Blood cultures negative. Redness improving. Afebrile, no leukocytosis. Patient has multiple superficial abrasions bilateral lower extremities. Continue dressing changes per wound RN. Continue outpatient follow-up with wound center. Serafin wraps bilateral lower extremities. 4. Chronic kidney disease stage IV-stable, trend BMP. 5. Hypertension-stable, continue current regimen. 6. Type 2 diabetes [id number] with sliding scale insulin. 7. AUDRA-nightly supplemental oxygen. 8. CAD with history of CABG/ischemic cardiomyopathy-continue medical management. 9. Hypothyroidism-continue Synthroid regimen. 10. BPH-continue Proscar, bethanechol. 11. Left elbow skin abnormality-patient reports this is chronic. Concern for skin cancer. Recommend follow-up with dermatology. DVT prophylaxis-Eliquis. This patient was seen by TARIQ Walker under the supervision of Dr. Sood.
[2020-02-22] MEDS: Calcitriol 0.25 MCG Capsule PO (16:05)
[2020-02-22 16:10] LABS: Bedside Glucose 92 mg/dL (70-110)
[2020-02-22 19:07] LABS: Magnesium 2.1 mg/dL (1.6-2.6)
[2020-02-22] MEDS: Finasteride 5 MG Tablet PO (21:37)
[2020-02-22] MEDS: Doxazosin 1 MG Tablet 2 MG PO (21:40)
[2020-02-22 22:20] LABS: Bedside Glucose 124 mg/dL (70-110)
[2020-02-23] VITALS (18 sets, daily range): BP systolic 102–115; BP diastolic 54–67; PULSE 53–117; RESP 16–18; TEMP 36.3–36.7; O2SAT 95–97
[2020-02-23 06:03] LABS: Hematocrit 39.1 % (40-54); Hemoglobin 11.9 g/dL (13.0-16.5); Mean Corp Hgb Conc 30.4 g/dL (32-36); Mean Corpuscular Hgb 30.4 pg (27.0-32.0); Mean Corpuscular Volume 99.7 fL (80-94); Mean Platelet Vol. 11.4 fl (6.2-12.0); Platelet Count 167 K/mm3 (150-450); RBC Distribution Width CV 16.4 % (11.6-14.6); RBC Distribution Width SD 60.3 fl (35.1-43.9); Red Blood Count 3.92 M/mm3 (4.6-6.2); White Blood Count 5.4 K/mm3 (4.4-11.0)
[2020-02-23] MEDS: Levothyroxine 25 MCG TABLET PO (06:09)
[2020-02-23 06:26] LABS: Bedside Glucose 90 mg/dL (70-110)
[2020-02-23 06:30] LABS: Anion Gap 6 (5-15); BUN 26 mg/dL (7-18); BUN/Creat Ratio 14.1 RATIO (10-20); Chloride 102 mmol/L (98-107); Creatinine, Serum 1.84 mg/dL (0.70-1.30); EST Glomerular Filtration Rate 38 mL/min (>60); Est Glom Filt Rate - Afr Amer 46 mL/min (>60); Estimated Creatinine Clearance 29.86 ml/min; Glucose 92 mg/dL (74-106); Potassium 3.3 mmol/L (3.5-5.1); Sodium Level 141 mmol/L (136-145)
[2020-02-23] MEDS: Furosemide 500 MG in Empty Viaflex 50 mL 1 EACH CONT INF (07:16)
--- NOTE | 2020-02-23 08:28 | PN.CARD_ITS ---
Subjectve: Patient seen and evaluated. Appears to be doing better. Still diuresing but still has some ways to go. Objective: Vital Signs Temp Pulse Resp BP Pulse Ox 97.9 F 87 18 111/54 L 96 02/23/20 08:26 02/23/20 08:26 02/23/20 08:26 02/23/20 08:26 02/23/20 08:26 Oxygen Flow Rate (L/min) 2 Oxygen Delivery Method Room Air Weight: 216 lb 0.848 oz Body Mass Index (BMI) 37.6 Finger Stick Blood Glucose 143 Intake and Output for Last 24 Hours 02/21/20 02/22/20 02/23/20 23:59 23:59 23:59 Intake Total 1480.69 / 1480.69 890 / 890 42.57 / 42.57 Output Total 4700 / 4700 3100 / 4100 1300 / 1300 Balance -3219.31 / -3219.31 -2210 / -3210 -1257.43 / -1257.43 General: Awake, Alert, Oriented x 3 HEENT: PERRL, EOMI, Sclera Non Icteric Neck: Supple, Good ROM, No Lymph Node Enlargement Lungs: Clear to auscultation Cardiovascular: Regular Rhythm, Normal S1, Normal S2, No Murmurs, No Rubs, No Gallops Vascular: No Carotid Bruits, Normal Femoral Pulses, Normal Radial Pulses, Normal Dorsalis Pedal Pulse, Normal Posterior Tibial Pulses Abdomen: Bowel Sounds Present, Soft, Non Tender, No HSM, No Organomegaly Extremities: No Cyanosis, No Clubbing, No edema Musculoskeletal: No Erythema Skin: No Rashes Lymphatic: No Lymph Node Enlargement Neurological: No Focal Motor or Sensory Deficit Psych/Mental Status: Appropriate 02/22/20 04:58: Magnesium 2.1 02/23/20 05:35: WBC 5.4, RBC 3.92 L, Hgb 11.9 L, Hct 39.1 L, MCV 99.7 H, MCH 30.4, MCHC 30.4 L, Plt Count 167, MPV 11.4 02/23/20 05:35: Sodium 141, Potassium 3.3 L, Chloride 102, Carbon Dioxide 33.0 H , Anion Gap 6, BUN 26 H, Creatinine 1.84 H, Est GFR (MDRD) Af Amer 46 L, Est GFR (MDRD) Non-Af 38 L, BUN/Creatinine Ratio 14.1, Glucose 92, Calcium 9.0, Magnesium 2.0 Rhythm: EKG: ECHO: Stress Test: Cardiac Cath: PCI: CT Surgery: Holter monitor: EPS: PPM: CXR: Chest CT Scan: Medical Necessity - Tobacco Use Smoking Status: Former smoker Tobacco Use: Cigarettes Assessment/Plan 1. Atrial fibrillation with rapid ventricular response rate. * Patient presents with atrial fibrillation with rapid ventricular response rate. It is not clear whether he has been very compliant with his medications. * He has been switched to oral beta-evelin and appears to be tolerating this well. * He will continue with his amiodarone. * He will continue with Eliquis at the same dose. * At this time he probably will be relegated to rate control. I do not think that he is a candidate for ablation at this time. 2. Congestive heart failure with reduced ejection fraction * He appears to have developed recurrent congestive heart failure with reduced ejection fraction. The exact precipitating event is not clear at this time. * It may be related to diuretic resistance or dietary indiscretion. 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 We will repeat his echocardiogram when his rate is better controlled. If it is still reduced then he may be considered a candidate for an implantable defibrillator. 3. Hypertension * Blood pressure under good control at this particular time * 4. Coronary artery disease * Patient is status post coronary artery bypass surgery. I do not have any indication that at this time that this is definitively secondary to further c oronary ischemia. * Echocardiographic findings demonstrate no segmental wall motion abnormalities present * * * Thank you for allowing me to participate in the care of your patient. Please don't hesitate to call if any issues arise. It appears he still needs to stay in for intravenous diuresis on the same regimen. * He should be encouraged to sit in chair.
[2020-02-23] MEDS: Amiodarone 200 MG Tablet PO (08:35)
[2020-02-23] MEDS: Allopurinol 300 MG Tablet PO (08:35)
[2020-02-23] MEDS: Calcitriol 0.25 MCG Capsule 0.5 MCG PO (08:36)
[2020-02-23] MEDS: 0.9% Saline Lock 10 ML Syringe IV (09:48)
[2020-02-23] MEDS: BETHANECHOL CHLORIDE 25 MG TABLET PO ×2 (09:52→21:35)
[2020-02-23] MEDS: APIXABAN 2.5 MG TABLET PO ×2 (09:52→21:36)
[2020-02-23] MEDS: Lisinopril 2.5 MG Tablet PO (09:52)
[2020-02-23] MEDS: Metoprolol Tartrate 50 MG Tablet PO ×2 (09:53→21:36)
--- NOTE | 2020-02-23 10:53 | PCM.PROGNOTE ---
Patient Problems: Active and Suspected Problems (Last Reviewed 08/27/19 @ 05:[address] Blair Ochoa MD) Cellulitis of left lower extremity (Acute) Non-healing wound of lower extremity (Acute) Anasarca (Acute) Atrial fibrillation with RVR (Acute) Subjective: Patient seen and examined. Continues to report improvement in lower extremity and abdominal swelling. Shortness of breath improved as well. Oxygen stable on room air. - Physical Exam Vitals/I&O's: Vital Signs Temp Pulse Resp BP Pulse Ox 97.9 F 80 18 115/60 985 02/23/20 09:47 02/23/20 09:53 02/23/20 09:47 02/23/20 09:53 02/23/20 09:47 Oxygen Flow Rate (L/min) 2 Oxygen Delivery Method Room Air Weight: 216 lb 0.848 oz Body Mass Index (BMI) 37.6 Finger Stick Blood Glucose 143 Intake and Output for Last 24 Hours 02/21/20 02/22/20 02/23/20 23:59 23:59 23:59 Intake Total 1480.69 / 1480.69 890 / 890 92.57 / 92.57 Output Total 4700 / 4700 3100 / 4100 1300 / 1300 Balance -3219.31 / -3219.31 -2210 / -3210 -1207.43 / -1207.43 General: Alert, Oriented x3, Cooperative HEENT: Atraumatic, PERRLA, EOMI, Normocephalic Neck: Supple, No JVD, Negative Carotid Bruits Lungs: Clear to auscultation, Diminished Cardiovascular: - - Atrial fibrillation, rate controlled Abdomen: Bowel Sounds Present, Soft, Non Tender, Non-Distended Extremities: No clubbing, No cyanosis, - - Edema - Bilateral lower extremities, Serafin wraps in place Skin: - - Bilateral lower extremity ulcerations with left lower extremity redness. Bilateral elbow tophi, left greater than right. Musculoskeletal: No Tenderness to Palpation of Joints or Extremities Neurological: Cranial nerves II-XII grossly intact, Neuro grossly intact Psych/Mental Status: Normal Affect, Appropriate Microbiology Past 72 Hours 02/19/20 14:25 Blood Culture (Wb) - Anticubital Right Blood Culture - Preliminary No growth in 48 hours. 02/19/20 14:20 Blood Culture (Wb) - Right Hand Blood Culture - Preliminary No growth in 48 hours. 02/19/20 18:36 Urine, Clean Catch Urine Culture - Final Culture exhibits no growth. Laboratory Results 02/22/20 04:58: Magnesium 2.1 02/22/20 16:03: POC Glucose 92 02/22/20 21:32: POC Glucose 124 H 02/23/20 05:35: WBC 5.4, RBC 3.92 L, Hgb 11.9 L, Hct 39.1 L, MCV 99.7 H, MCH 30.4, MCHC 30.4 L, RDW Std Deviation 60.3 H, RDW Coeff of Francis 16.4 H, Plt Count 167, MPV 11.4 02/23/20 05:35: Sodium 141, Potassium 3.3 L, Chloride 102, Carbon Dioxide 33.0 H, Anion Gap 6, BUN 26 H, Creatinine 1.84 H, Estim Creat Clear Calc 29.86, Est GFR (MDRD) Af Amer 46 L, Est GFR (MDRD) Non-Af 38 L, BUN/Creatinine Ratio 14.1, Glucose 92, Calcium 9.0, Magnesium 2.0 02/23/20 06:19: POC Glucose 90 Current Medications Allopurinol (Allopurinol 300 Mg Tablet) 300 mg PO DAILY@0800 [facility] Last Admin: 02/23/20 08:35 Dose: 300 mg Documented by: Amiodarone HCl (Amiodarone 200 Mg Tablet) 200 mg PO DAILY@0800 [facility] Last Admin: 02/23/20 08:35 Dose: 200 mg Documented by: Apixaban (Apixaban 2.5 Mg Tablet) 2.5 mg PO BID [facility] Last Admin: 02/23/20 09:52 Dose: 2.5 mg Documented by: Bethanechol Chloride (Bethanechol Chloride 25 Mg Tablet) 25 mg PO BID [facility] Last Admin: 02/23/20 09:52 Dose: 25 mg Documented by: Calcitriol (Calcitriol 0.25 Mcg Capsule) 0.25 mcg PO DINNER [facility] Last Admin: 02/22/20 16:05 Dose: 0.25 mcg Documented by: Calcitriol (Calcitriol 0.25 Mcg Capsule) 0.5 mcg PO BREAKFAST [facility] Last Admin: 02/23/20 08:36 Dose: 0.5 mcg Documented by: Colchicine (Colchicine 0.6 Mg Tablet) 0.6 mg PO QODAY@1000 [facility] Last Admin: 02/22/20 09:07 Dose: 0.6 mg Documented by: Doxazosin Mesylate (Doxazosin 1 Mg Tablet) 2 mg PO QHS [facility] Last Admin: 02/22/20 21:40 Dose: 2 mg Documented by: Ergocalciferol (Ergocalciferol 50,000 Unit Capsule) 50,000 unit PO QMONTH@1000 [facility] Finasteride (Finasteride 5 Mg Tablet) 5 mg PO QHS [facility] Last Admin: 02/22/20 21:37 Dose: 5 mg Documented by: Furosemide 500 mg/ N/A 50 mls @ 1 mls/hr CONT INF .Q50H [facility]; Protocol Last Admin: 02/23/20 07:16 Dose: 1 mls/hr Documented by: Ceftriaxone Sodium 2 gm/ (Sodium Chloride) 50 mls @ 100 mls/hr IV Q24 [facility] Last Infusion: 02/23/20 10:20 Dose: Infused Documented by: Insulin Human Lispro (Insulin Lispro 100 Unit/Ml Insuln.Pen) 0 unit SC ACHS [facility]; Protocol Last Admin: 02/23/20 06:54 Dose: Not Given Documented by: Levothyroxine Sodium (Levothyroxine 25 Mcg Tablet) 25 mcg PO DAILY@0600 [facility] Last Admin: 02/23/20 06:09 Dose: 25 mcg Documented by: Lisinopril (Lisinopril 2.5 Mg Tablet) 2.5 mg PO DAILY [facility] Last Admin: 02/23/20 09:52 Dose: 2.5 mg Documented by: Metoprolol Tartrate (Metoprolol Tartrate 50 Mg Tablet) 50 mg PO BID [facility] Last Admin: 02/23/20 09:53 Dose: 50 mg Documented by: Nitroglycerin (Nitroglycerin (Inpatient Use) 0.4 Mg Tab.Subl) 0.4 mg SUBLINGUAL Q5M PRN PRN Reason: CARDIAC/CHEST PAIN Ondansetron HCl (Ondansetron 4 Mg/2 Ml Vial) 4 mg IV Q8H PRN PRN PRN Reason: NAUSEA/VOMITING Potassium Chloride (Potassium Chloride 20 Meq Tablet) [facility] Sodium Chloride (0.9% Saline Lock 10 Ml Syringe) 10 - 40 ml IV UD PRN PRN Reason: SALINE FLUSH Last Admin: 02/23/20 09:48 Dose: 10 ml Documented by: Medical Necessity - Tobacco Use Smoking Status: Former smoker Tobacco Use: Cigarettes Assessment/Plan All Active Problems (Last Reviewed 08/27/19 @ 05:[address] Blair Ochoa MD) Cellulitis of both lower extremities (Acute) Nonhealing ulcer of right lower extremity with fat layer exposed (Acute) Nonhealing ulcer of left lower extremity with fat layer exposed (Acute) Cellulitis of left lower extremity (Acute) Non-healing wound of lower extremity (Acute) Anasarca (Acute) Atrial fibrillation with RVR (Acute) 1. Acute hypoxic respiratory insufficiency secondary to acute on chronic heart failure with reduced ejection fraction-BNP 1939. Chest x-ray consistent with mild CHF. Echocardiogram demonstrates an EF of 35%, mild tricuspid valve insufficiency, mild to moderate mitral valve insufficiency, pulmonary artery systolic pressure 50 mmHg. Continue Lasix drip. Strict I&O. Daily weight. -18 pounds. Continue supplement oxygen to maintain O2 at or above 90%. Walking pulse ox prior to discharge. Patient does use supplemental oxygen at nighttime only due to AUDRA. Potassium supplementation increased. 2. Atrial fibrillation with RVR-rate currently controlled. Continue Eliquis. Cardizem drip discontinued. Continue oral metoprolol, amiodarone. 3. Left lower extremity cellulitis- Blood cultures negative. Redness improving. Afebrile, no leukocytosis. Patient has multiple superficial abrasions bilateral lower extremities. Continue dressing changes per wound RN. Continue outpatient follow-up with wound center. Serafin wraps bilateral lower extremities. DC IV Rocephin. Based on wound cultures from left lower extremity wound 02/15/2020 which grew Klebsiella, Proteus and staph, will transition to oral Levaquin which covers all organisms based on sensitivities. 4. Chronic kidney disease stage IV-stable, trend BMP. 5. Hypertension-stable, continue current regimen. 6. Type 2 diabetes lyvuzoki-Mzke-Qckti with sliding scale insulin. 7. AUDRA-nightly supplemental oxygen. 8. CAD with history of CABG/ischemic cardiomyopathy-continue medical management. 9. Hypothyroidism-continue Synthroid regimen. 10. BPH-continue Proscar, bethanechol. 11. 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 Patient denies pain. DVT prophylaxis-Eliquis. This patient was seen by TARIQ Walker under the supervision of Dr. Sood.
[2020-02-23 11:11] LABS: Bedside Glucose 222 mg/dL (70-110)
[2020-02-23] MEDS: Insulin Lispro 100 UNIT/ML INSULN.PEN SC (11:12)
[2020-02-23 12:30] LABS: Bedside Glucose 143 mg/dL (70-110)
[2020-02-23] MEDS: levoFLOXacin 500 MG Tablet PO (14:08)
[2020-02-23] MEDS: Calcitriol 0.25 MCG Capsule PO (16:25)
[2020-02-23 16:30] LABS: Bedside Glucose 76 mg/dL (70-110)
--- NOTE | 2020-02-23 20:22 | NURSING ---
This RN into pt room at this time to do assessment and VS. Pt requests this RN come back after 21:00 because he is watching something on TV.
[2020-02-23] MEDS: Doxazosin 1 MG Tablet 2 MG PO (21:36)
[2020-02-23] MEDS: Finasteride 5 MG Tablet PO (21:36)
[2020-02-24] VITALS (10 sets, daily range): BP systolic 101–110; BP diastolic 62–78; PULSE 62–114; RESP 15–18; TEMP 36.3–36.4; O2SAT 94–98
[2020-02-24 00:16] LABS: Bedside Glucose 99 mg/dL (70-110)
[2020-02-24] MEDS: Levothyroxine 25 MCG TABLET PO (06:15)
[2020-02-24] MEDS: Metoprolol Tartrate 50 MG Tablet PO ×2 (09:15→20:36)
[2020-02-24] MEDS: BETHANECHOL CHLORIDE 25 MG TABLET PO ×2 (09:15→20:37)
[2020-02-24] MEDS: levoFLOXacin 250 MG Tablet PO (09:15)
[2020-02-24] MEDS: Calcitriol 0.25 MCG Capsule 0.5 MCG PO (09:15)
[2020-02-24] MEDS: Lisinopril 2.5 MG Tablet PO (09:15)
[2020-02-24] MEDS: Allopurinol 300 MG Tablet PO (09:15)
[2020-02-24] MEDS: Amiodarone 200 MG Tablet PO (09:16)
[2020-02-24] MEDS: APIXABAN 2.5 MG TABLET PO ×2 (09:16→20:37)
--- NOTE | 2020-02-24 09:55 | US_ITS ---
STUDY: ABDOMINAL ULTRASOUND - LIMITED REASON FOR VISIT: Male, 79 years old EVALUATION FOR ASCITES ONLY TECHNIQUE: Ultrasound evaluation of the abdomen was performed to evaluate for ascites. TECHNICAL QUALITY: Adequate. COMPARISON: 10/09/2019 FINDINGS: Targeted sonographic evaluation of all 4 quadrants of the abdomen was performed to assess for ascites. No significant fluid collection is identified. US/Abdomen Limited IMPRESSION: No sonographic evidence of ascites is demonstrated within the abdomen. Electronically Signed: Vito Stuart, at 16:37 EST Tel , Service support ,
--- NOTE | 2020-02-24 10:19 | PN.CARD_ITS ---
Subjectve: Elderly gentleman in no distress participating in his daily exercise routine. Objective: Vital Signs Temp Pulse Resp BP Pulse Ox 97.6 F L 65 18 108/65 94 02/24/20 09:15 02/24/20 09:15 02/24/20 09:15 02/24/20 09:15 02/24/20 09:15 Oxygen Flow Rate (L/min) 2 Oxygen Delivery Method Room Air Weight: 212 lb 4.882 oz Body Mass Index (BMI) 37.6 Finger Stick Blood Glucose 143 Intake and Output for Last 24 Hours 02/22/20 02/23/20 02/24/20 23:59 23:59 23:59 Intake Total 890 / 890 1032.57 / 1032.57 30 / 30 Output Total 3100 / 4100 5425 / 5425 550 / 550 Balance -2210 / -3210 -4392.43 / -4392.43 -520 / -520 General: Awake, Alert, Oriented x 3 HEENT: PERRL, EOMI, Sclera Non Icteric Neck: Supple, Good ROM, No Lymph Node Enlargement Lungs: Diminished Rolo Bases Cardiovascular: Irregular Rhythm, Normal S1, Normal S2, No Murmurs, No Rubs, No Gallops Vascular: No Carotid Bruits, Normal Femoral Pulses, Normal Radial Pulses, Normal Dorsalis Pedal Pulse, Normal Posterior Tibial Pulses Abdomen: Bowel Sounds Present, Soft, Non Tender, No HSM, Distended, Ascites Extremities: No Cyanosis, No Clubbing, Bilateral Edema +2 Musculoskeletal: No Erythema Skin: Ulcers Neurological: No Focal Motor or Sensory Deficit Rhythm: EKG: ECHO: Stress Test: Cardiac Cath: PCI: CT Surgery: Holter monitor: EPS: PPM: CXR: Chest CT Scan: Medical Necessity - Tobacco Use Smoking Status: Former smoker Tobacco Use: Cigarettes Assessment/Plan 1. Atrial fibrillation with rapid ventricular response rate. * Patient presents with atrial fibrillation with rapid ventricular response rate. It is not clear whether he has been very compliant with his medications. * He has been switched to oral beta-evelin and appears to be tolerating this well. * He will continue with his amiodarone. * He will continue with Eliquis at the same dose. * At this time he probably will be relegated to rate control. I do not think that he is a candidate for ablation at this time. 2. Congestive heart failure with reduced ejection fraction * He appears to have developed recurrent congestive heart failure with reduced ejection fraction. The exact precipitating event is not clear at this time. * It may be related to diuretic resistance or dietary indiscretion. 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 We will repeat his echocardiogram when his rate is better controlled. If it is still reduced then he may be considered a candidate for an implantable defibrillator. * He has diuresed significantly. However he still has a large abdomen and I would recommend that we obtain an abdominal ultrasound to exclude significant ascites. If he does have ascites he may be a candidate for a paracentesis before he is discharged. * Above discussed with nurse practitioner. 3. Hypertension * Blood pressure under good control at this particular time * 4. Coronary artery disease * Patient is status post coronary artery bypass surgery. I do not have any indication that at this time that this is definitively secondary to further coronary ischemia. * Echocardiographic findings demonstrate no segmental wall motion abnormalities present * * * Thank you for allowing me to participate in the care of your patient. Please don't hesitate to call if any issues arise. It appears he still needs to stay in for intravenous diuresis on the same regimen. * He should be encouraged to sit in chair.
[2020-02-24 11:20] LABS: Bedside Glucose 90 mg/dL (70-110)
[2020-02-24 11:25] LABS: Bedside Glucose 141 mg/dL (70-110)
[2020-02-24 13:10] LABS: Hematocrit 40.9 % (40-54); Hemoglobin 12.5 g/dL (13.0-16.5); Mean Corp Hgb Conc 30.6 g/dL (32-36); Mean Corpuscular Hgb 30.3 pg (27.0-32.0); Mean Platelet Vol. 11.1 fl (6.2-12.0); Platelet Count 188 K/mm3 (150-450); RBC Distribution Width CV 16.2 % (11.6-14.6); RBC Distribution Width SD 59.3 fl (35.1-43.9); Red Blood Count 4.13 M/mm3 (4.6-6.2); White Blood Count 6.2 K/mm3 (4.4-11.0)
[2020-02-24 13:27] LABS: Hemoglobin A1c 5.7 % (3.8-5.6)
[2020-02-24 13:40] LABS: Anion Gap 4 (5-15); BUN 25 mg/dL (7-18); BUN/Creat Ratio 11.7 RATIO (10-20); Calcium,Total 9.4 mg/dL (8.5-10.1); Chloride 100 mmol/L (98-107); Creatinine, Serum 2.13 mg/dL (0.70-1.30); EST Glomerular Filtration Rate 32 mL/min (>60); Est Glom Filt Rate - Afr Amer 39 mL/min (>60); Estimated Creatinine Clearance 25.79 ml/min; Glucose 116 mg/dL (74-106); Magnesium 2.1 mg/dL (1.6-2.6); Potassium 3.8 mmol/L (3.5-5.1); Sodium Level 141 mmol/L (136-145)
--- NOTE | 2020-02-24 13:50 | PCM.PROGNOTE ---
Patient Problems: Active and Suspected Problems (Last Reviewed 08/27/19 @ 05:[address] Blair Ochoa MD) Cellulitis of left lower extremity (Acute) Non-healing wound of lower extremity (Acute) Anasarca (Acute) Atrial fibrillation with RVR (Acute) Subjective: Patient seen and examined. No acute events overnight. Patient reports continued improvement of lower extremity swelling. Continues to have abdominal swelling although feels this is mildly improved as well. Denies shortness of breath. - Physical Exam Vitals/I&O's: Vital Signs Temp Pulse Resp BP Pulse Ox 97.6 F L 65 18 108/65 94 02/24/20 09:15 02/24/20 09:15 02/24/20 09:15 02/24/20 09:15 02/24/20 09:15 Oxygen Flow Rate (L/min) 2 Oxygen Delivery Method Room Air Weight: 212 lb 4.882 oz Body Mass Index (BMI) 37.6 Finger Stick Blood Glucose 143 Intake and Output for Last 24 Hours 02/22/20 02/23/20 02/24/20 23:59 23:59 23:59 Intake Total 890 / 890 1032.57 / 1032.57 270 / 270 Output Total 3100 / 4100 5425 / 5425 1200 / 1200 Balance -2210 / -3210 -4392.43 / -4392.43 -930 / -930 General: Alert, Oriented x3, Cooperative HEENT: Atraumatic, PERRLA, EOMI, Normocephalic Neck: Supple, No JVD, Negative Carotid Bruits Lungs: Clear to auscultation, Diminished Cardiovascular: - - Atrial fibrillation, rate controlled Abdomen: Bowel Sounds Present, Soft, Non Tender, Non-Distended Extremities: No clubbing, No cyanosis, Capillary Refill Less than 3 Seconds, Edema - Bilateral lower extremities, Serafin wraps in place. Ascites Skin: - - Bilateral lower extremity ulcerations with left lower extremity redness. Bilateral elbow tophi, left greater than right. Musculoskeletal: No Tenderness to Palpation of Joints or Extremities Neurological: Cranial nerves II-XII grossly intact, Neuro grossly intact Psych/Mental Status: Normal Affect, Appropriate Microbiology Past 72 Hours 02/19/20 14:25 Blood Culture (Wb) - Anticubital Right Blood Culture - Preliminary No growth in 48 hours. 02/19/20 14:20 Blood Culture (Wb) - Right Hand Blood Culture - Preliminary No growth in 48 hours. Laboratory Results 02/23/20 16:23: POC Glucose 76 02/23/20 21:32: POC Glucose 99 02/24/20 06:53: POC Glucose 90 02/24/20 11:19: POC Glucose 141 H 02/24/20 12:55: WBC 6.2, RBC 4.13 L, Hgb 12.5 L, Hct 40.9, MCV 99.0 H, MCH 30.3, MCHC 30.6 L, RDW Std Deviation 59.3 H, RDW Coeff of Frnacis 16.2 H, Plt Count 188, MPV 11.1 02/24/20 12:55: Sodium 141, Potassium 3.8, Chloride 100, Carbon Dioxide 37.0 H, Anion Gap 4 L, BUN 25 H, Creatinine 2.13 H, Estim Creat Clear Calc 25.79, Est GFR (MDRD) Af Amer 39 L, Est GFR (MDRD) Non-Af 32 L, BUN/Creatinine Ratio 11.7, Glucose 116 H, Calcium 9.4, Magnesium 2.1 02/24/20 12:55: Hemoglobin A1c 5.7 H Current Medications Allopurinol (Allopurinol 300 Mg Tablet) 300 mg PO DAILY@0800 [facility] Last Admin: 02/24/20 09:15 Dose: 300 mg Documented by: Amiodarone HCl (Amiodarone 200 Mg Tablet) 200 mg PO DAILY@0800 [facility] Last Admin: 02/24/20 09:16 Dose: 200 mg Documented by: Apixaban (Apixaban 2.5 Mg Tablet) 2.5 mg PO BID [facility] Last Admin: 02/24/20 09:16 Dose: 2.5 mg Documented by: Bethanechol Chloride (Bethanechol Chloride 25 Mg Tablet) 25 mg PO BID [facility] Last Admin: 02/24/20 09:15 Dose: 25 mg Documented by: Calcitriol (Calcitriol 0.25 Mcg Capsule) 0.25 mcg PO DINNER [facility] Last Admin: 02/23/20 16:25 Dose: 0.25 mcg Documented by: Calcitriol (Calcitriol 0.25 Mcg Capsule) 0.5 mcg PO BREAKFAST [facility] Last Admin: 02/24/20 09:15 Dose: 0.5 mcg Documented by: Colchicine (Colchicine 0.6 Mg Tablet) 0.6 mg PO QODAY@1000 [facility] Last Admin: 02/24/20 09:15 Dose: 0.6 mg Documented by: Doxazosin Mesylate (Doxazosin 1 Mg Tablet) 2 mg PO QHS [facility] Last Admin: 02/23/20 21:36 Dose: 2 mg Documented by: Ergocalciferol (Ergocalciferol 50,000 Unit Capsule) 50,000 unit PO QMONTH@1000 [facility] Finasteride (Finasteride 5 Mg Tablet) 5 mg PO QHS [facility] Last Admin: 02/23/20 21:36 Dose: 5 mg Documented by: Furosemide 500 mg/ N/A 50 mls @ 1 mls/hr CONT INF .Q50H [facility]; Protocol Last Admin: 02/23/20 07:16 Dose: 1 mls/hr Documented by: Levofloxacin (Levofloxacin 250 Mg Tablet) 250 mg PO DAILY [facility] Stop: 02/25/20 10:01 Last Admin: 02/24/20 09:15 Dose: 250 mg Documented by: Levothyroxine Sodium (Levothyroxine 25 Mcg Tablet) 25 mcg PO DAILY@0600 [facility] Last Admin: 02/24/20 06:15 Dose: 25 mcg Documented by: Lisinopril (Lisinopril 2.5 Mg Tablet) 2.5 mg PO DAILY [facility] Last Admin: 02/24/20 09:15 Dose: 2.5 mg Documented by: Metoprolol Tartrate (Metoprolol Tartrate 50 Mg Tablet) 50 mg PO BID [facility] Last Admin: 02/24/20 09:15 Dose: 50 mg Documented by: Nitroglycerin (Nitroglycerin (Inpatient Use) 0.4 Mg Tab.Subl) 0.4 mg SUBLINGUAL Q5M PRN PRN Reason: CARDIAC/CHEST PAIN Ondansetron HCl (Ondansetron 4 Mg/2 Ml Vial) 4 mg IV Q8H PRN PRN PRN Reason: NAUSEA/VOMITING Potassium Chloride (Potassium Ch[facility]ide 20 Meq Tablet) [facility] Last Admin: 02/24/20 09:16 Dose: 40 meq Documented by: Sodium Chloride (0.9% Saline Lock 10 Ml Syringe) 10 - 40 ml IV UD PRN PRN Reason: SALINE FLUSH Last Admin: 02/23/20 09:48 Dose: 10 ml Documented by: Medical Necessity - Tobacco Use Smoking Status: Former smoker Tobacco Use: Cigarettes Assessment/Plan All Active Problems (Last Reviewed 08/27/19 @ 05:[address] Blair Ochoa MD) Cellulitis of both lower extremities (Acute) Nonhealing ulcer of right lower extremity with fat layer exposed (Acute) Nonhealing ulcer of left lower extremity with fat layer exposed (Acute) Cellulitis of left lower extremity (Acute) Non-healing wound of lower extremity (Acute) Anasarca (Acute) Atrial fibrillation with RVR (Acute) 1. Acute hypoxic respiratory insufficiency secondary to acute on chronic heart failure with reduced ejection fraction-BNP 194. Chest x-ray consistent with mild CHF. Echocardiogram demonstrates an EF of 35%, mild tricuspid valve insufficiency, mild to moderate mitral valve insufficiency, pulmonary artery systolic pressure 50 mmHg. Continue Lasix drip. Strict I&O. Daily weight. -22 pounds. Continue supplement oxygen to maintain O2 at or above 90%. Walking pulse ox prior to discharge. Patient does use supplemental oxygen at nighttime only due to AUDRA. Abdominal ultrasound pending to evaluate if patient would benefit from paracentesis. 2. Atrial fibrillation with RVR-rate currently controlled. Continue Eliquis. Cardizem drip discontinued. Continue oral metoprolol, amiodarone. 3. Left lower extremity cellulitis- Blood cultures negative. Redness improving. Afebrile, no leukocytosis. Patient has multiple superficial abrasions bilateral lower extremities. Continue dressing changes per wound RN. Continue outpatient follow-up with wound center. Serafin wraps bilateral lower extremities. DC IV Rocephin. Based on wound cultures from left lower extremity wound 02/15/2020 which grew Klebsiella, Proteus and staph, will transition to oral Levaquin which covers all organisms based on sensitivities. 4. Chronic kidney disease stage IV-stable, trend BMP. 5. Hypertension-stable, continue current regimen. 6. Type 2 diabetes [id number] with sliding scale insulin. 7. AUDRA-nightly supplemental oxygen. 8. CAD with history of CABG/ischemic cardiomyopathy-continue medical management. 9. Hypothyroidism-continue Synthroid regimen. 10. BPH-continue Proscar, bethanechol. 11. 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 Patient denies pain. DVT prophylaxis-Eliquis. This patient was seen by TARIQ Walker under the supervision of Dr. Sood.
[2020-02-24] MEDS: Calcitriol 0.25 MCG Capsule PO (16:54)
[2020-02-24] MEDS: Finasteride 5 MG Tablet PO (20:37)
[2020-02-24] MEDS: Doxazosin 1 MG Tablet 2 MG PO (20:37)
[2020-02-25] VITALS (11 sets, daily range): BP systolic 97–106; BP diastolic 56–66; PULSE 68–118; RESP 15–16; TEMP 36.2–36.6; O2SAT 92–100
[2020-02-25 05:06] LABS: Anion Gap 5 (5-15); BUN 28 mg/dL (7-18); BUN/Creat Ratio 12.6 RATIO (10-20); Calcium,Total 8.9 mg/dL (8.5-10.1); Chloride 101 mmol/L (98-107); Creatinine, Serum 2.22 mg/dL (0.70-1.30); EST Glomerular Filtration Rate 31 mL/min (>60); Est Glom Filt Rate - Afr Amer 37 mL/min (>60); Estimated Creatinine Clearance 24.75 ml/min; Glucose 94 mg/dL (74-106); Potassium 3.8 mmol/L (3.5-5.1); Sodium Level 142 mmol/L (136-145)
[2020-02-25] MEDS: Levothyroxine 25 MCG TABLET PO (05:23)
[2020-02-25] MEDS: Furosemide 500 MG in Empty Viaflex 50 mL 1 EACH CONT INF (06:24)
--- NOTE | 2020-02-25 08:44 | PN.CARD_ITS ---
Subjectve: Patient seen and evaluated. Appears to be doing much better. Has lost over 20 pounds in weight Objective: Vital Signs Temp Pulse Resp BP Pulse Ox 97.8 F 95 16 106/56 L 95 02/25/20 03:05 02/25/20 07:02 02/25/20 03:05 02/25/20 03:05 02/25/20 07:23 Oxygen Flow Rate (L/min) 2 Oxygen Delivery Method Nasal Cannula Weight: 212 lb 4.882 oz Body Mass Index (BMI) 37.6 Finger Stick Blood Glucose 143 Intake and Output for Last 24 Hours 02/23/20 02/24/20 02/25/20 23:59 23:59 23:59 Intake Total 1032.57 / 1032.57 770 / 820 97.13 / 97.13 Output Total 5425 / 5425 1900 / 2800 1475 / 1475 Balance -4392.43 / -4392.43 -1130 / -1980 -1377.87 / -1377.87 General: Awake, Alert, Oriented x 3 HEENT: PERRL, EOMI, Sclera Non Icteric Neck: Supple, Good ROM, No Lymph Node Enlargement Lungs: Diminished Rolo Bases Cardiovascular: Irregular Rhythm, Normal S1, Normal S2, No Murmurs, No Rubs, No Gallops Vascular: No Carotid Bruits, Normal Femoral Pulses, Normal Radial Pulses, Normal Dorsalis Pedal Pulse, Normal Posterior Tibial Pulses Abdomen: Bowel Sounds Present, Soft, Non Tender, No HSM, No Organomegaly, Distended Extremities: No Cyanosis, No Clubbing, Bilateral Edema +1 Neurological: No Focal Motor or Sensory Deficit 02/24/20 12:55: WBC 6.2, RBC 4.13 L, Hgb 12.5 L, Hct 40.9, MCV 99.0 H, MCH 30.3, MCHC 30.6 L, Plt Count 188, MPV 11.1 02/24/20 12:55: Sodium 141, Potassium 3.8, Chloride 100, Carbon Dioxide 37.0 H, Anion Gap 4 L, BUN 25 H, Creatinine 2.13 H, Est GFR (MDRD) Af Amer 39 L, Est GFR (MDRD) Non-Af 32 L, BUN/Creatinine Ratio 11.7, Glucose 116 H, Calcium 9.4, Magnesium 2.1 02/24/20 12:55: Hemoglobin A1c 5.7 H 02/25/20 04:30: Sodium 142, Potassium 3.8, Chloride 101, Carbon Dioxide 36.0 H, Anion Gap 5, BUN 28 H, Creatinine 2.22 H, Est GFR (MDRD) Af Amer 37 L, Est GFR (MDRD) Non-Af 31 L, BUN/Creatinine Ratio 12.6, Glucose 94, Calcium 8.9 Rhythm: EKG: ECHO: Stress Test: Cardiac Cath: PCI: CT Surgery: Holter monitor: EPS: PPM: CXR: Chest CT Scan: Medical Necessity - Tobacco Use Smoking Status: Former smoker Tobacco Use: Cigarettes Assessment/Plan 1. Atrial fibrillation with rapid ventricular response rate. * Patient presents with atrial fibrillation with rapid ventricular response rate. It is not clear whether he has been very compliant with his medications. * He has been switched to oral beta-evelin and appears to be tolerating this well. * He will continue with his amiodarone. * He will continue with Eliquis at the same dose. * At this time he probably will be relegated to rate control. I do not think that he is a candidate for ablation at this time. 2. Congestive heart failure with reduced ejection fraction * He appears to have developed recurrent congestive heart failure with reduced ejection fraction. The exact precipitating event is not clear at this time. * It may be related to diuretic resistance or dietary indiscretion. * Echocardiogram done demonstrated globally reduced ejection fraction estimated at 35% * Continue diuresis orally at this time. 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 We will repeat his echocardiogram when his rate is better controlled. If it is still reduced then he may be considered a candidate for an implantable defibrillator. * He has diuresed significantly. * Above discussed with nurse practitioner. 3. Hypertension * Blood pressure under good control at this particular time * 4. Coronary artery disease * Patient is status post coronary artery bypass surgery. I do not have any indication that at this time that this is definitively secondary to further coronary ischemia. * Echocardiographic findings demonstrate no segmental wall motion abnormalities present * * * Thank you for allowing me to participate in the care of your patient. Please don't hesitate to call if any issues arise. It appears he still needs to stay in for intravenous diuresis on the same regimen. * He should be encouraged to sit in chair. In 6 months
[2020-02-25] MEDS: 0.9% Saline Lock 10 ML Syringe IV (09:22)
[2020-02-25] MEDS: Amiodarone 200 MG Tablet PO (09:27)
[2020-02-25] MEDS: Allopurinol 300 MG Tablet PO (09:27)
[2020-02-25] MEDS: BETHANECHOL CHLORIDE 25 MG TABLET PO ×2 (09:27→21:18)
[2020-02-25] MEDS: Lisinopril 2.5 MG Tablet PO (09:27)
[2020-02-25] MEDS: APIXABAN 2.5 MG TABLET PO ×2 (09:28→21:18)
[2020-02-25] MEDS: Calcitriol 0.25 MCG Capsule 0.5 MCG PO (09:28)
[2020-02-25] MEDS: Metoprolol Tartrate 50 MG Tablet PO ×2 (09:28→21:18)
[2020-02-25] MEDS: levoFLOXacin 250 MG Tablet PO (09:30)
[2020-02-25] MEDS: Furosemide 20 MG Tablet 60 MG PO ×2 (09:32→17:08)
--- NOTE | 2020-02-25 11:21 | PN_ITS ---
Patient Problems: Active and Suspected Problems (Last Reviewed 08/27/19 @ 05:[address] Blair Ochoa MD) Cellulitis of left lower extremity (Acute) Non-healing wound of lower extremity (Acute) Anasarca (Acute) Atrial fibrillation with RVR (Acute) Subjective: Patient seen and examined. Feeling well. No acute events overnight. -30 pounds since admission. - Physical Exam Vitals/I&O's: Vital Signs Temp Pulse Resp BP Pulse Ox 97.3 F L 86 15 102/66 98 02/25/20 09:17 02/25/20 09:28 02/25/20 09:17 02/25/20 09:17 02/25/20 09:17 Oxygen Flow Rate (L/min) 2 Oxygen Delivery Method Room Air Weight: 204 lb 12.951 oz Body Mass Index (BMI) 37.6 Finger Stick Blood Glucose 143 Intake and Output for Last 24 Hours 02/23/20 02/24/20 02/25/20 23:59 23:59 23:59 Intake Total 1032.57 / 1032.57 770 / 820 97.13 / 97.13 Output Total 5425 / 5425 1900 / 2800 1475 / 1475 Balance -4392.43 / -4392.43 -1130 / -1980 -1377.87 / -1377.87 General: Alert, Oriented x3, Cooperative HEENT: Atraumatic, PERRLA, EOMI, Normocephalic Neck: Supple, No JVD, Negative Carotid Bruits Lungs: Clear to auscultation, Diminished Cardiovascular: - - Atrial fibrillation, rate controlled Abdomen: Bowel Sounds Present, Soft, Non Tender, Non-Distended, Obese Extremities: No clubbing, No cyanosis, Capillary Refill Less than 3 Seconds, Edema - Bilateral lower extremities significantly improved, Serafin wraps in place Skin: - - Bilateral lower extremity ulcerations with left lower extremity redness. Bilateral elbow tophi, left greater than right. Musculoskeletal: No Tenderness to Palpation of Joints or Extremities Neurological: Cranial nerves II-XII grossly intact, Neuro grossly intact Psych/Mental Status: Normal Affect, Appropriate Microbiology Past 72 Hours 02/19/20 14:25 Blood Culture (Wb) - Anticubital Right Blood Culture - Final No growth in 5 days. 02/19/20 14:20 Blood Culture (Wb) - Right Hand Blood Culture - Final No growth in 5 days. Laboratory Results 02/24/20 11:19: POC Glucose 141 H 02/24/20 12:55: WBC 6.2, RBC 4.13 L, Hgb 12.5 L, Hct 40.9, MCV 99.0 H, MCH 30.3, MCHC 30.6 L, RDW Std Deviation 59.3 H, RDW Coeff of Francis 16.2 H, Plt Count 188, MPV 11.1 02/24/20 12:55: Sodium 141, Potassium 3.8, Chloride 100, Carbon Dioxide 37.0 H, Anion Gap 4 L, BUN 25 H, Creatinine 2.13 H, Estim Creat Clear Calc 25.79, Est GFR (MDRD) Af Amer 39 L, Est GFR (MDRD) Non-Af 32 L, BUN/Creatinine Ratio 11.7, Glucose 116 H, Calcium 9.4, Magnesium 2.1 02/24/20 12:55: Hemoglobin A1c 5.7 H 02/25/20 04:30: Sodium 142, Potassium 3.8, Chloride 101, Carbon Dioxide 36.0 H, Anion Gap 5, BUN 28 H, Creatinine 2.22 H, Estim Creat Clear Calc 24.75, Est GFR (MDRD) Af Amer 37 L, Est GFR (MDRD) Non-Af 31 L, BUN/Creatinine Ratio 12.6, Glucose 94, Calcium 8.9 Current Medications Allopurinol (Allopurinol 300 Mg Tablet) 300 mg PO DAILY@0800 [facility] Last Admin: 02/25/20 09:27 Dose: 300 mg Documented by: Amiodarone HCl (Amiodarone 200 Mg Tablet) 200 mg PO DAILY@0800 [facility] Last Admin: 02/25/20 09:27 Dose: 200 mg Documented by: Apixaban (Apixaban 2.5 Mg Tablet) 2.5 mg PO BID [facility] Last Admin: 02/25/20 09:28 Dose: 2.5 mg Documented by: Bethanechol Chloride (Bethanechol Chloride 25 Mg Tablet) 25 mg PO BID [facility] Last Admin: 02/25/20 09:27 Dose: 25 mg Documented by: Calcitriol (Calcitriol 0.25 Mcg Capsule) 0.25 mcg PO DINNER [facility] Last Admin: 02/24/20 16:54 Dose: 0.25 mcg Documented by: Calcitriol (Calcitriol 0.25 Mcg Capsule) 0.5 mcg PO BREAKFAST [facility] Last Admin: 02/25/20 09:28 Dose: 0.5 mcg Documented by: Colchicine (Colchicine 0.6 Mg Tablet) 0.6 mg PO QODAY@1000 [facility] Last Admin: 02/24/20 09:15 Dose: 0.6 mg Documented by: Doxazosin Mesylate (Doxazosin 1 Mg Tablet) 2 mg PO QHS [facility] Last Admin: 02/24/20 20:37 Dose: 2 mg Documented by: Ergocalciferol (Ergocalciferol 50,000 Unit Capsule) 50,000 unit PO QMONTH@1000 [facility] Finasteride (Finasteride 5 Mg Tablet) 5 mg PO QHS [facility] Last Admin: 02/24/20 20:37 Dose: 5 mg Documented by: Furosemide (Furosemide 20 Mg Tablet) 60 mg PO BID@1000,1800 [facility] Last Admin: 02/25/20 09:32 Dose: 60 mg Documented by: Levothyroxine Sodium (Levothyroxine 25 Mcg Tablet) 25 mcg PO DAILY@0600 [facility] Last Admin: 02/25/20 05:23 Dose: 25 mcg Documented by: Lisinopril (Lisinopril 2.5 Mg Tablet) 2.5 mg PO DAILY [facility] Last Admin: 02/25/20 09:27 Dose: 2.5 mg Documented by: Metoprolol Tartrate (Metoprolol Tartrate 50 Mg Tablet) 50 mg PO BID [facility] Last Admin: 02/25/20 09:28 Dose: 50 mg Documented by: Nitroglycerin (Nitroglycerin (Inpatient Use) 0.4 Mg Tab.Subl) 0.4 mg SUBLINGUAL Q5M PRN PRN Reason: CARDIAC/CHEST PAIN Ondansetron HCl (Ondansetron 4 Mg/2 Ml Vial) 4 mg IV Q8H PRN PRN PRN Reason: NAUSEA/VOMITING Potassium Chloride ([facility] Admin: 02/25/20 09:27 Dose: 40 meq Documented by: Sodium Chloride (0.9% Saline Lock 10 Ml Syringe) 10 - 40 ml IV UD PRN PRN Reason: SALINE FLUSH Last Admin: 02/25/20 09:22 Dose: 10 ml Documented by: Medical Necessity - Tobacco Use Smoking Status: Former smoker Tobacco Use: Cigarettes Assessment/Plan All Active Problems (Last Reviewed 08/27/19 @ 05:[address] Blair Ochoa MD) Cellulitis of both lower extremities (Acute) Nonhealing ulcer of right lower extremity with fat layer exposed (Acute) Nonhealing ulcer of left lower extremity with fat layer exposed (Acute) Cellulitis of left lower extremity (Acute) Non-healing wound of lower extremity (Acute) Anasarca (Acute) Atrial fibrillation with RVR (Acute) 1. Acute hypoxic respiratory insufficiency secondary to acute on chronic heart failure with reduced ejection fraction-BNP 1940. Chest x-ray consistent with mild CHF. Echocardiogram demonstrates an EF of 35%, mild tricuspid valve insufficiency, mild to moderate mitral valve insufficiency, pulmonary artery systolic pressure 50 mmHg. Strict I&O. Daily weight. -30 pounds. Lasix drip discontinued. Continue supplement oxygen to maintain O2 at or above 90%. Walking pulse ox prior to discharge. Patient does use supplemental oxygen at nighttime only due to AUDRA. Abdominal ultrasound showed no ascites. Transition to Lasix 60 mg twice daily. Anticipate discharge home tomorrow. 2. Atrial fibrillation with RVR-rate currently controlled. Continue Eliquis. Cardizem drip discontinued. Continue oral metoprolol, amiodarone. 3. Left lower extremity cellulitis- Blood cultures negative. Redness improving. Afebrile, no leukocytosis. Patient has multiple superficial abrasions bilateral lower extremities. Continue dressing changes per wound RN. Continue outpatient follow-up with wound center. Serafin wraps bilateral lower extremities. DC IV Rocephin. Based on wound cultures from left lower extremity wound 02/15/2020 which grew Klebsiella, Proteus and staph, will transition to oral Levaquin which covers all organisms based on sensitivities. 4. Chronic kidney disease stage IV-IV Lasix discontinued. Trend BMP. 5. Hypertension-stable, continue current regimen. 6. Type 2 diabetes mellitus-diet controlled. Hemoglobin A1c 5.7%. 7. AUDRA-nightly supplemental oxygen. 8. CAD with history of CABG/ischemic cardiomyopathy-continue medical management. 9. Hypothyroidism-continue Synthroid regimen. 10. BPH-continue Proscar, bethanechol. 11. 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 Patient denies pain. DVT prophylaxis-Eliquis. This patient was seen by TARIQ Walker under the supervision of Dr. Sood.
[2020-02-25] MEDS: Calcitriol 0.25 MCG Capsule PO (17:05)
[2020-02-25] MEDS: Doxazosin 1 MG Tablet 2 MG PO (21:18)
[2020-02-25] MEDS: Finasteride 5 MG Tablet PO (21:18)
[2020-02-26] VITALS (10 sets, daily range): BP systolic 92–100; BP diastolic 50–65; PULSE 77–116; RESP 18; TEMP 36.4–36.5; O2SAT 95–98
[2020-02-26 05:48] LABS: Anion Gap 6 (5-15); BUN 35 mg/dL (7-18); BUN/Creat Ratio 13.8 RATIO (10-20); Calcium,Total 9.5 mg/dL (8.5-10.1); Chloride 100 mmol/L (98-107); Creatinine, Serum 2.54 mg/dL (0.70-1.30); EST Glomerular Filtration Rate 26 mL/min (>60); Est Glom Filt Rate - Afr Amer 32 mL/min (>60); Estimated Creatinine Clearance 21.63 ml/min; Glucose 91 mg/dL (74-106); Potassium 3.8 mmol/L (3.5-5.1); Sodium Level 140 mmol/L (136-145)
[2020-02-26] MEDS: Levothyroxine 25 MCG TABLET PO (06:19)
--- NOTE | 2020-02-26 08:17 | PN.CARD_ITS ---
Subjectve: Patient seen and evaluated. Objective: Vital Signs Temp Pulse Resp BP Pulse Ox 97.5 F L 78 18 100/50 L 98 02/26/20 08:12 02/26/20 08:12 02/26/20 08:12 02/26/20 08:12 02/26/20 08:12 Oxygen Flow Rate (L/min) 2 Oxygen Delivery Method Nasal Cannula Weight: 204 lb 6.4 oz Body Mass Index (BMI) 37.6 Finger Stick Blood Glucose 143 Intake and Output for Last 24 Hours 02/24/20 02/25/20 02/26/20 23:59 23:59 23:59 Intake Total 770 / 820 517.13 / 517.13 Output Total 1900 / 2800 2450 / 2450 Balance -0 / -1979 -1931. / - General: Awake, Alert, Oriented x 3 HEENT: PERRL, EOMI, Sclera Non Icteric Neck: Supple, Good ROM, No Lymph Node Enlargement Lungs: Clear to auscultation Cardiovascular: Regular Rhythm, Normal S1, Normal S2, No Murmurs, No Rubs, No Gallops Vascular: No Carotid Bruits, Normal Femoral Pulses, Normal Radial Pulses, Normal Dorsalis Pedal Pulse, Normal Posterior Tibial Pulses Abdomen: Bowel Sounds Present, Soft, Non Tender, No HSM, No Organomegaly Extremities: No Cyanosis, No Clubbing, No edema Musculoskeletal: No Erythema Skin: No Rashes Neurological: No Focal Motor or Sensory Deficit Psych/Mental Status: Appropriate 02/26/20 04:35: Sodium 140, Potassium 3.8, Chloride 100, Carbon Dioxide 34.0 H, Anion Gap 6, BUN 35 H, Creatinine 2.54 H, Est GFR (MDRD) Af Amer 32 L, Est GFR (MDRD) Non-Af 26 L, BUN/Creatinine Ratio 13.8, Glucose 91, Calcium 9.5 Rhythm: EKG: ECHO: Stress Test: Cardiac Cath: PCI: CT Surgery: Holter monitor: EPS: PPM: CXR: Chest CT Scan: Medical Necessity - Tobacco Use Smoking Status: Former smoker Tobacco Use: Cigarettes Assessment/Plan 1. Atrial fibrillation with rapid ventricular response rate. * Patient presents with atrial fibrillation with rapid ventricular response rate. It is not clear whether he has been very compliant with his medications. * He has been switched to oral beta-evelin and appears to be tolerating this well. * He will continue with his amiodarone. * He will continue with Eliquis at the same dose. * At this time he probably will be relegated to rate control. I do not think that he is a candidate for ablation at this time. 2. Congestive heart failure with reduced ejection fraction * He appears to have developed recurrent congestive heart failure with reduced ejection fraction. The exact precipitating event is not clear at this time. * It may be related to diuretic resistance or dietary indiscretion. * Echocardiogram done demonstrated globally reduced ejection fraction estimated at 35% * Continue diuresis orally at this time. 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 We will repeat his echocardiogram when his rate is better controlled. If it is still reduced then he may be considered a candidate for an implantable defibrillator . * He has diuresed significantly. * Above discussed with nurse practitioner. 3. Hypertension * Blood pressure under good control at this particular time * 4. Coronary artery disease * Patient is status post coronary artery bypass surgery. I do not have any indication that at this time that this is definitively secondary to further coronary ischemia. * Echocardiographic findings demonstrate no segmental wall motion abnormalities present * * * Thank you for allowing me to participate in the care of your patient. Please don't hesitate to call if any issues arise. It appears that the rest of his management can be carried out as an outpatient. * He should be encouraged to sit in chair.
[2020-02-26] MEDS: Amiodarone 200 MG Tablet PO (08:21)
[2020-02-26] MEDS: Allopurinol 300 MG Tablet PO (08:21)
[2020-02-26] MEDS: Calcitriol 0.25 MCG Capsule 0.5 MCG PO (08:21)
[2020-02-26] MEDS: BETHANECHOL CHLORIDE 25 MG TABLET PO (09:28)
[2020-02-26] MEDS: APIXABAN 2.5 MG TABLET PO (09:28)
[2020-02-26] MEDS: Furosemide 20 MG Tablet 60 MG PO (09:33)
[2020-02-26] MEDS: Metoprolol Tartrate 50 MG Tablet PO (09:34)
--- NOTE | 2020-02-26 10:38 | PCM.DC ---
- Discharge Diagnoses Current Active Problems: Current Active and Chronic Problems (Last Reviewed 08/27/19 @ 05:[address] Blair Ochoa MD) CKD (chronic kidney disease) stage 4, GFR 15-29 ml/min (Chronic) Cellulitis of left lower extremity (Acute) Non-healing wound of lower extremity (Acute) Anasarca (Acute) CRF (chronic renal failure) (Chronic) Atrial fibrillation with RVR (Acute) Atherosclerosis of [place] coronary artery of [place] heart without angina pectoris (Chronic) CABG X 3: VILLEDA-LAD, SVG-LCx, SVG-RPDA 10/10/2003 Old inferior wall myocardial infarction (Chronic) Ischemic cardiomyopathy (Chronic) Longstanding persistent atrial fibrillation (Chronic) Acute on chronic systolic (congestive) heart failure (Chronic) 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 Report 2 pound weight gain in 1 day or 5 pound weight gain in 1 week to cardiology. Wash legs and feet daily with soap and water, pat dry. Place Adaptic to small open areas and cover with ABD pads. Wrap with Kerlix followed by Serafin wraps. Follow-up with wound center. Allergies/Adverse Reactions: Allergies hydrocodone [From Vicodin] Allergy (Severe, Verified 02/15/20 14:31) Rash aspirin Allergy (Intermediate, Verified 02/15/20 14:31) Swelling around eyes pseudoephedrine [From Sudafed] Adverse Reaction (Severe, Verified 02/15/20 14:31) Myalgias & flu like symptoms simvastatin [From Zocor] Adverse Reaction (Severe, Verified 02/15/20 14:31) Myalgias Sulfa (Sulfonamide Antibiotics) Adverse Reaction (Mild, Verified 02/15/20 14:31) Severe Pain in joints Medications to take at Discharge Finasteride [Proscar] 5 mg PO QHS 04/18/15 colchicine 0.6 mg tablet 0.6 mg PO QODAY tab 01/13/18 apixaban 2.5 mg tablet 2.5 mg PO BID #180 tab 01/31/19 Allopurinol 300 mg PO DAILY 02/17/19 Ergocalciferol [Vitamin D] 50,000 unit PO QMONTH 02/17/19 lisinopril 2.5 mg tablet 2.5 mg PO DAILY #90 tab 04/10/19 Amiodarone HCl [Cordarone] 200 mg PO DAILY 02/19/20 Bethanechol Chloride 25 mg PO BID 02/19/20 Calcitriol 0.25 mcg PO DINNER 02/19/20 Calcitriol [Rocaltrol] 0.5 mcg PO BREAKFAST 02/19/20 Levothyroxine Sodium [Synthroid] 25 mcg PO DAILY 02/19/20 Doxazosin Mesylate [Cardura] 2 mg PO QHS #60 tab 02/26/20 Furosemide [Lasix] 60 mg PO BID@1000,1800 #120 tab 02/26/20 Metoprolol Tartrate [Lopressor (beta evelin)] 50 mg PO BID #60 tab 02/26/20 Potassium Chloride [K-Dur] 40 meq PO BIDCM #120 tab 02/26/20 The following prescriptions were given: Doxazosin Mesylate [Cardura] 2 mg PO QHS #60 tab Transmission Status: Pending to [address] Potassium Chloride [K-Dur] 40 meq PO BIDCM #120 tab Transmission Status: Pending to [address] Furosemide [Lasix] 60 mg PO BID@1000,1800 #120 tab Transmission Status: Pending to [address] Metoprolol Tartrate [Lopressor (beta evelin)] 50 mg PO BID #60 tab Transmission Status: Pending to [address] Primary Care Physician: Vicki Trejo DO [Primary Care Provider] - Please follow up with your Primary Care Physician in: 1 Week Test Results: Test results from this visit will be discussed in further detail at your follow-up appointment, if applicable. Please Follow Up With: Jimi Greenfield MD When: As scheduled 03/05/2020 Please Follow Up With: Adam,Wound When: 1 Week Proposed Discharge Date: 02/26/20
--- NOTE | 2020-02-26 10:45 | PCM.DC.SUM ---
Discharge Date and Diagnosis - Problem List Patient Problems: Active and Suspected Problems (Last Reviewed 08/27/19 @ 05:[address] Blair Ochoa MD) Cellulitis of left lower extremity (Acute) Non-healing wound of lower extremity (Acute) Anasarca (Acute) Atrial fibrillation with RVR (Acute) Date of Admission: 02/19/20 Date of Discharge: 02/26/20 - Primary Discharge Diagnosis Acute Problems: Active Problems (Last Reviewed 08/27/19 @ 05:[address] Blair Ochoa MD) 1. Acute hypoxic respiratory insufficiency secondary to acute on chronic heart failure with reduced ejection fraction 2. Atrial fibrillation with RVR 3. Left lower extremity cellulitis 4. Chronic kidney disease stage IV 5. Hypertension 6. Type 2 diabetes mellitus 7. AUDRA 8. CAD with history of CABG/ischemic cardiomyopathy 9. Hypothyroidism 10. BPH 11. Left elbow tophi skin changes - Secondary Discharge Diagnosis Chronic Problems: Chronic Problems (Last Reviewed 08/27/19 @ 05:[address] Blair Ochoa MD) CKD (chronic kidney disease) stage 4, GFR 15-29 ml/min (Chronic) CRF (chronic renal failure) (Chronic) Paroxysmal atrial fibrillation (Chronic) DCCV on 02/27/2019; NSTEMI (non-ST elevated myocardial infarction) (Chronic) Atherosclerosis of [place] coronary artery of [place] heart without angina pectoris (Chronic) CABG X 3: VILLEDA-LAD, SVG-LCx, SVG-RPDA 10/10/2003 H/O coronary artery bypass surgery (Chronic 10/10/03) CABG X 3: VILLEDA-LAD, SVG-LCx, SVG-RPDA 10/10/2003 Old inferior wall myocardial infarction (Chronic) Ischemic cardiomyopathy (Chronic) Longstanding persistent atrial fibrillation (Chronic) Acute on chronic systolic (congestive) heart failure (Chronic) 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 Cardiomegaly. Mild degree of vascular congestion and CHF. Electronically Signed: Shahab Thrasher, at 15:37 EST , Service support , Abdomen Ultrasound 02/24/20 09:55 IMPRESSION: No sonographic evidence of ascites is demonstrated within the abdomen. Electronically Signed: Vito Stuart, at 16:37 EST Tel , Service support , Consultations 02/19/20 17:37 Consult: Onc/Wound/pulp tester Routine Comment: Dr. Greenfield- Cardiology Operations: None Procedures: 2-D Echocardiogram Summary of Care Provided: The patient is a 79 year old M admitted 02/19/2020 due to lower extremity swelling and abdominal swelling. 1. Acute hypoxic respiratory insufficiency secondary to acute on chronic heart failure with reduced ejection fraction-BNP 1940. Chest x-ray consistent with mild CHF. Echocardiogram demonstrates an EF of 35%, mild tricuspid valve insufficiency, mild to moderate mitral valve insufficiency, pulmonary artery systolic pressure 50 mmHg. -30 pounds during admission. Lasix drip discontinued. Home Lasix regimen increased to 60 mg twice daily. Abdominal ultrasound showed no ascites. Oxygen currently stable on room air. Will obtain walking pulse ox prior to discharge. Patient does use supplemental oxygen at nighttime only due to AUDRA. Patient has previously scheduled appointment with cardiology 03/05/2020. 2. Atrial fibrillation with RVR-rate currently controlled. Continue Eliquis. Cardizem drip discontinued. Continue oral metoprolol, amiodarone. Home metoprolol increased to 50 mg twice daily. 3. Left lower extremity cellulitis- Blood cultures negative. Patient has multiple superficial abrasions bilateral lower extremities. Continue dressing changes which includes washing legs and feet daily with soap and water, pat dry. Place Adaptic to small open areas and cover with ABD pads. Wrap with Kerlix followed by Serafin wraps from the base of the toes to just above the knees.. Continue outpatient follow-up with wound center in 1 week. Based on wound cultures from left lower extremity wound 02/15/2020 which grew Klebsiella, Proteus and staph, patient was transitioned from IV emetics to oral Levaquin to complete course. 4. Chronic kidney disease stage IV- recommend follow-up with nephrology as scheduled. 5. Hypertension-stable, continue current regimen. 6. Type 2 diabetes mellitus-diet controlled. Hemoglobin A1c 5.7%. 7. AUDRA-nightly supplemental oxygen. 8. CAD with history of CABG/ischemic cardiomyopathy-continue medical management. 9. Hypothyroidism-continue Synthroid regimen. 10. BPH-continue Proscar, bethanechol. 11. Bilateral elbow tophi skin changes, left greater than right-initially concerned for underlying cancerous skin changes however upon further examination as well as discussion regarding gout history, appears consistent with tophi related to gout. Patient denies pain. General: Alert, Oriented x3, Cooperative HEENT: Atraumatic, PERRLA, EOMI, Normocephalic Neck: Supple, No JVD, Negative Carotid Bruits Lungs: Clear to auscultation, Diminished Cardiovascular: - - Atrial fibrillation, rate controlled Abdomen: Bowel Sounds Present, Soft, Non Tender, Non-Distended, Obese Extremities: No clubbing, No cyanosis, Capillary Refill Less than 3 Seconds, Edema - Bilateral lower extremities significantly improved, Serafin wraps in place Skin: - - Bilateral lower extremity ulcerations with left lower extremity redness. Bilateral elbow tophi, left greater than right. Musculoskeletal: No Tenderness to Palpation of Joints or Extremities Neurological: Cranial nerves II-XII grossly intact, Neuro grossly intact Psych/Mental Status: Normal Affect, Appropriate Patient seen and examined prior to discharge. Physical assessment as noted above. Patient is stable for discharge with follow up recommendations as noted above. This patient was seen by TARIQ Walker under the supervision of Dr. Bunn. Patient Problems: Active and Suspected Problems (Last Reviewed 08/27/19 @ 05:[address] Blair Ochoa MD) Cellulitis of left lower extremity (Acute) Non-healing wound of lower extremity (Acute) Anasarca (Acute) Atrial fibrillation with RVR (Acute) - Physical Exam Vitals/I&O's: Vital Signs Temp Pulse Resp BP Pulse Ox 97.5 F L 88 18 99/58 L 95 02/26/20 09:25 02/26/20 09:34 02/26/20 09:25 02/26/20 09:25 02/26/20 09:25 Oxygen Flow Rate (L/min) 2 Oxygen Delivery Method Room Air Weight: 204 lb 6.4 oz Body Mass Index (BMI) 37.6 Finger Stick Blood Glucose 143 Intake and Output for Last 24 Hours 1102/25/20 02/26/20 23:59 23:59 23:59 Intake Total 770 / 820 517.13 / 517.13 Output Total 1900 / 2800 2450 / 2450 Balance -0 / -1979 -1931.87 / -1931.87 Microbiology Past 72 Hours 02/19/20 14:25 Blood Culture (Wb) - Anticubital Right Blood Culture - Final No growth in 5 days. 02/19/20 14:20 Blood Culture (Wb) - Right Hand Blood Culture - Final No growth in 5 days. Laboratory Results 02/26/20 04:35: Sodium 140, Potassium 3.8, Chloride 100, Carbon Dioxide 34.0 H, Anion Gap 6, BUN 35 H, Creatinine 2.54 H, Estim Creat Clear Calc 21.63, Est GFR (MDRD) Af Amer 32 L, Est GFR (MDRD) Non-Af 26 L, BUN/Creatinine Ratio 13.8, Glucose 91, Calcium 9.5 Current Medications Allopurinol (Allopurinol 300 Mg Tablet) 300 mg PO DAILY@0800 [facility] Last Admin: 02/26/20 08:21 Dose: 300 mg Documented by: Amiodarone HCl (Amiodarone 200 Mg Tablet) 200 mg PO DAILY@0800 [facility] Last Admin: 02/26/20 08:21 Dose: 200 mg Documented by: Apixaban (Apixaban 2.5 Mg Tablet) 2.5 mg PO BID [facility] Last Admin: 02/26/20 09:28 Dose: 2.5 mg Documented by: Bethanechol Chloride (Bethanechol Chloride 25 Mg Tablet) 25 mg PO BID [facility] Last Admin: 02/26/20 09:28 Dose: 25 mg Documented by: Calcitriol (Calcitriol 0.25 Mcg Capsule) 0.25 mcg PO DINNER [facility] Last Admin: 02/25/20 17:05 Dose: 0.25 mcg Documented by: Calcitriol (Calcitriol 0.25 Mcg Capsule) 0.5 mcg PO BREAKFAST [facility] Last Admin: 02/26/20 08:21 Dose: 0.5 mcg Documented by: Colchicine (Colchicine 0.6 Mg Tablet) 0.6 mg PO QODAY@1000 [facility] Last Admin: 02/26/20 09:28 Dose: 0.6 mg Documented by: Doxazosin Mesylate (Doxazosin 1 Mg Tablet) 2 mg PO QHS [facility] Last Admin: 02/25/20 21:18 Dose: 2 mg Documented by: Ergocalciferol (Ergocalciferol 50,000 Unit Capsule) 50,000 unit PO QMONTH@1000 [facility] Finasteride (Finasteride 5 Mg Tablet) 5 mg PO QHS [facility] Last Admin: 02/25/20 21:18 Dose: 5 mg Documented by: Furosemide (Furosemide 20 Mg Tablet) 60 mg PO BID@1000,1800 [facility] Last Admin: 02/26/20 09:33 Dose: 60 mg Documented by: Levothyroxine Sodium (Levothyroxine 25 Mcg Tablet) 25 mcg PO DAILY@0600 [facility] Last Admin: 02/26/20 06:19 Dose: 25 mcg Documented by: Lisinopril (Lisinopril 2.5 Mg Tablet) 2.5 mg PO DAILY [facility] Last Admin: 02/26/20 09:32 Dose: Not Given Documented by: Metoprolol Tartrate (Metoprolol Tartrate 50 Mg Tablet) 50 mg PO BID [facility] Last Admin: 02/26/20 09:34 Dose: 50 mg Documented by: Nitroglycerin (Nitroglycerin (Inpatient Use) 0.4 Mg Tab.Subl) 0.4 mg SUBLINGUAL Q5M PRN PRN Reason: CARDIAC/CHEST PAIN Ondansetron HCl (Ondansetron 4 Mg/2 Ml Vial) 4 mg IV Q8H PRN PRN PRN Reason: NAUSEA/VOMITING Potassium Chloride (Potassium Chloride 20 Meq Tablet) 40 meq PO BIDCM [facility] Last Admin: 02/26/20 08:20 Dose: 40 meq Documented by: Sodium Chloride (0.9% Saline Lock 10 Ml Syringe) 10 - 40 ml IV UD PRN PRN Reason: SALINE FLUSH Last Admin: 02/25/20 09:22 Dose: 10 ml Documented by: Discharge Diet: 8 Cup Fluid Restriciton, 2000 mg Sodium Diet Discharge Activity: Return to Normal Activity Call your doctor if you observe: Shortness of breath, Dizziness, Fainting spells, Chest pain Home Medications: Medications to take at Discharge Finasteride [Proscar] 5 mg PO QHS 04/18/15 colchicine 0.6 mg tablet 0.6 mg PO QODAY tab 01/13/18 apixaban 2.5 mg tablet 2.5 mg PO BID #180 tab 10/29/19 Allopurinol 300 mg PO DAILY 02/17/19 Ergocalciferol [Vitamin D] 50,000 unit PO QMONTH 02/17/19 lisinopril 2.5 mg tablet 2.5 mg PO DAILY #90 tab 04/10/19 Amiodarone HCl [Cordarone] 200 mg PO DAILY 02/19/20 Bethanechol Chloride 25 mg PO BID 02/19/20 Calcitriol 0.25 mcg PO DINNER 02/19/20 Calcitriol [Rocaltrol] 0.5 mcg PO BREAKFAST 02/19/20 Levothyroxine Sodium [Synthroid] 25 mcg PO DAILY 02/19/20 Doxazosin Mesylate [Cardura] 2 mg PO QHS #60 tab 02/26/20 Furosemide [Lasix] 60 mg PO BID@1000,1800 #120 tab 02/26/20 Metoprolol Tartrate [Lopressor (beta evelin)] 50 mg PO BID #60 tab 02/26/20 Potassium Chloride [K-Dur] 40 meq PO BIDCM #120 tab 02/26/20 Following Prescriptions Were Given to Patient: Doxazosin Mesylate [Cardura] 2 mg PO QHS #60 tab Transmission Status: Pending to [address] Potassium Chloride [K-Dur] 40 meq PO BIDCM #120 tab Transmission Status: Pending to [address] Furosemide [Lasix] 60 mg PO BID@1000,1800 #120 tab Transmission Status: Pending to [address] Metoprolol Tartrate [Lopressor (beta evelin)] 50 mg PO BID #60 tab Transmission Status: Pending to [address] Primary Care Physician: Vicki Trejo DO [Primary Care Provider] - Please follow up with your Primary Care Physician in: 1 Week Please Follow Up With: Jimi Greenfield MD When: As scheduled 03/05/2020 Please Follow Up With: Clinic,Wound When: 1 Week Please Follow Up With: Gonsalo Schneider MD - Nephrology When: 1 week Disposition: Home Minutes spent on discharge:: 35 Patient Condition:: Stable Medical Necessity - Tobacco Use Smoking Status: Former smoker Tobacco Use: Cigarettes Meaningful Use Info Meaningful Use Diagnoses (Choose all that apply): CHF - CHF SERAFIN/ARB ordered at discharge?: Yes Documented LVEF (%): 35
--- NOTE | 2020-02-26 11:31 | PHA.DC.MC ---
Pharmacy Service has performed discharge medication reconciliation and counseling for this patient. The patient was counseled on the following discharge medications and changes in medications for homegoing were reviewed. 1. LOPRESSOR 2. K-DUR 3. CARDURA 4. LASIX The Reason for Use, instructions for use, and potential side effects were reviewed for all new medications. The patient's questions regarding all of their medications were answered. The patient was able to verbally demonstrate an understanding of their discharge medications. Home Medications Finasteride [Proscar] 5 mg PO QHS 04/18/15 colchicine 0.6 mg tablet 0.6 mg PO QODAY tab 01/13/18 apixaban 2.5 mg tablet 2.5 mg PO BID #180 tab 01/31/19 Allopurinol 300 mg PO DAILY 02/17/19 Ergocalciferol [Vitamin D] 50,000 unit PO QMONTH 02/17/19 lisinopril 2.5 mg tablet 2.5 mg PO DAILY #90 tab 04/10/19 Amiodarone HCl [Cordarone] 200 mg PO DAILY 02/19/20 Bethanechol Chloride 25 mg PO BID 02/19/20 Calcitriol 0.25 mcg PO DINNER 02/19/20 Calcitriol [Rocaltrol] 0.5 mcg PO BREAKFAST 02/19/20 Levothyroxine Sodium [Synthroid] 25 mcg PO DAILY 02/19/20 Doxazosin Mesylate [Cardura] 2 mg PO QHS #60 tab 02/26/20 Furosemide [Lasix] 60 mg PO BID@1000,1800 #120 tab 02/26/20 Metoprolol Tartrate [Lopressor (beta evelin)] 50 mg PO BID #60 tab 02/26/20 Potassium Chloride [K-Dur] 40 meq PO BIDCM #120 tab 02/26/20 The patient's discharge medication list was reviewed for discrepancies and discrepancies were resolved.
--- NOTE | 2020-02-26 11:45 | CASEMGMT ---
This CHRISTINE GRANADO spoke with pt and pt declines need for HHC at this time. Pt is aware that once he's home, he can call PCP to set up, if necessary, voices understanding. Pt does not qualify for home oxygen at this time. Pt voices no further questions/concerns/needs at this time. Pt states just needs nurse to let him know when to have his sister come pick him up. [place] CHRISTINE GRANADO
--- NOTE | 2020-02-26 13:53 | NURSING ---
skin photo: bilateral lower legs
--- NOTE | 2020-02-27 15:16 | CASEMGMT ---
CHRISTINE GRANADO Discharge F/U Phone Call LACE: 14 Strata: 4 Discharge date: 02/26/2020 Call date: 02/27/2020 Call time: [id number] Admission dx: Acute on Chronic HF Pt states is 'doing ok' since discharge. Pt states no questions regarding d/c instructions/medications at this time. Pt is aware of f/u phone call with Dr. Trejo tomorrow. Pt states no suggestions for [facility] at this time and states 'all in all everything was pretty well done.' Pt voices no further questions/concerns/needs at this time. [place] CHRISTINE GRANADO
== END 2020-02-26 13:47 | disposition home or self-care (01) | DRG 291 ==
LOC: ED 16:17 → PCU 16:26
PROVIDERS: Family Medicine; Internal Medicine; Nurse Practitioner Family; Physician Assistant; Admitting Provider Student in an Organized Health Care Education/Training Program; Emergency Provider Emergency Medicine; PCP Internal Medicine
DX: I13.0 Hypertensive heart and chronic kidney disease with heart failure and stage 1 through stage 4 chronic kidney disease, or unspecified chronic kidney disease (principal); I50.43 Acute on chronic combined systolic (congestive) and diastolic (congestive) heart failure; I48.11 Longstanding persistent atrial fibrillation; L03.116 Cellulitis of left lower limb; N18.4 Chronic kidney disease, stage 4 (severe); N13.8 Other obstructive and reflux uropathy; E87.2 Acidosis; L97.922 Non-pressure chronic ulcer of unspecified part of left lower leg with fat layer exposed; L97.912 Non-pressure chronic ulcer of unspecified part of right lower leg with fat layer exposed; R06.89 Other abnormalities of breathing; E11.22 Type 2 diabetes mellitus with diabetic chronic kidney disease; G47.33 Obstructive sleep apnea (adult) (pediatric); E03.9 Hypothyroidism, unspecified; Z79.01 Long term (current) use of anticoagulants; I25.5 Ischemic cardiomyopathy; I25.10 Atherosclerotic heart disease of native coronary artery without angina pectoris; Z95.1 Presence of aortocoronary bypass graft; Z66 Do not resuscitate; E66.9 Obesity, unspecified; Z68.37 Body mass index [BMI] 37.0-37.9, adult; Z79.890 Hormone replacement therapy; Z79.899 Other long term (current) drug therapy; Z82.49 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 of ischemic heart disease and other diseases of the circulatory system; Z86.73 Personal history of transient ischemic attack (TIA), and cerebral infarction without residual deficits; M1A.9XX1 Chronic gout, unspecified, with tophus (tophi); E78.5 Hyperlipidemia, unspecified; I27.20 Pulmonary hypertension, unspecified; I25.2 Old myocardial infarction; N40.1 Benign prostatic hyperplasia with lower urinary tract symptoms; E80.6 Other disorders of bilirubin metabolism; Z87.891 Personal history of nicotine dependence; S81.851A Open bite, right lower leg, initial encounter; W55.01XA Bitten by cat, initial encounter
CPT/HCPCS: 36415; 71045; 76705; 80048; 80053; 81001; 82962; 83036; 83605; 83735; 83880; 84100; 84439; 84443; 84484; 85025; 85027; 85610; 85730; 87040; 87086; 93005; 93306; 97110; 97116; 97162; 97166; 97530; 97535; 97802; 99285; J7040; J7050; Q9957; A4216; C8929; J0696; J1940

== ENCOUNTER 2020-03-14 10:45 | Outpatient (RCR) | payer MEDICARE, OTHER, SELFPAY ==
[2020-02-19 17:31] VITALS: BMI 37.6
[2020-03-05 00:39] VITALS: BP 136/96; PULSE 83; RESP 18; TEMP 36.6
[2020-03-07 13:17] VITALS: BP 96/52; PULSE 80; RESP 18; TEMP 35.5; BMI 37.6
--- NOTE | 2020-03-07 15:50 | PCM.WC.PN ---
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 Status: Chronic Code(s): L97.922 - Non-pressure chronic ulcer of unspecified part of left lower leg with fat layer exposed (3) Atherosclerosis of [place] coronary artery of [place] heart without angina pectoris Status: Chronic Code(s): I25.10 - Atherosclerotic heart disease of [place] coronary artery without angina pectoris (4) Chronic combined systolic and diastolic CHF (congestive heart failure) Status: Chronic Code(s): I50.42 - Chronic combined systolic (congestive) and diastolic (congestive) heart failure (5) Essential (primary) hypertension Status: Chronic Code(s): I10 - Essential (primary) hypertension (6) Longstanding persistent atrial fibrillation Status: Chronic Code(s): I48.11 - Longstanding persistent atrial fibrillation Comment: DCCV on 02/27/2019 Type of Wound Date of Service: 03/07/20 Chief Complaint: cat bite/scratches bilateral lower extremities History of Wound: This is a 79-year-old white male who presents to the wound healing center today for complaint of bilateral lower extremity traumatic wounds are not healing, these are said to have occurred approximately 2 months ago after his cat scratched and bit his bilateral lower extremities. He has a past medical history which is significant for CHF with reduced ejection fraction, atrial fibrillation, chronic lower extremity edema, and hypertension. He initially did go to the ER on 12/12/2019 and was diagnosed with cellulitis and started on clindamycin, he states that he only tolerated the clindamycin for couple days and has since discontinued. He does note that the redness has improved, however he states that his lower extremity edema has been worsening. He was unable to be weighed today but he states that he has noted a weight gain which has been significant. He states that the swelling has traveled up to his thighs, scrotum, and abdomen from his lower extremities. He does note that his swelling has been gradually worsening over the last couple months after his gathering machine feeder cut his Lasix dosage in half. He denies any shortness of breath or orthopnea at this time. For wound care he has been utilizing [id number] antibiotic ointment and covering with gauze. He has noted a significantly large amount of drainage from his wounds that is clear. On clinical exam his shoes were actually filled with drainage from his wounds. He denies any other acute concerns at this time. All other systems reviewed and negative with exception of those listed above. Progress of Wound: Patient was recently hospitalized due to a acute on chronic CHF exacerbation. He was diuresed and also placed on oral Levaquin due to his cellulitis of his bilateral lower extremities. Patient has since completed the Levaquin and has had a 30 pound weight loss from his diuresis. He states that he is doing exceptionally well and his wounds are almost entirely healed. His left lower extremity ulcers are healed and his right lower extremity ulcer is very small. Denies any symptomatic signs of infection and denies any orthopnea or significant weight increase. - Physical Exam Vital Signs Temp Pulse Resp BP 96 F L 80 18 96/52 L 03/07/20 13:17 03/07/20 13:17 03/07/20 13:17 03/07/20 13:17 General: Alert, Oriented x3, Cooperative, No apparent distress HEENT: Atraumatic Oral: Moist Mucosa Lungs: Clear to auscultation, Normal air movement Cardiovascular: Regular rate Abdomen: Soft, Non Tender, Obese Extremities: No clubbing, No cyanosis, Edema - Generalized bilateral lower extremity edema, Peripheral Pulses Normal Skin: Ulcer/ Wound - See nursing documentation, left lower extremity ulcer is healed, right lower extremity ulcer with very small amount of adherent slough Wound Measurements and Assessment WC - Nurse 1 - General Ulcer Measurement Start: 03/07/20 13:17 Freq: Status: Active Protocol: Activity Type Activity Date Activity User E-Sign Co-Sign Detail Recorded Client Recorded Date Recorded By Document 03/07/20 13:17 [facility] [id number] 03/07/20 13:23 [facility] 03/07/20 13:17 Wound Center Nurse 1 [Ulcer Assessment] #3- R LAT BO -Combined with other wound No -Current Size (cm) - Length 0.1 -Current Size (cm) - Width 0.1 -Current Size (cm) - Depth 0.1 -Total Square Cm 0.01 -Tunneling No -Undermining/Tunneling No -Circular Undermining No -Exudate Amt None Present -Wound Margin Flat & Intact -Granulation Amt Large (67-100%) -Granulation Quality [place] -Slough/Fibrin Yes -Necrosis Amt Small (1-33%) -Necrotic Tissue Type Adherent Slough -Structure Exposed N/A -Texture (Kim-wound Skin Appearance) Assessed -Moisture (Kim-wound Skin Appearance Dry/Scaly ) -Color (Kim-wound Skin Appearance) Assessed -Temperature (Kim-wound Skin No Abnormality Appearance) (Pt Warm) -Tenderness on Palpation (Kim-wound No Skin Appearance) -Ulcer Cleansing Wound Cleanser -Foul Odor after Cleansing No -Anesthetic Used 4% Lidocaine Solution #2- R MED BO CLUSTER -Combined with other wound No -Current Size (cm) - Length 0.1 -Current Size (cm) - Width 0.1 -Current Size (cm) - Depth 0.1 -Total Square Cm 0.01 -Tunneling No -Undermining/Tunneling No -Circular Undermining No -Exudate Amt None Present -Wound Margin Flat & Intact -Granulation Amt Large (67-100%) -Granulation Quality [place] -Slough/Fibrin Yes -Necrosis Amt Small (1-33%) -Necrotic Tissue Type Adherent Slough -Structure Exposed N/A -Texture (Kim-wound Skin Appearance) Assessed -Moisture (Kim-wound Skin Appearance Dry/Scaly ) -Color (Kim-wound Skin Appearance) Assessed -Temperature (Kim-wound Skin No Abnormality Appearance) (Pt Warm) -Tenderness on Palpation (Kim-wound No Skin Appearance) -Ulcer Cleansing Wound Cleanser -Foul Odor after Cleansing No -Anesthetic Used 4% Lidocaine Solution #1- L BO -Current Size (cm) - Length 0.1 -Current Size (cm) - Width 0.1 -Current Size (cm) - Depth 0.1 -Total Square Cm 0.01 -Tunneling No -Undermining/Tunneling No -Circular Undermining No -Exudate Amt None Present -Wound Margin Flat & Intact -Granulation Amt Small (1-33%) -Granulation Quality [place] -Slough/Fibrin Yes -Necrosis Amt Small (1-33%) -Necrotic Tissue Type Adherent Slough -Structure Exposed N/A -Texture (Kim-wound Skin Appearance) Assessed -Moisture (Kim-wound Skin Appearance Dry/Scaly ) -Color (Kim-wound Skin Appearance) Assessed -Temperature (Kim-wound Skin No Abnormality Appearance) (Pt Warm) -Tenderness on Palpation (Kim-wound No Skin Appearance) -Ulcer Cleansing Wound Cleanser -Foul Odor after Cleansing No -Anesthetic Used 4% Lidocaine Solution [Edema Assessment] -Lower Limb Edema Present Yes -Right Calf (cm) 34 -Right Ankle (cm) 21 -Left Calf (cm) 38.1 -Left Ankle (cm) 28.7 WC - Nurse 2 - General Ulcer CM Notes Start: 03/07/20 13:17 Freq: Status: Active Protocol: Activity Type Activity Date Activity User E-Sign Co-Sign Detail Recorded Client Recorded Date Recorded By Document 03/07/20 13:37 MW [id number] 03/07/20 13:42 MW 03/07/20 13:37 Wound Center Nurse 2 [Procedure/Treatment] #3- R LAT BO -Time 13:39 -Correct Patient Yes -Correct Side, Site, Position Yes -Correct Procedure Yes -Procedure Performed No -Post Debridement (cm) - Length 0 -Post Debridement (cm) - Width 0 -Post Debridement (cm) - Depth 0 -Total Square (Post) (cm) 0 -Wound/Ulcer Outcome Healed- Epithelialized #2- R MED BO CLUSTER -Time 13:39 -Correct Patient Yes -Correct Side, Site, Position Yes -Correct Procedure Yes -Procedure Performed Yes -Type of Procedure Debridement -Clinical Debridement Subcutaneous -Tissue Removed Subcutaneous -Post Debridement (cm) - Length 0.5 -Post Debridement (cm) - Width 0.2 -Post Debridement (cm) - Depth 0.1 -Total Square (Post) (cm) 0.10 -Area of Debridement (cm) - Length 0.5 -Area of Debridement (cm) - Width 0.2 -Total Square (Area) (cm) 0.10 -Tunneling No -Undermining/Tunneling No -Circular Undermining No -Wound/Ulcer Outcome Not Healed -Ulcer Cleansing Rinsed/ Irrigated with Saline -Foul Odor after Cleansing No -Bioengineered Tissue No -Bleeding Controlled with Pressure -Offloading No -Treatment Response Procedure Tolerated Well -Debridement - Subq, 1st 20sq cm Yes #1- L BO -Time 13:38 -Correct Patient Yes -Correct Side, Site, Position Yes -Correct Procedure Yes -Procedure Performed No -Post Debridement (cm) - Length 0 -Post Debridement (cm) - Width 0 -Post Debridement (cm) - Depth 0 -Total Square (Post) (cm) 0 -Wound/Ulcer Outcome Healed- Epithelialized [See Physician Procedure note for Specifics] Pain Scale: 0-10 Numeric [Pain] -Is Patient Pain Free? Yes - Nurse 3 - General Ulcer D/C NN Start: 03/07/20 13:17 Freq: Status: Active Protocol: Activity Type Activity Date Activity User E-Sign Co-Sign Detail Recorded Client Recorded Date Recorded By Document 03/07/20 14:03 [facility] [id number] 03/07/20 14:04 [facility] 03/07/20 14:03 Wound Care Nurse 3 [Wound Dressing] #2- R MED BO CLUSTER -Primary Dressing Applied Other -Other Dressing UNNA BOOT [Compression Applied] BILATERAL -Multi-Layered Wrap Application Unna Boot - Bilateral ($) -Unna Boots (Bilat) ($) 1 [Post Procedure Tolerated] -Treatment Response Procedure Tolerated Well Pain Scale: 0-10 Numeric [Pain] -Is Patient Pain Free? Yes - Visit Discharge [Visit Discharge Information] -Discharge Condition Stable -Ambulatory Status Ambulatory,Cane -Transportation Private Auto Neurological: Neuro grossly intact Psych/Mental Status: Normal Affect, Appropriate, Alert and oriented to time, place, person, mood and affect Debridement Note Post-Debridement Measurements/Treatment WC - Nurse 2 - General Ulcer CM Notes Start: 03/07/20 13:17 Freq: Status: Active Protocol: Activity Type Activity Date Activity User E-Sign Co-Sign Detail Recorded Client Recorded Date Recorded By Document 03/07/20 13:37 [id number] 03/07/20 13:42 MW 03/07/20 13:37 Wound Center Nurse 2 #3- R LAT BO -Time 13:39 -Correct Patient Yes -Correct Side, Site, Position Yes -Correct Procedure Yes -Procedure Performed No -Post Debridement (cm) - Length 0 -Post Debridement (cm) - Width 0 -Post Debridement (cm) - Depth 0 -Total Square (Post) (cm) 0 -Wound/Ulcer Outcome Healed- Epithelialized #2- R MED BO CLUSTER -Time 13:39 -Correct Patient Yes -Correct Side, Site, Position Yes -Correct Procedure Yes -Procedure Performed Yes -Type of Procedure Debridement -Clinical Debridement Subcutaneous -Tissue Removed Subcutaneous -Post Debridement (cm) - Length 0.5 -Post Debridement (cm) - Width 0.2 -Post Debridement (cm) - Depth 0.1 -Total Square (Post) (cm) 0.10 -Area of Debridement (cm) - Length 0.5 -Area of Debridement (cm) - Width 0.2 -Total Square (Area) (cm) 0.10 -Tunneling No -Undermining/Tunneling No -Circular Undermining No -Wound/Ulcer Outcome Not Healed -Ulcer Cleansing Rinsed/ Irrigated with Saline -Foul Odor after Cleansing No -Bioengineered Tissue No -Bleeding Controlled with Pressure -Offloading No -Treatment Response Procedure Tolerated Well -Debridement - Subq, 1st 20sq cm Yes #1- L BO -Time 13:38 -Correct Patient Yes -Correct Side, Site, Position Yes -Correct Procedure Yes -Procedure Performed No -Post Debridement (cm) - Length 0 -Post Debridement (cm) - Width 0 -Post Debridement (cm) - Depth 0 -Total Square (Post) (cm) 0 -Wound/Ulcer Outcome Healed- Epithelialized Pain Scale: 0-10 Numeric Is Patient Pain Free? Yes - Nurse 3 - General Ulcer D/C NN Start: 03/07/20 13:17 Freq: Status: Active Protocol: Activity Type Activity Date Activity User E-Sign Co-Sign Detail Recorded Client Recorded Date Recorded By Document 03/07/20 14:03 [facility] [id number] 03/07/20 14:04 [facility] 03/07/20 14:03 Wound Care Nurse 3 #2- R MED BO CLUSTER -Primary Dressing Applied Other -Other Dressing UNNA BOOT BILATERAL -Multi-Layered Wrap Application Unna Boot - Bilateral ($) -Unna Boots (Bilat) ($) 1 Treatment Response Procedure Tolerated Well Pain Scale: 0-10 Numeric Is Patient Pain Free? Yes - Visit Discharge Discharge Condition Stable Ambulatory Status Ambulatory,Cane Transportation Private Auto Wound debrided: Lower extremity venous leg ulcer Laterality: Right Type of Debridement: Excisional debridement Anesthesia Used: 5% Lidocaine Gel Depth: in the subcutaneous layer Percentage of wound debrided: 100 Instrument Used: 3mm curette Tissue Removed: Slough and devitalized tissue Severity: Fat Layer Exposed Amount of bleeding with debridement: Mild Bleeding Controlled with: Pressure Patient tolerated procedure well Assessment/Plan Assessment: See above diagnoses Plan: The patient was seen and examined at the wound center today and was updated on the plan of care. A subcutaneous debridement was performed today. The patient tolerated the procedure well. The patients wound care will consist of: Application of lightly wrapped Unna boots for compression, do not want further compression due to his history of CHF. Baseline bloodwork reviewed. Vascular studies ordered and pending. Patient educated on the importance of diet on wound healing and instructed to increase protein and vitamin C intake. Patient verbalized understanding. Patient to continue following up with cardiology for his CHF and educated on the importance of limiting his salt intake and fluid intake and on the importance of compression and leg elevation. Discussed red flag symptoms requiring urgent medical attention. Patient will follow up at wound healing center in one week or sooner if needed. This note was generated with [employer]m dictation software. It may contain incorrect words, spelling, and punctuation that were not noted in checking the note before signing. [id number]: [id number] Lucinda subq tissue 20 sq cm/<
[2020-03-14 10:41] VITALS: RESP 18; TEMP 36.9; BMI 37.6
--- NOTE | 2020-03-14 12:01 | PCM.WC.PN ---
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 Status: Chronic Code(s): L97.922 - Non-pressure chronic ulcer of unspecified part of left lower leg with fat layer exposed (3) Atherosclerosis of [place] coronary artery of [place] heart without angina pectoris Status: Chronic Code(s): I25.10 - Atherosclerotic heart disease of [place] coronary artery without angina pectoris (4) Chronic combined systolic and diastolic CHF (congestive heart failure) Status: Chronic Code(s): I50.42 - Chronic combined systolic (congestive) and diastolic (congestive) heart failure (5) Essential (primary) hypertension Status: Chronic Code(s): I10 - Essential (primary) hypertension (6) Longstanding persistent atrial fibrillation Status: Chronic Code(s): I48.11 - Longstanding persistent atrial fibrillation Comment: D[facility] on 02/27/2019 Type of Wound Date of Service: 03/14/20 Chief Complaint: cat bite/scratches bilateral lower extremities History of Wound: This is a 79-year-old white male who presents to the wound healing center today for complaint of bilateral lower extremity traumatic wounds are not healing, these are said to have occurred approximately 2 months ago after his cat scratched and bit his bilateral lower extremities. He has a past medical history which is significant for CHF with reduced ejection fraction, atrial fibrillation, chronic lower extremity edema, and hypertension. He initially did go to the ER on 12/12/2019 and was diagnosed with cellulitis and started on clindamycin, he states that he only tolerated the clindamycin for couple days and has since discontinued. He does note that the redness has improved, however he states that his lower extremity edema has been worsening. He was unable to be weighed today but he states that he has noted a weight gain which has been significant. He states that the swelling has traveled up to his thighs, scrotum, and abdomen from his lower extremities. He does note that his swelling has been gradually worsening over the last couple months after his skoog operator cut his Lasix dosage in half. He denies any shortness of breath or orthopnea at this time. For wound care he has been utilizing [id number] antibiotic ointment and covering with gauze. He has noted a significantly large amount of drainage from his wounds that is clear. On clinical exam his shoes were actually filled with drainage from his wounds. He denies any other acute concerns at this time. All other systems reviewed and negative with exception of those listed above. Progress of Wound: Patient was recently hospitalized due to a acute on chronic CHF exacerbation. He was diuresed and also placed on oral Levaquin due to his cellulitis of his bilateral lower extremities. Patient has since completed the Levaquin and has had a 30 pound weight loss from his diuresis. He states that he is doing exceptionally well and his wounds are entirely healed. Denies any symptomatic signs of infection and denies any orthopnea or significant weight increase. - Physical Exam Vital Signs Temp Pulse Resp BP 98.5 F 80 18 96/52 L 03/14/20 10:41 03/07/20 13:17 03/14/20 10:41 03/07/20 13:17 General: Alert, Oriented x3, Cooperative, No apparent distress HEENT: Atraumatic Oral: Moist Mucosa Neck: Supple Lungs: Clear to auscultation, Normal air movement Cardiovascular: Regular rate Abdomen: Soft Extremities: No clubbing, No cyanosis, No edema Skin: Ulcer/ Wound - wounds are healed Wound Measurements and Assessment WC - Nurse 1 - General Ulcer Measurement Start: 03/07/20 13:17 Freq: Status: Discharge Protocol: Activity Type Activity Date Activity User E-Sign Co-Sign Detail Recorded Client Recorded Date Recorded By Document 03/14/20 10:41 RB [id number] 03/14/20 10:51 RB Edit Status 03/14/20 11:13 BKG DAEMON Active=>Discharge [id number] 03/14/20 11:13 BKG DAEMON 03/14/20 10:41 Wound Center Nurse 1 [Ulcer Assessment] #2- R MED BO CLUSTER -Combined with other wound No -Current Size (cm) - Length 0.1 -Current Size (cm) - Width 0.1 -Current Size (cm) - Depth 0.1 -Total Square Cm 0.01 -Epithelialization Large 67-100% -Tunneling No -Undermining/Tunneling No -Circular Undermining No -Wound Margin Flat & Intact -Granulation Amt Large (67-100%) -Granulation Quality [place] -Slough/Fibrin Yes -Necrosis Amt Small (1-33%) -Necrotic Tissue Type Adherent Slough -Structure Exposed N/A -Texture (Kim-wound Skin Appearance) Assessed, Scarring -Moisture (Kim-wound Skin Appearance Assessed ) -Color (Kim-wound Skin Appearance) Assessed -Temperature (Kim-wound Skin No Abnormality Appearance) (Pt Warm) -Tenderness on Palpation (Kim-wound No Skin Appearance) -Ulcer Cleansing Wound Cleanser -Foul Odor after Cleansing No -Anesthetic Used 4% Lidocaine Solution [Edema Assessment] -Lower Limb Edema Present Yes -Right Calf (cm) 30.5 -Right Ankle (cm) 25 -Left Calf (cm) 34.5 -Left Ankle (cm) 25 WC - Nurse 2 - General Ulcer CM Notes Start: 03/07/20 13:17 Freq: Status: Discharge Protocol: Activity Type Activity Date Activity User E-Sign Co-Sign Detail Recorded Client Recorded Date Recorded By Document 03/14/20 10:59 MW [id number] 03/14/20 11:00 MW Edit Status 03/14/20 11:13 BKG DAEMON Active=>Discharge [id number] 03/14/20 11:13 BKG DAEMON 03/14/20 10:59 Wound Center Nurse 2 [Procedure/Treatment] #2- R MED BO CLUSTER -Time 10:59 -Correct Patient Yes -Correct Side, Site, Position Yes -Correct Procedure Yes -Procedure Performed No -Post Debridement (cm) - Length 0 -Post Debridement (cm) - Width 0 -Post Debridement (cm) - Depth 0 -Total Square (Post) (cm) 0 -Wound/Ulcer Outcome Healed- Epithelialized [See Physician Procedure note for Specifics] Pain Scale: 0-10 Numeric [Pain] -Is Patient Pain Free? Yes - Nurse 3 - General Ulcer D/C NN Start: 03/07/20 13:17 Freq: Status: Discharge Protocol: Activity Type Activity Date Activity User E-Sign Co-Sign Detail Recorded Client Recorded Date Recorded By Document 03/14/20 11:06 MW [id number] 03/14/20 11:07 MW Edit Status 03/14/20 11:13 BKG DAEMON Active=>Discharge [id number] 03/14/20 11:13 BKG DAEMON 03/14/20 11:06 Wound Care Nurse 3 [Compression Applied] Right -Lotion applied to leg before No compression wrap -Tubular Bandage Single Layer -Size of Tubigrip Used Size D -Size D ($) 1 Left -Lotion applied to leg before No compression wrap -Tubular Bandage Single Layer -Size of Tubigrip Used Size D -Size D ($) 1 [Post Procedure Tolerated] -Treatment Response Procedure Tolerated Well Pain Scale: 0-10 Numeric [Pain] -Is Patient Pain Free? Yes Teaching: Wound Center [Wound Center Education] (Items with an * have Printed Materials Available- Please identify what is given to patient under the Teaching materials given to patient and caregiver Section. Discharge Instructions -Person Taught Patient -Teaching Method Discussion -Response to teaching Verbalize understanding Dressing Your Wound -Person Taught Patient -Teaching Method Discussion, Demonstration -Response to teaching Verbalize understanding WC - Visit Discharge [Visit Discharge Information] -Discharge Condition Stable -Ambulatory Status Ambulatory,Cane -Transportation Private Auto -Medication Reconcilliation completed No & provided to patient/care provider -Clinical Summary of Care Provided Yes -Notes: HEALED, DISCHARGED FROM CLINIC Neurological: Neuro grossly intact Psych/Mental Status: Normal Affect, Appropriate, Alert and oriented to time, place, person, mood and affect Debridement Note Post-Debridement Measurements/Treatment WC - Nurse 2 - General Ulcer CM Notes Start: 03/07/20 13:17 Freq: Status: Discharge Protocol: Activity Type Activity Date Activity User E-Sign Co-Sign Detail Recorded Client Recorded Date Recorded By Document 03/07/20 13:37 MW [id number] 03/07/20 13:42 MW Document 03/14/20 10:59 MW [id number] 03/14/20 11:00 MW 03/07/20 03/14/20 13:37 10:59 Wound Center Nurse 2 #3- R LAT BO -Time 13:39 -Correct Patient Yes -Correct Side, Site, Position Yes -Correct Procedure Yes -Procedure Performed No -Post Debridement (cm) - Length 0 -Post Debridement (cm) - Width 0 -Post Debridement (cm) - Depth 0 -Total Square (Post) (cm) 0 -Wound/Ulcer Outcome Healed- Epithelialized #2- R MED BO CLUSTER -Time 13:39 10:59 -Correct Patient Yes Yes -Correct Side, Site, Position Yes Yes -Correct Procedure Yes Yes -Procedure Performed Yes No -Type of Procedure Debridement -Clinical Debridement Subcutaneous -Tissue Removed Subcutaneous -Post Debridement (cm) - Length 0.5 0 -Post Debridement (cm) - Width 0.2 0 -Post Debridement (cm) - Depth 0.1 0 -Total Square (Post) (cm) 0.10 0 -Area of Debridement (cm) - Length 0.5 -Area of Debridement (cm) - Width 0.2 -Total Square (Area) (cm) 0.10 -Tunneling No -Undermining/Tunneling No -Circular Undermining No -Wound/Ulcer Outcome Not Healed Healed- Epithelialized -Ulcer Cleansing Rinsed/ Irrigated with Saline -Foul Odor after Cleansing No -Bioengineered Tissue No -Bleeding Controlled with Pressure -Offloading No -Treatment Response Procedure Tolerated Well -Debridement - Subq, 1st 20sq cm Yes #1- L BO -Time 13:38 -Correct Patient Yes -Correct Side, Site, Position Yes -Correct Procedure Yes -Procedure Performed No -Post Debridement (cm) - Length 0 -Post Debridement (cm) - Width 0 -Post Debridement (cm) - Depth 0 -Total Square (Post) (cm) 0 -Wound/Ulcer Outcome Healed- Epithelialized Pain Scale: 0-10 Numeric Is Patient Pain Free? Yes Yes WC - Nurse 3 - General Ulcer D/C NN Start: 03/07/20 13:17 Freq: Status: Discharge Protocol: Activity Type Activity Date Activity User E-Sign Co-Sign Detail Recorded Client Recorded Date Recorded By Document 03/07/20 14:03 [facility] [id number] 03/07/20 14:04 [facility] Document 03/14/20 11:06 MW [id number] 03/14/20 11:07 MW 03/07/20 03/14/20 14:03 11:06 Wound Care Nurse 3 #2- R MED BO CLUSTER -Primary Dressing Applied Other -Other Dressing UNNA BOOT Right -Lotion applied to leg before No compression wrap -Tubular Bandage Single Layer -Size of Tubigrip Used Size D -Size D ($) 1 Left -Lotion applied to leg before No compression wrap -Tubular Bandage Single Layer -Size of Tubigrip Used Size D -Size D ($) 1 BILATERAL -Multi-Layered Wrap Application Unna Boot - Bilateral ($) -Unna Boots (Bilat) ($) 1 Treatment Response Procedure Procedure Tolerated Well Tolerated Well Pain Scale: 0-10 Numeric Is Patient Pain Free? Yes Yes Teaching: Wound Center Discharge Instructions -Person Taught Patient -Teaching Method Discussion -Response to teaching Verbalize understanding Dressing Your Wound -Person Taught Patient -Teaching Method Discussion, Demonstration -Response to teaching Verbalize understanding WC - Visit Discharge Discharge Condition Stable Stable Ambulatory Status Ambulatory,Cane Ambulatory,Cane Transportation Private Auto Private Auto Medication Reconcilliation completed & No provided to patient/care provider Clinical Summary of Care Provided Yes Notes: HEALED, DISCHARGED FROM CLINIC Assessment/Plan Active Problems (Last Reviewed 03/05/20 @ 13:[address] Jimi Greenfield MD) Atherosclerosis of [place] coronary artery of [place] heart without angina pectoris (Chronic) Longstanding persistent atrial fibrillation (Chronic) 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 The patients wounds are healed. The patients wound care will consist of: Application of adaptic over recently healed wounds.Double tubigrips for compression. Baseline bloodwork reviewed. Vascular studies ordered and pending still. Patient educated on the importance of diet on wound healing and instructed to increase protein and vitamin C intake. Patient verbalized understanding. Patient to continue following up with cardiology for his CHF and educated on the importance of limiting his salt intake and fluid intake and on the importance of compression and leg elevation. Discussed red flag symptoms requiring urgent medical attention. Patient will be discharged from wound healing center and follow up if new wounds occur. This note was generated with [employer] dictation software. It may contain incorrect words, spelling, and punctuation that were not noted in checking the note before signing. Office Visits / Consults: [id number] OV L3 Est
== END 2020-03-14 11:13 | disposition home or self-care (01) ==
LOC: WC 10:45
PROVIDERS: PCP Internal Medicine; Referring Provider Internal Medicine; Visit Provider Nurse Practitioner Family
DX: L97.912 Non-pressure chronic ulcer of unspecified part of right lower leg with fat layer exposed (principal); L97.922 Non-pressure chronic ulcer of unspecified part of left lower leg with fat layer exposed; I25.10 Atherosclerotic heart disease of native coronary artery without angina pectoris; I50.42 Chronic combined systolic (congestive) and diastolic (congestive) heart failure; I11.0 Hypertensive heart disease with heart failure; I48.11 Longstanding persistent atrial fibrillation; W55.01XA Bitten by cat, initial encounter
CPT/HCPCS: 11042; 29580; 99213; G0463

== ENCOUNTER → 2020-10-31 14:24 | Outpatient (CLI) | payer MEDICARE, OTHER, SELFPAY ==
[2020-10-31 18:21] LABS: Vitamin D,25 Hydroxy 62.5 ng/mL
[2020-10-31 18:48] LABS: AST(SGOT) 20 U/L (15-37); Alanine Aminotransfer ALT/SGPT 17 U/L (16-61); Albumin, Serum 3.5 g/dL (3.2-5.0); Alkaline Phosphatase 81 U/L (45-117); Anion Gap 8 (5-15); BUN 35 mg/dL (7-18); BUN/Creat Ratio 15.8 RATIO (10-20); Calcium,Total 9.1 mg/dL (8.5-10.1); Chloride 105 mmol/L (98-107); Creatinine, Serum 2.22 mg/dL (0.70-1.30); EST Glomerular Filtration Rate 31 mL/min (>60); Est Glom Filt Rate - Afr Amer 37 mL/min (>60); Globulin 3.4 g/dL (2.2-4.2); Glucose 81 mg/dL (74-106); Potassium 4.2 mmol/L (3.5-5.1); Protein, Total 6.9 g/dL (6.4-8.2); Sodium Level 143 mmol/L (136-145)
[2020-11-01 08:13] LABS: PTHIN 48.8 pg/mL (18.4-80.1)
== END ==
PROVIDERS: PCP Internal Medicine; Referring Provider Nurse Practitioner Adult Health; Visit Provider Nurse Practitioner Adult Health
DX: E55.9 Vitamin D deficiency, unspecified (principal); E03.8 Other specified hypothyroidism; N25.81 Secondary hyperparathyroidism of renal origin
CPT/HCPCS: 36415; 80053; 82306; 83970; 84443

== ENCOUNTER → 2020-12-02 15:40 | Outpatient (CLI) | payer MEDICARE, OTHER, SELFPAY ==
[2020-12-02 18:41] LABS: Anion Gap 7 (5-15); BUN 33 mg/dL (7-18); BUN/Creat Ratio 15.2 RATIO (10-20); Calcium,Total 9.1 mg/dL (8.5-10.1); Chloride 104 mmol/L (98-107); Creatinine, Serum 2.17 mg/dL (0.70-1.30); EST Glomerular Filtration Rate 31 mL/min (>60); Est Glom Filt Rate - Afr Amer 38 mL/min (>60); Glucose 77 mg/dL (74-106); Potassium 3.7 mmol/L (3.5-5.1); Sodium Level 141 mmol/L (136-145)
[2020-12-02 18:49] LABS: Vitamin D,25 Hydroxy 63.1 ng/mL
[2020-12-02 18:51] LABS: Protein, Urine (Random) 11.6 mg/dL (<11.9); Protein:Creat Ratio 184 mg/g CRE (0-200)
[2020-12-02 18:55] LABS: Color, Urine Yellow (Yellow); Glucose, Dipstick Normal (Normal); Ketone-Dipstick Negative (Negative); Leukocyte Esterase-Dipstick Negative /ul (Negative); Nitrite-Dipstick Negative (Negative); Occult Blood-Urine Negative /ul (Negative); Protein-Dipstick Negative (Negative); Urine Bilirubin Dipstick Negative (Negative); Urine Clarity Sl. Cloudy (Clear); Urine Urobilinogen Normal (Normal); Urine pH 6.5 (5.0 - 8.0)
[2020-12-03 08:31] LABS: PTHIN 47.8 pg/mL (18.4-80.1)
== END ==
PROVIDERS: PCP Internal Medicine; Referring Provider Internal Medicine; Visit Provider Internal Medicine
DX: N18.30 Chronic kidney disease, stage 3 unspecified (principal)
CPT/HCPCS: 36415; 80048; 81002; 82306; 82570; 83970; 84100; 84156

== ENCOUNTER 2021-03-18 16:31 | Outpatient (CLI) | payer MEDICARE, OTHER, SELFPAY ==
[2021-03-18 14:12] LABS: Hematocrit 40.7 % (40-54); Hemoglobin 12.6 g/dL (13.0-16.5); Mean Corpuscular Hgb 30.6 pg (27.0-32.0); Mean Corpuscular Volume 98.8 fL (80-94); Mean Platelet Vol. 11.2 fl (6.2-12.0); Platelet Count 154 K/mm3 (150-450); RBC Distribution Width CV 14.9 % (11.6-14.6); RBC Distribution Width SD 53.7 fl (35.1-43.9); Red Blood Count 4.12 M/mm3 (4.6-6.2); White Blood Count 8.8 K/mm3 (4.4-11.0)
[2021-03-18 14:43] LABS: Anion Gap 6 (5-15); BUN 31 mg/dL (7-18); BUN/Creat Ratio 13.3 RATIO (10-20); Calcium,Total 10.5 mg/dL (8.5-10.1); Chloride 106 mmol/L (98-107); Creatinine, Serum 2.33 mg/dL (0.70-1.30); EST Glomerular Filtration Rate 29 mL/min (>60); Est Glom Filt Rate - Afr Amer 35 mL/min (>60); Glucose 94 mg/dL (74-106); Potassium 4.1 mmol/L (3.5-5.1); Sodium Level 141 mmol/L (136-145); Thyroid Stim Hormone (TSH) 3.22 uIU/mL (0.358-3.74)
[2021-03-19 07:30] VITALS: BP 99/67; PULSE 90; RESP 18; TEMP 36.6; O2SAT 96; BMI 32.1
[2021-03-19] MEDS: Lactated Ringers 1,000 ML 15 ML IV (07:40)
== END 2021-03-18 23:59 | disposition home or self-care (01) ==
LOC: AC 03-19 06:48 → PAT 04-21 16:32
PROVIDERS: Anesthesiology; PCP Internal Medicine; Referring Provider Urology; Visit Provider Urology
DX: Z01.812 Encounter for preprocedural laboratory examination (principal); Z20.822 Contact with and (suspected) exposure to COVID-19; Z01.818 Encounter for other preprocedural examination
CPT/HCPCS: 36415; 80048; 84443; 85027; 87426; C9803; J7120